=== PATIENT | male | born 1950 | race Caucasian/White ===

== ENCOUNTER 2016-09-09 06:20 | Emergency (ER) | payer MEDICARE ==
[2016-09-09] MEDS ORDERED: RX INFO: IV CONTRAST WAS GIVEN 1 EACH MISC MISCELLANE PRN (07:46)
[2016-09-09] MEDS ORDERED: SODIUM CHLORIDE 0.9% 1,000 ML IV STA ×3 (07:46→10:16)
[2016-09-09] MEDS ORDERED: MORPHINE SULFATE 4 MG/ML SYRINGE IV STA (07:46)
--- NOTE | 2016-09-09 07:58 | ED ---
General Adult HPI - General Chief complaint: Abdominal Pain Stated complaint: Male Time Seen by Provider: 09/09/16 07:19 Source: patient, RN notes reviewed, old records reviewed Mode of arrival: wheelchair Limitations: no limitations - History of Present Illness Initial comments: This is a 66 male to the ED co abdominal pain, anterior and right groin pain, patient has difficulty with urination and bowel movements at this time, no surgiccal or prostate history, history of normal colonoscopy -: days(s) (2) Location: abdomen, pelvis Radiation: flank (l) Severity scale (1-10): 6 Quality: aching, sharp Consistency: constant Improves with: none Worsens with: eating Associated Symptoms: loss of appetite, nausea/vomiting Treatments Prior to Arrival: none - Related Data Home Medications Medication Instructions Recorded Confirmed Aspirin 325 mg PO DAILY 03/09/14 09/09/16 Fenofibrate 160 mg PO HS 03/09/14 09/09/16 Nadolol [Corgard] 20 mg PO BID 03/09/14 09/09/16 Nitroglycerin Sl Tabs [Nitrostat] 0.4 mg SUBLINGUAL Q5M PRN 03/09/14 09/09/16 Omeprazole [PriLOSEC] 20 mg PO HS 03/09/14 09/09/16 Zolpidem [Ambien] 5 mg PO HS PRN 12/10/14 09/09/16 amLODIPine [Norvasc] 2.5 mg PO DAILY 12/10/14 09/09/16 Atorvastatin [Lipitor] 80 mg PO HS 05/08/15 09/09/16 Fluticasone/Salmeterol [Advair 1 puff INHALATION RT-BID 05/08/15 09/09/16 250-50 Diskus] Pramipexole Di-HCl [Mirapex] 1 mg PO HS 05/08/15 09/09/16 Furosemide [Lasix] 40 mg PO DAILY@1830 09/09/16 09/09/16 Furosemide [Lasix] 80 mg PO QAM 09/09/16 09/09/16 Ipratropium-Albuterol Nebulize 3 ml INHALATION RT-QID 09/09/16 09/09/16 [Duoneb 0.5 mg-3 mg/3 ml Soln] methylPREDNISolone [Medrol] 4 mg PO DAILY 09/09/16 09/09/16 Allergies Allergy/AdvReac Type Severity Reaction Status Date / Time prednisone AdvReac "MADE ME Verified 09/09/16 07:48 VERY ANGRY" Review of Systems ROS Statement: Those systems with pertinent positive or pertinent negative responses have been documented in the HPI. ROS Other: All systems not noted in ROS Statement are negative. Past Medical History Past Medical History: Coronary Artery Disease (CAD), COPD, GERD/Reflux, Hyperlipidemia, Hypertension, Osteoarthritis (OA) Additional Past Medical History / Comment(s): STATES WAS TOLD FROM MRI SMALL VESSEL DX. History of Any Multi-Drug Resistant Organisms: None Reported Past Surgical History: Back Surgery, Heart Catheterization With Stent, Joint Replacement, Orthopedic Surgery Additional Past Surgical History / Comment(s): TOTAL LEFT KNEE, FELIPE KNEE ARTHROSCOPY, rt shoulder replacement, HEART STENT X3, Past Anesthesia/Blood Transfusion Reactions: No Reported Reaction Additional Past Anesthesia/Blood Transfusion Reaction / Comment(s): STATES "HAD A HARD TIME WITH BREATHING POST OP" Date of Last Stent Placement:: 2009 Past Psychological History: No Psychological Hx Reported Smoking Status: Former smoker - Past Family History Father Family Medical History: CVA/TIA, Hyperlipidemia, Hypertension Mother Family Medical History: Hypertension General Exam Limitations: no limitations General appearance: alert, in no apparent distress Head exam: Present: atraumatic, normocephalic, normal inspection Eye exam: Present: normal appearance, PERRL, EOMI. Absent: scleral icterus, conjunctival injection, periorbital swelling ENT exam: Present: normal exam, mucous membranes moist Neck exam: Present: normal inspection. Absent: tenderness, meningismus, lymphadenopathy Respiratory exam: Present: normal lung sounds bilaterally. Absent: respiratory distress, wheezes, rales, rhonchi, stridor Cardiovascular Exam: Present: regular rate, normal rhythm, normal heart sounds. Absent: systolic murmur, diastolic murmur, rubs, gallop, clicks GI/Abdominal exam: Present: soft, distended, tenderness, normal bowel sounds. Absent: guarding, rebound, rigid Extremities exam: Present: normal inspection, full ROM, normal capillary refill. Absent: tenderness, pedal edema, joint swelling, calf tenderness Back exam: Present: normal inspection Neurological exam: Present: alert, oriented X3, CN II-XII intact Psychiatric exam: Present: normal affect, normal mood Skin exam: Present: warm, dry, intact, normal color. Absent: rash Course Vital Signs 09/09/16 09/09/16 06:24 09:32 Temperature 97.0 F L 97.7 F Pulse Rate 55 L 63 Respiratory 20 20 Rate Blood Pressure 123/61 123/65 O2 Sat by Pulse 93 L 94 L Oximetry Medical Decision Making - Medical Decision Making 66 LDR for evaluation of bowel pain, severe urinary retention, likely prostate issues, patient doesn't for placed with good urinary output. Patient will be given a bowel regimen to help with constipation secondary to urinary retention and patient can be discharged home - Lab Data Result diagrams: 09/09/16 08:05 09/09/16 08:05 Lab Results 09/09/16 09/09/16 09/09/16 Range/Units 08:05 08:05 08:05 WBC 12.9 H (3.8-10.6) k/uL RBC 4.32 (4.30-5.90) m/uL Hgb 13.7 (13.0-17.5) gm/dL Hct 41.9 (39.0-53.0) % MCV 97.0 (80.0-100.0) fL MCH 31.8 (25.0-35.0) pg MCHC 32.7 (31.0-37.0) g/dL RDW 13.5 (11.5-15.5) % Plt Count 213 (150-450) k/uL Neutrophils % 77 % Lymphocytes % 15 % Monocytes % 5 % Eosinophils % 1 % Basophils % 0 % Neutrophils # 10.0 H (1.3-7.7) k/uL Lymphocytes # 1.9 (1.0-4.8) k/uL Monocytes # 0.7 (0-1.0) k/uL Eosinophils # 0.1 (0-0.7) k/uL Basophils # 0.0 (0-0.2) k/uL Sodium 135 L (137-145) mmol/L Potassium 4.0 (3.5-5.1) mmol/L Chloride 94 L (98-107) mmol/L Carbon Dioxide 31 H (22-30) mmol/L Anion Gap 10 mmol/L BUN 32 H (9-20) mg/dL Creatinine 0.94 (0.66-1.25) mg/dL Est GFR (MDRD) Af Amer >60 (>60 ml/min/1.73 sqM) Est GFR (MDRD) Non-Af >60 (>60 ml/min/1.73 sqM) Glucose 173 H (74-99) mg/dL Calcium 9.0 (8.4-10.2) mg/dL Total Bilirubin 1.0 (0.2-1.3) mg/dL AST 34 (17-59) U/L ALT 46 (21-72) U/L Alkaline Phosphatase 76 (38-126) U/L Total Creatine Kinase 109 (55-170) U/L CK-MB (CK-2) 2.0 (0.0-2.4) ng/mL CK-MB (CK-2) Rel Index 1.8 Troponin I <0.012 (0.000-0.034) ng/mL Total Protein 6.6 (6.3-8.2) g/dL Albumin 3.8 (3.5-5.0) g/dL Amylase 44 (30-110) U/L Lipase 132 (23-300) U/L Urine Color Urine Appearance (Clear) Urine pH (5.0-8.0) Ur Specific [place] (1.001-1.035) Urine Protein (Negative) Urine Glucose (UA) (Negative) Urine Ketones (Negative) Urine Blood (Negative) Urine Nitrite (Negative) Urine Bilirubin (Negative) Urine Urobilinogen (<2.0) mg/dL Ur Leukocyte Esterase (Negative) 09/09/16 Range/Units 08:20 WBC (3.8-10.6) k/uL RBC (4.30-5.90) m/uL Hgb (13.0-17.5) gm/dL Hct (39.0-53.0) % MCV (80.0-100.0) fL MCH (25.0-35.0) pg MCHC (31.0-37.0) g/dL RDW (11.5-15.5) % Plt Count (150-450) k/uL Neutrophils % % Lymphocytes % % Monocytes % % Eosinophils % % Basophils % % Neutrophils # (1.3-7.7) k/uL Lymphocytes # (1.0-4.8) k/uL Monocytes # (0-1.0) k/uL Eosinophils # (0-0.7) k/uL Basophils # (0-0.2) k/uL Sodium (137-145) mmol/L Potassium (3.5-5.1) mmol/L Chloride (98-107) mmol/L Carbon Dioxide (22-30) mmol/L Anion Gap mmol/L BUN (9-20) mg/dL Creatinine (0.66-1.25) mg/dL Est GFR (MDRD) Af Amer (>60 ml/min/1.73 sqM) Est GFR (MDRD) Non-Af (>60 ml/min/1.73 sqM) Glucose (74-99) mg/dL Calcium (8.4-10.2) mg/dL Total Bilirubin (0.2-1.3) mg/dL AST (17-59) U/L ALT (21-72) U/L Alkaline Phosphatase (38-126) U/L Total Creatine Kinase (55-170) U/L CK-MB (CK-2) (0.0-2.4) ng/mL CK-MB (CK-2) Rel Index Troponin I (0.000-0.034) ng/mL Total Protein (6.3-8.2) g/dL Albumin (3.5-5.0) g/dL Amylase (30-110) U/L Lipase (23-300) U/L Urine Color Light Yellow Urine Appearance Clear (Clear) Urine pH 7.0 (5.0-8.0) Ur Specific [place] 1.008 (1.001-1.035) Urine Protein Negative (Negative) Urine Glucose (UA) Negative (Negative) Urine Ketones Negative (Negative) Urine Blood Negative (Negative) Urine Nitrite Negative (Negative) Urine Bilirubin Negative (Negative) Urine Urobilinogen <2.0 (<2.0) mg/dL Ur Leukocyte Esterase Negative (Negative) - Radiology Data Radiology results: report reviewed (CT pelvis is significant for significantly distended bladder and constipation due to bladder intrusion), image reviewed Disposition Clinical Impression: Abdominal pain, Urinary retention, Constipation Disposition: HOME SELF-CARE Condition: Good Instructions: Urinary Retention in Men (ED) Referrals: Rk Keene III, MD [Primary Care Provider] - 1-2 days
[2016-09-09 08:22] LABS: Basophils % (A) 0 %; CH 32.9; Eosinophils # (A) 0.1 k/uL (0-0.7); Eosinophils % (A) 1 %; HCT 41.9 % (39.0-53.0); HDW 2.48; HGB 13.7 gm/dL (13.0-17.5); Luc # (Auto) 0.17; Luc % (Auto) 1; Lymphocytes # (A) 1.9 k/uL (1.0-4.8); Lymphocytes % (A) 15 %; MCH 31.8 pg (25.0-35.0); MCHC 32.7 g/dL (31.0-37.0); Mean Platelet Volume 9.6; Monocytes # (A) 0.7 k/uL (0-1.0); Monocytes % (A) 5 %; Neutrophils % (A) 77 %; RBC 4.32 m/uL (4.30-5.90); RDW 13.5 % (11.5-15.5); WBC 12.9 k/uL (3.8-10.6); WBC (Perox) 12.78
[2016-09-09 08:31] LABS: Appearance,Urine Clear (Clear); Bilirubin,Urine Negative (Negative); Glucose,Urine (UA) Negative (Negative); Ketones,Urine Negative (Negative); Leukocyte Esterase,Urine Negative (Negative); Nitrite,Urine Negative (Negative); Protein,Urine Negative (Negative); Specific Gravity,Urine 1.008 (1.001-1.035); UA Billing (MACRO vs. MICRO) CHEM; Urobilinogen,Urine <2.0 mg/dL (<2.0)
[2016-09-09 08:39] LABS: ALT 46 U/L (21-72); AST 34 U/L (17-59); Alkaline Phosphatase 76 U/L (38-126); Amylase 44 U/L (30-110); Anion Gap 10 mmol/L; Blood Urea Nitrogen 32 mg/dL (9-20); Carbon Dioxide 31 mmol/L (22-30); Chloride 94 mmol/L (98-107); Glucose 173 mg/dL (74-99); Non-African American GFR(MDRD) >60 (>60 ml/min/1.73 sqM); Sodium 135 mmol/L (137-145); Total Protein 6.6 g/dL (6.3-8.2)
[2016-09-09 08:44] LABS: Creatine Kinase 109 U/L (55-170)
[2016-09-09 08:57] LABS: Troponin I <0.012 ng/mL (0.000-0.034)
--- NOTE | 2016-09-09 09:39 | CT ---
EXAMINATION TYPE: CT abdomen pelvis w con DATE OF EXAM: 09/09/2016 COMPARISON: NONE HISTORY: Dysuria, constipation, pain CT DLP: 3125.1 mGycm Automated exposure control for dose reduction was used. CONTRAST: CT scan of the abdomen pelvis is performed with IV Contrast, patient injected with 100 mL of Omnipaqu e 300. FINDINGS- LUNG BASES-subsegmental linear changes involving the lung bases most typical of atelectasis. LIVER/GB-reduced attenuation of the liver compatible with fatty infiltration. No gallstones. PANCREAS- No gross abnormality is seen. SPLEEN- No gross abnormality is seen. ADRENALS- No gross abnormality is seen. KIDNEYS/BLADDER- no hydronephrosis nephrolithiasis or renal mass. Bladder is distended. BOWEL-extensive retained fecal debris throughout the colon correlate for constipation. Diverticulosis with no CT evidence of diverticulitis. Appendix normal. LYMPH NODES- No greater than 1cm abdominal or pelvic lymph nodes areappreciated. OSSEOUS STRUCTURES-degenerative changes spine with multilevel vacuum disc seen. OTHER- fat-containing periumbilical hernia. IMPRESSION- 1. Extensive retained fecal debris throughout the colon correlate for constipation. 2. Bladder is distended correlate clinically.
[2016-09-09] MEDS ORDERED: SENNOSIDES-DOCUSATE SODIUM 1 EACH TAB PO STA (10:15)
[2016-09-09] MEDS ORDERED: GLYCERIN ADULT SUPPOSITORY 1 EACH RECTAL STA (10:15)
[2016-09-09] MEDS ORDERED: MAGNESIUM CITRATE 296 ML BOTTLE PO ONE (10:15)
[2016-09-09 11:17] VITALS: BP 109/60; PULSE 62; RESP 16; TEMP 97
[2016-09-10 21:58] LABS: Hemoglobin A1C 9.7 % (4.2-6.1)
== END 2016-09-09 11:49 | disposition home or self-care (01) ==
LOC: EC 06:20
DX: K59.00 Constipation, unspecified (principal); R33.9 Retention of urine, unspecified; N32.89 Other specified disorders of bladder; R11.2 Nausea with vomiting, unspecified; R63.0 Anorexia; R10.2 Pelvic and perineal pain; E78.5 Hyperlipidemia, unspecified; I10 Essential (primary) hypertension; I25.10 Atherosclerotic heart disease of native coronary artery without angina pectoris; K21.9 Gastro-esophageal reflux disease without esophagitis; J44.9 Chronic obstructive pulmonary disease, unspecified; M19.90 Unspecified osteoarthritis, unspecified site; Z87.891 Personal history of nicotine dependence; Z79.82 Long term (current) use of aspirin; Z79.51 Long term (current) use of inhaled steroids; Z79.52 Long term (current) use of systemic steroids; Z79.899 Other long term (current) drug therapy; Z88.8 Allergy status to other drugs, medicaments and biological substances
CPT/HCPCS: 36415; 80053; 82150; 83036; 82550; 82553; 83690; 84484; 85025; 81003; 87086; 74177; 99285; 96374; 96361 ×3; J2270; Q9967

== ENCOUNTER → 2016-09-18 | Outpatient (CLI) | payer MEDICARE ==
[2016-09-18 10:14] LABS: CH 32.2; CHCM 33.5; HCT 45.6 % (39.0-53.0); HGB 14.8 gm/dL (13.0-17.5); MCH 31.4 pg (25.0-35.0); MCHC 32.5 g/dL (31.0-37.0); MCV 96.6 fL (80.0-100.0); Mean Platelet Volume 9.5; RBC 4.72 m/uL (4.30-5.90); RDW 13.2 % (11.5-15.5); WBC 11.9 k/uL (3.8-10.6)
[2016-09-18 10:26] LABS: Anion Gap 14 mmol/L; Blood Urea Nitrogen 38 mg/dL (9-20); Calcium 9.4 mg/dL (8.4-10.2); Carbon Dioxide 29 mmol/L (22-30); Chloride 96 mmol/L (98-107); Glucose 198 mg/dL (74-99); Non-African American GFR(MDRD) >60 (>60 ml/min/1.73 sqM); Potassium 4.1 mmol/L (3.5-5.1); Sodium 139 mmol/L (137-145)
== END | disposition home or self-care (01) ==
LOC: LABWHC1 09:43
PROVIDERS: ATTEND Internal Medicine Interventional Cardiology
DX: N18.9 Chronic kidney disease, unspecified (principal)
CPT/HCPCS: 36415; 80048; 85027

== ENCOUNTER 2016-09-22 14:02 | Inpatient (IN) | payer MEDICARE ==
--- NOTE | 2016-09-22 14:13 | ED ---
General Adult HPI - General Stated complaint: heart palpitations Time Seen by Provider: 09/22/16 14:02 Source: RN notes reviewed - History of Present Illness Initial comments: This is a 66-year-old male with a past medical history significant for coronary artery stenting hypertension high cholesterol. Patient also has COPD. Patient comes in today complaining of not feeling well over the last 3 days. Patient states occasionally gets palpitations. Patient states she also occasionally short of breath. Patient states he usually wakes up in the middle the night feels like he can't catch his breath but shortly thereafter he is able to breathe fine. Patient states his biggest problem is just extremely weak and feels like he has no inpatient. Patient denies any cough patient denies any recent fever chills. Patient denies abdominal pain patient denies nausea vomiting diarrhea. Patient denies lightheadedness dizziness or near syncopal episode. Patient's friend came with him and stated that she thought his heart rate was in the 30s and that was her reason for bringing him in. - Related Data Home Medications Medication Instructions Recorded Confirmed Aspirin 325 mg PO DAILY 03/09/14 09/22/16 Fenofibrate 160 mg PO HS 03/09/14 09/22/16 Nadolol [Corgard] 20 mg PO BID 03/09/14 09/22/16 Nitroglycerin Sl Tabs [Nitrostat] 0.4 mg SUBLINGUAL Q5M PRN 03/09/14 09/22/16 Omeprazole [PriLOSEC] 20 mg PO HS 03/09/14 09/22/16 Zolpidem [Ambien] 5 mg PO HS PRN 12/10/14 09/22/16 amLODIPine [Norvasc] 2.5 mg PO DAILY 12/10/14 09/22/16 Atorvastatin [Lipitor] 80 mg PO DAILY 05/08/15 09/22/16 Fluticasone/Salmeterol [Advair 1 puff INHALATION RT-BID 05/08/15 09/22/16 250-50 Diskus] Pramipexole Di-HCl [Mirapex] 1 mg PO HS 05/08/15 09/22/16 Ipratropium-Albuterol Nebulize 3 ml INHALATION RT-QID 09/09/16 09/22/16 [Duoneb 0.5 mg-3 mg/3 ml Soln] methylPREDNISolone [Medrol] 4 mg PO DAILY 09/09/16 09/22/16 Furosemide [Lasix] 80 mg PO BID 09/22/16 09/22/16 Methocarbamol [Robaxin] 750 mg PO Q8H PRN 09/22/16 09/22/16 Metolazone [Zaroxolyn] 5 mg PO HS 09/22/16 09/22/16 Polyethylene Glycol 3350 [Miralax] 17 gm PO DAILY PRN 09/22/16 09/22/16 Allergies Allergy/AdvReac Type Severity Reaction Status Date / Time prednisone AdvReac "MADE ME Verified 09/22/16 14:43 VERY ANGRY" Review of Systems ROS Statement: Those systems with pertinent positive or pertinent negative responses have been documented in the HPI. ROS Other: All systems not noted in ROS Statement are negative. Past Medical History Past Medical History: Coronary Artery Disease (CAD), COPD, GERD/Reflux, Hyperlipidemia, Hypertension, Osteoarthritis (OA) Additional Past Medical History / Comment(s): STATES WAS TOLD FROM MRI SMALL VESSEL DX. History of Any Multi-Drug Resistant Organisms: None Reported Past Surgical History: Back Surgery, Heart Catheterization With Stent, Joint Replacement, Orthopedic Surgery Additional Past Surgical History / Comment(s): TOTAL LEFT KNEE, FELIPE KNEE ARTHROSCOPY, rt shoulder replacement, HEART STENT X3, Past Anesthesia/Blood Transfusion Reactions: No Reported Reaction Additional Past Anesthesia/Blood Transfusion Reaction / Comment(s): STATES "HAD A HARD TIME WITH BREATHING POST OP" Date of Last Stent Placement:: 2009 Past Psychological History: No Psychological Hx Reported Smoking Status: Former smoker - Past Family History Father Family Medical History: CVA/TIA, Hyperlipidemia, Hypertension Mother Family Medical History: Hypertension General Exam - General Exam Comments Initial Comments: GENERAL: Patient is well-developed and well-nourished. Patient is nontoxic and well- hydrated and is in mild distress. ENT: Neck is soft and supple. No significant lymphadenopathy is noted. Oropharynx is clear. Moist mucous membranes. Neck has full range of motion without eliciting any pain. EYES: The sclera were anicteric and conjunctiva were pink and moist. Extraocular movements were intact and pupils were equal round and reactive to light. Eyelids were unremarkable. PULMONARY: Unlabored respirations. Good breath sounds bilaterally. No audible rales rhonchi or wheezing was noted. CARDIOVASCULAR: There is a regular rate and rhythm without any murmurs gallops or rubs. ABDOMEN: Soft and nontender with normal bowel sounds. No palpable organomegaly was noted. There is no palpable pulsatile mass. SKIN: Skin is clear with no lesions or rashes and otherwise unremarkable. NEUROLOGIC: Patient is alert and oriented x3. Cranial nerves II through XII are grossly intact. Motor and sensory are also intact. Normal speech, volume and content. Symmetrical smile. MUSCULOSKELETAL: Normal extremities with adequate strength and full range of motion. 1+ edema bilaterally LYMPHATICS: No significant lymphadenopathy is noted PSYCHIATRIC: Normal psychiatric evaluation. Normal interpersonal interactions appears functionally intact in deals appropriately with others. No signs of depression. No signs of anxiety. Course Vital Signs 09/22/16 09/22/16 09/22/16 14:13 14:15 15:20 Temperature 97.4 F L Pulse Rate 61 60 Pulse Rate [ 60 Right Radial] Respiratory 18 18 Rate Blood Pressure 155/77 155/77 O2 Sat by Pulse 93 L 96 Oximetry Medical Decision Making - Medical Decision Making EKG shows normal sinus rhythm at 61 bpm [place] interval is 140 QRS is 114 QT interval 470 QTC is 89 year patient's EKG shows no ST segment elevation or depression Chest x-ray showed no acute abnormality. Patient potassium 2.5. I given 10 of KCl IV and 40 Of Queenie Dur by mouth. I spoke with Dr. Huertas he agreed to admit the patient admitted the patient I wrote admitting orders - Lab Data Result diagrams: 09/22/16 14:18 09/22/16 14:18 Lab Results 09/22/16 09/22/16 09/22/16 Range/Units 14:18 14:18 14:18 WBC 11.9 H (3.8-10.6) k/uL RBC 4.81 (4.30-5.90) m/uL Hgb 15.4 (13.0-17.5) gm/dL Hct 43.9 (39.0-53.0) % MCV 91.3 D (80.0-100.0) fL MCH 32.0 (25.0-35.0) pg MCHC 35.0 (31.0-37.0) g/dL RDW 13.2 (11.5-15.5) % Plt Count 209 (150-450) k/uL Neutrophils % 70 % Lymphocytes % 21 % Monocytes % 6 % Eosinophils % 1 % Basophils % 1 % Neutrophils # 8.3 H (1.3-7.7) k/uL Lymphocytes # 2.6 (1.0-4.8) k/uL Monocytes # 0.7 (0-1.0) k/uL Eosinophils # 0.1 (0-0.7) k/uL Basophils # 0.1 (0-0.2) k/uL PT (9.0-12.0) sec INR (<1.1) APTT (22.0-30.0) sec Sodium 130 L (137-145) mmol/L Potassium 2.5 L* (3.5-5.1) mmol/L Chloride 80 L* (98-107) mmol/L Carbon Dioxide 35 H (22-30) mmol/L Anion Gap 15 mmol/L BUN 81 H* (9-20) mg/dL Creatinine 1.34 H (0.66-1.25) mg/dL Est GFR (MDRD) Af Amer >60 (>60 ml/min/1.73 sqM) Est GFR (MDRD) Non-Af 53 (>60 ml/min/1.73 sqM) Glucose 340 H (74-99) mg/dL Calcium 9.5 (8.4-10.2) mg/dL Total Bilirubin 1.0 (0.2-1.3) mg/dL AST 32 (17-59) U/L ALT 50 (21-72) U/L Alkaline Phosphatase 70 (38-126) U/L Total Creatine Kinase 58 (55-170) U/L CK-MB (CK-2) 1.0 (0.0-2.4) ng/mL CK-MB (CK-2) Rel Index 1.7 Troponin I <0.012 (0.000-0.034) ng/mL NT-Pro-B Natriuret Pep pg/mL Total Protein 7.2 (6.3-8.2) g/dL Albumin 4.2 (3.5-5.0) g/dL 09/22/16 09/22/16 Range/Units 14:18 14:18 WBC (3.8-10.6) k/uL RBC (4.30-5.90) m/uL Hgb (13.0-17.5) gm/dL Hct (39.0-53.0) % MCV (80.0-100.0) fL MCH (25.0-35.0) pg MCHC (31.0-37.0) g/dL RDW (11.5-15.5) % Plt Count (150-450) k/uL Neutrophils % % Lymphocytes % % Monocytes % % Eosinophils % % Basophils % % Neutrophils # (1.3-7.7) k/uL Lymphocytes # (1.0-4.8) k/uL Monocytes # (0-1.0) k/uL Eosinophils # (0-0.7) k/uL Basophils # (0-0.2) k/uL PT 10.6 (9.0-12.0) sec INR 1.0 (<1.1) APTT 19.3 L (22.0-30.0) sec Sodium (137-145) mmol/L Potassium (3.5-5.1) mmol/L Chloride (98-107) mmol/L Carbon Dioxide (22-30) mmol/L Anion Gap mmol/L BUN (9-20) mg/dL Creatinine (0.66-1.25) mg/dL Est GFR (MDRD) Af Amer (>60 ml/min/1.73 sqM) Est GFR (MDRD) Non-Af (>60 ml/min/1.73 sqM) Glucose (74-99) mg/dL Calcium (8.4-10.2) mg/dL Total Bilirubin (0.2-1.3) mg/dL AST (17-59) U/L ALT (21-72) U/L Alkaline Phosphatase (38-126) U/L Total Creatine Kinase (55-170) U/L CK-MB (CK-2) (0.0-2.4) ng/mL CK-MB (CK-2) Rel Index Troponin I (0.000-0.034) ng/mL NT-Pro-B Natriuret Pep 310 pg/mL Total Protein (6.3-8.2) g/dL Albumin (3.5-5.0) g/dL Disposition Clinical Impression: Palpitations, Hypokalemia, Weakness Disposition: ADMITTED IP TO THIS HOSP Referrals: Rk Keene III, MD [Primary Care Provider] - 1-2 days Time of Disposition: 15:33
[2016-09-22 14:37] LABS: Basophils # (A) 0.1 k/uL (0-0.2); Basophils % (A) 1 %; CH 32.8; CHCM 36.1; Eosinophils # (A) 0.1 k/uL (0-0.7); Eosinophils % (A) 1 %; HCT 43.9 % (39.0-53.0); HDW 2.62; HGB 15.4 gm/dL (13.0-17.5); Luc # (Auto) 0.16; Luc % (Auto) 1; Lymphocytes # (A) 2.6 k/uL (1.0-4.8); Lymphocytes % (A) 21 %; Mean Platelet Volume 10.5; Monocytes # (A) 0.7 k/uL (0-1.0); Monocytes % (A) 6 %; Neutrophils # (A) 8.3 k/uL (1.3-7.7); Neutrophils % (A) 70 %; RBC 4.81 m/uL (4.30-5.90); RDW 13.2 % (11.5-15.5); WBC 11.9 k/uL (3.8-10.6); WBC (Perox) 11.46
[2016-09-22 14:43] LABS: MCV 91.3 fL (80.0-100.0)
[2016-09-22 14:48] LABS: ALT 50 U/L (21-72); AST 32 U/L (17-59); Alkaline Phosphatase 70 U/L (38-126); Anion Gap 15 mmol/L; Calcium 9.5 mg/dL (8.4-10.2); Carbon Dioxide 35 mmol/L (22-30); Glucose 340 mg/dL (74-99); Non-African American GFR(MDRD) 53 (>60 ml/min/1.73 sqM); Prothrombin Time 10.6 sec (9.0-12.0); Sodium 130 mmol/L (137-145); Total Protein 7.2 g/dL (6.3-8.2)
[2016-09-22 14:52] LABS: Potassium 2.5 mmol/L (3.5-5.1)
[2016-09-22 14:53] LABS: Blood Urea Nitrogen 81 mg/dL (9-20); Chloride 80 mmol/L (98-107)
[2016-09-22] MEDS ORDERED: POTASSIUM CHLORIDE ER 20 MEQ TAB.ER PO STA (14:55)
[2016-09-22 14:57] LABS: Creatine Kinase 58 U/L (55-170)
--- NOTE | 2016-09-22 14:59 | XR ---
EXAMINATION TYPE: XR chest 2V DATE OF EXAM: 09/22/2016 COMPARISON: 01/26/2016 HISTORY: Shortness of breath TECHNIQUE: Frontal and lateral views of the chest are obtained. FINDINGS: Scattered senescent parenchymal changes noted. Hyperinflation compatible with COPD. No evidence for infiltrate. Linear atelectasis identified in the lateral projection in the region of the lingula or right middle lobe. Heart size is stable. Mediastinal structures are stable and grossly unremarkable. No evidence for hilar prominence. Degenerative changes dorsal spine. IMPRESSION: 1. No evidence for acute pulmonary disease.
[2016-09-22 15:03] LABS: Partial Thromboplastin Time 19.3 sec (22.0-30.0)
[2016-09-22] MEDS ORDERED: POTASSIUM CHLORIDE 10 MEQ in WATER FOR INJECTION 1 100ML.BAG IVPB STA (15:06)
[2016-09-22] MEDS ORDERED: POTASSIUM CHLORIDE 10 MEQ, LIDOCAINE 2% INJ 10 MG in SODIUM CHLORIDE 0.9% 100 ML IVPB STA (15:08)
[2016-09-22 15:10] LABS: Troponin I <0.012 ng/mL (0.000-0.034)
[2016-09-22 17:00] LABS: Glucose,Whole Blood 227 mg/dL (75-99)
[2016-09-22] MEDS ORDERED: NITROGLYCERIN SL TABS 0.4 MG TAB SUBLINGUAL PRN (17:42)
[2016-09-22] MEDS ORDERED: ZOLPIDEM 5 MG TAB PO PRN (17:42)
[2016-09-22] MEDS ORDERED: METHOCARBAMOL 750 MG TAB PO PRN (17:42)
[2016-09-22] MEDS ORDERED: IPRATROPIUM-ALBUTEROL 3 ML NEB INHALATION PRN (17:49)
[2016-09-22] MEDS ORDERED: Magnesium Replacement Protocol 1 EACH MISC MISCELLANE PRN (17:51)
[2016-09-22] MEDS ORDERED: Potassium Replacement Protocol 1 EACH MISC MISCELLANE PRN ×2 (17:51→20:08)
[2016-09-22] MEDS: SYMBICORT 80-4.5 MCG INHALER INHALATION SCH (19:31)
[2016-09-22] MEDS: IPRATROPIUM-ALBUTEROL 3 ML NEB INHALATION SCH (19:31)
[2016-09-22 19:43] LABS: Magnesium 1.9 mg/dL (1.6-2.3)
[2016-09-22 19:52] LABS: Potassium 2.7 mmol/L (3.5-5.1)
[2016-09-22] MEDS ORDERED: POTASSIUM CHLORIDE 10 MEQ in WATER FOR INJECTION 1 100ML.BAG IVPB SCH (20:30)
[2016-09-22 20:38] LABS: Hemoglobin A1C 9.9 % (4.2-6.1)
[2016-09-22] MEDS: INSULIN LISPRO (humaLOG) 300 UNIT/3 ML VIAL SQ SCH (20:52)
[2016-09-22] MEDS: NADOLOL 20 MG TAB PO SCH (20:53)
[2016-09-22] MEDS: PANTOPRAZOLE 40 MG TABLET PO SCH (20:53)
[2016-09-22] MEDS: PRAMIPEXOLE 1 MG TAB PO SCH (20:53)
[2016-09-22] MEDS: FENOFIBRATE 160 MG TAB PO SCH (20:53)
[2016-09-22 21:01] LABS: Glucose,Whole Blood 304 mg/dL (75-99)
[2016-09-22] MEDS: POTASSIUM CHLORIDE 10 MEQ, LIDOCAINE 2% INJ 10 MG in SODIUM CHLORIDE 0.9% 100 ML IV SCH ×3 (21:27→23:28)
[2016-09-23 01:06] LABS: Glucose,Whole Blood 275 mg/dL (75-99)
[2016-09-23] MEDS ORDERED: POTASSIUM CHLORIDE ER 20 MEQ TAB.ER PO STA (01:51)
[2016-09-23] MEDS: POTASSIUM CHLORIDE 20 MEQ, LIDOCAINE 2% INJ 20 MG in SODIUM CHLORIDE 0.9% 100 ML IVPB SCH ×2 (02:30→04:06)
[2016-09-23 03:49] LABS: Appearance,Urine Clear (Clear); Bilirubin,Urine Negative (Negative); Glucose,Urine (UA) Negative (Negative); Ketones,Urine Negative (Negative); Leukocyte Esterase,Urine Negative (Negative); Nitrite,Urine Negative (Negative); PH, Urine 6.5 (5.0-8.0); Protein,Urine Negative (Negative); Specific Gravity,Urine 1.009 (1.001-1.035); UA Billing (MACRO vs. MICRO) CHEM; Urobilinogen,Urine <2.0 mg/dL (<2.0)
[2016-09-23] MEDS ORDERED: Potassium Replacement Protocol 1 EACH MISC MISCELLANE PRN (04:00)
[2016-09-23] MEDS: POTASSIUM CHLORIDE ER 20 MEQ TAB.ER PO SCH ×8 (04:06→12:32)
[2016-09-23 05:56] LABS: Glucose,Whole Blood 192 mg/dL (75-99)
[2016-09-23 06:19] LABS: Anion Gap 11 mmol/L; Blood Urea Nitrogen 71 mg/dL (9-20); Calcium 9.4 mg/dL (8.4-10.2); Carbon Dioxide 37 mmol/L (22-30); Chloride 86 mmol/L (98-107); Glucose 194 mg/dL (74-99); Magnesium 2.1 mg/dL (1.6-2.3); Non-African American GFR(MDRD) >60 (>60 ml/min/1.73 sqM); Sodium 134 mmol/L (137-145)
[2016-09-23 06:28] LABS: Basophils # (A) 0.1 k/uL (0-0.2); Basophils % (A) 1 %; CH 32.1; CHCM 34.9; Eosinophils # (A) 0.2 k/uL (0-0.7); Eosinophils % (A) 1 %; HDW 2.63; HGB 14.5 gm/dL (13.0-17.5); Large Platelets Flag Slight; Luc # (Auto) 0.25; Luc % (Auto) 3; Lymphocytes # (A) 2.5 k/uL (1.0-4.8); Lymphocytes % (A) 25 %; MCH 32.6 pg (25.0-35.0); MCHC 35.3 g/dL (31.0-37.0); MCV 92.3 fL (80.0-100.0); Mean Platelet Volume 10.1; Monocytes # (A) 0.6 k/uL (0-1.0); Monocytes % (A) 6 %; Neutrophils # (A) 6.5 k/uL (1.3-7.7); Neutrophils % (A) 65 %; RBC 4.44 m/uL (4.30-5.90); RDW 12.7 % (11.5-15.5); WBC 10.1 k/uL (3.8-10.6); WBC (Perox) 10.74
[2016-09-23 06:53] LABS: Potassium 2.9 mmol/L (3.5-5.1)
[2016-09-23] MEDS: INSULIN LISPRO (humaLOG) 300 UNIT/3 ML VIAL SQ SCH ×4 (07:07→21:06)
[2016-09-23] MEDS: NADOLOL 20 MG TAB PO SCH ×2 (08:02→21:06)
[2016-09-23] MEDS: amLODIPine 2.5 MG TAB PO SCH (08:02)
[2016-09-23] MEDS: ASPIRIN 325 MG TAB PO SCH (08:02)
[2016-09-23] MEDS: ATORVASTATIN 80 MG TAB PO SCH (08:03)
[2016-09-23] MEDS: IPRATROPIUM-ALBUTEROL 3 ML NEB INHALATION SCH ×4 (08:04→20:19)
[2016-09-23] MEDS: SYMBICORT 80-4.5 MCG INHALER INHALATION SCH ×2 (08:04→20:19)
[2016-09-23 10:36] VITALS: BMI 36.1
[2016-09-23 11:53] LABS: Glucose,Whole Blood 229 mg/dL (75-99)
[2016-09-23] MEDS ORDERED: POTASSIUM CHLORIDE ER 20 MEQ TAB.ER PO ONE (13:00)
[2016-09-23] MEDS ORDERED: traMADol 50 MG TAB PO PRN (13:14)
[2016-09-23] MEDS ORDERED: traMADol 50 MG TAB PO SCH (16:00)
[2016-09-23 17:02] LABS: Glucose,Whole Blood 174 mg/dL (75-99)
[2016-09-23 20:31] LABS: Glucose,Whole Blood 253 mg/dL (75-99)
[2016-09-23] MEDS: FENOFIBRATE 160 MG TAB PO SCH (21:06)
[2016-09-23] MEDS: PANTOPRAZOLE 40 MG TABLET PO SCH (21:06)
[2016-09-23] MEDS: PRAMIPEXOLE 1 MG TAB PO SCH (21:06)
[2016-09-24 06:16] LABS: Glucose,Whole Blood 239 mg/dL (75-99)
[2016-09-24] MEDS: INSULIN LISPRO (humaLOG) 300 UNIT/3 ML VIAL SQ SCH ×4 (06:38→21:11)
[2016-09-24] MEDS: ASPIRIN 325 MG TAB PO SCH (08:09)
[2016-09-24] MEDS: NADOLOL 20 MG TAB PO SCH ×2 (08:09→21:10)
[2016-09-24] MEDS: ATORVASTATIN 80 MG TAB PO SCH (08:09)
[2016-09-24] MEDS: amLODIPine 2.5 MG TAB PO SCH (08:09)
[2016-09-24] MEDS: SYMBICORT 80-4.5 MCG INHALER INHALATION SCH ×2 (08:21→19:46)
[2016-09-24] MEDS: IPRATROPIUM-ALBUTEROL 3 ML NEB INHALATION SCH ×4 (08:21→19:46)
[2016-09-24 10:37] LABS: ALT 69 U/L (21-72); AST 39 U/L (17-59); Alkaline Phosphatase 59 U/L (38-126); Anion Gap 11 mmol/L; Blood Urea Nitrogen 44 mg/dL (9-20); Calcium 9.5 mg/dL (8.4-10.2); Carbon Dioxide 32 mmol/L (22-30); Chloride 92 mmol/L (98-107); Glucose 276 mg/dL (74-99); Magnesium 1.8 mg/dL (1.6-2.3); Non-African American GFR(MDRD) >60 (>60 ml/min/1.73 sqM); Potassium 3.1 mmol/L (3.5-5.1); Sodium 135 mmol/L (137-145); Total Bilirubin 0.9 mg/dL (0.2-1.3); Total Protein 6.5 g/dL (6.3-8.2)
[2016-09-24 11:56] LABS: Glucose,Whole Blood 346 mg/dL (75-99)
[2016-09-24] MEDS: POTASSIUM CHLORIDE ER 20 MEQ TAB.ER PO SCH ×2 (12:00→13:05)
[2016-09-24] MEDS ORDERED: INSULIN GLARGINE 100 UNIT/ML 10 ML VIAL SQ ONE (12:09)
[2016-09-24] MEDS: FUROSEMIDE 40 MG TAB PO SCH (16:29)
[2016-09-24 16:47] LABS: Glucose,Whole Blood 268 mg/dL (75-99)
[2016-09-24] MEDS ORDERED: POTASSIUM CHLORIDE ER 20 MEQ TAB.ER PO SCH (19:00)
[2016-09-24] MEDS ORDERED: INSULIN GLARGINE 100 UNIT/ML 10 ML VIAL SQ SCH (21:00)
[2016-09-24 21:07] LABS: Glucose,Whole Blood 232 mg/dL (75-99)
[2016-09-24] MEDS: PRAMIPEXOLE 1 MG TAB PO SCH (21:10)
[2016-09-24] MEDS: PANTOPRAZOLE 40 MG TABLET PO SCH (21:10)
[2016-09-24] MEDS: FENOFIBRATE 160 MG TAB PO SCH (21:10)
[2016-09-25] MEDS: POTASSIUM CHLORIDE ER 20 MEQ TAB.ER PO SCH ×4 (01:22→09:58)
[2016-09-25 04:25] VITALS: TEMP 97.1
[2016-09-25 05:50] LABS: Glucose,Whole Blood 139 mg/dL (75-99)
[2016-09-25 06:45] LABS: Glucose,Whole Blood 138 mg/dL (75-99)
[2016-09-25] MEDS: INSULIN LISPRO (humaLOG) 300 UNIT/3 ML VIAL SQ SCH ×3 (07:05→17:15)
[2016-09-25 07:57] LABS: CH 32.2; CHCM 35.3; HCT 43.2 % (39.0-53.0); HDW 2.69; HGB 15.3 gm/dL (13.0-17.5); Large Platelets Flag Slight; MCH 32.5 pg (25.0-35.0); MCHC 35.5 g/dL (31.0-37.0); MCV 91.8 fL (80.0-100.0); RBC 4.71 m/uL (4.30-5.90); RDW 13.2 % (11.5-15.5); WBC 10.6 k/uL (3.8-10.6)
[2016-09-25 08:03] LABS: ALT 54 U/L (21-72); AST 42 U/L (17-59); Alkaline Phosphatase 61 U/L (38-126); Anion Gap 11 mmol/L; Blood Urea Nitrogen 38 mg/dL (9-20); Calcium 9.3 mg/dL (8.4-10.2); Carbon Dioxide 31 mmol/L (22-30); Chloride 95 mmol/L (98-107); Glucose 164 mg/dL (74-99); Magnesium 1.6 mg/dL (1.6-2.3); Non-African American GFR(MDRD) >60 (>60 ml/min/1.73 sqM); Potassium 3.3 mmol/L (3.5-5.1); Sodium 137 mmol/L (137-145); Total Bilirubin 0.8 mg/dL (0.2-1.3); Total Protein 7.1 g/dL (6.3-8.2)
[2016-09-25] MEDS: IPRATROPIUM-ALBUTEROL 3 ML NEB INHALATION SCH ×3 (08:05→15:34)
[2016-09-25] MEDS: SYMBICORT 80-4.5 MCG INHALER INHALATION SCH (08:05)
[2016-09-25] MEDS: ASPIRIN 325 MG TAB PO SCH (08:43)
[2016-09-25] MEDS: NADOLOL 20 MG TAB PO SCH (08:43)
[2016-09-25] MEDS: amLODIPine 2.5 MG TAB PO SCH (08:43)
[2016-09-25] MEDS: ATORVASTATIN 80 MG TAB PO SCH (08:43)
[2016-09-25] MEDS: FUROSEMIDE 40 MG TAB PO SCH ×2 (08:43→15:37)
[2016-09-25] MEDS: MAGNESIUM SULFATE-D5W PMX 1 GM in DEXTROSE/WATER 1 100ML.BAG IVPB SCH ×2 (08:44→09:58)
[2016-09-25 12:09] LABS: Glucose,Whole Blood 215 mg/dL (75-99)
[2016-09-25] MEDS ORDERED: POTASSIUM CHLORIDE ER 20 MEQ TAB.ER PO SCH (13:00)
[2016-09-25 15:39] VITALS: BP 128/68; RESP 16
[2016-09-25 16:18] VITALS: PULSE 80
[2016-09-25 16:58] LABS: Glucose,Whole Blood 237 mg/dL (75-99)
--- NOTE | 2016-09-25 22:14 | DS ---
FINAL DIAGNOSES: 1. Severe hypokalemia with electrolyte imbalance and weakness. 2. Palpitations, improved. 3. Hypokalemia. 4. Diabetes mellitus, type 2, new onset, uncontrolled. 5. History of coronary artery disease. 6. History of congestive heart failure with chronic diastolic dysfunction, possibly. 7. History of chronic obstructive pulmonary disease. 8. History of gastroesophageal reflux disease. 9. Hypertension, essential. 10. Hyperlipidemia. 11. History of degenerative joint disease. 12. Multiple complex medical issues. DISCHARGE DISPOSITION: The patient will be discharged in stable condition with guarded prognosis. Total time taken 35 minutes. HISTORY OF PRESENT ILLNESS: This 66-year-old gentleman with a past medical history of multiple medical problems, being followed by Dr. Keene in the outpatient setting, presented with severe hypokalemia. Potassium was supplemented; 2.9 improved to 3.3 and 3.6. The patient also had uncontrolled blood sugars. Hemoglobin A1c was 9.9. At this time, Lantus insulin was recommended with monitoring of blood sugar levels closely in the outpatient setting. On exam, vitals are stable. CARDIOVASCULAR: S1, S2 muffled. RESPIRATORY: Breath sounds diminished at the bases. No rhonchi. No crackles. ABDOMEN: Soft. NERVOUS SYSTEM: No focal deficit. DISCHARGE ADVICE AND MEDICATIONS: 1. Diet is consistent-carb. 2. Activity limited until followup. 3. Diabetic education is being arranged. 4. Accu-Cheks before meals and at bedtime; results to Dr. Keene. 5. Norvasc 2.5 mg daily. 6. Aspirin 325 mg daily. 7. Lipitor 80 mg daily. 8. Fenofibrate 160 mg at bedtime. 9. Advair 1 puff b.i.d. 10. Lasix 40 mg p.o. b.i.d. Please note changed dose. 11. Lantus 30 units subcutaneously at bedtime; hold if Accu-Chek less than 120. 12. Albuterol Atrovent updrafts q.i.d. and p.r.n. 13. Robaxin 750 mg p.o. q.8 p.r.n. 14. Medrol 4 mg p.o. daily. 15. Zaroxolyn 5 mg p.o. at bedtime. 16. Corgard 20 mg p.o. b.i.d. 17. Nitrostat 0.4 sublingually p.r.n. 18. Prilosec 20 mg p.o. at bedtime. 19. Miralax 17 grams daily. 20. K-Dur 40 mEq p.o. b.i.d. Adjust the dosage in the outpatient setting. 21. Mirapex 1 mg p.o. at bedtime. 22. Ambien 5 mg p.o. at bedtime p.r.n. Once again, the patient will be discharged in stable condition with guarded prognosis. MTDD
== END 2016-09-25 18:47 | disposition home or self-care (01) | DRG 641 ==
LOC: EC 14:02 → 6SEL 15:43 → OBSVTOIN 15:43 → INTOOBSV 15:43 → 6SEL 09-25 04:21
PROVIDERS: ADMIT Hospitalist; ATTEND Hospitalist
DX: E87.6 Hypokalemia (principal); I50.32 Chronic diastolic (congestive) heart failure; J44.9 Chronic obstructive pulmonary disease, unspecified; I11.0 Hypertensive heart disease with heart failure; E11.65 Type 2 diabetes mellitus with hyperglycemia; K21.9 Gastro-esophageal reflux disease without esophagitis; E78.5 Hyperlipidemia, unspecified; R53.1 Weakness; R00.2 Palpitations; M19.90 Unspecified osteoarthritis, unspecified site; E78.00 Pure hypercholesterolemia, unspecified; I25.10 Atherosclerotic heart disease of native coronary artery without angina pectoris; Z87.891 Personal history of nicotine dependence; Z82.49 Family history of ischemic heart disease and other diseases of the circulatory system; Z96.611 Presence of right artificial shoulder joint; Z95.5 Presence of coronary angioplasty implant and graft; Z79.899 Other long term (current) drug therapy; Z79.82 Long term (current) use of aspirin; Z79.51 Long term (current) use of inhaled steroids; Z88.8 Allergy status to other drugs, medicaments and biological substances; Z86.69 Personal history of other diseases of the nervous system and sense organs; Z82.3 Family history of stroke; Z96.652 Presence of left artificial knee joint; Z71.3 Dietary counseling and surveillance; Z79.52 Long term (current) use of systemic steroids
CPT/HCPCS: 36415; 71020; 80048; 80053; 81003; 82550; 82553; 83036; 83735; 83880; 84132; 84484; 85025; 85027; 85610; 85730; 93005; 94640; 94760; 96365; 99285

== ENCOUNTER 2016-10-09 14:07 | Emergency (ER) | payer MEDICARE ==
--- NOTE | 2016-10-09 14:22 | ED ---
General Adult HPI - General Chief complaint: Weakness Stated complaint: Weakness Time Seen by Provider: 10/09/16 14:21 Source: patient, RN notes reviewed, old records reviewed Mode of arrival: ambulatory Limitations: no limitations - History of Present Illness Initial comments: This is a 66-year-old male the ER for evaluation of severe weakness, fatigue, not feeling well. Going on 2 days of not feeling well. Patient has significant heart history. States he has currently significant weight loss about 20 pounds, taking diuretics. She denies chest pain denies shortness of breath no fevers. Patient states he was losing weight appropriate feeling better but the last 2 days and getting worse - Related Data Home Medications Medication Instructions Recorded Confirmed Aspirin 325 mg PO DAILY 03/09/14 10/09/16 Fenofibrate 160 mg PO HS 03/09/14 10/09/16 Nadolol [Corgard] 20 mg PO BID 03/09/14 10/09/16 Nitroglycerin Sl Tabs [Nitrostat] 0.4 mg SUBLINGUAL Q5M PRN 03/09/14 10/09/16 Omeprazole [PriLOSEC] 20 mg PO HS 03/09/14 10/09/16 Zolpidem [Ambien] 5 mg PO HS PRN 12/10/14 10/09/16 Atorvastatin [Lipitor] 80 mg PO DAILY 05/08/15 10/09/16 Fluticasone/Salmeterol [Advair 1 puff INHALATION RT-BID 05/08/15 10/09/16 250-50 Diskus] Pramipexole Di-HCl [Mirapex] 1 mg PO HS 05/08/15 10/09/16 Ipratropium-Albuterol Nebulize 3 ml INHALATION RT-QID 09/09/16 10/09/16 [Duoneb 0.5 mg-3 mg/3 ml Soln] methylPREDNISolone [Medrol] 4 mg PO DAILY 09/09/16 10/09/16 Methocarbamol [Robaxin] 750 mg PO Q8H PRN 09/22/16 10/09/16 Metolazone [Zaroxolyn] 5 mg PO HS 09/22/16 10/09/16 Polyethylene Glycol 3350 [Miralax] 17 gm PO DAILY PRN 09/22/16 10/09/16 Furosemide [Lasix] 80 mg PO BID@0900,1600 10/09/16 10/09/16 Glimepiride [Amaryl] 2 mg PO AC-BRKFST 10/09/16 10/09/16 Tamsulosin HCl [Flomax] 0.4 mg PO DAILY 10/09/16 10/09/16 Previous Rx's Medication Instructions Recorded Insulin Glargine [Lantus] 30 unit SQ HS #1 vial 09/25/16 Potassium Chloride ER [K-Dur 20] 40 meq PO BID #60 tab 09/25/16 Allergies Allergy/AdvReac Type Severity Reaction Status Date / Time prednisone AdvReac "MADE ME Verified 10/09/16 14:42 VERY ANGRY" Review of Systems ROS Statement: Those systems with pertinent positive or pertinent negative responses have been documented in the HPI. ROS Other: All systems not noted in ROS Statement are negative. Past Medical History Past Medical History: Coronary Artery Disease (CAD), Chest Pain / Angina, Heart Failure, COPD, GERD/Reflux, Hyperlipidemia, Hypertension, Osteoarthritis (OA), Prostate Disorder Additional Past Medical History / Comment(s): MINI STROKES - MRI DONE AT [facility] SHOWS SMALL VESSEL DX. SLEEP APNEA- OCTOBER 07 APPOINTMENT FOR OVERNIGHT SLEEP STUDY History of Any Multi-Drug Resistant Organisms: None Reported Past Surgical History: Back Surgery, Heart Catheterization With Stent, Joint Replacement, Orthopedic Surgery Additional Past Surgical History / Comment(s): TOTAL LEFT KNEE, FELIPE KNEE ARTHROSCOPY, rt shoulder replacement, HEART STENT X3, Past Anesthesia/Blood Transfusion Reactions: No Reported Reaction Additional Past Anesthesia/Blood Transfusion Reaction / Comment(s): STATES "HAD A HARD TIME WITH BREATHING POST OP" Date of Last Stent Placement:: 2009 Past Psychological History: No Psychological Hx Reported Smoking Status: Former smoker - Past Family History Father Family Medical History: CVA/TIA, Hyperlipidemia, Hypertension Mother Family Medical History: Hypertension General Exam Limitations: no limitations Course Vital Signs 10/09/16 10/09/16 10/09/16 14:13 14:30 15:00 Temperature 97.1 F L Pulse Rate 69 65 64 Respiratory 16 20 20 Rate Blood Pressure 114/59 108/60 110/58 O2 Sat by Pulse 93 L 93 L 96 Oximetry 10/09/16 15:25 Temperature Pulse Rate 60 Respiratory 18 Rate Blood Pressure 103/56 O2 Sat by Pulse 94 L Oximetry EKG Findings - EKG Comments: EKG Findings:: EKG shows sinus rhythm rate of 67, LA 132, QRS 114, QTC 581 Medical Decision Making - Medical Decision Making This is a 66 mL the ER for evaluation of weakness, patient is dispensing overdiuresis of Lasix, low potassium. Patient had potassium replacement here in emergency room, put on supplementation and follow up with Dr. Harrison cardiology in his office tomorrow - Lab Data Result diagrams: 10/09/16 14:35 10/09/16 14:35 Lab Results 10/09/16 10/09/16 10/09/16 Range/Units 14:35 14:35 14:35 WBC 11.3 H (3.8-10.6) k/uL RBC 4.66 (4.30-5.90) m/uL Hgb 15.1 (13.0-17.5) gm/dL Hct 41.7 (39.0-53.0) % MCV 89.4 (80.0-100.0) fL MCH 32.3 (25.0-35.0) pg MCHC 36.1 (31.0-37.0) g/dL RDW 13.0 (11.5-15.5) % Plt Count 220 (150-450) k/uL Neutrophils % 69 % Lymphocytes % 22 % Monocytes % 5 % Eosinophils % 1 % Basophils % 1 % Neutrophils # 7.8 H (1.3-7.7) k/uL Lymphocytes # 2.5 (1.0-4.8) k/uL Monocytes # 0.6 (0-1.0) k/uL Eosinophils # 0.1 (0-0.7) k/uL Basophils # 0.1 (0-0.2) k/uL PT 11.0 (9.0-12.0) sec INR 1.1 (<1.2) APTT 19.3 L (22.0-30.0) sec Sodium 135 L (137-145) mmol/L Potassium 2.5 L* (3.5-5.1) mmol/L Chloride 88 L (98-107) mmol/L Carbon Dioxide 32 H (22-30) mmol/L Anion Gap 15 mmol/L BUN 91 H* (9-20) mg/dL Creatinine 1.93 H (0.66-1.25) mg/dL Est GFR (MDRD) Af Amer 42 (>60 ml/min/1.73 sqM) Est GFR (MDRD) Non-Af 35 (>60 ml/min/1.73 sqM) Glucose 203 H (74-99) mg/dL Calcium 9.4 (8.4-10.2) mg/dL Phosphorus 3.7 (2.5-4.5) mg/dL Magnesium 1.7 (1.6-2.3) mg/dL Total Bilirubin 0.5 (0.2-1.3) mg/dL AST 48 (17-59) U/L ALT 62 (21-72) U/L Alkaline Phosphatase 73 (38-126) U/L Total Protein 7.0 (6.3-8.2) g/dL Albumin 4.3 (3.5-5.0) g/dL - Radiology Data Radiology results: report reviewed (Chest x-ray is negative for acute disease), image reviewed Disposition Clinical Impression: Hypokalemia, Weakness Disposition: HOME SELF-CARE Condition: Good Instructions: Hypokalemia (ED) Referrals: Rk Keene III, MD [Primary Care Provider] - 1-2 days
[2016-10-09 14:55] LABS: Basophils # (A) 0.1 k/uL (0-0.2); Basophils % (A) 1 %; Eosinophils # (A) 0.1 k/uL (0-0.7); Eosinophils % (A) 1 %; HCT 41.7 % (39.0-53.0); HDW 2.94; HGB 15.1 gm/dL (13.0-17.5); Luc # (Auto) 0.19; Luc % (Auto) 2; Lymphocytes # (A) 2.5 k/uL (1.0-4.8); Lymphocytes % (A) 22 %; MCH 32.3 pg (25.0-35.0); MCHC 36.1 g/dL (31.0-37.0); MCV 89.4 fL (80.0-100.0); Mean Platelet Volume 9.9; Monocytes # (A) 0.6 k/uL (0-1.0); Monocytes % (A) 5 %; Neutrophils # (A) 7.8 k/uL (1.3-7.7); Neutrophils % (A) 69 %; RBC 4.66 m/uL (4.30-5.90); WBC 11.3 k/uL (3.8-10.6); WBC (Perox) 11.11
[2016-10-09 15:05] LABS: INR 1.1 (<1.2)
[2016-10-09 15:07] LABS: Calcium 9.4 mg/dL (8.4-10.2); Magnesium 1.7 mg/dL (1.6-2.3); Phosphorous 3.7 mg/dL (2.5-4.5); Total Bilirubin 0.5 mg/dL (0.2-1.3)
--- NOTE | 2016-10-09 15:11 | XR ---
EXAMINATION TYPE: XR chest 2V DATE OF EXAM: 10/09/2016 COMPARISON: Chest x-ray September 22, 2016. HISTORY: Weakness. TECHNIQUE: Frontal and lateral views of the chest are obtained. FINDINGS: There is chronic parenchymal change with left basilar scarring. There is no new focal air space opacity, pleural effusion, or pneumothorax seen. The cardiac silhouette size remains within no rmal limits with atherosclerotic thoracic aorta. Right paratracheal fullness is stable from 2015 pre sumed benign. The osseous structures are demineralized. Metallic hardware right shoulder surgery is p artially imaged. IMPRESSION: Chronic changes without acute pulmonary process. No significant change from most recent chest x-ray.
[2016-10-09 15:14] LABS: Potassium 2.5 mmol/L (3.5-5.1)
[2016-10-09] MEDS ORDERED: SODIUM CHLORIDE 0.9% 1,000 ML IV STA (15:17)
[2016-10-09] MEDS ORDERED: POTASSIUM BICARB-CITRIC ACID 25 MEQ TABLET.EFF PO STA (15:17)
[2016-10-09] MEDS ORDERED: SODIUM CHLORIDE 0.9% 500 ML IV STA (15:17)
[2016-10-09 15:21] LABS: Partial Thromboplastin Time 19.3 sec (22.0-30.0)
[2016-10-09 15:23] LABS: Creatine Kinase MB 1.4 ng/mL (0.0-2.4); Troponin I 0.013 ng/mL (0.000-0.034)
[2016-10-09] MEDS ORDERED: NITROGLYCERIN SL TABS 0.4 MG TAB SUBLINGUAL PRN (15:25)
[2016-10-09] MEDS ORDERED: POTASSIUM CHLORIDE ER 20 MEQ TAB.ER PO STA (15:30)
[2016-10-09] MEDS ORDERED: SODIUM CHLORIDE 0.9% 1,000 ML IV SCH (15:30)
[2016-10-09] MEDS ORDERED: POTASSIUM CHLORIDE 20 MEQ, LIDOCAINE 2% INJ 20 MG in SODIUM CHLORIDE 0.9% 100 ML IVPB SCH (16:00)
[2016-10-09 17:56] VITALS: BP 108/60; PULSE 55; RESP 19; TEMP 97.2
[2016-10-10] MEDS ORDERED: ENOXAPARIN 40 MG/0.4 ML SYRINGE SQ SCH (09:00)
[2016-10-10] MEDS ORDERED: ASPIRIN 325 MG TAB PO SCH (09:00)
== END 2016-10-09 17:56 | disposition home or self-care (01) ==
LOC: EC 14:07
DX: E87.6 Hypokalemia (principal); R53.1 Weakness; K21.9 Gastro-esophageal reflux disease without esophagitis; E78.5 Hyperlipidemia, unspecified; M19.90 Unspecified osteoarthritis, unspecified site; I11.0 Hypertensive heart disease with heart failure; I50.9 Heart failure, unspecified; I25.10 Atherosclerotic heart disease of native coronary artery without angina pectoris; Z86.73 Personal history of transient ischemic attack (TIA), and cerebral infarction without residual deficits; Z87.891 Personal history of nicotine dependence; Z79.52 Long term (current) use of systemic steroids; Z79.82 Long term (current) use of aspirin; Z79.84 Long term (current) use of oral hypoglycemic drugs; Z79.899 Other long term (current) drug therapy; Z88.6 Allergy status to analgesic agent
CPT/HCPCS: 99285; 96365; 96366; 96361 ×2; 36415; 93005; 83880; 80053; 82550; 82553; 83735; 84100; 84484; 85025; 85610; 85730; 71020; J2001; J3480

== ENCOUNTER → 2016-10-21 | Outpatient (CLI) | payer MEDICARE | END | disposition home or self-care (01) | LOC: LABWHC1 07:10 | PROVIDERS: ATTEND Internal Medicine Interventional Cardiology | DX: Z53.9 Procedure and treatment not carried out, unspecified reason (principal) ==

== ENCOUNTER → 2016-11-27 | Outpatient (CLI) | payer MEDICARE ==
[2016-11-27 09:57] LABS: Anion Gap 12 mmol/L; Blood Urea Nitrogen 28 mg/dL (9-20); Calcium 9.1 mg/dL (8.4-10.2); Carbon Dioxide 28 mmol/L (22-30); Chloride 103 mmol/L (98-107); Glucose 66 mg/dL (74-99); Non-African American GFR(MDRD) >60 (>60 ml/min/1.73 sqM); Potassium 4.2 mmol/L (3.5-5.1); Sodium 143 mmol/L (137-145)
[2016-11-27 10:25] LABS: CH 30.7; CHCM 32.1; HCT 43.5 % (39.0-53.0); HDW 2.56; HGB 14.2 gm/dL (13.0-17.5); MCH 31.4 pg (25.0-35.0); MCHC 32.6 g/dL (31.0-37.0); Mean Platelet Volume 9.8; RBC 4.52 m/uL (4.30-5.90); RDW 13.4 % (11.5-15.5); WBC 12.7 k/uL (3.8-10.6)
[2016-11-27 10:30] LABS: MCV 96.1 fL (80.0-100.0)
== END | disposition home or self-care (01) ==
LOC: LABWHC1 09:01
PROVIDERS: ATTEND Internal Medicine Interventional Cardiology
DX: N18.9 Chronic kidney disease, unspecified (principal)
CPT/HCPCS: 36415; 80048; 85027

== ENCOUNTER → 2016-12-17 | Outpatient (CLI) | payer MEDICARE ==
--- NOTE | 2016-12-17 17:30 | PN ---
PROGRESS NOTE This 66-year-old male patient was diagnosed having severe CALLI with an AHI of 43, currently on CPAP pressure of 13 cm of water. The patient is coming in for a compliancy check. The patient is doing very well on CPAP machine. He is benefitting from the treatment. He is waking up much more alert and awake during the day and his sleep quality is improved significantly. Currently he is averaging around 5 hours and 9 minutes on his CPAP every night. His CPAP compliancy for more than 4 hours is 93%. His average CPAP use is 5 hours and 9 minutes. His leak factor is 1.9. He is using a Simplus full face mask. His AHI while on treatment is down to 1.4. His Hulbert score is down to 2. He is awake and alert during the day. No hypersomnia or sleepiness. He has not falling asleep while driving at all. BP is 141/78, pulse 66, respirations 18, Hulbert score is down to 2. Temperature 98.1. Weight is 233. GENERAL APPEARANCE: Calm, comfortable. HEENT: Short neck. Crowding of the posterior pharynx. There is no goiter or neck masses. Mallampati class IV. LUNGS: Clear to auscultation. HEART: Sounds are regular. Normal S1, S2. No S3, S4. No murmurs. ABDOMEN: Soft, nontender. No organomegaly. No direct tenderness, no rebound or guarding. EXTREMITIES: No edema. No cyanosis or clubbing. NEUROLOGIC: AOx3 with no focal neurological deficits. SKIN: No rashes, ulcers or wounds. IMPRESSION: 1. Symptomatic severe obstructive sleep apnea with an AHI of 43 currently undergoing successful CPAP therapy at a pressure of 13 cm of water. 2. Obesity. 3. Hypersomnia improved. 4. Hypertension. 5. Hyperlipidemia. PLAN: The patient's treatment is successful. Continue CPAP therapy at the same level of pressure. Keep the patient on Simplus full face mask. Encourage weight loss. Implement good sleep hygiene measures. See me back in a year or 2 in follow up if needed. MMODL / IJN: [id number] /
== END | disposition home or self-care (01) ==
LOC: SLEEP 15:31
PROVIDERS: ATTEND Internal Medicine Critical Care Medicine
DX: G47.33 Obstructive sleep apnea (adult) (pediatric) (principal); E66.9 Obesity, unspecified; I10 Essential (primary) hypertension; E78.5 Hyperlipidemia, unspecified

== ENCOUNTER → 2017-05-15 | Outpatient (CLI) | payer MEDICARE ==
--- NOTE | 2017-05-15 16:24 | US ---
EXAMINATION TYPE: US scrotum with doppler. DATE OF EXAM: 05/15/2017 COMPARISON: NONE CLINICAL HISTORY: 67-year-old male N43.3 Hydrocele unspecified. Left side swelling, tender, no injury TECHNIQUE: Grayscale and color Doppler Duplex imaging performed of the scrotum. Findings: EXAM MEASUREMENTS: TESTICLES: Right Testicle: 3.0 x 3.3 x 2.6 cm Left Testicle: 3.2 x 2.6 x 2.4 cm EPIDIDYMIS HEAD: Right Epididymis: 1.0 x 1.1 x 0.9 cm with a 5 mm epididymal head cyst. There is a pedunculated 5 mm lesion from the epididymal head most likely representing an appendix. Left Epididymis: 0.8 x 1.2 x 0.8 cm with a tiny 2 mm cyst. Similar 6 mm pedunculated lesion likely appendix. Doppler performed to assess for testicular vascularity; good bilateral color flow and waveforms are s een. Satisfactory arterial and venous flow is demonstrated. Presence of hydroceles: Moderate to large bilateral, left greater than right. Internal septations wit h varying thickness are demonstrated within. IMPRESSION: 1. No evidence for testicular torsion. 2. No specific ultrasound findings of epididymoorchitis. 3. However, there are moderate to large hydroceles, left greater than right with internal septations of varying thickness. These complex effusions suggest chronicity and may be either postinfectious or posttraumatic.
== END | disposition home or self-care (01) ==
LOC: RADUSWWP 14:40
PROVIDERS: ATTEND Family Medicine
DX: N43.3 Hydrocele, unspecified (principal); R93.8 Abnormal findings on diagnostic imaging of other specified body structures; Z88.8 Allergy status to other drugs, medicaments and biological substances
CPT/HCPCS: 76870; 93975

== ENCOUNTER 2018-03-12 10:30 | Inpatient (IN) | payer MEDICARE ==
[2018-03-12] MEDS ORDERED: ALBUTEROL NEBULIZED 2.5 MG/3 ML INHALATION STA (10:54)
[2018-03-12] MEDS ORDERED: SODIUM CHLORIDE 0.9% 1,000 ML IV STA (10:54)
[2018-03-12] MEDS ORDERED: IPRATROPIUM 0.5 MG/2.5 ML NEBU INHALATION STA (10:54)
[2018-03-12] MEDS ORDERED: methylPREDNISolone SOD SUCCI 125 MG/2 ML VIAL IV STA (10:54)
--- NOTE | 2018-03-12 10:55 | ED ---
SOB HPI - General Chief Complaint: Shortness of Breath Stated Complaint: respiratory distress, Dr sent Time Seen by Provider: 03/12/18 10:45 Source: patient, RN notes reviewed, old records reviewed Mode of arrival: wheelchair Limitations: no limitations - History of Present Illness Initial Comments: This is a 68-year-old male to the ER for evaluation of severe shortness of breath. Patient was sent in by his strategy specialist for evaluation regarding shortness of breath. states is been going on for 2 days. Fever times one day. Increased cough congestion and continued severe shortness of breath. Patient denies any chest pain currently. MD Complaint: shortness of breath, cough -: days(s) (2) Radiation: other Severity: mild Severity scale (1-10): 3 Quality: other Consistency: constant Improves With: nothing Worsens With: exertion Known History Of: COPD, congestive heart failure Context: recent URI, recent illness Associated Symptoms: fever, cough, sputum production Treatments Prior to Arrival: none - Related Data Home Medications Medication Instructions Recorded Confirmed Nitroglycerin Sl Tabs [Nitrostat] 0.4 mg SUBLINGUAL Q5M PRN 03/09/14 03/12/18 Omeprazole [PriLOSEC] 20 mg PO HS 03/09/14 03/12/18 Atorvastatin [Lipitor] 80 mg PO DAILY 05/08/15 03/12/18 methylPREDNISolone [Medrol] 4 mg PO DAILY 09/09/16 03/12/18 Glimepiride [Amaryl] 2 mg PO AC-BRKFST 10/09/16 03/12/18 Tamsulosin HCl [Flomax] 0.4 mg PO DAILY 10/09/16 03/12/18 Albuterol Nebulized [Ventolin 2.5 mg INHALATION RT-Q6H 03/12/18 03/12/18 Nebulized] Fluticasone/Vilanterol [Breo 1 dose INHALATION RT-DAILY 03/12/18 03/12/18 Ellipta 100-25 Mcg Inhaler] Nadolol [Corgard] 20 mg PO BID 03/12/18 03/12/18 Potassium Chloride ER [K-Dur 20] 80 meq PO BID 03/12/18 03/12/18 Allergies Allergy/AdvReac Type Severity Reaction Status Date / Time prednisone AdvReac "MADE ME Verified 03/12/18 12:04 VERY ANGRY" Review of Systems ROS Statement: Those systems with pertinent positive or pertinent negative responses have been documented in the HPI. ROS Other: All systems not noted in ROS Statement are negative. Past Medical History Past Medical History: Coronary Artery Disease (CAD), Chest Pain / Angina, Heart Failure, COPD, GERD/Reflux, Hyperlipidemia, Hypertension, Osteoarthritis (OA), Prostate Disorder Additional Past Medical History / Comment(s): MINI STROKES - MRI DONE AT [facility] SHOWS SMALL VESSEL DX. SLEEP APNEA- OCTOBER 07 APPOINTMENT FOR OVERNIGHT SLEEP STUDY History of Any Multi-Drug Resistant Organisms: None Reported Past Surgical History: Back Surgery, Heart Catheterization With Stent, Joint Replacement, Orthopedic Surgery Additional Past Surgical History / Comment(s): TOTAL LEFT KNEE, FELIPE KNEE ARTHROSCOPY, rt shoulder replacement, HEART STENT X3, Past Anesthesia/Blood Transfusion Reactions: No Reported Reaction Additional Past Anesthesia/Blood Transfusion Reaction / Comment(s): STATES "HAD A HARD TIME WITH BREATHING POST OP" Date of Last Stent Placement:: 2009 Past Psychological History: No Psychological Hx Reported Smoking Status: Former smoker - Past Family History Father Family Medical History: CVA/TIA, Hyperlipidemia, Hypertension Mother Family Medical History: Hypertension General Exam Limitations: no limitations General appearance: alert, anxious, in distress Head exam: Present: atraumatic, normocephalic, normal inspection Eye exam: Present: normal appearance, PERRL, EOMI. Absent: scleral icterus, conjunctival injection, periorbital swelling ENT exam: Present: normal exam, mucous membranes moist Neck exam: Present: normal inspection. Absent: tenderness, meningismus, lymphadenopathy Respiratory exam: Present: respiratory distress, wheezes, accessory muscle use, decreased breath sounds, prolonged expiratory. Absent: rales, rhonchi, stridor Cardiovascular Exam: Present: regular rate, normal rhythm, normal heart sounds. Absent: systolic murmur, diastolic murmur, rubs, gallop, clicks GI/Abdominal exam: Present: soft, normal bowel sounds. Absent: distended, tenderness, guarding, rebound, rigid Extremities exam: Present: normal inspection, full ROM, normal capillary refill. Absent: tenderness, pedal edema, joint swelling, calf tenderness Back exam: Present: normal inspection Neurological exam: Present: alert, oriented X3, CN II-XII intact Psychiatric exam: Present: normal affect, normal mood Skin exam: Present: warm, dry, intact, normal color. Absent: rash Course Vital Signs 03/12/18 03/12/18 03/12/18 10:35 11:25 11:39 Temperature 98.7 F Pulse Rate 79 78 77 Respiratory 24 Rate Blood Pressure 110/76 O2 Sat by Pulse 98 Oximetry 03/12/18 03/12/18 12:03 12:57 Temperature Pulse Rate 78 74 Respiratory 20 Rate Blood Pressure 99/62 O2 Sat by Pulse 94 L Oximetry - Reevaluation(s) Reevaluation #1: 03/12/18 13:51 Medical records reviewed Reevaluation #2: 03/12/18 13:51 Spoke with patient's strategy specialist prior to transfer over, patient was seen in office today seemed to be hypoxic Reevaluation #3: 03/12/18 13:51 Patient is no improvement after prolonged breathing treatment, will place on BiPAP Medical Decision Making - Medical Decision Making 68 male the ER for evaluation. Patient presents today for evaluation regarding severe shortness of breath, patient has significant pneumonia, fever, will be admitted for COPD exacerbation on BiPAP - Lab Data Result diagrams: 03/12/18 11:20 03/12/18 11:20 Lab Results 03/12/18 03/12/18 03/12/18 Range/Units 11:20 11:20 11:20 WBC 19.7 H (3.8-10.6) k/uL RBC 4.50 (4.30-5.90) m/uL Hgb 14.3 (13.0-17.5) gm/dL Hct 44.3 (39.0-53.0) % MCV 98.5 (80.0-100.0) fL MCH 31.9 (25.0-35.0) pg MCHC 32.3 (31.0-37.0) g/dL RDW 13.8 (11.5-15.5) % Plt Count 134 L (150-450) k/uL Neutrophils % 90 % Lymphocytes % 4 % Monocytes % 4 % Eosinophils % 0 % Basophils % 0 % Neutrophils # 17.8 H (1.3-7.7) k/uL Lymphocytes # 0.8 L (1.0-4.8) k/uL Monocytes # 0.8 (0-1.0) k/uL Eosinophils # 0.1 (0-0.7) k/uL Basophils # 0.1 (0-0.2) k/uL PT (9.0-12.0) sec INR (<1.2) APTT (22.0-30.0) sec Sodium 143 (137-145) mmol/L Potassium 5.5 H (3.5-5.1) mmol/L Chloride 103 (98-107) mmol/L Carbon Dioxide 33 H (22-30) mmol/L Anion Gap 7 mmol/L BUN 26 H (9-20) mg/dL Creatinine 1.00 (0.66-1.25) mg/dL Est GFR (CKD-EPI)AfAm 88 (>60 ml/min/1.73 sqM) Est GFR (CKD-EPI)NonAf 77 (>60 ml/min/1.73 sqM) Glucose 85 (74-99) mg/dL Calcium 8.9 (8.4-10.2) mg/dL Magnesium 1.5 L (1.6-2.3) mg/dL Total Bilirubin 1.1 (0.2-1.3) mg/dL AST 20 (17-59) U/L ALT 34 (21-72) U/L Alkaline Phosphatase 97 (38-126) U/L Total Creatine Kinase 42 L (55-170) U/L CK-MB (CK-2) 0.7 (0.0-2.4) ng/mL CK-MB (CK-2) Rel Index 1.7 Troponin I <0.012 (0.000-0.034) ng/mL Total Protein 6.5 (6.3-8.2) g/dL Albumin 3.7 (3.5-5.0) g/dL 03/12/18 Range/Units 11:20 WBC (3.8-10.6) k/uL RBC (4.30-5.90) m/uL Hgb (13.0-17.5) gm/dL Hct (39.0-53.0) % MCV (80.0-100.0) fL MCH (25.0-35.0) pg MCHC (31.0-37.0) g/dL RDW (11.5-15.5) % Plt Count (150-450) k/uL Neutrophils % % Lymphocytes % % Monocytes % % Eosinophils % % Basophils % % Neutrophils # (1.3-7.7) k/uL Lymphocytes # (1.0-4.8) k/uL Monocytes # (0-1.0) k/uL Eosinophils # (0-0.7) k/uL Basophils # (0-0.2) k/uL PT 10.1 (9.0-12.0) sec INR 0.9 (<1.2) APTT 22.3 (22.0-30.0) sec Sodium (137-145) mmol/L Potassium (3.5-5.1) mmol/L Chloride (98-107) mmol/L Carbon Dioxide (22-30) mmol/L Anion Gap mmol/L BUN (9-20) mg/dL Creatinine (0.66-1.25) mg/dL Est GFR (CKD-EPI)AfAm (>60 ml/min/1.73 sqM) Est GFR (CKD-EPI)NonAf (>60 ml/min/1.73 sqM) Glucose (74-99) mg/dL Calcium (8.4-10.2) mg/dL Magnesium (1.6-2.3) mg/dL Total Bilirubin (0.2-1.3) mg/dL AST (17-59) U/L ALT (21-72) U/L Alkaline Phosphatase (38-126) U/L Total Creatine Kinase (55-170) U/L CK-MB (CK-2) (0.0-2.4) ng/mL CK-MB (CK-2) Rel Index Troponin I (0.000-0.034) ng/mL Total Protein (6.3-8.2) g/dL Albumin (3.5-5.0) g/dL - EKG Data -: EKG Interpreted by Me (EKG shows sinus rhythm rate of 77, SC 1:30, QRS 96, QTc 425) - Radiology Data Radiology results: report reviewed (Chest x-ray is positive for pneumonia), image reviewed Critical Care Time Critical Care Time: Yes Total Critical Care Time: 31 Disposition Clinical Impression: Acute exacerbation of chronic obstructive airways disease, Community acquired pneumonia, Congestive heart failure, Weakness, Acute delirium, Fever Disposition: ADMITTED IP TO THIS HOSP Condition: Fair Is patient prescribed a controlled substance at d/c from ED?: No
[2018-03-12 12:16] LABS: Basophils # (A) 0.1 k/uL (0-0.2); Basophils % (A) 0 %; Eosinophils # (A) 0.1 k/uL (0-0.7); Eosinophils % (A) 0 %; HCT 44.3 % (39.0-53.0); HGB 14.3 gm/dL (13.0-17.5); Lymphocytes # (A) 0.8 k/uL (1.0-4.8); Lymphocytes % (A) 4 %; MCH 31.9 pg (25.0-35.0); MCHC 32.3 g/dL (31.0-37.0); MCV 98.5 fL (80.0-100.0); Mean Platelet Volume 9.7; Monocytes # (A) 0.8 k/uL (0-1.0); Monocytes % (A) 4 %; Neutrophils # (A) 17.8 k/uL (1.3-7.7); Neutrophils % (A) 90 %; Platelet Count 134 k/uL (150-450); RDW 13.8 % (11.5-15.5); WBC 19.7 k/uL (3.8-10.6)
[2018-03-12] MEDS ORDERED: ACETAMINOPHEN IV (For NPO) 1,000 MG in EMPTY BAG 1 BAG IVPB STA (12:19)
[2018-03-12 12:28] LABS: Albumin 3.7 g/dL (3.5-5.0); Calcium 8.9 mg/dL (8.4-10.2); Magnesium 1.5 mg/dL (1.6-2.3); Potassium 5.5 mmol/L (3.5-5.1); Total Bilirubin 1.1 mg/dL (0.2-1.3); Total Protein 6.5 g/dL (6.3-8.2)
[2018-03-12] MEDS ORDERED: IBUPROFEN IV 800 MG in SODIUM CHLORIDE 0.9% 250 ML IV ONE (12:30)
[2018-03-12 12:34] LABS: INR 0.9 (<1.2); Partial Thromboplastin Time 22.3 sec (22.0-30.0); Prothrombin Time 10.1 sec (9.0-12.0)
[2018-03-12 12:37] LABS: Creatine Kinase 42 U/L (55-170)
[2018-03-12 12:50] LABS: Creatine Kinase MB 0.7 ng/mL (0.0-2.4); Troponin I <0.012 ng/mL (0.000-0.034)
[2018-03-12] MEDS ORDERED: IPRATROPIUM-ALBUTEROL 3 ML NEB INHALATION STA (13:29)
[2018-03-12] MEDS ORDERED: LEVOFLOXACIN 750MG-D5W PMX 750 MG in DEXTROSE/WATER 1 150ML.BAG IVPB STA (13:29)
[2018-03-12] MEDS ORDERED: PNEUMONIA PROTOCOL UTILIZED 1 EACH MISC PO PRN (13:29)
[2018-03-12] MEDS ORDERED: PIPERACILLIN-TAZOBACTAM 3.375 GM in SODIUM CHLORIDE 0.9% 100 ML IVPB STA (13:29)
--- NOTE | 2018-03-12 13:42 | XR ---
EXAMINATION TYPE: XR chest 1V portable DATE OF EXAM: 03/12/2018 COMPARISON: Outside chest x-ray from earlier today. Chest x-ray October 09, 2016. HISTORY: Respiratory distress and chest pain. TECHNIQUE: Single AP portable frontal upright view of the chest is obtained. FINDINGS: There is triangular shaped opacity in the left midlung lateral aspect. Right lung show lisandra e patchy basilar atelectasis and/or infiltrate. No mediastinal shift is seen. No large pleural effusi on or pneumothorax is noted. The cardiac silhouette size is enlarged. Surgical change right humerus i s partially imaged. IMPRESSION: Suspect focal acute consolidation or pneumonia lateral left mid lung. Follow-up to kristin العلي is advised.
[2018-03-12] MEDS ORDERED: NITROGLYCERIN SL TABS 0.4 MG TAB SUBLINGUAL PRN (13:59)
[2018-03-12] MEDS: IPRATROPIUM-ALBUTEROL 3 ML NEB INHALATION SCH ×2 (14:12→20:09)
--- NOTE | 2018-03-12 14:47 | P.HPIM ---
History of Present Illness 68-year-old pleasant gentleman with known history of COPD uses 4 L of oxygen at home came in with the complaints of fever chills sepsis along with leukocytosis found to have left middle lobe pneumonia patient denied any cough. Patient's saturations has gone down to 78% today morning, patient was seen in Dr. Chang' s clinic who sent him here. Patient denied any dysuria nausea vomiting. Patient is presently on BiPAP. Not feeling well still hypoxic. Review of Systems REVIEW OF SYSTEMS: CONSTITUTIONAL: As mentioned in HPI. HEENT: No recent visual problems or hearing problems. Denied any sore throat. CARDIOVASCULAR: No chest pain, orthopnea, PND, no palpitations, no syncope. PULMONARY: no hemoptysis. GASTROINTESTINAL: No diarrhea, no nausea, no vomiting, no abdominal pain. NEUROLOGICAL: No headaches, no weakness, no numbness. HEMATOLOGICAL: Denies any bleeding or petechiae. GENITOURINARY: Denies any burning micturition, frequency, or urgency. MUSCULOSKELETAL/RHEUMATOLOGICAL: Denies any joint pain, swelling, or any muscle pain. ENDOCRINE: Denies any polyuria or polydipsia. The rest of the 14-point review of systems is negative. Past Medical History Past Medical History: Coronary Artery Disease (CAD), Chest Pain / Angina, Heart Failure, COPD, GERD/Reflux, Hyperlipidemia, Hypertension, Osteoarthritis (OA), Prostate Disorder Additional Past Medical History / Comment(s): MINI STROKES - MRI DONE AT [place] SHOWS SMALL VESSEL DX. SLEEP APNEA- OCTOBER 07 APPOINTMENT FOR OVERNIGHT SLEEP STUDY History of Any Multi-Drug Resistant Organisms: None Reported Past Surgical History: Back Surgery, Heart Catheterization With Stent, Joint Replacement, Orthopedic Surgery Additional Past Surgical History / Comment(s): TOTAL LEFT KNEE, FELIPE KNEE ARTHROSCOPY, rt shoulder replacement, HEART STENT X3, Past Anesthesia/Blood Transfusion Reactions: No Reported Reaction Additional Past Anesthesia/Blood Transfusion Reaction / Comment(s): STATES "HAD A HARD TIME WITH BREATHING POST OP" Date of Last Stent Placement:: 2009 Past Psychological History: No Psychological Hx Reported Smoking Status: Former smoker - Past Family History Father Family Medical History: CVA/TIA, Hyperlipidemia, Hypertension Mother Family Medical History: Hypertension Medications and Allergies Home Medications Medication Instructions Recorded Confirmed Type Nitroglycerin Sl Tabs [Nitrostat] 0.4 mg SUBLINGUAL Q5M PRN 03/09/14 03/12/18 History Omeprazole [PriLOSEC] 20 mg PO HS 03/09/14 03/12/18 History Atorvastatin [Lipitor] 80 mg PO DAILY 05/08/15 03/12/18 History methylPREDNISolone [Medrol] 4 mg PO DAILY 09/09/16 03/12/18 History Glimepiride [Amaryl] 2 mg PO AC-BRKFST 10/09/16 03/12/18 History Tamsulosin HCl [Flomax] 0.4 mg PO DAILY 10/09/16 03/12/18 History Albuterol Nebulized [Ventolin 2.5 mg INHALATION RT-Q6H 03/12/18 03/12/18 History Nebulized] Fluticasone/Vilanterol [Breo 1 dose INHALATION RT-DAILY 03/12/18 03/12/18 History Ellipta 100-25 Mcg Inhaler] Nadolol [Corgard] 20 mg PO BID 03/12/18 03/12/18 History Potassium Chloride ER [K-Dur 20] 80 meq PO BID 03/12/18 03/12/18 History Allergies Allergy/AdvReac Type Severity Reaction Status Date / Time prednisone AdvReac "MADE ME Verified 03/12/18 12:04 VERY ANGRY" Physical Exam Vitals: Vital Signs Temp Pulse Resp BP Pulse Ox 03/12/18 14:27 70 03/12/18 14:18 68 03/12/18 14:00 71 24 91/53 95 03/12/18 13:30 73 24 102/55 92 L 03/12/18 13:00 75 26 H 99/62 93 L 03/12/18 12:57 74 20 99/62 94 L 03/12/18 12:03 78 03/12/18 11:39 77 03/12/18 11:25 78 03/12/18 10:35 98.7 F 79 24 110/76 98 Intake and Output 03/11/18 03/12/18 03/12/18 22:59 06:59 14:59 Other: Weight 240 kg PHYSICAL EXAMINATION: GENERAL: The patient is alert and oriented x3, she is in significant respiratory distress, is in mild respiratory distress with BiPAP. Obese HEENT: Pupils are round and equally reacting to light. EOMI. No scleral icterus. No conjunctival pallor. Normocephalic, atraumatic. No pharyngeal erythema. No thyromegaly. CARDIOVASCULAR: S1 and S2 present. No murmurs, rubs, or gallops. PULMONARY: Diminished air entry into bilateral lung kimball no wheezing was appreciated. There may be bronchophony and the left posterior upper lung kimball ABDOMEN: Soft, nontender, nondistended, normoactive bowel sounds. No palpable organomegaly. MUSCULOSKELETAL: No joint swelling or deformity. EXTREMITIES: No cyanosis, clubbing, or pedal edema. NEUROLOGICAL: Gross neurological examination did not reveal any focal deficits. SKIN: No rashes. Results CBC & Chem 7: 03/12/18 11:20 03/12/18 11:20 Labs: Abnormal Lab Results - Last 24 Hours (Table) 03/12/18 03/12/18 03/12/18 Range/Units 11:20 11:20 11:20 WBC 19.7 H (3.8-10.6) k/uL Plt Count 134 L (150-450) k/uL Neutrophils # 17.8 H (1.3-7.7) k/uL Lymphocytes # 0.8 L (1.0-4.8) k/uL Potassium 5.5 H (3.5-5.1) mmol/L Carbon Dioxide 33 H (22-30) mmol/L BUN 26 H (9-20) mg/dL Magnesium 1.5 L (1.6-2.3) mg/dL Total Creatine Kinase 42 L (55-170) U/L Assessment and Plan Plan: -Left middle lobe pneumonia: And sepsis secondary to that patient will be started on Rocephin and azithromycin patient last hospitalization is more than any other ago patient most probably has community-acquired pneumonia most probably pneumococcal pneumonia. Pulmonology will be consulted. -Acute chronic hypercapnic respiratory failure secondary to COPD exacerbation along with acute hypoxic respiratory failure secondary to pneumonia: Patient will be started on inhaled treatments along with IV steroids. -Coronary artery disease -Gastroesophageal reflux disease - hyperkalemia secondary to potassium supplementation which will be discontinued repeat electrolytes tomorrow -Hyperlipidemia -Benign prostatic atrophy -Patient will need pharmacologic DVT as well as GI prophylaxis. For rest of his chronic above-mentioned medical problems patient will be resumed on appropriate home medications.
--- NOTE | 2018-03-12 15:53 | P.CNPUL ---
History of Present Illness Consult date: 03/12/18 Requesting physician: Dax Pizarro Reason for consult: dyspnea, cough, chest pain, COPD, hypoxemia, pneumonia, abnormal CXR/CT Chief complaint: Extensive left sided pneumonia, acute on chronic hypoxic respiratory failur History of present illness: This is a 68-year-old white male patient of Dr. Keene, who also sees Dr. Torres in the pulmonary clinic for history of chronic obstructive pulmonary disease, who was sent over to the hospital from the pulmonary clinic has been sick for last to 3 days, with increased cough, shortness of breath, fever, not much in the way of phlegm production, discomfort in the left side of anterior left lower chest at the rib margin. Patient has underlying FEV1 of 1.71 L or 58 % of predicted with FVC of 2.26 L or 56% of predicted. Patient's COPD is advanced, patient is on home oxygen. Other medical history includes type 2 diabetes mellitus, hypercholesterolemia, coronary artery disease with previous stenting, chronic congestive heart failure, hypertension, GERD without esophagitis, obstructive sleep apnea syndrome, obesity, his history of smoking, patient quit smoking 10 years ago. Chest x-ray showed extensive triangular- shaped opacity related to pneumonia involving lateral left mid lung. Patient is afebrile, but sweaty. He was significantly short of breath, tachypneic, he was placed on BiPAP support. Lab work showed WBC of 19.7, hemoglobin of 14.3, sodium is 143, potassium is 5.5, chloride was 103, CO2 is 33, B1 is 26, creatinine is 1.0, troponin was negative 1, teas were unremarkable. Patient was started on empiric antibiotics including Zithromax, and Rocephin. On initial presentation was given a dose of Zosyn and Levaquin. Nebulized bronchodilators were started, IV Solu-Medrol, and patient is seen in the emergency room, stating on the gurney, still on BiPAP support, still tachypneic , and short of breath. Awaiting placement on selective care unit, however considering his extensive pneumonia involving the left lung, patient's placement will be upgraded to intensive care unit. Review of Systems All systems: negative Constitutional: Denies chills, Denies fever Eyes: denies blurred vision, denies pain Ears, nose, mouth and throat: Denies headache, Denies sore throat Cardiovascular: Denies chest pain, Denies shortness of breath Respiratory: Reports congestion, Reports dyspnea, Reports home oxygen, Reports pain on inspiration, Reports respiratory infections, Reports wheezing, Denies cough Gastrointestinal: Denies abdominal pain, Denies diarrhea, Denies nausea, Denies vomiting Musculoskeletal: Denies myalgias Integumentary: Denies pruritus, Denies rash Neurological: Denies numbness, Denies weakness Psychiatric: Denies anxiety, Denies depression Endocrine: Denies fatigue, Denies weight change Past Medical History Past Medical History: Coronary Artery Disease (CAD), Chest Pain / Angina, Heart Failure, COPD, GERD/Reflux, Hyperlipidemia, Hypertension, Osteoarthritis (OA), Prostate Disorder Additional Past Medical History / Comment(s): 03/12/18 pt wants a flu vaccine before discharge if ok with other hx includes: MINI STROKES - MRI DONE AT [place] SHOWS SMALL VESSEL DX, pt stated diet control dm-no meds no bs checks. SLEEP APNEA/cpap, History of Any Multi-Drug Resistant Organisms: None Reported Past Surgical History: Back Surgery, Heart Catheterization With Stent, Joint Replacement, Orthopedic Surgery Additional Past Surgical History / Comment(s): TOTAL LEFT KNEE, FELIPE KNEE ARTHROSCOPY, rt shoulder replacement, HEART STENT X3,lt hand sx Past Anesthesia/Blood Transfusion Reactions: No Reported Reaction Additional Past Anesthesia/Blood Transfusion Reaction / Comment(s): STATES "HAD A HARD TIME WITH BREATHING POST OP" Date of Last Stent Placement:: 2009 Smoking Status: Former smoker - Past Family History Father Family Medical History: CVA/TIA, Hyperlipidemia, Hypertension Mother Family Medical History: Hypertension Medications and Allergies Home Medications Medication Instructions Recorded Confirmed Type Nitroglycerin Sl Tabs [Nitrostat] 0.4 mg SUBLINGUAL Q5M PRN 03/09/14 03/12/18 History Omeprazole [PriLOSEC] 20 mg PO HS 03/09/14 03/12/18 History Atorvastatin [Lipitor] 80 mg PO DAILY 05/08/15 03/12/18 History methylPREDNISolone [Medrol] 4 mg PO DAILY 09/09/16 03/12/18 History Glimepiride [Amaryl] 2 mg PO AC-BRKFST 10/09/16 03/12/18 History Tamsulosin HCl [Flomax] 0.4 mg PO DAILY 10/09/16 03/12/18 History Albuterol Nebulized [Ventolin 2.5 mg INHALATION RT-Q6H 03/12/18 03/12/18 History Nebulized] Fluticasone/Vilanterol [Breo 1 dose INHALATION RT-DAILY 03/12/18 03/12/18 History Ellipta 100-25 Mcg Inhaler] Nadolol [Corgard] 20 mg PO BID 03/12/18 03/12/18 History Potassium Chloride ER [K-Dur 20] 80 meq PO BID 03/12/18 03/12/18 History Allergies Allergy/AdvReac Type Severity Reaction Status Date / Time prednisone AdvReac "MADE ME Verified 03/12/18 12:04 VERY ANGRY" Physical Exam Vitals: Vital Signs Temp Pulse Resp BP Pulse Ox 03/12/18 14:30 68 25 H 94/52 96 03/12/18 14:27 70 03/12/18 14:18 68 03/12/18 14:00 71 24 91/53 95 03/12/18 13:30 73 24 102/55 92 L 03/12/18 13:00 75 26 H 99/62 93 L 03/12/18 12:57 74 20 99/62 94 L 03/12/18 12:03 78 03/12/18 11:39 77 03/12/18 11:25 78 03/12/18 10:35 98.7 F 79 24 110/76 98 Intake and Output 03/12/18 03/12/18 03/12/18 06:59 14:59 22:59 Other: Weight 240 kg GENERAL EXAM: Alert, pleasant, 68-year-old white male, on BiPAP support, tachypneic, dyspneic, sweaty. HEAD: Normocephalic/atraumatic. EYES: Normal reaction of pupils, equal size. Conjunctiva pink, sclera white. NOSE: Clear with pink turbinates. THROAT: No erythema or exudates. NECK: No masses, no JVD, no thyroid enlargement, no adenopathy. CHEST: No chest wall deformity. Symmetrical expansion. LUNGS: Equal air entry with diffuse rhonchi, and wheezes CVS: Regular rate and rhythm, normal S1 and S2, no gallops, no murmurs, no rubs ABDOMEN: Soft, nontender. No hepatosplenomegaly, normal bowel sounds, no guarding or rigidity. EXTREMITIES: No clubbing, no cyanosis, 2+ pulses and upper and lower extremities. 1+ pitting edema MUSCULOSKELETAL: Muscle strength and tone normal. SPINE: No scoliosis or deformity SKIN: No rashes CENTRAL NERVOUS SYSTEM: Alert and oriented -3. No focal deficits, tone is normal in all 4 extremities. PSYCHIATRIC: Alert and oriented -3. Appropriate affect. Intact judgment and insight. Results - Laboratory Findings CBC and BMP: 03/12/18 11:20 03/12/18 11:20 PT/INR, D-dimer PT 10.1 sec (9.0-12.0) 03/12/18 11:20 INR 0.9 (<1.2) 03/12/18 11:20 Abnormal lab findings: Abnormal Labs 03/12/18 03/12/18 03/12/18 11:20 11:20 11:20 WBC 19.7 H Plt Count 134 L Neutrophils # 17.8 H Lymphocytes # 0.8 L Potassium 5.5 H Carbon Dioxide 33 H BUN 26 H Magnesium 1.5 L Total Creatine Kinase 42 L - Diagnostic Findings Chest x-ray: report reviewed, image reviewed Additional studies: EKG reviewed Assessment and Plan Plan: Assessment: #1. Acute on chronic hypoxemic respiratory failure secondary to extensive pneumonia involving lateral left mid lung, community acquired #2. Acute COPD exacerbation secondary to the above #3. Moderately severe COPD with chronic hypoxemic respiratory failure, baseline FEV1 of 58% of predicted, or 1.71 L #4. Coronary artery disease, with previous stenting #5. Type 2 diabetes mellitus #6. Hypertension, hypercholesterolemia #7. GERD #8. Obstructive sleep apnea syndrome #9. Obesity #10. Osteoarthritis #11. Nicotine dependence, currently in remission, patient quit 10 years ago Plan: Continue with Zithromax and Rocephin, collect sputum culture, tinea with nebulized bronchodilators, IV steroids, GI and DVT prophylaxis. Patient's placement will be upgraded to intensive care unit. Continue to closely follow, repeat chest x-ray in the morning. I performed a history & physical examination of the patient and discussed their management with my nurse practitioner, Skylar Mckoy. I reviewed the nurse practitioner's note and agree with the documented findings and plan of care. Lung sounds are positive for diffuse wheezes and rhonchi throughout the lung kimball. The findings and the impression was discussed with the patient. I attest to the documentation by the nurse practitioner. Time with Patient: Greater than 30
[2018-03-12] MEDS: MAGNESIUM SULFATE-D5W PMX 1 GM in DEXTROSE/WATER 1 100ML.BAG IVPB SCH ×2 (16:39→18:43)
[2018-03-12] MEDS: cefTRIAXone 2,000 MG in SODIUM CHLORIDE 0.9% 100 ML IVPB SCH (16:51)
[2018-03-12 17:16] LABS: Glucose,Whole Blood 111 mg/dL (75-99)
[2018-03-12] MEDS ORDERED: ACETAMINOPHEN TAB 325 MG TAB PO PRN (21:30)
[2018-03-12] MEDS: NADOLOL 20 MG TAB PO SCH (21:31)
[2018-03-12] MEDS: PANTOPRAZOLE 40 MG TABLET PO SCH (21:35)
[2018-03-12] MEDS: methylPREDNISolone SOD SUCCI 40 MG/ML 1 ML VIAL IV SCH (21:35)
[2018-03-13] MEDS ORDERED: PIPERACILLIN-TAZOBACTAM 3.375 GM in SODIUM CHLORIDE 0.9% 100 ML IVPB SCH ×2
[2018-03-13 00:21] LABS: Appearance,Urine Cloudy (Clear); Bilirubin,Urine Negative (Negative); Blood,Urine Negative (Negative); Color,Urine Yellow; Glucose,Urine (UA) Negative (Negative); Hyaline Casts,Urine 10 /lpf (0-2); Ketones,Urine Negative (Negative); Leukocyte Esterase,Urine Negative (Negative); Mucus,Urine Occasional /hpf; Nitrite,Urine Negative (Negative); Protein,Urine Trace (Negative); RBC,Urine 2 /hpf (0-5); Specific Gravity,Urine 1.016 (1.001-1.035); Urobilinogen,Urine <2.0 mg/dL (<2.0); WBC,Urine 3 /hpf (0-5)
[2018-03-13 05:10] LABS: HCT 38.8 % (39.0-53.0); HGB 12.1 gm/dL (13.0-17.5); MCH 30.9 pg (25.0-35.0); MCHC 31.3 g/dL (31.0-37.0); MCV 98.8 fL (80.0-100.0); Mean Platelet Volume 9.1; Platelet Count 133 k/uL (150-450); RBC 3.93 m/uL (4.30-5.90); RDW 13.8 % (11.5-15.5); WBC 20.5 k/uL (3.8-10.6)
[2018-03-13 05:19] LABS: Anion Gap 7 mmol/L; Blood Urea Nitrogen 33 mg/dL (9-20); Calcium 8.8 mg/dL (8.4-10.2); Carbon Dioxide 25 mmol/L (22-30); Chloride 106 mmol/L (98-107); Glucose 172 mg/dL (74-99); Magnesium 2.2 mg/dL (1.6-2.3); Phosphorus 3.8 mg/dL (2.5-4.5); Potassium 4.2 mmol/L (3.5-5.1); Sodium 138 mmol/L (137-145)
[2018-03-13] MEDS ORDERED: INSULIN ASPART 100 UNIT/ML 1 ML 10 ML VIAL SQ SCH (05:30)
[2018-03-13 05:36] LABS: Glucose,Whole Blood 153 mg/dL (75-99)
[2018-03-13] MEDS: INSULIN ASPART 100 UNIT/ML 1 ML 10 ML VIAL SQ SCH ×4 (05:44→21:20)
[2018-03-13] MEDS: SYMBICORT 80-4.5 MCG INHALER INHALATION SCH ×2 (07:41→07:45)
[2018-03-13] MEDS: IPRATROPIUM-ALBUTEROL 3 ML NEB INHALATION SCH ×4 (07:41→20:28)
--- NOTE | 2018-03-13 09:24 | XR ---
EXAMINATION TYPE: XR chest 1V DATE OF EXAM: 03/13/2018 COMPARISON: 03/12/2018 HISTORY: Left-sided pneumonia. TECHNIQUE: Single frontal view of the chest is obtained. FINDINGS: There is marked improvement in the previously seen left-sided consolidation although a pat leonard opacity does remain. Minimal atelectasis is seen at the costophrenic angles. Cardiomediastinal si lhouette is stable and within normal limits. No sizable pneumothorax. Right humeral arthroplasty is n oted. IMPRESSION: Marked improvement in the left lung consolidation again suspicious for pneumonia. Follow -up to resolution is recommended. Additionally minimal bibasilar atelectasis is seen.
[2018-03-13] MEDS: cefTRIAXone 2,000 MG in SODIUM CHLORIDE 0.9% 100 ML IVPB SCH (09:26)
[2018-03-13] MEDS: AZITHROMYCIN 500 MG TAB PO SCH (09:26)
[2018-03-13] MEDS: ENOXAPARIN 40 MG/0.4 ML SYRINGE SQ SCH (09:26)
[2018-03-13] MEDS: TAMSULOSIN 0.4 MG CAP.ER.24H PO SCH (09:26)
[2018-03-13] MEDS: ATORVASTATIN 80 MG TAB PO SCH (09:26)
[2018-03-13] MEDS: methylPREDNISolone SOD SUCCI 40 MG/ML 1 ML VIAL IV SCH ×2 (09:26→21:20)
[2018-03-13] MEDS: NADOLOL 20 MG TAB PO SCH ×3 (09:27→22:07)
--- NOTE | 2018-03-13 10:21 | P.PN ---
Subjective Progress Note Date: 03/13/18 Principal diagnosis: Acute on chronic hypoxic rest she failure secondary to extensive pneumonia involving lateral left mid lung, community-acquired, acute COPD exacerbation This is a 68-year-old white male patient of Dr. Keene, who also sees Dr. Torres in the pulmonary clinic for history of chronic obstructive pulmonary disease, who was sent over to the hospital from the pulmonary clinic has been sick for last to 3 days, with increased cough, shortness of breath, fever, not much in the way of phlegm production, discomfort in the left side of anterior left lower chest at the rib margin. Patient has underlying FEV1 of 1.71 L or 58 % of predicted with FVC of 2.26 L or 56% of predicted. Patient's COPD is advanced, patient is on home oxygen. Other medical history includes type 2 diabetes mellitus, hypercholesterolemia, coronary artery disease with previous stenting, chronic congestive heart failure, hypertension, GERD without esophagitis, obstructive sleep apnea syndrome, obesity, his history of smoking, patient quit smoking 10 years ago. Chest x-ray showed extensive triangular- shaped opacity related to pneumonia involving lateral left mid lung. Patient is afebrile, but sweaty. He was significantly short of breath, tachypneic, he was placed on BiPAP support. Lab work showed WBC of 19.7, hemoglobin of 14.3, sodium is 143, potassium is 5.5, chloride was 103, CO2 is 33, B1 is 26, creatinine is 1.0, troponin was negative 1, teas were unremarkable. Patient was started on empiric antibiotics including Zithromax, and Rocephin. On initial presentation was given a dose of Zosyn and Levaquin. Nebulized bronchodilators were started, IV Solu-Medrol, and patient is seen in the emergency room, stating on the gurney, still on BiPAP support, still tachypneic , and short of breath. Awaiting placement on selective care unit, however considering his extensive pneumonia involving the left lung, patient's placement will be upgraded to intensive care unit. On 03/13/2018 patient seen again in follow-up in the intensive care unit, he remains on BiPAP support, with pressures of 12/6, and FiO2 of 45%, breathing easier today, no fever or chills, lung sounds reveal diminished breath sounds with some scattered crackles, no wheezing or rhonchi, 0.9 normal saline at a rate of 100 ML per hour, chest x-ray shows improvement in the appearance of the left lateral mid lung pneumonia. Lab work was reviewed, shows WBC of 20.5, hemoglobin of 12.1, electrolytes were within normal limits, BUN was 33 and creatinine was 0.86. Patient is on combination of Rocephin and Zithromax, And unable to collect a sputum culture. Blood cultures are pending. The patient's improving, we will try him off the BiPAP on nasal cannula. Objective - Vital Signs Vital signs: Vital Signs Temp 97.6 F 03/13/18 08:00 Pulse 64 03/13/18 08:00 Resp 16 03/13/18 08:00 BP 125/59 03/13/18 08:00 Pulse Ox 93 L 03/13/18 08:00 Intake & Output 03/12/18 03/13/18 03/13/18 18:59 06:59 18:59 Intake Total 200 1680 200 Output Total 0 750 Balance 200 930 200 Weight 107.9 kg 111 kg Intake: IV 200 NS 200 Intake, IV Titration 200 1200 Amount Magnesium Sulfate-D5w Pmx 100 1200 1 gm In Dextrose/Water 1 100ml.bag @ 100 mls/hr IVPB Q1H JOSE Rx#: [id number] cefTRIAXone 2,000 mg In 100 Sodium Chloride 0.9% 100 ml @ 200 mls/hr IVPB Q24HR JOSE Rx#:[id number] Oral 480 Output: Urine 0 750 Other: Voiding Method Urinal Urinal # Voids 1 1 - Exam GENERAL EXAM: Alert, pleasant, 68-year-old white male, on BiPAP support, more comfortable today, no sweats, dyspnea is improved, HEAD: Normocephalic/atraumatic. EYES: Normal reaction of pupils, equal size. Conjunctiva pink, sclera white. NOSE: Clear with pink turbinates. THROAT: No erythema or exudates. NECK: No masses, no JVD, no thyroid enlargement, no adenopathy. CHEST: No chest wall deformity. Symmetrical expansion. LUNGS: Equal air entry with diffuse scattered crackles, diminished breath sounds bilaterally CVS: Regular rate and rhythm, normal S1 and S2, no gallops, no murmurs, no rubs ABDOMEN: Soft, nontender. No hepatosplenomegaly, normal bowel sounds, no guarding or rigidity. EXTREMITIES: No clubbing, no cyanosis, 2+ pulses and upper and lower extremities. 1+ pitting edema MUSCULOSKELETAL: Muscle strength and tone normal. SPINE: No scoliosis or deformity SKIN: No rashes CENTRAL NERVOUS SYSTEM: Alert and oriented -3. No focal deficits, tone is normal in all 4 extremities. PSYCHIATRIC: Alert and oriented -3. Appropriate affect. Intact judgment and insight. - Labs CBC & Chem 7: 03/13/18 04:50 03/13/18 04:50 Labs: Abnormal Lab Results - Last 24 Hours (Table) 03/12/18 03/12/18 03/12/18 Range/Units 11:20 11:20 11:20 WBC 19.7 H (3.8-10.6) k/uL RBC (4.30-5.90) m/uL Hgb (13.0-17.5) gm/dL Hct (39.0-53.0) % Plt Count 134 L (150-450) k/uL Neutrophils # 17.8 H (1.3-7.7) k/uL Lymphocytes # 0.8 L (1.0-4.8) k/uL Potassium 5.5 H (3.5-5.1) mmol/L Carbon Dioxide 33 H (22-30) mmol/L BUN 26 H (9-20) mg/dL Glucose (74-99) mg/dL POC Glucose (mg/dL) (75-99) mg/dL Magnesium 1.5 L (1.6-2.3) mg/dL Total Creatine Kinase 42 L (55-170) U/L Urine Protein (Negative) Hyaline Casts (0-2) /lpf Urine Mucus (None) /hpf 03/12/18 03/12/18 03/13/18 Range/Units 17:12 23:50 04:50 WBC 20.5 H (3.8-10.6) k/uL RBC 3.93 L (4.30-5.90) m/uL Hgb 12.1 L (13.0-17.5) gm/dL Hct 38.8 L (39.0-53.0) % Plt Count 133 L (150-450) k/uL Neutrophils # (1.3-7.7) k/uL Lymphocytes # (1.0-4.8) k/uL Potassium (3.5-5.1) mmol/L Carbon Dioxide (22-30) mmol/L BUN (9-20) mg/dL Glucose (74-99) mg/dL POC Glucose (mg/dL) 111 H (75-99) mg/dL Magnesium (1.6-2.3) mg/dL Total Creatine Kinase (55-170) U/L Urine Protein Trace H (Negative) Hyaline Casts 10 H (0-2) /lpf Urine Mucus Occasional H (None) /hpf 03/13/18 03/13/18 Range/Units 04:50 05:34 WBC (3.8-10.6) k/uL RBC (4.30-5.90) m/uL Hgb (13.0-17.5) gm/dL Hct (39.0-53.0) % Plt Count (150-450) k/uL Neutrophils # (1.3-7.7) k/uL Lymphocytes # (1.0-4.8) k/uL Potassium (3.5-5.1) mmol/L Carbon Dioxide (22-30) mmol/L BUN 33 H (9-20) mg/dL Glucose 172 H (74-99) mg/dL POC Glucose (mg/dL) 153 H (75-99) mg/dL Magnesium (1.6-2.3) mg/dL Total Creatine Kinase (55-170) U/L Urine Protein (Negative) Hyaline Casts (0-2) /lpf Urine Mucus (None) /hpf Assessment and Plan Plan: Assessment: #1. Acute on chronic hypoxemic respiratory failure secondary to extensive pneumonia involving lateral left mid lung, community acquired #2. Acute COPD exacerbation secondary to the above #3. Moderately severe COPD with chronic hypoxemic respiratory failure, baseline FEV1 of 58% of predicted, or 1.71 L #4. Coronary artery disease, with previous stenting #5. Type 2 diabetes mellitus #6. Hypertension, hypercholesterolemia #7. GERD #8. Obstructive sleep apnea syndrome #9. Obesity #10. Osteoarthritis #11. Nicotine dependence, currently in remission, patient quit 10 years ago Plan: We'll try patient off the BiPAP support, patient can be put back on an as needed for increased shortness of breath, oxygenation has improved, today's chest x-ray has been reviewed by Dr. Neal, and shows improvement in the appearance of lateral left mid lung pneumonia, afebrile, blood cultures are pending, we were unable to collect a sputum culture yet, continue with the same antibiotic coverage, and nebulized treatments, and IV steroids, we will switch Symbicort to Pulmicort and Perforomist, we will continue to follow. Patient will remain in the ICU today. I performed a history & physical examination of the patient and discussed their management with my nurse practitioner, Skylar Mckoy. I reviewed the nurse practitioner's note and agree with the documented findings and plan of care. Lung sounds are positive for diffuse crackles throughout the lung kimball. The findings and the impression was discussed with the patient. I attest to the documentation by the nurse practitioner. Time with Patient: Greater than 30
[2018-03-13] MEDS: HYDROcodone/APAP 5-325MG 1 EACH TAB PO PRN ×2 (10:58→21:20)
[2018-03-13] MEDS: SODIUM CHLORIDE 0.9% 1,000 ML IV SCH ×2 (11:04→21:22)
--- NOTE | 2018-03-13 11:34 | P.PN ---
Subjective Patient is a 68-year-old gentleman admitted for COPD exacerbation patient uses 4 L of onset at home was on BiPAP presently of BiPAP is on 4 L of oxygen now patient has left middle lobe pneumonia patient is on Rocephin and azithromycin at this time. Doing much better still has some expiratory wheezing continue with the systemic steroids. Constitutional: Denied any fatigue denied any fever. Cardio vascular: denied any chest pain, palpitations Gastrointestinal denied any nausea vomiting Pulmonary: As mentioned in the interval history Neurologic denied any new focal deficits All inpatient medications were reviewed and appropriate changes in these medications as dictated in the interval history and assessment and plan. Objective - Vital Signs Vital signs: Vital Signs Temp 97.6 F 03/13/18 08:00 Pulse 66 03/13/18 10:00 Resp 19 03/13/18 10:00 BP 125/70 03/13/18 10:00 Pulse Ox 94 L 03/13/18 10:00 Intake & Output 03/12/18 03/13/18 03/13/18 18:59 06:59 18:59 Intake Total 200 1680 1000 Output Total 0 750 Balance 435 997 8067 Weight 107.9 kg 111 kg Intake: IV 400 NS 400 Intake, IV Titration 200 1200 100 Amount Magnesium Sulfate-D5w Pmx 100 1200 1 gm In Dextrose/Water 1 100ml.bag @ 100 mls/hr IVPB Q1H [facility] Rx#: [id number] cefTRIAXone 2,000 mg In 100 100 Sodium Chloride 0.9% 100 ml @ 200 mls/hr IVPB Q24HR [facility] Rx#:[id number] Oral 480 500 Output: Urine 0 750 Other: Voiding Method Urinal Urinal # Voids 1 1 - Exam PHYSICAL EXAMINATION: GENERAL: The patient is alert and oriented x3, she is in significant respiratory distress, is in mild respiratory distress with BiPAP. Obese HEENT: Pupils are round and equally reacting to light. EOMI. No scleral icterus. No conjunctival pallor. Normocephalic, atraumatic. No pharyngeal erythema. No thyromegaly. CARDIOVASCULAR: S1 and S2 present. No murmurs, rubs, or gallops. PULMONARY: Diminished air entry into bilateral lung kimball significant expiratory wheezing on exam bilaterally ABDOMEN: Soft, nontender, nondistended, normoactive bowel sounds. No palpable organomegaly. MUSCULOSKELETAL: No joint swelling or deformity. EXTREMITIES: No cyanosis, clubbing, or pedal edema. NEUROLOGICAL: Gross neurological examination did not reveal any focal deficits. SKIN: No rashes. - Labs CBC & Chem 7: 03/13/18 04:50 03/13/18 04:50 Labs: Abnormal Lab Results - Last 24 Hours (Table) 03/12/18 03/12/18 03/12/18 Range/Units 11:20 11:20 11:20 WBC 19.7 H (3.8-10.6) k/uL RBC (4.30-5.90) m/uL Hgb (13.0-17.5) gm/dL Hct (39.0-53.0) % Plt Count 134 L (150-450) k/uL Neutrophils # 17.8 H (1.3-7.7) k/uL Lymphocytes # 0.8 L (1.0-4.8) k/uL Potassium 5.5 H (3.5-5.1) mmol/L Carbon Dioxide 33 H (22-30) mmol/L BUN 26 H (9-20) mg/dL Glucose (74-99) mg/dL POC Glucose (mg/dL) (75-99) mg/dL Magnesium 1.5 L (1.6-2.3) mg/dL Total Creatine Kinase 42 L (55-170) U/L Urine Protein (Negative) Hyaline Casts (0-2) /lpf Urine Mucus (None) /hpf 03/12/18 03/12/18 03/13/18 Range/Units 17:12 23:50 04:50 WBC 20.5 H (3.8-10.6) k/uL RBC 3.93 L (4.30-5.90) m/uL Hgb 12.1 L (13.0-17.5) gm/dL Hct 38.8 L (39.0-53.0) % Plt Count 133 L (150-450) k/uL Neutrophils # (1.3-7.7) k/uL Lymphocytes # (1.0-4.8) k/uL Potassium (3.5-5.1) mmol/L Carbon Dioxide (22-30) mmol/L BUN (9-20) mg/dL Glucose (74-99) mg/dL POC Glucose (mg/dL) 111 H (75-99) mg/dL Magnesium (1.6-2.3) mg/dL Total Creatine Kinase (55-170) U/L Urine Protein Trace H (Negative) Hyaline Casts 10 H (0-2) /lpf Urine Mucus Occasional H (None) /hpf 03/13/18 03/13/18 Range/Units 04:50 05:34 WBC (3.8-10.6) k/uL RBC (4.30-5.90) m/uL Hgb (13.0-17.5) gm/dL Hct (39.0-53.0) % Plt Count (150-450) k/uL Neutrophils # (1.3-7.7) k/uL Lymphocytes # (1.0-4.8) k/uL Potassium (3.5-5.1) mmol/L Carbon Dioxide (22-30) mmol/L BUN 33 H (9-20) mg/dL Glucose 172 H (74-99) mg/dL POC Glucose (mg/dL) 153 H (75-99) mg/dL Magnesium (1.6-2.3) mg/dL Total Creatine Kinase (55-170) U/L Urine Protein (Negative) Hyaline Casts (0-2) /lpf Urine Mucus (None) /hpf Assessment and Plan Plan: -Left middle lobe pneumonia: And sepsis secondary to community-acquired pneumonia is on Rocephin and azithromycin patient last hospitalization is more than any other ago patient most probably has community-acquired pneumonia most probably pneumococcal pneumonia. Pulmonology evaluated the patient -Acute chronic hypercapnic respiratory failure secondary to COPD exacerbation along with acute hypoxic respiratory failure secondary to pneumonia: Patient will be started on inhaled treatments along with IV steroids, significant improvement compared to yesterday and off BiPAP on 4 L of oxygen. -Coronary artery disease -Gastroesophageal reflux disease - hyperkalemia secondary to potassium supplementation resolved now -Hyperlipidemia -Benign prostatic atrophy -Patient will need pharmacologic DVT as well as GI prophylaxis. For rest of his chronic above-mentioned medical problems patient will be resumed on appropriate home medications.
[2018-03-13 11:52] LABS: Glucose,Whole Blood 167 mg/dL (75-99)
[2018-03-13] MEDS ORDERED: LEVOFLOXACIN 750MG-D5W PMX 750 MG in DEXTROSE/WATER 1 150ML.BAG IVPB SCH (14:00)
[2018-03-13 15:19] VITALS: BMI 38.3
[2018-03-13 17:35] LABS: Glucose,Whole Blood 156 mg/dL (75-99)
[2018-03-13] MEDS: FORMOTEROL FUMARATE 20 MCG/2 ML NEBU INHALATION SCH (20:28)
[2018-03-13] MEDS: BUDESONIDE 1 MG/2 ML NEBU INHALATION SCH (20:28)
[2018-03-13 21:13] LABS: Glucose,Whole Blood 147 mg/dL (75-99)
[2018-03-13] MEDS: PANTOPRAZOLE 40 MG TABLET PO SCH (21:22)
[2018-03-14 05:45] LABS: Glucose,Whole Blood 176 mg/dL (75-99)
[2018-03-14] MEDS: INSULIN ASPART 100 UNIT/ML 1 ML 10 ML VIAL SQ SCH ×4 (06:57→21:42)
[2018-03-14] MEDS: IPRATROPIUM-ALBUTEROL 3 ML NEB INHALATION SCH ×4 (07:59→19:58)
[2018-03-14] MEDS: BUDESONIDE 1 MG/2 ML NEBU INHALATION SCH ×2 (07:59→19:58)
[2018-03-14] MEDS: FORMOTEROL FUMARATE 20 MCG/2 ML NEBU INHALATION SCH ×2 (07:59→19:58)
[2018-03-14] MEDS: ENOXAPARIN 40 MG/0.4 ML SYRINGE SQ SCH (08:47)
[2018-03-14] MEDS: ATORVASTATIN 80 MG TAB PO SCH (08:47)
[2018-03-14] MEDS: AZITHROMYCIN 500 MG TAB PO SCH (08:47)
[2018-03-14] MEDS: TAMSULOSIN 0.4 MG CAP.ER.24H PO SCH (08:47)
[2018-03-14] MEDS: NADOLOL 20 MG TAB PO SCH ×2 (08:47→21:42)
[2018-03-14] MEDS: methylPREDNISolone SOD SUCCI 40 MG/ML 1 ML VIAL IV SCH ×2 (08:47→21:43)
[2018-03-14] MEDS: SODIUM CHLORIDE 0.9% 1,000 ML IV SCH (10:29)
--- NOTE | 2018-03-14 10:53 | P.PN ---
Subjective Patient is a 68-year-old gentleman admitted for COPD exacerbation patient uses 4 L of onset at home was on BiPAP presently of BiPAP is on 4 L of oxygen now patient has left middle lobe pneumonia patient is on Rocephin and azithromycin at this time. Doing much better still has some expiratory wheezing continue with the systemic steroids. 03/14/2018 Patient is doing much better is on 4 L of oxygen today still bit short of breath close to his baseline probably can be discharged tomorrow Constitutional: Denied any fatigue denied any fever. Cardio vascular: denied any chest pain, palpitations Gastrointestinal denied any nausea vomiting Pulmonary: As mentioned in the interval history Neurologic denied any new focal deficits All inpatient medications were reviewed and appropriate changes in these medications as dictated in the interval history and assessment and plan. Objective - Vital Signs Vital signs: Vital Signs Temp 97.6 F 03/14/18 08:00 Pulse 67 03/14/18 08:24 Resp 18 03/14/18 08:00 BP 141/51 03/14/18 08:00 Pulse Ox 96 03/14/18 08:00 Intake & Output 03/13/18 03/14/18 03/14/18 18:59 06:59 18:59 Intake Total 2650 1660 Output Total 1350 600 Balance 1300 1060 Weight 111 kg Intake: IV 1200 700 NS 1200 700 Intake, IV Titration 100 Amount cefTRIAXone 2,000 mg In 100 Sodium Chloride 0.9% 100 ml @ 200 mls/hr IVPB Q24HR [facility] Rx#:[id number] Oral 1350 960 Output: Urine 1350 600 Other: Voiding Method Urinal Urinal Urinal # Voids 1 - Exam PHYSICAL EXAMINATION: GENERAL: The patient is alert and oriented x3, not in significant respiratory distress obese HEENT: Pupils are round and equally reacting to light. EOMI. No scleral icterus. No conjunctival pallor. Normocephalic, atraumatic. No pharyngeal erythema. No thyromegaly. CARDIOVASCULAR: S1 and S2 present. No murmurs, rubs, or gallops. PULMONARY: Diminished air entry into bilateral lung kimball mild expiratory wheezing on exam bilaterally ABDOMEN: Soft, nontender, nondistended, normoactive bowel sounds. No palpable organomegaly. MUSCULOSKELETAL: No joint swelling or deformity. EXTREMITIES: No cyanosis, clubbing, or pedal edema. NEUROLOGICAL: Gross neurological examination did not reveal any focal deficits. SKIN: No rashes. - Labs CBC & Chem 7: 03/13/18 04:50 03/13/18 04:50 Labs: Abnormal Lab Results - Last 24 Hours (Table) 03/13/18 03/13/18 03/13/18 Range/Units 11:48 17:10 21:10 POC Glucose (mg/dL) 167 H 156 H 147 H (75-99) mg/dL 03/14/18 Range/Units 05:43 POC Glucose (mg/dL) 176 H (75-99) mg/dL Microbiology - Last 24 Hours (Table) 03/12/18 11:20 Blood Culture - Preliminary Blood No Growth after 24 hours Assessment and Plan Plan: -Left middle lobe pneumonia: And sepsis secondary to community-acquired pneumonia is on Rocephin and azithromycin patient most probably has community- acquired pneumonia most probably pneumococcal pneumonia. Pulmonology evaluated the patient. Patient is doing much better probably can be discharged tomorrow -Acute chronic hypercapnic respiratory failure secondary to COPD exacerbation along with acute hypoxic respiratory failure secondary to pneumonia: Patient can use to given IV steroids and 4 L of oxygen which is his baseline -Coronary artery disease -Gastroesophageal reflux disease - hyperkalemia secondary to potassium supplementation resolved now -Hyperlipidemia -Benign prostatic atrophy -Patient will need pharmacologic DVT as well as GI prophylaxis. For rest of his chronic above-mentioned medical problems patient will be resumed on appropriate home medications.
[2018-03-14] MEDS: cefTRIAXone 2,000 MG in SODIUM CHLORIDE 0.9% 100 ML IVPB SCH (11:18)
[2018-03-14 11:53] LABS: Glucose,Whole Blood 153 mg/dL (75-99)
--- NOTE | 2018-03-14 14:56 | P.PN ---
Subjective Progress Note Date: 03/14/18 Principal diagnosis: Acute on chronic hypoxic respiratory failure secondary to extensive pneumonia involving the left midlung, community-acquired, acute COPD exacerbation. This is a 68-year-old white male patient of Dr. Keene, who also sees Dr. Torres in the pulmonary clinic for history of chronic obstructive pulmonary disease, who was sent over to the hospital from the pulmonary clinic has been sick for last to 3 days, with increased cough, shortness of breath, fever, not much in the way of phlegm production, discomfort in the left side of anterior left lower chest at the rib margin. Patient has underlying FEV1 of 1.71 L or 58 % of predicted with FVC of 2.26 L or 56% of predicted. Patient's COPD is advanced, patient is on home oxygen. Other medical history includes type 2 diabetes mellitus, hypercholesterolemia, coronary artery disease with previous stenting, chronic congestive heart failure, hypertension, GERD without esophagitis, obstructive sleep apnea syndrome, obesity, his history of smoking, patient quit smoking 10 years ago. Chest x-ray showed extensive triangular- shaped opacity related to pneumonia involving lateral left mid lung. Patient is afebrile, but sweaty. He was significantly short of breath, tachypneic, he was placed on BiPAP support. Lab work showed WBC of 19.7, hemoglobin of 14.3, sodium is 143, potassium is 5.5, chloride was 103, CO2 is 33, B1 is 26, creatinine is 1.0, troponin was negative 1, teas were unremarkable. Patient was started on empiric antibiotics including Zithromax, and Rocephin. On initial presentation was given a dose of Zosyn and Levaquin. Nebulized bronchodilators were started, IV Solu-Medrol, and patient is seen in the emergency room, stating on the gurney, still on BiPAP support, still tachypneic , and short of breath. Awaiting placement on selective care unit, however considering his extensive pneumonia involving the left lung, patient's placement will be upgraded to intensive care unit. On 03/13/2018 patient seen again in follow-up in the intensive care unit, he remains on BiPAP support, with pressures of 12/6, and FiO2 of 45%, breathing easier today, no fever or chills, lung sounds reveal diminished breath sounds with some scattered crackles, no wheezing or rhonchi, 0.9 normal saline at a rate of 100 ML per hour, chest x-ray shows improvement in the appearance of the left lateral mid lung pneumonia. Lab work was reviewed, shows WBC of 20.5, hemoglobin of 12.1, electrolytes were within normal limits, BUN was 33 and creatinine was 0.86. Patient is on combination of Rocephin and Zithromax, And unable to collect a sputum culture. Blood cultures are pending. The patient's improving, we will try him off the BiPAP on nasal cannula. The patient is seen today 03/14/2018 in follow-up on the regular medical floor. He is awake and alert in no acute distress. He is sitting up at the bedside. He did utilize BiPAP 02/26 and FiO2 45%. Currently maintaining O2 saturations in the mid 90s on 4 L/m per nasal cannula. He is afebrile. Hemodynamically stable. Blood culture reveals no growth. Objective - Vital Signs Vital signs: Vital Signs Temp 97.6 F 03/14/18 08:00 Pulse 63 03/14/18 11:56 Resp 18 03/14/18 08:00 BP 141/51 03/14/18 08:00 Pulse Ox 96 03/14/18 08:00 Intake & Output 03/13/18 03/14/18 03/14/18 18:59 06:59 18:59 Intake Total 2650 1660 Output Total 1350 600 Balance 1300 1060 Weight 111 kg Intake: IV 1200 700 NS 1200 700 Intake, IV Titration 100 Amount cefTRIAXone 2,000 mg In 100 Sodium Chloride 0.9% 100 ml @ 200 mls/hr IVPB Q24HR [facility] Rx#:[id number] Oral 1350 960 Output: Urine 1350 600 Other: Voiding Method Urinal Urinal Urinal # Voids 1 - Exam GENERAL EXAM: Alert, pleasant, 68-year-old white male, on BiPAP support alternating with 6 L high flow nasal cannula. HEAD: Normocephalic/atraumatic. EYES: Normal reaction of pupils, equal size. Conjunctiva pink, sclera white. NOSE: Clear with pink turbinates. THROAT: No erythema or exudates. NECK: No masses, no JVD, no thyroid enlargement, no adenopathy. CHEST: No chest wall deformity. Symmetrical expansion. LUNGS: Equal air entry with diffuse scattered crackles, diminished breath sounds bilaterally CVS: Regular rate and rhythm, normal S1 and S2, no gallops, no murmurs, no rubs ABDOMEN: Soft, nontender. No hepatosplenomegaly, normal bowel sounds, no guarding or rigidity. EXTREMITIES: No clubbing, no cyanosis, 2+ pulses and upper and lower extremities. 1+ pitting edema MUSCULOSKELETAL: Muscle strength and tone normal. SPINE: No scoliosis or deformity SKIN: No rashes CENTRAL NERVOUS SYSTEM: Alert and oriented -3. No focal deficits, tone is normal in all 4 extremities. PSYCHIATRIC: Alert and oriented -3. Appropriate affect. Intact judgment and insight. - Labs CBC & Chem 7: 03/13/18 04:50 03/13/18 04:50 Labs: Abnormal Lab Results - Last 24 Hours (Table) 03/13/18 03/13/18 03/14/18 Range/Units 17:10 21:10 05:43 POC Glucose (mg/dL) 156 H 147 H 176 H (75-99) mg/dL 03/14/18 Range/Units 11:10 POC Glucose (mg/dL) 153 H (75-99) mg/dL Microbiology - Last 24 Hours (Table) 03/12/18 11:20 Blood Culture - Preliminary Blood No Growth after 24 hours Assessment and Plan Assessment: Assessment: #1. Acute on chronic hypoxemic respiratory failure secondary to extensive pneumonia involving lateral left mid lung, community acquired #2. Acute COPD exacerbation secondary to the above #3. Moderately severe COPD with chronic hypoxemic respiratory failure, baseline FEV1 of 58% of predicted, or 1.71 L #4. Coronary artery disease, with previous stenting #5. Type 2 diabetes mellitus #6. Hypertension, hypercholesterolemia #7. GERD #8. Obstructive sleep apnea syndrome #9. Obesity #10. Osteoarthritis #11. Nicotine dependence, currently in remission, patient quit 10 years ago Plan: The patient was seen and evaluated by Dr. Neal. He is improved today as compared to yesterday. He is intermittently using the BiPAP along with 6 L high flow nasal cannula. We'll continue the current treatment plan. We'll increase his activity as tolerated. We'll continue to follow. I, the cosigning physician, performed a history & physical examination of the patient. Lungs sounds with few scattered rhonchi. Maintaining good O2 saturations in the 90s on 6 L high flow nasal cannula. I discussed the assessment and plan of care with my nurse practitioner, Judi Crawford. I attest to the above note as dictated by her.
[2018-03-14 17:48] LABS: Glucose,Whole Blood 207 mg/dL (75-99)
[2018-03-14 20:33] LABS: Glucose,Whole Blood 299 mg/dL (75-99)
[2018-03-14 21:34] VITALS: RESP 18
[2018-03-14] MEDS: PANTOPRAZOLE 40 MG TABLET PO SCH (21:42)
[2018-03-14] MEDS: HYDROcodone/APAP 5-325MG 1 EACH TAB PO PRN (21:50)
[2018-03-15 05:42] LABS: Glucose,Whole Blood 131 mg/dL (75-99)
[2018-03-15 06:17] LABS: MCH 29.4 pg (25.0-35.0); MCHC 29.9 g/dL (31.0-37.0); MCV 98.5 fL (80.0-100.0); Mean Platelet Volume 9.3; Platelet Count 180 k/uL (150-450); RBC 4.06 m/uL (4.30-5.90); RDW 13.8 % (11.5-15.5); WBC 14.3 k/uL (3.8-10.6)
[2018-03-15 06:26] LABS: Anion Gap 7 mmol/L; Blood Urea Nitrogen 32 mg/dL (9-20); Carbon Dioxide 25 mmol/L (22-30); Chloride 107 mmol/L (98-107); Glucose 137 mg/dL (74-99); Potassium 4.8 mmol/L (3.5-5.1); Sodium 139 mmol/L (137-145)
[2018-03-15] MEDS: SODIUM CHLORIDE 0.9% 1,000 ML IV SCH ×2 (07:03→09:00)
[2018-03-15] MEDS: BUDESONIDE 1 MG/2 ML NEBU INHALATION SCH (07:58)
[2018-03-15] MEDS: IPRATROPIUM-ALBUTEROL 3 ML NEB INHALATION SCH ×3 (07:58→11:47)
[2018-03-15] MEDS: FORMOTEROL FUMARATE 20 MCG/2 ML NEBU INHALATION SCH (07:58)
[2018-03-15] MEDS: NADOLOL 20 MG TAB PO SCH (08:59)
[2018-03-15] MEDS: methylPREDNISolone SOD SUCCI 40 MG/ML 1 ML VIAL IV SCH (08:59)
[2018-03-15] MEDS: ATORVASTATIN 80 MG TAB PO SCH (08:59)
[2018-03-15] MEDS: TAMSULOSIN 0.4 MG CAP.ER.24H PO SCH (08:59)
[2018-03-15] MEDS: ENOXAPARIN 40 MG/0.4 ML SYRINGE SQ SCH (08:59)
[2018-03-15] MEDS: AZITHROMYCIN 500 MG TAB PO SCH (08:59)
[2018-03-15] MEDS: cefTRIAXone 2,000 MG in SODIUM CHLORIDE 0.9% 100 ML IVPB SCH (09:00)
[2018-03-15] MEDS: INSULIN ASPART 100 UNIT/ML 1 ML 10 ML VIAL SQ SCH (09:00)
[2018-03-15] MEDS ORDERED: FUROSEMIDE 10 MG/ML 4 ML VIAL IV STA (11:05)
--- NOTE | 2018-03-15 11:08 | P.PN ---
Subjective Progress Note Date: 03/15/18 Principal diagnosis: Acute on chronic hypoxic rest she failure secondary to extensive pneumonia involving lateral left mid lung, community-acquired, acute COPD exacerbation This is a 68-year-old white male patient of Dr. Keene, who also sees Dr. Torres in the pulmonary clinic for history of chronic obstructive pulmonary disease, who was sent over to the hospital from the pulmonary clinic has been sick for last to 3 days, with increased cough, shortness of breath, fever, not much in the way of phlegm production, discomfort in the left side of anterior left lower chest at the rib margin. Patient has underlying FEV1 of 1.71 L or 58 % of predicted with FVC of 2.26 L or 56% of predicted. Patient's COPD is advanced, patient is on home oxygen. Other medical history includes type 2 diabetes mellitus, hypercholesterolemia, coronary artery disease with previous stenting, chronic congestive heart failure, hypertension, GERD without esophagitis, obstructive sleep apnea syndrome, obesity, his history of smoking, patient quit smoking 10 years ago. Chest x-ray showed extensive triangular- shaped opacity related to pneumonia involving lateral left mid lung. Patient is afebrile, but sweaty. He was significantly short of breath, tachypneic, he was placed on BiPAP support. Lab work showed WBC of 19.7, hemoglobin of 14.3, sodium is 143, potassium is 5.5, chloride was 103, CO2 is 33, B1 is 26, creatinine is 1.0, troponin was negative 1, teas were unremarkable. Patient was started on empiric antibiotics including Zithromax, and Rocephin. On initial presentation was given a dose of Zosyn and Levaquin. Nebulized bronchodilators were started, IV Solu-Medrol, and patient is seen in the emergency room, stating on the gurney, still on BiPAP support, still tachypneic , and short of breath. Awaiting placement on selective care unit, however considering his extensive pneumonia involving the left lung, patient's placement will be upgraded to intensive care unit. On 03/13/2018 patient seen again in follow-up in the intensive care unit, he remains on BiPAP support, with pressures of 12/6, and FiO2 of 45%, breathing easier today, no fever or chills, lung sounds reveal diminished breath sounds with some scattered crackles, no wheezing or rhonchi, 0.9 normal saline at a rate of 100 ML per hour, chest x-ray shows improvement in the appearance of the left lateral mid lung pneumonia. Lab work was reviewed, shows WBC of 20.5, hemoglobin of 12.1, electrolytes were within normal limits, BUN was 33 and creatinine was 0.86. Patient is on combination of Rocephin and Zithromax, And unable to collect a sputum culture. Blood cultures are pending. The patient's improving, we will try him off the BiPAP on nasal cannula. On 03/15/2018 patient seen in follow-up on selective care unit, he is awake and alert, oriented 3, currently on 4 L per nasal cannula with a pulse ox of 96%, this can probably be further wean down, afebrile, hemodynamically stable, lung sounds are diminished, no rhonchi, no wheezes or rales, no new chest x-rays, chest x-ray from 03/13/2018 showed improvement in the appearance of left lateral mid lung pneumonia, today's labs showed WBC of 14.3, hemoglobin of 12.0 , electrolytes and renal profile were unremarkable. Blood cultures showed no growth at the 48 hour julio. Patient is combination of Zithromax and Rocephin, nebulized bronchodilators, clinically he is improving, and use BiPAP support last night, he does have a history of obstructive sleep apnea. Objective - Vital Signs Vital signs: Vital Signs Temp 97.5 F L 03/15/18 04:00 Pulse 76 03/15/18 08:19 Resp 18 03/15/18 04:00 BP 115/58 03/15/18 04:00 Pulse Ox 96 03/15/18 04:00 Intake & Output 03/14/18 03/15/18 03/15/18 18:59 06:59 18:59 Intake Total 240 Output Total 0 0 Balance 240 0 Weight 111 kg Intake: Oral 240 Output: Urine 0 0 Other: Voiding Method Urinal Urinal # Voids 1 1 - Exam GENERAL EXAM: Alert, pleasant, 68-year-old white male, on 4 L per nasal cannula , calm and comfortable, HEAD: Normocephalic/atraumatic. EYES: Normal reaction of pupils, equal size. Conjunctiva pink, sclera white. NOSE: Clear with pink turbinates. THROAT: No erythema or exudates. NECK: No masses, no JVD, no thyroid enlargement, no adenopathy. CHEST: No chest wall deformity. Symmetrical expansion. LUNGS: Equal air entry with diminished breath sounds, with no rhonchi, wheezing or rales CVS: Regular rate and rhythm, normal S1 and S2, no gallops, no murmurs, no rubs ABDOMEN: Soft, nontender. No hepatosplenomegaly, normal bowel sounds, no guarding or rigidity. EXTREMITIES: No clubbing, no cyanosis, 2+ pulses and upper and lower extremities. 1+ pitting edema MUSCULOSKELETAL: Muscle strength and tone normal. SPINE: No scoliosis or deformity SKIN: No rashes CENTRAL NERVOUS SYSTEM: Alert and oriented -3. No focal deficits, tone is normal in all 4 extremities. PSYCHIATRIC: Alert and oriented -3. Appropriate affect. Intact judgment and insight. - Labs CBC & Chem 7: 03/15/18 05:48 03/15/18 05:48 Labs: Abnormal Lab Results - Last 24 Hours (Table) 03/14/18 03/14/18 03/14/18 Range/Units 11:10 16:54 20:31 WBC (3.8-10.6) k/uL RBC (4.30-5.90) m/uL Hgb (13.0-17.5) gm/dL MCHC (31.0-37.0) g/dL BUN (9-20) mg/dL Glucose (74-99) mg/dL POC Glucose (mg/dL) 153 H 207 H 299 H (75-99) mg/dL 03/15/18 03/15/18 03/15/18 Range/Units 05:40 05:48 05:48 WBC 14.3 H (3.8-10.6) k/uL RBC 4.06 L (4.30-5.90) m/uL Hgb 12.0 L (13.0-17.5) gm/dL MCHC 29.9 L (31.0-37.0) g/dL BUN 32 H (9-20) mg/dL Glucose 137 H (74-99) mg/dL POC Glucose (mg/dL) 131 H (75-99) mg/dL Microbiology - Last 24 Hours (Table) 03/12/18 11:20 Blood Culture - Preliminary Blood No Growth after 48 hours Assessment and Plan Plan: Assessment: #1. Acute on chronic hypoxemic respiratory failure secondary to extensive pneumonia involving lateral left mid lung, community acquired #2. Acute COPD exacerbation secondary to the above #3. Moderately severe COPD with chronic hypoxemic respiratory failure, baseline FEV1 of 58% of predicted, or 1.71 L #4. Coronary artery disease, with previous stenting #5. Type 2 diabetes mellitus #6. Hypertension, hypercholesterolemia #7. GERD #8. Obstructive sleep apnea syndrome #9. Obesity #10. Osteoarthritis #11. Nicotine dependence, currently in remission, patient quit 10 years ago Plan: Patient is stable, he continues to improve, afebrile. Continue weaning FiO2, patient only wears oxygen at bedtime only. From pulmonary perspective patient has significantly improved, he can be considered for discharge home today. We' ll switch to IV Solu-Medrol to oral steroids. We'll need follow-up with Dr. Torres in the office next week. I performed a history & physical examination of the patient and discussed their management with my nurse practitioner, Skylar Mckoy. I reviewed the nurse practitioner's note and agree with the documented findings and plan of care. Lung sounds are positive for diminished breath sounds, no rhonchi or rales. The findings and the impression was discussed with the patient. I attest to the documentation by the nurse practitioner. Time with Patient: Less than 30
--- NOTE | 2018-03-15 12:02 | P.DS ---
Providers Date of admission: 03/12/18 13:31 Attending physician: Isabell Huertas Consults: 03/12/18 13:29 Consult Physician Routine Consulting Provider: Rahul Chang Consult Reason/Comments: known Do you want consulting provider notified?: Yes Primary care physician: Rk Mendoza [facility] Course: Patient is a 68-year-old gentleman admitted for COPD exacerbation patient uses 4 L of onset at home was on BiPAP presently of BiPAP is on 4 L of oxygen now patient has left middle lobe pneumonia patient is on Rocephin and azithromycin at this time. Doing much better still has some expiratory wheezing continue with the systemic steroids. 03/14/2018 Patient is doing much better is on 4 L of oxygen today still bit short of breath close to his baseline probably can be discharged tomorrow 03/15/2018 Patient is at his baseline clinically doing well will be discharged today patient will be discharged on 7 days of Ceftin for his left middle lobe pneumonia. Patient will resume his Lasix patient has mild pedal edema will give him a dose of IV Lasix before discharge patient is on high-dose of potassium 80 mg twice a day which will be converted to 20 mg twice a day with repeat basic metabolic profile in 3 days may require more than 20 mg twice a day. And patient came in his potassium was elevated and it was 5.5) 4.8. PHYSICAL EXAMINATION: GENERAL: The patient is alert and oriented x3, not in any acute distress. Well developed, well nourished. HEENT: Pupils are round and equally reacting to light. EOMI. No scleral icterus. No conjunctival pallor. Normocephalic, atraumatic. No pharyngeal erythema. No thyromegaly. CARDIOVASCULAR: S1 and S2 present. No murmurs, rubs, or gallops. PULMONARY: Chest is clear to auscultation, no wheezing or crackles. ABDOMEN: Soft, nontender, nondistended, normoactive bowel sounds. No palpable organomegaly. MUSCULOSKELETAL: No joint swelling or deformity. EXTREMITIES: No cyanosis, clubbing, mild bilateral pedal edema NEUROLOGICAL: Gross neurological examination did not reveal any focal deficits. SKIN: No rashes. Assessment and Plan Plan: -Left middle lobe pneumonia: And sepsis secondary to community-acquired pneumonia she'll be discharged on 7 days of Ceftin as mentioned above -Acute chronic hypercapnic respiratory failure secondary to COPD exacerbation along with acute hypoxic respiratory failure secondary to pneumonia: She and is at his baseline -Coronary artery disease -Gastroesophageal reflux disease - hyperkalemia secondary to potassium supplementation resolved now -Hyperlipidemia -Benign prostatic atrophy Patient Condition at Discharge: Fair Plan - Discharge Summary Discharge Rx Participant: No New Discharge Prescriptions: New Cefuroxime Axetil [Ceftin] 500 mg PO BID #14 tab predniSONE 10 mg PO DAILY #30 tab Continue Omeprazole [PriLOSEC] 20 mg PO HS Nitroglycerin Sl Tabs [Nitrostat] 0.4 mg SUBLINGUAL Q5M PRN PRN Reason: Chest Pain Atorvastatin [Lipitor] 80 mg PO DAILY methylPREDNISolone [Medrol] 4 mg PO DAILY Glimepiride [Amaryl] 2 mg PO AC-BRKFST Tamsulosin HCl [Flomax] 0.4 mg PO DAILY Nadolol [Corgard] 20 mg PO BID Albuterol Nebulized [Ventolin Nebulized] 2.5 mg INHALATION RT-Q6H Fluticasone/Vilanterol [Breo Ellipta 100-25 Mcg Inhaler] 1 dose INHALATION RT -DAILY Changed Potassium Chloride ER [K-Dur 20] 20 meq PO BID #0 Discharge Medication List Nitroglycerin Sl Tabs [Nitrostat] 0.4 mg SUBLINGUAL Q5M PRN 03/09/14 [History] Omeprazole [PriLOSEC] 20 mg PO HS 03/09/14 [History] Atorvastatin [Lipitor] 80 mg PO DAILY 05/08/15 [History] methylPREDNISolone [Medrol] 4 mg PO DAILY 09/09/16 [History] Glimepiride [Amaryl] 2 mg PO AC-BRKFST 10/09/16 [History] Tamsulosin HCl [Flomax] 0.4 mg PO DAILY 10/09/16 [History] Albuterol Nebulized [Ventolin Nebulized] 2.5 mg INHALATION RT-Q6H 03/12/18 [ History] Fluticasone/Vilanterol [Breo Ellipta 100-25 Mcg Inhaler] 1 dose INHALATION RT- DAILY 03/12/18 [History] Nadolol [Corgard] 20 mg PO BID 03/12/18 [History] Cefuroxime Axetil [Ceftin] 500 mg PO BID #14 tab 03/15/18 [Rx] Potassium Chloride ER [K-Dur 20] 20 meq PO BID #0 03/15/18 [Rx] predniSONE 10 mg PO DAILY #30 tab 03/15/18 [Rx] Follow up Appointment(s)/Referral(s): Rk Keene III, MD [Primary Care Provider] - 3 Days Ambulatory/Diagnostic Orders: Basic Metabolic Panel [LAB.AMB] Time Frame: 3 Days, Location: None Selected Discharge Disposition: HOME SELF-CARE
[2018-03-15 12:18] LABS: Glucose,Whole Blood 114 mg/dL (75-99)
[2018-03-15 14:35] VITALS: BP 141/69; PULSE 55; TEMP 97.4
[2018-03-16] MEDS ORDERED: predniSONE 20 MG TAB PO SCH (09:00)
== END 2018-03-15 15:02 | disposition home or self-care (01) | DRG 871 ==
LOC: EC 10:30 → 3SCARD 13:31 → 2SICU 14:55 → 3SCARD 03-14 01:42
PROVIDERS: ADMIT Hospitalist; ATTEND Hospitalist
PROC: 5A09357 Assistance with Respiratory Ventilation, Less than 24 Consecutive Hours, Continuous Positive Airway Pressure (ICD-10-PCS; principal; 2018-03-12)
DX: A40.3 Sepsis due to Streptococcus pneumoniae (principal); J96.22 Acute and chronic respiratory failure with hypercapnia; J96.21 Acute and chronic respiratory failure with hypoxia; J13 Pneumonia due to Streptococcus pneumoniae; J44.1 Chronic obstructive pulmonary disease with (acute) exacerbation; J44.0 Chronic obstructive pulmonary disease with (acute) lower respiratory infection; Z99.81 Dependence on supplemental oxygen; I25.10 Atherosclerotic heart disease of native coronary artery without angina pectoris; K21.9 Gastro-esophageal reflux disease without esophagitis; E11.9 Type 2 diabetes mellitus without complications; E87.5 Hyperkalemia; Z96.652 Presence of left artificial knee joint; Z96.611 Presence of right artificial shoulder joint; M19.90 Unspecified osteoarthritis, unspecified site; G47.33 Obstructive sleep apnea (adult) (pediatric); E78.00 Pure hypercholesterolemia, unspecified; N42.89 Other specified disorders of prostate; I11.0 Hypertensive heart disease with heart failure; I50.9 Heart failure, unspecified; E66.9 Obesity, unspecified; E78.5 Hyperlipidemia, unspecified; F17.201 Nicotine dependence, unspecified, in remission; Z79.52 Long term (current) use of systemic steroids; Z86.73 Personal history of transient ischemic attack (TIA), and cerebral infarction without residual deficits; Z95.5 Presence of coronary angioplasty implant and graft; Z82.49 Family history of ischemic heart disease and other diseases of the circulatory system; Z79.84 Long term (current) use of oral hypoglycemic drugs; Z79.51 Long term (current) use of inhaled steroids; Z79.899 Other long term (current) drug therapy; Z68.38 Body mass index [BMI] 38.0-38.9, adult
CPT/HCPCS: 36415; 71045; 80048; 80053; 81001; 82550; 82553; 83735; 84100; 84484; 85025; 85027; 85610; 85730; 87040; 93005; 94640; 94644; 94660; 94760

== ENCOUNTER 2018-03-24 22:25 | Inpatient (IN) | payer MEDICARE ==
[2018-03-24] MEDS ORDERED: IPRATROPIUM 0.5 MG/2.5 ML NEBU INHALATION STA (22:37)
[2018-03-24] MEDS ORDERED: SODIUM CHLORIDE 0.9% 1,000 ML IV STA ×2 (22:37)
[2018-03-24] MEDS ORDERED: PIPERACILLIN-TAZOBACTAM 3.375 GM in SODIUM CHLORIDE 0.9% 100 ML IVPB STA (22:37)
[2018-03-24] MEDS ORDERED: ALBUTEROL NEBULIZED 2.5 MG/3 ML INHALATION STA (22:37)
[2018-03-24] MEDS ORDERED: LEVOFLOXACIN 750MG-D5W PMX 750 MG in DEXTROSE/WATER 1 150ML.BAG IVPB STA (22:37)
--- NOTE | 2018-03-24 22:38 | ED ---
SOB HPI - General Chief Complaint: Shortness of Breath Stated Complaint: pneumonia Source: patient, RN notes reviewed, old records reviewed Mode of arrival: ambulatory Limitations: no limitations - History of Present Illness Initial Comments: This is a 68-year-old male the ER for evasive severe shortness of breath fevers cough congestion, known recent significant history of similar issues. Denies any significant trauma. Patient does complain of chest pain. Diaphoresis again fevers, recent diagnosis of pneumonia with recent hospital inpatient admission MD Complaint: shortness of breath, cough, chest pain, pain with inspiration -: days(s) Severity: moderate Severity scale (1-10): 5 Quality: aching Consistency: constant Improves With: oxygen, rest, bronchodilators Worsens With: exertion, movement Known History Of: COPD, congestive heart failure Context: recent URI, other (Recent hospitalization) Associated Symptoms: chest pain, pain with inspiration, fever, cough, sputum production, orthopnea, diaphoresis - Related Data Home Medications Medication Instructions Recorded Confirmed Nitroglycerin Sl Tabs [Nitrostat] 0.4 mg SUBLINGUAL Q5M PRN 03/09/14 03/24/18 Omeprazole [PriLOSEC] 20 mg PO HS 03/09/14 03/24/18 Atorvastatin [Lipitor] 80 mg PO DAILY 05/08/15 03/24/18 methylPREDNISolone [Medrol] 4 mg PO DAILY 09/09/16 03/24/18 Glimepiride [Amaryl] 2 mg PO AC-BRKFST 10/09/16 03/24/18 Tamsulosin HCl [Flomax] 0.4 mg PO DAILY 10/09/16 03/24/18 Albuterol Nebulized [Ventolin 2.5 mg INHALATION RT-Q6H 03/12/18 03/24/18 Nebulized] Fluticasone/Vilanterol [Breo 1 puff INHALATION RT-DAILY 03/12/18 03/24/18 Ellipta 100-25 Mcg Inhaler] Nadolol [Corgard] 20 mg PO BID 03/12/18 03/24/18 predniSONE See Taper PO DAILY 03/24/18 03/24/18 Insulin Glargine [Lantus] 30 unit SQ HS 03/25/18 03/25/18 Previous Rx's Medication Instructions Recorded Potassium Chloride ER [K-Dur 20] 20 meq PO BID #0 03/15/18 Allergies Allergy/AdvReac Type Severity Reaction Status Date / Time prednisone AdvReac "MADE ME Verified 03/24/18 23:09 VERY ANGRY" Review of Systems ROS Statement: Those systems with pertinent positive or pertinent negative responses have been documented in the HPI. ROS Other: All systems not noted in ROS Statement are negative. Past Medical History Past Medical History: Coronary Artery Disease (CAD), Chest Pain / Angina, Heart Failure, COPD, GERD/Reflux, Hyperlipidemia, Hypertension, Osteoarthritis (OA), Prostate Disorder Additional Past Medical History / Comment(s): 03/12/18 pt wants a flu vaccine before discharge if ok with dr. jean baptiste hx includes: MINI STROKES - MRI DONE AT [facility] SHOWS SMALL VESSEL DX, pt stated diet control dm-no meds no bs checks. SLEEP APNEA/cpap, History of Any Multi-Drug Resistant Organisms: None Reported Past Surgical History: Back Surgery, Heart Catheterization With Stent, Joint Replacement, Orthopedic Surgery Additional Past Surgical History / Comment(s): TOTAL LEFT KNEE, FELIPE KNEE ARTHROSCOPY, rt shoulder replacement, HEART STENT X3,lt hand sx Past Anesthesia/Blood Transfusion Reactions: No Reported Reaction Additional Past Anesthesia/Blood Transfusion Reaction / Comment(s): STATES "HAD A HARD TIME WITH BREATHING POST OP" Date of Last Stent Placement:: 2009 Past Psychological History: No Psychological Hx Reported Smoking Status: Former smoker Past Alcohol Use History: None Reported Past Drug Use History: None Reported - Past Family History Father Family Medical History: CVA/TIA, Hyperlipidemia, Hypertension Mother Family Medical History: Hypertension General Exam Limitations: no limitations General appearance: alert, anxious, in distress Head exam: Present: atraumatic, normocephalic, normal inspection Eye exam: Present: normal appearance, PERRL, EOMI. Absent: scleral icterus, conjunctival injection, periorbital swelling ENT exam: Present: normal exam, mucous membranes moist Neck exam: Present: normal inspection. Absent: tenderness, meningismus, lymphadenopathy Respiratory exam: Present: respiratory distress, wheezes, accessory muscle use, decreased breath sounds, prolonged expiratory. Absent: rales, rhonchi, stridor Cardiovascular Exam: Present: regular rate, normal rhythm, normal heart sounds. Absent: systolic murmur, diastolic murmur, rubs, gallop, clicks GI/Abdominal exam: Present: soft, normal bowel sounds. Absent: distended, tenderness, guarding, rebound, rigid Extremities exam: Present: normal inspection, full ROM, normal capillary refill. Absent: tenderness, pedal edema, joint swelling, calf tenderness Back exam: Present: normal inspection Neurological exam: Present: alert, oriented X3, CN II-XII intact Psychiatric exam: Present: normal affect, normal mood Skin exam: Present: warm, dry, intact, normal color. Absent: rash Course Vital Signs 03/24/18 03/24/18 03/24/18 22:27 23:07 23:20 Temperature 98.8 F Pulse Rate 82 88 92 Respiratory 24 40 H Rate Blood Pressure 143/77 O2 Sat by Pulse 91 L Oximetry 03/24/18 03/25/18 03/25/18 23:50 00:01 00:15 Temperature Pulse Rate 96 79 96 Respiratory 40 H Rate Blood Pressure 120/63 O2 Sat by Pulse 100 Oximetry 03/25/18 00:30 Temperature 98.4 F Pulse Rate 78 Respiratory 36 H Rate Blood Pressure 127/76 O2 Sat by Pulse 96 Oximetry - Reevaluation(s) Reevaluation #1: Medical record is reviewed with history of multiple similar complaints Patient is improving with breathing treatment and pain control Medical Decision Making - Medical Decision Making 68 male the ER for evaluation severe shortness of breath, patient be admitted with recurrent pneumonia and CHF. Patient placed on breathing treatments, will admit to ER for evasive continue monitoring of cardiopulmonary status - Lab Data Result diagrams: 03/24/18 23:00 03/24/18 23:00 Lab Results 03/24/18 03/24/18 03/24/18 Range/Units 23:00 23:00 23:00 WBC 13.7 H (3.8-10.6) k/uL RBC 4.67 (4.30-5.90) m/uL Hgb 14.6 (13.0-17.5) gm/dL Hct 45.5 (39.0-53.0) % MCV 97.4 (80.0-100.0) fL MCH 31.2 (25.0-35.0) pg MCHC 32.1 (31.0-37.0) g/dL RDW 13.8 (11.5-15.5) % Plt Count 187 (150-450) k/uL Neutrophils % 83 % Lymphocytes % 8 % Monocytes % 6 % Eosinophils % 2 % Basophils % 0 % Neutrophils # 11.4 H (1.3-7.7) k/uL Lymphocytes # 1.1 (1.0-4.8) k/uL Monocytes # 0.8 (0-1.0) k/uL Eosinophils # 0.3 (0-0.7) k/uL Basophils # 0.1 (0-0.2) k/uL PT (9.0-12.0) sec INR (<1.2) APTT (22.0-30.0) sec Sodium 142 (137-145) mmol/L Potassium 4.5 (3.5-5.1) mmol/L Chloride 98 (98-107) mmol/L Carbon Dioxide 37 H (22-30) mmol/L Anion Gap 7 mmol/L BUN 20 (9-20) mg/dL Creatinine 0.77 (0.66-1.25) mg/dL Est GFR (CKD-EPI)AfAm >90 (>60 ml/min/1.73 sqM) Est GFR (CKD-EPI)NonAf >90 (>60 ml/min/1.73 sqM) Glucose 73 L (74-99) mg/dL Calcium 8.9 (8.4-10.2) mg/dL Magnesium 1.7 (1.6-2.3) mg/dL Total Bilirubin 0.4 (0.2-1.3) mg/dL AST 29 (17-59) U/L ALT 54 (21-72) U/L Alkaline Phosphatase 105 (38-126) U/L Total Creatine Kinase 31 L (55-170) U/L CK-MB (CK-2) 0.8 (0.0-2.4) ng/mL CK-MB (CK-2) Rel Index 2.6 Troponin I <0.012 (0.000-0.034) ng/mL NT-Pro-B Natriuret Pep pg/mL Total Protein 6.5 (6.3-8.2) g/dL Albumin 3.8 (3.5-5.0) g/dL 03/24/18 03/24/18 Range/Units 23:00 23:00 WBC (3.8-10.6) k/uL RBC (4.30-5.90) m/uL Hgb (13.0-17.5) gm/dL Hct (39.0-53.0) % MCV (80.0-100.0) fL MCH (25.0-35.0) pg MCHC (31.0-37.0) g/dL RDW (11.5-15.5) % Plt Count (150-450) k/uL Neutrophils % % Lymphocytes % % Monocytes % % Eosinophils % % Basophils % % Neutrophils # (1.3-7.7) k/uL Lymphocytes # (1.0-4.8) k/uL Monocytes # (0-1.0) k/uL Eosinophils # (0-0.7) k/uL Basophils # (0-0.2) k/uL PT 9.5 (9.0-12.0) sec INR 0.9 (<1.2) APTT 19.9 L (22.0-30.0) sec Sodium (137-145) mmol/L Potassium (3.5-5.1) mmol/L Chloride (98-107) mmol/L Carbon Dioxide (22-30) mmol/L Anion Gap mmol/L BUN (9-20) mg/dL Creatinine (0.66-1.25) mg/dL Est GFR (CKD-EPI)AfAm (>60 ml/min/1.73 sqM) Est GFR (CKD-EPI)NonAf (>60 ml/min/1.73 sqM) Glucose (74-99) mg/dL Calcium (8.4-10.2) mg/dL Magnesium (1.6-2.3) mg/dL Total Bilirubin (0.2-1.3) mg/dL AST (17-59) U/L ALT (21-72) U/L Alkaline Phosphatase (38-126) U/L Total Creatine Kinase (55-170) U/L CK-MB (CK-2) (0.0-2.4) ng/mL CK-MB (CK-2) Rel Index Troponin I (0.000-0.034) ng/mL NT-Pro-B Natriuret Pep 101 pg/mL Total Protein (6.3-8.2) g/dL Albumin (3.5-5.0) g/dL - EKG Data -: EKG Interpreted by Me (EKG shows sinus rhythm rate of 79, OH 1:30, QRS 92, QTc 477) - Radiology Data Radiology results: report reviewed (Chest x-rays positive for pneumonia and CHF) , image reviewed Critical Care Time Critical Care Time: Yes Total Critical Care Time: 31 Disposition Clinical Impression: Weakness, Acute exacerbation of chronic obstructive airways disease, Community acquired pneumonia, Failure of outpatient treatment, Congestive heart failure Disposition: ADMITTED IP TO THIS [facility] Condition: Fair Is patient prescribed a controlled substance at d/c from ED?: No
[2018-03-24 23:23] LABS: Basophils # (A) 0.1 k/uL (0-0.2); Basophils % (A) 0 %; Eosinophils # (A) 0.3 k/uL (0-0.7); Eosinophils % (A) 2 %; HCT 45.5 % (39.0-53.0); HGB 14.6 gm/dL (13.0-17.5); Lymphocytes # (A) 1.1 k/uL (1.0-4.8); Lymphocytes % (A) 8 %; MCH 31.2 pg (25.0-35.0); MCHC 32.1 g/dL (31.0-37.0); MCV 97.4 fL (80.0-100.0); Monocytes # (A) 0.8 k/uL (0-1.0); Monocytes % (A) 6 %; Neutrophils # (A) 11.4 k/uL (1.3-7.7); Neutrophils % (A) 83 %; Platelet Count 187 k/uL (150-450); RBC 4.67 m/uL (4.30-5.90); RDW 13.8 % (11.5-15.5); WBC 13.7 k/uL (3.8-10.6)
[2018-03-24 23:30] LABS: ALT 54 U/L (21-72); AST 29 U/L (17-59); Albumin 3.8 g/dL (3.5-5.0); Alkaline Phosphatase 105 U/L (38-126); Anion Gap 7 mmol/L; Blood Urea Nitrogen 20 mg/dL (9-20); Calcium 8.9 mg/dL (8.4-10.2); Carbon Dioxide 37 mmol/L (22-30); Chloride 98 mmol/L (98-107); Glucose 73 mg/dL (74-99); Magnesium 1.7 mg/dL (1.6-2.3); Potassium 4.5 mmol/L (3.5-5.1); Sodium 142 mmol/L (137-145); Total Bilirubin 0.4 mg/dL (0.2-1.3); Total Protein 6.5 g/dL (6.3-8.2)
[2018-03-24 23:39] LABS: INR 0.9 (<1.2); Prothrombin Time 9.5 sec (9.0-12.0)
--- NOTE | 2018-03-24 23:42 | XR ---
EXAMINATION TYPE: XR chest 1V portable DATE OF EXAM: 03/24/2018 COMPARISON: 03/13/2018 HISTORY: Difficulty breathing TECHNIQUE: Single frontal view of the chest is obtained. FINDINGS: Heart is normal. There is a minimal infiltrate at the left lung base. Costophrenic angles are clear. There are chest leads. There is right shoulder prosthesis. There is no heart failure. IMPRESSION: There is minimal infiltrate left lung base. There is overall improved aeration of the le ft lung compared to last exam.
[2018-03-24 23:43] LABS: Creatine Kinase 31 U/L (55-170)
[2018-03-24 23:48] LABS: Partial Thromboplastin Time 19.9 sec (22.0-30.0)
[2018-03-24 23:55] LABS: Creatine Kinase MB 0.8 ng/mL (0.0-2.4); Troponin I <0.012 ng/mL (0.000-0.034)
[2018-03-24] MEDS ORDERED: MORPHINE SULFATE 4 MG/ML SYRINGE IVP STA (23:55)
[2018-03-25] MEDS ORDERED: PNEUMONIA PROTOCOL UTILIZED 1 EACH MISC PO PRN (00:18)
[2018-03-25] MEDS ORDERED: ALBUTEROL NEBULIZED 2.5 MG/3 ML INHALATION STA (00:19)
[2018-03-25] MEDS ORDERED: IPRATROPIUM 0.5 MG/2.5 ML NEBU INHALATION STA (00:20)
[2018-03-25 01:23] VITALS: BMI 37.5
[2018-03-25] MEDS: SODIUM CHLORIDE 0.9% 1,000 ML IV SCH ×2 (01:53→10:28)
[2018-03-25 07:32] LABS: Glucose,Whole Blood 55 mg/dL (75-99)
[2018-03-25 07:50] LABS: Glucose,Whole Blood 63 mg/dL (75-99)
[2018-03-25 08:03] LABS: Glucose,Whole Blood 60 mg/dL (75-99)
[2018-03-25 08:21] LABS: Glucose,Whole Blood 94 mg/dL (75-99)
[2018-03-25] MEDS: ENOXAPARIN 40 MG/0.4 ML SYRINGE SQ SCH (09:30)
[2018-03-25] MEDS: PIPERACILLIN-TAZOBACTAM 3.375 GM in SODIUM CHLORIDE 0.9% 100 ML IVPB SCH ×2 (09:30→17:50)
[2018-03-25] MEDS: IPRATROPIUM-ALBUTEROL 3 ML NEB INHALATION SCH ×4 (09:35→20:26)
[2018-03-25] MEDS: HYDROcodone/APAP 5-325MG 1 EACH TAB PO PRN ×3 (09:36→21:25)
[2018-03-25 11:53] LABS: Glucose,Whole Blood 89 mg/dL (75-99)
[2018-03-25 17:12] LABS: Glucose,Whole Blood 98 mg/dL (75-99)
[2018-03-25] MEDS: INSULIN ASPART 100 UNIT/ML 1 ML 10 ML VIAL SQ SCH ×2 (17:35→21:12)
[2018-03-25] MEDS ORDERED: NITROGLYCERIN SL TABS 0.4 MG TAB SUBLINGUAL PRN (17:43)
[2018-03-25] MEDS ORDERED: ACETAMINOPHEN TAB 500 MG TAB PO PRN (17:46)
[2018-03-25] MEDS ORDERED: ALPRAZolam 0.25 MG TAB PO PRN (17:46)
[2018-03-25] MEDS: methylPREDNISolone SOD SUCCI 125 MG/2 ML VIAL IV SCH (18:24)
[2018-03-25] MEDS: TAMSULOSIN 0.4 MG CAP.ER.24H PO SCH (18:24)
--- NOTE | 2018-03-25 18:54 | HP ---
HISTORY AND PHYSICAL CHIEF COMPLAINTS: Shortness of breath, cough and pneumonia. HISTORY OF PRESENT ILLNESS: This 68-year-old gentleman with a past medical history of multiple medical problems, including CAD, COPD, GERD, hypertension, hyperlipidemia, history of DJD, history of CHF, being followed by Dr. Keene in the outpatient setting, was recently admitted with pneumonia. The patient went home. Subsequently patient was having increasing shortness of breath and cough and sputum. Patient came to [facility] and was found to have left lower lobe pneumonia. The patient was admitted for further evaluation and treatment. There is no history of any fever, rigors or chills. No history of headache, loss of consciousness, seizures. PAST MEDICAL HISTORY: 1. History of CAD. 2. History of chest pain. 3. CHF. 4. COPD. 5. GERD. 6. Hypertension. 7. Hyperlipidemia. 8. History of DJD. 9. History of CAD and stent. HOME MEDICATIONS: 1. Lantus 30 units subcutaneously at bedtime. 2. Prednisone daily. 3. Medrol 4 mg p.o. daily. 4. Flomax 0.4 daily. 5. K-Dur 20 mEq p.o. b.i.d. 6. Prilosec 20 mg at bedtime. 7. Nitrostat 0.4 sublingually p.r.n. 8. Corgard 20 mg p.o. b.i.d. 9. Amaryl 2 mg p.o. with breakfast. 10.Breo Ellipta 1 puff daily. 11.Lipitor 80 mg daily. 12.Ventolin 2.5 q.6. ALLERGIES: PREDNISONE. FAMILY HISTORY: History of CVA, TIA, hypertension, hyperlipidemia in the family. SOCIAL HISTORY: Previous history of smoking. No current smoking or alcohol intake. REVIEW OF SYSTEMS: ENT: No diminished hearing. No diminished vision. CARDIOVASCULAR SYSTEM: As mentioned earlier. RESPIRATORY SYSTEM: As mentioned earlier. GI: No nausea, vomiting. : No dysuria or retention. NERVOUS SYSTEM: No numbness, weakness. ALLERGY/IMMUNOLOGY: No asthma, hayfever. MUSCULOSKELETAL: As mentioned earlier. HEMATOLOGY/ONCOLOGY: No history of anemia. ENDOCRINE: No history of diabetes, hypothyroidism. CONSTITUTIONAL: As mentioned earlier. DERMATOLOGY: Negative. RHEUMATOLOGY: Negative. PSYCHIATRY: As mentioned earlier. PHYSICAL EXAMINATION: Patient alert and oriented x3. Pulse is 81, blood pressure 120/64, respiration 16, temperature 99 degrees, pulse ox 94% on 2 L. HEENT: Conjunctivae normal. NECK: No jugular venous distention. CARDIOVASCULAR SYSTEM: S1, S2 normal. RESPIRATORY SYSTEM: Breath sounds diminished at the bases. A few scattered rhonchi and crackles. ABDOMEN: Soft, obese, non-tender. No mass palpable. LEGS: No edema. No swelling. NERVOUS SYSTEM: Higher functions as mentioned earlier. Moves all 4 limbs. No focal motor or sensory deficit. LYMPHATICS: No lymph node palpable in neck, axillae or groin. SKIN: No ulcer, rash, bleeding. JOINTS: No active deforming arthropathy. LABS: WBC 13.6, hemoglobin 14.6 and INR is 0.9, sodium 142, potassium 4.5, glucose 73, and creatine kinase 31. ASSESSMENT: 1. Acute left lower lobe pneumonia, possibly gram-negative, with failure of outpatient treatment. 2. Chronic obstructive pulmonary disease, acute exacerbation. 3. History of coronary artery disease. 4. History of congestive heart failure. 5. Gastroesophageal reflux disease. 6. Hypertension. 7. Hyperlipidemia. 8. History of degenerative joint disease. 9. History of prostate disorder. 10.History of transient ischemic attacks. 11.History of coronary artery disease, stent. 12.History of back surgery, degenerative joint disease. 13.Remote history of nicotine dependence. RECOMMENDATIONS AND DISCUSSION: In this 68-year-old gentleman who presented with multiple complex medical issues, we will monitor the patient closely, continue the current management, continue with symptomatic treatment. Will initiate broad-spectrum IV antibiotics. Obtain cultures. Pulmonary consultation. Optimize bronchodilator treatment. IV steroids. Monitor blood sugars closely. Resume the home medications. Overall prognosis is extremely guarded because of the multiple complex medical issues. Further recommendations to follow. A copy of this dictation is being forwarded to Dr. Keene, who is the primary physician. See orders for further details. Medication reconciliation has been done. MMODL / IJN: [id number] /
[2018-03-25 20:23] LABS: Glucose,Whole Blood 122 mg/dL (75-99)
[2018-03-25] MEDS: FORMOTEROL FUMARATE 20 MCG/2 ML NEBU INHALATION SCH (20:26)
[2018-03-25] MEDS: BUDESONIDE 1 MG/2 ML NEBU INHALATION SCH (20:26)
[2018-03-25] MEDS ORDERED: NON-FORMULARY DRUG (Omeprazole [Prilosec] 20 MG) PO SCH (21:00)
[2018-03-25] MEDS: NADOLOL 20 MG TAB PO SCH (21:24)
[2018-03-25] MEDS: INSULIN DETEMIR 100 UNIT/ML 10 ML VIAL SQ SCH (21:24)
[2018-03-25] MEDS: POTASSIUM CHLORIDE ER 20 MEQ TAB.ER PO SCH (21:24)
[2018-03-26] MEDS ORDERED: LEVOFLOXACIN 750MG-D5W PMX 750 MG in DEXTROSE/WATER 1 150ML.BAG IVPB SCH (00:19)
[2018-03-26] MEDS: methylPREDNISolone SOD SUCCI 125 MG/2 ML VIAL IV SCH ×4 (00:28→19:41)
[2018-03-26] MEDS: PIPERACILLIN-TAZOBACTAM 3.375 GM in SODIUM CHLORIDE 0.9% 100 ML IVPB SCH ×3 (03:27→18:18)
[2018-03-26 04:17] LABS: Hemoglobin A1C 6.9 % (4.0-6.0)
[2018-03-26] MEDS: HYDROcodone/APAP 5-325MG 1 EACH TAB PO PRN ×3 (05:37→21:48)
[2018-03-26 07:23] LABS: Glucose,Whole Blood 171 mg/dL (75-99)
[2018-03-26] MEDS: TAMSULOSIN 0.4 MG CAP.ER.24H PO SCH (07:34)
[2018-03-26] MEDS: PANTOPRAZOLE 40 MG TABLET PO SCH (07:35)
[2018-03-26] MEDS: POTASSIUM CHLORIDE ER 20 MEQ TAB.ER PO SCH ×2 (07:35→21:43)
[2018-03-26] MEDS: ATORVASTATIN 80 MG TAB PO SCH (07:35)
[2018-03-26] MEDS: GLIMEPIRIDE 2 MG TAB PO SCH (07:35)
[2018-03-26] MEDS: ENOXAPARIN 40 MG/0.4 ML SYRINGE SQ SCH (07:36)
[2018-03-26] MEDS: INSULIN ASPART 100 UNIT/ML 1 ML 10 ML VIAL SQ SCH ×4 (07:36→21:43)
[2018-03-26] MEDS: NADOLOL 20 MG TAB PO SCH ×2 (07:40→21:43)
--- NOTE | 2018-03-26 08:21 | XR ---
EXAMINATION TYPE: XR chest 2V DATE OF EXAM: 03/26/2018 COMPARISON: 03/24/2018 HISTORY: Pneumonia. Shortness of breath. TECHNIQUE: Frontal and lateral views of the chest are obtained. FINDINGS: Linear opacities are seen at the lung bases and within the left midlung biapical lucency s uggests underlying COPD. Cardiomediastinal silhouette is stable and nonenlarged. Right humeral arthro plasty is partially visualized. No pneumothorax or sizable pleural effusion. IMPRESSION: Strand-like opacities at the lung bases and within the left midlung suggest atelectasis. However pneumonia is a less likely consideration in the appropriate clinical setting.
[2018-03-26] MEDS: IPRATROPIUM-ALBUTEROL 3 ML NEB INHALATION SCH ×4 (09:14→20:40)
[2018-03-26] MEDS: FORMOTEROL FUMARATE 20 MCG/2 ML NEBU INHALATION SCH ×2 (09:14→20:40)
[2018-03-26] MEDS: BUDESONIDE 1 MG/2 ML NEBU INHALATION SCH ×2 (09:14→20:40)
[2018-03-26 09:15] LABS: Basophils % (A) 0 %; Eosinophils % (A) 0 %; HCT 43.3 % (39.0-53.0); HGB 13.4 gm/dL (13.0-17.5); Hypochromasia Slight; Lymphocytes # (A) 0.6 k/uL (1.0-4.8); Lymphocytes % (A) 7 %; MCHC 31.1 g/dL (31.0-37.0); MCV 99.9 fL (80.0-100.0); Macrocytosis Slight; Mean Platelet Volume 7.7; Monocytes # (A) 0.2 k/uL (0-1.0); Monocytes % (A) 2 %; Neutrophils # (A) 7.5 k/uL (1.3-7.7); Neutrophils % (A) 88 %; Platelet Count 169 k/uL (150-450); RBC 4.33 m/uL (4.30-5.90); WBC 8.5 k/uL (3.8-10.6)
[2018-03-26 09:42] LABS: Anion Gap 10 mmol/L; Blood Urea Nitrogen 23 mg/dL (9-20); Calcium 8.8 mg/dL (8.4-10.2); Carbon Dioxide 26 mmol/L (22-30); Chloride 102 mmol/L (98-107); Glucose 175 mg/dL (74-99); Potassium 4.4 mmol/L (3.5-5.1); Sodium 138 mmol/L (137-145)
[2018-03-26] MEDS: guaiFENesin 600 MG TABLET.ER PO SCH ×2 (11:15→21:43)
[2018-03-26 11:43] LABS: Glucose,Whole Blood 150 mg/dL (75-99)
--- NOTE | 2018-03-26 12:59 | P.CNPUL ---
History of Present Illness Consult date: 03/26/18 Requesting physician: Isabell Huertas Reason for consult: dyspnea, cough, COPD, hypoxemia Chief complaint: Shortness of breath, cough, hypoxemia History of present illness: This is a 68-year-old white male patient of Dr. Keene, was recently hospitalized for immediate acquired pneumonia involving left mid lung, discharged home on 03/15/2018 after significantly improving clinically and radiographically. Patient presented to the emergency department on 03/24/2017 with complaints of increasing shortness of breath, low-grade fever of 99F, dry cough, abdominal discomfort from increased coughing spells. Patient usually wears oxygen on as-needed basis, but he noted his pulse ox at 86%. Patient is an ex-smoker, does have underlying history of COPD, I'll is with Dr. Torres in the pulmonary clinic. His baseline FEV1 is 1.71 L or 58% of predicted. Other medical history includes type 2 diabetes mellitus, hypercholesterolemia, CAD with previous stenting, chronic congestive heart failure, hypertension, GERD without esophagitis, obstructive sleep apnea syndrome, obesity. Patient quit smoking 10 years ago. Chest x-ray showed minimal infiltrate at the left lung base, this was compared to previous chest x-ray from 03/13/2018, and show significant overall improvement of the left lung. Follow-up chest x-ray on 05/2018 shows strand-like opacities at the lung bases and within the left mid lung suggesting atelectasis. Influenza screen was negative, lab work on admission showed WBC of 13.7, hemoglobin of 14.6, electrolytes were within normal limits, CO2 was elevated at 37, renal profile within normal limits, troponin negative 1, proBNP within normal limits at 101. Patient has been started on empiric antibiotics in the form of Zosyn and Levaquin, IV steroids, nebulized bronchodilators. Review of Systems All systems: negative Constitutional: Denies chills, Denies fever Eyes: denies blurred vision, denies pain Ears, nose, mouth and throat: Denies headache, Denies sore throat Cardiovascular: Denies chest pain, Denies shortness of breath Respiratory: Reports cough, Reports dyspnea, Reports home oxygen, Reports pain, Reports sleep apnea, Reports wheezing Gastrointestinal: Denies abdominal pain, Denies diarrhea, Denies nausea, Denies vomiting Musculoskeletal: Denies myalgias Integumentary: Denies pruritus, Denies rash Neurological: Denies numbness, Denies weakness Psychiatric: Denies anxiety, Denies depression Endocrine: Denies fatigue, Denies weight change Past Medical History Past Medical History: Coronary Artery Disease (CAD), Chest Pain / Angina, Heart Failure, COPD, GERD/Reflux, Hyperlipidemia, Hypertension, Osteoarthritis (OA), Prostate Disorder Additional Past Medical History / Comment(s): 03/12/18 pt wants a flu vaccine before discharge if ok with other hx includes: MINI STROKES - MRI DONE AT [facility] SHOWS SMALL VESSEL DX, pt stated diet control dm-no meds no bs checks. SLEEP APNEA/cpap, History of Any Multi-Drug Resistant Organisms: None Reported Past Surgical History: Back Surgery, Heart Catheterization With Stent, Joint Replacement, Orthopedic Surgery Additional Past Surgical History / Comment(s): TOTAL LEFT KNEE, FELIPE KNEE ARTHROSCOPY, rt shoulder replacement, HEART STENT X3,lt hand sx Past Anesthesia/Blood Transfusion Reactions: No Reported Reaction Additional Past Anesthesia/Blood Transfusion Reaction / Comment(s): STATES "HAD A HARD TIME WITH BREATHING POST OP" Date of Last Stent Placement:: 2009 Past Psychological History: No Psychological Hx Reported Smoking Status: Former smoker Past Alcohol Use History: None Reported Past Drug Use History: None Reported - Past Family History Father Family Medical History: CVA/TIA, Hyperlipidemia, Hypertension Mother Family Medical History: Hypertension Medications and Allergies Home Medications Medication Instructions Recorded Confirmed Type Nitroglycerin Sl Tabs [Nitrostat] 0.4 mg SUBLINGUAL Q5M PRN 03/09/14 03/24/18 History Omeprazole [PriLOSEC] 20 mg PO HS 03/09/14 03/24/18 History Atorvastatin [Lipitor] 80 mg PO DAILY 05/08/15 03/24/18 History methylPREDNISolone [Medrol] 4 mg PO DAILY 09/09/16 03/24/18 History Glimepiride [Amaryl] 2 mg PO AC-BRKFST 10/09/16 03/24/18 History Tamsulosin HCl [Flomax] 0.4 mg PO DAILY 10/09/16 03/24/18 History Albuterol Nebulized [Ventolin 2.5 mg INHALATION RT-Q6H 03/12/18 03/24/18 History Nebulized] Fluticasone/Vilanterol [Breo 1 puff INHALATION RT-DAILY 03/12/18 03/24/18 History Ellipta 100-25 Mcg Inhaler] Nadolol [Corgard] 20 mg PO BID 03/12/18 03/24/18 History Potassium Chloride ER [K-Dur 20] 20 meq PO BID #0 03/15/18 03/24/18 Rx predniSONE See Taper PO DAILY 03/24/18 03/24/18 History Insulin Glargine [Lantus] 30 unit SQ HS 03/25/18 03/25/18 History Allergies Allergy/AdvReac Type Severity Reaction Status Date / Time prednisone AdvReac "MADE ME Verified 03/24/18 23:09 VERY ANGRY" Physical Exam Vitals: Vital Signs Temp Pulse Pulse Resp BP Pulse Ox 03/26/18 12:15 72 03/26/18 12:01 72 03/26/18 09:39 72 03/26/18 09:27 68 03/26/18 09:15 64 03/26/18 07:00 97.5 F L 69 16 120/64 93 L 03/26/18 00:15 97.8 F 76 16 110/67 90 L 03/25/18 20:50 89 18 03/25/18 20:40 88 18 03/25/18 20:26 84 18 03/25/18 20:13 98.9 F 85 16 129/68 92 L 03/25/18 16:48 88 18 03/25/18 16:36 81 18 92 L 03/25/18 14:39 99 F 86 16 110/64 94 L 03/25/18 12:57 98 03/25/18 12:47 98 GENERAL EXAM: Alert, pleasant, 68-year-old white male, comfortable in no apparent distress. HEAD: Normocephalic/atraumatic. EYES: Normal reaction of pupils, equal size. Conjunctiva pink, sclera white. NOSE: Clear with pink turbinates. THROAT: No erythema or exudates. NECK: No masses, no JVD, no thyroid enlargement, no adenopathy. CHEST: No chest wall deformity. Symmetrical expansion. LUNGS: Equal air entry with diffuse wheezes, and rhonchi CVS: Regular rate and rhythm, normal S1 and S2, no gallops, no murmurs, no rubs ABDOMEN: Soft, nontender. No hepatosplenomegaly, normal bowel sounds, no guarding or rigidity. EXTREMITIES: No clubbing, no edema, no cyanosis, 2+ pulses and upper and lower extremities. MUSCULOSKELETAL: Muscle strength and tone normal. SPINE: No scoliosis or deformity SKIN: No rashes CENTRAL NERVOUS SYSTEM: Alert and oriented -3. No focal deficits, tone is normal in all 4 extremities. PSYCHIATRIC: Alert and oriented -3. Appropriate affect. Intact judgment and insight. Results - Laboratory Findings CBC and BMP: 03/26/18 07:56 03/26/18 07:56 PT/INR, D-dimer PT 9.5 sec (9.0-12.0) 03/24/18 23:00 INR 0.9 (<1.2) 03/24/18 23:00 Abnormal lab findings: Abnormal Labs 03/24/18 03/24/18 03/24/18 23:00 23:00 23:00 WBC 13.7 H Neutrophils # 11.4 H Lymphocytes # APTT Carbon Dioxide 37 H BUN Glucose 73 L POC Glucose (mg/dL) Hemoglobin A1c Total Creatine Kinase 31 L 03/24/18 03/24/18 03/25/18 23:00 23:00 07:21 WBC Neutrophils # Lymphocytes # APTT 19.9 L Carbon Dioxide BUN Glucose POC Glucose (mg/dL) 55 L Hemoglobin A1c 6.9 H Total Creatine Kinase 03/25/18 03/25/18 03/25/18 07:38 07:51 20:22 WBC Neutrophils # Lymphocytes # APTT Carbon Dioxide BUN Glucose POC Glucose (mg/dL) 63 L 60 L 122 H Hemoglobin A1c Total Creatine Kinase 03/26/18 03/26/18 03/26/18 07:12 07:56 07:56 WBC Neutrophils # Lymphocytes # 0.6 L APTT Carbon Dioxide BUN 23 H Glucose 175 H POC Glucose (mg/dL) 171 H Hemoglobin A1c Total Creatine Kinase 03/26/18 11:30 WBC Neutrophils # Lymphocytes # APTT Carbon Dioxide BUN Glucose POC Glucose (mg/dL) 150 H Hemoglobin A1c Total Creatine Kinase - Diagnostic Findings Chest x-ray: report reviewed, image reviewed Additional studies: EKG reviewed Assessment and Plan Plan: Assessment: #1. Acute on chronic hypoxemic respiratory failure secondary to acute exacerbation of chronic obstructive pulmonary disease with tracheobronchitis. Chest x-ray shows actually improving minimal left basilar infiltrate versus atelectasis since previous admission in February 2018 #2. Recent hospitalization for community acquired pneumonia involving the extensive portion of the lateral left mid lung #3. Moderately severe COPD with chronic hypoxemic respiratory failure with baseline FEV1 of 1.71 L or 58% of predicted #4. Coronary artery disease with previous stenting #5. 2 diabetes mellitus #6. Hypertension, hypercholesterolemia #7. GERD #8. Obstructive sleep apnea syndrome #9. Obesity #10. Severe arthritis #11. Nicotine dependence, in remission, patient quit 10 years ago Plan: Continue with current antibiotic coverage, collect sputum culture, chest x-rays were reviewed with Dr. Torres, and actually show improving minimal left basilar infiltrate versus atelectasis. Follow-up blood work has been reviewed, on today 's labs there is no leukocytosis, blood culture showed no growth so far, afebrile, influenza screen was negative. We'll continue with IV Solu-Medrol, nebulized bronchodilators. We'll continue to follow I performed a history & physical examination of the patient and discussed their management with my nurse practitioner, Skylar Mckoy. I reviewed the nurse practitioner's note and agree with the documented findings and plan of care. Lung sounds are positive for diffuse wheezes and rhonchi. The findings and the impression was discussed with the patient. I attest to the documentation by the nurse practitioner. Time with Patient: Greater than 30
[2018-03-26 17:34] LABS: Glucose,Whole Blood 290 mg/dL (75-99)
[2018-03-26 19:46] LABS: Appearance,Urine Clear (Clear); Bilirubin,Urine Negative (Negative); Blood,Urine Negative (Negative); Color,Urine Yellow; Glucose,Urine (UA) 3+ (Negative); Ketones,Urine Negative (Negative); Leukocyte Esterase,Urine Negative (Negative); Nitrite,Urine Negative (Negative); Protein,Urine Negative (Negative); Specific Gravity,Urine 1.017 (1.001-1.035); Urobilinogen,Urine <2.0 mg/dL (<2.0)
[2018-03-26 20:56] LABS: Glucose,Whole Blood 231 mg/dL (75-99)
[2018-03-26] MEDS: LEVOFLOXACIN 750 MG TAB PO SCH (21:43)
[2018-03-26] MEDS: INSULIN DETEMIR 100 UNIT/ML 10 ML VIAL SQ SCH (21:43)
--- NOTE | 2018-03-26 23:33 | PN ---
PROGRESS NOTE DATE OF SERVICE: 03/26/2018 This 68-year-old gentleman who was admitted with shortness of breath and cough and pneumonia is being closely monitored at this time. The patient has possible acute left lower lobe pneumonia. Patient has COPD, acute exacerbation, also. The most recent chest x-ray done today, which I reviewed personally, showed increased bronchovascular markings bilaterally. Dr. Chang has also seen the patient. He is being closely monitored at this time. Patient is also on IV antibiotics. Past medical history reviewed. REVIEW OF SYSTEMS: CARDIOVASCULAR SYSTEM: No angina, palpitations. RESPIRATORY SYSTEM: As mentioned earlier. GI: As mentioned earlier. : No dysuria or retention. NERVOUS SYSTEM: No numbness, weakness. CURRENT MEDICATIONS: 1. Tylenol p.r.n. 2. [place] 5 mg. 3. DuoNeb q.i.d. and p.r.n. 4. Xanax 0.25 t.i.d. 5. Lipitor 80 mg. 6. Pulmicort 1 mg b.i.d. 7. Lovenox. 8. Perforomist. 9. Amaryl. 10.Mucinex. 11.NovoLog. 12.Levemir 30 units. 13.Levaquin 750 q.24. 14.Solu-Medrol. 15.Protonix. 16.Zosyn 3.375 IV. 17.Flomax. 18.Restoril. PHYSICAL EXAMINATION: Patient is alert, oriented Pulse is 80, blood pressure 159/76, respirations 16 , temperature 97.5, pulse ox 92% on room air. HEENT: Conjunctivae normal. NECK: No jugular venous distention. CARDIOVASCULAR SYSTEM: S1, S2 muffled. RESPIRATORY SYSTEM: Breath sounds diminished at the bases. A few scattered rhonchi and crackles. ABDOMEN: Soft, non-tender. LEGS: No edema. No swelling. NERVOUS SYSTEM: Higher functions as mentioned earlier. Moves all 4 limbs. LYMPHATICS: No lymph node palpable in neck, axillae or groin. SKIN: No ulcer, rash, bleeding. JOINTS: No active deforming arthropathy. LABS: CBC within normal limits. Glucose 170, 150, 231. UA noted. ASSESSMENT: 1. Acute left lower lobe pneumonia, possibly gram-negative, possibly healthcare- associated, with failure of outpatient treatment. 2. Chronic obstructive pulmonary disease, acute exacerbation. 3. History of coronary artery disease. 4. History of congestive heart failure. 5. Gastroesophageal reflux disease. 6. Hypertension. 7. Hyperlipidemia. 8. History of degenerative joint disease. 9. History of prostate disorder. 10.History of transient ischemic attack. 11.History of coronary artery disease, stent. 12.History of back surgery, degenerative joint disease. 13.Remote history of nicotine dependence. RECOMMENDATIONS AND DISCUSSION: I recommend to continue current medication, continue with the monitoring, symptomatic treatment. Otherwise at this time I would recommend continue with the IV antibiotics, bronchodilators. Closely follow with Dr. Chang. Continue with the broad- spectrum IV antibiotics. Follow the cultures. Prognosis guarded because of the multiple complex medical issues. Further recommendations to follow. MMODL / IJN: [id number] / MTDD
[2018-03-27] MEDS: methylPREDNISolone SOD SUCCI 125 MG/2 ML VIAL IV SCH ×5 (00:49→23:09)
[2018-03-27] MEDS: PIPERACILLIN-TAZOBACTAM 3.375 GM in SODIUM CHLORIDE 0.9% 100 ML IVPB SCH ×3 (03:20→17:52)
[2018-03-27 07:22] LABS: Glucose,Whole Blood 116 mg/dL (75-99)
[2018-03-27 07:35] LABS: Basophils % (A) 0 %; Eosinophils % (A) 0 %; HCT 43.2 % (39.0-53.0); HGB 13.5 gm/dL (13.0-17.5); Lymphocytes # (A) 1.2 k/uL (1.0-4.8); Lymphocytes % (A) 10 %; MCH 30.8 pg (25.0-35.0); MCHC 31.3 g/dL (31.0-37.0); MCV 98.4 fL (80.0-100.0); Mean Platelet Volume 8.4; Monocytes # (A) 0.5 k/uL (0-1.0); Monocytes % (A) 4 %; Neutrophils # (A) 10.8 k/uL (1.3-7.7); Neutrophils % (A) 85 %; Platelet Count 176 k/uL (150-450); RBC 4.39 m/uL (4.30-5.90); RDW 13.8 % (11.5-15.5); WBC 12.8 k/uL (3.8-10.6)
[2018-03-27 07:39] LABS: Anion Gap 8 mmol/L; Blood Urea Nitrogen 24 mg/dL (9-20); Calcium 9.4 mg/dL (8.4-10.2); Carbon Dioxide 30 mmol/L (22-30); Chloride 105 mmol/L (98-107); Glucose 121 mg/dL (74-99); Potassium 4.4 mmol/L (3.5-5.1); Sodium 143 mmol/L (137-145)
[2018-03-27] MEDS: IPRATROPIUM-ALBUTEROL 3 ML NEB INHALATION SCH ×4 (08:08→21:10)
[2018-03-27] MEDS: FORMOTEROL FUMARATE 20 MCG/2 ML NEBU INHALATION SCH ×2 (08:08→21:10)
[2018-03-27] MEDS: BUDESONIDE 1 MG/2 ML NEBU INHALATION SCH ×2 (08:08→21:10)
[2018-03-27] MEDS: INSULIN ASPART 100 UNIT/ML 1 ML 10 ML VIAL SQ SCH ×4 (08:39→23:00)
[2018-03-27] MEDS: ATORVASTATIN 80 MG TAB PO SCH (08:40)
[2018-03-27] MEDS: ENOXAPARIN 40 MG/0.4 ML SYRINGE SQ SCH (08:40)
[2018-03-27] MEDS: GLIMEPIRIDE 2 MG TAB PO SCH (08:41)
[2018-03-27] MEDS: NADOLOL 20 MG TAB PO SCH ×2 (08:41→23:01)
[2018-03-27] MEDS: POTASSIUM CHLORIDE ER 20 MEQ TAB.ER PO SCH ×2 (08:41→23:00)
[2018-03-27] MEDS: PANTOPRAZOLE 40 MG TABLET PO SCH (08:41)
[2018-03-27] MEDS: TAMSULOSIN 0.4 MG CAP.ER.24H PO SCH (08:42)
[2018-03-27] MEDS: guaiFENesin 600 MG TABLET.ER PO SCH ×2 (08:42→23:01)
[2018-03-27 11:54] LABS: Glucose,Whole Blood 139 mg/dL (75-99)
--- NOTE | 2018-03-27 15:47 | P.PN ---
Subjective Progress Note Date: 03/27/18 Principal diagnosis: Acute on chronic hypoxemic restrictive failure secondary to acute exacerbation of chronic obstructive pulmonary disease. This is a 68-year-old white male patient of Dr. Keene, was recently hospitalized for community acquired pneumonia involving left mid lung, discharged home on 03/15/2018 after significantly improving clinically and radiographically. Patient presented to the emergency department on 03/24/2017 with complaints of increasing shortness of breath, low-grade fever of 99F, dry cough, abdominal discomfort from increased coughing spells. Patient usually wears oxygen on as-needed basis, but he noted his pulse ox at 86%. Patient is an ex-smoker, does have underlying history of COPD, I'll is with Dr. Torres in the pulmonary clinic. His baseline FEV1 is 1.71 L or 58% of predicted. Other medical history includes type 2 diabetes mellitus, hypercholesterolemia, CAD with previous stenting, chronic congestive heart failure, hypertension, GERD without esophagitis, obstructive sleep apnea syndrome, obesity. Patient quit smoking 10 years ago. Chest x-ray showed minimal infiltrate at the left lung base, this was compared to previous chest x-ray from 03/13/2018, and show significant overall improvement of the left lung. Follow-up chest x-ray on 05/2018 shows strand-like opacities at the lung bases and within the left mid lung suggesting atelectasis. Influenza screen was negative, lab work on admission showed WBC of 13.7, hemoglobin of 14.6, electrolytes were within normal limits, CO2 was elevated at 37, renal profile within normal limits, troponin negative 1, proBNP within normal limits at 101. Patient has been started on empiric antibiotics in the form of Zosyn and Levaquin, IV steroids, nebulized bronchodilators. Patient seen again today 03/27/2018 in follow-up on the regular medical floor. He is awake and alert in no acute distress. Ambulating within his room. He is breathing a bit easier today as compared to yesterday. Still not quite back to his baseline. Maintaining O2 saturations in the 90s on 3 L/m per nasal cannula. Afebrile. Hemodynamically stable. Blood culture reveals no growth to date. White count 12.8. Hemoglobin 13.5. Creatinine 0.75. Currently on Zosyn and Levaquin. Objective - Vital Signs Vital signs: Vital Signs Temp 97.7 F 03/27/18 14:27 Pulse 69 03/27/18 14:27 Resp 18 03/27/18 14:27 BP 150/76 03/27/18 14:27 Pulse Ox 92 L 03/27/18 14:27 Intake & Output 03/26/18 03/27/18 03/27/18 18:59 06:59 18:59 Intake Total 600 Balance 600 Intake: Intake, IV Titration 600 Amount Levofloxacin 750Mg-D5w 100 Pmx 750 mg In Dextrose/ Water 1 150ml.bag @ 100 mls/hr IVPB Q24H JOSE Rx#: [id number] Piperacillin-Tazobactam 3 100 .375 gm In Sodium Chloride 0.9% 100 ml @ 25 mls/hr IVPB Q8H JOSE Rx#: [id number] Sodium Chloride 0.9% 1, 400 000 ml @ 100 mls/hr IV . Q10H JOSE Rx#:[id number] Other: # Voids 375 - Exam GENERAL EXAM: Alert, pleasant, 68-year-old male, comfortable in no apparent distress. On nasal cannula. HEAD: Normocephalic/atraumatic. EYES: Normal reaction of pupils, equal size. Conjunctiva pink, sclera white. NOSE: Clear with pink turbinates. THROAT: No erythema or exudates. NECK: No masses, no JVD, no thyroid enlargement, no adenopathy. CHEST: No chest wall deformity. Symmetrical expansion. LUNGS: Equal air entry with diffuse wheezes, and rhonchi CVS: Regular rate and rhythm, normal S1 and S2, no gallops, no murmurs, no rubs ABDOMEN: Soft, nontender. No hepatosplenomegaly, normal bowel sounds, no guarding or rigidity. EXTREMITIES: No clubbing, no edema, no cyanosis, 2+ pulses and upper and lower extremities. MUSCULOSKELETAL: Muscle strength and tone normal. SPINE: No scoliosis or deformity SKIN: No rashes CENTRAL NERVOUS SYSTEM: Alert and oriented -3. No focal deficits, tone is normal in all 4 extremities. PSYCHIATRIC: Alert and oriented -3. Appropriate affect. Intact judgment and insight. - Labs CBC & Chem 7: 03/27/18 06:59 03/27/18 06:59 Labs: Abnormal Lab Results - Last 24 Hours (Table) 03/26/18 03/26/18 03/26/18 Range/Units 17:22 19:00 20:45 WBC (3.8-10.6) k/uL Neutrophils # (1.3-7.7) k/uL BUN (9-20) mg/dL Glucose (74-99) mg/dL POC Glucose (mg/dL) 290 H 231 H (75-99) mg/dL Urine Glucose (UA) 3+ H (Negative) 03/27/18 03/27/18 03/27/18 Range/Units 06:59 06:59 07:11 WBC 12.8 H (3.8-10.6) k/uL Neutrophils # 10.8 H (1.3-7.7) k/uL BUN 24 H (9-20) mg/dL Glucose 121 H (74-99) mg/dL POC Glucose (mg/dL) 116 H (75-99) mg/dL Urine Glucose (UA) (Negative) 03/27/18 Range/Units 11:43 WBC (3.8-10.6) k/uL Neutrophils # (1.3-7.7) k/uL BUN (9-20) mg/dL Glucose (74-99) mg/dL POC Glucose (mg/dL) 139 H (75-99) mg/dL Urine Glucose (UA) (Negative) Microbiology - Last 24 Hours (Table) 03/26/18 19:00 Urine Culture - Preliminary Urine,Clean Catch 03/24/18 23:00 Blood Culture - Preliminary Blood No Growth after 48 hours Assessment and Plan Assessment: Assessment: #1. Acute on chronic hypoxemic respiratory failure secondary to acute exacerbation of chronic obstructive pulmonary disease with tracheobronchitis. Chest x-ray shows actually improving minimal left basilar infiltrate versus atelectasis since previous admission in February 2018 #2. Recent hospitalization for community acquired pneumonia involving the extensive portion of the lateral left mid lung #3. Moderately severe COPD with chronic hypoxemic respiratory failure with baseline FEV1 of 1.71 L or 58% of predicted #4. Coronary artery disease with previous stenting #5. 2 diabetes mellitus #6. Hypertension, hypercholesterolemia #7. GERD #8. Obstructive sleep apnea syndrome #9. Obesity #10. Severe arthritis #11. Nicotine dependence, in remission, patient quit 10 years ago Plan: The patient was seen and evaluated by Dr. Chang. He is improved today as compared to yesterday. We'll continue with his current treatment plan. We'll increase his activity as tolerated. We'll continue to follow. I, the cosigning physician, performed a history & physical examination of the patient. Lungs sounds with bilateral end expiratory wheeze, diminished. Maintaining good O2 saturations in the 90s on 3 L/m per nasal cannula. I discussed the assessment and plan of care with my nurse practitioner, Judi Crawford. I attest to the above note as dictated by her.
[2018-03-27] MEDS ORDERED: FUROSEMIDE 40 MG TAB PO STA (16:16)
[2018-03-27 17:13] LABS: Glucose,Whole Blood 123 mg/dL (75-99)
[2018-03-27] MEDS: guaiFENesin-DM 100-10MG/5ML 10 ML CUP PO PRN (17:53)
--- NOTE | 2018-03-27 20:32 | PN ---
PROGRESS NOTE DATE OF SERVICE: 03/27/2018 This 68-year-old gentleman who was admitted with shortness of breath and cough and sputum is closely monitored at this time. The patient also was evaluated by Dr. Chang also. The patient being closely monitored. No chest pain. No palpitations. No fever. The possibility of hospital-acquired pneumonia is EXAM: Alert and oriented x2. Pulse 69, blood pressure 150/76, respiration 18, temperature 97.7, pulse ox 92% on 3 L. HEENT: Conjunctivae normal. NECK: No jugular venous distention. CARDIOVASCULAR: S1, S2. RESPIRATORY: Breath sounds diminished in the bases. A few scattered rhonchi and crackles. ABDOMEN is soft, nontender. CENTRAL NERVOUS SYSTEM: No edema. No swelling. LAB STUDIES: WBC 12.8, hemoglobin 13.9. Accu-Cheks noted. ASSESSMENT: 1. Acute left lower pneumonia possibly gram-negative, possible healthcare associated pneumonia with failure of outpatient treatment. 2. Chronic obstructive pulmonary disease acute exacerbation. 3. History of coronary artery disease. 4. History of congestive heart failure. 5. Gastroesophageal reflux disease. 6. Hypertension. 7. Hyperlipidemia. 8. History of degenerative joint disease. 9. History of prostate disorder. 10.History of transient ischemic attack. 11.History of coronary artery disease stent. 12.History of back surgery, degenerative joint disease. 13.Remote history of nicotine dependence. RECOMMENDATIONS AND DISCUSSION: Continue current medications. Continue with monitoring and symptomatic treatment , management and otherwise we will follow the patient closely. Continue the bronchodilators. Continue the steroids. Continue the empiric antibiotics. Closely follow with Pulmonary. Guarded prognosis. Further recommendations to follow. MMODL / IJN: [id number] / MTDD
[2018-03-27 20:35] LABS: Glucose,Whole Blood 215 mg/dL (75-99)
[2018-03-27] MEDS: INSULIN DETEMIR 100 UNIT/ML 10 ML VIAL SQ SCH (23:00)
[2018-03-27] MEDS: LEVOFLOXACIN 750 MG TAB PO SCH (23:01)
[2018-03-27] MEDS: TEMAZEPAM 15 MG CAP PO PRN (23:15)
[2018-03-28] MEDS: guaiFENesin-DM 100-10MG/5ML 10 ML CUP PO PRN (02:14)
[2018-03-28] MEDS: PIPERACILLIN-TAZOBACTAM 3.375 GM in SODIUM CHLORIDE 0.9% 100 ML IVPB SCH ×3 (02:14→18:00)
[2018-03-28 06:41] LABS: Glucose,Whole Blood 99 mg/dL (75-99)
[2018-03-28] MEDS: INSULIN ASPART 100 UNIT/ML 1 ML 10 ML VIAL SQ SCH ×4 (07:17→21:27)
[2018-03-28] MEDS: methylPREDNISolone SOD SUCCI 125 MG/2 ML VIAL IV SCH ×3 (07:21→17:19)
[2018-03-28] MEDS: FUROSEMIDE 40 MG TAB PO SCH ×2 (07:31→16:33)
[2018-03-28] MEDS: TAMSULOSIN 0.4 MG CAP.ER.24H PO SCH (07:31)
[2018-03-28] MEDS: PANTOPRAZOLE 40 MG TABLET PO SCH (07:31)
[2018-03-28] MEDS: guaiFENesin 600 MG TABLET.ER PO SCH ×2 (07:31→21:29)
[2018-03-28] MEDS: ATORVASTATIN 80 MG TAB PO SCH (07:31)
[2018-03-28] MEDS: ENOXAPARIN 40 MG/0.4 ML SYRINGE SQ SCH (07:32)
[2018-03-28] MEDS: GLIMEPIRIDE 2 MG TAB PO SCH (07:32)
[2018-03-28] MEDS: NADOLOL 20 MG TAB PO SCH ×2 (07:32→22:01)
[2018-03-28] MEDS: POTASSIUM CHLORIDE ER 20 MEQ TAB.ER PO SCH ×2 (07:32→21:29)
[2018-03-28 08:40] LABS: Anion Gap 9 mmol/L; Blood Urea Nitrogen 27 mg/dL (9-20); Calcium 9.3 mg/dL (8.4-10.2); Carbon Dioxide 25 mmol/L (22-30); Chloride 108 mmol/L (98-107); Glucose 85 mg/dL (74-99); Sodium 142 mmol/L (137-145)
[2018-03-28 08:41] LABS: Potassium 4.9 mmol/L (3.5-5.1)
[2018-03-28 08:47] LABS: Basophils # (A) 0.1 k/uL (0-0.2); Basophils % (A) 0 %; Eosinophils # (A) 0.1 k/uL (0-0.7); Eosinophils % (A) 1 %; HCT 43.3 % (39.0-53.0); HGB 13.8 gm/dL (13.0-17.5); Lymphocytes # (A) 1.4 k/uL (1.0-4.8); Lymphocytes % (A) 10 %; MCH 30.8 pg (25.0-35.0); MCHC 31.8 g/dL (31.0-37.0); MCV 96.9 fL (80.0-100.0); Monocytes # (A) 0.6 k/uL (0-1.0); Monocytes % (A) 4 %; Neutrophils # (A) 12.3 k/uL (1.3-7.7); Neutrophils % (A) 83 %; Platelet Count 193 k/uL (150-450); RBC 4.47 m/uL (4.30-5.90); RDW 14.2 % (11.5-15.5); WBC 14.8 k/uL (3.8-10.6)
[2018-03-28] MEDS: IPRATROPIUM-ALBUTEROL 3 ML NEB INHALATION SCH ×4 (09:05→19:52)
[2018-03-28] MEDS: BUDESONIDE 1 MG/2 ML NEBU INHALATION SCH ×2 (09:06→19:53)
[2018-03-28] MEDS: FORMOTEROL FUMARATE 20 MCG/2 ML NEBU INHALATION SCH ×2 (09:06→19:53)
[2018-03-28 11:21] LABS: Glucose,Whole Blood 185 mg/dL (75-99)
--- NOTE | 2018-03-28 13:36 | P.PN ---
Subjective Progress Note Date: 03/28/18 Principal diagnosis: Acute on chronic hypoxemic restrictive failure secondary to acute exacerbation of chronic obstructive pulmonary disease. This is a 68-year-old white male patient of Dr. Keene, was recently hospitalized for community acquired pneumonia involving left mid lung, discharged home on 03/15/2018 after significantly improving clinically and radiographically. Patient presented to the emergency department on 03/24/2017 with complaints of increasing shortness of breath, low-grade fever of 99F, dry cough, abdominal discomfort from increased coughing spells. Patient usually wears oxygen on as-needed basis, but he noted his pulse ox at 86%. Patient is an ex-smoker, does have underlying history of COPD, I'll is with Dr. Torres in the pulmonary clinic. His baseline FEV1 is 1.71 L or 58% of predicted. Other medical history includes type 2 diabetes mellitus, hypercholesterolemia, CAD with previous stenting, chronic congestive heart failure, hypertension, GERD without esophagitis, obstructive sleep apnea syndrome, obesity. Patient quit smoking 10 years ago. Chest x-ray showed minimal infiltrate at the left lung base, this was compared to previous chest x-ray from 03/13/2018, and show significant overall improvement of the left lung. Follow-up chest x-ray on 05/2018 shows strand-like opacities at the lung bases and within the left mid lung suggesting atelectasis. Influenza screen was negative, lab work on admission showed WBC of 13.7, hemoglobin of 14.6, electrolytes were within normal limits, CO2 was elevated at 37, renal profile within normal limits, troponin negative 1, proBNP within normal limits at 101. Patient has been started on empiric antibiotics in the form of Zosyn and Levaquin, IV steroids, nebulized bronchodilators. Patient seen again today 03/27/2018 in follow-up on the regular medical floor. He is awake and alert in no acute distress. Ambulating within his room. He is breathing a bit easier today as compared to yesterday. Still not quite back to his baseline. Maintaining O2 saturations in the 90s on 3 L/m per nasal cannula. Afebrile. Hemodynamically stable. Blood culture reveals no growth to date. White count 12.8. Hemoglobin 13.5. Creatinine 0.75. Currently on Zosyn and Levaquin. The patient is seen today 03/28/2018 in follow-up on the regular medical floor. He is awake and alert in no acute distress. He is nearly back to his baseline. No worsening shortness of breath, cough or congestion. No chills or night sweats. Maintaining O2 saturations in the 90s on room air. He's been afebrile. Hemodynamically stable. A culture reveals no growth. Urine culture reveals no growth. White count 14.8. Hemoglobin 13.8. Creatinine 0.71. Objective - Vital Signs Vital signs: Vital Signs Temp 97.6 F 03/28/18 07:21 Pulse 74 03/28/18 13:25 Resp 18 03/28/18 07:21 BP 153/82 03/28/18 07:21 Pulse Ox 96 03/28/18 07:21 Intake & Output 03/27/18 03/28/18 03/28/18 18:59 06:59 18:59 Intake Total 100 Balance 100 Intake: Intake, IV Titration 100 Amount Piperacillin-Tazobactam 3 100 .375 gm In Sodium Chloride 0.9% 100 ml @ 25 mls/hr IVPB Q8H [facility] Rx#: [id number] Other: # Voids 1 1 - Exam GENERAL EXAM: Alert, pleasant, 68-year-old male, comfortable in no apparent distress. On nasal cannula. HEAD: Normocephalic/atraumatic. EYES: Normal reaction of pupils, equal size. Conjunctiva pink, sclera white. NOSE: Clear with pink turbinates. THROAT: No erythema or exudates. NECK: No masses, no JVD, no thyroid enlargement, no adenopathy. CHEST: No chest wall deformity. Symmetrical expansion. LUNGS: Equal air entry with diffuse wheezes, and rhonchi CVS: Regular rate and rhythm, normal S1 and S2, no gallops, no murmurs, no rubs ABDOMEN: Soft, nontender. No hepatosplenomegaly, normal bowel sounds, no guarding or rigidity. EXTREMITIES: No clubbing, no edema, no cyanosis, 2+ pulses and upper and lower extremities. MUSCULOSKELETAL: Muscle strength and tone normal. SPINE: No scoliosis or deformity SKIN: No rashes CENTRAL NERVOUS SYSTEM: Alert and oriented -3. No focal deficits, tone is normal in all 4 extremities. PSYCHIATRIC: Alert and oriented -3. Appropriate affect. Intact judgment and insight. - Labs CBC & Chem 7: 03/28/18 07:41 03/28/18 07:41 Labs: Abnormal Lab Results - Last 24 Hours (Table) 03/27/18 03/27/18 03/28/18 Range/Units 17:02 20:23 07:41 WBC 14.8 H (3.8-10.6) k/uL Neutrophils # 12.3 H (1.3-7.7) k/uL Chloride (98-107) mmol/L BUN (9-20) mg/dL POC Glucose (mg/dL) 123 H 215 H (75-99) mg/dL 03/28/18 03/28/18 Range/Units 07:41 11:10 WBC (3.8-10.6) k/uL Neutrophils # (1.3-7.7) k/uL Chloride 108 H (98-107) mmol/L BUN 27 H (9-20) mg/dL POC Glucose (mg/dL) 185 H (75-99) mg/dL Microbiology - Last 24 Hours (Table) 03/26/18 19:00 Urine Culture - Final Urine,Clean Catch 03/24/18 23:00 Blood Culture - Preliminary Blood No Growth after 72 hours Assessment and Plan Assessment: Assessment: #1. Acute on chronic hypoxemic respiratory failure secondary to acute exacerbation of chronic obstructive pulmonary disease with tracheobronchitis. Chest x-ray shows actually improving minimal left basilar infiltrate versus atelectasis since previous admission in February 2018 #2. Recent hospitalization for community acquired pneumonia involving the extensive portion of the lateral left mid lung #3. Moderately severe COPD with chronic hypoxemic respiratory failure with baseline FEV1 of 1.71 L or 58% of predicted #4. Coronary artery disease with previous stenting #5. 2 diabetes mellitus #6. Hypertension, hypercholesterolemia #7. GERD #8. Obstructive sleep apnea syndrome #9. Obesity #10. Severe arthritis #11. Nicotine dependence, in remission, patient quit 10 years ago Plan: The patient was seen and evaluated by Dr. Chagn. He is cleared for discharge from the pulmonary standpoint. Complete a course of antibiotics. Complete a prednisone burst and taper. Follow-up in our office in 1 week's time. We'll repeat a chest x-ray then. He is however encouraged to call sooner with any recurrence of symptoms or other questions or concerns. I, the cosigning physician, performed a history & physical examination of the patient. Lungs sounds with bilateral end expiratory wheeze, diminished. Maintaining good O2 saturations in the 90s on room air. I discussed the assessment and plan of care with my nurse practitioner, Judi Crawford. I attest to the above note as dictated by her.
[2018-03-28 17:28] LABS: Glucose,Whole Blood 140 mg/dL (75-99)
[2018-03-28 20:32] LABS: Glucose,Whole Blood 121 mg/dL (75-99)
[2018-03-28] MEDS: INSULIN DETEMIR 100 UNIT/ML 10 ML VIAL SQ SCH (21:29)
[2018-03-28] MEDS ORDERED: FUROSEMIDE 10 MG/ML 4 ML VIAL IV STA (21:46)
[2018-03-28] MEDS: LEVOFLOXACIN 750 MG TAB PO SCH (22:01)
--- NOTE | 2018-03-28 22:42 | XR ---
EXAMINATION TYPE: XR chest 1V portable DATE OF EXAM: 03/28/2018 COMPARISON: 03/24/2018 HISTORY: Difficulty breathing TECHNIQUE: Single frontal view of the chest is obtained. FINDINGS: There is no heart failure nor confluent pneumonic infiltrate. Costophrenic angles are betsy r. There is a right shoulder prosthesis. There are chest leads. IMPRESSION: No active cardiopulmonary disease. There is clearing of the mild infiltrate left lung ba se compared to old exam.
[2018-03-29] MEDS: methylPREDNISolone SOD SUCCI 125 MG/2 ML VIAL IV SCH ×4 (01:57→17:23)
[2018-03-29] MEDS: PIPERACILLIN-TAZOBACTAM 3.375 GM in SODIUM CHLORIDE 0.9% 100 ML IVPB SCH ×3 (01:58→17:23)
[2018-03-29 06:42] LABS: Basophils % (A) 0 %; Eosinophils % (A) 0 %; HCT 42.2 % (39.0-53.0); HGB 12.8 gm/dL (13.0-17.5); Lymphocytes # (A) 1.2 k/uL (1.0-4.8); Lymphocytes % (A) 11 %; MCH 30.7 pg (25.0-35.0); MCHC 30.3 g/dL (31.0-37.0); MCV 101.4 fL (80.0-100.0); Macrocytosis Slight; Mean Platelet Volume 8.4; Monocytes # (A) 0.4 k/uL (0-1.0); Monocytes % (A) 4 %; Neutrophils # (A) 9.7 k/uL (1.3-7.7); Neutrophils % (A) 84 %; Platelet Count 176 k/uL (150-450); RBC 4.16 m/uL (4.30-5.90); RDW 14.1 % (11.5-15.5); WBC 11.6 k/uL (3.8-10.6)
[2018-03-29 06:55] LABS: Anion Gap 7 mmol/L; Blood Urea Nitrogen 29 mg/dL (9-20); Calcium 8.6 mg/dL (8.4-10.2); Carbon Dioxide 30 mmol/L (22-30); Chloride 106 mmol/L (98-107); Glucose 91 mg/dL (74-99); Potassium 3.5 mmol/L (3.5-5.1); Sodium 143 mmol/L (137-145)
[2018-03-29 07:26] LABS: Glucose,Whole Blood 89 mg/dL (75-99)
--- NOTE | 2018-03-29 07:49 | PN ---
PROGRESS NOTE DATE OF SERVICE: 03/28/2018 This 68-year-old gentleman who was admitted with acute left lower pneumonia possibly gram-negative is being closely monitored at this time. The patient also had the failure of outpatient treatment. No chest pain. No palpitations. Dr. Chang is following the patient closely. EXAM: Alert and oriented x3. Pulse 84. Blood pressure 109/52, respiration 20, temperature 98 degrees, pulse ox 97% on 3 L. HEENT: Conjunctivae normal. NECK: No jugular venous distention. CARDIOVASCULAR: S1, S2. RESPIRATORY: Breath sounds diminished in the bases. A few scattered rhonchi. ABDOMEN: Soft, nontender. LEGS: No edema. NERVOUS SYSTEM: No focal deficits. LAB STUDIES: WBC 14.8. Accu-Cheks noted. ASSESSMENT: 1. Acute left lower pneumonia possibly gram-negative, possibly healthcare associated pneumonia with failure of outpatient treatment. 2. Chronic obstructive pulmonary disease acute exacerbation. 3. History of coronary artery disease. 4. History of congestive heart failure. 5. History of gastroesophageal reflux disease. 6. Hypertension. 7. Hyperlipidemia. 8. History of degenerative joint disease. 9. History of prostate disorder. 10.History of transient ischemic attack. 11.History of coronary artery disease, stent. 12.History of back surgery, degenerative disc disease. 13.Remote history of nicotine dependence. RECOMMENDATIONS AND DISCUSSION: I recommend to continue current medical management, continue monitoring and symptomatic treatment. Otherwise at this time I recommend continue the bronchodilators. Continue with antibiotics. Closely follow with Dr. Chang. Guarded prognosis. Further recommendations to follow. MMODL / IJN: [id number] /
[2018-03-29] MEDS: ENOXAPARIN 40 MG/0.4 ML SYRINGE SQ SCH (09:17)
[2018-03-29] MEDS: guaiFENesin 600 MG TABLET.ER PO SCH ×2 (09:17→21:41)
[2018-03-29] MEDS: FUROSEMIDE 40 MG TAB PO SCH (09:17)
[2018-03-29] MEDS: ATORVASTATIN 80 MG TAB PO SCH (09:17)
[2018-03-29] MEDS: POTASSIUM CHLORIDE ER 20 MEQ TAB.ER PO SCH ×2 (09:17→21:41)
[2018-03-29] MEDS: TAMSULOSIN 0.4 MG CAP.ER.24H PO SCH (09:17)
[2018-03-29] MEDS: GLIMEPIRIDE 2 MG TAB PO SCH (09:17)
[2018-03-29] MEDS: PANTOPRAZOLE 40 MG TABLET PO SCH (09:17)
[2018-03-29] MEDS: NADOLOL 20 MG TAB PO SCH ×2 (09:18→23:47)
[2018-03-29] MEDS: INSULIN ASPART 100 UNIT/ML 1 ML 10 ML VIAL SQ SCH ×4 (09:18→21:41)
[2018-03-29] MEDS: IPRATROPIUM-ALBUTEROL 3 ML NEB INHALATION SCH ×4 (09:25→20:54)
[2018-03-29] MEDS: FORMOTEROL FUMARATE 20 MCG/2 ML NEBU INHALATION SCH ×2 (09:25→20:54)
[2018-03-29] MEDS: BUDESONIDE 1 MG/2 ML NEBU INHALATION SCH ×2 (09:25→20:54)
[2018-03-29 11:17] LABS: Glucose,Whole Blood 135 mg/dL (75-99)
[2018-03-29] MEDS ORDERED: FUROSEMIDE 80 MG TAB PO SCH (16:00)
--- NOTE | 2018-03-29 16:18 | P.PN ---
Subjective Progress Note Date: 03/29/18 Principal diagnosis: Acute on chronic hypoxic respiratory failure secondary to acute exacerbation of COPD This is a 68-year-old white male patient of Dr. Keene, was recently hospitalized for community acquired pneumonia involving left mid lung, discharged home on 03/15/2018 after significantly improving clinically and radiographically. Patient presented to the emergency department on 03/24/2017 with complaints of increasing shortness of breath, low-grade fever of 99F, dry cough, abdominal discomfort from increased coughing spells. Patient usually wears oxygen on as-needed basis, but he noted his pulse ox at 86%. Patient is an ex-smoker, does have underlying history of COPD, I'll is with Dr. Torres in the pulmonary clinic. His baseline FEV1 is 1.71 L or 58% of predicted. Other medical history includes type 2 diabetes mellitus, hypercholesterolemia, CAD with previous stenting, chronic congestive heart failure, hypertension, GERD without esophagitis, obstructive sleep apnea syndrome, obesity. Patient quit smoking 10 years ago. Chest x-ray showed minimal infiltrate at the left lung base, this was compared to previous chest x-ray from 03/13/2018, and show significant overall improvement of the left lung. Follow-up chest x-ray on 05/2018 shows strand-like opacities at the lung bases and within the left mid lung suggesting atelectasis. Influenza screen was negative, lab work on admission showed WBC of 13.7, hemoglobin of 14.6, electrolytes were within normal limits, CO2 was elevated at 37, renal profile within normal limits, troponin negative 1, proBNP within normal limits at 101. Patient has been started on empiric antibiotics in the form of Zosyn and Levaquin, IV steroids, nebulized bronchodilators. Patient seen again today 03/27/2018 in follow-up on the regular medical floor. He is awake and alert in no acute distress. Ambulating within his room. He is breathing a bit easier today as compared to yesterday. Still not quite back to his baseline. Maintaining O2 saturations in the 90s on 3 L/m per nasal cannula. Afebrile. Hemodynamically stable. Blood culture reveals no growth to date. White count 12.8. Hemoglobin 13.5. Creatinine 0.75. Currently on Zosyn and Levaquin. The patient is seen today 03/28/2018 in follow-up on the regular medical floor. He is awake and alert in no acute distress. He is nearly back to his baseline. No worsening shortness of breath, cough or congestion. No chills or night sweats. Maintaining O2 saturations in the 90s on room air. He's been afebrile. Hemodynamically stable. A culture reveals no growth. Urine culture reveals no growth. White count 14.8. Hemoglobin 13.8. Creatinine 0.71. Reevaluated today on 03/29/2018, patient continues to cough wheezing continues to have shortness of breath with any activity. No fever no chills no hemoptysis no chest pain. Chest x-ray is reassuring, nonspecific residual findings noted in the left lower lobe, strongly doubt pneumonia. As a matter of fact his chest x-ray has shown a significant improvement compared to the chest x-ray on the last admission were and there was a significant infiltrate involving the left lung. CBC is relatively normal basic metabolic profile is normal renal profile is normal. All his meds were reviewed and discussed with the patient and his . Objective - Vital Signs Vital signs: Vital Signs Temp 97.4 F L 03/29/18 13:01 Pulse 53 L 03/29/18 13:01 Resp 17 03/29/18 09:17 BP 149/79 03/29/18 13:01 Pulse Ox 96 03/29/18 13:01 Intake & Output 03/28/18 03/29/18 03/29/18 18:59 06:59 18:59 Intake Total 100 100 Balance 100 100 Intake: Intake, IV Titration 100 100 Amount Piperacillin-Tazobactam 3 100 100 .375 gm In Sodium Chloride 0.9% 100 ml @ 25 mls/hr IVPB Q8H [facility] Rx#: [id number] Other: # Voids 4 2 - Exam GENERAL EXAM: Alert, pleasant, 68-year-old male, comfortable in no apparent distress. On 2 L nasal cannula. HEAD: Normocephalic/atraumatic. HEENT: PERRLA, EOMI, no icterus, moist mucous membranes, no neck masses, no JVD , no thyromegaly.. CHEST: No chest wall deformity. Symmetrical expansion. LUNGS: Equal air entry diffuse rhonchi and wheezes persist bilaterally. CVS: Regular rate and rhythm, normal S1 and S2, no gallops, no murmurs, no rubs ABDOMEN: Soft, nontender. No hepatosplenomegaly, normal bowel sounds, no guarding or rigidity. EXTREMITIES: No clubbing, no edema, no cyanosis, 2+ pulses and upper and lower extremities. MUSCULOSKELETAL: Muscle strength and tone normal. SPINE: No scoliosis or deformity SKIN: No rashes CENTRAL NERVOUS SYSTEM: Alert and oriented -3. No focal deficits, tone is normal in all 4 extremities. PSYCHIATRIC: Alert and oriented -3. Appropriate affect. Intact judgment and insight. - Labs CBC & Chem 7: 03/29/18 06:19 03/29/18 06:19 Labs: Abnormal Lab Results - Last 24 Hours (Table) 03/28/18 03/28/18 03/29/18 Range/Units 17:16 20:22 06:19 WBC 11.6 H (3.8-10.6) k/uL RBC 4.16 L (4.30-5.90) m/uL Hgb 12.8 L (13.0-17.5) gm/dL MCV 101.4 H (80.0-100.0) fL MCHC 30.3 L (31.0-37.0) g/dL Neutrophils # 9.7 H (1.3-7.7) k/uL BUN (9-20) mg/dL POC Glucose (mg/dL) 140 H 121 H (75-99) mg/dL 03/29/18 03/29/18 Range/Units 06:19 11:06 WBC (3.8-10.6) k/uL RBC (4.30-5.90) m/uL Hgb (13.0-17.5) gm/dL MCV (80.0-100.0) fL MCHC (31.0-37.0) g/dL Neutrophils # (1.3-7.7) k/uL BUN 29 H (9-20) mg/dL POC Glucose (mg/dL) 135 H (75-99) mg/dL Microbiology - Last 24 Hours (Table) 03/24/18 23:00 Blood Culture - Preliminary Blood No Growth after 96 hours Assessment and Plan Assessment: #1. Acute on chronic hypoxemic respiratory failure secondary to acute exacerbation of chronic obstructive pulmonary disease with tracheobronchitis. Chest x-ray shows actually improving minimal left basilar infiltrate versus atelectasis since previous admission in February 2018 #2. Recent hospitalization for community acquired pneumonia involving the extensive portion of the lateral left mid lung #3. Moderately severe COPD with chronic hypoxemic respiratory failure with baseline FEV1 of 1.71 L or 58% of predicted #4. Coronary artery disease with previous stenting #5. 2 diabetes mellitus #6. Hypertension, hypercholesterolemia #7. GERD #8. Obstructive sleep apnea syndrome #9. Obesity #10. Severe arthritis #11. Nicotine dependence, in remission, patient quit 10 years ago Recommendation: Continue present treatment plan including bronchodilators, antibiotics, steroids, oxygen, chest x-ray from yesterday was reviewed, and there are continues to have significant clearing of the left midlung infiltrate. At this point I believe the patient could be considered for discharge planning in the next 24-48 hours. Not quite ready to be discharged home today, on physical examination significant rhonchi and wheezes noted today. Time with Patient: Less than 30
[2018-03-29 17:14] LABS: Glucose,Whole Blood 153 mg/dL (75-99)
[2018-03-29 21:23] LABS: Glucose,Whole Blood 149 mg/dL (75-99)
[2018-03-29] MEDS: INSULIN DETEMIR 100 UNIT/ML 10 ML VIAL SQ SCH (21:41)
[2018-03-29] MEDS: LEVOFLOXACIN 750 MG TAB PO SCH (21:42)
[2018-03-29] MEDS: TEMAZEPAM 15 MG CAP PO PRN (21:54)
--- NOTE | 2018-03-30 00:37 | PN ---
PROGRESS NOTE DATE OF SERVICE: 03/29/2018. HISTORY: This 68-year-old gentleman who was admitted with significant pneumonia and other multiple medical problems is being closely monitored. Dr. Chang is following the patient closely. Patient on bronchodilators and antibiotics. No chest pain. No palpitations. No fever. Patient is feeling slightly better. Chest x-ray also showed some improvement. EXAM: Alert and oriented x3. VITAL SIGNS: Pulse is 70, blood pressure 140/47, respiration 17, temperature 97.2, pulse ox 96% on room air. HEENT: Conjunctivae normal. NECK: Supple. No JVD. CARDIOVASCULAR: S1 and S2 muffled. LUNGS: Breath sounds diminished at the bases. ABDOMEN: Soft, obese, nontender. EXTREMITIES: Legs no edema, no swelling. 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 LABS: WBC 11, hemoglobin 12.8. Accu-Cheks noted. ASSESSMENT: 1. Acute left lower pneumonia possibly gram-negative, possibly healthcare associated pneumonia with failure of outpatient treatment. 2. Chronic obstructive pulmonary disease acute exacerbation. 3. History of coronary artery disease. 4. History of congestive heart failure. 5. Gastroesophageal reflux disease. 6. Hypotension. 7. Hyperlipidemia. 8. History of degenerative joint disease. 9. History of prostate disorder. 10.History of transient ischemic attack. 11.History of coronary artery disease with stent. 12.History of back surgery and degenerative joint disease. 13.Remote history of nicotine dependence. RECOMMENDATIONS: Continue current medication, continue to monitoring and symptomatic treatment. Otherwise at this time I recommend continue with bronchodilators and antibiotics. Continue to monitor closely with Dr. Chang. Guarded prognosis. Further recommendations to follow. MMODL / IJN: [id number] /
[2018-03-30] MEDS: PIPERACILLIN-TAZOBACTAM 3.375 GM in SODIUM CHLORIDE 0.9% 100 ML IVPB SCH ×3 (01:35→18:26)
[2018-03-30] MEDS: methylPREDNISolone SOD SUCCI 125 MG/2 ML VIAL IV SCH ×5 (01:36→23:28)
[2018-03-30 07:17] LABS: Glucose,Whole Blood 98 mg/dL (75-99)
[2018-03-30] MEDS: IPRATROPIUM-ALBUTEROL 3 ML NEB INHALATION SCH ×4 (07:20→20:05)
[2018-03-30] MEDS: BUDESONIDE 1 MG/2 ML NEBU INHALATION SCH ×2 (07:20→20:05)
[2018-03-30] MEDS: FORMOTEROL FUMARATE 20 MCG/2 ML NEBU INHALATION SCH ×2 (07:20→20:05)
[2018-03-30] MEDS: INSULIN ASPART 100 UNIT/ML 1 ML 10 ML VIAL SQ SCH ×4 (08:30→22:28)
[2018-03-30 08:53] LABS: Basophils % (A) 0 %; Eosinophils % (A) 0 %; HCT 45.4 % (39.0-53.0); HGB 13.8 gm/dL (13.0-17.5); Lymphocytes # (A) 0.9 k/uL (1.0-4.8); Lymphocytes % (A) 9 %; MCH 30.2 pg (25.0-35.0); MCHC 30.5 g/dL (31.0-37.0); MCV 99.1 fL (80.0-100.0); Mean Platelet Volume 8.3; Monocytes # (A) 0.4 k/uL (0-1.0); Monocytes % (A) 4 %; Neutrophils # (A) 8.3 k/uL (1.3-7.7); Neutrophils % (A) 85 %; Platelet Count 195 k/uL (150-450); RBC 4.58 m/uL (4.30-5.90); RDW 14.1 % (11.5-15.5); WBC 9.8 k/uL (3.8-10.6)
[2018-03-30 09:06] LABS: Anion Gap 7 mmol/L; Blood Urea Nitrogen 25 mg/dL (9-20); Calcium 8.7 mg/dL (8.4-10.2); Carbon Dioxide 34 mmol/L (22-30); Chloride 105 mmol/L (98-107); Glucose 91 mg/dL (74-99); Potassium 3.8 mmol/L (3.5-5.1); Sodium 146 mmol/L (137-145)
[2018-03-30] MEDS: guaiFENesin 600 MG TABLET.ER PO SCH ×2 (09:09→22:28)
[2018-03-30] MEDS: PANTOPRAZOLE 40 MG TABLET PO SCH (09:09)
[2018-03-30] MEDS: ATORVASTATIN 80 MG TAB PO SCH (09:09)
[2018-03-30] MEDS: TAMSULOSIN 0.4 MG CAP.ER.24H PO SCH (09:10)
[2018-03-30] MEDS: ENOXAPARIN 40 MG/0.4 ML SYRINGE SQ SCH (09:10)
[2018-03-30] MEDS: GLIMEPIRIDE 2 MG TAB PO SCH (09:10)
[2018-03-30] MEDS: NADOLOL 20 MG TAB PO SCH ×2 (09:10→22:27)
[2018-03-30] MEDS: POTASSIUM CHLORIDE ER 20 MEQ TAB.ER PO SCH ×2 (09:11→22:28)
[2018-03-30] MEDS: HYDROcodone/APAP 5-325MG 1 EACH TAB PO PRN ×2 (09:13→18:31)
[2018-03-30] MEDS: FUROSEMIDE 10 MG/ML 10 ML VIAL IV SCH (10:10)
[2018-03-30 11:57] LABS: Glucose,Whole Blood 120 mg/dL (75-99)
--- NOTE | 2018-03-30 13:56 | P.CRDCN ---
History of Present Illness History of present illness: This is a pleasant 68-year-old male past medical history significant for coronary artery disease status post angioplasty of the mid and proximal RCA , hypertension, COPD, chronic hypoxic respiratory failure, hypertension, dyslipidemia, diabetes mellitus, obstructive sleep apnea, former nicotine dependence and obesity. He follows with Dr. Frazier in the office. We have been asked to see him in consultation secondary to symptoms of heart failure. He states for approximately the previous 2 weeks he has felt increasingly short of breath. He presented to the hospital on March 24 with complaints of fever, cough and congestion. He had been recently diagnosed with pneumonia and was on oral antibiotics prior to admission. Initial chest x-ray revealed minimal infiltrate in the left lung base. He has been receiving IV steroids and antibiotics since admission however he has not noticed much improvement in his shortness of breath. He states he has also developed significant edema of his lower extremities. He states he has a level of chronic lower extremity edema but this is double what it usually is. He denies symptoms of chest pain, dizziness or palpitations. Repeat chest x-ray on March 28 reveals clearing of mild infiltrate in the left lung base. EKG reveals sinus mechanism with complete right bundle branch block pattern. There is also nonspecific ST abnormalities noted. Laboratory data reviewed, WBC 9.8, hemoglobin 13.8, platelets 195, sodium 146, potassium 3.8, creatinine 0.76, on admission cardiac enzymes negative 1 and NT proBNP 101. Current cardiac medications include atorvastatin 80 mg daily, nadolol 20 mg twice a day, potassium supplementation. At the last office visit he was also on aspirin 81 mg daily and Lasix 40 mg 2 tablets in the a.m. and one in the p.m. These have not been resumed on admission. Most recent heart cath performed 2015 reveals a patent stent in the RCA, intermediate disease in the circumflex artery and mild disease in the LAD he underwent FFR of the circumflex complex artery at that time and he came to be nonischemic. He underwent stenting of the mid RCA and proximal RCA in 2009. Most recent echocardiogram performed in the office August 2016 reveals preserved left ventricular systolic function with ejection fraction 55-60%, aortic sclerosis and impaired relaxation diastolic dysfunction At the time of my exam: CONSTITUTIONAL: Denies fever. Denies chills. EYES: Denies blurred vision. Denies vision changes. Denies eye pain. EARS, NOSE, MOUTH & THROAT: Denies headache. Denies sore throat. Denies ear pain. CARDIOVASCULAR: Denies chest pain. Complains of shortness of breath. Denies orthopnea. Denies PND. Denies palpitations. RESPIRATORY: Denies cough. GASTROINTESTINAL: Denies abdominal pain. Denies diarrhea. Denies constipation. Denies nausea. Denies vomiting. MUSCULOSKELETAL: Denies myalgias. INTEGUMENTARY: Denies pruitis. Denies rash. NEUROLOGIC: Denies numbness. Denies tingling. Denies weakness. PSYCHIATRIC: Denies anxiety. Denies depression. ENDOCRINE: Denies fatigue. Denies weight change. Denies polydipsia. Denies polyurina. GENITOURINARY: Denies burning, hematuria or urgency with micturation. HEMATOLOGIC: Denies history of anemia. Denies bleeding. Blood pressure 158/78 heart rate 60 afebrile maintaining oxygen saturation on nasal cannula GENERAL: This is a 68-year-old male in no apparent distress at the time of my examination. HEENT: Head is atraumatic, normocephalic. Pupils are equal, round. Sclerae anicteric. Conjunctivae are clear. Mucous membranes of the mouth are moist. Neck is supple. There is no jugular venous distention. No carotid bruit is heard. LUNGS: Coarse rhonchi, expiratory wheezes throughout and bibasilar rales noted. No chest wall tenderness is noted on palpation or with deep breathing. HEART: Regular rate and rhythm without murmurs, rubs or gallops. S1 and S2 heard. ABDOMEN: Soft, nontender. Bowel sounds are heard. No organomegaly noted. EXTREMITIES: Significant 2+ bilateral lower extremity edema and no calf tenderness noted. VASCULAR: Radial and dorsalis pedis pulses palpated, no evidence of clubbing. NEUROLOGIC: Patient is awake, alert and oriented x3. ASSESSMENT Acute on chronic diastolic heart failure Acute on chronic hypoxemic respiratory failure Acute exacerbation of COPD Leukocytosis, resolved Coronary artery disease status post angioplasty Hypertension Dyslipidemia Diabetes mellitus Obesity, BMI 37 Obstructive sleep apnea Former nicotine dependence PLAN Check d-dimer and repeat NTproBNP. Give lasix IV 60 mg BID. Follow electrolytes and kidney function daily. Repeat chest xray in the morning. Document accurate intake and output along with daily weights. We will continue to follow and make recommendations accordingly. Thank you kindly for this consultation. Nurse Practitioner note has been reviewed, I agree with a documented findings and plan of care. Patient was seen and examined. Past Medical History Past Medical History: Coronary Artery Disease (CAD), Chest Pain / Angina, Heart Failure, COPD, GERD/Reflux, Hyperlipidemia, Hypertension, Osteoarthritis (OA), Prostate Disorder Additional Past Medical History / Comment(s): 03/12/18 pt wants a flu vaccine before discharge if ok with drLaurita other hx includes: MINI STROKES - MRI DONE AT [place] SMALL VESSEL DX, pt stated diet control dm-no meds no bs checks. SLEEP APNEA/cpap, History of Any Multi-Drug Resistant Organisms: None Reported Past Surgical History: Back Surgery, Heart Catheterization With Stent, Joint Replacement, Orthopedic Surgery Additional Past Surgical History / Comment(s): TOTAL LEFT KNEE, FELIPE KNEE ARTHROSCOPY, rt shoulder replacement, HEART STENT X3,lt hand sx Past Anesthesia/Blood Transfusion Reactions: No Reported Reaction Additional Past Anesthesia/Blood Transfusion Reaction / Comment(s): STATES "HAD A HARD TIME WITH BREATHING POST OP" Date of Last Stent Placement:: 2009 Smoking Status: Current every day smoker - Past Family History Father Family Medical History: CVA/TIA, Hyperlipidemia, Hypertension Mother Family Medical History: Hypertension Medications and Allergies Home Medications Medication Instructions Recorded Confirmed Type Nitroglycerin Sl Tabs [Nitrostat] 0.4 mg SUBLINGUAL Q5M PRN 03/09/14 03/24/18 History Omeprazole [PriLOSEC] 20 mg PO HS 03/09/14 03/24/18 History Atorvastatin [Lipitor] 80 mg PO DAILY 05/08/15 03/24/18 History methylPREDNISolone [Medrol] 4 mg PO DAILY 09/09/16 03/24/18 History Glimepiride [Amaryl] 2 mg PO AC-BRKFST 10/09/16 03/24/18 History Tamsulosin HCl [Flomax] 0.4 mg PO DAILY 10/09/16 03/24/18 History Albuterol Nebulized [Ventolin 2.5 mg INHALATION RT-Q6H 03/12/18 03/24/18 History Nebulized] Fluticasone/Vilanterol [Breo 1 puff INHALATION RT-DAILY 03/12/18 03/24/18 History Ellipta 100-25 Mcg Inhaler] Nadolol [Corgard] 20 mg PO BID 03/12/18 03/24/18 History Potassium Chloride ER [K-Dur 20] 20 meq PO BID #0 03/15/18 03/24/18 Rx predniSONE See Taper PO DAILY 03/24/18 03/24/18 History Insulin Glargine [Lantus] 30 unit SQ HS 03/25/18 03/25/18 History Allergies Allergy/AdvReac Type Severity Reaction Status Date / Time prednisone AdvReac "MADE ME Verified 03/24/18 23:09 VERY ANGRY" Physical Exam Vitals: Vital Signs Temp Pulse Pulse Resp BP Pulse Ox 03/30/18 09:08 97.5 F L 60 20 158/78 94 L 03/30/18 07:42 80 03/30/18 07:30 78 03/30/18 07:29 78 03/30/18 07:22 74 03/30/18 07:21 97.6 F 51 L 15 159/73 97 03/30/18 00:15 97.4 F L 56 L 16 143/70 03/29/18 23:45 53 L 22 03/29/18 21:26 70 03/29/18 21:13 72 03/29/18 21:12 68 03/29/18 20:55 70 03/29/18 20:00 22 03/29/18 16:59 68 03/29/18 16:46 64 03/29/18 16:00 53 L 17 03/29/18 13:01 97.4 F L 53 L 149/79 96 03/29/18 12:47 80 03/29/18 12:38 76 Results 03/30/18 08:01 03/30/18 08:01 CBC 03/30/18 Range/Units 08:01 WBC 9.8 (3.8-10.6) k/uL RBC 4.58 (4.30-5.90) m/uL Hgb 13.8 (13.0-17.5) gm/dL Hct 45.4 (39.0-53.0) % Plt Count 195 (150-450) k/uL Comprehensive Metabolic Panel 03/30/18 Range/Units 08:01 Sodium 146 H (137-145) mmol/L Potassium 3.8 (3.5-5.1) mmol/L Chloride 105 (98-107) mmol/L Carbon Dioxide 34 H (22-30) mmol/L BUN 25 H (9-20) mg/dL Creatinine 0.76 (0.66-1.25) mg/dL Glucose 91 (74-99) mg/dL Calcium 8.7 (8.4-10.2) mg/dL Current Medications Generic Name Dose Route Start Last Admin Trade Name Freq PRN Reason Stop Dose Admin Acetaminophen 500 mg 03/25/18 17:46 Tylenol Tab PO Q6HR PRN Fever and/ or Pain Hydrocodone Bitart/Acetaminophen 1 each 03/25/18 06:55 03/30/18 09:13 Boling 5-325 PO 1 each Q6HR PRN Administration Pain Albuterol/Ipratropium 3 ml 03/25/18 08:00 03/30/18 07:20 Duoneb 0.5 Mg-3 Mg/3 Ml Soln INHALATION 3 ml RT-QID JOSE Administration Alprazolam 0.25 mg 03/25/18 17:46 Xanax PO TID PRN Anxiety Atorvastatin Calcium 80 mg 03/26/18 09:00 03/30/18 09:09 Lipitor PO 80 mg DAILY JOSE Administration Budesonide 1 mg 03/25/18 20:00 03/30/18 07:20 Pulmicort INHALATION 1 mg RT-BID JOSE Administration Enoxaparin Sodium 40 mg 03/25/18 09:00 03/30/18 09:10 Lovenox SQ 40 mg DAILY JOSE Administration Formoterol Fumarate 20 mcg 03/25/18 20:00 03/30/18 07:20 Perforomist INHALATION 20 mcg RT-BID JOSE Administration Furosemide 60 mg 03/30/18 09:15 03/30/18 10:10 Lasix IV 60 mg DAILY JOSE Administration Glimepiride 2 mg 03/26/18 07:30 03/30/18 09:10 Amaryl PO 2 mg AC-BRKFST JOSE Administration Guaifenesin 1,200 mg 03/26/18 09:00 03/30/18 09:09 Mucinex PO 1,200 mg Q12HR JOSE Administration Guaifenesin/Dextromethorphan 10 ml 03/27/18 16:03 03/28/18 02:14 Robitussin Dm PO 10 ml Q6H PRN Administration Cough Piperacillin Sod/Tazobactam 100 mls @ 25 mls/hr 03/25/18 10:00 03/30/18 09:15 Sod 3.375 gm/ Sodium Chloride IVPB 25 mls/hr Q8H JOSE Administration Insulin Aspart 0 unit 03/25/18 17:30 03/30/18 08:30 Novolog SQ Not Given ACHS [facility] Protocol Insulin Detemir 30 unit 03/25/18 21:00 03/29/18 21:41 Levemir SQ 30 unit HS JOSE Administration Levofloxacin 750 mg 03/26/18 21:00 03/29/18 21:42 Levaquin PO 750 mg Q24H JOSE Administration Methylprednisolone Sodium Succinate 60 mg 03/25/18 18:00 03/30/18 06:23 Solu-Medrol IV 60 mg Q6HR JOSE Administration Miscellaneous Information 1 each 03/25/18 00:18 Pneumonia Protocol Utilized PO ONCE PRN Per Protocol Nadolol 20 mg 03/25/18 21:00 03/30/18 09:10 Corgard PO 20 mg BID JOSE Administration Nitroglycerin 0.4 mg 03/25/18 17:43 Nitrostat SUBLINGUAL Q5M PRN Chest Pain Pantoprazole Sodium 40 mg 03/26/18 07:30 03/30/18 09:09 Protonix PO 40 mg AC-BRKFST JOSE Administration Potassium Chloride 20 meq 03/25/18 21:00 03/30/18 09:11 K-Dur 20 PO 20 meq BID JOSE Administration Tamsulosin HCl 0.4 mg 03/25/18 17:45 03/30/18 09:10 Flomax PO 0.4 mg DAILY JOSE Administration Temazepam 15 mg 03/25/18 17:46 03/29/18 21:54 Restoril PO 15 mg HS PRN Administration Insomnia 03/30/18 08:01 03/30/18 08:01
--- NOTE | 2018-03-30 16:09 | P.PN ---
Subjective Progress Note Date: 03/30/18 Principal diagnosis: Acute on chronic hypoxic respiratory failure secondary to acute exacerbation of COPD This is a 68-year-old white male patient of Dr. Keene, was recently hospitalized for community acquired pneumonia involving left mid lung, discharged home on 03/15/2018 after significantly improving clinically and radiographically. Patient presented to the emergency department on 03/24/2017 with complaints of increasing shortness of breath, low-grade fever of 99F, dry cough, abdominal discomfort from increased coughing spells. Patient usually wears oxygen on as-needed basis, but he noted his pulse ox at 86%. Patient is an ex-smoker, does have underlying history of COPD, I'll is with Dr. Torres in the pulmonary clinic. His baseline FEV1 is 1.71 L or 58% of predicted. Other medical history includes type 2 diabetes mellitus, hypercholesterolemia, CAD with previous stenting, chronic congestive heart failure, hypertension, GERD without esophagitis, obstructive sleep apnea syndrome, obesity. Patient quit smoking 10 years ago. Chest x-ray showed minimal infiltrate at the left lung base, this was compared to previous chest x-ray from 03/13/2018, and show significant overall improvement of the left lung. Follow-up chest x-ray on 05/2018 shows strand-like opacities at the lung bases and within the left mid lung suggesting atelectasis. Influenza screen was negative, lab work on admission showed WBC of 13.7, hemoglobin of 14.6, electrolytes were within normal limits, CO2 was elevated at 37, renal profile within normal limits, troponin negative 1, proBNP within normal limits at 101. Patient has been started on empiric antibiotics in the form of Zosyn and Levaquin, IV steroids, nebulized bronchodilators. Patient seen again today 03/27/2018 in follow-up on the regular medical floor. He is awake and alert in no acute distress. Ambulating within his room. He is breathing a bit easier today as compared to yesterday. Still not quite back to his baseline. Maintaining O2 saturations in the 90s on 3 L/m per nasal cannula. Afebrile. Hemodynamically stable. Blood culture reveals no growth to date. White count 12.8. Hemoglobin 13.5. Creatinine 0.75. Currently on Zosyn and Levaquin. The patient is seen today 03/28/2018 in follow-up on the regular medical floor. He is awake and alert in no acute distress. He is nearly back to his baseline. No worsening shortness of breath, cough or congestion. No chills or night sweats. Maintaining O2 saturations in the 90s on room air. He's been afebrile. Hemodynamically stable. A culture reveals no growth. Urine culture reveals no growth. White count 14.8. Hemoglobin 13.8. Creatinine 0.71. Reevaluated today on 03/29/2018, patient continues to cough wheezing continues to have shortness of breath with any activity. No fever no chills no hemoptysis no chest pain. Chest x-ray is reassuring, nonspecific residual findings noted in the left lower lobe, strongly doubt pneumonia. As a matter of fact his chest x-ray has shown a significant improvement compared to the chest x-ray on the last admission were and there was a significant infiltrate involving the left lung. CBC is relatively normal basic metabolic profile is normal renal profile is normal. All his meds were reviewed and discussed with the patient and his . On 03/30/2018 patient seen in follow-up on medical surgical floor. He sitting up in the chair, no acute distress, currently on 4 L per nasal cannula his pulse ox is 95%, afebrile, hemodynamically stable, he states his breathing is improving. Good air entry bilaterally, a few scattered wheezes, blood and urine culture showed no growth, we were unable to send a sputum culture, no fever or chills, less dyspneic and wheezy on today's exam. No worsening chest congestion, patient is on oral Levaquin. he is receiving IV Lasix Objective - Vital Signs Vital signs: Vital Signs Temp 97.7 F 03/30/18 15:00 Pulse 67 03/30/18 15:00 Resp 15 03/30/18 15:00 BP 145/79 03/30/18 15:00 Pulse Ox 95 03/30/18 15:00 Intake & Output 03/29/18 03/30/18 03/30/18 18:59 06:59 18:59 Intake Total 100 Balance 100 Weight 109.8 kg Intake: Intake, IV Titration 100 Amount Piperacillin-Tazobactam 3 100 .375 gm In Sodium Chloride 0.9% 100 ml @ 25 mls/hr IVPB Q8H [facility] Rx#: [id number] - Exam GENERAL EXAM: Alert, pleasant, 68-year-old male, comfortable in no apparent distress. On 4 L nasal cannula. HEAD: Normocephalic/atraumatic. HEENT: PERRLA, EOMI, no icterus, moist mucous membranes, no neck masses, no JVD , no thyromegaly.. CHEST: No chest wall deformity. Symmetrical expansion. LUNGS: Equal air entry scattered wheezes CVS: Regular rate and rhythm, normal S1 and S2, no gallops, no murmurs, no rubs ABDOMEN: Soft, nontender. No hepatosplenomegaly, normal bowel sounds, no guarding or rigidity. EXTREMITIES: No clubbing, no edema, no cyanosis, 2+ pulses and upper and lower extremities. MUSCULOSKELETAL: Muscle strength and tone normal. SPINE: No scoliosis or deformity SKIN: No rashes CENTRAL NERVOUS SYSTEM: Alert and oriented -3. No focal deficits, tone is normal in all 4 extremities. PSYCHIATRIC: Alert and oriented -3. Appropriate affect. Intact judgment and insight. - Labs CBC & Chem 7: 03/30/18 08:01 03/30/18 08:01 Labs: Abnormal Lab Results - Last 24 Hours (Table) 03/29/18 03/29/18 03/30/18 Range/Units 17:02 21:09 08:01 MCHC 30.5 L (31.0-37.0) g/dL Neutrophils # 8.3 H (1.3-7.7) k/uL Lymphocytes # 0.9 L (1.0-4.8) k/uL Sodium (137-145) mmol/L Carbon Dioxide (22-30) mmol/L BUN (9-20) mg/dL POC Glucose (mg/dL) 153 H 149 H (75-99) mg/dL 03/30/18 03/30/18 Range/Units 08:01 11:45 MCHC (31.0-37.0) g/dL Neutrophils # (1.3-7.7) k/uL Lymphocytes # (1.0-4.8) k/uL Sodium 146 H (137-145) mmol/L Carbon Dioxide 34 H (22-30) mmol/L BUN 25 H (9-20) mg/dL POC Glucose (mg/dL) 120 H (75-99) mg/dL Microbiology - Last 24 Hours (Table) 03/24/18 23:00 Blood Culture - Preliminary Blood No Growth after 120 hours Assessment and Plan Plan: Assessment: #1. Acute on chronic hypoxemic respiratory failure secondary to acute exacerbation of chronic obstructive pulmonary disease with tracheobronchitis. Chest x-ray shows actually improving minimal left basilar infiltrate versus atelectasis since previous admission in February 2018 #2. Recent hospitalization for community acquired pneumonia involving the extensive portion of the lateral left mid lung #3. Moderately severe COPD with chronic hypoxemic respiratory failure with baseline FEV1 of 1.71 L or 58% of predicted #4. Coronary artery disease with previous stenting #5. 2 diabetes mellitus #6. Hypertension, hypercholesterolemia #7. GERD #8. Obstructive sleep apnea syndrome #9. Obesity #10. Severe arthritis #11. Nicotine dependence, in remission, patient quit 10 years ago Plan: Continue the empiric antibiotics, no fever or chills, no worsening dyspnea. Increase activity as tolerated, encourage deep breathing and coughing, continue bronchodilators, steroids, oxygen. Patient was started on IV Lasix, per cardiology. Repeat chest x-ray in the morning, from pulmonary perspective patient could be considered for discharge home in the next 24 hours. Continue to follow. I performed a history & physical examination of the patient and discussed their management with my nurse practitioner, Skylar Mckoy. I reviewed the nurse practitioner's note and agree with the documented findings and plan of care. Lung sounds are positive for scattered wheezes and rhonchi. The findings and the impression was discussed with the patient. I attest to the documentation by the nurse practitioner. Time with Patient: Less than 30
[2018-03-30 17:07] LABS: Glucose,Whole Blood 155 mg/dL (75-99)
[2018-03-30] MEDS ORDERED: FUROSEMIDE 10 MG/ML 10 ML VIAL IVP STA (17:29)
--- NOTE | 2018-03-30 18:55 | PN ---
PROGRESS NOTE DATE OF SERVICE: 03/30/2018 This 68-year-old gentleman who was admitted with acute left lower pneumonia possibly gram-negative is being closely monitored. The patient also had a possible congestive heart failure acute exacerbation also. Multiple consultants are following the patient closely. BNP is 795. EXAM: Alert and oriented x3. Pulse 67. Blood pressure 149/70, respiration 16, temperature 97.2, pulse ox 94% on 4 L. HEENT: Conjunctivae normal. Neck is no jugular venous distention. CARDIOVASCULAR: S1, S2 muffled. Respirations: Breath sounds diminished in the bases. A few scattered rhonchi. Abdomen soft. Nontender. LEGS: No edema. No swelling. NERVOUS SYSTEM: No focal deficits. LABS: WBC 10.2, hemoglobin 13.2, sodium 146. ASSESSMENT: 1. Acute left lower pneumonia possibly gram-negative, possibly healthcare associated pneumonia with failure of outpatient treatment. 2. Chronic obstructive pulmonary disease acute exacerbation. 3. Possible congestive heart failure exacerbation. 4. History of coronary artery disease. 5. History of gastroesophageal reflux disease. 6. Hypertension. 7. Hyperlipidemia. 8. History of degenerative joint disease. 9. History of prostate disease. 10.History of transient ischemic attack. 11.History of coronary artery disease stent. 12.History of back surgery, degenerative joint disease. 13.Remote history of nicotine dependence. RECOMMENDATIONS AND DISCUSSION: Recommend to continue current medications, management and symptomatic treatment. Otherwise, at this time, I recommend continue with diuretics. Continue the current medication, bronchodilators and steroids, which will be tapered. Otherwise, I would also recommend diuretics per recommendation per Cardiology. Continue with antibiotics. Guarded prognosis because of multiple complex medical issues. Further recommendations to follow. MMODL / IJN: [id number] /
[2018-03-30 20:22] LABS: Glucose,Whole Blood 151 mg/dL (75-99)
[2018-03-30] MEDS: LEVOFLOXACIN 750 MG TAB PO SCH (22:27)
[2018-03-30] MEDS: INSULIN DETEMIR 100 UNIT/ML 10 ML VIAL SQ SCH (22:28)
[2018-03-31] MEDS: PIPERACILLIN-TAZOBACTAM 3.375 GM in SODIUM CHLORIDE 0.9% 100 ML IVPB SCH ×2 (01:03→12:16)
--- NOTE | 2018-03-31 07:21 | ECHOF ---
Referral Reason:sob MEASUREMENTS -------- HEIGHT: 170.2 cm WEIGHT: 108.9 kg BP: RVIDd: 2.3 cm (< 3.3) IVSd: 1.3 cm (0.6 - 1.1) LVIDd: 5.1 cm (3.9 - 5.3) LVPWd: 1.7 cm (0.6 - 1.1) IVSs: 1.6 cm LVIDs: 3.5 cm LVPWs: 2.0 cm Ao Diam: 3.1 cm (2.0 - 3.7) AV Cusp: 2.4 cm (1.5 - 2.6) LA Diam: 3.3 cm (2.7 - 3.8) MV E Gab: 1.18 m/s MV DecT: 284 ms MV A Gab: 0.89 m/s MV E/A Ratio: 1.33 AR PHT: 172 ms RAP: 5.00 mmHg RVSP: 9.79 mmHg FINDINGS -------- Sinus rhythm. This was a technically difficult study with suboptimal views. The left ventricular size is normal. There is mild concentric left ventricular hypertrophy. Overa ll left ventricular systolic function is low-normal with, an EF between 50 - 55 %. The right ventricle is normal in size and function. The left atrium is normal in size. The right atrium is normal in size. Lumason used The aortic valve is trileaflet and appears structurally normal. Trace amount of aortic regurgitatio n. There is trace mitral regurgitation. Trace tricuspid regurgitation present. The right ventricular systolic pressure, as measured by Dopp ler, is 9.79mmHg. Pulmonic valve appears structurally normal. The aortic root size is normal. CONCLUSIONS -------- 1. Sinus rhythm. 2. This was a technically difficult study with suboptimal views. 3. The left ventricular size is normal. 4. There is mild concentric left ventricular hypertrophy. 5. Overall left ventricular systolic function is low-normal with, an EF between 50 - 55 %. 6. The right ventricle is normal in size and function. 7. The left atrium is normal in size. 8. The right atrium is normal in size. 9. Lumason used 10. The aortic valve is trileaflet and appears structurally normal. 11. Trace amount of aortic regurgitation. 12. There is trace mitral regurgitation. 13. Trace tricuspid regurgitation present. 14. The right ventricular systolic pressure, as measured by Doppler, is 9.79mmHg. 15. Pulmonic valve appears structurally normal. 16. The aortic root size is normal. AVIONICS TEST TECHNICIAN: Elaine Eaton RDCS
[2018-03-31 07:32] LABS: Glucose,Whole Blood 90 mg/dL (75-99)
[2018-03-31] MEDS: INSULIN ASPART 100 UNIT/ML 1 ML 10 ML VIAL SQ SCH (08:06)
[2018-03-31] MEDS: methylPREDNISolone SOD SUCCI 125 MG/2 ML VIAL IV SCH (08:09)
[2018-03-31] MEDS: NADOLOL 20 MG TAB PO SCH (08:10)
[2018-03-31] MEDS: FUROSEMIDE 10 MG/ML 10 ML VIAL IV SCH (08:10)
[2018-03-31] MEDS: ENOXAPARIN 40 MG/0.4 ML SYRINGE SQ SCH (08:10)
[2018-03-31] MEDS: PANTOPRAZOLE 40 MG TABLET PO SCH (08:11)
[2018-03-31] MEDS: GLIMEPIRIDE 2 MG TAB PO SCH (08:11)
[2018-03-31] MEDS: ATORVASTATIN 80 MG TAB PO SCH (08:11)
[2018-03-31] MEDS: POTASSIUM CHLORIDE ER 20 MEQ TAB.ER PO SCH (08:11)
[2018-03-31] MEDS: guaiFENesin 600 MG TABLET.ER PO SCH (08:11)
[2018-03-31] MEDS: TAMSULOSIN 0.4 MG CAP.ER.24H PO SCH (08:11)
--- NOTE | 2018-03-31 08:53 | US ---
EXAMINATION TYPE: US venous doppler duplex LE BI DATE OF EXAM: 03/31/2018 7:15 AM COMPARISON: US 05/03/2014 CLINICAL HISTORY: 68-year-old male edema BLE . Bilateral leg swelling, CHF SIDE PERFORMED: Bilateral TECHNIQUE: The lower extremity deep venous system is examined utilizing real time linear array sonog althea with graded compression, doppler sonography and color-flow sonography. FINDINGS: VESSELS IMAGED: External Iliac Vein (EIV) Common Femoral Vein Deep Femoral Vein Greater Saphenous Vein * Femoral Vein Popliteal Vein Small Saphenous Vein * Proximal Calf Veins (* superficial vessels) Right Leg: Negative for DVT Left Leg: Negative for DVT IMPRESSION: No evidence for DVT within the bilateral lower extremities imaged from the groin to the upper calves.
[2018-03-31] MEDS ORDERED: FUROSEMIDE 40 MG TAB PO SCH (09:00)
[2018-03-31] MEDS ORDERED: ASPIRIN 81 MG PO SCH (09:00)
[2018-03-31] MEDS: FORMOTEROL FUMARATE 20 MCG/2 ML NEBU INHALATION SCH (09:28)
[2018-03-31] MEDS: BUDESONIDE 1 MG/2 ML NEBU INHALATION SCH (09:28)
[2018-03-31] MEDS: IPRATROPIUM-ALBUTEROL 3 ML NEB INHALATION SCH ×3 (09:28→16:55)
[2018-03-31 09:38] LABS: Albumin 3.5 g/dL (3.5-5.0); Blood Urea Nitrogen 26 mg/dL (9-20); Calcium 8.6 mg/dL (8.4-10.2); Chloride 99 mmol/L (98-107); Glucose 92 mg/dL (74-99); Potassium 3.6 mmol/L (3.5-5.1); Sodium 144 mmol/L (137-145)
[2018-03-31 09:46] LABS: Anion Gap 7 mmol/L
[2018-03-31 10:07] LABS: Carbon Dioxide 38 mmol/L (22-30)
--- NOTE | 2018-03-31 10:22 | XR ---
EXAMINATION TYPE: XR chest 2V DATE OF EXAM: 03/31/2018 COMPARISON: 03/28/2018 HISTORY: 68 year-old male shortness of breath, follow-up TECHNIQUE: PA and lateral views FINDINGS: Heart upper limits of normal in size. Aorta within normal in its. Perihilar densities and interstitia l prominence. No consolidation or pleural effusion. There is some thickening along the major fissure on the lateral view which could be secondary to some fluid or some adjacent atelectasis. Partially vi sualized right shoulder arthroplasty. IMPRESSION: Borderline heart size with increased/new perihilar and interstitial densities. Correlate to exclude m ild CHF. No roberta consolidation or pleural effusion.
[2018-03-31 12:24] LABS: Glucose,Whole Blood 63 mg/dL (75-99)
[2018-03-31 12:38] LABS: Glucose,Whole Blood 78 mg/dL (75-99)
--- NOTE | 2018-03-31 14:49 | P.PN ---
Subjective This is a pleasant 68-year-old male past medical history significant for coronary artery disease status post angioplasty of the mid and proximal RCA , hypertension, COPD, chronic hypoxic respiratory failure, hypertension, dyslipidemia, diabetes mellitus, obstructive sleep apnea, former nicotine dependence and obesity. He follows with Dr. Frazier in the office. Patient is seen walking up and down the hines in mild respiratory distress. He states this to be his baseline and he feels like he is ready to go home. Telemetry tracings indicate he went into an accelerated junction vs idioventricular rhythm this morning around 0900. He denies feeling chest pain, dizziness or palpitations at that time. Currently maintained on nadolol. Laboratory data reviewed, d-dimer negative, sodium 144, potassium 3.6, creatinine 0.89, magnesium 2.1. Blood pressure 145/67 heart rate 61 afebrile maintaining oxygen saturation on nasal cannula. Pulse ox checked after walking was 94% on room air. Repeat chest x- ray this morning reveals increased/new perihilar and interstitial densities. Bilateral lower extremity duplex is negative for DVTs bilaterally. GENERAL: This is a 68-year-old male in no apparent distress at the time of my examination. HEENT: Head is atraumatic, normocephalic. Pupils are equal, round. Sclerae anicteric. Conjunctivae are clear. Mucous membranes of the mouth are moist. Neck is supple. There is no jugular venous distention. No carotid bruit is heard. LUNGS: Coarse rhonchi, expiratory wheezes throughout and bibasilar rales noted. No chest wall tenderness is noted on palpation or with deep breathing. HEART: Regular rate and rhythm without murmurs, rubs or gallops. S1 and S2 heard. EXTREMITIES: Significant 2+ bilateral lower extremity edema and no calf tenderness noted. ASSESSMENT Acute on chronic diastolic heart failure, mild Acute on chronic hypoxemic respiratory failure Acute exacerbation of COPD Leukocytosis, resolved Coronary artery disease status post angioplasty Hypertension Dyslipidemia Diabetes mellitus Obesity, BMI 37 Obstructive sleep apnea Former nicotine dependence PLAN Lasix has been transitioned to oral. Discontinue nadolol and initiate on lopressor 12.5 BID starting on morning. Discharge planning underway per primary service. Nurse Practitioner note has been reviewed, I agree with a documented findings and plan of care. Patient was seen and examined. Objective - Vital Signs Vital signs: Vital Signs Temp 97.6 F 03/31/18 08:05 Pulse 84 03/31/18 13:03 Resp 18 03/31/18 08:05 BP 145/67 03/31/18 08:05 Pulse Ox 96 03/31/18 08:05 Intake & Output 03/30/18 03/31/18 03/31/18 18:59 06:59 18:59 Intake Total 500 296 Balance 500 296 Weight 109.8 kg 107.275 kg Intake: Intake, IV Titration 100 Amount Piperacillin-Tazobactam 3 100 .375 gm In Sodium Chloride 0.9% 100 ml @ 25 mls/hr IVPB Q8H [facility] Rx#: [id number] Oral 400 296 Other: # Voids 4 - Labs CBC & Chem 7: 03/30/18 08:01 03/31/18 08:47 Labs: Abnormal Lab Results - Last 24 Hours (Table) 03/30/18 03/30/18 03/31/18 Range/Units 16:56 20:10 08:47 Carbon Dioxide 38 H (22-30) mmol/L BUN 26 H (9-20) mg/dL POC Glucose (mg/dL) 155 H 151 H (75-99) mg/dL 03/31/18 Range/Units 12:07 Carbon Dioxide (22-30) mmol/L BUN (9-20) mg/dL POC Glucose (mg/dL) 63 L (75-99) mg/dL Microbiology - Last 24 Hours (Table) 03/24/18 23:00 Blood Culture - Final Blood No Growth after 144 hours
--- NOTE | 2018-03-31 16:11 | P.PN ---
Subjective Progress Note Date: 03/31/18 Principal diagnosis: Acute on chronic hypoxic respiratory failure secondary to acute exacerbation of COPD This is a 68-year-old white male patient of Dr. Keene, was recently hospitalized for community acquired pneumonia involving left mid lung, discharged home on 03/15/2018 after significantly improving clinically and radiographically. Patient presented to the emergency department on 03/24/2017 with complaints of increasing shortness of breath, low-grade fever of 99F, dry cough, abdominal discomfort from increased coughing spells. Patient usually wears oxygen on as-needed basis, but he noted his pulse ox at 86%. Patient is an ex-smoker, does have underlying history of COPD, I'll is with Dr. Torres in the pulmonary clinic. His baseline FEV1 is 1.71 L or 58% of predicted. Other medical history includes type 2 diabetes mellitus, hypercholesterolemia, CAD with previous stenting, chronic congestive heart failure, hypertension, GERD without esophagitis, obstructive sleep apnea syndrome, obesity. Patient quit smoking 10 years ago. Chest x-ray showed minimal infiltrate at the left lung base, this was compared to previous chest x-ray from 03/13/2018, and show significant overall improvement of the left lung. Follow-up chest x-ray on 05/2018 shows strand-like opacities at the lung bases and within the left mid lung suggesting atelectasis. Influenza screen was negative, lab work on admission showed WBC of 13.7, hemoglobin of 14.6, electrolytes were within normal limits, CO2 was elevated at 37, renal profile within normal limits, troponin negative 1, proBNP within normal limits at 101. Patient has been started on empiric antibiotics in the form of Zosyn and Levaquin, IV steroids, nebulized bronchodilators. Patient seen again today 03/27/2018 in follow-up on the regular medical floor. He is awake and alert in no acute distress. Ambulating within his room. He is breathing a bit easier today as compared to yesterday. Still not quite back to his baseline. Maintaining O2 saturations in the 90s on 3 L/m per nasal cannula. Afebrile. Hemodynamically stable. Blood culture reveals no growth to date. White count 12.8. Hemoglobin 13.5. Creatinine 0.75. Currently on Zosyn and Levaquin. The patient is seen today 03/28/2018 in follow-up on the regular medical floor. He is awake and alert in no acute distress. He is nearly back to his baseline. No worsening shortness of breath, cough or congestion. No chills or night sweats. Maintaining O2 saturations in the 90s on room air. He's been afebrile. Hemodynamically stable. A culture reveals no growth. Urine culture reveals no growth. White count 14.8. Hemoglobin 13.8. Creatinine 0.71. Reevaluated today on 03/29/2018, patient continues to cough wheezing continues to have shortness of breath with any activity. No fever no chills no hemoptysis no chest pain. Chest x-ray is reassuring, nonspecific residual findings noted in the left lower lobe, strongly doubt pneumonia. As a matter of fact his chest x-ray has shown a significant improvement compared to the chest x-ray on the last admission were and there was a significant infiltrate involving the left lung. CBC is relatively normal basic metabolic profile is normal renal profile is normal. All his meds were reviewed and discussed with the patient and his . On 03/30/2018 patient seen in follow-up on medical surgical floor. He sitting up in the chair, no acute distress, currently on 4 L per nasal cannula his pulse ox is 95%, afebrile, hemodynamically stable, he states his breathing is improving. Good air entry bilaterally, a few scattered wheezes, blood and urine culture showed no growth, we were unable to send a sputum culture, no fever or chills, less dyspneic and wheezy on today's exam. No worsening chest congestion, patient is on oral Levaquin. he is receiving IV Lasix. On 03/31/2018 patient seen in follow-up on medical surgical floor. Patient continues to improve, today's chest x-ray was reviewed with Dr. White, and shows increased perihilar and interstitial densities, patient has been diuresed , DVTs were ruled out via lower leg venous Dopplers done for the reason of bilateral leg swelling. Patient has been diuresing, she is down 2.6 kg in the last 24 hours. Lung sounds reveal minimal wheezing, a few coarse rhonchi. No fever or chills, clinically stable. Urine and blood culture negative Objective - Vital Signs Vital signs: Vital Signs Temp 97.6 F 03/31/18 08:05 Pulse 84 03/31/18 13:03 Resp 18 03/31/18 08:05 BP 145/67 03/31/18 08:05 Pulse Ox 96 03/31/18 08:05 Intake & Output 03/30/18 03/31/18 03/31/18 18:59 06:59 18:59 Intake Total 500 296 Balance 500 296 Weight 109.8 kg 107.275 kg Intake: Intake, IV Titration 100 Amount Piperacillin-Tazobactam 3 100 .375 gm In Sodium Chloride 0.9% 100 ml @ 25 mls/hr IVPB Q8H [facility] Rx#: [id number] Oral 400 296 Other: # Voids 4 - Exam GENERAL EXAM: Alert, pleasant, 68-year-old male, comfortable in no apparent distress. On 4 L nasal cannula. HEAD: Normocephalic/atraumatic. HEENT: PERRLA, EOMI, no icterus, moist mucous membranes, no neck masses, no JVD , no thyromegaly.. CHEST: No chest wall deformity. Symmetrical expansion. LUNGS: Equal air entry scattered wheezes and a few rhonchi CVS: Regular rate and rhythm, normal S1 and S2, no gallops, no murmurs, no rubs ABDOMEN: Soft, nontender. No hepatosplenomegaly, normal bowel sounds, no guarding or rigidity. EXTREMITIES: No clubbing, no edema, no cyanosis, 2+ pulses and upper and lower extremities. MUSCULOSKELETAL: Muscle strength and tone normal. SPINE: No scoliosis or deformity SKIN: No rashes CENTRAL NERVOUS SYSTEM: Alert and oriented -3. No focal deficits, tone is normal in all 4 extremities. PSYCHIATRIC: Alert and oriented -3. Appropriate affect. Intact judgment and insight. - Labs CBC & Chem 7: 03/30/18 08:01 03/31/18 08:47 Labs: Abnormal Lab Results - Last 24 Hours (Table) 03/30/18 03/30/18 03/31/18 Range/Units 16:56 20:10 08:47 Carbon Dioxide 38 H (22-30) mmol/L BUN 26 H (9-20) mg/dL POC Glucose (mg/dL) 155 H 151 H (75-99) mg/dL 03/31/18 Range/Units 12:07 Carbon Dioxide (22-30) mmol/L BUN (9-20) mg/dL POC Glucose (mg/dL) 63 L (75-99) mg/dL Microbiology - Last 24 Hours (Table) 03/24/18 23:00 Blood Culture - Final Blood No Growth after 144 hours Assessment and Plan Plan: Assessment: #1. Acute on chronic hypoxemic respiratory failure secondary to acute exacerbation of chronic obstructive pulmonary disease with tracheobronchitis. Chest x-ray shows actually improving minimal left basilar infiltrate versus atelectasis since previous admission in February 2018 #2. Recent hospitalization for community acquired pneumonia involving the extensive portion of the lateral left mid lung #3. Moderately severe COPD with chronic hypoxemic respiratory failure with baseline FEV1 of 1.71 L or 58% of predicted #4. Coronary artery disease with previous stenting #5. 2 diabetes mellitus #6. Hypertension, hypercholesterolemia #7. GERD #8. Obstructive sleep apnea syndrome #9. Obesity #10. Severe arthritis #11. Nicotine dependence, in remission, patient quit 10 years ago #12. Acute on chronic exacerbation of congestive heart failure, with diastolic dysfunction. Plan: His chest x-ray has been reviewed with Dr. Neal, shows mild CHF, clinically patient is improving, no fever or chills, breathing easier, he is diuresing, he was given additional dose of IV Lasix per cardiology, from pulmonary standpoint he is stable, he can be considered for discharge home once he is cleared by cardiology. I performed a history & physical examination of the patient and discussed their management with my nurse practitioner, Skylar Mckoy. I reviewed the nurse practitioner's note and agree with the documented findings and plan of care. Lung sounds are positive for scattered wheezes and rhonchi. The findings and the impression was discussed with the patient. I attest to the documentation by the nurse practitioner. Time with Patient: Less than 30
--- NOTE | 2018-03-31 16:30 | P.DS ---
Providers Date of admission: 03/25/18 00:20 Expected date of discharge: 03/31/18 Attending physician: Isabell Huertas Consults: 03/25/18 15:21 Consult Physician Routine Consulting Provider: Rahul Chang Consult Reason/Comments: pneumonia Do you want consulting provider notified?: Yes 03/29/18 21:52 Consult Physician Routine Consulting Provider: Bertram Arana Consult Reason/Comments: chf Do you want consulting provider notified?: Yes [facility]: Final Diagnoses: - Acute on chronic hypoxemic respiratory failure secondary to acute exacerbation of chronic obstructive pulmonary disease with acute left lower lobe pneumonia, possibly gram-negative, possibly healthcare associated with failure of outpatient treatment - Moderately severe COPD with chronic hypoxemic respiratory failure -Possible acute CHF exacerbation - Coronary artery disease with previous stenting - diabetes mellitus - Hypertension, - hypercholesterolemia - Nicotine dependence, in remission, patient quit 10 years ago -Runs of V. tach, felt to be idioventricular per cardiology Hospital course: This is a 68-year-old gentleman admitted with acute on chronic hypoxic respiratory failure secondary to acute COPD, acute left lower lobe pneumonia, possible CHF exacerbation also. Evaluated by pulmonary and cardiology. Patient also had a 27 beat nonsustained, asymptomatic run; felt to be idioventricular, heart rate was in the 50s during the occurrence, instead of V. tach as per cardiology. Magnesium within normal limits. Switched from Corgard to Lopresso .Diuresed on IV push Lasix, maintained on nebulized bronchodilators, antibiotics, steroids. Significant clinical improvement. Cleared by all consults for discharge. Patient is being discharged home in a stable condition with guarded prognosis. - Exam GENERAL EXAM: Alert and oriented 3, no acute distress LUNGS: Equal air entry, occasional scattered expiratory wheezes CVS: Regular rate and rhythm, normal S1 and S2, no gallops, no murmurs, no rubs ABDOMEN: Soft, nontender. No hepatosplenomegaly, normal bowel sounds CENTRAL NERVOUS SYSTEM: No focal deficits. The impression and plan of care has been dictated as directed. : I performed a history and examination of this patient, discussed the same with the dictator. I agree with the dictator's note ,documented as a scribe. Any additional findings or plans will be noted. Time taken: 35 minutes Patient Condition at Discharge: Stable Plan - Discharge Summary Discharge Rx Participant: No New Discharge Prescriptions: New Aspirin 81 mg PO DAILY chew Furosemide [Lasix] 40 mg PO DAILY #30 tab Metoprolol Tartrate [Lopressor] 12.5 mg PO BID #60 tab Amoxic-Pot Clav 875-125Mg [Augmentin 875-125] 1 tab PO Q12HR #10 tablet predniSONE 10 mg PO DIRECTED #30 tab Continue Omeprazole [PriLOSEC] 20 mg PO HS Nitroglycerin Sl Tabs [Nitrostat] 0.4 mg SUBLINGUAL Q5M PRN PRN Reason: Chest Pain Atorvastatin [Lipitor] 80 mg PO DAILY Glimepiride [Amaryl] 2 mg PO AC-BRKFST Tamsulosin HCl [Flomax] 0.4 mg PO DAILY Albuterol Nebulized [Ventolin Nebulized] 2.5 mg INHALATION RT-Q6H Fluticasone/Vilanterol [Breo Ellipta 100-25 Mcg Inhaler] 1 puff INHALATION RT -DAILY Potassium Chloride ER [K-Dur 20] 20 meq PO BID #0 Insulin Glargine [Lantus] 30 unit SQ HS Discontinued methylPREDNISolone [Medrol] 4 mg PO DAILY Nadolol [Corgard] 20 mg PO BID predniSONE See Taper PO DAILY Discharge Medication List Nitroglycerin Sl Tabs [Nitrostat] 0.4 mg SUBLINGUAL Q5M PRN 03/09/14 [History] Omeprazole [PriLOSEC] 20 mg PO HS 03/09/14 [History] Atorvastatin [Lipitor] 80 mg PO DAILY 05/08/15 [History] Glimepiride [Amaryl] 2 mg PO AC-BRKFST 10/09/16 [History] Tamsulosin HCl [Flomax] 0.4 mg PO DAILY 10/09/16 [History] Albuterol Nebulized [Ventolin Nebulized] 2.5 mg INHALATION RT-Q6H 03/12/18 [ History] Fluticasone/Vilanterol [Breo Ellipta 100-25 Mcg Inhaler] 1 puff INHALATION RT- DAILY 03/12/18 [History] Potassium Chloride ER [K-Dur 20] 20 meq PO BID #0 03/15/18 [Rx] Insulin Glargine [Lantus] 30 unit SQ HS 03/25/18 [History] Amoxic-Pot Clav 875-125Mg [Augmentin 875-125] 1 tab PO Q12HR #10 tablet [Rx] Aspirin 81 mg PO DAILY chew 03/31/18 [Rx] Furosemide [Lasix] 40 mg PO DAILY #30 tab 03/31/18 [Rx] Metoprolol Tartrate [Lopressor] 12.5 mg PO BID #60 tab 03/31/18 [Rx] predniSONE 10 mg PO DIRECTED #30 tab 03/31/18 [Rx] Follow up Appointment(s)/Referral(s): Rahul Chang MD [STAFF PHYSICIAN] - 04/10/18 10:15 am Gaurang Frazier MD [STAFF PHYSICIAN] - 1 Week (Office will call pt with appt.) Rk Keene III, MD [Primary Care Provider] - 04/03/18 2:30 pm Ambulatory/Diagnostic Orders: Complete Blood Count w/diff [LAB.AMB] Time Frame: 3 Days, Location: None Selected Activity/Diet/Wound Care/Special Instructions: Diet: Consistent carb, cardiac Activity: Limited until follow up
[2018-03-31 16:44] VITALS: BP 129/68; RESP 16; TEMP 97.7
[2018-03-31 17:08] VITALS: PULSE 74
[2018-03-31 17:41] LABS: Glucose,Whole Blood 109 mg/dL (75-99)
[2018-04-01] MEDS ORDERED: PRAMIPEXOLE 0.5 MG TAB PO SCH (21:45)
[2018-04-01] MEDS ORDERED: ACETAMINOPHEN TAB 325 MG TAB PO PRN (21:45)
[2018-04-02] MEDS ORDERED: METOPROLOL TARTRATE 12.5 MG TAB PO SCH (09:00)
== END 2018-03-31 18:34 | disposition home or self-care (01) | DRG 177 ==
LOC: EC 22:25 → 4SSUR 03-25 00:20
PROVIDERS: ADMIT Hospitalist; ATTEND Hospitalist
DX: J15.6 Pneumonia due to other Gram-negative bacteria (principal); J96.21 Acute and chronic respiratory failure with hypoxia; I50.33 Acute on chronic diastolic (congestive) heart failure; I47.2 Ventricular tachycardia; J44.0 Chronic obstructive pulmonary disease with (acute) lower respiratory infection; J44.1 Chronic obstructive pulmonary disease with (acute) exacerbation; Z87.891 Personal history of nicotine dependence; E11.9 Type 2 diabetes mellitus without complications; E66.9 Obesity, unspecified; E78.00 Pure hypercholesterolemia, unspecified; E78.5 Hyperlipidemia, unspecified; G47.33 Obstructive sleep apnea (adult) (pediatric); I11.0 Hypertensive heart disease with heart failure; I25.10 Atherosclerotic heart disease of native coronary artery without angina pectoris; I45.10 Unspecified right bundle-branch block; K21.9 Gastro-esophageal reflux disease without esophagitis; M19.90 Unspecified osteoarthritis, unspecified site; Z68.37 Body mass index [BMI] 37.0-37.9, adult; Z79.4 Long term (current) use of insulin; Z79.52 Long term (current) use of systemic steroids; Z79.82 Long term (current) use of aspirin; Z79.899 Other long term (current) drug therapy; Z82.49 Family history of ischemic heart disease and other diseases of the circulatory system; Z86.73 Personal history of transient ischemic attack (TIA), and cerebral infarction without residual deficits; Z87.01 Personal history of pneumonia (recurrent); Z95.5 Presence of coronary angioplasty implant and graft; Z96.611 Presence of right artificial shoulder joint; Z96.652 Presence of left artificial knee joint; I70.0 Atherosclerosis of aorta
CPT/HCPCS: 36415; 71045; 71046; 80048; 80053; 81003; 82040; 82550; 82553; 83036; 83735; 83880; 84484; 85025; 85379; 85610; 85730; 87040; 87086; 87502; 93005; 93306; 93970; 94640; 94644; 94760

== ENCOUNTER 2018-04-01 12:46 | Observation (INO) | payer MEDICARE ==
[2018-04-01] MEDS ORDERED: FUROSEMIDE 10 MG/ML 4 ML VIAL IV STA (13:18)
--- NOTE | 2018-04-01 13:24 | ED ---
General Adult HPI - General Chief complaint: Shortness of Breath Stated complaint: SLOAN Time Seen by Provider: 04/01/18 12:55 Source: patient, family, RN notes reviewed Mode of arrival: ambulatory Limitations: no limitations - History of Present Illness Initial comments: This is 68-year-old male who presents emergency Department with a past medical history significant for congestive heart failure. Patient was in the hospital for one week and was discharged yesterday for congestive heart. Patient states since he got home he gained 4 pounds 8 having difficult to breathing. Patient states prior to going in the hospital he was on Lasix 120 mg a day 80 the morning and 40 at night and now they have taken him down to only 41 time a day. Patient denies any fever chills. Patient denies any chest pain or palpitations. Patient denies any abdominal pain patient denies nausea vomiting diarrhea. Patient denies any lightheadedness dizziness or near syncopal episode. Patient does state that both of his legs are much more swollen than they were yesterday. - Related Data Home Medications Medication Instructions Recorded Confirmed Nitroglycerin Sl Tabs [Nitrostat] 0.4 mg SUBLINGUAL Q5M PRN 03/09/14 04/01/18 Omeprazole [PriLOSEC] 20 mg PO HS 03/09/14 04/01/18 Atorvastatin [Lipitor] 80 mg PO DAILY 05/08/15 04/01/18 Glimepiride [Amaryl] 2 mg PO AC-BRKFST 10/09/16 04/01/18 Tamsulosin HCl [Flomax] 0.4 mg PO HS 10/09/16 04/01/18 Albuterol Nebulized [Ventolin 2.5 mg INHALATION RT-Q6H 03/12/18 04/01/18 Nebulized] Fluticasone/Vilanterol [Breo 1 puff INHALATION RT-DAILY 03/12/18 04/01/18 Ellipta 100-25 Mcg Inhaler] Insulin Glargine [Lantus] 30 unit SQ HS 03/25/18 04/01/18 Furosemide [Lasix] 80 mg PO DAILY 04/01/18 04/01/18 predniSONE See Taper PO DIRECTED 04/01/18 04/01/18 Previous Rx's Medication Instructions Recorded Potassium Chloride ER [K-Dur 20] 20 meq PO BID #0 03/15/18 Amoxic-Pot Clav 875-125Mg 1 tab PO Q12HR #10 tablet 03/31/18 [Augmentin 875-125] Aspirin 81 mg PO DAILY chew 03/31/18 Metoprolol Tartrate [Lopressor] 12.5 mg PO BID #60 tab 03/31/18 Allergies Allergy/AdvReac Type Severity Reaction Status Date / Time prednisone AdvReac "MADE ME Verified 04/01/18 13:32 VERY ANGRY" Review of Systems ROS Statement: Those systems with pertinent positive or pertinent negative responses have been documented in the HPI. ROS Other: All systems not noted in ROS Statement are negative. Past Medical History Past Medical History: Coronary Artery Disease (CAD), Chest Pain / Angina, Heart Failure, COPD, GERD/Reflux, Hyperlipidemia, Hypertension, Osteoarthritis (OA), Pneumonia, Prostate Disorder Additional Past Medical History / Comment(s): 03/12/18 pt wants a flu vaccine before discharge if ok with other hx includes: MINI STROKES - MRI DONE AT [facility] SMALL VESSEL DX, pt stated diet control dm-no meds no bs checks. SLEEP APNEA/cpap, History of Any Multi-Drug Resistant Organisms: None Reported Past Surgical History: Back Surgery, Heart Catheterization With Stent, Joint Replacement, Orthopedic Surgery Additional Past Surgical History / Comment(s): TOTAL LEFT KNEE, FELIPE KNEE ARTHROSCOPY, rt shoulder replacement, HEART STENT X3,lt hand sx Past Anesthesia/Blood Transfusion Reactions: No Reported Reaction Additional Past Anesthesia/Blood Transfusion Reaction / Comment(s): STATES "HAD A HARD TIME WITH BREATHING POST OP" Date of Last Stent Placement:: 2009 Past Psychological History: No Psychological Hx Reported Smoking Status: Former smoker Past Alcohol Use History: None Reported Past Drug Use History: None Reported - Past Family History Father Family Medical History: CVA/TIA, Hyperlipidemia, Hypertension Mother Family Medical History: Hypertension General Exam - General Exam Comments Initial Comments: GENERAL: Patient is well-developed and well-nourished. Patient is nontoxic and well- hydrated and is in mild distress. ENT: Neck is soft and supple. No significant lymphadenopathy is noted. Oropharynx is clear. Moist mucous membranes. Neck has full range of motion without eliciting any pain. EYES: The sclera were anicteric and conjunctiva were pink and moist. Extraocular movements were intact and pupils were equal round and reactive to light. Eyelids were unremarkable. PULMONARY: Patient has slight crackles bilaterally CARDIOVASCULAR: There is a regular rate and rhythm without any murmurs gallops or rubs. ABDOMEN: Soft and nontender with normal bowel sounds. SKIN: Skin is clear with no lesions or rashes and otherwise unremarkable. NEUROLOGIC: Patient is alert and oriented x3. Cranial nerves II through XII are grossly intact. Motor and sensory are also intact. Normal speech, volume and content. Symmetrical smile. MUSCULOSKELETAL: Normal extremities with adequate strength and full range of motion. Patient is 2+ edema bilaterally LYMPHATICS: No significant lymphadenopathy is noted PSYCHIATRIC: Normal psychiatric evaluation. Limitations: no limitations Course Vital Signs 04/01/18 04/01/18 12:54 13:21 Temperature 98.4 F Pulse Rate 61 53 L Respiratory 18 24 Rate Blood Pressure 144/74 153/82 O2 Sat by Pulse 91 L 94 L Oximetry Medical Decision Making - Medical Decision Making Patient's EKG shows a sinus bradycardia at 44 bpm RI interval is 118 QRS 96 QT interval 460 QTC is 436. Patient's EKG shows no ST segment elevation or depression or T wave abnormalities are noted. Chest x-ray shows no obvious fluid overload. I spoke with Dr. Pizarro and he wanted to admit the patient for 23 observation - Lab Data Result diagrams: 04/01/18 13:35 04/01/18 13:35 Lab Results 04/01/18 04/01/18 04/01/18 Range/Units 13:35 13:35 13:35 WBC 15.7 H (3.8-10.6) k/uL RBC 4.86 (4.30-5.90) m/uL Hgb 15.0 (13.0-17.5) gm/dL Hct 47.2 (39.0-53.0) % MCV 97.2 (80.0-100.0) fL MCH 30.9 (25.0-35.0) pg MCHC 31.8 (31.0-37.0) g/dL RDW 13.8 (11.5-15.5) % Plt Count 189 (150-450) k/uL Neutrophils % 91 % Lymphocytes % 5 % Monocytes % 3 % Eosinophils % 1 % Basophils % 0 % Neutrophils # 14.3 H (1.3-7.7) k/uL Lymphocytes # 0.7 L (1.0-4.8) k/uL Monocytes # 0.5 (0-1.0) k/uL Eosinophils # 0.1 (0-0.7) k/uL Basophils # 0.0 (0-0.2) k/uL PT (9.0-12.0) sec INR (<1.2) APTT (22.0-30.0) sec Sodium 141 (137-145) mmol/L Potassium 3.7 (3.5-5.1) mmol/L Chloride 100 (98-107) mmol/L Carbon Dioxide 36 H (22-30) mmol/L Anion Gap 5 mmol/L BUN 28 H (9-20) mg/dL Creatinine 0.72 (0.66-1.25) mg/dL Est GFR (CKD-EPI)AfAm >90 (>60 ml/min/1.73 sqM) Est GFR (CKD-EPI)NonAf >90 (>60 ml/min/1.73 sqM) Glucose 69 L (74-99) mg/dL Calcium 8.5 (8.4-10.2) mg/dL Total Bilirubin 1.1 (0.2-1.3) mg/dL AST 49 (17-59) U/L ALT 69 (21-72) U/L Alkaline Phosphatase 66 (38-126) U/L Total Creatine Kinase (55-170) U/L CK-MB (CK-2) (0.0-2.4) ng/mL CK-MB (CK-2) Rel Index Troponin I (0.000-0.034) ng/mL NT-Pro-B Natriuret Pep 392 pg/mL Total Protein 6.0 L (6.3-8.2) g/dL Albumin 3.4 L (3.5-5.0) g/dL 04/01/18 04/01/18 Range/Units 13:35 13:35 WBC (3.8-10.6) k/uL RBC (4.30-5.90) m/uL Hgb (13.0-17.5) gm/dL Hct (39.0-53.0) % MCV (80.0-100.0) fL MCH (25.0-35.0) pg MCHC (31.0-37.0) g/dL RDW (11.5-15.5) % Plt Count (150-450) k/uL Neutrophils % % Lymphocytes % % Monocytes % % Eosinophils % % Basophils % % Neutrophils # (1.3-7.7) k/uL Lymphocytes # (1.0-4.8) k/uL Monocytes # (0-1.0) k/uL Eosinophils # (0-0.7) k/uL Basophils # (0-0.2) k/uL PT 10.2 (9.0-12.0) sec INR 0.9 (<1.2) APTT 19.8 L (22.0-30.0) sec Sodium (137-145) mmol/L Potassium (3.5-5.1) mmol/L Chloride (98-107) mmol/L Carbon Dioxide (22-30) mmol/L Anion Gap mmol/L BUN (9-20) mg/dL Creatinine (0.66-1.25) mg/dL Est GFR (CKD-EPI)AfAm (>60 ml/min/1.73 sqM) Est GFR (CKD-EPI)NonAf (>60 ml/min/1.73 sqM) Glucose (74-99) mg/dL Calcium (8.4-10.2) mg/dL Total Bilirubin (0.2-1.3) mg/dL AST (17-59) U/L ALT (21-72) U/L Alkaline Phosphatase (38-126) U/L Total Creatine Kinase 43 L (55-170) U/L CK-MB (CK-2) 0.9 (0.0-2.4) ng/mL CK-MB (CK-2) Rel Index 2.1 Troponin I <0.012 (0.000-0.034) ng/mL NT-Pro-B Natriuret Pep pg/mL Total Protein (6.3-8.2) g/dL Albumin (3.5-5.0) g/dL Disposition Clinical Impression: Acute pulmonary edema Disposition: ADMITTED IP TO THIS HOSP Referrals: Rk Keene III, MD [Primary Care Provider] - 1-2 days Time of Disposition: 16:19
--- NOTE | 2018-04-01 14:06 | XR ---
EXAMINATION TYPE: XR chest 2V DATE OF EXAM: 04/01/2018 COMPARISON: 03/31/2018 HISTORY: Shortness of breath with bilateral lower extremity edema and difficulty breathing TECHNIQUE: Frontal and lateral views of the chest are obtained. FINDINGS: There is no focal air space opacity, pleural effusion, or pneumothorax seen. The cardiac silhouette size is prominent, again upper limits of normal. The osseous structures are intact. Ther e is a right humeral arthroplasty partially visualized. IMPRESSION: No acute cardiopulmonary process. No radiographic sequela of decompensated congestive he art failure
[2018-04-01 14:36] LABS: Basophils % (A) 0 %; Eosinophils # (A) 0.1 k/uL (0-0.7); Eosinophils % (A) 1 %; HCT 47.2 % (39.0-53.0); Lymphocytes # (A) 0.7 k/uL (1.0-4.8); Lymphocytes % (A) 5 %; MCH 30.9 pg (25.0-35.0); MCHC 31.8 g/dL (31.0-37.0); MCV 97.2 fL (80.0-100.0); Mean Platelet Volume 8.2; Monocytes # (A) 0.5 k/uL (0-1.0); Monocytes % (A) 3 %; Neutrophils # (A) 14.3 k/uL (1.3-7.7); Neutrophils % (A) 91 %; Platelet Count 189 k/uL (150-450); RBC 4.86 m/uL (4.30-5.90); RDW 13.8 % (11.5-15.5); WBC 15.7 k/uL (3.8-10.6)
[2018-04-01 14:43] LABS: Creatine Kinase 43 U/L (55-170)
[2018-04-01 14:45] LABS: ALT 69 U/L (21-72); AST 49 U/L (17-59); Albumin 3.4 g/dL (3.5-5.0); Alkaline Phosphatase 66 U/L (38-126); Anion Gap 5 mmol/L; Blood Urea Nitrogen 28 mg/dL (9-20); Calcium 8.5 mg/dL (8.4-10.2); Carbon Dioxide 36 mmol/L (22-30); Chloride 100 mmol/L (98-107); Glucose 69 mg/dL (74-99); Potassium 3.7 mmol/L (3.5-5.1); Sodium 141 mmol/L (137-145); Total Bilirubin 1.1 mg/dL (0.2-1.3)
[2018-04-01 14:48] LABS: INR 0.9 (<1.2); Prothrombin Time 10.2 sec (9.0-12.0)
[2018-04-01 14:56] LABS: Creatine Kinase MB 0.9 ng/mL (0.0-2.4); Troponin I <0.012 ng/mL (0.000-0.034)
[2018-04-01 15:15] LABS: Partial Thromboplastin Time 19.8 sec (22.0-30.0)
[2018-04-01] MEDS ORDERED: NITROGLYCERIN SL TABS 0.4 MG TAB SUBLINGUAL PRN (16:59)
[2018-04-01] MEDS ORDERED: IPRATROPIUM-ALBUTEROL 3 ML NEB INHALATION PRN (17:01)
--- NOTE | 2018-04-01 17:09 | P.HPIM ---
History of Present Illness 68-year-old male was recently discharged from the hospital actually yesterday after he was treated for COPD left lower lobe pneumonia and CHF exacerbation chronic diastolic dysfunction. Patient came back again with the increasing pedal edema weight gain and shadows of breath. Chest x-ray did not show any increased pulmonary edema BNP is only 300. Patient also has bilateral leg swelling which is bit worse compared to yesterday. Patient does not have any significant wheezing does have diffuse crackles on exam. Patient will be resumed on Augmentin I'll obtain ABG and CAT scan of the chest rule out pulmonary embolism as well as to see the status of his pneumonia. Etiology of his shots of breath is not clear at this time patient will be started on Lasix in the IV form will get the opinion of the pulmonology. Patient denied any fever chills nausea vomiting. Review of Systems REVIEW OF SYSTEMS: CONSTITUTIONAL: No fever, no malaise, no fatigue. HEENT: No recent visual problems or hearing problems. Denied any sore throat. CARDIOVASCULAR: No chest pain, orthopnea, PND, no palpitations, no syncope. PULMONARY, no hemoptysis. GASTROINTESTINAL: No diarrhea, no nausea, no vomiting, no abdominal pain. NEUROLOGICAL: No headaches, no weakness, no numbness. HEMATOLOGICAL: Denies any bleeding or petechiae. GENITOURINARY: Denies any burning micturition, frequency, or urgency. MUSCULOSKELETAL/RHEUMATOLOGICAL: Denies any joint pain, swelling, or any muscle pain. ENDOCRINE: Denies any polyuria or polydipsia. The rest of the 14-point review of systems is negative. Past Medical History Past Medical History: Coronary Artery Disease (CAD), Chest Pain / Angina, Heart Failure, COPD, GERD/Reflux, Hyperlipidemia, Hypertension, Osteoarthritis (OA), Pneumonia, Prostate Disorder Additional Past Medical History / Comment(s): 03/12/18 pt wants a flu vaccine before discharge if ok with dr. jean baptiste hx includes: MINI STROKES - MRI DONE AT [facility] SMALL VESSEL DX, pt stated diet control dm-no meds no bs checks. SLEEP APNEA/cpap, History of Any Multi-Drug Resistant Organisms: None Reported Past Surgical History: Back Surgery, Heart Catheterization With Stent, Joint Replacement, Orthopedic Surgery Additional Past Surgical History / Comment(s): TOTAL LEFT KNEE, FELIPE KNEE ARTHROSCOPY, rt shoulder replacement, HEART STENT X3,lt hand sx Past Anesthesia/Blood Transfusion Reactions: No Reported Reaction Additional Past Anesthesia/Blood Transfusion Reaction / Comment(s): STATES "HAD A HARD TIME WITH BREATHING POST OP" Date of Last Stent Placement:: 2009 Past Psychological History: No Psychological Hx Reported Smoking Status: Former smoker Past Alcohol Use History: None Reported Past Drug Use History: None Reported - Past Family History Father Family Medical History: CVA/TIA, Hyperlipidemia, Hypertension Mother Family Medical History: Hypertension Medications and Allergies Home Medications Medication Instructions Recorded Confirmed Type Nitroglycerin Sl Tabs [Nitrostat] 0.4 mg SUBLINGUAL Q5M PRN 03/09/14 04/01/18 History Omeprazole [PriLOSEC] 20 mg PO HS 03/09/14 04/01/18 History Atorvastatin [Lipitor] 80 mg PO DAILY 05/08/15 04/01/18 History Glimepiride [Amaryl] 2 mg PO AC-BRKFST 10/09/16 04/01/18 History Tamsulosin HCl [Flomax] 0.4 mg PO HS 10/09/16 04/01/18 History Albuterol Nebulized [Ventolin 2.5 mg INHALATION RT-Q6H 03/12/18 04/01/18 History Nebulized] Fluticasone/Vilanterol [Breo 1 puff INHALATION RT-DAILY 03/12/18 04/01/18 History Ellipta 100-25 Mcg Inhaler] Potassium Chloride ER [K-Dur 20] 20 meq PO BID #0 03/15/18 04/01/18 Rx Insulin Glargine [Lantus] 30 unit SQ HS 03/25/18 04/01/18 History Amoxic-Pot Clav 875-125Mg 1 tab PO Q12HR #10 tablet 03/31/18 04/01/18 Rx [Augmentin 875-125] Aspirin 81 mg PO DAILY chew 03/31/18 04/01/18 Rx Metoprolol Tartrate [Lopressor] 12.5 mg PO BID #60 tab 03/31/18 04/01/18 Rx Furosemide [Lasix] 80 mg PO DAILY 04/01/18 04/01/18 History predniSONE See Taper PO DIRECTED 04/01/18 04/01/18 History Allergies Allergy/AdvReac Type Severity Reaction Status Date / Time prednisone AdvReac "MADE ME Verified 04/01/18 13:32 VERY ANGRY" Physical Exam Vitals: Vital Signs Temp Pulse Resp BP Pulse Ox 04/01/18 13:21 53 L 24 153/82 94 L 04/01/18 12:54 98.4 F 61 18 144/74 91 L Intake and Output 04/01/18 04/01/18 04/01/18 06:59 14:59 22:59 Other: Weight 108.862 kg PHYSICAL EXAMINATION: GENERAL: The patient is alert and oriented x3, not in any acute distress. morbidly obese HEENT: Pupils are round and equally reacting to light. EOMI. No scleral icterus. No conjunctival pallor. Normocephalic, atraumatic. No pharyngeal erythema. No thyromegaly. CARDIOVASCULAR: S1 and S2 present. No murmurs, rubs, or gallops. PULMONARY: diffuse bilateral crackles on exam. Predominantly in the left middle and lower lobes procedure in wheezing was appreciated ABDOMEN: Soft, nontender, nondistended, normoactive bowel sounds. No palpable organomegaly. MUSCULOSKELETAL: No joint swelling or deformity. EXTREMITIES: No cyanosis, clubbing, or pedal edema. NEUROLOGICAL: Gross neurological examination did not reveal any focal deficits. SKIN: No rashes. Results CBC & Chem 7: 04/01/18 13:35 04/01/18 13:35 Labs: Abnormal Lab Results - Last 24 Hours (Table) 04/01/18 04/01/18 04/01/18 Range/Units 13:35 13:35 13:35 WBC 15.7 H (3.8-10.6) k/uL Neutrophils # 14.3 H (1.3-7.7) k/uL Lymphocytes # 0.7 L (1.0-4.8) k/uL APTT 19.8 L (22.0-30.0) sec Carbon Dioxide 36 H (22-30) mmol/L BUN 28 H (9-20) mg/dL Glucose 69 L (74-99) mg/dL Total Creatine Kinase (55-170) U/L Total Protein 6.0 L (6.3-8.2) g/dL Albumin 3.4 L (3.5-5.0) g/dL 04/01/18 Range/Units 13:35 WBC (3.8-10.6) k/uL Neutrophils # (1.3-7.7) k/uL Lymphocytes # (1.0-4.8) k/uL APTT (22.0-30.0) sec Carbon Dioxide (22-30) mmol/L BUN (9-20) mg/dL Glucose (74-99) mg/dL Total Creatine Kinase 43 L (55-170) U/L Total Protein (6.3-8.2) g/dL Albumin (3.5-5.0) g/dL Assessment and Plan Plan: shortness of breath etiology is not clear at this time: Probably multifactorial is no evidence of exacerbation of CHF had a normal BNP chest x-ray did not show any pulmonary edema patient does not have any elevated JVD. I'll obtain a CAT scan of the chest rule out pulmonary embolism as well as to find out his status regarding his pneumonia which is not evident on x-rays. Will get the opinion of pulmonology patient was started on oral steroids Augmentin, Lasix will be switched to IV. -History of COPD uses 4 L of onset and patient has chronic hypercapnic respiratory failure patient will be resumed on 4 L and will be started on oral steroids I do not have any overt evidence of for COPD exacerbation either at this time. -Recent pneumonia -carotid artery disease with previous stenting -Type 2 diabetes mellitus patient will be resumed on his home regimen titrate the his regimen depending on the blood sugars and requirement of insulin -Hypertension -Hyperlipidemia -Nonsustained VT during his last hospitalization for which no intervention at this time. -Obesity possibly of sleep apnea.
--- NOTE | 2018-04-01 17:56 | CT ---
EXAMINATION TYPE: CT angio chest DATE OF EXAM: 04/01/2018 5:27 PM COMPARISON: None HISTORY: SOB CT DLP: 476.6 mGycm Automated exposure control for dose reduction was used. CONTRAST: CTA scan of the thorax is performed with IV Contrast, patient injected with 100 mL of Isovue 370, pul monary embolism protocol. There are 3-D post processed images.. FINDINGS: There is minimal pulmonary emphysema. The lungs are clear of consolidation. There is small linear den sity at the posterior lung bases consistent with scarring and atelectasis. The heart size is normal. There is no pericardial effusion. I see no evidence of a pulmonary mass. There are no hilar masses. T here is a 1 cm left bronchial lymph node. There is 2 small bronchial lymph nodes on the right side. T here is no mediastinal adenopathy. Thoracic aorta is atheromatous. There is no evidence of aneurysm o r dissection. There is normal contrast opacification of the pulmonary arteries. I see no filling defect. The bony t horax is intact. IMPRESSION: NO EVIDENCE OF PULMONARY EMBOLISM. MILD SCARRING AND SUBSEGMENTAL ATELECTASIS AT THE LUNG BASES.
[2018-04-01] MEDS: IPRATROPIUM-ALBUTEROL 3 ML NEB INHALATION SCH (20:24)
[2018-04-01] MEDS: SYMBICORT 80-4.5 MCG INHALER INHALATION SCH (20:37)
[2018-04-01 20:51] LABS: ABG PH 7.54 (7.35-7.45)
[2018-04-01 20:52] LABS: ABG HCO3 40 mmol/L (21-25); ABG PCO2 48 mmHg (35-45); ABG PO2 96 mmHg (83-108); ABG TCO2 96 mmol/L (19-24)
[2018-04-01 21:14] LABS: Glucose,Whole Blood 190 mg/dL (75-99)
[2018-04-01] MEDS ORDERED: ACETAMINOPHEN TAB 325 MG TAB PO PRN (21:47)
[2018-04-01] MEDS ORDERED: PRAMIPEXOLE 0.5 MG TAB PO SCH (22:00)
[2018-04-01] MEDS: POTASSIUM CHLORIDE ER 20 MEQ TAB.ER PO SCH (22:46)
[2018-04-01] MEDS: METOPROLOL TARTRATE 12.5 MG TAB PO SCH (22:46)
[2018-04-01] MEDS: TAMSULOSIN 0.4 MG CAP.ER.24H PO SCH (22:46)
[2018-04-01] MEDS: PANTOPRAZOLE 40 MG TABLET PO SCH (22:46)
[2018-04-01] MEDS: AMOXIC-POT CLAV 875-125MG 1 EACH TAB PO SCH (22:47)
[2018-04-01] MEDS: FUROSEMIDE 10 MG/ML 4 ML VIAL IV SCH (22:47)
[2018-04-01] MEDS: INSULIN DETEMIR 100 UNIT/ML 10 ML VIAL SQ SCH (22:48)
[2018-04-01] MEDS: MELATONIN 3 MG TABLET PO SCH (22:50)
[2018-04-02 07:28] LABS: Glucose,Whole Blood 48 mg/dL (75-99)
[2018-04-02] MEDS: SYMBICORT 80-4.5 MCG INHALER INHALATION SCH (07:36)
[2018-04-02] MEDS: IPRATROPIUM-ALBUTEROL 3 ML NEB INHALATION SCH ×4 (07:36→20:53)
[2018-04-02 07:40] LABS: Glucose,Whole Blood 61 mg/dL (75-99)
[2018-04-02 07:53] LABS: Glucose,Whole Blood 96 mg/dL (75-99)
[2018-04-02] MEDS: AMOXIC-POT CLAV 875-125MG 1 EACH TAB PO SCH ×2 (07:53→20:01)
[2018-04-02] MEDS: METOPROLOL TARTRATE 12.5 MG TAB PO SCH ×2 (07:53→20:01)
[2018-04-02] MEDS: POTASSIUM CHLORIDE ER 20 MEQ TAB.ER PO SCH ×2 (07:53→20:01)
[2018-04-02] MEDS: ATORVASTATIN 80 MG TAB PO SCH (07:53)
[2018-04-02] MEDS: FUROSEMIDE 10 MG/ML 4 ML VIAL IV SCH ×2 (07:54→20:00)
[2018-04-02] MEDS: ASPIRIN 81 MG PO SCH (07:54)
[2018-04-02] MEDS: GLIMEPIRIDE 2 MG TAB PO SCH (07:59)
[2018-04-02] MEDS ORDERED: predniSONE 20 MG TAB PO SCH (09:00)
[2018-04-02 09:52] LABS: Calcium 8.9 mg/dL (8.4-10.2); Potassium 4.8 mmol/L (3.5-5.1)
[2018-04-02 10:22] VITALS: BMI 37.5
[2018-04-02] MEDS: methylPREDNISolone SOD SUCCI 125 MG/2 ML VIAL IV SCH ×3 (11:20→23:56)
--- NOTE | 2018-04-02 11:22 | CONS ---
CONSULTATION DATE OF SERVICE: 04/02/2018 A 68-year-old male who was just discharged from the hospital. He has been in the hospital now twice in the last 10 days or so. Initially, he came with a significant left-sided pneumonia which resolved very nicely. More recently, he was in with a COPD exacerbation. The patient comes back into the hospital with complaints of increasing shortness of breath. According to his , he could not breathe and he felt like he was drowning. He apparently also complained of gaining some weight. I suspect the patient has a COPD exacerbation with cor pulmonale and right-sided heart failure. I suspect that his problem is lower extremity edema with ascites. I do not think he has got biventricular failure. I do not believe he has left-sided heart failure. The patient is sitting at the bedside. Oxygen in place. He does use oxygen at home at 4 L. The patient has a number of complaints today. No chest pain or chest discomfort. No fever or chills. Not coughing up much in the way of phlegm, although he does have occasional phlegm. He is wheezing quite a bit. No nausea, vomiting or diarrhea. HOME MEDICATIONS: Include sublingual nitroglycerin, Prilosec, Lipitor, Amaryl, Flomax, albuterol updrafts, Brio, insulin, Lasix, and prednisone. He was also discharged on Augmentin the last time and he is on potassium aspirin, and metoprolol. ALLERGIES: Are PREDNISONE, which apparently "make him very angry." PAST MEDICAL HISTORY: Positive for CAD, angina, CHF, COPD, GERD, hyperlipidemia, hypertension, DJD, pneumonia and BPH. He also has a history of sleep apnea syndrome. He apparently does have a CPAP device. SURGICAL HISTORY: Includes back surgery, heart catheterization with stent, joint replacement, heart stent x3, left hand surgery, bilateral knee arthroscopy and some other surgical procedures. SOCIAL HISTORY: Positive for previous heavy tobacco use. Does not smoke currently. No alcohol or illicit drug use. FAMILY HISTORY: Positive for hypertension, hyperlipidemia, and stroke. REVIEW OF SYSTEMS: CONSTITUTIONAL: Shortness of breath. NEUROLOGIC: Negative. HEENT: Negative. CARDIOVASCULAR: Negative. PULMONARY: Shortness of breath, cough, wheezing. GI?: Negative. RHEUMATOLOGIC: Negative. IMMUNOLOGIC: Negative. ENDOCRINOLOGIC: Negative. DERMATOLOGIC: Negative. Current vital signs are reviewed. Temperature 97.6, heart rate 69, respiratory rate 18, blood pressure 143/69, mean 93, 2 L saturation 93%. Appears in no acute distress. HEENT examination is grossly unremarkable. NECK: Supple. Full range of motion. No adenopathy. Cardiovascular examination reveals distant heart sounds. Heart rate in mid 60s. The lung examination reveals diffuse expiratory rhonchi and wheezes. There is a few minimal basilar crackles noted. Breath sounds equal bilaterally but diminished throughout. Abdomen is obese. Bowel sounds are heard. Extremities reveal some mild edema. Skin without rash. Neurologic examination is brief but nonfocal. LABS: Reviewed. His white count is 15.7, hemoglobin 15, hematocrit 47.2, platelet count 189,000. PT, INR normal. PTT is 19.8. Blood gases show post hypercapnic alkalosis. PO2 of 96, pCO2 of 48, pH of 7.54. His bicarb is 40. We figure his baseline PaCO2 is right around 62 mmHg. Sodium 143, potassium 4.8, chloride 97, CO2 of 40, BUN and creatinine were 27 and 1.03, anion gap of 6. The rest of his labs look pretty good. The BNP was only 392. Troponins were negative. Chest x-ray showed nothing acute. CT scan of the chest showed nothing acute. There was no PE. Medications are reviewed and adjusted accordingly. ASSESSMENT: 1. Chronic obstructive pulmonary disease exacerbation complicated by cor pulmonale and right heart failure with secondary pulmonary hypertension and lower extremity edema. 2. Doubt significant left-sided heart failure or biventricular failure. 3. Recent episode of chronic obstructive pulmonary disease exacerbation complicated by left-sided pneumonia, resolved. 4. Morbid obesity with sleep apnea syndrome. 5. Rule out Pickwickian syndrome. 6. Secondary pulmonary hypertension with cor pulmonale. 7. History of coronary artery disease. 8. History of angina. 9. History of congestive heart failure. 10.Gastroesophageal reflux disease. 11.Hyperlipidemia. 12.History of hypertension. 13.Osteoarthritis. 14.Benign prostatic hypertrophy. 15.Transient ischemic attack. PLAN: The patient's medications are adjusted accordingly. We put him on Solu-Medrol, Pulmicort 1 mg, Perforomist 20 mcg, and updrafts. Will continue the oral antibiotic. He should be diuresed. His chest x-ray was normal. The CT angiogram did not show any evidence of fluid overload. His BNP was essentially normal. Additional recommendations and suggestions are forthcoming. Prognosis is guarded. We did order some BiPAP for nighttime use. The settings were 12 and 5 and 40%. MMODL / IJN: [id number] /
[2018-04-02 12:06] LABS: Glucose,Whole Blood 109 mg/dL (75-99)
[2018-04-02 17:08] LABS: Glucose,Whole Blood 208 mg/dL (75-99)
[2018-04-02] MEDS: INSULIN ASPART 100 UNIT/ML 1 ML 10 ML VIAL SQ SCH ×2 (17:38→23:13)
[2018-04-02] MEDS: TAMSULOSIN 0.4 MG CAP.ER.24H PO SCH (20:01)
[2018-04-02] MEDS: MELATONIN 3 MG TABLET PO SCH (20:01)
[2018-04-02] MEDS: PANTOPRAZOLE 40 MG TABLET PO SCH (20:01)
[2018-04-02 20:40] LABS: Glucose,Whole Blood 279 mg/dL (75-99)
[2018-04-02] MEDS: BUDESONIDE 1 MG/2 ML NEBU INHALATION SCH (20:53)
[2018-04-02] MEDS: FORMOTEROL FUMARATE 20 MCG/2 ML NEBU INHALATION SCH (20:53)
[2018-04-02] MEDS: INSULIN DETEMIR 100 UNIT/ML 10 ML VIAL SQ SCH (23:13)
[2018-04-03 01:57] LABS: Glucose,Whole Blood 168 mg/dL (75-99)
[2018-04-03] MEDS: methylPREDNISolone SOD SUCCI 125 MG/2 ML VIAL IV SCH ×2 (05:50→12:14)
[2018-04-03 06:22] LABS: Glucose,Whole Blood 123 mg/dL (75-99)
[2018-04-03 07:26] LABS: Glucose,Whole Blood 125 mg/dL (75-99)
[2018-04-03] MEDS: INSULIN ASPART 100 UNIT/ML 1 ML 10 ML VIAL SQ SCH ×2 (07:28→12:14)
[2018-04-03] MEDS: IPRATROPIUM-ALBUTEROL 3 ML NEB INHALATION SCH ×2 (08:05→11:43)
[2018-04-03] MEDS: FORMOTEROL FUMARATE 20 MCG/2 ML NEBU INHALATION SCH (08:05)
[2018-04-03] MEDS: BUDESONIDE 1 MG/2 ML NEBU INHALATION SCH (08:05)
[2018-04-03] MEDS: ASPIRIN 81 MG PO SCH (08:20)
[2018-04-03] MEDS: ATORVASTATIN 80 MG TAB PO SCH (08:20)
[2018-04-03] MEDS: FUROSEMIDE 10 MG/ML 4 ML VIAL IV SCH (08:20)
[2018-04-03] MEDS: POTASSIUM CHLORIDE ER 20 MEQ TAB.ER PO SCH (08:20)
[2018-04-03] MEDS: AMOXIC-POT CLAV 875-125MG 1 EACH TAB PO SCH (08:21)
[2018-04-03] MEDS: METOPROLOL TARTRATE 12.5 MG TAB PO SCH (08:21)
[2018-04-03] MEDS: GLIMEPIRIDE 2 MG TAB PO SCH (08:22)
[2018-04-03 08:39] LABS: Basophils % (A) 0 %; Eosinophils % (A) 0 %; HCT 45.4 % (39.0-53.0); HGB 14.4 gm/dL (13.0-17.5); Lymphocytes # (A) 0.9 k/uL (1.0-4.8); Lymphocytes % (A) 9 %; MCH 30.7 pg (25.0-35.0); MCHC 31.7 g/dL (31.0-37.0); MCV 96.7 fL (80.0-100.0); Monocytes # (A) 0.2 k/uL (0-1.0); Monocytes % (A) 2 %; Neutrophils # (A) 9.2 k/uL (1.3-7.7); Neutrophils % (A) 88 %; Platelet Count 195 k/uL (150-450); RBC 4.69 m/uL (4.30-5.90); RDW 13.7 % (11.5-15.5); WBC 10.4 k/uL (3.8-10.6)
[2018-04-03 09:21] LABS: Anion Gap 8 mmol/L; Blood Urea Nitrogen 31 mg/dL (9-20); Calcium 9.4 mg/dL (8.4-10.2); Carbon Dioxide 37 mmol/L (22-30); Chloride 95 mmol/L (98-107); Glucose 134 mg/dL (74-99); Potassium 4.6 mmol/L (3.5-5.1); Sodium 140 mmol/L (137-145)
--- NOTE | 2018-04-03 10:41 | P.PN ---
Subjective Progress Note Date: 04/03/18 Principal diagnosis: Chronic obstructive pulmonary disease exacerbation, complicated by cor pulmonale and right heart failure with secondary pulmonary hypertension and lower extremity edema A 68-year-old male patient was admitted to the hospital on 04/01/2018 with complaints of shortness of breath, or extremity edema, and weight gain. Patient was recently hospitalized twice for significant left-sided pneumonia which has resolved on most recent chest x-rays. There has been no fever or chills, occasional cough, with production of small amount of phlegm. On today' s exam patient is improving, less short of breath, did wear the BiPAP last night , patient apparently does have a BiPAP unit at home. Patient has home oxygen, Brio elliptical, and albuterol nebulized treatments. No fever or chills, currently on 4 L per nasal cannula. We treated the patient with Pulmicort and Perforomist, DuoNeb nebulized treatments, IV Solu-Medrol, patient is breathing easier, lung sounds are essentially clear. Patient is stable for discharge home today from pulmonary perspective. Objective - Vital Signs Vital signs: Vital Signs Temp 98.0 F 04/03/18 06:32 Pulse 76 04/03/18 08:29 Resp 16 04/03/18 06:32 BP 126/67 04/03/18 06:32 Pulse Ox 91 L 04/03/18 06:32 Intake & Output 04/02/18 04/03/18 04/03/18 18:59 06:59 18:59 Intake Total 1000 Balance 1000 Weight 108.862 kg 103.5 kg Intake: Oral 1000 Other: # Voids 2 2 # Bowel Movements 0 - Exam GENERAL EXAM: Alert, pleasant, 68-year-old white male on 4 L per nasal cannula , comfortable in no apparent distress. HEAD: Normocephalic/atraumatic. EYES: Normal reaction of pupils, equal size. Conjunctiva pink, sclera white. NOSE: Clear with pink turbinates. THROAT: No erythema or exudates. NECK: No masses, no JVD, no thyroid enlargement, no adenopathy. CHEST: No chest wall deformity. Symmetrical expansion. LUNGS: Equal air entry with clear breath sounds CVS: Regular rate and rhythm, normal S1 and S2, no gallops, no murmurs, no rubs ABDOMEN: Soft, nontender. No hepatosplenomegaly, normal bowel sounds, no guarding or rigidity. EXTREMITIES: No clubbing, no edema, no cyanosis, 2+ pulses and upper and lower extremities. MUSCULOSKELETAL: Muscle strength and tone normal. SPINE: No scoliosis or deformity SKIN: No rashes CENTRAL NERVOUS SYSTEM: Alert and oriented -3. No focal deficits, tone is normal in all 4 extremities. PSYCHIATRIC: Alert and oriented -3. Appropriate affect. Intact judgment and insight. - Labs CBC & Chem 7: 04/03/18 07:58 04/03/18 07:58 Labs: Abnormal Lab Results - Last 24 Hours (Table) 04/02/18 04/02/18 04/02/18 Range/Units 12:04 17:06 20:39 Neutrophils # (1.3-7.7) k/uL Lymphocytes # (1.0-4.8) k/uL Chloride (98-107) mmol/L Carbon Dioxide (22-30) mmol/L BUN (9-20) mg/dL Glucose (74-99) mg/dL POC Glucose (mg/dL) 109 H 208 H 279 H (75-99) mg/dL 04/03/18 04/03/18 04/03/18 Range/Units 01:56 06:20 07:10 Neutrophils # (1.3-7.7) k/uL Lymphocytes # (1.0-4.8) k/uL Chloride (98-107) mmol/L Carbon Dioxide (22-30) mmol/L BUN (9-20) mg/dL Glucose (74-99) mg/dL POC Glucose (mg/dL) 168 H 123 H 125 H (75-99) mg/dL 04/03/18 04/03/18 Range/Units 07:58 07:58 Neutrophils # 9.2 H (1.3-7.7) k/uL Lymphocytes # 0.9 L (1.0-4.8) k/uL Chloride 95 L (98-107) mmol/L Carbon Dioxide 37 H (22-30) mmol/L BUN 31 H (9-20) mg/dL Glucose 134 H (74-99) mg/dL POC Glucose (mg/dL) (75-99) mg/dL Assessment and Plan Plan: Assessment: #1. Acute exacerbation of chronic obstructive pulmonary disease complicated by cor pulmonale and right-sided heart failure with secondary pulmonary hypertension and lower extremity edema #2. Doubt significant left-sided heart failure or biventricular failure #3. Recent episode of chronic obstructive pulmonary disease exacerbation complicated by left-sided pneumonia, resolved #4. Obesity with sleep apnea syndrome #5. Rule out pickwickian syndrome #6. Secondary pulmonary hypertension with cor pulmonale #7. History of coronary artery disease #8. History of angina #9. History of congestive heart failure #10. GERD, hyperlipidemia, hypertension, osteoarthritis, benign prostatic hypertrophy, transient ischemic attack Plan: Patient is stable, breathing easier, lung sounds are essentially clear on today' s exam, and his home oxygen, he has a BiPAP machine at home. Patient can be discharged home from pulmonary perspective, on prednisone taper, and his maintenance Breo-Ellipta and his nebulized treatments. Follow-up with Dr. Chang in the office in one week I performed a history & physical examination of the patient and discussed their management with my nurse practitioner, Skylar Mckoy. I reviewed the nurse practitioner's note and agree with the documented findings and plan of care. Lung sounds are positive for clear breath sounds The findings and the impression was discussed with the patient. I attest to the documentation by the nurse practitioner. Time with Patient: Less than 30
[2018-04-03 11:32] LABS: Glucose,Whole Blood 144 mg/dL (75-99)
[2018-04-03] MEDS ORDERED: FUROSEMIDE 10 MG/ML 4 ML VIAL IV STA (12:30)
[2018-04-03 14:44] VITALS: BP 129/68; PULSE 78; RESP 18; TEMP 97.7
--- NOTE | 2018-04-03 20:10 | P.PN ---
Subjective Progress Note Date: 04/02/18 Progress note being dictated for Dr. Pizarro Interval history:68-year-old male was recently discharged from the hospital actually yesterday after he was treated for COPD left lower lobe pneumonia and CHF exacerbation chronic diastolic dysfunction. Patient came back again with the increasing pedal edema weight gain and shadows of breath. Chest x-ray did not show any increased pulmonary edema BNP is only 300. Patient also has bilateral leg swelling which is bit worse compared to yesterday. Patient does not have any significant wheezing does have diffuse crackles on exam. Patient will be resumed on Augmentin I'll obtain ABG and CAT scan of the chest rule out pulmonary embolism as well as to see the status of his pneumonia. Etiology of his shots of breath is not clear at this time patient will be started on Lasix in the IV form will get the opinion of the pulmonology. Patient denied any fever chills nausea vomiting. 04/02/2018 maintained on nebulized bronchodilators, steroids, antibiotics. Minimal nonproductive cough. Continues to have some wheezing. Denies chest pain, palpitations or increased in shortness of breath. Good diet intake, no nausea vomiting or diarrhea. Afebrile. Contractural alkalosis. CT nonacute, 1 cm left bronchial lymph node, 2 small bronchial lymph nodes on the right side , mild scarring, bibasilar subsegmental atelectasis. Objective - Vital Signs Vital signs: Vital Signs Temp 97.6 F 04/02/18 14:30 Pulse 70 04/02/18 21:19 Resp 18 04/02/18 21:27 BP 153/75 04/02/18 20:18 Pulse Ox 94 L 04/02/18 20:18 Intake & Output 04/02/18 04/02/18 04/03/18 06:59 18:59 06:59 Intake Total 1000 Balance 1000 Weight 108.862 kg Intake: Oral 1000 Other: # Voids 2 2 1 # Bowel Movements 0 0 - Exam GENERAL: The patient is alert and oriented x3, not in any acute distress. HEENT: No JVD. Pupils are round and equally reacting to light. EOMI. No scleral icterus. No conjunctival pallor. Normocephalic, atraumatic. CARDIOVASCULAR: S1 and S2 present. No murmurs, rubs, or gallops. PULMONARY: diffuse bilateral crackles on exam. Diffuse expiratory wheezing. ABDOMEN: Soft, nontender, nondistended, normoactive bowel sounds. No palpable organomegaly. MUSCULOSKELETAL: No joint swelling or deformity. EXTREMITIES: No cyanosis, clubbing. Mild pedal edema. NEUROLOGICAL: Gross neurological examination did not reveal any focal deficits. SKIN: No rashes. - Labs CBC & Chem 7: 04/03/18 07:58 04/03/18 07:58 Labs: Abnormal Lab Results - Last 24 Hours (Table) 04/02/18 04/02/18 04/02/18 Range/Units 07:18 07:34 09:02 Chloride 97 L (98-107) mmol/L Carbon Dioxide 40 H (22-30) mmol/L BUN 27 H (9-20) mg/dL Glucose 120 H (74-99) mg/dL POC Glucose (mg/dL) 48 L 61 L (75-99) mg/dL 04/02/18 04/02/18 04/02/18 Range/Units 12:04 17:06 20:39 Chloride (98-107) mmol/L Carbon Dioxide (22-30) mmol/L BUN (9-20) mg/dL Glucose (74-99) mg/dL POC Glucose (mg/dL) 109 H 208 H 279 H (75-99) mg/dL Assessment and Plan Assessment: shortness of breath etiology unclear, possibly multifactorial - no evidence of exacerbation of CHF;normal BNP, chest x-ray did not show any pulmonary edema, no elevated JVD. -History of COPD with chronic hypercapnic respiratory failure patient, wears 4 L nasal cannula at home. -carotid artery disease with previous stenting -Type 2 diabetes mellitus -Hypertension -Hyperlipidemia -Nonsustained VT during his last hospitalization for which no intervention at this time. -Obesity possibly of sleep apnea. -1 cm left bronchial lymph node, 2 small bronchial lymph nodes on the right side , per CT Plan: Continue on current medication regime ,monitoring and symptomatic treatment. Continue on IV Lasix, antibiotics, nebulized bronchodilators. Increase ambulation as tolerated. Wheezy this afternoon, monitor overnight with discharge planning in progress for tomorrow. The impression and plan of care has been dictated as directed. : I performed a history and examination of this patient, discussed the same with the dictator. I agree with the dictator's note ,documented as a scribe. Any additional findings or plans will be noted.
--- NOTE | 2018-04-03 20:21 | P.DS ---
Providers Date of admission: 04/01/18 16:19 Expected date of discharge: 04/03/18 Attending physician: Dax Pizarro Consults: 04/01/18 16:58 Consult Physician Routine Consulting Provider: Shanna Langford Consult Reason/Comments: sob, etiology unclear Do you want consulting provider notified?: Yes Primary care physician: Rk Mendoza [facility] Hospital Course: Final diagnoses: shortness of breath etiology unclear, possibly multifactorial in a patient with known severe COPD, obesity, possibly cor pulmonale- no evidence of exacerbation of CHF;normal BNP, chest x-ray did not show any pulmonary edema, no elevated JVD. -History of COPD with chronic hypercapnic respiratory failure patient, wears 4 L nasal cannula at home. -carotid artery disease with previous stenting -Type 2 diabetes mellitus -Hypertension -Hyperlipidemia -Nonsustained VT during his last hospitalization for which no intervention at this time. -Obesity possibly of sleep apnea. -1 cm left bronchial lymph node, 2 small bronchial lymph nodes on the right side , per CT Hospital course: This is a 68-year-old male was recently discharged from the hospital actually yesterday after he was treated for COPD left lower lobe pneumonia and CHF exacerbation chronic diastolic dysfunction. Patient came back again with the increasing pedal edema weight gain and shadows of breath. Chest x-ray did not show any increased pulmonary edema BNP is only 300. Patient also has bilateral leg swelling which is bit worse compared to yesterday. Patient does not have any significant wheezing does have diffuse crackles on exam. Patient will be resumed on Augmentin I'll obtain ABG and CAT scan of the chest rule out pulmonary embolism as well as to see the status of his pneumonia. Etiology of his shots of breath is not clear at this time patient will be started on Lasix in the IV form will get the opinion of the pulmonology. Patient denied any fever chills nausea vomiting. 04/02/2018 maintained on nebulized bronchodilators, steroids, antibiotics. Minimal nonproductive cough. Continues to have some wheezing. Denies chest pain, palpitations or increased in shortness of breath. Good diet intake, no nausea vomiting or diarrhea. Afebrile. Contractural alkalosis. CT nonacute, 1 cm left bronchial lymph node, 2 small bronchial lymph nodes on the right side , mild scarring, bibasilar subsegmental atelectasis. 04/03/18 ambulating in hines, tolerated exertion well. We'll BiPAP last night, breathing improved breathing improved, Wheezing has subsided. Cleared by pulmonary for discharge. Patient is being discharged home in a stable condition with guarded prognosis. Exam GENERAL: The patient is alert and oriented x3, not in any acute distress. CARDIOVASCULAR: S1 and S2 present. No murmurs, rubs, or gallops. PULMONARY: Essentially clear, bilateral bases diminished ABDOMEN: Soft, nontender, nondistended, normoactive bowel sounds. No palpable organomegaly. EXTREMITIES: No cyanosis, clubbing. Mild pedal edema. NEUROLOGICAL: Gross neurological examination did not reveal any focal deficits. The impression and plan of care has been dictated as directed. : I performed a history and examination of this patient, discussed the same with the dictator. I agree with the dictator's note ,documented as a scribe. Any additional findings or plans will be noted. Time taken: 35 minutes Patient Condition at Discharge: Stable Plan - Discharge Summary Discharge Rx Participant: No New Discharge Prescriptions: New Furosemide [Lasix] 60 mg PO BID #180 tab Continue Omeprazole [PriLOSEC] 20 mg PO HS Nitroglycerin Sl Tabs [Nitrostat] 0.4 mg SUBLINGUAL Q5M PRN PRN Reason: Chest Pain Atorvastatin [Lipitor] 80 mg PO DAILY Glimepiride [Amaryl] 2 mg PO AC-BRKFST Tamsulosin HCl [Flomax] 0.4 mg PO HS Albuterol Nebulized [Ventolin Nebulized] 2.5 mg INHALATION RT-Q6H Fluticasone/Vilanterol [Breo Ellipta 100-25 Mcg Inhaler] 1 puff INHALATION RT -DAILY Potassium Chloride ER [K-Dur 20] 20 meq PO BID #0 Insulin Glargine [Lantus] 30 unit SQ HS Aspirin 81 mg PO DAILY chew Metoprolol Tartrate [Lopressor] 12.5 mg PO BID #60 tab Amoxic-Pot Clav 875-125Mg [Augmentin 875-125] 1 tab PO Q12HR #10 tablet predniSONE See Taper PO DIRECTED Discharge Medication List Nitroglycerin Sl Tabs [Nitrostat] 0.4 mg SUBLINGUAL Q5M PRN 03/09/14 [History] Omeprazole [PriLOSEC] 20 mg PO HS 03/09/14 [History] Atorvastatin [Lipitor] 80 mg PO DAILY 05/08/15 [History] Glimepiride [Amaryl] 2 mg PO AC-BRKFST 10/09/16 [History] Tamsulosin HCl [Flomax] 0.4 mg PO HS 10/09/16 [History] Albuterol Nebulized [Ventolin Nebulized] 2.5 mg INHALATION RT-Q6H 03/12/18 [ History] Fluticasone/Vilanterol [Breo Ellipta 100-25 Mcg Inhaler] 1 puff INHALATION RT- DAILY 03/12/18 [History] Potassium Chloride ER [K-Dur 20] 20 meq PO BID #0 03/15/18 [Rx] Insulin Glargine [Lantus] 30 unit SQ HS 03/25/18 [History] Amoxic-Pot Clav 875-125Mg [Augmentin 875-125] 1 tab PO Q12HR #10 tablet [Rx] Aspirin 81 mg PO DAILY chew 03/31/18 [Rx] Metoprolol Tartrate [Lopressor] 12.5 mg PO BID #60 tab 03/31/18 [Rx] predniSONE See Taper PO DIRECTED 04/01/18 [History] Furosemide [Lasix] 60 mg PO BID #180 tab 04/02/18 [Rx] Follow up Appointment(s)/Referral(s): Rk Keene III, MD [Primary Care Provider] - 3 Days [facility], [NON-STAFF] - Rahul Chang MD [STAFF PHYSICIAN] - 1 Week Gaurang Frazier MD [STAFF PHYSICIAN] - 1 Week Patient Instructions/Handouts: Heart Failure (DC) Activity/Diet/Wound Care/Special Instructions: Activity as tolerated Resume regular diet Bipap, NC 4l NC O2 Discharge Disposition: HOME WITH HOME HEALTH SERVICES
--- NOTE | 2018-04-07 08:29 | CDI ---
Date: 04/07/18 CDS/Automatic Oven Operator Name: Belen Du Phone: If any questions, call Annie Del Rosario Dormitory Counselor at [phone] Patient Name: Rogers Morley Admit Date: 04/01/18 Discharge Date: 04/03/18 ATTENTION: The [facility] Coding Staff appreciate your assistance in clarifying documentation. Please respond to the clarification below the line at the bottom and electronically sign. The [facility] Coding staff will review the response and follow-up if needed. Please note: Queries are made part of the Legal Health Record. If you have any questions, please contact the Dormitory Counselor. Dear Dr. Pizarro, Please provide clarification as to the primary diagnosis for this patient. Discharge Summary states unknown etiology for shortness of breath. The 04/03/18 progress note states COPD exacerbation complicated by cor pulmonale and right heart failure with secondary pulmonary hypertension and lower extremity edema. Please clarify. In or christine to be compliant with the coding guidelines, we cannot code diagnoses that are uncertain such has possibly, looks like, could be, etc. Thank you for your kind consideration. COPD MTDD
== END 2018-04-03 15:58 | disposition home health service (06) ==
LOC: EC 12:46 → 4MS4W 16:19
PROVIDERS: ADMIT Internal Medicine; ATTEND Internal Medicine
DX: J44.1 Chronic obstructive pulmonary disease with (acute) exacerbation (principal); I27.81 Cor pulmonale (chronic); J96.12 Chronic respiratory failure with hypercapnia; Z99.81 Dependence on supplemental oxygen; I11.0 Hypertensive heart disease with heart failure; I50.810 Right heart failure, unspecified; I27.29 Other secondary pulmonary hypertension; E87.3 Alkalosis; J98.11 Atelectasis; M79.89 Other specified soft tissue disorders; E66.01 Morbid (severe) obesity due to excess calories; R63.5 Abnormal weight gain; Z68.35 Body mass index [BMI] 35.0-35.9, adult; I25.119 Atherosclerotic heart disease of native coronary artery with unspecified angina pectoris; I50.32 Chronic diastolic (congestive) heart failure; Z87.01 Personal history of pneumonia (recurrent); Z86.73 Personal history of transient ischemic attack (TIA), and cerebral infarction without residual deficits; Z82.3 Family history of stroke; G47.30 Sleep apnea, unspecified; Z99.89 Dependence on other enabling machines and devices; Z95.5 Presence of coronary angioplasty implant and graft; E11.9 Type 2 diabetes mellitus without complications; Z79.4 Long term (current) use of insulin; E78.5 Hyperlipidemia, unspecified; K21.9 Gastro-esophageal reflux disease without esophagitis; M19.90 Unspecified osteoarthritis, unspecified site; N40.0 Benign prostatic hyperplasia without lower urinary tract symptoms; Z87.891 Personal history of nicotine dependence; Z79.899 Other long term (current) drug therapy; Z79.2 Long term (current) use of antibiotics; Z79.51 Long term (current) use of inhaled steroids; Z79.82 Long term (current) use of aspirin; Z88.8 Allergy status to other drugs, medicaments and biological substances
CPT/HCPCS: 96374 ×2; 99285 ×2; 96376 ×3; 96375; 36415; 94660; 94640 ×6; 36600; 93005; 97161; 97165; 83880; 80053; 80048 ×2; 82550; 82553; 82805; 84484; 85025 ×2; 85610; 85730; 71046; 71275; G0378 ×3; J1940 ×3; J2930 ×2; J7512; Q9967; 94760

== ENCOUNTER 2019-02-27 16:33 | Emergency (ER) | payer MEDICARE ==
[2019-02-27 16:42] VITALS: BP 153/78; PULSE 88; RESP 18; TEMP 97.9
[2019-02-27] MEDS ORDERED: ceFAZolin 1,000 MG VIAL (IM USE) IM STA (17:48)
[2019-02-27] MEDS ORDERED: LIDOCAINE 1% INJ 10MG/ML (20 ML MDV) SQ STA (17:48)
--- NOTE | 2019-02-27 18:14 | ED ---
General Adult HPI - General Chief complaint: Wound/Laceration Stated complaint: Thumb injury/amputation Time Seen by Provider: 02/27/19 17:38 Source: patient, RN notes reviewed, old records reviewed Mode of arrival: ambulatory Limitations: no limitations - History of Present Illness Initial comments: 69-year-old male patient presents to ED for chief complaint of laceration to his left thumb. Patient reports this was done with a table saw. Denies any other injury. Reports that tetanus is up-to-date. Denies any other complaints. Systemic: Pt denies fatigue, fever/chills, rash. Pt denies weakness, night sweats, weight loss. Neuro: Pt denies headache, visual disturbances, syncope or pre-syncope. HEENT: Pt denies ocular discharge or irritation, otalgia, rhinorrhea, pharyngitis or notable lymphadenopathy. Cardiopulmonary: Pt denies chest pain, SOB, heart palpitations, dyspnea on exertion. Abdominal/GI: Pt denies abdominal pain, n/v/d. : Pt denies dysuria, burning w/ urination, frequency/urgency. Denies new onset urinary or bowel incontinence. MSK: Pt denies myalgia, loss of strength or function in extremities. Neuro: Pt denies new onset weakness, paresthesias. - Related Data Home Medications Medication Instructions Recorded Confirmed Nitroglycerin Sl Tabs [Nitrostat] 0.4 mg SUBLINGUAL Q5M PRN 03/09/14 04/01/18 Omeprazole [PriLOSEC] 20 mg PO HS 03/09/14 04/01/18 Atorvastatin [Lipitor] 80 mg PO DAILY 05/08/15 04/01/18 Glimepiride [Amaryl] 2 mg PO AC-BRKFST 10/09/16 04/01/18 Tamsulosin HCl [Flomax] 0.4 mg PO HS 10/09/16 04/01/18 Albuterol Nebulized [Ventolin 2.5 mg INHALATION RT-Q6H 03/12/18 04/01/18 Nebulized] Fluticasone/Vilanterol [Breo 1 puff INHALATION RT-DAILY 03/12/18 04/01/18 Ellipta 100-25 Mcg Inhaler] Insulin Glargine [Lantus] 30 unit SQ HS 03/25/18 04/01/18 predniSONE See Taper PO DIRECTED 04/01/18 04/01/18 Previous Rx's Medication Instructions Recorded Potassium Chloride ER [K-Dur 20] 20 meq PO BID #0 03/15/18 Amoxic-Pot Clav 875-125Mg 1 tab PO Q12HR #10 tablet 03/31/18 [Augmentin 875-125] Aspirin 81 mg PO DAILY chew 03/31/18 Metoprolol Tartrate [Lopressor] 12.5 mg PO BID #60 tab 03/31/18 Furosemide [Lasix] 60 mg PO BID #180 tab 04/02/18 Cephalexin [Keflex] 500 mg PO Q6HR 10 Days #40 cap 02/27/19 Allergies Allergy/AdvReac Type Severity Reaction Status Date / Time prednisone AdvReac "MADE ME Verified 04/01/18 13:32 VERY ANGRY" Review of Systems ROS Statement: Those systems with pertinent positive or pertinent negative responses have been documented in the HPI. ROS Other: All systems not noted in ROS Statement are negative. Past Medical History Past Medical History: Coronary Artery Disease (CAD), Chest Pain / Angina, Heart Failure, COPD, GERD/Reflux, Hyperlipidemia, Hypertension, Osteoarthritis (OA), Pneumonia, Prostate Disorder Additional Past Medical History / Comment(s): 03/12/18 pt wants a flu vaccine before discharge if ok with other hx includes: MINI STROKES - MRI DONE AT [facility] SHOWS SMALL VESSEL DX, pt stated diet control dm-no meds no bs checks. SLEEP APNEA/cpap, History of Any Multi-Drug Resistant Organisms: None Reported Past Surgical History: Back Surgery, Heart Catheterization With Stent, Joint Replacement, Orthopedic Surgery Additional Past Surgical History / Comment(s): TOTAL LEFT KNEE, FELIPE KNEE ARTHROSCOPY, rt shoulder replacement, HEART STENT X3,lt hand sx Past Anesthesia/Blood Transfusion Reactions: No Reported Reaction Additional Past Anesthesia/Blood Transfusion Reaction / Comment(s): STATES "HAD A HARD TIME WITH BREATHING POST OP" Date of Last Stent Placement:: 2009 Past Psychological History: No Psychological Hx Reported Smoking Status: Former smoker - Past Family History Father Family Medical History: CVA/TIA, Hyperlipidemia, Hypertension Mother Family Medical History: Hypertension General Exam - General Exam Comments Initial Comments: Constitutional: NAD, AOX3, Pt has pleasant affect. HEENT: NC/AT, trachea midline, neck supple, no lymphadenopathy. Posterior pharynx non erythematous, without exudates. External ears appear normal, without discharge. Mucous membranes moist. Eyes PERRLA, EOM intact. There is no scleral icterus. No pallor noted. Cardiopulmonary: RRR, no murmurs, rubs or gallops, no JVD noted. Lungs CTAB in anterior and posterior kimball. No peripheral edema. Abdominal exam: Abdomen soft and non-distended. Abdomen non-tender to palpation in all 4 quadrants. Bowel sounds active in LLQ. No hepatosplenomegaly. No ecchymosis Neuro: CN II-XII grossly intact. No nuchal rigidity. No raccon eyes, no mckinley sign, no hemotympanum. No cervical spinal tenderness. MSK: 4 cm stellate laceration pad of thumb irregular vigorously irrigated with 1 L normal saline. Approximated with 5 sutures. Capillary refill less than 2 seconds. Patient placed in straight finger splint. Full active ROM of digit. Sensation intact. No posterior calf tenderness bilaterally, homans sign negative bilaterally. Posterior tibialis and radial pulse +2 bilaterally. Sensation intact in upper and lower extremities. Full active ROM in upper and lower extremities, 5/5 stregnth. Limitations: no limitations Course Vital Signs 02/27/19 16:39 Temperature 97.9 F Pulse Rate 88 Respiratory 18 Rate Blood Pressure 153/78 O2 Sat by Pulse 95 Oximetry Medical Decision Making - Medical Decision Making 69-year-old male patient presents to ED for chief complaint of laceration to his left thumb. Patient reports this was done with a table saw. Denies any other injury. Reports that tetanus is up-to-date. Denies any other complaints. Patient vital signs stable, afebrile. Physical exam displayed: 4 cm stellate laceration pad of thumb irregular vigorously irrigated with 1 L normal saline. Approximated with 5 sutures. Capillary refill less than 2 seconds. Patient placed in straight finger splint. Full active ROM of digit. Sensation intact. Playful and hand displayed laceration, open fracture. Patient placed in a finger splint. Administered Ancef. Patient tetanus is up-to-date. Wound dressed. She'll be discharged with Keflex and close outpatient follow-up with orthopedic surgeon tomorrow. Return to ER if condition worsens in any way. Case discussed with Dr. Florian. Disposition Clinical Impression: Laceration, Finger fracture Disposition: HOME SELF-CARE Condition: Stable Instructions (If sedation given, give patient instructions): Laceration (ED), Finger Fracture (ED) Additional Instructions: Follow-up for orthopedic consult tomorrow. Continue to wear finger splint. Return to ED if condition worsens in anyway. Take antibiotics as directed. Please return for suture removal: Hand: 7-10 days Face: 5 days Chest/abdomen: 12-14 days Extremities: 7-10 days Scalp: 7 days Eyebrow: 5-7 days Foot/sole: 12-14 days Please monitor for signs and symptoms of infection including: redness, warmth, drainage, discharge. Please return to ED if these signs or symptoms occur, new signs or symptoms develop or if condition worsens in anyway. Prescriptions: Cephalexin [Keflex] 500 mg PO Q6HR 10 Days #40 cap Is patient prescribed a controlled substance at d/c from ED?: No Referrals: Rk Keene III, MD [Primary Care Provider] - 1-2 days Yong Blake DO [Doctor of Osteopathic Medicine] - 1-2 days
--- NOTE | 2019-02-27 18:49 | XR ---
EXAMINATION TYPE: XR hand complete LT DATE OF EXAM: 02/27/2019 CLINICAL HISTORY: Laceration TECHNIQUE: Frontal, lateral and oblique images of the left hand are obtained. COMPARISON: None. FINDINGS/IMPRESSION: Transverse lucency through the first digit distal phalanx compatible with fracture; adjacent soft tis roberth deformity/laceration. The distal phalangeal tuft is from the proximal phalanx by 4 mm. No radiopaque foreign body. 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 Scattered degenerative changes throughout the hand, mild-moderate at the first carpometacarpal joint and distal interphalangeal joints.
[2019-02-27] MEDS ORDERED: CEPHALEXIN 500MG STARTER PACK 4 CAP BTL PO STA (19:40)
[2019-02-27] MEDS ORDERED: ACET/COD 300 MG/30 MG STARTER PACK 6 TAB BTL PO STA (19:40)
== END 2019-02-27 19:52 | disposition home or self-care (01) ==
LOC: EC 16:33
DX: S62.522A Displaced fracture of distal phalanx of left thumb, initial encounter for closed fracture (principal); S61.012A Laceration without foreign body of left thumb without damage to nail, initial encounter; I25.119 Atherosclerotic heart disease of native coronary artery with unspecified angina pectoris; I11.0 Hypertensive heart disease with heart failure; I50.9 Heart failure, unspecified; J44.9 Chronic obstructive pulmonary disease, unspecified; K21.9 Gastro-esophageal reflux disease without esophagitis; E78.5 Hyperlipidemia, unspecified; M19.90 Unspecified osteoarthritis, unspecified site; G47.30 Sleep apnea, unspecified; E11.9 Type 2 diabetes mellitus without complications; Z79.4 Long term (current) use of insulin; Z79.51 Long term (current) use of inhaled steroids; Z79.899 Other long term (current) drug therapy; Z88.8 Allergy status to other drugs, medicaments and biological substances; Z99.89 Dependence on other enabling machines and devices; Z95.5 Presence of coronary angioplasty implant and graft; Z96.652 Presence of left artificial knee joint; Z96.611 Presence of right artificial shoulder joint; Z87.891 Personal history of nicotine dependence; W26.8XXA Contact with other sharp object(s), not elsewhere classified, initial encounter; Y93.89 Activity, other specified
CPT/HCPCS: 73130; 99283; 12002; J0690; J2001; 12001

== ENCOUNTER 2019-05-05 07:46 | Day surgery (SDC) | payer MEDICARE ==
[2019-05-04 08:32] VITALS: BMI 36.0
[~2019-05-05 07:46] MED LIST: LACTATED RINGERS 1,000 ML IV SCH; LIDOCAINE 1% 20 ML VIAL (10MG/ML) FOR IV START INTRADERMA PRN
[2019-05-05 08:05] VITALS: TEMP 97.9
[2019-05-05 08:17] LABS: Glucose,Whole Blood 81 mg/dL (75-99)
[2019-05-05] MEDS ORDERED: PROPOFOL 10 MG/ML 20 ML VIAL IV ONE (08:47)
--- NOTE | 2019-05-05 09:12 | P.PCN ---
Date of Procedure: 05/05/19 Procedure(s) Performed: BRIEF HISTORY: Patient is a 69-year-old pleasant white male scheduled for an elective colonoscopy as a part of evaluation of prior history of colon polyps. Last colonoscopy was 5 years ago. PROCEDURE PERFORMED: Colonoscopy with biopsy and snare polypectomy. PREOPERATIVE DIAGNOSIS: History of colon polyps. IV sedation per Anesthesia. PROCEDURE: After informed consent was obtained, the patient, was brought into the endoscopy unit. IV sedation was administered by Anesthesia under continuous monitoring. Digital rectal examination was normal. Initially the Olympus CF-160 flexible video colonoscope was then inserted in the rectum, gradually advanced into the cecum without any difficulty. Careful examination was performed as the scope was gradually being withdrawn. Ileocecal valve and the appendiceal orifice were visualized and appeared normal. Prep was excellent. Mucosa of the cecum, appeared normal. Ascending colon there was a 2 mm sessile polyp removed by cold biopsy. In the hepatic flexure there were 2 polyps measuring 5 mm removed by snare polypectomy. In the descending colon there was another 5 mm polyp removed by snare polypectomy. ascending colon, transverse colon, descending colon, sigmoid colon, and rectum appeared normal. In the rectum there was a 2 mm polyp that was removed by cold biopsy. Retroflexion was performed in the rectum and no lesions were seen. The patient tolerated the procedure well. IMPRESSION: 2 mm sessile ascending colon polyp status post cold biopsy 5 mm 2 hepatic flexure polyp status post polypectomy 5 mm descending colon polyp status post polypectomy 2 mm rectal polyp status post removal by cold biopsy RECOMMENDATIONS: Findings of this examination were discussed with the patient as well as his family. He was advised to follow with the biopsy result. If the biopsy shows an adenoma he can have a repeat colonoscopy in 3 years.
[2019-05-05 09:21] VITALS: RESP 16
[2019-05-05 09:38] VITALS: BP 130/62; PULSE 61
== END 2019-05-05 09:56 | disposition home or self-care (01) ==
LOC: ORWHC2ENDO 07:46
PROVIDERS: ATTEND Internal Medicine Gastroenterology
DX: Z12.11 Encounter for screening for malignant neoplasm of colon (principal); K63.5 Polyp of colon; K62.1 Rectal polyp; Z86.010 Personal history of colon polyps; E11.9 Type 2 diabetes mellitus without complications; I25.10 Atherosclerotic heart disease of native coronary artery without angina pectoris; I11.0 Hypertensive heart disease with heart failure; I50.9 Heart failure, unspecified; E78.5 Hyperlipidemia, unspecified; J44.9 Chronic obstructive pulmonary disease, unspecified; K21.9 Gastro-esophageal reflux disease without esophagitis; Z88.8 Allergy status to other drugs, medicaments and biological substances; Z79.899 Other long term (current) drug therapy; Z79.4 Long term (current) use of insulin; Z79.82 Long term (current) use of aspirin; Z95.5 Presence of coronary angioplasty implant and graft; Z96.659 Presence of unspecified artificial knee joint; Z96.619 Presence of unspecified artificial shoulder joint
CPT/HCPCS: 88305; 45380; 45385; J2704

== ENCOUNTER 2019-07-05 17:04 | Emergency (ER) | payer MEDICARE ==
[2019-07-05] MEDS ORDERED: ALBUTEROL NEBULIZED 2.5 MG/3 ML INHALATION STA (18:18)
--- NOTE | 2019-07-05 18:18 | ED ---
General Adult HPI - General Chief complaint: Fever Stated complaint: fever, low o2 Time Seen by Provider: 07/05/19 17:35 Source: patient, family, RN notes reviewed, old records reviewed Mode of arrival: ambulatory Limitations: no limitations - History of Present Illness Initial comments: 69-year-old male patient seated in a past history including COPD, coronary artery disease status post 3 stents, congestive heart failure hypertension hyperlipidemia is ED for evaluation. Patient reports that since last Friday he has been experiencing waxing and waning fever, waxing and waning cough, generalized myalgias, mild shortness of breath. Patient has recently been seen by both his molding associate as well as his master baker. Approximately 2 exam patient poorly had a mild CHF exacerbation that has since resolved. Patient was seen by his master baker. The current symptoms and was started on Levaquin. Has been on this for approximately 4 days. Patient states that he is not improving. Denies any focal area of pain. Denies any chest pain. She rep ortedly had a fever of 101F earlier today. This reportedly resolved without any sort of antipyretic. Patient also reports that he monitors his pulse oxygenation home. He states that when he is healthy he is between 94 and 95. He states that at home he has been as low as 87%. Systemic: Pt denies fatigue, fever/chills, rash. Pt denies weakness, night sweats, weight loss. Neuro: Pt denies headache, visual disturbances, syncope or pre-syncope. HEENT: Pt denies ocular discharge or irritation, otalgia, rhinorrhea, pharyngitis or notable lymphadenopathy. Cardiopulmonary: Pt denies chest pain, heart palpitations, dyspnea on exertion. Abdominal/GI: Pt denies abdominal pain, n/v/d. : Pt denies dysuria, burning w/ urination, frequency/urgency. Denies new onset urinary or bowel incontinence. MSK: Pt denies myalgia, loss of strength or function in extremities. Neuro: Pt denies new onset weakness, paresthesias. - Related Data Home Medications Medication Instructions Recorded Confirmed Nitroglycerin Sl Tabs [Nitrostat] 0.4 mg SUBLINGUAL Q5M PRN 03/09/14 05/04/19 Omeprazole [PriLOSEC] 20 mg PO HS 03/09/14 05/04/19 Atorvastatin [Lipitor] 80 mg PO DAILY 05/08/15 05/04/19 Glimepiride [Amaryl] 2 mg PO AC-BRKFST 10/09/16 05/04/19 Tamsulosin HCl [Flomax] 0.4 mg PO HS 10/09/16 05/04/19 Albuterol Nebulized [Ventolin 2.5 mg INHALATION RT-Q6H 03/12/18 05/04/19 Nebulized] Fluticasone/Vilanterol [Breo 1 puff INHALATION RT-DAILY 03/12/18 05/04/19 Ellipta 100-25 Mcg Inhaler] Insulin Glargine [Lantus] 30 unit SQ HS 03/25/18 05/04/19 methylPREDNISolone [Medrol] 4 mg PO DAILY 05/04/19 05/04/19 Previous Rx's Medication Instructions Recorded Potassium Chloride ER [K-Dur 20] 20 meq PO BID #0 03/15/18 Aspirin 81 mg PO DAILY chew 03/31/18 Metoprolol Tartrate [Lopressor] 12.5 mg PO BID #60 tab 03/31/18 Furosemide [Lasix] 60 mg PO BID #180 tab 04/02/18 predniSONE [Deltasone] 20 mg PO BID 3 Days #6 tab 07/05/19 Allergies Allergy/AdvReac Type Severity Reaction Status Date / Time prednisone AdvReac "MADE ME Verified 05/05/19 08:01 VERY ANGRY" Review of Systems ROS Statement: Those systems with pertinent positive or pertinent negative responses have been documented in the HPI. ROS Other: All systems not noted in ROS Statement are negative. Past Medical History Past Medical History: Coronary Artery Disease (CAD), Chest Pain / Angina, Heart Failure, COPD, Dementia, GERD/Reflux, Hyperlipidemia, Hypertension, Osteoarth ritis (OA), Prostate Disorder, Sleep Apnea/CPAP/BIPAP Additional Past Medical History / Comment(s): MINI STROKES - MRI DONE AT [facility] SHOWS SMALL VESSEL DX, SLEEP APNEA/cpap, gout History of Any Multi-Drug Resistant Organisms: None Reported Past Surgical History: Back Surgery, Heart Catheterization With Stent, Joint Replacement, Orthopedic Surgery Additional Past Surgical History / Comment(s): TOTAL LEFT KNEE, FELIPE KNEE ARTHROSCOPY, rt shoulder replacement, HEART STENT X3,lt hand sx, colonoscopy Past Anesthesia/Blood Transfusion Reactions: No Reported Reaction Additional Past Anesthesia/Blood Transfusion Reaction / Comment(s): STATES "HAD A HARD TIME WITH BREATHING POST OP" Date of Last Stent Placement:: 2009 Past Psychological History: No Psychological Hx Reported Smoking Status: Former smoker - Past Family History Father Family Medical History: CVA/TIA, Hyperlipidemia, Hypertension Mother Family Medical History: Hypertension General Exam - General Exam Comments Initial Comments: Constitutional: NAD, AOX3, Pt has pleasant affect. HEENT: NC/AT, trachea midline, neck supple, no lymphadenopathy. Posterior pharynx non erythematous, without exudates. External ears appear normal, without discharge. Mucous membranes moist. Eyes PERRLA, EOM intact. There is no scleral icterus. No pallor noted. Cardiopulmonary: RRR, no murmurs, rubs or gallops, no JVD noted. Lungs CTAB in anterior and posterior kimball. No peripheral edema. Abdominal exam: Abdomen soft and non-distended. Abdomen non-tender to palpation in all 4 quadrants. Bowel sounds active in LLQ. No hepatosplenomegaly. No ecchymosis Neuro: CN II-XII grossly intact. No nuchal rigidity. No raccon eyes, no mckinley sign, no hemotympanum. No cervical spinal tenderness. MSK: No posterior calf tenderness bilaterally, homans sign negative bilaterally. Posterior tibialis and radial pulse +2 bilaterally. Sensation intact in upper and lower extremities. Full active ROM in upper and lower extremities, 5/5 stregnth. Limitations: no limitations Course Vital Signs 07/05/19 07/05/19 07/05/19 17:10 19:16 19:30 Temperature 98.0 F 98.7 F Pulse Rate 93 75 Respiratory 18 18 Rate Blood Pressure 147/71 116/56 O2 Sat by Pulse 92 L 94 L 94 L Oximetry 07/05/19 20:00 Temperature 98.2 F Pulse Rate 75 Respiratory 20 Rate Blood Pressure 117/66 O2 Sat by Pulse 94 L Oximetry Medical Decision Making - Medical Decision Making 69-year-old male patient seated in a past history including COPD, coronary artery disease status post 3 stents, congestive heart failure hypertension hyperlipidemia is ED for evaluation. Patient reports that since last Friday he has been experiencing waxing and waning fever, waxing and waning cough, generalized myalgias, mild shortness of breath. Patient has recently been seen by both his molding associate as well as his master baker. Approximately 2 exam patient poorly had a mild CHF exacerbation that has since resolved. Patient was seen by his master baker. The current symptoms and was started on Levaquin. Has been on this for approximately 4 days. Patient states that he is not improving. Denies any focal area of pain. Denies any chest pain. She reportedly had a fever of 101F earlier today. This reportedly resolved without any sort of antipyretic. Patient also reports that he monitors his pulse oxygenation home. He states that when he is healthy he is between 94 and 95. He states that at home he has been as low as 87%. Patient vital signs are stable, afebrile. Physical exam demonstrates acute pathology. Laboratory investigations obtained, mild leukocytosis of 14.7. Patient is on chronic steroids. CMP revealed mild hypokalemia 2.9. Mild increased BUN/creatinine. Likely prerenal. Lactic acid elevated at 3.3. Troponin is negative. Coronaviirus and influenza negative. Chest x-ray displayed mild increased interstitium to be in the bases of interstitial pneumonitis or bronchitis. EKG is nonischemic displayed prolonged QT. Patient is currently on Levaquin as there is no evidence of any sort of bacterial pneumonia process will be advised to discontinue. Patient was administered a 500 mL bolus in the emergency department. Potassium was supplemented. Patient does take potassium suppleme ntation. Patient encouraged to increase his oral intake of fluids at home. Will be given first treatment of steroids for possible mild COPD exacerbation. We'll close patient follow-up with primary care provider in strict return precautions. Case discussed with Dr. Lipscomb. - Lab Data Result diagrams: 07/05/19 19:07 07/05/19 19:07 Lab Results 07/05/19 07/05/19 07/05/19 Range/Units 19:07 19:07 19:07 WBC 14.7 H (3.8-10.6) k/uL RBC 4.46 (4.30-5.90) m/uL Hgb 13.9 (13.0-17.5) gm/dL Hct 41.3 (39.0-53.0) % MCV 92.7 (80.0-100.0) fL MCH 31.2 (25.0-35.0) pg MCHC 33.7 (31.0-37.0) g/dL RDW 13.4 (11.5-15.5) % Plt Count 182 (150-450) k/uL Neutrophils % 84 % Lymphocytes % 10 % Monocytes % 3 % Eosinophils % 1 % Basophils % 0 % Neutrophils # 12.3 H (1.3-7.7) k/uL Lymphocytes # 1.5 (1.0-4.8) k/uL Monocytes # 0.5 (0-1.0) k/uL Eosinophils # 0.1 (0-0.7) k/uL Basophils # 0.1 (0-0.2) k/uL Sodium 134 L (137-145) mmol/L Potassium 2.9 L (3.5-5.1) mmol/L Chloride 91 L (98-107) mmol/L Carbon Dioxide 33 H (22-30) mmol/L Anion Gap 10 mmol/L BUN 59 H (9-20) mg/dL Creatinine 1.34 H (0.66-1.25) mg/dL Est GFR (CKD-EPI)AfAm 62 (>60 ml/min/1.73 sqM) Est GFR (CKD-EPI)NonAf 54 (>60 ml/min/1.73 sqM) Glucose 174 H (74-99) mg/dL Plasma Lactic Acid Teo (0.7-2.0) mmol/L Calcium 8.8 (8.4-10.2) mg/dL Phosphorus 3.7 (2.5-4.5) mg/dL Magnesium 1.9 (1.6-2.3) mg/dL Total Bilirubin 0.5 (0.2-1.3) mg/dL AST 40 (17-59) U/L ALT 36 (4-49) U/L Alkaline Phosphatase 101 (38-126) U/L Troponin I (0.000-0.034) ng/mL Total Protein 6.4 (6.3-8.2) g/dL Albumin 3.9 (3.5-5.0) g/dL Coronavirus (PCR) Not Detected (Not Detectd) Influenza Type A RNA Not Detected (Not Detectd) Influenza Type B (PCR) Not Detected (Not Detectd) 07/05/19 07/05/19 Range/Units 19:07 19:38 WBC (3.8-10.6) k/uL RBC (4.30-5.90) m/uL Hgb (13.0-17.5) gm/dL Hct (39.0-53.0) % MCV (80.0-100.0) fL MCH (25.0-35.0) pg MCHC (31.0-37.0) g/dL RDW (11.5-15.5) % Plt Count (150-450) k/uL Neutrophils % % Lymphocytes % % Monocytes % % Eosinophils % % Basophils % % Neutrophils # (1.3-7.7) k/uL Lymphocytes # (1.0-4.8) k/uL Monocytes # (0-1.0) k/uL Eosinophils # (0-0.7) k/uL Basophils # (0-0.2) k/uL Sodium (137-145) mmol/L Potassium (3.5-5.1) mmol/L Chloride (98-107) mmol/L Carbon Dioxide (22-30) mmol/L Anion Gap mmol/L BUN (9-20) mg/dL Creatinine (0.66-1.25) mg/dL Est GFR (CKD-EPI)AfAm (>60 ml/min/1.73 sqM) Est GFR (CKD-EPI)NonAf (>60 ml/min/1.73 sqM) Glucose (74-99) mg/dL Plasma Lactic Acid Teo 3.3 H* (0.7-2.0) mmol/L Calcium (8.4-10.2) mg/dL Phosphorus (2.5-4.5) mg/dL Magnesium (1.6-2.3) mg/dL Total Bilirubin (0.2-1.3) mg/dL AST (17-59) U/L ALT (4-49) U/L Alkaline Phosphatase (38-126) U/L Troponin I <0.012 (0.000-0.034) ng/mL Total Protein (6.3-8.2) g/dL Albumin (3.5-5.0) g/dL Coronavirus (PCR) (Not Detectd) Influenza Type A RNA (Not Detectd) Influenza Type B (PCR) (Not Detectd) - EKG Data -: EKG Interpreted by Me (and Dr. Lipscomb ) EKG Comments: Ventricular rate 76, NH interval 140, QRS 104, QT/QTc 434/488. Normal sinus rhythm, nonspecific ST abnormality. Prolonged QT. No concern for acute ischemia. Disposition Clinical Impression: Dehydration, COPD (chronic obstructive pulmonary disease) Disposition: HOME SELF-CARE Condition: Stable Instructions (If sedation given, give patient instructions): Dehydration (ED), COPD (Chronic Obstructive Pulmonary Disease) (ED) Additional Instructions: Discontinue Levaquin. Take steroids as directed for next 3 Days as directed. Recommend taking potassium supplementation everyday for next 4 days. Continue to drink lots of fluids. Follow-up with primary care provider tomorrow. Return to ER if condition worsens in any way. Prescriptions: predniSONE [Deltasone] 20 mg PO BID 3 Days #6 tab Is patient prescribed a controlled substance at d/c from ED?: No Referrals: Rk Keene III, MD [Primary Care Provider] - 1-2 days
--- NOTE | 2019-07-05 18:55 | XR ---
EXAMINATION TYPE: XR chest 1V DATE OF EXAM: 07/05/2019 COMPARISON: 04/01/2018 HISTORY: And shortness of breath TECHNIQUE: Single frontal view of the chest is obtained. FINDINGS: There is no focal air space opacity, pleural effusion, or pneumothorax seen. The cardiac silhouette size is within normal limits. The osseous structures are intact. Interstitium mildly inc reased. Atherosclerotic change aorta. Postsurgical change right shoulder. IMPRESSION: Mild increased interstitium could been the basis of mild interstitial pneumonitis or bro nchitis correlate clinically.
[2019-07-05 19:30] LABS: Basophils # (A) 0.1 k/uL (0-0.2); Basophils % (A) 0 %; Eosinophils # (A) 0.1 k/uL (0-0.7); Eosinophils % (A) 1 %; HCT 41.3 % (39.0-53.0); HGB 13.9 gm/dL (13.0-17.5); Lymphocytes # (A) 1.5 k/uL (1.0-4.8); Lymphocytes % (A) 10 %; MCH 31.2 pg (25.0-35.0); MCHC 33.7 g/dL (31.0-37.0); MCV 92.7 fL (80.0-100.0); Mean Platelet Volume 10.4; Monocytes # (A) 0.5 k/uL (0-1.0); Monocytes % (A) 3 %; Neutrophils # (A) 12.3 k/uL (1.3-7.7); Neutrophils % (A) 84 %; Platelet Count 182 k/uL (150-450); RBC 4.46 m/uL (4.30-5.90); RDW 13.4 % (11.5-15.5); WBC 14.7 k/uL (3.8-10.6)
[2019-07-05 19:42] LABS: Albumin 3.9 g/dL (3.5-5.0); Calcium 8.8 mg/dL (8.4-10.2); Magnesium 1.9 mg/dL (1.6-2.3); Phosphorus 3.7 mg/dL (2.5-4.5); Potassium 2.9 mmol/L (3.5-5.1); Total Bilirubin 0.5 mg/dL (0.2-1.3); Total Protein 6.4 g/dL (6.3-8.2)
[2019-07-05] MEDS ORDERED: SODIUM CHLORIDE 0.9% 500 ML 500 ML IV ONE (19:55)
[2019-07-05] MEDS ORDERED: POTASSIUM CHLORIDE ER 20 MEQ TAB.ER PO STA (19:56)
[2019-07-05 20:29] VITALS: TEMP 98.2
[2019-07-05 21:32] LABS: Appearance,Urine Clear (Clear); Bilirubin,Urine Negative (Negative); Blood,Urine Negative (Negative); Color,Urine Yellow; Glucose,Urine (UA) Negative (Negative); Ketones,Urine Negative (Negative); Leukocyte Esterase,Urine Negative (Negative); Nitrite,Urine Negative (Negative); PH, Urine 5.5 (5.0-8.0); Protein,Urine Negative (Negative); Specific Gravity,Urine 1.014 (1.001-1.035); Urobilinogen,Urine <2.0 mg/dL (<2.0)
[2019-07-05 21:55] VITALS: BP 120/77; PULSE 71; RESP 16
== END 2019-07-05 21:55 | disposition home or self-care (01) ==
LOC: EC 17:04
DX: Z03.818 Encounter for observation for suspected exposure to other biological agents ruled out (principal); J44.9 Chronic obstructive pulmonary disease, unspecified; E86.0 Dehydration; D72.829 Elevated white blood cell count, unspecified; E87.6 Hypokalemia; R79.89 Other specified abnormal findings of blood chemistry; R74.0 Nonspecific elevation of levels of transaminase and lactic acid dehydrogenase [LDH]; I25.10 Atherosclerotic heart disease of native coronary artery without angina pectoris; I11.0 Hypertensive heart disease with heart failure; I50.9 Heart failure, unspecified; K21.9 Gastro-esophageal reflux disease without esophagitis; E78.5 Hyperlipidemia, unspecified; N42.9 Disorder of prostate, unspecified; M19.90 Unspecified osteoarthritis, unspecified site; G47.30 Sleep apnea, unspecified; Z99.89 Dependence on other enabling machines and devices; Z86.73 Personal history of transient ischemic attack (TIA), and cerebral infarction without residual deficits; Z95.5 Presence of coronary angioplasty implant and graft; Z96.652 Presence of left artificial knee joint; Z96.611 Presence of right artificial shoulder joint; Z87.891 Personal history of nicotine dependence; Z79.4 Long term (current) use of insulin; Z79.51 Long term (current) use of inhaled steroids; Z79.52 Long term (current) use of systemic steroids; Z79.899 Other long term (current) drug therapy; Z88.8 Allergy status to other drugs, medicaments and biological substances; Z53.8 Procedure and treatment not carried out for other reasons
CPT/HCPCS: 36415; 71045; 80053; 81003; 83605; 83735; 84100; 84484; 85025; 87502; 87635; 93005; 96360; 99284

== ENCOUNTER 2019-09-02 12:01 | Emergency (ER) | payer MEDICARE ==
[2019-09-02 12:10] VITALS: TEMP 98.1
[2019-09-02] MEDS ORDERED: KETOROLAC 30 MG/ML 1 ML VIAL IM STA (12:52)
--- NOTE | 2019-09-02 13:15 | XR ---
EXAMINATION TYPE: XR chest 2V DATE OF EXAM: 09/02/2019 COMPARISON: 07/05/2019 HISTORY: 69-year-old male left arm pain and shoulder pain TECHNIQUE: PA and lateral views FINDINGS: Heart normal size. Atherosclerotic arch calcifications. Some stable strandy lower lung areas of atele ctasis. Mild biapical pleural parenchymal scarring. No roberta consolidation or pleural effusion. Parti ally visualized right shoulder arthroplasty. IMPRESSION: Bibasilar areas of scarring or atelectasis. No definite acute process. Partially visualized right ba ulder arthroplasty.
--- NOTE | 2019-09-02 13:19 | ED ---
General Adult HPI - General Chief complaint: Extremity Problem,Nontraumatic Stated complaint: lt sided pain Time Seen by Provider: 09/02/19 12:17 Source: patient, RN notes reviewed Mode of arrival: wheelchair Limitations: no limitations - History of Present Illness Initial comments: 69-year-old male to A candidate past medical history presents to the emergency department for a chief complaint of neck and left arm pain. Patient states he has had left-sided neck pain that radiates down his left arm. She states she has a history of neck problems including spondylosis. Patient states turning his neck worsens his pain as well as moving his left arm in a certain way.Patient has no other complaints at this time including shortness of breath, chest pain, abdominal pain, nausea or vomiting, headache, or visual changes. - Related Data Home Medications Medication Instructions Recorded Confirmed Nitroglycerin Sl Tabs [Nitrostat] 0.4 mg SUBLINGUAL Q5M PRN 03/09/14 09/02/19 Omeprazole [PriLOSEC] 20 mg PO HS 03/09/14 09/02/19 Atorvastatin [Lipitor] 80 mg PO DAILY 05/08/15 09/02/19 Tamsulosin HCl [Flomax] 0.4 mg PO HS 10/09/16 09/02/19 Fluticasone/Vilanterol [Breo 1 puff INHALATION RT-DAILY 03/12/18 09/02/19 Ellipta 100-25 Mcg Inhaler] Insulin Glargine [Lantus] 30 unit SQ HS 03/25/18 09/02/19 methylPREDNISolone [Medrol] 4 mg PO DAILY 05/04/19 09/02/19 Aspirin 325 mg PO DAILY 09/02/19 09/02/19 Furosemide [Lasix] 80 mg PO DAILY 09/02/19 09/02/19 Glimepiride [Amaryl] 2 mg PO AC-BRKFST 09/02/19 09/02/19 Ipratropium-Albuterol Nebulize 3 ml INHALATION RT-QID 09/02/19 09/02/19 [Duoneb 0.5 mg-3 mg/3 ml Soln] Meloxicam 15 mg PO DAILY 09/02/19 09/02/19 Metolazone [Zaroxolyn] 2.5 mg PO Q48H 09/02/19 09/02/19 Metoprolol Tartrate 25 mg PO BID 09/02/19 09/02/19 Pramipexole Di-HCl [Mirapex] 1 mg PO DAILY 09/02/19 09/02/19 traMADol HCL 50 mg PO DAILY PRN 09/02/19 09/02/19 Previous Rx's Medication Instructions Recorded Potassium Chloride ER [K-Dur 20] 20 meq PO BID #0 03/15/18 Allergies Allergy/AdvReac Type Severity Reaction Status Date / Time prednisone AdvReac "MADE ME Verified 09/02/19 13:24 VERY ANGRY" Review of Systems ROS Statement: Those systems with pertinent positive or pertinent negative responses have been documented in the HPI. ROS Other: All systems not noted in ROS Statement are negative. Past Medical History Past Medical History: Coronary Artery Disease (CAD), Chest Pain / Angina, Heart Failure, COPD, Dementia, GERD/Reflux, Hyperlipidemia, Hypertension, Osteoarthri tis (OA), Prostate Disorder, Sleep Apnea/CPAP/BIPAP Additional Past Medical History / Comment(s): MINI STROKES - MRI DONE AT [place] SHOWS SMALL VESSEL DX, SLEEP APNEA/cpap, gout History of Any Multi-Drug Resistant Organisms: None Reported Past Surgical History: Back Surgery, Heart Catheterization With Stent, Joint Replacement, Orthopedic Surgery Additional Past Surgical History / Comment(s): TOTAL LEFT KNEE, FELIPE KNEE ARTHROSCOPY, rt shoulder replacement, HEART STENT X3,lt hand sx, colonoscopy Past Anesthesia/Blood Transfusion Reactions: No Reported Reaction Additional Past Anesthesia/Blood Transfusion Reaction / Comment(s): STATES "HAD A HARD TIME WITH BREATHING POST OP" Date of Last Stent Placement:: 2009 Past Psychological History: No Psychological Hx Reported Smoking Status: Former smoker Past Alcohol Use History: Occasional Past Drug Use History: None Reported - Past Family History Father Family Medical History: CVA/TIA, Hyperlipidemia, Hypertension Mother Family Medical History: Hypertension General Exam Limitations: no limitations General appearance: alert, in no apparent distress Head exam: Present: atraumatic, normocephalic, normal inspection Eye exam: Present: normal appearance, PERRL, EOMI. Absent: scleral icterus, conjunctival injection, periorbital swelling ENT exam: Present: normal exam, mucous membranes moist Neck exam: Present: tenderness (Left paraspinal cervical tenderness). Absent: meningismus, full ROM (Patient able to turn head to the right about 30, limited rotation to the left about 10 before patient had significant pain on the left side of the neck. Range of motion of the neck did elicit pain.), lymphadenopathy Respiratory exam: Present: normal lung sounds bilaterally. Absent: respiratory distress, wheezes, rales, rhonchi, stridor Cardiovascular Exam: Present: regular rate, normal rhythm, normal heart sounds. Absent: systolic murmur, diastolic murmur, rubs, gallop, clicks GI/Abdominal exam: Present: soft, normal bowel sounds. Absent: distended, tenderness, guarding, rebound, rigid Extremities exam: Present: normal capillary refill (Capillary refill less than 2 seconds, radial pulse 2+ in the left upper extremity, sensation intact. Strength 5 out of 5. No drift.). Absent: full ROM (Patient has pain with full abduction and full flexion of the left shoulder.), tenderness, pedal edema, joint swelling, calf tenderness Neurological exam: Present: alert Course Vital Signs 09/02/19 09/02/19 09/02/19 12:08 13:11 13:53 Temperature 98.1 F Pulse Rate 83 86 90 Respiratory 24 20 18 Rate Blood Pressure 144/71 130/88 116/66 O2 Sat by Pulse 96 93 L 92 L Oximetry 09/02/19 14:15 Temperature Pulse Rate Respiratory Rate Blood Pressure O2 Sat by Pulse 94 L Oximetry EKG Findings - EKG Comments: EKG Findings:: Normal sinus rhythm, ventricular rate 85, OR interval 136, QTC 485 Medical Decision Making - Medical Decision Making Vitals are stable. Patient is mid to low 90s on room air which she states is normal for him given COPD history. Patient denies any shortness of breath or chest pain. Patient states the pain rates from the left neck down to the left shoulder and down the left arm. Patient states moving worsens his pain such as sitting up, turning his head from [id number], or lifting his arm. Physical exam is documented. Neurovascular is intact. Chest x-ray shows bibasilar areas of scarring or atelectasis with out acute process. Patient was given IM Toradol and exit significant improvement in pain. is at bedside. She states patient could not move his neck earlier today and is now able to move his neck. Patient states he feels much better. Patient has a history of cervical spondylosis. He will follow-up with Dr. Grier. He will return here for any worsening symptoms. Disposition Clinical Impression: Cervical radiculopathy Disposition: HOME SELF-CARE Condition: Good Instructions (If sedation given, give patient instructions): Cervical Radiculopathy (ED) Additional Instructions: Please take Motrin for pain. If pain is severe take Tylenol 3. Do not drive or operate machinery while taking this. Please follow-up with primary care and Dr. Grier. You could inquire about pain management through primary care doctor. Return to the emergency department for any worsening symptoms. Is patient prescribed a controlled substance at d/c from ED?: No Referrals: Rk Keene III, MD [Primary Care Provider] - 1-2 days Shad Grier DO [Doctor of Osteopathic Medicine] - 1-2 days Time of Disposition: 14:03
[2019-09-02 13:54] VITALS: BP 116/66; PULSE 90; RESP 18
[2019-09-02] MEDS ORDERED: ACET/COD 300 MG/30 MG STARTER PACK 6 TAB BTL PO STA (14:10)
== END 2019-09-02 14:16 | disposition home or self-care (01) ==
LOC: EC 12:01
DX: M54.12 Radiculopathy, cervical region (principal); I25.10 Atherosclerotic heart disease of native coronary artery without angina pectoris; I11.0 Hypertensive heart disease with heart failure; I50.9 Heart failure, unspecified; J44.9 Chronic obstructive pulmonary disease, unspecified; K21.9 Gastro-esophageal reflux disease without esophagitis; E78.5 Hyperlipidemia, unspecified; M19.90 Unspecified osteoarthritis, unspecified site; N42.9 Disorder of prostate, unspecified; G47.30 Sleep apnea, unspecified; Z99.89 Dependence on other enabling machines and devices; Z86.73 Personal history of transient ischemic attack (TIA), and cerebral infarction without residual deficits; Z95.5 Presence of coronary angioplasty implant and graft; Z96.611 Presence of right artificial shoulder joint; Z87.891 Personal history of nicotine dependence; Z79.51 Long term (current) use of inhaled steroids; Z79.4 Long term (current) use of insulin; Z79.52 Long term (current) use of systemic steroids; Z79.82 Long term (current) use of aspirin; Z79.1 Long term (current) use of non-steroidal anti-inflammatories (NSAID); Z79.899 Other long term (current) drug therapy; Z88.8 Allergy status to other drugs, medicaments and biological substances
CPT/HCPCS: 93005; 71046; 99284; 96372; J1885

== ENCOUNTER 2019-09-03 03:37 | Inpatient (IN) | payer MEDICARE ==
[2019-09-03] MEDS ORDERED: ORPHENADRINE 30 MG/ML 2 ML VIAL IM STA (04:51)
[2019-09-03] MEDS ORDERED: MORPHINE SULFATE 4 MG/ML SYRINGE IVP STA ×3 (04:51→13:40)
--- NOTE | 2019-09-03 05:19 | ED ---
Extremity Problem HPI - General Chief complaint: Extremity Problem,Nontraumatic Stated complaint: pain all over Time Seen by Provider: 09/03/19 03:57 Source: patient, family Mode of arrival: ambulatory Limitations: no limitations - History of Present Illness Initial comments: Rogers is a 69-year-old male who returns the ER tonight for evaluation of persis tent neck pain radiating down the left arm. Patient has a history of spondylolisthesis, he reports that approximately 3 days ago he developed pain in his neck bradycardia down his left arm he states that he spent 2 days in bed but the pain persisted so he came to the ER yesterday. He did have an x-ray and was given Toradol and reported significant improvement in his discomfort. Pain is worse with any turning the head. Patient ascribes a sharp pain radiating down his left arm. No associated fevers chills, nausea, vomiting, chest pain, palpitations, shortness of breath. No recent illness. No known trauma, no recent heavy lifting. Patient cannot identify any inciting event to this pain. He states he slipped with chronic pain for over 20 years and did have MRI on his neck over 20 years ago which identified some spondylolisthesis however pain is worsened in the past few days. - Related Data Home Medications Medication Instructions Recorded Confirmed Nitroglycerin Sl Tabs [Nitrostat] 0.4 mg SUBLINGUAL Q5M PRN 03/09/14 09/03/19 Omeprazole [PriLOSEC] 20 mg PO HS 03/09/14 09/03/19 Atorvastatin [Lipitor] 80 mg PO DAILY 05/08/15 09/03/19 Tamsulosin HCl [Flomax] 0.4 mg PO HS 10/09/16 09/03/19 Fluticasone/Vilanterol [Breo 1 puff INHALATION RT-DAILY 03/12/18 09/03/19 Ellipta 100-25 Mcg Inhaler] Insulin Glargine [Lantus] 30 unit SQ HS 03/25/18 09/03/19 methylPREDNISolone [Medrol] 4 mg PO DAILY 05/04/19 09/03/19 Aspirin 325 mg PO DAILY 09/02/19 09/03/19 Furosemide [Lasix] 80 mg PO DAILY 09/02/19 09/03/19 Glimepiride [Amaryl] 2 mg PO AC-BRKFST 09/02/19 09/03/19 Ipratropium-Albuterol Nebulize 3 ml INHALATION RT-QID 09/02/19 09/03/19 [Duoneb 0.5 mg-3 mg/3 ml Soln] Meloxicam 15 mg PO DAILY 09/02/19 09/03/19 Metolazone [Zaroxolyn] 2.5 mg PO Q48H 09/02/19 09/03/19 Metoprolol Tartrate 25 mg PO BID 09/02/19 09/03/19 Pramipexole Di-HCl [Mirapex] 1 mg PO DAILY 09/02/19 09/03/19 traMADol HCL 50 mg PO DAILY PRN 09/02/19 09/03/19 Previous Rx's Medication Instructions Recorded Potassium Chloride ER [K-Dur 20] 20 meq PO BID #0 03/15/18 Allergies Allergy/AdvReac Type Severity Reaction Status Date / Time prednisone AdvReac "MADE ME Verified 09/03/19 06:18 VERY ANGRY" Review of Systems ROS Statement: Those systems with pertinent positive or pertinent negative responses have been documented in the HPI. ROS Other: All systems not noted in ROS Statement are negative. Past Medical History Past Medical History: Coronary Artery Disease (CAD), Chest Pain / Angina, Heart Failure, COPD, Dementia, GERD/Reflux, Hyperlipidemia, Hypertension, Osteoarthritis (OA), Prostate Disorder, Sleep Apnea/CPAP/BIPAP Additional Past Medical History / Comment(s): MINI STROKES - MRI DONE AT [facility] SMALL VESSEL DX, SLEEP APNEA/cpap, gout History of Any Multi-Drug Resistant Organisms: None Reported Past Surgical History: Back Surgery, Heart Catheterization With Stent, Joint Replacement, Orthopedic Surgery Additional Past Surgical History / Comment(s): TOTAL LEFT KNEE, FELIPE KNEE ARTHROSCOPY, rt shoulder replacement, HEART STENT X3,lt hand sx, colonoscopy Past Anesthesia/Blood Transfusion Reactions: No Reported Reaction Additional Past Anesthesia/Blood Transfusion Reaction / Comment(s): STATES "HAD A HARD TIME WITH BREATHING POST OP" Date of Last Stent Placement:: 2009 Past Psychological History: No Psychological Hx Reported Smoking Status: Former smoker Past Alcohol Use History: Occasional Past Drug Use History: None Reported - Past Family History Father Family Medical History: CVA/TIA, Hyperlipidemia, Hypertension Mother Family Medical History: Hypertension General Exam - General Exam Comments Initial Comments: Physical Exam GENERAL: Patient is well-developed and well-nourished. Appears uncomfortable but nontoxic HENT: Normocephalic, Atraumatic. EYES: PERRL, EOMI PULMONARY: Unlabored respirations. CARDIOVASCULAR: RRR Warm and well perfused extremities ABDOMEN: Non-distended SKIN: No rashes or bruising : Deferred NEUROLOGIC: Alert and oriented Normal speech Normal gait MUSCULOSKELETAL: Limited range of motion of the left neck secondary to pain able to flex and extend however limited turning No meningeal signs PSYCHIATRIC: No SI/HI Limitations: no limitations Course Vital Signs 09/03/19 09/03/19 09/03/19 03:51 06:13 06:22 Temperature 98.3 F Pulse Rate 101 H 104 H 104 H Respiratory 18 Rate Blood Pressure 120/76 O2 Sat by Pulse 93 L Oximetry Medical Decision Making - Medical Decision Making Patient was seen and evaluated history was obtained from patient, at bedside and review of medical record To be Romina gentleman with no injury seemingly cervical radiculopathy with pain radiating down the left arm Pain is reproducible with certain movements, not relieved with any certain positions exam is no meningeal signs vital signs are stable Given the patient has had x-rays already a computed tomography scan was ordered and resulted with no acute findings no signs of any bony distraction or metastatic disease there is possible chronic discitis Patient was treated with muscle relaxants and morphine he reported his pain decreased only from a 10 to a 70 was still intractable still didn't feel comfortable going home. Decision was made to obtain blood and admit the patient for intractable pain with a consult to Dr. Grier who he has been referred to outpatient. Disposition Clinical Impression: Neck pain, COPD (chronic obstructive pulmonary disease), Obesity Disposition: ADMITTED IP TO THIS HOSP Condition: Stable Is patient prescribed a controlled substance at d/c from ED?: No Referrals: Rk Keene III, MD [Primary Care Provider] - 1-2 days
[2019-09-03] MEDS ORDERED: IPRATROPIUM-ALBUTEROL 3 ML NEB INHALATION STA (05:53)
--- NOTE | 2019-09-03 06:03 | CT ---
EXAMINATION TYPE: CT cervical spine wo con DATE OF EXAM: 09/03/2019 COMPARISON: None HISTORY: intractable pain hx of spondololithesis CT DLP: 551 mGycm Automated exposure control for dose reduction was used. There is some straightening of the cervical spine and slight kyphotic curvature. There is moderately severe narrowing of the C5-6 disc space with spurring and sclerosis. There is slight loss of height a t C5 and C6 vertebral bodies. I see no acute fracture. Facet joints appear intact. The skull base is intact. Temporal bones appear intact. Prevertebral soft tissues are within normal limits. There is le ss severe narrowing at C4-5 and C6-7 disc spaces. There is developmentally adequate spinal canal and no do not suspect significant spinal stenosis. The re is a mild relative spinal stenosis at C5-6. IMPRESSION: Multilevel spondylotic changes with slight kyphotic curvature. There is significant sclerosis at the C5-6 disc could relate to some chronic discitis. No acute fracture seen.
[2019-09-03] MEDS ORDERED: NALOXONE 0.4 MG/ML 1 ML VIAL IV PRN (06:45)
[2019-09-03 07:51] LABS: Basophils # (A) 0.1 k/uL (0-0.2); Basophils % (A) 0 %; Eosinophils # (A) 0.2 k/uL (0-0.7); Eosinophils % (A) 1 %; HCT 41.8 % (39.0-53.0); HGB 13.7 gm/dL (13.0-17.5); Lymphocytes # (A) 1.1 k/uL (1.0-4.8); Lymphocytes % (A) 7 %; MCH 30.8 pg (25.0-35.0); MCHC 32.7 g/dL (31.0-37.0); MCV 94.2 fL (80.0-100.0); Mean Platelet Volume 9.2; Monocytes # (A) 0.7 k/uL (0-1.0); Monocytes % (A) 4 %; Neutrophils # (A) 13.2 k/uL (1.3-7.7); Neutrophils % (A) 85 %; Platelet Count 200 k/uL (150-450); RBC 4.44 m/uL (4.30-5.90); RDW 14.3 % (11.5-15.5); WBC 15.5 k/uL (3.8-10.6)
[2019-09-03 08:28] LABS: Albumin 3.9 g/dL (3.5-5.0); Calcium 8.6 mg/dL (8.4-10.2); Total Bilirubin 1.1 mg/dL (0.2-1.3); Total Protein 6.5 g/dL (6.3-8.2)
[2019-09-03 08:50] LABS: C Reactive Protein 248.3 mg/L (<10.0)
[2019-09-03 09:56] LABS: Erythrocyte Sedimentation Rate 83 mm/hr (0-15)
[2019-09-03] MEDS ORDERED: NITROGLYCERIN SL TABS 0.4 MG TAB SUBLINGUAL PRN (10:29)
[2019-09-03] MEDS ORDERED: POTASSIUM CHLORIDE ER 20 MEQ TAB.ER PO STA (10:30)
[2019-09-03] MEDS ORDERED: DIAZEPAM 2 MG TAB PO STA (10:32)
[2019-09-03] MEDS: IPRATROPIUM-ALBUTEROL 3 ML NEB INHALATION SCH ×3 (11:01→19:58)
[2019-09-03] MEDS: SODIUM CHLORIDE 0.9% 1,000 ML IV SCH (12:01)
[2019-09-03] MEDS: PRAMIPEXOLE 1 MG TAB PO SCH (12:01)
[2019-09-03] MEDS: traMADol 50 MG TAB PO PRN (12:09)
[2019-09-03 12:14] LABS: Glucose,Whole Blood 136 mg/dL (75-99)
[2019-09-03] MEDS: INSULIN ASPART (NovoLOG) 100 UNIT/ML VIAL SQ SCH ×3 (12:19→22:00)
--- NOTE | 2019-09-03 14:57 | MR ---
EXAMINATION TYPE: MR cervical spine wo/w con DATE OF EXAM: 09/03/2019 COMPARISON: 09/03/2019 HISTORY: Intractable neck pain, LUE radiculopathy, prior surgery TECHNIQUE: Multiplanar, multisequence images of the cervical spine were acquired utilizing 10 mL intravenous Jeovany avist gadolinium contrast. Diffusion weighted imaging was performed. Contrast: 10 mL Gadavist FINDINGS: Motion artifact severely limits the exam to the point where is nearly nondiagnostic for assessment of the spinal cord. Motion artifact also limits assessment of the disc spaces C5-C6. Assessment for dis citis or enhancing phlegmon is nondiagnostic. There is a kyphosis of the spine. Marrow signal is hete rogeneous and nonspecific. C2-C3: Degenerative disc disease. Facet arthropathy. No foraminal encroachment. C3-C4: Severe degenerative disc disease with posterior disc protrusion or herniation capped by spur a nd uncovertebral joint hypertrophy. Motion artifact severely limits the exam. Suspect that there is s ignificant canal stenosis with anterior impression upon the spinal cord and bilateral foraminal encro achment. C4-C5: Severe degenerative disc disease with broad-based disc herniation resulting in severe compress ion of the spinal cord. Hypertrophic spurring change of the facets and uncovertebral joints are noted with suspected bilateral foraminal encroachment and severe canal stenosis. C5-C6: Severe degenerative disc disease with broad-based disc osteophyte complex resulting in anterio r compression the spinal cord in significant canal stenosis and bilateral foraminal encroachment. Fac et arthropathy noted. C6-C7: Severe degenerative disc disease with posterior disc osteophyte complex resulting in canal yaya nosis and bilateral foraminal encroachment. There is greater paracentrally to the left. C7-T1: A posterior broad-based disc protrusion with compression of the thecal sac and encroachment up on the anterior margin of the spinal cord. Facet arthropathy and uncovertebral joint hypertrophy susp ected with foraminal encroachment. IMPRESSION: 1. Nearly nondiagnostic assessment due to severe motion artifact. There is multilevel severe degenera tive disc disease with disc herniations and disc osteophyte complex resulting in spinal cord compress ion and severe spinal stenosis and bilateral foraminal encroachment. 2. Due to motion artifact the exam is nondiagnostic in assessment for discitis or osteomyelitis. Perh aps repeat imaging could BE obtained with sedation. Grossly there does not appear to be high signal w ithin the disc space on the T2 image at C5-C6. Post contrast images are nondiagnostic. Findings could be simply discogenic. Correlate with sedimentation rate and repeat imaging as clinically warranted g iven the nondiagnostic assessment.
[2019-09-03 17:23] LABS: Glucose,Whole Blood 117 mg/dL (75-99)
[2019-09-03] MEDS ORDERED: HYDROcodone/APAP 5-325MG 1 EACH TAB PO PRN (19:01)
[2019-09-03 21:50] LABS: Glucose,Whole Blood 155 mg/dL (75-99)
[2019-09-03] MEDS: PANTOPRAZOLE 40 MG TABLET PO SCH (21:55)
[2019-09-03] MEDS: POTASSIUM CHLORIDE ER 20 MEQ TAB.ER PO SCH (21:56)
[2019-09-03] MEDS: METOPROLOL TARTRATE 25 MG TAB PO SCH (21:56)
[2019-09-03] MEDS: SENNOSIDES 8.6 MG TAB PO SCH (21:56)
[2019-09-03] MEDS: TAMSULOSIN 0.4 MG CAP.ER.24H PO SCH (21:56)
[2019-09-03] MEDS: INSULIN DETEMIR (LEVEMIR) 100 UNIT/ML SYR SQ SCH (22:01)
[2019-09-03] MEDS: MORPHINE SULFATE 2 MG/ML SYRINGE IVP PRN (22:02)
[2019-09-03] MEDS: LIDOCAINE 5% PATCH TOPICAL SCH (22:04)
--- NOTE | 2019-09-04 00:22 | P.HPIM ---
History of Present Illness H&P Date: 09/03/19 Chief Complaint: Neck pain Patient is a 69-year-old male with a long history of coronary disease with stent placement, chronic CHF, obstructive sleep apnea on CPAP and oxygen 4 L at night, previous history of smoking, COPD, cervical spondylosis and chronic low back pain, chronic hypoxic respiratory failure and history of multiple TIAs, diabetes type 2 and morbid obesity presents to ER with complaints of neck pain radiating to the left arm and tingling sensation. Patient says that pain is getting worse for the past 3 days. Patient initially developed neck pain radiated down to his left. Patient states that he was in the bed for 2 days but the pain persisted and is made him come to ER. Patient was given muscle relaxants and narcotic pain medications in the ER which seemed to improve his pain. CT cervical spine showed multilevel spondylotic changes with slight kyphotic curvature. There is significant sclerosis MD C5-C6 disc could correlate to some chronic discitis. No acute fracture seen. Laboratory data showed WBC 15.5, hemoglobin 13.7, platelets 200 Neutrophils 13.2 and ESR 83 and C-reactive protein 248 Sodium 133, potassium 3.0, chloride 88, bicarb is 31, BUN 75 and creatinine 2.19 Review of Systems Constitutional: Patient denies any fever or chills . No generalized weakness or weight loss. Abdomen: Patient denied nausea vomiting and diarrhea and abdominal pain. Cardiovascular: Patient denies any chest pain or short of breath no palpitations. Respiratory: patient denied any cough is from production. No shortness of breath Pain over the surgical site. Neurologic: Patient denied any numbness or tingling headache. Musculoskeletal: Patient denies any complaints of joint swelling or deformity. neck pain and tingling in the left arm Skin: Negative Psychiatric: Negative Endocrine: No heat or cold intolerance. No recent weight gain. Genitourinary: No dysuria or hematuria. All other 14 point ROS negative except the above Past Medical History Past Medical History: Coronary Artery Disease (CAD), Chest Pain / Angina, Heart Failure, COPD, GERD/Reflux, Hyperlipidemia, Hypertension, Osteoarthritis (OA), Pneumonia, Prostate Disorder, Respiratory Disorder, Sleep Apnea/CPAP/BIPAP Additional Past Medical History / Comment(s): Spondylolsis, cervical and low back pain, DDD, chronic respiratory failure, CALLI with Cpap/O2 at 4L/NC at HS, nonsustained vtach, TIAs, small vessel disease, IDDM type II, diverticular disease, colon polyps-benign, sinus problems, seasonal allergies History of Any Multi-Drug Resistant Organisms: None Reported Past Surgical History: Back Surgery, Heart Catheterization With Stent, Joint Replacement, Orthopedic Surgery Additional Past Surgical History / Comment(s): Bilateral knee arthroscopies, total L knee arthroplasty, R total shoulder arthroplasty, L hand injury with repair, PCI with 3 stents, colonoscopies/polypectomies, lumbar epidural injections, bilateral cataract removals/lens implants. Past Anesthesia/Blood Transfusion Reactions: No Reported Reaction Additional Past Anesthesia/Blood Transfusion Reaction / Comment(s): STATES "HAD A HARD TIME WITH BREATHING POST OP" Date of Last Stent Placement:: 2009 Smoking Status: Former smoker - Past Family History Father Family Medical History: CVA/TIA, Hyperlipidemia, Hypertension Mother Family Medical History: Hypertension Medications and Allergies Home Medications Medication Instructions Recorded Confirmed Type Nitroglycerin Sl Tabs [Nitrostat] 0.4 mg SUBLINGUAL Q5M PRN 03/09/14 09/03/19 History Omeprazole [PriLOSEC] 20 mg PO HS 03/09/14 09/03/19 History Atorvastatin [Lipitor] 80 mg PO DAILY 05/08/15 09/03/19 History Tamsulosin HCl [Flomax] 0.4 mg PO HS 10/09/16 09/03/19 History Fluticasone/Vilanterol [Breo 1 puff INHALATION RT-DAILY 03/12/18 09/03/19 History Ellipta 100-25 Mcg Inhaler] Potassium Chloride ER [K-Dur 20] 20 meq PO BID #0 03/15/18 09/03/19 Rx Insulin Glargine [Lantus] 30 unit SQ HS 03/25/18 09/03/19 History methylPREDNISolone [Medrol] 4 mg PO DAILY 05/04/19 09/03/19 History Aspirin 325 mg PO DAILY 09/02/19 09/03/19 History Furosemide [Lasix] 80 mg PO DAILY 09/02/19 09/03/19 History Glimepiride [Amaryl] 2 mg PO AC-BRKFST 09/02/19 09/03/19 History Ipratropium-Albuterol Nebulize 3 ml INHALATION RT-QID 09/02/19 09/03/19 History [Duoneb 0.5 mg-3 mg/3 ml Soln] Meloxicam 15 mg PO DAILY 09/02/19 09/03/19 History Metolazone [Zaroxolyn] 2.5 mg PO Q48H 09/02/19 09/03/19 History Metoprolol Tartrate 25 mg PO BID 09/02/19 09/03/19 History Pramipexole Di-HCl [Mirapex] 1 mg PO DAILY 09/02/19 09/03/19 History traMADol HCL 50 mg PO DAILY PRN 09/02/19 09/03/19 History Allergies Allergy/AdvReac Type Severity Reaction Status Date / Time prednisone AdvReac "MADE ME Verified 09/03/19 06:18 VERY ANGRY" Physical Exam Vitals: Vital Signs Temp Pulse Pulse Resp BP BP Pulse Ox 09/03/19 21:18 99 F 109 H 22 133/63 92 L 09/03/19 20:11 98 09/03/19 19:59 96 09/03/19 15:57 95 20 09/03/19 15:16 96 09/03/19 15:07 94 09/03/19 15:00 99.3 F 98 20 121/57 94 L 09/03/19 11:17 93 09/03/19 11:02 92 09/03/19 08:53 99.5 F 91 22 144/64 92 L 09/03/19 08:05 98.2 F 80 16 129/74 92 L 09/03/19 08:00 86 22 09/03/19 07:11 85 18 149/77 96 09/03/19 06:45 92 L 09/03/19 06:22 104 H 09/03/19 06:13 104 H 09/03/19 03:51 98.3 F 101 H 18 120/76 93 L Intake and Output 09/03/19 09/03/19 09/04/19 14:59 22:59 06:59 Intake Total 0 Balance 0 Intake: Oral 0 Other: Voiding Method Toilet Toilet # Voids 2 2 Weight 104.326 kg PHYSICAL EXAMINATION: Patient is lying in the bed comfortably, mild distress with pain, awake alert and oriented.. HEENT: Normocephalic. Neck is supple. Pupils reactive. Nostrils clear. Oral cavity is moist. Ears reveal no drainage. Neck reveals no JVD, carotid bruits, or thyromegaly. CHEST EXAMINATION: Trachea is central. Symmetrical expansion. bibasilar diminished air entry, Lung kimball clear to auscultation and percussion. Bilateral surgical site is bandaged. CARDIAC: Normal S1, S2 with no gallops. No murmurs ABDOMEN: Soft. Bowel sounds normal. No organomegaly. No abdominal bruits. Extremities: trace b/l edema. No clubbing or cyanosis Neurologically awake, alert, oriented x3 with well-coordinated movements. No focal deficits noted Skin: No rash or skin lesions. Psychiatric: Coperative. Nonsuicidal Musculoskeletal: No joint swelling or deformity. Normal range of motion. Results CBC & Chem 7: 09/03/19 07:30 09/03/19 07:30 Labs: Abnormal Lab Results - Last 24 Hours (Table) 09/03/19 09/03/19 09/03/19 Range/Units 07:30 07:30 12:07 WBC 15.5 H (3.8-10.6) k/uL Neutrophils # 13.2 H (1.3-7.7) k/uL ESR 83 H (0-15) mm/hr Sodium 133 L (137-145) mmol/L Potassium 3.0 L (3.5-5.1) mmol/L Chloride 88 L (98-107) mmol/L Carbon Dioxide 31 H (22-30) mmol/L BUN 75 H (9-20) mg/dL Creatinine 2.19 H (0.66-1.25) mg/dL Glucose 138 H (74-99) mg/dL POC Glucose (mg/dL) 136 H (75-99) mg/dL C-Reactive Protein 248.3 H (<10.0) mg/L 09/03/19 09/03/19 Range/Units 17:20 21:39 WBC (3.8-10.6) k/uL Neutrophils # (1.3-7.7) k/uL ESR (0-15) mm/hr Sodium (137-145) mmol/L Potassium (3.5-5.1) mmol/L Chloride (98-107) mmol/L Carbon Dioxide (22-30) mmol/L BUN (9-20) mg/dL Creatinine (0.66-1.25) mg/dL Glucose (74-99) mg/dL POC Glucose (mg/dL) 117 H 155 H (75-99) mg/dL C-Reactive Protein (<10.0) mg/L Thrombosis Risk Factor Assmnt - DVT/VTE Prophylaxis DVT/VTE Prophylaxis: Pharmacologic Prophylaxis ordered - Choose All That Apply Any of the Below Risk Factors Present?: Yes Each Factor Represents 1 point: Abnormal pulmonary function (COPD), Obesity (BMI >25), Serious lung disease incl. pneumonia (< 1month) Other Risk Factors: Yes Each Risk Factor Represents 2 Points: Age 61-74 years Other congenital or acquired thrombophilia - If yes, enter type in comment: No Thrombosis Risk Factor Assessment Total Risk Factor Score: 5 Thrombosis Risk Factor Assessment Level: High Risk Assessment and Plan Assessment: Acute on chronic intractable neck pain with tingling sensation in the left arm. Rule out cervical cord compression. Multilevel spondylitic changes and significant C5-C6 disc sclerosis Chronic discitis Elevated ESR and CRP levels and neutrophilic leukocytosis Hypovolemic hyponatremia Hypokalemia Acute kidney injury likely prerenal. Creatinine 2.19. Baseline 0.7 Chronic CHF with diastolic dysfunction EF 55 to 50% Coronary artery disease with history of stent placement x3 Hypertension Hyperlipidemia Obstructive sleep apnea on CPAP at home and oxygen 4 L via nasal cannula at at bedtime Chronic hypoxic respiratory failure Chronic cervical and low back pain History of multiple TIAs History of non-sustained V. tach. Previous history of smoking morbid Obesity with BMI 36 DVT Prophylaxis. Plan: Patient will be continued on pain management with narcotic IV and Flexeril. Will start on gentle hydration and Lasix and metolazone on hold. Replace potassium. CTA of the cervical spine showed chronic discitis. With leukocytosis, elevated ESR and CRP patient will be started on antibiotics in the form of ceftriaxone and ID service will be consulted. Orthopedics is on board. MRI of the cervical spine was ordered. Follow-up for any spinal cord compression. Follow-up closely and further recommendations based on clinical course. Prognosis is guarded at this time. Time with Patient: Greater than 30
[2019-09-04] MEDS: HYDROcodone/APAP 5-325MG 1 EACH TAB PO PRN ×4 (02:24→17:40)
[2019-09-04] MEDS: SODIUM CHLORIDE 0.9% 1,000 ML IV SCH ×2 (02:41→16:26)
[2019-09-04] MEDS: MORPHINE SULFATE 2 MG/ML SYRINGE IVP PRN ×3 (05:37→22:43)
[2019-09-04 06:29] LABS: Basophils % (A) 0 %; Eosinophils # (A) 0.1 k/uL (0-0.7); Eosinophils % (A) 1 %; HCT 37.7 % (39.0-53.0); HGB 12.8 gm/dL (13.0-17.5); Lymphocytes # (A) 0.9 k/uL (1.0-4.8); Lymphocytes % (A) 6 %; MCHC 33.9 g/dL (31.0-37.0); MCV 94.5 fL (80.0-100.0); Mean Platelet Volume 9.8; Monocytes # (A) 0.7 k/uL (0-1.0); Monocytes % (A) 5 %; Neutrophils # (A) 13.9 k/uL (1.3-7.7); Neutrophils % (A) 88 %; Platelet Count 174 k/uL (150-450); RBC 3.99 m/uL (4.30-5.90); WBC 15.9 k/uL (3.8-10.6)
[2019-09-04 06:50] LABS: Calcium 8.7 mg/dL (8.4-10.2); Potassium 3.1 mmol/L (3.5-5.1)
[2019-09-04 07:18] LABS: Glucose,Whole Blood 92 mg/dL (75-99)
--- NOTE | 2019-09-04 07:49 | P.CNOR ---
History of Present Illness - [facility] Consult date: 09/04/19 Consult reason: neck pain History of present illness: Patient is 69-year-old male who seen and examined at bedside. I saw him yesterday in the emergency room and I saw him again today at bedside here on the floor. The patient is admitted in regards to his neck pain and upper extremity radiculopathy on the left side. He says that he has been having severe pain over the past several days but has been significant for him. He says that he has some chronic pain in his neck and his lower back but over the past 3 days his neck and arm pain have become unbearable for him. He denies any specific trauma or injury. He has difficult time extending his head or lifting his arms. He denies any changes in bowel bladder function. Denies change in his vision or speech. He says his hand still feel strong but he cannot do things with his arm because of the pain. He denies any fevers chills or night sweats. He admits to diabetes. He is not having any new treatment for his neck. Varun was given some pain control and medications and says that he had some short-term relief but still having severe pain this morning. He underwent his MRI yesterday. Review of Systems as per HPI. He denies any changes in bowel bladder function. Denies loss of control of his lower extremities. He says he has chronic foot pain with gout. He also has chronic low back pain for many years. He says his neck and his upper extremity on the left side is his most significant issue at this point. Past Medical History Past Medical History: Coronary Artery Disease (CAD), Chest Pain / Angina, Heart Failure, COPD, GERD/Reflux, Hyperlipidemia, Hypertension, Osteoarthritis (OA), Pneumonia, Prostate Disorder, Respiratory Disorder, Sleep Apnea/CPAP/BIPAP Additional Past Medical History / Comment(s): Spondylolsis, cervical and low b ack pain, DDD, chronic respiratory failure, CALLI with Cpap/O2 at 4L/NC at HS, nonsustained vtach, TIAs, small vessel disease, IDDM type II, diverticular disease, colon polyps-benign, sinus problems, seasonal allergies History of Any Multi-Drug Resistant Organisms: None Reported Past Surgical History: Back Surgery, Heart Catheterization With Stent, Joint Replacement, Orthopedic Surgery Additional Past Surgical History / Comment(s): Bilateral knee arthroscopies, total L knee arthroplasty, R total shoulder arthroplasty, L hand injury with repair, PCI with 3 stents, colonoscopies/polypectomies, lumbar epidural injections, bilateral cataract removals/lens implants. Past Anesthesia/Blood Transfusion Reactions: No Reported Reaction Additional Past Anesthesia/Blood Transfusion Reaction / Comm: STATES "HAD A HARD TIME WITH BREATHING POST OP" Date of Last Stent Placement:: 2009 Smoking Status: Former smoker - Past Family History Father Family Medical History: CVA/TIA, Hyperlipidemia, Hypertension Mother Family Medical History: Hypertension Medications and Allergies Home Medications Medication Instructions Recorded Confirmed Type Nitroglycerin Sl Tabs [Nitrostat] 0.4 mg SUBLINGUAL Q5M PRN 03/09/14 09/03/19 History Omeprazole [PriLOSEC] 20 mg PO HS 03/09/14 09/03/19 History Atorvastatin [Lipitor] 80 mg PO DAILY 05/08/15 09/03/19 History Tamsulosin HCl [Flomax] 0.4 mg PO HS 10/09/16 09/03/19 History Fluticasone/Vilanterol [Breo 1 puff INHALATION RT-DAILY 03/12/18 09/03/19 History Ellipta 100-25 Mcg Inhaler] Potassium Chloride ER [K-Dur 20] 20 meq PO BID #0 03/15/18 09/03/19 Rx Insulin Glargine [Lantus] 30 unit SQ HS 03/25/18 09/03/19 History methylPREDNISolone [Medrol] 4 mg PO DAILY 05/04/19 09/03/19 History Aspirin 325 mg PO DAILY 09/02/19 09/03/19 History Furosemide [Lasix] 80 mg PO DAILY 09/02/19 09/03/19 History Glimepiride [Amaryl] 2 mg PO AC-BRKFST 09/02/19 09/03/19 History Ipratropium-Albuterol Nebulize 3 ml INHALATION RT-QID 09/02/19 09/03/19 History [Duoneb 0.5 mg-3 mg/3 ml Soln] Meloxicam 15 mg PO DAILY 09/02/19 09/03/19 History Metolazone [Zaroxolyn] 2.5 mg PO Q48H 09/02/19 09/03/19 History Metoprolol Tartrate 25 mg PO BID 09/02/19 09/03/19 History Pramipexole Di-HCl [Mirapex] 1 mg PO DAILY 09/02/19 09/03/19 History traMADol HCL 50 mg PO DAILY PRN 09/02/19 09/03/19 History Allergies Allergy/AdvReac Type Severity Reaction Status Date / Time prednisone AdvReac "MADE ME Verified 09/03/19 06:18 VERY ANGRY" Physical Examination Osteopathic Statement: *. No significant issues noted on an osteopathic structural exam other than those noted in the History and Physical/Consult. - C Spine: dermatomal strength & reflexes bilateral Shoulder strength: flexion: 4/5 Wrist strength: flexion: 5/5 (at his neck he holds his head slightly forward he has tenderness with muscular spasm the bilateral paraspinals and the troponins trapezium and rhomboids. He has pain with trying to elevate his bilateral shoulders. His biceps have 5 out of 5 muscle strength as do his triceps. He has 5 out of 5 academic affairs specialist strength bilaterally. He has no clonus. He has negative Sisi's. His lower extremity is has sustained dorsal flexion plantar flexion and EHL. He has pain with increased extension at his cervical spine. He is in obvious discomfort with his neck and his arms. He has well-healed incision in his low back.) Results - Labs Labs: Abnormal Lab Results - Last 24 Hours (Table) 09/03/19 09/03/19 09/03/19 Range/Units 07:30 07:30 12:07 WBC 15.5 H (3.8-10.6) k/uL RBC (4.30-5.90) m/uL Hgb (13.0-17.5) gm/dL Hct (39.0-53.0) % Neutrophils # 13.2 H (1.3-7.7) k/uL Lymphocytes # (1.0-4.8) k/uL ESR 83 H (0-15) mm/hr Sodium 133 L (137-145) mmol/L Potassium 3.0 L (3.5-5.1) mmol/L Chloride 88 L (98-107) mmol/L Carbon Dioxide 31 H (22-30) mmol/L BUN 75 H (9-20) mg/dL Creatinine 2.19 H (0.66-1.25) mg/dL Glucose 138 H (74-99) mg/dL POC Glucose (mg/dL) 136 H (75-99) mg/dL C-Reactive Protein 248.3 H (<10.0) mg/L 09/03/19 09/03/19 09/04/19 Range/Units 17:20 21:39 06:17 WBC 15.9 H (3.8-10.6) k/uL RBC 3.99 L (4.30-5.90) m/uL Hgb 12.8 L (13.0-17.5) gm/dL Hct 37.7 L (39.0-53.0) % Neutrophils # 13.9 H (1.3-7.7) k/uL Lymphocytes # 0.9 L (1.0-4.8) k/uL ESR (0-15) mm/hr Sodium (137-145) mmol/L Potassium (3.5-5.1) mmol/L Chloride (98-107) mmol/L Carbon Dioxide (22-30) mmol/L BUN (9-20) mg/dL Creatinine (0.66-1.25) mg/dL Glucose (74-99) mg/dL POC Glucose (mg/dL) 117 H 155 H (75-99) mg/dL C-Reactive Protein (<10.0) mg/L 09/04/19 Range/Units 06:17 WBC (3.8-10.6) k/uL RBC (4.30-5.90) m/uL Hgb (13.0-17.5) gm/dL Hct (39.0-53.0) % Neutrophils # (1.3-7.7) k/uL Lymphocytes # (1.0-4.8) k/uL ESR (0-15) mm/hr Sodium 132 L (137-145) mmol/L Potassium 3.1 L (3.5-5.1) mmol/L Chloride 91 L (98-107) mmol/L Carbon Dioxide 31 H (22-30) mmol/L BUN 75 H (9-20) mg/dL Creatinine 2.32 H (0.66-1.25) mg/dL Glucose 100 H (74-99) mg/dL POC Glucose (mg/dL) (75-99) mg/dL C-Reactive Protein (<10.0) mg/L H & H 09/03/19 09/04/19 Range/Units 07:30 06:17 Hgb 13.7 12.8 L (13.0-17.5) gm/dL Hct 41.8 37.7 L (39.0-53.0) % Result Diagrams: 09/04/19 06:17 09/04/19 06:17 - Diagnostic results Cervical MRI with contrast: report reviewed, image reviewed (his cervical MRI was performed yesterday. I was able to review the images as well as the report. There is significant motion out of artifact. There is evidence of significant disc degeneration particular at C4 5 C5 6 and C6 7. At C5 6 there is complete disc height loss. There is loss of cervical doses with some cervical kyphosis. There is some central and bilateral foraminal stenosis at C4 5 C5 6 and C6 7 m ost significant at C4 5 6. I do not see any obvious cord signal change. It is somewhat difficult to tell given the quality of the imaging.) Assessment and Plan Assessment: cervical stenosis Upper extremity radiculopathy Degenerative disc disease Disc herniation C4 5 C5 6 C6 7 Severe neck pain Long history of diabetes Chronic low back pain Bilateral gout at his feet Plan: cervical stenosis Upper extremity radiculopathy Degenerative disc disease Disc herniation C4 5 C5 6 C6 7 Severe neck pain Long history of diabetes Chronic low back pain Bilateral gout at his feet the patient is having significant exacerbation of his cervical spine issues with upper extremity radiculopathy and left. He does not have acute neurologic lo sses left upper extremity. There is evidence of significant stenosis C4 5 C5 6 and C6 7. I like to see if he has some relief with medications and IV steroid. I understand that he has significant diabetes and he will need to cover the insulin and glucose appropriately but I think the steroid could help significantly with his symptoms and would like to try the medication If we are able. I would like to have interventional pain management anesthesia department see him for possible epidural steroid injections. We have consult and anesthesia department for further pain control as possible epidural steroids. I think this could help relieve some of his symptoms. The patient is a candidate for surgical intervention for his cervical spine. He has multiple issues but the cervical spine seems to be most presiding issue at this point. I think that he would be a candidate for anterior cervical decompression with discectomy and fusion at C4 5 C5 6 and C6 7 if he is not spine any to conservative care. If he does have some response to conservative management he could be discharged with continued conservative care with close follow-up with our service. I explained this to him. We will continue to follow them closely. Time with Patient: Greater than 30
[2019-09-04] MEDS: IPRATROPIUM-ALBUTEROL 3 ML NEB INHALATION SCH ×4 (07:55→20:51)
[2019-09-04] MEDS: SYMBICORT 80-4.5 MCG INHALER INHALATION SCH ×2 (07:56→20:51)
[2019-09-04] MEDS: POTASSIUM CHLORIDE ER 20 MEQ TAB.ER PO SCH ×6 (08:27→22:45)
[2019-09-04] MEDS: METOPROLOL TARTRATE 25 MG TAB PO SCH ×2 (08:27→21:30)
[2019-09-04] MEDS: SENNOSIDES 8.6 MG TAB PO SCH ×2 (08:27→21:30)
[2019-09-04] MEDS: PRAMIPEXOLE 1 MG TAB PO SCH (08:27)
[2019-09-04] MEDS: ATORVASTATIN 80 MG TAB PO SCH (08:27)
[2019-09-04] MEDS: HEPARIN SODIUM,PORCINE 5,000 UNIT/ML 1 ML VIAL SQ SCH ×3 (08:27→23:52)
[2019-09-04] MEDS: GLIMEPIRIDE 2 MG TAB PO SCH (08:27)
[2019-09-04] MEDS: ASPIRIN 325 MG TAB PO SCH (08:28)
[2019-09-04] MEDS: INSULIN ASPART (NovoLOG) 100 UNIT/ML VIAL SQ SCH ×4 (08:28→21:31)
[2019-09-04] MEDS: methylPREDNISolone SOD SUCCI 125 MG/2 ML VIAL IV SCH ×2 (08:32→21:31)
[2019-09-04] MEDS: LIDOCAINE 5% PATCH TOPICAL SCH (08:33)
[2019-09-04] MEDS ORDERED: Potassium Replacement Protocol 1 EACH MISC MISCELLANE PRN (10:57)
[2019-09-04] MEDS: traMADol 50 MG TAB PO PRN (11:17)
[2019-09-04 12:21] LABS: Glucose,Whole Blood 174 mg/dL (75-99)
--- NOTE | 2019-09-04 12:22 | P.CNPUL ---
History of Present Illness Consult date: 09/04/19 Requesting physician: Jen Collado Reason for consult: dyspnea, COPD Chief complaint: Intractable pain History of present illness: This is a very pleasant 69-year-old gentleman who follows with Dr. Keene is his primary care provider. He has a history of hypertension, hyperlipidemia, GERD, diastolic congestive heart failure, coronary artery disease, degenerative joint disease, obesity, obstructive sleep apnea maintained on CPAP in the outpatient setting. He also has a history of chronic tobacco dependence and chronic obstructive pulmonary disease and follows with Dr. Chang in our office for the same. He does wear his CPAP nightly. He has oxygen at 4 L at night as well. He presented here to the emergency room yesterday for acute on chronic neck pain radiating down to his left arm with significant left shoulder pain. His pain was uncontrolled with his outpatient medication. Computed tomography scan of the cervical spine reveals multilevel spondylotic changes with slight kyphotic curvature. There is significant sclerosis at C5-6 with chronic discitis. No acute fracture. MRI of the neck revealed severe motion artifact and nearly nondiagnostic assessment. There is multilevel severe degenerative disc disease with disc herniations and disc osteophyte complex resulting in spinal cord compression and severe spinal stenosis and bilateral foramen encroachment. Nondiagnostic for discitis or osteomyelitis. Recommended repeating MRI with sedation. He has been seen and evaluated by orthopedics. They're recommending epidural steroid injections per anesthesia. May require surgical intervention. Chest x-ray reveals bibasilar scarring/atelectasis. No acute pulmonary process. He is having complaints of shortness of breath cough and congestion and we are consulted for the same. He is seen in the regular medical floor. Currently sitting up at the bedside. Awake and alert in no acute distress. He is maintaining O2 saturation the mid 90s on 2 L/m per nasal cannula. He's been afebrile. White count 15.9. Hemoglobin 12.8. Sodium 132. Potassium 3.1. Bic arb 31. Creatinine 2.32. He's been initiated on Symbicort, DuoNeb inhalations, IV Solu-Medrol. Lidoderm patch to the lower back. Morphine for pain control. Review of Systems REVIEW OF SYSTEMS: CONSTITUTIONAL: Denies any recent significant weight loss or weight gain. EYES: Denies change in vision. EARS, NOSE, MOUTH, THROAT: Denies headaches, denies sore throat. CARDIOVASCULAR: Denies chest pain, palpitations or syncopal episodes. RESPIRATORY: Positive for shortness of breath, cough, congestion no hemoptysis. GASTROINTESTINAL: Denies change in appetite, denies abdominal pain GENITOURINARY: Denies hematuria, denies infections. MUSKULOSKELETAL: Positive for significant cervical neck pain, low back pain, left shoulder pain INTEGUMENTARY: Denies rash, denies eczema. NEUROLOGICAL: Denies recent memory loss, no recent seizure activity. PSYCHIATRIC: Denies anxiety, denies depression. HEMATOLOGIC/LYMPHATIC: Denies anemia, denies enlarged lymph nodes. Past Medical History Past Medical History: Coronary Artery Disease (CAD), Chest Pain / Angina, Heart Failure, COPD, GERD/Reflux, Hyperlipidemia, Hypertension, Osteoarthritis (OA), Pneumonia, Prostate Disorder, Respiratory Disorder, Sleep Apnea/CPAP/BIPAP Additional Past Medical History / Comment(s): Spondylolsis, cervical and low back pain, DDD, chronic respiratory failure, CALLI with Cpap/O2 at 4L/NC at HS, nonsustained vtach, TIAs, small vessel disease, IDDM type II, diverticular disease, colon polyps-benign, sinus problems, seasonal allergies History of Any Multi-Drug Resistant Organisms: None Reported Past Surgical History: Back Surgery, Heart Catheterization With Stent, Joint Replacement, Orthopedic Surgery Additional Past Surgical History / Comment(s): Bilateral knee arthroscopies, total L knee arthroplasty, R total shoulder arthroplasty, L hand injury with repair, PCI with 3 stents, colonoscopies/polypectomies, lumbar epidural injections, bilateral cataract removals/lens implants. Past Anesthesia/Blood Transfusion Reactions: No Reported Reaction Additional Past Anesthesia/Blood Transfusion Reaction / Comment(s): STATES "HAD A HARD TIME WITH BREATHING POST OP" Date of Last Stent Placement:: 2009 Smoking Status: Former smoker - Past Family History Father Family Medical History: CVA/TIA, Hyperlipidemia, Hypertension Mother Family Medical History: Hypertension Medications and Allergies Home Medications Medication Instructions Recorded Confirmed Type Nitroglycerin Sl Tabs [Nitrostat] 0.4 mg SUBLINGUAL Q5M PRN 03/09/14 09/03/19 History Omeprazole [PriLOSEC] 20 mg PO HS 03/09/14 09/03/19 History Atorvastatin [Lipitor] 80 mg PO DAILY 05/08/15 09/03/19 History Tamsulosin HCl [Flomax] 0.4 mg PO HS 10/09/16 09/03/19 History Fluticasone/Vilanterol [Breo 1 puff INHALATION RT-DAILY 03/12/18 09/03/19 His tory Ellipta 100-25 Mcg Inhaler] Potassium Chloride ER [K-Dur 20] 20 meq PO BID #0 03/15/18 09/03/19 Rx Insulin Glargine [Lantus] 30 unit SQ HS 03/25/18 09/03/19 History methylPREDNISolone [Medrol] 4 mg PO DAILY 05/04/19 09/03/19 History Aspirin 325 mg PO DAILY 09/02/19 09/03/19 History Furosemide [Lasix] 80 mg PO DAILY 09/02/19 09/03/19 History Glimepiride [Amaryl] 2 mg PO AC-BRKFST 09/02/19 09/03/19 History Ipratropium-Albuterol Nebulize 3 ml INHALATION RT-QID 09/02/19 09/03/19 History [Duoneb 0.5 mg-3 mg/3 ml Soln] Meloxicam 15 mg PO DAILY 09/02/19 09/03/19 History Metolazone [Zaroxolyn] 2.5 mg PO Q48H 09/02/19 09/03/19 History Metoprolol Tartrate 25 mg PO BID 09/02/19 09/03/19 History Pramipexole Di-HCl [Mirapex] 1 mg PO DAILY 09/02/19 09/03/19 History traMADol HCL 50 mg PO DAILY PRN 09/02/19 09/03/19 History Allergies Allergy/AdvReac Type Severity Reaction Status Date / Time prednisone AdvReac "MADE ME Verified 09/03/19 06:18 VERY ANGRY" Physical Exam Vitals: Vital Signs Temp Pulse Pulse Resp BP Pulse Ox 09/04/19 11:41 92 09/04/19 11:31 92 09/04/19 08:08 95 09/04/19 07:56 94 94 L 09/04/19 05:16 98.9 F 83 20 155/65 94 L 09/03/19 21:18 99 F 109 H 22 133/63 92 L 09/03/19 20:11 98 09/03/19 19:59 96 09/03/19 15:57 95 20 09/03/19 15:16 96 09/03/19 15:07 94 09/03/19 15:00 99.3 F 98 20 121/57 94 L Intake and Output 09/03/19 09/04/19 09/04/19 22:59 06:59 14:59 Other: Voiding Method Toilet Toilet Toilet # Voids 1 1 GENERAL EXAM: Alert, pleasant 69-year-old gentleman, on 2 L nasal cannula comfortable in no apparent distress. HEAD: Normocephalic. EYES: Normal reaction of pupils, equal size. NOSE: Clear with pink turbinates. THROAT: No erythema or exudates. NECK: Significant limited to range of motion CHEST: No chest wall deformity. LUNGS: Equal air entry with bilateral end expiratory wheeze, diminished. CVS: S1 and S2 normal with no audible murmur, regular rhythm. ABDOMEN: No hepatosplenomegaly, normal bowel sounds, no guarding or rigidity. SPINE: Significant discomfort and mild kyphosis SKIN: No rashes CENTRAL NERVOUS SYSTEM: No focal deficits, tone is normal in all 4 extremities. EXTREMITIES: Pain in the left shoulder due to cervical neck pain There is trace peripheral edema. No clubbing, no cyanosis. Peripheral pulses are intact. Results - Laboratory Findings CBC and BMP: 09/04/19 06:17 09/04/19 06:17 Abnormal lab findings: Abnormal Labs 09/03/19 09/03/19 09/03/19 07:30 07:30 12:07 WBC 15.5 H RBC Hgb Hct Neutrophils # 13.2 H Lymphocytes # ESR 83 H Sodium 133 L Potassium 3.0 L Chloride 88 L Carbon Dioxide 31 H BUN 75 H Creatinine 2.19 H Glucose 138 H POC Glucose (mg/dL) 136 H C-Reactive Protein 248.3 H 09/03/19 09/03/19 09/04/19 17:20 21:39 06:17 WBC 15.9 H RBC 3.99 L Hgb 12.8 L Hct 37.7 L Neutrophils # 13.9 H Lymphocytes # 0.9 L ESR Sodium Potassium Chloride Carbon Dioxide BUN Creatinine Glucose POC Glucose (mg/dL) 117 H 155 H C-Reactive Protein 09/04/19 06:17 WBC RBC Hgb Hct Neutrophils # Lymphocytes # ESR Sodium 132 L Potassium 3.1 L Chloride 91 L Carbon Dioxide 31 H BUN 75 H Creatinine 2.32 H Glucose 100 H POC Glucose (mg/dL) C-Reactive Protein - Diagnostic Findings Chest x-ray: image reviewed Assessment and Plan Assessment: 1 Intractable cervical neck pain, lumbar pain secondary to severe stenosis and degenerative disc disease 2 Acute exacerbation of chronic obstructive pulmonary disease 3 Obstructive sleep apnea utilizing CPAP in the outpatient setting 4 Morbid obesity 5 History of chronic tobacco dependence 6 Degenerative disc disease 7 7 Coronary artery disease with previous stent placement 8 Hypertension 9 Hyperlipidemia 10 Degenerative joint disease with previous right shoulder replacement total left knee replacement Plan: The patient was seen and evaluated by Dr. Chang Chest x-ray and labs reviewed Continue Symbicort, bronchodilators, steroids Orthopedic consultation for acute on chronic pain We'll continue to follow and make further recommendations based on his clinical status I, the cosigning physician, performed a history & physical examination of the patient. Lungs sounds bilateral end expiratory wheeze, diminished. Maintaining good O2 saturations in the 90s on 2 L/m per nasa. I discussed the assessment and plan of care with my nurse practitioner, Judi Crawford. I attest to the above consultation as dictated by her. Time with Patient: Greater than 30
--- NOTE | 2019-09-04 13:16 | XR ---
EXAMINATION TYPE: XR chest 2V DATE OF EXAM: 09/04/2019 HISTORY: COPD. REFERENCE: Previous study dated 09/02/2019. FINDINGS: There is a right shoulder arthroplasty in place. The lungs are overinflated. Heart size upper limits of normal. There is atelectatic change present at both lung bases. No definite pleural fluid is seen. IMPRESSION: 1. COPD. 2. BIBASILAR ATELECTASIS.
--- NOTE | 2019-09-04 14:48 | P.NPCON ---
History of Present Illness - Reason for Consult acute renal failure - Chief Complaint Neck pain - History of Present Illness Coming to the hospital with the above complaint. He does have radiation in his both upper extremities. Workup including computed tomography scan showed cer vical stenosis. Nephrology was consulted for acute kidney injury. Baseline creatinine is 0.8-1.3 MG per DL. He takes diuretics at home including Lasix 80 mg daily and metolazone every other day. He also takes meloxicam at home and was given Toradol in the ER. No recent contrast studies. Denies any urinary retention. He does have diastolic dysfunction. His admission creatinine was 2.19 and 2.3 to today. Overnight he was getting IV fluids. No nausea vomiting diarrhea. Review of Systems Constitutional: Reports as per HPI Past Medical History Past Medical History: Coronary Artery Disease (CAD), Chest Pain / Angina, Heart Failure, COPD, GERD/Reflux, Hyperlipidemia, Hypertension, Osteoarthritis (OA), Pneumonia, Prostate Disorder, Respiratory Disorder, Sleep Apnea/CPAP/BIPAP Additional Past Medical History / Comment(s): Spondylolsis, cervical and low back pain, DDD, chronic respiratory failure, CALLI with Cpap/O2 at 4L/NC at HS, nonsustained vtach, TIAs, small vessel disease, IDDM type II, diverticular disease, colon polyps-benign, sinus problems, seasonal allergies History of Any Multi-Drug Resistant Organisms: None Reported Past Surgical History: Back Surgery, Heart Catheterization With Stent, Joint Replacement, Orthopedic Surgery Additional Past Surgical History / Comment(s): Bilateral knee arthroscopies, total L knee arthroplasty, R total shoulder arthroplasty, L hand injury with repair, PCI with 3 stents, colonoscopies/polypectomies, lumbar epidural injections, bilateral cataract removals/lens implants. Past Anesthesia/Blood Transfusion Reactions: No Reported Reaction Additional Past Anesthesia/Blood Transfusion Reaction / Comment(s): STATES "HAD A HARD TIME WITH BREATHING POST OP" Date of Last Stent Placement:: 2009 Smoking Status: Former smoker - Past Family History Father Family Medical History: CVA/TIA, Hyperlipidemia, Hypertension Mother Family Medical History: Hypertension Medications and Allergies Home Medications Medication Instructions Recorded Confirmed Type Nitroglycerin Sl Tabs [Nitrostat] 0.4 mg SUBLINGUAL Q5M PRN 03/09/14 09/03/19 History Omeprazole [PriLOSEC] 20 mg PO HS 03/09/14 09/03/19 History Atorvastatin [Lipitor] 80 mg PO DAILY 05/08/15 09/03/19 History Tamsulosin HCl [Flomax] 0.4 mg PO HS 10/09/16 09/03/19 History Fluticasone/Vilanterol [Breo 1 puff INHALATION RT-DAILY 03/12/18 09/03/19 History Ellipta 100-25 Mcg Inhaler] Potassium Chloride ER [K-Dur 20] 20 meq PO BID #0 03/15/18 09/03/19 Rx Insulin Glargine [Lantus] 30 unit SQ HS 03/25/18 09/03/19 History methylPREDNISolone [Medrol] 4 mg PO DAILY 05/04/19 09/03/19 History Aspirin 325 mg PO DAILY 09/02/19 09/03/19 History Furosemide [Lasix] 80 mg PO DAILY 09/02/19 09/03/19 History Glimepiride [Amaryl] 2 mg PO AC-BRKFST 09/02/19 09/03/19 History Ipratropium-Albuterol Nebulize 3 ml INHALATION RT-QID 09/02/19 09/03/19 History [Duoneb 0.5 mg-3 mg/3 ml Soln] Meloxicam 15 mg PO DAILY 09/02/19 09/03/19 History Metolazone [Zaroxolyn] 2.5 mg PO Q48H 09/02/19 09/03/19 History Metoprolol Tartrate 25 mg PO BID 09/02/19 09/03/19 History Pramipexole Di-HCl [Mirapex] 1 mg PO DAILY 09/02/19 09/03/19 History traMADol HCL 50 mg PO DAILY PRN 09/02/19 09/03/19 History Allergies Allergy/AdvReac Type Severity Reaction Status Date / Time prednisone AdvReac "MADE ME Verified 09/03/19 06:18 VERY ANGRY" Physical Exam Vitals: Vital Signs Temp Pulse Pulse Resp BP Pulse Ox 09/04/19 11:41 92 09/04/19 11:31 92 09/04/19 08:08 95 09/04/19 07:56 94 94 L 09/04/19 05:16 98.9 F 83 20 155/65 94 L 09/03/19 21:18 99 F 109 H 22 133/63 92 L 09/03/19 20:11 98 09/03/19 19:59 96 09/03/19 15:57 95 20 09/03/19 15:16 96 09/03/19 15:07 94 09/03/19 15:00 99.3 F 98 20 121/57 94 L Intake and Output 09/03/19 09/04/19 09/04/19 22:59 06:59 14:59 Other: Voiding Method Toilet Toilet Toilet # Voids 1 1 No acute distress S1-S2 heard Decreased breath sounds Abdomen distended Edema Results - Lab Results Most recent lab results Calcium 8.7 mg/dL (8.4-10.2) 09/04/19 06:17 09/04/19 06:17 09/04/19 06:17 Assessment and Plan Assessment: #1 acute kidney injury suspect cardiorenal with diastolic dysfunction and tubulointerstitial nephritis from NSAID use. #2 diastolic dysfunction #3 volume overload #4 hypokalemia with metabolic alkalosis secondary to diuretics #5 hypertension with chronic kidney disease #6 chronic kidney disease with a baseline creatinine of 0.8-1.3 MG per DL. Plan: #1 stop IV fluids #2 add Lasix 40 mg IV 3 times a day #3 bladder scan to rule out urinary retention. If requiring straight caths more than [address] Finch catheter. #4 check urine analysis and renal ultrasound, urine electrolytes #5 avoid nephrotoxic agents and hypotensive episodes #6 labs in the morning
[2019-09-04] MEDS: FUROSEMIDE 10 MG/ML 4 ML VIAL IV SCH ×2 (16:01→23:52)
[2019-09-04 16:39] LABS: Appearance,Urine Clear (Clear); Bilirubin,Urine Negative (Negative); Blood,Urine Negative (Negative); Color,Urine Yellow; Glucose,Urine (UA) Negative (Negative); Ketones,Urine Negative (Negative); Leukocyte Esterase,Urine Negative (Negative); Nitrite,Urine Negative (Negative); Protein,Urine Trace (Negative); Specific Gravity,Urine 1.014 (1.001-1.035); Urobilinogen,Urine <2.0 mg/dL (<2.0)
[2019-09-04 16:42] LABS: Glucose,Whole Blood 243 mg/dL (75-99)
[2019-09-04 16:53] LABS: Creatinine,Urine Random 168.7 mg/dL
--- NOTE | 2019-09-04 17:56 | US ---
EXAMINATION TYPE: US kidneys/renal and bladder DATE OF EXAM: 09/04/2019 COMPARISON: NONE CLINICAL HISTORY: lennie. EXAM MEASUREMENTS: Right Kidney: 12.7 x 5.8 x 5.3 cm Left Kidney: 12.7 x 6.1 x 5.9 cm Patient of large body habitus with SOB, unable to hold breath, technically difficult study. Right Kidney: No hydronephrosis or masses seen Left Kidney: No hydronephrosis or masses seen Bladder: wnl as seen, not fully distended IMPRESSION: No evidence of renal mass or obstruction. Urinary bladder appears normal.
[2019-09-04 20:09] LABS: Glucose,Whole Blood 350 mg/dL (75-99)
[2019-09-04] MEDS: TAMSULOSIN 0.4 MG CAP.ER.24H PO SCH (21:29)
[2019-09-04] MEDS: PANTOPRAZOLE 40 MG TABLET PO SCH (21:30)
[2019-09-04] MEDS: INSULIN DETEMIR (LEVEMIR) 100 UNIT/ML SYR SQ SCH (21:31)
[2019-09-05] MEDS: HYDROcodone/APAP 5-325MG 1 EACH TAB PO PRN ×4 (02:02→20:19)
[2019-09-05] MEDS: MORPHINE SULFATE 2 MG/ML SYRINGE IVP PRN ×2 (06:28→15:49)
[2019-09-05 07:03] LABS: Calcium 9.1 mg/dL (8.4-10.2); Magnesium 1.9 mg/dL (1.6-2.3); Potassium 3.5 mmol/L (3.5-5.1)
[2019-09-05 07:16] LABS: Glucose,Whole Blood 231 mg/dL (75-99)
[2019-09-05] MEDS: METOPROLOL TARTRATE 25 MG TAB PO SCH ×2 (07:57→20:23)
[2019-09-05] MEDS: ASPIRIN 325 MG TAB PO SCH (07:57)
[2019-09-05] MEDS: POTASSIUM CHLORIDE ER 20 MEQ TAB.ER PO SCH ×6 (07:57→20:23)
[2019-09-05] MEDS: ATORVASTATIN 80 MG TAB PO SCH (07:57)
[2019-09-05] MEDS: SENNOSIDES 8.6 MG TAB PO SCH ×2 (07:57→20:23)
[2019-09-05] MEDS: HEPARIN SODIUM,PORCINE 5,000 UNIT/ML 1 ML VIAL SQ SCH ×2 (07:58→15:48)
[2019-09-05] MEDS: FUROSEMIDE 10 MG/ML 4 ML VIAL IV SCH ×3 (07:58→23:58)
[2019-09-05] MEDS: methylPREDNISolone SOD SUCCI 125 MG/2 ML VIAL IV SCH ×2 (07:58→20:23)
[2019-09-05] MEDS: INSULIN ASPART (NovoLOG) 100 UNIT/ML VIAL SQ SCH ×4 (08:00→20:24)
[2019-09-05] MEDS: GLIMEPIRIDE 2 MG TAB PO SCH (08:01)
[2019-09-05] MEDS: SYMBICORT 80-4.5 MCG INHALER INHALATION SCH ×2 (08:14→20:24)
[2019-09-05] MEDS: IPRATROPIUM-ALBUTEROL 3 ML NEB INHALATION SCH ×4 (08:14→20:24)
[2019-09-05] MEDS: LIDOCAINE 5% PATCH TOPICAL SCH (08:15)
[2019-09-05] MEDS: PRAMIPEXOLE 1 MG TAB PO SCH (10:37)
--- NOTE | 2019-09-05 11:04 | P.CONS ---
History of Present Illness - Reason for Consult Consult date: 09/04/19 ? discitis Requesting physician: Jen Collado - Chief Complaint neck pain worsening x 3 days - History of Present Illness Patient is a 69-year-old male with a past medical his significant for chronic neck and back pain presenting to the ER at [facility] yesterday morning with chief complaints of increasing pain in his neck area that been getting worse for the last 3 days before presentation to the hospital patient denies having any trauma pain has been described to be sharp intensity almost 70 8 out of 10 and some radiation of the pain into the left arm denies weakness to the left arm has been denies having any fever or any chills no chest pain shortness with cough no abdominal pain or any diarrhea with the symptom the patient has been evaluated by the ER physician on arrival to the ER the patient has been afebrile and no fever has been recorded since the patient has been admitted to the hospital patient did have white count of 15.5 with a sed rate of 83 and a CRP of 248 patient did have a creatinine of 2.19 patient did have a cervical spine CT which shows multilevel spondylitic changes with slight kyphotic curvature significant sclerosis and C5-6 disc correlate to rule out chronic discitis patient subsequently did have a cervical spine MRI which was considered to be nondiagnostic because of severe motion artifact however did shows multilevel severe degenerative disc disease with disc herniation and disc osteophyte complex resulting in spinal cord compression and severe spinal stenosis that does not appear to be high signal within the disc space and to 2 images at C5-6 could be more likely discogenic patient has been evaluated by spine surgery and the patient has been started on steroids he was also started on Rocephin with concern for possible chronic discitis infectious disease was consulted for further management of antibiotic therapy Review of Systems Positive point has been mentioned in HPI rest of the systems are negative Past Medical History Past Medical History: Coronary Artery Disease (CAD), Chest Pain / Angina, Heart Failure, COPD, GERD/Reflux, Hyperlipidemia, Hypertension, Osteoarthritis (OA), Pneumonia, Prostate Disorder, Respiratory Disorder, Sleep Apnea/CPAP/BIPAP Additional Past Medical History / Comment(s): Spondylolsis, cervical and low back pain, DDD, chronic respiratory failure, CALLI with Cpap/O2 at 4L/NC at HS, nonsustained vtach, TIAs, small vessel disease, IDDM type II, diverticular disea se, colon polyps-benign, sinus problems, seasonal allergies History of Any Multi-Drug Resistant Organisms: None Reported Past Surgical History: Back Surgery, Heart Catheterization With Stent, Joint Replacement, Orthopedic Surgery Additional Past Surgical History / Comment(s): Bilateral knee arthroscopies, total L knee arthroplasty, R total shoulder arthroplasty, L hand injury with repair, PCI with 3 stents, colonoscopies/polypectomies, lumbar epidural injections, bilateral cataract removals/lens implants. Past Anesthesia/Blood Transfusion Reactions: No Reported Reaction Additional Past Anesthesia/Blood Transfusion Reaction / Comm: STATES "HAD A HARD TIME WITH BREATHING POST OP" Date of Last Stent Placement:: 2009 Smoking Status: Former smoker - Past Family History Father Family Medical History: CVA/TIA, Hyperlipidemia, Hypertension Mother Family Medical History: Hypertension Medications and Allergies Home Medications Medication Instructions Recorded Confirmed Type Nitroglycerin Sl Tabs [Nitrostat] 0.4 mg SUBLINGUAL Q5M PRN 03/09/14 09/03/19 History Omeprazole [PriLOSEC] 20 mg PO HS 03/09/14 09/03/19 History Atorvastatin [Lipitor] 80 mg PO DAILY 05/08/15 09/03/19 History Tamsulosin HCl [Flomax] 0.4 mg PO HS 10/09/16 09/03/19 History Fluticasone/Vilanterol [Breo 1 puff INHALATION RT-DAILY 03/12/18 09/03/19 History Ellipta 100-25 Mcg Inhaler] Potassium Chloride ER [K-Dur 20] 20 meq PO BID #0 03/15/18 09/03/19 Rx Insulin Glargine [Lantus] 30 unit SQ HS 03/25/18 09/03/19 History methylPREDNISolone [Medrol] 4 mg PO DAILY 05/04/19 09/03/19 History Aspirin 325 mg PO DAILY 09/02/19 09/03/19 History Furosemide [Lasix] 80 mg PO DAILY 09/02/19 09/03/19 History Glimepiride [Amaryl] 2 mg PO AC-BRKFST 09/02/19 09/03/19 History Ipratropium-Albuterol Nebulize 3 ml INHALATION RT-QID 09/02/19 09/03/19 History [Duoneb 0.5 mg-3 mg/3 ml Soln] Meloxicam 15 mg PO DAILY 09/02/19 09/03/19 History Metolazone [Zaroxolyn] 2.5 mg PO Q48H 09/02/19 09/03/19 History Metoprolol Tartrate 25 mg PO BID 09/02/19 09/03/19 History Pramipexole Di-HCl [Mirapex] 1 mg PO DAILY 09/02/19 09/03/19 History traMADol HCL 50 mg PO DAILY PRN 09/02/19 09/03/19 History Allergies Allergy/AdvReac Type Severity Reaction Status Date / Time prednisone AdvReac "MADE ME Verified 09/03/19 06:18 VERY ANGRY" Physical Exam Vitals: Vital Signs Temp Pulse Pulse Resp BP Pulse Ox 09/04/19 11:41 92 09/04/19 11:31 92 09/04/19 08:08 95 09/04/19 07:56 94 94 L 09/04/19 05:16 98.9 F 83 20 155/65 94 L 09/03/19 21:18 99 F 109 H 22 133/63 92 L 09/03/19 20:11 98 09/03/19 19:59 96 09/03/19 15:57 95 20 09/03/19 15:16 96 09/03/19 15:07 94 09/03/19 15:00 99.3 F 98 20 121/57 94 L Intake and Output 09/03/19 09/04/19 09/04/19 22:59 06:59 14:59 Other: Voiding Method Toilet Toilet Toilet # Voids 1 1 GENERAL DESCRIPTION: Elderly male up in bed, no distress. No tachypnea or accessory muscle of respiration use. HEENT: Shows Pallor , no scleral icterus. Oral mucous membrane is dry. NECK: Trachea central, no thyromegaly. LUNGS: Unlabored breathing. Decreased breath sound at the base. No wheeze or crackle. HEART: S1, S2, regular rate and rhythm. ABDOMEN: Soft, no tenderness , guarding or rigidity EXTREMITIES: No edema of feet. SKIN: No rash, no masses palpable. SPINE: Cervical spine area currently with no swelling no redness no point tenderness NEUROLOGICAL: The patient is awake, alert, oriented x3, mood and affect normal. Results CBC & Chem 7: 09/04/19 06:17 09/05/19 06:07 Labs: Abnormal Lab Results - Last 24 Hours (Table) 09/03/19 09/03/19 09/04/19 Range/Units 17:20 21:39 06:17 WBC 15.9 H (3.8-10.6) k/uL RBC 3.99 L (4.30-5.90) m/uL Hgb 12.8 L (13.0-17.5) gm/dL Hct 37.7 L (39.0-53.0) % Neutrophils # 13.9 H (1.3-7.7) k/uL Lymphocytes # 0.9 L (1.0-4.8) k/uL Sodium (137-145) mmol/L Potassium (3.5-5.1) mmol/L Chloride (98-107) mmol/L Carbon Dioxide (22-30) mmol/L BUN (9-20) mg/dL Creatinine (0.66-1.25) mg/dL Glucose (74-99) mg/dL POC Glucose (mg/dL) 117 H 155 H (75-99) mg/dL 09/04/19 Range/Units 06:17 WBC (3.8-10.6) k/uL RBC (4.30-5.90) m/uL Hgb (13.0-17.5) gm/dL Hct (39.0-53.0) % Neutrophils # (1.3-7.7) k/uL Lymphocytes # (1.0-4.8) k/uL Sodium 132 L (137-145) mmol/L Potassium 3.1 L (3.5-5.1) mmol/L Chloride 91 L (98-107) mmol/L Carbon Dioxide 31 H (22-30) mmol/L BUN 75 H (9-20) mg/dL Creatinine 2.32 H (0.66-1.25) mg/dL Glucose 100 H (74-99) mg/dL POC Glucose (mg/dL) (75-99) mg/dL Assessment and Plan Assessment: -patient presented to the hospital with worsening pain to the neck area in this patient who did have a history of chronic neck pain, with no history of any trauma patient with no fever no chills no point tenderness to the cervical spine area CT was suspicious for a chronic discitis at C5-6 however the MRI has not been suspicious for discitis though there was motion artifact and the patient clinically not behaving as a discitis, even if it is discitis we need to establish microbiological diagnosis for more effective antibiotic therapy (1) Leukocytosis Current Visit: Yes Status: Acute Code(s): D72.829 - ELEVATED WHITE BLOOD CELL COUNT, UNSPECIFIED SNOMED Code(s): 378788459 (2) Neck pain Current Visit: Yes Status: Acute Code(s): M54.2 - CERVICALGIA SNOMED Code(s): 68352393 Plan: 1-blood cultures x2 stat 2-discontinue Rocephin 3-we will discuss further with the spine surgery need for repeat MRI of the cervical spine versus CT-guided aspirate of this area for cultures 4-keeping the patient off antibiotic as the patient does not look toxic or septic and will increase the yield of any cultures in the next day or 2, plan of care was discussed with the admitting physician We will follow on clinical condition and cultures to further adjust medication if needed Thank you for this consultation we will follow the patient along with you
--- NOTE | 2019-09-05 11:24 | P.PN ---
Subjective Progress Note Date: 09/05/19 Principal diagnosis: Intractable pain This is a very pleasant 69-year-old gentleman who follows with Dr. Keene is his primary care provider. He has a history of hypertension, hyperlipidemia, GERD, diastolic congestive heart failure, coronary artery disease, degenerative joint disease, obesity, obstructive sleep apnea maintained on CPAP in the outpatient setting. He also has a history of chronic tobacco dependence and chronic obstructive pulmonary disease and follows with Dr. Chang in our office for the same. He does wear his CPAP nightly. He has oxygen at 4 L at night as well. He presented here to the emergency room yesterday for acute on chronic neck pain radiating down to his left arm with significant left shoulder pain. His pain was uncontrolled with his outpatient medication. Computed tomography scan of the cervical spine reveals multilevel spondylotic changes with slight kyphotic curvature. There is significant sclerosis at C5-6 with chronic discitis. No acute fracture. MRI of the neck revealed severe motion artifact and nearly nondiagnostic assessment. There is multilevel severe degenerative disc disease with disc herniations and disc osteophyte complex resulting in spinal cord compression and severe spinal stenosis and bilateral foramen encroachment. Nondiagnostic for discitis or osteomyelitis. Recommended repeating MRI with sedation. He has been seen and evaluated by orthopedics. They're recommending epidural steroid injections per anesthesia. May require surgical intervention. Chest x-ray reveals bibasilar scarring/atelectasis. No acute pulmonary process. He is having complaints of shortness of breath cough and congestion and we are consulted for the same. He is seen in the regular medical floor. Currently sitting up at the bedside. Awake and alert in no acute distress. He is maintaining O2 saturation the mid 90s on 2 L/m per nasal cannula. He's been afebrile. White count 15.9. Hemoglobin 12.8. Sodium 132. Potassium 3.1. Bicarb 31. Creatinine 2.32. He's been initiated on Symbicort, DuoNeb inhalations, IV Solu-Medrol. Lidoderm patch to the lower back. Morphine for pain control. The patient is seen today 09/05/2019 in follow-up on the regular medical floor. He is awake and alert in no acute distress. He is doing quite a bit better today compared to yesterday. His pain is better controlled. Currently on morphine, [place], Lidoderm, tramadol. He is breathing a bit easier today as well. He remains on Symbicort, DuoNeb inhalations, IV Solu-Medrol and IV diuretics. He is utilizing his home CPAP. Currently on 2 L nasal cannula maintaining O2 saturations in the 90s. Sodium 132. Potassium 3.5. Bicarb 27. Creatinine 2.37. Ultrasound of the kidneys revealed no evidence of hydronephrosis, no mass, no obstruction. Objective - Vital Signs Vital signs: Vital Signs Temp 97.7 F 09/05/19 05:23 Pulse 95 09/05/19 08:27 Resp 19 09/05/19 05:23 BP 147/79 09/05/19 05:23 Pulse Ox 94 L 09/05/19 08:14 Intake & Output 09/04/19 09/05/19 09/05/19 18:59 06:59 18:59 Intake Total 800 550 Output Total 357 Balance 443 550 Weight 106.8 kg Intake: Oral 800 550 Output: Post Void Residual 357 Other: Voiding Method Toilet Toilet Toilet Urinal Urinal # Voids 2 1 - Exam GENERAL EXAM: Alert, morbidly obese, pleasant 69-year-old gentleman, on 2 L nasal cannula comfortable in no apparent distress. HEAD: Normocephalic. EYES: Normal reaction of pupils, equal size. NOSE: Clear with pink turbinates. THROAT: No erythema or exudates. NECK: Significant limited to range of motion CHEST: No chest wall deformity. LUNGS: Equal air entry with bilateral end expiratory wheeze, diminished. CVS: S1 and S2 normal with no audible murmur, regular rhythm. ABDOMEN: No hepatosplenomegaly, normal bowel sounds, no guarding or rigidity. SPINE: Significant discomfort and mild kyphosis SKIN: No rashes CENTRAL NERVOUS SYSTEM: No focal deficits, tone is normal in all 4 extremities. EXTREMITIES: Pain in the left shoulder due to cervical neck pain There is trace peripheral edema. No clubbing, no cyanosis. Peripheral pulses are intact. - Labs CBC & Chem 7: 09/04/19 06:17 09/05/19 06:07 Labs: Abnormal Lab Results - Last 24 Hours (Table) 09/04/19 09/04/19 09/04/19 Range/Units 12:02 16:20 16:40 Sodium (137-145) mmol/L Chloride (98-107) mmol/L BUN (9-20) mg/dL Creatinine (0.66-1.25) mg/dL Glucose (74-99) mg/dL POC Glucose (mg/dL) 174 H 243 H (75-99) mg/dL Urine Protein Trace H (Negative) 09/04/19 09/05/19 09/05/19 Range/Units 20:05 06:07 07:14 Sodium 132 L (137-145) mmol/L Chloride 92 L (98-107) mmol/L BUN 82 H (9-20) mg/dL Creatinine 2.37 H (0.66-1.25) mg/dL Glucose 223 H (74-99) mg/dL POC Glucose (mg/dL) 350 H 231 H (75-99) mg/dL Urine Protein (Negative) Assessment and Plan Assessment: 1 Intractable cervical neck pain, lumbar pain secondary to severe stenosis and degenerative disc disease 2 Acute exacerbation of chronic obstructive pulmonary disease 3 Obstructive sleep apnea utilizing CPAP in the outpatient setting 4 Morbid obesity 5 History of chronic tobacco dependence 6 Degenerative disc disease 7 Coronary artery disease with previous stent placement 8 Hypertension 9 Hyperlipidemia 10 Degenerative joint disease with previous right shoulder replacement total left knee replacement Plan: The patient was seen and evaluated by Dr. Chang He is improved today compared to yesterday Continue Symbicort, bronchodilators, steroids, diuretics Repeat chest x-ray in a.m. Orthopedic following for acute on chronic pain We'll continue to follow and make further recommendations based on his clinical status I, the cosigning physician, performed a history & physical examination of the patient. Lungs sounds bilateral end expiratory wheeze, diminished. Maintaining good O2 saturations in the 90s on 2 L/m per nasa. I discussed the assessment and plan of care with my nurse practitioner, Judi Crawford. I attest to the above note as dictated by her.
[2019-09-05 11:30] LABS: Glucose,Whole Blood 259 mg/dL (75-99)
--- NOTE | 2019-09-05 14:13 | P.PN ---
Subjective Progress Note Date: 09/05/19 Follow-up for acute kidney injury Objective - Vital Signs Vital signs: Vital Signs Temp 97.8 F 09/05/19 11:30 Pulse 96 09/05/19 11:43 Resp 21 09/05/19 11:30 BP 121/65 09/05/19 11:30 Pulse Ox 93 L 09/05/19 11:30 Intake & Output 09/04/19 09/05/19 09/05/19 18:59 06:59 18:59 Intake Total 800 550 Output Total 357 Balance 443 550 Weight 106.8 kg Intake: Oral 800 550 Output: Post Void Residual 357 Other: Voiding Method Toilet Toilet Toilet Urinal Urinal # Voids 2 1 2 - Exam Lying comfortable in the bed no acute distress. S1-S2 heard Lungs clear Edema - Labs CBC & Chem 7: 09/04/19 06:17 09/05/19 12:39 Labs: Abnormal Lab Results - Last 24 Hours (Table) 09/04/19 09/04/19 09/04/19 Range/Units 16:20 16:40 20:05 Sodium (137-145) mmol/L Potassium (3.5-5.1) mmol/L Chloride (98-107) mmol/L BUN (9-20) mg/dL Creatinine (0.66-1.25) mg/dL Glucose (74-99) mg/dL POC Glucose (mg/dL) 243 H 350 H (75-99) mg/dL Urine Protein Trace H (Negative) 09/05/19 09/05/19 09/05/19 Range/Units 06:07 07:14 11:29 Sodium 132 L (137-145) mmol/L Potassium (3.5-5.1) mmol/L Chloride 92 L (98-107) mmol/L BUN 82 H (9-20) mg/dL Creatinine 2.37 H (0.66-1.25) mg/dL Glucose 223 H (74-99) mg/dL POC Glucose (mg/dL) 231 H 259 H (75-99) mg/dL Urine Protein (Negative) 09/05/19 Range/Units 12:39 Sodium (137-145) mmol/L Potassium 3.3 L (3.5-5.1) mmol/L Chloride (98-107) mmol/L BUN (9-20) mg/dL Creatinine (0.66-1.25) mg/dL Glucose (74-99) mg/dL POC Glucose (mg/dL) (75-99) mg/dL Urine Protein (Negative) Microbiology - Last 24 Hours (Table) 09/04/19 11:39 Blood Culture - Preliminary Blood No Growth after 24 hours 09/04/19 11:49 Blood Culture - Preliminary Blood No Growth after 24 hours Assessment and Plan Assessment: #1 acute kidney injury suspect cardiorenal with diastolic dysfunction and tubulointerstitial nephritis from NSAID use. #2 diastolic dysfunction #3 volume overload #4 hypokalemia with metabolic alkalosis secondary to diuretics #5 hypertension with chronic kidney disease #6 chronic kidney disease with a baseline creatinine of 0.8-1.3 MG per DL. Plan: #1 Continue with Lasix 40 mg IV 3 times a day,[FENa 0.1% and FeUrea of 12% consistent with Prerenal from CRS] #2 no urinary retention on bladder scan. But monitor strict ins and outs. #3 avoid nephrotoxic agents and hypotensive episodes #4 labs in the morning
[2019-09-05 16:38] LABS: Basophils % (A) 0 %; Eosinophils # (A) 0.1 k/uL (0-0.7); Eosinophils % (A) 0 %; HCT 36.8 % (39.0-53.0); HGB 12.1 gm/dL (13.0-17.5); Lymphocytes # (A) 0.6 k/uL (1.0-4.8); Lymphocytes % (A) 3 %; MCH 31.2 pg (25.0-35.0); MCHC 32.9 g/dL (31.0-37.0); Mean Platelet Volume 9.2; Monocytes # (A) 0.7 k/uL (0-1.0); Monocytes % (A) 3 %; Neutrophils # (A) 17.5 k/uL (1.3-7.7); Neutrophils % (A) 92 %; Platelet Count 225 k/uL (150-450); RBC 3.87 m/uL (4.30-5.90); RDW 14.1 % (11.5-15.5)
--- NOTE | 2019-09-05 16:45 | P.PN ---
Subjective Progress Note Date: 09/05/19 Principal diagnosis: Cervical neck pain, DDD, spondylosis, radiculopathy Patient was seen yesterday by Dr. Grier in consultation for neck pain and possible radiculopathy. Pain management consult from anesthesia was requested. They are to see him tomorrow. He states his symptoms are improved today. He has neck pain and left shoulder pain. No symptoms below left shoulder including numbness or tingling. No new complaints. Objective - Vital Signs Vital signs: Vital Signs Temp 97.7 F 09/05/19 05:23 Pulse 95 09/05/19 08:27 Resp 19 09/05/19 05:23 BP 147/79 09/05/19 05:23 Pulse Ox 94 L 09/05/19 08:14 Intake & Output 09/04/19 09/05/19 09/05/19 18:59 06:59 18:59 Intake Total 800 550 Output Total 357 Balance 443 550 Weight 106.8 kg Intake: Oral 800 550 Output: Post Void Residual 357 Other: Voiding Method Toilet Toilet Toilet Urinal Urinal # Voids 2 1 - Exam Reduced ROM of cervical spine limited due to stiffness and discomfort. There is paraspinal spasm. He has pain with active and passive ROM of the left shoulder but otherwise appears to be neurologically intact at C5-T1 bilaterally with m yotomes and dermatomes. There is no hyperreflexia and negative Neal's. 2+ radial pulses present. Negative clonus NVI. - Constitutional General appearance: Present: no acute distress - Labs CBC & Chem 7: 09/05/19 16:21 09/05/19 12:39 Labs: Abnormal Lab Results - Last 24 Hours (Table) 09/04/19 09/04/19 09/04/19 Range/Units 12:02 16:20 16:40 Sodium (137-145) mmol/L Chloride (98-107) mmol/L BUN (9-20) mg/dL Creatinine (0.66-1.25) mg/dL Glucose (74-99) mg/dL POC Glucose (mg/dL) 174 H 243 H (75-99) mg/dL Urine Protein Trace H (Negative) 09/04/19 09/05/19 09/05/19 Range/Units 20:05 06:07 07:14 Sodium 132 L (137-145) mmol/L Chloride 92 L (98-107) mmol/L BUN 82 H (9-20) mg/dL Creatinine 2.37 H (0.66-1.25) mg/dL Glucose 223 H (74-99) mg/dL POC Glucose (mg/dL) 350 H 231 H (75-99) mg/dL Urine Protein (Negative) Assessment and Plan (1) Neck pain Narrative/Plan: He will continue conservative care and await pain management recommendations and results. If not improved he may with Dr. Grier for possible further interventions and recommendations. Current Visit: Yes Status: Acute Priority: Medium Code(s): M54.2 - CERVICALGIA SNOMED Code(s): 78760571 Time with Patient: Less than 30
[2019-09-05 17:15] LABS: Glucose,Whole Blood 286 mg/dL (75-99)
[2019-09-05] MEDS ORDERED: POTASSIUM CHLORIDE ER 20 MEQ TAB.ER PO SCH (18:00)
[2019-09-05 19:54] LABS: Glucose,Whole Blood 290 mg/dL (75-99)
[2019-09-05] MEDS: TAMSULOSIN 0.4 MG CAP.ER.24H PO SCH (20:22)
[2019-09-05] MEDS: PANTOPRAZOLE 40 MG TABLET PO SCH (20:23)
[2019-09-05] MEDS: INSULIN DETEMIR (LEVEMIR) 100 UNIT/ML SYR SQ SCH (20:24)
--- NOTE | 2019-09-06 01:14 | P.PN ---
Subjective Progress Note Date: 09/04/19 Principal diagnosis: Acute on chronic intractable neck pain with tingling sensation in the left arm EMEKA Patient is a 69-year-old male with a long history of coronary disease with stent placement, chronic CHF, obstructive sleep apnea on CPAP and oxygen 4 L at night, previous history of smoking, COPD, cervical spondylosis and chronic low back pain, chronic hypoxic respiratory failure and history of multiple TIAs, diabetes type 2 and morbid obesity presents to ER with complaints of neck pain radiating to the left arm and tingling sensation. Patient says that pain is getting worse for the past 3 days. Patient initially developed neck pain radiated down to his left. Patient states that he was in the bed for 2 days but the pain persisted and is made him come to ER. Patient was given muscle relaxants and narcotic pain medications in the ER which seemed to improve his pain. CT cervical spine showed multilevel spondylotic changes with slight kyphotic curvature. There is significant sclerosis MD C5-C6 disc could correlate to some chronic discitis. No acute fracture seen. Laboratory data showed WBC 15.5, hemoglobin 13.7, platelets 200 Neutrophils 13.2 and ESR 83 and C-reactive protein 248 Sodium 133, potassium 3.0, chloride 88, bicarb is 31, BUN 75 and creatinine 2.19 09/03 Patient is currently sitting on the side of the bed. Neck pain and back pain is improved with medications. Otherwise patient is having worsening shortness of breath. No complaints of chest pain. Does have some increased leg swelling as well. Renal function showed BUN 75 and creatinine level 2.32 Sodium 132, potassium 3.1 and bicarb is 31 WBC is 15.9. Patient had MRI of the cervical spine which showed nearly nondiagnostic assessment due to severe motion artifact. There is multilevel severe degenerative disc disease with disc herniations and disc osteophyte complex re sulting in spinal cord compression and severe spinal stenosis and bilateral foraminal encroachment. Orthopedic surgery is following. Due to worsening renal function nephrology was consulted. Pulmonary is on board. Patient is afebrile. No complaints of nausea vomiting or abdominal pain. Current medications reviewed. Objective - Vital Signs Vital signs: Vital Signs Temp 98.9 F 09/04/19 05:16 Pulse 95 09/04/19 08:08 Resp 20 09/04/19 05:16 BP 155/65 09/04/19 05:16 Pulse Ox 94 L 06/13/20 07:56 Intake & Output 09/03/19 09/04/19 09/04/19 18:59 06:59 18:59 Intake Total 0 Balance 0 Weight 104.326 kg Intake: Oral 0 Other: Voiding Method Toilet Toilet Toilet # Voids 2 1 - Exam PHYSICAL EXAMINATION: Patient is lying in the bed comfortably, mild distress with pain, awake alert and oriented.. HEENT: Normocephalic. Neck is supple. Pupils reactive. Nostrils clear. Oral cavity is moist. Ears reveal no drainage. Neck reveals no JVD, carotid bruits, or thyromegaly. CHEST EXAMINATION: Trachea is central. Symmetrical expansion. bibasilar diminished air entry, Lung kimball clear to auscultation and percussion. Bilateral surgical site is bandaged. CARDIAC: Normal S1, S2 with no gallops. No murmurs ABDOMEN: Soft. Bowel sounds normal. No organomegaly. No abdominal bruits. Extremities: trace b/l edema. No clubbing or cyanosis Neurologically awake, alert, oriented x3 with well-coordinated movements. No focal deficits noted Skin: No rash or skin lesions. Psychiatric: Coperative. Nonsuicidal Musculoskeletal: No joint swelling or deformity. Normal range of motion. - Labs CBC & Chem 7: 09/05/19 16:21 09/05/19 16:21 Labs: Abnormal Lab Results - Last 24 Hours (Table) 09/03/19 09/03/19 09/03/19 Range/Units 12:07 17:20 21:39 WBC (3.8-10.6) k/uL RBC (4.30-5.90) m/uL Hgb (13.0-17.5) gm/dL Hct (39.0-53.0) % Neutrophils # (1.3-7.7) k/uL Lymphocytes # (1.0-4.8) k/uL Sodium (137-145) mmol/L Potassium (3.5-5.1) mmol/L Chloride (98-107) mmol/L Carbon Dioxide (22-30) mmol/L BUN (9-20) mg/dL Creatinine (0.66-1.25) mg/dL Glucose (74-99) mg/dL POC Glucose (mg/dL) 136 H 117 H 155 H (75-99) mg/dL 09/04/19 09/04/19 Range/Units 06:17 06:17 WBC 15.9 H (3.8-10.6) k/uL RBC 3.99 L (4.30-5.90) m/uL Hgb 12.8 L (13.0-17.5) gm/dL Hct 37.7 L (39.0-53.0) % Neutrophils # 13.9 H (1.3-7.7) k/uL Lymphocytes # 0.9 L (1.0-4.8) k/uL Sodium 132 L (137-145) mmol/L Potassium 3.1 L (3.5-5.1) mmol/L Chloride 91 L (98-107) mmol/L Carbon Dioxide 31 H (22-30) mmol/L BUN 75 H (9-20) mg/dL Creatinine 2.32 H (0.66-1.25) mg/dL Glucose 100 H (74-99) mg/dL POC Glucose (mg/dL) (75-99) mg/dL Assessment and Plan Assessment: Acute on chronic intractable neck pain with tingling sensation in the left arm. Ruled out cervical cord compression. Multilevel spondylitic changes and significant C5-C6 disc sclerosis Chronic discitis Elevated ESR and CRP levels and neutrophilic leukocytosis Hypovolemic hyponatremia Hypokalemia Acute kidney injury likely Cardiorenal and volume overload. Creatinine 2.19. Baseline 0.7 Chronic CHF with diastolic dysfunction EF 55 to 50% Coronary artery disease with history of stent placement x3 Hypertension Hyperlipidemia Obstructive sleep apnea on CPAP at home and oxygen 4 L via nasal cannula at at bedtime Chronic hypoxic respiratory failure Chronic cervical and low back pain History of multiple TIAs History of non-sustained V. tach. Previous history of smoking morbid Obesity with BMI 36 DVT Prophylaxis. Plan: Patient will be continued on pain management with narcotic IV and Flexeril. Replace potassium. Was continued on gentle hydration. IV fluids stopped at this time. Patient was started IV Lasix due to cardiorenal. CTA of the cervical spine showed chronic discitis. With leukocytosis, elevated ESR and CRP patient will be started on antibiotics in the form of ceftriaxone and ID service was consulted. Unlikely acute discitis. Dced abx. Orthopedics is on board. MRI of the cervical spine was done. Patient was started IV steroids. Follow-up closely and further recommendations based on clinical course. Prognosis is guarded at this time. Time with Patient: Greater than 30
--- NOTE | 2019-09-06 01:17 | P.PN ---
Subjective Progress Note Date: 09/05/19 Principal diagnosis: Acute on chronic intractable neck pain with tingling sensation in the left arm EMEKA Patient is a 69-year-old male with a long history of coronary disease with stent placement, chronic CHF, obstructive sleep apnea on CPAP and oxygen 4 L at night, previous history of smoking, COPD, cervical spondylosis and chronic low back pain, chronic hypoxic respiratory failure and history of multiple TIAs, diabetes type 2 and morbid obesity presents to ER with complaints of neck pain radiating to the left arm and tingling sensation. Patient says that pain is getting worse for the past 3 days. Patient initially developed neck pain radiated down to his left. Patient states that he was in the bed for 2 days but the pain persisted and is made him come to ER. Patient was given muscle relaxants and narcotic pain medications in the ER which seemed to improve his pain. CT cervical spine showed multilevel spondylotic changes with slight kyphotic curvature. There is significant sclerosis MD C5-C6 disc could correlate to some chronic discitis. No acute fracture seen. Laboratory data showed WBC 15.5, hemoglobin 13.7, platelets 200 Neutrophils 13.2 and ESR 83 and C-reactive protein 248 Sodium 133, potassium 3.0, chloride 88, bicarb is 31, BUN 75 and creatinine 2.19 09/03 Patient is currently sitting on the side of the bed. Neck pain and back pain is improved with medications. Otherwise patient is having worsening shortness of breath. No complaints of chest pain. Does have some increased leg swelling as well. Renal function showed BUN 75 and creatinine level 2.32 Sodium 132, potassium 3.1 and bicarb is 31 WBC is 15.9. Patient had MRI of the cervical spine which showed nearly nondiagnostic assessment due to severe motion artifact. There is multilevel severe degenerative disc disease with disc herniations and disc osteophyte complex re sulting in spinal cord compression and severe spinal stenosis and bilateral foraminal encroachment. Orthopedic surgery is following. Due to worsening renal function nephrology was consulted. Pulmonary is on board. Patient is afebrile. No complaints of nausea vomiting or abdominal pain. 09/05/2019 Patient is currently sitting on the side of the bed. Shortness of breath is improved compared to yesterday. Still having bilateral lower extremity swelling. Continued on IV diuresis. Creatinine level is 2.37 today. Ultrasound of the kidneys showed no evidence of hydronephrosis. No mass or obst ruction. Postvoid residual was ordered. Patient is being continued on IV steroids breathing treatments and oxygen therapy at 2 L currently. Follow-up repeat CBC and BMP tomorrow. Neck pain is controlled with [place] morphine and Lidoderm patch. Patient has been afebrile. Current medications reviewed. Objective - Vital Signs Vital signs: Vital Signs Temp 97.8 F 09/05/19 11:30 Pulse 92 09/05/19 20:30 Resp 21 09/05/19 11:30 BP 121/65 09/05/19 11:30 Pulse Ox 93 L 09/05/19 11:30 Intake & Output 09/05/19 09/05/19 09/06/19 06:59 18:59 06:59 Intake Total 550 Output Total 500 Balance 550 -500 Weight 106.8 kg Intake: Oral 550 Output: Urine 500 Other: Voiding Method Toilet Toilet Urinal # Voids 1 1 - Exam PHYSICAL EXAMINATION: Patient is lying in the bed comfortably, mild distress with pain, awake alert and oriented.. HEENT: Normocephalic. Neck is supple. Pupils reactive. Nostrils clear. Oral cavity is moist. Ears reveal no drainage. Neck reveals no JVD, carotid bruits, or thyromegaly. CHEST EXAMINATION: Trachea is central. Symmetrical expansion. bibasilar diminished air entry, Lung kimball clear to auscultation and percussion. Bilateral surgical site is bandaged. CARDIAC: Normal S1, S2 with no gallops. No murmurs ABDOMEN: Soft. Bowel sounds normal. No organomegaly. No abdominal bruits. Extremities: trace b/l edema. No clubbing or cyanosis Neurologically awake, alert, oriented x3 with well-coordinated movements. No focal deficits noted Skin: No rash or skin lesions. Psychiatric: Coperative. Nonsuicidal Musculoskeletal: No joint swelling or deformity. Normal range of motion. - Labs CBC & Chem 7: 09/05/19 16:21 09/05/19 16:21 Labs: Abnormal Lab Results - Last 24 Hours (Table) 09/05/19 09/05/19 09/05/19 Range/Units 06:07 07:14 11:29 WBC (3.8-10.6) k/uL RBC (4.30-5.90) m/uL Hgb (13.0-17.5) gm/dL Hct (39.0-53.0) % Neutrophils # (1.3-7.7) k/uL Lymphocytes # (1.0-4.8) k/uL Sodium 132 L (137-145) mmol/L Potassium (3.5-5.1) mmol/L Chloride 92 L (98-107) mmol/L BUN 82 H (9-20) mg/dL Creatinine 2.37 H (0.66-1.25) mg/dL Glucose 223 H (74-99) mg/dL POC Glucose (mg/dL) 231 H 259 H (75-99) mg/dL 09/05/19 09/05/19 09/05/19 Range/Units 12:39 16:21 17:14 WBC 19.0 H (3.8-10.6) k/uL RBC 3.87 L (4.30-5.90) m/uL Hgb 12.1 L (13.0-17.5) gm/dL Hct 36.8 L (39.0-53.0) % Neutrophils # 17.5 H (1.3-7.7) k/uL Lymphocytes # 0.6 L (1.0-4.8) k/uL Sodium (137-145) mmol/L Potassium 3.3 L (3.5-5.1) mmol/L Chloride (98-107) mmol/L BUN (9-20) mg/dL Creatinine (0.66-1.25) mg/dL Glucose (74-99) mg/dL POC Glucose (mg/dL) 286 H (75-99) mg/dL 09/05/19 Range/Units 19:52 WBC (3.8-10.6) k/uL RBC (4.30-5.90) m/uL Hgb (13.0-17.5) gm/dL Hct (39.0-53.0) % Neutrophils # (1.3-7.7) k/uL Lymphocytes # (1.0-4.8) k/uL Sodium (137-145) mmol/L Potassium (3.5-5.1) mmol/L Chloride (98-107) mmol/L BUN (9-20) mg/dL Creatinine (0.66-1.25) mg/dL Glucose (74-99) mg/dL POC Glucose (mg/dL) 290 H (75-99) mg/dL Microbiology - Last 24 Hours (Table) 09/04/19 11:39 Blood Culture - Preliminary Blood No Growth after 24 hours 09/04/19 11:49 Blood Culture - Preliminary Blood No Growth after 24 hours Assessment and Plan Assessment: Acute on chronic intractable neck pain with tingling sensation in the left arm. Ruled out cervical cord compression. Multilevel spondylitic changes and significant C5-C6 disc sclerosis Chronic discitis Elevated ESR and CRP levels and neutrophilic leukocytosis Hypovolemic hyponatremia Hypokalemia Acute kidney injury likely Cardiorenal and volume overload. Creatinine 2.19. Baseline 0.7 Chronic CHF with diastolic dysfunction EF 55 to 50% Coronary artery disease with history of stent placement x3 Hypertension Hyperlipidemia Obstructive sleep apnea on CPAP at home and oxygen 4 L via nasal cannula at at bedtime Chronic hypoxic respiratory failure Chronic cervical and low back pain History of multiple TIAs History of non-sustained V. tach. Previous history of smoking morbid Obesity with BMI 36 DVT Prophylaxis. Plan: Patient will be continued on pain management with narcotic IV and Flexeril. Replace potassium. Was continued on gentle hydration. IV fluids stopped at this time. Patient was started IV Lasix due to cardiorenal. CTA of the cervical spine showed chronic discitis. With leukocytosis, elevated ESR and CRP patient will be started on antibiotics in the form of ceftriaxone and ID service was consulted. Unlikely acute discitis. Dced abx. Orthopedics is on board. MRI of the cervical spine was done. Patient was started IV steroids. Follow-up closely and further recommendations based on clinical course. Prognosis is guarded at this time. Time with Patient: Greater than 30
--- NOTE | 2019-09-06 02:24 | PN ---
PROGRESS NOTE DATE OF SERVICE: 09/05/2019 REASON FOR FOLLOWUP: Abnormal CT neck with question of cervical discitis. INTERVAL HISTORY: The patient is currently afebrile. He is still complaining of pain to the neck area with some radiation to the left arm. Denies having any chest pain or shortness of breath or cough. No abdominal pain or diarrhea. PHYSICAL EXAMINATION: Blood pressure 119/61 with a pulse of 92, temperature 97.8. He is 94% on room air. General description is an elderly male up in the chair in no distress. EXAMINATION OF NECK: There is no swelling, no redness, no open wound or any drainage. LUNGS: Unlabored breathing, decreased intensity of breath sounds. No wheeze. HEART: S1, S2. Regular rate and rhythm. ABDOMEN: Soft, no tenderness. LABS: Hemoglobin is 12.1, white count 19,000. Blood culture has been negative. DIAGNOSTIC IMPRESSION AND PLAN: Patient admitted to the hospital with neck pain, examination of with no fever, possible degenerative arthritis. Clinically not behaving as discitis, currently being monitored off antibiotics. Blood cultures have been negative. We will discuss further with Ortho and need for any CT-guided aspirate and continue supportive care. MMODL / IJN: [id number] /
[2019-09-06] MEDS: HYDROcodone/APAP 5-325MG 1 EACH TAB PO PRN ×3 (03:19→19:50)
[2019-09-06 07:11] LABS: Glucose,Whole Blood 225 mg/dL (75-99)
[2019-09-06] MEDS: IPRATROPIUM-ALBUTEROL 3 ML NEB INHALATION SCH ×4 (07:28→19:53)
[2019-09-06] MEDS: SYMBICORT 80-4.5 MCG INHALER INHALATION SCH ×2 (07:28→19:53)
[2019-09-06] MEDS: INSULIN ASPART (NovoLOG) 100 UNIT/ML VIAL SQ SCH ×4 (07:34→21:18)
[2019-09-06] MEDS: GLIMEPIRIDE 2 MG TAB PO SCH (07:34)
[2019-09-06] MEDS: FUROSEMIDE 10 MG/ML 4 ML VIAL IV SCH ×3 (07:35→22:59)
[2019-09-06] MEDS: ATORVASTATIN 80 MG TAB PO SCH (07:36)
[2019-09-06] MEDS: LIDOCAINE 5% PATCH TOPICAL SCH (07:36)
[2019-09-06] MEDS: methylPREDNISolone SOD SUCCI 125 MG/2 ML VIAL IV SCH ×2 (07:37→21:18)
[2019-09-06] MEDS: SENNOSIDES 8.6 MG TAB PO SCH ×2 (07:38→21:20)
[2019-09-06] MEDS: PRAMIPEXOLE 1 MG TAB PO SCH (07:38)
[2019-09-06] MEDS: POTASSIUM CHLORIDE ER 20 MEQ TAB.ER PO SCH ×7 (07:38→22:58)
[2019-09-06] MEDS: METOPROLOL TARTRATE 25 MG TAB PO SCH ×2 (07:42→21:20)
[2019-09-06 07:53] LABS: Basophils % (A) 0 %; Eosinophils % (A) 0 %; HCT 38.6 % (39.0-53.0); HGB 12.4 gm/dL (13.0-17.5); Lymphocytes # (A) 0.6 k/uL (1.0-4.8); Lymphocytes % (A) 4 %; MCH 30.5 pg (25.0-35.0); MCV 95.2 fL (80.0-100.0); Mean Platelet Volume 9.6; Monocytes # (A) 0.6 k/uL (0-1.0); Monocytes % (A) 4 %; Neutrophils # (A) 14.7 k/uL (1.3-7.7); Neutrophils % (A) 91 %; Platelet Count 261 k/uL (150-450); RBC 4.06 m/uL (4.30-5.90); WBC 16.1 k/uL (3.8-10.6)
[2019-09-06 08:05] LABS: Albumin 3.5 g/dL (3.5-5.0); Potassium 3.3 mmol/L (3.5-5.1); Total Bilirubin 0.4 mg/dL (0.2-1.3); Total Protein 6.5 g/dL (6.3-8.2)
[2019-09-06] MEDS: ASPIRIN 325 MG TAB PO SCH (11:09)
[2019-09-06 11:58] LABS: Glucose,Whole Blood 286 mg/dL (75-99)
--- NOTE | 2019-09-06 12:52 | P.PN ---
Progress Note - Text Progress Note Date: 09/06/19 Orthopedic spine: History of present illness: Patient is a very pleasant 69-year-old male who is seen and examined at the bedside for follow-up evaluation regards to his cervical spine. Since being seen and examined yesterday, he has had improvement of his symptoms. His left arm pain and reduced range of motion has improved. He is able to perform better active range of motion of the left shoulder. Consultation has been place with pain management. He is currently waiting for that evaluation today. Patient does state at this time given his congestive heart failure he would like to continue working through conservative treatment before discussing the possibility of surgical intervention. He has continued to work through active range of motion of his cervical spine. He currently denies any upper extremity weakness bilaterally. Patient does have some chronic low back pain and has a lidocaine pain patch in place. Patient also admits to a history of gout at the right great toe 3 times over the past 18 months. He is not currently on any medication for gout. He currently has swelling and pain in his right foot and great toe. Medicine is planning for further consultation in this regard. Medicine is planning to obtain uric acid levels. Patient denies any injuries. He states his symptoms have been previously alleviated with steroid medication. Patient continues to receive methylprednisolone 80 mg IV every 12 hours without difficulty. Patient's other medical diagnoses include history of smoking, COPD, coronary artery disease with stent placement, chronic congestive heart failure, type 2 diabetes, morbid obesity, obstructive sleep apnea on CPAP, and chronic hypoxic respiratory failure with history of multiple TIAs. Patient has had MRI imaging of the cervical spine which is not suspicious for discitis. Physical exam: Patient is awake, alert, and oriented 3 Vital signs stable Good chest excursion with deep inspiration and expiration Examination of the cervical spine reveals skin is intact with no abrasions, lacerations, or bruises; no erythema, purulence or signs of infection Mild pain with palpation over the posterior cervical spine and trapezius bilaterally Adequate range of motion of the cervical spine with adequate flexion, extension, and bilateral rotation [employer] strength, thumb strength, interosseous strength, biceps strength, triceps strength, and shoulder strength positive sustained bilaterally Upper extremity strength 5/5 bilaterally except for some weakness with thumb extension on the right Hoffmans sign negative upper extremity bilaterally No signs or symptoms of DVT; no calf pain Assessment: Left upper extremity radiculopathy Cervicalgia Cervical stenosis at C4-5, C5-6, and C6-7 most significant at C4-5 and C5-6 Cervical degenerative disc disease at C3-4, C4-5, C5-6, and C6-7 with complete disc height loss at C5-6 Chronic low back pain History of smoking COPD Coronary artery disease with stent placement Chronic congestive heart failure Type 2 diabetes Morbid obesity Obstructive sleep apnea on CPAP Chronic hypoxic respiratory failure with history of multiple TIAs History of gout Plan: 1. Patient has been discussed in detail with Dr. Nickolas Grier. Patient has had improvement of his cervical pain and left upper extremity pain and reduced range of motion since yesterday. He continues to receive methylprednisolone 80 mg every 12 hours. Consultation has been placed with pain management. He is hoping to be seen and examined by pain management today. At this time, given the improvement of his symptoms overall and his other significant comorbidities, we will currently plan to continue conservative treatment at this time. Patient like to continue conservative treatment as he is worried about his congestive heart failure. If his symptoms are unable to be controlled conservatively, we did discuss he is a candidate for surgical intervention. He does have significant changes of his cervical spine most significant at C4-5, C5-6, and C6-7. The most likely proposed surgical intervention would be a C4-5, C5-6, and C6-7 anterior cervical decompression and fusion and possibly C3-4. Patient does state today he would like to be discharged home. At this time, patient will be cleared for discharge from an orthopedic spine standpoint. We did discuss we'll plan have him follow-up in the outpatient setting approximately 2-3 weeks for further evaluation. We'll discuss a plan of care proceeding forward at that time the pending on his progress with conservative treatment. 2. Patient will continue be seen in exam by medicine for treatment evaluation regards to his other medical diagnoses 3. Continue pain control medications as described 4. Patient currently waiting for consultation with pain management 5. Consultation is being placed by medicine for further evaluation of gout
--- NOTE | 2019-09-06 14:32 | CDI ---
Documentation Clarification Form Date: 09/06/2019 02:17:45 PM From: Stephanie Young Admit Date: 09/05/2019 02:49:00 PM Patient Name: Rogers Morley Visit Number: [id number] Discharge Date: ATTENTION: The Clinical Documentation Specialists (CDI) and [facility] Coding Staff appreciate your assistance in clarifying documentation. Please respond to the clarification below the line at the bottom and electronically sign. The CDI & [facility] Coding staff will review the response and follow-up if needed. Please note: Queries are made part of the Legal Health Record. If you have any questions, please contact the author of this message via ITS. Dr. Jen Collado Chronic CHF with diastolic dysfunction EF 55-50% Is documented in the H&P 09/02 History/Risk Factors: 69-year-old male presents to the ED with neck pain radiating to the left arm and tingling sensation. Medical history Chronic diastolic heart failure and DM. Clinical Indicators: 09/02 VS/Pulse OX: 120/76 101 98.3 18 93% ra 09/03 Chest X Ray: COPD, Bibasilar Atelectasis 09/03 Nephrology Consult Acute kidney injury suspect cardiorenal with diastolic dysfunction and tubulointerstitial nephritis from NSAID use. Treatment: 09/02 Lopressor 25mg PO BID, 09/03 Lasix 40mg Ivp Q 8Hr, In your professional opinion, can you please clarify the acuity and type of CHF if known? Acute on Chronic Diastolic Heart Failure Chronic Diastolic Heart Failure Unable to Determine Other, please specify (Last Revision: June 2017) Chronic Diastolic Heart Failure MTDD
--- NOTE | 2019-09-06 14:51 | PN ---
PROGRESS NOTE PULMONARY/CRITICAL CARE PROGRESS NOTE: DATE OF SERVICE: 09/06/2019 This is a 69-year-old gentleman who was initially seen for intractable back and neck pain. The patient apparently has severe stenosis as well as degenerative disk disease. In addition, he was having a COPD exacerbation. Currently, from the COPD standpoint, he is doing much better. He has not smoked in 10 years. States his breathing is much improved. He does carry with him a diagnosis of hypertension, hyperlipidemia, CAD with previous stent placement, degenerative disk disease, and morbid obesity. He also suffers from sleep apnea syndrome. Currently, he appears to be relatively stable, his temperature is 97.8, heart rate 88, respiratory rate 20, blood pressure 135/67 with mean of 89. A 2.5 L saturation is 97%. Appears in no acute distress. Sitting up at the bedside. HEENT: Examination is grossly unremarkable. Mucous membranes are moist. Nasal O2 noted. Neck is supple. Full range of motion. No adenopathy. Neck veins are flat. CARDIOVASCULAR: Examination reveals distant heart sounds. S1, S2 normal. Heart rate mid 80s. No distinct murmur. LUNGS: Reveal a few scattered mild rhonchi. All in all, breath sounds are quite good. No wheezes or crackles. ABDOMEN: Obese, bowel sounds are heard. EXTREMITIES" Intact. No edema. SKIN: Without rash. NEUROLOGIC: Examination is nonfocal. LABS: Reviewed. White count 16.1, hemoglobin 12.4, hematocrit 38.6, platelet count 261,000. Sodium 136, potassium 3.3, chloride 96, CO2 25 anion gap is 15. BUN and creatinine were 94 and 2.04. Microbiologic studies are all negative. No recent chest x-ray to report. Medications are reviewed. ASSESSMENT: 1. Intractable neck pain and lumbar pain, secondary to severe stenosis and degenerative disk disease. 2. COPD exacerbation, much improved. 3. Sleep apnea syndrome, using CPAP in the outpatient setting. 4. Morbid obesity. 5. History of chronic tobacco dependence, although the patient quit 10 years ago. 6. Degenerative disk disease. 7. Coronary artery disease with previous stent placement. 8. Hypertension. 9. Hyperlipidemia. 10.Generalized degenerative joint disease. PLAN: The patient is currently doing very well. Will continue to follow. From the COPD standpoint, he could be discharged home. Will wait for the primary to make a decision about that. He should follow up in the office with a injection machine operator that he sees in the office. No additional recommendations are made. MMODL / IJN: [id number] /
[2019-09-06 14:52] VITALS: BMI 36.8
[2019-09-06 17:40] LABS: Glucose,Whole Blood 354 mg/dL (75-99)
--- NOTE | 2019-09-06 18:27 | PN ---
PROGRESS NOTE The patient is seen for followup for acute kidney injury. Renal function is fairly stable. Serum creatinine is down to 2.0 from 2.3 yesterday. Currently patient is maintained on IV Lasix 40 mg q.8 hours. He is voiding on his own. Weight is stable at 106 kg. Patient is complaining of pain in his right big toe. He believes it is from gout. The patient is maintained on Solu Medrol. EXAMINATION: Blood 130/67, heart rate 82 per minute. He is afebrile. Examination of the heart S1, S2. Examination of the lungs, bilateral breath sounds are heard. Abdomen is soft, nontender and obese. Exam of lower extremities shows edema 2+ bilaterally. ELECTRICAL TIMING DEVICE CALIBRATOR exam grossly intact. LABS: Show sodium 136, potassium 3.3, chloride 96, BUN 94, creatinine 2.04, hemoglobin 12.4 g/dL. ASSESSMENT: 1. Acute kidney injury, nonoliguric, currently improving. Etiology mostly cardiorenal versus an element of acute interstitial nephritis. The patient is maintained on steroids and he is being diuresed. Renal function is improving. 2. Diastolic dysfunction. 3. Hypokalemia and metabolic alkalosis secondary to diuresis. 4. Chronic kidney disease, baseline creatinine 0.8-1.3 mg/dL secondary to nephrosclerosis. PLAN: Continue with IV Lasix. Replace potassium. Repeat labs in a.m. Continue to avoid nephrotoxic agents. MMODL / IJN: [id number] /
[2019-09-06 20:46] LABS: Glucose,Whole Blood 439 mg/dL (75-99)
[2019-09-06] MEDS: INSULIN DETEMIR (LEVEMIR) 100 UNIT/ML SYR SQ SCH (21:18)
[2019-09-06] MEDS: TAMSULOSIN 0.4 MG CAP.ER.24H PO SCH (21:20)
[2019-09-06] MEDS: PANTOPRAZOLE 40 MG TABLET PO SCH (21:20)
[2019-09-06 23:15] LABS: Glucose,Whole Blood 366 mg/dL (75-99)
--- NOTE | 2019-09-06 23:40 | P.PN ---
Subjective Progress Note Date: 09/06/19 Principal diagnosis: Acute on chronic intractable neck pain with tingling sensation in the left arm EMEKA Patient is a 69-year-old male with a long history of coronary disease with stent placement, chronic CHF, obstructive sleep apnea on CPAP and oxygen 4 L at night, previous history of smoking, COPD, cervical spondylosis and chronic low back pain, chronic hypoxic respiratory failure and history of multiple TIAs, diabetes type 2 and morbid obesity presents to ER with complaints of neck pain radiating to the left arm and tingling sensation. Patient says that pain is getting worse for the past 3 days. Patient initially developed neck pain radiated down to his left. Patient states that he was in the bed for 2 days but the pain persisted and is made him come to ER. Patient was given muscle relaxants and narcotic pain medications in the ER which seemed to improve his pain. CT cervical spine showed multilevel spondylotic changes with slight kyphotic curvature. There is significant sclerosis MD C5-C6 disc could correlate to some chronic discitis. No acute fracture seen. Laboratory data showed WBC 15.5, hemoglobin 13.7, platelets 200 Neutrophils 13.2 and ESR 83 and C-reactive protein 248 Sodium 133, potassium 3.0, chloride 88, bicarb is 31, BUN 75 and creatinine 2.19 09/03 Patient is currently sitting on the side of the bed. Neck pain and back pain is improved with medications. Otherwise patient is having worsening shortness of breath. No complaints of chest pain. Does have some increased leg swelling as well. Renal function showed BUN 75 and creatinine level 2.32 Sodium 132, potassium 3.1 and bicarb is 31 WBC is 15.9. Patient had MRI of the cervical spine which showed nearly nondiagnostic assessment due to severe motion artifact. There is multilevel severe degenerative disc disease with disc herniations and disc osteophyte complex re sulting in spinal cord compression and severe spinal stenosis and bilateral foraminal encroachment. Orthopedic surgery is following. Due to worsening renal function nephrology was consulted. Pulmonary is on board. Patient is afebrile. No complaints of nausea vomiting or abdominal pain. 09/05/2019 Patient is currently sitting on the side of the bed. Shortness of breath is improved compared to yesterday. Still having bilateral lower extremity swelling. Continued on IV diuresis. Creatinine level is 2.37 today. Ultrasound of the kidneys showed no evidence of hydronephrosis. No mass or obst ruction. Postvoid residual was ordered. Patient is being continued on IV steroids breathing treatments and oxygen therapy at 2 L currently. Follow-up repeat CBC and BMP tomorrow. Neck pain is controlled with [place] morphine and Lidoderm patch. Patient has been afebrile. 09/06/2019 Patient is currently sitting in the bed. Neck pain and arm pain is better. Still having bilateral lower extremity swelling. Continued on IV Lasix 40 mg every 8 hourly. Currently on oxygen via nasal cannula. Renal function with slight improvement to 2.04 Laboratory data showed WBC 16.1, hemoglobin 12.4 Sodium 136, potassium 3.3 and bicarb 96 BUN 94 and creatinine 0.04 blood sugar is elevated Patient complains of right great toe swelling and redness in the surrounding the area. Does have history of gout. Continued on IV steroids. Discussed with orthopedic surgery for possible aspiration. Patient has been afebrile. Blood pressure is controlled. Current medications reviewed. Objective - Vital Signs Vital signs: Vital Signs Temp 97.8 F 09/05/19 19:48 Pulse 92 09/06/19 07:39 Resp 28 H 09/06/19 04:25 BP 135/67 09/06/19 04:25 Pulse Ox 95 09/06/19 04:25 Intake & Output 09/05/19 09/06/19 09/06/19 18:59 06:59 18:59 Intake Total 600 Output Total 523 2375 1550 Balance -523 -5257 -1550 Weight 106.5 kg Intake: Oral 600 Output: Urine 500 2375 1200 Post Void Residual 23 350 Other: Voiding Method Toilet Toilet Toilet # Voids 1 1 1 - Exam PHYSICAL EXAMINATION: Patient is lying in the bed comfortably, mild distress with pain, awake alert and oriented.. HEENT: Normocephalic. Neck is supple. Pupils reactive. Nostrils clear. Oral cavity is moist. Ears reveal no drainage. Neck reveals no JVD, carotid bruits, or thyromegaly. CHEST EXAMINATION: Trachea is central. Symmetrical expansion. bibasilar diminished air entry, Lung kimball clear to auscultation and percussion. Bilateral surgical site is bandaged. CARDIAC: Normal S1, S2 with no gallops. No murmurs ABDOMEN: Soft. Bowel sounds normal. No organomegaly. No abdominal bruits. Extremities: 2+ edema. No clubbing or cyanosis Neurologically awake, alert, oriented x3 with well-coordinated movements. No f ocal deficits noted Skin: No rash or skin lesions. Psychiatric: Coperative. Nonsuicidal Musculoskeletal: Right great toe swelling and redness and warmth. - Labs CBC & Chem 7: 09/06/19 07:02 09/06/19 19:01 Labs: Abnormal Lab Results - Last 24 Hours (Table) 09/05/19 09/05/19 09/05/19 Range/Units 11:29 12:39 16:21 WBC 19.0 H (3.8-10.6) k/uL RBC 3.87 L (4.30-5.90) m/uL Hgb 12.1 L (13.0-17.5) gm/dL Hct 36.8 L (39.0-53.0) % Neutrophils # 17.5 H (1.3-7.7) k/uL Lymphocytes # 0.6 L (1.0-4.8) k/uL Sodium (137-145) mmol/L Potassium 3.3 L (3.5-5.1) mmol/L Chloride (98-107) mmol/L BUN (9-20) mg/dL Creatinine (0.66-1.25) mg/dL Glucose (74-99) mg/dL POC Glucose (mg/dL) 259 H (75-99) mg/dL 09/05/19 09/05/19 09/06/19 Range/Units 17:14 19:52 07:02 WBC 16.1 H (3.8-10.6) k/uL RBC 4.06 L (4.30-5.90) m/uL Hgb 12.4 L (13.0-17.5) gm/dL Hct 38.6 L (39.0-53.0) % Neutrophils # 14.7 H (1.3-7.7) k/uL Lymphocytes # 0.6 L (1.0-4.8) k/uL Sodium (137-145) mmol/L Potassium (3.5-5.1) mmol/L Chloride (98-107) mmol/L BUN (9-20) mg/dL Creatinine (0.66-1.25) mg/dL Glucose (74-99) mg/dL POC Glucose (mg/dL) 286 H 290 H (75-99) mg/dL 09/06/19 09/06/19 Range/Units 07:02 07:09 WBC (3.8-10.6) k/uL RBC (4.30-5.90) m/uL Hgb (13.0-17.5) gm/dL Hct (39.0-53.0) % Neutrophils # (1.3-7.7) k/uL Lymphocytes # (1.0-4.8) k/uL Sodium 136 L (137-145) mmol/L Potassium 3.3 L (3.5-5.1) mmol/L Chloride 96 L (98-107) mmol/L BUN 94 H (9-20) mg/dL Creatinine 2.04 H (0.66-1.25) mg/dL Glucose 213 H (74-99) mg/dL POC Glucose (mg/dL) 225 H (75-99) mg/dL Microbiology - Last 24 Hours (Table) 09/04/19 11:39 Blood Culture - Preliminary Blood No Growth after 24 hours 09/04/19 11:49 Blood Culture - Preliminary Blood No Growth after 24 hours Assessment and Plan Assessment: Acute on chronic intractable neck pain with tingling sensation in the left arm. Ruled out cervical cord compression. Left upper extremity radiculopathy Multilevel spondylitic changes and significant C5-C6 disc sclerosis Chronic discitis Elevated ESR and CRP levels and neutrophilic leukocytosis Hypovolemic hyponatremia Hypokalemia Acute kidney injury likely Cardiorenal and volume overload. Creatinine 2.19 on admission. Baseline 0.7 Right great toe swelling possible acute gouty arthritis Chronic CHF with diastolic dysfunction EF 55 to 50% Coronary artery disease with history of stent placement x3 Hypertension Hyperlipidemia Obstructive sleep apnea on CPAP at home and oxygen 4 L via nasal cannula at at bedtime Chronic hypoxic respiratory failure Chronic cervical and low back pain History of multiple TIAs History of non-sustained V. tach. Previous history of smoking morbid Obesity with BMI 36 DVT Prophylaxis. Plan: Patient will be continued on pain management with narcotic IV and Flexeril. Replace potassium. Was continued on gentle hydration. IV fluids stopped at this time. Patient was started IV Lasix due to cardiorenal. CTA of the cervical spine showed chronic discitis. With leukocytosis, elevated ESR and CRP patient will be started on antibiotics in the form of ceftriaxone and ID service was consulted. Unlikely acute discitis. Dced abx. Orthopedics is on board. MRI of the cervical spine was done. Patient was started IV steroids. Urice acid level elevated. Follow-up closely and further recommendations based on clinical course. Prognosis is guarded at this time. Time with Patient: Greater than 30
--- NOTE | 2019-09-07 00:20 | PN ---
PROGRESS NOTE DATE OF SERVICE: 09/06/2019 REASON FOR FOLLOWUP: Neck pain and question of discitis. INTERVAL HISTORY: The patient is currently afebrile. The patient is breathing comfortably. The patient's neck pain seemed to have slightly improved, however, is complaining of pain to the right foot, especially at the big toe. Denies having any chest pain or cough. No abdominal pain or diarrhea. PHYSICAL EXAMINATION: Blood pressure is 130/64 with a pulse of 79, temperature 97.9. He is 95% on room air. General description is an elderly male up in the chair in no distress. RESPIRATORY SYSTEM: Unlabored breathing, clear to auscultation anteriorly. HEART: S1, S2. Regular rate and rhythm. ABDOMEN: Soft, no tenderness. Right foot is swollen and mostly tender at the first metatarsophalangeal joint. LABS: Hemoglobin is 12.4, white count 16.1, creatinine 2.04. Uric acid 15.9. Patient's MRI and CT was reviewed with radiologist, Dr. Guzman with no evidence of any edema on C5-6 to be suspicious for discitis. DIAGNOSTIC IMPRESSION AND PLAN: 1. Patient admitted to the hospital with neck pain and examination of the left arm with concern for discitis. Clinically not behaving as such. Patient is currently afebrile, has been maintained off antibiotics and culture has been negative. Will recommend no antibiotic at this point. 2. Patient with right foot pain, more likely secondary to gouty arthritis. 3. Leukocytosis, more likely secondary to steroid effect. Will monitor the patient closely off antibiotic therapy. Continue supportive care. MMODL / IJN: [id number] /
[2019-09-07 02:23] LABS: Glucose,Whole Blood 350 mg/dL (75-99)
--- NOTE | 2019-09-07 06:23 | P.PAINCN ---
History of Present Illness - Reason for Consult Consult date: 09/07/19 - History of Present Illness This is 69 years old male, was admitted to [facility] secondary to severe neck pain with radiation to the upper extremity, the pain is constant and intractable, he denies any initiating event no trauma or injury, he denies any change in bowel movement or urination, he denies any fever or night sweats, he reported that he had chronic neck pain issues started more than 20 years ago but it was under control, until a few days ago when the intensity of the pain is exacerbated without any initiating factor, he was not able to use his upper extremities secondary to the intensity of the pain, patient had MRI of the cervical spine done which showed multilevel cervical degenerative disc disease and cervical herniated disc disease and cervical spondylosis, patient was evaluated by orthopedic spine surgeon and recommended cervical epidural steroid injection Past Medical History Past Medical History: Coronary Artery Disease (CAD), Chest Pain / Angina, Heart Failure, COPD, GERD/Reflux, Hyperlipidemia, Hypertension, Osteoarthritis (OA), Pneumonia, Prostate Disorder, Respiratory Disorder, Sleep Apnea/CPAP/BIPAP Additional Past Medical History / Comment(s): Spondylolsis, cervical and low back pain, DDD, chronic respiratory failure, CALLI with Cpap/O2 at 4L/NC at HS, nonsustained vtach, TIAs, small vessel disease, IDDM type II, diverticular disease, colon polyps-benign, sinus problems, seasonal allergies History of Any Multi-Drug Resistant Organisms: None Reported Past Surgical History: Back Surgery, Heart Catheterization With Stent, Joint Replacement, Orthopedic Surgery Additional Past Surgical History / Comment(s): Bilateral knee arthroscopies, total L knee arthroplasty, R total shoulder arthroplasty, L hand injury with repair, PCI with 3 stents, colonoscopies/polypectomies, lumbar epidural injections, bilateral cataract removals/lens implants. Past Anesthesia/Blood Transfusion Reactions: No Reported Reaction Additional Past Anesthesia/Blood Transfusion Reaction / Comm: STATES "HAD A HARD TIME WITH BREATHING POST OP" Date of Last Stent Placement:: 2009 Smoking Status: Former smoker - Past Family History Father Family Medical History: CVA/TIA, Hyperlipidemia, Hypertension Mother Family Medical History: Hypertension Medications and Allergies Home Medications Medication Instructions Recorded Confirmed Type Nitroglycerin Sl Tabs [Nitrostat] 0.4 mg SUBLINGUAL Q5M PRN 03/09/14 09/03/19 History Omeprazole [PriLOSEC] 20 mg PO HS 03/09/14 09/03/19 History Atorvastatin [Lipitor] 80 mg PO DAILY 05/08/15 09/03/19 History Tamsulosin HCl [Flomax] 0.4 mg PO HS 10/09/16 09/03/19 History Fluticasone/Vilanterol [Breo 1 puff INHALATION RT-DAILY 03/12/18 09/03/19 History Ellipta 100-25 Mcg Inhaler] Potassium Chloride ER [K-Dur 20] 20 meq PO BID #0 03/15/18 09/03/19 Rx Insulin Glargine [Lantus] 30 unit SQ HS 03/25/18 09/03/19 History methylPREDNISolone [Medrol] 4 mg PO DAILY 05/04/19 09/03/19 History Aspirin 325 mg PO DAILY 09/02/19 09/03/19 History Furosemide [Lasix] 80 mg PO DAILY 09/02/19 09/03/19 History Glimepiride [Amaryl] 2 mg PO AC-BRKFST 09/02/19 09/03/19 History Ipratropium-Albuterol Nebulize 3 ml INHALATION RT-QID 09/02/19 09/03/19 History [Duoneb 0.5 mg-3 mg/3 ml Soln] Meloxicam 15 mg PO DAILY 09/02/19 09/03/19 History Metolazone [Zaroxolyn] 2.5 mg PO Q48H 09/02/19 09/03/19 History Metoprolol Tartrate 25 mg PO BID 09/02/19 09/03/19 History Pramipexole Di-HCl [Mirapex] 1 mg PO DAILY 09/02/19 09/03/19 History traMADol HCL 50 mg PO DAILY PRN 09/02/19 09/03/19 History Allergies Allergy/AdvReac Type Severity Reaction Status Date / Time prednisone AdvReac "MADE ME Verified 09/03/19 06:18 VERY ANGRY" Physical Exam Vitals: Vital Signs Temp Pulse Pulse Resp BP Pulse Ox 09/06/19 20:02 98 09/06/19 19:56 98 09/06/19 19:38 97.7 F 85 20 138/76 95 09/06/19 17:09 100 09/06/19 16:59 100 09/06/19 13:00 97.9 F 79 18 130/64 95 09/06/19 11:32 92 09/06/19 11:21 96 09/06/19 07:39 92 09/06/19 07:28 88 Intake and Output 09/06/19 09/06/19 09/07/19 14:59 22:59 06:59 Intake Total 540 Output Total 2100 Balance -2100 540 Intake: Oral 540 Output: Urine 1750 Post Void Residual 350 Other: Voiding Method Toilet Toilet Toilet # Voids 1 1 1 Weight 106.5 kg 104.4 kg Physical Examinations : -Constitutiona : Cooperative , not in acute distress . -HEENT : nech : supple , no Lymphadenopathy , normal thyroid size . : eyes : no ptosis , no icterus, no photop hobia . : ENT : normal of hearing , normal oropharynx , no Thrush . - Respiratory : Chest clear to auscultations Bilaterally , no wheezing , no Rhonchi . - Cardiovascula : regular rate and rhythem , S1 , S2 , no S3 , no S4. - Gastrointestina : abdomen soft no tenderness , bowel sounds , no organomegally . - Genitourinary : Defferred . - neurologic : Cranial nerve II to XII intact , no focal neurological deffecit . -psychatric : alert , oriented X 3 , appropriate affect , intact judgment and insight . -Lymphatic : no Lymphadenopathy . - musculoskeltal : Cervical Spine motor stregnth in the deltoid and biceps, normal right side , normal Left side motor stregnth biceps and the wrist extensors normal right side ,normal left side . motor stregnth in the triceps muscle . normal Right side , normal Left side deep tendon reflexes normal at the biceps , normal at Brachioradialis , normal at triceps. cervical facet loading test= Positive Bilaterally Spurling test= positive bilaterally. Neck distraction test= positive bilaterally. Sisi sign= positive bilaterally. Multiple trigger points identified in the cervical paravertebral muscles bilaterally. more prominent on the left side Lumber spine moter stegnth lower extremities ,thigh and legs 5/5 Right side , 5/5 Left side deep tendon reflexes : normal Knee Jerk , normal ankle Jerk Results CBC & Chem 7: 09/06/19 07:02 06/15/20 19:01 Labs: Abnormal Lab Results - Last 24 Hours (Table) 09/06/19 09/06/19 09/06/19 Range/Units 07:02 07:02 07:02 WBC 16.1 H (3.8-10.6) k/uL RBC 4.06 L (4.30-5.90) m/uL Hgb 12.4 L (13.0-17.5) gm/dL Hct 38.6 L (39.0-53.0) % Neutrophils # 14.7 H (1.3-7.7) k/uL Lymphocytes # 0.6 L (1.0-4.8) k/uL Sodium 136 L (137-145) mmol/L Potassium 3.3 L (3.5-5.1) mmol/L Chloride 96 L (98-107) mmol/L BUN 94 H (9-20) mg/dL Creatinine 2.04 H (0.66-1.25) mg/dL Glucose 213 H (74-99) mg/dL POC Glucose (mg/dL) (75-99) mg/dL Uric Acid 15.9 H* (3.5-8.5) mg/dL 09/06/19 09/06/19 09/06/19 Range/Units 07:09 11:43 17:37 WBC (3.8-10.6) k/uL RBC (4.30-5.90) m/uL Hgb (13.0-17.5) gm/dL Hct (39.0-53.0) % Neutrophils # (1.3-7.7) k/uL Lymphocytes # (1.0-4.8) k/uL Sodium (137-145) mmol/L Potassium (3.5-5.1) mmol/L Chloride (98-107) mmol/L BUN (9-20) mg/dL Creatinine (0.66-1.25) mg/dL Glucose (74-99) mg/dL POC Glucose (mg/dL) 225 H 286 H 354 H (75-99) mg/dL Uric Acid (3.5-8.5) mg/dL 09/06/19 09/06/19 09/06/19 Range/Units 19:01 20:41 23:03 WBC (3.8-10.6) k/uL RBC (4.30-5.90) m/uL Hgb (13.0-17.5) gm/dL Hct (39.0-53.0) % Neutrophils # (1.3-7.7) k/uL Lymphocytes # (1.0-4.8) k/uL Sodium (137-145) mmol/L Potassium 3.4 L (3.5-5.1) mmol/L Chloride (98-107) mmol/L BUN (9-20) mg/dL Creatinine (0.66-1.25) mg/dL Glucose (74-99) mg/dL POC Glucose (mg/dL) 439 H 366 H (75-99) mg/dL Uric Acid (3.5-8.5) mg/dL 09/07/19 Range/Units 02:17 WBC (3.8-10.6) k/uL RBC (4.30-5.90) m/uL Hgb (13.0-17.5) gm/dL Hct (39.0-53.0) % Neutrophils # (1.3-7.7) k/uL Lymphocytes # (1.0-4.8) k/uL Sodium (137-145) mmol/L Potassium (3.5-5.1) mmol/L Chloride (98-107) mmol/L BUN (9-20) mg/dL Creatinine (0.66-1.25) mg/dL Glucose (74-99) mg/dL POC Glucose (mg/dL) 350 H (75-99) mg/dL Uric Acid (3.5-8.5) mg/dL Microbiology - Last 24 Hours (Table) 09/04/19 11:39 Blood Culture - Preliminary Blood No Growth after 48 hours 09/04/19 11:49 Blood Culture - Preliminary Blood No Growth after 48 hours Comments: MRI of the cervical spine reviewed and it showed that he had multilevel cervical degenerative disc disease and multilevel cervical spondylosis with cervical facet arthropathy, and there is cervical herniated disc disease Assessment and Plan Plan: Assessment and plan= Cervical radiculopathy. Cervical herniated disc disease. Cervical spondylosis with cervical facet arthropathy Cervical degenerative disc disease. Myofascial pain syndrome and cervical paravertebral muscles Patient will be good candidate to have cervical epidural steroid injections, and trigger point injection in the cervical paravertebral muscles, procedure risk and benefits and alternatives discussed with the patient he agreed with the preceding. Time with Patient: Less than 30 PQRS Measure Charge Sheet PQRS Narrative: Smoking Status Former smoker Do You Want the Pneumonia Vaccine Up to Date Vaccine AT THIS TIME? Blood Pressure [Right Arm] 138/76 Blood Pressure 129/74 Pain Intensity [Posterior Neck 8 ] Pain Intensity 6 Pain Scale Used Numeric (1 - 10) Scale Used Non Verbal Pain Indicator Home Medications: Ambulatory Orders Nitroglycerin Sl Tabs [Nitrostat] 0.4 mg SUBLINGUAL Q5M PRN 03/09/14 Omeprazole [PriLOSEC] 20 mg PO HS 03/09/14 Atorvastatin [Lipitor] 80 mg PO DAILY 05/08/15 Tamsulosin HCl [Flomax] 0.4 mg PO HS 10/09/16 Fluticasone/Vilanterol [Breo Ellipta 100-25 Mcg Inhaler] 1 puff INHALATION RT- DAILY 03/12/18 Potassium Chloride ER [K-Dur 20] 20 meq PO BID #0 03/15/18 Insulin Glargine [Lantus] 30 unit SQ HS 03/25/18 methylPREDNISolone [Medrol] 4 mg PO DAILY 05/04/19 Aspirin 325 mg PO DAILY 09/02/19 Furosemide [Lasix] 80 mg PO DAILY 09/02/19 Glimepiride [Amaryl] 2 mg PO AC-BRKFST 09/02/19 Ipratropium-Albuterol Nebulize [Duoneb 0.5 mg-3 mg/3 ml Soln] 3 ml INHALATION RT-QID 09/02/19 Meloxicam 15 mg PO DAILY 09/02/19 Metolazone [Zaroxolyn] 2.5 mg PO Q48H 09/02/19 Metoprolol Tartrate 25 mg PO BID 09/02/19 Pramipexole Di-HCl [Mirapex] 1 mg PO DAILY 09/02/19 traMADol HCL 50 mg PO DAILY PRN 09/02/19
[2019-09-07 07:06] LABS: Glucose,Whole Blood 257 mg/dL (75-99)
[2019-09-07] MEDS: SYMBICORT 80-4.5 MCG INHALER INHALATION SCH ×2 (07:24→20:18)
[2019-09-07] MEDS: IPRATROPIUM-ALBUTEROL 3 ML NEB INHALATION SCH ×4 (07:24→20:18)
[2019-09-07] MEDS: INSULIN ASPART (NovoLOG) 100 UNIT/ML VIAL SQ SCH ×6 (08:14→21:05)
[2019-09-07] MEDS ORDERED: LACTATED RINGERS 1,000 ML IV ONE (09:03)
[2019-09-07 09:19] LABS: Glucose,Whole Blood 244 mg/dL (75-99)
[2019-09-07] MEDS ORDERED: ROPIVACAINE 5MG/ML 20ML VIAL ONE (09:23)
--- NOTE | 2019-09-07 09:28 | P.PN ---
Progress Note - Text Progress Note Date: 09/07/19 Orthopedic spine: History of present illness: Patient is a very pleasant 69-year-old male who is seen and examined at the bedside for follow-up evaluation regards to his cervical spine. Since being seen and examined yesterday, he continues to state he has had improvement of his symptoms. His left arm pain and reduced range of motion has improved. He is able to perform better active range of motion of the left shoulder. Today he states he does have pain that radiates over the trapezius down the shoulders bilaterally worse on the left than the right. Consultation has been place with pain management. He was seen and examined yesterday by pain management. He is currently planning for an injection this morning with pain management. He is currently waiting for that evaluation today. Patient does state at this time given his congestive heart failure he would like to continue working through conservative treatment before discussing the possibility of surgical intervention. He has continued to work through active range of motion of his cervical spine. He currently denies any upper extremity weakness bilaterally. Patient does have some chronic low back pain and has a lidocaine pain patch in place. Consultation was placed by medicine for orthopedics for further evaluation for gout in the right foot. Patient is seen and evaluated for gout this morning as well. Patient also admits to a history of gout at the right great toe 3 times over the past 18 months. He is not currently on any medication for gout. He currently has swelling and pain in his right foot and great toe. He has pain with palpation of the right great toe. He states previously warm water and Epsom salt soaks help alleviate his gout pain. Steroid medication alleviated his gout pain previously as well. Uric acid levels were obtained by medicine which was critical lab at 15.9. Patient continues to receive methylprednisolone 80 mg IV every 12 hours without difficulty. Patient's other medical diagnoses include history of smoking, COPD, coronary artery disease with stent placement, chronic congestive heart failure, type 2 diabetes, morbid obesity, obstructive sleep apnea on CPAP, and chronic hypoxic respiratory failure with history of multiple TIAs. Patient has had MRI imaging of the cervical spine which is not suspicious for discitis. Physical exam: Patient is awake, alert, and oriented 3 Vital signs stable Good chest excursion with deep inspiration and expiration Examination of the cervical spine reveals skin is intact with no abrasions, lacerations, or bruises; no erythema, purulence or signs of infection Mild pain with palpation over the posterior cervical spine and trapezius bilaterally Adequate range of motion of the cervical spine with adequate flexion, extension, and bilateral rotation Antenna Installer strength, thumb strength, interosseous strength, biceps strength, triceps strength, and shoulder strength positive sustained bilaterally Upper extremity strength 5/5 bilaterally except for some weakness with thumb extension on the right Hoffmans sign negative upper extremity bilaterally No signs or symptoms of DVT; no calf pain Evidence of generalized swelling or the feet bilaterally Evidence of swelling with some mild erythema at the medial right great toe Significant pain with palpation over the medial right great toe Some evidence of fluid collection with palpation over the right medial great toe Assessment: Left upper extremity radiculopathy Cervicalgia Cervical stenosis at C4-5, C5-6, and C6-7 most significant at C4-5 and C5-6 Cervical degenerative disc disease at C3-4, C4-5, C5-6, and C6-7 with complete disc height loss at C5-6 Chronic low back pain History of smoking COPD Coronary artery disease with stent placement Chronic congestive heart failure Type 2 diabetes Morbid obesity Obstructive sleep apnea on CPAP Chronic hypoxic respiratory failure with history of multiple TIAs Acute gouty attack History of gout Plan: 1. In regards to his cervical spine, we'll continue with plan of care as discussed yesterday. Patient has been discussed in detail with Dr. Nickolas Grier. Patient has had improvement of his cervical pain and left upper extremity pain and reduced range of motion since yesterday. He continues to receive methylprednisolone 80 mg every 12 hours. Patient has been seen and examined by pain management is scheduled to undergo an injection at his cervical spine today. At this time, given the improvement of his symptoms overall and his other significant comorbidities, we will currently plan to continue conservative treatment at this time. Patient like to continue conservative treatment as he is worried about his congestive heart failure. If his symptoms are unable to be controlled conservatively, we did discuss he is a candidate for surgical intervention. He does have significant changes of his cervical spine most significant at C4-5, C5-6, and C6-7. The most likely proposed surgical in tervention would be a C4-5, C5-6, and C6-7 anterior cervical decompression and fusion and possibly C3-4. Patient does state today he would like to be discharged home. At this time, patient will be cleared for discharge from an orthopedic spine standpoint. We did discuss we'll plan have him follow-up in the outpatient setting approximately 2-3 weeks for further evaluation. We'll discuss a plan of care proceeding forward at that time the pending on his progress with conservative treatment. 2. Based on the patient's physical examination of his right foot and great toe along with elevated uric acid levels, it does appear the patient currently has an acute gouty attack. He is known to have gout flares and has had 3 episodes of gout over the past 18 months. Previously he states his gout improved with warm water and Epsom salts along with steroid medication. He is currently on methylprednisolone 80 mg every 12 hours. Given the patient's significant medical diagnoses including diabetes mellitus, we are not currently planning for drainage of the right great toe. We would recommend continuing with conservative treatment including steroid medication. Patient could also benefit from medications been prescribed to treat his gout. We would defer this to medicine. We are not currently planning for further treatment at this time in regards to gout in his right great toe. Patient may need a steroid taper at the time of discharge following course of IV steroid medication while inpatient. 3. Patient will continue be seen in exam by medicine for treatment evaluation regards to his other medical diagnoses 4. Continue pain control medications as described 5. Patient currently scheduled to undergo an injection at his cervical spine with pain management this morning
[2019-09-07 09:31] LABS: Potassium 3.6 mmol/L (3.5-5.1)
--- NOTE | 2019-09-07 09:36 | P.PCN ---
Date of Procedure: 09/07/19 Procedure(s) Performed: Preoperative Diagnosis: myofascial pain syndrome of bilateral cervical paraspi nals, rhomboids, trapezius Postoperative diagnosis: Same Anesthesia: Local Surgeon: Marvin Eubanks MD Indications for procedure: This is a patient with myofascial pain and palpable trigger points in above- mentioned muscles. The patient consents for an injection after an explanation of risks including but not limited to bleeding and infection, benefits, and alternatives and the patient has signed a consent form indicating understanding of all of them. Description of procedure: After informed consent was obtained the patient's back was sterilely prepped in the usual fashion with ChloraPrep. 17 trigger points were identified via palpation of the indicated muscles and marked sterilely. Each trigger point was injected with a 25-gauge half inch needle, with 0.5-1 mL of solution consisting of ropivacaine 0.5%. The patient's vital signs were stable afterwards and the procedure was tolerated well. Patient was discharged home with follow-up instructions.
[2019-09-07] MEDS: methylPREDNISolone SOD SUCCI 125 MG/2 ML VIAL IV SCH ×2 (10:04→21:04)
[2019-09-07] MEDS: POTASSIUM CHLORIDE ER 20 MEQ TAB.ER PO SCH ×2 (10:05→21:04)
[2019-09-07] MEDS: ATORVASTATIN 80 MG TAB PO SCH (10:05)
[2019-09-07] MEDS: FUROSEMIDE 10 MG/ML 4 ML VIAL IV SCH ×3 (10:05→23:32)
[2019-09-07] MEDS: LIDOCAINE 5% PATCH TOPICAL SCH (10:05)
[2019-09-07] MEDS: SENNOSIDES 8.6 MG TAB PO SCH ×2 (10:05→21:04)
[2019-09-07] MEDS: METOPROLOL TARTRATE 25 MG TAB PO SCH ×2 (10:05→21:04)
[2019-09-07] MEDS: ASPIRIN 325 MG TAB PO SCH (10:05)
[2019-09-07] MEDS: GLIMEPIRIDE 2 MG TAB PO SCH (10:06)
[2019-09-07] MEDS: PRAMIPEXOLE 1 MG TAB PO SCH (10:06)
[2019-09-07 11:23] LABS: Basophils % (A) 0 %; Eosinophils # (A) 0.1 k/uL (0-0.7); Eosinophils % (A) 1 %; HCT 39.2 % (39.0-53.0); HGB 13.1 gm/dL (13.0-17.5); Lymphocytes # (A) 0.6 k/uL (1.0-4.8); Lymphocytes % (A) 5 %; MCHC 33.3 g/dL (31.0-37.0); MCV 96.2 fL (80.0-100.0); Mean Platelet Volume 9.8; Monocytes # (A) 0.5 k/uL (0-1.0); Monocytes % (A) 4 %; Neutrophils # (A) 10.9 k/uL (1.3-7.7); Neutrophils % (A) 89 %; Platelet Count 257 k/uL (150-450); RBC 4.08 m/uL (4.30-5.90); RDW 14.1 % (11.5-15.5); WBC 12.2 k/uL (3.8-10.6)
[2019-09-07 11:25] LABS: Glucose,Whole Blood 244 mg/dL (75-99)
[2019-09-07 11:25] LABS: Calcium 9.2 mg/dL (8.4-10.2)
--- NOTE | 2019-09-07 12:55 | PN ---
PROGRESS NOTE DATE OF SERVICE: 09/07/2019 A 69-year-old gentleman who was initially seen for intractable back and neck pain. The patient apparently has severe stenosis as well as degenerative disk disease. He was also having a COPD exacerbation, which is currently under good control. The patient will likely go home either later today or more likely tomorrow. The patient did quit smoking 10 years ago. He denies any worsening shortness of breath, chest tightness, cough, wheezing, or phlegm production. He does have a history of underlying hypertension, hyperlipidemia, CAD with previous stent placement, chronic back pain, and morbid obesity. He also suffers from sleep apnea syndrome. Current vital signs are reviewed, temperature 98.1, heart rate 66, respiratory rate 16, blood pressure 137/62, room air saturation 95%. He appears in no acute distress. Certainly no respiratory distress. There is no audible wheezing, use of accessory muscles or conversational dyspnea. HEENT: Examination is grossly unremarkable. No supplemental oxygen noted. NECK: Supple. Full range of motion. No adenopathy. CARDIOVASCULAR: Examination reveals regular rhythm and rate. Heart rate mid 60s. S1, S2 normal. LUNGS: Reveal mostly clear breath sounds. A few scattered rhonchi noted. No wheezes or crackles. Breath sounds are much improved. ABDOMEN: Soft, bowel sounds are heard. EXTREMITIES: Intact. No cyanosis, clubbing, or edema. SKIN: Without rash. NEUROLOGIC: Examination is nonfocal. White count 4.2, hemoglobin 13.1, hematocrit 39.2, platelet count 257,000. Sodium 139, potassium 3.6, chloride 100, CO2 is 26, anion gap is 13. BUN and creatinine were 101 and 1.70. Microbiology is negative. No recent chest x-ray to report. Medications are reviewed. ASSESSMENT: 1. Intractable neck pain and lumbar pain, secondary to severe spinal stenosis and degenerative disc disease. 2. COPD exacerbation, which is now much improved. 3. Sleep apnea syndrome, currently using CPAP in the outpatient setting. 4. Morbid obesity. 5. History of chronic tobacco dependence. 6. Degenerative disc disease. 7. Coronary artery disease with previous stent placement. 8. Hypertension. 9. Hyperlipidemia. 10.Generalized arthritis. PLAN: The patient seems to be doing reasonably well. He may or may not be discharged home tomorrow. The patient will follow up with my partner, Dr. Chang. He does not need any refills on his usual medications. He will see Dr. Torres within the next month or so. Currently, from the pulmonary standpoint, he feels well. Denies any shortness of breath, chest tightness, wheezing, cough or phlegm production. MMODL / IJN: [id number] /
[2019-09-07] MEDS ORDERED: POTASSIUM CHLORIDE ER 20 MEQ TAB.ER PO SCH (13:00)
[2019-09-07] MEDS: HYDROcodone/APAP 5-325MG 1 EACH TAB PO PRN ×2 (13:36→21:04)
--- NOTE | 2019-09-07 14:52 | PN ---
PROGRESS NOTE Patient is seen for followup for acute kidney injury. Renal function is stable. Serum creatinine at 1.7, which is down from 2.0 yesterday. Uric acid came back at 15.9 yesterday. Patient is maintained on IV Solu-Medrol. He states that his pain in the right toe is improved. PHYSICAL EXAMINATION: Blood pressure is 137/62, heart rate 69 per minute, he is afebrile. Examination of the heart S1, S2. Examination on the lungs, decreased breath sounds at the bases. Abdomen is soft. Morbidly obese. Examination of the lower extremities shows significant edema bilaterally about 2+. The right foot is wrapped. LABS: Show sodium 139, potassium 3.6, BUN 100, serum creatinine 1.7. ASSESSMENT: 1. Acute kidney injury, currently slightly improved, nonoliguric, mostly cardiorenal versus acute interstitial nephritis. The patient is being diuresed. 2. Volume overload. I have advised him that he should stay probably one more night and he could be discharged tomorrow. 3. Diastolic dysfunction. 4. Hypokalemia metabolic alkalosis secondary to diuresis. 5. CKD with previous creatinine 0.8-1.3 mg/dL secondary to nephrosclerosis. PLAN: Continue with IV Lasix for one more day. We will switch to p.o. Lasix tomorrow and patient could be discharged tomorrow. He will need to follow up as outpatient in about 1-2 weeks' time. The patient will be also started on allopurinol. Ideally, he would benefit from Uloric; however, it is not available currently in the hospital. MMODL / IJN: [id number] /
--- NOTE | 2019-09-07 16:15 | PN ---
PROGRESS NOTE DATE OF SERVICE: 09/07/2019 REASON FOR FOLLOWUP: 1. Abnormal MRI with question of discitis. 2. Leukocytosis. INTERVAL HISTORY: The patient is currently afebrile. The patient is status post right epidural steroid injection and trigger points and patient is doing better as far as neck pain is concerned. Denies having any chest pain or shortness of breath or cough. No abdominal pain or diarrhea. No worsening pain to the right foot. PHYSICAL EXAMINATION: Blood pressure 127/62 with a pulse of 69, temperature 98.1. He is 95% on room air. General description is an elderly male up in the chair in no distress. RESPIRATORY SYSTEM: Unlabored breathing. Clear to auscultation anteriorly. HEART: S1, S2. Regular rate and rhythm. ABDOMEN: Soft. No tenderness. LABS: Hemoglobin 13.1, white count 12.2. Creatinine is 1.70. Blood culture has been negative. DIAGNOSTIC IMPRESSION AND PLAN: 1. Patient with neck pain, more likely secondary to severe osteoarthritis of cervical spine with spinal stenosis. Clinically doubt discitis. Patient with no fever. MRI did not show any swelling or inflammation associated with discitis, and the patient did well off antibiotic therapy. antibiotics. 2. Leukocytosis, possibly reactive; showing a downward trend. 3. Infectious Diseases will sign off. Please call back if any questions about infectious disease care. MMODL / IJN: [id number] /
[2019-09-07] MEDS: traMADol 50 MG TAB PO PRN (17:09)
[2019-09-07 17:10] LABS: Glucose,Whole Blood 456 mg/dL (75-99)
[2019-09-07] MEDS ORDERED: INSULIN ASPART (NovoLOG) 100 UNIT/ML VIAL SQ ONE (17:31)
[2019-09-07 20:49] LABS: Glucose,Whole Blood 385 mg/dL (75-99)
[2019-09-07] MEDS: TAMSULOSIN 0.4 MG CAP.ER.24H PO SCH (21:04)
[2019-09-07] MEDS: INSULIN DETEMIR (LEVEMIR) 100 UNIT/ML SYR SQ SCH (21:04)
[2019-09-07] MEDS: PANTOPRAZOLE 40 MG TABLET PO SCH (21:04)
[2019-09-07 21:58] VITALS: TEMP 97.6
[2019-09-08 06:57] VITALS: BP 136/71; RESP 18
[2019-09-08 07:22] LABS: Basophils % (A) 0 %; Eosinophils % (A) 0 %; HCT 38.9 % (39.0-53.0); HGB 12.5 gm/dL (13.0-17.5); Lymphocytes # (A) 0.8 k/uL (1.0-4.8); Lymphocytes % (A) 6 %; MCH 30.6 pg (25.0-35.0); MCHC 32.1 g/dL (31.0-37.0); MCV 95.5 fL (80.0-100.0); Mean Platelet Volume 9.6; Monocytes # (A) 0.8 k/uL (0-1.0); Monocytes % (A) 6 %; Neutrophils # (A) 11.2 k/uL (1.3-7.7); Neutrophils % (A) 86 %; Platelet Count 248 k/uL (150-450); RBC 4.07 m/uL (4.30-5.90); WBC 13.1 k/uL (3.8-10.6)
[2019-09-08 07:27] LABS: Glucose,Whole Blood 241 mg/dL (75-99)
[2019-09-08] MEDS: IPRATROPIUM-ALBUTEROL 3 ML NEB INHALATION SCH ×2 (07:47→11:54)
[2019-09-08] MEDS: SYMBICORT 80-4.5 MCG INHALER INHALATION SCH (07:47)
[2019-09-08 07:51] LABS: Calcium 8.5 mg/dL (8.4-10.2)
[2019-09-08] MEDS: FUROSEMIDE 10 MG/ML 4 ML VIAL IV SCH (08:42)
[2019-09-08] MEDS: ATORVASTATIN 80 MG TAB PO SCH (08:43)
[2019-09-08] MEDS: GLIMEPIRIDE 2 MG TAB PO SCH (08:43)
[2019-09-08] MEDS: INSULIN ASPART (NovoLOG) 100 UNIT/ML VIAL SQ SCH ×4 (08:43→12:20)
[2019-09-08] MEDS: methylPREDNISolone SOD SUCCI 125 MG/2 ML VIAL IV SCH (08:43)
[2019-09-08] MEDS: ASPIRIN 325 MG TAB PO SCH (08:43)
[2019-09-08] MEDS: METOPROLOL TARTRATE 25 MG TAB PO SCH (08:44)
[2019-09-08] MEDS: POTASSIUM CHLORIDE ER 20 MEQ TAB.ER PO SCH ×3 (08:44→12:20)
[2019-09-08] MEDS: PRAMIPEXOLE 1 MG TAB PO SCH (08:45)
[2019-09-08] MEDS: SENNOSIDES 8.6 MG TAB PO SCH (08:45)
[2019-09-08] MEDS ORDERED: ALLOPURINOL 100 MG TAB PO SCH (09:00)
[2019-09-08] MEDS: LIDOCAINE 5% PATCH TOPICAL SCH (11:20)
[2019-09-08 11:56] LABS: Glucose,Whole Blood 343 mg/dL (75-99)
[2019-09-08 12:08] VITALS: PULSE 67
--- NOTE | 2019-09-08 14:20 | PN ---
PROGRESS NOTE Patient is seen for followup for acute kidney injury. Renal function has improved. Serum creatinine 1.67 down from 2.3 at peak. Patient is comfortable. He denies any significant complaints. PHYSICAL EXAMINATION: Today blood pressure was 136/71, heart rate 66 per minute, he is afebrile. Examination of the heart S1, S2. Examination of the lungs decreased breath sounds at bases. Examination of the lower extremities shows edema 1+ bilaterally. JUICE SCALEMAN exam grossly intact. LABS: Show sodium 139, potassium 3.0, chloride 98, CO2 is 26, BUN 93, creatinine 1.67. ASSESSMENT: 1. Acute kidney injury cardiorenal, currently improved. 2. Volume overload, improved. Patient is maintained on IV Lasix. He will be switched over to p.o. Lasix upon discharge. We could use Demadex as patient was on 80 mg p.o. b.i.d. If his volume status worsens as outpatient, small dose of Zaroxolyn can be added as well. 3. Hyperuricemia and gout, started on allopurinol, maintained on steroids during hospitalization. 4. CKD with previous creatinine around 1.3 mg/dL secondary to nephrosclerosis. 5. Diastolic dysfunction. PLAN: Switch to Demadex 20 mg b.i.d. and repeat labs as outpatient. Monitor volume status as outpatient. We will see him back for followup in about one week's time. MMODL / IJN: [id number] /
[2019-09-08] MEDS ORDERED: TORSEMIDE 20 MG TAB PO SCH (21:00)
--- NOTE | 2019-09-09 09:42 | CDI ---
Documentation Clarification Form Date: 09/09/19 From: Sharon Elkins Phone: If you have a question about this query, please contact Annie Del Rosario, Ventilation Worker at [phone] between 8am and 5pm. Admit Date: 09/05/19 Discharge Date: 09/08/19 Patient Name: MARIA DE JESUS MORFIN Visit Number: [id number] ATTENTION: The Clinical Documentation Specialists (CDI) and [facility] Coding Staff appreciate your assistance in clarifying documentation. Please respond to the clarification below the line at the bottom and electronically sign. The CDI & [facility] Coding staff will review the response and follow-up if needed. Please note: Queries are made part of the Legal Health Record. If you have any questions, please contact the author of this message via ITS. Dear Dr. Ruth De Los Santos, CKD is documented in Nephrology consult, PNs 09/04, 09/05 09/06 & 09/07. History/Risk Factors: HTN w CHF & CKD, DM, chronic hypoxic resp failure, EMEKA, COPD in AE, morbid obesity, dementia Patients Historical BUN/CR/GFR: Per Nephrology consult: Chronic kidney disease with a baseline Creatinine of 0.8-1.3 MG per DL. Clinical Indicators: 09/02-09/07 Current GFR: 29, 28, 27, 32, 40, 41 Current BUN: 75, 75, 82, 94, 100, 93 Current Cr: 2.19, 2.32, 2.37, 2.04, 1.70, 1.67 Treatment: IV Lasix 40 mg IB 3 times a day, bladder scan, check urine analysis and renal US, urine electrolytes, avoid nephrotixic agents and hypotensive episodes In order to capture the severity of condition, please clarify the stage of the CKD, if known: CKD Stage 1 (GFR > 90) CKD Stage 2 (GFR 60-89) CKD Stage 3 (GFR 30-59) CKD Stage 4 (GFR 15-29) CKD Stage 5 (GFR <15) ESRD Other, please specify _stage 3 Unable to determine MTDD
== END 2019-09-08 14:30 | disposition home or self-care (01) | DRG 683 ==
LOC: EC 03:37 → 5NMEDONC 06:46 → OBSVTOIN 09-05 14:49
PROVIDERS: ADMIT Hospitalist; ATTEND Hospitalist
PROC: 5A09457 Assistance with Respiratory Ventilation, 24-96 Consecutive Hours, Continuous Positive Airway Pressure (ICD-10-PCS; principal; 2019-09-05)
DX: N17.9 Acute kidney failure, unspecified (principal); J96.11 Chronic respiratory failure with hypoxia; E87.3 Alkalosis; I13.0 Hypertensive heart and chronic kidney disease with heart failure and stage 1 through stage 4 chronic kidney disease, or unspecified chronic kidney disease; J44.1 Chronic obstructive pulmonary disease with (acute) exacerbation; E87.1 Hypo-osmolality and hyponatremia; I50.32 Chronic diastolic (congestive) heart failure; J98.11 Atelectasis; E11.22 Type 2 diabetes mellitus with diabetic chronic kidney disease; E11.51 Type 2 diabetes mellitus with diabetic peripheral angiopathy without gangrene; F03.90 Unspecified dementia, unspecified severity, without behavioral disturbance, psychotic disturbance, mood disturbance, and anxiety; Z99.81 Dependence on supplemental oxygen; E66.01 Morbid (severe) obesity due to excess calories; Z79.4 Long term (current) use of insulin; N18.3 Chronic kidney disease, stage 3 (moderate); Z11.59 Encounter for screening for other viral diseases; M50.121 Cervical disc disorder at C4-C5 level with radiculopathy; M48.02 Spinal stenosis, cervical region; M47.22 Other spondylosis with radiculopathy, cervical region; E86.1 Hypovolemia; E87.6 Hypokalemia; M25.78 Osteophyte, vertebrae; G89.29 Other chronic pain; M54.5 Low back pain; E78.5 Hyperlipidemia, unspecified; G47.33 Obstructive sleep apnea (adult) (pediatric); I25.10 Atherosclerotic heart disease of native coronary artery without angina pectoris; K21.9 Gastro-esophageal reflux disease without esophagitis; K57.90 Diverticulosis of intestine, part unspecified, without perforation or abscess without bleeding; D72.829 Elevated white blood cell count, unspecified; T39.395A Adverse effect of other nonsteroidal anti-inflammatory drugs [NSAID], initial encounter; T50.2X5A Adverse effect of carbonic-anhydrase inhibitors, benzothiadiazides and other diuretics, initial encounter; T38.0X5A Adverse effect of glucocorticoids and synthetic analogues, initial encounter; M79.18 Myalgia, other site; M13.0 Polyarthritis, unspecified; M79.674 Pain in right toe(s); M79.671 Pain in right foot; N42.9 Disorder of prostate, unspecified; M10.9 Gout, unspecified; Z68.36 Body mass index [BMI] 36.0-36.9, adult; Z53.09 Procedure and treatment not carried out because of other contraindication; Z79.82 Long term (current) use of aspirin; Z79.1 Long term (current) use of non-steroidal anti-inflammatories (NSAID); Z79.52 Long term (current) use of systemic steroids; Z79.899 Other long term (current) drug therapy; Z95.5 Presence of coronary angioplasty implant and graft; Z96.611 Presence of right artificial shoulder joint; Z96.652 Presence of left artificial knee joint; Z87.891 Personal history of nicotine dependence; Z86.010 Personal history of colon polyps; Z98.890 Other specified postprocedural states; Z98.42 Cataract extraction status, left eye; Z98.41 Cataract extraction status, right eye; Z96.1 Presence of intraocular lens; Z86.73 Personal history of transient ischemic attack (TIA), and cerebral infarction without residual deficits; Z87.01 Personal history of pneumonia (recurrent); Z71.3 Dietary counseling and surveillance; Z88.8 Allergy status to other drugs, medicaments and biological substances; Z91.048 Other nonmedicinal substance allergy status; Z82.49 Family history of ischemic heart disease and other diseases of the circulatory system; Z83.49 Family history of other endocrine, nutritional and metabolic diseases; Z82.3 Family history of stroke
CPT/HCPCS: 20553; 71046; 72125; 72156; 76770; 80048; 80053; 81003; 82570; 83735; 84132; 84300; 84540; 84550; 85025; 85652; 86140; 87040; 94640; 94760; 96372; 96374; 96376; 99285

== ENCOUNTER 2019-09-20 22:52 | Inpatient (IN) | payer MEDICARE ==
--- NOTE | 2019-09-21 00:11 | ED ---
Fever HPI - General Chief Complaint: Fever Stated Complaint: Pain in neck/back/legs,Fever Time Seen by Provider: 09/20/19 23:27 Source: patient, family Mode of arrival: wheelchair Limitations: no limitations - Related Data Home Medications Medication Instructions Recorded Confirmed Nitroglycerin Sl Tabs [Nitrostat] 0.4 mg SUBLINGUAL Q5M PRN 03/09/14 09/03/19 Omeprazole [PriLOSEC] 20 mg PO HS 03/09/14 09/03/19 Atorvastatin [Lipitor] 80 mg PO DAILY 05/08/15 09/03/19 Tamsulosin HCl [Flomax] 0.4 mg PO HS 10/09/16 09/03/19 Fluticasone/Vilanterol [Breo 1 puff INHALATION RT-DAILY 03/12/18 09/03/19 Ellipta 100-25 Mcg Inhaler] Insulin Glargine [Lantus] 30 unit SQ HS 03/25/18 09/03/19 Aspirin 325 mg PO DAILY 09/02/19 09/03/19 Glimepiride [Amaryl] 2 mg PO AC-BRKFST 09/02/19 09/03/19 Ipratropium-Albuterol Nebulize 3 ml INHALATION RT-QID 09/02/19 09/03/19 [Duoneb 0.5 mg-3 mg/3 ml Soln] Metoprolol Tartrate 25 mg PO BID 09/02/19 09/03/19 Pramipexole Di-HCl [Mirapex] 1 mg PO DAILY 09/02/19 09/03/19 traMADol HCL 50 mg PO DAILY PRN 09/02/19 09/03/19 Previous Rx's Medication Instructions Recorded Potassium Chloride ER [K-Dur 20] 20 meq PO BID #0 03/15/18 Allopurinol [Zyloprim] 200 mg PO DAILY #30 tab 09/08/19 Furosemide [Lasix] 80 mg PO BID #60 tab 09/08/19 HYDROcodone/APAP 5-325MG [Lamar 1 each PO Q6HR PRN #12 tab 09/08/19 5-325] INSULIN ASPART (NovoLOG) [NovoLOG 10 unit SQ AC-TID #1 vial 09/08/19 (formulary)] Lidocaine 5% Patch [Lidoderm 5% 1 patch TOPICAL DAILY #7 patch 09/08/19 Patch] predniSONE See Taper PO DIRECTED #30 tab 09/08/19 Allergies Allergy/AdvReac Type Severity Reaction Status Date / Time prednisone AdvReac "MADE ME Verified 09/20/19 23:24 VERY ANGRY" Review of Systems ROS Statement: Those systems with pertinent positive or pertinent negative responses have been documented in the HPI. ROS Other: All systems not noted in ROS Statement are negative. Past Medical History Past Medical History: Coronary Artery Disease (CAD), Chest Pain / Angina, Heart Failure, COPD, GERD/Reflux, Hyperlipidemia, Hypertension, Osteoarthritis (OA), Pneumonia, Prostate Disorder, Respiratory Disorder, Sleep Apnea/CPAP/BIPAP Additional Past Medical History / Comment(s): Spondylolsis, cervical and low back pain, DDD, chronic respiratory failure, CALLI with Cpap/O2 at 4L/NC at HS, nonsustained vtach, TIAs, small vessel disease, IDDM type II, diverticular disease, colon polyps-benign, sinus problems, seasonal allergies History of Any Multi-Drug Resistant Organisms: None Reported Past Surgical History: Back Surgery, Heart Catheterization With Stent, Joint Replacement, Orthopedic Surgery Additional Past Surgical History / Comment(s): Bilateral knee arthroscopies, total L knee arthroplasty, R total shoulder arthroplasty, L hand injury with repair, PCI with 3 stents, colonoscopies/polypectomies, lumbar epidural injections, bilateral cataract removals/lens implants. Past Anesthesia/Blood Transfusion Reactions: No Reported Reaction Additional Past Anesthesia/Blood Transfusion Reaction / Comment(s): STATES "HAD A HARD TIME WITH BREATHING POST OP" Date of Last Stent Placement:: 2009 Past Psychological History: No Psychological Hx Reported Smoking Status: Former smoker - Past Family History Father Family Medical History: CVA/TIA, Hyperlipidemia, Hypertension Mother Family Medical History: Hypertension General Exam Limitations: no limitations Course Vital Signs 09/20/19 09/21/19 09/21/19 23:19 01:22 01:30 Temperature 99.2 F Pulse Rate 93 Respiratory 20 Rate Blood Pressure 133/72 132/68 132/68 O2 Sat by Pulse 95 95 Oximetry 09/21/19 09/21/19 02:00 02:30 Temperature Pulse Rate Respiratory Rate Blood Pressure 119/59 O2 Sat by Pulse 93 L 95 Oximetry Medical Decision Making - Lab Data Result diagrams: 09/21/19 00:53 09/21/19 00:53 Lab Results 09/21/19 09/21/19 09/21/19 Range/Units 00:53 00:53 00:53 WBC 15.0 H (3.8-10.6) k/uL RBC 4.23 L (4.30-5.90) m/uL Hgb 13.0 (13.0-17.5) gm/dL Hct 40.0 (39.0-53.0) % MCV 94.4 (80.0-100.0) fL MCH 30.7 (25.0-35.0) pg MCHC 32.5 (31.0-37.0) g/dL RDW 14.4 (11.5-15.5) % Plt Count 216 (150-450) k/uL Neutrophils % 83 % Lymphocytes % 9 % Monocytes % 6 % Eosinophils % 1 % Basophils % 0 % Neutrophils # 12.4 H (1.3-7.7) k/uL Lymphocytes # 1.3 (1.0-4.8) k/uL Monocytes # 0.9 (0-1.0) k/uL Eosinophils # 0.2 (0-0.7) k/uL Basophils # 0.1 (0-0.2) k/uL PT 9.8 (9.0-12.0) sec INR 0.9 (<1.2) APTT 19.6 L (22.0-30.0) sec D-Dimer 3.89 H (<0.60) mg/L FEU Sodium 136 L (137-145) mmol/L Potassium 3.0 L (3.5-5.1) mmol/L Chloride 98 (98-107) mmol/L Carbon Dioxide 27 (22-30) mmol/L Anion Gap 11 mmol/L BUN 24 H (9-20) mg/dL Creatinine 0.85 (0.66-1.25) mg/dL Est GFR (CKD-EPI)AfAm >90 (>60 ml/min/1.73 sqM) Est GFR (CKD-EPI)NonAf 88 (>60 ml/min/1.73 sqM) Glucose 77 (74-99) mg/dL Plasma Lactic Acid Teo (0.7-2.0) mmol/L Calcium 8.7 (8.4-10.2) mg/dL Magnesium 1.2 L (1.6-2.3) mg/dL Total Bilirubin 0.8 (0.2-1.3) mg/dL AST 30 (17-59) U/L ALT 34 (4-49) U/L Alkaline Phosphatase 123 (38-126) U/L Lactate Dehydrogenase 694 H (313-618) U/L C-Reactive Protein 182.5 H (<10.0) mg/L Total Protein 6.2 L (6.3-8.2) g/dL Albumin 3.5 (3.5-5.0) g/dL 09/21/19 Range/Units 01:21 WBC (3.8-10.6) k/uL RBC (4.30-5.90) m/uL Hgb (13.0-17.5) gm/dL Hct (39.0-53.0) % MCV (80.0-100.0) fL MCH (25.0-35.0) pg MCHC (31.0-37.0) g/dL RDW (11.5-15.5) % Plt Count (150-450) k/uL Neutrophils % % Lymphocytes % % Monocytes % % Eosinophils % % Basophils % % Neutrophils # (1.3-7.7) k/uL Lymphocytes # (1.0-4.8) k/uL Monocytes # (0-1.0) k/uL Eosinophils # (0-0.7) k/uL Basophils # (0-0.2) k/uL PT (9.0-12.0) sec INR (<1.2) APTT (22.0-30.0) sec D-Dimer (<0.60) mg/L FEU Sodium (137-145) mmol/L Potassium (3.5-5.1) mmol/L Chloride (98-107) mmol/L Carbon Dioxide (22-30) mmol/L Anion Gap mmol/L BUN (9-20) mg/dL Creatinine (0.66-1.25) mg/dL Est GFR (CKD-EPI)AfAm (>60 ml/min/1.73 sqM) Est GFR (CKD-EPI)NonAf (>60 ml/min/1.73 sqM) Glucose (74-99) mg/dL Plasma Lactic Acid Teo 1.4 (0.7-2.0) mmol/L Calcium (8.4-10.2) mg/dL Magnesium (1.6-2.3) mg/dL Total Bilirubin (0.2-1.3) mg/dL AST (17-59) U/L ALT (4-49) U/L Alkaline Phosphatase (38-126) U/L Lactate Dehydrogenase (313-618) U/L C-Reactive Protein (<10.0) mg/L Total Protein (6.3-8.2) g/dL Albumin (3.5-5.0) g/dL - EKG Data -: EKG Interpreted by Me (EKG shows sinus rhythm of 87, [place] 142 QRS 110 QTc 471) Disposition Clinical Impression: Fever, Weakness, COPD (chronic obstructive pulmonary disease), Generalized pain, Hypokalemia, Viral infection Disposition: ADMITTED IP TO THIS HOSP Condition: Fair Is patient prescribed a controlled substance at d/c from ED?: No Referrals: Rk Keene III, MD [Primary Care Provider] - 1-2 days
[2019-09-21] MEDS ORDERED: HYDROmorphone 1 MG/ML 1 ML SYRINGE IVP STA (01:07)
[2019-09-21] MEDS ORDERED: ACETAMINOPHEN TAB 500 MG TAB PO STA (01:07)
--- NOTE | 2019-09-21 01:09 | XR ---
EXAMINATION TYPE: XR chest 1V portable DATE OF EXAM: 09/21/2019 COMPARISON: 09/04/2019 HISTORY: COPD Short of breath TECHNIQUE: Single view FINDINGS: There is no heart failure nor confluent pneumonic infiltrate. There is some linear density at the judy g bases. Heart size is normal. Bony thorax is intact. IMPRESSION: Minimal scarring and subsegmental atelectasis at the lung bases not significantly differe nt than old exam. Normal heart.
[2019-09-21 01:15] LABS: Basophils # (A) 0.1 k/uL (0-0.2); Basophils % (A) 0 %; Eosinophils # (A) 0.2 k/uL (0-0.7); Eosinophils % (A) 1 %; Lymphocytes # (A) 1.3 k/uL (1.0-4.8); Lymphocytes % (A) 9 %; MCH 30.7 pg (25.0-35.0); MCHC 32.5 g/dL (31.0-37.0); MCV 94.4 fL (80.0-100.0); Mean Platelet Volume 9.1; Monocytes # (A) 0.9 k/uL (0-1.0); Monocytes % (A) 6 %; Neutrophils # (A) 12.4 k/uL (1.3-7.7); Neutrophils % (A) 83 %; Platelet Count 216 k/uL (150-450); RBC 4.23 m/uL (4.30-5.90); RDW 14.4 % (11.5-15.5)
[2019-09-21 01:26] LABS: ALT 34 U/L (4-49); AST 30 U/L (17-59); African American GFR (CKD) >90 (>60 ml/min/1.73 sqM); Albumin 3.5 g/dL (3.5-5.0); Alkaline Phosphatase 123 U/L (38-126); Anion Gap 11 mmol/L; Blood Urea Nitrogen 24 mg/dL (9-20); Calcium 8.7 mg/dL (8.4-10.2); Carbon Dioxide 27 mmol/L (22-30); Chloride 98 mmol/L (98-107); Glucose 77 mg/dL (74-99); LDH 694 U/L (313-618); Magnesium 1.2 mg/dL (1.6-2.3); Non-African American GFR(CKD) 88 (>60 ml/min/1.73 sqM); Sodium 136 mmol/L (137-145); Total Bilirubin 0.8 mg/dL (0.2-1.3); Total Protein 6.2 g/dL (6.3-8.2)
[2019-09-21 01:34] LABS: INR 0.9 (<1.2); Prothrombin Time 9.8 sec (9.0-12.0)
[2019-09-21 01:44] LABS: C Reactive Protein 182.5 mg/L (<10.0)
[2019-09-21 01:54] LABS: D-Dimer 3.89 mg/L FEU (<0.60); Partial Thromboplastin Time 19.6 sec (22.0-30.0)
[2019-09-21] MEDS ORDERED: MAGNESIUM OXIDE 400 MG TAB PO STA (01:56)
[2019-09-21] MEDS ORDERED: FUROSEMIDE 10 MG/ML 4 ML VIAL IV STA ×2 (01:56→10:31)
[2019-09-21] MEDS ORDERED: POTASSIUM BICARBONATE/CIT AC 20 MEQ TABLET.EFF PO ONE (01:57)
[2019-09-21] MEDS: MAGNESIUM SULFATE-D5W PMX 1 GM in DEXTROSE/WATER 1 100ML.BAG IVPB SCH ×2 (02:44→04:05)
--- NOTE | 2019-09-21 03:11 | CT ---
EXAMINATION TYPE: CT angio chest DATE OF EXAM: 09/21/2019 COMPARISON: 04/01/2018 HISTORY: Chest pain CT DLP: 689 mGycm Automated exposure control for dose reduction was used. CONTRAST: Performed with IV Contrast, patient injected with 80 mL of Isovue 370. Multiple axial sections were obtained from the thoracic inlet to the diaphragm with IV contrast and 3 -D post processed images. FINDINGS: There is patchy interstitial infiltrates and atelectasis in both lungs. There is no suspicious pulmon donnell mass. There is no pleural effusion. Heart appears normal. There is no pericardial effusion. There are no hilar masses. There is no mediastinal adenopathy. Thoracic aorta is intact. There is no aneurysm or dissection. There is normal contrast opacification of the pulmonary arteries. There are no filling defects. Thoracic spine is intact. Bony thorax is intact. IMPRESSION: No evidence of pulmonary embolism. Patchy bilateral pulmonary interstitial infiltrates and atelectasis are increased compared to old exa m.
[2019-09-21] MEDS ORDERED: IPRATROPIUM-ALBUTEROL 3 ML NEB INHALATION STA (03:35)
[2019-09-21] MEDS ORDERED: IPRATROPIUM-ALBUTEROL 3 ML NEB INHALATION PRN (03:35)
[2019-09-21] MEDS: HYDROmorphone 1 MG/ML 1 ML SYRINGE IVP PRN ×3 (05:40→18:13)
--- NOTE | 2019-09-21 08:17 | US ---
EXAMINATION TYPE: US venous doppler duplex LE DATE OF EXAM: 09/21/2019 7:57 AM COMPARISON: NONE CLINICAL HISTORY: pain. pain and edema bilateral legs SIDE PERFORMED: bilateral TECHNIQUE: The lower extremity deep venous system is examined utilizing real time linear array sonog althea with graded compression, doppler sonography and color-flow sonography. VESSELS IMAGED: External Iliac Vein (EIV) Common Femoral Vein Deep Femoral Vein Greater Saphenous Vein * Femoral Vein Popliteal Vein Small Saphenous Vein * Proximal Calf Veins (* superficial vessels) Right Leg: No evidence of DVT Left Leg: no evidence of DVT IMPRESSION: No evidence for DVT at this time.
[2019-09-21] MEDS: methylPREDNISolone SOD SUCCI 40 MG/ML 1 ML VIAL IV SCH ×2 (11:26→18:07)
[2019-09-21 11:50] LABS: Ferritin 243.9 ng/mL (22.0-322.0)
[2019-09-21] MEDS ORDERED: traMADol 50 MG TAB PO PRN (12:33)
[2019-09-21] MEDS ORDERED: NITROGLYCERIN SL TABS 0.4 MG TAB SUBLINGUAL PRN (12:33)
--- NOTE | 2019-09-21 12:49 | P.CNPUL ---
History of Present Illness Consult date: 09/21/19 Requesting physician: Jyaden Florian Reason for consult: other Chief complaint: Neck pain, back pain, weakness History of present illness: 69-year-old patient who sees Dr. Torres in the outpatient pulmonary clinic for history of advanced COPD on home oxygen, previous episodes of pneumonia, coronary artery disease with previous stenting, type 2 diabetes mellitus, CHF with diastolic dysfunction, hypertension and hypercholesterolemia, obstructive sleep apnea syndrome on CPAP, obesity, osteoarthritis, former smoker, degenerative joint disease who was recently in the hospital for intractable cervical neck pain, lumbar pain secondary to severe stenosis and degenerative disc disease and acute exacerbation of COPD. Patient was supposed to have a cervical epidural steroid injection, however in view of his significant steroid- induced hyperglycemia the procedure was postponed until his blood sugars were under better control. he was treated and discharged home on 09/08/2019. On 09/21/2019 patient presents to the emergency department for evaluation of pain in his neck, back, legs, weakness. The ER documentation also mentions fever, patient did not mention fever to us. He denies any pulmonary complaints, no worsening shortness of breath, he normally wears 4 L of oxygen at home, he uses his CPAP nightly. He denies any coughing, or phlegm production, he is been complaint is weakness and pain in his neck back and legs. His vitals were 99.2F orally on presentation, pulse ox was 95% on room air, blood pressures 133/72, respiratory rate is 20, normal sinus rhythm on the monitor, EKG showed normal sinus ECG. Chest x-ray showed minimal scarring and subsegmental atelectasis at the lung bases. Labs showed a white blood cell count of 15.0, hemoglobin is 13, d-dimer was 3.89, sodium was 136, potassium is 3.0, chloride is 98, CO2 is 27, B1 is 24, creatinine 0.85, plasma lactic acid was within normal limits at 1.4, LFTs were within normal limits, LDH was 694, CRP was 182.5 , pro calcitonin was 0.29. CTA chest showed no evidence of pulmonary embolism, and showed patchy bilateral pulmonary interstitial infiltrates and atelectasis. COVID 19 testing has been collected and sent, pending at this time. Patient has 2+ lower extremity edema, he was given a dose of IV Lasix in the emergency department. He is resting on the gurney, mostly complaining of neck and back pain. Review of Systems All systems: negative Constitutional: Reports weakness, Denies chills, Denies fever Eyes: denies blurred vision, denies pain Ears, nose, mouth and throat: Denies headache, Denies sore throat Cardiovascular: Denies chest pain, Denies shortness of breath Respiratory: Denies cough Gastrointestinal: Denies abdominal pain, Denies diarrhea, Denies nausea, Denies vomiting Musculoskeletal: Reports limitation of motion, Reports low back pain, Denies myalgias Integumentary: Denies pruritus, Denies rash Neurological: Denies numbness, Denies weakness Psychiatric: Denies anxiety, Denies depression Endocrine: Denies fatigue, Denies weight change Past Medical History Past Medical History: Coronary Artery Disease (CAD), Chest Pain / Angina, Heart Failure, COPD, GERD/Reflux, Hyperlipidemia, Hypertension, Osteoarthritis (OA), Pneumonia, Prostate Disorder, Respiratory Disorder, Sleep Apnea/CPAP/BIPAP Additional Past Medical History / Comment(s): Spondylolsis, cervical and low back pain, DDD, chronic respiratory failure, CALLI with Cpap/O2 at 4L/NC at HS, nonsustained vtach, TIAs, small vessel disease, IDDM type II, diverticular disease, colon polyps-benign, sinus problems, seasonal allergies History of Any Multi-Drug Resistant Organisms: None Reported Past Surgical History: Back Surgery, Heart Catheterization With Stent, Joint Replacement, Orthopedic Surgery Additional Past Surgical History / Comment(s): Bilateral knee arthroscopies, total L knee arthroplasty, R total shoulder arthroplasty, L hand injury with repair, PCI with 3 stents, colonoscopies/polypectomies, lumbar epidural injections, bilateral cataract removals/lens implants. Past Anesthesia/Blood Transfusion Reactions: No Reported Reaction Additional Past Anesthesia/Blood Transfusion Reaction / Comment(s): STATES "HAD A HARD TIME WITH BREATHING POST OP" Date of Last Stent Placement:: 2009 Past Psychological History: No Psychological Hx Reported Smoking Status: Former smoker - Past Family History Father Family Medical History: CVA/TIA, Hyperlipidemia, Hypertension Mother Family Medical History: Hypertension Medications and Allergies Home Medications Medication Instructions Recorded Confirmed Type Nitroglycerin Sl Tabs [Nitrostat] 0.4 mg SUBLINGUAL Q5M PRN 03/09/09/21/19 History Omeprazole [PriLOSEC] 20 mg PO HS 12/17/14 06/30/20 History Atorvastatin [Lipitor] 80 mg PO DAILY 05/08/15 09/21/19 History Tamsulosin HCl [Flomax] 0.4 mg PO HS 10/09/16 09/21/19 History Fluticasone/Vilanterol [Breo 1 puff INHALATION RT-DAILY 03/12/18 09/21/19 History Ellipta 100-25 Mcg Inhaler] Potassium Chloride ER [K-Dur 20] 20 meq PO BID #0 03/15/18 09/21/19 Rx Insulin Glargine [Lantus] 30 unit SQ HS 03/25/18 09/21/19 History Aspirin 325 mg PO DAILY 09/02/19 09/21/19 History Glimepiride [Amaryl] 2 mg PO AC-BRKFST 09/02/19 09/21/19 History Ipratropium-Albuterol Nebulize 3 ml INHALATION RT-QID 09/02/19 09/21/19 History [Duoneb 0.5 mg-3 mg/3 ml Soln] Metoprolol Tartrate 25 mg PO BID 09/02/19 09/21/19 History Pramipexole Di-HCl [Mirapex] 1 mg PO DAILY 09/02/19 09/21/19 History traMADol HCL 50 mg PO DAILY PRN 09/02/19 09/21/19 History Allopurinol [Zyloprim] 200 mg PO DAILY #30 tab 09/08/19 09/21/19 Rx Furosemide [Lasix] 80 mg PO BID #60 tab 09/08/19 09/21/19 Rx HYDROcodone/APAP 5-325MG [[place] 1 each PO Q6HR PRN #12 tab 09/08/19 09/21/19 Rx 5-325] INSULIN ASPART (NovoLOG) [NovoLOG 10 unit SQ AC-TID #1 vial 09/08/19 09/21/19 Rx (formulary)] Lidocaine 5% Patch [Lidoderm 5% 1 patch TOPICAL DAILY #7 patch 09/08/19 09/21/19 Rx Patch] Allergies Allergy/AdvReac Type Severity Reaction Status Date / Time prednisone AdvReac "MADE ME Verified 09/21/19 08:24 VERY ANGRY" Physical Exam Vitals: Vital Signs Temp Pulse Resp BP Pulse Ox 09/21/19 11:20 141/73 09/21/19 10:30 96 18 142/70 98 09/21/19 10:29 98.6 F 09/21/19 08:36 92 09/21/19 08:24 90 09/21/19 05:19 98 09/21/19 05:09 94 09/21/19 02:30 95 09/21/19 02:00 119/59 93 L 09/21/19 01:30 132/68 95 09/21/19 01:22 132/68 09/20/19 23:19 99.2 F 93 20 133/72 95 Intake and Output 09/20/19 09/21/19 09/21/19 22:59 06:59 14:59 Other: Weight 104.326 kg GENERAL EXAM: Alert, 69-year-old white male, resting on the gurney in the emergency department on room air, with a pulse ox of 95%, comfortable in no apparent distress. Patient has significant amount of pain in his back with turning HEAD: Normocephalic/atraumatic. EYES: Normal reaction of pupils, equal size. Conjunctiva pink, sclera white. NOSE: Clear with pink turbinates. THROAT: No erythema or exudates. NECK: No masses, no JVD, no thyroid enlargement, no adenopathy. CHEST: No chest wall deformity. Symmetrical expansion. LUNGS: Equal air entry with no crackles, wheeze, rhonchi or dullness. CVS: Regular rate and rhythm, normal S1 and S2, no gallops, no murmurs, no rubs ABDOMEN: Soft, nontender. No hepatosplenomegaly, normal bowel sounds, no guarding or rigidity. EXTREMITIES: No clubbing, 2+ lower extremity edema, no cyanosis, 2+ pulses and upper and lower extremities. MUSCULOSKELETAL: Muscle strength and tone normal. SPINE: No scoliosis or deformity SKIN: No rashes CENTRAL NERVOUS SYSTEM: Alert and oriented -3. No focal deficits, tone is normal in all 4 extremities. PSYCHIATRIC: Alert and oriented -3. Appropriate affect. Intact judgment and insight. Results - Laboratory Findings CBC and BMP: 09/21/19 00:53 09/21/19 00:53 PT/INR, D-dimer PT 9.8 sec (9.0-12.0) 09/21/19 00:53 INR 0.9 (<1.2) 09/21/19 00:53 D-Dimer 3.89 mg/L FEU (<0.60) H 09/21/19 00:53 Abnormal lab findings: Abnormal Labs 09/21/19 09/21/19 09/21/19 00:53 00:53 00:53 WBC 15.0 H RBC 4.23 L Neutrophils # 12.4 H APTT 19.6 L D-Dimer 3.89 H Sodium 136 L Potassium 3.0 L BUN 24 H Magnesium 1.2 L Lactate Dehydrogenase 694 H C-Reactive Protein 182.5 H Total Protein 6.2 L Procalcitonin 09/21/19 00:53 WBC RBC Neutrophils # APTT D-Dimer Sodium Potassium BUN Magnesium Lactate Dehydrogenase C-Reactive Protein Total Protein Procalcitonin 0.29 H - Diagnostic Findings Chest x-ray: report reviewed, image reviewed CT scan - chest: report reviewed, image reviewed Assessment and Plan Plan: Assessment: #1. Neck, and back pain, likely related to known history of severe stenosis and degenerative disc disease #2. Weakness and reported fever, COVID 19 testing is in progress, chest x-ray showed minimal scarring and subsegmental atelectasis at the lung bases, CTA chest showed patchy bilateral pulmonary interstitial infiltrates and atelectasis. However patient denies any respiratory symptoms #3. Recent hospitalization for acute COPD exacerbation and intractable neck and back pain #4. History of advanced COPD on home oxygen, baseline FEV1 is 1.71 L or 58% of predicted consistent with stage III COPD with chronic hypoxemic respiratory failure #5. Elevated d-dimer, CTA chest negative for any evidence of pulmonary emb olism, lower extremity Dopplers were negative for DVT #6. Elevated pro-calcitonin rule out infectious process #7. Lower extremity edema #8. Coronary artery disease with previous stenting #9. Diabetes mellitus type 2 #10. Hypertension #11. Hypercholesterolemia #12. GERD/reflux #13. Obstructive sleep apnea on CPAP, compliant #14. Osteoarthritis #15. 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 We'll give the patient additional dose of IV Lasix, and his best restarted on his home dose Lasix 80 mg twice daily, we'll send her proBNP level. Infectious disease consultation was requested, we'll send a UA, we'll continue to follow I performed a history & physical examination of the patient and discussed their management with my nurse practitioner, Skylar Mckoy. I reviewed the nurse practitioner's note and agree with the documented findings and plan of care. Lung sounds are positive for diminished breath sounds. The findings and the impression was discussed with the patient. I attest to the documentation by the nurse practitioner. Yuli Alexis statement Time with Patient: Greater than 30
[2019-09-21] MEDS: LEVOFLOXACIN 500 MG TAB PO SCH (14:00)
[2019-09-21] MEDS ORDERED: Potassium Replacement Protocol 1 EACH MISC MISCELLANE PRN (15:17)
--- NOTE | 2019-09-21 15:24 | P.HPIM ---
History of Present Illness 69-year-old male was seen in [facility] for generalized body aches, with the multiple joint pains. Patient does have history of chronic back pain. Patient was recently discharged from hospital. Patient is supposed to receive epidural steroid injection in the cervical area for degenerative disc disease. Patient is comparing of generalized weakness. Patient had low-grade fever here as per the ER documentation. Patient had a fever although patient denied any such symptoms and patient has temperatures 99.2 here . Patient chest x-ray did not show any pneumonic process patient does have leukocytosis, patient does have elevated lactic LDH normal proBNP elevated C-reactive protein along with some lymphopenia because of which there is concern for covid because of which patient is being admitted and patient was started on. Patient has normal ejection fraction the past Sulfa diastolic Systolic dysfunction the past although patient is on Lasix at home. Patient was evaluated by pulmonology and patient was started on levofloxacin systemic steroids at this time. CT angios the chest did not show any pulmonary embolism although this showed some patchy bilateral interstitial infiltrates and elevated lactic acidosis. Patient has bilateral lower extremity edema which is chronic does have moderate pulmonary hypertension. Review of Systems REVIEW OF SYSTEMS: CONSTITUTIONAL: As mentioned in HPI HEENT: No recent visual problems or hearing problems. Denied any sore throat. CARDIOVASCULAR: No chest pain, orthopnea, PND, no palpitations, no syncope. PULMONARY: No shortness of breath, no cough, no hemoptysis. GASTROINTESTINAL: No diarrhea, no nausea, no vomiting, no abdominal pain. NEUROLOGICAL: No headaches, no weakness, no numbness. HEMATOLOGICAL: Denies any bleeding or petechiae. GENITOURINARY: Denies any burning micturition, frequency, or urgency. MUSCULOSKELETAL/RHEUMATOLOGICAL: Denies any joint pain, swelling, or any muscle pain. ENDOCRINE: Denies any polyuria or polydipsia. The rest of the 14-point review of systems is negative. Past Medical History Past Medical History: Coronary Artery Disease (CAD), Chest Pain / Angina, Heart Failure, COPD, GERD/Reflux, Hyperlipidemia, Hypertension, Osteoarthritis (OA), Pneumonia, Prostate Disorder, Respiratory Disorder, Sleep Apnea/CPAP/BIPAP Additional Past Medical History / Comment(s): Spondylolsis, cervical and low back pain, DDD, chronic respiratory failure, CALLI with Cpap/O2 at 4L/NC at HS, nonsustained vtach, TIAs, small vessel disease, IDDM type II, diverticular disease, colon polyps-benign, sinus problems, seasonal allergies History of Any Multi-Drug Resistant Organisms: None Reported Past Surgical History: Back Surgery, Heart Catheterization With Stent, Joint Replacement, Orthopedic Surgery Additional Past Surgical History / Comment(s): Bilateral knee arthroscopies, total L knee arthroplasty, R total shoulder arthroplasty, L hand injury with repair, PCI with 3 stents, colonoscopies/polypectomies, lumbar epidural injections, bilateral cataract removals/lens implants. Past Anesthesia/Blood Transfusion Reactions: No Reported Reaction Additional Past Anesthesia/Blood Transfusion Reaction / Comment(s): STATES "HAD A HARD TIME WITH BREATHING POST OP" Date of Last Stent Placement:: 2009 Past Psychological History: No Psychological Hx Reported Smoking Status: Former smoker - Past Family History Father Family Medical History: CVA/TIA, Hyperlipidemia, Hypertension Mother Family Medical History: Hypertension Medications and Allergies Home Medications Medication Instructions Recorded Confirmed Type Nitroglycerin Sl Tabs [Nitrostat] 0.4 mg SUBLINGUAL Q5M PRN 03/09/14 09/21/19 History Omeprazole [PriLOSEC] 20 mg PO HS 03/09/14 09/21/19 History Atorvastatin [Lipitor] 80 mg PO DAILY 05/08/15 09/21/19 History Tamsulosin HCl [Flomax] 0.4 mg PO HS 10/09/16 09/21/19 History Fluticasone/Vilanterol [Breo 1 puff INHALATION RT-DAILY 03/12/18 09/21/19 History Ellipta 100-25 Mcg Inhaler] Potassium Chloride ER [K-Dur 20] 20 meq PO BID #0 03/15/18 09/21/19 Rx Insulin Glargine [Lantus] 30 unit SQ HS 03/25/18 09/21/19 History Aspirin 325 mg PO DAILY 09/02/19 09/21/19 History Glimepiride [Amaryl] 2 mg PO AC-BRKFST 09/02/19 09/21/19 History Ipratropium-Albuterol Nebulize 3 ml INHALATION RT-QID 09/02/19 09/21/19 History [Duoneb 0.5 mg-3 mg/3 ml Soln] Metoprolol Tartrate 25 mg PO BID 09/02/19 09/21/19 History Pramipexole Di-HCl [Mirapex] 1 mg PO DAILY 09/02/19 09/21/19 History traMADol HCL 50 mg PO DAILY PRN 09/02/19 09/21/19 History Allopurinol [Zyloprim] 200 mg PO DAILY #30 tab 09/08/19 09/21/19 Rx Furosemide [Lasix] 80 mg PO BID #60 tab 09/08/19 09/21/19 Rx HYDROcodone/APAP 5-325MG [[place] 1 each PO Q6HR PRN #12 tab 09/08/19 09/21/19 Rx 5-325] INSULIN ASPART (NovoLOG) [NovoLOG 10 unit SQ AC-TID #1 vial 09/08/19 09/21/19 Rx (formulary)] Lidocaine 5% Patch [Lidoderm 5% 1 patch TOPICAL DAILY #7 patch 09/08/19 09/21/19 Rx Patch] Allergies Allergy/AdvReac Type Severity Reaction Status Date / Time prednisone AdvReac "MADE ME Verified 09/21/19 08:24 VERY ANGRY" Physical Exam Vitals: Vital Signs Temp Pulse Resp BP Pulse Ox 09/21/19 11:20 141/73 09/21/19 10:30 96 18 142/70 98 09/21/19 10:29 98.6 F 09/21/19 08:36 92 09/21/19 08:24 90 09/21/19 05:19 98 09/21/19 05:09 94 09/21/19 02:30 95 09/21/19 02:00 119/59 93 L 09/21/19 01:30 132/68 95 09/21/19 01:22 132/68 09/20/19 23:19 99.2 F 93 20 133/72 95 Intake and Output 09/21/19 09/21/19 09/21/19 06:59 14:59 22:59 Other: Weight 104.326 kg PHYSICAL EXAMINATION: GENERAL: The patient is alert and oriented x3, not in any acute distress. Obese, does appear to be fatigued HEENT: Pupils are round and equally reacting to light. EOMI. No scleral icterus. No conjunctival pallor. Normocephalic, atraumatic. No pharyngeal erythema. No thyromegaly. CARDIOVASCULAR: S1 and S2 present. No murmurs, rubs, or gallops. PULMONARY: Chest is clear to auscultation, no wheezing or crackles. ABDOMEN: Soft, nontender, nondistended, normoactive bowel sounds. No palpable organomegaly. MUSCULOSKELETAL: No joint swelling or deformity. EXTREMITIES: No cyanosis, clubbing, or pedal edema. NEUROLOGICAL: Gross neurological examination did not reveal any focal deficits. SKIN: No rashes. Results CBC & Chem 7: 09/21/19 00:53 09/21/19 00:53 Labs: Abnormal Lab Results - Last 24 Hours (Table) 09/21/19 09/21/19 09/21/19 Range/Units 00:53 00:53 00:53 WBC 15.0 H (3.8-10.6) k/uL RBC 4.23 L (4.30-5.90) m/uL Neutrophils # 12.4 H (1.3-7.7) k/uL APTT 19.6 L (22.0-30.0) sec D-Dimer 3.89 H (<0.60) mg/L FEU Sodium 136 L (137-145) mmol/L Potassium 3.0 L (3.5-5.1) mmol/L BUN 24 H (9-20) mg/dL Magnesium 1.2 L (1.6-2.3) mg/dL Lactate Dehydrogenase 694 H (313-618) U/L C-Reactive Protein 182.5 H (<10.0) mg/L Total Protein 6.2 L (6.3-8.2) g/dL Procalcitonin (0.02-0.09) ng/mL 09/21/19 Range/Units 00:53 WBC (3.8-10.6) k/uL RBC (4.30-5.90) m/uL Neutrophils # (1.3-7.7) k/uL APTT (22.0-30.0) sec D-Dimer (<0.60) mg/L FEU Sodium (137-145) mmol/L Potassium (3.5-5.1) mmol/L BUN (9-20) mg/dL Magnesium (1.6-2.3) mg/dL Lactate Dehydrogenase (313-618) U/L C-Reactive Protein (<10.0) mg/L Total Protein (6.3-8.2) g/dL Procalcitonin 0.29 H (0.02-0.09) ng/mL Assessment and Plan Plan: Having generalized body aches, with elevated ESR and diffuse interstitial infiltrates.: Etiology is not clear but covid 19, atypical pneumonia and or other viral illnesses cannot be ruled out continue with levofloxacin systemic steroids. -COPD without any acute exacerbation -Chronic neck and back pain. Patient can use to have intractable symptoms of these until imaging again patient has chronic back pain without any red flag signs. -Chronic hypercapnic and hypoxic respiratory failure secondary to COPD and patient is presently on 4 L, patient uses 4 L of oxygen at home -Coronary artery disease with previous stents -Bilateral lower extremity edema: Venous insufficiency without any evidence of skull heart failure or heart failure exacerbation -Type 2 diabetes mellitus patient blood sugars are expected to be uncontrolled patient will be started on sliding scale for systemic steroids -hypertension -Benign prostatic hypertrophy Hypercholesterolemia -Gastroesophageal reflux disease -Obstructive sleep apnea on CPAP machine -History of nicotine dependence with the smoking -DVT and GI prophylaxis
[2019-09-21] MEDS ORDERED: MAGNESIUM SULFATE-D5W PMX 1 GM in DEXTROSE/WATER 1 100ML.BAG IVPB ONE (15:27)
[2019-09-21] MEDS ORDERED: MAGNESIUM SULFATE-D5W PMX 1 GM in DEXTROSE/WATER 1 100ML.BAG IVPB SCH (15:30)
[2019-09-21] MEDS: HYDROcodone/APAP 5-325MG 1 EACH TAB PO PRN ×2 (15:33→21:46)
[2019-09-21] MEDS ORDERED: INSULIN ASPART (NovoLOG) 100 UNIT/ML VIAL SQ SCH (17:30)
[2019-09-21 17:51] LABS: Glucose,Whole Blood 344 mg/dL (75-99)
[2019-09-21] MEDS: FUROSEMIDE 80 MG TAB PO SCH (18:07)
[2019-09-21] MEDS: INSULIN ASPART (NovoLOG) 100 UNIT/ML VIAL SQ SCH ×3 (18:07→21:30)
[2019-09-21] MEDS: POTASSIUM CHLORIDE ER 20 MEQ TAB.ER PO SCH ×3 (19:01→21:47)
[2019-09-21 20:46] LABS: Glucose,Whole Blood 312 mg/dL (75-99)
[2019-09-21] MEDS ORDERED: INSULIN DETEMIR (LEVEMIR) 100 UNIT/ML SYR SQ SCH (21:00)
[2019-09-21] MEDS ORDERED: TAMSULOSIN 0.4 MG CAP.ER.24H PO SCH (21:00)
[2019-09-21] MEDS ORDERED: PANTOPRAZOLE 40 MG TABLET PO SCH (21:00)
[2019-09-21] MEDS: FAMOTIDINE 20 MG TAB PO SCH (21:29)
[2019-09-21] MEDS: METOPROLOL TARTRATE 25 MG TAB PO SCH (21:29)
[2019-09-22] MEDS: methylPREDNISolone SOD SUCCI 40 MG/ML 1 ML VIAL IV SCH ×2 (00:24→07:58)
[2019-09-22] MEDS: HYDROmorphone 1 MG/ML 1 ML SYRINGE IVP PRN ×2 (00:28→07:52)
[2019-09-22 00:59] LABS: Appearance,Urine Clear (Clear); Bilirubin,Urine Negative (Negative); Blood,Urine Negative (Negative); Color,Urine Yellow; Glucose,Urine (UA) 2+ (Negative); Ketones,Urine Negative (Negative); Leukocyte Esterase,Urine Negative (Negative); Nitrite,Urine Negative (Negative); Protein,Urine Negative (Negative); Specific Gravity,Urine 1.011 (1.001-1.035); Urobilinogen,Urine <2.0 mg/dL (<2.0)
[2019-09-22 02:41] LABS: Glucose,Whole Blood 231 mg/dL (75-99)
[2019-09-22] MEDS: HYDROcodone/APAP 5-325MG 1 EACH TAB PO PRN (06:30)
[2019-09-22 06:50] LABS: Glucose,Whole Blood 221 mg/dL (75-99)
[2019-09-22] MEDS ORDERED: GLIMEPIRIDE 2 MG TAB PO SCH (07:30)
[2019-09-22] MEDS: METOPROLOL TARTRATE 25 MG TAB PO SCH (07:50)
[2019-09-22] MEDS: FAMOTIDINE 20 MG TAB PO SCH (07:50)
[2019-09-22] MEDS: INSULIN ASPART (NovoLOG) 100 UNIT/ML VIAL SQ SCH ×4 (07:51→12:12)
[2019-09-22] MEDS: POTASSIUM CHLORIDE ER 20 MEQ TAB.ER PO SCH (07:51)
[2019-09-22] MEDS: FUROSEMIDE 80 MG TAB PO SCH (07:59)
[2019-09-22] MEDS ORDERED: SYMBICORT 80-4.5 MCG INHALER INHALATION SCH (08:00)
[2019-09-22 08:04] LABS: HCT 40.2 % (39.0-53.0); HGB 12.8 gm/dL (13.0-17.5); MCH 30.5 pg (25.0-35.0); MCHC 31.9 g/dL (31.0-37.0); MCV 95.7 fL (80.0-100.0); Mean Platelet Volume 8.9; Platelet Count 238 k/uL (150-450); RDW 14.3 % (11.5-15.5); WBC 19.8 k/uL (3.8-10.6)
[2019-09-22 08:15] LABS: African American GFR (CKD) >90 (>60 ml/min/1.73 sqM); Anion Gap 9 mmol/L; Blood Urea Nitrogen 28 mg/dL (9-20); Carbon Dioxide 28 mmol/L (22-30); Chloride 99 mmol/L (98-107); Glucose 201 mg/dL (74-99); Non-African American GFR(CKD) 89 (>60 ml/min/1.73 sqM); Potassium 4.1 mmol/L (3.5-5.1); Sodium 136 mmol/L (137-145)
[2019-09-22] MEDS ORDERED: ENOXAPARIN 40 MG/0.4 ML SYRINGE SQ SCH (09:00)
[2019-09-22] MEDS ORDERED: PRAMIPEXOLE 1 MG TAB PO SCH (09:00)
[2019-09-22] MEDS ORDERED: LIDOCAINE 5% PATCH TOPICAL SCH (09:00)
[2019-09-22] MEDS ORDERED: ALLOPURINOL 100 MG TAB PO SCH (09:00)
[2019-09-22] MEDS ORDERED: ASPIRIN 325 MG TAB PO SCH (09:00)
[2019-09-22] MEDS ORDERED: ATORVASTATIN 80 MG TAB PO SCH (09:00)
[2019-09-22 10:08] VITALS: BP 144/74; PULSE 78; RESP 18; TEMP 97.6
[2019-09-22 11:27] LABS: Glucose,Whole Blood 306 mg/dL (75-99)
[2019-09-22] MEDS: LEVOFLOXACIN 500 MG TAB PO SCH (12:10)
--- NOTE | 2019-09-22 12:17 | P.PN ---
Subjective Progress Note Date: 09/22/19 69-year-old patient who sees Dr. Torres in the outpatient pulmonary clinic for history of advanced COPD on home oxygen, previous episodes of pneumonia, coronary artery disease with previous stenting, type 2 diabetes mellitus, CHF with diastolic dysfunction, hypertension and hypercholesterolemia, obstructive sleep apnea syndrome on CPAP, obesity, osteoarthritis, former smoker, degenerative joint disease who was recently in the hospital for intractable cervical neck pain, lumbar pain secondary to severe stenosis and degenerative disc disease and acute exacerbation of COPD. Patient was supposed to have a cervical epidural steroid injection, however in view of his significant steroid- induced hyperglycemia the procedure was postponed until his blood sugars were under better control. he was treated and discharged home on 09/08/2019. On 09/21/2019 patient presents to the emergency department for evaluation of pain in his neck, back, legs, weakness. The ER documentation also mentions fever, patient did not mention fever to us. He denies any pulmonary complaints, no worsening shortness of breath, he normally wears 4 L of oxygen at home, he uses his CPAP nightly. He denies any coughing, or phlegm production, he is been complaint is weakness and pain in his neck back and legs. His vitals were 99.2F orally on presentation, pulse ox was 95% on room air, blood pressures 133/72, respiratory rate is 20, normal sinus rhythm on the monitor, EKG showed normal sinus ECG. Chest x-ray showed minimal scarring and subsegmental atelectasis at the lung bases. Labs showed a white blood cell count of 15.0, hemoglobin is 13, d-dimer was 3.89, sodium was 136, potassium is 3.0, chloride is 98, CO2 is 27, B1 is 24, creatinine 0.85, plasma lactic acid was within normal limits at 1.4, LFTs were within normal limits, LDH was 694, CRP was 182.5, pro calcitonin was 0.29. CTA chest showed no evidence of pulmonary embolism, and showed patchy bilateral pulmonary interstitial infiltrates and atelectasis. COVID 19 testing has been collected and sent, pending at this time. Patient has 2+ lower extremity edema, he was given a dose of IV Lasix in the emergency department. He is resting on the gurney, mostly complaining of neck and back pain. The patient is seen today 09/22/2019 in follow-up on the regular medical floor. He is sitting up in chair at the bedside. Awake and alert in no acute distress. Maintaining O2 saturations in the 90s on room air. No worsening shortness of breath, cough or congestion. His neck and back pain is better controlled. White count 19.8. Hemoglobin 12.8. Sodium 136. Potassium 4.1. Creatinine 0.83. Covid 19 testing negative. Objective - Vital Signs Vital signs: Vital Signs Temp 97.6 F 09/22/19 07:00 Pulse 78 09/22/19 07:00 Resp 18 09/22/19 07:00 BP 144/74 09/22/19 07:00 Pulse Ox 95 09/22/19 07:00 Intake & Output 09/21/19 09/22/19 09/22/19 18:59 06:59 18:59 Intake Total 200 Output Total 800 Balance -600 Weight 104.326 kg Intake: Oral 200 Output: Urine 800 Other: Voiding Method Toilet # Voids 1 - Exam GENERAL EXAM: Alert, pleasant 69-year-old male patient, on room air, with a pulse ox of 95%, comfortable in no apparent distress. HEAD: Normocephalic/atraumatic. EYES: Normal reaction of pupils, equal size. Conjunctiva pink, sclera white. NOSE: Clear with pink turbinates. THROAT: No erythema or exudates. NECK: No masses, no JVD, no thyroid enlargement, no adenopathy. CHEST: No chest wall deformity. Symmetrical expansion. LUNGS: Equal air entry with faint end expiratory wheeze, diminished. CVS: Regular rate and rhythm, normal S1 and S2, no gallops, no murmurs, no rubs ABDOMEN: Soft, nontender. No hepatosplenomegaly, normal bowel sounds, no gu arding or rigidity. EXTREMITIES: No clubbing, 2+ lower extremity edema, no cyanosis, 2+ pulses and u pper and lower extremities. MUSCULOSKELETAL: Muscle strength and tone normal. SPINE: No scoliosis or deformity SKIN: No rashes CENTRAL NERVOUS SYSTEM: No focal deficits, tone is normal in all 4 extremities. PSYCHIATRIC: Alert and oriented -3. Appropriate affect. Intact judgment and insight. - Labs CBC & Chem 7: 09/22/19 07:29 09/22/19 07:29 Labs: Abnormal Lab Results - Last 24 Hours (Table) 09/21/19 09/21/1909/21/20 Range/Units 17:49 20:43 00:30 WBC (3.8-10.6) k/uL RBC (4.30-5.90) m/uL Hgb (13.0-17.5) gm/dL Sodium (137-145) mmol/L BUN (9-20) mg/dL Glucose (74-99) mg/dL POC Glucose (mg/dL) 344 H 312 H (75-99) mg/dL Urine Glucose (UA) 2+ H (Negative) 09/22/19 09/22/19 09/22/19 Range/Units 02:40 06:47 07:29 WBC 19.8 H (3.8-10.6) k/uL RBC 4.20 L (4.30-5.90) m/uL Hgb 12.8 L (13.0-17.5) gm/dL Sodium (137-145) mmol/L BUN (9-20) mg/dL Glucose (74-99) mg/dL POC Glucose (mg/dL) 231 H 221 H (75-99) mg/dL Urine Glucose (UA) (Negative) 09/22/19 09/22/19 Range/Units 07:29 11:24 WBC (3.8-10.6) k/uL RBC (4.30-5.90) m/uL Hgb (13.0-17.5) gm/dL Sodium 136 L (137-145) mmol/L BUN 28 H (9-20) mg/dL Glucose 201 H (74-99) mg/dL POC Glucose (mg/dL) 306 H (75-99) mg/dL Urine Glucose (UA) (Negative) Microbiology - Last 24 Hours (Table) 09/21/19 00:53 Blood Culture - Preliminary Blood No Growth after 24 hours Assessment and Plan Assessment: #1. Neck, and back pain, likely related to known history of severe stenosis and degenerative disc disease #2. Weakness and reported fever, COVID 19 testing negative, chest x-ray showed minimal scarring and subsegmental atelectasis at the lung bases, CTA chest showed patchy bilateral pulmonary interstitial infiltrates and atelectasis. However patient denies any respiratory symptoms #3. Recent hospitalization for acute COPD exacerbation and intractable neck and back pain #4. History of advanced COPD on home oxygen, baseline FEV1 is 1.71 L or 58% of predicted consistent with stage III COPD with chronic hypoxemic respiratory failure #5. Elevated d-dimer, CTA chest negative for any evidence of pulmonary embolism, lower extremity Dopplers were negative for DVT #6. Elevated pro-calcitonin rule out infectious process #7. Lower extremity edema #8. Coronary artery disease with previous stenting #9. Diabetes mellitus type 2 #10. Hypertension #11. Hypercholesterolemia #12. GERD/reflux #13. Obstructive sleep apnea on CPAP, compliant #14. Osteoarthritis #15. 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 Chang He is stable from the pulmonary standpoint Complete a prednisone taper Follow-up in our office as scheduled I, the cosigning physician, performed a history & physical examination of the patient. Lungs sounds with faint end expiratory wheeze, diminished. Maintaining good O2 saturations in the 90s on room air. I discussed the assessment and plan of care with my nurse practitioner, Judi Crawford. I attest to the above note as dictated by her.
--- NOTE | 2019-09-22 12:37 | P.CONS ---
History of Present Illness - Reason for Consult Consult date: 09/21/19 fever Requesting physician: Dax Pizarro - Chief Complaint weakness and neck pain x days - History of Present Illness Patient is a 69-year-old male with a past medical history significant for COPD on home O2 also with history of cervical and lumbar spine stenosis in this patient who was recently admitted to this facility with significant pain to the neck and lower back area the patient did have a epidural injection to the cervical spine with some resolution of his pain patient is now presented back to the ER early this morning for symptoms of generalized weakness and is complaining of neck and lower back pain that the pain is been getting worse over the last week or so he denies any history of any trauma describing the pain to be more of a dull aching almost 70 8 out of 10 and radiation patient denies any high-grade fever or URI symptoms denies having any chest pain minimal shortness of breath no minimal cough but no sputum production no nausea no vomiting no abdominal pain or any diarrhea ER report mention fever however the highest temperature he has in the hospital is 99.2 patient did have white count of 15,000 patient did have a chest x-ray we did shows minimal scarring and atelectasis at the lung base not significant different from the old exam patient also have a CT angiogram that has been read no evidence of PE mild patchy bilateral interstitial weighted atelectasis increase compared to old exam patient was noticed to have elevated LDH CRP with concern for possible COVID-19 nasopharyngeal swab has been sent infectious disease was consulted for presumed fever and to rule out covid19 infection. Review of Systems Positive point has been mentioned HPI rest of systems negative Past Medical History Past Medical History: Coronary Artery Disease (CAD), Chest Pain / Angina, Heart Failure, COPD, GERD/Reflux, Hyperlipidemia, Hypertension, Osteoarthritis (OA), Pneumonia, Prostate Disorder, Renal Disease, Respiratory Disorder, Sleep Apnea/CPAP/BIPAP Additional Past Medical History / Comment(s): Pt recently admitted to [facility] on 09/05/19 with intractable neck and lumbar pain/severe spinal stenosis/DDD/exacerbation COPD. Other hx: Spondylolsis, cervical and low back pain, DDD, gout, chronic respiratory failure, CALLI with Cpap/O2 at 4L/NC at HS, nonsustained vtach, TIAs, small vessel disease, IDDM type II, diverticular disease, colon polyps-benign, sinus problems, seasonal allergies History of Any Multi-Drug Resistant Organisms: None Reported Past Surgical History: Back Surgery, Heart Catheterization With Stent, Joint Replacement, Orthopedic Surgery Additional Past Surgical History / Comment(s): Bilateral knee arthroscopies, total L knee arthroplasty, R total shoulder arthroplasty, L hand injury with repair, PCI with 3 stents, colonoscopies/polypectomies, lumbar epidural injections, bilateral cataract removals/lens implants. Past Anesthesia/Blood Transfusion Reactions: No Reported Reaction Additional Past Anesthesia/Blood Transfusion Reaction / Comm: STATES "HAD A HARD TIME WITH BREATHING POST OP" Date of Last Stent Placement:: 2009 Smoking Status: Former smoker - Past Family History Father Family Medical History: CVA/TIA, Hyperlipidemia, Hypertension Mother Family Medical History: Hypertension Medications and Allergies Home Medications Medication Instructions Recorded Confirmed Type Nitroglycerin Sl Tabs [Nitrostat] 0.4 mg SUBLINGUAL Q5M PRN 03/09/14 09/21/19 History Omeprazole [PriLOSEC] 20 mg PO HS 03/09/14 09/21/19 History Atorvastatin [Lipitor] 80 mg PO DAILY 05/08/15 09/21/19 History Tamsulosin HCl [Flomax] 0.4 mg PO HS 10/09/16 09/21/19 History Fluticasone/Vilanterol [Breo 1 puff INHALATION RT-DAILY 03/12/18 09/21/19 History Ellipta 100-25 Mcg Inhaler] Potassium Chloride ER [K-Dur 20] 20 meq PO BID #0 03/15/18 09/21/19 Rx Insulin Glargine [Lantus] 30 unit SQ HS 03/25/18 09/21/19 History Aspirin 325 mg PO DAILY 09/02/19 09/21/19 History Glimepiride [Amaryl] 2 mg PO AC-BRKFST 09/02/19 09/21/19 History Ipratropium-Albuterol Nebulize 3 ml INHALATION RT-QID 09/02/19 09/21/19 History [Duoneb 0.5 mg-3 mg/3 ml Soln] Metoprolol Tartrate 25 mg PO BID 09/02/19 09/21/19 History Pramipexole Di-HCl [Mirapex] 1 mg PO DAILY 09/02/19 09/21/19 History traMADol HCL 50 mg PO DAILY PRN 09/02/19 09/21/19 History Allopurinol [Zyloprim] 200 mg PO DAILY #30 tab 09/08/19 09/21/19 Rx Furosemide [Lasix] 80 mg PO BID #60 tab 09/08/19 09/21/19 Rx HYDROcodone/APAP 5-325MG [[place] 1 each PO Q6HR PRN #12 tab 09/08/19 09/21/19 Rx 5-325] INSULIN ASPART (NovoLOG) [NovoLOG 10 unit SQ AC-TID #1 vial 09/08/19 09/21/19 Rx (formulary)] Lidocaine 5% Patch [Lidoderm 5% 1 patch TOPICAL DAILY #7 patch 09/08/19 09/21/19 Rx Patch] Levofloxacin [Levaquin] 500 mg PO Q24H 5 Days #5 tab 09/22/19 Rx predniSONE 10 mg PO DIRECTED #52 tab 09/22/19 Rx Allergies Allergy/AdvReac Type Severity Reaction Status Date / Time prednisone AdvReac "MADE ME Verified 09/21/19 08:24 VERY ANGRY" Physical Exam Vitals: Vital Signs Temp Pulse Pulse Resp BP BP Pulse Ox 09/21/19 20:30 98.0 F 94 16 160/82 95 09/21/19 16:00 98.3 F 09/21/19 11:20 141/73 09/21/19 10:30 96 18 142/70 98 09/21/19 10:29 98.6 F 09/21/19 08:36 92 09/21/19 08:24 90 09/21/19 05:19 98 09/21/19 05:09 94 09/21/19 02:30 95 09/21/19 02:00 119/59 93 L 09/21/19 01:30 132/68 95 09/21/19 01:22 132/68 Intake and Output 09/21/19 09/21/19 09/22/19 14:59 22:59 06:59 Intake Total 200 Balance 200 Intake: Oral 200 Other: # Voids 1 Weight 104.326 kg GENERAL DESCRIPTION: Elderly male up in the chair, no distress. No tachypnea or accessory muscle of respiration use. HEENT: Shows Pallor , no scleral icterus. Oral mucous membrane is dry. No pharyngeal erythema or thrush NECK: Trachea central, no thyromegaly. LUNGS: Unlabored breathing. Decreased intensity of breath sounds. No wheeze or crackle. HEART: S1, S2, regular rate and rhythm. No loud murmur ABDOMEN: Soft, no tenderness , guarding or rigidity, no organomegaly EXTREMITIES: No edema of feet. SKIN: No rash, no masses palpable. NEUROLOGICAL: The patient is awake, alert, oriented x3, mood and affect normal Results CBC & Chem 7: 09/22/19 07:29 09/22/19 07:29 Labs: Abnormal Lab Results - Last 24 Hours (Table) 09/21/19 09/21/19 09/21/19 Range/Units 00:53 00:53 00:53 WBC 15.0 H (3.8-10.6) k/uL RBC 4.23 L (4.30-5.90) m/uL Neutrophils # 12.4 H (1.3-7.7) k/uL APTT 19.6 L (22.0-30.0) sec D-Dimer 3.89 H (<0.60) mg/L FEU Sodium 136 L (137-145) mmol/L Potassium 3.0 L (3.5-5.1) mmol/L BUN 24 H (9-20) mg/dL POC Glucose (mg/dL) (75-99) mg/dL Magnesium 1.2 L (1.6-2.3) mg/dL Lactate Dehydrogenase 694 H (313-618) U/L C-Reactive Protein 182.5 H (<10.0) mg/L Total Protein 6.2 L (6.3-8.2) g/dL Procalcitonin (0.02-0.09) ng/mL 09/21/19 09/21/19 09/21/19 Range/Units 00:53 17:49 20:43 WBC (3.8-10.6) k/uL RBC (4.30-5.90) m/uL Neutrophils # (1.3-7.7) k/uL APTT (22.0-30.0) sec D-Dimer (<0.60) mg/L FEU Sodium (137-145) mmol/L Potassium (3.5-5.1) mmol/L BUN (9-20) mg/dL POC Glucose (mg/dL) 344 H 312 H (75-99) mg/dL Magnesium (1.6-2.3) mg/dL Lactate Dehydrogenase (313-618) U/L C-Reactive Protein (<10.0) mg/L Total Protein (6.3-8.2) g/dL Procalcitonin 0.29 H (0.02-0.09) ng/mL Assessment and Plan Assessment: patient presented to hospital with generalized weakness in this patient who did have a leukocytosis and elevated CRP and symptom has been mostly neck and lower back pain, there is question of possible cervical spine discitis on previous admission however there is no significant inflammation around the cervical spine on the MRI and his cultures were negative, clinically this admission doubt acute coronary infection as no fever and the patient having respiratory symptoms however may need further work-up to make sure no evidence of any infection of the spine area (1) Leukocytosis Current Visit: Yes Status: Acute Code(s): D72.829 - ELEVATED WHITE BLOOD CELL COUNT, UNSPECIFIED SNOMED Code(s): 495652815 Plan: 1-we will check a procalcitonin level 2-await the blood culture to finalize and covid19 is to be completed 3-if persistent symptoms and persistent elevated inflammatory markers may benefit from repeat MRI of the cervical spine We will follow on clinical condition and cultures to further adjust medication if needed Thank you for this consultation will follow this patient along with you Time with Patient: Greater than 30
--- NOTE | 2019-09-22 15:37 | P.DS ---
Providers Date of admission: 09/21/19 03:35 Expected date of discharge: 09/22/19 Attending physician: Isabell Huertas Consults: 09/21/19 03:35 Consult Physician Routine Consulting Provider: Haritha Yap Consult Reason/Comments: fever Do you want consulting provider notified?: Yes 09/21/19 06:30 Consult Physician Routine Consulting Provider: Shanna Langford Consult Reason/Comments: roCOVID Do you want consulting provider notified?: Yes Primary care physician: Rk Keene [facility] Course: Final diagnosis -generalized body aches, with elevated ESR and diffuse interstitial infiltrates. -Covid 19 ruled out, testing was negative -COPD without any acute exacerbation -Chronic neck and back pain -Chronic hypercapnic and hypoxic respiratory failure secondary to COPD -Coronary artery disease with previous stents -Bilateral lower extremity edema: Venous insufficiency without any evidence of heart failure or heart failure exacerbation -Type 2 diabetes mellitus -hypertension -Benign prostatic hypertrophy -Hypercholesterolemia -Gastroesophageal reflux disease -Obstructive sleep apnea on CPAP machine -History of nicotine dependence -DVT and GI prophylaxis Discharge disposition Patient is being discharged in a stable condition with guarded prognosis to home. Patient will follow-up with Dr. Keene upon discharge. Patient also instructed to follow-up with pain management and pulmonary in the outpatient setting upon discharge. Patient will continue with a short course of oral antibiotics in the form of Levaquin 500 mg daily for the next 5days. Patient will also continue on a prednisone taper. Total time taken is 35 minutes. History of present illness This is an 69-year-old male who was recently admitted with generalized body aches with multiple joint pains and was being closely monitored. Patient does have a history of chronic back pain and is scheduled to undergo an epidural steroid injection in the outpatient setting. Patient was also having some weakness and low-grade fever in the ER. Patient had mild leukocytosis as well. Patient was tested for Covid 19 and was negative. Patient was not exhibiting any signs of shortness of breath, difficulty breathing, or COPD exacerbation. Pulmonary was following. Patient was initiated on IV steroids and will continue on a prednisone taper in the outpatient setting. Patient was also receiving L evaquin and will continue for an additional 5 days to complete the course. Adjustments have been made to insulins and discussed in length with the patient about elevated blood sugars with steroid use and to keep a diary for primary care follow-up. Patient verbalized understanding. Patient states he feels much better today and would like to go home. Currently no reports of chest pain, shortness of breath, or palpitations. Patient is afebrile. No reports of nausea or vomiting and patient is tolerating diet. Guarded prognosis. On exam vital signs are stable. Temp is 97.6F, pulse is 78, respirations are 18, blood pressure is 144/74, oxygen saturation is 95% on room air. Cardio S1, S2 are muffled. Respiratory shows diminished breath sounds at the bases with no wheezing or rhonchi noted. Abdomen is soft and nontender. Nervous system shows no focal deficits. Please refer to medication reconciliation sheet for a list of medications. Patient Condition at Discharge: Fair Plan - Discharge Summary Discharge Rx Participant: No New Discharge Prescriptions: New Levofloxacin [Levaquin] 500 mg PO Q24H 5 Days #5 tab predniSONE 10 mg PO DIRECTED #52 tab Continue Omeprazole [PriLOSEC] 20 mg PO HS Nitroglycerin Sl Tabs [Nitrostat] 0.4 mg SUBLINGUAL Q5M PRN PRN Reason: Chest Pain Atorvastatin [Lipitor] 80 mg PO DAILY Tamsulosin HCl [Flomax] 0.4 mg PO HS Fluticasone/Vilanterol [Breo Ellipta 100-25 Mcg Inhaler] 1 puff INHALATION RT-DAILY Potassium Chloride ER [K-Dur 20] 20 meq PO BID #0 Pramipexole Di-HCl [Mirapex] 1 mg PO DAILY Aspirin 325 mg PO DAILY Metoprolol Tartrate 25 mg PO BID Glimepiride [Amaryl] 2 mg PO AC-BRKFST Ipratropium-Albuterol Nebulize [Duoneb 0.5 mg-3 mg/3 ml Soln] 3 ml INHALATION RT-QID traMADol HCL 50 mg PO DAILY PRN PRN Reason: Pain Allopurinol [Zyloprim] 200 mg PO DAILY #30 tab Lidocaine 5% Patch [Lidoderm 5% Patch] 1 patch TOPICAL DAILY #7 patch HYDROcodone/APAP 5-325MG [[place] 5-325] 1 each PO Q6HR PRN #12 tab PRN Reason: Pain Furosemide [Lasix] 80 mg PO BID #60 tab Changed Insulin Glargine [Lantus] 50 unit SQ HS #0 INSULIN ASPART (NovoLOG) [NovoLOG (formulary)] 15 unit SQ AC-TID #1 vial Discharge Medication List Nitroglycerin Sl Tabs [Nitrostat] 0.4 mg SUBLINGUAL Q5M PRN 03/09/14 [History] Omeprazole [PriLOSEC] 20 mg PO HS 03/09/14 [History] Atorvastatin [Lipitor] 80 mg PO DAILY 05/08/15 [History] Tamsulosin HCl [Flomax] 0.4 mg PO HS 10/09/16 [History] Fluticasone/Vilanterol [Breo Ellipta 100-25 Mcg Inhaler] 1 puff INHALATION RT- DAILY 03/12/18 [History] Potassium Chloride ER [K-Dur 20] 20 meq PO BID #0 03/15/18 [Rx] Aspirin 325 mg PO DAILY 09/02/19 [History] Glimepiride [Amaryl] 2 mg PO AC-BRKFST 09/02/19 [History] Ipratropium-Albuterol Nebulize [Duoneb 0.5 mg-3 mg/3 ml Soln] 3 ml INHALATION RT-QID 09/02/19 [History] Metoprolol Tartrate 25 mg PO BID 09/02/19 [History] Pramipexole Di-HCl [Mirapex] 1 mg PO DAILY 09/02/19 [History] traMADol HCL 50 mg PO DAILY PRN 09/02/19 [History] Allopurinol [Zyloprim] 200 mg PO DAILY #30 tab 09/08/19 [Rx] Furosemide [Lasix] 80 mg PO BID #60 tab 09/08/19 [Rx] HYDROcodone/APAP 5-325MG [[place] 5-325] 1 each PO Q6HR PRN #12 tab 09/08/19 [Rx] Lidocaine 5% Patch [Lidoderm 5% Patch] 1 patch TOPICAL DAILY #7 patch 09/08/19 [Rx] INSULIN ASPART (NovoLOG) [NovoLOG (formulary)] 15 unit SQ AC-TID #1 vial 09/22/19 [Rx] Insulin Glargine [Lantus] 50 unit SQ HS #0 09/22/19 [Rx] Levofloxacin [Levaquin] 500 mg PO Q24H 5 Days #5 tab 09/22/19 [Rx] predniSONE 10 mg PO DIRECTED #52 tab 09/22/19 [Rx] Follow up Appointment(s)/Referral(s): Rahul Chang MD [STAFF PHYSICIAN] - 10/18/19 1:00 pm Shad Grier DO [Family Provider] - 09/28/19 2:00 pm (back pain) Rk Keene III, MD [Primary Care Provider] - 09/28/19 4:30 pm Patient Instructions/Handouts: Hypokalemia (DC), COPD (Chronic Obstructive Pulmonary Disease) (DC), Weakness (DC), Pneumonia (DC), Chronic Lung Disease and Infection Prevention (DC) Activity/Diet/Wound Care/Special Instructions: Activity Limited until follow-up Continue with prednisone taper continue monitoring blood sugars with meals and at bed and keep a diary for primary care follow up blood sugars will be elevated while taking steroids Continue current diet Follow-up with primary care provider upon discharge Follow-up with pain management in the outpatient setting Follow-up with pulmonary in the outpatient setting Continue antibiotics for 5 days until finished Discharge Disposition: HOME SELF-CARE
[2019-09-22 17:14] LABS: Hemoglobin A1C 7.8 % (4.0-6.0)
== END 2019-09-22 13:09 | disposition home or self-care (01) | DRG 948 ==
LOC: EC 22:52 → 4SSUR 09-21 03:35
PROVIDERS: ADMIT Hospitalist; ATTEND Hospitalist
DX: R52 Pain, unspecified (principal); I50.32 Chronic diastolic (congestive) heart failure; J96.11 Chronic respiratory failure with hypoxia; J96.12 Chronic respiratory failure with hypercapnia; I25.10 Atherosclerotic heart disease of native coronary artery without angina pectoris; K21.9 Gastro-esophageal reflux disease without esophagitis; E78.5 Hyperlipidemia, unspecified; G47.33 Obstructive sleep apnea (adult) (pediatric); G89.29 Other chronic pain; I27.20 Pulmonary hypertension, unspecified; M54.5 Low back pain; I11.0 Hypertensive heart disease with heart failure; Z20.828 Contact with and (suspected) exposure to other viral communicable diseases; M19.90 Unspecified osteoarthritis, unspecified site; N40.0 Benign prostatic hyperplasia without lower urinary tract symptoms; Z96.611 Presence of right artificial shoulder joint; Z96.1 Presence of intraocular lens; E87.6 Hypokalemia; I87.2 Venous insufficiency (chronic) (peripheral); E78.00 Pure hypercholesterolemia, unspecified; E11.51 Type 2 diabetes mellitus with diabetic peripheral angiopathy without gangrene; J44.9 Chronic obstructive pulmonary disease, unspecified; E11.65 Type 2 diabetes mellitus with hyperglycemia; M50.30 Other cervical disc degeneration, unspecified cervical region; Z96.652 Presence of left artificial knee joint; Z79.82 Long term (current) use of aspirin; Z79.4 Long term (current) use of insulin; Z79.899 Other long term (current) drug therapy; Z88.8 Allergy status to other drugs, medicaments and biological substances; Z86.73 Personal history of transient ischemic attack (TIA), and cerebral infarction without residual deficits; Z99.81 Dependence on supplemental oxygen; Z98.42 Cataract extraction status, left eye; Z98.41 Cataract extraction status, right eye; Z95.5 Presence of coronary angioplasty implant and graft; Z98.890 Other specified postprocedural states; Z87.01 Personal history of pneumonia (recurrent); Z86.010 Personal history of colon polyps; Z82.49 Family history of ischemic heart disease and other diseases of the circulatory system; Z82.3 Family history of stroke; Z87.891 Personal history of nicotine dependence
CPT/HCPCS: 36415; 71045; 71275; 80048; 80053; 81003; 82728; 83036; 83605; 83615; 83735; 83880; 84145; 85025; 85027; 85379; 85610; 85730; 86140; 87040; 93005; 93970; 94640; 96365; 96366; 96374; 96375; 96376; 99285

== ENCOUNTER 2019-11-01 10:08 | Emergency (ER) | payer MEDICARE ==
[2019-11-01 10:20] VITALS: BP 118/56; PULSE 96; RESP 18; TEMP 98.7
[2019-11-01] MEDS ORDERED: HYDROmorphone 0.5 MG/0.5 ML SYRINGE IVP STA ×2 (11:24→14:04)
[2019-11-01 11:34] LABS: Anisocytosis Slight; Basophils # (A) 0.2 k/uL (0-0.2); Basophils % (A) 2 %; Eosinophils # (A) 0.3 k/uL (0-0.7); Eosinophils % (A) 3 %; HCT 32.4 % (39.0-53.0); HGB 10.3 gm/dL (13.0-17.5); Hypochromasia Slight; Lymphocytes # (A) 1.8 k/uL (1.0-4.8); Lymphocytes % (A) 16 %; MCH 30.2 pg (25.0-35.0); MCHC 31.7 g/dL (31.0-37.0); MCV 95.4 fL (80.0-100.0); Monocytes # (A) 0.6 k/uL (0-1.0); Monocytes % (A) 5 %; Neutrophils # (A) 8.6 k/uL (1.3-7.7); Neutrophils % (A) 74 %; Platelet Count 296 k/uL (150-450); WBC 11.6 k/uL (3.8-10.6)
--- NOTE | 2019-11-01 11:38 | ED ---
Extremity Problem HPI - General Source: patient Mode of arrival: wheelchair Limitations: physical limitation <Johanny Soto - Last Filed: 11/01/19 12:50> <Jocelin Lipscomb - Last Filed: 11/04/19 02:20> - General Chief complaint: Extremity Problem,Nontraumatic Stated complaint: poss blood clot Time Seen by Provider: 11/01/19 10:21 - History of Present Illness Initial comments: 69-year-old male presenting today for chief complaint of right arm pain patient states he woke up this morning with significant arm pain and there is some swelling. Patient states he was recently discharged from [facility] where he is admitted for a cellulitis/sepsis and had multiple PICC lines, one of the PICC lines had developed a clot and constant in the upper extremity DVT in the right arm. Patient denies PE. Denies chest pain or SOB. Patient denies arm redness or fevers, he states that the mid arm hurts up into the shoulder and side of the right neck. Patient denies nausea, vomiting. Denies chest pressure, headaches, dizziness, abdominal pain. Denies numbness, or weakness of the UE. Patient states when pain intensified over the morning he decided to come to the ER. Upon arrival patient appears nontoxic in no acute distress. (Johanny Soto) - Related Data Home Medications Medication Instructions Recorded Confirmed Nitroglycerin Sl Tabs [Nitrostat] 0.4 mg SUBLINGUAL Q5M PRN 03/09/14 11/03/19 Omeprazole [PriLOSEC] 20 mg PO HS 03/09/14 11/03/19 Atorvastatin [Lipitor] 80 mg PO DAILY 05/08/15 11/03/19 Tamsulosin HCl [Flomax] 0.4 mg PO HS 10/09/16 11/03/19 Fluticasone/Vilanterol [Breo 1 puff INHALATION RT-DAILY 03/12/18 11/03/19 Ellipta 100-25 Mcg Inhaler] Aspirin 325 mg PO DAILY 09/02/19 11/03/19 Glimepiride [Amaryl] 2 mg PO AC-BRKFST 09/02/19 11/03/19 Ipratropium-Albuterol Nebulize 3 ml INHALATION RT-QID PRN 09/02/19 11/03/19 [Duoneb 0.5 mg-3 mg/3 ml Soln] Metoprolol Tartrate 25 mg PO BID 09/02/19 11/03/19 Pramipexole Di-HCl [Mirapex] 1 mg PO DAILY 09/02/19 11/03/19 Apixaban [Eliquis] 5 mg PO BID 11/01/19 11/03/19 Furosemide [Lasix] 20 mg PO BID 11/01/19 11/03/19 Ketoconazole [Ketoconazole 2% 1 applic TOPICAL Q72H 11/01/19 11/03/19 Shampoo] Linezolid 600 mg PO Q12H 11/01/19 11/03/19 oxyCODONE-APAP 7.5-325MG [Percocet 1 tab PO QID PRN 11/01/19 11/03/19 7.5-325 mg] Previous Rx's Medication Instructions Recorded Potassium Chloride ER [K-Dur 20] 20 meq PO BID #0 03/15/18 INSULIN ASPART (NovoLOG) [NovoLOG 15 unit SQ AC-TID #1 vial 09/22/19 (formulary)] Insulin Glargine [Lantus] 50 unit SQ HS #0 09/22/19 Allergies Allergy/AdvReac Type Severity Reaction Status Date / Time prednisone AdvReac Extreme Verified 11/03/19 07:54 aggression with high doses Review of Systems ROS Other: All systems not noted in ROS Statement are negative. <Johanny Soto - Last Filed: 11/01/19 12:50> ROS Other: All systems not noted in ROS Statement are negative. <Jocelin Lipscomb - Last Filed: 11/04/19 02:20> ROS Statement: Those systems with pertinent positive or pertinent negative responses have been documented in the HPI. Past Medical History Past Medical History: Coronary Artery Disease (CAD), Chest Pain / Angina, Heart Failure, COPD, GERD/Reflux, Hyperlipidemia, Hypertension, Osteoarthritis (OA), Pneumonia, Prostate Disorder, Respiratory Disorder, Sleep Apnea/CPAP/BIPAP Additional Past Medical History / Comment(s): Spondylolsis, cervical and low back pain, DDD, chronic respiratory failure, CALLI with Cpap/O2 at 4L/NC at HS, nonsustained vtach, TIAs, small vessel disease, IDDM type II, diverticular disease, colon polyps-benign, sinus problems, seasonal allergies, sepsis History of Any Multi-Drug Resistant Organisms: None Reported Past Surgical History: Back Surgery, Heart Catheterization With Stent, Joint Replacement, Orthopedic Surgery Additional Past Surgical History / Comment(s): Bilateral knee arthroscopies, total L knee arthroplasty, R total shoulder arthroplasty, L hand injury with repair, PCI with 3 stents, colonoscopies/polypectomies, lumbar epidural injections, bilateral cataract removals/lens implants. Past Anesthesia/Blood Transfusion Reactions: No Reported Reaction Additional Past Anesthesia/Blood Transfusion Reaction / Comment(s): STATES "HAD A HARD TIME WITH BREATHING POST OP" Date of Last Stent Placement:: 2009 Past Psychological History: No Psychological Hx Reported Smoking Status: Never smoker Past Alcohol Use History: None Reported Past Drug Use History: None Reported - Past Family History Father Family Medical History: CVA/TIA, Hyperlipidemia, Hypertension Mother Family Medical History: Hypertension <Johanny Soto - Last Filed: 11/01/19 12:50> General Exam Limitations: physical limitation <Johanny Soto - Last Filed: 11/01/19 12:50> Course Vital Signs 11/01/19 10:17 Temperature 98.7 F Pulse Rate 96 Respiratory 18 Rate Blood Pressure 118/56 O2 Sat by Pulse 93 L Oximetry Medical Decision Making - Lab Data Result diagrams: 11/01/19 11:24 11/01/19 11:24 <Johanny Soto - Last Filed: 11/01/19 12:50> - Lab Data Result diagrams: 11/01/19 11:24 11/01/19 11:24 <Jocelin Lipscomb - Last Filed: 11/04/19 02:20> - Medical Decision Making I discussed the case with Dr. Blue in regards to acute clot in the patients arm while the patient has been on Eliquis. Dr. Blue had no further recommendations in regard to anticoagulation. Recommends patient stay on his current dose of Eliquis. Patient has appointment to follow up with hematology. Patient has been re-evaluated and is pain free. Patient will be discharged home at this time. Patient asked to return to the ED for any new or worsening symptoms (Jocelin Lipscomb) - Lab Data Lab Results 08/10/20 08/10/20 08/10/20 Range/Units 11:24 11:24 11:24 WBC 11.6 H (3.8-10.6) k/uL RBC 3.40 L (4.30-5.90) m/uL Hgb 10.3 L (13.0-17.5) gm/dL Hct 32.4 L (39.0-53.0) % MCV 95.4 (80.0-100.0) fL MCH 30.2 (25.0-35.0) pg MCHC 31.7 (31.0-37.0) g/dL RDW 16.0 H (11.5-15.5) % Plt Count 296 (150-450) k/uL Neutrophils % 74 % Lymphocytes % 16 % Monocytes % 5 % Eosinophils % 3 % Basophils % 2 % Neutrophils # 8.6 H (1.3-7.7) k/uL Lymphocytes # 1.8 (1.0-4.8) k/uL Monocytes # 0.6 (0-1.0) k/uL Eosinophils # 0.3 (0-0.7) k/uL Basophils # 0.2 (0-0.2) k/uL Hypochromasia Slight Anisocytosis Slight Sodium 137 (137-145) mmol/L Potassium 5.4 H (3.5-5.1) mmol/L Chloride 102 (98-107) mmol/L Carbon Dioxide 26 (22-30) mmol/L Anion Gap 9 mmol/L BUN 14 (9-20) mg/dL Creatinine 1.04 (0.66-1.25) mg/dL Est GFR (CKD-EPI)AfAm 84 (>60 ml/min/1.73 sqM) Est GFR (CKD-EPI)NonAf 73 (>60 ml/min/1.73 sqM) Glucose 63 L (74-99) mg/dL Calcium 8.9 (8.4-10.2) mg/dL Total Bilirubin 0.7 (0.2-1.3) mg/dL AST 36 (17-59) U/L ALT 16 (4-49) U/L Alkaline Phosphatase 90 (38-126) U/L Troponin I <0.012 (0.000-0.034) ng/mL Total Protein 6.4 (6.3-8.2) g/dL Albumin 3.5 (3.5-5.0) g/dL Disposition <Johanny Soto Bogdan - Last Filed: 11/01/19 12:50> Is patient prescribed a controlled substance at d/c from ED?: No Time of Disposition: 14:33 <Jocelin Lipscomb Lise - Last Filed: 11/04/19 02:20> Clinical Impression: Deep vein thrombosis (DVT) of upper extremity Disposition: HOME SELF-CARE Condition: Stable Instructions (If sedation given, give patient instructions): Deep Vein Thrombosis (ED) Additional Instructions: Please take your Eliquis as directed. Follow-up with Dr. Moreira in regards to your anticoagulation. Return to the emergency room for any new or worsening symptoms Referrals: Rk Keene III, MD [Primary Care Provider] - 1-2 days Seth Moreira MD [STAFF PHYSICIAN] - 1-2 days
[2019-11-01 11:43] LABS: Albumin 3.5 g/dL (3.5-5.0); Calcium 8.9 mg/dL (8.4-10.2); Total Bilirubin 0.7 mg/dL (0.2-1.3); Total Protein 6.4 g/dL (6.3-8.2)
[2019-11-01 11:47] LABS: Potassium 5.4 mmol/L (3.5-5.1)
--- NOTE | 2019-11-01 11:55 | US ---
EXAMINATION TYPE: US venous doppler duplex UE RT DATE OF EXAM: 11/01/2019 COMPARISON: NONE CLINICAL HISTORY: arm pain previous DVT. Recent right arm blood clot seen at [facility], pat ient on blood thinners SIDE PERFORMED: Right Right Arm: Appears negative for DVT, positive for SVT in basilic vein IMPRESSION: 1. No diagnostic evidence of DVT. 2. There is a positive exam for superficial venous thrombosis within the basilic vein.
--- NOTE | 2019-11-01 12:39 | CT ---
EXAMINATION TYPE: CT angio chest DATE OF EXAM: 11/01/2019 12:07 PM COMPARISON: CTA chest 08/25/2019 HISTORY: Chest pain, recent UE DVT CT DLP: 684.3 mGycm Automated exposure control for dose reduction was used. CONTRAST: CTA scan of the thorax is performed with IV Contrast, patient injected with 80 mL of Isovue 370, pulm onary embolism protocol. MIP images are created and reviewed. FINDINGS: LUNGS: The lungs are grossly clear, there is no concerning parenchymal mass or nodule identified. Le ft apical pleural thickening. Mild bibasilar atelectasis. There is no pleural effusion or pneumothor ax seen. The tracheobronchial tree is patent. MEDIASTINUM: There is satisfactory enhancement of the pulmonary artery and its branches, there is no CT evidence for pulmonary embolism. No thoracic aortic aneurysm. There are no greater than 1 cm hilar or mediastinal lymph nodes. Calcified coronary artery disease. Heart size normal. No pericardial ef fusion is seen. OTHER: No adrenal nodule. IMPRESSION: NO EVIDENCE OF PULMONARY EMBOLUS.
== END 2019-11-01 15:00 | disposition home or self-care (01) ==
LOC: EC 10:08
DX: I82.621 Acute embolism and thrombosis of deep veins of right upper extremity (principal); I11.0 Hypertensive heart disease with heart failure; I50.9 Heart failure, unspecified; E11.9 Type 2 diabetes mellitus without complications; I25.110 Atherosclerotic heart disease of native coronary artery with unstable angina pectoris; K21.9 Gastro-esophageal reflux disease without esophagitis; E78.5 Hyperlipidemia, unspecified; G47.33 Obstructive sleep apnea (adult) (pediatric); M19.90 Unspecified osteoarthritis, unspecified site; J44.9 Chronic obstructive pulmonary disease, unspecified; J18.9 Pneumonia, unspecified organism; J96.10 Chronic respiratory failure, unspecified whether with hypoxia or hypercapnia; N42.9 Disorder of prostate, unspecified; M54.5 Low back pain; M54.2 Cervicalgia; Z79.01 Long term (current) use of anticoagulants; Z79.51 Long term (current) use of inhaled steroids; Z79.82 Long term (current) use of aspirin; Z79.84 Long term (current) use of oral hypoglycemic drugs; Z79.899 Other long term (current) drug therapy; Z79.891 Long term (current) use of opiate analgesic; Z88.8 Allergy status to other drugs, medicaments and biological substances; Z86.73 Personal history of transient ischemic attack (TIA), and cerebral infarction without residual deficits; Z96.652 Presence of left artificial knee joint; Z99.89 Dependence on other enabling machines and devices; Z95.5 Presence of coronary angioplasty implant and graft; Z96.611 Presence of right artificial shoulder joint
CPT/HCPCS: 36415; 93005; 80053; 84484; 85025; 93971; 71275; 99284; 96374; 96376; J1170; Q9967

== ENCOUNTER 2019-11-03 04:03 | Inpatient (IN) | payer MEDICARE ==
[2019-11-03] MEDS ORDERED: HYDROmorphone 0.5 MG/0.5 ML SYRINGE IVP STA (04:52)
[2019-11-03 05:24] LABS: Basophils # (A) 0.1 k/uL (0-0.2); Basophils % (A) 1 %; Eosinophils # (A) 0.6 k/uL (0-0.7); Eosinophils % (A) 7 %; HCT 29.6 % (39.0-53.0); HGB 9.6 gm/dL (13.0-17.5); Lymphocytes # (A) 1.2 k/uL (1.0-4.8); Lymphocytes % (A) 12 %; MCH 30.4 pg (25.0-35.0); MCHC 32.3 g/dL (31.0-37.0); MCV 94.3 fL (80.0-100.0); Mean Platelet Volume 8.7; Monocytes # (A) 0.4 k/uL (0-1.0); Monocytes % (A) 4 %; Neutrophils # (A) 7.3 k/uL (1.3-7.7); Neutrophils % (A) 75 %; Platelet Count 249 k/uL (150-450); RBC 3.14 m/uL (4.30-5.90); RDW 15.7 % (11.5-15.5); WBC 9.8 k/uL (3.8-10.6)
[2019-11-03 05:43] LABS: Albumin 3.3 g/dL (3.5-5.0); Calcium 8.9 mg/dL (8.4-10.2); Potassium 4.9 mmol/L (3.5-5.1); Total Bilirubin 0.8 mg/dL (0.2-1.3); Total Protein 6.2 g/dL (6.3-8.2)
[2019-11-03 06:00] LABS: C Reactive Protein 198.6 mg/L (<10.0)
--- NOTE | 2019-11-03 06:07 | CT ---
EXAMINATION TYPE: CT chest angio for PE DATE OF EXAM: 11/03/2019 COMPARISON: 11/01/2019 HISTORY: SOB CT DLP: 573.5 mGycm Automated exposure control for dose reduction was used. CONTRAST: Performed with IV Contrast, patient injected with 80 mL of Isovue 370. There are 3-D post processed i mages. There is mild pleural thickening in the posterior lung kimball. There is no pleural effusion. There is no pneumothorax. There is patchy atelectasis at the lung bases. Heart size is normal. There is no pe ricardial effusion. There is no mediastinal adenopathy. There are no hilar masses. Thoracic aorta is intact. There is no aneurysm or dissection. There is normal contrast opacification of the pulmonary arteries. There are no filling defects. Thoracic spine is intact. There is no compression fracture. Sternum is intact. Thoracic aorta is athe romatous. IMPRESSION: No evidence of pulmonary embolism. There is some patchy atelectasis at the lung bases not significant ly different than recent exam. No suspicious pulmonary mass. Stable mild posterior pleural scarring.
--- NOTE | 2019-11-03 07:09 | ED ---
Neck Injury/Pain HPI <MerariguyChau Katherine - Last Filed: 11/03/19 08:29> - General Mode of arrival: ambulatory Limitations: no limitations - History of Present Illness MD Complaint: neck pain -: days(s) Place: home Radiation: right lateral, right shoulder, right upper extremity Severity: severe Quality: aching Consistency: constant Improves With: none Worsens With: none Associated Symptoms: none <Andi Reagan - Last Filed: 11/04/19 08:08> - General Chief Complaint: Neck Pain/Injury Stated Complaint: neck pain Time Seen by Provider: 11/03/19 04:11 - History of Present Illness Initial Comments: This patient is a 69-year-old man who presents with complaint of pain from the right neck radiating down the shoulder to the right arm. Patient states this is been going on for number of days. He had been admitted to the hospital, it appears for cellulitis, was requiring PICC line antibiotics, and then reportedly developed DVT of the right upper extremity. Patient was subsequently seen here and had CT to rule out pulmonary embolism. Following that he was discharged. Patient does continue to take Eliquis twice per day as directed. The patient states that the pain continues. He also has noted some fullness in the area of the neck and right shoulder. In relation to the cellulitis, patient states that his legs have improved. He reports continuing antibiotics. (Andi Reagan) - Related Data Home Medications Medication Instructions Recorded Confirmed Nitroglycerin Sl Tabs [Nitrostat] 0.4 mg SUBLINGUAL Q5M PRN 03/09/14 11/03/19 Omeprazole [PriLOSEC] 20 mg PO HS 03/09/14 11/03/19 Atorvastatin [Lipitor] 80 mg PO DAILY 05/08/15 11/03/19 Tamsulosin HCl [Flomax] 0.4 mg PO HS 10/09/16 11/03/19 Fluticasone/Vilanterol [Breo 1 puff INHALATION RT-DAILY 03/12/18 11/03/19 Ellipta 100-25 Mcg Inhaler] Aspirin 325 mg PO DAILY 09/02/19 11/03/19 Glimepiride [Amaryl] 2 mg PO AC-BRKFST 09/02/19 11/03/19 Ipratropium-Albuterol Nebulize 3 ml INHALATION RT-QID PRN 09/02/19 11/03/19 [Duoneb 0.5 mg-3 mg/3 ml Soln] Metoprolol Tartrate 25 mg PO BID 09/02/19 11/03/19 Pramipexole Di-HCl [Mirapex] 1 mg PO DAILY 09/02/19 11/03/19 Apixaban [Eliquis] 5 mg PO BID 11/01/19 11/03/19 Furosemide [Lasix] 20 mg PO BID 11/01/19 11/03/19 Ketoconazole [Ketoconazole 2% 1 applic TOPICAL Q72H 11/01/19 11/03/19 Shampoo] Linezolid 600 mg PO Q12H 11/01/19 11/03/19 oxyCODONE-APAP 7.5-325MG [Percocet 1 tab PO QID PRN 11/01/19 11/03/19 7.5-325 mg] Previous Rx's Medication Instructions Recorded Potassium Chloride ER [K-Dur 20] 20 meq PO BID #0 03/15/18 INSULIN ASPART (NovoLOG) [NovoLOG 15 unit SQ AC-TID #1 vial 09/22/19 (formulary)] Insulin Glargine [Lantus] 50 unit SQ HS #0 09/22/19 Allergies Allergy/AdvReac Type Severity Reaction Status Date / Time prednisone AdvReac Extreme Verified 11/03/19 07:54 aggression with high doses Review of Systems ROS Other: All systems not noted in ROS Statement are negative. <Chau Driscoll - Last Filed: 11/03/19 08:29> ROS Other: All systems not noted in ROS Statement are negative. Constitutional: Denies: fever, chills, weakness Respiratory: Denies: cough, dyspnea Cardiovascular: Denies: chest pain, palpitations, orthopnea, edema Gastrointestinal: Denies: abdominal pain, nausea, vomiting, diarrhea Genitourinary: Denies: dysuria Musculoskeletal: Reports: as per HPI, arthralgia. Denies: back pain Skin: Denies: rash Neurological: Denies: headache, weakness, numbness, paresthesias <Andi Reagan - Last Filed: 11/04/19 08:08> ROS Statement: Those systems with pertinent positive or pertinent negative responses have been documented in the HPI. Past Medical History Past Medical History: Coronary Artery Disease (CAD), Chest Pain / Angina, Heart Failure, COPD, GERD/Reflux, Hyperlipidemia, Hypertension, Osteoarthritis (OA), Pneumonia, Prostate Disorder, Respiratory Disorder, Sleep Apnea/CPAP/BIPAP Additional Past Medical History / Comment(s): Spondylolsis, cervical and low back pain, DDD, chronic respiratory failure, CALLI with Cpap/O2 at 4L/NC at HS, nonsustained vtach, TIAs, small vessel disease, IDDM type II, diverticular disease, colon polyps-benign, sinus problems, seasonal allergies, sepsis History of Any Multi-Drug Resistant Organisms: None Reported Past Surgical History: Back Surgery, Heart Catheterization With Stent, Joint Replacement, Orthopedic Surgery Additional Past Surgical History / Comment(s): Bilateral knee arthroscopies, total L knee arthroplasty, R total shoulder arthroplasty, L hand injury with repair, PCI with 3 stents, colonoscopies/polypectomies, lumbar epidural injections, bilateral cataract removals/lens implants. Past Anesthesia/Blood Transfusion Reactions: No Reported Reaction Additional Past Anesthesia/Blood Transfusion Reaction / Comment(s): STATES "HAD A HARD TIME WITH BREATHING POST OP" Date of Last Stent Placement:: 2009 Past Psychological History: No Psychological Hx Reported Smoking Status: Never smoker Past Alcohol Use History: None Reported Past Drug Use History: None Reported - Past Family History Father Family Medical History: CVA/TIA, Hyperlipidemia, Hypertension Mother Family Medical History: Hypertension <Andi Reagan - Last Filed: 11/04/19 08:08> General Exam Limitations: no limitations General appearance: alert, in no apparent distress Head exam: Present: atraumatic, normocephalic Eye exam: Present: normal appearance. Absent: scleral icterus, conjunctival injection Neck exam: Present: normal inspection, full ROM. Absent: tenderness, meningismus Respiratory exam: Present: normal lung sounds bilaterally. Absent: respiratory distress, wheezes, rales, rhonchi, stridor Cardiovascular Exam: Present: regular rate, normal rhythm, normal heart sounds. Absent: systolic murmur, diastolic murmur, rubs, gallop GI/Abdominal exam: Present: soft. Absent: distended, tenderness, guarding, rebound, rigid, mass Extremities exam: Present: normal inspection, normal capillary refill. Absent: pedal edema, calf tenderness Back exam: Present: normal inspection. Absent: paraspinal tenderness, vertebral tenderness Neurological exam: Present: alert. Absent: motor sensory deficit Skin exam: Present: warm, dry, intact, normal color. Absent: rash <Andi Reagan - Last Filed: 11/04/19 08:08> Course Vital Signs 11/03/19 11/03/19 11/03/19 04:07 06:12 10:20 Temperature 98.4 F 98.7 F Pulse Rate 68 104 H 113 H Respiratory 18 20 20 Rate Blood Pressure 152/74 131/70 123/64 O2 Sat by Pulse 100 98 92 L Oximetry 11/03/19 12:17 Temperature 98.4 F Pulse Rate 113 H Respiratory 20 Rate Blood Pressure 120/68 O2 Sat by Pulse 97 Oximetry Medical Decision Making - Lab Data Result diagrams: 11/03/19 04:55 11/03/19 04:55 <Chau Driscoll - Last Filed: 11/03/19 08:29> - Lab Data Result diagrams: 11/04/19 06:47 11/03/19 04:55 <Andi Reagan - Last Filed: 11/04/19 08:08> - Medical Decision Making Patient care was signed out to me by previous shift physician Dr. Reagan. Briefly, patient presents emergency department for right-sided neck and shoulder pain. Patient takes eliquis. He had an elevated d-dimer but CT angios of the chest did not reveal any pulmonary embolism. His labs did not show any leukocytosis. His hemoglobin was 9.6 which is below his baseline. Metabolic panel was unremarkable except for glucose of 61. C-reactive protein of 198.6. More history was obtained from patient and patient's at bedside. As recent as a month or 2 ago patient was admitted to [facility] for cellulitis. He was scheduled to get a midline catheter in his right upper extremity. There was difficulty getting that IV axis so he had an ultrasound. Ultrasound was obtained suggesting that patient had a deep venous thrombosis. Patient does take apixaban. When asked why they came to the emergency department today. He has chronic worsening ability right upper extremity. He does have some left upper extremity was resuscitated to the emergency department. Chart review shows that patient was admitted to the hospital approximately one month ago. He has history of chronic pain and sees multiple pain specialists. He was told that he has degenerative cervical spine. Computed tomography scan shows advanced spondylosis the changes in the mid to lower cervical spine. Patient will be admitted for orthopedic spine consultation. Case was discussed with Tiana, mid-level provider who is willing to accept patients care on behalf of the [facility]. (Chau Driscoll) - Lab Data Lab Results 11/03/19 11/03/19 11/03/19 Range/Units 04:55 04:55 04:55 WBC 9.8 (3.8-10.6) k/uL RBC 3.14 L (4.30-5.90) m/uL Hgb 9.6 L (13.0-17.5) gm/dL Hct 29.6 L (39.0-53.0) % MCV 94.3 (80.0-100.0) fL MCH 30.4 (25.0-35.0) pg MCHC 32.3 (31.0-37.0) g/dL RDW 15.7 H (11.5-15.5) % Plt Count 249 (150-450) k/uL Neutrophils % 75 % Lymphocytes % 12 % Monocytes % 4 % Eosinophils % 7 % Basophils % 1 % Neutrophils # 7.3 (1.3-7.7) k/uL Lymphocytes # 1.2 (1.0-4.8) k/uL Monocytes # 0.4 (0-1.0) k/uL Eosinophils # 0.6 (0-0.7) k/uL Basophils # 0.1 (0-0.2) k/uL D-Dimer 2.33 H (<0.60) mg/L FEU Sodium 135 L (137-145) mmol/L Potassium 4.9 (3.5-5.1) mmol/L Chloride 100 (98-107) mmol/L Carbon Dioxide 29 (22-30) mmol/L Anion Gap 6 mmol/L BUN 15 (9-20) mg/dL Creatinine 1.09 (0.66-1.25) mg/dL Est GFR (CKD-EPI)AfAm 79 (>60 ml/min/1.73 sqM) Est GFR (CKD-EPI)NonAf 68 (>60 ml/min/1.73 sqM) Glucose 61 L (74-99) mg/dL POC Glucose (mg/dL) (75-99) mg/dL POC Glu Coupon Manifest Clerk ID Calcium 8.9 (8.4-10.2) mg/dL Total Bilirubin 0.8 (0.2-1.3) mg/dL AST 28 (17-59) U/L ALT 14 (4-49) U/L Alkaline Phosphatase 96 (38-126) U/L Troponin I (0.000-0.034) ng/mL C-Reactive Protein 198.6 H (<10.0) mg/L Total Protein 6.2 L (6.3-8.2) g/dL Albumin 3.3 L (3.5-5.0) g/dL 11/03/19 11/03/19 11/03/19 Range/Units 04:55 07:23 08:05 WBC (3.8-10.6) k/uL RBC (4.30-5.90) m/uL Hgb (13.0-17.5) gm/dL Hct (39.0-53.0) % MCV (80.0-100.0) fL MCH (25.0-35.0) pg MCHC (31.0-37.0) g/dL RDW (11.5-15.5) % Plt Count (150-450) k/uL Neutrophils % % Lymphocytes % % Monocytes % % Eosinophils % % Basophils % % Neutrophils # (1.3-7.7) k/uL Lymphocytes # (1.0-4.8) k/uL Monocytes # (0-1.0) k/uL Eosinophils # (0-0.7) k/uL Basophils # (0-0.2) k/uL D-Dimer (<0.60) mg/L FEU Sodium (137-145) mmol/L Potassium (3.5-5.1) mmol/L Chloride (98-107) mmol/L Carbon Dioxide (22-30) mmol/L Anion Gap mmol/L BUN (9-20) mg/dL Creatinine (0.66-1.25) mg/dL Est GFR (CKD-EPI)AfAm (>60 ml/min/1.73 sqM) Est GFR (CKD-EPI)NonAf (>60 ml/min/1.73 sqM) Glucose (74-99) mg/dL POC Glucose (mg/dL) 57 L 109 H (75-99) mg/dL POC Glu Coupon Manifest Clerk RUKHSANA Tuttle, II, Reji Tuttle, II, Reji Calcium (8.4-10.2) mg/dL Total Bilirubin (0.2-1.3) mg/dL AST (17-59) U/L ALT (4-49) U/L Alkaline Phosphatase (38-126) U/L Troponin I <0.012 (0.000-0.034) ng/mL C-Reactive Protein (<10.0) mg/L Total Protein (6.3-8.2) g/dL Albumin (3.5-5.0) g/dL Disposition Decision Time: 08:30 <Chau Driscoll - Last Filed: 11/03/19 08:29> <Andi Reagan - Last Filed: 11/04/19 08:08> Clinical Impression: Neck pain Disposition: ADMITTED IP TO THIS HOSP Condition: Fair
[2019-11-03] MEDS ORDERED: DEXTROSE 50% SYRINGE 50 ML IVP STA (07:18)
[2019-11-03 07:25] LABS: Glucose,Whole Blood 57 mg/dL (75-99)
[2019-11-03] MEDS ORDERED: HYDROmorphone 1 MG/ML 1 ML SYRINGE IVP STA (07:25)
[2019-11-03] MEDS ORDERED: ONDANSETRON 4 MG/2 ML VIAL IVP STA (07:46)
[2019-11-03 08:07] LABS: Glucose,Whole Blood 109 mg/dL (75-99)
--- NOTE | 2019-11-03 08:08 | CT ---
EXAMINATION TYPE: CT cervical spine wo con DATE OF EXAM: 11/03/2019 COMPARISON: 09/03/2019 HISTORY: 69-year-old male Neck pain TECHNIQUE: Contiguous axial scanning of the cervical spine without IV contrast. Coronal and sagittal reconstructions performed. CT DLP: 525.1 mGycm Automated exposure control for dose reduction was used. FINDINGS: No craniocervical junction abnormality or predental space widening. Prevertebral soft tissue thickeni ng seems to relate to a retropharyngeal course of the ICAs. Severe dissection plate degenerative change at C4-C6 levels with endplate sclerosis, irregularity, cy stic change, discussed by complex formation. Reversal of the normal cervical lordosis with kyphotic deformity. Hypertrophic facet and uncovertebral joint arthropathy mid to lower cervical spine. Trace grade 1 anterolisthesis C4-C5 is unchanged. Possible mild spinal canal stenosis at C5-C6 with a ssessment limited by CT due to artifact from the patient's shoulders. No acute fractures of the cervical spine. Moderate to severe bilateral neuroforaminal stenoses at C6-C7 and moderate to severe on the right at C7-T1. Moderate on both sides at C3-C4, moderate right and moderate to severe left and C4-C5, and mod erate left greater than right at C5-C6. IMPRESSION: REDEMONSTRATED IS ADVANCED SPONDYLOTIC CHANGES ESPECIALLY IN THE MID TO LOWER CERVICAL SPINE. 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 VARIABLE NEURAL FORAMINAL STENOSES OUTLINED ABOVE. APPARENT THICKENING OF THE PREVERTEBRAL SOFT TISSUES SEEMS TO CORRESPOND TO RETROPHARYNGEAL COURSE OF THE INTERNAL CAROTID ARTERIES RATHER THAN AN EFFUSION OR EDEMA.
[2019-11-03] MEDS ORDERED: NALOXONE 0.4 MG/ML 1 ML VIAL IV PRN (08:27)
[2019-11-03] MEDS: SODIUM CHLORIDE 0.9% 1,000 ML IV SCH (08:35)
[2019-11-03] MEDS: APIXABAN 5 MG TAB PO SCH ×2 (08:58→21:17)
[2019-11-03] MEDS ORDERED: NITROGLYCERIN SL TABS 0.4 MG TAB SUBLINGUAL PRN (10:00)
[2019-11-03] MEDS ORDERED: oxyCODONE-APAP 7.5-325MG 1 EACH TAB PO PRN (10:00)
[2019-11-03] MEDS ORDERED: PRAMIPEXOLE 1 MG TAB PO SCH (10:15)
[2019-11-03] MEDS ORDERED: GLIMEPIRIDE 2 MG TAB PO SCH (10:15)
[2019-11-03] MEDS ORDERED: FUROSEMIDE 20 MG TAB PO SCH (10:15)
[2019-11-03] MEDS: ASPIRIN 325 MG TAB PO SCH (10:30)
[2019-11-03] MEDS: ATORVASTATIN 80 MG TAB PO SCH (10:31)
[2019-11-03] MEDS: LINEZOLID 600 MG TAB PO SCH ×2 (11:26→21:34)
[2019-11-03 13:11] LABS: Glucose,Whole Blood 97 mg/dL (75-99)
[2019-11-03] MEDS: INSULIN ASPART (NovoLOG) 100 UNIT/ML VIAL SQ SCH ×2 (13:25→17:30)
[2019-11-03] MEDS: IPRATROPIUM-ALBUTEROL 3 ML NEB INHALATION PRN ×2 (15:48→19:29)
--- NOTE | 2019-11-03 16:10 | P.PAINCN ---
History of Present Illness - Reason for Consult Consult date: 11/03/19 - History of Present Illness This is 69 years old male with a chronic history of severe neck pain with radiation to the upper extremity, patient had the neck pain since 1994 and he was doing physical therapy and interventional pain management, and he is to follow-up with Dr. Browne [facility], according to the patient he had multiple interventional pain procedure , recently he reported the intensity of THE pain increased over time, and currently the pain is intractable and severe , with radiation to the upper extremity bilaterally that is more prominent on the right side Past Medical History Past Medical History: Coronary Artery Disease (CAD), Chest Pain / Angina, Heart Failure, COPD, GERD/Reflux, Hyperlipidemia, Hypertension, Osteoarthritis (OA), Pneumonia, Prostate Disorder, Renal Disease, Respiratory Disorder, Sleep Apnea/CPAP/BIPAP, Vascular Disorder Additional Past Medical History / Comment(s): Pt recently admitted to [facility] on 09/21/19 wtih generalized body aches, elevated ESR and diffuse interstitial infiltrates, bilateral lower extremity edema/venous insufficiency. Pt states he was more recently hospitalized at [facility] for decreased renal function. Other hx: Spondylolsis, cervical and low back pain, DDD, chronic respiratory failure, CALLI with Cpap/O2 at 4L/NC at , nonsustained vtach, TIAs, small vessel disease, IDDM type II, diverticular disease, colon polyps-benign, sinus problems, seasonal allergies, sepsis History of Any Multi-Drug Resistant Organisms: None Reported Past Surgical History: Back Surgery, Heart Catheterization With Stent, Joint Replacement, Orthopedic Surgery Additional Past Surgical History / Comment(s): Bilateral knee arthroscopies, total L knee arthroplasty, R total shoulder arthroplasty, L hand injury with re pair, PCI with 3 stents, colonoscopies/polypectomies, lumbar epidural injections, bilateral cataract removals/lens implants. Past Anesthesia/Blood Transfusion Reactions: No Reported Reaction Additional Past Anesthesia/Blood Transfusion Reaction / Comm: STATES "HAD A HARD TIME WITH BREATHING POST OP" Date of Last Stent Placement:: 2009 Past Psychological History: No Psychological Hx Reported Additional Psychological History / Comment(s): Pt resides with his spouse. He has a Cpap machine/oxygen, glucose monitor, nebulizer and pulse ox. Pt served in the [employer]. Smoking Status: Former smoker Past Alcohol Use History: None Reported Additional Past Alcohol Use History / Comment(s): QUIT SMOKING IN 2009, STARTED 1962, SMOKED 2 PPD Past Drug Use History: None Reported - Past Family History Father Family Medical History: CVA/TIA, Hyperlipidemia, Hypertension Mother Family Medical History: Hypertension Medications and Allergies Home Medications Medication Instructions Recorded Confirmed Type Nitroglycerin Sl Tabs [Nitrostat] 0.4 mg SUBLINGUAL Q5M PRN 03/09/14 11/03/19 History Omeprazole [PriLOSEC] 20 mg PO HS 03/09/14 11/03/19 History Atorvastatin [Lipitor] 80 mg PO DAILY 05/08/15 11/03/19 History Tamsulosin HCl [Flomax] 0.4 mg PO HS 10/09/16 11/03/19 History Fluticasone/Vilanterol [Breo 1 puff INHALATION RT-DAILY 03/12/18 11/03/19 History Ellipta 100-25 Mcg Inhaler] Potassium Chloride ER [K-Dur 20] 20 meq PO BID #0 03/15/18 11/03/19 Rx Aspirin 325 mg PO DAILY 09/02/19 11/03/19 History Glimepiride [Amaryl] 2 mg PO AC-BRKFST 09/02/19 11/03/19 History Ipratropium-Albuterol Nebulize 3 ml INHALATION RT-QID PRN 09/02/19 11/03/19 History [Duoneb 0.5 mg-3 mg/3 ml Soln] Metoprolol Tartrate 25 mg PO BID 09/02/19 11/03/19 History Pramipexole Di-HCl [Mirapex] 1 mg PO DAILY 09/02/19 11/03/19 History INSULIN ASPART (NovoLOG) [NovoLOG 15 unit SQ AC-TID #1 vial 09/22/19 11/03/19 Rx (formulary)] Insulin Glargine [Lantus] 50 unit SQ HS #0 09/22/19 11/03/19 Rx Apixaban [Eliquis] 5 mg PO BID 11/01/19 11/03/19 History Furosemide [Lasix] 20 mg PO BID 11/01/19 11/03/19 History Ketoconazole [Ketoconazole 2% 1 applic TOPICAL Q72H 11/01/19 11/03/19 History Shampoo] Linezolid 600 mg PO Q12H 11/01/19 11/03/19 History oxyCODONE-APAP 7.5-325MG [Percocet 1 tab PO QID PRN 11/01/19 11/03/19 History 7.5-325 mg] Allergies Allergy/AdvReac Type Severity Reaction Status Date / Time prednisone AdvReac Extreme Verified 11/03/19 07:54 aggression with high doses Physical Exam Vitals: Vital Signs Temp Pulse Pulse Resp BP BP Pulse Ox 11/03/19 15:56 110 H 11/03/19 15:48 110 H 11/03/19 12:38 98.2 F 104 H 16 116/57 97 11/03/19 12:17 98.4 F 113 H 20 120/68 97 11/03/19 10:20 98.7 F 113 H 20 123/64 92 L 11/03/19 06:12 104 H 20 131/70 98 11/03/19 04:07 98.4 F 68 18 152/74 100 Intake and Output 11/03/19 11/03/19 11/03/19 06:59 14:59 22:59 Other: Voiding Method Toilet Weight 104.326 kg 104.326 kg Physical Examinations : -Constitutiona : Cooperative , not in acute distress . -HEENT : nech : supple , no Lymphadenopathy , normal thyroid size . : eyes : no ptosis , no icterus, no photophobia . - neurologic : Cranial nerve II to XII intact , no focal neurological deffecit . -psychatric : alert , oriented X 3 , appropriate affect , intact judgment and insight . -Lymphatic : no Lymphadenopathy . - musculoskeltal : Cervical Spine motor stregnth in the deltoid and biceps, 4/5 right side , 4 Left side motor stregnth biceps and the wrist extensors 4/5 right side ,4/5 left side . motor stregnth in the triceps muscle . 4/5 Right side , 4/5 Left side deep tendon reflexes normal at the biceps , normal at Brachioradialis , normal at triceps. cervical facet loading test= Positive Bilaterally Spurling test= positive bilaterally. Neck distraction test= positive bilaterally. Sisi sign= positive bilaterally. Lumber spine moter stegnth lower extremities ,thigh and legs 4/5 Right side , 4/5 Left side Results CBC & Chem 7: 11/03/19 04:55 11/03/19 04:55 Labs: Abnormal Lab Results - Last 24 Hours (Table) 11/03/19 11/03/19 11/03/19 Range/Units 04:55 04:55 04:55 RBC 3.14 L (4.30-5.90) m/uL Hgb 9.6 L (13.0-17.5) gm/dL Hct 29.6 L (39.0-53.0) % RDW 15.7 H (11.5-15.5) % D-Dimer 2.33 H (<0.60) mg/L FEU Sodium 135 L (137-145) mmol/L Glucose 61 L (74-99) mg/dL POC Glucose (mg/dL) (75-99) mg/dL C-Reactive Protein 198.6 H (<10.0) mg/L Total Protein 6.2 L (6.3-8.2) g/dL Albumin 3.3 L (3.5-5.0) g/dL 11/03/19 11/03/19 Range/Units 07:23 08:05 RBC (4.30-5.90) m/uL Hgb (13.0-17.5) gm/dL Hct (39.0-53.0) % RDW (11.5-15.5) % D-Dimer (<0.60) mg/L FEU Sodium (137-145) mmol/L Glucose (74-99) mg/dL POC Glucose (mg/dL) 57 L 109 H (75-99) mg/dL C-Reactive Protein (<10.0) mg/L Total Protein (6.3-8.2) g/dL Albumin (3.5-5.0) g/dL Comments: Computed tomography scan of the cervical spine= multilevel cervical degenerative disc disease and moderate to severe foraminal stenosis at C6 7 level and severe foraminal stenosis C4 5 and C3 4 Assessment and Plan Plan: Assessment and plan=1 acute on chronic severe neck pain secondary to cervical foraminal stenosis and cervical degenerative disc disease Patient could benefit from cervical epidural steroid injection We have to hold the ELIQUIS for 72 hours , before the procedure, the procedure can be done as an outpatient Patient could benefit from increasing Percocet to 10/325 every 6 hours when necessary Patient could benefit from Neurontin 100 mg 3 times a day Time with Patient: Greater than 30 PQRS Measure Charge Sheet PQRS Narrative: Smoking Status Former smoker Do You Want the Pneumonia Vaccine Up to Date Vaccine AT THIS TIME? Blood Pressure [Left Arm 116/57 Sitting] Blood Pressure 120/68 Pain Intensity [Right Neck] 7 Pain Intensity 0 Pain Scale Used Numeric (1 - 10) Scale Used Numeric (1 - 10) Home Medications: Ambulatory Orders Nitroglycerin Sl Tabs [Nitrostat] 0.4 mg SUBLINGUAL Q5M PRN 03/09/14 Omeprazole [PriLOSEC] 20 mg PO HS 03/09/14 Atorvastatin [Lipitor] 80 mg PO DAILY 05/08/15 Tamsulosin HCl [Flomax] 0.4 mg PO HS 10/09/16 Fluticasone/Vilanterol [Breo Ellipta 100-25 Mcg Inhaler] 1 puff INHALATION RT- DAILY 03/12/18 Potassium Chloride ER [K-Dur 20] 20 meq PO BID #0 03/15/18 Aspirin 325 mg PO DAILY 09/02/19 Glimepiride [Amaryl] 2 mg PO AC-BRKFST 09/02/19 Ipratropium-Albuterol Nebulize [Duoneb 0.5 mg-3 mg/3 ml Soln] 3 ml INHALATION RT-QID PRN 09/02/19 Metoprolol Tartrate 25 mg PO BID 09/02/19 Pramipexole Di-HCl [Mirapex] 1 mg PO DAILY 09/02/19 INSULIN ASPART (NovoLOG) [NovoLOG (formulary)] 15 unit SQ AC-TID #1 vial 09/22/19 Insulin Glargine [Lantus] 50 unit SQ HS #0 09/22/19 Apixaban [Eliquis] 5 mg PO BID 11/01/19 Furosemide [Lasix] 20 mg PO BID 11/01/19 Ketoconazole [Ketoconazole 2% Shampoo] 1 applic TOPICAL Q72H 11/01/19 Linezolid 600 mg PO Q12H 11/01/19 oxyCODONE-APAP 7.5-325MG [Percocet 7.5-325 mg] 1 tab PO QID PRN 11/01/19
[2019-11-03] MEDS: oxyCODONE-APAP 10-325MG 1 EACH TAB PO PRN ×2 (16:15→21:17)
[2019-11-03 16:48] LABS: Glucose,Whole Blood 110 mg/dL (75-99)
--- NOTE | 2019-11-03 17:32 | P.CNOR ---
History of Present Illness - [facility] Consult date: 11/03/19 Requesting physician: Chau Driscoll Consult reason: neck pain History of present illness: Patient is a very pleasant 69-year-old male well known to our service who is seen and examined for further evaluation to his cervical spine. He is known to have have significant degenerative changes at his cervical spine. He is known have chronic low back pain as well. He was recently seen in the outpatient setting for further evaluation. He has consulted with Dr. Browne in pain management and has a scheduled follow-up appointment on 11/09/2019. He is a surgical candidate in regards to his cervical spine if he were to fail all conservative conservative treatment options. Since being seen and examined he has not had any changes or recent accidents regards to his cervical spine. He does continue to have some cervical pain with pain radiating to the left shoulder. More recently he was recently admitted to [facility] after he states he started to feel ill and had difficulty with urination. He was taken there after recommendations by his family. He states he was inpatient at the hospital from 10/16/2019 till 10/23/2019 after he was found to have sepsis. Hiral sparrow had a PICC line placement and had difficulty with his PICC line placement. He took 3 PICC line placements to have adequate placement of a PICC line. Subsequently the last PICC line was discontinued and he was started on oral antibiotic medication. He states due to the PICC line he developed a blood clot in the right shoulder/upper extremity. He began to expand some increased pain and swelling of the right upper extremity. He was placed on Eliquis. He presented to the emergency department yesterday for further evaluation. He had some concern that the blood clot may have moved and to his lungs. He had an elevated d-dimer 2.33. CT imaging was taken which ruled out pulmonary embolism. He continues to have significant difficulty with lower extremity swelling as well. He was on Lasix due to his swelling and since that time has had decreased kidney function. He currently states he is taking in lots of fluids but is not urinating much. He has significant swelling in bilateral lower extremities. He states over the past several days he has felt generally weaker. He has some di fficulty with active range of motion at the deltoids generalized weakness. He states he is been hospitalized 5 times over the past couple months due to his medical diagnoses and feels this has been taxing on him. At this time we did discuss his cervical spine and known changes and long-term plan of care if he were to fail conservative treatment options. We discussed based on his other current medical diagnoses we are not currently planning for surgical intervention in his cervical spine. The patient is family feel this is a good plan of care. Patient is currently waiting for consultation with pain management. Patient is also waiting for consultation with Dr. Yap in infectious disease. Patient has been discussed in detail with Dr. Yap who states he has difficulty obtaining a good history on the patient's treatment at [facility] and he is planning to obtain records for further evaluation. Patient does have a significant past medical history which includes COPD, coron donnell artery disease with stent placement, chronic congestive heart failure, type 2 diabetes, morbid obesity, history of smoking, obstructive sleep apnea on CPAP, chronic hypoxic respiratory failure with history of multiple TIAs, and history of gout.. Past Medical History Past Medical History: Coronary Artery Disease (CAD), Chest Pain / Angina, Heart Failure, COPD, GERD/Reflux, Hyperlipidemia, Hypertension, Osteoarthritis (OA), Pneumonia, Prostate Disorder, Renal Disease, Respiratory Disorder, Sleep Apnea/CPAP/BIPAP, Vascular Disorder Additional Past Medical History / Comment(s): Pt recently admitted to [facility] on 09/21/19 wtih generalized body aches, elevated ESR and diffuse interstitial infiltrates, bilateral lower extremity edema/venous insufficiency. Pt states he was more recently hospitalized at [facility] for decreased renal function. Other hx: Spondylolsis, cervical and low back pain, DDD, chronic respiratory failure, CALLI with Cpap/O2 at 4L/NC at , nonsustained vtach, TIAs, small vessel disease, IDDM type II, diverticular disease, colon polyps-benign, sinus problems, seasonal allergies, sepsis History of Any Multi-Drug Resistant Organisms: None Reported Past Surgical History: Back Surgery, Heart Catheterization With Stent, Joint Replacement, Orthopedic Surgery Additional Past Surgical History / Comment(s): Bilateral knee arthroscopies, total L knee arthroplasty, R total shoulder arthroplasty, L hand injury with repair, PCI with 3 stents, colonoscopies/polypectomies, lumbar epidural injections, bilateral cataract removals/lens implants. Past Anesthesia/Blood Transfusion Reactions: No Reported Reaction Additional Past Anesthesia/Blood Transfusion Reaction / Comm: STATES "HAD A HARD TIME WITH BREATHING POST OP" Date of Last Stent Placement:: 2009 Past Psychological History: No Psychological Hx Reported Additional Psychological History / Comment(s): Pt resides with his spouse. He has a Cpap machine/oxygen, glucose monitor, nebulizer and pulse ox. Pt served in the [employer]. Smoking Status: Former smoker Past Alcohol Use History: None Reported Additional Past Alcohol Use History / Comment(s): QUIT SMOKING IN 2009, STARTED 1962, SMOKED 2 PPD Past Drug Use History: None Reported - Past Family History Father Family Medical History: CVA/TIA, Hyperlipidemia, Hypertension Mother Family Medical History: Hypertension Medications and Allergies Home Medications Medication Instructions Recorded Confirmed Type Nitroglycerin Sl Tabs [Nitrostat] 0.4 mg SUBLINGUAL Q5M PRN 03/09/14 11/03/19 History Omeprazole [PriLOSEC] 20 mg PO HS 03/09/14 11/03/19 History Atorvastatin [Lipitor] 80 mg PO DAILY 05/08/15 11/03/19 History Tamsulosin HCl [Flomax] 0.4 mg PO HS 10/09/16 11/03/19 History Fluticasone/Vilanterol [Breo 1 puff INHALATION RT-DAILY 03/12/18 11/03/19 History Ellipta 100-25 Mcg Inhaler] Potassium Chloride ER [K-Dur 20] 20 meq PO BID #0 03/15/18 11/03/19 Rx Aspirin 325 mg PO DAILY 09/02/19 11/03/19 History Glimepiride [Amaryl] 2 mg PO AC-BRKFST 09/02/19 11/03/19 History Ipratropium-Albuterol Nebulize 3 ml INHALATION RT-QID PRN 09/02/19 11/03/19 History [Duoneb 0.5 mg-3 mg/3 ml Soln] Metoprolol Tartrate 25 mg PO BID 09/02/19 11/03/19 History Pramipexole Di-HCl [Mirapex] 1 mg PO DAILY 09/02/19 11/03/19 History INSULIN ASPART (NovoLOG) [NovoLOG 15 unit SQ AC-TID #1 vial 09/22/19 11/03/19 Rx (formulary)] Insulin Glargine [Lantus] 50 unit SQ HS #0 09/22/19 11/03/19 Rx Apixaban [Eliquis] 5 mg PO BID 11/01/19 11/03/19 History Furosemide [Lasix] 20 mg PO BID 11/01/19 11/03/19 History Ketoconazole [Ketoconazole 2% 1 applic TOPICAL Q72H 11/01/19 11/03/19 History Shampoo] Linezolid 600 mg PO Q12H 11/01/19 11/03/19 History oxyCODONE-APAP 7.5-325MG [Percocet 1 tab PO QID PRN 11/01/19 11/03/19 History 7.5-325 mg] Allergies Allergy/AdvReac Type Severity Reaction Status Date / Time prednisone AdvReac Extreme Verified 11/03/19 07:54 aggression with high doses Physical Examination Physical exam: Patient is awake, alert, and oriented 3 Vital signs stable Good chest excursion with deep inspiration and expiration Examination of the cervical spine reveals skin is intact with no abrasions, lacerations, or bruises; no erythema, purulence or signs of infection Evidence of some swelling over the right side of cervical spine towards the collarbone with no significant bruising, erythema, or obvious signs of infection Mild pain with palpation over the posterior cervical spine and trapezius bilaterally Limited range of motion of the cervical spine with adequate flexion, extension, and bilateral rotation [employer] Analyst strength, thumb strength, interosseous strength, biceps strength, and triceps strength positive sustained bilaterally Difficulty with active range of motion of the deltoids bilaterally. Some weakness with thumb extension bilaterally Evidence of significant swelling with pitting edema of the bilateral lower extremities Results Pertinent studies: CT of the chest taken on 11/03/2019: No evidence of pulmonary embolism; some patchy atelectasis at the lung bases not significantly different and recent exam taken on 11/01/2019; no suspicious pulmonary mass CT of the cervical spine taken on 11/03/2019: Redemonstrated advanced spondylytic changes specifically in the mid to lower cervical spine; C4 5 significant degenerative disc disease and spondylolisthesis with moderate right and moderate to severe left neural foraminal stenosis; C5-6 severe degenerative disc disease, spinal canal stenosis, and moderate left greater than right neuroforaminal stenosis; C6-7 moderate to severe bilateral neural foraminal stenosis and no evidence of fracture the cervical spine; reversal of normal cervical lordosis; facet hypertrophy and uncovertebral joint arthropathy mid to lower cervical spine MRI of the cervical spine with contrast taken on 09/03/2019: Significant motion artifact; C4-5 significant degenerative disc disease with central bilateral neural foraminal stenosis; C5-6 complete disc height loss and central and bilateral neural foraminal stenosis; C6-7 degenerative disc disease and central and bilateral neural foraminal stenosis; loss of cervical lordosis with some cervical kyphosis; no evidence of cord signal change but difficult to visualize given quality of the imaging - Labs Labs: Abnormal Lab Results - Last 24 Hours (Table) 11/03/19 11/03/19 11/03/19 Range/Units 04:55 04:55 04:55 RBC 3.14 L (4.30-5.90) m/uL Hgb 9.6 L (13.0-17.5) gm/dL Hct 29.6 L (39.0-53.0) % RDW 15.7 H (11.5-15.5) % D-Dimer 2.33 H (<0.60) mg/L FEU Sodium 135 L (137-145) mmol/L Glucose 61 L (74-99) mg/dL POC Glucose (mg/dL) (75-99) mg/dL C-Reactive Protein 198.6 H (<10.0) mg/L Total Protein 6.2 L (6.3-8.2) g/dL Albumin 3.3 L (3.5-5.0) g/dL 11/03/19 11/03/19 11/03/19 Range/Units 07:23 08:05 16:43 RBC (4.30-5.90) m/uL Hgb (13.0-17.5) gm/dL Hct (39.0-53.0) % RDW (11.5-15.5) % D-Dimer (<0.60) mg/L FEU Sodium (137-145) mmol/L Glucose (74-99) mg/dL POC Glucose (mg/dL) 57 L 109 H 110 H (75-99) mg/dL C-Reactive Protein (<10.0) mg/L Total Protein (6.3-8.2) g/dL Albumin (3.5-5.0) g/dL H & H 11/03/19 Range/Units 04:55 Hgb 9.6 L (13.0-17.5) gm/dL Hct 29.6 L (39.0-53.0) % Result Diagrams: 11/03/19 04:55 11/03/19 04:55 Assessment and Plan Assessment: Assessment: Left upper extremity radiculopathy Cervicalgia Cervical stenosis at C4-5, C5-6, and C6-7 most significant at C4-5 and C5-6 Cervical degenerative disc disease at C3-4, C4-5, C5-6, and C6-7 with complete disc height loss at C5-6 Chronic low back pain Recent diagnosis of sepsis with failed PICC line placement Recent diagnosis of blood clot to the right shoulder/upper extremity at another facility Elevated d-dimer Elevated CRP Reported decreased urine output and reduced kidney function Currently on oral antibiotics in the outpatient setting Significant bilateral lower extremity swelling and edema History of smoking COPD Coronary artery disease with stent placement Chronic congestive heart failure Type 2 diabetes Morbid obesity Obstructive sleep apnea on CPAP Chronic hypoxic respiratory failure with history of multiple TIAs History of gout (1) Cervical stenosis of spinal canal Current Visit: Yes Status: Acute Code(s): M48.02 - SPINAL STENOSIS, CERVICAL REGION SNOMED Code(s): 54900143 (2) Degenerative disc disease, cervical Current Visit: Yes Status: Acute Code(s): M50.30 - OTHER CERVICAL DISC DEGENERATION, UNSP CERVICAL REGION SNOMED Code(s): 68054343 (3) Chronic low back pain Current Visit: Yes Status: Acute Code(s): M54.5 - LOW BACK PAIN; G89.29 - OTHER CHRONIC PAIN SNOMED Code(s): 352559965 (4) Elevated d-dimer Current Visit: Yes Status: Acute Code(s): R79.89 - OTHER SPECIFIED ABNORMAL FINDINGS OF BLOOD CHEMISTRY SNOMED Code(s): 470451707 (5) Elevated C-reactive protein (CRP) Current Visit: Yes Status: Acute Code(s): R79.82 - ELEVATED C-REACTIVE PROTEIN (CRP) SNOMED Code(s): 956554408037933 (6) Swelling of both lower extremities Current Visit: Yes Status: Acute Code(s): M79.89 - OTHER SPECIFIED SOFT TISSUE DISORDERS SNOMED Code(s): 284784664 (7) Bilateral lower extremity edema Current Visit: Yes Status: Acute Code(s): R60.0 - LOCALIZED EDEMA SNOMED Code(s): 676380610 (8) History of sepsis Current Visit: Yes Status: Acute Code(s): Z86.19 - PERSONAL HISTORY OF OTHER INFECTIOUS AND PARASITIC DISEASES SNOMED Code(s): 666960119554004 (9) History of smoking Current Visit: Yes Status: Acute Code(s): Z87.891 - PERSONAL HISTORY OF NICOTINE DEPENDENCE SNOMED Code(s): 349187192 (10) Coronary artery disease Current Visit: Yes Status: Acute Code(s): I25.10 - ATHSCL HEART DISEASE OF [place] CORONARY ARTERY W/O ANG PCTRS SNOMED Code(s): 43919352 (11) History of coronary artery stent placement Current Visit: Yes Status: Acute Code(s): Z95.5 - PRESENCE OF CORONARY ANGIOPLASTY IMPLANT AND GRAFT SNOMED Code(s): 136903728 (12) Type 2 diabetes mellitus Current Visit: Yes Status: Acute Code(s): E11.9 - TYPE 2 DIABETES MELLITUS WITHOUT COMPLICATIONS SNOMED Code(s): 44388948 (13) Morbid obesity Current Visit: Yes Status: Acute Code(s): E66.01 - MORBID (SEVERE) OBESITY DUE TO EXCESS CALORIES SNOMED Code(s): 251291373 (14) Obstructive sleep apnea Current Visit: Yes Status: Acute Code(s): G47.33 - OBSTRUCTIVE SLEEP APNEA (ADULT) (PEDIATRIC) SNOMED Code(s): 60506502 (15) Chronic respiratory failure with hypoxia Current Visit: Yes Status: Acute Code(s): J96.11 - CHRONIC RESPIRATORY FA ILURE WITH HYPOXIA SNOMED Code(s): 530443750 (16) History of gout Current Visit: Yes Status: Acute Code(s): Z87.39 - PERSONAL HISTORY OF DISEASES OF THE MS SYS AND CONN TISS SNOMED Code(s): 421883640 (17) Neck pain Current Visit: Yes Status: Acute Priority: Medium Code(s): M54.2 - CERVICALGIA SNOMED Code(s): 00223768 (18) COPD (chronic obstructive pulmonary disease) Current Visit: No Status: Acute Code(s): J44.9 - CHRONIC OBSTRUCTIVE PULMONARY DISEASE, UNSPECIFIED SNOMED Code(s): 08395847 (19) Congestive heart failure Current Visit: No Status: Acute Code(s): I50.9 - HEART FAILURE, UNSPECIFIED SNOMED Code(s): 84346881 Plan: Plan: 1. In regards to his cervical spine, we'll continue with plan of care as previously set forth in the outpatient setting. Patient has been discussed in detail with Dr. Nickolas Grier. He will plan to continue following with Dr. Browne in pain management in the outpatient setting for further treatment and evaluation in regards to his cervical spine. If he were to fail conservative treatment options, we did discuss again he is candidate for surgical interven tion. He does have significant changes of his cervical spine most significant at C4-5, C5-6, and C6-7. The most likely proposed surgical intervention would be a C4-5, C5-6, and C6-7 anterior cervical decompression and fusion and possibly C3-4. We also discussed his other current significant medical diagnoses including recent sepsis diagnosis with failed PICC line placement currently being treated with antibiotics. Patient was also recently diagnosed with a blood clot in the right upper extremity/shoulder following one of the PICC line placements. He has been placed on anticoagulation with Eliquis. Laboratory testing today showed evidence of elevated d-dimer and CRP. CT imaging was negative for pulmonary embolism. The patient states he was also on a significant amount of Lasix due to his lower extremity swelling and has such had difficulty with urine output and kidney function. He currently has significant swelling and edema in the bilateral lower extremities. We discussed in detail his significant other medical diagnoses and at this time proceeding forward with surgical intervention in his cervical spine is not recommended. We discussed he should work to further treatment with medicine and infectious disease to further treat his other significant medical diagnoses. Has been seen by infectious disease who stated they are planning to obtain records from [facility] for further information on his previous diagnoses and plan of care. In regards to his cervical spine, we will plan to have the patient follow-up in the outpatient setting in approximately 2-3 months as previously scheduled. We had also plan have him continue following with Dr. Browne in pain management as previously scheduled. Patient feels this is a good plan of care. At this time, patient is clear for discharge from an orthopedic spine standpoint. We will plan have him follow-up in the outpatient setting as previously scheduled. 2. Patient will continue be seen and examined by multiple other medical providers including medicine and infectious disease for his multiple other medical diagnoses Time with Patient: Greater than 30 (Including obtaining history, physical examination, reviewing of imaging, and dictation.)
[2019-11-03] MEDS: PANTOPRAZOLE 40 MG TABLET PO SCH (21:17)
[2019-11-03] MEDS: METOPROLOL TARTRATE 25 MG TAB PO SCH (21:18)
[2019-11-03] MEDS: GABAPENTIN 100 MG CAP PO SCH (21:18)
[2019-11-03] MEDS: TAMSULOSIN 0.4 MG CAP.ER.24H PO SCH (21:18)
[2019-11-03] MEDS: FUROSEMIDE 10 MG/ML 2 ML VIAL IV SCH (21:19)
[2019-11-03] MEDS: POTASSIUM CHLORIDE ER 20 MEQ TAB.ER PO SCH (21:26)
[2019-11-03] MEDS: PRAMIPEXOLE 1 MG TAB PO SCH (21:34)
[2019-11-03 21:39] LABS: Glucose,Whole Blood 130 mg/dL (75-99)
[2019-11-03] MEDS: INSULIN DETEMIR (LEVEMIR) 100 UNIT/ML SYR SQ SCH (21:39)
--- NOTE | 2019-11-03 22:13 | P.CONS ---
History of Present Illness - Reason for Consult Consult date: 11/03/19 Elevated CRP Requesting physician: Chau Driscoll - Chief Complaint Right upper arm and neck pain x few days - History of Present Illness Patient is a 69-year-old patient male with a past medical history significant for chronic neck and back pain secondary to advanced osteoarthritic changes, and this patient was recently have multiple hospital admission because of his neck and back pain and apparently the patient was admitted twice at [facility] with the patient was diagnosed with sepsis however the patient is not able to tell me what the source of the sepsis was, was present at the bedside and she was not sure about the source of sepsis either other type of infection he has apparently he was treated with IV antibiotic through PICC line that got complicated with a right upper extremity DVT subsequently antibiotic has been switched over to oral Zyvox with the patient scheduled to complete as of this 11/05/2019. The patient has not been brought to the hospital with concern for pain to the right upper arm and to the neck patient described the pain to be sharp at times dull aching intensity can be 7-8 out of 10 patient denies having any weakness in the right upper extremity did have some difficulty moving the shoulder, patient denies having any swelling or redness right upper extremity patient denies having any fever or any chills no fever has been recorded since admission to the hospital and the patient did have a normal white count he was noticed to have elevated CRP of 198 that prompted this infectious disease consultation patient has been continued on Zyvox with the patient is scheduled to continue until 11/05/2019, patient did have a CT angiogram of the chest which was negative for PE and did not show any pneumonia, patient also have a CT of the cervical spine which was advanced spondylytic changes was also some soft tissue thickening which was attributed to arteries rather than to the soft tissue swelling Review of Systems Positive point has been mentioned in the HPI rest of the systems are negative Past Medical History Past Medical History: Coronary Artery Disease (CAD), Chest Pain / Angina, Heart Failure, COPD, GERD/Reflux, Hyperlipidemia, Hypertension, Osteoarthritis (OA), Pneumonia, Prostate Disorder, Renal Disease, Respiratory Disorder, Sleep Apnea/CPAP/BIPAP, Vascular Disorder Additional Past Medical History / Comment(s): Pt recently admitted to [facility] on 09/21/19 wtih generalized body aches, elevated ESR and diffuse interstitial infiltrates, bilateral lower extremity edema/venous insufficiency. Pt states he was more recently hospitalized at [facility] for decreased renal function. Other hx: Spondylolsis, cervical and low back pain, DDD, chronic respiratory failure, CALLI with Cpap/O2 at 4L/NC at , nonsustained vtach, TIAs, small vessel disease, IDDM type II, diverticular disease, colon polyps-benign, sinus problems, seasonal allergies, sepsis History of Any Multi-Drug Resistant Organisms: None Reported Past Surgical History: Back Surgery, Heart Catheterization With Stent, Joint Replacement, Orthopedic Surgery Additional Past Surgical History / Comment(s): Bilateral knee arthroscopies, total L knee arthroplasty, R total shoulder arthroplasty, L hand injury with repair, PCI with 3 stents, colonoscopies/polypectomies, lumbar epidural injections, bilateral cataract removals/lens implants. Past Anesthesia/Blood Transfusion Reactions: No Reported Reaction Additional Past Anesthesia/Blood Transfusion Reaction / Comm: STATES "HAD A HARD TIME WITH BREATHING POST OP" Date of Last Stent Placement:: 2009 Past Psychological History: No Psychological Hx Reported Additional Psychological History / Comment(s): Pt resides with his spouse. He has a Cpap machine/oxygen, glucose monitor, nebulizer and pulse ox. Pt served in the [employer]. Smoking Status: Former smoker Past Alcohol Use History: None Reported Additional Past Alcohol Use History / Comment(s): QUIT SMOKING IN 2009, STARTED 1962, SMOKED 2 PPD Past Drug Use History: None Reported - Past Family History Father Family Medical History: CVA/TIA, Hyperlipidemia, Hypertension Mother Family Medical History: Hypertension Medications and Allergies Home Medications Medication Instructions Recorded Confirmed Type Nitroglycerin Sl Tabs [Nitrostat] 0.4 mg SUBLINGUAL Q5M PRN 03/09/14 11/03/19 History Omeprazole [PriLOSEC] 20 mg PO HS 03/09/14 11/03/19 History Atorvastatin [Lipitor] 80 mg PO DAILY 05/08/15 11/03/19 History Tamsulosin HCl [Flomax] 0.4 mg PO HS 10/09/16 11/03/19 History Fluticasone/Vilanterol [Breo 1 puff INHALATION RT-DAILY 03/12/18 11/03/19 History Ellipta 100-25 Mcg Inhaler] Potassium Chloride ER [K-Dur 20] 20 meq PO BID #0 03/15/18 11/03/19 Rx Aspirin 325 mg PO DAILY 09/02/19 11/03/19 History Glimepiride [Amaryl] 2 mg PO AC-BRKFST 09/02/19 11/03/19 History Ipratropium-Albuterol Nebulize 3 ml INHALATION RT-QID PRN 09/02/19 11/03/19 History [Duoneb 0.5 mg-3 mg/3 ml Soln] Metoprolol Tartrate 25 mg PO BID 09/02/19 11/03/19 History Pramipexole Di-HCl [Mirapex] 1 mg PO DAILY 09/02/19 11/03/19 History INSULIN ASPART (NovoLOG) [NovoLOG 15 unit SQ AC-TID #1 vial 09/22/19 11/03/19 Rx (formulary)] Insulin Glargine [Lantus] 50 unit SQ HS #0 09/22/19 11/03/19 Rx Apixaban [Eliquis] 5 mg PO BID 11/01/19 11/03/19 History Furosemide [Lasix] 20 mg PO BID 11/01/19 11/03/19 History Ketoconazole [Ketoconazole 2% 1 applic TOPICAL Q72H 11/01/19 11/03/19 History Shampoo] Linezolid 600 mg PO Q12H 11/01/19 11/03/19 History oxyCODONE-APAP 7.5-325MG [Percocet 1 tab PO QID PRN 11/01/19 11/03/19 History 7.5-325 mg] Allergies Allergy/AdvReac Type Severity Reaction Status Date / Time prednisone AdvReac Extreme Verified 11/03/19 07:54 aggression with high doses Physical Exam Vitals: Vital Signs Temp Pulse Pulse Resp BP BP Pulse Ox 11/03/19 12:38 98.2 F 104 H 16 116/57 97 11/03/19 12:17 98.4 F 113 H 20 120/68 97 11/03/19 10:20 98.7 F 113 H 20 123/64 92 L 11/03/19 06:12 104 H 20 131/70 98 11/03/19 04:07 98.4 F 68 18 152/74 100 Intake and Output 11/02/19 11/03/19 11/03/19 22:59 06:59 14:59 Other: Weight 104.326 kg 104.326 kg GENERAL DESCRIPTION: Elderly male up in bed, no distress. No tachypnea or accessory muscle of respiration use. HEENT: Shows Pallor , no scleral icterus. Oral mucous membrane is dry. No pharyngeal erythema or thrush NECK: Trachea central, no thyromegaly. LUNGS: Unlabored breathing. Decreased breath sound the bases. No wheeze or crackle. HEART: S1, S2, regular rate and rhythm. No loud murmur ABDOMEN: Soft, no tenderness , guarding or rigidity, no organomegaly EXTREMITIES: Diffuse swelling of bilateral lower extremity with 2+ edema feet no redness Right upper extremity currently with no swelling no redness SKIN: No rash, no masses palpable. NEUROLOGICAL: The patient is awake, alert, oriented x3, mood and affect normal. Results CBC & Chem 7: 11/03/19 04:55 11/03/19 04:55 Labs: Abnormal Lab Results - Last 24 Hours (Table) 11/03/19 11/03/19 11/03/19 Range/Units 04:55 04:55 04:55 RBC 3.14 L (4.30-5.90) m/uL Hgb 9.6 L (13.0-17.5) gm/dL Hct 29.6 L (39.0-53.0) % RDW 15.7 H (11.5-15.5) % D-Dimer 2.33 H (<0.60) mg/L FEU Sodium 135 L (137-145) mmol/L Glucose 61 L (74-99) mg/dL POC Glucose (mg/dL) (75-99) mg/dL C-Reactive Protein 198.6 H (<10.0) mg/L Total Protein 6.2 L (6.3-8.2) g/dL Albumin 3.3 L (3.5-5.0) g/dL 11/03/19 11/03/19 Range/Units 07:23 08:05 RBC (4.30-5.90) m/uL Hgb (13.0-17.5) gm/dL Hct (39.0-53.0) % RDW (11.5-15.5) % D-Dimer (<0.60) mg/L FEU Sodium (137-145) mmol/L Glucose (74-99) mg/dL POC Glucose (mg/dL) 57 L 109 H (75-99) mg/dL C-Reactive Protein (<10.0) mg/L Total Protein (6.3-8.2) g/dL Albumin (3.5-5.0) g/dL Assessment and Plan Assessment: 1- patient presented to hospital with neck and right upper arm pain in this patient who did have a advanced spondylitic changes to his cervical spine more likely representing radiating pain to the right arm from entrapment of in this patient who did have elevated CRP however the patient is currently afebrile he did have a normal white count, patient also give a vague history of sepsis for the patient continued to be on oral Zyvox however is not sure about the source of the sepsis or the organism that was being treated for, patient currently do not have any other obvious focus of infection CT angiomas negative for any pneumonia no evidence of any cellulitis abdominal soft mechanical examination if possible source of infection could be the cervical spines with the patient to have the symptoms (1) Elevated C-reactive protein (CRP) Current Visit: Yes Status: Acute Code(s): R79.82 - ELEVATED C-REACTIVE PROTEIN (CRP) SNOMED Code(s): 398203732816227 Plan: 1- we will try to obtain records from [facility] of recent inpatient stay 2-blood cultures will be obtained today as well as tomorrow 3-we will check a sed rate and repeat a CRP tomorrow, may need an MRI of the cervical spine with contrast if the inflammatory markers remains to be elevated or shows further worsening 4-continue with oral Zyvox 600 mg by mouth twice a day for now We will follow on clinical condition and cultures to further adjust medication if needed Thank you for this consultation will follow this patient with you Time with Patient: Greater than 30
--- NOTE | 2019-11-04 01:25 | P.HPIM ---
History of Present Illness H&P Date: 11/03/19 Chief Complaint: Neck Pain Patient is a 69-year-old male with a known history of chronic neck pain, coronary artery disease history of stent placement, chronic CHF with diastolic dysfunction, hypertension, hyperlipidemia, diabetes type 2 insulin-dependent morbid obesity and obstructive sleep apnea who was recently admitted to [facility] with generalized body aches. Patient was also recently discharged from [facility] and was treated for possible sepsis with unknown etiology. Patient was discharged on IV antibiotics and change to oral antibiotics in the form of Zyvox and due to complication of DVT in the left upper extremity. Patient is currently on Eliquis twice daily. Patient was recently discharged from the hospital on 09/22/2019 with a course of antibiotics in the form of Levaquin due to diffuse interstitial infiltrates. Patient presents to ER with complaints of neck pain mainly on the right side radiating down his shoulder and right arm. Patient is unable to move his right completely. Patient also complaining of right arm numbness as well. Denied any complaints of fever or chills. No chest pain or worsening shortness of breath. Patient does have chronic bilateral lower extremity swelling currently on Lasix at home by Mouth. CT angiogram of the chest showed no evidence of pulmonary embolism. There is some patchy atelectasis atelectasis in the lung base not significantly different from present exam. No suspicious pulmonary mass. Stable mild posterior pleural scarring. CT cervical spine showed redemonstrated advanced spondylitic changes especially in the mid to lower cervical spine. Degenerative grade 1 anterolisthesis at C4, C5 and focal kyphotic deformity. Variable neural foraminal stenosis. Apparent thickening of the prevertebral soft tissue seems to correspond to retropharyngeal course of the internal carotid arteries rather than effusion or edema. Laboratory data showed WBC 9.8, hemoglobin 9.6 and platelets 249 D-dimer is 2.33 CT PE negative. Sodium 135, potassium 4.9, chloride 100, BUN 15 and creatinine 1.09 Blood sugar was 61 on admission CRP is 198.6 Albumin 3.3 patient was afebrile on but tachycardic with heart rate around 115 Review of Systems Constitutional: Patient denies any fever or chills . No generalized weakness or weight loss. Abdomen: Patient denied nausea vomiting and diarrhea and abdominal pain. Cardiovascular: Patient denies any chest pain or short of breath no palpitations. Respiratory: patient denied any cough is from production. No shortness of breath Neurologic: Patient denied any numbness or tingling headache. Musculoskeletal: Patient denies any complaints of joint swelling or deformity. Patient complains of neck pain and shoulder pain on the right side and also shooting down pain down the right arm. Skin: Negative Psychiatric: Negative Endocrine: No heat or cold intolerance. No recent weight gain. Genitourinary: No dysuria or hematuria. All other 14 point ROS negative except the above Past Medical History Past Medical History: Coronary Artery Disease (CAD), Chest Pain / Angina, Heart Failure, COPD, GERD/Reflux, Hyperlipidemia, Hypertension, Osteoarthritis (OA), Pneumonia, Prostate Disorder, Renal Disease, Respiratory Disorder, Sleep Apnea/CPAP/BIPAP, Vascular Disorder Additional Past Medical History / Comment(s): Pt recently admitted to [facility] on 09/21/19 wtih generalized body aches, elevated ESR and diffuse interstitial infiltrates, bilateral lower extremity edema/venous insufficiency. Pt states he was more recently hospitalized at [facility] for decreased renal function. Other hx: Spondylolsis, cervical and low back pain, DDD, chronic respiratory failure, CALLI with Cpap/O2 at 4L/NC at , nonsustained vtach, TIAs, small vessel disease, IDDM type II, diverticular disease, colon polyps-benign, sinus problems, seas onal allergies, sepsis History of Any Multi-Drug Resistant Organisms: None Reported Past Surgical History: Back Surgery, Heart Catheterization With Stent, Joint Replacement, Orthopedic Surgery Additional Past Surgical History / Comment(s): Bilateral knee arthroscopies, total L knee arthroplasty, R total shoulder arthroplasty, L hand injury with repair, PCI with 3 stents, colonoscopies/polypectomies, lumbar epidural inject ions, bilateral cataract removals/lens implants. Past Anesthesia/Blood Transfusion Reactions: No Reported Reaction Additional Past Anesthesia/Blood Transfusion Reaction / Comment(s): STATES "HAD A HARD TIME WITH BREATHING POST OP" Date of Last Stent Placement:: 2009 Past Psychological History: No Psychological Hx Reported Additional Psychological History / Comment(s): Pt resides with his spouse. He has a Cpap machine/oxygen, glucose monitor, nebulizer and pulse ox. Pt served in the [employer]. Smoking Status: Former smoker Past Alcohol Use History: None Reported Additional Past Alcohol Use History / Comment(s): QUIT SMOKING IN 2009, STARTED 1962, SMOKED 2 PPD Past Drug Use History: None Reported - Past Family History Father Family Medical History: CVA/TIA, Hyperlipidemia, Hypertension Mother Family Medical History: Hypertension Medications and Allergies Home Medications Medication Instructions Recorded Confirmed Type Nitroglycerin Sl Tabs [Nitrostat] 0.4 mg SUBLINGUAL Q5M PRN 03/09/14 11/03/19 History Omeprazole [PriLOSEC] 20 mg PO HS 03/09/14 11/03/19 History Atorvastatin [Lipitor] 80 mg PO DAILY 05/08/15 11/03/19 History Tamsulosin HCl [Flomax] 0.4 mg PO HS 10/09/16 11/03/19 History Fluticasone/Vilanterol [Breo 1 puff INHALATION RT-DAILY 03/12/18 11/03/19 History Ellipta 100-25 Mcg Inhaler] Potassium Chloride ER [K-Dur 20] 20 meq PO BID #0 03/15/18 11/03/19 Rx Aspirin 325 mg PO DAILY 09/02/19 11/03/19 History Glimepiride [Amaryl] 2 mg PO AC-BRKFST 09/02/19 11/03/19 History Ipratropium-Albuterol Nebulize 3 ml INHALATION RT-QID PRN 09/02/19 11/03/19 History [Duoneb 0.5 mg-3 mg/3 ml Soln] Metoprolol Tartrate 25 mg PO BID 09/02/19 11/03/19 History Pramipexole Di-HCl [Mirapex] 1 mg PO DAILY 09/02/19 11/03/19 History INSULIN ASPART (NovoLOG) [NovoLOG 15 unit SQ AC-TID #1 vial 09/22/19 11/03/19 Rx (formulary)] Insulin Glargine [Lantus] 50 unit SQ HS #0 09/22/19 11/03/19 Rx Apixaban [Eliquis] 5 mg PO BID 11/01/19 11/03/19 History Furosemide [Lasix] 20 mg PO BID 11/01/19 11/03/19 History Ketoconazole [Ketoconazole 2% 1 applic TOPICAL Q72H 11/01/19 11/03/19 History Shampoo] Linezolid 600 mg PO Q12H 11/01/19 11/03/19 History oxyCODONE-APAP 7.5-325MG [Percocet 1 tab PO QID PRN 11/01/19 11/03/19 History 7.5-325 mg] Allergies Allergy/AdvReac Type Severity Reaction Status Date / Time prednisone AdvReac Extreme Verified 11/03/19 07:54 aggression with high doses Physical Exam Vitals: Vital Signs Temp Pulse Resp BP Pulse Ox 11/03/19 10:20 98.7 F 113 H 20 123/64 92 L 11/03/19 06:12 104 H 20 131/70 98 11/03/19 04:07 98.4 F 68 18 152/74 100 Intake and Output 11/02/19 11/03/19 11/03/19 22:59 06:59 14:59 Other: Weight 104.326 kg 104.326 kg PHYSICAL EXAMINATION: Patient is lying in the bed comfortably, He appears to be in distress due to pain., awake alert and oriented.. HEENT: Normocephalic. Neck is supple. Pupils reactive. Nostrils clear. Oral cavity is moist. Ears reveal no drainage. Neck reveals no JVD, carotid bruits, or thyromegaly. CHEST EXAMINATION: Trachea is central. Symmetrical expansion. Bibasilar crackles and no wheezing. Nonlabored breathing.. CARDIAC: Normal S1, S2 with no gallops. No murmurs ABDOMEN: Soft. Bowel sounds normal. No organomegaly. No abdominal bruits. Extremities: Bilateral lower extremity 3+ edema. No clubbing or cyanosis Neurologically awake, alert, oriented x3 with well-coordinated movements. No focal deficits noted Skin: No rash or skin lesions. Psychiatric: Coperative. Nonsuicidal Musculoskeletal: No joint swelling or deformity. Normal range of motion. Results CBC & Chem 7: 11/03/19 04:55 11/03/19 04:55 Labs: Abnormal Lab Results - Last 24 Hours (Table) 11/03/19 11/03/19 11/03/19 Range/Units 04:55 04:55 04:55 RBC 3.14 L (4.30-5.90) m/uL Hgb 9.6 L (13.0-17.5) gm/dL Hct 29.6 L (39.0-53.0) % RDW 15.7 H (11.5-15.5) % D-Dimer 2.33 H (<0.60) mg/L FEU Sodium 135 L (137-145) mmol/L Glucose 61 L (74-99) mg/dL POC Glucose (mg/dL) (75-99) mg/dL C-Reactive Protein 198.6 H (<10.0) mg/L Total Protein 6.2 L (6.3-8.2) g/dL Albumin 3.3 L (3.5-5.0) g/dL 11/03/19 11/03/19 Range/Units 07:23 08:05 RBC (4.30-5.90) m/uL Hgb (13.0-17.5) gm/dL Hct (39.0-53.0) % RDW (11.5-15.5) % D-Dimer (<0.60) mg/L FEU Sodium (137-145) mmol/L Glucose (74-99) mg/dL POC Glucose (mg/dL) 57 L 109 H (75-99) mg/dL C-Reactive Protein (<10.0) mg/L Total Protein (6.3-8.2) g/dL Albumin (3.5-5.0) g/dL Thrombosis Risk Factor Assmnt - DVT/VTE Prophylaxis DVT/VTE Prophylaxis: Pharmacologic Prophylaxis ordered - Choose All That Apply Any of the Below Risk Factors Present?: Yes Each Factor Represents 1 point: Abnormal pulmonary function (COPD), Obesity (BMI >25), Serious lung disease incl. pneumonia (< 1month) Other Risk Factors: Yes Each Risk Factor Represents 2 Points: Age 61-74 years Other congenital or acquired thrombophilia - If yes, enter type in comment: No Thrombosis Risk Factor Assessment Total Risk Factor Score: 5 Thrombosis Risk Factor Assessment Level: High Risk Assessment and Plan Assessment: Right sided neck pain and upper arm pain likely due to advanced spondylitic gigi nges in the lower cervical spine Possible cervical radiculopathy Elevated CRP level without elevated WBC count or fever. Recent antibiotic course for possible sepsis at [facility] exact etiol ogy unknown at this time. Recent upper extremity DVT. Currently on Eliquis Pulmonary interstitial infiltrates unchanged from previous admission in September 2019 Coronary artery disease with history of stent placement History of back surgery Chronic bilateral lower acuity swelling due to venous insufficiency. Chronic CHF with diastolic dysfunction Diabetes type 2 insulin-dependent Obstructive sleep apnea on CPAP at home Morbid obesity with BMI 36.0 Chronic hypoxic respiratory failure secondary to COPD History of TIAs History of nonsustained V. tach Osteoarthritis GERD Hyperlipidemia DVT prophylaxis patient is already on anticoagulation Plan: Patient will be continued on pain management with Percocet 10. Pain management service is following. Orthopedic surgery is on board. Currently being c ontinued on antibiotics in the form of Zyvox as per recent antibiotic course from [facility]. Continue with insulin dosing and titrate as needed. ID and orthopedic surgery is following. Monitor CRP levels. Further recommendations based on the clinical course. Prognosis guarded with multiple medical problems and comorbid conditions. Time with Patient: Greater than 30
[2019-11-04] MEDS: oxyCODONE-APAP 10-325MG 1 EACH TAB PO PRN ×4 (02:17→20:32)
[2019-11-04 07:01] LABS: Glucose,Whole Blood 81 mg/dL (75-99)
[2019-11-04] MEDS: IPRATROPIUM-ALBUTEROL 3 ML NEB INHALATION PRN ×3 (07:27→19:05)
[2019-11-04] MEDS: SYMBICORT 80-4.5 MCG INHALER INHALATION SCH ×2 (07:27→19:05)
[2019-11-04 07:30] LABS: Anisocytosis Slight; Basophils # (A) 0.1 k/uL (0-0.2); Basophils % (A) 1 %; Eosinophils # (A) 0.5 k/uL (0-0.7); Eosinophils % (A) 4 %; HCT 28.1 % (39.0-53.0); HGB 9.2 gm/dL (13.0-17.5); Lymphocytes # (A) 1.3 k/uL (1.0-4.8); Lymphocytes % (A) 12 %; MCH 31.2 pg (25.0-35.0); MCHC 32.7 g/dL (31.0-37.0); MCV 95.2 fL (80.0-100.0); Mean Platelet Volume 8.5; Monocytes # (A) 0.6 k/uL (0-1.0); Monocytes % (A) 5 %; Neutrophils # (A) 8.7 k/uL (1.3-7.7); Neutrophils % (A) 77 %; Platelet Count 214 k/uL (150-450); RBC 2.96 m/uL (4.30-5.90); RDW 16.1 % (11.5-15.5); WBC 11.3 k/uL (3.8-10.6)
[2019-11-04] MEDS: LINEZOLID 600 MG TAB PO SCH ×2 (08:04→20:52)
[2019-11-04] MEDS: INSULIN ASPART (NovoLOG) 100 UNIT/ML VIAL SQ SCH ×3 (08:04→16:06)
[2019-11-04] MEDS: ASPIRIN 325 MG TAB PO SCH (08:05)
[2019-11-04] MEDS: POTASSIUM CHLORIDE ER 20 MEQ TAB.ER PO SCH ×2 (08:05→20:31)
[2019-11-04] MEDS: METOPROLOL TARTRATE 25 MG TAB PO SCH ×2 (08:05→20:31)
[2019-11-04] MEDS: ATORVASTATIN 80 MG TAB PO SCH (08:05)
[2019-11-04] MEDS: APIXABAN 5 MG TAB PO SCH ×2 (08:05→20:31)
[2019-11-04] MEDS: GABAPENTIN 100 MG CAP PO SCH ×3 (08:05→20:31)
[2019-11-04] MEDS: SODIUM CHLORIDE 0.9% 1,000 ML IV SCH (08:06)
[2019-11-04 09:45] LABS: Erythrocyte Sedimentation Rate 124 mm/hr (0-15)
[2019-11-04] MEDS: FUROSEMIDE 10 MG/ML 2 ML VIAL IV SCH ×3 (11:39→20:31)
[2019-11-04 11:52] LABS: Glucose,Whole Blood 75 mg/dL (75-99)
[2019-11-04 16:34] LABS: Glucose,Whole Blood 117 mg/dL (75-99)
[2019-11-04 20:15] LABS: Glucose,Whole Blood 160 mg/dL (75-99)
[2019-11-04] MEDS: TAMSULOSIN 0.4 MG CAP.ER.24H PO SCH (20:31)
[2019-11-04] MEDS: PANTOPRAZOLE 40 MG TABLET PO SCH (20:31)
[2019-11-04] MEDS: INSULIN DETEMIR (LEVEMIR) 100 UNIT/ML SYR SQ SCH (20:41)
[2019-11-04] MEDS: PRAMIPEXOLE 1 MG TAB PO SCH (20:52)
[2019-11-04] MEDS ORDERED: SODIUM CHLORIDE 0.9% 500 ML 500 ML IV ONE (21:57)
[2019-11-04] MEDS ORDERED: VANCOMYCIN IV PER PHARMACY 1 EACH MISC MISCELLANE PRN (21:58)
[2019-11-04] MEDS ORDERED: VANCOMYCIN 1,500 MG in SODIUM CHLORIDE 0.9% 250 ML IVPB SCH (22:15)
[2019-11-04] MEDS ORDERED: VANCOMYCIN 1,750 MG in SODIUM CHLORIDE 0.9% 500 ML 500 ML IVPB SCH (22:15)
--- NOTE | 2019-11-04 23:16 | PN ---
PROGRESS NOTE DATE OF SERVICE: 11/04/2019 REASON FOR FOLLOWUP: Elevated CRP and fever. INTERVAL HISTORY: The patient was afebrile this morning. Subsequently this afternoon and evening, the patient did spike a fever of 100.4 degrees Fahrenheit. The patient had been complaining of pain to the neck and the right upper arm area. No chest pain, shortness of breath or cough. No nausea, no vomiting. No abdominal pain. No diarrhea. PHYSICAL EXAMINATION: Blood pressure 131/60 with a pulse of 130, temperature 100.4. He is 92% on 4 L nasal cannula. General description is an elderly male up in the chair in no distress. RESPIRATORY SYSTEM: Unlabored breathing, decreased breath sounds at the bases. No wheeze. HEART: S1, S2. Regular rate and rhythm. ABDOMEN: Soft, no tenderness. LABS: CRP is up to 267 today. White count is normal. Creatinine 1.09. Blood culture so far pending. Elevated today with information obtained from [facility] unfortunately it did lack the discharge summary or the culture data. DIAGNOSTIC IMPRESSION AND PLAN: Patient with elevated CRP in this patient who did have symptom of neck pain radiating to the arm with concern for possible cervical discitis or osteomyelitis. Blood cultures will be followed. MRI of the cervical spine with and without contrast will be obtained. We will discontinue Zyvox, start the patient on vancomycin pharmacy to dose and try to get the culture data from [facility] again. His questions and concerns were answered and we will his clinical course course closely. MMODL / IJN: [id number] /
--- NOTE | 2019-11-05 00:27 | P.PN ---
Subjective Progress Note Date: 11/04/19 Principal diagnosis: neck pain and Shoulder pain Patient is a 69-year-old male with a known history of chronic neck pain, coronary artery disease history of stent placement, chronic CHF with diastolic dysfunction, hypertension, hyperlipidemia, diabetes type 2 insulin-dependent m orbid obesity and obstructive sleep apnea who was recently admitted to [facility] with generalized body aches. Patient was also recently discharged from [facility] and was treated for possible sepsis with unknown etiology. Patient was discharged on IV antibiotics and change to oral antibiotics in the form of Zyvox and due to complication of DVT in the left upper extremity. Patient is currently on Eliquis twice daily. Patient was recently discharged from the hospital on 09/22/2019 with a course of antibiotics in the form of Levaquin due to diffuse interstitial infiltrates. Patient presents to ER with complaints of neck pain mainly on the right side radiating down his shoulder and right arm. Patient is unable to move his right completely. Patient also complaining of right arm numbness as well. Denied any complaints of fever or chills. No chest pain or worsening shortness of breath. Patient does have chronic bilateral lower extremity swelling currently on Lasix at home by [facility]. CT angiogram of the chest showed no evidence of pulmonary embolism. There is s ome patchy atelectasis atelectasis in the lung base not significantly different from present exam. No suspicious pulmonary mass. Stable mild posterior pleural scarring. CT cervical spine showed redemonstrated advanced spondylitic changes especially in the mid to lower cervical spine. Degenerative grade 1 anterolisthesis at C4, C5 and focal kyphotic deformity. Variable neural foraminal stenosis. Apparent thickening of the prevertebral soft tissue seems to correspond to retropharyngeal course of the internal carotid arteries rather than effusion or edema. Laboratory data showed WBC 9.8, hemoglobin 9.6 and platelets 249 D-dimer is 2.33 CT PE negative. Sodium 135, potassium 4.9, chloride 100, BUN 15 and creatinine 1.09 Blood sugar was 61 on admission CRP is 198.6 Albumin 3.3 patient was afebrile on but tachycardic with heart rate around 115 11/04/2019 Patient is currently sitting in the chair but still complaining of neck pain and is right-hand clenched towards the chest. Patient does not have any fever or chills this morning. No nausea vomiting or abdominal pain. No diarrhea. Patient is refusing IV Lasix saying that he was told that it is not good for his kidneys. Laboratory data showed WBC 11.3, hemoglobin 9.1 platelets 214 CRP level is 267 today. Currently on antibiotics in the form of Zyvox. ID is following. Awaiting records from the [facility]. Objective - Vital Signs Vital signs: Vital Signs Temp 100.9 F H 11/04/19 21:40 Pulse 121 H 11/04/19 21:40 Resp 20 11/04/19 21:40 BP 129/64 11/04/19 21:40 Pulse Ox 92 L 11/04/19 21:40 Intake & Output 11/04/19 11/04/19 11/05/19 06:59 18:59 06:59 Intake Total 720 200 Output Total 600 Balance 120 200 Weight 104.326 kg Intake: Oral 720 Other 200 Output: Urine 600 Other: Voiding Method Toilet Toilet Toilet # Voids 1 - Exam PHYSICAL EXAMINATION: Patient is lying in the bed comfortably, He appears to be in distress due to pain., awake alert and oriented.. HEENT: Normocephalic. Neck is supple. Pupils reactive. Nostrils clear. Oral cavity is moist. Ears reveal no drainage. Neck reveals no JVD, carotid bruits, or thyromegaly. CHEST EXAMINATION: Trachea is central. Symmetrical expansion. Bibasilar crackles and no wheezing. Nonlabored breathing.. CARDIAC: Normal S1, S2 with no gallops. No murmurs ABDOMEN: Soft. Bowel sounds normal. No organomegaly. No abdominal bruits. Extremities: Bilateral lower extremity 3+ edema. No clubbing or cyanosis Neurologically awake, alert, oriented x3 with well-coordinated movements. No focal deficits noted Skin: No rash or skin lesions. Psychiatric: Coperative. Nonsuicidal Musculoskeletal: No joint swelling or deformity. Normal range of motion. - Labs CBC & Chem 7: 11/04/19 06:47 11/03/19 04:55 Labs: Abnormal Lab Results - Last 24 Hours (Table) 11/04/19 11/04/19 11/04/19 Range/Units 06:47 06:47 16:32 WBC 11.3 H (3.8-10.6) k/uL RBC 2.96 L (4.30-5.90) m/uL Hgb 9.2 L (13.0-17.5) gm/dL Hct 28.1 L (39.0-53.0) % RDW 16.1 H (11.5-15.5) % Neutrophils # 8.7 H (1.3-7.7) k/uL ESR 124 H (0-15) mm/hr POC Glucose (mg/dL) 117 H (75-99) mg/dL C-Reactive Protein 267.5 H (<10.0) mg/L 11/04/19 Range/Units 20:14 WBC (3.8-10.6) k/uL RBC (4.30-5.90) m/uL Hgb (13.0-17.5) gm/dL Hct (39.0-53.0) % RDW (11.5-15.5) % Neutrophils # (1.3-7.7) k/uL ESR (0-15) mm/hr POC Glucose (mg/dL) 160 H (75-99) mg/dL C-Reactive Protein (<10.0) mg/L Assessment and Plan Assessment: Right sided neck pain and upper arm pain likely due to advanced spondylitic changes in the lower cervical spine. Possible cervical radiculopathy Elevated CRP level without elevated WBC count or fever. Recent antibiotic course for possible sepsis at [facility] exact etiology unknown at this time. Recent upper extremity DVT. Currently on Eliquis Pulmonary interstitial infiltrates unchanged from previous admission in September 2019 Coronary artery disease with history of stent placement History of back surgery Chronic bilateral lower acuity swelling due to venous insufficiency. Chronic CHF with diastolic dysfunction Diabetes type 2 insulin-dependent Obstructive sleep apnea on CPAP at home Morbid obesity with BMI 36.0 Chronic hypoxic respiratory failure secondary to COPD History of TIAs History of nonsustained V. tach Osteoarthritis GERD Hyperlipidemia DVT prophylaxis patient is already on anticoagulation Plan: Patient will be continued on pain management with Percocet 10. Pain management service is following. Orthopedic surgery is on board. Currently being continued on antibiotics in the form of Zyvox as per recent antibiotic course from [facility]. Continue with insulin dosing and titrate as needed. ID and orthopedic surgery is following. Monitor CRP levels. Further recommendations based on the clinical course. Prognosis guarded with multiple medical problems and comorbid conditions. Time with Patient: Greater than 30
[2019-11-05] MEDS: oxyCODONE-APAP 10-325MG 1 EACH TAB PO PRN ×2 (02:38→07:44)
[2019-11-05 06:49] LABS: Glucose,Whole Blood 80 mg/dL (75-99)
[2019-11-05] MEDS: SYMBICORT 80-4.5 MCG INHALER INHALATION SCH ×2 (07:09→19:51)
[2019-11-05] MEDS: IPRATROPIUM-ALBUTEROL 3 ML NEB INHALATION PRN ×4 (07:09→19:51)
[2019-11-05 07:38] LABS: Albumin 2.7 g/dL (3.5-5.0); Calcium 8.3 mg/dL (8.4-10.2); Potassium 4.9 mmol/L (3.5-5.1); Total Bilirubin 0.8 mg/dL (0.2-1.3); Total Protein 5.4 g/dL (6.3-8.2)
[2019-11-05 07:39] LABS: Basophils # (A) 0.1 k/uL (0-0.2); Basophils % (A) 1 %; Eosinophils # (A) 0.2 k/uL (0-0.7); Eosinophils % (A) 1 %; HCT 24.8 % (39.0-53.0); HGB 8.1 gm/dL (13.0-17.5); Lymphocytes # (A) 1.4 k/uL (1.0-4.8); Lymphocytes % (A) 10 %; MCH 30.6 pg (25.0-35.0); MCHC 32.7 g/dL (31.0-37.0); MCV 93.5 fL (80.0-100.0); Mean Platelet Volume 9.2; Monocytes # (A) 1.2 k/uL (0-1.0); Monocytes % (A) 8 %; Neutrophils # (A) 11.4 k/uL (1.3-7.7); Neutrophils % (A) 79 %; Platelet Count 167 k/uL (150-450); RBC 2.66 m/uL (4.30-5.90); RDW 15.9 % (11.5-15.5); WBC 14.5 k/uL (3.8-10.6)
[2019-11-05] MEDS: METOPROLOL TARTRATE 25 MG TAB PO SCH ×2 (07:44→20:57)
[2019-11-05] MEDS: ATORVASTATIN 80 MG TAB PO SCH (07:44)
[2019-11-05] MEDS: FUROSEMIDE 10 MG/ML 2 ML VIAL IV SCH ×2 (07:45→20:58)
[2019-11-05] MEDS: POTASSIUM CHLORIDE ER 20 MEQ TAB.ER PO SCH ×2 (07:45→20:58)
[2019-11-05] MEDS: GABAPENTIN 100 MG CAP PO SCH ×3 (07:45→21:00)
[2019-11-05] MEDS: ASPIRIN 325 MG TAB PO SCH (07:45)
[2019-11-05] MEDS: APIXABAN 5 MG TAB PO SCH ×2 (07:45→20:58)
[2019-11-05] MEDS: INSULIN ASPART (NovoLOG) 100 UNIT/ML VIAL SQ SCH ×3 (07:46→17:53)
[2019-11-05] MEDS: SODIUM CHLORIDE 0.9% 1,000 ML IV SCH (07:47)
[2019-11-05 07:52] LABS: Glucose,Whole Blood 80 mg/dL (75-99)
[2019-11-05 10:33] LABS: Appearance,Urine Clear (Clear); Bilirubin,Urine Negative (Negative); Blood,Urine Negative (Negative); Color,Urine Yellow; Glucose,Urine (UA) Negative (Negative); Ketones,Urine Negative (Negative); Leukocyte Esterase,Urine Negative (Negative); Nitrite,Urine Negative (Negative); PH, Urine 5.5 (5.0-8.0); Protein,Urine Negative (Negative); Specific Gravity,Urine 1.013 (1.001-1.035); Urobilinogen,Urine <2.0 mg/dL (<2.0)
[2019-11-05 11:45] LABS: Glucose,Whole Blood 64 mg/dL (75-99)
[2019-11-05] MEDS ORDERED: KETOROLAC 15 MG/ML 1 ML VIAL IVP SCH (12:00)
[2019-11-05] MEDS ORDERED: DEXTROSE 50% SYRINGE 50 ML IVP STA (12:34)
[2019-11-05] MEDS: KETOROLAC 15 MG/ML 1 ML VIAL IVP PRN (12:50)
[2019-11-05] MEDS ORDERED: HALOPERIDOL LACTATE 5 MG/ML 1 ML VIAL IM ONE (13:27)
[2019-11-05 13:30] LABS: Glucose,Whole Blood 91 mg/dL (75-99)
[2019-11-05] MEDS ORDERED: ACETAMINOPHEN SUPPOSITORY 650 MG SUPP RECTAL STA (13:39)
[2019-11-05] MEDS: ACETAMINOPHEN TAB 325 MG TAB PO PRN (13:43)
[2019-11-05 14:28] LABS: Basophils # (A) 0.1 k/uL (0-0.2); Basophils % (A) 1 %; Eosinophils # (A) 0.1 k/uL (0-0.7); Eosinophils % (A) 1 %; HCT 24.7 % (39.0-53.0); Lymphocytes # (A) 0.8 k/uL (1.0-4.8); Lymphocytes % (A) 5 %; MCHC 32.4 g/dL (31.0-37.0); MCV 95.6 fL (80.0-100.0); Mean Platelet Volume 8.8; Monocytes # (A) 0.9 k/uL (0-1.0); Monocytes % (A) 6 %; Neutrophils # (A) 12.5 k/uL (1.3-7.7); Neutrophils % (A) 86 %; Platelet Count 156 k/uL (150-450); RBC 2.58 m/uL (4.30-5.90); RDW 15.9 % (11.5-15.5); WBC 14.5 k/uL (3.8-10.6)
[2019-11-05 14:35] LABS: Calcium 8.3 mg/dL (8.4-10.2)
[2019-11-05] MEDS ORDERED: CEFEPIME 2 GM in SODIUM CHLORIDE 0.9% 100 ML IVPB STA (15:38)
[2019-11-05] MEDS ORDERED: HALOPERIDOL LACTATE 5 MG/ML 1 ML VIAL IVP PRN (15:48)
--- NOTE | 2019-11-05 16:12 | MR ---
MRI CERVICAL SPINE: CLINICAL HISTORY: Intractable neck pain. Rule out discitis or abscess. TECHNIQUE: Multiplanar, multisequence imaging of the cervical spine is performed without and with IV contrast, 10 cc of gadolinium was given intravenously. COMPARISON: MRI cervical spine September 03, 2019. CT cervical spine 2 days ago. FINDINGS: Exam noted suboptimal as patient is heavily sedated and is thus unable to hold breath due t o motion. Sagittal images of the cervical spine show the craniocervical junction to remain within nor mal limits. The cervical and upper thoracic spinal cord is normal in caliber and signal. Reversal of normal cervical curvature is redemonstrated centered C5 level. Generalized AP canal diameter narrow ing is again seen. The vertebral body heights remain normal. Persistent [id number] disc space narrowing greatest anterior C4-C5 and C5-C6 levels where there is moderate to advanced anterior spur ring. Heterogeneous Modic type II endplate changes centered C5-C6 level. No suspicious edema or enhan cement in the disc or endplates noted. Axial images are essentially nondiagnostic due to extensive artifact. There is persistent left parace ntral disc protrusion effacing the anterior thecal sac at C7-T1 level IMPRESSION: Suboptimal study. No convincing evidence for focal discitis/osteomyelitis however.
[2019-11-05 16:45] LABS: Glucose,Whole Blood 68 mg/dL (75-99)
--- NOTE | 2019-11-05 16:51 | PN ---
PROGRESS NOTE DATE OF SERVICE: 11/05/2019 REASON FOR FOLLOWUP: Fever and question of cervical diskitis. INTERVAL HISTORY: The patient has been running a low-grade fever of 100.5 this morning with 99.9 this afternoon. The patient has been thrashing around in the bed and unable to provide any history. No vomiting or diarrhea has been reported by the nursing staff. He is scheduled for an MRI of the cervical spine this afternoon. PHYSICAL EXAMINATION: Blood pressure 134/63 with a pulse of 104, temperature 99.9. He is 92% on 4 L nasal cannula. General description is an elderly male, lying in bed in no distress. RESPIRATORY SYSTEM: Unlabored breathing, clear to auscultation anteriorly. HEART: S1, S2. Regular rate and rhythm. ABDOMEN: Soft, no tenderness. Legs did have 2+ swelling but no redness. Right arm did have swelling but no redness. LABS: Hemoglobin 8 with white count of 14.5, BUN of 15, creatinine 1.16. His blood culture has been negative so far. I did review the information being sent from [facility], still no cultures was sent, though documentation was suggestive of possible right upper extremity cellulitis that was treated with vancomycin and cefepime. DIAGNOSTIC IMPRESSION AND PLAN: Patient in the hospital with neck and right upper extremity pain. Did have significant degenerative disease in his spine. CT was not suspicious for any or concern for possible diskitis and MRI has been ordered. Will wait for it to be finalized. Patient currently does not have any other obvious focus of infection. In this patient CT angiogram of the chest was negative for PE and did not show any consolidation. The patient's UA is negative and no evidence of any cellulitis upper or lower extremity and abdomen is soft on clinical examination. This has been explained in detail to the who has been present at the bedside. We will keep the patient on Vancomycin and cefepime. Will wait for the workup to be completed. If the mental status changes persist, recommend obtaining neurology evaluation. MMODL / IJN: [id number] /
[2019-11-05] MEDS: DEXTROSE 5% IN WATER 1,000 ML IV SCH (17:52)
[2019-11-05 18:43] LABS: Glucose,Whole Blood 70 mg/dL (75-99)
[2019-11-05] MEDS: VANCOMYCIN 1,750 MG in SODIUM CHLORIDE 0.9% 500 ML 500 ML IVPB SCH (18:58)
[2019-11-05 19:36] LABS: Glucose,Whole Blood 73 mg/dL (75-99)
[2019-11-05] MEDS: INSULIN DETEMIR (LEVEMIR) 100 UNIT/ML SYR SQ SCH (20:49)
[2019-11-05] MEDS: PANTOPRAZOLE 40 MG TABLET PO SCH (20:58)
[2019-11-05] MEDS: TAMSULOSIN 0.4 MG CAP.ER.24H PO SCH (20:58)
[2019-11-05] MEDS: PRAMIPEXOLE 1 MG TAB PO SCH (22:59)
[2019-11-05] MEDS: CEFEPIME 2 GM in SODIUM CHLORIDE 0.9% 100 ML IVPB SCH (23:00)
[2019-11-06] MEDS: KETOROLAC 15 MG/ML 1 ML VIAL IVP PRN ×3 (04:10→23:23)
[2019-11-06 05:40] LABS: Glucose,Whole Blood 123 mg/dL (75-99)
[2019-11-06 06:23] LABS: Anisocytosis Slight; Basophils # (A) 0.1 k/uL (0-0.2); Basophils % (A) 1 %; Eosinophils # (A) 0.3 k/uL (0-0.7); Eosinophils % (A) 2 %; HCT 23.6 % (39.0-53.0); HGB 7.4 gm/dL (13.0-17.5); Lymphocytes # (A) 1.1 k/uL (1.0-4.8); Lymphocytes % (A) 8 %; MCH 30.1 pg (25.0-35.0); MCHC 31.6 g/dL (31.0-37.0); MCV 95.4 fL (80.0-100.0); Mean Platelet Volume 8.8; Monocytes # (A) 0.8 k/uL (0-1.0); Monocytes % (A) 6 %; Neutrophils # (A) 10.8 k/uL (1.3-7.7); Neutrophils % (A) 81 %; Platelet Count 154 k/uL (150-450); RBC 2.47 m/uL (4.30-5.90); RDW 16.1 % (11.5-15.5); WBC 13.3 k/uL (3.8-10.6)
[2019-11-06 06:31] LABS: Calcium 8.2 mg/dL (8.4-10.2); Potassium 4.2 mmol/L (3.5-5.1)
--- NOTE | 2019-11-06 07:02 | XR ---
EXAMINATION TYPE: XR chest 1V DATE OF EXAM: 11/06/2019 CLINICAL HISTORY: Difficulty breathing and CHF progress study. TECHNIQUE: Single AP portable upright view of the chest is obtained. COMPARISON: Chest x-ray from September 21, 2019. Most recent CT November 01, 2019 FINDINGS: There is chronic emphysematous and parenchymal change bilaterally without suspicious new f ocal airspace opacity, pleural effusion, or pneumothorax seen bilaterally. Cardiac silhouette size is stable and upper limits of normal. Metallic hardware from right shoulder surgery is partially imaged . IMPRESSION: Chronic changes without new suspicious acute pulmonary process.
[2019-11-06 07:05] LABS: C Reactive Protein 428.2 mg/L (<10.0)
[2019-11-06 07:34] LABS: T4, Free (Free Thyroxine) 1.08 ng/dL (0.78-2.19)
[2019-11-06 07:44] LABS: Glucose,Whole Blood 111 mg/dL (75-99)
[2019-11-06] MEDS: SYMBICORT 80-4.5 MCG INHALER INHALATION SCH ×2 (08:16→20:48)
[2019-11-06] MEDS: IPRATROPIUM-ALBUTEROL 3 ML NEB INHALATION PRN ×4 (08:16→20:48)
[2019-11-06] MEDS: INSULIN ASPART (NovoLOG) 100 UNIT/ML VIAL SQ SCH ×3 (08:34→17:56)
[2019-11-06] MEDS: ASPIRIN 325 MG TAB PO SCH (08:38)
[2019-11-06] MEDS: FUROSEMIDE 10 MG/ML 2 ML VIAL IV SCH ×2 (08:39→21:35)
[2019-11-06] MEDS: METOPROLOL TARTRATE 25 MG TAB PO SCH ×2 (08:39→21:35)
[2019-11-06] MEDS: APIXABAN 5 MG TAB PO SCH ×2 (08:39→21:35)
[2019-11-06] MEDS: ATORVASTATIN 80 MG TAB PO SCH (08:39)
[2019-11-06] MEDS: GABAPENTIN 100 MG CAP PO SCH ×3 (08:39→21:35)
[2019-11-06] MEDS: SODIUM CHLORIDE 0.9% 1,000 ML IV SCH (08:39)
[2019-11-06] MEDS: POTASSIUM CHLORIDE ER 20 MEQ TAB.ER PO SCH ×2 (08:39→21:35)
[2019-11-06] MEDS: VANCOMYCIN 1,750 MG in SODIUM CHLORIDE 0.9% 500 ML 500 ML IVPB SCH (10:00)
[2019-11-06 12:29] LABS: Glucose,Whole Blood 149 mg/dL (75-99)
[2019-11-06] MEDS: DEXTROSE 5% IN WATER 1,000 ML IV SCH (13:06)
[2019-11-06] MEDS: CEFEPIME 2 GM in SODIUM CHLORIDE 0.9% 100 ML IVPB SCH ×2 (15:45→22:55)
[2019-11-06 17:22] LABS: Glucose,Whole Blood 200 mg/dL (75-99)
[2019-11-06 20:03] LABS: Glucose,Whole Blood 154 mg/dL (75-99)
[2019-11-06] MEDS: TAMSULOSIN 0.4 MG CAP.ER.24H PO SCH (21:35)
[2019-11-06] MEDS: PANTOPRAZOLE 40 MG TABLET PO SCH (21:35)
[2019-11-06] MEDS: INSULIN DETEMIR (LEVEMIR) 100 UNIT/ML SYR SQ SCH (21:35)
[2019-11-06] MEDS: ACETAMINOPHEN TAB 325 MG TAB PO PRN (21:35)
[2019-11-06] MEDS: PRAMIPEXOLE 1 MG TAB PO SCH (22:55)
--- NOTE | 2019-11-06 23:22 | PN ---
PROGRESS NOTE DATE OF SERVICE: 11/06/2019 REASON FOR FOLLOWUP: Fever. INTERVAL HISTORY: Patient is currently afebrile. The patient has been breathing comfortably. The patient's neck pain has slightly decreased in intensity. Still has some discomfort to the right arm, but no worsening. No chest pain. No cough. No nausea, vomiting. No abdominal pain. No diarrhea. PHYSICAL EXAMINATION: Blood pressure 114/63 with a pulse of 121, temperature 98.6. He is 98% on 4 L nasal cannula. General description is an elderly male lying in bed in no distress. Respiratory system: Unlabored breathing, clear to auscultation anteriorly. Heart S1, S2. Regular rate and rhythm. ABDOMEN: Soft, no tenderness. Extremities: 1+ edema of feet. LABS: Hemoglobin 7.4, white count 13.2, BUN of 17, creatinine 1.10. Blood cultures has been negative. MRI of the cervical spine did not show any evidence of discitis. DIAGNOSTIC IMPRESSION AND PLAN: Patient with fever and leukocytosis, concern for sepsis in this patient with concern for possible cervical spine diskitis in view of severe pain to the neck area. However, MRI was not suggestive of diskitis. He did not have any obvious focus of infection. His blood culture has been negative. Chest x-ray was negative. We will obtain a CT of abdomen and pelvis with oral contrast to make sure no evidence of any abdominal source. For now continue vancomycin, cefepime to which the patient's fever has responded. The patient's was at the bedside. All her questions and concerns were answered. MMODL / IJN: [id number] /
[2019-11-06] MEDS: FAMOTIDINE 20 MG/2 ML VIAL IV SCH (23:23)
[2019-11-06] MEDS: ONDANSETRON 4 MG/2 ML VIAL IVP PRN (23:23)
[2019-11-06] MEDS: DEXTROSE 5%-0.45% NACL 1,000 ML IV SCH (23:23)
[2019-11-07 01:53] LABS: Glucose,Whole Blood 127 mg/dL (75-99)
[2019-11-07] MEDS: VANCOMYCIN 1,750 MG in SODIUM CHLORIDE 0.9% 500 ML 500 ML IVPB SCH ×2 (02:47→17:39)
[2019-11-07] MEDS: oxyCODONE-APAP 10-325MG 1 EACH TAB PO PRN ×3 (03:56→17:39)
[2019-11-07 06:11] LABS: Glucose,Whole Blood 95 mg/dL (75-99)
[2019-11-07 07:00] LABS: African American GFR (CKD) >90 (>60 ml/min/1.73 sqM); Non-African American GFR(CKD) 79 (>60 ml/min/1.73 sqM)
[2019-11-07] MEDS: SYMBICORT 80-4.5 MCG INHALER INHALATION SCH ×2 (07:44→21:15)
[2019-11-07] MEDS: IPRATROPIUM-ALBUTEROL 3 ML NEB INHALATION PRN ×4 (07:44→21:15)
[2019-11-07 07:49] LABS: Glucose,Whole Blood 81 mg/dL (75-99)
[2019-11-07] MEDS: INSULIN ASPART (NovoLOG) 100 UNIT/ML VIAL SQ SCH ×3 (08:07→17:22)
[2019-11-07] MEDS: GABAPENTIN 100 MG CAP PO SCH ×3 (08:15→21:13)
[2019-11-07] MEDS: FUROSEMIDE 10 MG/ML 2 ML VIAL IV SCH ×2 (08:15→21:13)
[2019-11-07] MEDS: IOPAMIDOL CONTRAST (ORAL USE) VIAL PO PRN ×2 (08:15→09:21)
[2019-11-07] MEDS: ASPIRIN 325 MG TAB PO SCH (08:15)
[2019-11-07] MEDS: FAMOTIDINE 20 MG/2 ML VIAL IV SCH ×2 (08:15→21:13)
[2019-11-07] MEDS: METOPROLOL TARTRATE 25 MG TAB PO SCH ×2 (08:15→21:13)
[2019-11-07] MEDS: APIXABAN 5 MG TAB PO SCH ×2 (08:15→21:13)
[2019-11-07] MEDS: POTASSIUM CHLORIDE ER 20 MEQ TAB.ER PO SCH ×2 (08:15→21:13)
[2019-11-07] MEDS: ATORVASTATIN 80 MG TAB PO SCH (08:15)
--- NOTE | 2019-11-07 09:22 | P.PN ---
Progress Note - Text Progress Note Date: 11/07/19 The patient is seen and examined at bedside. He feels that his pain in his neck and arms are improving since being in the hospital. He has had long history of issues with his cervical spine. He is being followed closely with infectious disease. His MRI does not show obvious signs of discitis or infection at his cervical spine. It does show evidence of significant disc degeneration and evidence of stenosis C4 5 C5 6 C6 7. This has been stable for him but can be a significant cause of his pain and upper extremity symptoms. He does not have acute neurologic decline at this point. The patient has multiple medical issues and is continuing his workup in regards to his infectious process. He does have significant changes at his cervical spine with mechanical stenosis that contributes to his pain and upper extremity symptoms. However given his medical condition and his current infectious process he would not be a good candidate for any surgical intervention or even interventional pain management at this point. He is not having acute neurologic decline to necessitate emergent surgical intervention for surgical spine and should continue with conservative treatment for now.
[2019-11-07] MEDS: SODIUM CHLORIDE 0.9% 1,000 ML IV SCH (09:35)
--- NOTE | 2019-11-07 10:17 | CT ---
EXAMINATION TYPE: CT abdomen pelvis wo con DATE OF EXAM: 11/07/2019 COMPARISON: 09/09/2016. Also, CT chest 11/03/2019 HISTORY: 69-year-old male with fever CT DLP: 1120.4 mGycm. Automated exposure control for dose reduction was used. TECHNIQUE: Contiguous axial scanning of the abdomen and pelvis without IV contrast. Coronal and sagit quinn reconstructions performed. FINDINGS: As compared to 11/03/2019, new small pleural effusions. Patchy groundglass in the lower lungs. Heart upper limits of normal in size. Coronary artery calcifications. No pericardial effusion. Contrast column within the visualized lower thoracic esophagus. Noncontrast appearance of the liver shows enlargement of 21.2 cm. Gallbladder, adrenal glands, spleen, and pancreas show no gross abnormality by noncontrast CT. Kidneys show no hydronephrosis perinephric stranding and edema. There is also generalized anasarca ch shanelle. Small fatty umbilical hernia. Moderate atherosclerotic calcifications abdominal aorta and iliac arter ies. No dilated small bowel or free air. Confluent strandy edema along the lower retroperitoneum tracking to the bilateral adnexa and presacra l region. Fluid overload and anasarca may be the etiology. Left-sided clonic diverticulosis, greatest in the mid sigmoid colon. Finch catheter is in place. Circumferential bladder wall thickening. Nondependent air within the lume n of the bladder likely due to instrumentation. No pelvic lymph adenopathy. Bones: Degenerative changes in the hips. Degenerative disc disease L4-L5 and L5-S1 facet arthropathy noted to lower lumbar spine. IMPRESSION: 1. Correlate for fluid overload state given new anasarca change. There are also new small effusions and patchy groundglass in the lower lungs, suggesting pulmonary vascular congestion. 2. Confluent strandy density in the lower retroperitoneum tracking down into the adnexa and presacra l region. The source is unclear. Possibly related to fluid overload state. 3. Alternatively, inflammation may be tracking up from the bladder given circumferential wall thicke derrick. Correlate for possible cystitis. A Finch catheter is in place. 4. Contrast within the visualized lower esophagus suggests either gastroesophageal reflux or esophag eal dysmotility. 5. Mild left-sided colonic diverticulosis without convincing evidence for acute diverticulitis.
--- NOTE | 2019-11-07 12:30 | P.PN ---
Subjective Progress Note Date: 11/05/19 Principal diagnosis: neck pain and Shoulder pain Patient is a 69-year-old male with a known history of chronic neck pain, coronary artery disease history of stent placement, chronic CHF with diastolic dysfunction, hypertension, hyperlipidemia, diabetes type 2 insulin-dependent m orbid obesity and obstructive sleep apnea who was recently admitted to [facility] with generalized body aches. Patient was also recently discharged from [facility] and was treated for possible sepsis with unknown etiology. Patient was discharged on IV antibiotics and change to oral antibiotics in the form of Zyvox and due to complication of DVT in the left upper extremity. Patient is currently on Eliquis twice daily. Patient was recently discharged from the hospital on 09/22/2019 with a course of antibiotics in the form of Levaquin due to diffuse interstitial infiltrates. Patient presents to ER with complaints of neck pain mainly on the right side radiating down his shoulder and right arm. Patient is unable to move his right completely. Patient also complaining of right arm numbness as well. Denied any complaints of fever or chills. No chest pain or worsening shortness of breath. Patient does have chronic bilateral lower extremity swelling currently on Lasix at home by [facility]. CT angiogram of the chest showed no evidence of pulmonary embolism. There is s ome patchy atelectasis atelectasis in the lung base not significantly different from present exam. No suspicious pulmonary mass. Stable mild posterior pleural scarring. CT cervical spine showed redemonstrated advanced spondylitic changes especially in the mid to lower cervical spine. Degenerative grade 1 anterolisthesis at C4, C5 and focal kyphotic deformity. Variable neural foraminal stenosis. Apparent thickening of the prevertebral soft tissue seems to correspond to retropharyngeal course of the internal carotid arteries rather than effusion or edema. Laboratory data showed WBC 9.8, hemoglobin 9.6 and platelets 249 D-dimer is 2.33 CT PE negative. Sodium 135, potassium 4.9, chloride 100, BUN 15 and creatinine 1.09 Blood sugar was 61 on admission CRP is 198.6 Albumin 3.3 patient was afebrile on but tachycardic with heart rate around 115 11/04/2019 Patient is currently sitting in the chair but still complaining of neck pain and is right-hand clenched towards the chest. Patient does not have any fever or chills this morning. No nausea vomiting or abdominal pain. No diarrhea. Patient is refusing IV Lasix saying that he was told that it is not good for his kidneys. Laboratory data showed WBC 11.3, hemoglobin 9.1 platelets 214 CRP level is 267 today. Currently on antibiotics in the form of Zyvox. ID is following. Awaiting records from the [facility]. 11/05/2019 Patient is still complaining of neck pain and pain down to the shoulders bilaterally. Patient was agitated and confused last night. Also developed fever. Zyvox was changed to vancomycin. MRI of the spine was ordered and ID is following. Patient was febrile last night. Follow up on cultures. Otherwise patient is being continued on an management. Neck orthopedic surgery and ID is following. Discussed with his at bedside in detail. Aberrantly patient was treated for possible sepsis secondary to bilateral lower activity cellulitis and was started on antibiotics with PICC line. Patient developed DVT of the right upper extremity and antibiotics were changed to Zyvox. Patient was started on Eliquis for anti-coagulation at [facility]. Next and current medications reviewed. Objective - Vital Signs Vital signs: Vital Signs Temp 100.2 F H 11/05/19 16:00 Pulse 102 H 11/05/19 20:05 Resp 20 11/05/19 16:00 BP 107/56 11/05/19 16:00 Pulse Ox 95 11/05/19 16:00 Intake & Output 11/05/19 11/05/19 11/06/19 06:59 18:59 06:59 Intake Total 200 Output Total 500 300 Balance -300 -300 Intake: Oral 200 Output: Urine 500 300 Other: Voiding Method Toilet Indwelling Catheter # Voids 1 - Exam PHYSICAL EXAMINATION: Patient is lying in the bed comfortably, He appears to be in distress due to pain., awake alert and oriented.. HEENT: Normocephalic. Neck is supple. Pupils reactive. Nostrils clear. Oral cavity is moist. Ears reveal no drainage. Neck reveals no JVD, carotid bruits, or thyromegaly. CHEST EXAMINATION: Trachea is central. Symmetrical expansion. Bibasilar crackles and no wheezing. Nonlabored breathing.. CARDIAC: Normal S1, S2 with no gallops. No murmurs ABDOMEN: Soft. Bowel sounds normal. No organomegaly. No abdominal bruits. Extremities: Bilateral lower extremity 3+ edema. No clubbing or cyanosis Neurologically awake, alert, oriented x3 with well-coordinated movements. No focal deficits noted Skin: No rash or skin lesions. Psychiatric: Coperative. Nonsuicidal Musculoskeletal: No joint swelling or deformity. Normal range of motion. - Labs CBC & Chem 7: 11/06/19 06:03 11/07/19 06:26 Labs: Abnormal Lab Results - Last 24 Hours (Table) 11/05/19 11/05/19 11/05/19 Range/Units 06:56 06:56 11:37 WBC 14.5 H (3.8-10.6) k/uL RBC 2.66 L (4.30-5.90) m/uL Hgb 8.1 L (13.0-17.5) gm/dL Hct 24.8 L (39.0-53.0) % RDW 15.9 H (11.5-15.5) % Neutrophils # 11.4 H (1.3-7.7) k/uL Lymphocytes # (1.0-4.8) k/uL Monocytes # 1.2 H (0-1.0) k/uL Sodium 134 L (137-145) mmol/L Glucose 61 L (74-99) mg/dL POC Glucose (mg/dL) 64 L (75-99) mg/dL Plasma Lactic Acid Teo (0.7-2.0) mmol/L Calcium 8.3 L (8.4-10.2) mg/dL Total Protein 5.4 L (6.3-8.2) g/dL Albumin 2.7 L (3.5-5.0) g/dL 11/05/19 11/05/19 11/05/19 Range/Units 14:05 14:05 14:05 WBC 14.5 H (3.8-10.6) k/uL RBC 2.58 L (4.30-5.90) m/uL Hgb 8.0 L (13.0-17.5) gm/dL Hct 24.7 L (39.0-53.0) % RDW 15.9 H (11.5-15.5) % Neutrophils # 12.5 H (1.3-7.7) k/uL Lymphocytes # 0.8 L (1.0-4.8) k/uL Monocytes # (0-1.0) k/uL Sodium 134 L (137-145) mmol/L Glucose (74-99) mg/dL POC Glucose (mg/dL) (75-99) mg/dL Plasma Lactic Acid Teo 2.7 H* (0.7-2.0) mmol/L Calcium 8.3 L (8.4-10.2) mg/dL Total Protein (6.3-8.2) g/dL Albumin (3.5-5.0) g/dL 11/05/19 11/05/19 11/05/19 Range/Units 16:41 18:41 19:34 WBC (3.8-10.6) k/uL RBC (4.30-5.90) m/uL Hgb (13.0-17.5) gm/dL Hct (39.0-53.0) % RDW (11.5-15.5) % Neutrophils # (1.3-7.7) k/uL Lymphocytes # (1.0-4.8) k/uL Monocytes # (0-1.0) k/uL Sodium (137-145) mmol/L Glucose (74-99) mg/dL POC Glucose (mg/dL) 68 L 70 L 73 L (75-99) mg/dL Plasma Lactic Acid Teo (0.7-2.0) mmol/L Calcium (8.4-10.2) mg/dL Total Protein (6.3-8.2) g/dL Albumin (3.5-5.0) g/dL Microbiology - Last 24 Hours (Table) 11/04/19 06:47 Blood Culture - Preliminary Blood No Growth after 24 hours 11/03/19 22:27 Blood Culture - Preliminary Blood No Growth after 24 hours Assessment and Plan Assessment: Right sided neck pain and upper arm pain likely due to advanced spondylitic changes in the lower cervical spine. Fever, elevated CRP level and possible cervical discitis versus osteomyelitis. MRI of the C spine was ordered. Elevated CRP level without elevated WBC count or fever. Recent antibiotic course for possible sepsis at [facility] exact etiology unknown at this time. Recent upper extremity DVT. Currently on Eliquis Pulmonary interstitial infiltrates unchanged from previous admission in September Coronary artery disease with history of stent placement History of back surgery Chronic bilateral lower acuity swelling due to venous insufficiency. Chronic CHF with diastolic dysfunction Diabetes type 2 insulin-dependent Obstructive sleep apnea on CPAP at home Morbid obesity with BMI 36.0 Chronic hypoxic respiratory failure secondary to COPD History of TIAs History of nonsustained V. tach Osteoarthritis GERD Hyperlipidemia DVT prophylaxis patient is already on anticoagulation Plan: Patient will be continued on vancomycin. Patient will be continued on pain management with Percocet 10. Pain management service is following. Orthopedic surgery is on board. Currently on antibiotics in the form of Zyvox as per recent antibiotic course from [facility]. Continue with insulin dosing and titrate as needed. ID and orthopedic surgery is following. Monitor CRP levels. Further recomm endations based on the clinical course. Prognosis guarded with multiple medical problems and comorbid conditions. Time with Patient: Greater than 30
--- NOTE | 2019-11-07 12:35 | P.PN ---
Subjective Progress Note Date: 11/06/19 Principal diagnosis: neck pain and Shoulder pain Patient is a 69-year-old male with a known history of chronic neck pain, coronary artery disease history of stent placement, chronic CHF with diastolic dysfunction, hypertension, hyperlipidemia, diabetes type 2 insulin-dependent m orbid obesity and obstructive sleep apnea who was recently admitted to [facility] with generalized body aches. Patient was also recently discharged from [facility] and was treated for possible sepsis with unknown etiology. Patient was discharged on IV antibiotics and change to oral antibiotics in the form of Zyvox and due to complication of DVT in the left upper extremity. Patient is currently on Eliquis twice daily. Patient was recently discharged from the hospital on 09/22/2019 with a course of antibiotics in the form of Levaquin due to diffuse interstitial infiltrates. Patient presents to ER with complaints of neck pain mainly on the right side radiating down his shoulder and right arm. Patient is unable to move his right completely. Patient also complaining of right arm numbness as well. Denied any complaints of fever or chills. No chest pain or worsening shortness of breath. Patient does have chronic bilateral lower extremity swelling currently on Lasix at home by [facility]. CT angiogram of the chest showed no evidence of pulmonary embolism. There is s ome patchy atelectasis atelectasis in the lung base not significantly different from present exam. No suspicious pulmonary mass. Stable mild posterior pleural scarring. CT cervical spine showed redemonstrated advanced spondylitic changes especially in the mid to lower cervical spine. Degenerative grade 1 anterolisthesis at C4, C5 and focal kyphotic deformity. Variable neural foraminal stenosis. Apparent thickening of the prevertebral soft tissue seems to correspond to retropharyngeal course of the internal carotid arteries rather than effusion or edema. Laboratory data showed WBC 9.8, hemoglobin 9.6 and platelets 249 D-dimer is 2.[address] CT PE negative. Sodium 135, potassium 4.9, chloride 100, BUN 15 and creatinine 1.09 Blood sugar was 61 on admission CRP is 198.6 Albumin 3.3 patient was afebrile on but tachycardic with heart rate around 115 11/04/2019 Patient is currently sitting in the chair but still complaining of neck pain and is right-hand clenched towards the chest. Patient does not have any fever or chills this morning. No nausea vomiting or abdominal pain. No diarrhea. Patient is refusing IV Lasix saying that he was told that it is not good for his kidneys. Laboratory data showed WBC 11.3, hemoglobin 9.1 platelets 214 CRP level is 267 today. Currently on antibiotics in the form of Zyvox. ID is following. Awaiting records from the [facility]. 11/05/2019 Patient is still complaining of neck pain and pain down to the shoulders bilaterally. Patient was agitated and confused last night. Also developed fever. Zyvox was changed to vancomycin. MRI of the spine was ordered and ID is following. Patient was febrile last night. Follow up on cultures. Otherwise patient is being continued on an management. Neck orthopedic surgery and ID is following. Discussed with his at bedside in detail. Aberrantly patient was treated for possible sepsis secondary to bilateral lower activity cellulitis and was started on antibiotics with PICC line. Patient developed DVT of the right upper extremity and antibiotics were changed to Zyvox. Patient was started on Eliquis for anti-coagulation at [facility]. 11/05/2016 Patient is currently lying in the bed comfortable. Still complaining of neck pain and shoulder pains. Patient has been afebrile now. MRI of the cervical spine showed no evidence of discitis or osteoarthritis. No other evidence of septic foci was noted this time. Patient is currently on vancomycin and was started on cefepime. Follow up on blood cultures. ID is following. CT of abdomen pelvis was ordered. Patient otherwise denied any complaints of chest pain or shortness of breath. No cough or sputum production. Patient did have nausea. No episodes of vomiting. No diarrhea. current medications reviewed. Objective - Vital Signs Vital signs: Vital Signs Temp 98.6 F 11/06/19 17:00 Pulse 110 H 11/06/19 17:00 Resp 18 11/06/19 17:00 BP 114/63 11/06/19 17:00 Pulse Ox 98 11/06/19 17:00 Intake & Output 11/06/19 11/06/19 11/07/19 06:59 18:59 06:59 Intake Total 708 Output Total 625 1050 Balance -744 -342 Weight 107 kg Intake: Oral 708 Output: Urine 625 1050 Other: Voiding Method Indwelling Catheter Indwelling Catheter # Bowel Movements 1 - Exam PHYSICAL EXAMINATION: Patient is lying in the bed comfortably, He appears to be in distress due to pain., awake alert and oriented.. HEENT: Normocephalic. Neck is supple. Pupils reactive. Nostrils clear. Oral cavity is moist. Ears reveal no drainage. Neck reveals no JVD, carotid bruits, or thyromegaly. CHEST EXAMINATION: Trachea is central. Symmetrical expansion. Bibasilar crackles and no wheezing. Nonlabored breathing.. CARDIAC: Normal S1, S2 with no gallops. No murmurs ABDOMEN: Soft. Bowel sounds normal. No organomegaly. No abdominal bruits. Extremities: Bilateral lower extremity 3+ edema. No clubbing or cyanosis Neurologically awake, alert, oriented x3 with well-coordinated movements. No focal deficits noted Skin: No rash or skin lesions. Psychiatric: Coperative. Nonsuicidal Musculoskeletal: No joint swelling or deformity. Normal range of motion. - Labs CBC & Chem 7: 11/06/19 06:03 11/07/19 06:26 Labs: Abnormal Lab Results - Last 24 Hours (Table) 11/06/19 11/06/19 11/06/19 Range/Units 05:38 06:03 06:03 WBC 13.3 H (3.8-10.6) k/uL RBC 2.47 L (4.30-5.90) m/uL Hgb 7.4 L (13.0-17.5) gm/dL Hct 23.6 L (39.0-53.0) % RDW 16.1 H (11.5-15.5) % Neutrophils # 10.8 H (1.3-7.7) k/uL Sodium 132 L (137-145) mmol/L Glucose 100 H (74-99) mg/dL POC Glucose (mg/dL) 123 H (75-99) mg/dL Calcium 8.2 L (8.4-10.2) mg/dL C-Reactive Protein 428.2 H (<10.0) mg/L TSH 5.110 H (0.465-4.680) mIU/L 11/06/19 11/06/19 11/06/19 Range/Units 07:43 12:27 17:20 WBC (3.8-10.6) k/uL RBC (4.30-5.90) m/uL Hgb (13.0-17.5) gm/dL Hct (39.0-53.0) % RDW (11.5-15.5) % Neutrophils # (1.3-7.7) k/uL Sodium (137-145) mmol/L Glucose (74-99) mg/dL POC Glucose (mg/dL) 111 H 149 H 200 H (75-99) mg/dL Calcium (8.4-10.2) mg/dL C-Reactive Protein (<10.0) mg/L TSH (0.465-4.680) mIU/L 11/06/19 Range/Units 20:01 WBC (3.8-10.6) k/uL RBC (4.30-5.90) m/uL Hgb (13.0-17.5) gm/dL Hct (39.0-53.0) % RDW (11.5-15.5) % Neutrophils # (1.3-7.7) k/uL Sodium (137-145) mmol/L Glucose (74-99) mg/dL POC Glucose (mg/dL) 154 H (75-99) mg/dL Calcium (8.4-10.2) mg/dL C-Reactive Protein (<10.0) mg/L TSH (0.465-4.680) mIU/L Microbiology - Last 24 Hours (Table) 11/04/19 06:47 Blood Culture - Preliminary Blood No Growth after 48 hours 11/03/19 22:27 Blood Culture - Preliminary Blood No Growth after 48 hours 11/04/19 22:26 Blood Culture - Preliminary Blood No Growth after 24 hours Assessment and Plan Assessment: Right sided neck pain and upper arm pain likely due to advanced spondylitic changes in the lower cervical spine. Fever, elevated CRP level and possible cervical discitis versus osteomyelitis. MRI of the C spine is negative . Elevated CRP level Recent antibiotic course for possible sepsis at [facility] exact etiology unknown at this time. Recent upper extremity DVT. Currently on Eliquis Pulmonary interstitial infiltrates unchanged from previous admission in September 2019 Coronary artery disease with history of stent placement History of back surgery Chronic bilateral lower acuity swelling due to venous insufficiency. Chronic CHF with diastolic dysfunction Diabetes type 2 insulin-dependent Obstructive sleep apnea on CPAP at home Morbid obesity with BMI 36.0 Chronic hypoxic respiratory failure secondary to COPD History of TIAs History of nonsustained V. tach Osteoarthritis GERD Hyperlipidemia DVT prophylaxis patient is already on anticoagulation Plan: Patient will be continued on vancomycin. Added cefepime. Patient will be continued on pain management with Percocet 10. Pain management service is following. Orthopedic surgery is on board. Currently was on antibiotics in the form of Zyvox as per recent antibiotic course from [facility]. Continue with insulin dosing and titrate as needed. ID and orthopedic surgery is following. Monitor CRP levels. Further recommendations based on the clinical course. Prognosis guarded with multiple medical problems and comorbid conditions. Time with Patient: Greater than 30
[2019-11-07 12:36] LABS: Glucose,Whole Blood 123 mg/dL (75-99)
[2019-11-07] MEDS: CEFEPIME 2 GM in SODIUM CHLORIDE 0.9% 100 ML IVPB SCH ×2 (12:50→23:37)
[2019-11-07] MEDS: ONDANSETRON 4 MG/2 ML VIAL IVP PRN (12:50)
[2019-11-07 13:04] LABS: Basophils # (A) 0.1 k/uL (0-0.2); Basophils % (A) 0 %; Eosinophils # (A) 0.7 k/uL (0-0.7); Eosinophils % (A) 6 %; HCT 23.2 % (39.0-53.0); HGB 7.3 gm/dL (13.0-17.5); Hypochromasia Slight; Lymphocytes # (A) 0.8 k/uL (1.0-4.8); Lymphocytes % (A) 6 %; MCH 30.8 pg (25.0-35.0); MCHC 31.6 g/dL (31.0-37.0); MCV 97.3 fL (80.0-100.0); Mean Platelet Volume 10.2; Monocytes % (A) 7 %; Neutrophils # (A) 10.7 k/uL (1.3-7.7); Neutrophils % (A) 80 %; Platelet Count 143 k/uL (150-450); RBC 2.38 m/uL (4.30-5.90); RDW 15.9 % (11.5-15.5); WBC 13.5 k/uL (3.8-10.6)
[2019-11-07] MEDS: KETOROLAC 15 MG/ML 1 ML VIAL IVP PRN ×2 (14:59→22:31)
[2019-11-07] MEDS ORDERED: VANCOMYCIN TROUGH DUE 1 EACH MISC MISCELLANE ONE (17:00)
[2019-11-07 17:15] LABS: Glucose,Whole Blood 127 mg/dL (75-99)
[2019-11-07] MEDS ORDERED: METOCLOPRAMIDE 5 MG/ML 2 ML VIAL IVP STA (17:45)
[2019-11-07 20:36] LABS: Glucose,Whole Blood 115 mg/dL (75-99)
[2019-11-07] MEDS: INSULIN DETEMIR (LEVEMIR) 100 UNIT/ML SYR SQ SCH (20:41)
[2019-11-07] MEDS: TAMSULOSIN 0.4 MG CAP.ER.24H PO SCH (21:13)
[2019-11-07] MEDS: PANTOPRAZOLE 40 MG TABLET PO SCH (21:13)
[2019-11-07] MEDS: PRAMIPEXOLE 1 MG TAB PO SCH (21:16)
[2019-11-07] MEDS: DEXTROSE 5%-0.45% NACL 1,000 ML IV SCH (21:20)
--- NOTE | 2019-11-07 23:31 | PN ---
PROGRESS NOTE DATE OF SERVICE: 11/07/2019 REASON FOR FOLLOWUP: Fever and a question of retroperitoneal . INTERVAL HISTORY: The patient is currently afebrile, has been breathing comfortably. Denies having any chest pain. No shortness of breath or cough. Has been complaining of nausea and vomiting today. No abdominal pain, no diarrhea. PHYSICAL EXAMINATION: Blood pressure 125/57 with the pulse of 100, temperature 97.8. He is 96% on 4 L nasal cannula. General description is an elderly male lying in bed in no distress. RESPIRATORY SYSTEM: Unlabored breathing, clear to auscultation anteriorly. HEART: S1, S2. Regular rate and rhythm. ABDOMEN: Soft, no tenderness. No guarding or rigidity. LABS: Hemoglobin 7.3, white count of 13.5, creatinine 0.98. The patient did have CT of abdomen and pelvis completed this morning which did show possible fluid overload and strandy density in the lower retroperitoneum tracking down to the adnexa and the presacral region, source is unclear. DIAGNOSTIC IMPRESSION AND PLAN: Patient with a fever with concern for possible retroperitoneal source of this infection. CT will be reviewed with radiologist. The patient's fever responded to cefepime and the vancomycin will be continued. Will repeat the inflammatory markers and sedimentation rate tomorrow. Review the CT with the radiologist tomorrow and monitor. Continue current antibiotics. Family at the bedside. Their questions and concerns were answered in layman's terms. MMODL / IJN: [id number] /
--- NOTE | 2019-11-08 00:02 | P.PN ---
Subjective Progress Note Date: 11/07/19 Principal diagnosis: neck pain and Shoulder pain Patient is a 69-year-old male with a known history of chronic neck pain, coronary artery disease history of stent placement, chronic CHF with diastolic dysfunction, hypertension, hyperlipidemia, diabetes type 2 insulin-dependent m orbid obesity and obstructive sleep apnea who was recently admitted to [facility] with generalized body aches. Patient was also recently discharged from [facility] and was treated for possible sepsis with unknown etiology. Patient was discharged on IV antibiotics and change to oral antibiotics in the form of Zyvox and due to complication of DVT in the left upper extremity. Patient is currently on Eliquis twice daily. Patient was recently discharged from the hospital on 09/22/2019 with a course of antibiotics in the form of Levaquin due to diffuse interstitial infiltrates. Patient presents to ER with complaints of neck pain mainly on the right side radiating down his shoulder and right arm. Patient is unable to move his right completely. Patient also complaining of right arm numbness as well. Denied any complaints of fever or chills. No chest pain or worsening shortness of breath. Patient does have chronic bilateral lower extremity swelling currently on Lasix at home by [place]. CT angiogram of the chest showed no evidence of pulmonary embolism. There is s ome patchy atelectasis atelectasis in the lung base not significantly different from present exam. No suspicious pulmonary mass. Stable mild posterior pleural scarring. CT cervical spine showed redemonstrated advanced spondylitic changes especially in the mid to lower cervical spine. Degenerative grade 1 anterolisthesis at C4, C5 and focal kyphotic deformity. Variable neural foraminal stenosis. Apparent thickening of the prevertebral soft tissue seems to correspond to retropharyngeal course of the internal carotid arteries rather than effusion or edema. Laboratory data showed WBC 9.8, hemoglobin 9.6 and platelets 249 D-dimer is 2.33 CT PE negative. Sodium 135, potassium 4.9, chloride 100, BUN 15 and creatinine 1.09 Blood sugar was 61 on admission CRP is 198.6 Albumin 3.3 patient was afebrile on but tachycardic with heart rate around 115 11/04/2019 Patient is currently sitting in the chair but still complaining of neck pain and is right-hand clenched towards the chest. Patient does not have any fever or chills this morning. No nausea vomiting or abdominal pain. No diarrhea. Patient is refusing IV Lasix saying that he was told that it is not good for his kidneys. Laboratory data showed WBC 11.3, hemoglobin 9.1 platelets 214 CRP level is 267 today. Currently on antibiotics in the form of Zyvox. ID is following. Awaiting records from the [facility]. 11/05/2019 Patient is still complaining of neck pain and pain down to the shoulders bilaterally. Patient was agitated and confused last night. Also developed fever. Zyvox was changed to vancomycin. MRI of the spine was ordered and ID is following. Patient was febrile last night. Follow up on cultures. Otherwise patient is being continued on an management. Neck orthopedic surgery and ID is following. Discussed with his at bedside in detail. Aberrantly patient was treated for possible sepsis secondary to bilateral lower activity cellulitis and was started on antibiotics with PICC line. Patient developed DVT of the right upper extremity and antibiotics were changed to Zyvox. Patient was started on Eliquis for anti-coagulation at [facility]. 11/05/2016 Patient is currently lying in the bed comfortable. Still complaining of neck pain and shoulder pains. Patient has been afebrile now. MRI of the cervical spine showed no evidence of discitis or osteoarthritis. No other evidence of septic foci was noted this time. Patient is currently on vancomycin and was started on cefepime. Follow up on blood cultures. ID is following. CT of abdomen pelvis was ordered. Patient otherwise denied any complaints of chest pain or shortness of breath. No cough or sputum production. Patient did have nausea. No episodes of vomiting. No diarrhea. 11/06/2017 Patient was initially admitted to the hospital with intractable neck pain down to the bilateral shoulders. MRI was done to rule out discitis and osteomyelitis. Negative at this time. Patient was febrile and leukocytosis with WBC count 13.5. CT of the abdomen pelvis was done to to evaluate for possible source of i nfection. ID is following. Patient is currently lying in the bed comfortably. Neck pain is better. Otherwise patient has been having nausea vomiting and abdominal discomfort mainly in the epigastric region. Laboratory data showed WBC 13.5, hemoglobin 7.3 and platelets 143. Discussed with his at bedside in detail. Orthopedic surgery and ID and pain management service is following. Currently maintained on antibiotics in the form of vancomycin and cefepime. current medications reviewed. Objective - Vital Signs Vital signs: Vital Signs Temp 97.8 F 11/07/19 16:00 Pulse 100 11/07/19 16:00 Resp 18 11/07/19 16:00 BP 125/57 11/07/19 16:00 Pulse Ox 96 11/07/19 16:00 Intake & Output 11/06/19 11/07/19 11/07/19 18:59 06:59 18:59 Intake Total 708 Output Total 0222 268 6200 Balance -342 -275 -6996 Weight 106 kg Intake: Oral 708 Output: Urine 5599 569 7957 Other: Voiding Method Indwelling Catheter Indwelling Catheter Indwelling Catheter # Bowel Movements 1 - Exam PHYSICAL EXAMINATION: Patient is lying in the bed comfortably, He appears to be in distress due to pain., awake alert and oriented.. HEENT: Normocephalic. Neck is supple. Pupils reactive. Nostrils clear. Oral cavity is moist. Ears reveal no drainage. Neck reveals no JVD, carotid bruits, or thyromegaly. CHEST EXAMINATION: Trachea is central. Symmetrical expansion. Bibasilar crackles and no wheezing. Nonlabored breathing.. CARDIAC: Normal S1, S2 with no gallops. No murmurs ABDOMEN: Soft. Bowel sounds normal. No organomegaly. No abdominal bruits. Extremities: Bilateral lower extremity 3+ edema. No clubbing or cyanosis Neurologically awake, alert, oriented x3 with well-coordinated movements. No focal deficits noted Skin: No rash or skin lesions. Psychiatric: Coperative. Nonsuicidal Musculoskeletal: No joint swelling or deformity. Normal range of motion. - Labs CBC & Chem 7: 11/07/19 06:26 11/07/19 06:26 Labs: Abnormal Lab Results - Last 24 Hours (Table) 11/06/19 11/06/19 11/07/19 Range/Units 17:20 20:01 01:51 WBC (3.8-10.6) k/uL RBC (4.30-5.90) m/uL Hgb (13.0-17.5) gm/dL Hct (39.0-53.0) % RDW (11.5-15.5) % Plt Count (150-450) k/uL Neutrophils # (1.3-7.7) k/uL Lymphocytes # (1.0-4.8) k/uL POC Glucose (mg/dL) 200 H 154 H 127 H (75-99) mg/dL 11/07/19 11/07/19 Range/Units 06:26 12:35 WBC 13.5 H (3.8-10.6) k/uL RBC 2.38 L (4.30-5.90) m/uL Hgb 7.3 L (13.0-17.5) gm/dL Hct 23.2 L (39.0-53.0) % RDW 15.9 H (11.5-15.5) % Plt Count 143 L (150-450) k/uL Neutrophils # 10.7 H (1.3-7.7) k/uL Lymphocytes # 0.8 L (1.0-4.8) k/uL POC Glucose (mg/dL) 123 H (75-99) mg/dL Microbiology - Last 24 Hours (Table) 11/04/19 06:47 Blood Culture - Preliminary Blood No Growth after 72 hours 11/03/19 22:27 Blood Culture - Preliminary Blood No Growth after 72 hours 11/04/19 22:26 Blood Culture - Preliminary Blood No Growth after 48 hours Assessment and Plan Assessment: Right sided neck pain and upper arm pain likely due to advanced spondylitic changes in the lower cervical spine. improving now. Fever, elevated CRP level and possible cervical discitis versus osteomyelitis. MRI of the C spine is negative . Elevated CRP level Intractable nausea vomiting. Possible gastritis. Improving. Recent antibiotic course for possible sepsis at [facility] Due to bilateral lower extremity cellulitis status post antibiotic course with PICC line complicated by DVT. Currently on Eliquis.. Recent upper extremity DVT. Currently on Eliquis Pulmonary interstitial infiltrates unchanged from previous admission in September 2019 Coronary artery disease with history of stent placement History of back surgery Chronic bilateral lower acuity swelling due to venous insufficiency. Chronic CHF with diastolic dysfunction Diabetes type 2 insulin-dependent Obstructive sleep apnea on CPAP at home Morbid obesity with BMI 36.0 Chronic hypoxic respiratory failure secondary to COPD History of TIAs History of nonsustained V. tach Osteoarthritis GERD Hyperlipidemia DVT prophylaxis patient is already on anticoagulation Plan: Patient will be continued on vancomycin. Added cefepime. Patient will be continued on pain management with Percocet 10. Pain management service is following. Orthopedic surgery is on board. Currently was on antibiotics in the form of Zyvox as per recent antibiotic course from [facility]. Continue with insulin dosing and titrate as needed. ID and orthopedic surgery is following. Monitor CRP levels. Further recommendations based on the clinical course. Prognosis guarded with multiple medical problems and comorbid conditions. Time with Patient: Greater than 30
[2019-11-08 01:57] LABS: Glucose,Whole Blood 135 mg/dL (75-99)
[2019-11-08 06:43] LABS: Basophils # (A) 0.1 k/uL (0-0.2); Basophils % (A) 1 %; Eosinophils # (A) 1.3 k/uL (0-0.7); Eosinophils % (A) 11 %; HCT 24.2 % (39.0-53.0); HGB 7.8 gm/dL (13.0-17.5); Lymphocytes # (A) 0.7 k/uL (1.0-4.8); Lymphocytes % (A) 6 %; MCH 30.7 pg (25.0-35.0); MCHC 32.2 g/dL (31.0-37.0); MCV 95.2 fL (80.0-100.0); Mean Platelet Volume 9.3; Monocytes # (A) 0.9 k/uL (0-1.0); Monocytes % (A) 7 %; Neutrophils # (A) 8.6 k/uL (1.3-7.7); Neutrophils % (A) 74 %; Platelet Count 154 k/uL (150-450); RBC 2.55 m/uL (4.30-5.90); RDW 15.9 % (11.5-15.5); WBC 11.6 k/uL (3.8-10.6)
[2019-11-08 07:00] LABS: Calcium 8.5 mg/dL (8.4-10.2)
[2019-11-08 07:40] LABS: C Reactive Protein 331.9 mg/L (<10.0)
[2019-11-08 07:51] LABS: Glucose,Whole Blood 85 mg/dL (75-99)
[2019-11-08] MEDS: IPRATROPIUM-ALBUTEROL 3 ML NEB INHALATION PRN ×3 (08:12→16:01)
[2019-11-08] MEDS: SYMBICORT 80-4.5 MCG INHALER INHALATION SCH ×2 (08:13→19:46)
[2019-11-08 08:23] LABS: Erythrocyte Sedimentation Rate >140 mm/hr (0-15)
[2019-11-08] MEDS: ASPIRIN 325 MG TAB PO SCH (09:06)
[2019-11-08] MEDS: METOPROLOL TARTRATE 25 MG TAB PO SCH ×2 (09:06→20:00)
[2019-11-08] MEDS: FUROSEMIDE 10 MG/ML 2 ML VIAL IV SCH ×2 (09:06→20:00)
[2019-11-08] MEDS: APIXABAN 5 MG TAB PO SCH ×2 (09:06→20:00)
[2019-11-08] MEDS: GABAPENTIN 100 MG CAP PO SCH ×3 (09:06→20:00)
[2019-11-08] MEDS: ATORVASTATIN 80 MG TAB PO SCH (09:07)
[2019-11-08] MEDS: INSULIN ASPART (NovoLOG) 100 UNIT/ML VIAL SQ SCH ×2 (09:07→17:18)
[2019-11-08] MEDS: FAMOTIDINE 20 MG/2 ML VIAL IV SCH (09:07)
[2019-11-08] MEDS: POTASSIUM CHLORIDE ER 20 MEQ TAB.ER PO SCH ×2 (09:08→20:02)
[2019-11-08] MEDS: oxyCODONE-APAP 10-325MG 1 EACH TAB PO PRN ×2 (09:09→20:00)
[2019-11-08] MEDS ORDERED: VANCOMYCIN 1,500 MG in SODIUM CHLORIDE 0.9% 250 ML IVPB SCH (10:00)
[2019-11-08 11:20] LABS: Glucose,Whole Blood 120 mg/dL (75-99)
[2019-11-08] MEDS: CEFEPIME 2 GM in SODIUM CHLORIDE 0.9% 100 ML IVPB SCH (12:31)
[2019-11-08 12:38] LABS: Glucose,Whole Blood 152 mg/dL (75-99)
--- NOTE | 2019-11-08 14:38 | P.PN ---
Subjective Progress Note Date: 11/08/19 Principal diagnosis: neck pain and Shoulder pain Patient is a 69-year-old male with a known history of chronic neck pain, coronary artery disease history of stent placement, chronic CHF with diastolic dysfunction, hypertension, hyperlipidemia, diabetes type 2 insulin-dependent m orbid obesity and obstructive sleep apnea who was recently admitted to [facility] with generalized body aches. Patient was also recently discharged from [facility] and was treated for possible sepsis with unknown etiology. Patient was discharged on IV antibiotics and change to oral antibiotics in the form of Zyvox and due to complication of DVT in the left upper extremity. Patient is currently on Eliquis twice daily. Patient was recently discharged from the hospital on 09/22/2019 with a course of antibiotics in the form of Levaquin due to diffuse interstitial infiltrates. Patient presents to ER with complaints of neck pain mainly on the right side radiating down his shoulder and right arm. Patient is unable to move his right completely. Patient also complaining of right arm numbness as well. Denied any complaints of fever or chills. No chest pain or worsening shortness of breath. Patient does have chronic bilateral lower extremity swelling currently on Lasix at home by [facility]. CT angiogram of the chest showed no evidence of pulmonary embolism. There is s ome patchy atelectasis atelectasis in the lung base not significantly different from present exam. No suspicious pulmonary mass. Stable mild posterior pleural scarring. CT cervical spine showed redemonstrated advanced spondylitic changes especially in the mid to lower cervical spine. Degenerative grade 1 anterolisthesis at C4, C5 and focal kyphotic deformity. Variable neural foraminal stenosis. Apparent thickening of the prevertebral soft tissue seems to correspond to retropharyngeal course of the internal carotid arteries rather than effusion or edema. Laboratory data showed WBC 9.8, hemoglobin 9.6 and platelets 249 D-dimer [address] PE negative. Sodium 135, potassium 4.9, chloride 100, BUN 15 and creatinine 1.09 Blood sugar was 61 on admission CRP is 198.6 Albumin 3.3 patient was afebrile on but tachycardic with heart rate around 115 11/04/2019 Patient is currently sitting in the chair but still complaining of neck pain and is right-hand clenched towards the chest. Patient does not have any fever or chills this morning. No nausea vomiting or abdominal pain. No diarrhea. Patient is refusing IV Lasix saying that he was told that it is not good for his kidneys. Laboratory data showed WBC 11.3, hemoglobin 9.1 platelets 214 CRP level is 267 today. Currently on antibiotics in the form of Zyvox. ID is following. Awaiting records from the [facility]. 11/05/2019 Patient is still complaining of neck pain and pain down to the shoulders bilaterally. Patient was agitated and confused last night. Also developed fever. Zyvox was changed to vancomycin. MRI of the spine was ordered and ID is following. Patient was febrile last night. Follow up on cultures. Otherwise patient is being continued on an management. Neck orthopedic surgery and ID is following. Discussed with his at bedside in detail. Aberrantly patient was treated for possible sepsis secondary to bilateral lower activity cellulitis and was started on antibiotics with PICC line. Patient developed DVT of the right upper extremity and antibiotics were changed to Zyvox. Patient was started on Eliquis for anti-coagulation at [facility]. 11/05/2016 Patient is currently lying in the bed comfortable. Still complaining of neck pain and shoulder pains. Patient has been afebrile now. MRI of the cervical spine showed no evidence of discitis or osteoarthritis. No other evidence of septic foci was noted this time. Patient is currently on vancomycin and was started on cefepime. Follow up on blood cultures. ID is following. CT of abdomen pelvis was ordered. Patient otherwise denied any complaints of chest pain or shortness of breath. No cough or sputum production. Patient did have nausea. No episodes of vomiting. No diarrhea. 11/06/2017 Patient was initially admitted to the hospital with intractable neck pain down to the bilateral shoulders. MRI was done to rule out discitis and osteomyelitis. Negative at this time. Patient was febrile and leukocytosis with WBC count 13.5. CT of the abdomen pelvis was done to to evaluate for possible source of i nfection. ID is following. Patient is currently lying in the bed comfortably. Neck pain is better. Otherwise patient has been having nausea vomiting and abdominal discomfort mainly in the epigastric region. Laboratory data showed WBC 13.5, hemoglobin 7.3 and platelets 143. Discussed with his at bedside in detail. Orthopedic surgery and ID and pain management service is following. Currently maintained on antibiotics in the form of vancomycin and cefepime. current medications reviewed. 11/08/2019 Patient is seen and evaluated and follow-up currently sitting up in the chair attempting to eat some lunch. Patient continues to have some nausea with vomiting and family is at the bedside. Patient is maintained on IV antibiotics in the form of vancomycin and cefepime and will continue at this time. Infectious disease is following. Orthopedic surgery pain management is following recommending no surgical interventions at this time. Patient underwent CT abdomen showing fluid overload with anasarca with small pleural effusions and patchy groundglass in the lower lungs suggestive of pulmonary vascular congestion, confluent strandy densities in the lower retroperitoneum tracking down into the adnexa and presacral region, inflammation up from the bladder with possible cystitis, contrast noted within the lower esophagus suggesting GERD or esophageal dysmotility, and some mild left-sided colonic diverticulosis without any evidence of acute diverticulitis. Patient is continued on 4 L of oxygen via nasal cannula and denies any current chest pain or shortness of breath. Patient has been afebrile for over 24 hours. White blood count slowly trending down at 11.6. Hemoglobin is 7.8 with no active bleeding noted. Creatinine is 1.00, and CRP slowly trending down at 331.9. Blood sugars on the lower side and will discontinue long-acting and continue with sliding scale and monitor closely. Objective - Vital Signs Vital signs: Vital Signs Temp 99.5 F 11/08/19 04:11 Pulse 90 11/08/19 11:57 Resp 18 11/08/19 04:11 BP 137/62 11/08/19 04:11 Pulse Ox 99 11/08/19 04:11 Intake & Output 11/07/19 11/08/19 11/08/19 18:59 06:59 18:59 Output Total 2800 895 Balance -2800 -895 Weight 103 kg 103 kg Output: Urine 2400 895 Emesis 400 Other: Voiding Method Indwelling Catheter Indwelling Catheter # Bowel Movements 1 - Exam Patient is sitting up in the chair, awake, alert and oriented 3, well- developed, well-nourished, obese. HEENT: Normocephalic. Neck is supple. Pupils reactive. Nostrils clear. Oral cavity is moist. Ears reveal no drainage. Neck reveals no JVD, carotid bruits, or thyromegaly. CHEST EXAMINATION: Trachea is central. Symmetrical expansion. Bibasilar crackles and no wheezing. Nonlabored breathing.. CARDIAC: Normal S1, S2 with no gallops. No murmurs ABDOMEN: Soft. Bowel sounds normal. No organomegaly. No abdominal bruits. Extremities: Bilateral lower extremity 1+ edema. No clubbing or cyanosis, improved Neurologically awake, alert, oriented x3 with well-coordinated movements. No focal deficits noted Skin: No rash or skin lesions. Psychiatric: Cooperative. Non-suicidal Musculoskeletal: No joint swelling or deformity. Normal range of motion. - Labs CBC & Chem 7: 11/08/19 06:18 11/08/19 06:18 Labs: Abnormal Lab Results - Last 24 Hours (Table) 11/07/19 11/07/19 11/07/19 Range/Units 06:26 17:14 20:35 WBC 13.5 H (3.8-10.6) k/uL RBC 2.38 L (4.30-5.90) m/uL Hgb 7.3 L (13.0-17.5) gm/dL Hct 23.2 L (39.0-53.0) % RDW 15.9 H (11.5-15.5) % Plt Count 143 L (150-450) k/uL Neutrophils # 10.7 H (1.3-7.7) k/uL Lymphocytes # 0.8 L (1.0-4.8) k/uL Eosinophils # (0-0.7) k/uL ESR (0-15) mm/hr POC Glucose (mg/dL) 127 H 115 H (75-99) mg/dL C-Reactive Protein (<10.0) mg/L 11/08/19 11/08/19 11/08/19 Range/Units 01:56 06:18 06:18 WBC 11.6 H (3.8-10.6) k/uL RBC 2.55 L (4.30-5.90) m/uL Hgb 7.8 L (13.0-17.5) gm/dL Hct 24.2 L (39.0-53.0) % RDW 15.9 H (11.5-15.5) % Plt Count (150-450) k/uL Neutrophils # 8.6 H (1.3-7.7) k/uL Lymphocytes # 0.7 L (1.0-4.8) k/uL Eosinophils # 1.3 H (0-0.7) k/uL ESR >140 H (0-15) mm/hr POC Glucose (mg/dL) 135 H (75-99) mg/dL C-Reactive Protein 331.9 H (<10.0) mg/L 11/08/19 11/08/19 Range/Units 11:18 12:36 WBC (3.8-10.6) k/uL RBC (4.30-5.90) m/uL Hgb (13.0-17.5) gm/dL Hct (39.0-53.0) % RDW (11.5-15.5) % Plt Count (150-450) k/uL Neutrophils # (1.3-7.7) k/uL Lymphocytes # (1.0-4.8) k/uL Eosinophils # (0-0.7) k/uL ESR (0-15) mm/hr POC Glucose (mg/dL) 120 H 152 H (75-99) mg/dL C-Reactive Protein (<10.0) mg/L Microbiology - Last 24 Hours (Table) 11/04/19 06:47 Blood Culture - Preliminary Blood No Growth after 96 hours 11/03/19 22:27 Blood Culture - Preliminary Blood No Growth after 96 hours 11/04/19 22:26 Blood Culture - Preliminary Blood No Growth after 72 hours Assessment and Plan Assessment: Right sided neck pain and upper arm pain likely due to advanced spondylitic changes in the lower cervical spine. improving now. Fever, elevated CRP level and possible cervical discitis versus osteomyelitis. MRI of the C spine is negative . Elevated CRP level Intractable nausea vomiting. Possible gastritis. Improving. Recent antibiotic course for possible sepsis at [facility] Due to bilateral lower extremity cellulitis status post antibiotic course with PICC line complicated by DVT. Currently on Eliquis.. Recent upper extremity DVT. Currently on Eliquis Pulmonary interstitial infiltrates unchanged from previous admission in September 2019 Coronary artery disease with history of stent placement History of back surgery Chronic bilateral lower acuity swelling due to venous insufficiency. Chronic CHF with diastolic dysfunction Diabetes type 2 insulin-dependent Obstructive sleep apnea on CPAP at home Morbid obesity with BMI 36.0 Chronic hypoxic respiratory failure secondary to COPD History of TIAs History of nonsustained V. tach Osteoarthritis GERD Hyperlipidemia DVT prophylaxis patient is already on anticoagulation Plan: Patient to continue current IV antibiotics in the form of vancomycin and cefepime. Blood sugars running on the lower side and will discontinue long- acting and continue adjusting sliding scale and monitor closely. Encouraged increased activity as tolerated along with increasing oral intake. Pain management following recommending no surgical interventions at this time. Infectious disease also following. CRP trending down and will continue to monitor closely. Due to multiple complex medical issues, prognosis is guarded. Further recommendations to follow. Will repeat a.m. labs.
[2019-11-08 16:59] LABS: Glucose,Whole Blood 194 mg/dL (75-99)
[2019-11-08] MEDS: SODIUM CHLORIDE 0.9% 1,000 ML IV SCH (19:48)
[2019-11-08] MEDS: TAMSULOSIN 0.4 MG CAP.ER.24H PO SCH (20:00)
[2019-11-08] MEDS: PANTOPRAZOLE 40 MG TABLET PO SCH (20:00)
[2019-11-08] MEDS: PRAMIPEXOLE 1 MG TAB PO SCH (20:01)
[2019-11-08 20:20] LABS: Glucose,Whole Blood 168 mg/dL (75-99)
[2019-11-08] MEDS ORDERED: INSULIN DETEMIR (LEVEMIR) 100 UNIT/ML SYR SQ SCH (21:00)
--- NOTE | 2019-11-08 23:29 | PN ---
PROGRESS NOTE DATE OF SERVICE: 11/08/2019 REASON FOR FOLLOWUP: Sepsis, fever, possible cystitis. INTERVAL HISTORY: The patient is currently afebrile, has been breathing comfortably. The patient denies having any chest pain or shortness of breath or cough. No further nausea, vomiting, abdominal pain or diarrhea. PHYSICAL EXAMINATION: Blood pressure 109/55 with the pulse 94, temperature 98. He is 100% on 4 L nasal cannula. General description is an elderly male up in the bed in no distress. RESPIRATORY SYSTEM: Unlabored breathing, decreased breath sounds at the bases. No wheeze. HEART: S1, S2. Regular rate and rhythm. ABDOMEN: Soft, no tenderness. EXTREMITIES: No edema of the feet. LABS: Hemoglobin 7.8, white count 11.6, BUN of 17, creatinine 1.0. Blood culture has been negative. Urine is negative. The patient's abdomen and pelvis CT was reviewed with radiologist. There was some inflammation around the bladder area. However, no evidence of any colitis or discitis of the lumbosacral spine. DIAGNOSTIC IMPRESSION AND PLAN: Patient with sepsis in this patient predominant symptom was neck pain with main concern for possible cervical diskitis that has been ruled out. MRI was negative. The patient did have a CT of abdomen and pelvis with some abnormality around the bladder area. However, the patient's UA was negative and no evidence of any colitis. His white count and fever responded to cefepime, which should continued. We will discontinue the vancomycin and if the patient continues to improve with cefepime hopefully finish therapy with oral antibiotics. Repeat the CBC and CRP tomorrow. His questions and concerns were answered. MMODL / IJN: [id number] /
[2019-11-09] MEDS: INSULIN ASPART (NovoLOG) 100 UNIT/ML VIAL SQ SCH ×5 (00:43→20:30)
[2019-11-09] MEDS: CEFEPIME 2 GM in SODIUM CHLORIDE 0.9% 100 ML IVPB SCH ×3 (01:03→23:23)
[2019-11-09 06:31] LABS: Glucose,Whole Blood 108 mg/dL (75-99)
[2019-11-09 06:42] LABS: African American GFR (CKD) >90 (>60 ml/min/1.73 sqM); Anion Gap 6 mmol/L; Blood Urea Nitrogen 17 mg/dL (9-20); Calcium 8.4 mg/dL (8.4-10.2); Carbon Dioxide 26 mmol/L (22-30); Chloride 105 mmol/L (98-107); Glucose 98 mg/dL (74-99); Non-African American GFR(CKD) 87 (>60 ml/min/1.73 sqM); Sodium 137 mmol/L (137-145)
[2019-11-09 06:45] LABS: Basophils % (A) 0 %; Eosinophils # (A) 1.4 k/uL (0-0.7); Eosinophils % (A) 12 %; HCT 24.3 % (39.0-53.0); HGB 7.5 gm/dL (13.0-17.5); Hypochromasia Slight; Lymphocytes # (A) 1.2 k/uL (1.0-4.8); Lymphocytes % (A) 10 %; MCH 29.6 pg (25.0-35.0); MCHC 30.8 g/dL (31.0-37.0); MCV 95.9 fL (80.0-100.0); Mean Platelet Volume 9.3; Monocytes % (A) 9 %; Neutrophils # (A) 8.2 k/uL (1.3-7.7); Neutrophils % (A) 68 %; Platelet Count 186 k/uL (150-450); RBC 2.53 m/uL (4.30-5.90); RDW 15.9 % (11.5-15.5)
[2019-11-09 07:47] LABS: C Reactive Protein 306.9 mg/L (<10.0)
[2019-11-09] MEDS: FUROSEMIDE 10 MG/ML 2 ML VIAL IV SCH ×2 (08:10→20:36)
[2019-11-09] MEDS: POTASSIUM CHLORIDE ER 20 MEQ TAB.ER PO SCH ×2 (08:10→20:36)
[2019-11-09] MEDS: ASPIRIN 325 MG TAB PO SCH (08:10)
[2019-11-09] MEDS: METOPROLOL TARTRATE 25 MG TAB PO SCH ×2 (08:10→20:36)
[2019-11-09] MEDS: GABAPENTIN 100 MG CAP PO SCH ×3 (08:10→20:36)
[2019-11-09] MEDS: APIXABAN 5 MG TAB PO SCH ×2 (08:10→20:37)
[2019-11-09] MEDS: ATORVASTATIN 80 MG TAB PO SCH (08:10)
[2019-11-09] MEDS: oxyCODONE-APAP 10-325MG 1 EACH TAB PO PRN ×2 (08:12→20:37)
[2019-11-09] MEDS: IPRATROPIUM-ALBUTEROL 3 ML NEB INHALATION PRN ×4 (08:19→19:59)
[2019-11-09] MEDS: SYMBICORT 80-4.5 MCG INHALER INHALATION SCH ×2 (08:19→19:59)
[2019-11-09 12:21] LABS: Glucose,Whole Blood 136 mg/dL (75-99)
[2019-11-09] MEDS: SODIUM CHLORIDE 0.9% 1,000 ML IV SCH (15:50)
[2019-11-09 17:49] LABS: Glucose,Whole Blood 143 mg/dL (75-99)
--- NOTE | 2019-11-09 18:32 | P.PN ---
Subjective Progress Note Date: 11/09/19 Principal diagnosis: neck pain and Shoulder pain Patient is a 69-year-old male with a known history of chronic neck pain, coronary artery disease history of stent placement, chronic CHF with diastolic dysfunction, hypertension, hyperlipidemia, diabetes type 2 insulin-dependent m orbid obesity and obstructive sleep apnea who was recently admitted to [facility] with generalized body aches. Patient was also recently discharged from [facility] and was treated for possible sepsis with unknown etiology. Patient was discharged on IV antibiotics and change to oral antibiotics in the form of Zyvox and due to complication of DVT in the left upper extremity. Patient is currently on Eliquis twice daily. Patient was recently discharged from the hospital on 09/22/2019 with a course of antibiotics in the form of Levaquin due to diffuse interstitial infiltrates. Patient presents to ER with complaints of neck pain mainly on the right side radiating down his shoulder and right arm. Patient is unable to move his right completely. Patient also complaining of right arm numbness as well. Denied any complaints of fever or chills. No chest pain or worsening shortness of breath. Patient does have chronic bilateral lower extremity swelling currently on Lasix at home by [facility]. CT angiogram of the chest showed no evidence of pulmonary embolism. There is s ome patchy atelectasis atelectasis in the lung base not significantly different from present exam. No suspicious pulmonary mass. Stable mild posterior pleural scarring. CT cervical spine showed redemonstrated advanced spondylitic changes especially in the mid to lower cervical spine. Degenerative grade 1 anterolisthesis at C4, C5 and focal kyphotic deformity. Variable neural foraminal stenosis. Apparent thickening of the prevertebral soft tissue seems to correspond to retropharyngeal course of the internal carotid arteries rather than effusion or edema. Laboratory data showed WBC 9.8, hemoglobin 9.6 and platelets 249 D-dim[address] PE negative. Sodium 135, potassium 4.9, chloride 100, BUN 15 and creatinine 1.09 Blood sugar was 61 on admission CRP is 198.6 Albumin 3.3 patient was afebrile on but tachycardic with heart rate around 115 11/04/2019 Patient is currently sitting in the chair but still complaining of neck pain and is right-hand clenched towards the chest. Patient does not have any fever or chills this morning. No nausea vomiting or abdominal pain. No diarrhea. Patient is refusing IV Lasix saying that he was told that it is not good for his kidneys. Laboratory data showed WBC 11.3, hemoglobin 9.1 platelets 214 CRP level is 267 today. Currently on antibiotics in the form of Zyvox. ID is following. Awaiting records from the [facility]. 11/05/2019 Patient is still complaining of neck pain and pain down to the shoulders bilaterally. Patient was agitated and confused last night. Also developed fever. Zyvox was changed to vancomycin. MRI of the spine was ordered and ID is following. Patient was febrile last night. Follow up on cultures. Otherwise patient is being continued on an management. Neck orthopedic surgery and ID is following. Discussed with his at bedside in detail. Aberrantly patient was treated for possible sepsis secondary to bilateral lower activity cellulitis and was started on antibiotics with PICC line. Patient developed DVT of the right upper extremity and antibiotics were changed to Zyvox. Patient was started on Eliquis for anti-coagulation at [facility]. 11/05/2016 Patient is currently lying in the bed comfortable. Still complaining of neck pain and shoulder pains. Patient has been afebrile now. MRI of the cervical spine showed no evidence of discitis or osteoarthritis. No other evidence of septic foci was noted this time. Patient is currently on vancomycin and was started on cefepime. Follow up on blood cultures. ID is following. CT of abdomen pelvis was ordered. Patient otherwise denied any complaints of chest pain or shortness of breath. No cough or sputum production. Patient did have nausea. No episodes of vomiting. No diarrhea. 11/06/2017 Patient was initially admitted to the hospital with intractable neck pain down to the bilateral shoulders. MRI was done to rule out discitis and osteomyelitis. Negative at this time. Patient was febrile and leukocytosis with WBC count 13.5. CT of the abdomen pelvis was done to to evaluate for possible source of i nfection. ID is following. Patient is currently lying in the bed comfortably. Neck pain is better. Otherwise patient has been having nausea vomiting and abdominal discomfort mainly in the epigastric region. Laboratory data showed WBC 13.5, hemoglobin 7.3 and platelets 143. Discussed with his at bedside in detail. Orthopedic surgery and ID and pain management service is following. Currently maintained on antibiotics in the form of vancomycin and cefepime. current medications reviewed. 11/08/2019 Patient is seen and evaluated and follow-up currently sitting up in the chair attempting to eat some lunch. Patient continues to have some nausea with vomiting and family is at the bedside. Patient is maintained on IV antibiotics in the form of vancomycin and cefepime and will continue at this time. Infectious disease is following. Orthopedic surgery pain management is following recommending no surgical interventions at this time. Patient underwent CT abdomen showing fluid overload with anasarca with small pleural effusions and patchy groundglass in the lower lungs suggestive of pulmonary vascular congestion, confluent strandy densities in the lower retroperitoneum tracking down into the adnexa and presacral region, inflammation up from the bladder with possible cystitis, contrast noted within the lower esophagus suggesting GERD or esophageal dysmotility, and some mild left-sided colonic diverticulosis without any evidence of acute diverticulitis. Patient is continued on 4 L of oxygen via nasal cannula and denies any current chest pain or shortness of breath. Patient has been afebrile for over 24 hours. White blood count slowly trending down at 11.6. Hemoglobin is 7.8 with no active bleeding noted. Creatinine is 1.00, and CRP slowly trending down at 331.9. Blood sugars on the lower side and will discontinue long-acting and continue with sliding scale and monitor closely. 11/09/2019 Patient seen in follow up today with no acute overnight issues noted. Patient denies any nausea or vomiting and has tolerated diet. Patient currently remains on IV antibiotics in the form of cefepime and vanco has been discontinued. Patient is afebrile. Patient generalized edema continues to improve. Discussed with the patient about discharge planning needs and although doesn't want to go to rehab is agreeable for continued PT/OT therapy as patient continues to be rosa isela te weak and PT/OT recommending [facility] upon discharge. Social work following and working on accepting facilities along with insurance authorization. Blood sugars being closely monitored. Objective - Vital Signs Vital signs: Vital Signs Temp 98.5 F 11/09/19 04:00 Pulse 96 11/09/19 08:40 Resp 20 11/09/19 04:00 BP 127/66 11/09/19 04:00 Pulse Ox 95 11/09/19 04:00 Intake & Output 11/08/19 11/09/19 11/09/19 18:59 06:59 18:59 Intake Total 125 120 Output Total 900 Balance 125 -900 120 Weight 103 kg 100.9 kg Intake: Oral 125 120 Output: Urine 900 Other: Voiding Method Indwelling Catheter Indwelling Catheter # Bowel Movements 1 1 - Exam Patient is sitting up in the chair, awake, alert and oriented 3, well- developed, well-nourished, obese. HEENT: Normocephalic. Neck is supple. Pupils reactive. Nostrils clear. Oral cavi ty is moist. Ears reveal no drainage. Neck reveals no JVD, carotid bruits, or thyromegaly. CHEST EXAMINATION: Trachea is central. Symmetrical expansion. Bibasilar crackles and no wheezing. Nonlabored breathing.. CARDIAC: Normal S1, S2 with no gallops. No murmurs ABDOMEN: Soft. Bowel sounds normal. No organomegaly. No abdominal bruits. Extremities: Bilateral lower extremity 1+ edema. No clubbing or cyanosis, improved Neurologically awake, alert, oriented x3 with well-coordinated movements. No focal deficits noted Skin: No rash or skin lesions. Psychiatric: Cooperative. Non-suicidal Musculoskeletal: No joint swelling or deformity. Normal range of motion. - Labs CBC & Chem 7: 11/09/19 05:49 11/09/19 05:49 Labs: Abnormal Lab Results - Last 24 Hours (Table) 11/08/19 11/08/19 11/08/19 Range/Units 11:18 12:36 16:58 WBC (3.8-10.6) k/uL RBC (4.30-5.90) m/uL Hgb (13.0-17.5) gm/dL Hct (39.0-53.0) % MCHC (31.0-37.0) g/dL RDW (11.5-15.5) % Neutrophils # (1.3-7.7) k/uL Eosinophils # (0-0.7) k/uL POC Glucose (mg/dL) 120 H 152 H 194 H (75-99) mg/dL C-Reactive Protein (<10.0) mg/L 11/08/19 11/09/19 11/09/19 Range/Units 20:18 05:49 05:49 WBC 12.0 H (3.8-10.6) k/uL RBC 2.53 L (4.30-5.90) m/uL Hgb 7.5 L (13.0-17.5) gm/dL Hct 24.3 L (39.0-53.0) % MCHC 30.8 L (31.0-37.0) g/dL RDW 15.9 H (11.5-15.5) % Neutrophils # 8.2 H (1.3-7.7) k/uL Eosinophils # 1.4 H (0-0.7) k/uL POC Glucose (mg/dL) 168 H (75-99) mg/dL C-Reactive Protein 306.9 H (<10.0) mg/L 11/09/19 Range/Units 06:29 WBC (3.8-10.6) k/uL RBC (4.30-5.90) m/uL Hgb (13.0-17.5) gm/dL Hct (39.0-53.0) % MCHC (31.0-37.0) g/dL RDW (11.5-15.5) % Neutrophils # (1.3-7.7) k/uL Eosinophils # (0-0.7) k/uL POC Glucose (mg/dL) 108 H (75-99) mg/dL C-Reactive Protein (<10.0) mg/L Microbiology - Last 24 Hours (Table) 11/04/19 06:47 Blood Culture - Preliminary Blood No Growth after 120 hours 11/03/19 22:27 Blood Culture - Preliminary Blood No Growth after 120 hours 11/04/19 22:26 Blood Culture - Preliminary Blood No Growth after 96 hours Assessment and Plan Assessment: Right sided neck pain and upper arm pain likely due to advanced spondylitic changes in the lower cervical spine. improving now. Fever, elevated CRP level and possible cervical discitis versus osteomyelitis. MRI of the C spine is negative, improving Elevated CRP level Intractable nausea vomiting. Possible gastritis. Improving. Recent antibiotic course for possible sepsis at [facility] Due to bilateral lower extremity cellulitis status post antibiotic course with PICC line complicated by DVT. Recent upper extremity DVT. Currently on Eliquis Pulmonary interstitial infiltrates unchanged from previous admission in September 2019 Coronary artery disease with history of stent placement History of back surgery Chronic bilateral lower acuity swelling due to venous insufficiency. Chronic CHF with diastolic dysfunction Diabetes type 2 insulin-dependent Obstructive sleep apnea on CPAP at home Morbid obesity with BMI 36.0 Chronic hypoxic respiratory failure secondary to COPD History of TIAs History of nonsustained V. tach Osteoarthritis GERD Hyperlipidemia DVT prophylaxis patient is already on anticoagulation Plan: Patient to continue current IV antibiotics in the form of cefepime. Infectious disease following. Patient will likely transition to oral antibiotics upon discharge. Blood sugars running on the lower side and being monitored closely. Continue with sliding scale. Encouraged increased activity as tolerated along with increasing oral intake. Pain management following recommending no surgical interventions at this time. CRP trending down and will continue to monitor closely. Due to multiple complex medical issues, prognosis is guarded. Further recommendations to follow. Will repeat a.m. labs. Working on possible ECF placement for continued PT/OT therapy.
[2019-11-09 20:21] LABS: Glucose,Whole Blood 133 mg/dL (75-99)
[2019-11-09] MEDS: PANTOPRAZOLE 40 MG TABLET PO SCH (20:36)
[2019-11-09] MEDS: TAMSULOSIN 0.4 MG CAP.ER.24H PO SCH (20:36)
[2019-11-09] MEDS: PRAMIPEXOLE 1 MG TAB PO SCH (23:20)
--- NOTE | 2019-11-10 01:03 | PN ---
PROGRESS NOTE DATE OF SERVICE: 11/09/2019 REASON FOR FOLLOWUP: Fever with a question of cystitis. INTERVAL HISTORY: The patient overall feels better and has improved with no fever has been recorded since the . The patient still complaining of feeling weak and tired. No energy. Denies having any headache. No chest pain or shortness of breath. Occasional cough. No abdominal pain. No further diarrhea. PHYSICAL EXAMINATION: Blood pressure 111/84 with a pulse of 79, temperature 98. He is 96% on 4 L nasal cannula. General description is an elderly male up in the bed in no distress. RESPIRATORY SYSTEM: Unlabored breathing, decreased breath sounds in the bases. No wheeze. HEART: S1, S2. Regular rate and rhythm. ABDOMEN: Soft, no tenderness. LABS: Hemoglobin 7.5, white count 12, BUN of 17, creatinine 0.89. CRP is down to 309. DIAGNOSTIC IMPRESSION AND PLAN: Patient with fever, leukocytosis in this patient who did have extensive workup but no clear focus of infection. CT was suspicious for some inflammation around the bladder but UA is negative. MRI of cervical spine was negative as well. Culture has been negative. We will obtain a WBC scan to further investigate. Continue with cefepime. Repeat CBC tomorrow and monitor clinical course closely. MMODL / IJN: [id number] /
[2019-11-10 06:22] LABS: Glucose,Whole Blood 103 mg/dL (75-99)
[2019-11-10 06:30] LABS: Basophils # (A) 0.1 k/uL (0-0.2); Basophils % (A) 1 %; Eosinophils # (A) 1.5 k/uL (0-0.7); Eosinophils % (A) 11 %; HCT 23.9 % (39.0-53.0); HGB 7.4 gm/dL (13.0-17.5); Hypochromasia Slight; Lymphocytes # (A) 1.3 k/uL (1.0-4.8); Lymphocytes % (A) 10 %; MCHC 31.2 g/dL (31.0-37.0); MCV 96.1 fL (80.0-100.0); Monocytes # (A) 0.9 k/uL (0-1.0); Monocytes % (A) 6 %; Neutrophils # (A) 9.3 k/uL (1.3-7.7); Neutrophils % (A) 70 %; Platelet Count 249 k/uL (150-450); RBC 2.48 m/uL (4.30-5.90); RDW 15.7 % (11.5-15.5); WBC 13.2 k/uL (3.8-10.6)
[2019-11-10 06:42] LABS: African American GFR (CKD) >90 (>60 ml/min/1.73 sqM); Anion Gap 7 mmol/L; Blood Urea Nitrogen 15 mg/dL (9-20); Calcium 8.6 mg/dL (8.4-10.2); Carbon Dioxide 25 mmol/L (22-30); Chloride 105 mmol/L (98-107); Glucose 89 mg/dL (74-99); Non-African American GFR(CKD) >90 (>60 ml/min/1.73 sqM); Potassium 4.1 mmol/L (3.5-5.1); Sodium 137 mmol/L (137-145)
[2019-11-10] MEDS: INSULIN ASPART (NovoLOG) 100 UNIT/ML VIAL SQ SCH ×4 (07:17→21:36)
[2019-11-10] MEDS: ATORVASTATIN 80 MG TAB PO SCH (08:32)
[2019-11-10] MEDS: oxyCODONE-APAP 10-325MG 1 EACH TAB PO PRN ×3 (08:32→20:05)
[2019-11-10] MEDS: POTASSIUM CHLORIDE ER 20 MEQ TAB.ER PO SCH ×2 (08:32→20:05)
[2019-11-10] MEDS: ASPIRIN 325 MG TAB PO SCH (08:33)
[2019-11-10] MEDS: METOPROLOL TARTRATE 25 MG TAB PO SCH ×2 (08:33→20:05)
[2019-11-10] MEDS: FUROSEMIDE 10 MG/ML 2 ML VIAL IV SCH ×2 (08:33→20:04)
[2019-11-10] MEDS: CEFEPIME 2 GM in SODIUM CHLORIDE 0.9% 100 ML IVPB SCH (08:33)
[2019-11-10] MEDS: GABAPENTIN 100 MG CAP PO SCH ×3 (08:33→20:05)
[2019-11-10] MEDS: APIXABAN 5 MG TAB PO SCH ×2 (08:33→20:05)
[2019-11-10] MEDS: SYMBICORT 80-4.5 MCG INHALER INHALATION SCH ×2 (09:23→20:20)
[2019-11-10] MEDS: IPRATROPIUM-ALBUTEROL 3 ML NEB INHALATION PRN (11:22)
[2019-11-10 12:44] LABS: Glucose,Whole Blood 100 mg/dL (75-99)
--- NOTE | 2019-11-10 15:33 | P.PN ---
Subjective Progress Note Date: 11/10/19 Principal diagnosis: neck pain and Shoulder pain Patient is a 69-year-old male with a known history of chronic neck pain, coronary artery disease history of stent placement, chronic CHF with diastolic dysfunction, hypertension, hyperlipidemia, diabetes type 2 insulin-dependent m orbid obesity and obstructive sleep apnea who was recently admitted to [facility] with generalized body aches. Patient was also recently discharged from [facility] and was treated for possible sepsis with unknown etiology. Patient was discharged on IV antibiotics and change to oral antibiotics in the form of Zyvox and due to complication of DVT in the left upper extremity. Patient is currently on Eliquis twice daily. Patient was recently discharged from the hospital on 09/22/2019 with a course of antibiotics in the form of Levaquin due to diffuse interstitial infiltrates. Patient presents to ER with complaints of neck pain mainly on the right side radiating down his shoulder and right arm. Patient is unable to move his right completely. Patient also complaining of right arm numbness as well. Denied any complaints of fever or chills. No chest pain or worsening shortness of breath. Patient does have chronic bilateral lower extremity swelling currently on Lasix at home by [facility]. CT angiogram of the chest showed no evidence of pulmonary embolism. There is s ome patchy atelectasis atelectasis in the lung base not significantly different from present exam. No suspicious pulmonary mass. Stable mild posterior pleural scarring. CT cervical spine showed redemonstrated advanced spondylitic changes especially in the mid to lower cervical spine. Degenerative grade 1 anterolisthesis at C4, C5 and focal kyphotic deformity. Variable neural foraminal stenosis. Apparent thickening of the prevertebral soft tissue seems to correspond to retropharyngeal course of the internal carotid arteries rather than effusion or edema. Laboratory data showed WBC 9.8, hemoglobin 9.6 and platelets 249 D-dim[address] PE negative. Sodium 135, potassium 4.9, chloride 100, BUN 15 and creatinine 1.09 Blood sugar was 61 on admission CRP is 198.6 Albumin 3.3 patient was afebrile on but tachycardic with heart rate around 115 11/04/2019 Patient is currently sitting in the chair but still complaining of neck pain and is right-hand clenched towards the chest. Patient does not have any fever or chills this morning. No nausea vomiting or abdominal pain. No diarrhea. Patient is refusing IV Lasix saying that he was told that it is not good for his kidneys. Laboratory data showed WBC 11.3, hemoglobin 9.1 platelets 214 CRP level is 267 today. Currently on antibiotics in the form of Zyvox. ID is following. Awaiting records from the [facility]. 11/05/2019 Patient is still complaining of neck pain and pain down to the shoulders bilaterally. Patient was agitated and confused last night. Also developed fever. Zyvox was changed to vancomycin. MRI of the spine was ordered and ID is following. Patient was febrile last night. Follow up on cultures. Otherwise patient is being continued on an management. Neck orthopedic surgery and ID is following. Discussed with his at bedside in detail. Aberrantly patient was treated for possible sepsis secondary to bilateral lower activity cellulitis and was started on antibiotics with PICC line. Patient developed DVT of the right upper extremity and antibiotics were changed to Zyvox. Patient was started on Eliquis for anti-coagulation at [facility]. 11/05/2016 Patient is currently lying in the bed comfortable. Still complaining of neck pain and shoulder pains. Patient has been afebrile now. MRI of the cervical spine showed no evidence of discitis or osteoarthritis. No other evidence of septic foci was noted this time. Patient is currently on vancomycin and was started on cefepime. Follow up on blood cultures. ID is following. CT of abdomen pelvis was ordered. Patient otherwise denied any complaints of chest pain or shortness of breath. No cough or sputum production. Patient did have nausea. No episodes of vomiting. No diarrhea. 11/06/2017 Patient was initially admitted to the hospital with intractable neck pain down to the bilateral shoulders. MRI was done to rule out discitis and osteomyelitis. Negative at this time. Patient was febrile and leukocytosis with WBC count 13.5. CT of the abdomen pelvis was done to to evaluate for possible source of i nfection. ID is following. Patient is currently lying in the bed comfortably. Neck pain is better. Otherwise patient has been having nausea vomiting and abdominal discomfort mainly in the epigastric region. Laboratory data showed WBC 13.5, hemoglobin 7.3 and platelets 143. Discussed with his at bedside in detail. Orthopedic surgery and ID and pain management service is following. Currently maintained on antibiotics in the form of vancomycin and cefepime. current medications reviewed. 11/08/2019 Patient is seen and evaluated and follow-up currently sitting up in the chair attempting to eat some lunch. Patient continues to have some nausea with vomiting and family is at the bedside. Patient is maintained on IV antibiotics in the form of vancomycin and cefepime and will continue at this time. Infectious disease is following. Orthopedic surgery pain management is following recommending no surgical interventions at this time. Patient underwent CT abdomen showing fluid overload with anasarca with small pleural effusions and patchy groundglass in the lower lungs suggestive of pulmonary vascular congestion, confluent strandy densities in the lower retroperitoneum tracking down into the adnexa and presacral region, inflammation up from the bladder with possible cystitis, contrast noted within the lower esophagus suggesting GERD or esophageal dysmotility, and some mild left-sided colonic diverticulosis without any evidence of acute diverticulitis. Patient is continued on 4 L of oxygen via nasal cannula and denies any current chest pain or shortness of breath. Patient has been afebrile for over 24 hours. White blood count slowly trending down at 11.6. Hemoglobin is 7.8 with no active bleeding noted. Creatinine is 1.00, and CRP slowly trending down at 331.9. Blood sugars on the lower side and will discontinue long-acting and continue with sliding scale and monitor closely. 11/09/2019 Patient seen in follow up today with no acute overnight issues noted. Patient denies any nausea or vomiting and has tolerated diet. Patient currently remains on IV antibiotics in the form of cefepime and vanco has been discontinued. Patient is afebrile. Patient generalized edema continues to improve. Discussed with the patient about discharge planning needs and although doesn't want to go to rehab is agreeable for continued PT/OT therapy as patient continues to be rosa isela te weak and PT/OT recommending [facility]I upon discharge. Social work following and working on accepting facilities along with insurance authorization. Blood sugars being closely monitored. 11/10/2019 Patient is seen and evaluated in follow-up today and is maintained on IV antibiotics in the form of cefepime. Blood cultures continue to be negative. Patient's white blood count today slightly trending up at 13.2. Patient is scheduled to undergo a WBC scan and awaiting report. No acute overnight events noted. Patient's blood sugars can continue to be well controlled as patient is maintained on sliding scale at this time. Long-acting continues to be on hold. Patient's hemoglobin today is 7.4 with no active bleeding noted. Review of systems: Constitutional: Reports fatigue with no reports of fevers or chills Cardiovascular: No reports of chest pain or palpitations Respiratory: Reports some mild shortness of breath on occasion, no reports of cough GI: No reports of nausea, vomiting, or diarrhea : No reports of dysuria or retention, indwelling Finch catheter noted Neurovascular: Reports weakness, no reports of numbness All medications have been reviewed. Objective - Vital Signs Vital signs: Vital Signs Temp 98 F 11/10/19 00:00 Pulse 91 11/10/19 08:00 Resp 20 11/10/19 08:00 BP 140/70 11/10/19 08:00 Pulse Ox 95 11/10/19 08:00 Intake & Output 11/09/19 11/10/19 11/10/19 18:59 06:59 18:59 Intake Total 480 120 Output Total 1000 775 Balance -520 -775 120 Weight 102.5 kg Intake: Oral 480 120 Output: Urine 1000 775 Other: Voiding Method Indwelling Catheter Indwelling Catheter Indwelling Catheter # Bowel Movements 1 - Exam Patient is sitting up in the chair, lethargic although easily arousable, alert and oriented 3, well-developed, well-nourished, obese. HEENT: Normocephalic. Neck is supple. Pupils reactive. Nostrils clear. Oral cavity is moist. Ears reveal no drainage. Neck reveals no JVD, carotid bruits, or thyromegaly. CHEST EXAMINATION: Trachea is central. Symmetrical expansion. Bibasilar crackles and no wheezing. Nonlabored breathing.. CARDIAC: Normal S1, S2 with no gallops. No murmurs ABDOMEN: Soft. Bowel sounds normal. No organomegaly. No abdominal bruits. Extremities: Bilateral lower extremity 1+ edema. No clubbing or cyanosis, improved Neurologically alert, oriented x3 with well-coordinated movements. No focal deficits noted Skin: No rash or skin lesions. Psychiatric: Cooperative. Non-suicidal Musculoskeletal: No joint swelling or deformity. Normal range of motion. - Labs CBC & Chem 7: 11/10/19 05:46 11/10/19 05:46 Labs: Abnormal Lab Results - Last 24 Hours (Table) 11/09/19 11/09/19 11/09/19 Range/Units 12:03 17:30 20:19 WBC (3.8-10.6) k/uL RBC (4.30-5.90) m/uL Hgb (13.0-17.5) gm/dL Hct (39.0-53.0) % RDW (11.5-15.5) % Neutrophils # (1.3-7.7) k/uL Eosinophils # (0-0.7) k/uL POC Glucose (mg/dL) 136 H 143 H 133 H (75-99) mg/dL 11/10/19 11/10/19 Range/Units 05:46 06:19 WBC 13.2 H (3.8-10.6) k/uL RBC 2.48 L (4.30-5.90) m/uL Hgb 7.4 L (13.0-17.5) gm/dL Hct 23.9 L (39.0-53.0) % RDW 15.7 H (11.5-15.5) % Neutrophils # 9.3 H (1.3-7.7) k/uL Eosinophils # 1.5 H (0-0.7) k/uL POC Glucose (mg/dL) 103 H (75-99) mg/dL Microbiology - Last 24 Hours (Table) 11/04/19 06:47 Blood Culture - Final Blood No Growth after 144 hours 11/03/19 22:27 Blood Culture - Final Blood No Growth after 144 hours 11/04/19 22:26 Blood Culture - Preliminary Blood No Growth after 120 hours Assessment and Plan Assessment: Right sided neck pain and upper arm pain likely due to advanced spondylitic changes in the lower cervical spine. improving now. Fever, elevated CRP level and possible cervical discitis versus osteomyelitis. MRI of the C spine is negative, improving Elevated CRP level Intractable nausea vomiting. Possible gastritis. Improving. Recent antibiotic course for possible sepsis at [facility] Due to bilateral lower extremity cellulitis status post antibiotic course with PICC line complicated by DVT. Recent upper extremity DVT. Currently on Eliquis Pulmonary interstitial infiltrates unchanged from previous admission in September 2019 Coronary artery disease with history of stent placement History of back surgery Chronic bilateral lower acuity swelling due to venous insufficiency. Chronic CHF with diastolic dysfunction Diabetes type 2 insulin-dependent Obstructive sleep apnea on CPAP at home Morbid obesity with BMI 36.0 Chronic hypoxic respiratory failure secondary to COPD History of TIAs History of nonsustained V. tach Osteoarthritis GERD Hyperlipidemia DVT prophylaxis patient is already on anticoagulation Plan: Patient to continue current IV antibiotics in the form of cefepime. Infectious disease following. Patient will likely transition to oral antibiotics upon discharge. Patient underwent a WBC scan today and currently awaiting report. Blood sugars being monitored closely and patient is maintained on sliding scale only. Encouraged increased activity as tolerated along with increasing oral intake. Pain management following recommending no surgical interventions at this time. Due to multiple complex medical issues, prognosis is guarded. Further recommendations to follow. Will repeat a.m. labs. Case management and social work following working on possible ECF placement for continued PT/OT therapy. Awaiting for accepting facility and patient may likely need an authorization through insurance. Possible discharge in 24-48 hours
[2019-11-10] MEDS ORDERED: HYDROmorphone 1 MG/ML 1 ML SYRINGE IVP STA (15:47)
[2019-11-10 17:00] LABS: Glucose,Whole Blood 171 mg/dL (75-99)
--- NOTE | 2019-11-10 17:54 | PN ---
PROGRESS NOTE DATE OF SERVICE: 11/10/2019 REASON FOR FOLLOWUP: Leukocytosis and fever, unknown source. INTERVAL HISTORY: The patient is currently afebrile. The patient has been complaining of hurting all over. The patient denies having any headache. No chest pain, shortness of breath or cough. No nausea or vomiting. No abdominal pain. No diarrhea. Overall swelling to the lower extremities is slightly decreased. He has been complaining of pain to bilateral hand area. PHYSICAL EXAMINATION: Blood pressure 140/70 with a pulse of 91, temperature 98. He is 95% on 4 L nasal cannula. General description is an elderly male up in the bed in no distress. RESPIRATORY SYSTEM: Unlabored breathing with decreased breath sounds at the base. No wheeze. HEART: S1, S2. Regular rate and rhythm. ABDOMEN: Soft. No tenderness. LABS: Hemoglobin 7.4, white count 13.8. BUN of 15, creatinine 0.75. Blood culture has been negative. The WBC scan is currently pending. DIAGNOSTIC IMPRESSION AND PLAN: Patient with fever and leukocytosis in this patient who did have extensive workup and no obvious clinical focus of infection. The patient's fever has resolved. White count is still elevated. So far workup is pointing towards possible cystitis in this patient. Do not have any requiring Finch catheter placement. However, his UA was negative. We will repeat a UA, wait for WBC scan, add oral Flagyl. Repeat CBC and inflammatory markers tomorrow and continue with supportive care. MMODL / IJN: [id number] /
[2019-11-10] MEDS: metroNIDAZOLE 500 MG TAB PO SCH ×2 (19:26→20:05)
[2019-11-10] MEDS: SODIUM CHLORIDE 0.9% 1,000 ML IV SCH (19:27)
[2019-11-10] MEDS: PANTOPRAZOLE 40 MG TABLET PO SCH (20:05)
[2019-11-10] MEDS: TAMSULOSIN 0.4 MG CAP.ER.24H PO SCH (20:05)
[2019-11-10] MEDS: PRAMIPEXOLE 1 MG TAB PO SCH (20:05)
[2019-11-10 20:39] LABS: Glucose,Whole Blood 114 mg/dL (75-99)
[2019-11-11] MEDS: CEFEPIME 2 GM in SODIUM CHLORIDE 0.9% 100 ML IVPB SCH ×2 (00:37→11:35)
[2019-11-11] MEDS: oxyCODONE-APAP 10-325MG 1 EACH TAB PO PRN ×3 (01:53→13:19)
[2019-11-11] MEDS: ASPIRIN 325 MG TAB PO SCH (07:14)
[2019-11-11] MEDS: METOPROLOL TARTRATE 25 MG TAB PO SCH ×2 (07:14→23:04)
[2019-11-11] MEDS: APIXABAN 5 MG TAB PO SCH ×2 (07:14→23:04)
[2019-11-11] MEDS: ATORVASTATIN 80 MG TAB PO SCH (07:14)
[2019-11-11] MEDS: GABAPENTIN 100 MG CAP PO SCH ×3 (07:14→23:04)
[2019-11-11] MEDS: POTASSIUM CHLORIDE ER 20 MEQ TAB.ER PO SCH ×2 (07:15→23:04)
[2019-11-11] MEDS: FUROSEMIDE 10 MG/ML 2 ML VIAL IV SCH ×2 (07:15→23:04)
[2019-11-11] MEDS: metroNIDAZOLE 500 MG TAB PO SCH ×3 (07:15→23:04)
[2019-11-11] MEDS: SODIUM CHLORIDE 0.9% 1,000 ML IV SCH (07:16)
[2019-11-11] MEDS: INSULIN ASPART (NovoLOG) 100 UNIT/ML VIAL SQ SCH ×5 (07:16→22:49)
[2019-11-11 07:38] LABS: Glucose,Whole Blood 108 mg/dL (75-99)
[2019-11-11] MEDS: SYMBICORT 80-4.5 MCG INHALER INHALATION SCH ×2 (08:17→21:17)
[2019-11-11 08:34] LABS: Appearance,Urine Cloudy (Clear); Bacteria,Urine Rare /hpf; Bilirubin,Urine Negative (Negative); Blood,Urine Small (Negative); Color,Urine Yellow; Glucose,Urine (UA) Negative (Negative); Ketones,Urine Negative (Negative); Leukocyte Esterase,Urine Small (Negative); Mucus,Urine Rare /hpf; Nitrite,Urine Negative (Negative); Protein,Urine 1+ (Negative); RBC,Urine 6 /hpf (0-5); Specific Gravity,Urine 1.016 (1.001-1.035); Urobilinogen,Urine <2.0 mg/dL (<2.0); WBC,Urine 5 /hpf (0-5)
[2019-11-11 09:38] LABS: African American GFR (CKD) >90 (>60 ml/min/1.73 sqM); Anion Gap 8 mmol/L; Blood Urea Nitrogen 15 mg/dL (9-20); Calcium 8.9 mg/dL (8.4-10.2); Carbon Dioxide 26 mmol/L (22-30); Chloride 104 mmol/L (98-107); Glucose 141 mg/dL (74-99); Non-African American GFR(CKD) >90 (>60 ml/min/1.73 sqM); Potassium 4.1 mmol/L (3.5-5.1); Sodium 138 mmol/L (137-145)
[2019-11-11 09:47] LABS: Basophils # (A) 0.2 k/uL (0-0.2); Basophils % (A) 1 %; Eosinophils # (A) 1.3 k/uL (0-0.7); Eosinophils % (A) 7 %; HGB 8.2 gm/dL (13.0-17.5); Hypochromasia Slight; Lymphocytes # (A) 1.9 k/uL (1.0-4.8); Lymphocytes % (A) 11 %; MCHC 31.6 g/dL (31.0-37.0); MCV 94.9 fL (80.0-100.0); Mean Platelet Volume 8.7; Monocytes # (A) 1.4 k/uL (0-1.0); Monocytes % (A) 8 %; Neutrophils # (A) 12.1 k/uL (1.3-7.7); Neutrophils % (A) 71 %; Platelet Count 440 k/uL (150-450); RBC 2.73 m/uL (4.30-5.90); WBC 17.1 k/uL (3.8-10.6)
[2019-11-11] MEDS ORDERED: VANCOMYCIN IV PER PHARMACY 1 EACH MISC MISCELLANE PRN (10:53)
[2019-11-11 11:26] LABS: Glucose,Whole Blood 173 mg/dL (75-99)
[2019-11-11] MEDS: IPRATROPIUM-ALBUTEROL 3 ML NEB INHALATION PRN ×2 (11:40→21:17)
[2019-11-11] MEDS: VANCOMYCIN 1,750 MG in SODIUM CHLORIDE 0.9% 500 ML 500 ML IVPB ONE ×3 (12:41→13:17)
[2019-11-11] MEDS ORDERED: HYDROmorphone 1 MG/ML 1 ML SYRINGE IVP STA (15:52)
[2019-11-11 17:20] LABS: Glucose,Whole Blood 109 mg/dL (75-99)
--- NOTE | 2019-11-11 17:35 | PN ---
PROGRESS NOTE DATE OF SERVICE: 11/11/2019 REASON FOR FOLLOWUP: Fever and leukocytosis; unknown source. INTERVAL HISTORY: The patient is currently afebrile. The patient is breathing comfortably. He is still complaining of generalized body aches and pains, mostly in his joints of the wrist and the hands. Currently there is no swelling or redness. The patient denies having any chest pain, shortness of breath or cough. No nausea, no vomiting. No abdominal pain or diarrhea. PHYSICAL EXAMINATION: Blood pressure 144/68 with a pulse of 92, temperature 98. He is 94% on room air. General description is an elderly male up in the chair in no distress. RESPIRATORY SYSTEM: Unlabored breathing. Clear to auscultation anteriorly. HEART: S1, S2. Regular rate and rhythm. ABDOMEN: Soft. No tenderness. EXTREMITIES: 2+ edema of feet. Bilateral wrist areas: currently no significant swelling or redness. LABS: Hemoglobin 8.8, white count 17.1, BUN of 15, creatinine 0.79. DIAGNOSTIC IMPRESSION AND PLAN: Patient with a fever initially which has resolved. However, the patient did have elevated white count. The patient did have extensive workup, including MRI of the cervical spine and CT of abdomen and pelvis that was suspicious for cystitis. However, the patient's UA was negative. We did order a WBC scan, which is still pending. The patient's white count has jumped up to 17. We will add vancomycin to cefepime and Flagyl regimen. However, with extensive workup and still no clear focus for his elevated white count and fever, the patient may benefit from transfer to tertiary care. This was discussed with the nurse practitioner as well as with the admitting physician. MMODL / IJN: [id number] /
[2019-11-11 20:58] LABS: Glucose,Whole Blood 100 mg/dL (75-99)
[2019-11-11] MEDS ORDERED: VANCOMYCIN 1,750 MG in SODIUM CHLORIDE 0.9% 500 ML 500 ML IVPB SCH (21:00)
[2019-11-11] MEDS: PANTOPRAZOLE 40 MG TABLET PO SCH (23:04)
[2019-11-11] MEDS: TAMSULOSIN 0.4 MG CAP.ER.24H PO SCH (23:04)
[2019-11-11] MEDS: PRAMIPEXOLE 1 MG TAB PO SCH (23:06)
--- NOTE | 2019-11-12 00:21 | NM ---
EXAMINATION TYPE: NM WBC whole body DATE OF EXAM: 11/11/2019 COMPARISON: NONE HISTORY: Fever TECHNIQUE: Following administration of 19.8 mCi Tc99m Ceretec. Images obtained 4 hour(s) and 26.5 h our(s) post injection. FINDINGS: There is evidence of an enlarged spleen. Uptake in the liver and spleen is normal. There is increased uptake in the proximal metaphysis of the left humerus. There is decreased activity in both humeral heads. On the right side the patient has a prosthesis. On the left side is not clear if there is a prosthesis. There is some increased uptake along the shaft of the proximal left and right femur. This could relat e to increased hematopoiesis. There appears to be some increased uptake at the lower lateral right lung base above the liver within the right lower lobe. IMPRESSION: Increased uptake proximal left humeral metaphysis. This should be correlated with any history of shou lder surgery. If there is no left shoulder surgery then shoulder x-rays recommended. Mildly increased uptake at the lateral right lung base above the liver could relate to pneumonia and pyogenic infection and repeat chest x-ray is recommended for correlation.
[2019-11-12] MEDS: VANCOMYCIN 1,500 MG in SODIUM CHLORIDE 0.9% 250 ML IVPB SCH ×2 (00:55→11:44)
[2019-11-12] MEDS: CEFEPIME 2 GM in SODIUM CHLORIDE 0.9% 100 ML IVPB SCH ×2 (00:55→11:44)
[2019-11-12] MEDS: oxyCODONE-APAP 10-325MG 1 EACH TAB PO PRN ×4 (01:13→20:57)
[2019-11-12 07:05] LABS: Glucose,Whole Blood 116 mg/dL (75-99)
[2019-11-12] MEDS: INSULIN ASPART (NovoLOG) 100 UNIT/ML VIAL SQ SCH ×4 (07:44→20:50)
[2019-11-12] MEDS: SYMBICORT 80-4.5 MCG INHALER INHALATION SCH ×2 (07:57→19:45)
--- NOTE | 2019-11-12 08:11 | P.PN ---
Subjective Progress Note Date: 11/11/19 Principal diagnosis: neck pain and Shoulder pain Patient is a 69-year-old male with a known history of chronic neck pain, coronary artery disease history of stent placement, chronic CHF with diastolic dysfunction, hypertension, hyperlipidemia, diabetes type 2 insulin-dependent m orbid obesity and obstructive sleep apnea who was recently admitted to [facility] with generalized body aches. Patient was also recently discharged from [facility] and was treated for possible sepsis with unknown etiology. Patient was discharged on IV antibiotics and change to oral antibiotics in the form of Zyvox and due to complication of DVT in the left upper extremity. Patient is currently on Eliquis twice daily. Patient was recently discharged from the hospital on 09/22/2019 with a course of antibiotics in the form of Levaquin due to diffuse interstitial infiltrates. Patient presents to ER with complaints of neck pain mainly on the right side radiating down his shoulder and right arm. Patient is unable to move his right completely. Patient also complaining of right arm numbness as well. Denied any complaints of fever or chills. No chest pain or worsening shortness of breath. Patient does have chronic bilateral lower extremity swelling currently on Lasix at home by [facility]. CT angiogram of the chest showed no evidence of pulmonary embolism. There is s ome patchy atelectasis atelectasis in the lung base not significantly different from present exam. No suspicious pulmonary mass. Stable mild posterior pleural scarring. CT cervical spine showed redemonstrated advanced spondylitic changes especially in the mid to lower cervical spine. Degenerative grade 1 anterolisthesis at C4, C5 and focal kyphotic deformity. Variable neural foraminal stenosis. Apparent thickening of the prevertebral soft tissue seems to correspond to retropharyngeal course of the internal carotid arteries rather than effusion or edema. Laboratory data showed WBC 9.8, hemoglobin 9.6 and platelets 249 D-dim[address] PE negative. Sodium 135, potassium 4.9, chloride 100, BUN 15 and creatinine 1.09 Blood sugar was 61 on admission CRP is 198.6 Albumin 3.3 patient was afebrile on but tachycardic with heart rate around 115 11/04/2019 Patient is currently sitting in the chair but still complaining of neck pain and is right-hand clenched towards the chest. Patient does not have any fever or chills this morning. No nausea vomiting or abdominal pain. No diarrhea. Patient is refusing IV Lasix saying that he was told that it is not good for his kidneys. Laboratory data showed WBC 11.3, hemoglobin 9.1 platelets 214 CRP level is 267 today. Currently on antibiotics in the form of Zyvox. ID is following. Awaiting records from the [facility]. 11/05/2019 Patient is still complaining of neck pain and pain down to the shoulders bilaterally. Patient was agitated and confused last night. Also developed fever. Zyvox was changed to vancomycin. MRI of the spine was ordered and ID is following. Patient was febrile last night. Follow up on cultures. Otherwise patient is being continued on an management. Neck orthopedic surgery and ID is following. Discussed with his at bedside in detail. Aberrantly patient was treated for possible sepsis secondary to bilateral lower activity cellulitis and was started on antibiotics with PICC line. Patient developed DVT of the right upper extremity and antibiotics were changed to Zyvox. Patient was started on Eliquis for anti-coagulation at [facility]. 11/05/2016 Patient is currently lying in the bed comfortable. Still complaining of neck pain and shoulder pains. Patient has been afebrile now. MRI of the cervical spine showed no evidence of discitis or osteoarthritis. No other evidence of septic foci was noted this time. Patient is currently on vancomycin and was started on cefepime. Follow up on blood cultures. ID is following. CT of abdomen pelvis was ordered. Patient otherwise denied any complaints of chest pain or shortness of breath. No cough or sputum production. Patient did have nausea. No episodes of vomiting. No diarrhea. 11/06/2017 Patient was initially admitted to the hospital with intractable neck pain down to the bilateral shoulders. MRI was done to rule out discitis and osteomyelitis. Negative at this time. Patient was febrile and leukocytosis with WBC count 13.5. CT of the abdomen pelvis was done to to evaluate for possible source of i nfection. ID is following. Patient is currently lying in the bed comfortably. Neck pain is better. Otherwise patient has been having nausea vomiting and abdominal discomfort mainly in the epigastric region. Laboratory data showed WBC 13.5, hemoglobin 7.3 and platelets 143. Discussed with his at bedside in detail. Orthopedic surgery and ID and pain management service is following. Currently maintained on antibiotics in the form of vancomycin and cefepime. current medications reviewed. 11/08/2019 Patient is seen and evaluated and follow-up currently sitting up in the chair attempting to eat some lunch. Patient continues to have some nausea with vomiting and family is at the bedside. Patient is maintained on IV antibiotics in the form of vancomycin and cefepime and will continue at this time. Infectious disease is following. Orthopedic surgery pain management is following recommending no surgical interventions at this time. Patient underwent CT abdomen showing fluid overload with anasarca with small pleural effusions and patchy groundglass in the lower lungs suggestive of pulmonary vascular congestion, confluent strandy densities in the lower retroperitoneum tracking down into the adnexa and presacral region, inflammation up from the bladder with possible cystitis, contrast noted within the lower esophagus suggesting GERD or esophageal dysmotility, and some mild left-sided colonic diverticulosis without any evidence of acute diverticulitis. Patient is continued on 4 L of oxygen via nasal cannula and denies any current chest pain or shortness of breath. Patient has been afebrile for over 24 hours. White blood count slowly trending down at 11.6. Hemoglobin is 7.8 with no active bleeding noted. Creatinine is 1.00, and CRP slowly trending down at 331.9. Blood sugars on the lower side and will discontinue long-acting and continue with sliding scale and monitor closely. 11/09/2019 Patient seen in follow up today with no acute overnight issues noted. Patient denies any nausea or vomiting and has tolerated diet. Patient currently remains on IV antibiotics in the form of cefepime and vanco has been discontinued. Patient is afebrile. Patient generalized edema continues to improve. Discussed with the patient about discharge planning needs and although doesn't want to go to rehab is agreeable for continued PT/OT therapy as patient continues to be rosa isela te weak and PT/OT recommending [facility] upon discharge. Social work following and working on accepting facilities along with insurance authorization. Blood sugars being closely monitored. 11/10/2019 Patient is seen and evaluated in follow-up today and is maintained on IV antibiotics in the form of cefepime. Blood cultures continue to be negative. Patient's white blood count today slightly trending up at 13.2. Patient is scheduled to undergo a WBC scan and awaiting report. No acute overnight events noted. Patient's blood sugars can continue to be well controlled as patient is maintained on sliding scale at this time. Long-acting continues to be on hold. Patient's hemoglobin today is 7.4 with no active bleeding noted. Review of systems: Constitutional: Reports fatigue with no reports of fevers or chills Cardiovascular: No reports of chest pain or palpitations Respiratory: Reports some mild shortness of breath on occasion, no reports of cough GI: No reports of nausea, vomiting, or diarrhea : No reports of dysuria or retention, indwelling Finch catheter noted Neurovascular: Reports weakness, no reports of numbness All medications have been reviewed. 11/11/2019 Patient is seen and evaluated and follow-up currently underwent WBC scan and is to complete the scan this evening. Awaiting report. White blood count trending up and is currently 17.1 and was maintained on IV cefepime and vancomycin was added. Infectious disease is following. Patient continues to be weak and le thargic although arousable. At the bedside concerned with his back pain which is chronic in nature. Patient was seen and evaluated by Dr. Grier commending no surgical interventions at this time and to continue with medical management. Patient currently denies any chest pain, shortness of breath, or palpitations. Patient is currently resting comfortably on room air in the chair with bilateral lower extremities elevated. PT/OT following in case management and social work also following unexpected go to [facility] for continued PT/OT therapy for strength and mobility. Will await WBC scan report and continue to monitor closely. Objective - Vital Signs Vital signs: Vital Signs Temp 98.3 F 11/11/19 07:18 Pulse 88 11/11/19 11:53 Resp 16 11/11/19 07:18 BP 128/63 11/11/19 07:18 Pulse Ox 92 L 11/11/19 07:18 Intake & Output 11/10/19 11/11/19 11/11/19 18:59 06:59 18:59 Intake Total 360 520 Output Total 2250 1800 Balance -1890 -1280 Weight 102.5 kg 97 kg Intake: Intake, IV Titration 340 Amount Cefepime 2 gm In Sodium 100 Chloride 0.9% 100 ml @ 25 mls/hr IVPB Q12HR@0000, 1200 JOSE Rx#:[id number] Sodium Chloride 0.9% 1, 240 000 ml @ 20 mls/hr IV . Q24H JOSE Rx#:[id number] Oral 360 180 Output: Urine 2250 1800 Other: Voiding Method Indwelling Catheter Indwelling Catheter Indwelling Catheter # Voids 1 1 - Exam Patient is sitting up in the chair, lethargic although easily arousable, alert and oriented 3, well-developed, well-nourished, obese. HEENT: Normocephalic. Neck is supple. Pupils reactive. Nostrils clear. Oral cavity is moist. Ears reveal no drainage. Neck reveals no JVD, carotid bruits, or thyromegaly. CHEST EXAMINATION: Trachea is central. Symmetrical expansion. Bibasilar crackles and no wheezing. Nonlabored breathing.. CARDIAC: Normal S1, S2 with no gallops. No murmurs ABDOMEN: Soft. Bowel sounds normal. No organomegaly. No abdominal bruits. Extremities: Bilateral lower extremity 1+ edema. No clubbing or cyanosis, improved Neurologically alert, oriented x3 with well-coordinated movements. No focal deficits noted Skin: No rash or skin lesions. Psychiatric: Cooperative. Non-suicidal Musculoskeletal: No joint swelling or deformity. Normal range of motion. - Labs CBC & Chem 7: 11/11/19 09:07 11/11/19 09:07 Labs: Abnormal Lab Results - Last 24 Hours (Table) 11/10/19 11/10/19 11/11/19 Range/Units 16:58 20:37 07:16 WBC (3.8-10.6) k/uL RBC (4.30-5.90) m/uL Hgb (13.0-17.5) gm/dL Hct (39.0-53.0) % RDW (11.5-15.5) % Neutrophils # (1.3-7.7) k/uL Monocytes # (0-1.0) k/uL Eosinophils # (0-0.7) k/uL Glucose (74-99) mg/dL POC Glucose (mg/dL) 171 H 114 H 108 H (75-99) mg/dL Urine Protein (Negative) Urine Blood (Negative) Ur Leukocyte Esterase (Negative) Urine RBC (0-5) /hpf Urine Bacteria (None) /hpf Urine Mucus (None) /hpf 11/11/19 11/11/19 11/11/19 Range/Units 08:10 09:07 09:07 WBC 17.1 H (3.8-10.6) k/uL RBC 2.73 L (4.30-5.90) m/uL Hgb 8.2 L (13.0-17.5) gm/dL Hct 26.0 L (39.0-53.0) % RDW 16.0 H (11.5-15.5) % Neutrophils # 12.1 H (1.3-7.7) k/uL Monocytes # 1.4 H (0-1.0) k/uL Eosinophils # 1.3 H (0-0.7) k/uL Glucose 141 H (74-99) mg/dL POC Glucose (mg/dL) (75-99) mg/dL Urine Protein 1+ H (Negative) Urine Blood Small H (Negative) Ur Leukocyte Esterase Small H (Negative) Urine RBC 6 H (0-5) /hpf Urine Bacteria Rare H (None) /hpf Urine Mucus Rare H (None) /hpf 11/11/19 Range/Units 11:12 WBC (3.8-10.6) k/uL RBC (4.30-5.90) m/uL Hgb (13.0-17.5) gm/dL Hct (39.0-53.0) % RDW (11.5-15.5) % Neutrophils # (1.3-7.7) k/uL Monocytes # (0-1.0) k/uL Eosinophils # (0-0.7) k/uL Glucose (74-99) mg/dL POC Glucose (mg/dL) 173 H (75-99) mg/dL Urine Protein (Negative) Urine Blood (Negative) Ur Leukocyte Esterase (Negative) Urine RBC (0-5) /hpf Urine Bacteria (None) /hpf Urine Mucus (None) /hpf Microbiology - Last 24 Hours (Table) 11/04/19 22:26 Blood Culture - Final Blood No Growth after 144 hours 11/04/19 06:47 Blood Culture - Final Blood No Growth after 144 hours Assessment and Plan Assessment: Right sided neck pain and upper arm pain likely due to advanced spondylitic changes in the lower cervical spine. improving now. Fever, elevated CRP level and possible cervical discitis versus osteomyelitis. MRI of the C spine is negative, improving Elevated CRP level Intractable nausea vomiting. Possible gastritis. Improving. Recent antibiotic course for possible sepsis at [facility] Due to bilateral lower extremity cellulitis status post antibiotic course with PICC line complicated by DVT. Recent upper extremity DVT. Currently on Eliquis Pulmonary interstitial infiltrates unchanged from previous admission in September 2019 Coronary artery disease with history of stent placement History of back surgery Chronic bilateral lower acuity swelling due to venous insufficiency. Chronic CHF with diastolic dysfunction Diabetes type 2 insulin-dependent Obstructive sleep apnea on CPAP at home Morbid obesity with BMI 36.0 Chronic hypoxic respiratory failure secondary to COPD History of TIAs History of nonsustained V. tach Osteoarthritis GERD Hyperlipidemia DVT prophylaxis patient is already on anticoagulation Plan: Patient to continue current IV antibiotics in the form of cefepime and vancomycin was added as patient's WBC count is elevated at 17.1 today. Infectious disease following. Patient to undergo an complete a WBC scan today and currently awaiting report. Blood sugars being monitored closely and patient is maintained on sliding scale only. Encouraged increased activity as tolerated along with increasing oral intake. Pain management following recommending no surgical interventions at this time. Due to multiple complex medical issues, prognosis is guarded. Further recommendations to follow. Will repeat a.m. labs. Case management and social work following working on possible ECF placement for continued PT/OT therapy. Awaiting for accepting facility and patient may likely need an authorization through insurance.
[2019-11-12] MEDS: METOPROLOL TARTRATE 25 MG TAB PO SCH ×2 (08:19→20:50)
[2019-11-12] MEDS: APIXABAN 5 MG TAB PO SCH ×2 (08:19→20:50)
[2019-11-12] MEDS: metroNIDAZOLE 500 MG TAB PO SCH ×3 (08:19→20:50)
[2019-11-12] MEDS: ASPIRIN 325 MG TAB PO SCH (08:19)
[2019-11-12] MEDS: FUROSEMIDE 10 MG/ML 2 ML VIAL IV SCH ×2 (08:19→20:50)
[2019-11-12] MEDS: GABAPENTIN 100 MG CAP PO SCH ×3 (08:19→20:50)
[2019-11-12] MEDS: POTASSIUM CHLORIDE ER 20 MEQ TAB.ER PO SCH ×2 (08:19→20:50)
[2019-11-12] MEDS: ATORVASTATIN 80 MG TAB PO SCH (08:19)
[2019-11-12] MEDS: SODIUM CHLORIDE 0.9% 1,000 ML IV SCH (08:20)
[2019-11-12 09:51] LABS: HCT 25.4 % (39.0-53.0); HGB 8.2 gm/dL (13.0-17.5); MCHC 32.2 g/dL (31.0-37.0); MCV 93.4 fL (80.0-100.0); Mean Platelet Volume 8.2; Platelet Count 498 k/uL (150-450); RBC 2.71 m/uL (4.30-5.90); RDW 15.8 % (11.5-15.5)
[2019-11-12 10:02] LABS: African American GFR (CKD) >90 (>60 ml/min/1.73 sqM); Anion Gap 8 mmol/L; Blood Urea Nitrogen 14 mg/dL (9-20); Calcium 9.1 mg/dL (8.4-10.2); Carbon Dioxide 27 mmol/L (22-30); Chloride 102 mmol/L (98-107); Glucose 128 mg/dL (74-99); Non-African American GFR(CKD) >90 (>60 ml/min/1.73 sqM); Potassium 4.1 mmol/L (3.5-5.1); Sodium 137 mmol/L (137-145)
[2019-11-12 10:36] LABS: C Reactive Protein 230.6 mg/L (<10.0)
[2019-11-12] MEDS ORDERED: HYDROmorphone 1 MG/ML 1 ML SYRINGE IVP STA (11:34)
[2019-11-12 11:45] LABS: Glucose,Whole Blood 164 mg/dL (75-99)
[2019-11-12 12:13] LABS: Eosinophils # (M) 0.98 k/uL (0-0.7); Lymphocytes # (M) 1.12 k/uL (1.0-4.8); Metamyelocytes # (M) 0.14 k/uL (0); Metamyelocytes % 1 %; Monocytes # (M) 1.12 k/uL (0-1.0); Myelocytes # (M) 0.28 k/uL (0); Myelocytes % 2 %; Neutrophils # (M) 10.64 k/uL (1.3-7.7); Neutrophils % (M) 76 %; Nucleated Red Blood Cells 0 /100 WBC (0-0); Total Cells Counted 200
[2019-11-12 12:14] LABS: Large Platelets Present; Poikilocytosis (M) Present; Polychromasia Present
[2019-11-12 12:15] LABS: Mixed Population RBC Present
--- NOTE | 2019-11-12 12:31 | CT ---
EXAMINATION TYPE: CT chest wo con DATE OF EXAM: 11/12/2019 COMPARISON: November 03, 2019 HISTORY: pneumonia CT DLP: 646.[address] of the chest was performed with lung and mediastinal window settings submitted. The la ck of contrast limits evaluation of the vascular, mediastinal and parenchymal structures including th e upper abdomen. LUNGS: Scattered groundglass infiltrates are now identified. Basilar atelectasis or airspace consolid ation with small effusions. Correlate for underlying pneumonia. No pulmonary nodule or mass is detect ed. No CT evidence of interstitial lung disease. MEDIASTINUM/GORDON: Thoracic aorta is of normal caliber with limited evaluation given lack of contrast . The heart is not enlarged. No evidence for mediastinal mass. No lymph nodes greater than 1cm. UPPER ABDOMEN: No significant abnormality is seen. OTHER: No significant other abnormality. IMPRESSION: 1. Scattered groundglass infiltrates are now identified. Basilar atelectasis or airspace consolidati on with small effusions. Correlate for underlying pneumonia.
[2019-11-12] MEDS ORDERED: HYDROmorphone 1 MG/ML 1 ML SYRINGE IVP ONE (13:00)
--- NOTE | 2019-11-12 13:17 | P.CNOR ---
<Elaine Magallanes - Last Filed: 11/12/19 13:10> History of Present Illness - [facility] Consult date: 11/12/19 History of present illness: Patient is a very pleasant 69-year-old male well known to our service who is seen and examined for further evaluation to his cervical spine. He is known to have have significant degenerative changes at his cervical spine. He is known have chronic low back pain as well. He was recently seen in the outpatient setting for further evaluation. He has consulted with Dr. Browne in pain management and has a scheduled follow-up appointment on 11/09/2019. He is a surgical candidate in regards to his cervical spine if he were to fail all cons ervative conservative treatment options. Since being seen and examined he has not had any changes or recent accidents regards to his cervical spine. He does continue to have some cervical pain with pain radiating to the left shoulder. More recently he was recently admitted to [facility] after he states he started to feel ill and had difficulty with urination. He was taken there after recommendations by his family. He states he was inpatient at the hospital from 10/16/2019 till 10/23/2019 after he was found to have sepsis. He had a PICC line placement and had difficulty with his PICC line placement. He took 3 PICC line placements to have adequate placement of a PICC line. Subsequently the last PICC line was discontinued and he was started on oral antibiotic medication. He states due to the PICC line he developed a blood clot in the right shoulder/upper extremity. he recently had MRI workup for possible discitis in the cervical spine. MRI showed degenerative changes but no evidence of infection. He continues to have elevated white count and elevated CRP. A whole-body White blood cellbone scan was ordered which did show increased uptake in the proximal humerus of the left shoulder.we are reconsult us for orthopedic evaluation of the left shoulder. Th e patient states that he does have some shoulder pain but has not noticed problem with motion of the shoulder. He reports no recent trauma or injury to his left shoulder. Past Medical History Past Medical History: Coronary Artery Disease (CAD), Chest Pain / Angina, Heart Failure, COPD, GERD/Reflux, Hyperlipidemia, Hypertension, Osteoarthritis (OA), Pneumonia, Prostate Disorder, Respiratory Disorder, Sleep Apnea/CPAP/BIPAP Additional Past Medical History / Comment(s): Spondylolsis, cervical and low back pain, DDD, chronic respiratory failure, CALLI with Cpap/O2 at 4L/NC at HS, nonsustained vtach, TIAs, small vessel disease, IDDM type II, diverticular disease, colon polyps-benign, sinus problems, seasonal allergies, sepsis History of Any Multi-Drug Resistant Organisms: None Reported Past Surgical History: Back Surgery, Heart Catheterization With Stent, Joint Replacement, Orthopedic Surgery Additional Past Surgical History / Comment(s): Bilateral knee arthroscopies, total L knee arthroplasty, R total shoulder arthroplasty, L hand injury with repair, PCI with 3 stents, colonoscopies/polypectomies, lumbar epidural injections, bilateral cataract removals/lens implants. Past Anesthesia/Blood Transfusion Reactions: No Reported Reaction Additional Past Anesthesia/Blood Transfusion Reaction / Comm: STATES "HAD A HARD TIME WITH BREATHING POST OP" Date of Last Stent Placement:: 2009 Past Psychological History: No Psychological Hx Reported Smoking Status: Never smoker Past Alcohol Use History: None Reported Past Drug Use History: None Reported - Past Family History Father Family Medical History: CVA/TIA, Hyperlipidemia, Hypertension Mother Family Medical History: Hypertension Medications and Allergies Home Medications Medication Instructions Recorded Confirmed Type Nitroglycerin Sl Tabs [Nitrostat] 0.4 mg SUBLINGUAL Q5M PRN 03/09/14 11/03/19 History Omeprazole [PriLOSEC] 20 mg PO HS 03/09/14 11/03/19 History Atorvastatin [Lipitor] 80 mg PO DAILY 05/08/15 11/03/19 History Tamsulosin HCl [Flomax] 0.4 mg PO HS 10/09/16 11/03/19 History Fluticasone/Vilanterol [Breo 1 puff INHALATION RT-DAILY 03/12/18 11/03/19 History Ellipta 100-25 Mcg Inhaler] Potassium Chloride ER [K-Dur 20] 20 meq PO BID #0 03/15/18 11/03/19 Rx Aspirin 325 mg PO DAILY 09/02/19 11/03/19 History Glimepiride [Amaryl] 2 mg PO AC-BRKFST 09/02/19 11/03/19 History Ipratropium-Albuterol Nebulize 3 ml INHALATION RT-QID PRN 09/02/19 11/03/19 History [Duoneb 0.5 mg-3 mg/3 ml Soln] Metoprolol Tartrate 25 mg PO BID 09/02/19 11/03/19 History Pramipexole Di-HCl [Mirapex] 1 mg PO DAILY 09/02/19 11/03/19 History INSULIN ASPART (NovoLOG) [NovoLOG 15 unit SQ AC-TID #1 vial 09/22/19 11/03/19 Rx (formulary)] Insulin Glargine [Lantus] 50 unit SQ HS #0 09/22/19 11/03/19 Rx Apixaban [Eliquis] 5 mg PO BID 11/01/19 11/03/19 History Furosemide [Lasix] 20 mg PO BID 11/01/19 11/03/19 History Ketoconazole [Ketoconazole 2% 1 applic TOPICAL Q72H 11/01/19 11/03/19 History Shampoo] Linezolid 600 mg PO Q12H 11/01/19 11/03/19 History oxyCODONE-APAP 7.5-325MG [Percocet 1 tab PO QID PRN 11/01/19 11/03/19 History 7.5-325 mg] Allergies Allergy/AdvReac Type Severity Reaction Status Date / Time prednisone AdvReac Extreme Verified 11/03/19 07:54 aggression with high doses Physical Examination This is a pleasant 69-year-old male in no acute distress. He is alert and oriented 3. His is present at bedside. Exam of the head neck reveal no obvious deformity. There is minimal pain with the patient about cervical spine and paraspinal musculature. Exam the upper extremities reveal no obvious deformity. There is a small area of ecchymosis about the anterior left shoulder and upper chest. He has full forward flexion and abduction of the left shoulder. He has fairly good external rotation. There is slight limitation in internal rotation but is able to rotate to the sacrum. There is no pain on palpation about the shoulder or proximal humerus. Clavicles nontender to palpation. He has fairly good elbow, wrist and finger motion. Neurovascular status to the upper extremities intact. The remainder of his musculoskeletal exam is unremarkable. Results whole-body WBC bone scan shows increased uptake in the proximal humerus. No uptake to the joint itself. Slight uptake to the AC joint as well. - Labs Labs: Abnormal Lab Results - Last 24 Hours (Table) 0811/11/19 11/12/19 Range/Units 17:12 20:57 06:46 WBC (3.8-10.6) k/uL RBC (4.30-5.90) m/uL Hgb (13.0-17.5) gm/dL Hct (39.0-53.0) % RDW (11.5-15.5) % Plt Count (150-450) k/uL Neutrophils # (Manual) (1.3-7.7) k/uL Monocytes # (Manual) (0-1.0) k/uL Eosinophils # (Manual) (0-0.7) k/uL Metamyelocytes # (Man) (0) k/uL Myelocytes # (Manual) (0) k/uL Glucose (74-99) mg/dL POC Glucose (mg/dL) 109 H 100 H 116 H (75-99) mg/dL C-Reactive Protein (<10.0) mg/L 11/12/19 11/12/19 11/12/19 Range/Units 09:17 09:17 11:24 WBC 14.0 H (3.8-10.6) k/uL RBC 2.71 L (4.30-5.90) m/uL Hgb 8.2 L (13.0-17.5) gm/dL Hct 25.4 L (39.0-53.0) % RDW 15.8 H (11.5-15.5) % Plt Count 498 H (150-450) k/uL Neutrophils # (Manual) 10.64 H (1.3-7.7) k/uL Monocytes # (Manual) 1.12 H (0-1.0) k/uL Eosinophils # (Manual) 0.98 H (0-0.7) k/uL Metamyelocytes # (Man) 0.14 H (0) k/uL Myelocytes # (Manual) 0.28 H (0) k/uL Glucose 128 H (74-99) mg/dL POC Glucose (mg/dL) 164 H (75-99) mg/dL C-Reactive Protein 230.6 H (<10.0) mg/L H & H 11/03/19 11/04/19 11/05/19 Range/Units 04:55 06:47 06:56 Hgb 9.6 L 9.2 L 8.1 L (13.0-17.5) gm/dL Hct 29.6 L 28.1 L 24.8 L (39.0-53.0) % 11/05/19 11/06/19 11/07/19 Range/Units 14:05 06:03 06:26 Hgb 8.0 L 7.4 L 7.3 L (13.0-17.5) gm/dL Hct 24.7 L 23.6 L 23.2 L (39.0-53.0) % 11/08/19 11/09/19 11/10/19 Range/Units 06:18 05:49 05:46 Hgb 7.8 L 7.5 L 7.4 L (13.0-17.5) gm/dL Hct 24.2 L 24.3 L 23.9 L (39.0-53.0) % 11/11/19 11/12/19 Range/Units 09:07 09:17 Hgb 8.2 L 8.2 L (13.0-17.5) gm/dL Hct 26.0 L 25.4 L (39.0-53.0) % Result Diagrams: 11/12/19 09:17 11/12/19 09:17 Assessment and Plan (1) Cervical stenosis of spinal canal Current Visit: Yes Status: Acute Code(s): M48.02 - SPINAL STENOSIS, CERVICAL REGION SNOMED Code(s): 90618175 (2) Elevated C-reactive protein (CRP) Current Visit: Yes Status: Acute Code(s): R79.82 - ELEVATED C-REACTIVE PROTEIN (CRP) SNOMED Code(s): 542543687615875 (3) History of sepsis Current Visit: Yes Status: Acute Code(s): Z86.19 - PERSONAL HISTORY OF OTHER INFECTIOUS AND PARASITIC DISEASES SNOMED Code(s): 311464394338694 (4) Morbid obesity Current Visit: Yes Status: Acute Code(s): E66.01 - MORBID (SEVERE) OBESITY DUE TO EXCESS CALORIES SNOMED Code(s): 235738251 (5) Neck pain Current Visit: Yes Status: Acute Priority: Medium Code(s): M54.2 - CERVICALGIA SNOMED Code(s): 55722881 Plan: The clinical and bone scan findings are discussed with the patient and his . There is low clinical suspicion for a septic arthritis of the left shoulder at this time. He has essentially full range of motion of that shoulder. An MRI is ordered for definitive assessment of the shoulder and proximal humerus. We will await MRI results and make further recommendations as indicated at that time. <Jason Monzon - Last Filed: 11/12/19 20:11> Results - Labs Labs: Abnormal Lab Results - Last 24 Hours (Table) 11/11/19 11/12/19 11/12/19 Range/Units 20:57 06:46 09:17 WBC 14.0 H (3.8-10.6) k/uL RBC 2.71 L (4.30-5.90) m/uL Hgb 8.2 L (13.0-17.5) gm/dL Hct 25.4 L (39.0-53.0) % RDW 15.8 H (11.5-15.5) % Plt Count 498 H (150-450) k/uL Neutrophils # (Manual) 10.64 H (1.3-7.7) k/uL Monocytes # (Manual) 1.12 H (0-1.0) k/uL Eosinophils # (Manual) 0.98 H (0-0.7) k/uL Metamyelocytes # (Man) 0.14 H (0) k/uL Myelocytes # (Manual) 0.28 H (0) k/uL Glucose (74-99) mg/dL POC Glucose (mg/dL) 100 H 116 H (75-99) mg/dL C-Reactive Protein (<10.0) mg/L 11/12/19 11/12/19 11/12/19 Range/Units 09:17 11:24 16:50 WBC (3.8-10.6) k/uL RBC (4.30-5.90) m/uL Hgb (13.0-17.5) gm/dL Hct (39.0-53.0) % RDW (11.5-15.5) % Plt Count (150-450) k/uL Neutrophils # (Manual) (1.3-7.7) k/uL Monocytes # (Manual) (0-1.0) k/uL Eosinophils # (Manual) (0-0.7) k/uL Metamyelocytes # (Man) (0) k/uL Myelocytes # (Manual) (0) k/uL Glucose 128 H (74-99) mg/dL POC Glucose (mg/dL) 164 H 147 H (75-99) mg/dL C-Reactive Protein 230.6 H (<10.0) mg/L H & H 11/03/19 11/04/19 11/05/19 Range/Units 04:55 06:47 06:56 Hgb 9.6 L 9.2 L 8.1 L (13.0-17.5) gm/dL Hct 29.6 L 28.1 L 24.8 L (39.0-53.0) % 11/05/19 11/06/19 11/07/19 Range/Units 14:05 06:03 06:26 Hgb 8.0 L 7.4 L 7.3 L (13.0-17.5) gm/dL Hct 24.7 L 23.6 L 23.2 L (39.0-53.0) % 11/08/19 11/09/19 11/10/19 Range/Units 06:18 05:49 05:46 Hgb 7.8 L 7.5 L 7.4 L (13.0-17.5) gm/dL Hct 24.2 L 24.3 L 23.9 L (39.0-53.0) % 11/11/19 11/12/19 Range/Units 09:07 09:17 Hgb 8.2 L 8.2 L (13.0-17.5) gm/dL Hct 26.0 L 25.4 L (39.0-53.0) % Result Diagrams: 11/12/19 09:17 11/12/19 09:17 Assessment and Plan Plan: The case was discussed with YANY Magallanes; agree with above (amendments/corrections noted below). The patient was subsequently seen and examined by me as well. S: The patient was seen and examined. His is at bedside and provides additional history (he admits that he is a little confused at present). He reports a history of bilateral shoulder pain and previously underwent right total shoulder arthroplasty by Dr. Powers. He was told at that time that both shoulders were bad and would eventually need treatment. For 5-6 years, the shoulder was doing quite well, but it has been gradually worsening. He has been relying on the left shoulder more and they feel that he may have been overusing it. Presently, he states that the pain is not too bad. He reports more pain in his neck and forearm than in his shoulder. O: Full active range of motion in flexion and abduction. No pain or crepitus with active motion/circumduction. No tenderness to palpation. No pain with resisted abduction/elevation but some discomfort with resisted internal rotation. No pain with passive motion. Imaging: Various x-rays and CT studies from the past several days were reviewed. Narrowing & degenerative changes at the glenohumeral joint. No fractures. No effusion. Bone scan shows asymmetric uptake in the left proximal humerus, likely due to the patients contralateral TSA implant). Symmetric uptake at bilateral AC joints. A: Left glenohumeral arthritis History of right total shoulder arthroplasty Cervicalgia and left upper extremity radiculopathy Elevated inflammatory markers/acute phase reactants Multiple medical co-morbidities P: I reviewed the clinical and radiographic findings in detail with the patient has . His physical exam and description of his recent history makes septic arthritis extremely unlikely. The white cell scan findings could also indicate periarticular inflammation from bursitis, overuse or occult trauma. We discussed the relative merits of further investigation with advanced imaging (e.g., an MRI). In this setting, I feel that it would be of very low diagnostic value. The patient and his agree and do not feel it is necessary at the present time and would prefer to hold off. We may consider this in the future if he exhibits more evidence of focal shoulder pathology. Encouraged range of motion & activity as tolerated. We will continue to follow the patient periph erally. Please contact us with any questions or concerns. Thank you for allowing us to participate in the care of this patient. Jason Monzon D.O. [facility]
--- NOTE | 2019-11-12 14:23 | P.PN ---
Subjective Progress Note Date: 11/12/19 Principal diagnosis: neck pain and Shoulder pain Patient is a 69-year-old male with a known history of chronic neck pain, coronary artery disease history of stent placement, chronic CHF with diastolic dysfunction, hypertension, hyperlipidemia, diabetes type 2 insulin-dependent m orbid obesity and obstructive sleep apnea who was recently admitted to [facility] with generalized body aches. Patient was also recently discharged from [facility] and was treated for possible sepsis with unknown etiology. Patient was discharged on IV antibiotics and change to oral antibiotics in the form of Zyvox and due to complication of DVT in the left upper extremity. Patient is currently on Eliquis twice daily. Patient was recently discharged from the hospital on 09/22/2019 with a course of antibiotics in the form of Levaquin due to diffuse interstitial infiltrates. Patient presents to ER with complaints of neck pain mainly on the right side radiating down his shoulder and right arm. Patient is unable to move his right completely. Patient also complaining of right arm numbness as well. Denied any complaints of fever or chills. No chest pain or worsening shortness of breath. Patient does have chronic bilateral lower extremity swelling currently on Lasix at home by [facility]. CT angiogram of the chest showed no evidence of pulmonary embolism. There is s ome patchy atelectasis atelectasis in the lung base not significantly different from present exam. No suspicious pulmonary mass. Stable mild posterior pleural scarring. CT cervical spine showed redemonstrated advanced spondylitic changes especially in the mid to lower cervical spine. Degenerative grade 1 anterolisthesis at C4, C5 and focal kyphotic deformity. Variable neural foraminal stenosis. Apparent thickening of the prevertebral soft tissue seems to correspond to retropharyngeal course of the internal carotid arteries rather than effusion or edema. Laboratory data showed WBC 9.8, hemoglobin 9.6 and platelets 249 D-dimer [address] PE negative. Sodium 135, potassium 4.9, chloride 100, BUN 15 and creatinine 1.09 Blood sugar was 61 on admission CRP is 198.6 Albumin 3.3 patient was afebrile on but tachycardic with heart rate around 115 11/04/2019 Patient is currently sitting in the chair but still complaining of neck pain and is right-hand clenched towards the chest. Patient does not have any fever or chills this morning. No nausea vomiting or abdominal pain. No diarrhea. Patient is refusing IV Lasix saying that he was told that it is not good for his kidneys. Laboratory data showed WBC 11.3, hemoglobin 9.1 platelets 214 CRP level is 267 today. Currently on antibiotics in the form of Zyvox. ID is following. Awaiting records from the [facility]. 11/05/2019 Patient is still complaining of neck pain and pain down to the shoulders bilaterally. Patient was agitated and confused last night. Also developed fever. Zyvox was changed to vancomycin. MRI of the spine was ordered and ID is following. Patient was febrile last night. Follow up on cultures. Otherwise patient is being continued on an management. Neck orthopedic surgery and ID is following. Discussed with his at bedside in detail. Aberrantly patient was treated for possible sepsis secondary to bilateral lower activity cellulitis and was started on antibiotics with PICC line. Patient developed DVT of the right upper extremity and antibiotics were changed to Zyvox. Patient was started on Eliquis for anti-coagulation at [facility]. 11/05/2016 Patient is currently lying in the bed comfortable. Still complaining of neck pain and shoulder pains. Patient has been afebrile now. MRI of the cervical spine showed no evidence of discitis or osteoarthritis. No other evidence of septic foci was noted this time. Patient is currently on vancomycin and was started on cefepime. Follow up on blood cultures. ID is following. CT of abdomen pelvis was ordered. Patient otherwise denied any complaints of chest pain or shortness of breath. No cough or sputum production. Patient did have nausea. No episodes of vomiting. No diarrhea. 11/06/2017 Patient was initially admitted to the hospital with intractable neck pain down to the bilateral shoulders. MRI was done to rule out discitis and osteomyelitis. Negative at this time. Patient was febrile and leukocytosis with WBC count 13.5. CT of the abdomen pelvis was done to to evaluate for possible source of i nfection. ID is following. Patient is currently lying in the bed comfortably. Neck pain is better. Otherwise patient has been having nausea vomiting and abdominal discomfort mainly in the epigastric region. Laboratory data showed WBC 13.5, hemoglobin 7.3 and platelets 143. Discussed with his at bedside in detail. Orthopedic surgery and ID and pain management service is following. Currently maintained on antibiotics in the form of vancomycin and cefepime. current medications reviewed. 11/08/2019 Patient is seen and evaluated and follow-up currently sitting up in the chair attempting to eat some lunch. Patient continues to have some nausea with vomiting and family is at the bedside. Patient is maintained on IV antibiotics in the form of vancomycin and cefepime and will continue at this time. Infectious disease is following. Orthopedic surgery pain management is following recommending no surgical interventions at this time. Patient underwent CT abdomen showing fluid overload with anasarca with small pleural effusions and patchy groundglass in the lower lungs suggestive of pulmonary vascular congestion, confluent strandy densities in the lower retroperitoneum tracking down into the adnexa and presacral region, inflammation up from the bladder with possible cystitis, contrast noted within the lower esophagus suggesting GERD or esophageal dysmotility, and some mild left-sided colonic diverticulosis without any evidence of acute diverticulitis. Patient is continued on 4 L of oxygen via nasal cannula and denies any current chest pain or shortness of breath. Patient has been afebrile for over 24 hours. White blood count slowly trending down at 11.6. Hemoglobin is 7.8 with no active bleeding noted. Creatinine is 1.00, and CRP slowly trending down at 331.9. Blood sugars on the lower side and will discontinue long-acting and continue with sliding scale and monitor closely. 11/09/2019 Patient seen in follow up today with no acute overnight issues noted. Patient denies any nausea or vomiting and has tolerated diet. Patient currently remains on IV antibiotics in the form of cefepime and vanco has been discontinued. Patient is afebrile. Patient generalized edema continues to improve. Discussed with the patient about discharge planning needs and although doesn't want to go to rehab is agreeable for continued PT/OT therapy as patient continues to be rosa isela te weak and PT/OT recommending [facility] upon discharge. Social work following and working on accepting facilities along with insurance authorization. Blood sugars being closely monitored. 11/10/2019 Patient is seen and evaluated in follow-up today and is maintained on IV antibiotics in the form of cefepime. Blood cultures continue to be negative. Patient's white blood count today slightly trending up at 13.2. Patient is scheduled to undergo a WBC scan and awaiting report. No acute overnight events noted. Patient's blood sugars can continue to be well controlled as patient is maintained on sliding scale at this time. Long-acting continues to be on hold. Patient's hemoglobin today is 7.4 with no active bleeding noted. Review of systems: Constitutional: Reports fatigue with no reports of fevers or chills Cardiovascular: No reports of chest pain or palpitations Respiratory: Reports some mild shortness of breath on occasion, no reports of cough GI: No reports of nausea, vomiting, or diarrhea : No reports of dysuria or retention, indwelling Finch catheter noted Neurovascular: Reports weakness, no reports of numbness All medications have been reviewed. 11/11/2019 Patient is seen and evaluated and follow-up currently underwent WBC scan and is to complete the scan this evening. Awaiting report. White blood count trending up and is currently 17.1 and was maintained on IV cefepime and vancomycin was added. Infectious disease is following. Patient continues to be weak and le thargic although arousable. At the bedside concerned with his back pain which is chronic in nature. Patient was seen and evaluated by Dr. Grier commending no surgical interventions at this time and to continue with medical management. Patient currently denies any chest pain, shortness of breath, or palpitations. Patient is currently resting comfortably on room air in the chair with bilateral lower extremities elevated. PT/OT following in case management and social work also following unexpected go to [facility] for continued PT/OT therapy for strength and mobility. Will await WBC scan report and continue to monitor closely. 11/12/2019 Patient is seen and evaluated in follow-up currently underwent WBC scan which shows some increased uptake in the proximal left humeral metaphysis and mildly increased uptake at the lateral right lung base above the liver. Patient underwent a computed tomography scan of the chest showing some scattered groundglass infiltrates with basilar atelectasis or airspace consolidation with small effusions. Patient is maintained on IV antibiotics in the form of cefepime along with vancomycin and Flagyl and will continue at this time. Infectious disease is following. Orthopedics were reconsulted to assess for a possible arthritic shoulder and an MRI of the left shoulder is ordered and currently pending. Family is at the bedside and this was discussed with the in detail. White blood count slightly improved and is 14.0. Sodium is currently 137 with a potassium of 4.1 and creatinine is 0.77. CRP continues to be elevated although is trending down at 230.6. Will repeat a.m. labs and continue to monitor closely. Review of systems; Constitutional: reports fatigue, no reports of fevers, or chills Cardiovascular: No reports of chest pain or palpitations Respiratory: Reports some mild shortness of breath and occasional cough GI: No reports of nausea, vomiting, or diarrhea : No reports of dysuria or retention Neurovascular: reports weakness, no reports of numbness All medications have been reviewed. Objective - Vital Signs Vital signs: Vital Signs Temp 98.8 F 11/12/19 06:44 Pulse 94 11/12/19 06:44 Resp 20 11/12/19 06:44 BP 154/70 11/12/19 06:44 Pulse Ox 92 L 11/12/19 06:44 Intake & Output 11/11/19 11/12/19 11/12/19 18:59 06:59 18:59 Intake Total 480 Output Total 800 1600 Balance -320 -1600 Weight 107 kg 107 kg Intake: Oral 480 Output: Urine 800 1600 Other: Voiding Method Indwelling Catheter Indwelling Catheter Indwelling Catheter - Exam Patient is sitting up in the chair, lethargic although easily arousable, alert and oriented 3, well-developed, well-nourished, obese. HEENT: Normocephalic. Neck is supple. Pupils reactive. Nostrils clear. Oral cavi ty is moist. Ears reveal no drainage. Neck reveals no JVD, carotid bruits, or thyromegaly. CHEST EXAMINATION: Trachea is central. Symmetrical expansion. Bibasilar crackles and no wheezing. Nonlabored breathing.. CARDIAC: Normal S1, S2 with no gallops. No murmurs ABDOMEN: Soft. Bowel sounds normal. No organomegaly. No abdominal bruits. Extremities: Bilateral lower extremity 1+ edema. No clubbing or cyanosis, improved, bilateral shoulder tenderness on palpation and lower back tenderness upon palpation. Neurologically alert, oriented x3 with well-coordinated movements. No focal deficits noted. Diffusely weak. Skin: No rash or skin lesions. Psychiatric: Cooperative. Non-suicidal Musculoskeletal: No joint swelling or deformity. Normal range of motion. - Labs CBC & Chem 7: 11/12/19 09:17 11/12/19 09:17 Labs: Abnormal Lab Results - Last 24 Hours (Table) 11/11/19 11/11/19 11/12/19 Range/Units 17:12 20:57 06:46 WBC (3.8-10.6) k/uL RBC (4.30-5.90) m/uL Hgb (13.0-17.5) gm/dL Hct (39.0-53.0) % RDW (11.5-15.5) % Plt Count (150-450) k/uL Neutrophils # (Manual) (1.3-7.7) k/uL Monocytes # (Manual) (0-1.0) k/uL Eosinophils # (Manual) (0-0.7) k/uL Metamyelocytes # (Man) (0) k/uL Myelocytes # (Manual) (0) k/uL Glucose (74-99) mg/dL POC Glucose (mg/dL) 109 H 100 H 116 H (75-99) mg/dL C-Reactive Protein (<10.0) mg/L 11/12/19 11/12/19 11/12/19 Range/Units 09:17 09:17 11:24 WBC 14.0 H (3.8-10.6) k/uL RBC 2.71 L (4.30-5.90) m/uL Hgb 8.2 L (13.0-17.5) gm/dL Hct 25.4 L (39.0-53.0) % RDW 15.8 H (11.5-15.5) % Plt Count 498 H (150-450) k/uL Neutrophils # (Manual) 10.64 H (1.3-7.7) k/uL Monocytes # (Manual) 1.12 H (0-1.0) k/uL Eosinophils # (Manual) 0.98 H (0-0.7) k/uL Metamyelocytes # (Man) 0.14 H (0) k/uL Myelocytes # (Manual) 0.28 H (0) k/uL Glucose 128 H (74-99) mg/dL POC Glucose (mg/dL) 164 H (75-99) mg/dL C-Reactive Protein 230.6 H (<10.0) mg/L Assessment and Plan Assessment: Right sided neck pain and upper arm pain likely due to advanced spondylitic changes in the lower cervical spine. improving now. Fever, elevated CRP level and possible cervical discitis versus osteomyelitis. MRI of the C spine is negative, improving Elevated CRP level Intractable nausea vomiting. Possible gastritis. Improving. Recent antibiotic course for possible sepsis at [facility] Due to bilateral lower extremity cellulitis status post antibiotic course with PICC line complicated by DVT. Recent upper extremity DVT. Currently on Eliquis Pulmonary interstitial infiltrates unchanged from previous admission in September 2019 Coronary artery disease with history of stent placement History of back surgery Chronic bilateral lower acuity swelling due to venous insufficiency. Chronic CHF with diastolic dysfunction Diabetes type 2 insulin-dependent Obstructive sleep apnea on CPAP at home Morbid obesity with BMI 36.0 Chronic hypoxic respiratory failure secondary to COPD History of TIAs History of nonsustained V. tach Osteoarthritis GERD Hyperlipidemia DVT prophylaxis patient is already on anticoagulation Plan: Patient to continue current IV antibiotics in the form of cefepime, vancomycin, and Flagyl. WBC is 14 today. Infectious disease following. Patient underwent WBC scan as mentioned previously. Orthopedic re-consulted to evaluate left sh oulder for possible septic arthritis as WBC scan showed some uptake in the left humeral shoulder area. MRI was ordered and currently pending. Blood sugars being monitored closely and patient is maintained on sliding scale only. Encouraged increased activity as tolerated along with increasing oral intake. Pain management following recommending no surgical interventions at this time. Due to multiple complex medical issues, prognosis is guarded. Further recommendations to follow. Will repeat a.m. labs. Case management and social work following working on possible ECF placement for continued PT/OT therapy. Plan is for [facility] once patient is stabilized and discharged fo r continued PT/OT therapy for strength and mobility.
[2019-11-12 16:54] LABS: Glucose,Whole Blood 147 mg/dL (75-99)
[2019-11-12 20:37] LABS: Glucose,Whole Blood 182 mg/dL (75-99)
[2019-11-12] MEDS: QUEtiapine 25 MG TAB PO SCH (20:50)
[2019-11-12] MEDS: PANTOPRAZOLE 40 MG TABLET PO SCH (20:50)
[2019-11-12] MEDS: TAMSULOSIN 0.4 MG CAP.ER.24H PO SCH (20:50)
[2019-11-12] MEDS: PRAMIPEXOLE 1 MG TAB PO SCH (20:50)
--- NOTE | 2019-11-12 22:22 | PN ---
PROGRESS NOTE DATE OF SERVICE: 11/12/2019 REASON FOR FOLLOWUP: Fever, leukocytosis and abnormal WBC scan. INTERVAL HISTORY: The patient is seen on rounds this afternoon. The patient has been afebrile. The patient is breathing comfortably. He denies having any chest pain or cough. No nausea, vomiting, abdominal pain or diarrhea. Some pain . PHYSICAL EXAMINATION: Blood pressure 117/68 with a pulse of 88, temperature 98. He is 94% on 2 L nasal cannula. General description is an elderly male up in the chair in no distress. Respiratory system: Unlabored breathing, decreased breath sounds in the base. No wheeze. Heart S1, S2. Regular rate and rhythm. Abdomen soft, no tenderness. LABS: Hemoglobin 8.8, white count 14, with a BUN of 14, creatinine 0.77. CRP is down. Blood culture has been negative. DIAGNOSTIC IMPRESSION AND PLAN: Patient with fever and leukocytosis in this patient with no clear focus WBC scan was done which is the possibility of pneumonia confirmed on the CT. No uptake in the left shoulder. Orthopedics has seen the patient. MRI has been ordered. The patient white count responded to the vancomycin; that will be continued for now. Try to obtain a sputum. at the bedside. All her questions and concerns were answered. MMODL / IJN: [id number] /
[2019-11-13] MEDS: CEFEPIME 2 GM in SODIUM CHLORIDE 0.9% 100 ML IVPB SCH ×2 (00:01→11:59)
[2019-11-13] MEDS: VANCOMYCIN 1,500 MG in SODIUM CHLORIDE 0.9% 250 ML IVPB SCH ×2 (00:01→13:50)
[2019-11-13] MEDS: oxyCODONE-APAP 10-325MG 1 EACH TAB PO PRN ×4 (04:33→21:45)
[2019-11-13 07:17] LABS: Glucose,Whole Blood 114 mg/dL (75-99)
[2019-11-13] MEDS: INSULIN ASPART (NovoLOG) 100 UNIT/ML VIAL SQ SCH ×4 (07:36→20:41)
[2019-11-13 07:56] LABS: African American GFR (CKD) >90 (>60 ml/min/1.73 sqM); Anion Gap 8 mmol/L; Blood Urea Nitrogen 15 mg/dL (9-20); Carbon Dioxide 24 mmol/L (22-30); Chloride 101 mmol/L (98-107); Glucose 102 mg/dL (74-99); Non-African American GFR(CKD) 90 (>60 ml/min/1.73 sqM); Potassium 4.4 mmol/L (3.5-5.1); Sodium 133 mmol/L (137-145)
[2019-11-13 08:08] LABS: C Reactive Protein 220.7 mg/L (<10.0); HCT 25.3 % (39.0-53.0); Hypochromasia Slight; MCH 29.8 pg (25.0-35.0); MCHC 31.4 g/dL (31.0-37.0); MCV 94.8 fL (80.0-100.0); Mean Platelet Volume 8.2; Platelet Count 616 k/uL (150-450); RBC 2.67 m/uL (4.30-5.90); WBC 14.6 k/uL (3.8-10.6)
[2019-11-13] MEDS: SYMBICORT 80-4.5 MCG INHALER INHALATION SCH ×2 (09:05→21:05)
[2019-11-13 09:16] LABS: Band Neutrophils % 2 %; Eosinophils # (M) 1.75 k/uL (0-0.7); Lymphocytes # (M) 1.75 k/uL (1.0-4.8); Metamyelocytes # (M) 0.15 k/uL (0); Metamyelocytes % 1 %; Myelocytes # (M) 0.58 k/uL (0); Myelocytes % 4 %; Neutrophils % (M) 58 %; Nucleated Red Blood Cells 0 /100 WBC (0-0); Total Cells Counted 200
[2019-11-13 09:18] LABS: Anisocytosis (M) Present
[2019-11-13] MEDS: FUROSEMIDE 10 MG/ML 2 ML VIAL IV SCH ×2 (09:47→20:42)
[2019-11-13] MEDS: POTASSIUM CHLORIDE ER 20 MEQ TAB.ER PO SCH ×2 (09:48→20:42)
[2019-11-13] MEDS: ASPIRIN 325 MG TAB PO SCH (09:48)
[2019-11-13] MEDS: METOPROLOL TARTRATE 25 MG TAB PO SCH ×2 (09:48→20:42)
[2019-11-13] MEDS: GABAPENTIN 100 MG CAP PO SCH ×3 (09:48→20:42)
[2019-11-13] MEDS: metroNIDAZOLE 500 MG TAB PO SCH ×3 (09:48→20:42)
[2019-11-13] MEDS: APIXABAN 5 MG TAB PO SCH ×2 (09:48→20:42)
[2019-11-13] MEDS: ATORVASTATIN 80 MG TAB PO SCH (09:49)
--- NOTE | 2019-11-13 10:17 | P.PN ---
Subjective Progress Note Date: 11/13/19 Principal diagnosis: Cervical radiculopathy. Sepsis. Patient is a very pleasant 69-year-old male well known to our service who is seen and examined for further evaluation to his cervical spine. He is known to have have significant degenerative changes at his cervical spine. He is known have chronic low back pain as well. He was recently seen in the outpatient [facility] for further evaluation. He has consulted with Dr. Browne in pain management and has a scheduled follow-up appointment on 11/09/2019. He is a surgical candidate in regards to his cervical spine if he were to fail all conservative conservative treatment options. Since being seen and examined he has not had any changes or recent accidents regards to his cervical spine. He does continue to have some cervical pain with pain radiating to the left shoulder. More recently he was recently admitted to [facility] after he states he started to feel ill and had difficulty with urination. He was taken there after recommendations by his family. He states he was inpatient at the hospital from 10/16/2019 till 10/23/2019 after he was found to have sepsis. He had a PICC line placement and had difficulty with his PICC line placement. He took 3 PICC line placements to have adequate placement of a PICC line. Subsequently the last PICC line was discontinued and he was started on oral antibiotic medication. He states due to the PICC line he developed a blood clot in the right shoulder/upper extremity. he recently had MRI workup for possible discitis in the cervical spine. MRI showed degenerative changes but no evidence of infection. He continues to have elevated white count and elevated CRP. A whole-body White blood cellbone scan was ordered which did show increased uptake in the proximal humerus of the left shoulder.we are reconsult us for orthopedic evaluation of the left shoulder. The patient states that he does have some shoulder pain but has not noticed problem with motion of the shoulder. He reports no recent trauma or injury to his left shoulder. the patient was evaluated yesterday by myself and by Dr. Monzon. He has full range of motion of the shoulder without pain. No redness or swelling to the area. The MRI of the left shoulder was canceled. the patient states that he does not feel well today. He complains of multiple joints aching today.vital signs are stable. He is afebrile. Objective - Vital Signs Vital signs: Vital Signs Temp 97.8 F 11/13/19 07:02 Pulse 88 11/13/19 07:02 Resp 16 11/13/19 07:02 BP 129/67 11/13/19 07:02 Pulse Ox 92 L 11/13/19 07:02 Intake & Output 11/12/19 11/13/19 11/13/19 18:59 06:59 18:59 Output Total 1100 950 Balance -1100 -950 Weight 107 kg 101.4 kg Output: Urine 1100 950 Other: Voiding Method Indwelling Catheter Indwelling Catheter - Exam this is a 69-year-old male in no acute distress. He is alert and oriented at this time. Exam the left shoulder reveals full range of motion without pain or difficulty. There is no erythema and no effusion noted. He has limited motion to his cervical spine secondary to his normal neck pain and stiffness. There is no swelling or erythema noted to the elbows or wrists. He does have a small abrasion about the right wrist. Neurovascular status the upper extremities is intact. - Labs CBC & Chem 7: 11/13/19 06:48 11/13/19 06:48 Labs: Abnormal Lab Results - Last 24 Hours (Table) 11/12/19 11/12/19 11/12/19 Range/Units 09:17 09:17 11:24 WBC (3.8-10.6) k/uL RBC (4.30-5.90) m/uL Hgb (13.0-17.5) gm/dL Hct (39.0-53.0) % RDW (11.5-15.5) % Plt Count (150-450) k/uL Neutrophils # (Manual) 10.64 H (1.3-7.7) k/uL Monocytes # (Manual) 1.12 H (0-1.0) k/uL Eosinophils # (Manual) 0.98 H (0-0.7) k/uL Metamyelocytes # (Man) 0.14 H (0) k/uL Myelocytes # (Manual) 0.28 H (0) k/uL Sodium (137-145) mmol/L Glucose (74-99) mg/dL POC Glucose (mg/dL) 164 H (75-99) mg/dL C-Reactive Protein 230.6 H (<10.0) mg/L 11/12/19 11/12/19 11/13/19 Range/Units 16:50 20:35 06:48 WBC 14.6 H (3.8-10.6) k/uL RBC 2.67 L (4.30-5.90) m/uL Hgb 8.0 L (13.0-17.5) gm/dL Hct 25.3 L (39.0-53.0) % RDW 16.0 H (11.5-15.5) % Plt Count 616 H (150-450) k/uL Neutrophils # (Manual) 8.70 H (1.3-7.7) k/uL Monocytes # (Manual) 1.90 H (0-1.0) k/uL Eosinophils # (Manual) 1.75 H (0-0.7) k/uL Metamyelocytes # (Man) 0.15 H (0) k/uL Myelocytes # (Manual) 0.58 H (0) k/uL Sodium (137-145) mmol/L Glucose (74-99) mg/dL POC Glucose (mg/dL) 147 H 182 H (75-99) mg/dL C-Reactive Protein (<10.0) mg/L 11/13/19 11/13/19 Range/Units 06:48 07:05 WBC (3.8-10.6) k/uL RBC (4.30-5.90) m/uL Hgb (13.0-17.5) gm/dL Hct (39.0-53.0) % RDW (11.5-15.5) % Plt Count (150-450) k/uL Neutrophils # (Manual) (1.3-7.7) k/uL Monocytes # (Manual) (0-1.0) k/uL Eosinophils # (Manual) (0-0.7) k/uL Metamyelocytes # (Man) (0) k/uL Myelocytes # (Manual) (0) k/uL Sodium 133 L (137-145) mmol/L Glucose 102 H (74-99) mg/dL POC Glucose (mg/dL) 114 H (75-99) mg/dL C-Reactive Protein 220.7 H (<10.0) mg/L Assessment and Plan (1) Cervical stenosis of spinal canal Current Visit: Yes Status: Acute Code(s): M48.02 - SPINAL STENOSIS, CERVICAL REGION SNOMED Code(s): 10765346 (2) Elevated C-reactive protein (CRP) Current Visit: Yes Status: Acute Code(s): R79.82 - ELEVATED C-REACTIVE PROTEIN (CRP) SNOMED Code(s): 604003013548644 (3) History of sepsis Current Visit: Yes Status: Acute Code(s): Z86.19 - PERSONAL HISTORY OF OTHER INFECTIOUS AND PARASITIC DISEASES SNOMED Code(s): 208019039022544 (4) Morbid obesity Current Visit: Yes Status: Acute Code(s): E66.01 - MORBID (SEVERE) OBESITY DUE TO EXCESS CALORIES SNOMED Code(s): 353349737 (5) Neck pain Current Visit: Yes Status: Acute Priority: Medium Code(s): M54.2 - CERVICALGIA SNOMED Code(s): 03577715 Plan: The clinical and bone scan findings are discussed with the patient. There is low clinical suspicion for a septic arthritis of the left shoulder at this time. He has essentially full range of motion of that shoulder. we will continue to follow peripherally. No indication for orthopedic intervention at this time.I would suggest an anti-inflammatory if okay with internal medicine.
[2019-11-13 11:25] LABS: Glucose,Whole Blood 157 mg/dL (75-99)
--- NOTE | 2019-11-13 14:42 | P.PN ---
Subjective neck pain and Shoulder pain Patient is a 69-year-old male with a known history of chronic neck pain, coronary artery disease history of stent placement, chronic CHF with diastolic dysfunction, hypertension, hyperlipidemia, diabetes type 2 insulin-dependent morbid obesity and obstructive sleep apnea who was recently admitted to [facility] with generalized body aches. Patient was also recently discharged from [facility] and was treated for possible sepsis with unknown etiology. Patient was discharged on IV antibiotics and change to oral antibiotics in the form of Zyvox and due to complication of DVT in the left upper extremity. Patient is currently on Eliquis twice daily. Patient was recently discharged from the hospital on 09/22/2019 with a course of antibiotics in the form of Levaquin due to diffuse interstitial infiltrates. Patient presents to ER with complaints of neck pain mainly on the right side radiating down his shoulder and right arm. Patient is unable to move his right completely. Patient also complaining of right arm numbness as well. Denied any complaints of fever or chills. No chest pain or worsening shortness of breath. Patient does have chronic bilateral lower extremity swelling curren tly on Lasix at home by [facility]. CT angiogram of the chest showed no evidence of pulmonary embolism. There is some patchy atelectasis atelectasis in the lung base not significantly different from present exam. No suspicious pulmonary mass. Stable mild posterior pleural scarring. CT cervical spine showed redemonstrated advanced spondylitic changes especially in the mid to lower cervical spine. Degenerative grade 1 anterolisthesis at C4, C5 and focal kyphotic deformity. Variable neural foraminal stenosis. Apparent thickening of the prevertebral soft tissue seems to correspond to retropharyn geal course of the internal carotid arteries rather than effusion or edema. Laboratory data showed WBC 9.8, hemoglobin 9.6 and platelets 249 D-dimer is [address] PE negative. Sodium 135, potassium 4.9, chloride 100, BUN 15 and creatinine 1.09 Blood sugar was 61 on admission CRP is 198.6 Albumin 3.3 patient was afebrile on but tachycardic with heart rate around 115 11/04/2019 Patient is currently sitting in the chair but still complaining of neck pain and is right-hand clenched towards the chest. Patient does not have any fever or chills this morning. No nausea vomiting or abdominal pain. No diarrhea. Patient is refusing IV Lasix saying that he was told that it is not good for his kidneys. Laboratory data showed WBC 11.3, hemoglobin 9.1 platelets 214 CRP level is 267 today. Currently on antibiotics in the form of Zyvox. ID is following. Awaiting records from the [facility]. 11/05/2019 Patient is still complaining of neck pain and pain down to the shoulders bilaterally. Patient was agitated and confused last night. Also developed fever. Zyvox was changed to vancomycin. MRI of the spine was ordered and ID is following. Patient was febrile last night. Follow up on cultures. Otherwise patient is being continued on an management. Neck orthopedic surgery and ID is following. Discussed with his at bedside in detail. Aberrantly patient was treated fo r possible sepsis secondary to bilateral lower activity cellulitis and was started on antibiotics with PICC line. Patient developed DVT of the right upper extremity and antibiotics were changed to Zyvox. Patient was started on Eliquis for anti-coagulation at [facility]. 11/05/2016 Patient is currently lying in the bed comfortable. Still complaining of neck pain and shoulder pains. Patient has been afebrile now. MRI of the cervical spine showed no evidence of discitis or osteoarthritis. No other evidence of septic foci was noted this time. Patient is currently on vancomycin and was started on cefepime. Follow up on blood cultures. ID is following. CT of abdomen pelvis was ordered. Patient otherwise denied any complaints of chest pain or shortness of breath. No cough or sputum production. Patient did have nausea. No episodes of vomiting. No diarrhea. 11/06/2017 Patient was initially admitted to the hospital with intractable neck pain down to the bilateral shoulders. MRI was done to rule out discitis and osteomyelitis. Negative at this time. Patient was febrile and leukocytosis with WBC count 13.5. CT of the abdomen pelvis was done to to evaluate for possible source of infection. ID is following. Patient is currently lying in the bed comfortably. Neck pain is better. Otherwise patient has been having nausea vomiting and abdominal discomfort mainly in the epigastric region. Laboratory data showed WBC 13.5, hemoglobin 7.3 and platelets 143. Discussed with his at bedside in detail. Orthopedic surgery and ID and pain management service is following. Currently maintained on antibiotics in the form of vancomycin and cefepime. current medications reviewed. 11/08/2019 Patient is seen and evaluated and follow-up currently sitting up in the chair attempting to eat some lunch. Patient continues to have some nausea with vomiting and family is at the bedside. Patient is maintained on IV antibiotics in the form of vancomycin and cefepime and will continue at this time. Infectious disease is following. Orthopedic surgery pain management is f darbying recommending no surgical interventions at this time. Patient underwent CT abdomen showing fluid overload with anasarca with small pleural effusions and patchy groundglass in the lower lungs suggestive of pulmonary vascular congestion, confluent strandy densities in the lower retroperitoneum tracking down into the adnexa and presacral region, inflammation up from the bladder with possible cystitis, contrast noted within the lower esophagus suggesting GERD or esophageal dysmotility, and some mild left-sided colonic diverticulosis without any evidence of acute diverticulitis. Patient is continued on 4 L of oxygen via nasal cannula and denies any current chest pain or shortness of breath. Patient has been afebrile for over 24 hours. White blood count slowly trending down at 11.6. Hemoglobin is 7.8 with no active bleeding noted. Creatinine is 1.00, and CRP slowly trending down at 331.9. Blood sugars on the lower side and will discontinue long-acting and continue with sliding scale and monitor closely. 11/09/2019 Patient seen in follow up today with no acute overnight issues noted. Patient denies any nausea or vomiting and has tolerated diet. Patient currently remains on IV antibiotics in the form of cefepime and vanco has been discontinued. Patient is afebrile. Patient generalized edema continues to improve. Discussed with the patient about discharge planning needs and although doesn't want to go to rehab is agreeable for continued PT/OT therapy as patient continues to be quite weak and PT/OT recommending [facility] upon discharge. Social work following and working on accepting facilities along with insurance authorization. Blood sugars being closely monitored. 11/10/2019 Patient is seen and evaluated in follow-up today and is maintained on IV antibiotics in the form of cefepime. Blood cultures continue to be negative. Patient's white blood count today slightly trending up at 13.2. Patient is scheduled to undergo a WBC scan and awaiting report. No acute overnight events noted. Patient's blood sugars can continue to be well controlled as patient is maintained on sliding scale at this time. Long-acting continues to be on hold. Patient's hemoglobin today is 7.4 with no active bleeding noted. Review of systems: Constitutional: Reports fatigue with no reports of fevers or chills Cardiovascular: No reports of chest pain or palpitations Respiratory: Reports some mild shortness of breath on occasion, no reports of cough GI: No reports of nausea, vomiting, or diarrhea : No reports of dysuria or retention, indwelling Finch catheter noted Neurovascular: Reports weakness, no reports of numbness All medications have been reviewed. 11/11/2019 Patient is seen and evaluated and follow-up currently underwent WBC scan and is to complete the scan this evening. Awaiting report. White blood count trending up and is currently 17.1 and was maintained on IV cefepime and vancomycin was added. Infectious disease is following. Patient continues to be weak and lethargic although arousable. At the bedside concerned with his back pain which is chronic in nature. Patient was seen and evaluated by Dr. Grier commending no surgical interventions at this time and to continue with medical management. Patient currently denies any chest pain, shortness of breath, or palpitations. Patient is currently resting comfortably on room air in the chair with bilateral lower extremities elevated. PT/OT following in case management and social work also following unexpected go to [facility] for continued PT/OT therapy for strength and mobility. Will await WBC scan report and continue to monitor closely. 11/12/2019 Patient is seen and evaluated in follow-up currently underwent WBC scan which shows some increased uptake in the proximal left humeral metaphysis and mildly increased uptake at the lateral right lung base above the liver. Patient underwent a computed tomography scan of the chest showing some scattered groundglass infiltrates with basilar atelectasis or airspace consolidation with small effusions. Patient is maintained on IV antibiotics in the form of cefepime along with vancomycin and Flagyl and will continue at this time. Infectious disease is following. Orthopedics were reconsulted to assess for a possible arthritic shoulder and an MRI of the left shoulder is ordered and currently pending. Family is at the bedside and this was discussed with the in detail. White blood count slightly improved and is 14.0. Sodium is currently 137 with a potassium of 4.1 and creatinine is 0.77. CRP continues to be elevated although is trending down at 230.6. Will repeat a.m. labs and continue to monitor closely. 11/13/2019 Patient had a CAT scan of the chest which is showing groundglass T's and possibility of pneumonia patient is to be on broad-spectrum antibiotics. Autonomic surgery evaluated the patient and asked for orthopedic surgery the possibility of septic arthritis is low in the shoulder. MRI results are not available yet Review of systems; Constitutional: reports fatigue, no reports of fevers, or chills Cardiovascular: No reports of chest pain or palpitations Respiratory: Reports some mild shortness of breath and occasional cough GI: No reports of nausea, vomiting, or diarrhea : No reports of dysuria or retention Neurovascular: reports weakness, no reports of numbness Objective - Vital Signs Vital signs: Vital Signs Temp 97.8 F 11/13/19 07:02 Pulse 88 11/13/19 12:00 Resp 16 11/13/19 12:00 BP 129/67 11/13/19 07:02 Pulse Ox 92 L 11/13/19 07:02 Intake & Output 11/12/19 11/13/19 11/13/19 18:59 06:59 18:59 Intake Total 580 Output Total 1100 950 500 Balance -1100 -950 80 Weight 107 kg 101.4 kg Intake: Intake, IV Titration 100 Amount Cefepime 2 gm In Sodium 100 Chloride 0.9% 100 ml @ 25 mls/hr IVPB Q12HR@0000, 1200 [facility] Rx#:[id number] Oral 480 Output: Urine 1100 950 500 Other: Voiding Method Indwelling Catheter Indwelling Catheter Indwelling Catheter # Voids 2 - Exam Patient is sitting up in the chair, lethargic although easily arousable, alert and oriented 3, well-developed, well-nourished, obese. HEENT: Normocephalic. Neck is supple. Pupils reactive. Nostrils clear. Oral cavity is moist. Ears reveal no drainage. Neck reveals no JVD, carotid bruits, or thyromegaly. CHEST EXAMINATION: Trachea is central. Symmetrical expansion. Bibasilar crackles and no wheezing. Nonlabored breathing.. CARDIAC: Normal S1, S2 with no gallops. No murmurs ABDOMEN: Soft. Bowel sounds normal. No organomegaly. No abdominal bruits. Extremities: Bilateral lower extremity 1+ edema. No clubbing or cyanosis, improved, bilateral shoulder tenderness on palpation and lower back tenderness upon palpation. Neurologically alert, oriented x3 with well-coordinated movements. No focal deficits noted. Diffusely weak. Skin: No rash or skin lesions. Psychiatric: Cooperative. Non-suicidal Musculoskeletal: No joint swelling or deformity. Normal range of motion. - Labs CBC & Chem 7: 11/13/19 06:48 11/13/19 06:48 Labs: Abnormal Lab Results - Last 24 Hours (Table) 11/12/19 11/12/19 11/13/19 Range/Units 16:50 20:35 06:48 WBC 14.6 H (3.8-10.6) k/uL RBC 2.67 L (4.30-5.90) m/uL Hgb 8.0 L (13.0-17.5) gm/dL Hct 25.3 L (39.0-53.0) % RDW 16.0 H (11.5-15.5) % Plt Count 616 H (150-450) k/uL Neutrophils # (Manual) 8.70 H (1.3-7.7) k/uL Monocytes # (Manual) 1.90 H (0-1.0) k/uL Eosinophils # (Manual) 1.75 H (0-0.7) k/uL Metamyelocytes # (Man) 0.15 H (0) k/uL Myelocytes # (Manual) 0.58 H (0) k/uL Sodium (137-145) mmol/L Glucose (74-99) mg/dL POC Glucose (mg/dL) 147 H 182 H (75-99) mg/dL C-Reactive Protein (<10.0) mg/L Procalcitonin (0.02-0.09) ng/mL 11/13/19 11/13/19 11/13/19 Range/Units 06:48 06:48 07:05 WBC (3.8-10.6) k/uL RBC (4.30-5.90) m/uL Hgb (13.0-17.5) gm/dL Hct (39.0-53.0) % RDW (11.5-15.5) % Plt Count (150-450) k/uL Neutrophils # (Manual) (1.3-7.7) k/uL Monocytes # (Manual) (0-1.0) k/uL Eosinophils # (Manual) (0-0.7) k/uL Metamyelocytes # (Man) (0) k/uL Myelocytes # (Manual) (0) k/uL Sodium 133 L (137-145) mmol/L Glucose 102 H (74-99) mg/dL POC Glucose (mg/dL) 114 H (75-99) mg/dL C-Reactive Protein 220.7 H (<10.0) mg/L Procalcitonin 0.39 H (0.02-0.09) ng/mL 11/13/19 Range/Units 11:17 WBC (3.8-10.6) k/uL RBC (4.30-5.90) m/uL Hgb (13.0-17.5) gm/dL Hct (39.0-53.0) % RDW (11.5-15.5) % Plt Count (150-450) k/uL Neutrophils # (Manual) (1.3-7.7) k/uL Monocytes # (Manual) (0-1.0) k/uL Eosinophils # (Manual) (0-0.7) k/uL Metamyelocytes # (Man) (0) k/uL Myelocytes # (Manual) (0) k/uL Sodium (137-145) mmol/L Glucose (74-99) mg/dL POC Glucose (mg/dL) 157 H (75-99) mg/dL C-Reactive Protein (<10.0) mg/L Procalcitonin (0.02-0.09) ng/mL Assessment and Plan Plan: Right sided neck pain and upper arm pain likely due to advanced spondylitic changes in the lower cervical spine. improving now. Fever, elevated CRP level and possible cervical discitis versus osteomyelitis. MRI of the C spine is negative, improving Elevated CRP level Intractable nausea vomiting. Possible gastritis. Improving. Recent antibiotic course for possible sepsis at [facility] Due to bilateral lower extremity cellulitis status post antibiotic course with PICC line complicated by DVT. Recent upper extremity DVT. Currently on Eliquis Pulmonary interstitial infiltrates unchanged from previous admission in September 2019 Coronary artery disease with history of stent placement History of back surgery Chronic bilateral lower acuity swelling due to venous insufficiency. Chronic CHF with diastolic dysfunction Diabetes type 2 insulin-dependent Obstructive sleep apnea on CPAP at home Morbid obesity with BMI 36.0 Chronic hypoxic respiratory failure secondary to COPD History of TIAs History of nonsustained V. tach Osteoarthritis GERD Hyperlipidemia DVT prophylaxis patient is already on anticoagulation Plan: Patient to continue current IV antibiotics in the form of cefepime, vancomycin, and Flagyl. WBC is 14 today. Infectious disease following. Patient underwent WBC scan as mentioned previously. Orthopedic re-consulted to evaluate left shoulder for possible septic arthritis as WBC scan showed some uptake in the left humeral shoulder area. MRI was ordered and currently pending. Blood sugars being monitored closely and patient is maintained on sliding scale only. Encouraged increased activity as tolerated along with increasing oral intake. Pain management following recommending no surgical interventions at this time. Due to multiple complex medical issues, prognosis is guarded. Further recommendations to follow. Will repeat a.m. labs. Case management and social work following working on possible ECF placement for continued PT/OT therapy. Plan is for [facility] once patient is stabilized and discharged for continued PT/OT therapy for strength and mobility.
[2019-11-13 16:40] LABS: Glucose,Whole Blood 129 mg/dL (75-99)
[2019-11-13] MEDS: SODIUM CHLORIDE 0.9% 1,000 ML IV SCH (17:34)
[2019-11-13 20:38] LABS: Glucose,Whole Blood 118 mg/dL (75-99)
[2019-11-13] MEDS: PANTOPRAZOLE 40 MG TABLET PO SCH (20:42)
[2019-11-13] MEDS: PRAMIPEXOLE 1 MG TAB PO SCH (20:42)
[2019-11-13] MEDS: TAMSULOSIN 0.4 MG CAP.ER.24H PO SCH (20:42)
[2019-11-13] MEDS: QUEtiapine 25 MG TAB PO SCH (20:42)
[2019-11-13] MEDS ORDERED: VANCOMYCIN TROUGH DUE 1 EACH MISC MISCELLANE ONE (23:00)
--- NOTE | 2019-11-13 23:57 | PN ---
PROGRESS NOTE DATE OF SERVICE: 11/13/2019 REASON FOR FOLLOWUP: Fever, possible pneumonia. INTERVAL HISTORY: The patient is currently afebrile. Patient is breathing comfortably. The patient denies having any chest pain or cough. No nausea, no vomiting. No abdominal pain. No diarrhea. PHYSICAL EXAMINATION: Blood pressure 131/68 with a pulse of 112. Temperature of 98.6. He is 92% on 2 L nasal cannula. General description is an elderly male up in the chair in no distress. Respiratory system: Unlabored breathing, decreased breath sounds at the base. No wheeze. Heart S1, S2. Regular rate and rhythm. Abdomen soft, no tenderness. Legs with 1+ edema of feet. LABS: Hemoglobin 8, white count 14.6, BUN 15, creatinine 0.82. CRP is down to 220 from a high of 428. IMPRESSION/PLAN: Patient with a fever and leukocytosis. Did have extensive workup with concern for possible pneumonia or left shoulder septic arthritis. MRI pending. Blood culture negative. Sputum not collected. Continue with vancomycin and cefepime. Try to obtain a sputum. Repeat blood work tomorrow. Continue supportive care. MMODL / IJN: [id number] /
[2019-11-14] MEDS: VANCOMYCIN 1,500 MG in SODIUM CHLORIDE 0.9% 250 ML IVPB SCH ×2 (00:04→15:39)
[2019-11-14] MEDS: CEFEPIME 2 GM in SODIUM CHLORIDE 0.9% 100 ML IVPB SCH ×3 (00:04→23:14)
[2019-11-14] MEDS: oxyCODONE-APAP 10-325MG 1 EACH TAB PO PRN ×4 (05:47→23:17)
[2019-11-14 07:07] LABS: Anisocytosis Slight; HCT 26.6 % (39.0-53.0); HGB 8.3 gm/dL (13.0-17.5); Hypochromasia Slight; MCH 29.2 pg (25.0-35.0); MCHC 31.2 g/dL (31.0-37.0); MCV 93.6 fL (80.0-100.0); Mean Platelet Volume 8.1; Platelet Count 693 k/uL (150-450); RBC 2.84 m/uL (4.30-5.90); RDW 16.2 % (11.5-15.5); WBC 18.6 k/uL (3.8-10.6)
[2019-11-14 07:13] LABS: Glucose,Whole Blood 118 mg/dL (75-99)
[2019-11-14 07:14] LABS: African American GFR (CKD) >90 (>60 ml/min/1.73 sqM); Anion Gap 9 mmol/L; Blood Urea Nitrogen 16 mg/dL (9-20); Calcium 8.8 mg/dL (8.4-10.2); Carbon Dioxide 24 mmol/L (22-30); Chloride 103 mmol/L (98-107); Glucose 110 mg/dL (74-99); Non-African American GFR(CKD) 89 (>60 ml/min/1.73 sqM); Potassium 4.5 mmol/L (3.5-5.1); Sodium 136 mmol/L (137-145)
[2019-11-14] MEDS: INSULIN ASPART (NovoLOG) 100 UNIT/ML VIAL SQ SCH ×4 (07:40→21:01)
[2019-11-14] MEDS: SYMBICORT 80-4.5 MCG INHALER INHALATION SCH ×2 (08:31→19:31)
[2019-11-14] MEDS: FUROSEMIDE 10 MG/ML 2 ML VIAL IV SCH ×2 (08:59→20:19)
[2019-11-14] MEDS: metroNIDAZOLE 500 MG TAB PO SCH (08:59)
[2019-11-14] MEDS: ATORVASTATIN 80 MG TAB PO SCH (08:59)
[2019-11-14] MEDS: ASPIRIN 325 MG TAB PO SCH (08:59)
[2019-11-14] MEDS: GABAPENTIN 100 MG CAP PO SCH ×3 (09:00→20:19)
[2019-11-14] MEDS: POTASSIUM CHLORIDE ER 20 MEQ TAB.ER PO SCH ×2 (09:00→20:19)
[2019-11-14] MEDS: APIXABAN 5 MG TAB PO SCH ×2 (09:00→20:19)
[2019-11-14] MEDS: METOPROLOL TARTRATE 25 MG TAB PO SCH ×2 (09:02→20:19)
[2019-11-14 11:45] LABS: Glucose,Whole Blood 165 mg/dL (75-99)
--- NOTE | 2019-11-14 13:22 | P.PN ---
Subjective neck pain and Shoulder pain Patient is a 69-year-old male with a known history of chronic neck pain, coronary artery disease history of stent placement, chronic CHF with diastolic dysfunction, hypertension, hyperlipidemia, diabetes type 2 insulin-dependent morbid obesity and obstructive sleep apnea who was recently admitted to [facility] with generalized body aches. Patient was also recently discharged from [facility] and was treated for possible sepsis with unknown etiology. Patient was discharged on IV antibiotics and change to oral antibiotics in the form of Zyvox and due to complication of DVT in the left upper extremity. Patient is currently on Eliquis twice daily. Patient was recently discharged from the hospital on 09/22/2019 with a course of antibiotics in the form of Levaquin due to diffuse interstitial infiltrates. Patient presents to ER with complaints of neck pain mainly on the right side radiating down his shoulder and right arm. Patient is unable to move his right completely. Patient also complaining of right arm numbness as well. Denied any complaints of fever or chills. No chest pain or worsening shortness of breath. Patient does have chronic bilateral lower extremity swelling curren tly on Lasix at home by [facility]. CT angiogram of the chest showed no evidence of pulmonary embolism. There is some patchy atelectasis atelectasis in the lung base not significantly different from present exam. No suspicious pulmonary mass. Stable mild posterior pleural scarring. CT cervical spine showed redemonstrated advanced spondylitic changes especially in the mid to lower cervical spine. Degenerative grade 1 anterolisthesis at C4, C5 and focal kyphotic deformity. Variable neural foraminal stenosis. Apparent thickening of the prevertebral soft tissue seems to correspond to retropharyn geal course of the internal carotid arteries rather than effusion or edema. Laboratory data showed WBC 9.8, hemoglobin 9.6 and platelets 249 D-dimer is [address] PE negative. Sodium 135, potassium 4.9, chloride 100, BUN 15 and creatinine 1.09 Blood sugar was 61 on admission CRP is 198.6 Albumin 3.3 patient was afebrile on but tachycardic with heart rate around 115 11/04/2019 Patient is currently sitting in the chair but still complaining of neck pain and is right-hand clenched towards the chest. Patient does not have any fever or chills this morning. No nausea vomiting or abdominal pain. No diarrhea. Patient is refusing IV Lasix saying that he was told that it is not good for his kidneys. Laboratory data showed WBC 11.3, hemoglobin 9.1 platelets 214 CRP level is 267 today. Currently on antibiotics in the form of Zyvox. ID is following. Awaiting records from the [facility]. 11/05/2019 Patient is still complaining of neck pain and pain down to the shoulders bilaterally. Patient was agitated and confused last night. Also developed fever. Zyvox was changed to vancomycin. MRI of the spine was ordered and ID is following. Patient was febrile last night. Follow up on cultures. Otherwise patient is being continued on an management. Neck orthopedic surgery and ID is following. Discussed with his at bedside in detail. Aberrantly patient was treated fo r possible sepsis secondary to bilateral lower activity cellulitis and was started on antibiotics with PICC line. Patient developed DVT of the right upper extremity and antibiotics were changed to Zyvox. Patient was started on Eliquis for anti-coagulation at [facility]. 11/05/2016 Patient is currently lying in the bed comfortable. Still complaining of neck pain and shoulder pains. Patient has been afebrile now. MRI of the cervical spine showed no evidence of discitis or osteoarthritis. No other evidence of septic foci was noted this time. Patient is currently on vancomycin and was started on cefepime. Follow up on blood cultures. ID is following. CT of abdomen pelvis was ordered. Patient otherwise denied any complaints of chest pain or shortness of breath. No cough or sputum production. Patient did have nausea. No episodes of vomiting. No diarrhea. 11/06/2017 Patient was initially admitted to the hospital with intractable neck pain down to the bilateral shoulders. MRI was done to rule out discitis and osteomyelitis. Negative at this time. Patient was febrile and leukocytosis with WBC count 13.5. CT of the abdomen pelvis was done to to evaluate for possible source of infection. ID is following. Patient is currently lying in the bed comfortably. Neck pain is better. Otherwise patient has been having nausea vomiting and abdominal discomfort mainly in the epigastric region. Laboratory data showed WBC 13.5, hemoglobin 7.3 and platelets 143. Discussed with his at bedside in detail. Orthopedic surgery and ID and pain management service is following. Currently maintained on antibiotics in the form of vancomycin and cefepime. current medications reviewed. 11/08/2019 Patient is seen and evaluated and follow-up currently sitting up in the chair attempting to eat some lunch. Patient continues to have some nausea with vomiting and family is at the bedside. Patient is maintained on IV antibiotics in the form of vancomycin and cefepime and will continue at this time. Infectious disease is following. Orthopedic surgery pain management is f darbying recommending no surgical interventions at this time. Patient underwent CT abdomen showing fluid overload with anasarca with small pleural effusions and patchy groundglass in the lower lungs suggestive of pulmonary vascular congestion, confluent strandy densities in the lower retroperitoneum tracking down into the adnexa and presacral region, inflammation up from the bladder with possible cystitis, contrast noted within the lower esophagus suggesting GERD or esophageal dysmotility, and some mild left-sided colonic diverticulosis without any evidence of acute diverticulitis. Patient is continued on 4 L of oxygen via nasal cannula and denies any current chest pain or shortness of breath. Patient has been afebrile for over 24 hours. White blood count slowly trending down at 11.6. Hemoglobin is 7.8 with no active bleeding noted. Creatinine is 1.00, and CRP slowly trending down at 331.9. Blood sugars on the lower side and will discontinue long-acting and continue with sliding scale and monitor closely. 11/09/2019 Patient seen in follow up today with no acute overnight issues noted. Patient denies any nausea or vomiting and has tolerated diet. Patient currently remains on IV antibiotics in the form of cefepime and vanco has been discontinued. Patient is afebrile. Patient generalized edema continues to improve. Discussed with the patient about discharge planning needs and although doesn't want to go to rehab is agreeable for continued PT/OT therapy as patient continues to be quite weak and PT/OT recommending [facility] upon discharge. Social work following and working on accepting facilities along with insurance authorization. Blood sugars being closely monitored. 11/10/2019 Patient is seen and evaluated in follow-up today and is maintained on IV antibiotics in the form of cefepime. Blood cultures continue to be negative. Patient's white blood count today slightly trending up at 13.2. Patient is scheduled to undergo a WBC scan and awaiting report. No acute overnight events noted. Patient's blood sugars can continue to be well controlled as patient is maintained on sliding scale at this time. Long-acting continues to be on hold. Patient's hemoglobin today is 7.4 with no active bleeding noted. 11/11/2019 Patient is seen and evaluated and follow-up currently underwent WBC scan and is to complete the scan this evening. Awaiting report. White blood count trending up and is currently 17.1 and was maintained on IV cefepime and vancomycin was added. Infectious disease is following. Patient continues to be weak and lethargic although arousable. At the bedside concerned with his back pain which is chronic in nature. Patient was seen and evaluated by Dr. Grier commending no surgical interventions at this time and to continue with medical management. Patient currently denies any chest pain, shortness of breath, or palpitations. Patient is currently resting comfortably on room air in the chair with bilateral lower extremities elevated. PT/OT following in case management and social work also following unexpected go to [facility] for continued PT/OT therapy for strength and mobility. Will await WBC scan report and continue to monitor closely. 11/12/2019 Patient is seen and evaluated in follow-up currently underwent WBC scan which shows some increased uptake in the proximal left humeral metaphysis and mildly increased uptake at the lateral right lung base above the liver. Patient underwent a computed tomography scan of the chest showing some scattered groundglass infiltrates with basilar atelectasis or airspace consolidation with small effusions. Patient is maintained on IV antibiotics in the form of cefepime along with vancomycin and Flagyl and will continue at this time. Infectious disease is following. Orthopedics were reconsulted to assess for a possible arthritic shoulder and an MRI of the left shoulder is ordered and c urrently pending. Family is at the bedside and this was discussed with the in detail. White blood count slightly improved and is 14.0. Sodium is currently 137 with a potassium of 4.1 and creatinine is 0.77. CRP continues to be elevated although is trending down at 230.6. Will repeat a.m. labs and continue to monitor closely. 11/13/2019 Patient had a CAT scan of the chest which is showing groundglass T's and possibility of pneumonia patient is to be on broad-spectrum antibiotics. Auto nomic surgery evaluated the patient and asked for orthopedic surgery the possibility of septic arthritis is low in the shoulder. MRI results are not available yet. 11/14/2019 Patient is having confusional episodes occasionally.Asians white blood cell count went up but doesn't have any fever patient is on multiple antibiotics.as there is low suspicion of septic arthritis MRI was discontinued from surgery I ordered autoimmune panels CARSON and SARATH Review of systems; Constitutional: reports fatigue, no reports of fevers, or chills Cardiovascular: No reports of chest pain or palpitations Respiratory: Reports some mild shortness of breath and occasional cough GI: No reports of nausea, vomiting, or diarrhea : No reports of dysuria or retention Neurovascular: reports weakness, no reports of numbness Objective - Vital Signs Vital signs: Vital Signs Temp 98.5 F 11/14/19 06:58 Pulse 89 11/14/19 07:40 Resp 18 11/14/19 07:40 BP 137/68 11/14/19 06:58 Pulse Ox 96 11/14/19 06:58 Intake & Output 11/13/19 11/14/19 11/14/19 18:59 06:59 18:59 Intake Total 580 300 Output Total 500 2500 700 Balance 80 -2200 -700 Intake: Intake, IV Titration 100 Amount Cefepime 2 gm In Sodium 100 Chloride 0.9% 100 ml @ 25 mls/hr IVPB Q12HR@0000, 1200 [facility] Rx#:[id number] Oral 480 300 Output: Urine 500 2500 700 Uretheral (Finch) 1200 Other: Voiding Method Indwelling Catheter Indwelling Catheter Indwelling Catheter # Voids 2 - Exam Patient is sitting up in the chair, lethargic although easily arousable, alert and oriented 3, well-developed, well-nourished, obese. HEENT: Normocephalic. Neck is supple. Pupils reactive. Nostrils clear. Oral cavity is moist. Ears reveal no drainage. Neck reveals no JVD, carotid bruits, or thyromegaly. CHEST EXAMINATION: Trachea is central. Symmetrical expansion. Bibasilar crackles and no wheezing. Nonlabored breathing.. CARDIAC: Normal S1, S2 with no gallops. No murmurs ABDOMEN: Soft. Bowel sounds normal. No organomegaly. No abdominal bruits. Extremities: Bilateral lower extremity 1+ edema. No clubbing or cyanosis, improved, bilateral shoulder tenderness on palpation and lower back tenderness upon palpation. Neurologically alert, oriented x3 with well-coordinated movements. No focal deficits noted. Diffusely weak. Skin: No rash or skin lesions. Psychiatric: Cooperative. Non-suicidal Musculoskeletal: No joint swelling or deformity. Normal range of motion. - Labs CBC & Chem 7: 11/14/19 06:42 11/14/19 06:42 Labs: Abnormal Lab Results - Last 24 Hours (Table) 11/13/19 11/13/19 11/14/19 Range/Units 16:30 20:26 06:42 WBC (3.8-10.6) k/uL RBC (4.30-5.90) m/uL Hgb (13.0-17.5) gm/dL Hct (39.0-53.0) % RDW (11.5-15.5) % Plt Count (150-450) k/uL Sodium 136 L (137-145) mmol/L Glucose 110 H (74-99) mg/dL POC Glucose (mg/dL) 129 H 118 H (75-99) mg/dL 11/14/19 11/14/19 11/14/19 Range/Units 06:42 07:01 11:38 WBC 18.6 H (3.8-10.6) k/uL RBC 2.84 L (4.30-5.90) m/uL Hgb 8.3 L (13.0-17.5) gm/dL Hct 26.6 L (39.0-53.0) % RDW 16.2 H (11.5-15.5) % Plt Count 693 H (150-450) k/uL Sodium (137-145) mmol/L Glucose (74-99) mg/dL POC Glucose (mg/dL) 118 H 165 H (75-99) mg/dL Assessment and Plan Plan: Right sided neck pain and upper arm pain likely due to advanced spondylitic changes in the lower cervical spine. improving now. -Systemic inflammatory response syndrome: Etiology of a weighted white blood cell count is not clear patient is admitted with fever etiology of the fever is not clear either patient is on multiple antibiotics vancomycincefepime and metronidazole. I'm ordering autoimmune panel as mentioned above.patient is also being treated for possible pneumonia although there disease no clear lobar infiltrate on the CAT scan, right shoulder septic arthritis was considered as etiology but orthopedic surgery evaluated the patient doesn't believepatient has septic arthritis Fever, elevated CRP level and possible cervical discitis versus osteomyelitis. MRI of the C spine is negative, improving Elevated CRP level Intractable nausea vomiting. Possible gastritis. Improving. Recent antibiotic course for possible sepsis at [facility] Due to bilateral lower extremity cellulitis status post antibiotic course with PICC line complicated by DVT. Recent upper extremity DVT. Currently on Eliquis Pulmonary interstitial infiltrates unchanged from previous admission in September 2019 Coronary artery disease with history of stent placement History of back surgery Chronic bilateral lower acuity swelling due to venous insufficiency. Chronic CHF with diastolic dysfunction Diabetes type 2 insulin-dependent Obstructive sleep apnea on CPAP at home Morbid obesity with BMI 36.0 Chronic hypoxic respiratory failure secondary to COPD History of TIAs History of nonsustained V. tach Osteoarthritis GERD Hyperlipidemia DVT prophylaxis patient is already on anticoagulation
[2019-11-14 14:31] LABS: Glucose,Whole Blood 174 mg/dL (75-99)
--- NOTE | 2019-11-14 15:28 | XR ---
EXAMINATION TYPE: XR chest 2V DATE OF EXAM: 11/14/2019 COMPARISON: 11/06/2019 HISTORY: Fever TECHNIQUE: FINDINGS: Heart and mediastinum are within normal limits. Lungs are clear of consolidation. There is no heart failure. There is slight coarsening of the interstitial markings. There is right shoulder pr osthesis. IMPRESSION: Slight increased interstitial markings could relate to mild fibrosis. Normal heart. No si gnificant change.
[2019-11-14] MEDS ORDERED: FLUCONAZOLE 100 MG TAB PO ONE (15:30)
[2019-11-14] MEDS ORDERED: SODIUM CHLORIDE 0.9% 500 ML 500 ML IV ONE (16:01)
[2019-11-14 16:45] LABS: Glucose,Whole Blood 138 mg/dL (75-99)
[2019-11-14] MEDS: SODIUM CHLORIDE 0.9% 1,000 ML IV SCH (19:45)
[2019-11-14] MEDS: PANTOPRAZOLE 40 MG TABLET PO SCH (20:19)
[2019-11-14] MEDS: PRAMIPEXOLE 1 MG TAB PO SCH (20:19)
[2019-11-14] MEDS: QUEtiapine 25 MG TAB PO SCH (20:19)
[2019-11-14] MEDS: TAMSULOSIN 0.4 MG CAP.ER.24H PO SCH (20:19)
[2019-11-14 20:57] LABS: Glucose,Whole Blood 159 mg/dL (75-99)
--- NOTE | 2019-11-15 00:46 | PN ---
PROGRESS NOTE DATE OF SERVICE: 11/14/2019 REASON FOR FOLLOWUP: Fever and leukocytosis, pneumonia. INTERVAL HISTORY: The patient is currently afebrile. Patient is breathing comfortably. The patient denies having any chest pain or shortness of breath. Minimal cough. No nausea, no vomiting. No abdominal pain, no diarrhea. PHYSICAL EXAMINATION: Blood pressure 114/57 with a pulse of 134, temperature 99.6. He is 94% on room air. General description is an elderly male up in the bed in no distress. RESPIRATORY SYSTEM: Unlabored breathing, clear to auscultation anteriorly. HEART: S1, S2. Regular rate and rhythm. ABDOMEN: Soft, no tenderness. LABS: White count is up to 18.6 today, hemoglobin is 8.3, BUN of 16, creatinine 0.84. DIAGNOSTIC IMPRESSION AND PLAN: Patient with fever and leukocytosis in this patient who did have extensive workup. Sources is pointing towards possible pneumonia, though he significant respiratory symptoms. The patient is covered with vancomycin and cefepime, still his white count is upward trend with a question of possible oropharyngeal candidiasis. Will give a dose of Diflucan to see response. Repeat CBC and CRP in the morning. wanted the patient to be transferred to [facility] so we discussed further with director case. Continue with supportive care. MMODL / IJN: [id number] /
[2019-11-15 07:12] LABS: Glucose,Whole Blood 156 mg/dL (75-99)
[2019-11-15] MEDS: oxyCODONE-APAP 10-325MG 1 EACH TAB PO PRN ×3 (07:31→17:40)
[2019-11-15] MEDS: GABAPENTIN 100 MG CAP PO SCH ×3 (07:31→21:12)
[2019-11-15] MEDS: ASPIRIN 325 MG TAB PO SCH (07:31)
[2019-11-15] MEDS: FUROSEMIDE 10 MG/ML 2 ML VIAL IV SCH (07:31)
[2019-11-15] MEDS: POTASSIUM CHLORIDE ER 20 MEQ TAB.ER PO SCH ×2 (07:32→21:12)
[2019-11-15] MEDS: ATORVASTATIN 80 MG TAB PO SCH (07:32)
[2019-11-15] MEDS: VANCOMYCIN 1,500 MG in SODIUM CHLORIDE 0.9% 250 ML IVPB SCH ×2 (07:32→23:27)
[2019-11-15] MEDS: METOPROLOL TARTRATE 25 MG TAB PO SCH ×2 (07:32→21:12)
[2019-11-15] MEDS: APIXABAN 5 MG TAB PO SCH ×2 (07:32→21:12)
[2019-11-15] MEDS: INSULIN ASPART (NovoLOG) 100 UNIT/ML VIAL SQ SCH ×4 (07:32→21:12)
[2019-11-15] MEDS: SODIUM CHLORIDE 0.9% 1,000 ML IV SCH ×2 (07:33→11:54)
[2019-11-15 07:51] LABS: Anisocytosis Slight; Basophils # (A) 0.1 k/uL (0-0.2); Basophils % (A) 1 %; Eosinophils # (A) 0.6 k/uL (0-0.7); Eosinophils % (A) 4 %; HCT 25.3 % (39.0-53.0); HGB 7.8 gm/dL (13.0-17.5); Hypochromasia Moderate; Lymphocytes # (A) 1.6 k/uL (1.0-4.8); Lymphocytes % (A) 10 %; MCH 29.1 pg (25.0-35.0); MCHC 30.8 g/dL (31.0-37.0); MCV 94.7 fL (80.0-100.0); Mean Platelet Volume 8.1; Monocytes # (A) 0.9 k/uL (0-1.0); Monocytes % (A) 5 %; Neutrophils # (A) 13.4 k/uL (1.3-7.7); Neutrophils % (A) 80 %; Platelet Count 660 k/uL (150-450); RBC 2.68 m/uL (4.30-5.90); RDW 16.5 % (11.5-15.5); WBC 16.8 k/uL (3.8-10.6)
[2019-11-15 08:00] LABS: African American GFR (CKD) >90 (>60 ml/min/1.73 sqM); Anion Gap 7 mmol/L; Blood Urea Nitrogen 19 mg/dL (9-20); Carbon Dioxide 23 mmol/L (22-30); Chloride 104 mmol/L (98-107); Glucose 148 mg/dL (74-99); Non-African American GFR(CKD) 83 (>60 ml/min/1.73 sqM); Potassium 4.7 mmol/L (3.5-5.1); Sodium 134 mmol/L (137-145)
[2019-11-15 08:44] LABS: C Reactive Protein 259.9 mg/L (<10.0)
[2019-11-15] MEDS: SYMBICORT 80-4.5 MCG INHALER INHALATION SCH ×3 (08:45→20:24)
[2019-11-15 10:23] LABS: Anti-Smith Ab Interp NEGATIVE (NEGATIVE)
[2019-11-15 11:13] LABS: Glucose,Whole Blood 158 mg/dL (75-99)
[2019-11-15] MEDS: CEFEPIME 2 GM in SODIUM CHLORIDE 0.9% 100 ML IVPB SCH ×2 (11:53→23:27)
--- NOTE | 2019-11-15 14:18 | P.PN ---
Subjective 69-year-old male was admitted the with fever and neck pain leukocytosis, patient was extensively evaluated for sepsis source of sepsis is not clear patient was on multiple antibiotics during the course of hospital patient initially was on broad-spectrum cover any gram negatives as well as gram-positive as well as a the gram-positive coverage was discontinued patient is started having worsening leukocytosis because of which patient was restarted back on vancomycin. Patient is presently on vancomycin and cefepime and metronidazole and possibility of addition of antifungal. Patient came in with the back pain and neck pain because of which patient had a cervical spine MRI which did not show any discitis, patient was also evaluated with a computed tomography scan of the abdomen and chest which didn't show any clearcut infectious source. Patient did undergo a tagged white blood cell scan which localized to the lung and right shoulder. Right shoulder has osteoarthritis because of which there is localization of inflammatory cells and also back surgery evaluated the patient and did not believe patient had the ostium myelitis of the joint and the did not require any MRI as per them. Patient CAT scan did not show any any lobar consolidation but did mention as possible atypical pneumonia and groundglass of [id number] patient was pretty much on coverage for atypical pneumonia as well. Covid 19 testing was ordered and results are still pending, although possibility is low for this. I did order SARATH and CARSON panels in any apparent was positive. ID recommended transfer to [facility] did discuss with the hospitalist in was to [place] who did not accept the patient for admission. He recommended outpatient ID consultation from [facility] and Continuation of antibiotics for 10-14 days. Same plan was discussed with the infectious disease doctor here in the and patient probably will be discharged on 10-14 days of broad-spectrum antibiotics along with antifungals to subacute rehabilitation. Patient will be referred to rheumatology clinic has Constitutional: Denied any fatigue denied any fever. Cardio vascular: denied any chest pain, palpitations Gastrointestinal denied any nausea vomiting Pulmonary: Denied any shortness of breath cough Neurologic denied any new focal deficits All inpatient medications were reviewed and appropriate changes in these medications as dictated in the interval history and assessment and plan. Objective - Vital Signs Vital signs: Vital Signs Temp 98.9 F 11/15/19 07:00 Pulse 70 11/15/19 07:00 Resp 19 11/15/19 07:00 BP 121/65 11/15/19 07:00 Pulse Ox 96 11/15/19 07:00 Intake & Output 11/14/19 11/15/19 11/15/19 18:59 06:59 18:59 Intake Total 1000 200 Output Total 1400 2000 800 Balance -400 -1800 -800 Intake: Intake, IV Titration 350 Amount Cefepime 2 gm In Sodium 100 Chloride 0.9% 100 ml @ 25 mls/hr IVPB Q12HR@0000, 1200 [facility] Rx#:[id number] Vancomycin 1,500 mg In 250 Sodium Chloride 0.9% 250 ml @ 125 mls/hr IVPB Q16H [facility] Rx#:[id number] Oral 650 200 Output: Urine 1400 2000 800 Uretheral (Finch) 1000 Other: Voiding Method Indwelling Catheter Indwelling Catheter Indwelling Catheter # Voids 2 - Exam Patient is sitting up in the chair, lethargic although easily arousable, alert and oriented 3, well-developed, well-nourished, obese. HEENT: Normocephalic. Neck is supple. Pupils reactive. Nostrils clear. Oral cavity is moist. Ears reveal no drainage. Neck reveals no JVD, carotid bruits, or thyromegaly. CHEST EXAMINATION: Trachea is central. Symmetrical expansion. Bibasilar crackles and no wheezing. Nonlabored breathing.. CARDIAC: Normal S1, S2 with no gallops. No murmurs ABDOMEN: Soft. Bowel sounds normal. No organomegaly. No abdominal bruits. Extremities: Bilateral lower extremity 1+ edema. No clubbing or cyanosis, improved, bilateral shoulder tenderness on palpation and lower back tenderness upon palpation. Neurologically alert, oriented x3 with well-coordinated movements. No focal deficits noted. Diffusely weak. Skin: No rash or skin lesions. Psychiatric: Cooperative. Non-suicidal Musculoskeletal: No joint swelling or deformity. Normal range of motion. - Labs CBC & Chem 7: 11/15/19 06:43 11/15/19 06:43 Labs: Abnormal Lab Results - Last 24 Hours (Table) 11/14/19 11/14/19 11/14/19 Range/Units 06:42 14:25 16:42 WBC (3.8-10.6) k/uL RBC (4.30-5.90) m/uL Hgb (13.0-17.5) gm/dL Hct (39.0-53.0) % MCHC (31.0-37.0) g/dL RDW (11.5-15.5) % Plt Count (150-450) k/uL Neutrophils # (1.3-7.7) k/uL Sodium (137-145) mmol/L Glucose (74-99) mg/dL POC Glucose (mg/dL) 174 H 138 H (75-99) mg/dL C-Reactive Protein (<10.0) mg/L SARATH Screen POSITIVE H (NEGATIVE) PROJECT COORDINATOR Antibody Interp POSITIVE H (NEGATIVE) 11/14/19 11/15/19 11/15/19 Range/Units 20:52 06:43 06:43 WBC 16.8 H (3.8-10.6) k/uL RBC 2.68 L (4.30-5.90) m/uL Hgb 7.8 L (13.0-17.5) gm/dL Hct 25.3 L (39.0-53.0) % MCHC 30.8 L (31.0-37.0) g/dL RDW 16.5 H (11.5-15.5) % Plt Count 660 H (150-450) k/uL Neutrophils # 13.4 H (1.3-7.7) k/uL Sodium 134 L (137-145) mmol/L Glucose 148 H (74-99) mg/dL POC Glucose (mg/dL) 159 H (75-99) mg/dL C-Reactive Protein 259.9 H (<10.0) mg/L SARATH Screen (NEGATIVE) PROJECT COORDINATOR Antibody Interp (NEGATIVE) 11/15/19 11/15/19 Range/Units 07:11 11:11 WBC (3.8-10.6) k/uL RBC (4.30-5.90) m/uL Hgb (13.0-17.5) gm/dL Hct (39.0-53.0) % MCHC (31.0-37.0) g/dL RDW (11.5-15.5) % Plt Count (150-450) k/uL Neutrophils # (1.3-7.7) k/uL Sodium (137-145) mmol/L Glucose (74-99) mg/dL POC Glucose (mg/dL) 156 H 158 H (75-99) mg/dL C-Reactive Protein (<10.0) mg/L SARATH Screen (NEGATIVE) PROJECT COORDINATOR Antibody Interp (NEGATIVE) Assessment and Plan Plan: Right sided neck pain and upper arm pain likely due to advanced spondylitic changes in the lower cervical spine. -Systemic inflammatory response syndrome or sepsis without any clear source: Etiology is not clear patient is presently on broad-spectrum antibiotics as mentioned above and plan as mentioned above Intractable nausea vomiting. Possible gastritis improved Recent antibiotic course for possible sepsis at [facility] Due to bilateral lower extremity cellulitis status post antibiotic course with PICC line complicated by DVT. Recent upper extremity DVT. Currently on Eliquis Pulmonary interstitial infiltrates unchanged from previous admission in September 2019 Coronary artery disease with history of stent placement History of back surgery Chronic bilateral lower acuity swelling due to venous insufficiency. Chronic CHF with diastolic dysfunction patient is not in heart failure exacerbation patient was hypovolemic and actually receiving IV fluids at this can you IV Lasix yesterday Diabetes type 2 insulin-dependent Obstructive sleep apnea on CPAP at home Morbid obesity with BMI 36.0 Chronic hypoxic respiratory failure secondary to COPD History of TIAs History of nonsustained V. tach Osteoarthritis GERD Hyperlipidemia DVT prophylaxis patient is already on anticoagulation
[2019-11-15 16:28] LABS: Glucose,Whole Blood 174 mg/dL (75-99)
--- NOTE | 2019-11-15 16:36 | PN ---
PROGRESS NOTE DATE OF SERVICE: 11/15/2019. REASON FOR FOLLOWUP: Fever and leukocytosis and question of pneumonia. INTERVAL HISTORY: The patient is currently afebrile. The patient is feeling slightly better, breathing comfortably. Denies having any chest pain. Minimal cough. No nausea, no vomiting. No abdominal pain, no diarrhea. PHYSICAL EXAM: Blood pressure 124/62 with a pulse of 93, temperature 98.9, she is 100% on room air. General description is an elderly male, up in the chair in no distress. RESPIRATORY SYSTEM: Unlabored breathing, clear to auscultation anteriorly. HEART: S1, S2. Regular rate and rhythm. ABDOMEN: Soft, no tenderness. LEGS: No edema of the feet. LABS: Hemoglobin is 7, white count 16.8 with a BUN of 19, creatinine 0.93. CRP is up to 259. DIAGNOSTIC IMPRESSION AND PLAN: Patient with fever and leukocytosis. Did have extensive workup for infectious etiology. However, all the differentials has a possible pneumonia; however, clinically, did not have any symptoms suggestive of pneumonia. The patient's white count has been up and down with all the cultures remains to be negative. The patient did have an elevated and may benefit from rheumatology evaluation. The patient was being transferred to custodial admission; however, they refused and wanted the patient to be discharged home on 2 weeks of IV antibiotic therapy, currently cefepime and Vanco along with Eraxis and outpatient followup with Infectious Disease . Discussed with the admitting physician working on discharge. MMODL / IJN: [id number] /
[2019-11-15 20:45] LABS: Glucose,Whole Blood 133 mg/dL (75-99)
[2019-11-15] MEDS: TAMSULOSIN 0.4 MG CAP.ER.24H PO SCH (21:12)
[2019-11-15] MEDS: PANTOPRAZOLE 40 MG TABLET PO SCH (21:12)
[2019-11-15] MEDS: PRAMIPEXOLE 1 MG TAB PO SCH (21:12)
[2019-11-15] MEDS: QUEtiapine 25 MG TAB PO SCH (21:12)
[2019-11-15] MEDS: KETOROLAC 15 MG/ML 1 ML VIAL IVP PRN (21:12)
[2019-11-15] MEDS ORDERED: ANIDULAFUNGIN 200 MG in SODIUM CHLORIDE 0.9% 200 ML IVPB ONE (23:00)
[2019-11-16] MEDS: KETOROLAC 15 MG/ML 1 ML VIAL IVP PRN ×3 (02:36→18:25)
[2019-11-16] MEDS: oxyCODONE-APAP 10-325MG 1 EACH TAB PO PRN ×3 (02:37→16:41)
[2019-11-16] MEDS: SODIUM CHLORIDE 0.9% 1,000 ML IV SCH ×2 (04:49→08:54)
[2019-11-16] MEDS: SYMBICORT 80-4.5 MCG INHALER INHALATION SCH ×2 (07:22→21:05)
[2019-11-16 07:57] LABS: Glucose,Whole Blood 99 mg/dL (75-99)
[2019-11-16] MEDS: INSULIN ASPART (NovoLOG) 100 UNIT/ML VIAL SQ SCH ×4 (08:19→21:29)
[2019-11-16] MEDS: APIXABAN 5 MG TAB PO SCH ×2 (08:54→21:30)
[2019-11-16] MEDS: POTASSIUM CHLORIDE ER 20 MEQ TAB.ER PO SCH ×2 (08:54→21:29)
[2019-11-16] MEDS: GABAPENTIN 100 MG CAP PO SCH ×3 (08:54→21:30)
[2019-11-16] MEDS: ASPIRIN 325 MG TAB PO SCH (08:54)
[2019-11-16] MEDS: ATORVASTATIN 80 MG TAB PO SCH (08:54)
[2019-11-16] MEDS: METOPROLOL TARTRATE 25 MG TAB PO SCH ×2 (08:54→21:29)
[2019-11-16] MEDS ORDERED: TAMSULOSIN 0.4 MG CAP.ER.24H PO STA (10:51)
[2019-11-16 11:22] LABS: ANA Pattern Speckled; ANA Pattern 2 Nucleolar
[2019-11-16 11:46] LABS: Glucose,Whole Blood 161 mg/dL (75-99)
--- NOTE | 2019-11-16 12:05 | XR ---
EXAMINATION TYPE: XR chest 1V DATE OF EXAM: 11/16/2019 HISTORY: Shortness of breath. COMPARISON: 11/14/2019 TECHNIQUE: Single view of the chest is submitted. FINDINGS: Demonstrated are scattered senescent parenchymal change. There is no evidence for focal infiltrate. The heart is stable. Hilar and mediastinal structures are within normal limits. Degenerative changes are seen of the dorsal spine. IMPRESSION: 1. Chronic changes without evidence for acute pulmonary disease.
[2019-11-16] MEDS: CEFEPIME 2 GM in SODIUM CHLORIDE 0.9% 100 ML IVPB SCH (12:43)
--- NOTE | 2019-11-16 13:01 | P.DS ---
Providers Date of admission: 11/03/19 08:29 Attending physician: Isabell Huertas Consults: 11/03/19 08:18 Consult Physician Routine Consulting Provider: Ryan Malin Consult Reason/Comments: neck pain Do you want consulting provider notified?: Yes Consult Physician Routine Consulting Provider: Shad Grier Consult Reason/Comments: degenerative cervical spine Do you want consulting provider notified?: Yes 11/03/19 08:28 Consult Physician Routine Consulting Provider: Haritha Yap Consult Reason/Comments: elevated CRP Do you want consulting provider notified?: Yes 11/12/19 11:32 Consult Physician Stat Consulting Provider: Yong Blake Consult Reason/Comments: abnormal WBC scan/ possible septic arthititis of right shoulder Do you want consulting provider notified?: Yes Primary care physician: Rk Mendoza [facility] Course: 69-year-old male was admitted the with fever and neck pain leukocytosis, patient was extensively evaluated for sepsis source of sepsis is not clear patient was on multiple antibiotics during the course of hospital patient initially was on broad-spectrum cover any gram negatives as well as gram-positive as well as a the gram-positive coverage was discontinued patient is started having worsening leukocytosis because of which patient was restarted back on vancomycin. Patient is presently on vancomycin and cefepime and metronidazole and possibility of addition of antifungal. Patient came in with the back pain and neck pain because of which patient had a cervical spine MRI which did not show any discitis, patient was also evaluated with a computed tomography scan of the abdomen and chest which didn't show any clearcut infectious source. Patient did undergo a tagged white blood cell scan which localized to the lung and right shoulder. Right shoulder has osteoarthritis because of which there is localization of inflammatory cells and also back surgery evaluated the patient and did not believe patient had the ostium myelitis of the joint and the did not require any MRI as per them. Patient CAT scan did not show any any lobar consolidation but did mention as possible atypical pneumonia and groundglass of [id number] patient was pretty much on coverage for atypical pneumonia as well. Covid 19 testing was ordered and results are still pending, although possibility is low for this. I did order SARATH and CARSON panels in any apparent was positive. ID recommended transfer to [facility] did discuss with the hospitalist in [facility] [place] who did not accept the patient for admission. He recommended outpatient ID consultation from [facility] and Continuation of antibiotics for 10-14 days. Same plan was discussed with the infectious disease doctor here in the and patient probably will be discharged on 10-14 days of broad-spectrum antibiotics along with antifungals to subacute rehabilitation. Patient will be referred to rheumatology clinic. 11/16/2019 Patient is alert oriented 3 mental status is at his baseline. She does have some pedal edema from IV fluids he is receiving which will be discontinued and patient will be resumed on 20 mg of oral Lasix and the at the rehab facility need to be reassessed for necessity of this Lasix. No significant the overnight events. Patient will be started on broad-spectrum antibiotics antibiotic decision as per infectious disease patient will receive a PICC line today after the patient will be discharged to [facility]acute re[facility] Patient is sitting up in the chair, lethargic although easily arousable, alert and oriented 3, well-developed, well-nourished, obese. HEENT: Normocephalic. Neck is supple. Pupils reactive. Nostrils clear. Oral cavity is moist. Ears reveal no drainage. Neck reveals no JVD, carotid bruits, or thyromegaly. CHEST EXAMINATION: Trachea is central. Symmetrical expansion. Bibasilar crackles and no wheezing. Nonlabored breathing.. CARDIAC: Normal S1, S2 with no gallops. No murmurs ABDOMEN: Soft. Bowel sounds normal. No organomegaly. No abdominal bruits. Extremities: Bilateral lower extremity 1+ edema. No clubbing or cyanosis, improved, bilateral shoulder tenderness on palpation and lower back tenderness upon palpation. Neurologically alert, oriented x3 with well-coordinated movements. No focal deficits noted. Diffusely weak. Skin: No rash or skin lesions. Psychiatric: Cooperative. Non-suicidal Musculoskeletal: No joint swelling or deformity. Normal range of motion. Assessment and Plan Plan: Right sided neck pain and upper arm pain likely due to advanced spondylitic changes in the lower cervical spine. -Systemic inflammatory response syndrome or sepsis without any clear source: Etiology is not clear patient is presently on broad-spectrum antibiotics as me ntioned above and plan as mentioned above Intractable nausea vomiting. Possible gastritis improved Recent antibiotic course for possible sepsis at [facility] Due to bilateral lower extremity cellulitis status post antibiotic course with PICC line complicated by DVT. Recent upper extremity DVT. Currently on Eliquis Pulmonary interstitial infiltrates unchanged from previous admission in September 2019 Coronary artery disease with history of stent placement History of back surgery Chronic bilateral lower acuity swelling due to venous insufficiency. Chronic CHF with diastolic dysfunction patient is not in heart failure exacerbation , patient is being resumed on oral Lasix. Chest x-ray did not show any decreased of pulmonary edema pleural effusion any to be reassessed for necessary of this Lasix as an outpatient Diabetes type 2 insulin-dependent Obstructive sleep apnea on CPAP at home Morbid obesity with BMI 36.0 Chronic hypoxic respiratory failure secondary to COPD History of TIAs History of nonsustained V. tach Osteoarthritis GERD Hyperlipidemia DVT prophylaxis patient is already on anticoagulation Patient Condition at Discharge: Fair Plan - Discharge Summary Discharge Rx Participant: No New Discharge Prescriptions: New Gabapentin [Neurontin] 200 mg PO TID #60 cap Acetaminophen Tab [Tylenol] 650 mg PO Q6HR PRN #0 tab PRN Reason: Fever And/ Or Pain Aspirin 81 mg PO DAILY #10 chewable Furosemide [Lasix] 20 mg PO BID #10 tab INSULIN LISPRO (humaLOG) [humaLOG] 1 injection SQ DIRECTED #10 ml Continue Omeprazole [PriLOSEC] 20 mg PO HS Nitroglycerin Sl Tabs [Nitrostat] 0.4 mg SUBLINGUAL Q5M PRN PRN Reason: Chest Pain Atorvastatin [Lipitor] 80 mg PO DAILY Tamsulosin HCl [Flomax] 0.4 mg PO HS Fluticasone/Vilanterol [Breo Ellipta 100-25 Mcg Inhaler] 1 puff INHALATION RT-DAILY Potassium Chloride ER [K-Dur 20] 20 meq PO BID #0 Pramipexole Di-HCl [Mirapex] 1 mg PO DAILY Metoprolol Tartrate 25 mg PO BID Ipratropium-Albuterol Nebulize [Duoneb 0.5 mg-3 mg/3 ml Soln] 3 ml INHALATION RT-QID PRN PRN Reason: Shortness Of Breath Apixaban [Eliquis] 5 mg PO BID Linezolid 600 mg PO Q12H Ketoconazole [Ketoconazole 2% Shampoo] 1 applic TOPICAL Q72H oxyCODONE-APAP 7.5-325MG [Percocet 7.5-325 mg] 1 tab PO QID PRN #30 tab PRN Reason: Pain Discontinued Aspirin 325 mg PO DAILY Glimepiride [Amaryl] 2 mg PO AC-BRKFST Insulin Glargine [Lantus] 50 unit SQ HS #0 INSULIN ASPART (NovoLOG) [NovoLOG (formulary)] 15 unit SQ AC-TID #1 vial Furosemide [Lasix] 20 mg PO BID Discharge Medication List Nitroglycerin Sl Tabs [Nitrostat] 0.4 mg SUBLINGUAL Q5M PRN 03/09/14 [History] Omeprazole [PriLOSEC] 20 mg PO HS 03/09/14 [History] Atorvastatin [Lipitor] 80 mg PO DAILY 05/08/15 [History] Tamsulosin HCl [Flomax] 0.4 mg PO HS 10/09/16 [History] Fluticasone/Vilanterol [Breo Ellipta 100-25 Mcg Inhaler] 1 puff INHALATION RT- DAILY 03/12/18 [History] Potassium Chloride ER [K-Dur 20] 20 meq PO BID #0 03/15/18 [Rx] Ipratropium-Albuterol Nebulize [Duoneb 0.5 mg-3 mg/3 ml Soln] 3 ml INHALATION RT-QID PRN 09/02/19 [History] Metoprolol Tartrate 25 mg PO BID 09/02/19 [History] Pramipexole Di-HCl [Mirapex] 1 mg PO DAILY 09/02/19 [History] Apixaban [Eliquis] 5 mg PO BID 11/01/19 [History] Ketoconazole [Ketoconazole 2% Shampoo] 1 applic TOPICAL Q72H 11/01/19 [History] Linezolid 600 mg PO Q12H 11/01/19 [History] Acetaminophen Tab [Tylenol] 650 mg PO Q6HR PRN #0 tab 11/16/19 [Rx] Aspirin 81 mg PO DAILY #10 chewable 11/16/19 [Rx] Furosemide [Lasix] 20 mg PO BID #10 tab 11/16/19 [Rx] Gabapentin [Neurontin] 200 mg PO TID #60 cap 11/16/19 [Rx] INSULIN LISPRO (humaLOG) [humaLOG] 1 injection SQ DIRECTED #10 ml 11/16/19 [Rx] oxyCODONE-APAP 7.5-325MG [Percocet 7.5-325 mg] 1 tab PO QID PRN #30 tab 11/16/19 [Rx] Follow up Appointment(s)/Referral(s): Kris Peterson MD [STAFF PHYSICIAN] - 1 Week Rk Keene III, MD [Primary Care Provider] - 1-2 days Daryl Smith PAC [PHYSICIAN CLEANING MAID] - 2 Weeks (Patient may follow-up with Daryl Smtih PA-C or Dr. Nickolas Grier at [facility] in 2-3 months as previously scheduled following discharge. ) Melanie Plascencia MD [STAFF PHYSICIAN] - 1 Week Discharge Disposition: TRANSFER TO SNF/ECF
--- NOTE | 2019-11-16 14:07 | PN ---
PROGRESS NOTE DATE OF SERVICE: 11/16/2019 REASON FOR FOLLOWUP: Fever and leukocytosis; unknown source and a question of pneumonia. INTERVAL HISTORY: The patient is currently afebrile. The patient is breathing comfortably. Denies having any chest pain or shortness of breath. Occasional cough. No nausea. No abdominal pain, no diarrhea. PHYSICAL EXAMINATION: Blood pressure 136/65, pulse of 102, temperature 98.2, she is 93% on room air. General description is an elderly male up in the chair in no distress. RESPIRATORY SYSTEM: Unlabored breathing, decreased breath sounds at bases, no wheeze. HEART: S1, S2. Regular rate and rhythm. ABDOMEN: Soft, no tenderness. LABS: Blood culture has been negative. DIAGNOSTIC IMPRESSION AND PLAN: Patient with fever and leukocytosis in this patient with the hospital predominantly with neck and right shoulder, forearm pain. The patient did have the extensive workup including an MRI of the cervical spine, CT of abdomen and pelvis which was suggestive of cystitis, though his UA was negative. There is no destructive changes in his lumbar spine on the CT of abdomen and pelvis image, subsequent did have WBC scan which is possibly the left hip, left shoulder septic arthritis and pneumonia. The patient has been on cefepime and vancomycin with Eraxis yesterday; however, the patient could have waxing and waning white count but his fever has resolved. Family wants the patient to be transferred to [facility] which has been refused and wanted the patient to be treated with IV antibiotic x2 weeks and to follow up with ID physician as outpatient, is currently being arranged by the admitting physician. Continue cefepime 2 g q.12. Vancomycin pharmacy to dose trough around 15 and Eraxis for 2 weeks and close outpatient followup. MMODL / IJN: [id number] /
[2019-11-16 14:38] VITALS: BMI 34.9
[2019-11-16] MEDS ORDERED: VANCOMYCIN TROUGH DUE 1 EACH MISC MISCELLANE ONE (15:00)
[2019-11-16 17:00] LABS: Glucose,Whole Blood 174 mg/dL (75-99)
[2019-11-16] MEDS: VANCOMYCIN 1,500 MG in SODIUM CHLORIDE 0.9% 250 ML IVPB SCH (17:11)
[2019-11-16 20:54] LABS: Glucose,Whole Blood 138 mg/dL (75-99)
[2019-11-16] MEDS ORDERED: ANIDULAFUNGIN 100 MG in SODIUM CHLORIDE 0.9% 100 ML IVPB SCH (21:00)
[2019-11-16] MEDS: PRAMIPEXOLE 1 MG TAB PO SCH (21:29)
[2019-11-16] MEDS: PANTOPRAZOLE 40 MG TABLET PO SCH (21:30)
[2019-11-16] MEDS: QUEtiapine 25 MG TAB PO SCH (21:30)
[2019-11-16] MEDS: TAMSULOSIN 0.4 MG CAP.ER.24H PO SCH (21:30)
[2019-11-17] MEDS ORDERED: VANCOMYCIN 1,500 MG in SODIUM CHLORIDE 0.9% 250 ML IVPB SCH ×2
[2019-11-17] MEDS: CEFEPIME 2 GM in SODIUM CHLORIDE 0.9% 100 ML IVPB SCH ×2 (00:42→12:06)
[2019-11-17 06:46] LABS: Glucose,Whole Blood 99 mg/dL (75-99)
[2019-11-17 08:07] LABS: Basophils % (A) 0 %; Eosinophils # (A) 0.9 k/uL (0-0.7); Eosinophils % (A) 6 %; HCT 25.2 % (39.0-53.0); HGB 7.9 gm/dL (13.0-17.5); Hypochromasia Moderate; Lymphocytes # (A) 1.2 k/uL (1.0-4.8); Lymphocytes % (A) 8 %; MCH 29.3 pg (25.0-35.0); MCHC 31.3 g/dL (31.0-37.0); MCV 93.5 fL (80.0-100.0); Mean Platelet Volume 8.2; Monocytes # (A) 0.6 k/uL (0-1.0); Monocytes % (A) 4 %; Neutrophils # (A) 11.3 k/uL (1.3-7.7); Neutrophils % (A) 80 %; Platelet Count 546 k/uL (150-450); Poikilocytosis Slight
[2019-11-17 08:15] LABS: Calcium 8.7 mg/dL (8.4-10.2); Potassium 5.1 mmol/L (3.5-5.1)
[2019-11-17] MEDS: INSULIN ASPART (NovoLOG) 100 UNIT/ML VIAL SQ SCH ×2 (08:29→12:07)
[2019-11-17] MEDS ORDERED: TAMSULOSIN 0.4 MG CAP.ER.24H PO SCH (08:30)
[2019-11-17] MEDS: METOPROLOL TARTRATE 25 MG TAB PO SCH (08:37)
[2019-11-17] MEDS: APIXABAN 5 MG TAB PO SCH (08:37)
[2019-11-17] MEDS: ATORVASTATIN 80 MG TAB PO SCH (08:37)
[2019-11-17] MEDS: POTASSIUM CHLORIDE ER 20 MEQ TAB.ER PO SCH (08:37)
[2019-11-17] MEDS: ASPIRIN 325 MG TAB PO SCH (08:37)
[2019-11-17] MEDS: GABAPENTIN 100 MG CAP PO SCH (08:38)
[2019-11-17] MEDS: KETOROLAC 15 MG/ML 1 ML VIAL IVP PRN (08:38)
[2019-11-17] MEDS: oxyCODONE-APAP 10-325MG 1 EACH TAB PO PRN ×2 (08:38→14:21)
[2019-11-17] MEDS: SODIUM CHLORIDE 0.9% 1,000 ML IV SCH (08:39)
[2019-11-17] MEDS: SYMBICORT 80-4.5 MCG INHALER INHALATION SCH (08:42)
[2019-11-17 09:27] LABS: C Reactive Protein 167.3 mg/L (<10.0)
--- NOTE | 2019-11-17 09:27 | IR ---
EXAMINATION TYPE: IR cvc insert >=5 years DATE OF EXAM: 11/16/2019 COMPARISON: Chest radiograph 11/16/2019 CLINICAL HISTORY: Infection, need for long-term antibiotics PERSONAL BANKING ADVISOR: Dr. Toña Diaz PROCEDURE: Maximal barrier technique utilized. After informed consent, the skin overlying the left brachial vein was localized with ultrasound and noted to be compressible and patent. An ultrasound image was obta ined and submitted on the patient's chart. Sterile technique utilized with the ultrasound machine. Th e skin overlying was prepped and draped and Lidocaine used for local anesthesia. Access was gained to the vein under ultrasound guidance with a 21 gauge needle and a 0.018 inch wire was advanced. A skin edy was made with a scalpel. Access site was dilated with Peel-Away sheath. [address] tailored to the appropriate length of 43 cm and advanced such that the distal tip is at the cavoa trial junction, at 42 cm depth. Spot image was obtained verifying PICC placement. Catheter was fixed to the skin and a sterile dressing was placed following hemostasis. Catheter was aspirated and flushe d with saline. Patient was discharged from the radiology department in stable condition without immed iate complication. Fluoro time: 0.1 minutes Fluoroscopic images obtained: 59 IMPRESSION: Status post ultrasound-guided and fluoroscopic-guided PICC placement, ready for use.
[2019-11-17 11:53] LABS: Glucose,Whole Blood 146 mg/dL (75-99)
--- NOTE | 2019-11-17 12:30 | P.DS ---
Providers Date of admission: 11/03/19 08:29 Expected date of discharge: 11/17/19 Attending physician: Isabell Huertas Consults: 11/03/19 08:18 Consult Physician Routine Consulting Provider: Ryan Malin Consult Reason/Comments: neck pain Do you want consulting provider notified?: Yes Consult Physician Routine Consulting Provider: Shad Grier Consult Reason/Comments: degenerative cervical spine Do you want consulting provider notified?: Yes 11/03/19 08:28 Consult Physician Routine Consulting Provider: Haritha Yap Consult Reason/Comments: elevated CRP Do you want consulting provider notified?: Yes 11/12/19 11:32 Consult Physician Stat Consulting Provider: Yong Blake Consult Reason/Comments: abnormal WBC scan/ possible septic arthititis of right shoulder Do you want consulting provider notified?: Yes Primary care physician: Rk Mendoza [facility] Course: Final diagnosis 69-year-old male was admitted the with fever and neck pain leukocytosis, patient was extensively evaluated for sepsis source of sepsis is not clear patient was on multiple antibiotics during the course of hospital patient initially was on broad-spectrum cover any gram negatives as well as gram-positive as well as a the gram-positive coverage was discontinued patient is started having worsening leukocytosis because of which patient was restarted back on vancomycin. Patient is presently on vancomycin and cefepime and metronidazole and possibility of addition of antifungal. Patient came in with the back pain and neck pain because of which patient had a cervical spine MRI which did not show any discitis, patient was also evaluated with a computed tomography scan of the abdomen and chest which didn't show any clearcut infectious source. Patient did undergo a tagged white blood cell scan which localized to the lung and right shoulder. Right shoulder has osteoarthritis because of which there is localization of inflammatory cells and also back surgery evaluated the patient and did not believe patient had the ostium myelitis of the joint and the did not require any MRI as per them. Patient CAT scan did not show any any lobar consolidation but did mention as possible atypical pneumonia and groundglass of [id number] patient was pretty much on coverage for atypical pneumonia as well. Covid 19 testing was ordered and results are still pending, although p ossibility is low for this. I did order SARATH and CARSON panels in any apparent was positive. ID recommended transfer to [facility] did discuss with the hospitalist in was to [place] who did not accept the patient for admission. He recommended outpatient ID consultation from [facility] and Continuation of antibiotics for 10-14 days. Same plan was discussed with the infectious dis ease doctor here in the and patient probably will be discharged on 10-14 days of broad-spectrum antibiotics along with antifungals to subacute rehabilitation. Patient will be referred to rheumatology clinic. 11/16/2019 Patient is alert oriented 3 mental status is at his baseline. She does have some pedal edema from IV fluids he is receiving which will be discontinued and patient will be resumed on 20 mg of oral Lasix and the at the rehab facility need to be reassessed for necessity of this Lasix. No significant the overnight events. Patient will be started on broad-spectrum antibiotics antibiotic decision as per infectious disease patient will receive a PICC line today after the patient will be discharged to subacute rehab/longterm 11/17/2019 Patient is seen and evaluated and follow-up currently sitting up in the chair alert and oriented 3 with at the bedside. Patient continues to have some mild lower extremity edema although creatinine is slightly elevating and will discontinue Lasix at this time. Patient to have repeat labs in a few days to monitor kidney functions. Patient is maintained on broad-spectrum antibiotics per infectious disease and will continue in the outpatient setting. Discussed with family at length about discharging the ECF and patient will continue with PT/OT therapy there. Patient instructed to follow-up with primary care provider along with pain management in the outpatient setting. Patient is sitting up in the chair, awake, alert and oriented 3, well- developed, well-nourished, obese. HEENT: Normocephalic. Neck is supple. Pupils reactive. Nostrils clear. Oral cavity is moist. Ears reveal no drainage. Neck reveals no JVD, carotid bruits, or thyromegaly. CHEST EXAMINATION: Trachea is central. Symmetrical expansion. Bibasilar crackles and no wheezing. Nonlabored breathing.. CARDIAC: Normal S1, S2 with no gallops. No murmurs ABDOMEN: Soft. Bowel sounds normal. No organomegaly. No abdominal bruits. Extremities: Bilateral lower extremity 1+ edema. No clubbing or cyanosis, improved, bilateral shoulder tenderness on palpation and lower back tenderness upon palpation. Neurologically alert, oriented x3 with well-coordinated movements. No focal deficits noted. Diffusely weak. Skin: No rash or skin lesions. Psychiatric: Cooperative. Non-suicidal Musculoskeletal: No joint swelling or deformity. Normal range of motion. Assessment and Plan Plan: Right sided neck pain and upper arm pain likely due to advanced spondylitic changes in the lower cervical spine. Systemic inflammatory response syndrome or sepsis without any clear source: Etiology is not clear patient is presently on broad-spectrum antibiotics Covid 19 ruled out, testing was negative Intractable nausea vomiting. Possible gastritis improved Recent antibiotic course for possible sepsis at [facility] Due to bilateral lower extremity cellulitis status post antibiotic course with PICC line complicated by DVT. Recent upper extremity DVT. Currently on Eliquis Pulmonary interstitial infiltrates unchanged from previous admission in September 2019 Coronary artery disease with history of stent placement History of back surgery Chronic bilateral lower acuity swelling due to venous insufficiency. Chronic CHF with diastolic dysfunction patient is not in heart failure exacerbation Diabetes type 2 insulin-dependent Obstructive sleep apnea on CPAP at home Morbid obesity with BMI 36.0 Chronic hypoxic respiratory failure secondary to COPD History of TIAs History of nonsustained V. tach Osteoarthritis GERD Hyperlipidemia DVT prophylaxis patient is already on anticoagulation Patient Condition at Discharge: Fair Plan - Discharge Summary Discharge Rx Participant: No New Discharge Prescriptions: New Gabapentin [Neurontin] 200 mg PO TID #60 cap Acetaminophen Tab [Tylenol] 650 mg PO Q6HR PRN #0 tab PRN Reason: Fever And/ Or Pain Aspirin 81 mg PO DAILY #10 chewable INSULIN LISPRO (humaLOG) [humaLOG] 1 injection SQ DIRECTED #10 ml Cefepime [Maxipime] 2 gm IVPB Q12H #20 bag Non Formulary Drug 1 each PO ONCE 10 Days #10 bag Vancomycin HCl in 5 % Dextrose [Vancomycin 1 Gram/250 ml-D5w] 1.25 gm IV BID #20 plast..bag Lidocaine 5% Patch [Lidoderm 5% Patch] 1 patch TOPICAL DAILY #30 patch polyethylene glycoL 3350 [Miralax] 17 gm PO DAILY PRN #15 packet PRN Reason: Constipation Aspirin 325 mg PO DAILY tab Tamsulosin [Flomax] 0.4 mg PO HS cap.er.24h Tamsulosin [Flomax] 0.4 mg PO PC-BRKFST cap.er.24h haloperidoL [Haldol] 2 mg PO TID PRN tab PRN Reason: Agitation INSULIN ASPART (NovoLOG) [NovoLOG (formulary)] 0 unit SQ ACHS vial oxyCODONE-APAP 10-325MG [Percocet 10-325 mg] 1 each PO Q6H PRN #10 tab PRN Reason: Pain QUEtiapine [SEROquel] 25 mg PO HS tab Continue Omeprazole [PriLOSEC] 20 mg PO HS Nitroglycerin Sl Tabs [Nitrostat] 0.4 mg SUBLINGUAL Q5M PRN PRN Reason: Chest Pain Atorvastatin [Lipitor] 80 mg PO DAILY Fluticasone/Vilanterol [Breo Ellipta 100-25 Mcg Inhaler] 1 puff INHALATION RT-DAILY Potassium Chloride ER [K-Dur 20] 20 meq PO BID #0 Pramipexole Di-HCl [Mirapex] 1 mg PO DAILY Metoprolol Tartrate 25 mg PO BID Ipratropium-Albuterol Nebulize [Duoneb 0.5 mg-3 mg/3 ml Soln] 3 ml INHALATION RT-QID PRN PRN Reason: Shortness Of Breath Apixaban [Eliquis] 5 mg PO BID Ketoconazole [Ketoconazole 2% Shampoo] 1 applic TOPICAL Q72H Discontinued Tamsulosin HCl [Flomax] 0.4 mg PO HS Aspirin 325 mg PO DAILY Glimepiride [Amaryl] 2 mg PO AC-BRKFST Insulin Glargine [Lantus] 50 unit SQ HS #0 INSULIN ASPART (NovoLOG) [NovoLOG (formulary)] 15 unit SQ AC-TID #1 vial Furosemide [Lasix] 20 mg PO BID oxyCODONE-APAP 7.5-325MG [Percocet 7.5-325 mg] 1 tab PO QID PRN PRN Reason: Pain Linezolid 600 mg PO Q12H Discharge Medication List Nitroglycerin Sl Tabs [Nitrostat] 0.4 mg SUBLINGUAL Q5M PRN 03/09/14 [History] Omeprazole [PriLOSEC] 20 mg PO HS 03/09/14 [History] Atorvastatin [Lipitor] 80 mg PO DAILY 05/08/15 [History] Fluticasone/Vilanterol [Breo Ellipta 100-25 Mcg Inhaler] 1 puff INHALATION RT- DAILY 03/12/18 [History] Potassium Chloride ER [K-Dur 20] 20 meq PO BID #0 03/15/18 [Rx] Ipratropium-Albuterol Nebulize [Duoneb 0.5 mg-3 mg/3 ml Soln] 3 ml INHALATION RT-QID PRN 09/02/19 [History] Metoprolol Tartrate 25 mg PO BID 09/02/19 [History] Pramipexole Di-HCl [Mirapex] 1 mg PO DAILY 09/02/19 [History] Apixaban [Eliquis] 5 mg PO BID 11/01/19 [History] Ketoconazole [Ketoconazole 2% Shampoo] 1 applic TOPICAL Q72H 11/01/19 [History] Acetaminophen Tab [Tylenol] 650 mg PO Q6HR PRN #0 tab 11/16/19 [Rx] Aspirin 81 mg PO DAILY #10 chewable 11/16/19 [Rx] Cefepime [Maxipime] 2 gm IVPB Q12H #20 bag 11/16/19 [Rx] Gabapentin [Neurontin] 200 mg PO TID #60 cap 11/16/19 [Rx] INSULIN LISPRO (humaLOG) [humaLOG] 1 injection SQ DIRECTED #10 ml 11/16/19 [Rx] Non Formulary Drug 1 each PO ONCE 10 Days #10 bag 11/16/19 [Rx] Vancomycin HCl in 5 % Dextrose [Vancomycin 1 Gram/250 ml-D5w] 1.25 gm IV BID #20 plast..bag 11/16/19 [Rx] Aspirin 325 mg PO DAILY tab 11/17/19 [Rx] INSULIN ASPART (NovoLOG) [NovoLOG (formulary)] 0 unit SQ ACHS vial 11/17/19 [Rx] Lidocaine 5% Patch [Lidoderm 5% Patch] 1 patch TOPICAL DAILY #30 patch 11/17/19 [Rx] QUEtiapine [SEROquel] 25 mg PO HS tab 11/17/19 [Rx] Tamsulosin [Flomax] 0.4 mg PO HS cap.er.24h 11/17/19 [Rx] Tamsulosin [Flomax] 0.4 mg PO PC-BRKFST cap.er.24h 11/17/19 [Rx] haloperidoL [Haldol] 2 mg PO TID PRN tab 11/17/19 [Rx] oxyCODONE-APAP 10-325MG [Percocet 10-325 mg] 1 each PO Q6H PRN #10 tab 11/17/19 [Rx] polyethylene glycoL 3350 [Miralax] 17 gm PO DAILY PRN #15 packet 11/17/19 [Rx] Follow up Appointment(s)/Referral(s): Kris Peterson MD [STAFF PHYSICIAN] - 1 Week Rk Keene III, MD [Primary Care Provider] - 1-2 days Daryl Smith PAC [PHYSICIAN ASSOCIATE DATA SCIENTIST] - 2 Weeks (Patient may follow-up with Daryl Smith PA-C or Dr. Nickolas Grier at [facility] in 2-3 months as previously scheduled following discharge. ) Melanie Plascencia MD [STAFF PHYSICIAN] - 1 Week Eliceo Rahman MD [STAFF PHYSICIAN] - 3 Days Ambulatory/Diagnostic Orders: Basic Metabolic Panel [LAB.AMB] Location: None Selected C Reactive Protein [LAB.AMB] Location: None Selected Complete Blood Count w/diff [LAB.AMB] Location: None Selected Erythrocyte Sedimentation Rate [LAB.AMB] Location: None Selected Activity/Diet/Wound Care/Special Instructions: Patient is going to [facility] as tolerated Continue with IV antibiotic therapy and antifungal's per infectious disease Continue to monitor blood sugars before meals at bedtime and treat accordingly Repeat labs in 2-3 days Follow-up with primary care provider upon discharge Follow-up with pain management in the outpatient setting Continue with indwelling Finch catheter at this time due to retention and follow-up with urology in the outpatient setting Consult urology outpatient for retention Discharge Disposition: TRANSFER TO SNF/F
[2019-11-17 15:05] VITALS: PULSE 90; RESP 18; TEMP 98.3
[2019-11-17 15:06] VITALS: BP 166/73
--- NOTE | 2019-11-17 15:28 | PN ---
PROGRESS NOTE DATE OF SERVICE: 11/17/2019 REASON FOR FOLLOWUP: Leukocytosis and question of pneumonia. INTERVAL HISTORY: The patient is currently afebrile. He was seen on rounds this morning. The patient is breathing comfortably. Did have very minimal cough, no sputum. No nausea, no vomiting, no abdominal pain. No diarrhea. The patient complaining of generalized body aches and lower back pain. PHYSICAL EXAMINATION: Blood pressure 132/70 with a pulse of 83, temperature 98.3. He is 96% on room air. General description is an elderly male who is in the chair in no distress. HEENT: Examination is slight pallor. No scleral icterus. Oral mucosa membrane is dry. LUNGS: Unlabored breathing, decreased breath sounds in the base, with no wheeze. HEART: S1, S2. Regular rate and rhythm. ABDOMEN: Soft. No tenderness. EXTREMITIES: No edema of the feet. SKIN: Examination no rash or mass palpable. LABS: Hemoglobin 7.8, white count of 14,000 which is less than 2 days ago of 15.8, creatinine is 1.22. CRP is down to 163 considering to highs of 428. Culture remains to be negative. DIAGNOSTIC IMPRESSION AND PLAN: Patient with fever and leukocytosis in this patient did have extensive workup including a MRI of the cervical spine. The patient did have CT of the chest with question of pneumonia. CT abdominal pannus with question of cystitis, though his UA was negative and urine culture has been negative. The patient had thoracic and lumbar spine which did show some degenerative changes but no changes of osteomyelitis. The patient culture has been negative. The patient was supposed to be transferred to [facility] for a second opinion. However, they have refused and they advised patient to be discharged on 2 week course of IV antibiotics and they will see him as an outpatient. I had a detailed discussion with the one more time this morning, the transaction has been more than 25 minutes. There is diffuse regarding bedded nature of his antibiotic as we do not have a definite focus of infection. The patient seemed to have shown clinical improvement and his white count is showing a downward trend and CRP is trending down as well. Those will be monitored closely in outpatient setting. The patient may benefit from Rheumatology evaluation to look for any rheumatalgic etiology for this fever and elevated white count. MMODL / IJN: [id number] /
== END 2019-11-17 15:04 | DRG 551 ==
LOC: EC 04:03 → 1SOBS 08:28 → OBSVTOIN 08:29 → 1SOBS 11:40 → 3SCARD 11-05 10:15 → 4SSUR 11-10 17:06
PROVIDERS: ADMIT Hospitalist; ATTEND Hospitalist
PROC: 02HV33Z Insertion of Infusion Device into Superior Vena Cava, Percutaneous Approach (ICD-10-PCS; principal; 2019-11-17)
DX: M48.02 Spinal stenosis, cervical region (principal); A41.9 Sepsis, unspecified organism; J18.9 Pneumonia, unspecified organism; J96.11 Chronic respiratory failure with hypoxia; J98.11 Atelectasis; I50.32 Chronic diastolic (congestive) heart failure; J44.0 Chronic obstructive pulmonary disease with (acute) lower respiratory infection; M00.9 Pyogenic arthritis, unspecified; Z96.1 Presence of intraocular lens; Z96.611 Presence of right artificial shoulder joint; Z96.652 Presence of left artificial knee joint; I25.10 Atherosclerotic heart disease of native coronary artery without angina pectoris; I11.0 Hypertensive heart disease with heart failure; K21.9 Gastro-esophageal reflux disease without esophagitis; E78.5 Hyperlipidemia, unspecified; Z20.828 Contact with and (suspected) exposure to other viral communicable diseases; G47.33 Obstructive sleep apnea (adult) (pediatric); M19.90 Unspecified osteoarthritis, unspecified site; E66.01 Morbid (severe) obesity due to excess calories; M43.12 Spondylolisthesis, cervical region; R79.82 Elevated C-reactive protein (CRP); I87.2 Venous insufficiency (chronic) (peripheral); R79.89 Other specified abnormal findings of blood chemistry; M10.9 Gout, unspecified; M47.22 Other spondylosis with radiculopathy, cervical region; M50.11 Cervical disc disorder with radiculopathy, high cervical region; Z53.20 Procedure and treatment not carried out because of patient's decision for unspecified reasons; J98.4 Other disorders of lung; E11.51 Type 2 diabetes mellitus with diabetic peripheral angiopathy without gangrene; N30.90 Cystitis, unspecified without hematuria; K29.70 Gastritis, unspecified, without bleeding; Z87.891 Personal history of nicotine dependence; Z68.36 Body mass index [BMI] 36.0-36.9, adult; Z79.82 Long term (current) use of aspirin; Z79.4 Long term (current) use of insulin; Z79.01 Long term (current) use of anticoagulants; Z79.899 Other long term (current) drug therapy; Z88.8 Allergy status to other drugs, medicaments and biological substances; Z86.73 Personal history of transient ischemic attack (TIA), and cerebral infarction without residual deficits; Z87.19 Personal history of other diseases of the digestive system; Z95.5 Presence of coronary angioplasty implant and graft; Z86.718 Personal history of other venous thrombosis and embolism; Z87.01 Personal history of pneumonia (recurrent); Z99.89 Dependence on other enabling machines and devices; Z99.81 Dependence on supplemental oxygen; Z98.41 Cataract extraction status, right eye; Z98.42 Cataract extraction status, left eye; Z98.890 Other specified postprocedural states; Z82.49 Family history of ischemic heart disease and other diseases of the circulatory system; Z83.438 Family history of other disorder of lipoprotein metabolism and other lipidemia; Z86.19 Personal history of other infectious and parasitic diseases; Z82.3 Family history of stroke
CPT/HCPCS: 36415; 36573; 71045; 71046; 71250; 71275; 72125; 72156; 74176; 78306; 80048; 80053; 80202; 81001; 81003; 82565; 83605; 83880; 84145; 84439; 84443; 84484; 85025; 85027; 85379; 85652; 86038; 86039; 86140; 86235; 87040; 93005; 94640; 96374; 96375; 96376; 99285

== ENCOUNTER 2019-11-23 04:14 | Observation (INO) | payer MEDICARE ==
--- NOTE | 2019-11-23 05:31 | XR ---
EXAMINATION TYPE: XR chest 1V portable DATE OF EXAM: 11/23/2019 COMPARISON: 11/16/2019 HISTORY: Fever TECHNIQUE: FINDINGS: There is no heart failure nor confluent pneumonic infiltrate. There is right shoulder prost hesis. There is no sign of pleural effusion. Thoracic aorta is atheromatous. IMPRESSION: No active cardiopulmonary disease. No change.
[2019-11-23] MEDS: SODIUM CHLORIDE 0.9% 1,000 ML IV SCH ×3 (05:52→22:19)
[2019-11-23 06:25] LABS: Anisocytosis Slight; Basophils # (A) 0.1 k/uL (0-0.2); Basophils % (A) 1 %; Eosinophils # (A) 0.5 k/uL (0-0.7); Eosinophils % (A) 5 %; HCT 25.9 % (39.0-53.0); HGB 8.1 gm/dL (13.0-17.5); Hypochromasia Moderate; Lymphocytes # (A) 1.3 k/uL (1.0-4.8); Lymphocytes % (A) 12 %; MCH 29.1 pg (25.0-35.0); MCHC 31.1 g/dL (31.0-37.0); MCV 93.5 fL (80.0-100.0); Mean Platelet Volume 7.8; Monocytes # (A) 0.9 k/uL (0-1.0); Monocytes % (A) 8 %; Neutrophils # (A) 7.7 k/uL (1.3-7.7); Neutrophils % (A) 72 %; Platelet Count 467 k/uL (150-450); RBC 2.77 m/uL (4.30-5.90); RDW 16.3 % (11.5-15.5); WBC 10.8 k/uL (3.8-10.6)
[2019-11-23 06:34] LABS: Albumin 2.7 g/dL (3.5-5.0); Calcium 9.7 mg/dL (8.4-10.2); Potassium 4.8 mmol/L (3.5-5.1); Total Bilirubin 0.6 mg/dL (0.2-1.3); Total Protein 5.6 g/dL (6.3-8.2)
[2019-11-23 06:36] LABS: Appearance,Urine Clear (Clear); Bacteria,Urine Occasional /hpf; Bilirubin,Urine Negative (Negative); Blood,Urine Large (Negative); Color,Urine Yellow; Glucose,Urine (UA) Negative (Negative); Ketones,Urine Negative (Negative); Leukocyte Esterase,Urine Small (Negative); Mucus,Urine Rare /hpf; Nitrite,Urine Negative (Negative); PH, Urine 5.5 (5.0-8.0); Protein,Urine 1+ (Negative); RBC,Urine >182 /hpf (0-5); Specific Gravity,Urine 1.014 (1.001-1.035); Urobilinogen,Urine <2.0 mg/dL (<2.0); WBC,Urine 6 /hpf (0-5)
[2019-11-23 06:37] LABS: INR 1.3 (<1.2); Partial Thromboplastin Time 26.3 sec (22.0-30.0); Prothrombin Time 13.1 sec (9.0-12.0)
[2019-11-23] MEDS ORDERED: NALOXONE 0.4 MG/ML 1 ML VIAL IV PRN (06:47)
--- NOTE | 2019-11-23 06:47 | ED ---
General Adult HPI - General Chief complaint: Altered Mental Status Stated complaint: pickline Time Seen by Provider: 11/23/19 05:05 Source: patient, EMS Mode of arrival: EMS - History of Present Illness Initial comments: Rogers Morley is a 69-year-old gentleman who was recently admitted to the hospital for sepsis of uncertain etiology during the hospitalization the sound that he had likely osteomyelitis and left shoulder, he had a PICC line placed and was discharged to a senior living for continuous IV antibiotics for 14 days. Tonight at the senior living the patient became altered and inadvertently pulled out his PICC line. Staff reported that he had been febrile however he received antipyretics prior to transfer back to the hospital. Upon arrival patient was unaware that he had pulled his PICC line and uncertain why he was sent to the hospital. Denied any acute complaints. - Related Data Home Medications Medication Instructions Recorded Confirmed Nitroglycerin Sl Tabs [Nitrostat] 0.4 mg SUBLINGUAL Q5M PRN 03/09/14 11/03/19 Omeprazole [PriLOSEC] 20 mg PO HS 03/09/14 11/03/19 Atorvastatin [Lipitor] 80 mg PO DAILY 05/08/15 11/03/19 Fluticasone/Vilanterol [Breo 1 puff INHALATION RT-DAILY 03/12/18 11/03/19 Ellipta 100-25 Mcg Inhaler] Ipratropium-Albuterol Nebulize 3 ml INHALATION RT-QID PRN 09/02/19 11/03/19 [Duoneb 0.5 mg-3 mg/3 ml Soln] Metoprolol Tartrate 25 mg PO BID 09/02/19 11/03/19 Pramipexole Di-HCl [Mirapex] 1 mg PO DAILY 09/02/19 11/03/19 Apixaban [Eliquis] 5 mg PO BID 11/01/19 11/03/19 Ketoconazole [Ketoconazole 2% 1 applic TOPICAL Q72H 11/01/19 11/03/19 Shampoo] Previous Rx's Medication Instructions Recorded Potassium Chloride ER [K-Dur 20] 20 meq PO BID #0 03/15/18 Acetaminophen Tab [Tylenol] 650 mg PO Q6HR PRN #0 tab 11/16/19 Aspirin 81 mg PO DAILY #10 chewable 11/16/19 Cefepime [Maxipime] 2 gm IVPB Q12H #20 bag 11/16/19 Gabapentin [Neurontin] 200 mg PO TID #60 cap 11/16/19 INSULIN LISPRO (humaLOG) [humaLOG] 1 injection SQ DIRECTED #10 ml 11/16/19 Non Formulary Drug 1 each PO ONCE 10 Days #10 bag 11/16/19 Vancomycin HCl in 5 % Dextrose 1.25 gm IV BID #20 plast..bag 11/16/19 [Vancomycin 1 Gram/250 ml-D5w] Lidocaine 5% Patch [Lidoderm 5% 1 patch TOPICAL DAILY #30 patch 11/17/19 Patch] QUEtiapine [SEROquel] 25 mg PO HS tab 11/17/19 Tamsulosin [Flomax] 0.4 mg PO HS cap.er.24h 11/17/19 Tamsulosin [Flomax] 0.4 mg PO PC-BRKFST cap.er.24h 11/17/19 oxyCODONE-APAP 10-325MG [Percocet 1 each PO Q6H PRN #10 tab 11/17/19 10-325 mg] polyethylene glycoL 3350 [Miralax] 17 gm PO DAILY PRN #15 packet 11/17/19 Allergies Allergy/AdvReac Type Severity Reaction Status Date / Time prednisone AdvReac Extreme Verified 11/03/19 07:54 aggression with high doses Review of Systems ROS Statement: Those systems with pertinent positive or pertinent negative responses have been documented in the HPI. ROS Other: All systems not noted in ROS Statement are negative. Past Medical History Past Medical History: Coronary Artery Disease (CAD), Chest Pain / Angina, Heart Failure, COPD, GERD/Reflux, Hyperlipidemia, Hypertension, Osteoarthritis (OA), P neumonia, Prostate Disorder, Respiratory Disorder, Sleep Apnea/CPAP/BIPAP Additional Past Medical History / Comment(s): Spondylolsis, cervical and low back pain, DDD, chronic respiratory failure, CALLI with Cpap/O2 at 4L/NC at HS, nonsustained vtach, TIAs, small vessel disease, IDDM type II, diverticular disease, colon polyps-benign, sinus problems, seasonal allergies, sepsis History of Any Multi-Drug Resistant Organisms: None Reported Past Surgical History: Back Surgery, Heart Catheterization With Stent, Joint Replacement, Orthopedic Surgery Additional Past Surgical History / Comment(s): Bilateral knee arthroscopies, total L knee arthroplasty, R total shoulder arthroplasty, L hand injury with repair, PCI with 3 stents, colonoscopies/polypectomies, lumbar epidural injections, bilateral cataract removals/lens implants. Past Anesthesia/Blood Transfusion Reactions: No Reported Reaction Additional Past Anesthesia/Blood Transfusion Reaction / Comment(s): STATES "HAD A HARD TIME WITH BREATHING POST OP" Date of Last Stent Placement:: 2009 Past Psychological History: No Psychological Hx Reported Smoking Status: Former smoker Past Alcohol Use History: None Reported Past Drug Use History: None Reported - Past Family History Father Family Medical History: CVA/TIA, Hyperlipidemia, Hypertension Mother Family Medical History: Hypertension General Exam - General Exam Comments Initial Comments: Physical Exam GENERAL: Chronically ill-appearing HENT: Normocephalic, Atraumatic. EYES: PERRL, EOMI PULMONARY: Unlabored respirations. CARDIOVASCULAR: RRR Warm and well perfused extremities ABDOMEN: Non-distended SKIN: Sacral decubitus ulcer : Deferred NEUROLOGIC: Alert and oriented Normal speech Normal gait MUSCULOSKELETAL: Decreased ROM of left shoulder secondary to pain PSYCHIATRIC: Appears to be hallucinating, yelling out names and inappropriate words Course Vital Signs 11/23/19 04:17 Temperature 98.2 F Pulse Rate 87 Respiratory 19 Rate Blood Pressure 159/71 O2 Sat by Pulse 98 Oximetry EKG Findings - EKG Comments: EKG Findings:: EKG obtained as part of sepsis protocol EKG obtained at 5:43am Rate 83 sinus, ear 134, QRS 90, QTc [address] elevations or depressions no evidence of acute ischemia or infarction, PVC noted. Medical Decision Making - Medical Decision Making Patient was seen and evaluated, history is obtained from review of medical record Patient with osteomyelitis, fever, altered mental status pulled out his PICC line Repeat septic workup was initiated Labs reveal improving leukocytosis, chronic anemia Identified urinary tract infection, culture was obtained patient will be given a dose of Rocephin Patient will be admitted for PICC line placement, continued antibiotics - Lab Data Result diagrams: 11/23/19 06:10 11/23/19 06:10 Lab Results 11/23/19 11/23/19 11/23/19 Range/Units 06:10 06:10 06:10 WBC 10.8 H (3.8-10.6) k/uL RBC 2.77 L (4.30-5.90) m/uL Hgb 8.1 L (13.0-17.5) gm/dL Hct 25.9 L (39.0-53.0) % MCV 93.5 (80.0-100.0) fL MCH 29.1 (25.0-35.0) pg MCHC 31.1 (31.0-37.0) g/dL RDW 16.3 H (11.5-15.5) % Plt Count 467 H (150-450) k/uL Neutrophils % 72 % Lymphocytes % 12 % Monocytes % 8 % Eosinophils % 5 % Basophils % 1 % Neutrophils # 7.7 (1.3-7.7) k/uL Lymphocytes # 1.3 (1.0-4.8) k/uL Monocytes # 0.9 (0-1.0) k/uL Eosinophils # 0.5 (0-0.7) k/uL Basophils # 0.1 (0-0.2) k/uL Hypochromasia Moderate Anisocytosis Slight PT 13.1 H (9.0-12.0) sec INR 1.3 H (<1.2) APTT 26.3 (22.0-30.0) sec Sodium 141 (137-145) mmol/L Potassium 4.8 (3.5-5.1) mmol/L Chloride 110 H (98-107) mmol/L Carbon Dioxide 23 (22-30) mmol/L Anion Gap 8 mmol/L BUN 17 (9-20) mg/dL Creatinine 1.09 (0.66-1.25) mg/dL Est GFR (CKD-EPI)AfAm 79 (>60 ml/min/1.73 sqM) Est GFR (CKD-EPI)NonAf 68 (>60 ml/min/1.73 sqM) Glucose 91 (74-99) mg/dL Plasma Lactic Acid Teo (0.7-2.0) mmol/L Calcium 9.7 (8.4-10.2) mg/dL Total Bilirubin 0.6 (0.2-1.3) mg/dL AST 27 (17-59) U/L ALT 16 (4-49) U/L Alkaline Phosphatase 80 (38-126) U/L Total Protein 5.6 L (6.3-8.2) g/dL Albumin 2.7 L (3.5-5.0) g/dL Urine Color Urine Appearance (Clear) Urine pH (5.0-8.0) Ur Specific [place] (1.001-1.035) Urine Protein (Negative) Urine Glucose (UA) (Negative) Urine Ketones (Negative) Urine Blood (Negative) Urine Nitrite (Negative) Urine Bilirubin (Negative) Urine Urobilinogen (<2.0) mg/dL Ur Leukocyte Esterase (Negative) Urine RBC (0-5) /hpf Urine WBC (0-5) /hpf Urine Bacteria (None) /hpf Urine Mucus (None) /hpf 11/23/19 11/23/19 Range/Units 06:10 06:11 WBC (3.8-10.6) k/uL RBC (4.30-5.90) m/uL Hgb (13.0-17.5) gm/dL Hct (39.0-53.0) % MCV (80.0-100.0) fL MCH (25.0-35.0) pg MCHC (31.0-37.0) g/dL RDW (11.5-15.5) % Plt Count (150-450) k/uL Neutrophils % % Lymphocytes % % Monocytes % % Eosinophils % % Basophils % % Neutrophils # (1.3-7.7) k/uL Lymphocytes # (1.0-4.8) k/uL Monocytes # (0-1.0) k/uL Eosinophils # (0-0.7) k/uL Basophils # (0-0.2) k/uL Hypochromasia Anisocytosis PT (9.0-12.0) sec INR (<1.2) APTT (22.0-30.0) sec Sodium (137-145) mmol/L Potassium (3.5-5.1) mmol/L Chloride (98-107) mmol/L Carbon Dioxide (22-30) mmol/L Anion Gap mmol/L BUN (9-20) mg/dL Creatinine (0.66-1.25) mg/dL Est GFR (CKD-EPI)AfAm (>60 ml/min/1.73 sqM) Est GFR (CKD-EPI)NonAf (>60 ml/min/1.73 sqM) Glucose (74-99) mg/dL Plasma Lactic Acid Teo 0.9 (0.7-2.0) mmol/L Calcium (8.4-10.2) mg/dL Total Bilirubin (0.2-1.3) mg/dL AST (17-59) U/L ALT (4-49) U/L Alkaline Phosphatase (38-126) U/L Total Protein (6.3-8.2) g/dL Albumin (3.5-5.0) g/dL Urine Color Yellow Urine Appearance Clear (Clear) Urine pH 5.5 (5.0-8.0) Ur Specific [place] 1.014 (1.001-1.035) Urine Protein 1+ H (Negative) Urine Glucose (UA) Negative (Negative) Urine Ketones Negative (Negative) Urine Blood Large H (Negative) Urine Nitrite Negative (Negative) Urine Bilirubin Negative (Negative) Urine Urobilinogen <2.0 (<2.0) mg/dL Ur Leukocyte Esterase Small H (Negative) Urine RBC >182 H (0-5) /hpf Urine WBC 6 H (0-5) /hpf Urine Bacteria Occasional H (None) /hpf Urine Mucus Rare H (None) /hpf Disposition Clinical Impression: At risk for readmission to hospital, Osteomyelitis, Urinary tract infection Disposition: ADMITTED IP TO THIS HOSP Condition: Stable Is patient prescribed a controlled substance at d/c from ED?: No Referrals: Rk Keene III, MD [Primary Care Provider] - 1-2 days
[2019-11-23] MEDS ORDERED: cefTRIAXone IN SWFI 1,000 MG/10 ML SYRINGE IVP STA (07:45)
[2019-11-23] MEDS ORDERED: polyethylene glycoL 3350 17 GM POWD.PACK PO PRN (08:11)
[2019-11-23] MEDS ORDERED: IPRATROPIUM-ALBUTEROL 3 ML NEB INHALATION PRN (08:11)
[2019-11-23] MEDS ORDERED: NITROGLYCERIN SL TABS 0.4 MG TAB SUBLINGUAL PRN (08:11)
[2019-11-23] MEDS ORDERED: CEFEPIME 2 GM VIAL IVPB SCH (08:15)
[2019-11-23] MEDS: TAMSULOSIN 0.4 MG CAP.ER.24H PO SCH ×2 (08:41→20:26)
[2019-11-23] MEDS: POTASSIUM CHLORIDE ER 20 MEQ TAB.ER PO SCH ×2 (08:41→20:28)
[2019-11-23] MEDS: oxyCODONE-APAP 7.5-325MG 1 EACH TAB PO PRN ×2 (08:41→20:27)
[2019-11-23] MEDS: ASPIRIN 81 MG PO SCH (08:41)
[2019-11-23] MEDS: APIXABAN 5 MG TAB PO SCH ×2 (08:42→20:27)
[2019-11-23] MEDS ORDERED: CEFEPIME 2 GM in SODIUM CHLORIDE 0.9% 100 ML IVPB SCH (09:00)
[2019-11-23] MEDS: PRAMIPEXOLE 1 MG TAB PO SCH (10:10)
[2019-11-23] MEDS: LIDOCAINE 5% PATCH TOPICAL SCH (10:10)
[2019-11-23 11:13] LABS: Glucose,Whole Blood 95 mg/dL (75-99)
[2019-11-23] MEDS: ACETAMINOPHEN TAB 325 MG TAB PO PRN (12:50)
[2019-11-23] MEDS ORDERED: HYDROmorphone 1 MG/ML 1 ML SYRINGE IVP STA (12:58)
[2019-11-23] MEDS: GABAPENTIN 100 MG CAP PO SCH ×2 (13:09→20:26)
[2019-11-23] MEDS: IPRATROPIUM-ALBUTEROL 3 ML NEB INHALATION SCH ×2 (15:25→20:03)
[2019-11-23] MEDS ORDERED: MEROPENEM 1 GM in SODIUM CHLORIDE 0.9% 100 ML IVPB ONE (16:15)
[2019-11-23 17:23] LABS: Glucose,Whole Blood 110 mg/dL (75-99)
[2019-11-23] MEDS ORDERED: ACETAMINOPHEN IV (For NPO) 1,000 MG in EMPTY BAG 1 BAG IVPB STA (17:52)
[2019-11-23] MEDS: ATORVASTATIN 80 MG TAB PO SCH (20:27)
[2019-11-23] MEDS: QUEtiapine 25 MG TAB PO SCH (20:27)
[2019-11-23] MEDS: PANTOPRAZOLE 40 MG TABLET PO SCH (20:27)
[2019-11-23] MEDS: METOPROLOL TARTRATE 25 MG TAB PO SCH (20:27)
[2019-11-23] MEDS ORDERED: LORazepam 2 MG/ML INJ IV PRN ×2 (21:00)
[2019-11-23 22:08] LABS: Glucose,Whole Blood 119 mg/dL (75-99)
[2019-11-24] MEDS: MEROPENEM 1 GM in SODIUM CHLORIDE 0.9% 100 ML IVPB SCH ×3 (00:17→16:40)
--- NOTE | 2019-11-24 00:19 | P.HPIM ---
History of Present Illness H&P Date: 11/23/19 Chief Complaint: Dislodged PICC line Patient is a 69-year-old male with a known history of chronic neck pain, coronary artery disease history of stent placement, chronic CHF with diastolic dysfunction, hypertension, hyperlipidemia, diabetes type 2 insulin-dependent morbid obesity and obstructive sleep apnea who was recently discharged from [facility] on 11/17/19, was admitted due to severe right-sided neck pain with extensive work-up including MRI and bone scan, CT and CT angiogram. Prior to that patient was discharged from [facility] and was treated for possible sepsis with unknown etiology. Patient was discharged on IV antibiotics and change to oral antibiotics in the form of Zyvox and due to complication of DVT in the left upper extremity. Patient is currently on Eliquis twice daily. Patient was recently discharged from the hospital on 09/22/2019 with a course of antibiotics in the form of Levaquin due to diffuse interstitial infiltrates. Patient was recently admitted to the hospital with severe right-sided neck pain and fever. Patient had extensive work-up for source of sepsis and was on multiple antibiotic course. Patient was discharged to extended care facility with antibiotics in the form of cefepime and metronidazole via PICC line. Patient had extensive work-up including MRI of the cervical spine which did not show any discitis. CT abdomen and chest did not show any clear-cut source of infection. Patient did undergo tagged WBC scan which localized to the lung and right shoulder. Right shoulder has osteoarthritis because of which there is localization of inflammatory cells and also orthopedic surgery evaluated the patient and did not believe the patient had any osteomyelitis of the joint. CT scan did not show any lobar consolidation but did mention possible atypical pneumonia and groundglass opacities. Cover test was negative. Patient had area and CARSON panels were done. ID recommends transfer to [facility] and was recommended to transfer patient to tertiary care facility but was not accepted for transfer. Patient's family does not want him to be transferred to [facility]. Patient currently [facility] to dislodged PICC line. Patient apparently pulled out his PICC line. According to ECF staff patient has been febrile and received Tylenol prior to transfer back to the hospital. Patient had recent immunological work-up showed SARATH positive and [employer] antibody positive. Current laboratory data showed WBC 10.8, hemoglobin 8.1 and platelets 467 INR 1.3 Sodium 141, potassium 4.8 and chloride 110 BUN 17 creatinine 1.09 Albumin 2.7 CRP 211 Urinalysis showed large blood and greater than 182 RBCs and 6 WBCs with 1+ prote in. Patient was febrile with T-max 102.3 Review of Systems Constitutional: Pt. does have fever and chill. . No generalized weakness or weight loss. Abdomen: Patient denied nausea vomiting and diarrhea and abdominal pain. Cardiovascular: Patient denies any chest pain or short of breath no palpitations. Respiratory: patient denied any cough is from production. No shortness of breath Neurologic: Patient denied any numbness or tingling headache. Musculoskeletal: Patient c/o neck pain, back and generalized body pain.. Skin: Negative Complete review of systems could not be obtained from the patient. Past Medical History Past Medical History: Coronary Artery Disease (CAD), Chest Pain / Angina, Heart Failure, COPD, Deep Vein Thrombosis (DVT), GERD/Reflux, Hyperlipidemia, Hypertension, Osteoarthritis (OA), Pneumonia, Prostate Disorder, Respiratory Disorder, Sleep Apnea/CPAP/BIPAP Additional Past Medical History / Comment(s): Pt recently admitted to [facility] on 11/03/19 with fever/cervical and back pain, sepsis unknown source/urinary retention with IDC. Other hx: Spouse states pt has been febrile/neck pain since August 2019 with admits to [facility] and [facility], had picc line at [facility] with DVT R arm/sepsis d/t bilateral lower leg cellulitis, venous insufficiency/lower leg edema, spondylolsis, cervical and low back pain, DDD, chronic respiratory failure, CALLI with Cpap/O2 at 4L/NC at , nonsustained vtach, TIAs, small vessel disease, IDDM type II, BPH, diverticular disease, colon polyps-benign, sinus problems, seasonal allergies History of Any Multi-Drug Resistant Organisms: None Reported Past Surgical History: Back Surgery, Heart Catheterization With Stent, Joint Replacement, Orthopedic Surgery Additional Past Surgical History / Comment(s): Bilateral knee arthroscopies, total L knee arthroplasty, R total shoulder arthroplasty, L hand injury with repair, low back surgery, PCI with 3 stents, colonoscopies/polypectomies, lumbar epidural injections, bilateral cataract removals/lens implants. Past Anesthesia/Blood Transfusion Reactions: No Reported Reaction Additional Past Anesthesia/Blood Transfusion Reaction / Comment(s): STATES "HAD A HARD TIME WITH BREATHING POST OP" Date of Last Stent Placement:: 2009 Smoking Status: Former smoker - Past Family History Father Family Medical History: CVA/TIA, Hyperlipidemia, Hypertension Mother Family Medical History: Hypertension Medications and Allergies Home Medications Medication Instructions Recorded Confirmed Type Nitroglycerin Sl Tabs [Nitrostat] 0.4 mg SUBLINGUAL Q5M PRN 03/09/14 11/23/19 History Atorvastatin [Lipitor] 80 mg PO HS 05/08/15 11/23/19 History Fluticasone/Vilanterol [Breo 1 puff INHALATION RT-DAILY@0800 03/12/18 11/23/19 History Ellipta 100-25 Mcg Inhaler] Potassium Chloride ER [K-Dur 20] 20 meq PO BID #0 03/15/18 11/23/19 Rx Ipratropium-Albuterol Nebulize 3 ml INHALATION RT-QID PRN 09/02/19 11/23/19 History [Duoneb 0.5 mg-3 mg/3 ml Soln] Metoprolol Tartrate 25 mg PO BID@08,199909/02/19 11/23/19 History Pramipexole Di-HCl [Mirapex] 1 mg PO DAILY 09/02/19 11/23/19 History Apixaban [Eliquis] 5 mg PO Q12H 11/01/19 11/23/19 History Ketoconazole [Ketoconazole 2% 1 applic TOPICAL Q72H 11/01/19 11/23/19 History Shampoo] Aspirin 81 mg PO DAILY #10 chewable 11/16/19 11/23/19 Rx Cefepime [Maxipime] 2 gm IVPB Q12H #20 bag 11/16/19 11/23/19 Rx QUEtiapine [SEROquel] 25 mg PO HS tab 11/17/19 11/23/19 Rx polyethylene glycoL 3350 [Miralax] 17 gm PO DAILY PRN #15 packet 11/17/19 11/23/19 Rx Gabapentin [Neurontin] 200 mg PO TID@0500,1300,2100 11/23/19 11/23/19 History INSULIN LISPRO (humaLOG) [humaLOG] See Protocol SQ ACHS 11/23/19 11/23/19 History Lidocaine 5% Patch [Lidoderm 5% 1 patch TRANSDERM BID@0800,199911/23/19 11/23/19 History Patch] Omeprazole 20 mg PO HS 11/23/19 11/23/19 History Tamsulosin [Flomax] 0.4 mg PO BID 11/23/19 11/23/19 History Vancomycin HCl in 5 % Dextrose 1.25 gm IV Q12H 11/23/19 11/23/19 History [Vancomycin 1 Gram/250 ml-D5w] oxyCODONE-APAP 10-325MG [Percocet 1 tab PO Q6H PRN 11/23/19 11/23/19 History 10-325 mg] Allergies Allergy/AdvReac Type Severity Reaction Status Date / Time prednisone AdvReac Extreme Verified 11/23/19 07:46 aggression with high doses Physical Exam Vitals: Vital Signs Temp Pulse Resp BP Pulse Ox 11/23/19 09:00 79 18 120/65 98 11/23/19 08:00 20 98 11/23/19 06:45 98.1 F 83 19 113/59 98 11/23/19 05:45 86 19 123/78 98 11/23/19 04:45 106 H 18 130/77 99 11/23/19 04:17 98.2 F 87 19 159/71 98 Intake and Output 11/22/19 11/23/19 11/23/19 22:59 06:59 14:59 Other: Weight 104.78 kg 104.78 kg PHYSICAL EXAMINATION: Patient is in acute distress, due to pain,awake alert and oriented.. HEENT: Normocephalic. Neck is supple. Pupils reactive. Nostrils clear. Oral cavity is moist. Ears reveal no drainage. Neck reveals no JVD, carotid bruits, or thyromegaly. CHEST EXAMINATION: Trachea is central. Symmetrical expansion. Bilateral minimal wheezing and scattered rhonchi. Lung kimball clear to auscultation and percussion. CARDIAC: Normal S1, S2 with no gallops. No murmurs ABDOMEN: Soft. Bowel sounds normal. No organomegaly. No abdominal bruits. Extremities: reveal no edema. No clubbing or cyanosis Neurologically awake, alert, oriented x2-3 with well-coordinated movements. No focal deficits noted Skin: No rash or skin lesions. Psychiatric: Coperative. couldnot be assesed completely. Musculoskeletal: No joint swelling or deformity. Normal range of motion. Results CBC & Chem 7: 11/23/19 06:10 11/23/19 06:10 Labs: Abnormal Lab Results - Last 24 Hours (Table) 11/23/19 11/23/19 11/23/19 Range/Units 06:10 06:10 06:10 WBC 10.8 H (3.8-10.6) k/uL RBC 2.77 L (4.30-5.90) m/uL Hgb 8.1 L (13.0-17.5) gm/dL Hct 25.9 L (39.0-53.0) % RDW 16.3 H (11.5-15.5) % Plt Count 467 H (150-450) k/uL PT 13.1 H (9.0-12.0) sec INR 1.3 H (<1.2) Chloride 110 H (98-107) mmol/L Total Protein 5.6 L (6.3-8.2) g/dL Albumin 2.7 L (3.5-5.0) g/dL Urine Protein (Negative) Urine Blood (Negative) Ur Leukocyte Esterase (Negative) Urine RBC (0-5) /hpf Urine WBC (0-5) /hpf Urine Bacteria (None) /hpf Urine Mucus (None) /hpf 11/23/19 Range/Units 06:11 WBC (3.8-10.6) k/uL RBC (4.30-5.90) m/uL Hgb (13.0-17.5) gm/dL Hct (39.0-53.0) % RDW (11.5-15.5) % Plt Count (150-450) k/uL PT (9.0-12.0) sec INR (<1.2) Chloride (98-107) mmol/L Total Protein (6.3-8.2) g/dL Albumin (3.5-5.0) g/dL Urine Protein 1+ H (Negative) Urine Blood Large H (Negative) Ur Leukocyte Esterase Small H (Negative) Urine RBC >182 H (0-5) /hpf Urine WBC 6 H (0-5) /hpf Urine Bacteria Occasional H (None) /hpf Urine Mucus Rare H (None) /hpf Thrombosis Risk Factor Assmnt - Choose All That Apply Any of the Below Risk Factors Present?: Yes Each Factor Represents 1 point: Abnormal pulmonary function (COPD), Medical pt on bed rest, Obesity (BMI >25) Other Risk Factors: Yes Each Risk Factor Represents 2 Points: Age 61-74 years, Patient confined to bed Each Risk Factor Represents 3 Points: History of DVT/PE Other congenital or acquired thrombophilia - If yes, enter type in comment: No Thrombosis Risk Factor Assessment Total Risk Factor Score: 10 Thrombosis Risk Factor Assessment Level: High Risk Assessment and Plan Assessment: Fever of Unknown Origin -Systemic inflammatory response syndrome or sepsis without any clear source: Etiology is not clear patient is presently on broad-spectrum antibiotics. Elevated CRP level and SARATH positive Right sided neck pain and upper arm pain likely due to advanced spondylitic changes in the lower cervical spine. Recent MRI of the cervical spine showed no evidence of discitis. Recent antibiotic course for possible sepsis at [facility] Due to taty ateral lower extremity cellulitis status post antibiotic course with PICC line complicated by DVT. Recent upper extremity DVT. Currently on Eliquis Pulmonary interstitial infiltrates unchanged from previous admission in September 2019 Coronary artery disease with history of stent placement History of back surgery Chronic bilateral lower acuity swelling due to venous insufficiency. Chronic CHF with diastolic dysfunction patient is not in heart failure exacerbation , patient is being resumed on oral Lasix. Chest x-ray did not show any decreased of pulmonary edema pleural effusion any to be reassessed for necessary of this Lasix as an outpatient Diabetes type 2 insulin-dependent Obstructive sleep apnea on CPAP at home Morbid obesity with BMI 36.0 Chronic hypoxic respiratory failure secondary to COPD History of TIAs History of nonsustained V. tach Osteoarthritis GERD Hyperlipidemia DVT prophylaxis patient is already on anticoagulation Plan: Patient is currently on gentle IV hydration and pain management. Continue with broad-spectrum antibiotics. Patient was recently treated with cefepime and metronidazole. Serological and autoimmune work-up was ordered. Follow-up blood cultures. Consult ID and rheumatology. Follow-up closely. Prognosis guarded at this time. Discussed with his at bedside in detail. Patient's family does not want him to be transferred to [facility]. Consider transferring to tertiary care facility due to fever of unknown origin. Time with Patient: Greater than 30
[2019-11-24] MEDS: IPRATROPIUM-ALBUTEROL 3 ML NEB INHALATION SCH ×5 (01:35→20:21)
[2019-11-24] MEDS: GABAPENTIN 100 MG CAP PO SCH ×3 (05:49→21:31)
[2019-11-24 07:06] LABS: Glucose,Whole Blood 125 mg/dL (75-99)
[2019-11-24] MEDS: LIDOCAINE 5% PATCH TOPICAL SCH (07:52)
[2019-11-24] MEDS: ASPIRIN 81 MG PO SCH (07:52)
[2019-11-24] MEDS: APIXABAN 5 MG TAB PO SCH ×2 (07:52→21:32)
[2019-11-24] MEDS: METOPROLOL TARTRATE 25 MG TAB PO SCH ×2 (07:52→21:32)
[2019-11-24] MEDS: ACETAMINOPHEN TAB 325 MG TAB PO PRN (07:52)
[2019-11-24] MEDS: PRAMIPEXOLE 1 MG TAB PO SCH (07:52)
[2019-11-24] MEDS: POTASSIUM CHLORIDE ER 20 MEQ TAB.ER PO SCH ×2 (07:52→21:32)
[2019-11-24] MEDS: TAMSULOSIN 0.4 MG CAP.ER.24H PO SCH ×2 (07:52→21:32)
[2019-11-24] MEDS: SYMBICORT 80-4.5 MCG INHALER INHALATION SCH ×2 (08:31→20:21)
[2019-11-24 08:54] LABS: Anisocytosis Slight; Basophils % (A) 0 %; Eosinophils # (A) 1.1 k/uL (0-0.7); Eosinophils % (A) 10 %; HCT 24.5 % (39.0-53.0); HGB 7.4 gm/dL (13.0-17.5); Hypochromasia Marked; Lymphocytes # (A) 0.7 k/uL (1.0-4.8); Lymphocytes % (A) 7 %; MCHC 30.3 g/dL (31.0-37.0); MCV 95.8 fL (80.0-100.0); Monocytes # (A) 0.5 k/uL (0-1.0); Monocytes % (A) 4 %; Neutrophils # (A) 8.4 k/uL (1.3-7.7); Neutrophils % (A) 78 %; Platelet Count 406 k/uL (150-450); RBC 2.56 m/uL (4.30-5.90); RDW 16.1 % (11.5-15.5); WBC 10.9 k/uL (3.8-10.6)
[2019-11-24 09:00] LABS: Calcium 9.1 mg/dL (8.4-10.2); Magnesium 1.4 mg/dL (1.6-2.3); Potassium 4.6 mmol/L (3.5-5.1); Uric Acid 8.7 mg/dL (3.5-8.5)
[2019-11-24] MEDS ORDERED: KETOCONAZOLE 2% SHAMPOO 1 APPLIC/ML TOPICAL SCH (09:00)
--- NOTE | 2019-11-24 10:35 | P.CONS ---
History of Present Illness - Reason for Consult Consult date: 11/23/19 Fever Requesting physician: Jen Collado - Chief Complaint Fever x 1 day - History of Present Illness Patient is a 69-year-old male who recently did have prolonged hospital stay at this facility in this patient who did have extensive work-up for fever and elevated white count including an MRI of the cervical spine as his presenting symptoms were neck and right shoulder pain MRI was negative for discitis, with persistent elevated white count the patient did have further work-up including CT of abdominal pelvis which raises the possibility of cystitis however the patient UA and culture were negative there were no evidence of any suspicious changes in his lumbar spine on those CT of abdominal pelvis patient did have a WBC scan which raises the possibility of left shoulder septic arthritis and possible pneumonia CT did not show significant consolidation sputum culture requested patient verbal report any sputum he was treated with cefepime vancomycin pharmacy to dose l and with elevated white count Eraxis was added, family wanted the patient to be transferred to [facility] we did try to transfer the patient however [facility] refused and advised 2 weeks of IV antibiotic therapy and they said they will arrange for outpatient infectious disease evaluation for this patient during that hospital stay the patient also have elevated SARATH however no radiological work-up or rheumatology consult was done, patient has not been sent back to the ER at [facility] today for evaluation of mental status changes apparently sy mptom started last night with the patient has pulled out his PICC line patient on presentation the hospital has been running a fever of 102.3 F patient was tachycardic however his white count has been 10.8 patient liver exams are normal lactic acid 0.9 urine has been positive with small leukocyte Estrace however only 6 WBC patient received a dose of Rocephin in the ER subsequently has been admitted to hospital infectious disease was consulted with concern for sepsis most information has been obtained from review the chart and talking to nursing staff at the patient himself was not provide any history, and no family member at the bedside Review of Systems Positive points mentioned in history of present illness complete review could not be obtained because of his underlying medical condition Past Medical History Past Medical History: Coronary Artery Disease (CAD), Chest Pain / Angina, Heart Failure, COPD, Deep Vein Thrombosis (DVT), GERD/Reflux, Hyperlipidemia, Hypertension, Osteoarthritis (OA), Pneumonia, Prostate Disorder, Respiratory Disorder, Sleep Apnea/CPAP/BIPAP Additional Past Medical History / Comment(s): Pt recently admitted to [facility] on 11/03/19 with fever/cervical and back pain, sepsis unknown source/urinary retention with IDC. Other hx: Spouse states pt has been febrile/neck pain since August 2019 with admits to [facility] and [facility], had picc line at [facility] with DVT R arm/sepsis d/t bilateral lower leg cellulitis, venous insufficiency/lower leg edema, spondylolsis, cervical and low back pain, DDD, chronic respiratory failure, CALLI with Cpap/O2 at 4L/NC at , nonsustained vtach, TIAs, small vessel disease, IDDM type II, BPH, diverticular disease, colon polyps-benign, sinus pro blems, seasonal allergies History of Any Multi-Drug Resistant Organisms: None Reported Past Surgical History: Back Surgery, Heart Catheterization With Stent, Joint Replacement, Orthopedic Surgery Additional Past Surgical History / Comment(s): Bilateral knee arthroscopies, total L knee arthroplasty, R total shoulder arthroplasty, L hand injury with repair, low back surgery, PCI with 3 stents, colonoscopies/polypectomies, lumbar epidural injections, bilateral cataract removals/lens implants. Past Anesthesia/Blood Transfusion Reactions: No Reported Reaction Additional Past Anesthesia/Blood Transfusion Reaction / Comm: STATES "HAD A HARD TIME WITH BREATHING POST OP" Date of Last Stent Placement:: 2009 Smoking Status: Former smoker - Past Family History Father Family Medical History: CVA/TIA, Hyperlipidemia, Hypertension Mother Family Medical History: Hypertension Medications and Allergies Home Medications Medication Instructions Recorded Confirmed Type Nitroglycerin Sl Tabs [Nitrostat] 0.4 mg SUBLINGUAL Q5M PRN 03/09/14 11/23/19 History Atorvastatin [Lipitor] 80 mg PO HS 05/08/15 11/23/19 History Fluticasone/Vilanterol [Breo 1 puff INHALATION RT-DAILY@0800 03/12/18 11/23/19 History Ellipta 100-25 Mcg Inhaler] Potassium Chloride ER [K-Dur 20] 20 meq PO BID #0 03/15/18 11/23/19 Rx Ipratropium-Albuterol Nebulize 3 ml INHALATION RT-QID PRN 09/02/19 11/23/19 Hi story [Duoneb 0.5 mg-3 mg/3 ml Soln] Metoprolol Tartrate 25 mg PO BID@0800,199909/02/19 11/23/19 History Pramipexole Di-HCl [Mirapex] 1 mg PO DAILY 09/02/19 11/23/19 History Apixaban [Eliquis] 5 mg PO Q12H 11/01/19 11/23/19 History Ketoconazole [Ketoconazole 2% 1 applic TOPICAL Q72H 11/01/19 11/23/19 History Shampoo] Aspirin 81 mg PO DAILY #10 chewable 11/16/19 11/23/19 Rx Cefepime [Maxipime] 2 gm IVPB Q12H #20 bag 11/16/19 11/23/19 Rx QUEtiapine [SEROquel] 25 mg PO HS tab 11/17/19 11/23/19 Rx polyethylene glycoL 3350 [Miralax] 17 gm PO DAILY PRN #15 packet 11/17/19 11/23/19 Rx Gabapentin [Neurontin] 200 mg PO TID@0500,1300,2100 11/23/19 11/23/19 History INSULIN LISPRO (humaLOG) [humaLOG] See Protocol SQ ACHS 11/23/19 11/23/19 History Lidocaine 5% Patch [Lidoderm 5% 1 patch TRANSDERM BID@799,199911/23/19 11/23/19 History Patch] Omeprazole 20 mg PO HS 11/23/19 11/23/19 History Tamsulosin [Flomax] 0.4 mg PO BID 11/23/19 11/23/19 History Vancomycin HCl in 5 % Dextrose 1.25 gm IV Q12H 11/23/19 11/23/19 History [Vancomycin 1 Gram/250 ml-D5w] oxyCODONE-APAP 10-325MG [Percocet 1 tab PO Q6H PRN 11/23/19 11/23/19 History 10-325 mg] Allergies Allergy/AdvReac Type Severity Reaction Status Date / Time prednisone AdvReac Extreme Verified 11/23/19 07:46 aggression with high doses Physical Exam Vitals: Vital Signs Temp Pulse Pulse Resp BP BP Pulse Ox 11/23/19 14:10 102.3 F H 119 H 20 147/67 97 11/23/19 13:28 112 H 11/23/19 13:20 108 H 11/23/19 12:27 102.3 F H 116 H 20 146/101 94 L 11/23/19 09:00 79 18 120/65 98 11/23/19 08:00 20 98 11/23/19 06:45 98.1 F 83 19 113/59 98 11/23/19 05:45 86 19 123/78 98 11/23/19 04:45 106 H 18 130/77 99 11/23/19 04:17 98.2 F 87 19 159/71 98 Intake and Output 11/22/19 11/23/19 11/23/19 22:59 06:59 14:59 Other: Voiding Method Indwelling Catheter Weight 104.78 kg 104.78 kg GENERAL DESCRIPTION: Elderly male lying in bed, no distress. No tachypnea or accessory muscle of respiration use. HEENT: Shows Pallor , no scleral icterus. Oral mucous membrane is dry. No pharyngeal erythema or thrush NECK: Trachea central, no thyromegaly. LUNGS: Unlabored breathing. Decreased breath sound at the base . No wheeze or crackle. HEART: S1, S2, regular rate and rhythm. No loud murmur ABDOMEN: Soft, no tenderness , guarding or rigidity, no organomegaly EXTREMITIES: No edema of feet. SKIN: No rash, no masses palpable. NEUROLOGICAL: The patient is lethargic orientation could not be determined Results CBC & Chem 7: 11/24/19 07:33 11/24/19 07:33 Labs: Abnormal Lab Results - Last 24 Hours (Table) 11/23/19 11/23/19 11/23/19 Range/Units 06:10 06:10 06:10 WBC 10.8 H (3.8-10.6) k/uL RBC 2.77 L (4.30-5.90) m/uL Hgb 8.1 L (13.0-17.5) gm/dL Hct 25.9 L (39.0-53.0) % RDW 16.3 H (11.5-15.5) % Plt Count 467 H (150-450) k/uL PT 13.1 H (9.0-12.0) sec INR 1.3 H (<1.2) Chloride 110 H (98-107) mmol/L Total Protein 5.6 L (6.3-8.2) g/dL Albumin 2.7 L (3.5-5.0) g/dL Urine Protein (Negative) Urine Blood (Negative) Ur Leukocyte Esterase (Negative) Urine RBC (0-5) /hpf Urine WBC (0-5) /hpf Urine Bacteria (None) /hpf Urine Mucus (None) /hpf 11/23/19 Range/Units 06:11 WBC (3.8-10.6) k/uL RBC (4.30-5.90) m/uL Hgb (13.0-17.5) gm/dL Hct (39.0-53.0) % RDW (11.5-15.5) % Plt Count (150-450) k/uL PT (9.0-12.0) sec INR (<1.2) Chloride (98-107) mmol/L Total Protein (6.3-8.2) g/dL Albumin (3.5-5.0) g/dL Urine Protein 1+ H (Negative) Urine Blood Large H (Negative) Ur Leukocyte Esterase Small H (Negative) Urine RBC >182 H (0-5) /hpf Urine WBC 6 H (0-5) /hpf Urine Bacteria Occasional H (None) /hpf Urine Mucus Rare H (None) /hpf Assessment and Plan Assessment: -patient presented hospital with mental status changes patient also have fever,, initial work-up revealed a chest x-ray negative for any acute infiltrate UA is negative as well this patient recently did have extensive work-up at this facility including MRI of the cervical spine CT of the chest abdomen pelvis and a WBC scan with no definite localizing focus of infection patient did have elevated SARATH with a question of possible rheumatological disorder. (1) Fever Current Visit: No Status: Acute Code(s): R50.9 - FEVER, UNSPECIFIED SNOMED Code(s): 464400414 Plan: 1-blood culture has been requested 2-we will empirically cover the patient with meropenem 1 g every 8 along with vancomycin pharmacy to dose, however strongly recommend the patient to be transferred to tertiary care for further work-up the patient also will benefit from rheumatological evaluation this has been discussed in detail with admitting physician. 3-I did order some baseline rheumatological blood work We will follow on clinical condition and cultures to further adjust medication if needed Thank you for this consultation will follow this patient along with you Time with Patient: Greater than 30
[2019-11-24] MEDS: SODIUM CHLORIDE 0.9% 1,000 ML IV SCH (11:12)
[2019-11-24] MEDS: MAGNESIUM SULFATE-D5W PMX 1 GM in DEXTROSE/WATER 1 100ML.BAG IVPB SCH ×2 (11:12→12:51)
[2019-11-24 11:46] LABS: Glucose,Whole Blood 104 mg/dL (75-99)
[2019-11-24 12:23] LABS: APTT 66 Sec(s) (<43); APTT 1:1 Mix 52 Sec(s) (<43); DRVVT 1:1 Mix 79 Sec(s) (<44); DRVVT Confirmation Negative (Negative); Dilute Russell Viper Venom 150 Sec(s) (<44); Hexagonal Phase Neutralization Positive (Negative)
[2019-11-24 13:02] LABS: C-ANCA <1:20 Titer (<1:20)
[2019-11-24] MEDS ORDERED: HALOPERIDOL LACTATE 5 MG/ML 1 ML VIAL IM PRN (13:28)
--- NOTE | 2019-11-24 13:37 | P.CN ---
Psychiatric Consult - . Consult date: 11/24/19 Consult:: 11/24/19 13:29 IDENTIFYING DATA: This patient is a 69-year-old male who presented with altered mental status and a history of fevers of unknown origin. HISTORY OF PRESENT ILLNESS: The patient presented to the hospital yesterday after recently being discharged on 11/17/2019 for sepsis with unknown origin likely osteomyelitis. According to ER report patient was discharged with a PICC line and antibiotics to the senior living however patient became altered and pulled out his PICC line and had a fever. Patient was readmitted for septic workup placed on broad-spectrum antibiotics and also is having an autoimmune workup. Patient's white blood cells were 10.9, ANC was 8.4 creatinine was 1.27 and CRP was elevated. Patient was seen at the bedside and appeared to be speaking to himself while watching television. Patient engaged with creative services writer briefly during conversation and when asked how he was doing he stated "not much". Patient was asked more about his hospital admission and why he believes that he is in the hospital and patient gave an unintelligible answer and demonstrated poor attention span and appeared to be sleeping at times during the interview. Patient followed very minimal commands and appeared to have poor insight and judgment. He did not describe any auditory hallucinations or visual hallucinations. He did not respond when asked about his mood or any anxiety and his sleep. At this time patient denies any suicidal or homical ideations, intent or plan. According to ER report, patient does not smoke cigarettes or use any other drugs. PAST PSYCHIATRIC HISTORY: Patient has no reported psychiatric history. Patient is however on Seroquel 25 mg daily at bedtime and pramipexole 1 mg daily. Patient denies any history of suicide attempts in the past. PAST MEDICAL HISTORY: Coronary artery disease, heart failure, COPD, hyperlipidemia, hypertension, arthritis, obstructive sleep apnea, TIAs, diabetes mellitus. ALLERGIES: as per EMR. CHEMICAL DEPENDENCY HISTORY: as per HPI. FAMILY PSYCHIATRIC/SUBSTANCE USE HISTORY: Unable to answer SOCIAL HISTORY: Unable to answer. MENTAL STATUS EXAM: General Appearance: Patient appears to be stated age is overweight, appears to be lethargic and having respiratory difficulties and sleeping at times during the interview. Patient appears to have fair hygiene and grooming wearing hospital gown with poor eye contact. Behavior: Patient is calmly lying in bed without any agitated behavior. Sleeping at times and poor attention span. Speech: Patient's speech is garbled and unintelligible. Mood/Affect: Patient reports their mood is "fine", affect is congruent Suicidality/Homicidality: Patient denies having any suicidal or homicidal ideation intent or plan. Perceptions: Patient denies any visual hallucinations and denies any auditory hallucinations Though content/process: Illogical, inappropriate and difficult to comprehend. Memory and concentration: AOX1, oriented to his name only. Poor attention span and cannot spell world backwards. Judgment and insight: poor IMPRESSIONS: Delirium, likely etiology toxic metabolic, medications and infection. PLAN: -At this time patient DOES NOT meet criteria for inpatient psychiatric admis marck. -Patient DOES NOT have decision making capacity at this time and is unable to reason through and communicate/appreciate the risks, benefits and alternatives to treatment. -Delirium precautions recommended with patient including - avoiding use of narcotics and MACHINE DESIGN CHECKER sedatives, limit anticholinergic medications when possible, frequent re-orientation, minimize use of restraints, open window shades during the day and close them at night -Would recommend the following medication changes/additions: Discontinued Ativan when necessary as this will further exacerbate patient's delirium. Haldol 3 mg every 6 hours when necessary when necessary for agitation. Can continue with Seroquel 25 mg daily at bedtime for mood stabilization/psychosis/insomnia. -Continue with treatment of patient's underlying medical issues and infection and patient should improve with regards his mental status. -Psychiatry will sign off at this point unless the primary team has further questions, please contact with any questions.
[2019-11-24] MEDS: methylPREDNISolone SOD SUCCI 40 MG/ML 1 ML VIAL IV SCH ×2 (14:16→17:31)
[2019-11-24 14:26] VITALS: BMI 36.1
[2019-11-24 16:46] LABS: Glucose,Whole Blood 116 mg/dL (75-99)
--- NOTE | 2019-11-24 16:56 | PN ---
PROGRESS NOTE DATE OF SERVICE: 11/24/2019 REASON FOR FOLLOWUP: Fever and a question of sepsis. INTERVAL HISTORY: The patient did spike another fever of 100.3 this morning; however, the patient overall fever pattern has improved. The patient remains to be lethargic and did not provide any history. No vomiting or diarrhea has been reported by nursing staff. No change in clinical condition. PHYSICAL EXAMINATION: Blood pressure 120/66, pulse of 83, temperature 98.3, he is 98% on 3 L nasal cannula. General description is an elderly male, lying in bed in no distress. RESPIRATORY SYSTEM: Unlabored breathing, decreased breath sounds at the bases. No wheeze. HEART: S1, S2. Regular rate and rhythm. ABDOMEN: Soft, no tenderness. LABS: Hemoglobin 7.4, white count 10.9, BUN of 22, creatinine is 1.27. Blood culture has been negative. DIAGNOSTIC IMPRESSION AND PLAN: Patient with fever in this patient with the hospital generalized body aches and some mental status changes. This patient did have extensive workup for infectious etiology that was negative with concern for possible neurological disorder. Rheumatology has been consulted. The patient is on empiric meropenem and vancomycin to continue while waiting for the culture to finalize. Will benefit from transfer to tertiary care as previously recommended. Continue supportive care. MMODL / IJN: [id number] /
--- NOTE | 2019-11-24 18:49 | P.CONS ---
History of Present Illness - Reason for Consult Consult date: 11/24/19 POSITIVE SARATH Past Medical History Past Medical History: Coronary Artery Disease (CAD), Chest Pain / Angina, Heart Failure, COPD, Deep Vein Thrombosis (DVT), GERD/Reflux, Hyperlipidemia, Hypertension, Osteoarthritis (OA), Pneumonia, Prostate Disorder, Respiratory Disorder, Sleep Apnea/CPAP/BIPAP Additional Past Medical History / Comment(s): Pt recently admitted to [facility] on 11/03/19 with fever/cervical and back pain, sepsis unknown source/urinary retention with IDC. Other hx: Spouse states pt has been febrile/neck pain since August 2019 with admits to [facility] and [facility], had picc line at [facility] with DVT R arm/sepsis d/t bilateral lower leg cellulitis, venous insufficiency/lower leg edema, spondylolsis, cervical and low back pain, DDD, chronic respiratory failure, CALLI with Cpap/O2 at 4L/NC at , nonsustained vtach, TIAs, small vessel disease, IDDM type II, BPH, diverticular disease, colon polyps-benign, sinus problems, seasonal allergies History of Any Multi-Drug Resistant Organisms: None Reported Past Surgical History: Back Surgery, Heart Catheterization With Stent, Joint Replacement, Orthopedic Surgery Additional Past Surgical History / Comment(s): Bilateral knee arthroscopies, total L knee arthroplasty, R total shoulder arthroplasty, L hand injury with repair, low back surgery, PCI with 3 stents, colonoscopies/polypectomies, lumbar epidural injections, bilateral cataract removals/lens implants. Past Anesthesia/Blood Transfusion Reactions: No Reported Reaction Additional Past Anesthesia/Blood Transfusion Reaction / Comm: STATES "HAD A HARD TIME WITH BREATHING POST OP" Date of Last Stent Placement:: 2009 Smoking Status: Former smoker - Past Family History Father Family Medical History: CVA/TIA, Hyperlipidemia, Hypertension Mother Family Medical History: Hypertension Medications and Allergies Home Medications Medication Instructions Recorded Confirmed Type Nitroglycerin Sl Tabs [Nitrostat] 0.4 mg SUBLINGUAL Q5M PRN 03/09/14 11/23/19 History Atorvastatin [Lipitor] 80 mg PO HS 05/08/15 11/23/19 History Fluticasone/Vilanterol [Breo 1 puff INHALATION RT-DAILY@0800 03/12/18 11/23/19 History Ellipta 100-25 Mcg Inhaler] Potassium Chloride ER [K-Dur 20] 20 meq PO BID #0 03/15/18 11/23/19 Rx Ipratropium-Albuterol Nebulize 3 ml INHALATION RT-QID PRN 09/02/19 11/23/19 History [Duoneb 0.5 mg-3 mg/3 ml Soln] Metoprolol Tartrate 25 mg PO BID@0800,199909/02/19 11/23/19 History Pramipexole Di-HCl [Mirapex] 1 mg PO DAILY 09/02/19 11/23/19 History Apixaban [Eliquis] 5 mg PO Q12H 11/01/19 11/23/19 History Ketoconazole [Ketoconazole 2% 1 applic TOPICAL Q72H 11/01/19 11/23/19 History Shampoo] Aspirin 81 mg PO DAILY #10 chewable 11/16/19 11/23/19 Rx Cefepime [Maxipime] 2 gm IVPB Q12H #20 bag 11/16/19 11/23/19 Rx QUEtiapine [SEROquel] 25 mg PO HS tab 11/17/19 11/23/19 Rx polyethylene glycoL 3350 [Miralax] 17 gm PO DAILY PRN #15 packet 11/17/19 11/23/19 Rx Gabapentin [Neurontin] 200 mg PO TID@0500,1300,2100 11/23/19 11/23/19 History INSULIN LISPRO (humaLOG) [humaLOG] See Protocol SQ ACHS 11/23/19 11/23/19 History Lidocaine 5% Patch [Lidoderm 5% 1 patch TRANSDERM BID@0800,199911/23/19 11/23/19 History Patch] Omeprazole 20 mg PO HS 11/23/19 11/23/19 History Tamsulosin [Flomax] 0.4 mg PO BID 11/23/19 11/23/19 History Vancomycin HCl in 5 % Dextrose 1.25 gm IV Q12H 11/23/19 11/23/19 History [Vancomycin 1 Gram/250 ml-D5w] oxyCODONE-APAP 10-325MG [Percocet 1 tab PO Q6H PRN 11/23/19 11/23/19 History 10-325 mg] Allergies Allergy/AdvReac Type Severity Reaction Status Date / Time prednisone AdvReac Extreme Verified 11/23/19 07:46 aggression with high doses Physical Exam Vitals: Vital Signs Temp Pulse Pulse Resp BP Pulse Ox 11/24/19 14:50 98.3 F 83 18 128/66 98 11/24/19 14:19 99.8 F H 11/24/19 11:40 81 11/24/19 11:28 76 11/24/19 11:15 100.2 F H 11/24/19 10:30 99.9 F H 11/24/19 09:44 100.3 F H 11/24/19 09:39 100.3 F H 11/24/19 07:16 100.2 F H 100 18 113/64 100 11/24/19 04:00 20 11/24/19 02:35 98.3 F 86 104/65 98 11/24/19 00:17 20 11/23/19 19:30 99.8 F H 11/23/19 19:00 20 11/23/19 18:50 100.8 F H 114 H 132/56 97 Intake and Output 11/24/19 11/24/19 11/24/19 06:59 14:59 22:59 Output Total 400 400 Balance -400 -400 Output: Urine 400 400 Other: Voiding Method Indwelling Catheter Indwelling Catheter Indwelling Catheter Weight 104.78 kg Results CBC & Chem 7: 11/24/19 07:33 11/24/19 07:33 Labs: Abnormal Lab Results - Last 24 Hours (Table) 11/23/19 11/23/19 11/23/19 Range/Units 16:39 16:39 22:07 WBC (3.8-10.6) k/uL RBC (4.30-5.90) m/uL Hgb (13.0-17.5) gm/dL Hct (39.0-53.0) % MCHC (31.0-37.0) g/dL RDW (11.5-15.5) % Neutrophils # (1.3-7.7) k/uL Lymphocytes # (1.0-4.8) k/uL Eosinophils # (0-0.7) k/uL Lupus Anticoag aPTT 66 H (<43) Sec(s) Lupus Anticoag PTT Mix 52 H (<43) Sec(s) Dil Aba Viper Venom 150 H (<44) Sec(s) dRVVT 50:50 79 H (<44) Sec(s) Lupus Hexagonal Phase Positive H (Negative) Chloride (98-107) mmol/L BUN (9-20) mg/dL Creatinine (0.66-1.25) mg/dL Glucose (74-99) mg/dL POC Glucose (mg/dL) 119 H (75-99) mg/dL Uric Acid (3.5-8.5) mg/dL Magnesium (1.6-2.3) mg/dL Procalcitonin 1.24 H (0.02-0.09) ng/mL 11/24/19 11/24/19 11/24/19 Range/Units 07:02 07:33 07:33 WBC 10.9 H (3.8-10.6) k/uL RBC 2.56 L (4.30-5.90) m/uL Hgb 7.4 L (13.0-17.5) gm/dL Hct 24.5 L (39.0-53.0) % MCHC 30.3 L (31.0-37.0) g/dL RDW 16.1 H (11.5-15.5) % Neutrophils # 8.4 H (1.3-7.7) k/uL Lymphocytes # 0.7 L (1.0-4.8) k/uL Eosinophils # 1.1 H (0-0.7) k/uL Lupus Anticoag aPTT (<43) Sec(s) Lupus Anticoag PTT Mix (<43) Sec(s) Dil Aba Viper Venom (<44) Sec(s) dRVVT 50:50 (<44) Sec(s) Lupus Hexagonal Phase (Negative) Chloride 112 H (98-107) mmol/L BUN 22 H (9-20) mg/dL Creatinine 1.27 H (0.66-1.25) mg/dL Glucose 119 H (74-99) mg/dL POC Glucose (mg/dL) 125 H (75-99) mg/dL Uric Acid 8.7 H (3.5-8.5) mg/dL Magnesium 1.4 L (1.6-2.3) mg/dL Procalcitonin (0.02-0.09) ng/mL 09/02/20 09/02/20 Range/Units 11:45 16:44 WBC (3.8-10.6) k/uL RBC (4.30-5.90) m/uL Hgb (13.0-17.5) gm/dL Hct (39.0-53.0) % MCHC (31.0-37.0) g/dL RDW (11.5-15.5) % Neutrophils # (1.3-7.7) k/uL Lymphocytes # (1.0-4.8) k/uL Eosinophils # (0-0.7) k/uL Lupus Anticoag aPTT (<43) Sec(s) Lupus Anticoag PTT Mix (<43) Sec(s) Dil Aba Viper Venom (<44) Sec(s) dRVVT 50:50 (<44) Sec(s) Lupus Hexagonal Phase (Negative) Chloride (98-107) mmol/L BUN (9-20) mg/dL Creatinine (0.66-1.25) mg/dL Glucose (74-99) mg/dL POC Glucose (mg/dL) 104 H 116 H (75-99) mg/dL Uric Acid (3.5-8.5) mg/dL Magnesium (1.6-2.3) mg/dL Procalcitonin (0.02-0.09) ng/mL Microbiology - Last 24 Hours (Table) 11/23/19 06:11 Blood Culture - Preliminary Blood No Growth after 24 hours Assessment and Plan Assessment: The patient is a 69-year-old male in as an inpatient in [facility]. The patient is sedated and nonverbal and has a sitter next to him and has been there since early this morning because the patient was trying to pull out his oxygen nasal cannula. I did speak to regarding this patient and reviewed the chart. Rheumatology was consulted because he was found to have a positive SARATH and the patient has had intermittent fevers and no obvious infection has been found. The patient had a recent prolonged hospital stay for workup of fever and elevated white cell count. His initial symptoms apparently were severe right- sided neck and shoulder pain and he did see orthopedic as well and they did not feel that it had anything to do with his fever. He basically is had negative cultures and negative urine analysis and a white cell scan showed increased uptake in the LEFT shoulder and right lung with the patient did not seem to have any pneumonic symptoms at the time. He was discharged on 11/17/19 and was sent to a longterm so that he could get a second opinion at [facility] as an outpatient but sounds like he was unable to stay in the longterm and was found to have another spike in temperature and was sent back to the hospital yesterday. His temperature was 102.3 and he had some mental status changes and was pulling out his PICC line in the longterm. His past medical, surgical, family and social history and medications were reviewed. Past medical history includes coronary artery disease with history of stent placement and chronic CHF with diastolic dysfunction, hypertension, hyperlipidemia, type 2 diabetes, morbid obesity and obstructive sleep apnea. Review orthopedic consult note from 11/12/19 shows that he is known to have significant lesion disease of the cervical spine and has chronic low back pain and has seen Dr. Browne for pain management . He was also seen in [facility] in September and was found to have sepsis and was placed and a PICC line. TheY ordered MRI of the left shoulder to look for septic arthritis Review of system unable to complete as the patient is nonverbal and sedated. On exam the patient is laying in bed with an oxygen nasal cannula, sedated. His hands do seem swollen and the patient did try to pull away his hand probably from pain when I was examining them. No evidence of deformities. Cardiovascular regular rate and rhythm no murmurs and no rubs. I could not examine his lung sounds. I could not complete a musculoskeletal exam. Labs reviewed from august to 11/24/19 shows white cell count of 9, HEMOGLOBIN 7.4, platelets 406, with elevated neutrophils, ESR GREATER THAN 140, INR 1.3, LUPUS ANTICOAGULANT POSITIVE, CMP is normal except for CREATININE OF 1.2, URIC ACID 8.7, magnesium low at 1.4, phosphorus normal, ferritin normal, CPK low, LDH HIGH AT 694, CRP HIGH AT 211, TSH HIGH AT 5.1 with a normal free T4, PRO-CALCITONIN IS HIGH AT 1.24, urinalysis 1+ protein, SARATH +1:160 SPECKLED AND NUCLEOLAR PATTERN, De La Torre negative, MAINTENANCE OPERATOR POSITIVE AT 6.7, COMPLEMENTS NORMAL Infectious disease testing showed negative, coronavirus PCR, urine Legionella antigen negative, influenza A and B negative. Chest x-ray from yesterday was negative Assessment and plan: 1) fever of unknown origin with significantly elevated sedimentation rate and CRP and joint pain and a positive SARATH: His labs showed no evidence of SLE but he does have a positive MAINTENANCE OPERATOR which generally indicates a mixed connective tissue disease and I'm not certain that he has all the features as I was unable to take history to find out if he has Raynauds but generally patients with MCTD did not present with significant systemic symptoms so it is unlikely to cause of the patient's fever and increased inflammatory markers. Rheumatoid arthritis though could present this way and the patient does seem to have some swelling in his hands though it did not seem like synovitis specifically but I would do a rheumatoid factor and CCP to look for RA. Since the patient has been found to have no obvious focus of infection I will give him a trial of soluMedrol. I initially started to write 60 mg IV every 6 but I see in the chart that this an allergy to prednisone and apparently the patient gets aggressive with prednisone, I went ahead and prescribed soluMedrol 40 mg IV every 6 hrs which is lower than what I would've generally prescribed for a patient with active systemic inflammation. I will reevaluate the patient once his labs are back and to see how his done with IV steroids. Dr Yap has ordered ANCA. Please do not hesitate to call me for any further questions at [phone] (1) Positive SARATH (antinuclear antibody) Current Visit: Yes Status: Chronic Priority: Medium Code(s): R76.8 - OTHER SPECIFIED ABNORMAL IMMUNOLOGICAL FINDINGS IN SERUM SNOMED Code(s): 054464786 (2) Fever Current Visit: No Status: Acute Code(s): R50.9 - FEVER, UNSPECIFIED SNOMED Code(s): 078467318 (3) Generalized pain Current Visit: No Status: Acute Code(s): R52 - PAIN, UNSPECIFIED SNOMED Code(s): 71930993
[2019-11-24 19:30] LABS: Cyclic Citrull Pep IgG Unit 0.7 U/mL; Cyclic Citrullinated Pep IgG NEGATIVE (NEGATIVE)
[2019-11-24 20:37] LABS: Glucose,Whole Blood 223 mg/dL (75-99)
[2019-11-24 21:21] LABS: Glucose,Whole Blood 276 mg/dL (75-99)
[2019-11-24] MEDS: QUEtiapine 25 MG TAB PO SCH (21:32)
[2019-11-24] MEDS: PANTOPRAZOLE 40 MG TABLET PO SCH (21:32)
[2019-11-24] MEDS: oxyCODONE-APAP 7.5-325MG 1 EACH TAB PO PRN (21:32)
[2019-11-24] MEDS: ATORVASTATIN 80 MG TAB PO SCH (21:32)
[2019-11-24] MEDS: INSULIN ASPART (NovoLOG) 100 UNIT/ML VIAL SQ SCH (21:33)
[2019-11-25] MEDS: methylPREDNISolone SOD SUCCI 40 MG/ML 1 ML VIAL IV SCH ×5 (00:45→23:50)
[2019-11-25] MEDS: MEROPENEM 1 GM in SODIUM CHLORIDE 0.9% 100 ML IVPB SCH ×4 (00:45→23:50)
[2019-11-25] MEDS: SODIUM CHLORIDE 0.9% 1,000 ML IV SCH ×2 (00:52→12:55)
[2019-11-25] MEDS: GABAPENTIN 100 MG CAP PO SCH ×3 (05:30→20:34)
[2019-11-25 06:52] LABS: Glucose,Whole Blood 197 mg/dL (75-99)
[2019-11-25 07:23] LABS: Anisocytosis Slight; Basophils % (A) 0 %; Eosinophils % (A) 0 %; HCT 24.3 % (39.0-53.0); HGB 7.4 gm/dL (13.0-17.5); Hypochromasia Marked; Lymphocytes # (A) 0.6 k/uL (1.0-4.8); Lymphocytes % (A) 12 %; MCH 28.8 pg (25.0-35.0); MCHC 30.6 g/dL (31.0-37.0); MCV 94.4 fL (80.0-100.0); Mean Platelet Volume 8.2; Monocytes # (A) 0.1 k/uL (0-1.0); Monocytes % (A) 2 %; Neutrophils # (A) 4.6 k/uL (1.3-7.7); Neutrophils % (A) 85 %; Platelet Count 378 k/uL (150-450); RBC 2.58 m/uL (4.30-5.90); WBC 5.4 k/uL (3.8-10.6)
[2019-11-25] MEDS: ASPIRIN 81 MG PO SCH (07:25)
[2019-11-25] MEDS: POTASSIUM CHLORIDE ER 20 MEQ TAB.ER PO SCH ×2 (07:26→20:34)
[2019-11-25] MEDS: INSULIN ASPART (NovoLOG) 100 UNIT/ML VIAL SQ SCH ×4 (07:26→20:35)
[2019-11-25] MEDS: LIDOCAINE 5% PATCH TOPICAL SCH (07:26)
[2019-11-25] MEDS: APIXABAN 5 MG TAB PO SCH ×2 (07:26→20:35)
[2019-11-25] MEDS: METOPROLOL TARTRATE 25 MG TAB PO SCH ×2 (07:26→20:35)
[2019-11-25] MEDS: TAMSULOSIN 0.4 MG CAP.ER.24H PO SCH ×2 (07:26→20:35)
[2019-11-25 07:47] LABS: Calcium 9.5 mg/dL (8.4-10.2)
[2019-11-25] MEDS: SYMBICORT 80-4.5 MCG INHALER INHALATION SCH ×2 (08:51→20:19)
[2019-11-25] MEDS: IPRATROPIUM-ALBUTEROL 3 ML NEB INHALATION SCH ×4 (08:51→20:19)
[2019-11-25] MEDS: PRAMIPEXOLE 1 MG TAB PO SCH (11:11)
[2019-11-25] MEDS: oxyCODONE-APAP 7.5-325MG 1 EACH TAB PO PRN (11:15)
[2019-11-25 11:38] LABS: Glucose,Whole Blood 290 mg/dL (75-99)
[2019-11-25 16:57] LABS: Glucose,Whole Blood 423 mg/dL (75-99)
--- NOTE | 2019-11-25 19:40 | PN ---
PROGRESS NOTE DATE OF SERVICE: 11/25/2019 REASON FOR FOLLOWUP: Fever. INTERVAL HISTORY: The patient is currently afebrile. The patient is more awake and alert and overall was feeling better. The patient denies having headache. No chest pain. No cough. No abdominal pain or diarrhea. PHYSICAL EXAMINATION: Blood pressure 147/77, pulse of 77, temperature 98.3. He is 98% on 3 L nasal cannula. General description is an elderly male up in the chair in no distress. RESPIRATORY SYSTEM: Unlabored breathing. Clear to auscultation anteriorly. HEART: S1, S2. Regular rate and rhythm. ABDOMEN: Soft. No tenderness. LABS: Hemoglobin 7.4, white count 5.4, BUN of 27, creatinine 1.16. Blood culture remains negative. DIAGNOSTIC IMPRESSION AND PLAN: Patient with a fever with concern for possible rheumatological disorder. He has been seen by Rheumatology. Steroid has been added. The patient did have overall resolution of his fever. Culture has been negative and he is feeling better. Will keep the patient on empiric meropenem and vancomycin while waiting for the culture to finalize and monitor his clinical course closely. MMODL / IJN: [id number] /
[2019-11-25 20:16] LABS: Glucose,Whole Blood 395 mg/dL (75-99)
[2019-11-25] MEDS: ATORVASTATIN 80 MG TAB PO SCH (20:35)
[2019-11-25] MEDS: PANTOPRAZOLE 40 MG TABLET PO SCH (20:35)
[2019-11-25] MEDS: QUEtiapine 25 MG TAB PO SCH (20:35)
[2019-11-26 00:08] VITALS: BP 157/73; PULSE 89; RESP 15; TEMP 97.9
[2019-11-26] MEDS: oxyCODONE-APAP 7.5-325MG 1 EACH TAB PO PRN (00:19)
== END 2019-11-26 05:07 | disposition short-term general hospital (02) ==
LOC: EC 04:14 → 4SSUR 06:48 → OBSVTOIN 11-25 10:32 → INTOOBSV 11-25 10:32
PROVIDERS: ADMIT Hospitalist; ATTEND Hospitalist
DX: R50.9 Fever, unspecified (principal); R41.82 Altered mental status, unspecified; E11.69 Type 2 diabetes mellitus with other specified complication; I25.10 Atherosclerotic heart disease of native coronary artery without angina pectoris; I50.32 Chronic diastolic (congestive) heart failure; K21.9 Gastro-esophageal reflux disease without esophagitis; J44.9 Chronic obstructive pulmonary disease, unspecified; E78.5 Hyperlipidemia, unspecified; E66.01 Morbid (severe) obesity due to excess calories; G47.33 Obstructive sleep apnea (adult) (pediatric); Z79.01 Long term (current) use of anticoagulants; Z68.36 Body mass index [BMI] 36.0-36.9, adult; Z79.4 Long term (current) use of insulin; Z79.82 Long term (current) use of aspirin; Z79.899 Other long term (current) drug therapy; Z86.73 Personal history of transient ischemic attack (TIA), and cerebral infarction without residual deficits; Z87.891 Personal history of nicotine dependence; Z88.8 Allergy status to other drugs, medicaments and biological substances; Z95.5 Presence of coronary angioplasty implant and graft; Z96.1 Presence of intraocular lens; Z96.611 Presence of right artificial shoulder joint; Z96.652 Presence of left artificial knee joint; Y71.2 Prosthetic and other implants, materials and accessory cardiovascular devices associated with adverse incidents; E11.51 Type 2 diabetes mellitus with diabetic peripheral angiopathy without gangrene; D68.62 Lupus anticoagulant syndrome; J96.11 Chronic respiratory failure with hypoxia; T82.524A Displacement of infusion catheter, initial encounter
CPT/HCPCS: 96376 ×2; 96366 ×2; 96367 ×2; 96372; 96375 ×2; 96365; 99285; 36415; 94640 ×5; 93005; 97162; 97166; 86255; 86160 ×2; 86162; 80053; 80048 ×2; 83605; 83735; 84550; 85025 ×3; 85610; 85730; 86140; 86431; 85613 ×2; 81001; 87040; 85732; 85598; 86200; 84145; 71045; G0378 ×4; U0003; J2060; J1630; J2920 ×2; J0696; J0692; J2185 ×3; J1170; J3475; J0131

== ENCOUNTER 2019-12-09 16:07 | Inpatient (IN) | payer MEDICARE ==
[2019-12-09] MEDS ORDERED: SODIUM CHLORIDE 0.9% 500 ML 500 ML IV ONE (16:12)
[2019-12-09] MEDS ORDERED: LORazepam 2 MG/ML INJ IV STA ×2 (16:12→18:09)
--- NOTE | 2019-12-09 16:22 | ED ---
General Adult HPI - General Stated complaint: Altered mental status Time Seen by Provider: 12/09/19 16:11 Source: patient, RN notes reviewed, old records reviewed Mode of arrival: ambulatory Limitations: altered mental status - History of Present Illness Initial comments: 69-year-old male who had become acutely agitated just prior to EMS call. He was follow with family. He was not alert, not in his right mind. Patient was given 400 mg of intramuscular ketamine 4 agitated delirium and was transported to the emergency department. There is very little history on this patient available. Apparently there have been a medication change today uncertain what this medication was. Uncertain of the past medical history. - Related Data Home Medications Medication Instructions Recorded Confirmed Nitroglycerin Sl Tabs [Nitrostat] 0.4 mg SUBLINGUAL Q5M PRN 03/09/14 11/23/19 Atorvastatin [Lipitor] 80 mg PO HS 05/08/15 11/23/19 Fluticasone/Vilanterol [Breo 1 puff INHALATION RT-DAILY@0800 03/12/18 11/23/19 Ellipta 100-25 Mcg Inhaler] Ipratropium-Albuterol Nebulize 3 ml INHALATION RT-QID PRN 09/02/19 11/23/19 [Duoneb 0.5 mg-3 mg/3 ml Soln] Metoprolol Tartrate 25 mg PO BID@0800,199909/02/19 11/23/19 Pramipexole Di-HCl [Mirapex] 1 mg PO DAILY 09/02/19 11/23/19 Apixaban [Eliquis] 5 mg PO Q12H 11/01/19 11/23/19 Ketoconazole [Ketoconazole 2% 1 applic TOPICAL Q72H 11/01/19 11/23/19 Shampoo] Gabapentin [Neurontin] 200 mg PO TID@0500,1300,2100 11/23/19 11/23/19 INSULIN LISPRO (humaLOG) [humaLOG] See Protocol SQ ACHS 11/23/19 11/23/19 Lidocaine 5% Patch [Lidoderm 5% 1 patch TRANSDERM BID@0800,199911/23/19 11/23/19 Patch] Omeprazole 20 mg PO HS 11/23/19 11/23/19 Tamsulosin [Flomax] 0.4 mg PO BID 11/23/19 11/23/19 Vancomycin HCl in 5 % Dextrose 1.25 gm IV Q12H 11/23/19 11/23/19 [Vancomycin 1 Gram/250 ml-D5w] oxyCODONE-APAP 10-325MG [Percocet 1 tab PO Q6H PRN 11/23/19 11/23/19 10-325 mg] Previous Rx's Medication Instructions Recorded Potassium Chloride ER [K-Dur 20] 20 meq PO BID #0 03/15/18 Aspirin 81 mg PO DAILY #10 chewable 11/16/19 Cefepime [Maxipime] 2 gm IVPB Q12H #20 bag 11/16/19 QUEtiapine [SEROquel] 25 mg PO HS tab 11/17/19 polyethylene glycoL 3350 [Miralax] 17 gm PO DAILY PRN #15 packet 11/17/19 Allergies Allergy/AdvReac Type Severity Reaction Status Date / Time prednisone AdvReac Extreme Verified 12/09/19 16:30 aggression with high doses Review of Systems ROS Statement: Those systems with pertinent positive or pertinent negative responses have been documented in the HPI. ROS Other: All systems not noted in ROS Statement are negative. Past Medical History Past Medical History: Coronary Artery Disease (CAD), Chest Pain / Angina, Heart Failure, COPD, Deep Vein Thrombosis (DVT), GERD/Reflux, Hyperlipidemia, Hypertension, Osteoarthritis (OA), Pneumonia, Prostate Disorder, Respiratory Disorder, Sleep Apnea/CPAP/BIPAP Additional Past Medical History / Comment(s): Pt recently admitted to [facility] on 11/03/19 with fever/cervical and back pain, sepsis unknown source/urinary retention with IDC. Other hx: Spouse states pt has been febrile/neck pain since August 2019 with admits to [facility] and [facility], had picc line at [facility] with DVT R ar m/sepsis d/t bilateral lower leg cellulitis, venous insufficiency/lower leg edema, spondylolsis, cervical and low back pain, DDD, chronic respiratory failure, CALLI with Cpap/O2 at 4L/NC at , nonsustained vtach, TIAs, small vessel disease, IDDM type II, BPH, diverticular disease, colon polyps-benign, sinus problems, seasonal allergies History of Any Multi-Drug Resistant Organisms: None Reported Past Surgical History: Back Surgery, Heart Catheterization With Stent, Joint Replacement, Orthopedic Surgery Additional Past Surgical History / Comment(s): Bilateral knee arthroscopies, total L knee arthroplasty, R total shoulder arthroplasty, L hand injury with repair, low back surgery, PCI with 3 stents, colonoscopies/polypectomies, lumbar epidural injections, bilateral cataract removals/lens implants. Past Anesthesia/Blood Transfusion Reactions: No Reported Reaction Additional Past Anesthesia/Blood Transfusion Reaction / Comment(s): STATES "HAD A HARD TIME WITH BREATHING POST OP" Date of Last Stent Placement:: 2009 Past Psychological History: No Psychological Hx Reported Smoking Status: Former smoker - Past Family History Father Family Medical History: CVA/TIA, Hyperlipidemia, Hypertension Mother Family Medical History: Hypertension General Exam Limitations: altered mental status General appearance: anxious, in distress Head exam: Present: atraumatic Eye exam: Present: normal appearance, PERRL Neck exam: Present: normal inspection. Absent: tenderness, meningismus Respiratory exam: Present: normal lung sounds bilaterally. Absent: respiratory distress, wheezes Cardiovascular Exam: Present: normal rhythm, tachycardia GI/Abdominal exam: Present: soft. Absent: distended, tenderness, guarding Extremities exam: Present: normal inspection, normal capillary refill Neurological exam: Present: alert, other (Patient moving all extremities symmetrically, he is very rigid with clonus). Absent: oriented X3 (Oriented to name) Psychiatric exam: Present: agitated, anxious Skin exam: Present: warm, dry Course Vital Signs 12/09/19 12/09/19 16:08 16:35 Temperature 99.5 F 98 F Pulse Rate 127 H 123 H Respiratory 20 18 Rate Blood Pressure 145/83 127/69 O2 Sat by Pulse 96 93 L Oximetry EKG Findings - EKG Comments: EKG Findings:: EKG: Sinus tachycardia with PAC, very poor quality EKG, rate of 1:30, MN interval 126, QRS duration 82, QTC [address] segment elevation Medical Decision Making - Medical Decision Making 69-year-old male with worsening agitation and delirium. Patient is unable to contribute to the history, upon arrival to the emergency department the patient's is able to add significantly to history, stating he's been worsening over the past weeks to months. He had a recent admission at [facility] and was diagnosed with mixed connective tissue disease. She states that he was started on steroids, 20 mg of prednisone. He is also having pain throughout his entire body and is on narcotic pain medication. She states that he's had a steady decline over the past several months. CT performed, negative for intracranial hemorrhage or mass effect, chest x-ray negative for focal pneumonia. Patient has a elevated white blood cell count, may be related to steroids. Patient's is adamant that they were told at [facility] he does not have an infection even though there had been suspected infection previously. She states this was completely ruled out at [facility]. Hemoglobin is 9.6 which is improved. - Lab Data Result diagrams: 12/09/19 16:24 12/09/19 16:24 Lab Results 12/09/19 12/09/19 12/09/19 Range/Units 16:24 16:24 16:24 WBC 19.2 H (3.8-10.6) k/uL RBC 3.29 L (4.30-5.90) m/uL Hgb 9.6 L D (13.0-17.5) gm/dL Hct 31.1 L (39.0-53.0) % MCV 94.4 (80.0-100.0) fL MCH 29.1 (25.0-35.0) pg MCHC 30.9 L (31.0-37.0) g/dL RDW 18.0 H (11.5-15.5) % Plt Count 253 (150-450) k/uL Neutrophils % 88 % Lymphocytes % 7 % Monocytes % 4 % Eosinophils % 0 % Basophils % 0 % Neutrophils # 16.9 H (1.3-7.7) k/uL Lymphocytes # 1.2 (1.0-4.8) k/uL Monocytes # 0.8 (0-1.0) k/uL Eosinophils # 0.1 (0-0.7) k/uL Basophils # 0.0 (0-0.2) k/uL Hypochromasia Moderate Anisocytosis Slight PT 10.8 (9.0-12.0) sec INR 1.1 (<1.2) APTT 21.0 L (22.0-30.0) sec Sodium (137-145) mmol/L Potassium (3.5-5.1) mmol/L Chloride (98-107) mmol/L Carbon Dioxide (22-30) mmol/L Anion Gap mmol/L BUN (9-20) mg/dL Creatinine (0.66-1.25) mg/dL Est GFR (CKD-EPI)AfAm (>60 ml/min/1.73 sqM) Est GFR (CKD-EPI)NonAf (>60 ml/min/1.73 sqM) Glucose (74-99) mg/dL Calcium (8.4-10.2) mg/dL Total Bilirubin (0.2-1.3) mg/dL AST (17-59) U/L ALT (4-49) U/L Alkaline Phosphatase (38-126) U/L Creatine Kinase (55-170) U/L Total Protein (6.3-8.2) g/dL Albumin (3.5-5.0) g/dL Urine Color Light Yellow Urine Appearance Clear (Clear) Urine pH 6.5 (5.0-8.0) Ur Specific [place] 1.013 (1.001-1.035) Urine Protein Trace H (Negative) Urine Glucose (UA) Negative (Negative) Urine Ketones Negative (Negative) Urine Blood Negative (Negative) Urine Nitrite Negative (Negative) Urine Bilirubin Negative (Negative) Urine Urobilinogen <2.0 (<2.0) mg/dL Ur Leukocyte Esterase Negative (Negative) Urine Opiates Screen Not Detected (NotDetected) Ur Oxycodone Screen Detected H (NotDetected) Urine Methadone Screen Not Detected (NotDetected) Ur Propoxyphene Screen Not Detected (NotDetected) Ur Barbiturates Screen Not Detected (NotDetected) U Tricyclic Antidepress Not Detected (NotDetected) Ur Phencyclidine Scrn Not Detected (NotDetected) Ur Amphetamines Screen Not Detected (NotDetected) U Methamphetamines Scrn Not Detected (NotDetected) U Benzodiazepines Scrn Not Detected (NotDetected) Urine Cocaine Screen Not Detected (NotDetected) U Marijuana (THC) Screen Not Detected (NotDetected) Serum Alcohol mg/dL 12/09/19 Range/Units 16:24 WBC (3.8-10.6) k/uL RBC (4.30-5.90) m/uL Hgb (13.0-17.5) gm/dL Hct (39.0-53.0) % MCV (80.0-100.0) fL MCH (25.0-35.0) pg MCHC (31.0-37.0) g/dL RDW (11.5-15.5) % Plt Count (150-450) k/uL Neutrophils % % Lymphocytes % % Monocytes % % Eosinophils % % Basophils % % Neutrophils # (1.3-7.7) k/uL Lymphocytes # (1.0-4.8) k/uL Monocytes # (0-1.0) k/uL Eosinophils # (0-0.7) k/uL Basophils # (0-0.2) k/uL Hypochromasia Anisocytosis PT (9.0-12.0) sec INR (<1.2) APTT (22.0-30.0) sec Sodium 141 (137-145) mmol/L Potassium 4.6 (3.5-5.1) mmol/L Chloride 105 (98-107) mmol/L Carbon Dioxide 16 L (22-30) mmol/L Anion Gap 20 mmol/L BUN 33 H (9-20) mg/dL Creatinine 1.13 (0.66-1.25) mg/dL Est GFR (CKD-EPI)AfAm 76 (>60 ml/min/1.73 sqM) Est GFR (CKD-EPI)NonAf 66 (>60 ml/min/1.73 sqM) Glucose 161 H (74-99) mg/dL Calcium 7.4 L (8.4-10.2) mg/dL Total Bilirubin 0.9 (0.2-1.3) mg/dL AST 36 (17-59) U/L ALT 29 (4-49) U/L Alkaline Phosphatase 100 (38-126) U/L Creatine Kinase 106 (55-170) U/L Total Protein 6.6 (6.3-8.2) g/dL Albumin 3.8 (3.5-5.0) g/dL Urine Color Urine Appearance (Clear) Urine pH (5.0-8.0) Ur Specific [place] (1.001-1.035) Urine Protein (Negative) Urine Glucose (UA) (Negative) Urine Ketones (Negative) Urine Blood (Negative) Urine Nitrite (Negative) Urine Bilirubin (Negative) Urine Urobilinogen (<2.0) mg/dL Ur Leukocyte Esterase (Negative) Urine Opiates Screen (NotDetected) Ur Oxycodone Screen (NotDetected) Urine Methadone Screen (NotDetected) Ur Propoxyphene Screen (NotDetected) Ur Barbiturates Screen (NotDetected) U Tricyclic Antidepress (NotDetected) Ur Phencyclidine Scrn (NotDetected) Ur Amphetamines Screen (NotDetected) U Methamphetamines Scrn (NotDetected) U Benzodiazepines Scrn (NotDetected) Urine Cocaine Screen (NotDetected) U Marijuana (THC) Screen (NotDetected) Serum Alcohol <10 mg/dL Disposition Clinical Impression: Mental status change, Generalized pain, Delirium due to general medical condition Disposition: ADMITTED IP TO THIS [facility] Condition: Stable Is patient prescribed a controlled substance at d/c from ED?: No Referrals: Rk Keene III, MD [Primary Care Provider] - 1-2 days Decision to Admit Reason: Admit from EC Decision Date: 12/09/19 Decision Time: 18:27
[2019-12-09 16:40] LABS: Anisocytosis Slight; Basophils % (A) 0 %; Eosinophils # (A) 0.1 k/uL (0-0.7); Eosinophils % (A) 0 %; HCT 31.1 % (39.0-53.0); HGB 9.6 gm/dL (13.0-17.5); Hypochromasia Moderate; Lymphocytes # (A) 1.2 k/uL (1.0-4.8); Lymphocytes % (A) 7 %; MCH 29.1 pg (25.0-35.0); MCHC 30.9 g/dL (31.0-37.0); MCV 94.4 fL (80.0-100.0); Mean Platelet Volume 8.9; Monocytes # (A) 0.8 k/uL (0-1.0); Monocytes % (A) 4 %; Neutrophils # (A) 16.9 k/uL (1.3-7.7); Neutrophils % (A) 88 %; Platelet Count 253 k/uL (150-450); RBC 3.29 m/uL (4.30-5.90); WBC 19.2 k/uL (3.8-10.6)
--- NOTE | 2019-12-09 16:44 | CT ---
EXAMINATION TYPE: CT brain wo con DATE OF EXAM: 12/09/2019 COMPARISON: 12/12/2014 INDICATION: Mental status changes. DLP: 1217.4 mGycm, Automated exposure control for dose reduction was used. CONTRAST: None CT of the brain is performed utilizing 3 mm thick sections through the posterior fossa and 3 mm thick sections through the remaining calvarium. Study is performed within 24 hours of arrival to the hosp ital. No abnormal hyperdensity is present to suggest an acute intracranial hemorrhage. No mass lesion is evident. No acute infarcts are evident. Ventricles and sulci are appropriate for the patient age. Paranasal sinuses and mastoid air cells within the [id number] are clear. IMPRESSIONS: 1. No acute intracranial process.
[2019-12-09 16:47] LABS: AST 36 U/L (17-59); African American GFR (CKD) 76 (>60 ml/min/1.73 sqM); Albumin 3.8 g/dL (3.5-5.0); Alcohol <10 mg/dL; Alkaline Phosphatase 100 U/L (38-126); Anion Gap 20 mmol/L; Blood Urea Nitrogen 33 mg/dL (9-20); Calcium 7.4 mg/dL (8.4-10.2); Carbon Dioxide 16 mmol/L (22-30); Chloride 105 mmol/L (98-107); Creatine Kinase 106 U/L (55-170); Glucose 161 mg/dL (74-99); Non-African American GFR(CKD) 66 (>60 ml/min/1.73 sqM); Potassium 4.6 mmol/L (3.5-5.1); Sodium 141 mmol/L (137-145); Total Bilirubin 0.9 mg/dL (0.2-1.3); Total Protein 6.6 g/dL (6.3-8.2)
[2019-12-09 16:53] LABS: ALT 29 U/L (4-49)
[2019-12-09 16:55] LABS: Appearance,Urine Clear (Clear); Bilirubin,Urine Negative (Negative); Blood,Urine Negative (Negative); Color,Urine Light Yellow; Glucose,Urine (UA) Negative (Negative); Ketones,Urine Negative (Negative); Leukocyte Esterase,Urine Negative (Negative); Nitrite,Urine Negative (Negative); PH, Urine 6.5 (5.0-8.0); Protein,Urine Trace (Negative); Specific Gravity,Urine 1.013 (1.001-1.035); Urobilinogen,Urine <2.0 mg/dL (<2.0)
[2019-12-09 16:56] LABS: INR 1.1 (<1.2); Prothrombin Time 10.8 sec (9.0-12.0)
[2019-12-09 17:00] LABS: Amphetamine Screen,Urine Not Detected (NotDetected); Barbiturate Screen,Urine Not Detected (NotDetected); Benzodiazepines Screen,Urine Not Detected (NotDetected); Cocaine Screen,Urine Not Detected (NotDetected); Methadone Screen, Urine Not Detected (NotDetected); Opiate Screen,Urine Not Detected (NotDetected); Oxycodone Screen, Urine Detected (NotDetected); Phencyclidine Screen,Urine Not Detected (NotDetected); Tricyclic Antidepressant,Urine Not Detected (NotDetected); Urn Cannabinoid Scrn Not Detected (NotDetected)
--- NOTE | 2019-12-09 17:08 | XR ---
EXAMINATION TYPE: XR chest 1V portable DATE OF EXAM: 12/09/2019 COMPARISON: 11/23/2019 HISTORY: Fever TECHNIQUE: 2 views FINDINGS: Heart is normal. Lungs are clear of infiltrate. There is no heart failure. Thoracic aorta i s atheromatous. There is right shoulder prosthesis. IMPRESSION: No active cardiopulmonary disease. Normal heart. No change.
--- NOTE | 2019-12-09 17:42 | XR ---
EXAMINATION TYPE: XR shoulder limited bilateral DATE OF EXAM: 12/09/2019 COMPARISON: NONE HISTORY: Shoulder pain TECHNIQUE: 2 views FINDINGS: A single view of each shoulder was obtained. There is right shoulder prosthesis. Components appear anatomic. A single view of the left shoulder shows no fracture nor dislocation. There are no definite pathologic calcifications at the greater tuberosity. IMPRESSION: No acute abnormality of the left and right shoulder.
[2019-12-09] MEDS ORDERED: NALOXONE 0.4 MG/ML 1 ML VIAL IV PRN (18:12)
[2019-12-09] MEDS ORDERED: ACETAMINOPHEN TAB 325 MG TAB PO PRN (18:12)
[2019-12-09] MEDS: HYDROmorphone 0.5 MG/0.5 ML SYRINGE IVP PRN ×2 (18:21→21:22)
[2019-12-09] MEDS: SODIUM CHLORIDE 0.9% 1,000 ML IV SCH ×2 (18:24→23:31)
[2019-12-09] MEDS: LORazepam 2 MG/ML INJ IV PRN (23:27)
[2019-12-10] MEDS: HYDROmorphone 0.5 MG/0.5 ML SYRINGE IVP PRN ×6 (02:25→16:36)
[2019-12-10] MEDS: LORazepam 2 MG/ML INJ IV PRN (04:50)
[2019-12-10] MEDS: SODIUM CHLORIDE 0.9% 1,000 ML IV SCH ×3 (07:50→21:47)
[2019-12-10] MEDS ORDERED: traMADol 50 MG TAB PO PRN (09:34)
[2019-12-10] MEDS ORDERED: KETOROLAC 15 MG/ML 1 ML VIAL IVP STA (09:37)
[2019-12-10] MEDS ORDERED: NITROGLYCERIN SL TABS 0.4 MG TAB SUBLINGUAL PRN (12:58)
[2019-12-10] MEDS: APIXABAN 5 MG TAB PO SCH ×2 (14:00→22:09)
--- NOTE | 2019-12-10 14:06 | P.HPIM ---
History of Present Illness 69-year-old pleasant male well known to me from from his previous aspiration patient had a prolonged hospitalization for fevers patient will was workup was worked up for sepsis which was negative and subsequently diagnosed with mixed connective tissue disorder in [facility]. Patient at the nursing facility got agitated daily years because of which patient was sent in here patient is comparing of severe pain patient does have chronic back pain issues patient is on multiple medications that can cause delirium and confusion including the oxycodone and baclofen and gabapentin teen. Patient was evaluated by neurology for altered mental status and the patient is being started on Lyrica instead of gabapentin teen patient did receive Dilaudid unfortunately we don't have many choices. It's documented as patient is ALLERGIC to Tylenol but the that doesn't appear to be real ALLERGY and patient appeared to have some side effects from Tylenol. Patient to presently is being started on Tylenol to avoid opiates considering his delirium and agitation episodes. Ativan will be discontinued as well will use Seroquel and Haldol as needed for agitation. And the patient will also be started on Toradol with close monitoring of kidney function. He did have a low-grade fever which is a significant decrease in acuity disorder and there is no evidence of infection at this time. Patient had a CT of the brain which did not show any significant abnormality. Review of Systems Unable to obtain due to his clinical condition Past Medical History Past Medical History: Coronary Artery Disease (CAD), Chest Pain / Angina, Heart Failure, COPD, Deep Vein Thrombosis (DVT), GERD/Reflux, Hyperlipidemia, Hypertension, Osteoarthritis (OA), Pneumonia, Prostate Disorder, Respiratory Disorder, Sleep Apnea/CPAP/BIPAP Additional Past Medical History / Comment(s): Pt recently admitted to [facility] on 11/03/19 with fever/cervical and back pain, sepsis unknown source/urinary retention with IDC. Other hx: Spouse states pt has been febrile/neck pain since August 2019 with admits to [facility] and [facility], had picc line at [facility] with DVT R arm/sepsis d/t bilateral lower leg cellulitis, venous insufficiency/lower leg edema, spondylolsis, cervical and low back pain, DDD, chronic respiratory failure, CALLI with Cpap/O2 at 4L/NC at , nonsustained vtach, TIAs, small vessel disease, IDDM type II, BPH, diverticular disease, colon polyps-benign, sinus problems, seasonal allergies History of Any Multi-Drug Resistant Organisms: None Reported Past Surgical History: Back Surgery, Heart Catheterization With Stent, Joint Replacement, Orthopedic Surgery Additional Past Surgical History / Comment(s): Bilateral knee arthroscopies, total L knee arthroplasty, R total shoulder arthroplasty, L hand injury with repair, low back surgery, PCI with 3 stents, colonoscopies/polypectomies, lumbar epidural injections, bilateral cataract removals/lens implants. Past Anesthesia/Blood Transfusion Reactions: No Reported Reaction Additional Past Anesthesia/Blood Transfusion Reaction / Comment(s): STATES "HAD A HARD TIME WITH BREATHING POST OP" Date of Last Stent Placement:: 2009 Past Psychological History: No Psychological Hx Reported Additional Psychological History / Comment(s): Pt currently at [facility]. He states he in bed or staff gets him up into wheelchair. He has an IDC. Pt served in the [employer]. Smoking Status: Former smoker Past Alcohol Use History: None Reported Additional Past Alcohol Use History / Comment(s): QUIT SMOKING IN 2009, STARTED 1962, SMOKED 2 PPD Past Drug Use History: None Reported - Past Family History Father Family Medical History: CVA/TIA, Hyperlipidemia, Hypertension Mother Family Medical History: Hypertension Medications and Allergies Home Medications Medication Instructions Recorded Confirmed Type Nitroglycerin Sl Tabs [Nitrostat] 0.4 mg SL Q5M PRN 03/09/14 12/09/19 History Atorvastatin [Lipitor] 80 mg PO HS 05/08/15 12/09/19 History Fluticasone/Vilanterol [Breo 1 puff INHALATION RT-HS 03/12/18 12/09/19 History Ellipta 100-25 Mcg Inhaler] Potassium Chloride ER [K-Dur 20] 20 meq PO BID #0 03/15/18 12/09/19 Rx Ipratropium-Albuterol Nebulize 3 ml INHALATION RT-QID PRN 09/02/19 12/09/19 History [Duoneb 0.5 mg-3 mg/3 ml Soln] Metoprolol Tartrate 25 mg PO BID 09/02/19 12/09/19 History Pramipexole Di-HCl [Mirapex] 1 mg PO HS 09/02/19 12/09/19 History Apixaban [Eliquis] 5 mg PO Q12H 11/01/19 12/09/19 History Ketoconazole [Ketoconazole 2% 1 applic TOPICAL Q72H 11/01/19 12/09/19 History Shampoo] QUEtiapine [SEROquel] 25 mg PO HS tab 11/17/19 12/09/19 Rx Omeprazole 20 mg PO AC-BRKFST 11/23/19 12/09/19 History Tamsulosin [Flomax] 0.4 mg PO HS 11/23/19 12/09/19 History Aspirin EC [Ecotrin Low Dose] 81 mg PO DAILY 12/09/19 12/09/19 History Baclofen 10 mg PO Q8H 12/09/19 12/09/19 History Furosemide [Lasix] 20 mg PO BID 12/09/19 12/09/19 History Glimepiride [Amaryl] 2 mg PO AC-BRKFST 12/09/19 12/09/19 History Insulin Glargine,Hum.rec.anlog 50 unit SQ HS 12/09/19 12/09/19 History [Lantus Solostar] Magnesium Oxide [Mag-Ox] 400 mg PO DAILY 12/09/19 12/09/19 History Sennosides/Docusate Sodium [Senna 1 cap PO DAILY 12/09/19 12/09/19 History Plus 8.6-50 mg Softgel] hydrOXYzine HCL [Atarax] 25 mg PO Q6H 12/09/19 12/09/19 History oxyCODONE-APAP 7.5-325MG [Percocet 1 tab PO Q6H PRN 12/09/19 12/09/19 History 7.5-325 mg] predniSONE [Deltasone] 20 mg PO DAILY 12/09/19 12/09/19 History Allergies Allergy/AdvReac Type Severity Reaction Status Date / Time acetaminophen [From Tylenol] AdvReac kidney/liver Verified 12/09/19 19:09 issues prednisone AdvReac Extreme Verified 12/09/19 16:30 aggression with high doses Physical Exam Vitals: Vital Signs Temp Pulse Pulse Pulse Resp BP BP 12/10/19 10:21 118 H 12/10/19 07:44 121 H 12/10/19 07:10 100 F H 122 H 18 143/63 12/10/19 03:02 97.5 F L 84 17 177/81 12/10/19 00:00 18 12/09/19 22:18 98.0 F 77 18 154/91 12/09/19 20:00 18 12/09/19 19:50 98 F 81 18 133/62 12/09/19 19:30 81 18 133/62 12/09/19 19:00 82 17 128/58 12/09/19 18:30 76 17 147/76 12/09/19 18:26 90 18 147/76 12/09/19 18:00 104/56 12/09/19 17:30 121/52 12/09/19 17:00 118/81 12/09/19 16:35 98 F 123 H 18 127/69 12/09/19 16:30 137/69 12/09/19 16:13 12/09/19 16:08 99.5 F 127 H 20 145/83 Pulse Ox 12/10/19 10:21 12/10/19 07:44 12/10/19 07:10 95 12/10/19 03:02 98 12/10/19 00:00 12/09/19 22:18 100 12/09/19 20:00 12/09/19 19:50 97 12/09/19 19:30 97 12/09/19 19:00 99 12/09/19 18:30 98 12/09/19 18:26 93 L 12/09/19 18:00 94 L 12/09/19 17:30 88 L 12/09/19 17:00 93 L 12/09/19 16:35 93 L 12/09/19 16:30 92 L 12/09/19 16:13 96 12/09/19 16:08 96 Intake and Output 12/09/19 12/10/19 12/10/19 22:59 06:59 14:59 Intake Total 260 Output Total 1999 2099 Balance -1999 260 Intake: Intake, IV Titration 260 Amount Sodium Chloride 0.9% 1, 260 000 ml @ 130 mls/hr IV . Q7H42M [facility] Rx#:[id number] Output: Urine 1999 2099 Other: Voiding Method Indwelling Catheter Indwelling Catheter Indwelling Catheter Weight 96.388 kg PHYSICAL EXAMINATION: We did as patient doesn't follow commands and patient is a confused agitated GENERAL: The patient is alert and fused agitated, not in any acute distress. Well developed, well nourished. HEENT: Pupils are round and equally reacting to light. EOMI. No scleral icterus. No conjunctival pallor. Normocephalic, atraumatic. No pharyngeal erythema. No thyromegaly. CARDIOVASCULAR: S1 and S2 present. No murmurs, rubs, or gallops. PULMONARY: Unable to assess ABDOMEN: Soft, nontender, nondistended, normoactive bowel sounds. No palpable organomegaly. MUSCULOSKELETAL: No joint swelling or deformity. EXTREMITIES: No cyanosis, clubbing, or pedal edema. NEUROLOGICAL: Unable to assess confused SKIN: No rashes. Results CBC & Chem 7: 12/09/19 16:24 12/09/19 16:24 Labs: Abnormal Lab Results - Last 24 Hours (Table) 12/09/19 12/09/19 12/09/19 Range/Units 16:24 16:24 16:24 WBC 19.2 H (3.8-10.6) k/uL RBC 3.29 L (4.30-5.90) m/uL Hgb 9.6 L D (13.0-17.5) gm/dL Hct 31.1 L (39.0-53.0) % MCHC 30.9 L (31.0-37.0) g/dL RDW 18.0 H (11.5-15.5) % Neutrophils # 16.9 H (1.3-7.7) k/uL APTT 21.0 L (22.0-30.0) sec Carbon Dioxide (22-30) mmol/L BUN (9-20) mg/dL Glucose (74-99) mg/dL Plasma Lactic Acid Teo (0.7-2.0) mmol/L Calcium (8.4-10.2) mg/dL Urine Protein Trace H (Negative) Ur Oxycodone Screen Detected H (NotDetected) 12/09/19 12/09/19 Range/Units 16:24 17:30 WBC (3.8-10.6) k/uL RBC (4.30-5.90) m/uL Hgb (13.0-17.5) gm/dL Hct (39.0-53.0) % MCHC (31.0-37.0) g/dL RDW (11.5-15.5) % Neutrophils # (1.3-7.7) k/uL APTT (22.0-30.0) sec Carbon Dioxide 16 L (22-30) mmol/L BUN 33 H (9-20) mg/dL Glucose 161 H (74-99) mg/dL Plasma Lactic Acid Teo 9.6 H* (0.7-2.0) mmol/L Calcium 7.4 L (8.4-10.2) mg/dL Urine Protein (Negative) Ur Oxycodone Screen (NotDetected) Assessment and Plan Plan: -Altered mental status secondary to toxic encephalopathy from multiple medications all the narcotic takes including benzodiazepines, opiates and anticollagen medications will be discontinued and the patient will be started on Toradol and Tylenol for pain. Gabapentin is being discontinued and patient is being started on Lyrica. Neurology evaluated the patient -Fever with leukocytosis secondary to excessive acute issue patient was extensively evaluated during his past admissions for these symptoms and no evidence of infection was appreciated. -Chronic back and neck pain -Recent the right upper extremity DVT for which patient is on Eliquis which will be continued Of coronary artery disease -Congestive heart failure chronic diastolic dysfunction presently not in acute exacerbation patient will be closely monitored for heart failure patient is p resently getting IV fluids Type 2 diabetes mellitus insulin-dependent continue with her present regimen -Obstructive sleep apnea next and-obesity -COPD without any acute exacerbation -History of nonsustained VT in the past -Gastroesophageal reflux disease -Hyperlipidemia -Lactic is doses secondary to intravascular depletion for which patient is receiving IV fluids at this time which will be continued Lasix will be held temporarily
[2019-12-10] MEDS: PREGABALIN 75 MG CAP PO SCH ×2 (15:53→22:09)
[2019-12-10] MEDS: ACETAMINOPHEN IV (For NPO) 1,000 MG in EMPTY BAG 1 BAG IVPB PRN (15:54)
--- NOTE | 2019-12-10 17:24 | P.CNNES ---
History of Present Illness Consult date: 12/10/19 Requesting physician: Rickie Nam Reason for Consult: Agitated delirium, altered mental status History of Present Illness: Patient is a 69-year-old male was brought to the hospital by ambulance because of acute agitation. Patient not able to provide any history. I spoke to patient's , who provided most of the history. Patient has history of diabetes for last 3-4 years. Patient has long-standing history of chronic pain involving multiple joints and back, and in the whole body. He was recently diagnosed with MCTD at [facility]. Patient was started on prednisone 20 mg daily, but so far has not helped. Patient has been having delusions, aggression, agitation. When he gets delusional, he gets very mean at home and sometimes gets violent. He started screaming out loudly. The symptoms started in August 2019 and he has been 13 times to different hospitals for same complaints. Patient gets spasms in the low back. He also has bad degenerative disc disease, osteoarthritis. Patient has an appointment with [facility] on 12/23/2019. He is also going to see a fleecer next month for chronic leukocytosis. Patient had undergone CT head showed no acute intracranial process. Chest x-ray showed no acute cardiopulmonary disease. Normal heart. EKG shows sinus tachycardia with premature atrial complexes. X-ray of the shoulders are normal. Patient's WBC 19.2 hemoglobin 9.6 platelets 253. INR 1.1 PTT is 21.0. Electrolytes normal BUN 33 creatinine 1.13. Hepatic panel normal. CPK normal UA negative. Urine drug screen positive for oxycodone. Blood ankle level negative. Patient's last hemoglobin A1c 7.8 on 09/22/2019. TSH 5.11 elevated on 11/06/2019. Free T4 normal. Rheumatoid factor, CCP De La [place]re antibodies negative. SARATH positive with titer is 160 speckled pattern. C and P ANCA negative. RETORT LOAD EXPEDITER positive. 2-D echo from 03/30/2018 showed normal sinus rhythm. Mild concentric LVH. EF is 50-55%. Patient had an MRI of cervical spine with and without IV contrast on 11/05/2019, was negative for any focal discitis/osteomyelitis. Patient had a whole-body nuclear medicine WBC scan which revealed increased uptake proximal left humeral metaphysis. This should be correlated with any history of shoulder surgery. Mildly increased uptake at the lateral right lung base above the liver could related to pneumonia and pyogenic infection and repeat chest x-rays recommended. Patient was seen by psychiatrist on 11/24/2019, and was diagnosed with delirium, likely etiology toxic metabolic, medications and infection. Review of Systems Patient is diffuse pain. ROS unobtainable: due to mental status Past Medical History Past Medical History: Coronary Artery Disease (CAD), Chest Pain / Angina, Heart Failure, COPD, Deep Vein Thrombosis (DVT), GERD/Reflux, Hyperlipidemia, Hyp ertension, Osteoarthritis (OA), Pneumonia, Prostate Disorder, Respiratory Disorder, Sleep Apnea/CPAP/BIPAP Additional Past Medical History / Comment(s): Pt recently admitted to [facility] on 11/03/19 with fever/cervical and back pain, sepsis unknown source/urinary retention with IDC. Other hx: Spouse states pt has been febrile/neck pain since August [address] [facility] and [facility], had picc line at [facility] with DVT R arm/sepsis d/t bilateral lower leg cellulitis, venous insufficiency/lower leg edema, spondylolsis, cervical and low back pain, DDD, chronic respiratory failure, CALLI with Cpap/O2 at 4L/NC at , nonsustained vtach, TIAs, small vessel disease, IDDM type II, BPH, diverticular disease, colon polyps-benign, sinus problems, seasonal allergies History of Any Multi-Drug Resistant Organisms: None Reported Past Surgical History: Back Surgery, Heart Catheterization With Stent, Joint Replacement, Orthopedic Surgery Additional Past Surgical History / Comment(s): Bilateral knee arthroscopies, total L knee arthroplasty, R total shoulder arthroplasty, L hand injury with repair, low back surgery, PCI with 3 stents, colonoscopies/polypectomies, lumbar epidural injections, bilateral cataract removals/lens implants. Past Anesthesia/Blood Transfusion Reactions: No Reported Reaction Additional Past Anesthesia/Blood Transfusion Reaction / Comment(s): STATES "HAD A HARD TIME WITH BREATHING POST OP" Date of Last Stent Placement:: 2009 Past Psychological History: No Psychological Hx Reported Additional Psychological History / Comment(s): Pt currently at [facility]. He states he in bed or staff gets him up into wheelchair. He has an IDC. Pt served in the [employer]. Smoking Status: Former smoker Past Alcohol Use History: None Reported Additional Past Alcohol Use History / Comment(s): QUIT SMOKING IN 2009, STARTED 1962, SMOKED 2 PPD Past Drug Use History: None Reported - Past Family History Father Family Medical History: CVA/TIA, Hyperlipidemia, Hypertension Mother Family Medical History: Hypertension Medications and Allergies Home Medications Medication Instructions Recorded Confirmed Type Nitroglycerin Sl Tabs [Nitrostat] 0.4 mg SL Q5M PRN 03/09/14 12/09/19 History Atorvastatin [Lipitor] 80 mg PO HS 05/08/15 12/09/19 History Fluticasone/Vilanterol [Breo 1 puff INHALATION RT-HS 03/12/18 12/09/19 History Ellipta 100-25 Mcg Inhaler] Potassium Chloride ER [K-Dur 20] 20 meq PO BID #0 03/15/18 12/09/19 Rx Ipratropium-Albuterol Nebulize 3 ml INHALATION RT-QID PRN 09/02/19 12/09/19 History [Duoneb 0.5 mg-3 mg/3 ml Soln] Metoprolol Tartrate 25 mg PO BID 09/02/19 12/09/19 History Pramipexole Di-HCl [Mirapex] 1 mg PO HS 09/02/19 12/09/19 History Apixaban [Eliquis] 5 mg PO Q12H 11/01/19 12/09/19 History Ketoconazole [Ketoconazole 2% 1 applic TOPICAL Q72H 11/01/19 12/09/19 History Shampoo] QUEtiapine [SEROquel] 25 mg PO HS tab 11/17/19 12/09/19 Rx Omeprazole 20 mg PO AC-BRKFST 11/23/19 12/09/19 History Tamsulosin [Flomax] 0.4 mg PO HS 11/23/19 12/09/19 History Aspirin EC [Ecotrin Low Dose] 81 mg PO DAILY 12/09/19 12/09/19 History Baclofen 10 mg PO Q8H 12/09/19 12/09/19 History Furosemide [Lasix] 20 mg PO BID 12/09/19 12/09/19 History Glimepiride [Amaryl] 2 mg PO AC-BRKFST 12/09/19 12/09/19 History Insulin Glargine,Hum.rec.anlog 50 unit SQ HS 12/09/19 12/09/19 History [Lantus Solostar] Magnesium Oxide [Mag-Ox] 400 mg PO DAILY 12/09/19 12/09/19 History Sennosides/Docusate Sodium [Senna 1 cap PO DAILY 12/09/19 12/09/19 History Plus 8.6-50 mg Softgel] hydrOXYzine HCL [Atarax] 25 mg PO Q6H 12/09/19 12/09/19 History oxyCODONE-APAP 7.5-325MG [Percocet 1 tab PO Q6H PRN 12/09/19 12/09/19 History 7.5-325 mg] predniSONE [Deltasone] 20 mg PO DAILY 12/09/19 12/09/19 History Allergies Allergy/AdvReac Type Severity Reaction Status Date / Time acetaminophen [From Tylenol] AdvReac kidney/liver Verified 12/09/19 19:09 issues prednisone AdvReac Extreme Verified 12/09/19 16:30 aggression with high doses Physical Examination - Vital Signs Vital Signs: Vital Signs Temp Pulse Pulse Pulse Resp BP BP 12/10/19 10:21 118 H 12/10/19 07:44 121 H 12/10/19 07:10 100 F H 122 H 18 143/63 12/10/19 03:02 97.5 F L 84 17 177/81 12/10/19 00:00 18 12/09/19 22:18 98.0 F 77 18 154/91 12/09/19 20:00 18 12/09/19 19:50 98 F 81 18 133/62 12/09/19 19:30 81 18 133/62 12/09/19 19:00 82 17 128/58 12/09/19 18:30 76 17 147/76 12/09/19 18:26 90 18 147/76 12/09/19 18:00 104/56 12/09/19 17:30 121/52 12/09/19 17:00 118/81 12/09/19 16:35 98 F 123 H 18 127/69 12/09/19 16:30 137/69 12/09/19 16:13 12/09/19 16:08 99.5 F 127 H 20 145/83 Pulse Ox 12/10/19 10:21 12/10/19 07:44 12/10/19 07:10 95 12/10/19 03:02 98 12/10/19 00:00 12/09/19 22:18 100 12/09/19 20:00 12/09/19 19:50 97 12/09/19 19:30 97 12/09/19 19:00 99 12/09/19 18:30 98 12/09/19 18:26 93 L 12/09/19 18:00 94 L 12/09/19 17:30 88 L 12/09/19 17:00 93 L 12/09/19 16:35 93 L 12/09/19 16:30 92 L 12/09/19 16:13 96 12/09/19 16:08 96 Intake and Output 12/09/19 12/10/19 12/10/19 22:59 06:59 14:59 Intake Total 260 Output Total 1999 2099 Balance -1999 260 Intake: Intake, IV Titration 260 Amount Sodium Chloride 0.9% 1, 260 000 ml @ 130 mls/hr IV . Q7H42M [facility] Rx#:[id number] Output: Urine 1999 2099 Other: Voiding Method Indwelling Catheter Indwelling Catheter Indwelling Catheter Weight 96.388 kg On examination patient is an elderly male, who was sleeping when arr ived to the room. On waking him up, patient started moaning, and then yelling, and severe pain. Patient complaining of back spasms. Language functions are normal. Orientation could not be tested. His pupils are round and reacting. Visual kimball could not be tested. Face is symmetric and tongue protrudes the midline. He has evidence of thrush. Hearing appears slightly decreased. Shoulder shrug cannot be checked. Muscle strength appears normal in arms. I could not check strength in the lower limbs, as he started crying, yelling. Complaining of severe back spasms. Reflexes are diminished and plantars are downgoing. Tone and bulk of muscles appears normal. Cerebellar functions could not be tested gait could not be tested. No obvious bruit S1 and S2 audible. Mild peripheral edema. Abdomen is soft nontender. Chest is clear. Results - Laboratory Findings CBC and BMP: 12/09/19 16:24 12/09/19 16:24 Abnormal Lab Findings: Abnormal Labs 12/09/19 12/09/19 12/09/19 16:24 16:24 16:24 WBC 19.2 H RBC 3.29 L Hgb 9.6 L D Hct 31.1 L MCHC 30.9 L RDW 18.0 H Neutrophils # 16.9 H APTT 21.0 L Carbon Dioxide BUN Glucose Plasma Lactic Acid Teo Calcium Urine Protein Trace H Ur Oxycodone Screen Detected H 12/09/19 12/09/19 16:24 17:30 WBC RBC Hgb Hct MCHC RDW Neutrophils # APTT Carbon Dioxide 16 L BUN 33 H Glucose 161 H Plasma Lactic Acid Teo 9.6 H* Calcium 7.4 L Urine Protein Ur Oxycodone Screen Assessment and Plan Assessment: * Chronic pain syndrome. 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 Possible underlying diabetic neuropathy. * Recurrent back spasms, rule out stiff person syndrome. Patient has history of back surgery in the past * Diabetes, not very well controlled, A1c 7.8. * Osteoarthritis Plan: * For chronic pain, we will start Lyrica 75 mg twice a day. If tolerated, the dose can be increased rapidly to 100 mg 3 times a day, or 150 mg twice a day. * We will check blood tests including B12, folate, B6, FAROOQ antibodies to rule out stiff person syndrome. We will check immune fixation electrophoresis, SPEP to rule out myeloma. Repeat ESR and CRP. Suggest checking blood cultures. * MRI of the lumbar and thoracic spine with and without contrast to rule out discitis, osteomyelitis. * Patient also has possible thrush. Suggest appropriate treatment. Consider decreasing prednisone down to 10 mg daily. * Neurology coverage not available over the weekend. Please perfect serve over the weekend if any questions.
[2019-12-10 19:33] LABS: C Reactive Protein 209.7 mg/L (<10.0)
[2019-12-10] MEDS: SYMBICORT 80-4.5 MCG INHALER INHALATION SCH (20:37)
[2019-12-10] MEDS ORDERED: HYDROmorphone 2 MG TAB PO STA (21:51)
[2019-12-10] MEDS: TAMSULOSIN 0.4 MG CAP.ER.24H PO SCH ×2 (21:58→21:59)
[2019-12-10] MEDS: FAMOTIDINE 20 MG TAB PO SCH (21:59)
[2019-12-10] MEDS: METOPROLOL TARTRATE 25 MG TAB PO SCH (21:59)
[2019-12-10] MEDS: QUEtiapine 25 MG TAB PO PRN (21:59)
[2019-12-10] MEDS: ATORVASTATIN 80 MG TAB PO SCH (21:59)
[2019-12-10] MEDS: PRAMIPEXOLE 1 MG TAB PO SCH (22:09)
[2019-12-10] MEDS: INSULIN DETEMIR (LEVEMIR) 100 UNIT/ML SYR SQ SCH (22:09)
[2019-12-10] MEDS ORDERED: HYDROmorphone 2 MG TAB PO PRN (22:54)
[2019-12-10] MEDS ORDERED: CEPHALEXIN 500 MG CAP PO STA (23:01)
[2019-12-10] MEDS ORDERED: VANCOMYCIN IV PER PHARMACY 1 EACH MISC MISCELLANE PRN (23:17)
[2019-12-11] MEDS: PREGABALIN 75 MG CAP PO SCH ×2 (07:11→21:01)
[2019-12-11] MEDS: GLIMEPIRIDE 2 MG TAB PO SCH (07:12)
[2019-12-11] MEDS: ASPIRIN 81 MG PO SCH (07:12)
[2019-12-11] MEDS: MAGNESIUM OXIDE 400 MG TAB PO SCH (07:12)
[2019-12-11] MEDS: FAMOTIDINE 20 MG TAB PO SCH ×2 (07:12→21:01)
[2019-12-11] MEDS: METOPROLOL TARTRATE 25 MG TAB PO SCH ×3 (07:12→21:13)
[2019-12-11] MEDS: PANTOPRAZOLE 40 MG TABLET PO SCH (07:12)
[2019-12-11] MEDS: APIXABAN 5 MG TAB PO SCH ×2 (07:13→21:02)
[2019-12-11] MEDS: HYDROmorphone 0.5 MG/0.5 ML SYRINGE IVP PRN ×3 (07:55→21:00)
[2019-12-11] MEDS: KETOCONAZOLE 2% SHAMPOO 1 APPLIC/ML TOPICAL SCH (08:27)
[2019-12-11] MEDS: SYMBICORT 80-4.5 MCG INHALER INHALATION SCH ×2 (08:53→20:02)
[2019-12-11] MEDS ORDERED: VANCOMYCIN 1,500 MG in SODIUM CHLORIDE 0.9% 250 ML IVPB ONE (09:00)
[2019-12-11 09:57] LABS: Protein, Total 4.8 g/dL (6.2-8.2)
[2019-12-11] MEDS: SODIUM CHLORIDE 0.9% 1,000 ML IV SCH ×2 (10:38→23:33)
[2019-12-11] MEDS: predniSONE 20 MG TAB PO SCH (10:40)
[2019-12-11] MEDS: BACLOFEN 10 MG TAB PO PRN ×2 (10:40→21:02)
[2019-12-11] MEDS: ACETAMINOPHEN IV (For NPO) 1,000 MG in EMPTY BAG 1 BAG IVPB PRN (10:41)
[2019-12-11] MEDS ORDERED: ACETAMINOPHEN TAB 325 MG TAB PO PRN (13:41)
--- NOTE | 2019-12-11 14:29 | MR ---
EXAMINATION TYPE: MR tspine/lspine wo/w con DATE OF EXAM: 12/11/2019 COMPARISON: MRI lumbar spine April 19, 2009. CT thorax November 12, 2019. HISTORY: Back pain, evaluate for discitis/osteomyelitis. TECHNIQUE: Multiplanar, multisequence imaging of the thoracic and lumbar spine are performed without and with IV contrast. Patient injected with 9.5 cc of gadolinium for the study. FINDINGS: Thoracic spine: Exam noted suboptimal as patient awoke and became combative during postcontrast thora cic spine imaging. Exam could not be completed. Images obtained show significant motion artifact degr adation. Localizer image shows reversal of normal cervical curvature with multilevel spondylolisthesi s centered C5 level effacing anterior thecal sac. Posterior disc herniation C7-T1 level effaces anter ior thecal sac. Spinal cord shows normal caliber and signal as it courses the thoracic spine. Verte bral body heights are satisfactory. Alignment is straightened. Disc space heights fairly well maintai moni. Bone marrow signal intensity preserved. No obvious suspicious enhancement. Small hemangioma at t he anterior T5 level noted sagittal image 11. Small posterior disc herniations mildly effaces the ant erior thecal sac at T7-T8 through the T9-T10 levels on sagittal image 8. Axial images show no additional significant disc herniation or marked neural foraminal narrowing. The re is left basilar dependent atelectasis. IMPRESSION: No obvious suspicious edema or enhancement to suggest discitis/acute osteomyelitis in the thoracic spine. Lumbar spine: FINDINGS: Sagittal images of the lumbar spine show vertebral body heights to remain satisfactory. The re is disc desiccation mid lumbar levels. There is persistent [id number] multilevel disc space narrowing . The conus medullaris remains normal in position and signal ending mid L1 level. Mild to moderate multilevel anterior spurring. There is new increased signal or edema in the L4-L5 and L5-S1 disc spaces. There is Modic type I degenerative change L5-S1 level with diminished T1 and increased T 2 signal. Some heterogeneous endplate enhancement noted. There is additional enhancement in the anter ior and posterior aspect of the L4 disc with more prominent anterior extrusion extending inferiorly n oted. Some posterior epidural enhancement surrounding disc herniation noted. Some mild adjacent osseo us enhancement at this level. Axial images show T12-L1 2 appear within normal limits. Axial images at L1-L2 level show mild/moderate broad disc bulge with right foraminal/lateral disc pro trusion component causing moderate right-sided inferior neural foraminal narrowing. There is effaceme nt of the anterolateral thecal sac. There is mild facet arthropathy bilaterally. Axial images at the L2-L3 level show moderate broad disc bulge with right paracentral disc protrusion component effacing anterior thecal sac and mild facet arthropathy bilaterally. There is dctp-on-iveu rate right anterior inferior neural foraminal narrowing. Axial images at L3-L4 level show mild/moderate broad-based disc bulge effacing anterior thecal sac wi th mild facet arthropathy bilaterally. There is mild to moderate left greater than right bilateral an terior inferior neural foraminal narrowing. Axial images at the L4-L5 level show moderate facet arthropathy bilaterally. There is moderate broad- based disc bulge. There is effacement of the anterior thecal sac. There is severe right and moderate left-sided neural foraminal narrowing. Encroachment right L4 nerve is felt present. Axial images at the L5-S1 level shows moderate facet arthropathy bilaterally. There is central disc p rotrusion mildly effacing right anterolateral thecal sac. There is asymmetric pida-oy-ratioeew right- sided neural foraminal narrowing. Best seen on sagittal T2 fat saturated sequence there is abnormal edema inferiorly near L5 level invo lving posterior soft tissue also seen anteriorly greater in the right aspect. Findings suspicious for acute infectious process. There is fatty linear lesion in the spinal canal incidentally noted. Lipom atous change to the filum terminale. IMPRESSION: Infectious process lower lumbar spine is confirmed with abnormal fluid and enhancement. N o well-formed fluid collection or drainable abscess. Areas of discitis/acute osteomyelitis likely pre sent with the surrounding inflammatory change as detailed above.
--- NOTE | 2019-12-11 15:39 | P.PN ---
Subjective 69-year-old pleasant male well known to me from from his previous aspiration patient had a prolonged hospitalization for fevers patient will was workup was worked up for sepsis which was negative and subsequently diagnosed with mixed connective tissue disorder in [facility]. Patient at the nursing facility got agitated daily years because of which patient was sent in here patient is comparing of severe pain patient does have chronic back pain issues patient is on multiple medications that can cause delirium and confusion including the oxycodone and baclofen and gabapentin teen. Patient was evaluated by neurology for altered mental status and the patient is being started on Lyrica instead of gabapentin teen patient did receive Dilaudid unfortunately we don't have many choices. It's documented as patient is ALLERGIC to Tylenol but the that doesn't appear to be real ALLERGY and patient appeared to have some side effects from Tylenol. Patient to presently is being started on Tylenol to avoid opiates considering his delirium and agitation episodes. Ativan will be discontinued as well will use Seroquel and Haldol as needed for agitation. And the patient will also be started on Toradol with close monitoring of kidney f unction. He did have a low-grade fever which is a significant decrease in acuity disorder and there is no evidence of infection at this time. Patient had a CT of the brain which did not show any significant abnormality. 10/10/2019 Patient still has episodes of agitation. Patient is found to have bacteremia with alpha hemolytic streptococci although source is unknown at this time. Patient is undergoing a repeat MRI of the cervical spine infectious disease evaluated the patient. Review of systems: Unable to obtain due to his clinical condition All inpatient medications were reviewed and appropriate changes in these medications as dictated in the interval history and assessment and plan. Objective - Vital Signs Vital signs: Vital Signs Temp 98.7 F 12/11/19 13:30 Pulse 99 12/11/19 07:00 Resp 18 12/11/19 07:00 BP 125/66 12/11/19 07:00 Pulse Ox 97 12/11/19 07:00 Intake & Output 12/10/19 12/11/19 12/11/19 18:59 06:59 18:59 Intake Total 260 550 Output Total 700 1150 Balance -440 -600 Intake: Intake, IV Titration 260 150 Amount Sodium Chloride 0.9% 1, 260 000 ml @ 130 mls/hr IV . Q7H42M [facility] Rx#:[id number] Sodium Chloride 0.9% 1, 150 000 ml @ 75 mls/hr IV . [id number] [facility] Rx#:[id number] Oral 400 Output: Urine 700 1150 Other: Voiding Method Indwelling Catheter Indwelling Catheter Indwelling Catheter # Voids 2 - Exam patient doesn't follow commands and patient is a confused agitated GENERAL: The patient is alert and fused agitated, not in any acute distress. Well developed, well nourished. HEENT: Pupils are round and equally reacting to light. EOMI. No scleral icterus. No conjunctival pallor. Normocephalic, atraumatic. No pharyngeal erythema. No thyromegaly. CARDIOVASCULAR: S1 and S2 present. No murmurs, rubs, or gallops. PULMONARY: Unable to assess ABDOMEN: Soft, nontender, nondistended, normoactive bowel sounds. No palpable organomegaly. MUSCULOSKELETAL: No joint swelling or deformity. EXTREMITIES: No cyanosis, clubbing, or pedal edema. NEUROLOGICAL: Unable to assess confused SKIN: No rashes. - Labs CBC & Chem 7: 12/09/19 16:24 12/09/19 16:24 Labs: Abnormal Lab Results - Last 24 Hours (Table) 12/10/19 12/10/19 12/11/19 Range/Units 15:27 15:27 06:13 ESR 97 H (0-15) mm/hr C-Reactive Protein 209.7 H (<10.0) mg/L Total Protein (PEP) 4.8 L (6.2-8.2) g/dL Procalcitonin 3.00 H (0.02-0.09) ng/mL Microbiology - Last 24 Hours (Table) 12/09/19 17:38 Blood Culture Gram Stain - Preliminary Blood Blood Culture - Preliminary Alpha Hemolytic Streptococcus 12/09/19 17:38 Blood Culture - Final Blood Assessment and Plan Plan: Severe sepsis secondary to streptococcal bacteremia, patient will continue on ceftezole and will repeat the blood cultures infectious disease evaluate the patient patient is being evaluated again for discitis with an MRI of the cervical spine which was ordered by neurology. -Altered mental status secondary to toxic encephalopathy from multiple medications all the narcotic takes including benzodiazepines, opiates and anticollagen medications will be discontinued and the patient will be started on Toradol and Tylenol for pain. Gabapentin is being discontinued and patient is being started on Lyrica. Sepsis may be contributing to his altered status as well patient appears to have toxic encephalopathy. And a lengthy discussion with the believes makes her connective tissue disorder is contributing to his symptoms although his agitation is probably not related to that. -Fever with leukocytosis secondary to excessive acute issue patient was extensively evaluated during his past admissions for these symptoms and no evidence of infection was appreciated. -Chronic back and neck pain -Recent the right upper extremity DVT for which patient is on Eliquis which will be continued Of coronary artery disease -Congestive heart failure chronic diastolic dysfunction presently not in acute exacerbation patient will be closely monitored for heart failure patient is presently getting IV fluids Type 2 diabetes mellitus insulin-dependent continue with her present regimen -Obstructive sleep apnea next and-obesity -COPD without any acute exacerbation -History of nonsustained VT in the past -Gastroesophageal reflux disease -Hyperlipidemia -Lactic is doses secondary to intravascular depletion for which patient is receiving IV fluids at this time which will be continued Lasix will be held temporarily
[2019-12-11] MEDS: ATORVASTATIN 80 MG TAB PO SCH (21:01)
[2019-12-11] MEDS: TAMSULOSIN 0.4 MG CAP.ER.24H PO SCH (21:01)
[2019-12-11] MEDS: QUEtiapine 25 MG TAB PO PRN (21:02)
[2019-12-11] MEDS: INSULIN DETEMIR (LEVEMIR) 100 UNIT/ML SYR SQ SCH (21:13)
[2019-12-11] MEDS: PRAMIPEXOLE 1 MG TAB PO SCH (21:13)
[2019-12-11 21:14] LABS: Glucose,Whole Blood 33 mg/dL (75-99)
[2019-12-11 21:14] LABS: Glucose,Whole Blood 37 mg/dL (75-99)
[2019-12-11 21:26] LABS: Glucose,Whole Blood 38 mg/dL (75-99)
[2019-12-11 21:43] LABS: Glucose,Whole Blood 49 mg/dL (75-99)
[2019-12-11 22:03] LABS: Glucose,Whole Blood 74 mg/dL (75-99)
[2019-12-11] MEDS: KETOROLAC 15 MG/ML 1 ML VIAL IVP PRN (22:23)
--- NOTE | 2019-12-11 23:09 | P.CONS ---
History of Present Illness - Reason for Consult Consult date: 12/11/19 Bacteremia Requesting physician: Jen Collado - Chief Complaint Mental status changes x few days - History of Present Illness Patient is a 69-year-old male with recent multiple admissions to this facility as well as to [facility] in this patient who usually presents with mental status changes fever and generalized body aches patient did have extensive workup for infectious etiology including MRI of the cervical spine because of his neck pain that was negative for discitis CT of the chest and abdominal pelvis and a WBC scan subsequently has been evaluated by rheumatology patient did have serological workup, and was started on Solu-Medrol the p atient's issues clinical improvement subsequent the patient was transferred to [facility] with the patient was diagnosed with mixed connective tissue disorder, he was started on prednisone 20 mg daily and was advised to follow-up with outpatient setting since the patient has been discharged from [facility] on 11/29/2019 patient seemed to be having a low-grade fever off and on and the patient be complaining of generalized body aches and did have mental status changes especially worse in the evening and at night the patient has been brought in to [facility] ER by EMS on 12/08/2020 evaluation of patient not in his right state of mind and not allowed patient. He was given 4 mg of intramuscular ketamine for agitation and delirium and was transported to the ER, patient currently is afebrile however subsequently yesterday the patient did spike a fever of 102.9F patient did have elevated white count of 19,000, patient did have blood cultures drawn and he was started on cefazolin and subsequently blood cultures came back last evening for which infectious disease was consulted was unable to review his chart from home yesterday. Blood cultures were ordered and antibiotic was adjusted to vancomycin pending evaluation this morning at the time of evaluation this morning patient did spike another fever of 101.3F patient has received Dilaudid and is currently leth argic and unable to afford any history most of the information has been obtained from review the chart and talking to the present at the bedside was requested the patient to be transferred back pain to [facility], workup so far including a CT of the brain that was negative for acute intracranial process, chest x-ray was negative for any acute infiltrate and the patient has been negative patient was evaluated by neurology yesterday and MRI of the spine has been ordered scheduled for this afternoon Review of Systems Positive points has been mentioned in HPI complete review could not be obtained because of his underlying mental status Past Medical History Past Medical History: Coronary Artery Disease (CAD), Chest Pain / Angina, Heart Failure, COPD, Deep Vein Thrombosis (DVT), GERD/Reflux, Hyperlipidemia, Hype rtension, Osteoarthritis (OA), Pneumonia, Prostate Disorder, Respiratory Disorder, Sleep Apnea/CPAP/BIPAP Additional Past Medical History / Comment(s): Pt recently admitted to [facility] on 11/03/19 with fever/cervical and back pain, sepsis unknown source/urinary retention with IDC. Other hx: Spouse states pt has been febrile/neck pain since August 2019 with admits to [facility] and [facility], had picc line at [facility] with DVT R arm/sepsis d/t bilateral lower leg cellulitis, venous insufficiency/lower leg edema, spondylolsis, cervical and low back pain, DDD, chronic respiratory failure, CALLI with Cpap/O2 at 4L/NC at , nonsustained vtach, TIAs, small vessel disease, IDDM type II, BPH, diverticular disease, colon polyps-benign, sinus problems, seasonal allergies History of Any Multi-Drug Resistant Organisms: None Reported Past Surgical History: Back Surgery, Heart Catheterization With Stent, Joint Replacement, Orthopedic Surgery Additional Past Surgical History / Comment(s): Bilateral knee arthroscopies, t otal L knee arthroplasty, R total shoulder arthroplasty, L hand injury with repair, low back surgery, PCI with 3 stents, colonoscopies/polypectomies, lumbar epidural injections, bilateral cataract removals/lens implants. Past Anesthesia/Blood Transfusion Reactions: No Reported Reaction Additional Past Anesthesia/Blood Transfusion Reaction / Comm: STATES "HAD A HARD TIME WITH BREATHING POST OP" Date of Last Stent Placement:: 2009 Past Psychological History: No Psychological Hx Reported Additional Psychological History / Comment(s): Pt currently at [facility]. He states he in bed or staff gets him up into wheelchair. He has an IDC. Pt served in the [employer]. Smoking Status: Former smoker Past Alcohol Use History: None Reported Additional Past Alcohol Use History / Comment(s): QUIT SMOKING IN 2009, STARTED 1962, SMOKED 2 PPD Past Drug Use History: None Reported - Past Family History Father Family Medical History: CVA/TIA, Hyperlipidemia, Hypertension Mother Family Medical History: Hypertension Medications and Allergies Home Medications Medication Instructions Recorded Confirmed Type Nitroglycerin Sl Tabs [Nitrostat] 0.4 mg SL Q5M PRN 03/09/14 12/09/19 History Atorvastatin [Lipitor] 80 mg PO HS 05/08/15 12/09/19 History Fluticasone/Vilanterol [Breo 1 puff INHALATION RT-HS 03/12/18 12/09/19 History Ellipta 100-25 Mcg Inhaler] Potassium Chloride ER [K-Dur 20] 20 meq PO BID #0 03/15/18 12/09/19 Rx Ipratropium-Albuterol Nebulize 3 ml INHALATION RT-QID PRN 09/02/19 12/09/19 History [Duoneb 0.5 mg-3 mg/3 ml Soln] Metoprolol Tartrate 25 mg PO BID 09/02/19 12/09/19 History Pramipexole Di-HCl [Mirapex] 1 mg PO HS 09/02/19 12/09/19 History Apixaban [Eliquis] 5 mg PO Q12H 11/01/19 12/09/19 History Ketoconazole [Ketoconazole 2% 1 applic TOPICAL Q72H 11/01/19 12/09/19 History Shampoo] QUEtiapine [SEROquel] 25 mg PO HS tab 11/17/19 12/09/19 Rx Omeprazole 20 mg PO -BRKFST 11/23/19 12/09/19 History Tamsulosin [Flomax] 0.4 mg PO HS 11/23/19 12/09/19 History Aspirin EC [Ecotrin Low Dose] 81 mg PO DAILY 12/09/19 12/09/19 History Baclofen 10 mg PO Q8H 12/09/19 12/09/19 History Furosemide [Lasix] 20 mg PO BID 12/09/19 12/09/19 History Glimepiride [Amaryl] 2 mg PO -KT 12/09/19 12/09/19 History Insulin Glargine,Hum.rec.anlog 50 unit SQ HS 12/09/19 12/09/19 History [Lantus Solostar] Magnesium Oxide [Mag-Ox] 400 mg PO DAILY 12/09/19 12/09/19 History Sennosides/Docusate Sodium [Senna 1 cap PO DAILY 12/09/19 12/09/19 History Plus 8.6-50 mg Softgel] hydrOXYzine HCL [Atarax] 25 mg PO Q6H 12/09/19 12/09/19 History oxyCODONE-APAP 7.5-325MG [Percocet 1 tab PO Q6H PRN 12/09/19 12/09/19 History 7.5-325 mg] predniSONE [Deltasone] 20 mg PO DAILY 12/09/19 12/09/19 History Allergies Allergy/AdvReac Type Severity Reaction Status Date / Time acetaminophen [From Tylenol] AdvReac kidney/liver Verified 12/09/19 19:09 issues prednisone AdvReac Extreme Verified 12/09/19 16:30 aggression with high doses Physical Exam Vitals: Vital Signs Temp Pulse Pulse Resp BP Pulse Ox 12/11/19 13:30 98.7 F 12/11/19 11:30 101.3 F H 12/11/19 07:00 97.4 F L 99 18 125/66 97 12/11/19 01:25 98.5 F 96 16 114/62 97 12/10/19 23:38 18 12/10/19 19:37 18 12/10/19 16:44 100.1 F H 12/10/19 15:18 100.3 F H Intake and Output 12/11/19 12/11/19 12/11/19 06:59 14:59 22:59 Intake Total 300 Output Total 450 Balance -150 Intake: Oral 300 Output: Urine 450 Other: Voiding Method Indwelling Catheter Indwelling Catheter # Voids 2 GENERAL DESCRIPTION: An elderly male lying in bed, no distress. No tachypnea or accessory muscle of respiration use. HEENT: Shows Pallor , no scleral icterus. Oral mucous membrane is dry. No pharyngeal erythema or thrush NECK: Trachea central, no thyromegaly. LUNGS: Unlabored breathing. Decreased breath sounds at the base. No wheeze or crackle. HEART: S1, S2, regular rate and rhythm. No loud murmur ABDOMEN: Soft, no tenderness , guarding or rigidity, no organomegaly EXTREMITIES: No edema of feet. SKIN: No rash, no masses palpable. NEUROLOGICAL: The patient is sleepy lethargic orientation could not be determined. Results CBC & Chem 7: 12/09/19 16:24 12/09/19 16:24 Labs: Abnormal Lab Results - Last 24 Hours (Table) 12/10/19 12/10/19 12/11/19 Range/Units 15:27 15:27 06:13 ESR 97 H (0-15) mm/hr C-Reactive Protein 209.7 H (<10.0) mg/L Total Protein (PEP) 4.8 L (6.2-8.2) g/dL Procalcitonin 3.00 H (0.02-0.09) ng/mL Microbiology - Last 24 Hours (Table) 12/09/19 17:38 Blood Culture Gram Stain - Preliminary Blood Blood Culture - Preliminary Alpha Hemolytic Streptococcus 12/09/19 17:38 Blood Culture - Final Blood Assessment and Plan Assessment: 1- patient with sepsis in this patient who did have a fever of 102F, tachycardia, elevated white count of 19,000 with evidence of gram-positive bacteremia This patient workup so far including a chest x-ray negative urine is negative patient abdominal soft with clinical examination and no evidence of encephalitis or swelling was noticed with concern for possible discitis or deep infection (1) Gram-positive bacteremia Current Visit: Yes Status: Acute Code(s): R78.81 - BACTEREMIA SNOMED Code(s): 642830802374 (2) Sepsis Current Visit: Yes Status: Acute Code(s): A41.9 - SEPSIS, UNSPECIFIED O RGANISM SNOMED Code(s): 88661855 Plan: 1- blood cultures will be repeated to document clearance of bacteremia 2- discontinue vancomycin 3- start the patient cefazolin 2 g every 8 hours 4- with MRI of the spine The patient family insisted on transfer to [facility], RN to communicate the family wishes to his admitting physician at the bedside other questions concerned were answered in Layman terms We will follow on clinical condition and cultures to further adjust medication if needed Thank you for this consultation will follow this patient with you Time with Patient: Greater than 30
[2019-12-12 07:05] LABS: Glucose,Whole Blood 78 mg/dL (75-99)
[2019-12-12] MEDS: METOPROLOL TARTRATE 25 MG TAB PO SCH ×2 (07:21→20:53)
[2019-12-12] MEDS: predniSONE 20 MG TAB PO SCH (07:21)
[2019-12-12] MEDS: MAGNESIUM OXIDE 400 MG TAB PO SCH (07:21)
[2019-12-12] MEDS: PANTOPRAZOLE 40 MG TABLET PO SCH (07:21)
[2019-12-12] MEDS: GLIMEPIRIDE 2 MG TAB PO SCH (07:21)
[2019-12-12] MEDS: APIXABAN 5 MG TAB PO SCH ×2 (07:22→20:53)
[2019-12-12] MEDS: ASPIRIN 81 MG PO SCH (07:22)
[2019-12-12] MEDS: FAMOTIDINE 20 MG TAB PO SCH ×2 (07:22→20:52)
[2019-12-12] MEDS: PREGABALIN 75 MG CAP PO SCH ×2 (07:22→20:53)
[2019-12-12] MEDS: HYDROmorphone 0.5 MG/0.5 ML SYRINGE IVP PRN ×3 (07:24→20:53)
[2019-12-12] MEDS: SYMBICORT 80-4.5 MCG INHALER INHALATION SCH ×2 (07:47→19:31)
[2019-12-12 11:26] LABS: Glucose,Whole Blood 45 mg/dL (75-99)
[2019-12-12 11:41] LABS: Glucose,Whole Blood 47 mg/dL (75-99)
[2019-12-12] MEDS ORDERED: DEXTROSE 50% SYRINGE 50 ML IVP ONE (11:41)
[2019-12-12] MEDS ORDERED: DEXTROSE 50% SYRINGE 50 ML IVP STA (11:42)
[2019-12-12] MEDS: SODIUM CHLORIDE 0.9% 1,000 ML IV SCH ×2 (11:45→23:15)
[2019-12-12 11:51] LABS: African American GFR (CKD) 65 (>60 ml/min/1.73 sqM); Anion Gap 6 mmol/L; Blood Urea Nitrogen 29 mg/dL (9-20); Calcium 7.4 mg/dL (8.4-10.2); Carbon Dioxide 27 mmol/L (22-30); Chloride 112 mmol/L (98-107); Glucose 52 mg/dL (74-99); Non-African American GFR(CKD) 56 (>60 ml/min/1.73 sqM); Potassium 4.1 mmol/L (3.5-5.1); Sodium 145 mmol/L (137-145)
[2019-12-12 11:54] LABS: Anisocytosis Slight; Basophils % (A) 0 %; Eosinophils % (A) 0 %; Hypochromasia Marked; Lymphocytes # (A) 0.4 k/uL (1.0-4.8); Lymphocytes % (A) 3 %; MCH 29.4 pg (25.0-35.0); MCHC 30.3 g/dL (31.0-37.0); MCV 96.9 fL (80.0-100.0); Macrocytosis Slight; Mean Platelet Volume 9.1; Monocytes # (A) 0.4 k/uL (0-1.0); Monocytes % (A) 3 %; Neutrophils # (A) 12.2 k/uL (1.3-7.7); Neutrophils % (A) 93 %; Platelet Count 169 k/uL (150-450); RBC 2.68 m/uL (4.30-5.90); RDW 17.3 % (11.5-15.5); WBC 13.1 k/uL (3.8-10.6)
[2019-12-12 11:57] LABS: Glucose,Whole Blood 95 mg/dL (75-99)
[2019-12-12 11:57] LABS: HGB 7.9 gm/dL (13.0-17.5)
--- NOTE | 2019-12-12 12:06 | P.PN ---
Subjective 69-year-old pleasant male well known to me from from his previous aspiration patient had a prolonged hospitalization for fevers patient will was workup was worked up for sepsis which was negative and subsequently diagnosed with mixed connective tissue disorder in [facility]. Patient at the nursing facility got agitated daily years because of which patient was sent in here patient is comparing of severe pain patient does have chronic back pain issues patient is on multiple medications that can cause delirium and confusion including the oxycodone and baclofen and gabapentin teen. Patient was evaluated by neurology for altered mental status and the patient is being started on Lyrica instead of gabapentin teen patient did receive Dilaudid unfortunately we don't have many choices. It's documented as patient is ALLERGIC to Tylenol but the that doesn't appear to be real ALLERGY and patient appeared to have some side effects from Tylenol. Patient to presently is being started on Tylenol to avoid opiates considering his delirium and agitation episodes. Ativan will be discontinued as well will use Seroquel and Haldol as needed for agitation. And the patient will also be started on Toradol with close monitoring of kidney f unction. He did have a low-grade fever which is a significant decrease in acuity disorder and there is no evidence of infection at this time. Patient had a CT of the brain which did not show any significant abnormality. 12/11/2019 Patient still has episodes of agitation. Patient is found to have bacteremia with alpha hemolytic streptococci although source is unknown at this time. Patient is undergoing a repeat MRI of the cervical spine infectious disease evaluated the patient. 12/12/2019 patient's overall confusion improved patient did receive Seroquel because of agitation still has agitation but much improved compared to admission. MRI didn't show discitis but these findings were present during his previous hospital physician too and was evaluated byback surgeon at that time. We will discuss with infectious disease regarding this. Review of systems: Unable to obtain due to his clinical condition All inpatient medications were reviewed and appropriate changes in these medicat ions as dictated in the interval history and assessment and plan. Objective - Vital Signs Vital signs: Vital Signs Temp 97.3 F L 12/12/19 07:00 Pulse 94 12/12/19 07:00 Resp 16 12/12/19 07:20 BP 120/70 12/12/19 07:00 Pulse Ox 95 12/12/19 10:32 Intake & Output 12/11/19 12/12/19 12/12/19 18:59 06:59 18:59 Intake Total 540 Output Total 350 1525 Balance 190 -1525 Intake: Oral 540 Output: Urine 350 1525 Other: Voiding Method Indwelling Catheter Indwelling Catheter Indwelling Catheter - Exam patient his is drowsy and sleepy GENERAL: The patient is alert and fused agitated, not in any acute distress. Well developed, well nourished. HEENT: Pupils are round and equally reacting to light. EOMI. No scleral icterus. No conjunctival pallor. Normocephalic, atraumatic. No pharyngeal erythema. No thyromegaly. CARDIOVASCULAR: S1 and S2 present. No murmurs, rubs, or gallops. PULMONARY: Unable to assess ABDOMEN: Soft, nontender, nondistended, normoactive bowel sounds. No palpable organomegaly. MUSCULOSKELETAL: No joint swelling or deformity. EXTREMITIES: No cyanosis, clubbing, or pedal edema. NEUROLOGICAL: Unable to assess patient is drowsy and sleepy SKIN: No rashes. - Labs CBC & Chem 7: 12/12/19 11:03 12/09/19 16:24 Labs: Abnormal Lab Results - Last 24 Hours (Table) 12/11/19 12/11/19 12/11/19 Range/Units 20:45 21:04 21:16 WBC (3.8-10.6) k/uL RBC (4.30-5.90) m/uL Hgb (13.0-17.5) gm/dL Hct (39.0-53.0) % MCHC (31.0-37.0) g/dL RDW (11.5-15.5) % Neutrophils # (1.3-7.7) k/uL Lymphocytes # (1.0-4.8) k/uL POC Glucose (mg/dL) 33 L 37 L 38 L (75-99) mg/dL 12/11/19 12/11/19 12/12/19 Range/Units 21:33 21:59 11:03 WBC 13.1 H (3.8-10.6) k/uL RBC 2.68 L (4.30-5.90) m/uL Hgb 7.9 L D (13.0-17.5) gm/dL Hct 26.0 L (39.0-53.0) % MCHC 30.3 L (31.0-37.0) g/dL RDW 17.3 H (11.5-15.5) % Neutrophils # 12.2 H (1.3-7.7) k/uL Lymphocytes # 0.4 L (1.0-4.8) k/uL POC Glucose (mg/dL) 49 L 74 L (75-99) mg/dL 12/12/19 12/12/19 Range/Units 11:24 11:40 WBC (3.8-10.6) k/uL RBC (4.30-5.90) m/uL Hgb (13.0-17.5) gm/dL Hct (39.0-53.0) % MCHC (31.0-37.0) g/dL RDW (11.5-15.5) % Neutrophils # (1.3-7.7) k/uL Lymphocytes # (1.0-4.8) k/uL POC Glucose (mg/dL) 45 L 47 L (75-99) mg/dL Microbiology - Last 24 Hours (Table) 12/09/19 17:38 Blood Culture Gram Stain - Preliminary Blood Blood Culture - Preliminary Alpha Hemolytic Streptococcus 12/11/19 06:30 Blood Culture - Preliminary Blood No Growth after 24 hours Assessment and Plan Plan: Severe sepsis secondary to streptococcal bacteremia, patient will continue on ceftezole and will repeat the blood cultures infectious disease evaluate the patient patient is being evaluated again for discitis with an MRI of the cervical spine which was ordered by neurology.we'll discuss with infectious disease regarding this. Repeat blood cultures so far negative -Altered mental status secondary to toxic encephalopathy from multiple medications all the narcotic takes including benzodiazepines, opiates and anticollagen medications will be discontinued and the patient will be started on Toradol and Tylenol for pain. Gabapentin is being discontinued and patient is being started on Lyrica. Sepsis may be contributing to his altered status as well patient appears to have toxic encephalopathy. patient's agitation episodes and confusional episodes of better -Fever with leukocytosis secondary to excessive acute issue patient was e xtensively evaluated during his past admissions for these symptoms and no evidence of infection was appreciated. -Chronic back and neck pain -Recent the right upper extremity DVT for which patient is on Eliquis which will be continued Of coronary artery disease -Congestive heart failure chronic diastolic dysfunction presently not in acute exacerbation patient will be closely monitored for heart failure patient is presently getting IV fluids Type 2 diabetes mellitus insulin-dependent continue with her present regimen -Obstructive sleep apnea next and-obesity -COPD without any acute exacerbation -History of nonsustained VT in the past -Gastroesophageal reflux disease -Hyperlipidemia -Lactic is doses secondary to intravascular depletion for which patient is receiving IV fluids at this time which will be continued Lasix will be held temporarily
[2019-12-12] MEDS: KETOROLAC 15 MG/ML 1 ML VIAL IVP PRN (16:27)
[2019-12-12] MEDS: BACLOFEN 10 MG TAB PO PRN (16:27)
--- NOTE | 2019-12-12 16:34 | PN ---
PROGRESS NOTE DATE OF SERVICE: 12/12/2019 REASON FOR FOLLOWUP: Enterococcus bacteremia, possible source is the diskitis, lumbar. INTERVAL HISTORY: The patient is currently afebrile. The patient is more awake and alert. He mentions he is feeling better. Breathing comfortably. Denies having any chest pain, cough. No nausea, vomiting. No abdominal pain or any worsening pain to the low back. No diarrhea. PHYSICAL EXAMINATION: Blood pressure 120/72 with a pulse of 94. Temperature is 97.3. He is 95% on 4 L nasal cannula. General description is an elderly male lying in bed in no distress. Respiratory system: Unlabored breathing, clear to auscultation anteriorly. Heart S1, S2. Regular rate and rhythm. Abdomen soft, no tenderness. LABS: White count down to 13.1, BUN of 29, creatinine 1.28. Blood culture repeat is so far negative. DIAGNOSTIC IMPRESSION AND PLAN: Patient with streptococcus bacteremia with concern for possible diskitis. Blood culture repeat has been negative so far. Patient is covered with cefazolin. Opinion should be obtained from the Spine surgery. Consult has been placed per discussion with the admitting physician and we will monitor clinical course closely. MMODL / IJN: [id number] /
[2019-12-12 16:45] LABS: Glucose,Whole Blood 113 mg/dL (75-99)
--- NOTE | 2019-12-12 18:07 | P.CNOR ---
History of Present Illness - HPI Consult date: 12/12/19 Consult reason: low back pain History of present illness: 69-year-old male with a long history of low back pain as well as neck pain. Presents with continued low back pain and neck pain as well as Sirs and sepsis with confusion. The patient is unable to provide a reliable history, and so most of the history is taken from the who is present with him. She states that he has been dealing with some low back pain for some time now and previously was in the hospital and was consult with Dr. Grier. They were attempting to treat him conservatively due to his symptoms. At the time. He has been doing okay since then. She states however over the past week or so, he has been getting worse. He can still ambulate but he is having a lot of low back pain. He does not have any neck pain currently. She states no fevers at home that she knows of. She states that she just wants his back fixed. The patient is neurovascularly intact with no bowel or bladder incontinence, no perineal numbness. Review of Systems 14 points review of systems completed and as stated in HPI or otherwise negative. Past Medical History Past Medical History: Coronary Artery Disease (CAD), Chest Pain / Angina, Heart Failure, COPD, Deep Vein Thrombosis (DVT), GERD/Reflux, Hyperlipidemia, Hypertension, Osteoarthritis (OA), Pneumonia, Prostate Disorder, Respiratory Disorder, Sleep Apnea/CPAP/BIPAP Additional Past Medical History / Comment(s): Pt recently admitted to [facility] on 11/03/19 with fever/cervical and back pain, sepsis unknown source/urinary retention with IDC. Other hx: Spouse states pt has been febrile/neck pain since August 2019 with admits to [facility] and [facility], had picc line at [facility] with DVT R arm/sepsis d/t bilateral lower leg cellulitis, venous insufficiency/lower leg edema, spondylolsis, cervical and low back pain, DDD, chronic respiratory failure, CALLI with Cpap/O2 at 4L/NC at , nonsustained vtach, TIAs, small vessel disease, IDDM type II, BPH, diverticular disease, colon polyps-benign, sinus problems, seasonal allergies History of Any Multi-Drug Resistant Organisms: None Reported Past Surgical History: Back Surgery, Heart Catheterization With Stent, Joint Replacement, Orthopedic Surgery Additional Past Surgical History / Comment(s): Bilateral knee arthroscopies, total L knee arthroplasty, R total shoulder arthroplasty, L hand injury with repair, low back surgery, PCI with 3 stents, colonoscopies/polypectomies, lumbar epidural injections, bilateral cataract removals/lens implants. Past Anesthesia/Blood Transfusion Reactions: No Reported Reaction Additional Past Anesthesia/Blood Transfusion Reaction / Comm: STATES "HAD A HARD TIME WITH BREATHING POST OP" Date of Last Stent Placement:: 2009 Past Psychological History: No Psychological Hx Reported Additional Psychological History / Comment(s): Pt currently at [facility]. He states he in bed or staff gets him up into wheelchair. He has an IDC. Pt served in the [employer]. Smoking Status: Former smoker Past Alcohol Use History: None Reported Additional Past Alcohol Use History / Comment(s): QUIT SMOKING IN 2009, STARTED 1962, SMOKED 2 PPD Past Drug Use History: None Reported - Past Family History Father Family Medical History: CVA/TIA, Hyperlipidemia, Hypertension Mother Family Medical History: Hypertension Medications and Allergies Home Medications Medication Instructions Recorded Confirmed Type Nitroglycerin Sl Tabs [Nitrostat] 0.4 mg SL Q5M PRN 03/09/14 12/09/19 History Atorvastatin [Lipitor] 80 mg PO HS 05/08/15 12/09/19 History Fluticasone/Vilanterol [Breo 1 puff INHALATION RT-HS 03/12/18 12/09/19 History Ellipta 100-25 Mcg Inhaler] Potassium Chloride ER [K-Dur 20] 20 meq PO BID #0 03/15/18 12/09/19 Rx Ipratropium-Albuterol Nebulize 3 ml INHALATION RT-QID PRN 09/02/19 12/09/19 History [Duoneb 0.5 mg-3 mg/3 ml Soln] Metoprolol Tartrate 25 mg PO BID 09/02/19 12/09/19 History Pramipexole Di-HCl [Mirapex] 1 mg PO HS 09/02/19 12/09/19 History Apixaban [Eliquis] 5 mg PO Q12H 11/01/19 12/09/19 History Ketoconazole [Ketoconazole 2% 1 applic TOPICAL Q72H 11/01/19 12/09/19 History Shampoo] QUEtiapine [SEROquel] 25 mg PO HS tab 11/17/19 12/09/19 Rx Omeprazole 20 mg PO AC-BRKFST 11/23/19 12/09/19 History Tamsulosin [Flomax] 0.4 mg PO HS 11/23/19 12/09/19 History Aspirin EC [Ecotrin Low Dose] 81 mg PO DAILY 12/09/19 12/09/19 History Baclofen 10 mg PO Q8H 12/09/19 12/09/19 History Furosemide [Lasix] 20 mg PO BID 12/09/19 12/09/19 History Glimepiride [Amaryl] 2 mg PO AC-BRKFST 12/09/19 12/09/19 History Insulin Glargine,Hum.rec.anlog 50 unit SQ HS 12/09/19 12/09/19 History [Lantus Solostar] Magnesium Oxide [Mag-Ox] 400 mg PO DAILY 12/09/19 12/09/19 History Sennosides/Docusate Sodium [Senna 1 cap PO DAILY 12/09/19 12/09/19 History Plus 8.6-50 mg Softgel] hydrOXYzine HCL [Atarax] 25 mg PO Q6H 12/09/19 12/09/19 History oxyCODONE-APAP 7.5-325MG [Percocet 1 tab PO Q6H PRN 12/09/19 12/09/19 History 7.5-325 mg] predniSONE [Deltasone] 20 mg PO DAILY 12/09/19 12/09/19 History Allergies Allergy/AdvReac Type Severity Reaction Status Date / Time acetaminophen [From Tylenol] AdvReac kidney/liver Verified 12/09/19 19:09 issues prednisone AdvReac Extreme Verified 12/09/19 16:30 aggression with high doses Physical Examination Osteopathic Statement: *. No significant issues noted on an osteopathic structural exam other than those noted in the History and Physical/Consult. PHYSICAL EXAMINATION: Vitals: See below General: Awake, alert, appropriate for age, in no acute distress. While patient answers questions. He is very confused repeats things constantly and does not exactly know what he is saying. HEENT: No unusual neck masses around region of lateral neck triangle, thyroid, supraclavicular groove. Extremities: Skin warm and dry without no acute lesions, coloration, temperature, skin intact, no tenderness or erythema. Integument: Hairy patches: Absent Dorsal skin dimples: Absent Cafe au lait spots: Absent Surgical incisions: [Non-] Palpation: Please see Pain drawing on Intake sheet for further detail. (Tenderness = T, Nontender = NT, Swelling = S, Ecchymosis = E) Findings on Midline and paraspinal palpation and percussion: Cervical: NT Thoracic: NT Lumbar: Mild tenderness paraspinally Sacral: NT Special findings: [Non-] No pain with range of motion of hips, shoulders VASCULAR STATUS : LEFT RIGHT Wrist Pulses Intact Intact Pedal Pulses (Dors. pedis and post.tibialis) Intact Intact Color Normal Normal Edema Absent Absent NEUROLOGIC EXAMINATION: Mental Status: Awake and alert, fully oriented, with normal attention, concentration and memory, and fluent, appropriate speech. Cranial Nerves: I: Olfactory not tested. II: Visual acuity normal, no visual field deficit noted with confrontation. III,IV: Normal pupillary reflexes & intact extraocular movements without nystagmus. V,: Intact symmetrical facial sensation. VII: Intact symmetrical facial motor movement VIII: Hearing intact. IX,X: swallow, & normal voice. XI: Sternocleidomastoid, trapezius function intact. XII: Tongue midline with normal movements. L'hermitte's Sign: [Negative / absent] Spurling'Sign: [Absent bilaterally] Cubital percussion test: [Absent bilaterally] Kassidy-Tinel sign - Carpal region: [Absent bilaterally] Straight Leg Raising: [Absent bilaterally] Motor Exam (0-5/5, N/T) STRENGTH R L Shoulder Abd (Not part of MOLLY Motor score) [5] [5] Elbow Flexors [5] [5] Elbow Extensor [5] [5] Wrist Dorsiflexors [5] [5] Finger Abductor [5] [5] Community Action Worker [5] [5] Hip Flexor (Not part of MOLLY Motor score) [5] [5] Knee Flexor [5] [5] Knee Extensor [5] [5] Ankle dorsiflexor [5] [5] Ankle plantarflexion [5] [5] Extensor hallucis [5] [5] MOLLY Motor score [50]/50 [50]/50 REFLEXES (0-4/2, NT) R L Upper Extremities [2] [2] Lower Extremities [2] [2] Pathological Reflexes R L Neal's [absent] [absent] Clonus [absent] [absent] Negative Babinski Bilaterally Muscle appearance: Symmetric and normal appearing bulk, contour and tone. Rectal Tone: [] Sensory system (0-4, N/T) Test type RU DAWOOD RL LL Joint-Position [2] [2] [2] [2] Vibration [2] [2] [2] [2] Pain & LT sense [2] [2] [2] [2] Dermatomal Deficit: [] Gait and Functional Evaluation: Ambulatory aids: [Normally ambulates independently, however, states that he has been needing more help with ambulation recently] Romberg's test: Intact bilaterally. Hand and finger dexterity intact bilaterally[]. Disdiadochokinesis examination negative[] bilaterally. Abnormal Lab Results 12/11/19 12/11/19 12/11/19 20:45 21:04 21:16 WBC RBC Hgb Hct MCV MCH MCHC RDW Plt Count Neutrophils % Lymphocytes % Monocytes % Eosinophils % Basophils % Neutrophils # Lymphocytes # Monocytes # Eosinophils # Basophils # Hypochromasia Anisocytosis Macrocytosis Sodium Potassium Chloride Carbon Dioxide Anion Gap BUN Creatinine Est GFR (CKD-EPI)AfAm Est GFR (CKD-EPI)NonAf Glucose POC Glucose (mg/dL) 33 L 37 L 38 L POC Glu Manager Science Rickie Paulino Michael Repinski, Michael Calcium 12/11/19 12/11/19 12/12/19 21:33 21:59 07:00 WBC RBC Hgb Hct MCV MCH MCHC RDW Plt Count Neutrophils % Lymphocytes % Monocytes % Eosinophils % Basophils % Neutrophils # Lymphocytes # Monocytes # Eosinophils # Basophils # Hypochromasia Anisocytosis Macrocytosis Sodium Potassium Chloride Carbon Dioxide Anion Gap BUN Creatinine Est GFR (CKD-EPI)AfAm Est GFR (CKD-EPI)NonAf Glucose POC Glucose (mg/dL) 49 L 74 L 78 POC Glu Manager Science Rickie Paulino Michael Davis, Sharay Calcium 12/12/19 12/12/19 12/12/19 11:03 11:03 11:24 WBC 13.1 H RBC 2.68 L Hgb 7.9 L D Hct 26.0 L MCV 96.9 MCH 29.4 MCHC 30.3 L RDW 17.3 H Plt Count 169 Neutrophils % 93 Lymphocytes % 3 Monocytes % 3 Eosinophils % 0 Basophils % 0 Neutrophils # 12.2 H Lymphocytes # 0.4 L Monocytes # 0.4 Eosinophils # 0.0 Basophils # 0.0 Hypochromasia Marked Anisocytosis Slight Macrocytosis Slight Sodium 145 Potassium 4.1 Chloride 112 H Carbon Dioxide 27 Anion Gap 6 BUN 29 H Creatinine 1.28 H Est GFR (CKD-EPI)AfAm 65 Est GFR (CKD-EPI)NonAf 56 Glucose 52 L POC Glucose (mg/dL) 45 L POC Glu Manager Science ID Tonya Espinoza Calcium 7.4 L 12/12/19 12/12/19 12/12/19 11:40 11:56 16:44 WBC RBC Hgb Hct MCV MCH MCHC RDW Plt Count Neutrophils % Lymphocytes % Monocytes % Eosinophils % Basophils % Neutrophils # Lymphocytes # Monocytes # Eosinophils # Basophils # Hypochromasia Anisocytosis Macrocytosis Sodium Potassium Chloride Carbon Dioxide Anion Gap BUN Creatinine Est GFR (CKD-EPI)AfAm Est GFR (CKD-EPI)NonAf Glucose POC Glucose (mg/dL) 47 L 95 113 H POC Glu Manager Science ID Tonya Espinoza, Tonya Early Calcium Vital Signs - 24 hr 12/11/19 12/12/19 12/12/19 19:32 00:00 03:58 Temperature 98.1 F 98.1 F Pulse Rate [ 85 Left Supine Pulse Oximetery ] Pulse Rate [ Left] Respiratory 17 18 17 Rate Blood Pressure 91/52 102/55 [Right Arm Supine] O2 Sat by Pulse 99 99 Oximetry 12/12/19 12/12/19 12/12/19 07:00 07:20 10:32 Temperature 97.3 F L Pulse Rate [ Left Supine Pulse Oximetery ] Pulse Rate [ 94 Left] Respiratory 16 16 Rate Blood Pressure 120/70 [Right Arm Supine] O2 Sat by Pulse 95 95 Oximetry 12/12/19 15:00 Temperature 98.6 F Pulse Rate [ Left Supine Pulse Oximetery ] Pulse Rate [ 77 Left] Respiratory 18 Rate Blood Pressure 149/79 [Right Arm Supine] O2 Sat by Pulse 98 Oximetry Results IMAGING: I have reviewed the MRI of his thoracic and lumbar spine. Of the visualized cervical spine. There is severe degenerative/possibly infectious changes within the cervical spine, however, this is hard to elucidate. Due to the table. Exam was done. An MRI of the cervical spine is recommended and will be obtained. The MRI of the lumbar spine is reviewed and shows L4 5 and L5-S1, likely discitis, osteomyelitis. There is no epidural abscess that can be seen in this area. There is enhancement. However, within the disc material that is likely secondary to infectious process. There is no extension of this process and any areas. MRI radiological read-Impression: Infectious process, lower lumbar spine is confirmed with abnormal fluid and enhancement. No well-formed, fluid collection or drainable abscess. Area of discitis/acute osteomyelitis likely present with surrounding inflammatory changes as detailed. - Labs Labs: Abnormal Lab Results - Last 24 Hours (Table) 12/11/19 12/11/19 12/11/19 Range/Units 20:45 21:04 21:16 WBC (3.8-10.6) k/uL RBC (4.30-5.90) m/uL Hgb (13.0-17.5) gm/dL Hct (39.0-53.0) % MCHC (31.0-37.0) g/dL RDW (11.5-15.5) % Neutrophils # (1.3-7.7) k/uL Lymphocytes # (1.0-4.8) k/uL Chloride (98-107) mmol/L BUN (9-20) mg/dL Creatinine (0.66-1.25) mg/dL Glucose (74-99) mg/dL POC Glucose (mg/dL) 33 L 37 L 38 L (75-99) mg/dL Calcium (8.4-10.2) mg/dL 12/11/19 12/11/19 12/12/19 Range/Units 21:33 21:59 11:03 WBC 13.1 H (3.8-10.6) k/uL RBC 2.68 L (4.30-5.90) m/uL Hgb 7.9 L D (13.0-17.5) gm/dL Hct 26.0 L (39.0-53.0) % MCHC 30.3 L (31.0-37.0) g/dL RDW 17.3 H (11.5-15.5) % Neutrophils # 12.2 H (1.3-7.7) k/uL Lymphocytes # 0.4 L (1.0-4.8) k/uL Chloride (98-107) mmol/L BUN (9-20) mg/dL Creatinine (0.66-1.25) mg/dL Glucose (74-99) mg/dL POC Glucose (mg/dL) 49 L 74 L (75-99) mg/dL Calcium (8.4-10.2) mg/dL 12/12/19 12/12/19 12/12/19 Range/Units 11:03 11:24 11:40 WBC (3.8-10.6) k/uL RBC (4.30-5.90) m/uL Hgb (13.0-17.5) gm/dL Hct (39.0-53.0) % MCHC (31.0-37.0) g/dL RDW (11.5-15.5) % Neutrophils # (1.3-7.7) k/uL Lymphocytes # (1.0-4.8) k/uL Chloride 112 H (98-107) mmol/L BUN 29 H (9-20) mg/dL Creatinine 1.28 H (0.66-1.25) mg/dL Glucose 52 L (74-99) mg/dL POC Glucose (mg/dL) 45 L 47 L (75-99) mg/dL Calcium 7.4 L (8.4-10.2) mg/dL 12/12/19 Range/Units 16:44 WBC (3.8-10.6) k/uL RBC (4.30-5.90) m/uL Hgb (13.0-17.5) gm/dL Hct (39.0-53.0) % MCHC (31.0-37.0) g/dL RDW (11.5-15.5) % Neutrophils # (1.3-7.7) k/uL Lymphocytes # (1.0-4.8) k/uL Chloride (98-107) mmol/L BUN (9-20) mg/dL Creatinine (0.66-1.25) mg/dL Glucose (74-99) mg/dL POC Glucose (mg/dL) 113 H (75-99) mg/dL Calcium (8.4-10.2) mg/dL Microbiology - Last 24 Hours (Table) 12/09/19 17:38 Blood Culture Gram Stain - Preliminary Blood Blood Culture - Preliminary Alpha Hemolytic Streptococcus 12/11/19 06:30 Blood Culture - Preliminary Blood No Growth after 24 hours H & H 12/09/19 12/12/19 Range/Units 16:24 11:03 Hgb 9.6 L D 7.9 L D (13.0-17.5) gm/dL Hct 31.1 L 26.0 L (39.0-53.0) % Coagulation 12/09/19 Range/Units 16:24 INR 1.1 (<1.2) Result Diagrams: 12/12/19 11:03 12/12/19 11:03 - Diagnostic results Cervical MRI with contrast: pending CT scan - cervical: pending CT Scan - lumbar: pending Assessment and Plan Assessment: 69-year-old male with history of low back pain, connective tissue disorder, Sirs, confusion with possible osteomyelitis discitis of L4 5 and L5-S1, neurovascularly intact. Plan: 1. Obtain MRI of cervical spine with and without contrast 2. Obtain CT of cervical, thoracic and lumbar spine for finer bony detail evaluation 3. Discussed potential options with the . Due to the fact that the patient has seen Dr. Grier in the past. I will talk with Dr. Grier about this case. 4. Obtain sed rate and CRP for trending purposes 5. Medical management and infectious disease management. Recommend IV a ntibiotics 6. Recommend echocardiogram for evaluation for vegetations 7. Will follow-up after test results Time with Patient: Greater than 30
[2019-12-12] MEDS: QUEtiapine 25 MG TAB PO PRN (18:15)
[2019-12-12 20:41] LABS: Glucose,Whole Blood 122 mg/dL (75-99)
[2019-12-12] MEDS: ATORVASTATIN 80 MG TAB PO SCH (20:52)
[2019-12-12] MEDS: PRAMIPEXOLE 1 MG TAB PO SCH (20:53)
[2019-12-12] MEDS: INSULIN DETEMIR (LEVEMIR) 100 UNIT/ML SYR SQ SCH (20:53)
[2019-12-12] MEDS: LORazepam 2 MG/ML INJ IV PRN (23:15)
[2019-12-13] MEDS ORDERED: DEXTROSE 50% SYRINGE 50 ML IVP STA ×2 (04:14→04:40)
[2019-12-13 04:15] LABS: Glucose,Whole Blood 40 mg/dL (75-99)
[2019-12-13 04:28] LABS: Glucose,Whole Blood 72 mg/dL (75-99)
[2019-12-13 04:40] LABS: Anisocytosis Slight; Basophils % (A) 0 %; Eosinophils # (A) 0.2 k/uL (0-0.7); Eosinophils % (A) 2 %; HCT 25.5 % (39.0-53.0); HGB 7.6 gm/dL (13.0-17.5); Hypochromasia Marked; Lymphocytes # (A) 1.2 k/uL (1.0-4.8); Lymphocytes % (A) 14 %; MCH 29.1 pg (25.0-35.0); MCHC 29.9 g/dL (31.0-37.0); MCV 97.3 fL (80.0-100.0); Macrocytosis Slight; Mean Platelet Volume 8.9; Monocytes # (A) 0.4 k/uL (0-1.0); Monocytes % (A) 4 %; Neutrophils % (A) 79 %; Platelet Count 186 k/uL (150-450); RBC 2.62 m/uL (4.30-5.90); RDW 17.4 % (11.5-15.5); WBC 8.9 k/uL (3.8-10.6)
[2019-12-13 04:47] LABS: Glucose,Whole Blood 66 mg/dL (75-99)
[2019-12-13 05:00] LABS: Glucose,Whole Blood 90 mg/dL (75-99)
[2019-12-13 05:14] LABS: Glucose,Whole Blood 96 mg/dL (75-99)
[2019-12-13 05:26] LABS: African American GFR (CKD) 75 (>60 ml/min/1.73 sqM); Anion Gap 6 mmol/L; Blood Urea Nitrogen 28 mg/dL (9-20); Calcium 7.8 mg/dL (8.4-10.2); Carbon Dioxide 25 mmol/L (22-30); Chloride 115 mmol/L (98-107); Non-African American GFR(CKD) 65 (>60 ml/min/1.73 sqM); Potassium 3.6 mmol/L (3.5-5.1); Sodium 146 mmol/L (137-145)
[2019-12-13 05:28] LABS: Glucose 43 mg/dL (74-99)
[2019-12-13 06:02] LABS: Glucose,Whole Blood 85 mg/dL (75-99)
[2019-12-13] MEDS: DEXTROSE 5%-0.9% NACL 1,000 ML IV SCH ×2 (06:14→18:12)
[2019-12-13 06:58] LABS: Glucose,Whole Blood 99 mg/dL (75-99)
[2019-12-13] MEDS: GLIMEPIRIDE 2 MG TAB PO SCH (07:17)
[2019-12-13] MEDS: LORazepam 2 MG/ML INJ IV PRN (07:49)
[2019-12-13] MEDS: SYMBICORT 80-4.5 MCG INHALER INHALATION SCH ×2 (08:42→19:57)
[2019-12-13] MEDS: ASPIRIN 81 MG PO SCH (08:43)
[2019-12-13] MEDS: FAMOTIDINE 20 MG TAB PO SCH (08:43)
--- NOTE | 2019-12-13 08:43 | P.PN ---
Subjective Progress Note Date: 12/13/19 Principal diagnosis: Low back pain Pt s/e this AM. Still slightly confused but can answer questions. not in room yet. He is sitting up and eating breakfast. States some pain in his back but that he can move his legs. Has not been up yet today. Denies new numbness/tingling. Denies bowel or bladder issues. Objective - Vital Signs Vital signs: Vital Signs Temp 98.2 F 12/13/19 07:00 Pulse 78 12/13/19 07:00 Resp 18 12/13/19 07:00 BP 146/69 12/13/19 07:00 Pulse Ox 99 12/13/19 07:00 Intake & Output 12/12/19 12/13/19 12/13/19 18:59 06:59 18:59 Intake Total 480 1430 Output Total 1000 1300 Balance -520 130 Intake: Intake, IV Titration 950 Amount Sodium Chloride 0.9% 1, 900 000 ml @ 75 mls/hr IV . [id number] [facility] Rx#:[id number] ceFAZolin 2 gm In Sodium 50 Chloride 0.9% 50 ml @ 100 mls/hr IVPB Q8HR [facility] Rx# :[id number] Oral 480 480 Output: Urine 1000 1300 Other: Voiding Method Indwelling Catheter - Exam Gen: AOX1-2 baseline, confused, repeats words back but not necessarily to understand VSS 5/5 RUE, LUE, RLE, LLE all major muscle groups. Some weakness in HF b/l but more due to effort. SILT L2-s1 and C5-T1 Some TTP of lumbar spine but able to roll in bed without issues. +distal pulses all palpable MRI c spine as well as CT CTL spine pending. - Constitutional General appearance: Present: cooperative - Respiratory Respiratory: negative: wheezing - Neurologic Neurologic: Present: CNII-XII intact - Musculoskeletal Musculoskeletal: Present: strength equal bilaterally (MRI of C spine pending) - Labs CBC & Chem 7: 12/13/19 04:05 12/13/19 04:05 Labs: Abnormal Lab Results - Last 24 Hours (Table) 12/12/19 12/12/19 12/12/19 Range/Units 11:03 11:03 11:03 WBC 13.1 H (3.8-10.6) k/uL RBC 2.68 L (4.30-5.90) m/uL Hgb 7.9 L D (13.0-17.5) gm/dL Hct 26.0 L (39.0-53.0) % MCHC 30.3 L (31.0-37.0) g/dL RDW 17.3 H (11.5-15.5) % Neutrophils # 12.2 H (1.3-7.7) k/uL Lymphocytes # 0.4 L (1.0-4.8) k/uL ESR 126 H (0-20) mm/Hr Sodium (137-145) mmol/L Chloride 112 H (98-107) mmol/L BUN 29 H (9-20) mg/dL Creatinine 1.28 H (0.66-1.25) mg/dL Glucose 52 L (74-99) mg/dL POC Glucose (mg/dL) (75-99) mg/dL Calcium 7.4 L (8.4-10.2) mg/dL C-Reactive Protein (0.0-0.8) mg/dL 12/12/19 12/12/19 12/12/19 Range/Units 11:03 11:24 11:40 WBC (3.8-10.6) k/uL RBC (4.30-5.90) m/uL Hgb (13.0-17.5) gm/dL Hct (39.0-53.0) % MCHC (31.0-37.0) g/dL RDW (11.5-15.5) % Neutrophils # (1.3-7.7) k/uL Lymphocytes # (1.0-4.8) k/uL ESR (0-20) mm/Hr Sodium (137-145) mmol/L Chloride (98-107) mmol/L BUN (9-20) mg/dL Creatinine (0.66-1.25) mg/dL Glucose (74-99) mg/dL POC Glucose (mg/dL) 45 L 47 L (75-99) mg/dL Calcium (8.4-10.2) mg/dL C-Reactive Protein 39.5 H (0.0-0.8) mg/dL 12/12/19 12/12/19 12/13/19 Range/Units 16:44 20:39 04:05 WBC (3.8-10.6) k/uL RBC 2.62 L (4.30-5.90) m/uL Hgb 7.6 L (13.0-17.5) gm/dL Hct 25.5 L (39.0-53.0) % MCHC 29.9 L (31.0-37.0) g/dL RDW 17.4 H (11.5-15.5) % Neutrophils # (1.3-7.7) k/uL Lymphocytes # (1.0-4.8) k/uL ESR (0-20) mm/Hr Sodium (137-145) mmol/L Chloride (98-107) mmol/L BUN (9-20) mg/dL Creatinine (0.66-1.25) mg/dL Glucose (74-99) mg/dL POC Glucose (mg/dL) 113 H 122 H (75-99) mg/dL Calcium (8.4-10.2) mg/dL C-Reactive Protein (0.0-0.8) mg/dL 12/13/19 12/13/19 12/13/19 Range/Units 04:05 04:13 04:25 WBC (3.8-10.6) k/uL RBC (4.30-5.90) m/uL Hgb (13.0-17.5) gm/dL Hct (39.0-53.0) % MCHC (31.0-37.0) g/dL RDW (11.5-15.5) % Neutrophils # (1.3-7.7) k/uL Lymphocytes # (1.0-4.8) k/uL ESR (0-20) mm/Hr Sodium 146 H (137-145) mmol/L Chloride 115 H (98-107) mmol/L BUN 28 H (9-20) mg/dL Creatinine (0.66-1.25) mg/dL Glucose 43 L* (74-99) mg/dL POC Glucose (mg/dL) 40 L 72 L (75-99) mg/dL Calcium 7.8 L (8.4-10.2) mg/dL C-Reactive Protein (0.0-0.8) mg/dL 12/13/19 Range/Units 04:39 WBC (3.8-10.6) k/uL RBC (4.30-5.90) m/uL Hgb (13.0-17.5) gm/dL Hct (39.0-53.0) % MCHC (31.0-37.0) g/dL RDW (11.5-15.5) % Neutrophils # (1.3-7.7) k/uL Lymphocytes # (1.0-4.8) k/uL ESR (0-20) mm/Hr Sodium (137-145) mmol/L Chloride (98-107) mmol/L BUN (9-20) mg/dL Creatinine (0.66-1.25) mg/dL Glucose (74-99) mg/dL POC Glucose (mg/dL) 66 L (75-99) mg/dL Calcium (8.4-10.2) mg/dL C-Reactive Protein (0.0-0.8) mg/dL Microbiology - Last 24 Hours (Table) 12/11/19 06:30 Blood Culture - Preliminary Blood No Growth after 48 hours 12/09/19 17:38 Blood Culture Gram Stain - Preliminary Blood Blood Culture - Preliminary Alpha Hemolytic Streptococcus Assessment and Plan Assessment: 69 yo male with possible osteo-discitic of L4-S1 and C5-6 vs inflammatory changes due to long standing spondylosis. NO epidural abscess. No compressive lesions. Connective tissue disorder, unknown. Plan: Case was discussed with Dr. Grier who the patient has seen in the past. There is agreement that medical management of his issues at this time would be warranted due to medical commodities and patient status. Would recommend IVABX, LSO brace and PT/OT for medical management at this time. No surgical int ervention planned currently.
[2019-12-13] MEDS: predniSONE 20 MG TAB PO SCH (08:44)
[2019-12-13] MEDS: PREGABALIN 75 MG CAP PO SCH ×2 (08:44→20:39)
[2019-12-13] MEDS: PANTOPRAZOLE 40 MG TABLET PO SCH (08:44)
[2019-12-13] MEDS: APIXABAN 5 MG TAB PO SCH ×2 (08:44→20:39)
[2019-12-13] MEDS: MAGNESIUM OXIDE 400 MG TAB PO SCH (08:44)
[2019-12-13] MEDS: METOPROLOL TARTRATE 25 MG TAB PO SCH (08:44)
--- NOTE | 2019-12-13 10:22 | P.CNOR ---
History of Present Illness - [facility] Consult date: 12/13/19 Requesting physician: Trae Claudio Consult reason: other History of present illness: the patient is seen and examined at bedside. He is a 69-year-old man is well known to our service. We have been counseled him in regards to his back and lower back and past. He been found have evidence of discitis osteomyelitis and has been treated with conservative treatment and medical management. Today at bedside the is not present the patient is quite confused and is not answering questions appropriately. He is talkative and moving in his bed. He does not locate any specific point pain. I discussed the case with the nurse and reviewed the prior dictations and consultations well. Review of Systems unable to obtain any specific reliable information on review of systems as the is not present. But I was able to review the case the prior consultations in regards to the patient's neck pain and low back pain. He apparently had not been having any new neurologic focal changes. He was having some difficulty with his pain in his neck and his lower back at home. Past Medical History Past Medical History: Coronary Artery Disease (CAD), Chest Pain / Angina, Heart Failure, COPD, Deep Vein Thrombosis (DVT), GERD/Reflux, Hyperlipidemia, Hypertension, Osteoarthritis (OA), Pneumonia, Prostate Disorder, Respiratory Disorder, Sleep Apnea/CPAP/BIPAP Additional Past Medical History / Comment(s): Pt recently admitted to [facility] on 11/03/19 with fever/cervical and back pain, sepsis unknown source/urinary retention with IDC. Other hx: Spouse states pt has been febrile/neck pain since August 2019 with admits to [facility] and [facility], had picc line at [facility] with DVT R arm/sepsis d/t bilateral lower leg cellulitis, venous insufficiency/lower leg edema, spondylolsis, cervical and low back pain, DDD, chronic respiratory failure, CALLI with Cpap/O2 at 4L/NC at , nonsustained vtach, TIAs, small vessel disease, IDDM type II, BPH, diverticular disease, colon polyps-benign, sinus problems, seasonal allergies History of Any Multi-Drug Resistant Organisms: None Reported Past Surgical History: Back Surgery, Heart Catheterization With Stent, Joint Replacement, Orthopedic Surgery Additional Past Surgical History / Comment(s): Bilateral knee arthroscopies, total L knee arthroplasty, R total shoulder arthroplasty, L hand injury with repair, low back surgery, PCI with 3 stents, colonoscopies/polypectomies, lumbar epidural injections, bilateral cataract removals/lens implants. Past Anesthesia/Blood Transfusion Reactions: No Reported Reaction Additional Past Anesthesia/Blood Transfusion Reaction / Comm: STATES "HAD A HARD TIME WITH BREATHING POST OP" Date of Last Stent Placement:: 2009 Past Psychological History: No Psychological Hx Reported Additional Psychological History / Comment(s): Pt currently at [facility]. He states he in bed or staff gets him up into wheelchair. He has an IDC. Pt served in the [employer]. Smoking Status: Former smoker Past Alcohol Use History: None Reported Additional Past Alcohol Use History / Comment(s): QUIT SMOKING IN 2009, STARTED 1962, SMOKED 2 PPD Past Drug Use History: None Reported - Past Family History Father Family Medical History: CVA/TIA, Hyperlipidemia, Hypertension Mother Family Medical History: Hypertension Medications and Allergies Home Medications Medication Instructions Recorded Confirmed Type Nitroglycerin Sl Tabs [Nitrostat] 0.4 mg SL Q5M PRN 03/09/14 12/09/19 History Atorvastatin [Lipitor] 80 mg PO HS 05/08/15 12/09/19 History Fluticasone/Vilanterol [Breo 1 puff INHALATION RT-HS 03/12/18 12/09/19 History Ellipta 100-25 Mcg Inhaler] Potassium Chloride ER [K-Dur 20] 20 meq PO BID #0 03/15/18 12/09/19 Rx Ipratropium-Albuterol Nebulize 3 ml INHALATION RT-QID PRN 09/02/19 12/09/19 History [Duoneb 0.5 mg-3 mg/3 ml Soln] Metoprolol Tartrate 25 mg PO BID 09/02/19 12/09/19 History Pramipexole Di-HCl [Mirapex] 1 mg PO HS 09/02/19 12/09/19 History Apixaban [Eliquis] 5 mg PO Q12H 11/01/19 12/09/19 History Ketoconazole [Ketoconazole 2% 1 applic TOPICAL Q72H 11/01/19 12/09/19 History Shampoo] QUEtiapine [SEROquel] 25 mg PO HS tab 11/17/19 12/09/19 Rx Omeprazole 20 mg PO AC-BRKFST 11/23/19 12/09/19 History Tamsulosin [Flomax] 0.4 mg PO HS 11/23/19 12/09/19 History Aspirin EC [Ecotrin Low Dose] 81 mg PO DAILY 12/09/19 12/09/19 History Baclofen 10 mg PO Q8H 12/09/19 12/09/19 History Furosemide [Lasix] 20 mg PO BID 12/09/19 12/09/19 History Glimepiride [Amaryl] 2 mg PO AC-BRKFST 12/09/19 12/09/19 History Insulin Glargine,Hum.rec.anlog 50 unit SQ HS 12/09/19 12/09/19 History [Lantus Solostar] Magnesium Oxide [Mag-Ox] 400 mg PO DAILY 12/09/19 12/09/19 History Sennosides/Docusate Sodium [Senna 1 cap PO DAILY 12/09/19 12/09/19 History Plus 8.6-50 mg Softgel] hydrOXYzine HCL [Atarax] 25 mg PO Q6H 12/09/19 12/09/19 History oxyCODONE-APAP 7.5-325MG [Percocet 1 tab PO Q6H PRN 12/09/19 12/09/19 History 7.5-325 mg] predniSONE [Deltasone] 20 mg PO DAILY 12/09/19 12/09/19 History Allergies Allergy/AdvReac Type Severity Reaction Status Date / Time acetaminophen [From Tylenol] AdvReac kidney/liver Verified 12/09/19 19:09 issues prednisone AdvReac Extreme Verified 12/09/19 16:30 aggression with high doses Physical Examination Osteopathic Statement: *. No significant issues noted on an osteopathic structural exam other than those noted in the History and Physical/Consult. - C Spine: dermatomal strength & reflexes bilateral Shoulder strength: flexion: 5/5 (he is moving and turning his head and neck appropriately without evidence of hesitation. He is moving his arms without specific intense but is moving them well without evidence of pain. He is also able to move his knees and hips and ankles and feet without evidence of hesitation. He is lying in b) Results - Labs Labs: Abnormal Lab Results - Last 24 Hours (Table) 12/12/19 12/12/19 12/12/19 Range/Units 11:03 11:03 11:03 WBC 13.1 H (3.8-10.6) k/uL RBC 2.68 L (4.30-5.90) m/uL Hgb 7.9 L D (13.0-17.5) gm/dL Hct 26.0 L (39.0-53.0) % MCHC 30.3 L (31.0-37.0) g/dL RDW 17.3 H (11.5-15.5) % Neutrophils # 12.2 H (1.3-7.7) k/uL Lymphocytes # 0.4 L (1.0-4.8) k/uL ESR 126 H (0-20) mm/Hr Sodium (137-145) mmol/L Chloride 112 H (98-107) mmol/L BUN 29 H (9-20) mg/dL Creatinine 1.28 H (0.66-1.25) mg/dL Glucose 52 L (74-99) mg/dL POC Glucose (mg/dL) (75-99) mg/dL Calcium 7.4 L (8.4-10.2) mg/dL C-Reactive Protein (0.0-0.8) mg/dL 12/12/19 12/12/19 12/12/19 Range/Units 11:03 11:24 11:40 WBC (3.8-10.6) k/uL RBC (4.30-5.90) m/uL Hgb (13.0-17.5) gm/dL Hct (39.0-53.0) % MCHC (31.0-37.0) g/dL RDW (11.5-15.5) % Neutrophils # (1.3-7.7) k/uL Lymphocytes # (1.0-4.8) k/uL ESR (0-20) mm/Hr Sodium (137-145) mmol/L Chloride (98-107) mmol/L BUN (9-20) mg/dL Creatinine (0.66-1.25) mg/dL Glucose (74-99) mg/dL POC Glucose (mg/dL) 45 L 47 L (75-99) mg/dL Calcium (8.4-10.2) mg/dL C-Reactive Protein 39.5 H (0.0-0.8) mg/dL 12/12/19 12/12/19 12/13/19 Range/Units 16:44 20:39 04:05 WBC (3.8-10.6) k/uL RBC 2.62 L (4.30-5.90) m/uL Hgb 7.6 L (13.0-17.5) gm/dL Hct 25.5 L (39.0-53.0) % MCHC 29.9 L (31.0-37.0) g/dL RDW 17.4 H (11.5-15.5) % Neutrophils # (1.3-7.7) k/uL Lymphocytes # (1.0-4.8) k/uL ESR (0-20) mm/Hr Sodium (137-145) mmol/L Chloride (98-107) mmol/L BUN (9-20) mg/dL Creatinine (0.66-1.25) mg/dL Glucose (74-99) mg/dL POC Glucose (mg/dL) 113 H 122 H (75-99) mg/dL Calcium (8.4-10.2) mg/dL C-Reactive Protein (0.0-0.8) mg/dL 12/13/19 12/13/19 12/13/19 Range/Units 04:05 04:13 04:25 WBC (3.8-10.6) k/uL RBC (4.30-5.90) m/uL Hgb (13.0-17.5) gm/dL Hct (39.0-53.0) % MCHC (31.0-37.0) g/dL RDW (11.5-15.5) % Neutrophils # (1.3-7.7) k/uL Lymphocytes # (1.0-4.8) k/uL ESR (0-20) mm/Hr Sodium 146 H (137-145) mmol/L Chloride 115 H (98-107) mmol/L BUN 28 H (9-20) mg/dL Creatinine (0.66-1.25) mg/dL Glucose 43 L* (74-99) mg/dL POC Glucose (mg/dL) 40 L 72 L (75-99) mg/dL Calcium 7.8 L (8.4-10.2) mg/dL C-Reactive Protein (0.0-0.8) mg/dL 12/13/19 Range/Units 04:39 WBC (3.8-10.6) k/uL RBC (4.30-5.90) m/uL Hgb (13.0-17.5) gm/dL Hct (39.0-53.0) % MCHC (31.0-37.0) g/dL RDW (11.5-15.5) % Neutrophils # (1.3-7.7) k/uL Lymphocytes # (1.0-4.8) k/uL ESR (0-20) mm/Hr Sodium (137-145) mmol/L Chloride (98-107) mmol/L BUN (9-20) mg/dL Creatinine (0.66-1.25) mg/dL Glucose (74-99) mg/dL POC Glucose (mg/dL) 66 L (75-99) mg/dL Calcium (8.4-10.2) mg/dL C-Reactive Protein (0.0-0.8) mg/dL Microbiology - Last 24 Hours (Table) 12/11/19 06:30 Blood Culture - Preliminary Blood No Growth after 48 hours 12/09/19 17:38 Blood Culture Gram Stain - Preliminary Blood Blood Culture - Preliminary Alpha Hemolytic Streptococcus H & H 12/09/19 12/12/19 12/13/19 Range/Units 16:24 11:03 04:05 Hgb 9.6 L D 7.9 L D 7.6 L (13.0-17.5) gm/dL Hct 31.1 L 26.0 L 25.5 L (39.0-53.0) % Coagulation 12/09/19 Range/Units 16:24 INR 1.1 (<1.2) Result Diagrams: 12/13/19 04:05 12/13/19 04:05 - Diagnostic results Cervical MRI with contrast: report reviewed (I was able to review the cervical and lumbar MRIs. There is some change within the disc and the vertebral bodies that may indicate subcuticular chronic infectious process. There is no evidence of specific epidural abscess causing significant stenosis. I do not see any focal fluid collection at th), image reviewed Lumbar MRI with contrast: report reviewed, image reviewed Assessment and Plan Assessment: confusion Likely osteo-and chronic discitis with osteomyelitis without specific epidural abscess at cervical spine and lumbar spine No new focal neurologic deficit in his upper or lower extremities multiple medical comorbidities Plan: confusion Likely osteo-and chronic discitis with osteomyelitis without specific epidural abscess at cervical spine and lumbar spine No new focal neurologic deficit in his upper or lower extremities multiple medical comorbidities is difficult to determine the specific source the patient's issues. He certainly needs further medical management in terms of his confusion. This does not seem stems specifically from a spine issue. There are changes or presenting likely subacute or chronic discitis osteomyelitis at cervical spine and lumbar spine. He does not have specific abscess or fluid collection that I would plan on pursuing surgical intervention at this point. He is not having any focal neurologic deficit as extremities. He has been seen by Dr. Goodman burch as well. I think his recommendations are appropriate and he can continue treatment with him as he chooses. For now they're continue with conservative treatment and medical management with continued IV antibiotics.
[2019-12-13] MEDS: HYDROmorphone 0.5 MG/0.5 ML SYRINGE IVP PRN ×4 (10:34→21:09)
--- NOTE | 2019-12-13 11:23 | CT ---
EXAMINATION TYPE: CT CervThorLumbar spine wo con DATE OF EXAM: 12/13/2019 COMPARISON: MR 12/11/2019 HISTORY: Back pain, infection, epidural abscess CT DLP: 3149.70 mGycm Automated exposure control for dose reduction was used. Automated exposure control for dose reduction . FINDINGS: Lack of intravenous contrast could compromise sensitivity. Low signal focus within the spinal canal extending from the region of the right facet causing some lo greta mass effect on the posterior lateral thecal sac shows intermediate density on CT and may be relat ed to ligamentum flavum. There is no evident significant spinal stenosis. Endplates are regular at L4-5 and L5-S1 similar to that seen on MRI. There is associated loss of disc height. Some posterior extension of endplate disc complex is noted at L4-5, lateral extension of end plate disc complex results in foraminal encroachment at L4-5, L5-S1. There are associated facet arthr opathy changes present. L3-4, L2-3, L1-2 shows posterior extension endplate disc complex causing mild anterior mass effect on the thecal sac. Slight spinal curvature noted in the thoracic lumbar spine. Multilevel thoracic spondylosis is presen t. No evident spinal stenosis within the thoracic spine. There are interstitial changes present within the lungs. Some dependent atelectasis or possibly pleur al thickening is noted. There are extensive coronary artery calcifications present. Cervical spine shows some degenerative disc change. There is reversal the normal cervical lordosis. C 4-5, C5-6, C6-7 and C7-T1 shows loss of disc height, is multilevel foraminal encroachment. Anterolist hesis grade 1 C4-5, retrolisthesis grade 1 C5-6 noted. There is motion on the exam. IMPRESSION: FINDINGS DESCRIBED IN THE LUMBAR SPINE. DEGENERATIVE DISC DISEASE, FACET ARTHROPATHY, MULTILEVEL F ORAMINAL ENCROACHMENT. NONCONTRAST EXAM. Coronary artery disease and additional findings described ab ove, interstitial lung disease.
[2019-12-13 12:59] LABS: Glucose,Whole Blood 46 mg/dL (75-99)
--- NOTE | 2019-12-13 13:02 | MR ---
EXAMINATION TYPE: MR cervical spine wo/w con DATE OF EXAM: 12/13/2019 COMPARISON: 11/05/2019 HISTORY: Infection epidural abscess CONTRAST: Performed utilizing 9.5 mL intravenous Gadavist gadolinium contrast. TECHNIQUE: Multiplanar multiecho imaging on a 3.0 Alix magnet is performed through the cervical spin e. FINDINGS: The craniovertebral junction is normal. Vertebral body alignment has a kyphosis centered a t C5. Mild grade 1 spondylolisthesis of C4 anteriorly on C5 may be present. Anterior vertebral body spurring is noted at C5. C7-T1: Some asymmetric disc bulging into the left paracentral region is present. Cord contact is not identified. No spinal canal stenosis present.. C6-7: Broad-based disc bulge has anterior thecal sac flattening. No AP spinal canal stenosis present. No cord contact evident.. C5-6: Central focal bulge appears to be present at this level with moderate anterior thecal sac compr ession. Cord contact and some cord compression may be present. AP spinal canal stenosis. Present. Sarika ral foramen are patent. There appears to be some artifact in the right paracentral region at C5-6. No suspicious cord compression is identified in the sagittal plane. C4-5: Mild endplate changes at the anterior thecal sac flattening. This comes in close proximation of the spinal cord. No spinal canal stenosis present. Moderate bilateral foraminal stenosis appears to be present. C3-4: No focal disc herniation or significant disc bulge is evident. No spinal canal stenosis present . Mild foraminal narrowing is present greater on the upright. C2-3: No focal disc herniation or significant disc bulge is evident. No spinal canal stenosis or sarika ral foraminal stenosis is present. Suspicious collection with enhancement to confirm epidural abscess is not identified. There is motion artifact present on this examination which causes some limitation. IMPRESSIONS: 1. Suspicious changes to suggest epidural abscess or osteomyelitis are not identified. 2. Cervical kyphosis centered at C5 C6. 3. Minimal grade 1 spondylolisthesis of C4 anteriorly on C5. 4. Central focal disc bulge C5-6 with cord contact and some cord compression. No stenosis. 5. Moderate bilateral foraminal narrowing C4-5 due to uncovertebral joint hypertrophy. 6. C4-5 disc bulging and endplate changes with mild anterior thecal sac flattening in close approxim ation with the cord without deformity or stenosis
[2019-12-13] MEDS ORDERED: QUEtiapine 50 MG TAB PO PRN (13:38)
[2019-12-13 13:40] LABS: Glucose,Whole Blood 63 mg/dL (75-99)
--- NOTE | 2019-12-13 14:22 | P.CN ---
Psychiatric Consult - . Consult date: 12/13/19 Consult:: 12/13/19 14:18 Publications Designer reviewed EMR and notes regarding patient's care as far in the hospital. Psychiatry has been consulted for agitation. Patient is a 69-year-old male with limited medical history however came into the hospital for acute agitation and was given IM ketamine and had apparently questionable medication changes recently. claimed as per ER report that patient had recently been diagnosed at [facility] with mixed connective tissue disorder and started on prednisone. Patient had a negative CT of his head on admission white blood cell count was elevated and UDS was negative. Patient has apparently been having behavioral issues and has been agitated and restless according to nurse taking care of patient. She also claimed that patient recently received allotted and Ativan for sedation prior to his echocardiogram and his imaging studies that were to be done today. Publications Designer spoke with nurse prior to going in to see the patient however patient was completely sedated and undergoing echocardiogram at the bedside. We will return tomorrow for complete evaluation. At this time given history and patient's behavior, it is likely that patient has some form of delirium with agitation. Will start 25 mg Seroquel daily at bedtime scheduled +25 mg twice a day when necessary for agitation. Please avoid/limit benzodiazepines, opiates and other RN TRANSFER sedatives as this can be contributing to patient's delirium and aggression. Attempt to frequently reorient patient and limit the use of restraints if possible. Continue with treatment of underlying medical comorbidities. Please contact psychiatry with any questions.
--- NOTE | 2019-12-13 14:22 | P.PN ---
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 Patient at the nursing facility got agitated daily years because of which patient was sent in here patient is comparing of severe pain patient does have chronic back pain issues patient is on multiple medications that can cause delirium and confusion including the oxycodone and baclofen and gabapentin teen. Patient was evaluated by neurology for altered mental status and the patient is being started on Lyrica instead of gabapentin teen patient did receive Dilaudid unfortunately we don't have many choices. It's documented as patient is ALLERGIC to Tylenol but the that doesn't appear to be real ALLERGY and patient appeared to have some side effects from Tylenol. Patient to presently is being started on Tylenol to avoid opiates considering his delirium and agitation episodes. Ativan will be discontinued as well will use Seroquel and Haldol as needed for agitation. And the patient will also be started on Toradol with close monitoring of kidney f unction. He did have a low-grade fever which is a significant decrease in acuity disorder and there is no evidence of infection at this time. Patient had a CT of the brain which did not show any significant abnormality. 12/11/2019 Patient still has episodes of agitation. Patient is found to have bacteremia with alpha hemolytic streptococci although source is unknown at this time. Patient is undergoing a repeat MRI of the cervical spine infectious disease evaluated the patient. 12/12/2019 patient's overall confusion improved patient did receive Seroquel because of agitation still has agitation but much improved compared to admission. MRI didn't show discitis but these findings were present during his previous hospital physician too and was evaluated byback surgeon at that time. We will discuss with infectious disease regarding this. 12/13 2019 Patient is still having some agitational episodes. Patient is still on baclofen and Dilaudid. Unfortunately I'm unable to take him of these medications. These medications may be Related to his symptoms AND psychiatrically for any further recommendations regarding his psychosis agitation. Spinal surgeon did evaluate the patient, a repeat MRIs and computed tomography scan of the head and neck were obtained but they're not requiring any further intervention except for continuation of antibiotics. Repeat cultures are negative for strep bacteremia Review of systems: Unable to obtain due to his clinical condition All inpatient medications were reviewed and appropriate changes in these medications as dictated in the interval history and assessment and plan. Objective - Vital Signs Vital signs: Vital Signs Temp 98.2 F 12/13/19 07:00 Pulse 78 12/13/19 07:00 Resp 18 12/13/19 07:00 BP 146/69 12/13/19 07:00 Pulse Ox 99 12/13/19 07:00 Intake & Output 12/12/19 12/13/19 12/13/19 18:59 06:59 18:59 Intake Total 480 1430 Output Total 1000 1300 Balance -520 130 Intake: Intake, IV Titration 950 Amount Sodium Chloride 0.9% 1, 900 000 ml @ 75 mls/hr IV . [id number] [facility] Rx#:[id number] ceFAZolin 2 gm In Sodium 50 Chloride 0.9% 50 ml @ 100 mls/hr IVPB Q8HR [facility] Rx# :[id number] Oral 480 480 Output: Urine 1000 1300 Other: Voiding Method Indwelling Catheter Indwelling Catheter - Exam patient his is drowsy and sleepy GENERAL: The patient is alert and fused agitated, not in any acute distress. Wel l developed, well nourished. HEENT: Pupils are round and equally reacting to light. EOMI. No scleral icterus. No conjunctival pallor. Normocephalic, atraumatic. No pharyngeal erythema. No thyromegaly. CARDIOVASCULAR: S1 and S2 present. No murmurs, rubs, or gallops. PULMONARY: Unable to assess ABDOMEN: Soft, nontender, nondistended, normoactive bowel sounds. No palpable organomegaly. MUSCULOSKELETAL: No joint swelling or deformity. EXTREMITIES: No cyanosis, clubbing, or pedal edema. NEUROLOGICAL: Unable to assess patient is drowsy and sleepy SKIN: No rashes. - Labs CBC & Chem 7: 12/13/19 04:05 12/13/19 04:05 Labs: Abnormal Lab Results - Last 24 Hours (Table) 12/12/19 12/12/19 12/12/19 Range/Units 11:03 11:03 16:44 RBC (4.30-5.90) m/uL Hgb (13.0-17.5) gm/dL Hct (39.0-53.0) % MCHC (31.0-37.0) g/dL RDW (11.5-15.5) % ESR 126 H (0-20) mm/Hr Sodium (137-145) mmol/L Chloride (98-107) mmol/L BUN (9-20) mg/dL Glucose (74-99) mg/dL POC Glucose (mg/dL) 113 H (75-99) mg/dL Calcium (8.4-10.2) mg/dL C-Reactive Protein 39.5 H (0.0-0.8) mg/dL 12/12/19 12/13/19 12/13/19 Range/Units 20:39 04:05 04:05 RBC 2.62 L (4.30-5.90) m/uL Hgb 7.6 L (13.0-17.5) gm/dL Hct 25.5 L (39.0-53.0) % MCHC 29.9 L (31.0-37.0) g/dL RDW 17.4 H (11.5-15.5) % ESR (0-20) mm/Hr Sodium 146 H (137-145) mmol/L Chloride 115 H (98-107) mmol/L BUN 28 H (9-20) mg/dL Glucose 43 L* (74-99) mg/dL POC Glucose (mg/dL) 122 H (75-99) mg/dL Calcium 7.8 L (8.4-10.2) mg/dL C-Reactive Protein (0.0-0.8) mg/dL 12/13/19 12/13/19 12/13/19 Range/Units 04:13 04:25 04:39 RBC (4.30-5.90) m/uL Hgb (13.0-17.5) gm/dL Hct (39.0-53.0) % MCHC (31.0-37.0) g/dL RDW (11.5-15.5) % ESR (0-20) mm/Hr Sodium (137-145) mmol/L Chloride (98-107) mmol/L BUN (9-20) mg/dL Glucose (74-99) mg/dL POC Glucose (mg/dL) 40 L 72 L 66 L (75-99) mg/dL Calcium (8.4-10.2) mg/dL C-Reactive Protein (0.0-0.8) mg/dL 12/13/19 12/13/19 Range/Units 12:58 13:28 RBC (4.30-5.90) m/uL Hgb (13.0-17.5) gm/dL Hct (39.0-53.0) % MCHC (31.0-37.0) g/dL RDW (11.5-15.5) % ESR (0-20) mm/Hr Sodium (137-145) mmol/L Chloride (98-107) mmol/L BUN (9-20) mg/dL Glucose (74-99) mg/dL POC Glucose (mg/dL) 46 L 63 L (75-99) mg/dL Calcium (8.4-10.2) mg/dL C-Reactive Protein (0.0-0.8) mg/dL Microbiology - Last 24 Hours (Table) 12/11/19 06:30 Blood Culture - Preliminary Blood No Growth after 48 hours 12/09/19 17:38 Blood Culture Gram Stain - Preliminary Blood Blood Culture - Preliminary Alpha Hemolytic Streptococcus Assessment and Plan Plan: Severe sepsis secondary to streptococcal bacteremia, patient will continue on ceftezolin and repeat the blood cultures I'm negative. H and has discitis with an MRI of the cervical spine which was ordered by neurology.we'll discuss with infectious disease , spinal surgery evaluated the patient for this no further surgical intervention at this time as per the recommendation -Altered mental status secondary to toxic encephalopathy from multiple medications all the narcotic takes including benzodiazepines, opiates and anticholinergic medications will be discontinued and the patient will be started on Toradol and Tylenol for pain. Gabapentin is being discontinued and patient is being started on Lyrica. Sepsis may be contributing to his altered status as well patient appears to have toxic encephalopathy. patient is on Seroquel for agitation but still having agitation episodes. Unfortunately echo still unable to get him off Haldol and Dilaudid. -Fever with leukocytosis secondary to excessive acute issue patient was extensively evaluated during his past admissions for these symptoms and no evidence of infection was appreciated. -Chronic back and neck pain -Recent the right upper extremity DVT for which patient is on Eliquis which will be continued Of coronary artery disease -Congestive heart failure chronic diastolic dysfunction presently not in acute exacerbation patient will be closely monitored for heart failure patient is presently getting IV fluids Type 2 diabetes mellitus insulin-patient is hypoglycemic will discontinue Levemir and glimepiride -Obstructive sleep apnea next and-obesity -COPD without any acute exacerbation -History of nonsustained VT in the past -Gastroesophageal reflux disease -Hyperlipidemia -Lactic is doses secondary to intravascular depletion for which patient is receiving IV fluids at this time which will be continued Lasix will be held temp orarily
[2019-12-13 14:37] LABS: Glucose,Whole Blood 64 mg/dL (75-99)
[2019-12-13 14:56] LABS: Glucose,Whole Blood 68 mg/dL (75-99)
--- NOTE | 2019-12-13 15:10 | P.CRDCN ---
History of Present Illness History of present illness: HISTORY OF PRESENTING ILLNESS This is a pleasant 69-year-old male past medical history significant for coronary artery disease status post PCI of the RCA in 2009, hypertension, COPD, dyslipidemia, obstructive sleep apnea, diabetes mellitus and former nicotine dependence. He follows in the office with Dr. Frazier. We have been asked to see in consultation for ventricular tachycardia. Telemetry tracings indicate a 6 beat run of nonsustained wide-complex monomorphic tachycardia this morning as well as a 91 and a 22 beat run. He is currently being treated for sepsis secondary to Streptococcus Bladen anemia. Infectious disease is following closely. He is seen and examined resting comfortably laying flat sleeping in bed. His is at the bedside. The patient is waking up or communicating with me. The patient is states that he has been extremely confused, agitated and paranoid. She believes he was up most of the night. His respirations are equal and unlabored. He was sleeping throughout these episodes this morning. According to the nurse he was asymptomatic. His way states he has had a very complicated previous few months. He has been in and out of the hospital here as well as [facility] secondary to frequent episodes of sepsis, back pain and altered mental status. He has been recently diagnosed with mixed connective tissue disorder. He also was found to have an upper extremity DVT thought to be secondary to PICC line. He is supposed to have cervical spine surgery however given his recent hospitalizations this has been postponed. He underwent a cardiac catheterization most recently in 2015 at that time the stent to the RCA was patent he had mild disease of the LAD and intermediate disease noted in the circumflex artery. FFR was nonischemic. He had a stress Lexiscan stress test in the office September 2018 was negative for reversibility. Most recent echocardiogram obtained in July 2019 revealed preserved LV systolic function. He is currently maintained on IV antibiotics. There is been some concern in question regarding discitis or epidural abscess. He underwent a cervical spine MRI yesterday revealing suspicious changes to suggest epidural abscess or osteomyelitis are NOT identified. DIAGNOSTICS EKG reveals sinus tachycardia with PVCs. Chest xray negative for any acute cardiopulmonary process. Laboratory reviewed, WBC 8.9 down from 19 on admission, hemoglobin 7.6 down from 9.6 on admission, platelets 186, sodium 146, potassium 3.6, creatinine 1.15, pro-calcitonin 3 and magnesium 1.8. Current cardiac medications include lopressor 25 mg BID, lasix 20 mg BID, atorvastatin 80 mg daily, aspirin 81 mg daily and eliquis 5 BID. REVIEW OF SYSTEMS At the time of my exam: Unable to obtain accurate review of systems secondary to altered mental status PHYSICAL EXAMINATION Blood pressure 146/69 heart rate 78 afebrile and maintaining oxygen saturation on nasal cannula. CONSTITUTIONAL: No apparent distress. HEENT: Head is normocephalic. Pupils are equal, round. Sclerae anicteric. Mucous membranes of the mouth are moist. No JVD. No carotid bruit. CHEST EXAMINATION: Scattered rhonchi. No chest wall tenderness is noted on palpation or with deep breathing. HEART EXAMINATION: Regular rate and rhythm. S1, S2 heard. No murmurs, gallops or rub. ABDOMEN: Soft, nontender. Positive bowel sounds. EXTREMITIES: 2+ peripheral pulses, no lower extremity edema and no calf tenderness. ASSESSMENT Sepsis secondary to Streptococcus bacteremia Altered mental status Nonsustained monomorphic ventricular tachycardia, monomorphic Hypoglycemia Hypertension Diabetes mellitus PLAN Obtain 2D echocardiogram and doppler study to assess cardiac structure and function. Increase lopressor to 50 mg BID. Ongoing medical management. Thank you kindly for this consultation. Nurse Practitioner note has been reviewed, I agree with a documented findings and plan of care. Patient was seen and examined. Past Medical History Past Medical History: Coronary Artery Disease (CAD), Chest Pain / Angina, Heart Failure, COPD, Deep Vein Thrombosis (DVT), GERD/Reflux, Hyperlipidemia, Hypertension, Osteoarthritis (OA), Pneumonia, Prostate Disorder, Respiratory Disorder, Sleep Apnea/CPAP/BIPAP Additional Past Medical History / Comment(s): Pt recently admitted to [facility] on 11/03/19 with fever/cervical and back pain, sepsis unknown source/urinary retenti on with IDC. Other hx: Spouse states pt has been febrile/neck pain since August [address] [facility] and [facility], had picc line at [facility] with DVT R arm/sepsis d/t bilateral lower leg cellulitis, venous insufficiency/lower leg edema, spondylolsis, cervical and low back pain, DDD, chronic respiratory failure, CALLI with Cpap/O2 at 4L/NC at , nonsustained vtach, TIAs, small vessel disease, IDDM type II, BPH, diverticular disease, colon polyps-benign, sinus problems, seasonal allergies History of Any Multi-Drug Resistant Organisms: None Reported Past Surgical History: Back Surgery, Heart Catheterization With Stent, Joint Replacement, Orthopedic Surgery Additional Past Surgical History / Comment(s): Bilateral knee arthroscopies, total L knee arthroplasty, R total shoulder arthroplasty, L hand injury with repair, low back surgery, PCI with 3 stents, colonoscopies/polypectomies, lumbar epidural injections, bilateral cataract removals/lens implants. Past Anesthesia/Blood Transfusion Reactions: No Reported Reaction Additional Past Anesthesia/Blood Transfusion Reaction / Comment(s): STATES "HAD A HARD TIME WITH BREATHING POST OP" Date of Last Stent Placement:: 2009 Past Psychological History: No Psychological Hx Reported Additional Psychological History / Comment(s): Pt currently at [facility]. He states he in bed or staff gets him up into wheelchair. He has an IDC. Pt served in the [employer]. Smoking Status: Former smoker Past Alcohol Use History: None Reported Additional Past Alcohol Use History / Comment(s): QUIT SMOKING IN 2009, STARTED 1962, SMOKED 2 PPD Past Drug Use History: None Reported - Past Family History Father Family Medical History: CVA/TIA, Hyperlipidemia, Hypertension Mother Family Medical History: Hypertension Medications and Allergies Home Medications Medication Instructions Recorded Confirmed Type Nitroglycerin Sl Tabs [Nitrostat] 0.4 mg SL Q5M PRN 03/09/14 12/09/19 History Atorvastatin [Lipitor] 80 mg PO HS 05/08/15 12/09/19 History Fluticasone/Vilanterol [Breo 1 puff INHALATION RT-HS 03/12/18 12/09/19 History Ellipta 100-25 Mcg Inhaler] Potassium Chloride ER [K-Dur 20] 20 meq PO BID #0 03/15/18 12/09/19 Rx Ipratropium-Albuterol Nebulize 3 ml INHALATION RT-QID PRN 09/02/19 12/09/19 History [Duoneb 0.5 mg-3 mg/3 ml Soln] Metoprolol Tartrate 25 mg PO BID 09/02/19 12/09/19 History Pramipexole Di-HCl [Mirapex] 1 mg PO HS 09/02/19 12/09/19 History Apixaban [Eliquis] 5 mg PO Q12H 11/01/19 12/09/19 History Ketoconazole [Ketoconazole 2% 1 applic TOPICAL Q72H 11/01/19 12/09/19 History Shampoo] QUEtiapine [SEROquel] 25 mg PO HS tab 11/17/19 12/09/19 Rx Omeprazole 20 mg PO AC-BRKFST 11/23/19 12/09/19 History Tamsulosin [Flomax] 0.4 mg PO HS 11/23/19 12/09/19 History Aspirin EC [Ecotrin Low Dose] 81 mg PO DAILY 12/09/19 12/09/19 History Baclofen 10 mg PO Q8H 12/09/19 12/09/19 History Furosemide [Lasix] 20 mg PO BID 12/09/19 12/09/19 History Glimepiride [Amaryl] 2 mg PO AC-BRKFST 12/09/19 12/09/19 History Insulin Glargine,Hum.rec.anlog 50 unit SQ HS 12/09/19 12/09/19 History [Lantus Solostar] Magnesium Oxide [Mag-Ox] 400 mg PO DAILY 12/09/19 12/09/19 History Sennosides/Docusate Sodium [Senna 1 cap PO DAILY 12/09/19 12/09/19 History Plus 8.6-50 mg Softgel] hydrOXYzine HCL [Atarax] 25 mg PO Q6H 12/09/19 12/09/19 History oxyCODONE-APAP 7.5-325MG [Percocet 1 tab PO Q6H PRN 12/09/19 12/09/19 History 7.5-325 mg] predniSONE [Deltasone] 20 mg PO DAILY 12/09/19 12/09/19 History Allergies Allergy/AdvReac Type Severity Reaction Status Date / Time acetaminophen [From Tylenol] AdvReac kidney/liver Verified 12/09/19 19:09 issues prednisone AdvReac Extreme Verified 12/09/19 16:30 aggression with high doses Physical Exam Vitals: Vital Signs Temp Pulse Resp BP Pulse Ox 12/13/19 07:00 98.2 F 78 18 146/69 99 12/13/19 04:46 97.5 F L 80 20 143/79 99 12/13/19 03:00 18 12/13/19 02:37 97.9 F 69 20 125/67 100 12/12/19 23:35 18 12/12/19 19:38 98.0 F 117 H 19 132/61 95 12/12/19 18:50 19 12/12/19 15:00 98.6 F 77 18 149/79 98 Intake and Output 12/12/19 12/13/19 12/13/19 22:59 06:59 14:59 Intake Total 1430 Output Total 600 700 Balance -600 730 Intake: Intake, IV Titration 950 Amount Sodium Chloride 0.9% 1, 900 000 ml @ 75 mls/hr IV . [id number] [facility] Rx#:[id number] ceFAZolin 2 gm In Sodium 50 Chloride 0.9% 50 ml @ 100 mls/hr IVPB Q8HR [facility] Rx# :[id number] Oral 480 Output: Urine 600 700 Other: Voiding Method Indwelling Catheter Indwelling Catheter Results 12/13/19 04:05 12/13/19 04:05 CBC 12/13/19 Range/Units 04:05 WBC 8.9 (3.8-10.6) k/uL RBC 2.62 L (4.30-5.90) m/uL Hgb 7.6 L (13.0-17.5) gm/dL Hct 25.5 L (39.0-53.0) % Plt Count 186 (150-450) k/uL Comprehensive Metabolic Panel 12/12/19 12/13/19 Range/Units 11:03 04:05 Sodium 145 146 H (137-145) mmol/L Potassium 4.1 3.6 (3.5-5.1) mmol/L Chloride 112 H 115 H (98-107) mmol/L Carbon Dioxide 27 25 (22-30) mmol/L BUN 29 H 28 H (9-20) mg/dL Creatinine 1.28 H 1.15 (0.66-1.25) mg/dL Glucose 52 L 43 L* (74-99) mg/dL Calcium 7.4 L 7.8 L (8.4-10.2) mg/dL Current Medications Generic Name Dose Route Start Last Admin Trade Name Freq PRN Reason Stop Dose Admin Acetaminophen 650 mg 12/11/19 13:41 Acetaminophen Tab 325 Mg Tab PO Q6HR PRN Fever and/ or mild Pain Albuterol/Ipratropium 3 ml 12/10/19 12:58 Ipratropium-Albuterol 3 Ml Neb INHALATION RT-QID PRN Shortness Of Breath Apixaban 5 mg 12/10/19 13:00 12/13/19 08:44 Apixaban 5 Mg Tab PO 5 mg Q12HR JOSE Administration Aspirin 81 mg 12/11/19 09:00 12/13/19 08:43 Aspirin 81 Mg PO 81 mg DAILY JOSE Administration Atorvastatin Calcium 80 mg 12/10/19 21:00 12/12/19 20:52 Atorvastatin 80 Mg Tab PO 80 mg HS JOSE Administration Baclofen 5 mg 12/10/19 12:58 12/12/19 16:27 Baclofen 10 Mg Tab PO 5 mg BID PRN Administration Spasms Budesonide/Formoterol Fumarate 2 puff 12/10/19 20:00 12/13/19 08:42 Symbicort 80-4.5 Mcg Inhaler INHALATION Not Given RT-BID [facility] Glimepiride 2 mg 12/11/19 07:30 12/13/19 07:17 Glimepiride 2 Mg Tab PO Not Given AC-BRKFST [facility] Hydromorphone HCl 1 mg 12/10/19 09:34 12/13/19 10:34 Hydromorphone 0.5 Mg/0.5 Ml Syringe IVP 1 mg Q3HR PRN Administration Moderate Pain Hydromorphone HCl 4 mg 12/10/19 22:54 12/11/19 04:31 Hydromorphone 2 Mg Tab PO 4 mg Q4HR PRN Administration Moderate to Severe Pain Sodium Chloride 1,000 mls @ 75 mls/hr 12/10/19 09:45 12/12/19 23:15 Saline 0.9% IV Not Given .[id number] [facility] Cefazolin Sodium 2 gm/ Sodium 50 mls @ 100 mls/hr 12/11/19 16:00 12/13/19 09:50 Chloride IVPB 100 mls/hr Q8HR JO[facility] Administration Dextrose/Sodium Chloride 1,000 mls @ 75 mls/hr 12/13/19 06:00 12/13/19 06:14 Dextrose 5%-Ns Iv Soln IV 75 mls/hr .[id number] [facility] Administration Insulin Detemir 50 unit 12/10/19 21:00 12/12/19 20:53 Insulin Detemir (Levemir) 100 Unit/Ml Syr SQ Not Given HS [facility] Ketoconazole 1 applic 12/11/19 09:00 12/11/19 08:27 Ketoconazole 2% Shampoo 1 Applic/Ml TOPICAL Not Given Q72H [facility] Ketorolac Tromethamine 15 mg 12/10/19 13:55 12/12/19 16:27 Ketorolac 15 Mg/Ml 1 Ml Vial IVP 12/15/19 13:56 15 mg Q6HR PRN Administration Pain Magnesium Oxide 400 mg 12/11/19 09:00 12/13/19 08:44 Magnesium Oxide 400 Mg Tab PO 400 mg DAILY JOSE Administration Metoprolol Tartrate 50 mg 12/13/19 21:00 Metoprolol Tartrate 50 Mg Tab PO BID [facility] Naloxone HCl 0.2 mg 12/09/19 18:12 Naloxone 0.4 Mg/Ml 1 Ml Vial IV Q2M PRN Opioid Reversal Nitroglycerin 0.4 mg 12/10/19 12:58 Nitroglycerin Sl Tabs 0.4 Mg Tab SUBLINGUAL Q5M PRN Chest Pain Pantoprazole Sodium 40 mg 12/11/19 07:30 12/13/19 08:44 Pantoprazole 40 Mg Tablet PO 40 mg AC-BRKFST [facility] Administration Pramipexole Dihydrochloride 1 mg 12/10/19 21:00 12/12/19 20:53 Pramipexole 1 Mg Tab PO 1 mg HS JOSE Administration Prednisone 20 mg 12/11/19 09:00 12/13/19 08:44 Prednisone 20 Mg Tab PO 20 mg DAILY JOSE Administration Pregabalin 75 mg 12/10/19 15:10 12/13/19 08:44 Pregabalin 75 Mg Cap PO 75 mg BID JOSE Administration Quetiapine Fumarate 25 mg 12/10/19 12:58 12/12/19 18:15 Quetiapine 25 Mg Tab PO 25 mg HS PRN Administration Agitation Tamsulosin HCl 0.4 mg 12/10/19 21:00 12/11/19 21:01 Tamsulosin 0.4 Mg Cap.Er.24h PO 0.4 mg HS JOSE Administration Intake and Output 12/12/19 12/13/19 12/13/19 22:59 06:59 14:59 Intake Total 1430 Output Total 600 700 Balance -600 730 Intake: Intake, IV Titration 950 Amount Sodium Chloride 0.9% 1, 900 000 ml @ 75 mls/hr IV . [id number] [facility] Rx#:[id number] ceFAZolin 2 gm In Sodium 50 Chloride 0.9% 50 ml @ 100 mls/hr IVPB Q8HR [facility] Rx# :[id number] Oral 480 Output: Urine 600 700 Other: Voiding Method Indwelling Catheter Indwelling Catheter 12/13/19 04:05 12/13/19 04:05
[2019-12-13] MEDS: SODIUM CHLORIDE 0.9% 1,000 ML IV SCH (15:14)
--- NOTE | 2019-12-13 15:28 | P.PN ---
Subjective Progress Note Date: 12/13/19 Patient was seen for a follow-up. Patient appears to be severely encephalopathic, delirious, mumbling, hallucinating. Not able to provide any history. He does admit that the back pain has improved. Patient underwent MRI of the thoracic and lumbar spine with and without contrast on 12/11/2019. MRI of the thoracic spine showed no obvious suspicious edema or enhancement to suggest discitis/acute osteomyelitis in the thoracic spine. MRI of the lumbar spine showed infectious process lower lumbar spinous informed with abnormal fluid and enhancement. No well-formed fluid collection or drainable abscess. Anurag of discitisacute osteomyelitis likely present with the surrounding inflammatory change. Objective - Vital Signs Vital signs: Vital Signs Temp 98.2 F 12/13/19 07:00 Pulse 78 12/13/19 07:00 Resp 18 12/13/19 07:00 BP 146/69 12/13/19 07:00 Pulse Ox 99 12/13/19 07:00 Intake & Output 12/12/19 12/13/19 12/13/19 18:59 06:59 18:59 Intake Total 480 1430 Output Total 1000 1300 Balance -520 130 Intake: Intake, IV Titration 950 Amount Sodium Chloride 0.9% 1, 900 000 ml @ 75 mls/hr IV . [id number] JOSE Rx#:[id number] ceFAZolin 2 gm In Sodium 50 Chloride 0.9% 50 ml @ 100 mls/hr IVPB Q8HR JOSE Rx# :[id number] Oral 480 480 Output: Urine 1000 1300 Other: Voiding Method Indwelling Catheter Indwelling Catheter - Exam As above in detail. Patient not as tender to leg movement as last exam. - Labs CBC & Chem 7: 12/13/19 04:05 12/13/19 04:05 Labs: Abnormal Lab Results - Last 24 Hours (Table) 12/12/19 12/12/19 12/12/19 Range/Units 11:03 11:03 11:03 WBC 13.1 H (3.8-10.6) k/uL RBC 2.68 L (4.30-5.90) m/uL Hgb 7.9 L D (13.0-17.5) gm/dL Hct 26.0 L (39.0-53.0) % MCHC 30.3 L (31.0-37.0) g/dL RDW 17.3 H (11.5-15.5) % Neutrophils # 12.2 H (1.3-7.7) k/uL Lymphocytes # 0.4 L (1.0-4.8) k/uL ESR 126 H (0-20) mm/Hr Sodium (137-145) mmol/L Chloride 112 H (98-107) mmol/L BUN 29 H (9-20) mg/dL Creatinine 1.28 H (0.66-1.25) mg/dL Glucose 52 L (74-99) mg/dL POC Glucose (mg/dL) (75-99) mg/dL Calcium 7.4 L (8.4-10.2) mg/dL C-Reactive Protein (0.0-0.8) mg/dL 12/12/19 12/12/19 12/12/19 Range/Units 11:03 11:24 11:40 WBC (3.8-10.6) k/uL RBC (4.30-5.90) m/uL Hgb (13.0-17.5) gm/dL Hct (39.0-53.0) % MCHC (31.0-37.0) g/dL RDW (11.5-15.5) % Neutrophils # (1.3-7.7) k/uL Lymphocytes # (1.0-4.8) k/uL ESR (0-20) mm/Hr Sodium (137-145) mmol/L Chloride (98-107) mmol/L BUN (9-20) mg/dL Creatinine (0.66-1.25) mg/dL Glucose (74-99) mg/dL POC Glucose (mg/dL) 45 L 47 L (75-99) mg/dL Calcium (8.4-10.2) mg/dL C-Reactive Protein 39.5 H (0.0-0.8) mg/dL 12/12/19 12/12/19 12/13/19 Range/Units 16:44 20:39 04:05 WBC (3.8-10.6) k/uL RBC 2.62 L (4.30-5.90) m/uL Hgb 7.6 L (13.0-17.5) gm/dL Hct 25.5 L (39.0-53.0) % MCHC 29.9 L (31.0-37.0) g/dL RDW 17.4 H (11.5-15.5) % Neutrophils # (1.3-7.7) k/uL Lymphocytes # (1.0-4.8) k/uL ESR (0-20) mm/Hr Sodium (137-145) mmol/L Chloride (98-107) mmol/L BUN (9-20) mg/dL Creatinine (0.66-1.25) mg/dL Glucose (74-99) mg/dL POC Glucose (mg/dL) 113 H 122 H (75-99) mg/dL Calcium (8.4-10.2) mg/dL C-Reactive Protein (0.0-0.8) mg/dL 12/13/19 12/13/19 12/13/19 Range/Units 04:05 04:13 04:25 WBC (3.8-10.6) k/uL RBC (4.30-5.90) m/uL Hgb (13.0-17.5) gm/dL Hct (39.0-53.0) % MCHC (31.0-37.0) g/dL RDW (11.5-15.5) % Neutrophils # (1.3-7.7) k/uL Lymphocytes # (1.0-4.8) k/uL ESR (0-20) mm/Hr Sodium 146 H (137-145) mmol/L Chloride 115 H (98-107) mmol/L BUN 28 H (9-20) mg/dL Creatinine (0.66-1.25) mg/dL Glucose 43 L* (74-99) mg/dL POC Glucose (mg/dL) 40 L 72 L (75-99) mg/dL Calcium 7.8 L (8.4-10.2) mg/dL C-Reactive Protein (0.0-0.8) mg/dL 12/13/19 Range/Units 04:39 WBC (3.8-10.6) k/uL RBC (4.30-5.90) m/uL Hgb (13.0-17.5) gm/dL Hct (39.0-53.0) % MCHC (31.0-37.0) g/dL RDW (11.5-15.5) % Neutrophils # (1.3-7.7) k/uL Lymphocytes # (1.0-4.8) k/uL ESR (0-20) mm/Hr Sodium (137-145) mmol/L Chloride (98-107) mmol/L BUN (9-20) mg/dL Creatinine (0.66-1.25) mg/dL Glucose (74-99) mg/dL POC Glucose (mg/dL) 66 L (75-99) mg/dL Calcium (8.4-10.2) mg/dL C-Reactive Protein (0.0-0.8) mg/dL Microbiology - Last 24 Hours (Table) 12/11/19 06:30 Blood Culture - Preliminary Blood No Growth after 48 hours 12/09/19 17:38 Blood Culture Gram Stain - Preliminary Blood Blood Culture - Preliminary Alpha Hemolytic Streptococcus Assessment and Plan Assessment: * Altered mental status, due to toxic metabolic encephalopathy. Patient appears delirious. * Discitis/osteomyelitis lower lumbar spine. 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 Possible underlying diabetic neuropathy. * Recurrent back spasms, likely due to discitis osteomyelitis, less likely related to stiff person syndrome. Patient has history of back surgery in the past * Diabetes, not very well controlled, A1c 7.8. * Osteoarthritis Plan: * Patient has been diagnosed with possible osteo-and chronic discitis with ost eomyelitis without specific epidural abscess in the lower lumbar spine. Patient being treated conservatively, not a candidate for surgery as per orthopedic spine. Infectious disease also on board. * Patient has severe toxic metabolic encephalopathy. He is delirious. Psychiatry has seen the patient and started him on Seroquel. * Continue Lyrica 75 mg twice a day. If tolerated, the dose can be increased rapidly to 100 mg 3 times a day, or 150 mg twice a day. * Blood test shows B12 638, folate 8.0, B6 and FAROOQ antibodies still pending. Await immune fixation electrophoresis, SPEP to rule out myeloma. Repeat ESR 126 and CRP 39.5. Blood cultures grew gram-positive cocci in chains, alpha hemolytic streptococci. * MRI of the cervical spine showed no epidural abscess in the cervical spine. Cervical kyphosis centered at C5 6. Minimal grade 1 spondylolisthesis of C4 anteriorly on C5. Central focal disc bulge C5 6 with cord contact and some cord compromise. No stenosis. C4 5 disc bulging and endplate changes with mild anterior thecal sac flattening in the close approximation with the cord without deformity or stenosis. * We will follow.
--- NOTE | 2019-12-13 16:13 | PN ---
PROGRESS NOTE DATE OF SERVICE: 12/13/2019 REASON FOR FOLLOWUP: Streptococcal bacteremia and concern for lumbar diskitis. INTERVAL HISTORY: The patient is currently afebrile. The patient is hemodynamically stable. The patient seemed to be sleepy. No vomiting, diarrhea or any other changes has been reported by the nursing staff. PHYSICAL EXAMINATION: Blood pressure 146/69 with a pulse of 78, temperature 98.2, he is 99% on 2 L nasal cannula. General description is an elderly male, lying in bed in no distress. RESPIRATORY SYSTEM: Unlabored breathing, clear to auscultation anteriorly. HEART: S1, S2. Regular rate and rhythm. ABDOMEN: Soft, no tenderness. LABS: No new labs have been obtained today. Followup blood culture has been negative so far. DIAGNOSTIC IMPRESSION AND PLAN: Patient with Staphylococcus bacteremia with evidence that the source likely lumbar discitis. MRI of the cervical spine has been negative for any osteomyelitis or discitis. The patient is covered with cefazolin 2 g q.8 hours to continue. at the bedside. She has multiple questions, those were answered. In the meantime, continue supportive care. MMODL / IJN: [id number] /
[2019-12-13 16:45] LABS: Glucose,Whole Blood 99 mg/dL (75-99)
[2019-12-13 20:17] LABS: Glucose,Whole Blood 78 mg/dL (75-99)
[2019-12-13] MEDS: METOPROLOL TARTRATE 50 MG TAB PO SCH (20:38)
[2019-12-13] MEDS: ATORVASTATIN 80 MG TAB PO SCH (20:39)
[2019-12-13] MEDS: TAMSULOSIN 0.4 MG CAP.ER.24H PO SCH (20:39)
[2019-12-13] MEDS: PRAMIPEXOLE 1 MG TAB PO SCH (20:39)
[2019-12-13] MEDS ORDERED: QUEtiapine 25 MG TAB PO SCH (21:00)
[2019-12-13] MEDS: QUEtiapine 25 MG TAB PO PRN (23:43)
[2019-12-14] MEDS: HALOPERIDOL LACTATE 5 MG/ML 1 ML VIAL IM PRN ×3 (00:26→20:50)
[2019-12-14 02:15] LABS: Glucose,Whole Blood 58 mg/dL (75-99)
[2019-12-14 02:38] LABS: Glucose,Whole Blood 49 mg/dL (75-99)
[2019-12-14 02:38] LABS: Glucose,Whole Blood 55 mg/dL (75-99)
[2019-12-14 02:56] LABS: Glucose,Whole Blood 61 mg/dL (75-99)
[2019-12-14] MEDS: HYDROmorphone 0.5 MG/0.5 ML SYRINGE IVP PRN ×4 (03:38→23:00)
[2019-12-14 04:32] LABS: Glucose,Whole Blood 98 mg/dL (75-99)
[2019-12-14] MEDS: MAGNESIUM OXIDE 400 MG TAB PO SCH (07:08)
[2019-12-14] MEDS: KETOCONAZOLE 2% SHAMPOO 1 APPLIC/ML TOPICAL SCH (07:08)
[2019-12-14] MEDS: predniSONE 20 MG TAB PO SCH (07:08)
[2019-12-14] MEDS: METOPROLOL TARTRATE 50 MG TAB PO SCH ×2 (07:08→20:50)
[2019-12-14] MEDS: PANTOPRAZOLE 40 MG TABLET PO SCH (07:08)
[2019-12-14] MEDS: APIXABAN 5 MG TAB PO SCH ×2 (07:08→20:50)
[2019-12-14] MEDS: ASPIRIN 81 MG PO SCH (07:08)
[2019-12-14] MEDS: PREGABALIN 75 MG CAP PO SCH ×2 (07:08→20:50)
[2019-12-14 07:25] LABS: Glucose,Whole Blood 63 mg/dL (75-99)
[2019-12-14 07:40] LABS: Glucose,Whole Blood 65 mg/dL (75-99)
[2019-12-14 07:56] LABS: Glucose,Whole Blood 73 mg/dL (75-99)
[2019-12-14] MEDS: DEXTROSE 5%-0.9% NACL 1,000 ML IV SCH ×2 (08:23→21:03)
[2019-12-14] MEDS: SYMBICORT 80-4.5 MCG INHALER INHALATION SCH ×2 (09:12→19:27)
--- NOTE | 2019-12-14 09:30 | ECHOF ---
Referral Reason:VT MEASUREMENTS -------- HEIGHT: 182.9 cm WEIGHT: 96.2 kg BP: 146/69 IVSd: 1.3 cm (0.6 - 1.1) LVIDd: 5.5 cm (3.9 - 5.3) LVPWd: 1.3 cm (0.6 - 1.1) EDV(Teich): 150 ml IVSs: 1.6 cm LVIDs: 3.8 cm LVPWs: 1.8 cm %IVS Thck: 25 % ESV(Teich): 62 ml EF(Teich): 59 % %FS: 31 % SV(Teich): 88 ml LA Diam: 3.5 cm (2.7 - 3.8) RVIDd: 3.3 cm (< 3.3) IVC: 23.04 mm Ao Diam: 3.2 cm (2.0 - 3.7) AV Cusp: 2.0 cm (1.5 - 2.6) EPSS: 1.5 cm MV E Gab: 1.13 m/s MV DecT: 214 ms MV Dec [place]: 5.3 m/s MV A Gab: 0.87 m/s MV E/A Ratio: 1.29 MV PHT: 62 ms AV Vmax: 1.44 m/s AV maxP.32 mmHg TR Vmax: 2.99 m/s TR maxP.84 mmHg RAP: 15.00 mmHg RVSP: 50.84 mmHg MV EF SLOPE: 62.98 mm/s (70 - 150) MV EXCURSION: 9.72 mm (> 18.000) FINDINGS -------- Sinus rhythm. This was a technically difficult study with suboptimal views. The left ventricular size is normal. There is mild concentric left ventricular hypertrophy. Overa ll left ventricular systolic function is normal with, an EF between 55 - 60 %. The right ventricle is mildly enlarged. The left atrial size is normal. The right atrium is normal in size. 5.0mg of Lumason was utilized for enhancement of images Interatrial and interventricular septum intact. There is mild aortic valve sclerosis. Mild mitral regurgitation is present. Mild tricuspid regurgitation present. There is moderate pulmonary hypertension. The right ventric ular systolic pressure, as measured by Doppler, is 50.84mmHg. The pulmonic valve was not well visualized. The aortic root size is normal. The inferior vena cava is dilated with no significant inspiratory collapse which is consistent estima michael right atrial pressure of >15 mmHg. CONCLUSIONS -------- 1. The left ventricular size is normal. 2. There is mild concentric left ventricular hypertrophy. 3. Overall left ventricular systolic function is normal with, an EF between 55 - 60 %. 4. The right ventricle is mildly enlarged. 5. 5.0mg of Lumason was utilized for enhancement of images 6. Interatrial and interventricular septum intact. 7. There is mild aortic valve sclerosis. 8. Mild mitral regurgitation is present. 9. Mild tricuspid regurgitation present. 10. There is moderate pulmonary hypertension. 11. The right ventricular systolic pressure, as measured by Doppler, is 50.84mmHg. 12. The inferior vena cava is dilated with no significant inspiratory collapse which is consistent es timated right atrial pressure of >15 mmHg. STRIP DEBURRER: Tsering Johnson RDCS
[2019-12-14 09:32] LABS: Albumin 2.19 g/dL (3.80-4.90); Gamma Globulin 0.53 g/dL (0.70-1.50)
[2019-12-14 11:25] LABS: Glucose,Whole Blood 210 mg/dL (75-99)
[2019-12-14] MEDS: QUEtiapine 25 MG TAB PO PRN (11:49)
[2019-12-14 12:47] LABS: African American GFR (CKD) >90 (>60 ml/min/1.73 sqM); Anion Gap 8 mmol/L; Blood Urea Nitrogen 20 mg/dL (9-20); Calcium 8.4 mg/dL (8.4-10.2); Carbon Dioxide 24 mmol/L (22-30); Chloride 113 mmol/L (98-107); Glucose 236 mg/dL (74-99); Non-African American GFR(CKD) 87 (>60 ml/min/1.73 sqM); Potassium 4.5 mmol/L (3.5-5.1); Sodium 145 mmol/L (137-145)
--- NOTE | 2019-12-14 13:16 | P.PN ---
Subjective 69-year-old pleasant male well known to me from from his previous aspiration patient had a prolonged hospitalization for fevers patient will was workup was worked up for sepsis which was negative and subsequently diagnosed with mixed connective tissue disorder in [facility]. Patient at the nursing facility got agitated daily years because of which patient was sent in here patient is comparing of severe pain patient does have chronic back pain issues patient is on multiple medications that can cause delirium and confusion including the oxycodone and baclofen and gabapentin teen. Patient was evaluated by neurology for altered mental status and the patient is being started on Lyrica instead of gabapentin teen patient did receive Dilaudid unfortunately we don't have many choices. It's documented as patient is ALLERGIC to Tylenol but the that doesn't appear to be real ALLERGY and patient appeared to have some side effects from Tylenol. Patient to presently is being started on Tylenol to avoid opiates considering his delirium and agitation episodes. Ativan will be discontinued as well will use Seroquel and Haldol as needed for agitation. And the patient will also be started on Toradol with close monitoring of kidney f unction. He did have a low-grade fever which is a significant decrease in acuity disorder and there is no evidence of infection at this time. Patient had a CT of the brain which did not show any significant abnormality. 12/11/2019 Patient still has episodes of agitation. Patient is found to have bacteremia with alpha hemolytic streptococci although source is unknown at this time. Patient is undergoing a repeat MRI of the cervical spine infectious disease evaluated the patient. 12/12/2019 patient's overall confusion improved patient did receive Seroquel because of agitation still has agitation but much improved compared to admission. MRI didn't show discitis but these findings were present during his previous hospital physician too and was evaluated byback surgeon at that time. We will discuss with infectious disease regarding this. 12/13 2019 Patient is still having some agitational episodes. Patient is still on baclofen and Dilaudid. Unfortunately I'm unable to take him of these medications. These medications may be Related to his symptoms AND psychiatrically for any further recommendations regarding his psychosis agitation. Spinal surgeon did evaluate the patient, a repeat MRIs and computed tomography scan of the head and neck were obtained but they're not requiring any further intervention except for continuation of antibiotics. Repeat cultures are negative for strep bacteremia 12/14/2019 Patient is still getting confused patient was a valid by psychiatric and patient was started on the Seroquel twice daily as needed along with nighttime scheduled Seroquel unfortunately patient still remains on Dilaudid dose of which I'm cutting down. Continue with Lyrica. Review of systems: Unable to obtain due to his clinical condition All inpatient medications were reviewed and appropriate changes in these medications as dictated in the interval history and assessment and plan. Objective - Vital Signs Vital signs: Vital Signs Temp 97.5 F L 12/14/19 07:00 Pulse 112 H 12/14/19 07:00 Resp 18 12/13/19 07:00 BP 191/88 12/14/19 07:00 Pulse Ox 96 12/14/19 07:00 Intake & Output 12/13/19 12/14/19 12/14/19 18:59 06:59 18:59 Intake Total 500 Output Total 550 1000 Balance -550 -500 Intake: Oral 500 Output: Urine 550 1000 Other: Voiding Method Indwelling Catheter Indwelling Catheter Indwelling Catheter # Voids 0 # Bowel Movements 1 - Exam GENERAL: The patient is alert and confused but confusion appears to be bit better, not in any acute distress. Well developed, well nourished. HEENT: Pupils are round and equally reacting to light. EOMI. No scleral icterus. No conjunctival pallor. Normocephalic, atraumatic. No pharyngeal erythema. No thyromegaly. CARDIOVASCULAR: S1 and S2 present. No murmurs, rubs, or gallops. PULMONARY: Unable to assess ABDOMEN: Soft, nontender, nondistended, normoactive bowel sounds. No palpable organomegaly. MUSCULOSKELETAL: No joint swelling or deformity. EXTREMITIES: No cyanosis, clubbing, or pedal edema. NEUROLOGICAL: Unable to assess patient is drowsy and sleepy SKIN: No rashes. - Labs CBC & Chem 7: 12/13/19 04:05 12/14/19 12:14 Labs: Abnormal Lab Results - Last 24 Hours (Table) 12/11/19 12/13/19 12/13/19 Range/Units 06:13 13:28 14:36 Chloride (98-107) mmol/L Glucose (74-99) mg/dL POC Glucose (mg/dL) 63 L 64 L (75-99) mg/dL Albumin (PEP) 2.19 L (3.80-4.90) g/dL Hcpwa-8-Cuwiuqxaz 0.59 H (0.10-0.40) g/dL Beta Globulins 0.54 L (0.60-1.30) g/dL Gamma Globulins 0.53 L (0.70-1.50) g/dL 12/13/19 12/14/19 12/14/19 Range/Units 14:55 02:13 02:24 Chloride (98-107) mmol/L Glucose (74-99) mg/dL POC Glucose (mg/dL) 68 L 58 L 55 L (75-99) mg/dL Albumin (PEP) (3.80-4.90) g/dL Cuyyo-4-Slsuujuhh (0.10-0.40) g/dL Beta Globulins (0.60-1.30) g/dL Gamma Globulins (0.70-1.50) g/dL 12/14/19 12/14/19 12/14/19 Range/Units 02:26 02:55 07:23 Chloride (98-107) mmol/L Glucose (74-99) mg/dL POC Glucose (mg/dL) 49 L 61 L 63 L (75-99) mg/dL Albumin (PEP) (3.80-4.90) g/dL Fzrnl-3-Ohfrymvna (0.10-0.40) g/dL Beta Globulins (0.60-1.30) g/dL Gamma Globulins (0.70-1.50) g/dL 12/14/19 12/14/19 12/14/19 Range/Units 07:38 07:53 11:23 Chloride (98-107) mmol/L Glucose (74-99) mg/dL POC Glucose (mg/dL) 65 L 73 L 210 H (75-99) mg/dL Albumin (PEP) (3.80-4.90) g/dL Xeatt-6-Nwzstjsyl (0.10-0.40) g/dL Beta Globulins (0.60-1.30) g/dL Gamma Globulins (0.70-1.50) g/dL 12/14/19 Range/Units 12:14 Chloride 113 H (98-107) mmol/L Glucose 236 H (74-99) mg/dL POC Glucose (mg/dL) (75-99) mg/dL Albumin (PEP) (3.80-4.90) g/dL Wpneg-2-Flyfwcsbv (0.10-0.40) g/dL Beta Globulins (0.60-1.30) g/dL Gamma Globulins (0.70-1.50) g/dL Microbiology - Last 24 Hours (Table) 12/11/19 06:30 Blood Culture - Preliminary Blood No Growth after 72 hours Assessment and Plan Plan: Severe sepsis secondary to streptococcal bacteremia, patient will continue on ceftezolin and repeat the blood cultures I'm negative. H and has discitis with an MRI of the cervical spine which was ordered by neurology.we'll discuss with infectious disease , spinal surgery evaluated the patient for this no further surgical intervention at this time as per the recommendation -Altered mental status secondary to toxic encephalopathy from multiple medications all the narcotic takes including benzodiazepines, opiates and anticholinergic medications will be discontinued and the patient will be started on Toradol and Tylenol for pain. Gabapentin is being discontinued and patient is being started on Lyrica. Sepsis may be contributing to his altered status as well patient appears to have toxic encephalopathy. patient is on Seroquel for agitation but still having agitation episodes. -Fever with leukocytosis secondary tobacteremia with streptococci -Chronic back and neck pain -Recent the right upper extremity DVT for which patient is on Eliquis which will be continued Of coronary artery disease -Congestive heart failure chronic diastolic dysfunction presently not in acute exacerbation patient will be closely monitored for heart failure patient is presently getting IV fluids, will order a chest x-ray patient is bit Tachycardic today. Type 2 diabetes mellitus insulin-patient is hypoglycemic will discontinue Levemir and glimepiride -Obstructive sleep apnea next and-obesity -COPD without any acute exacerbation -History of nonsustained VT in the past -Gastroesophageal reflux disease -Hyperlipidemia
[2019-12-14] MEDS ORDERED: OLANZapine 10 MG VIAL IM STA (13:26)
--- NOTE | 2019-12-14 13:39 | P.PN ---
Progress Note - Text Progress Note Date: 12/14/19 IDENTIFYING DATA: This patient is a 69-year-old male currently lives with his and house has no kids. Patient is currently retired. HISTORY OF PRESENT ILLNESS: The patient presented to the hospital with acute agitation and confusional state. Patient was given IM ketamine in the ER prior to be admitted to the hospital. Patient according to ER report has recently been diagnosed with a mixed connective tissue disorder as per patient's and was started on prednisone. Patient had been developing behavioral issues agitation and confusion. Patient was tended to be seen yesterday and started on Seroquel 25 mg twice a day when necessary +25 mg daily at bedtime scheduled do se. According to nursing care patient she states that patient has been taking has been yelling and restless in the bed. Patient also had poor sleep last night according to nurse. Patient was given Haldol IM 2 mg this morning. Patient was seen at the bedside and was a week however. He becomes confused and attempting to get out of the bed repeatedly and was yelling unintelligible things. She was not directable and appeared to have poor attention span and was not able to follow any commands. Patient was attempting to pull out his IV lines. Patient's brother was in the room and was agreeable to speak to conventional mortgage underwriter outside and give further information. He states that patient acute agitation and confusion has been occurring for approximately one week now. He states that patient has usually been calmer and has been in "int[facility] [place]" all of his life and states that he has not had no prior psychiatric history. He claims that one week ago he came to the house and found him on the floor and was restless and confused and brought into the hospital. Brother was able to give further social history. Brother claims that patient quit cigarettes 18 years ago and denies any other drug use. PAST PSYCHIATRIC HISTORY: Brother stated that patient has no prior psychiatric history has never seen a psychiatrist or been on psychiatric medications. Denies any history of suicide attempts in the past. PAST MEDICAL HISTORY: CHF, COPD, coronary artery disease. Recently been diagnosed with mixed connective tissue disorder at [facility] placed on steroids. ALLERGIES: as per EMR. CHEMICAL DEPENDENCY HISTORY: as per HPI. FAMILY PSYCHIATRIC/SUBSTANCE USE HISTORY: denies SOCIAL HISTORY: Patient was born and raised in [place] and grew up in [place]. 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 He states that he lives with his in a house has no kids. He denied his brother having any legal history in the past. MENTAL STATUS EXAM: General Appearance: Patient appears to be agitated, restless and difficult to redirect. Patient appears to be confused and yelling at times. Poor hygiene and grooming. Behavior: Patient is agitated and restless, attempting to get out of bed. Unable to follow any commands. Speech: Patient's speech is loud, yelling and unintelligible. Mood/Affect: Unable to assess Suicidality/Homicidality: Unable to assess Perceptions: Appears to be responding to internal stimuli. Though content/process: Loose associations, yelling, illogical. Memory and concentration: Poor attention span, unable to follow any commands. Unable to participate in exam. Judgment and insight: poor IMPRESSIONS: Delirium, likely etiologies including medical condition (possibly CAROLYN?), medications (steroids and oipiods) PLAN: -At this time patient DOES NOT meet criteria for inpatient psychiatric admission. -Patient DOES NOT have decision making capacity at this time and is unable to reason through and communicate/appreciate the risks, benefits and alternatives to treatment. -Delirium precautions recommended with patient including - avoiding use of narcotics and SENIOR CLINICAL RESEARCH SCIENTIST sedatives, limit anticholinergic medications when possible, frequent re-orientation, minimize use of restraints, open window shades during the day and close them at night -Would recommend the following medication changes/additions: Attempt to cutback opioids as much as possible and possibly have prednisone reevaluated to see if this can be cut down as it could be exacerbated patient's delirium. Ordered Zyprexa IM 2.5 mg now for acute agitation and delirium. Increased Seroquel 25 mg 3 times a day when necessary for agitation/delirium. Increased scheduled Seroquel to 50 mg daily at bedtime +25 mg daily. -Continue 1:1 sitter for safety -Will continue to follow along -Communicated plan to patient's nurse -Please contact with any questions.
[2019-12-14] MEDS ORDERED: QUEtiapine 25 MG TAB PO PRN (13:40)
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
--- NOTE | 2019-12-14 15:55 | PN ---
PROGRESS NOTE DATE OF SERVICE: 12/14/2019 REASON FOR FOLLOWUP: Staphylococcus bacteremia, possible discitis. INTERVAL HISTORY: The patient is currently afebrile. Patient is pleasantly confused. Not agitated and now specifically denies having any chest pain or cough. No nausea, no abdominal pain or diarrhea. PHYSICAL EXAMINATION: Blood pressure 191/88, pulse of 112, temperature is 97.5. He is 96% on 2 L nasal cannula. General description is an elderly male, lying in bed in no distress. RESPIRATORY SYSTEM: Unlabored breathing, clear to auscultation anteriorly. HEART: S1, S2. Regular rate and rhythm. ABDOMEN: Soft, no tenderness. LABS: BUN of 20, creatinine 0.89. Blood culture repeat has been negative so far. DIAGNOSTIC IMPRESSION AND PLAN: Patient with Enterococcus bacteremia with concern for possible lumbar discitis. Followup blood culture negative. Patient on cefazolin 2 g q.8 hours to continue. He will need a PICC line and outpatient therapy. Pain response and continue supportive care. MMODL / IJN: [id number] /
--- NOTE | 2019-12-14 15:58 | XR ---
EXAMINATION TYPE: XR chest 1V DATE OF EXAM: 12/14/2019 COMPARISON: 12/09/2019 INDICATION: Pulmonary edema TECHNIQUE: Single frontal view of the chest is obtained. FINDINGS: The heart size is normal. The pulmonary vasculature is prominent. There is diffuse increased lung markings present diffusely. Correlate for pulmonary edema. IMPRESSION: 1. Diffuse increased lung markings with prominent pulmonary vascular markings. Correlate for mild pul monary edema or volume overload.
[2019-12-14 16:33] LABS: Glucose,Whole Blood 293 mg/dL (75-99)
[2019-12-14] MEDS: IPRATROPIUM-ALBUTEROL 3 ML NEB INHALATION PRN (17:26)
[2019-12-14 20:50] LABS: Glucose,Whole Blood 156 mg/dL (75-99)
[2019-12-14] MEDS: TAMSULOSIN 0.4 MG CAP.ER.24H PO SCH (20:50)
[2019-12-14] MEDS: QUEtiapine 50 MG TAB PO SCH (20:50)
[2019-12-14] MEDS: PRAMIPEXOLE 1 MG TAB PO SCH (20:50)
[2019-12-14] MEDS: ATORVASTATIN 80 MG TAB PO SCH (20:50)
[2019-12-14 23:22] LABS: Glucose,Whole Blood 115 mg/dL (75-99)
[2019-12-15 07:00] LABS: Glucose,Whole Blood 97 mg/dL (75-99)
[2019-12-15] MEDS: SYMBICORT 80-4.5 MCG INHALER INHALATION SCH ×2 (07:07→19:47)
[2019-12-15 07:10] LABS: Glucose,Whole Blood 95 mg/dL (75-99)
[2019-12-15] MEDS: PANTOPRAZOLE 40 MG TABLET PO SCH (07:26)
[2019-12-15] MEDS: HYDROmorphone 0.5 MG/0.5 ML SYRINGE IVP PRN ×2 (08:16→23:08)
[2019-12-15 09:03] LABS: African American GFR (CKD) 104.9 (60.0-200.0); Anion Gap 10.7 mmol/L (4.00-12.00); BUN/Creat Ratio 22.5 Ratio (12.00-20.00); Calcium 8.2 mg/dL (8.7-10.3); Carbon Dioxide 23.3 mmol/L (21.6-31.8); Non-African American GFR(CKD) 90.5 (60.0-200.0); Potassium 3.6 mmol/L (3.5-5.5)
[2019-12-15] MEDS: FUROSEMIDE 10 MG/ML 4 ML VIAL IV SCH (09:52)
[2019-12-15] MEDS: ASPIRIN 81 MG PO SCH (09:53)
[2019-12-15] MEDS: QUEtiapine 25 MG TAB PO SCH (09:53)
[2019-12-15] MEDS: APIXABAN 5 MG TAB PO SCH ×2 (09:53→21:23)
--- NOTE | 2019-12-15 09:53 | P.PN ---
Subjective From records 69-year-old pleasant male well known to me from from his previous aspiration patient had a prolonged hospitalization for fevers patient will was workup was worked up for sepsis which was negative and subsequently diagnosed with mixed co nnective tissue disorder in [facility]. Patient at the nursing facility got agitated daily years because of which patient was sent in here patient is comparing of severe pain patient does have chronic back pain issues patient is on multiple medications that can cause delirium and confusion including the oxycodone and baclofen and gabapentin teen. Patient was evaluated by neurology for altered mental status and the patient is being started on Lyrica instead of gabapentin teen patient did receive Dilaudid unfortunately we don't have many choices. It's documented as patient is ALLERGIC to Tylenol but the that doesn't appear to be real ALLERGY and patient appeared to have some side effects from Tylenol. Patient to presently is being started on Tylenol to avoid opiates considering his delirium and agitation episodes. Ativan will be discontinued as well will use Seroquel and Haldol as needed for agitation. And the patient will also be started on Toradol with close monitoring of kidney function. He did have a low-grade fever which is a significant decrease in acuity disorder and there is no evidence of infection at this time. Patient had a CT of the brain which did not show any significant abnormality. 12/11/2019 Patient still has episodes of agitation. Patient is found to have bacteremia with alpha hemolytic streptococci although source is unknown at this time. Patient is undergoing a repeat MRI of the cervical spine infectious disease evaluated the patient. 12/12/2019 patient's overall confusion improved patient did receive Seroquel because of agitation still has agitation but much improved compared to admission. MRI didn't show discitis but these findings were present during his previous hospital physician too and was evaluated byback surgeon at that time. We will discuss with infectious disease regarding this. 12/13 2019 Patient is still having some agitational episodes. Patient is still on baclofen and Dilaudid. Unfortunately I'm unable to take him of these medications. These medications may be Related to his symptoms AND psychiatrically for any further recommendations regarding his psychosis agitation. Spinal surgeon did evaluate the patient, a repeat MRIs and computed tomography scan of the head and neck were obtained but they're not requiring any further intervention except for continuation of antibiotics. Repeat cultures are negative for strep bacteremia 12/14/2019 Patient is still getting confused patient was a valid by psychiatric and patient was started on the Seroquel twice daily as needed along with nighttime scheduled Seroquel unfortunately patient still remains on Dilaudid dose of which I'm cutting down. Continue with Lyrica. Subjective: This is a first time taking care of the patient 12/15/2019 Patient today he is awake and alert, he knows he isn't maturing hospital he knows the year 2019 and the name of the president Wagner. He wasn't sure why he was in the hospital but he was complaining of from back pain, he couldn't move his feet and toes. No specific numbness. LSO is at bedside. Sitter is at bedside for safety. He is also complaining of from some dyspnea and he remains on D5 normal saline at 75 mL/h. Also he has a Finch catheter was some dark colored urine, as per staff last night he was pulling his Finch catheter. If his urine will not clear up then we'll consult urologist. We will keep monitoring for now since he is more calm. He is saturating 90s on 3 L oxygen. Patient was hypoglycemic however his glucoses better today. He ate 2 bites from his breakfast and he drink fluids. Discuss with staff and bedside nurse Review of systems CONSTITUTIONAL: No fever, no malaise, no fatigue. HEENT: No recent visual problems or hearing problems. Denied any sore throat. CARDIOVASCULAR: No orthopnea, PND, no palpitations, no syncope. PULMONARY: No shortness of breath, no cough, no hemoptysis. GASTROINTESTINAL: No diarrhea, no nausea, no vomiting, no abdominal pain. Normoactive bowel sounds. NEUROLOGICAL: No headaches, no weakness, no numbness. HEMATOLOGICAL: Denies any bleeding or petechiae. GENITOURINARY: Denies any burning micturition, frequency, or urgency. MUSCULOSKELETAL/RHEUMATOLOGICAL: Denies any joint pain, swelling, or any muscle pain. ENDOCRINE: Denies any polyuria or polydipsia. Active Medications Generic Name Dose Route Start Last Admin Trade Name Freq PRN Reason Stop Dose Admin Acetaminophen 650 mg 12/11/19 13:41 Acetaminophen Tab 325 Mg Tab PO Q6HR PRN Fever and/ or mild Pain Albuterol/Ipratropium 3 ml 12/10/19 12:58 12/14/19 17:26 Ipratropium-Albuterol 3 Ml Neb INHALATION 3 ml RT-QID PRN Administration Shortness Of Breath Apixaban 5 mg 12/10/19 13:00 12/14/19 20:50 Apixaban 5 Mg Tab PO 5 mg Q12HR JOSE Administration Aspirin 81 mg 12/11/19 09:00 12/14/19 07:08 Aspirin 81 Mg PO 81 mg DAILY JOSE Administration Atorvastatin Calcium 80 mg 12/10/19 21:00 12/14/19 20:50 Atorvastatin 80 Mg Tab PO 80 mg HS JOSE Administration Budesonide/Formoterol Fumarate 2 puff 12/10/19 20:00 12/15/19 07:07 Symbicort 80-4.5 Mcg Inhaler INHALATION 2 puff RT-BID JOSE Administration Furosemide 40 mg 12/15/19 09:45 Furosemide 10 Mg/Ml 4 Ml Vial IV DAILY JOSE Haloperidol Lactate 2 mg 12/13/19 23:39 12/14/19 20:50 Haloperidol Lactate 5 Mg/Ml 1 Ml Vial IM 2 mg Q6HR PRN Administration Agitation or Acute Psychosis Hydromorphone HCl 0.5 mg 12/14/19 11:43 12/15/19 08:16 Hydromorphone 0.5 Mg/0.5 Ml Syringe IVP 0.5 mg Q4HR PRN Administration Moderate Pain Cefazolin Sodium 2 gm/ Sodium 50 mls @ 100 mls/hr 12/11/19 16:00 12/15/19 07:26 Chloride IVPB 100 mls/hr Q8HR JOSE Administration Ketoconazole 1 applic 12/11/19 09:00 12/14/19 07:08 Ketoconazole 2% Shampoo 1 Applic/Ml TOPICAL 1 applic Q72H JOSE Administration Ketorolac Tromethamine 15 mg 12/10/19 13:55 12/12/19 16:27 Ketorolac 15 Mg/Ml 1 Ml Vial IVP 12/15/19 13:56 15 mg Q6HR PRN Administration Pain Magnesium Oxide 400 mg 12/11/19 09:00 12/14/19 07:08 Magnesium Oxide 400 Mg Tab PO 400 mg DAILY JOSE Administration Metoprolol Tartrate 50 mg 12/13/19 21:00 12/14/19 20:50 Metoprolol Tartrate 50 Mg Tab PO 50 mg BID JOSE Administration Naloxone HCl 0.2 mg 12/09/19 18:12 Naloxone 0.4 Mg/Ml 1 Ml Vial IV Q2M PRN Opioid Reversal Nitroglycerin 0.4 mg 12/10/19 12:58 Nitroglycerin Sl Tabs 0.4 Mg Tab SUBLINGUAL Q5M PRN Chest Pain Pantoprazole Sodium 40 mg 12/11/19 07:30 12/15/19 07:26 Pantoprazole 40 Mg Tablet PO 40 mg [id number]-[id number] JOSE Administration Pramipexole Dihydrochloride 1 mg 12/10/19 21:00 12/14/19 20:50 Pramipexole 1 Mg Tab PO 1 mg HS JOSE Administration Prednisone 20 mg 12/11/19 09:00 12/14/19 07:08 Prednisone 20 Mg Tab PO 20 mg DAILY JOSE Administration Pregabalin 75 mg 12/10/19 15:10 12/14/19 20:50 Pregabalin 75 Mg Cap PO 75 mg BID JOSE Administration Quetiapine Fumarate 50 mg 12/14/19 21:00 12/14/19 20:50 Quetiapine 50 Mg Tab PO 50 mg HS JOSE Administration Quetiapine Fumarate 25 mg 12/15/19 09:00 Quetiapine 25 Mg Tab PO DAILY JOSE Quetiapine Fumarate 25 mg 12/14/19 13:40 Quetiapine 25 Mg Tab PO TID PRN Agitation Tamsulosin HCl 0.4 mg 12/10/19 21:00 12/14/19 20:50 Tamsulosin 0.4 Mg Cap.Er.24h PO 0.4 mg HS JOSE Administration Objective - Vital Signs Vital signs: Vital Signs Temp 98.8 F 12/15/19 07:00 Pulse 84 12/15/19 07:00 Resp 22 12/15/19 07:00 BP 164/84 12/15/19 07:00 Pulse Ox 95 12/15/19 07:07 Intake & Output 12/14/19 12/15/19 12/15/19 18:59 06:59 18:59 Intake Total 360 Output Total 900 1000 Balance -540 -1000 Intake: Oral 360 Output: Urine 900 1000 Other: Voiding Method Indwelling Catheter Indwelling Catheter Indwelling Catheter # Bowel Movements 1 - Exam GENERAL: The patient is alert and oriented x3, not in any acute distress. Obese HEENT: Pupils are round and equally reacting to light. EOMI. No scleral icterus. No conjunctival pallor. Normocephalic, atraumatic. No pharyngeal erythema. No thyromegaly. CARDIOVASCULAR: S1 and S2 present. No murmurs, rubs, or gallops. PULMONARY: Chest is clear to auscultation, no wheezing or crackles. -ABDOMEN: Soft, nontender, nondistended, normoactive bowel sounds. No palpable organomegaly. Finch catheter is in place MUSCULOSKELETAL: No joint swelling or deformity. EXTREMITIES: No cyanosis, clubbing, or pedal edema. NEUROLOGICAL: Gross neurological examination did not reveal any focal deficits. SKIN: No rashes. no petechiae. - Labs CBC & Chem 7: 12/13/19 04:05 12/15/19 05:33 Labs: Abnormal Lab Results - Last 24 Hours (Table) 12/11/19 12/14/19 12/14/19 Range/Units 06:13 11:23 12:14 Sodium (135-145) mmol/L Chloride 113 H (98-107) mmol/L BUN/Creatinine Ratio (12.00-20.00) Ratio Glucose 236 H (74-99) mg/dL POC Glucose (mg/dL) 210 H (75-99) mg/dL Calcium (8.7-10.3) mg/dL Albumin (PEP) 2.19 L (3.80-4.90) g/dL Cmsce-3-Auxzmbinp 0.59 H (0.10-0.40) g/dL Beta Globulins 0.54 L (0.60-1.30) g/dL Gamma Globulins 0.53 L (0.70-1.50) g/dL 12/14/19 12/14/19 12/14/19 Range/Units 16:32 20:29 23:01 Sodium (135-145) mmol/L Chloride (98-107) mmol/L BUN/Creatinine Ratio (12.00-20.00) Ratio Glucose (74-99) mg/dL POC Glucose (mg/dL) 293 H 156 H 115 H (75-99) mg/dL Calcium (8.7-10.3) mg/dL Albumin (PEP) (3.80-4.90) g/dL Fdlys-9-Vuwfwnksq (0.10-0.40) g/dL Beta Globulins (0.60-1.30) g/dL Gamma Globulins (0.70-1.50) g/dL 12/15/19 Range/Units 05:33 Sodium 147 H (135-145) mmol/L Chloride 113 H (98-107) mmol/L BUN/Creatinine Ratio 22.50 H (12.00-20.00) Ratio Glucose (74-99) mg/dL POC Glucose (mg/dL) (75-99) mg/dL Calcium 8.2 L (8.7-10.3) mg/dL Albumin (PEP) (3.80-4.90) g/dL Thbci-7-Cttnnknha (0.10-0.40) g/dL Beta Globulins (0.60-1.30) g/dL Gamma Globulins (0.70-1.50) g/dL Microbiology - Last 24 Hours (Table) 12/11/19 06:30 Blood Culture - Preliminary Blood No Growth after 96 hours Assessment and Plan Assessment: -Severe sepsis secondary to streptococcal bacteremia, patient will continue on ceftezolin and repeat the blood cultures is negative. He has discitis with an MRI of the cervical spine which was ordered by neurology. Follow-up recommendation by infectious disease, orthopedic team/spinal surgery team -Altered mental status secondary to toxic encephalopathy from multiple m edications all the narcotic takes including benzodiazepines, opiates and anticholinergic medications will be discontinued and the patient will be started on Toradol and Tylenol for pain. Gabapentin is being discontinued and patient is being started on Lyrica. Improving -Fever with leukocytosis secondary to bacteremia with streptococci -Chronic back and neck pain -Recent the right upper extremity DVT for which patient is on Eliquis which will be continued Of coronary artery disease -Possible hematuria secondary to trauma. We'll check UA and bladder scan. If no improvement then we'll consider a urological evaluation -Congestive heart failure chronic diastolic dysfunction presently not in acute exacerbation patient will be closely monitored for heart failure patient is presently getting IV fluids, will order a chest x-ray patient is bit Tachycardic today. Type 2 diabetes mellitus insulin-patient is hypoglycemic will discontinue Levemir and glimepiride -Obstructive sleep apnea next and-obesity -COPD without any acute exacerbation -History of nonsustained VT in the past -Gastroesophageal reflux disease -Hyperlipidemia
[2019-12-15] MEDS: METOPROLOL TARTRATE 50 MG TAB PO SCH ×2 (09:54→21:23)
[2019-12-15] MEDS: predniSONE 20 MG TAB PO SCH (09:54)
[2019-12-15] MEDS: PREGABALIN 75 MG CAP PO SCH ×2 (09:54→21:22)
[2019-12-15] MEDS: MAGNESIUM OXIDE 400 MG TAB PO SCH (09:54)
[2019-12-15 11:23] LABS: Glucose,Whole Blood 115 mg/dL (75-99)
[2019-12-15] MEDS: IPRATROPIUM-ALBUTEROL 3 ML NEB INHALATION PRN (12:58)
--- NOTE | 2019-12-15 14:22 | CDI ---
Documentation Clarification Form Date: 12/15/2019 CDS: Génesis Durham, CCS, CCDS Admit Date: 12/09/2019 Patient Name: Rogers Morley Discharge Date: ATTENTION: The Clinical Documentation Specialists (CDI) and [facility] Coding Staff appreciate your assistance in clarifying documentation. Please respond to the clarification below the line at the bottom and electronically sign. The CDI & [facility] Coding staff will review the response and follow-up if needed. Please note: Queries are made part of the Legal Health Record. If you have any questions, please contact the author of this message via ITS. Dear Dr. Mathew Kulkarni. Sheet: Per the 12/08 ED note, the 12/09 History & Physical and subsequent Consult Notes: "Chronic respiratory failure, CALLI with CPAP/O2 at 4L/NC at HS." History/Risk Factors: CAD w/stent, Chronic Diastolic Heart Failure, CALLI on home O2, TIAs, DM II, Former Smoker. Clinical Indicators: Presented to the ED on 12/08 with altered mental status. Recent admission with Sepsis unknown origin and Cervical & Back Pain. Admitted with Toxic Encephalopathy secondary to multiple narcotics. Possible Discitis & Osteomyelitis. Vital signs: T 99.5, P 127^, R 20, BP 145/83, PO 96 RA - 92 RA CXR 12/08: No active cardiopulmonary disease. Normal heart. No change. Treatment: O2 3Lnc, INH Albuterol, INH Symbicort In your professional opinion, can you please clarify the type of Chronic Respiratory Failure: With hypercapnia? With hypoxia? (Last Query Form Revision: November 2018) With hypoxia MTDD
--- NOTE | 2019-12-15 14:24 | P.PN ---
Progress Note - Text Progress Note Date: 12/15/19 Interval History: Patient was seen for psychiatric follow-up today regarding patient confusion and delirium. Patient has been taking Seroquel scheduled and patient's nurse states that patient is doing better today and overall and following more commands and was resting earlier. Patient was seen at the bedside with his one-to-one sitter. Patient appeared to be still confused today however improved from yesterday. He continues to mumble at times and speech was difficult to comprehend however patient was able to follow more commands today. He was able to identify different objects in the room. He asked when he can leave the hospital. Apparently he states that he did not sleep well last night. He was alert and oriented 2 and did not know what today's date was or also why he was in the hospital. Attention span is improving mildly. At this time patient denies any suicidal or homical ideations, intent or plan. Patient denies any auditory, visual hallucinations. Patient denies any side effects from the medications and has been compliant with meds. Mental Status Exam: General Appearance: Patient appears to be lethargic, confused however more directable today. Improving hygiene and grooming. Wearing hospital gown. Behavior: Patient is lethargic however more cooperative. Following more commands today. Speech: Patient's speech is mumbled. Mood/Affect: Patient states his mood is "okay" and affect is constricted. Suicidality/Homicidality: Denies Perceptions: Not responding to internal stimuli today. Denies any auditory or visual hallucinations. Though content/process: [place], poverty of content. More logical today. Memory and concentration: improving attention span, following more commands. Can identify objects in the room. Alert and oriented 2, patient did not know why he was in the hospital and what today's date was. Judgment and insight: poor, improving mildly Impression: Delirium, likely etiologies including medical condition (possibly CAROLYN?), medications (steroids and oipiods) Plan: -At this time patient DOES NOT meet criteria for inpatient psychiatric admission. -Patient DOES NOT have decision making capacity at this time and is unable to reason through and communicate/appreciate the risks, benefits and alternatives to treatment. -Delirium precautions recommended with patient including - avoiding use of narcotics and [employer] sedatives, limit anticholinergic medications when possible, frequent re-orientation, minimize use of restraints, open window shades during the day and close them at night -Would recommend the following medication changes/additions: Continue to cutback opioids as much as possible. Can order Zyprexa IM 2.5 mg prn for acute severe agitation and delirium if needed. Continue with Seroquel 25 mg 3 times a day when necessary for agitation/delirium. Continue with scheduled Seroquel to 50 mg daily at bedtime +25 mg daily. -Continue 1:1 sitter for safety -Will continue to follow along, continue with treatment of underlying medical comorbidities. -Communicated plan to patient's nurse -Please contact with any questions.
--- NOTE | 2019-12-15 15:39 | P.PN ---
Subjective Progress Note Date: 12/15/19 Patient was seen for a follow-up. Patient's was also present and the adjunct nursing faculty. Patient asleep at this time. Per his he is little better, not talking as gibberish. Patient's states that he was fine at home until the evening that he was admitted when he started talking gibberish and paranoid thoughts. He thought everyone was trying to get him. Patient underwent MRI of the thoracic and lumbar spine with and without contrast on 12/11/2019. MRI of the thoracic spine showed no obvious suspicious edema or enhancement to suggest discitis/acute osteomyelitis in the thoracic spine. MRI of the lumbar spine showed infectious process lower lumbar spinous informed with abnormal fluid and enhancement. No well-formed fluid collection or drainable abscess. Areas of discitisacute osteomyelitis likely present with the surrounding inflammatory change. Objective - Vital Signs Vital signs: Vital Signs Temp 99.1 F 12/15/19 14:47 Pulse 102 H 12/15/19 14:47 Resp 22 12/15/19 14:47 BP 146/74 12/15/19 14:47 Pulse Ox 97 12/15/19 14:47 Intake & Output 12/14/19 12/15/19 12/15/19 18:59 06:59 18:59 Intake Total 360 360 Output Total 900 1000 Balance -540 -1000 360 Intake: Oral 360 360 Output: Urine 900 1000 Other: Voiding Method Indwelling Catheter Indwelling Catheter Indwelling Catheter # Voids 3 # Bowel Movements 1 - Exam Patient asleep, did not wake him up. - Labs CBC & Chem 7: 12/13/19 04:05 12/15/19 05:33 Labs: Abnormal Lab Results - Last 24 Hours (Table) 12/14/19 12/14/19 12/14/19 Range/Units 16:32 20:29 23:01 Sodium (135-145) mmol/L Chloride (96-109) mmol/L BUN/Creatinine Ratio (12.00-20.00) Ratio POC Glucose (mg/dL) 293 H 156 H 115 H (75-99) mg/dL Calcium (8.7-10.3) mg/dL 12/15/19 12/15/19 Range/Units 05:33 11:20 Sodium 147 H (135-145) mmol/L Chloride 113 H (96-109) mmol/L BUN/Creatinine Ratio 22.50 H (12.00-20.00) Ratio POC Glucose (mg/dL) 115 H (75-99) mg/dL Calcium 8.2 L (8.7-10.3) mg/dL Microbiology - Last 24 Hours (Table) 12/09/19 17:38 Blood Culture Gram Stain - Final Blood Blood Culture - Final Alpha Hemolytic Streptococcus Diphtheroid species 12/11/19 06:30 Blood Culture - Preliminary Blood No Growth after 96 hours Assessment and Plan Assessment: * Altered mental status, due to toxic metabolic encephalopathy. Patient appears delirious. * Discitis/osteomyelitis lower lumbar spine. 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 Possible underlying diabetic neuropathy. * Recurrent back spasms, likely due to discitis osteomyelitis. Patient has history of back surgery in the past * Diabetes, not very well controlled, A1c 7.8. * Osteoarthritis Plan: * Patient continues to have altered mental status. We will check EEG. * Patient on antibiotics for discitis with osteomyelitis without specific e pidural abscess in the lower lumbar spine. Patient being treated conservatively, not a candidate for surgery as per orthopedic spine. Infectious disease also on board. * Patient has severe toxic metabolic encephalopathy. He is delirious. Psychiatry has seen the patient and optimizing the dose of Seroquel. Check EEG. * Continue Lyrica 75 mg twice a day. Does not appear to be in pain at this loco e. * Blood test shows B12 638, folate 8.0, B6 5, which is very borderline and FAROOQ antibodies came negative. * Serum protein electrophoresis and immune fixation electrophoresis revealed small monoclonal IgG Irving, measuring 0.07 g/dL identified. Consider hematology consultation for possible monoclonal gammopathy, rule out paraproteinemia. Repeat ESR 126 and CRP 39.5. Blood cultures grew gram- positive cocci in chains, alpha hemolytic streptococci. * MRI of the cervical spine showed no epidural abscess in the cervical spine. Cervical kyphosis centered at C5 6. Minimal grade 1 spondylolisthesis of C4 anteriorly on C5. Central focal disc bulge C5 6 with cord contact and some cord compromise. No stenosis. C4 5 disc bulging and endplate changes with mild anterior thecal sac flattening in the close approximation with the cord without deformity or stenosis. * 2-D echo showed normal left-ventricular size, mild concentric LVH. EF is 55- 60%. Interatrial and interventricular septum intact. Mild aortic valve sclerosis. Moderate pulmonary hypertension.
--- NOTE | 2019-12-15 15:43 | PN ---
PROGRESS NOTE DATE OF SERVICE: 12/15/2019 REASON FOR FOLLOWUP: Streptococcus bacteremia and a question of sacral discitis. INTERVAL HISTORY: The patient is currently afebrile. The patient's mentation remains to be a problem. He did have a sitter at the bedside specifically he denies having any headache or any chest pain. No abdominal pain and no diarrhea has been reported. PHYSICAL EXAMINATION: Blood pressure 147/73 with a pulse of 90, temperature 99.6. He is 99% on 3 L nasal cannula. General description is an elderly male lying in bed in no distress. RESPIRATORY SYSTEM: Unlabored breathing with decreased breath sounds at the base. No wheeze. HEART: S1, S2. Regular rate and rhythm. ABDOMEN: Soft. No tenderness. LABS: BUN of 18, creatinine 0.8. Blood culture now showing diphtheroids species as well. Blood culture repeat has been negative. DIAGNOSTIC IMPRESSION AND PLAN: Patient with alpha hemolytic streptococcus bacteremia with concern for possible lumbar spine osteodiscitis. The patient is covered with cefazolin 2 grams q.8 hours; to continue. Finish his course of therapy. Follow-up blood cultures have been negative. Will monitor his clinical course closely. MMODL / IJN: [id number] /
[2019-12-15 16:47] LABS: Glucose,Whole Blood 306 mg/dL (75-99)
[2019-12-15 20:51] LABS: Glucose,Whole Blood 263 mg/dL (75-99)
[2019-12-15] MEDS: TAMSULOSIN 0.4 MG CAP.ER.24H PO SCH (21:23)
[2019-12-15] MEDS: QUEtiapine 50 MG TAB PO SCH (21:23)
[2019-12-15] MEDS: ATORVASTATIN 80 MG TAB PO SCH (21:23)
[2019-12-15] MEDS: PRAMIPEXOLE 1 MG TAB PO SCH (21:23)
[2019-12-15 22:00] LABS: Amorphous Sediment,Urine Rare /hpf; Appearance,Urine Clear (Clear); Bilirubin,Urine Negative (Negative); Blood,Urine Large (Negative); Color,Urine Yellow; Glucose,Urine (UA) Negative (Negative); Hyaline Casts,Urine 1 /lpf (0-2); Ketones,Urine Negative (Negative); Leukocyte Esterase,Urine Large (Negative); Mucus,Urine Rare /hpf; Nitrite,Urine Negative (Negative); PH, Urine 5.5 (5.0-8.0); Protein,Urine 1+ (Negative); RBC,Urine 30 /hpf (0-5); Specific Gravity,Urine 1.017 (1.001-1.035); Squamous Epithelial Cell,Urine <1 /hpf (0-4); Urobilinogen,Urine <2.0 mg/dL (<2.0); WBC,Urine 45 /hpf (0-5)
[2019-12-16 06:40] LABS: Anisocytosis Slight; Basophils % (A) 0 %; Eosinophils # (A) 0.3 k/uL (0-0.7); Eosinophils % (A) 4 %; HCT 24.4 % (39.0-53.0); HGB 7.6 gm/dL (13.0-17.5); Hypochromasia Moderate; Lymphocytes # (A) 1.5 k/uL (1.0-4.8); Lymphocytes % (A) 16 %; MCH 29.1 pg (25.0-35.0); MCHC 31.2 g/dL (31.0-37.0); MCV 93.2 fL (80.0-100.0); Mean Platelet Volume 9.1; Monocytes # (A) 0.4 k/uL (0-1.0); Monocytes % (A) 4 %; Neutrophils # (A) 6.9 k/uL (1.3-7.7); Neutrophils % (A) 75 %; Platelet Count 188 k/uL (150-450); RBC 2.62 m/uL (4.30-5.90); RDW 17.5 % (11.5-15.5); WBC 9.2 k/uL (3.8-10.6)
[2019-12-16 06:54] LABS: Glucose,Whole Blood 96 mg/dL (75-99)
[2019-12-16] MEDS: SYMBICORT 80-4.5 MCG INHALER INHALATION SCH ×2 (07:50→21:19)
[2019-12-16] MEDS: PREGABALIN 75 MG CAP PO SCH ×2 (07:55→20:28)
[2019-12-16] MEDS: ASPIRIN 81 MG PO SCH (07:55)
[2019-12-16] MEDS: APIXABAN 5 MG TAB PO SCH (07:55)
[2019-12-16] MEDS: PANTOPRAZOLE 40 MG TABLET PO SCH (07:55)
[2019-12-16] MEDS: MAGNESIUM OXIDE 400 MG TAB PO SCH (07:56)
[2019-12-16] MEDS: QUEtiapine 25 MG TAB PO SCH (07:56)
[2019-12-16] MEDS: METOPROLOL TARTRATE 50 MG TAB PO SCH ×2 (07:56→20:28)
[2019-12-16] MEDS: predniSONE 20 MG TAB PO SCH (07:56)
[2019-12-16] MEDS: FUROSEMIDE 10 MG/ML 4 ML VIAL IV SCH (07:56)
[2019-12-16 09:22] LABS: African American GFR (CKD) 104.9 (60.0-200.0); Anion Gap 7.7 mmol/L (4.00-12.00); BUN/Creat Ratio 23.75 Ratio (12.00-20.00); Calcium 8.2 mg/dL (8.7-10.3); Carbon Dioxide 28.3 mmol/L (21.6-31.8); Non-African American GFR(CKD) 90.5 (60.0-200.0); Potassium 3.1 mmol/L (3.5-5.5)
[2019-12-16 10:07] LABS: Free Kappa Lt Chain Qnt, Serum 1.65 mg/dL (0.33-1.94); Immunoglobulin A 70.8 mg/dL (60.0-350.0); Immunoglobulin M <16.9 mg/dL (40.0-280.0)
[2019-12-16 10:55] LABS: Reticulocyte % 0.9 % (0.5-2.0)
[2019-12-16 11:22] LABS: Glucose,Whole Blood 179 mg/dL (75-99)
--- NOTE | 2019-12-16 12:27 | P.PN ---
Subjective From records 69-year-old pleasant male well known to me from from his previous aspiration patient had a prolonged hospitalization for fevers patient will was workup was worked up for sepsis which was negative and subsequently diagnosed with mixed co nnective tissue disorder in [facility]. Patient at the nursing facility got agitated daily years because of which patient was sent in here patient is comparing of severe pain patient does have chronic back pain issues patient is on multiple medications that can cause delirium and confusion including the oxycodone and baclofen and gabapentin teen. Patient was evaluated by neurology for altered mental status and the patient is being started on Lyrica instead of gabapentin teen patient did receive Dilaudid unfortunately we don't have many choices. It's documented as patient is ALLERGIC to Tylenol but the that doesn't appear to be real ALLERGY and patient appeared to have some side effects from Tylenol. Patient to presently is being started on Tylenol to avoid opiates considering his delirium and agitation episodes. Ativan will be discontinued as well will use Seroquel and Haldol as needed for agitation. And the patient will also be started on Toradol with close monitoring of kidney function. He did have a low-grade fever which is a significant decrease in acuity disorder and there is no evidence of infection at this time. Patient had a CT of the brain which did not show any significant abnormality. 12/11/2019 Patient still has episodes of agitation. Patient is found to have bacteremia with alpha hemolytic streptococci although source is unknown at this time. Patient is undergoing a repeat MRI of the cervical spine infectious disease evaluated the patient. 12/12/2019 patient's overall confusion improved patient did receive Seroquel because of agitation still has agitation but much improved compared to admission. MRI didn't show discitis but these findings were present during his previous hospital physician too and was evaluated byback surgeon at that time. We will discuss with infectious disease regarding this. 12/13 2019 Patient is still having some agitational episodes. Patient is still on baclofen and Dilaudid. Unfortunately I'm unable to take him of these medications. These medications may be Related to his symptoms AND psychiatrically for any further recommendations regarding his psychosis agitation. Spinal surgeon did evaluate the patient, a repeat MRIs and computed tomography scan of the head and neck were obtained but they're not requiring any further intervention except for continuation of antibiotics. Repeat cultures are negative for strep bacteremia 12/14/2019 Patient is still getting confused patient was a valid by psychiatric and patient was started on the Seroquel twice daily as needed along with nighttime scheduled Seroquel unfortunately patient still remains on Dilaudid dose of which I'm cutting down. Continue with Lyrica. Subjective: This is a first time taking care of the patient 12/15/2019 Patient today he is awake and alert, he knows he isn't maturing hospital he knows the year 2019 and the name of the president Wagner. He wasn't sure why he was in the hospital but he was complaining of from back pain, he couldn't move his feet and toes. No specific numbness. LSO is at bedside. Sitter is at bedside for safety. He is also complaining of from some dyspnea and he remains on D5 normal saline at 75 mL/h. Also he has a Finch catheter was some dark colored urine, as per staff last night he was pulling his Finch catheter. If his urine will not clear up then we'll consult urologist. We will keep monitoring for now since he is more calm. He is saturating 90s on 3 L oxygen. Patient was hypoglycemic however his glucoses better today. He ate 2 bites from his breakfast and he drink fluids. Discuss with staff and bedside nurse 12/16/2019 Patient is awake and alert since yesterday afternoon, his mentation is back to his old self, confirmed with at bedside. His back pain is improving and today it's moderate about 4/10 however it's improved compared to yesterday as per patient. Finch catheter was changed and I discussed with staff he came in with Finch catheter from home, currently no more hematuria Discussed with the staff to obtain LSO brace Discuss plan of care with the patient and at bedside upon her request and all their questions were answered to their satisfaction. Review of systems CONSTITUTIONAL: No fever, no malaise, no fatigue. HEENT: No recent visual problems or hearing problems. Denied any sore throat. CARDIOVASCULAR: No orthopnea, PND, no palpitations, no syncope. PULMONARY: No shortness of breath, no cough, no hemoptysis. GASTROINTESTINAL: No diarrhea, no nausea, no vomiting, no abdominal pain. Normoactive bowel sounds. NEUROLOGICAL: No headaches, no weakness, no numbness. HEMATOLOGICAL: Denies any bleeding or petechiae. GENITOURINARY: Denies any burning micturition, frequency, or urgency. MUSCULOSKELETAL/RHEUMATOLOGICAL: Denies any joint pain, swelling, or any muscle pain. ENDOCRINE: Denies any polyuria or polydipsia. Active Medications Generic Name Dose Route Start Last Admin Trade Name Freq PRN Reason Stop Dose Admin Acetaminophen 650 mg 12/11/19 13:41 Acetaminophen Tab 325 Mg Tab PO Q6HR PRN Fever and/ or mild Pain Albuterol/Ipratropium 3 ml 12/10/19 12:58 12/15/19 12:58 Ipratropium-Albuterol 3 Ml Neb INHALATION 3 ml RT-QID PRN Administration Shortness Of Breath Apixaban 5 mg 12/10/19 13:00 12/16/19 07:55 Apixaban 5 Mg Tab PO 5 mg Q12HR JOSE Administration Aspirin 81 mg 12/11/19 09:00 12/16/19 07:55 Aspirin 81 Mg PO 81 mg DAILY JOSE Administration Atorvastatin Calcium 80 mg 12/10/19 21:00 12/15/19 21:23 Atorvastatin 80 Mg Tab PO 80 mg HS JOSE Administration Budesonide/Formoterol Fumarate 2 puff 12/10/19 20:00 12/16/19 07:50 Symbicort 80-4.5 Mcg Inhaler INHALATION 2 puff RT-BID JOSE Administration Furosemide 40 mg 12/15/19 09:45 12/16/19 07:56 Furosemide 10 Mg/Ml 4 Ml Vial IV 40 mg DAILY JOSE Administration Haloperidol Lactate 2 mg 12/13/19 23:39 12/14/19 20:50 Haloperidol Lactate 5 Mg/Ml 1 Ml Vial IM 2 mg Q6HR PRN Administration Agitation or Acute Psychosis Hydromorphone HCl 0.5 mg 12/14/19 11:43 12/15/19 23:08 Hydromorphone 0.5 Mg/0.5 Ml Syringe IVP 0.5 mg Q4HR PRN Administration Moderate Pain Cefazolin Sodium 2 gm/ Sodium 50 mls @ 100 mls/hr 12/11/19 16:00 12/16/19 07:56 Chloride IVPB 100 mls/hr Q8HR JOSE Administration Ketoconazole 1 applic 12/11/19 09:00 12/14/19 07:08 Ketoconazole 2% Shampoo 1 Applic/Ml TOPICAL 1 applic Q72H JOSE Administration Magnesium Oxide 400 mg 12/11/19 09:00 12/16/19 07:56 Magnesium Oxide 400 Mg Tab PO 400 mg DAILY JOSE Administration Metoprolol Tartrate 50 mg 12/13/19 21:00 12/16/19 07:56 Metoprolol Tartrate 50 Mg Tab PO 50 mg BID JOSE Administration Naloxone HCl 0.2 mg 12/09/19 18:12 Naloxone 0.4 Mg/Ml 1 Ml Vial IV Q2M PRN Opioid Reversal Nitroglycerin 0.4 mg 12/10/19 12:58 Nitroglycerin Sl Tabs 0.4 Mg Tab SUBLINGUAL Q5M PRN Chest Pain Pantoprazole Sodium 40 mg 12/11/19 07:30 12/16/19 07:55 Pantoprazole 40 Mg Tablet PO 40 mg [id number] JOSE Administration Pramipexole Dihydrochloride 1 mg 12/10/19 21:00 12/15/19 21:23 Pramipexole 1 Mg Tab PO 1 mg HS JOSE Administration Pramipexole Dihydrochloride 0.125 mg 12/16/19 16:00 Pramipexole 0.125 Mg Tab PO TID JOSE Prednisone 20 mg 12/11/19 09:00 12/16/19 07:56 Prednisone 20 Mg Tab PO 20 mg DAILY JOSE Administration Pregabalin 75 mg 12/10/19 15:10 12/16/19 07:55 Pregabalin 75 Mg Cap PO 75 mg BID JOSE Administration Quetiapine Fumarate 50 mg 12/14/19 21:00 12/15/19 21:23 Quetiapine 50 Mg Tab PO 50 mg HS JOSE Administration Quetiapine Fumarate 25 mg 12/15/19 09:00 12/16/19 07:56 Quetiapine 25 Mg Tab PO 25 mg DAILY JOSE Administration Quetiapine Fumarate 25 mg 12/14/19 13:40 Quetiapine 25 Mg Tab PO TID PRN Agitation Tamsulosin HCl 0.4 mg 12/10/19 21:00 12/15/19 21:23 Tamsulosin 0.4 Mg Cap.Er.24h PO 0.4 mg HS JOSE Administration Objective - Vital Signs Vital signs: Vital Signs Temp 98.4 F 12/16/19 07:00 Pulse 76 12/16/19 07:00 Resp 20 12/16/19 07:00 BP 142/67 12/16/19 07:00 Pulse Ox 98 12/16/19 07:00 Intake & Output 12/15/19 12/16/19 12/16/19 18:59 06:59 18:59 Intake Total 360 100 Output Total 1800 1600 1500 Balance -1440 -1500 -1500 Intake: Oral 360 100 Output: Urine 0001 [id number] Emesis 900 Other: Voiding Method Indwelling Catheter Indwelling Catheter # Voids 3 # Bowel Movements 1 - Exam GENERAL: The patient is alert and oriented x3, not in any acute distress. Obese HEENT: Pupils are round and equally reacting to light. EOMI. No scleral icterus. No conjunctival pallor. Normocephalic, atraumatic. No pharyngeal erythema. No thyromegaly. CARDIOVASCULAR: S1 and S2 present. No murmurs, rubs, or gallops. PULMONARY: Chest is clear to auscultation, no wheezing or crackles. -ABDOMEN: Soft, nontender, nondistended, normoactive bowel sounds. No palpable organomegaly. Finch catheter is in place MUSCULOSKELETAL: No joint swelling or deformity. EXTREMITIES: No cyanosis, clubbing, or pedal edema. NEUROLOGICAL: Gross neurological examination did not reveal any focal deficits. SKIN: No rashes. no petechiae. - Labs CBC & Chem 7: 12/16/19 06:11 12/16/19 06:11 Labs: Abnormal Lab Results - Last 24 Hours (Table) 12/15/19 12/15/19 12/15/19 Range/Units 16:35 20:49 21:29 RBC (4.30-5.90) m/uL Hgb (13.0-17.5) gm/dL Hct (39.0-53.0) % RDW (11.5-15.5) % Sodium (135-145) mmol/L Potassium (3.5-5.5) mmol/L Chloride (96-109) mmol/L BUN/Creatinine Ratio (12.00-20.00) Ratio POC Glucose (mg/dL) 306 H 263 H (75-99) mg/dL Calcium (8.7-10.3) mg/dL Urine Protein 1+ H (Negative) Urine Blood Large H (Negative) Ur Leukocyte Esterase Large H (Negative) Urine RBC 30 H (0-5) /hpf Urine WBC 45 H (0-5) /hpf Amorphous Sediment Rare H (None) /hpf Urine Mucus Rare H (None) /hpf IgG (700.0-1600.0) mg/dL IgM (40.0-280.0) mg/dL 12/16/19 12/16/19 12/16/19 Range/Units 06:11 06:11 06:11 RBC 2.62 L (4.30-5.90) m/uL Hgb 7.6 L (13.0-17.5) gm/dL Hct 24.4 L (39.0-53.0) % RDW 17.5 H (11.5-15.5) % Sodium 147 H (135-145) mmol/L Potassium 3.1 L (3.5-5.5) mmol/L Chloride 111 H (96-109) mmol/L BUN/Creatinine Ratio 23.75 H (12.00-20.00) Ratio POC Glucose (mg/dL) (75-99) mg/dL Calcium 8.2 L (8.7-10.3) mg/dL Urine Protein (Negative) Urine Blood (Negative) Ur Leukocyte Esterase (Negative) Urine RBC (0-5) /hpf Urine WBC (0-5) /hpf Amorphous Sediment (None) /hpf Urine Mucus (None) /hpf IgG 635.0 L (700.0-1600.0) mg/dL IgM <16.9 L (40.0-280.0) mg/dL 12/16/19 Range/Units 11:21 RBC (4.30-5.90) m/uL Hgb (13.0-17.5) gm/dL Hct (39.0-53.0) % RDW (11.5-15.5) % Sodium (135-145) mmol/L Potassium (3.5-5.5) mmol/L Chloride (96-109) mmol/L BUN/Creatinine Ratio (12.00-20.00) Ratio POC Glucose (mg/dL) 179 H (75-99) mg/dL Calcium (8.7-10.3) mg/dL Urine Protein (Negative) Urine Blood (Negative) Ur Leukocyte Esterase (Negative) Urine RBC (0-5) /hpf Urine WBC (0-5) /hpf Amorphous Sediment (None) /hpf Urine Mucus (None) /hpf IgG (700.0-1600.0) mg/dL IgM (40.0-280.0) mg/dL Microbiology - Last 24 Hours (Table) 12/11/19 06:30 Blood Culture - Preliminary Blood No Growth after 120 hours 12/09/19 17:38 Blood Culture Gram Stain - Final Blood Blood Culture - Final Alpha Hemolytic Streptococcus Diphtheroid species Assessment and Plan Assessment: -Severe sepsis secondary to streptococcal bacteremia, patient will continue on ceftezolin and repeat the blood cultures is negative. He has discitis with an MRI of the cervical spine which was ordered by neurology. Follow-up recommendation by infectious disease, orthopedic team/spinal surgery team -Altered mental status secondary to toxic encephalopathy from multiple medications all the narcotic takes including benzodiazepines, opiates and antic holinergic medications will be discontinued and the patient will be started on Toradol and Tylenol for pain. Gabapentin is being discontinued and patient is being started on Lyrica. Improving -Fever with leukocytosis secondary to bacteremia with streptococci -Chronic back and neck pain -Recent the right upper extremity DVT for which patient is on Eliquis which will be continued Of coronary artery disease -Possible hematuria secondary to trauma. We'll check UA and bladder scan. If no improvement then we'll consider a urological evaluation -Congestive heart failure chronic diastolic dysfunction presently not in acute exacerbation patient will be closely monitored for heart failure patient is presently getting IV fluids, will order a chest x-ray patient is bit Tachycardic today. Type 2 diabetes mellitus insulin-patient is hypoglycemic will discontinue Levemir and glimepiride -Obstructive sleep apnea next and-obesity -COPD without any acute exacerbation -History of nonsustained VT in the past -Gastroesophageal reflux disease -Hyperlipidemia
[2019-12-16 13:19] VITALS: BMI 28.8
--- NOTE | 2019-12-16 13:30 | P.PN ---
Progress Note - Text Progress Note Date: 12/16/19 Interval History: Patient was seen for psychiatric follow-up today regarding patient confusion and delirium. Patient's nurse states that patient is doing much better today and was up and walking around and currently sitting in his chair speaking with his . No overnight complaints from nurse. Patient was seen at the bedside and patient's wanted to speak with service writer outside. Patient's states that she believes patient is doing much better today and has been visiting him frequently checking on his progress. She states that he makes more sense now. She claimed that he was on several different medications which may haven't had interaction with him and he has been getting more and more confused over the past several months before coming into the hospital. Patient was sitting on the chair and was agreeable to speak to service writer. He appeared to be calm and appropriate today and claims that he was feeling scared when he was in the "confused state" and states that he is feeling at his baseline now. He claims that he does not have any depression or anxiety at this time. He states that he slept fairly last night and has been eating and walking today. Patient was asking about possible discharge. Director Process Engineering spoke with patient about his medications and the importance of limiting the FABRICATION MIG WELDER sedatives, anticholinergic medications and narcotics patient verbally understood and agreed. He was alert and oriented 3 today, he knows the current Pres and has a improved attention span. At this time patient denies any suicidal or homical ideations, intent or plan. Patient denies any auditory, visual hallucinations. Patient denies any side effects from the medications and has been compliant with meds. Mental Status Exam: General Appearance: Patient appears to be more awake, more directable today, cooperative. Improving hygiene and grooming. Wearing hospital gown. Behavior: Patient is more awake today, cooperative. Following commands. Speech: Patient's speech is clear today, fluent. Mood/Affect: Patient states his mood is "ok" and affect is constricted. Suicidality/Homicidality: Denies Perceptions: Not responding to internal stimuli today. Denies any auditory or visual hallucinations. Though content/process: [place], poverty of content. More logical, goal nichelle ented. Memory and concentration: Improved attention span, following more commands. Alert and oriented 3, knows who the current president is. Judgment and insight: improved Impression: Delirium, likely etiologies including medical condition (possibly CAROLYN?), medications (steroids and oipiods) Plan: -At this time patient DOES NOT meet criteria for inpatient psychiatric admission. -Delirium precautions recommended with patient including - avoiding use of narcotics and FABRICATION MIG WELDER sedatives, limit anticholinergic medications when possible, frequent re-orientation, minimize use of restraints, open window shades during the day and close them at night -Would recommend the following medication changes/additions: Continue with scheduled Seroquel to 50 mg daily at bedtime +25 mg daily. Spoke with patient and his about the narcotics, FABRICATION MIG WELDER sedatives and steroids that the patient was on which most likely contributed to/exacerbated patient's confusion and cause delirium. Psychoeducation was provided and patient was told to attempt to limit these medications and avoid them in the future if possible. -Psychiatry will sign off at this time. -Communicated plan to patient's nurse -Please contact with any questions.
[2019-12-16] MEDS: HYDROmorphone 0.5 MG/0.5 ML SYRINGE IVP PRN ×2 (14:58→22:25)
--- NOTE | 2019-12-16 15:14 | P.PN ---
Subjective Progress Note Date: 12/16/19 Patient was seen for a follow-up. Patient's was also present. Patient is doing wonderfully better. He is sitting in the recliner. Fully alert and oriented. States the back pain has much improved. He does complain of some blurred vision but no loss of vision. Patient underwent MRI of the thoracic and lumbar spine with and without contrast on 12/11/2019. MRI of the thoracic spine showed no obvious suspicious edema or enhancement to suggest discitis/acute osteomyelitis in the thoracic spine. MRI of the lumbar spine showed infectious process lower lumbar spinous informed with abnormal fluid and enhancement. No well-formed fluid collection or drainable abscess. Areas of discitisacute osteomyelitis likely present with the surrounding inflammatory change. Objective - Vital Signs Vital signs: Vital Signs Temp 98.4 F 12/16/19 07:00 Pulse 76 12/16/19 07:00 Resp 20 12/16/19 07:00 BP 142/67 12/16/19 07:00 Pulse Ox 98 12/16/19 07:00 Intake & Output 12/15/19 12/16/19 12/16/19 18:59 06:59 18:59 Intake Total 360 100 100 Output Total 1800 1600 1500 Balance -1440 -1500 -1400 Weight 96.388 kg Intake: Oral 360 100 100 Output: Urine 7443 [id number] 7635 Emesis 900 Other: Voiding Method Indwelling Catheter Indwelling Catheter # Voids 3 3 # Bowel Movements 1 - Exam Patient is alert and awake fully oriented to time place and person. Knows he is in [facility] in [facility] and that it is November 2019. Knows need of the current president. Speech and leg which function is a normal cranial nerves are normal. Muscle strength is normal in the arms and legs. Hip flexion is 4+ bilaterally. Reflexes symmetric and plantars are downgoing. No ataxia. Patient is less tremulous. Gait deferred. Sensations are equal. Mouth appears clear with no thrush. - Labs CBC & Chem 7: 12/16/19 06:11 12/16/19 06:11 Labs: Abnormal Lab Results - Last 24 Hours (Table) 12/15/19 12/15/19 12/15/19 Range/Units 16:35 20:49 21:29 RBC (4.30-5.90) m/uL Hgb (13.0-17.5) gm/dL Hct (39.0-53.0) % RDW (11.5-15.5) % Sodium (135-145) mmol/L Potassium (3.5-5.5) mmol/L Chloride (96-109) mmol/L BUN/Creatinine Ratio (12.00-20.00) Ratio POC Glucose (mg/dL) 306 H 263 H (75-99) mg/dL Calcium (8.7-10.3) mg/dL Urine Protein 1+ H (Negative) Urine Blood Large H (Negative) Ur Leukocyte Esterase Large H (Negative) Urine RBC 30 H (0-5) /hpf Urine WBC 45 H (0-5) /hpf Amorphous Sediment Rare H (None) /hpf Urine Mucus Rare H (None) /hpf IgG (700.0-1600.0) mg/dL IgM (40.0-280.0) mg/dL 12/16/19 12/16/19 12/16/19 Range/Units 06:11 06:11 06:11 RBC 2.62 L (4.30-5.90) m/uL Hgb 7.6 L (13.0-17.5) gm/dL Hct 24.4 L (39.0-53.0) % RDW 17.5 H (11.5-15.5) % Sodium 147 H (135-145) mmol/L Potassium 3.1 L (3.5-5.5) mmol/L Chloride 111 H (96-109) mmol/L BUN/Creatinine Ratio 23.75 H (12.00-20.00) Ratio POC Glucose (mg/dL) (75-99) mg/dL Calcium 8.2 L (8.7-10.3) mg/dL Urine Protein (Negative) Urine Blood (Negative) Ur Leukocyte Esterase (Negative) Urine RBC (0-5) /hpf Urine WBC (0-5) /hpf Amorphous Sediment (None) /hpf Urine Mucus (None) /hpf IgG 635.0 L (700.0-1600.0) mg/dL IgM <16.9 L (40.0-280.0) mg/dL 12/16/19 Range/Units 11:21 RBC (4.30-5.90) m/uL Hgb (13.0-17.5) gm/dL Hct (39.0-53.0) % RDW (11.5-15.5) % Sodium (135-145) mmol/L Potassium (3.5-5.5) mmol/L Chloride (96-109) mmol/L BUN/Creatinine Ratio (12.00-20.00) Ratio POC Glucose (mg/dL) 179 H (75-99) mg/dL Calcium (8.7-10.3) mg/dL Urine Protein (Negative) Urine Blood (Negative) Ur Leukocyte Esterase (Negative) Urine RBC (0-5) /hpf Urine WBC (0-5) /hpf Amorphous Sediment (None) /hpf Urine Mucus (None) /hpf IgG (700.0-1600.0) mg/dL IgM (40.0-280.0) mg/dL Microbiology - Last 24 Hours (Table) 12/11/19 06:30 Blood Culture - Preliminary Blood No Growth after 120 hours 12/09/19 17:38 Blood Culture Gram Stain - Final Blood Blood Culture - Final Alpha Hemolytic Streptococcus Diphtheroid species Assessment and Plan Assessment: * Altered mental status, due to toxic metabolic encephalopathy. Patient much improved. * Discitis/osteomyelitis lower lumbar spine. 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 Possible underlying diabetic neuropathy. * Recurrent back spasms, likely due to discitis osteomyelitis. Patient has history of back surgery in the past * Diabetes, not very well controlled, A1c 7.8. * Osteoarthritis Plan: * Patient's mentation has remarkably improved. Patient fully alert and awake, normally communicative. Agitation resolved. EEG is normal. No epileptiform activity seen. * Patient on antibiotics for discitis with osteomyelitis without specific epi dural abscess in the lower lumbar spine. Patient being treated conservatively, not a candidate for surgery as per orthopedic spine. Infectious disease also on board. * Continue Lyrica 75 mg twice a day. Does not appear to be in pain at this time. * Blood test shows B12 638, folate 8.0, B6 5, which is very borderline and FAROOQ antibodies came negative. * Serum protein electrophoresis and immune fixation electrophoresis revealed small monoclonal IgG Mcfarlan, measuring 0.07 g/dL identified. Consider hematology consultation for possible monoclonal gammopathy, rule out paraproteinemia. Repeat ESR 126 and CRP 39.5. Blood cultures grew gram- positive cocci in chains, alpha hemolytic streptococci. * MRI of the cervical spine showed no epidural abscess in the cervical spine. Cervical kyphosis centered at C5 6. Minimal grade 1 spondylolisthesis of C4 anteriorly on C5. Central focal disc bulge C5 6 with cord contact and some cord compromise. No stenosis. C4 5 disc bulging and endplate changes with mild anterior thecal sac flattening in the close approximation with the cord without deformity or stenosis. * 2-D echo showed normal left-ventricular size, mild concentric LVH. EF is 55- 60%. Interatrial and interventricular septum intact. Mild aortic valve sclerosis. Moderate pulmonary hypertension.
[2019-12-16] MEDS ORDERED: PRAMIPEXOLE 0.125 MG TAB PO SCH (16:00)
[2019-12-16 16:38] LABS: Glucose,Whole Blood 393 mg/dL (75-99)
--- NOTE | 2019-12-16 17:04 | EEG ---
ELECTROENCEPHALOGRAM REPORT DATE OF SERVICE: 12/16/2019 PREAMBLE: A 69-year-old male with delirium, agitation, altered mental status. This study is performed to rule out any epileptiform activity. EEG FINDINGS: This is a 21 channel routine EEG recording patient was utilizing 10-20 international system with referential and bipolar montages. The background consists of well developed, well regulated, moderate voltage activity in 8-9 hertz alpha. Background is posterior dominant and reactive to eye opening and closing. Photic driving response was not seen. Mild drowsiness was seen with appearance of bilaterally symmetric theta frequency rhythm. Deeper stages of sleep were not seen. No focal or generalized epileptiform activity was seen. EKG channel lead revealed no obvious arrhythmia. IMPRESSION: This is a normal awake and drowsy EEG. No focal, lateralized, or epileptiform activity was seen. MMODL / IJN: [id number] /
--- NOTE | 2019-12-16 17:07 | PN ---
PROGRESS NOTE DATE OF SERVICE: 12/16/2019 REASON FOR FOLLOWUP: L5 Streptococcus bacteremia and a question of lumbar discitis. INTERVAL COURSE: The patient is currently afebrile. The patient is fully awake and alert. He is feeling better. He knows he is in hospital. Denies having any chest pain. No cough. No nausea. No abdominal pain, no diarrhea. Did have some low back pain but no worsening. PHYSICAL EXAMINATION: Blood pressure is 133/66, pulse of 73, temperature 98.2. He is 98% on room air. General description is an elderly male, lying in bed in no distress. RESPIRATORY SYSTEM: Unlabored breathing, clear to auscultation anteriorly. HEART: S1, S2. Regular rate and rhythm. ABDOMEN: Soft, no tenderness. LABS: Hemoglobin 7.8, white count 9.2, BUN of 19, creatinine 0.8. Blood culture repeat has been negative so far. DIAGNOSTIC IMPRESSION AND PLAN: Patient with a final Streptococcus bacteremia in sputum admitted to the hospital with sepsis with concern for the possible lumbar osteo discitis, but no evidence of any abscess or need for surgical intervention at this point review of 2 spine surgeon. The patient is covered with cefazolin to continue outpatient for 6 weeks, weekly monitor CBC, BMP, sedimentation rate. His questions were answered. MMODL / IJN: [id number] /
[2019-12-16 18:06] LABS: % Iron Saturation 7.69 (15.00-50.00)
[2019-12-16] MEDS ORDERED: Potassium Replacement Protocol 1 EACH MISC MISCELLANE PRN (18:29)
[2019-12-16 19:11] LABS: Ferritin 850.3 ng/mL (22.0-322.0)
[2019-12-16] MEDS: POTASSIUM CHLORIDE ER 20 MEQ TAB.ER PO SCH ×2 (20:27→22:25)
[2019-12-16] MEDS: TAMSULOSIN 0.4 MG CAP.ER.24H PO SCH (20:27)
[2019-12-16] MEDS: ATORVASTATIN 80 MG TAB PO SCH (20:27)
[2019-12-16] MEDS: PRAMIPEXOLE 1 MG TAB PO SCH (20:28)
[2019-12-16 20:55] LABS: Glucose,Whole Blood 172 mg/dL (75-99)
[2019-12-16] MEDS ORDERED: QUEtiapine 50 MG TAB PO SCH (21:00)
--- NOTE | 2019-12-16 23:43 | P.CONS ---
History of Present Illness - Reason for Consult Consult date: 12/16/19 Possible MGUS Requesting physician: Mathew E Sheet - Chief Complaint AMS - History of Present Illness Mr. Morley is a very pleasant male we have lilian asked to evaluate as her was found to have IgM [place] monoclonal protein in peripheral blood. Pt has a history of chronic infection, he was admitted with AMS and aggression on12/08, he had T-max 102.8F, he has been seen by ID, Cardiology, Neurology. He was anemic on admit. Pt denied knowing any thing about "low blood", he does not recall ever having a transfusion, he has had decreased appetite, intermittent N ,V, and decreased activity due to increased/easy fatigue for the last 2-3 months. Denies knowledge of fevers, night sweats, sore throat, ear pain, cough, chest pain, abd pain, dysuria, hematuria, swelling in the legs, rashes, or bleeding. Review of Systems 14 point ROS is negative except as stated in HPI Past Medical History Past Medical History: Coronary Artery Disease (CAD), Chest Pain / Angina, Heart Failure, COPD, Deep Vein Thrombosis (DVT), GERD/Reflux, Hyperlipidemia, Hypertension, Osteoarthritis (OA), Pneumonia, Prostate Disorder, Respiratory Disorder, Sleep Apnea/CPAP/BIPAP Additional Past Medical History / Comment(s): Pt recently admitted to [facility] on 11/03/19 with fever/cervical and back pain, sepsis unknown source/urinary retention with IDC. Other hx: Spouse states pt has been febrile/neck pain since August 2019 with admits to [facility] and [facility], had picc line at [facility] with DVT R arm/sepsis d/t bilateral lower leg cellulitis, venous insufficiency/lower leg edema, spondylolsis, cervical and low back pain, DDD, chronic respiratory failure, CALLI with Cpap/O2 at 4L/NC at , nonsustained vtach, TIAs, small vessel disease, IDDM type II, BPH, diverticular disease, colon polyps-benign, sinus problems, seasonal allergies History of Any Multi-Drug Resistant Organisms: None Reported Past Surgical History: Back Surgery, Heart Catheterization With Stent, Joint Replacement, Orthopedic Surgery Additional Past Surgical History / Comment(s): Bilateral knee arthroscopies, total L knee arthroplasty, R total shoulder arthroplasty, L hand injury with repair, low back surgery, PCI with 3 stents, colonoscopies/polypectomies, lumbar epidural injections, bilateral cataract removals/lens implants. Past Anesthesia/Blood Transfusion Reactions: No Reported Reaction Additional Past Anesthesia/Blood Transfusion Reaction / Comm: STATES "HAD A HARD TIME WITH BREATHING POST OP" Date of Last Stent Placement:: 2009 Past Psychological History: No Psychological Hx Reported Additional Psychological History / Comment(s): Pt currently at [facility]. He states he in bed or staff gets him up into wheelchair. He has an IDC. Pt served in the [employer]. Smoking Status: Former smoker Past Alcohol Use History: None Reported Additional Past Alcohol Use History / Comment(s): QUIT SMOKING IN 2009, STARTED 1962, SMOKED 2 PPD Past Drug Use History: None Reported - Past Family History Father Family Medical History: CVA/TIA, Hyperlipidemia, Hypertension Mother Family Medical History: Hypertension Medications and Allergies Home Medications Medication Instructions Recorded Confirmed Type Nitroglycerin Sl Tabs [Nitrostat] 0.4 mg SL Q5M PRN 03/09/14 12/09/19 History Atorvastatin [Lipitor] 80 mg PO HS 05/08/15 12/09/19 History Fluticasone/Vilanterol [Breo 1 puff INHALATION RT-HS 03/12/18 12/09/19 History Ellipta 100-25 Mcg Inhaler] Potassium Chloride ER [K-Dur 20] 20 meq PO BID #0 03/15/18 12/09/19 Rx Ipratropium-Albuterol Nebulize 3 ml INHALATION RT-QID PRN 09/02/19 12/09/19 History [Duoneb 0.5 mg-3 mg/3 ml Soln] Metoprolol Tartrate 25 mg PO BID 09/02/19 12/09/19 History Pramipexole Di-HCl [Mirapex] 1 mg PO HS 09/02/19 12/09/19 History Apixaban [Eliquis] 5 mg PO Q12H 11/01/19 12/09/19 History Ketoconazole [Ketoconazole 2% 1 applic TOPICAL Q72H 11/01/19 12/09/19 History Shampoo] QUEtiapine [SEROquel] 25 mg PO HS tab 11/17/19 12/09/19 Rx Omeprazole 20 mg PO AC-BRKFST 11/23/19 12/09/19 History Tamsulosin [Flomax] 0.4 mg PO HS 11/23/19 12/09/19 History Aspirin EC [Ecotrin Low Dose] 81 mg PO DAILY 12/09/19 12/09/19 History Baclofen 10 mg PO Q8H 12/09/19 12/09/19 History Furosemide [Lasix] 20 mg PO BID 12/09/19 12/09/19 History Glimepiride [Amaryl] 2 mg PO AC-BRKFST 12/09/19 12/09/19 History Insulin Glargine,Hum.rec.anlog 50 unit SQ HS 12/09/19 12/09/19 History [Lantus Solostar] Magnesium Oxide [Mag-Ox] 400 mg PO DAILY 12/09/19 12/09/19 History Sennosides/Docusate Sodium [Senna 1 cap PO DAILY 12/09/19 12/09/19 History Plus 8.6-50 mg Softgel] hydrOXYzine HCL [Atarax] 25 mg PO Q6H 12/09/19 12/09/19 History oxyCODONE-APAP 7.5-325MG [Percocet 1 tab PO Q6H PRN 12/09/19 12/09/19 History 7.5-325 mg] predniSONE [Deltasone] 20 mg PO DAILY 12/09/19 12/09/19 History Allergies Allergy/AdvReac Type Severity Reaction Status Date / Time acetaminophen [From Tylenol] AdvReac kidney/liver Verified 12/09/19 19:09 issues prednisone AdvReac Extreme Verified 12/09/19 16:30 aggression with high doses Physical Exam Vitals: Vital Signs Temp Pulse Pulse Pulse Resp BP BP 12/16/19 07:00 98.4 F 76 20 142/67 12/16/19 01:05 98.9 F 69 22 134/65 12/15/19 20:38 98.4 F 73 20 172/85 12/15/19 19:23 98.4 F 65 22 164/76 12/15/19 14:47 99.1 F 102 H 22 146/74 12/15/19 13:10 80 12/15/19 13:01 90 Pulse Ox 12/16/19 07:00 98 12/16/19 01:05 99 12/15/19 20:38 98 12/15/19 19:23 97 12/15/19 14:47 97 12/15/19 13:10 12/15/19 13:01 Intake and Output 12/15/19 12/16/19 12/16/19 22:59 06:59 14:59 Intake Total 100 Output Total 3200 200 1500 Balance -3100 -200 -1500 Intake: Oral 100 Output: Urine 2300 200 1500 Emesis 900 Other: Voiding Method Indwelling Catheter # Bowel Movements 1 - Constitutional General appearance: cooperative, no acute distress, obese - EENT red mucus membranes and tongue Eyes: anicteric sclerae, EOMI, poor dentition ENT: hearing grossly normal - Neck Neck: no lymphadenopathy - Cardiovascular Heart sounds: normal: S1, S2 Abnormal Heart Sounds: no systolic murmur, no diastolic murmur, no rub, no S3 Gallop, no S4 Gallop, no click, no other leg Peripheral Edema: bilateral: None - Gastrointestinal General gastrointestinal: no absent bowel sounds, no decreased bowel sounds, no distended, no hepatomegaly, no hyperactive bowel sounds, normal bowel sounds, no organomegaly, no rigid, no scaphoid, soft, no splenomegaly, no tenderness, no umbilical hernia, no ventral hernia - Integumentary Integumentary: pale - Neurologic Neurologic: CNII-XII intact - Musculoskeletal Musculoskeletal: generalized weakness - Psychiatric Psychiatric: A&O x's 3, appropriate affect, intact judgment & insight Results CBC & Chem 7: 12/16/19 06:11 12/16/19 06:11 Labs: Abnormal Lab Results - Last 24 Hours (Table) 12/15/19 12/15/19 12/15/19 Range/Units 16:35 20:49 21:29 RBC (4.30-5.90) m/uL Hgb (13.0-17.5) gm/dL Hct (39.0-53.0) % RDW (11.5-15.5) % Sodium (135-145) mmol/L Potassium (3.5-5.5) mmol/L Chloride (96-109) mmol/L BUN/Creatinine Ratio (12.00-20.00) Ratio POC Glucose (mg/dL) 306 H 263 H (75-99) mg/dL Calcium (8.7-10.3) mg/dL Urine Protein 1+ H (Negative) Urine Blood Large H (Negative) Ur Leukocyte Esterase Large H (Negative) Urine RBC 30 H (0-5) /hpf Urine WBC 45 H (0-5) /hpf Amorphous Sediment Rare H (None) /hpf Urine Mucus Rare H (None) /hpf IgG (700.0-1600.0) mg/dL IgM (40.0-280.0) mg/dL 12/16/19 12/16/19 12/16/19 Range/Units 06:11 06:11 06:11 RBC 2.62 L (4.30-5.90) m/uL Hgb 7.6 L (13.0-17.5) gm/dL Hct 24.4 L (39.0-53.0) % RDW 17.5 H (11.5-15.5) % Sodium 147 H (135-145) mmol/L Potassium 3.1 L (3.5-5.5) mmol/L Chloride 111 H (96-109) mmol/L BUN/Creatinine Ratio 23.75 H (12.00-20.00) Ratio POC Glucose (mg/dL) (75-99) mg/dL Calcium 8.2 L (8.7-10.3) mg/dL Urine Protein (Negative) Urine Blood (Negative) Ur Leukocyte Esterase (Negative) Urine RBC (0-5) /hpf Urine WBC (0-5) /hpf Amorphous Sediment (None) /hpf Urine Mucus (None) /hpf IgG 635.0 L (700.0-1600.0) mg/dL IgM <16.9 L (40.0-280.0) mg/dL 12/16/19 Range/Units 11:21 RBC (4.30-5.90) m/uL Hgb (13.0-17.5) gm/dL Hct (39.0-53.0) % RDW (11.5-15.5) % Sodium (135-145) mmol/L Potassium (3.5-5.5) mmol/L Chloride (96-109) mmol/L BUN/Creatinine Ratio (12.00-20.00) Ratio POC Glucose (mg/dL) 179 H (75-99) mg/dL Calcium (8.7-10.3) mg/dL Urine Protein (Negative) Urine Blood (Negative) Ur Leukocyte Esterase (Negative) Urine RBC (0-5) /hpf Urine WBC (0-5) /hpf Amorphous Sediment (None) /hpf Urine Mucus (None) /hpf IgG (700.0-1600.0) mg/dL IgM (40.0-280.0) mg/dL Microbiology - Last 24 Hours (Table) 12/11/19 06:30 Blood Culture - Preliminary Blood No Growth after 120 hours 12/09/19 17:38 Blood Culture Gram Stain - Final Blood Blood Culture - Final Alpha Hemolytic Streptococcus Diphtheroid species Comments: ECHO report reviewed Chest x-ray: report reviewed Assessment and Plan (1) Monoclonal gammopathy Current Visit: Yes Status: Acute Priority: High Code(s): D47.2 - MONOCLONAL GAMMOPATHY SNOMED Code(s): 245125285 (2) Normocytic anemia Current Visit: Yes Status: Acute Priority: High Code(s): D64.9 - ANEMIA, UNSPECIFIED SNOMED Code(s): 198330305 Plan: Anemia is of new onset-first documented in this medical record end of September 2019. A 0.07g/dl IgG kappa monoclonal protein found. Unclear if r/t chronic inflammation and recent infections Mult labs ordered for anemia and monoclonal gammapathy. Have requested 24 hour urine for ligh chains and protein electrophoresis. Transfuse for Hgb<7.
[2019-12-17 07:00] LABS: Anisocytosis Slight; Basophils % (A) 0 %; Eosinophils # (A) 0.5 k/uL (0-0.7); Eosinophils % (A) 6 %; HCT 26.2 % (39.0-53.0); HGB 7.7 gm/dL (13.0-17.5); Hypochromasia Moderate; Lymphocytes # (A) 1.8 k/uL (1.0-4.8); Lymphocytes % (A) 23 %; MCH 27.8 pg (25.0-35.0); MCHC 29.5 g/dL (31.0-37.0); MCV 94.2 fL (80.0-100.0); Mean Platelet Volume 9.4; Monocytes # (A) 0.3 k/uL (0-1.0); Monocytes % (A) 4 %; Neutrophils # (A) 5.2 k/uL (1.3-7.7); Neutrophils % (A) 66 %; Platelet Count 226 k/uL (150-450); RBC 2.78 m/uL (4.30-5.90); RDW 17.7 % (11.5-15.5); WBC 7.8 k/uL (3.8-10.6)
[2019-12-17 07:01] LABS: Glucose,Whole Blood 71 mg/dL (75-99)
[2019-12-17] MEDS: PANTOPRAZOLE 40 MG TABLET PO SCH (07:40)
[2019-12-17] MEDS: FUROSEMIDE 10 MG/ML 4 ML VIAL IV SCH (09:08)
[2019-12-17] MEDS: ASPIRIN 81 MG PO SCH (09:15)
[2019-12-17] MEDS: MAGNESIUM OXIDE 400 MG TAB PO SCH (09:20)
[2019-12-17] MEDS: QUEtiapine 25 MG TAB PO SCH (09:20)
[2019-12-17] MEDS: PREGABALIN 75 MG CAP PO SCH (09:20)
[2019-12-17] MEDS: METOPROLOL TARTRATE 50 MG TAB PO SCH (09:20)
[2019-12-17] MEDS: KETOCONAZOLE 2% SHAMPOO 1 APPLIC/ML TOPICAL SCH (09:21)
[2019-12-17] MEDS: predniSONE 20 MG TAB PO SCH (09:21)
[2019-12-17] MEDS: HYDROmorphone 0.5 MG/0.5 ML SYRINGE IVP PRN ×2 (09:24→12:27)
[2019-12-17 09:29] LABS: Free Kappa Lt Chain Qnt, Urine 4.51 mg/dL (0.140-2.420); Free Lambda Lt Chain Qt, Urine 0.854 mg/dL (0.020-0.670)
[2019-12-17] MEDS ORDERED: LIDOCAINE 1% INJ 10MG/ML (20 ML MDV) ONE (11:16)
[2019-12-17 11:20] LABS: African American GFR (CKD) 104.9 (60.0-200.0); Anion Gap 8.3 mmol/L (4.00-12.00); BUN/Creat Ratio 22.5 Ratio (12.00-20.00); Calcium 8.4 mg/dL (8.7-10.3); Carbon Dioxide 29.7 mmol/L (21.6-31.8); Non-African American GFR(CKD) 90.5 (60.0-200.0); Potassium 3.9 mmol/L (3.5-5.5)
[2019-12-17] MEDS: SYMBICORT 80-4.5 MCG INHALER INHALATION SCH ×2 (11:30→20:05)
[2019-12-17 11:36] LABS: ANA Pattern See Footnote
[2019-12-17] MEDS ORDERED: LIDOCAINE 1% INJ 10MG/ML (20 ML MDV) SQ ONE (11:47)
[2019-12-17 12:17] LABS: Glucose,Whole Blood 109 mg/dL (75-99)
--- NOTE | 2019-12-17 12:42 | IR ---
EXAMINATION TYPE: IR cvc insert >=5 years DATE OF EXAM: 12/17/2019 COMPARISON: NONE CLINICAL HISTORY: Need for long-term antibiotics, infection [employer] ASSEMBLER: Dr. Toña Diaz PROCEDURE: The procedure was discussed with the patient. The risks, complications, benefits, and alternatives we re discussed and any questions were answered. Informed consent was obtained. The patient was placed supine. Maximal barrier technique utilized. After informed consent, the skin o verlying the left basilic vein was localized with ultrasound and noted to be compressible and patent. An ultrasound image was obtained and submitted on the patient's chart. Sterile technique utilized w ith the ultrasound machine. The skin overlying was prepped and draped and Lidocaine used for local an esthesia. Access was gained to the vein under ultrasound guidance with a 21 gauge needle and a 0.018 inch wire was advanced. A skin edy was made with a scalpel. Access site was dilated with Peel-Away s kavitha. 4 FR single lumen catheter tailored to the appropriate length of 47 cm and advanced such that the distal tip is at the cavoatrial junction. Spot image was obtained verifying PICC placement. Julissa ter was fixed to the skin and a sterile dressing was placed following hemostasis. Catheter was aspira michael and flushed with saline. Patient was discharged from the radiology department in stable condition without immediate complication. Fluoro time: 2.0 minutes Fluoroscopic images obtained: 27 IMPRESSION: Status post ultrasound-guided and fluoroscopic-guided PICC placement, ready for use.
--- NOTE | 2019-12-17 14:26 | P.PN ---
Subjective Progress Note Date: 12/17/19 Principal diagnosis: Anemia, Mental Status Changes No acute complaints or events over night Objective - Vital Signs Vital signs: Vital Signs Temp 97.7 F 12/17/19 07:20 Pulse 57 L 12/17/19 01:20 Resp 18 12/17/19 08:00 BP 160/69 12/17/19 07:20 Pulse Ox 98 12/17/19 07:20 Intake & Output 12/16/19 12/17/19 12/17/19 18:59 06:59 18:59 Intake Total 100 Output Total 2199 925 1999 Balance -2099 Weight 96.388 kg Intake: Oral 100 Output: Urine 2199 Other: Voiding Method Indwelling Catheter Indwelling Catheter # Voids 3 - Exam - Constitutional General appearance: cooperative, no acute distress, obese - EENT red mucus membranes and tongue Eyes: anicteric sclerae, EOMI, poor dentition ENT: hearing grossly normal - Neck Neck: no lymphadenopathy - Cardiovascular Heart sounds: normal: S1, S2 Abnormal Heart Sounds: no systolic murmur, no diastolic murmur, no rub, no S3 Gallop, no S4 Gallop, no click, no other leg Peripheral Edema: bilateral: None - Gastrointestinal General gastrointestinal: no absent bowel sounds, no decreased bowel sounds, no distended, no hepatomegaly, no hyperactive bowel sounds, normal bowel sounds, no organomegaly, no rigid, no scaphoid, soft, no splenomegaly, no tenderness, no umbilical hernia, no ventral hernia - Integumentary Integumentary: pale - Neurologic Neurologic: CNII-XII intact - Musculoskeletal Musculoskeletal: generalized weakness - Psychiatric Psychiatric: A&O x's 3, appropriate affect, intact judgment & insight - Labs CBC & Chem 7: 12/17/19 06:44 12/17/19 06:44 Labs: Abnormal Lab Results - Last 24 Hours (Table) 12/14/19 12/14/19 12/14/19 Range/Units 12:14 12:14 12:14 RBC (4.30-5.90) m/uL Hgb (13.0-17.5) gm/dL Hct (39.0-53.0) % MCHC (31.0-37.0) g/dL RDW (11.5-15.5) % Haptoglobin 491.0 H (31.2-198.0) mg/dL Sodium (135-145) mmol/L BUN/Creatinine Ratio (12.00-20.00) Ratio POC Glucose (mg/dL) (75-99) mg/dL Calcium (8.7-10.3) mg/dL Iron 14 L (65-175) ug/dL TIBC 182 L (228-460) ug/dL % Saturation 7.69 L (15.00-50.00) Ferritin 850.3 H (22.0-322.0) ng/mL Lactate Dehydrogenase 384 H (120-246) U/L U Free [place] Ch (0.140-2.420) mg/dL U Free [place] Ch (0.020-0.670) mg/dL SARATH Screen POSITIVE H (NEGATIVE) 12/16/19 12/16/19 12/16/19 Range/Units 13:00 16:36 20:52 RBC (4.30-5.90) m/uL Hgb (13.0-17.5) gm/dL Hct (39.0-53.0) % MCHC (31.0-37.0) g/dL RDW (11.5-15.5) % Haptoglobin (31.2-198.0) mg/dL Sodium (135-145) mmol/L BUN/Creatinine Ratio (12.00-20.00) Ratio POC Glucose (mg/dL) 393 H 172 H (75-99) mg/dL Calcium (8.7-10.3) mg/dL Iron (65-175) ug/dL TIBC (228-460) ug/dL % Saturation (15.00-50.00) Ferritin (22.0-322.0) ng/mL Lactate Dehydrogenase (120-246) U/L U Free [place] Ch 4.510 H (0.140-2.420) mg/dL U Free [place] Ch 0.854 H (0.020-0.670) mg/dL SARATH Screen (NEGATIVE) 12/17/19 12/17/19 12/17/19 Range/Units 06:44 06:44 06:59 RBC 2.78 L (4.30-5.90) m/uL Hgb 7.7 L (13.0-17.5) gm/dL Hct 26.2 L (39.0-53.0) % MCHC 29.5 L (31.0-37.0) g/dL RDW 17.7 H (11.5-15.5) % Haptoglobin (31.2-198.0) mg/dL Sodium 146 H (135-145) mmol/L BUN/Creatinine Ratio 22.50 H (12.00-20.00) Ratio POC Glucose (mg/dL) 71 L (75-99) mg/dL Calcium 8.4 L (8.7-10.3) mg/dL Iron (65-175) ug/dL TIBC (228-460) ug/dL % Saturation (15.00-50.00) Ferritin (22.0-322.0) ng/mL Lactate Dehydrogenase (120-246) U/L U Free [place] Ch (0.140-2.420) mg/dL U Free [place] Ch (0.020-0.670) mg/dL SARATH Screen (NEGATIVE) 12/17/19 Range/Units 12:17 RBC (4.30-5.90) m/uL Hgb (13.0-17.5) gm/dL Hct (39.0-53.0) % MCHC (31.0-37.0) g/dL RDW (11.5-15.5) % Haptoglobin (31.2-198.0) mg/dL Sodium (135-145) mmol/L BUN/Creatinine Ratio (12.00-20.00) Ratio POC Glucose (mg/dL) 109 H (75-99) mg/dL Calcium (8.7-10.3) mg/dL Iron (65-175) ug/dL TIBC (228-460) ug/dL % Saturation (15.00-50.00) Ferritin (22.0-322.0) ng/mL Lactate Dehydrogenase (120-246) U/L U Free [place] Ch (0.140-2.420) mg/dL U Free [place] Ch (0.020-0.670) mg/dL SARATH Screen (NEGATIVE) Microbiology - Last 24 Hours (Table) 12/11/19 06:30 Blood Culture - Final Blood No Growth after 144 hours Assessment and Plan (1) Monoclonal gammopathy Current Visit: Yes Status: Acute Priority: High Code(s): D47.2 - MONOCLONAL GAMMOPATHY SNOMED Code(s): 083367896 (2) Normocytic anemia Current Visit: Yes Status: Acute Priority: High Code(s): D64.9 - ANEMIA, UNSPECIFIED SNOMED Code(s): 988301685 Plan: Assessment and recommendations: MGUS - Monoclonal Gammopathy of Unknown Significance: - Work-up is pending - 24 hour urine for FLC and Protein Electrophoresis Pending Normocytic Anemia: - Autoimmune Panel is Positive - Anemia of Chronic Inflammation likely exacerbated by acute infection PLan: - Recommend follow-up with Dr. An in 2-3 weeks after discharge to allow time for treatment of underlying infection and re-evaluation of anemia and monoclonal gammopathy - Plan to follow-up with Rheumatology as outpatient - 24 hour urine not done prior to discharge a prescription and equipment will be given to patient, discussed with nursing and patient - OK for discharge from oncology standpoint Physician Attest: I have completed the full history and physical and agree with above dictation, dictated as a scribe
[2019-12-17] MEDS ORDERED: HYDROcodone/APAP 5-325MG 1 EACH TAB PO PRN (15:02)
[2019-12-17 15:04] VITALS: BP 140/61; PULSE 61; RESP 20; TEMP 98.2
--- NOTE | 2019-12-17 15:47 | PN ---
PROGRESS NOTE DATE OF SERVICE: 12/17/2019 REASON FOR FOLLOWUP: Alpha hemolytic Streptococcus bacteremia with possible lumbar osteodiscitis. INTERVAL HISTORY: The patient is currently afebrile. The patient is feeling better, breathing comfortably. Denies having any chest pain or shortness of breath or cough. No nausea or vomiting or abdominal pain. Some back pain after he did have the PICC line. PHYSICAL EXAMINATION: Blood pressure 140/61 with a pulse of 61, temperature 98.2. He is 94% on room air. General description is an elderly male up in the chair in no distress. RESPIRATORY SYSTEM: Unlabored breathing. Clear to auscultation anteriorly. HEART: S1, S2. Regular rate and rhythm. ABDOMEN: Soft. No tenderness. LABS: Hemoglobin 7.7, white count 7.8. BUN of 18, creatinine 0.8. Blood culture repeat has been negative. DIAGNOSTIC IMPRESSION AND PLAN: Patient admitted to hospital with sepsis in this patient who did have fever, elevated white count on presentation, did have evidence alpha hemolytic Streptococcus bacteremia. Follow-up blood cultures have been negative with evidence of osteodiscitis of the lumbosacral spine. No surgical intervention per two spine surgeons. The patient seems to have shown clinical response to cefazolin 2 grams q.8 hours, which will be continued for a total of 6 weeks with weekly monitoring of CBC, BMP and sedimentation rate and close outpatient followup. The patient was at the bedside; questions were answered. MMODL / SHAWNN: [id number] /
--- NOTE | 2019-12-17 19:42 | P.PN ---
Subjective Progress Note Date: 12/17/19 Patient was seen for a follow-up. Patient is doing wonderfully better. He is sitting in the recliner. Fully alert and oriented. States the back pain has much improved. Patient states if he is not moving, the pain is 3/10, but if he moves it goes up to 6/10. Remarkably better how it was before arrival. Patient underwent MRI of the thoracic and lumbar spine with and without contrast on 12/11/2019. MRI of the thoracic spine showed no obvious suspicious edema or enhancement to suggest discitis/acute osteomyelitis in the thoracic spine. MRI of the lumbar spine showed infectious process lower lumbar spinous informed with abnormal fluid and enhancement. No well-formed fluid collection or drainable abscess. Areas of discitisacute osteomyelitis likely present with the surrounding inflammatory change. Objective - Vital Signs Vital signs: Vital Signs Temp 98.2 F 12/17/19 15:00 Pulse 61 12/17/19 16:20 Resp 20 12/17/19 16:20 BP 140/61 12/17/19 15:00 Pulse Ox 94 L 12/17/19 15:00 Intake & Output 12/17/19 12/17/19 12/18/19 06:59 18:59 06:59 Output Total 925 2000 Balance -925 -2000 Output: Urine 925 2000 Other: Voiding Method Indwelling Catheter Indwelling Catheter - Exam Patient is alert and awake fully oriented to time place and person. Knows he is in [facility] in [facility] and that it is November 2019. Knows need of the current president. Speech and leg which function is a normal cranial nerves are normal. Muscle strength is normal in the arms and legs. Hip flexion is 4+ bilaterally. Reflexes symmetric and plantars are downgoing. No ataxia. Patient is less tremulous. Gait deferred. Sensations are equal. Mouth appears clear with no thrush. patient has a retained urinary catheter. - Labs CBC & Chem 7: 12/17/19 06:44 12/17/19 06:44 Labs: Abnormal Lab Results - Last 24 Hours (Table) 12/14/19 12/16/19 12/16/19 Range/Units 12:14 06:11 13:00 RBC (4.30-5.90) m/uL Hgb (13.0-17.5) gm/dL Hct (39.0-53.0) % MCHC (31.0-37.0) g/dL RDW (11.5-15.5) % Haptoglobin 491.0 H (31.2-198.0) mg/dL Sodium (135-145) mmol/L BUN/Creatinine Ratio (12.00-20.00) Ratio POC Glucose (mg/dL) (75-99) mg/dL Calcium (8.7-10.3) mg/dL RBC Folate 1,282 H (280 - 791) ng/mL U Free [place] Light Ch 4.510 H (0.140-2.420) mg/dL U Free [place] Ch 0.854 H (0.020-0.670) mg/dL 12/16/19 12/17/19 12/17/19 Range/Units 20:52 06:44 06:44 RBC 2.78 L (4.30-5.90) m/uL Hgb 7.7 L (13.0-17.5) gm/dL Hct 26.2 L (39.0-53.0) % MCHC 29.5 L (31.0-37.0) g/dL RDW 17.7 H (11.5-15.5) % Haptoglobin (31.2-198.0) mg/dL Sodium 146 H (135-145) mmol/L BUN/Creatinine Ratio 22.50 H (12.00-20.00) Ratio POC Glucose (mg/dL) 172 H (75-99) mg/dL Calcium 8.4 L (8.7-10.3) mg/dL RBC Folate (280 - 791) ng/mL U Free [place] Light Ch (0.140-2.420) mg/dL U Free [place]ambda Light Ch (0.020-0.670) mg/dL 12/17/19 12/17/19 Range/Units 06:59 12:17 RBC (4.30-5.90) m/uL Hgb (13.0-17.5) gm/dL Hct (39.0-53.0) % MCHC (31.0-37.0) g/dL RDW (11.5-15.5) % Haptoglobin (31.2-198.0) mg/dL Sodium (135-145) mmol/L BUN/Creatinine Ratio (12.00-20.00) Ratio POC Glucose (mg/dL) 71 L 109 H (75-99) mg/dL Calcium (8.7-10.3) mg/dL RBC Folate (280 - 791) ng/mL U Free [place] Light Ch (0.140-2.420) mg/dL U Free Lambda Light Ch (0.020-0.670) mg/dL Microbiology - Last 24 Hours (Table) 12/11/19 06:30 Blood Culture - Final Blood No Growth after 144 hours Assessment and Plan Assessment: * Altered mental status, due to toxic metabolic encephalopathy. Patient much improved. * Discitis/osteomyelitis lower lumbar spine. 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 Possible underlying diabetic neuropathy. * Recurrent back spasms, likely due to discitis osteomyelitis. Patient has history of back surgery in the past * Diabetes, not very well controlled, A1c 7.8. * Osteoarthritis Plan: * Patient's mentation is back to normal. Patient fully alert and awake, normally communicative. Agitation resolved. EEG is normal. No epileptiform activity seen. * patient's back pain is much better. Patient on antibiotics for discitis with osteomyelitis without specific epidural abscess in the lower lumbar spine. Patient being treated conservatively, not a candidate for surgery as per orthopedic spine. Infectious disease also on board. * Continue Lyrica 75 mg twice a day. Does not appear to be in pain at this time. * Blood test shows B12 638, folate 8.0, B6 5, which is very borderline and FAROOQ antibodies came negative. * Serum protein electrophoresis and immune fixation electrophoresis revealed small monoclonal IgG [place], measuring 0.07 g/dL identified. Consider hematology consultation for possible monoclonal gammopathy, rule out paraproteinemia. Repeat ESR 126 and CRP 39.5. Blood cultures grew gram- positive cocci in chains, alpha hemolytic streptococci. * MRI of the cervical spine showed no epidural abscess in the cervical spine. Cervical kyphosis centered at C5 6. Minimal grade 1 spondylolisthesis of C4 anteriorly on C5. Central focal disc bulge C5 6 with cord contact and some cord compromise. No stenosis. C4 5 disc bulging and endplate changes with mild anterior thecal sac flattening in the close approximation with the cord without deformity or stenosis. * 2-D echo showed normal left-ventricular size, mild concentric LVH. EF is 55- 60%. Interatrial and interventricular septum intact. Mild aortic valve sclerosis. Moderate pulmonary hypertension. * Neurology will sign off.
--- NOTE | 2019-12-17 22:59 | P.DS ---
Providers Date of admission: 12/09/19 18:12 Attending physician: Isabell Huertas Consults: 12/09/19 18:12 Consult Physician Routine Consulting Provider: Arvin King Consult Reason/Comments: Agitated delirium, altered mental status Do you want consulting provider notified?: Yes 12/10/19 17:38 Consult Physician Routine Consulting Provider: Haritha Yap Consult Reason/Comments: positive blood cultures Do you want consulting provider notified?: Yes 12/12/19 13:03 Consult Physician Routine Consulting Provider: Trae Claudio Consult Reason/Comments: lumbar discitis/abscess Do you want consulting provider notified?: Yes 12/13/19 05:48 Consult Physician Urgent Consulting Provider: Maurizio Sandoval Consult Reason/Comments: runs of vtach Do you want consulting provider notified?: Yes, Notify in am 12/13/19 12:49 Consult Physician Routine Consulting Provider: Sai Calix Consult Reason/Comments: agitation Do you want consulting provider notified?: Yes 12/15/19 19:45 Consult Physician Routine Consulting Provider: Spencer An Consult Reason/Comments: Possible monoclonal gammopathy Do you want consulting provider notified?: Yes Primary care physician: Rk Keene Hospital Course: Diagnoses: -Severe sepsis secondary to discitis of the lumbar spine with streptococcal bacteremia. -Combined toxic and Metabolic encephalopathy, improved and patient is back to his basal mental status -Chronic back and neck pain -Recent the right upper extremity DVT . Patient is on Eliquis -Congestive heart failure chronic diastolic dysfunction -Type 2 diabetes mellitus with diabetic neuropathy -Obstructive sleep apnea next and-obesity -COPD without any acute exacerbation -History of nonsustained VT in the past -Gastroesophageal reflux disease -Hyperlipidemia Hospital course: 69-year-old pleasant male with past medical history of mixed connective tissue disorder in [facility]. And other multiple medical problems as below. He is a patient of Dr. Keene. Patient has been having significant back pain. Associated with fever and confusion. Patient found to have acute osteomyelitis and discitis of the lower lumbar spine with positive wound culture for streptococcus. Infectious disease evaluated the patient and start him on cefazolin, orthopedic spine recommended no surgical intervention and tenderness and he recommended TLSO back brace provided for the patient and it was at bed side prior to Discharge. patient showed interval improvement and his confusion significantly improved. Neurologist evaluated the patient and cleared him for discharge with his improvement mostly it was secondary to his genital medical problems and infection. His confusion is better controlled with Seroquel added by psychiatrist. Physical therapist evaluated the patient and recommended subacute rehab however patient declined and preferred to go home with home health care, also refused rehab for the patient Patient is fit for discharge by all consultants including infectious disease, neurologist, orthopedic, psychiatrist and skein winding operator Patient will be discharged on 6 weeks of cefazolin x 6 weeks as per ID team recommendation with weekly labs, PICC line is in place. Also patient will be discharged on Finch catheter and instructed to follow up with his urologist Dr. Neely as an outpatient and he agrees to call and make appointment Problems and management plan were discussed with the patient and he verbalized understanding and acceptance Patient was found stable and can be discharged home however he needs follow-up as an outpatient. Patient was instructed to follow up with PCP within one week and patient agrees with the appointments made for him with GUIDE [facility] Allyson on 12/[address] Harrison on 12/[address] Foreman on 12/30 and infectious disease doctor dylan on 01/10 and states he will follow-up. Patient will make his appointment with urologist Gen: patient is a AAOx3, no distress CVS: S1-S2, RRR, no murmur Lungs: B/L CTA, no wheezing Abdomen: soft, no distention, no tenderness, positive bowel sounds Extremity: no leg edema or induration Time spent more than 35 minutes Patient Condition at Discharge: Stable Plan - Discharge Summary Discharge Rx Participant: No New Discharge Prescriptions: New ceFAZolin [Kefzol] 2 gm IVP Q8HR #126 vial Metoprolol Tartrate [Lopressor] 50 mg PO BID #60 tab Pregabalin [Lyrica] 75 mg PO BID #60 cap QUEtiapine [SEROquel] 25 mg PO BID #60 tab HYDROcodone/APAP 5-325MG [[place] 5-325] 1 each PO Q6HR PRN #12 tab PRN Reason: Pain Continue Nitroglycerin Sl Tabs [Nitrostat] 0.4 mg SL Q5M PRN PRN Reason: Chest Pain Atorvastatin [Lipitor] 80 mg PO HS Fluticasone/Vilanterol [Breo Ellipta 100-25 Mcg Inhaler] 1 puff INHALATION RT-HS Potassium Chloride ER [K-Dur 20] 20 meq PO BID #0 Pramipexole Di-HCl [Mirapex] 1 mg PO HS Ipratropium-Albuterol Nebulize [Duoneb 0.5 mg-3 mg/3 ml Soln] 3 ml INHALATION RT-QID PRN PRN Reason: Shortness Of Breath Apixaban [Eliquis] 5 mg PO Q12H Ketoconazole [Ketoconazole 2% Shampoo] 1 applic TOPICAL Q72H QUEtiapine [SEROquel] 25 mg PO HS tab Omeprazole 20 mg PO AC-BRKFST Tamsulosin [Flomax] 0.4 mg PO HS Sennosides/Docusate Sodium [Senna Plus 8.6-50 mg Softgel] 1 cap PO DAILY predniSONE [Deltasone] 20 mg PO DAILY Magnesium Oxide [Mag-Ox] 400 mg PO DAILY hydrOXYzine HCL [Atarax] 25 mg PO Q6H Aspirin EC [Ecotrin Low Dose] 81 mg PO DAILY oxyCODONE-APAP 7.5-325MG [Percocet 7.5-325 mg] 1 tab PO Q6H PRN PRN Reason: Pain Changed Furosemide [Lasix] 40 mg PO DAILY #0 Discontinued Metoprolol Tartrate 25 mg PO BID Insulin Glargine,Hum.rec.anlog [Lantus Solostar] 50 unit SQ HS Glimepiride [Amaryl] 2 mg PO AC-BRKFST Baclofen 10 mg PO Q8H Discharge Medication List Nitroglycerin Sl Tabs [Nitrostat] 0.4 mg SL Q5M PRN 03/09/14 [History] Atorvastatin [Lipitor] 80 mg PO HS 05/08/15 [History] Fluticasone/Vilanterol [Breo Ellipta 100-25 Mcg Inhaler] 1 puff INHALATION RT-HS 03/12/18 [History] Potassium Chloride ER [K-Dur 20] 20 meq PO BID #0 03/15/18 [Rx] Ipratropium-Albuterol Nebulize [Duoneb 0.5 mg-3 mg/3 ml Soln] 3 ml INHALATION RT-QID PRN 09/02/19 [History] Pramipexole Di-HCl [Mirapex] 1 mg PO HS 09/02/19 [History] Apixaban [Eliquis] 5 mg PO Q12H 11/01/19 [History] Ketoconazole [Ketoconazole 2% Shampoo] 1 applic TOPICAL Q72H 11/01/19 [History] QUEtiapine [SEROquel] 25 mg PO HS tab 11/17/19 [Rx] Omeprazole 20 mg PO AC-BRKFST 11/23/19 [History] Tamsulosin [Flomax] 0.4 mg PO HS 11/23/19 [History] Aspirin EC [Ecotrin Low Dose] 81 mg PO DAILY 12/09/19 [History] Magnesium Oxide [Mag-Ox] 400 mg PO DAILY 12/09/19 [History] Sennosides/Docusate Sodium [Senna Plus 8.6-50 mg Softgel] 1 cap PO DAILY 12/09/19 [History] hydrOXYzine HCL [Atarax] 25 mg PO Q6H 12/09/19 [History] oxyCODONE-APAP 7.5-325MG [Percocet 7.5-325 mg] 1 tab PO Q6H PRN 12/09/19 [History] predniSONE [Deltasone] 20 mg PO DAILY 12/09/19 [History] Furosemide [Lasix] 40 mg PO DAILY #0 12/17/19 [Rx] HYDROcodone/APAP 5-325MG [[place] 5-325] 1 each PO Q6HR PRN #12 tab 12/17/19 [Rx] Metoprolol Tartrate [Lopressor] 50 mg PO BID #60 tab 12/17/19 [Rx] Pregabalin [Lyrica] 75 mg PO BID #60 cap 12/17/19 [Rx] QUEtiapine [SEROquel] 25 mg PO BID #60 tab 12/17/19 [Rx] ceFAZolin [Kefzol] 2 gm IVP Q8HR #126 vial 12/17/19 [Rx] Follow up Appointment(s)/Referral(s): Spencer An MD [STAFF PHYSICIAN] - 01/05/20 8:00 am (cloth cutting inspector for your monoclonal gammopathy This appointment is set in the [facility] Paperwork for this appointment will be sent in the mail) Yary Garcia NPC [REFERRING] - 12/22/19 9:30 am Gaurang Frazier MD [STAFF PHYSICIAN] - 12/27/19 4:30 pm [facility], [NON-STAFF] - Dimitry Bejarano MD [STAFF PHYSICIAN] - 1 Week (urologist ,for your urinary catheter managment ) Trae Claudio DO [Doctor of Osteopathic Medicine] - 12/31/19 9:30 am (Please bring your ID and insurance card(s) Also arrive early to fill out paperwork) Haritha Yap MD [STAFF PHYSICIAN] - 01/11/20 10:00 am (Just a reminder for your first scheduled appointment) Ambulatory/Diagnostic Orders: Basic Metabolic Panel [LAB.AMB] Location: None Selected C Reactive Protein [LAB.AMB] Location: None Selected Complete Blood Count w/diff [LAB.AMB] Location: None Selected Erythrocyte Sedimentation Rate [LAB.AMB] Location: None Selected Patient Instructions/Handouts: 24 Hour Urine Collection (GEN), Muscle Spasm (ED) Activity/Diet/Wound Care/Special Instructions: heart healthy diet activity is limited till you see your doctor Discharge Disposition: HOME WITH HOME HEALTH SERVICES
[2019-12-18 10:30] LABS: Methylmalonic Acid 0.48 umol/L (<0.40)
== END 2019-12-17 20:40 | disposition home health service (06) | DRG 871 ==
LOC: EC 16:07 → 4SSUR 18:12
PROVIDERS: ADMIT Hospitalist; ATTEND Hospitalist
PROC: 02HV33Z Insertion of Infusion Device into Superior Vena Cava, Percutaneous Approach (ICD-10-PCS; principal; 2019-12-17 07:30)
DX: A40.9 Streptococcal sepsis, unspecified (principal); G92 Toxic encephalopathy; M35.1 Other overlap syndromes; I47.2 Ventricular tachycardia; I50.32 Chronic diastolic (congestive) heart failure; M46.27 Osteomyelitis of vertebra, lumbosacral region; J96.11 Chronic respiratory failure with hypoxia; J44.9 Chronic obstructive pulmonary disease, unspecified; I11.0 Hypertensive heart disease with heart failure; E11.51 Type 2 diabetes mellitus with diabetic peripheral angiopathy without gangrene; E11.69 Type 2 diabetes mellitus with other specified complication; E11.40 Type 2 diabetes mellitus with diabetic neuropathy, unspecified; E11.649 Type 2 diabetes mellitus with hypoglycemia without coma; R65.20 Severe sepsis without septic shock; Z79.4 Long term (current) use of insulin; M46.46 Discitis, unspecified, lumbar region; D47.2 Monoclonal gammopathy; T40.605A Adverse effect of unspecified narcotics, initial encounter; I49.3 Ventricular premature depolarization; D64.9 Anemia, unspecified; G89.4 Chronic pain syndrome; T50.905A Adverse effect of unspecified drugs, medicaments and biological substances, initial encounter; R40.2352 Coma scale, best motor response, localizes pain, at arrival to emergency department; R40.2142 Coma scale, eyes open, spontaneous, at arrival to emergency department; R40.2232 Coma scale, best verbal response, inappropriate words, at arrival to emergency department; I49.1 Atrial premature depolarization; I25.10 Atherosclerotic heart disease of native coronary artery without angina pectoris; K57.90 Diverticulosis of intestine, part unspecified, without perforation or abscess without bleeding; G47.33 Obstructive sleep apnea (adult) (pediatric); I87.2 Venous insufficiency (chronic) (peripheral); E78.5 Hyperlipidemia, unspecified; K21.9 Gastro-esophageal reflux disease without esophagitis; N40.0 Benign prostatic hyperplasia without lower urinary tract symptoms; J30.2 Other seasonal allergic rhinitis; M19.90 Unspecified osteoarthritis, unspecified site; E66.9 Obesity, unspecified; M47.9 Spondylosis, unspecified; M50.30 Other cervical disc degeneration, unspecified cervical region; Z99.81 Dependence on supplemental oxygen; Z95.5 Presence of coronary angioplasty implant and graft; Z96.652 Presence of left artificial knee joint; Z96.611 Presence of right artificial shoulder joint; Z98.42 Cataract extraction status, left eye; Z98.41 Cataract extraction status, right eye; Z96.1 Presence of intraocular lens; Z88.6 Allergy status to analgesic agent; Z88.8 Allergy status to other drugs, medicaments and biological substances; Z79.899 Other long term (current) drug therapy; Z79.01 Long term (current) use of anticoagulants; Z79.82 Long term (current) use of aspirin; Z86.718 Personal history of other venous thrombosis and embolism; Z86.19 Personal history of other infectious and parasitic diseases; Z87.19 Personal history of other diseases of the digestive system; Z86.73 Personal history of transient ischemic attack (TIA), and cerebral infarction without residual deficits; Z86.010 Personal history of colon polyps; Z87.891 Personal history of nicotine dependence; Z82.49 Family history of ischemic heart disease and other diseases of the circulatory system; Z82.3 Family history of stroke; Z87.01 Personal history of pneumonia (recurrent); Z98.890 Other specified postprocedural states; Z68.28 Body mass index [BMI] 28.0-28.9, adult
CPT/HCPCS: 36410; 36415; 70450; 71045; 72125; 72128; 72131; 72156; 72157; 72158; 76937; 80048; 80053; 80306; 80320; 81001; 81003; 82550; 82607; 82728; 82746; 82747; 82784; 83010; 83519; 83540; 83550; 83605; 83615; 83735; 83883; 83921; 84145; 84165; 84207; 85025; 85045; 85610; 85652; 85730; 86038; 86039; 86140; 86334; 86335; 86431; 87040; 87077; 87186; 93005; 93306; 94640; 94760; 95816; 96361; 96374; 96375; 96376; 99285

== ENCOUNTER 2020-03-23 11:21 | Inpatient (IN) | payer MEDICARE ==
[2020-03-23] MEDS ORDERED: ACETAMINOPHEN TAB 500 MG TAB PO STA (11:39)
[2020-03-23] MEDS ORDERED: ALBUTEROL HFA INHALER INHALATION STA (11:39)
[2020-03-23] MEDS ORDERED: ONDANSETRON 4 MG/2 ML VIAL IVP STA (11:44)
--- NOTE | 2020-03-23 11:47 | ED ---
General Adult HPI - General Chief complaint: Shortness of Breath Stated complaint: Fever,Vomiting Time Seen by Provider: 03/23/20 11:32 Source: patient, RN notes reviewed, old records reviewed Mode of arrival: ambulatory Limitations: no limitations - History of Present Illness Initial comments: Patient is a pleasant 70-year-old male presenting to the emergency Department with complaints of fever. Onset of symptoms was this morning. Patient does feel short of breath and does have nonproductive cough. Patient also feels nauseated. Patient vomited once. No abdominal pain. No constipation or diarrhea. Patient does have chronic lower back pain for several months and is still on IV antibiotics for this. Chart review reveals history of discitis. - Related Data Home Medications Medication Instructions Recorded Confirmed Nitroglycerin Sl Tabs [Nitrostat] 0.4 mg SL Q5M PRN 03/09/14 12/09/19 Atorvastatin [Lipitor] 80 mg PO HS 05/08/15 12/09/19 Fluticasone/Vilanterol [Breo 1 puff INHALATION RT-HS 03/12/18 12/09/19 Ellipta 100-25 Mcg Inhaler] Ipratropium-Albuterol Nebulize 3 ml INHALATION RT-QID PRN 09/02/19 12/09/19 [Duoneb 0.5 mg-3 mg/3 ml Soln] Pramipexole Di-HCl [Mirapex] 1 mg PO HS 09/02/19 12/09/19 Apixaban [Eliquis] 5 mg PO Q12H 11/01/19 12/09/19 Ketoconazole [Ketoconazole 2% 1 applic TOPICAL Q72H 11/01/19 12/09/19 Shampoo] Omeprazole 20 mg PO AC-BRKFST 11/23/19 12/09/19 Tamsulosin [Flomax] 0.4 mg PO HS 11/23/19 12/09/19 Aspirin EC [Ecotrin Low Dose] 81 mg PO DAILY 12/09/19 12/09/19 Magnesium Oxide [Mag-Ox] 400 mg PO DAILY 12/09/19 12/09/19 Sennosides/Docusate Sodium [Senna 1 cap PO DAILY 12/09/19 12/09/19 Plus 8.6-50 mg Softgel] hydrOXYzine HCL [Atarax] 25 mg PO Q6H 12/09/19 12/09/19 oxyCODONE-APAP 7.5-325MG [Percocet 1 tab PO Q6H PRN 12/09/19 12/09/19 7.5-325 mg] predniSONE [Deltasone] 20 mg PO DAILY 12/09/19 12/09/19 Previous Rx's Medication Instructions Recorded Potassium Chloride ER [K-Dur 20] 20 meq PO BID #0 03/15/18 QUEtiapine [SEROquel] 25 mg PO HS tab 11/17/19 Furosemide [Lasix] 40 mg PO DAILY #0 12/17/19 HYDROcodone/APAP 5-325MG [Rawson 1 each PO Q6HR PRN #12 tab 12/17/19 5-325] Metoprolol Tartrate [Lopressor] 50 mg PO BID #60 tab 12/17/19 Pregabalin [Lyrica] 75 mg PO BID #60 cap 12/17/19 QUEtiapine [SEROquel] 25 mg PO BID #60 tab 12/17/19 ceFAZolin [Kefzol] 2 gm IVP Q8HR #126 vial 12/17/19 Allergies Allergy/AdvReac Type Severity Reaction Status Date / Time acetaminophen [From Tylenol] AdvReac kidney/liver Verified 03/23/20 11:27 issues prednisone AdvReac Extreme Verified 03/23/20 11:27 aggression with high doses Review of Systems ROS Statement: Those systems with pertinent positive or pertinent negative responses have been documented in the HPI. ROS Other: All systems not noted in ROS Statement are negative. Constitutional: Reports: fever, chills Eyes: Denies: eye pain ENT: Denies: ear pain Respiratory: Reports: cough, dyspnea Cardiovascular: Denies: chest pain Endocrine: Reports: fatigue Gastrointestinal: Reports: nausea, vomiting. Denies: abdominal pain Genitourinary: Denies: dysuria Musculoskeletal: Reports: as per HPI Skin: Denies: rash Neurological: Denies: weakness Past Medical History Past Medical History: Coronary Artery Disease (CAD), Chest Pain / Angina, Heart Failure, COPD, Deep Vein Thrombosis (DVT), GERD/Reflux, Hyperlipidemia, Hypertension, Osteoarthritis (OA), Pneumonia, Prostate Disorder, Respiratory Disorder, Sleep Apnea/CPAP/BIPAP Additional Past Medical History / Comment(s): Pt recently admitted to [facility] on 11/03/19 with fever/cervical and back pain, sepsis unknown source/urinary retention with IDC. Other hx: Spouse states pt has been febrile/neck pain since August 2019 with admits to [facility] and [facility], had picc line at [facility] with DVT R arm/sepsis d/t bilateral lower leg cellulitis, venous insufficiency/lower leg edema, spondylolsis, cervical and low back pain, DDD, chronic respiratory failure, CALLI with Cpap/O2 at 4L/NC at , nonsustained vtach, TIAs, small vessel disease, IDDM type II, BPH, diverticular disease, colon polyps-benign, sinus pro blems, seasonal allergies History of Any Multi-Drug Resistant Organisms: None Reported Past Surgical History: Back Surgery, Heart Catheterization With Stent, Joint Replacement, Orthopedic Surgery Additional Past Surgical History / Comment(s): Bilateral knee arthroscopies, total L knee arthroplasty, R total shoulder arthroplasty, L hand injury with repair, low back surgery, PCI with 3 stents, colonoscopies/polypectomies, lumbar epidural injections, bilateral cataract removals/lens implants. Past Anesthesia/Blood Transfusion Reactions: No Reported Reaction Additional Past Anesthesia/Blood Transfusion Reaction / Comment(s): STATES "HAD A HARD TIME WITH BREATHING POST OP" Date of Last Stent Placement:: 2009 Past Psychological History: No Psychological Hx Reported Smoking Status: Former smoker Past Alcohol Use History: None Reported Past Drug Use History: None Reported - Past Family History Father Family Medical History: CVA/TIA, Hyperlipidemia, Hypertension Mother Family Medical History: Hypertension General Exam Limitations: no limitations General appearance: alert, in no apparent distress Eye exam: Present: normal appearance Neck exam: Present: normal inspection Respiratory exam: Present: rhonchi Cardiovascular Exam: Present: regular rate, normal rhythm GI/Abdominal exam: Present: soft. Absent: tenderness Extremities exam: Present: pedal edema (Patient states chronic). Absent: calf tenderness Back exam: Present: tenderness (Lower lumbar which patient states is chronic) Neurological exam: Present: alert Psychiatric exam: Present: normal affect, normal mood Skin exam: Present: normal color. Absent: rash Course Vital Signs 03/23/20 03/23/20 03/23/20 11:27 11:50 12:00 Temperature 102.9 F H Pulse Rate 98 98 93 Respiratory 22 18 18 Rate Blood Pressure 138/61 130/62 O2 Sat by Pulse 90 L 93 L 100 Oximetry 03/23/20 03/23/20 03/23/20 12:15 12:30 13:00 Temperature Pulse Rate 92 93 99 Respiratory 18 18 Rate Blood Pressure 91/63 94/50 O2 Sat by Pulse 97 97 Oximetry 03/23/20 13:13 Temperature 100.5 F H Pulse Rate Respiratory Rate Blood Pressure O2 Sat by Pulse Oximetry - Reevaluation(s) Reevaluation #1: 03/23/20 13:33 There is moderate concern for Hollingsworth virus, PCR will be ordered. There is concern for sepsis diagnosed at 1330. Blood culture and lactic acid and IV antibiotics will be ordered. EKG Findings - EKG Comments: EKG Findings:: Sinus tachycardia 102. OK 132. QRS 98. QT 342. QTC 445. Normal axis. Normal QRS. No acute ST change. Motion artifact is present. Medical Decision Making - Medical Decision Making Patient reevaluated and updated. Case discussed with Dr. Huertas, covering with Dr. Keene, who will admit. He does request consult with Dr. Augustine as well as cefazolin 2 g every 8 hours and Zithromax 500 mg daily. - Lab Data Result diagrams: 03/23/20 11:59 03/23/20 11:59 Lab Results 03/23/20 03/23/20 03/23/20 Range/Units 11:58 11:59 11:59 WBC 10.7 H (3.8-10.6) k/uL RBC 4.04 L (4.30-5.90) m/uL Hgb 11.5 L (13.0-17.5) gm/dL Hct 37.0 L (39.0-53.0) % MCV 91.5 D (80.0-100.0) fL MCH 28.4 (25.0-35.0) pg MCHC 31.0 (31.0-37.0) g/dL RDW 15.6 H (11.5-15.5) % Plt Count 146 L (150-450) k/uL MPV 9.5 Neutrophils % 90 % Lymphocytes % 4 % Monocytes % 4 % Eosinophils % 2 % Basophils % 0 % Neutrophils # 9.6 H (1.3-7.7) k/uL Lymphocytes # 0.4 L (1.0-4.8) k/uL Monocytes # 0.4 (0-1.0) k/uL Eosinophils # 0.2 (0-0.7) k/uL Basophils # 0.0 (0-0.2) k/uL Hypochromasia Slight Sodium 138 (137-145) mmol/L Potassium 4.6 (3.5-5.1) mmol/L Chloride 102 (98-107) mmol/L Carbon Dioxide 30 (22-30) mmol/L Anion Gap 6 mmol/L BUN 43 H (9-20) mg/dL Creatinine 1.12 (0.66-1.25) mg/dL Est GFR (CKD-EPI)AfAm 76 (>60 ml/min/1.73 sqM) Est GFR (CKD-EPI)NonAf 66 (>60 ml/min/1.73 sqM) Glucose 137 H (74-99) mg/dL Plasma Lactic Acid Teo (0.7-2.0) mmol/L Calcium 8.8 (8.4-10.2) mg/dL Magnesium 1.2 L (1.6-2.3) mg/dL Total Bilirubin 0.4 (0.2-1.3) mg/dL AST 68 H (17-59) U/L ALT 13 (4-49) U/L Alkaline Phosphatase 154 H (38-126) U/L Lactate Dehydrogenase 840 H (313-618) U/L C-Reactive Protein 42.4 H (<10.0) mg/L NT-Pro-B Natriuret Pep pg/mL Total Protein 6.4 (6.3-8.2) g/dL Albumin 3.9 (3.5-5.0) g/dL Coronavirus (PCR) Not Detected (Not Detectd) 03/23/20 03/23/20 Range/Units 11:59 11:59 WBC (3.8-10.6) k/uL RBC (4.30-5.90) m/uL Hgb (13.0-17.5) gm/dL Hct (39.0-53.0) % MCV (80.0-100.0) fL MCH (25.0-35.0) pg MCHC (31.0-37.0) g/dL RDW (11.5-15.5) % Plt Count (150-450) k/uL MPV Neutrophils % % Lymphocytes % % Monocytes % % Eosinophils % % Basophils % % Neutrophils # (1.3-7.7) k/uL Lymphocytes # (1.0-4.8) k/uL Monocytes # (0-1.0) k/uL Eosinophils # (0-0.7) k/uL Basophils # (0-0.2) k/uL Hypochromasia Sodium (137-145) mmol/L Potassium (3.5-5.1) mmol/L Chloride (98-107) mmol/L Carbon Dioxide (22-30) mmol/L Anion Gap mmol/L BUN (9-20) mg/dL Creatinine (0.66-1.25) mg/dL Est GFR (CKD-EPI)AfAm (>60 ml/min/1.73 sqM) Est GFR (CKD-EPI)NonAf (>60 ml/min/1.73 sqM) Glucose (74-99) mg/dL Plasma Lactic Acid Teo 3.0 H* (0.7-2.0) mmol/L Calcium (8.4-10.2) mg/dL Magnesium (1.6-2.3) mg/dL Total Bilirubin (0.2-1.3) mg/dL AST (17-59) U/L ALT (4-49) U/L Alkaline Phosphatase (38-126) U/L Lactate Dehydrogenase (313-618) U/L C-Reactive Protein (<10.0) mg/L NT-Pro-B Natriuret Pep 1220 pg/mL Total Protein (6.3-8.2) g/dL Albumin (3.5-5.0) g/dL Coronavirus (PCR) (Not Detectd) - Radiology Data Radiology results: image reviewed (Chest x-ray does show some interstitial infiltrates, more so right lower lobe) Disposition Clinical Impression: Pneumonia, Sepsis Disposition: ADMITTED IP TO THIS HOSP Condition: Serious Is patient prescribed a controlled substance at d/c from ED?: No Referrals: Rk Keene III, MD [Primary Care Provider] - 1-2 days Decision Time: 13:34
[2020-03-23] MEDS ORDERED: ALBUTEROL NEBULIZED 2.5 MG/3 ML INHALATION STA (12:01)
[2020-03-23 12:21] LABS: Basophils % (A) 0 %; Eosinophils # (A) 0.2 k/uL (0-0.7); Eosinophils % (A) 2 %; HGB 11.5 gm/dL (13.0-17.5); Hypochromasia Slight; Lymphocytes # (A) 0.4 k/uL (1.0-4.8); Lymphocytes % (A) 4 %; MCH 28.4 pg (25.0-35.0); Mean Platelet Volume 9.5; Monocytes # (A) 0.4 k/uL (0-1.0); Monocytes % (A) 4 %; Neutrophils # (A) 9.6 k/uL (1.3-7.7); Neutrophils % (A) 90 %; Platelet Count 146 k/uL (150-450); RBC 4.04 m/uL (4.30-5.90); RDW 15.6 % (11.5-15.5); WBC 10.7 k/uL (3.8-10.6)
[2020-03-23 12:22] LABS: MCV 91.5 fL (80.0-100.0)
[2020-03-23 12:28] LABS: Albumin 3.9 g/dL (3.5-5.0); C Reactive Protein 42.4 mg/L (<10.0); Calcium 8.8 mg/dL (8.4-10.2); Magnesium 1.2 mg/dL (1.6-2.3); Potassium 4.6 mmol/L (3.5-5.1); Total Bilirubin 0.4 mg/dL (0.2-1.3); Total Protein 6.4 g/dL (6.3-8.2)
--- NOTE | 2020-03-23 12:51 | XR ---
EXAMINATION TYPE: XR chest 1V portable DATE OF EXAM: 03/23/2020 COMPARISON: 12/14/2019 INDICATION: Suspected Covid TECHNIQUE: Single frontal view of the chest is obtained. FINDINGS: The heart size is normal. The pulmonary vasculature is normal. Mild right lower lobe infiltrate is present. IMPRESSION: 1. Mild right lower lobe infiltrate is nonspecific. Atypical pneumonia and atelectasis could be consi dered.
[2020-03-23] MEDS: MAGNESIUM SULFATE-D5W PMX 1 GM in DEXTROSE/WATER 1 100ML.BAG IVPB SCH ×2 (13:19→14:20)
[2020-03-23 13:27] LABS: INR 1.1 (<1.2); Prothrombin Time 10.8 sec (9.0-12.0)
[2020-03-23] MEDS ORDERED: AZITHROMYCIN 500 MG in SODIUM CHLORIDE 0.9% 250 ML IVPB SCH (13:30)
[2020-03-23] MEDS ORDERED: cefTRIAXone IN SWFI 1,000 MG/10 ML SYRINGE IVP STA (13:32)
[2020-03-23] MEDS ORDERED: PNEUMONIA PROTOCOL UTILIZED 1 EACH MISC PO PRN (13:35)
[2020-03-23] MEDS ORDERED: ALBUTEROL HFA INHALER INHALATION PRN (13:35)
[2020-03-23] MEDS ORDERED: SODIUM CHLORIDE 0.9% 1,000 ML IV SCH (13:45)
[2020-03-23 14:05] LABS: Appearance,Urine Clear (Clear); Bilirubin,Urine Negative (Negative); Blood,Urine Negative (Negative); Color,Urine Yellow; Glucose,Urine (UA) Negative (Negative); Ketones,Urine Negative (Negative); Leukocyte Esterase,Urine Negative (Negative); Nitrite,Urine Negative (Negative); Protein,Urine Negative (Negative); Specific Gravity,Urine 1.011 (1.001-1.035); Urobilinogen,Urine <2.0 mg/dL (<2.0)
[2020-03-23] MEDS: ALBUTEROL HFA INHALER INHALATION SCH ×2 (15:01→21:34)
[2020-03-23] MEDS ORDERED: Potassium Replacement Protocol 1 EACH MISC MISCELLANE PRN (18:15)
[2020-03-23] MEDS ORDERED: Magnesium Replacement Protocol 1 EACH MISC MISCELLANE PRN (18:15)
[2020-03-23] MEDS ORDERED: NITROGLYCERIN SL TABS 0.4 MG TAB SUBLINGUAL PRN (18:15)
[2020-03-23] MEDS ORDERED: IPRATROPIUM-ALBUTEROL 3 ML NEB INHALATION PRN (18:15)
[2020-03-23] MEDS ORDERED: ALPRAZolam 0.25 MG TAB PO PRN (18:19)
[2020-03-23] MEDS: METOPROLOL TARTRATE 50 MG TAB PO SCH ×2 (20:37→23:07)
[2020-03-23] MEDS: PREGABALIN 75 MG CAP PO SCH (20:37)
[2020-03-23] MEDS: APIXABAN 5 MG TAB PO SCH (20:37)
[2020-03-23] MEDS: ATORVASTATIN 80 MG TAB PO SCH (20:37)
[2020-03-23] MEDS: FUROSEMIDE 10 MG/ML 4 ML VIAL IV SCH (20:39)
[2020-03-23] MEDS ORDERED: VANCOMYCIN IV PER PHARMACY 1 EACH MISC MISCELLANE PRN (20:50)
[2020-03-23] MEDS ORDERED: QUEtiapine 25 MG TAB PO SCH (21:00)
[2020-03-23] MEDS ORDERED: CEFEPIME 2 GM in SODIUM CHLORIDE 0.9% 100 ML IVPB ONE (21:00)
[2020-03-23] MEDS: SYMBICORT 80-4.5 MCG INHALER INHALATION SCH (21:36)
[2020-03-23] MEDS: VANCOMYCIN 1,750 MG in SODIUM CHLORIDE 0.9% 500 ML 500 ML IVPB SCH (23:02)
--- NOTE | 2020-03-23 23:02 | CONS ---
CONSULTATION DATE OF SERVICE: 03/23/2020 REASON FOR CONSULTATION: Fever and pneumonia. HISTORY OF PRESENT ILLNESS: The patient is a 70-year-old male, well known to my service. This patient did have a recent hospitalization and was recently diagnosed with lumbar spine diskitis with streptococcus bacteremia. The patient completed a course of antibiotic and showed overall improvement. He was subsequently admitted to hospital with fever, and there was concern for possible mild diskitis, for which the patient was started on IV cefazolin that the patient is currently receiving at home. Patient was overall doing well. However, he apparently started having a fever this morning. The patient was complaining of not feeling well. He did have a cough which was mild in intensity, not bringing up any sputum. Apparently he did have one episode of vomiting but denies any abdominal pain or any diarrhea. Denies having any chest pain or shortness of breath. With these symptoms, the patient was evaluated by the ER physician. On arrival at the ER, the patient did have a fever of 102.9 degrees Fahrenheit. The patient did have mild tachycardia and hypoxemia requiring supplemental oxygen. The patient had a negative UA. His white count was 10.7 with a left shift. Creatinine was 1.12. Lactic acid was elevated. AST was mildly elevated. CRP was elevated. Pro-calcitonin not done. Hollingsworth PCR came back negative. Chest x-ray showed right lower lobe pneumonia. The patient was continued on cefazolin. Zithromax was added. Infectious Disease was consulted for further management of antibiotic therapy. REVIEW OF SYSTEMS: Positive points have been mentioned in the HPI. Rest of the systems are negative. PAST MEDICAL HISTORY: Coronary artery disease, angina, heart failure, COPD, DVT, gastroesophageal reflux disease, hypertension, hyperlipidemia, osteoarthritis, pneumonia, prostate disorder, lumbar diskitis, bacteremia. PAST SURGICAL HISTORY: Back surgery, heart catheterization with stent, bilateral knee replacement, right shoulder surgery. SOCIAL HISTORY: Remote history of smoking. No drinking or drug use. FAMILY HISTORY: Father with history of CVA and TIA. Father with history of hypertension. ALLERGIES: ACETAMINOPHEN AND PREDNISONE. CURRENT MEDICATIONS: Ventolin, DuoNeb, Xanax, Eliquis, aspirin, Lipitor, Symbicort, cefazolin 2 grams q.8. He is on Zithromax, colchicine, Lasix, hydralazine, Lopressor, Flomax. PHYSICAL EXAMINATION: Blood pressure 117/57, pulse of 80, temperature 99.8, T-max 102. He is 98% on 4 L nasal cannula. General description is an elderly male lying in bed in no distress. No tachypnea or accessory muscle of respiration use. HEENT: Examination shows slight pallor. No scleral icterus. Oral mucous membrane is dry. No pharyngeal erythema or thrush. NECK: Trachea is central. No thyromegaly. LUNGS: Unlabored breathing. Decreased breath sounds at the bases. No wheeze or crackle. HEART: S1, S2. Regular rate and rhythm. ABDOMEN: Soft. No tenderness. No guarding or rigidity. EXTREMITIES: No edema of the feet. SKIN EXAMINATION: No rash or mass palpable. Neurologically the patient is awake and alert and oriented x3. Mood and affect normal. LABS: Hemoglobin is 11.5, white count 10.7, BUN of 43, creatinine 1.12. Electrolytes have been normal. ALT and AST mildly elevated as well as LDH and CRP. Chest x-ray right lower lobe pneumonia. DIAGNOSTIC IMPRESSION AND PLAN: 1. Patient admitted to hospital with sepsis in this patient who did have a fever, elevated white count and tachycardia. Source possible right lower lobe pneumonia in this patient who has been in and out of the hospital will need to cover for resistant Gram-positive as well as Gram-negative pathogens. 2. Patient with lumbar diskitis with streptococcal bacteremia, on IV cefazolin. 3. Fever; possible source could be the PICC line infection. PLAN: 1. Blood culture will be obtained from the PICC line peripherally. 2. Obtain sputum for Gram stain and culture. 3. Discontinue cefazolin . 4. Start the patient on cefepime 2 grams q.12 and vancomycin, Pharmacy to dose, while watching his kidney function closely. 5. Will follow his clinical condition and culture to further adjust medication if needed. Thank you for this consultation. Will follow this patient along with you. MMODL / IJN: [id number] / MTDD
[2020-03-23] MEDS: PRAMIPEXOLE 1 MG TAB PO SCH (23:07)
[2020-03-23] MEDS: COLCHICINE 0.6 MG EACH PO SCH (23:10)
[2020-03-23] MEDS: oxyCODONE-APAP 10-325MG 1 EACH TAB PO PRN (23:17)
[2020-03-23] MEDS: hydrALAZINE HCL 50 MG TAB PO SCH (23:17)
[2020-03-23 23:34] LABS: Ferritin 32.7 ng/mL (22.0-322.0)
[2020-03-24] MEDS ORDERED: CEFAZOLIN 2 GM/20 ML IVP SCH
[2020-03-24] MEDS ORDERED: RX INFO: IV CONTRAST WAS GIVEN 1 EACH MISC MISCELLANE PRN (00:29)
--- NOTE | 2020-03-24 01:51 | CT ---
EXAM: CT Angiography Chest With Intravenous Contrast CLINICAL HISTORY: high d-dimer TECHNIQUE: Axial computed tomographic angiography images of the chest with intravenous contrast. CTDI is 28.67 mGy and DLP is 870.1 mGy-cm. This CT exam was performed using one or more of the following dose reduction techniques: automated exposure control, adjustment of the mA and/or kV according to patient size, and/or use of iterative reconstruction technique. MIP reconstructed images were created and reviewed. COMPARISON: Previous CT chest November 12, 2019 FINDINGS: Pulmonary arteries: Unremarkable. No pulmonary embolism. Aorta: Extensive calcification of the thoracic aorta and its major branches, including the coronary arteries. No evidence of aneurysm or dissection. Lungs: Previously seen bilateral patchy areas of infiltration have resolved. There are scattered areas of subsegmental atelectasis bilaterally small peripheral blebs have developed on the posterior aspect of the left upper lobe. No mass. Pleural space: Unremarkable. No significant effusion. No pneumothorax. Heart: See above. Bones/joints: No acute fracture. No dislocation. Soft tissues: Unremarkable. Lymph nodes: Unremarkable. No enlarged lymph nodes. IMPRESSION: No evidence of pulmonary emboli. Scattered bilateral areas of subsegmental atelectasis.
[2020-03-24] MEDS: oxyCODONE-APAP 10-325MG 1 EACH TAB PO PRN (05:14)
[2020-03-24] MEDS: APIXABAN 5 MG TAB PO SCH ×2 (05:15→20:52)
[2020-03-24 07:11] LABS: Basophils % (A) 0 %; Eosinophils # (A) 0.2 k/uL (0-0.7); Eosinophils % (A) 2 %; HCT 31.2 % (39.0-53.0); Hypochromasia Moderate; Lymphocytes # (A) 0.5 k/uL (1.0-4.8); Lymphocytes % (A) 6 %; MCH 29.3 pg (25.0-35.0); MCHC 31.7 g/dL (31.0-37.0); MCV 92.5 fL (80.0-100.0); Mean Platelet Volume 9.9; Monocytes # (A) 0.3 k/uL (0-1.0); Monocytes % (A) 4 %; Neutrophils % (A) 85 %; Platelet Count 130 k/uL (150-450); RBC 3.37 m/uL (4.30-5.90); RDW 15.7 % (11.5-15.5); WBC 7.1 k/uL (3.8-10.6)
[2020-03-24] MEDS: SYMBICORT 80-4.5 MCG INHALER INHALATION SCH ×2 (07:15→20:17)
[2020-03-24] MEDS: ALBUTEROL HFA INHALER INHALATION SCH ×4 (07:15→20:17)
[2020-03-24 07:21] LABS: HGB 9.9 gm/dL (13.0-17.5)
[2020-03-24] MEDS ORDERED: PANTOPRAZOLE 40 MG TABLET PO SCH (07:30)
--- NOTE | 2020-03-24 07:37 | XR ---
EXAMINATION TYPE: XR chest 2V DATE OF EXAM: 03/24/2020 COMPARISON: CTA chest earlier today. Chest x-ray yesterday. HISTORY: Cough and shortness of breath. TECHNIQUE: Frontal and lateral views of the chest are obtained. FINDINGS: Stable left-sided PICC line. There is chronic medical changes without suspicious new focal air space opacity, pleural effusion, or pneumothorax seen. The cardiac silhouette size is enlarged w ith mild central vascular congestion. Surgical change right shoulder level partially imaged. IMPRESSION: Correlate for CHF exacerbation or fluid overload status as there is cardiomegaly with mi ld central vascular congestion noted.
[2020-03-24] MEDS: CEFEPIME 2 GM in SODIUM CHLORIDE 0.9% 100 ML IVPB SCH ×2 (07:55→20:38)
[2020-03-24] MEDS: hydrALAZINE HCL 50 MG TAB PO SCH ×3 (07:55→23:48)
[2020-03-24] MEDS: COLCHICINE 0.6 MG EACH PO SCH ×2 (07:55→20:53)
[2020-03-24] MEDS: PANTOPRAZOLE 40 MG TABLET PO SCH (07:56)
[2020-03-24] MEDS: SPIRONOLACTONE 25 MG TAB PO SCH (07:56)
[2020-03-24] MEDS: FUROSEMIDE 10 MG/ML 4 ML VIAL IV SCH ×2 (07:56→23:48)
[2020-03-24] MEDS: PREGABALIN 75 MG CAP PO SCH (07:56)
[2020-03-24] MEDS: predniSONE 10 MG TAB PO SCH (07:56)
[2020-03-24] MEDS: TAMSULOSIN 0.4 MG CAP.ER.24H PO SCH (07:56)
[2020-03-24] MEDS: MAGNESIUM OXIDE 400 MG TAB PO SCH (07:56)
[2020-03-24] MEDS: METOPROLOL TARTRATE 50 MG TAB PO SCH ×2 (07:56→20:52)
[2020-03-24] MEDS: ASPIRIN 81 MG PO SCH (07:56)
[2020-03-24] MEDS ORDERED: AZITHROMYCIN 500 MG in SODIUM CHLORIDE 0.9% 250 ML IVPB SCH (09:00)
[2020-03-24 09:08] LABS: Glucose,Whole Blood 164 mg/dL (75-99)
[2020-03-24 09:42] LABS: African American GFR (CKD) 53.5 (60.0-200.0); Anion Gap 7.1 mmol/L (4.00-12.00); BUN/Creat Ratio 32.67 Ratio (12.00-20.00); Carbon Dioxide 29.9 mmol/L (21.6-31.8); Magnesium 1.7 mg/dL (1.5-2.4); Non-African American GFR(CKD) 46.2 (60.0-200.0); Potassium 4.7 mmol/L (3.5-5.5)
--- NOTE | 2020-03-24 09:50 | CT ---
EXAMINATION TYPE: CT brain wo con DATE OF EXAM: 03/24/2020 HISTORY: Fall injury with headache CT DLP: 1082.4 mGycm. Automated Exposure Control for Dose Reduction was Utilized. TECHNIQUE: CT scan of the head is performed without contrast. COMPARISON: CT brain December 09, 2019. FINDINGS: There is no acute intracranial hemorrhage or midline shift identified. There is diffuse v entricular and sulcal prominence consistent with diffuse age-related cerebral atrophy. There is low- attenuation in the periventricular white matter consistent with chronic small vessel ischemic change. The globes are intact and the visualized sinuses are clear. IMPRESSION: No acute intracranial hemorrhage or midline shift. There is mild to moderate diffuse ag e-related cerebral atrophy and chronic small vessel ischemic change redemonstrated. No significant c hange from prior.
--- NOTE | 2020-03-24 12:18 | P.CRDCN ---
History of Present Illness Consult date: 03/24/20 Consult reason: shortness of breath History of present illness: The patient is a 70-year-old male with past medical history significant for coronary artery disease status post stenting, hypertension, COPD, dyslipidemia, obstructive sleep apnea, diabetes, and former smoker who follows in the office with Dr. Harrison. We have been consulted for congestive heart failure and shortness of breath. The patient was interviewed and examined lying comfortably in bed. He states he is short of breath with exertion, however feels comfortable lying in bed. No chest pain or chest pressure. No palpitations, dizziness, or lightheadedness. He does have lower extremity swelling, which she states is chronic for him. DIAGNOSTICS: EKG shows sinus tachycardia with a heart rate of 102 Computed tomography scan of the chest shows no evidence of pulmonary emboli. Scattered bilateral areas of subsegmental atelectasis Chest x-ray shows cardiomegaly with mild central vascular congestion Laboratory data shows WBC 7.1, hemoglobin 9.9, platelet 1:30, sodium 140, potassium 4.7, BUN 49, creatinine 1.5, magnesium 1.7 after supplementation, AST 68, ALT 13, ALP 154, CRP 42, BNP 1220 Echocardiogram on 12/13/2019 shows LV function of 55-60% with mild valvular heart disease and moderate pulmonary hypertension with RVSP at 50.8 mmHg Vital signs 03/27/1952, heart rate 94, respiratory rate 16, SpO2 90% on room air. Temperature 97.4F PAST MEDICAL HISTORY: Coronary artery disease, COPD, CHF, DVT, dyslipidemia, hypertension, sleep apnea, NSVT REVIEW OF SYSTEMS: No fever or chills. No cough or expectoration. No diaphoresis. Patient denies headache, dizziness, blurred vision, double vision. Patient denies any stomach discomfort. No nausea, vomiting. No hematochezia. No hematemesis. Denies any black stools or blood in his stools. Denies dysuria or hematuria. No muscle weakness or numbness. PHYSICAL EXAMINATION: This is a 70-year-old beats male in no apparent distress at the time of my examination. HEENT: Head is atraumatic, normocephalic. Pupils are equal, round. Sclerae anicteric. Conjunctivae are clear. Mucous membranes of the mouth are moist. Neck is supple. There is no jugular venous distention. No carotid bruit is heard. CHEST EXAMINATION: Lungs are diminished to auscultation. No chest wall tenderness is noted on palpation or with deep breathing. HEART EXAMINATION: Heart regular rate and rhythm. S1, S2 heard. No murmurs, gallops or rub. ABDOMEN: Soft, nontender. Bowel sounds are heard. No organomegaly noted. EXTREMITIES: +1 peripheral pulses. Moderate lower extremity pitting edema. No calf tenderness noted. NEUROLOGIC EXAMINATION: Patient is awake, alert and oriented x3. FINAL ASSESSMENT AND PLAN: #1 shortness of breath, pneumonia versus congestive heart failure, BNP 1220 #2 septicemia, history of lumbar discitis with streptococcal bacteremia, blood cultures pending via PICC line #3 history of nonsustained monomorphic VT #4 hypertension #5 diabetes #6 history of DVT, on anticoagulation #7 hypomagnesia, initial 1.2 PLAN: Continue current dose of diuretics with close monitoring of electrolytes and supplementation as needed with the patient's past history of NSVT Consider transitioning to oral diuretics tomorrow, as the patient has lost 2.5 kg over the last 24 hours Echocardiogram pending. Patient being assessed for PICC line infection and septicemia; assess for vegetation Further recommendations based upon clinical course The patient has been seen and evaluated. Plan of care has been reviewed and agreed upon by Dr Araiza. 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, DVT R arm/sepsis d/t bilateral lower leg cellulitis, venous insufficiency/lower leg/pedal edema, spondylolsis, cervical and low back pain, DDD, chronic respiratory failure, CALLI with Cpap/O2 at 4L/NC at HS, nonsustained vtach, TIAs, small vessel disease, IDDM type II, neuropathy, BPH, diverticular disease, colon polyps-benign, sinus problems, seasonal allergies History of Any Multi-Drug Resistant Organisms: None Reported Past Surgical History: Back Surgery, Heart Catheterization With Stent, Joint Replacement, Orthopedic Surgery Additional Past Surgical History / Comment(s): Bilateral knee arthroscopies, total L knee arthroplasty, R total shoulder arthroplasty, L hand injury with repair, low back surgery, PCI with 3 stents, colonoscopies/polypectomies, lumbar epidural injections, bilateral cataract removals/lens implants. Past Anesthesia/Blood Transfusion Reactions: No Reported Reaction Additional Past Anesthesia/Blood Transfusion Reaction / Comment(s): STATES "HAD A HARD TIME WITH BREATHING POST OP" Date of Last Stent Placement:: 2009 Smoking Status: Former smoker - Past Family History Father Family Medical History: CVA/TIA, Hyperlipidemia, Hypertension Mother Family Medical History: Hypertension Medications and Allergies Home Medications Medication Instructions Recorded Confirmed Type Nitroglycerin Sl Tabs [Nitrostat] 0.4 mg SL Q5M PRN 03/09/14 03/23/20 History Atorvastatin [Lipitor] 80 mg PO HS 05/08/15 03/23/20 History Fluticasone/Vilanterol [Breo 1 puff INHALATION RT-HS 03/12/18 03/23/20 History Ellipta 100-25 Mcg Inhaler] Ipratropium-Albuterol Nebulize 3 ml INHALATION RT-QID PRN 09/02/19 03/23/20 History [Duoneb 0.5 mg-3 mg/3 ml Soln] Pramipexole Di-HCl [Mirapex] 1 mg PO HS 09/02/19 03/23/20 History Apixaban [Eliquis] 5 mg PO Q12H 11/01/19 03/23/20 History Ketoconazole [Ketoconazole 2% 1 applic TOPICAL Q72H 11/01/19 03/23/20 History Shampoo] QUEtiapine [SEROquel] 25 mg PO HS tab 11/17/19 03/23/20 Rx Omeprazole 20 mg PO AC-BRKFST 11/23/19 03/23/20 History Tamsulosin [Flomax] 0.4 mg PO DAILY 11/23/19 03/23/20 History Aspirin EC [Ecotrin Low Dose] 81 mg PO DAILY 12/09/19 03/23/20 History Furosemide [Lasix] 40 mg PO DAILY #0 12/17/19 03/23/20 Rx Metoprolol Tartrate [Lopressor] 50 mg PO BID #60 tab 12/17/19 03/23/20 Rx Pregabalin [Lyrica] 75 mg PO BID #60 cap 12/17/19 03/23/20 Rx ceFAZolin [Kefzol] 2 gm IVP Q8HR #126 vial 12/17/19 03/23/20 Rx Colchicine 0.6 mg PO BID 03/23/20 03/23/20 History Furosemide [Lasix] 20 mg PO HS 03/23/20 03/23/20 History Magnesium 250 mg PO DAILY 03/23/20 03/23/20 History Spironolactone [Aldactone] 25 mg PO DAILY 03/23/20 03/23/20 History hydrALAZINE HCL 50 mg PO Q8HR 03/23/20 03/23/20 History oxyCODONE-APAP 10-325MG [Percocet 1 tab PO QID PRN 03/23/20 03/23/20 History 10-325 mg] predniSONE 10 mg PO DAILY 03/23/20 03/23/20 History Allergies Allergy/AdvReac Type Severity Reaction Status Date / Time acetaminophen [From Tylenol] AdvReac kidney/liver Verified 03/23/20 14:43 issues prednisone AdvReac Extreme Verified 03/23/20 14:43 aggression with high doses Physical Exam Vitals: Vital Signs Temp Pulse Pulse Resp BP BP Pulse Ox 03/24/20 09:50 97.4 F L 94 16 104/52 90 L 03/24/20 09:41 94 16 104/62 90 L 03/24/20 08:00 94 16 03/24/20 05:20 99.9 F H 91 20 129/65 97 03/24/20 05:19 99.9 F H 91 20 129/65 97 03/24/20 00:54 99.2 F 78 17 119/63 97 03/23/20 21:55 98.8 F 81 18 115/66 99 03/23/20 20:20 98.1 F 03/23/20 18:30 18 03/23/20 16:31 99.8 F H 80 14 117/57 98 03/23/20 15:59 99.1 F 81 16 112/53 98 03/23/20 14:23 99.6 F 88 21 107/62 100 12/31/20 13:13 100.5 F H 12/31/20 13:00 99 18 94/50 97 03/23/20 12:30 93 18 91/63 97 03/23/20 12:15 92 Intake and Output 03/23/20 03/24/20 03/24/20 22:59 06:59 14:59 Other: # Voids 3 Weight 107.501 kg 105 kg Results 03/24/20 06:50 03/24/20 06:50 Cardiac Enzymes 03/23/20 Range/Units 11:59 AST 68 H (17-59) U/L Lactate Dehydrogenase 840 H (313-618) U/L Coagulation 03/23/20 Range/Units 13:00 PT 10.8 (9.0-12.0) sec APTT 22.0 (22.0-30.0) sec CBC 03/23/20 03/24/20 Range/Units 11:59 06:50 WBC 10.7 H 7.1 (3.8-10.6) k/uL RBC 4.04 L 3.37 L (4.30-5.90) m/uL Hgb 11.5 L 9.9 L D (13.0-17.5) gm/dL Hct 37.0 L 31.2 L (39.0-53.0) % Plt Count 146 L 130 L (150-450) k/uL Comprehensive Metabolic Panel 03/23/20 03/24/20 Range/Units 11:59 06:50 Sodium 138 140 (137-145) mmol/L Potassium 4.6 4.7 (3.5-5.1) mmol/L Chloride 102 103 (98-107) mmol/L Carbon Dioxide 30 29.9 (22-30) mmol/L BUN 43 H 49.0 H (9-20) mg/dL Creatinine 1.12 1.5 (0.66-1.25) mg/dL Glucose 137 H 94 (74-99) mg/dL Calcium 8.8 8.0 L (8.4-10.2) mg/dL AST 68 H (17-59) U/L ALT 13 (4-49) U/L Alkaline Phosphatase 154 H (38-126) U/L Total Protein 6.4 (6.3-8.2) g/dL Albumin 3.9 (3.5-5.0) g/dL Current Medications Generic Name Dose Route Start Last Admin Trade Name Freq PRN Reason Stop Dose Admin Albuterol Sulfate 2 puff 03/23/20 13:35 Albuterol Hfa Inhaler INHALATION RT-Q4H PRN Shortness Of Breath Or Wheezing Albuterol Sulfate 2 puff 03/23/20 16:00 03/24/20 11:27 Albuterol Hfa Inhaler INHALATION 2 puff RT-QID JOSE Administration Albuterol/Ipratropium 3 ml 03/23/20 18:15 Ipratropium-Albuterol 3 Ml Neb INHALATION RT-QID PRN Shortness Of Breath Alprazolam 0.25 mg 03/23/20 18:19 Alprazolam 0.25 Mg Tab PO TID PRN Anxiety Apixaban 5 mg 03/23/20 18:15 03/24/20 05:15 Apixaban 5 Mg Tab PO 5 mg Q12H JOSE Administration Aspirin 81 mg 03/24/20 09:00 03/24/20 07:56 Aspirin 81 Mg PO 81 mg DAILY JOSE Administration Atorvastatin Calcium 80 mg 03/23/20 21:00 03/23/20 20:37 Atorvastatin 80 Mg Tab PO 80 mg HS JSOE Administration Budesonide/Formoterol Fumarate 2 puff 03/23/20 20:00 03/24/20 07:15 Symbicort 80-4.5 Mcg Inhaler INHALATION 2 puff RT-BID JOSE Administration Colchicine 0.6 mg 03/23/20 21:00 03/24/20 07:55 Colchicine 0.6 Mg Each PO 0.6 mg BID JOSE Administration Furosemide 40 mg 03/23/20 18:19 03/24/20 07:56 Furosemide 10 Mg/Ml 4 Ml Vial IV 40 mg Q12HR JOSE Administration Hydralazine HCl 50 mg 03/24/20 00:00 03/24/20 07:55 Hydralazine Hcl 50 Mg Tab PO 50 mg Q8HR JOSE Administration Cefepime HCl 2 gm/ Sodium 100 mls @ 25 mls/hr 03/24/20 09:00 03/24/20 07:55 Chloride IVPB 25 mls/hr Q12HR JOSE Administration Vancomycin HCl 1,750 mg/ 500 mls @ 167 mls/hr 03/23/20 21:30 03/23/20 23:02 Sodium Chloride IVPB 167 mls/hr Q16H JOSE Administration Ibuprofen 400 mg 03/24/20 11:47 Ibuprofen 400 Mg Tab PO Q6HR PRN Pain Ketoconazole 1 applic 03/25/20 09:00 Ketoconazole 2% Shampoo 1 Applic/Ml TOPICAL Q72H JOSE Magnesium Oxide 400 mg 03/24/20 09:00 03/24/20 07:56 Magnesium Oxide 400 Mg Tab PO 400 mg DAILY JOSE Administration Metoprolol Tartrate 50 mg 03/23/20 21:00 03/24/20 07:56 Metoprolol Tartrate 50 Mg Tab PO 50 mg BID JOSE Administration Miscellaneous Information 1 each 03/23/20 13:35 Pneumonia Protocol Utilized 1 Each Misc PO ONCE PRN Per Protocol Miscellaneous Information 1 each 03/23/20 18:15 Magnesium Replacement Protocol 1 Each Misc MISCELLANE DAILY PRN Per Protocol Protocol Miscellaneous Information 1 each 03/23/20 18:15 Potassium Replacement Protocol 1 Each Misc MISCELLANE DAILY PRN Per Protocol Protocol Miscellaneous Information 1 each 03/24/20 00:29 Rx Info: Iv Contrast Was Given 1 Each Misc MISCELLANE 03/26/20 00:30 DAILY PRN Per Protocol Nitroglycerin 0.4 mg 03/23/20 18:15 Nitroglycerin Sl Tabs 0.4 Mg Tab SUBLINGUAL Q5M PRN Chest Pain Oxycodone/Acetaminophen 1 each 03/23/20 18:15 03/24/20 05:14 Oxycodone-Apap 10-325mg 1 Each Tab PO 1 each QID PRN Administration Pain Pantoprazole Sodium 40 mg 03/24/20 07:30 03/24/20 07:56 Pantoprazole 40 Mg Tablet PO 40 mg AC-BRKFST JOSE Administration Pramipexole Dihydrochloride 1 mg 03/23/20 21:00 03/23/20 23:07 Pramipexole 1 Mg Tab PO Not Given HS JOSE Prednisone 10 mg 03/24/20 09:00 03/24/20 07:56 Prednisone 10 Mg Tab PO 10 mg DAILY JOSE Administration Pregabalin 75 mg 03/23/20 21:00 03/24/20 07:56 Pregabalin 75 Mg Cap PO 75 mg BID JOSE Administration Quetiapine Fumarate 25 mg 03/23/20 21:00 03/23/20 20:37 Quetiapine 25 Mg Tab PO 25 mg HS JOSE Administration Spironolactone 25 mg 03/24/20 09:00 03/24/20 07:56 Spironolactone 25 Mg Tab PO 25 mg DAILY JOSE Administration Tamsulosin HCl 0.4 mg 03/24/20 09:00 03/24/20 07:56 Tamsulosin 0.4 Mg Cap.Er.24h PO 0.4 mg DAILY JOSE Administration Intake and Output 03/23/20 03/24/20 03/24/20 22:59 06:59 14:59 Other: # Voids 3 Weight 107.501 kg 105 kg 03/24/20 06:50 03/24/20 06:50
--- NOTE | 2020-03-24 12:31 | P.CNPUL ---
History of Present Illness Consult date: 03/24/20 Requesting physician: Isabell Huertas Reason for consult: dyspnea, abnormal CXR/CT Chief complaint: Fever History of present illness: This is a very pleasant 70-year-old gentleman who follows with Dr. Keene is his primary care provider. He has a history of hypertension, hyperlipidemia, GERD, diastolic congestive heart failure, coronary artery disease with previous stent placement, history of right upper extremity DVT, on Eliquis, degenerative joint disease, obesity, obstructive sleep apnea maintained on CPAP in the outpatient setting. He also has a history of chronic tobacco dependence and chronic obstructive pulmonary disease and follows with Dr. Chang in our office for the same. Maintained on DuoNeb inhalations, Breo. On prednisone 10 mg daily. He does wear his CPAP nightly. He has oxygen at 2 L at night as well. He presented to the emergency room yesterday with complaints of fever. Presenting temperature 102.9. He is having some occasional shortness of breath and nonproductive cough. Somewhat nauseated with an episode of emesis times one. No abdominal discomfort. No diarrhea. He does have chronic low back pain including discitis and had been on IV antibiotics for the same. Chest x-ray reveals mild right lower lobe infiltrate which is nonspecific and seen on pre vious x-rays. CT angiogram revealed no evidence of monilia emboli. Scattered bilateral areas of subsegmental atelectasis. The patient is seen today in consultation on the regular medical floor. He apparently took a fall in the bathroom earlier this morning. Computed tomography scan of the brain revealed no acute intracranial hemorrhage or midline shift. He denied any loss of consciousness. He is awake and alert in no acute distress. He is maintaining good O2 saturations in the 90s on room air. He's currently afebrile. White count 7.1. Hemoglobin 9.9. Platelet count 1:30. Glipizide 0.5. D-dimer 1.74. Sodium 140. Potassium 4.7. Creatinine 1.5. ProBNP 1220. Pro-calcitonin 1.55. Hollingsworth virus not detected. He's been initiated on Symbicort, albuterol, prednisone, antibiotics in the form of cefepime, vancomycin. ID is on the case. Review of Systems REVIEW OF SYSTEMS: CONSTITUTIONAL: Positive for fever, weakness. Denies any recent significant we ight loss or weight gain. EYES: Denies change in vision. EARS, NOSE, MOUTH, THROAT: Denies headaches, denies sore throat. CARDIOVASCULAR: Denies chest pain, palpitations or syncopal episodes. RESPIRATORY: Positive for shortness of breath, cough, congestion no hemoptysis. GASTROINTESTINAL: Positive for nausea, vomiting GENITOURINARY: Denies hematuria, denies infections. MUSKULOSKELETAL: Denies pain, denies swelling. INTEGUMENTARY: Denies rash, denies eczema. NEUROLOGICAL: Denies recent memory loss, no recent seizure activity. PSYCHIATRIC: Denies anxiety, denies depression. HEMATOLOGIC/LYMPHATIC: Denies anemia, denies enlarged lymph nodes. 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, DVT R arm/sepsis d/t bilateral lower leg cellulitis, venous insufficiency/lower leg/pedal edema, spondylolsis, cervical and low back pain, DDD, chronic respiratory failure, CALLI with Cpap/O2 at 4L/NC at HS, nonsustained vtach, TIAs, small vessel disease, IDDM type II, neuropathy, BPH, diverticular disease, colon polyps-benign, sinus problems, seasonal allergies History of Any Multi-Drug Resistant Organisms: None Reported Past Surgical History: Back Surgery, Heart Catheterization With Stent, Joint Replacement, Orthopedic Surgery Additional Past Surgical History / Comment(s): Bilateral knee arthroscopies, total L knee arthroplasty, R total shoulder arthroplasty, L hand injury with repair, low back surgery, PCI with 3 stents, colonoscopies/polypectomies, lumbar epidural injections, bilateral cataract removals/lens implants. Past Anesthesia/Blood Transfusion Reactions: No Reported Reaction Additional Past Anesthesia/Blood Transfusion Reaction / Comment(s): STATES "HAD A HARD TIME WITH BREATHING POST OP" Date of Last Stent Placement:: 2009 Smoking Status: Former smoker - Past Family History Father Family Medical History: CVA/TIA, Hyperlipidemia, Hypertension Mother Family Medical History: Hypertension Medications and Allergies Home Medications Medication Instructions Recorded Confirmed Type Nitroglycerin Sl Tabs [Nitrostat] 0.4 mg SL Q5M PRN 03/09/14 03/23/20 History Atorvastatin [Lipitor] 80 mg PO HS 05/08/15 03/23/20 History Fluticasone/Vilanterol [Breo 1 puff INHALATION RT-HS 03/12/18 03/23/20 History Ellipta 100-25 Mcg Inhaler] Ipratropium-Albuterol Nebulize 3 ml INHALATION RT-QID PRN 09/02/19 03/23/20 History [Duoneb 0.5 mg-3 mg/3 ml Soln] Pramipexole Di-HCl [Mirapex] 1 mg PO HS 09/02/19 03/23/20 History Apixaban [Eliquis] 5 mg PO Q12H 11/01/19 03/23/20 History Ketoconazole [Ketoconazole 2% 1 applic TOPICAL Q72H 11/01/19 03/23/20 History Shampoo] QUEtiapine [SEROquel] 25 mg PO HS tab 11/17/19 03/23/20 Rx Omeprazole 20 mg PO AC-BRKFST 11/23/19 03/23/20 History Tamsulosin [Flomax] 0.4 mg PO DAILY 11/23/19 03/23/20 History Aspirin EC [Ecotrin Low Dose] 81 mg PO DAILY 12/09/19 03/23/20 History Furosemide [Lasix] 40 mg PO DAILY #0 12/17/19 03/23/20 Rx Metoprolol Tartrate [Lopressor] 50 mg PO BID #60 tab 12/17/19 03/23/20 Rx Pregabalin [Lyrica] 75 mg PO BID #60 cap 12/17/19 03/23/20 Rx ceFAZolin [Kefzol] 2 gm IVP Q8HR #126 vial 12/17/19 03/23/20 Rx Colchicine 0.6 mg PO BID 03/23/20 03/23/20 History Furosemide [Lasix] 20 mg PO HS 03/23/20 03/23/20 History Magnesium 250 mg PO DAILY 03/23/20 03/23/20 History Spironolactone [Aldactone] 25 mg PO DAILY 03/23/20 03/23/20 History hydrALAZINE HCL 50 mg PO Q8HR 03/23/20 03/23/20 History oxyCODONE-APAP 10-325MG [Percocet 1 tab PO QID PRN 03/23/20 03/23/20 History 10-325 mg] predniSONE 10 mg PO DAILY 03/23/20 03/23/20 History Allergies Allergy/AdvReac Type Severity Reaction Status Date / Time acetaminophen [From Tylenol] AdvReac kidney/liver Verified 03/23/20 14:43 issues prednisone AdvReac Extreme Verified 03/23/20 14:43 aggression with high doses Physical Exam Vitals: Vital Signs Temp Pulse Pulse Resp BP BP Pulse Ox 03/24/20 09:50 97.4 F L 94 16 104/52 90 L 03/24/20 09:41 94 16 104/62 90 L 03/24/20 08:00 94 16 03/24/20 05:20 99.9 F H 91 20 129/65 97 03/24/20 05:19 99.9 F H 91 20 129/65 97 03/24/20 00:54 99.2 F 78 17 119/63 97 03/23/20 21:55 98.8 F 81 18 115/66 99 03/23/20 20:20 98.1 F 03/23/20 18:30 18 03/23/20 16:31 99.8 F H 80 14 117/57 98 03/23/20 15:59 99.1 F 81 16 112/53 98 03/23/20 14:23 99.6 F 88 21 107/62 100 03/23/20 13:13 100.5 F H 03/23/20 13:00 99 18 94/50 97 03/23/20 12:30 93 18 91/63 97 03/23/20 12:15 92 Intake and Output 03/23/20 03/24/20 03/24/20 22:59 06:59 14:59 Other: # Voids 3 Weight 107.501 kg 105 kg GENERAL EXAM: Alert, pleasant 70-year-old gentleman, on room air, comfortable in no apparent distress. HEAD: Normocephalic. EYES: Normal reaction of pupils, equal size. NOSE: Clear with pink turbinates. THROAT: No erythema or exudates. NECK: No masses, no JVD. CHEST: No chest wall deformity. LUNGS: Equal air entry with scattered crackles in the posterior bases. CVS: S1 and S2 normal with no audible murmur, regular rhythm. ABDOMEN: No hepatosplenomegaly, normal bowel sounds, no guarding or rigidity. SPINE: No scoliosis or deformity SKIN: No rashes CENTRAL NERVOUS SYSTEM: No focal deficits, tone is normal in all 4 extremities. EXTREMITIES: There is no peripheral edema. No clubbing, no cyanosis. Peripheral pulses are intact. Results - Laboratory Findings CBC and BMP: 03/24/20 06:50 03/24/20 06:50 PT/INR, D-dimer PT 10.8 sec (9.0-12.0) 03/23/20 13:00 INR 1.1 (<1.2) 03/23/20 13:00 D-Dimer 1.74 mg/L FEU (<0.60) H 03/23/20 13:40 Abnormal lab findings: Abnormal Labs 03/23/20 03/23/20 03/23/20 11:59 11:59 11:59 WBC 10.7 H RBC 4.04 L Hgb 11.5 L Hct 37.0 L RDW 15.6 H Plt Count 146 L Neutrophils # 9.6 H Lymphocytes # 0.4 L D-Dimer BUN 43 H Est GFR (CKD-EPI)AfAm Est GFR (CKD-EPI)NonAf BUN/Creatinine Ratio Glucose 137 H POC Glucose (mg/dL) Plasma Lactic Acid Teo 3.0 H* Calcium Magnesium 1.2 L AST 68 H Alkaline Phosphatase 154 H Lactate Dehydrogenase 840 H C-Reactive Protein 42.4 H Procalcitonin 03/23/20 03/23/20 03/24/20 11:59 13:40 06:50 WBC RBC 3.37 L Hgb 9.9 L D Hct 31.2 L RDW 15.7 H Plt Count 130 L Neutrophils # Lymphocytes # 0.5 L D-Dimer 1.74 H BUN Est GFR (CKD-EPI)AfAm Est GFR (CKD-EPI)NonAf BUN/Creatinine Ratio Glucose POC Glucose (mg/dL) Plasma Lactic Acid Teo Calcium Magnesium AST Alkaline Phosphatase Lactate Dehydrogenase C-Reactive Protein Procalcitonin 1.55 H 03/24/20 03/24/20 06:50 09:04 WBC RBC Hgb Hct RDW Plt Count Neutrophils # Lymphocytes # D-Dimer BUN 49.0 H Est GFR (CKD-EPI)AfAm 53.5 L Est GFR (CKD-EPI)NonAf 46.2 L BUN/Creatinine Ratio 32.67 H Glucose POC Glucose (mg/dL) 164 H Plasma Lactic Acid Teo Calcium 8.0 L Magnesium AST Alkaline Phosphatase Lactate Dehydrogenase C-Reactive Protein Procalcitonin - Diagnostic Findings Chest x-ray: image reviewed CT scan - chest: image reviewed Assessment and Plan Assessment: 1 Febrile illness of unclear etiology. Presenting temperature 102.9. Currently afebrile. Blood cultures revealing no growth to date. Calcitonin 1.55. 2 Spine discitis with Streptococcus bacteremia currently on IV cefazolin in the outpatient setting 3 Chronic changes of the right lower lobe with atelectasis and possible early pneumonia 4 Chronic obstructive pulmonary disease, currently inactive in stable 5 Chronic hypoxemic respiratory failure secondary to above, on home oxygen 6 Obstructive sleep apnea utilizing CPAP in the outpatient setting 7 Morbid obesity 8 Prior history of chronic tobacco dependence 9 Degenerative disc disease 10 Coronary artery disease with previous stent placement 11 History of diastolic congestive heart failure 12 Hypertension 13 Hyperlipidemia Plan: The patient was seen and evaluated by Dr. Neal Chest x-ray, CAT scans and labs reviewed Continue Symbicort, albuterol Antibiotics per ID services Monitor fever pattern We will continue to follow and make further recommendations based on his clinical status I, the cosigning physician, performed a history & physical examination of the patient. Lungs sounds are coarse crackles in the bilateral bases. Maintaining good O2 saturations in the 90s on room air. I discussed the assessment and plan of care with my nurse practitioner, Judi Crawford. I attest to the above infiltration as dictated by her. Time with Patient: Greater than 30
[2020-03-24] MEDS: VANCOMYCIN 1,750 MG in SODIUM CHLORIDE 0.9% 500 ML 500 ML IVPB SCH (13:10)
[2020-03-24 14:56] LABS: Glucose,Whole Blood 188 mg/dL (75-99)
[2020-03-24 16:11] LABS: Glucose,Whole Blood 193 mg/dL (75-99)
[2020-03-24 16:21] LABS: ABG HCO3 29 mmol/L (21-25); ABG Oxygen Saturation 97.5 % (94-97); ABG PCO2 61 mmHg (35-45); ABG PH 7.28 (7.35-7.45); ABG PO2 91 mmHg (83-108); ABG TCO2 31 mmol/L (19-24); Allen Test Performed? Yes
--- NOTE | 2020-03-24 16:39 | XR ---
EXAMINATION TYPE: XR chest 1V portable DATE OF EXAM: 03/24/2020 COMPARISON: 03/24/2020 INDICATION: A team. There is a prior history of pneumonia. TECHNIQUE: Single frontal view of the chest is obtained. FINDINGS: The heart size is mildly prominent. The pulmonary vasculature is normal. Some minimal scattered increasing density may be present. A second PICC line enters with the tip in the superior vena cava region. IMPRESSION: 1. There may be some minimally increasing scattered density present. Finding is nonspecific. CHF amalia ins within the differential. 2. Mild cardiomegaly
--- NOTE | 2020-03-24 17:07 | CT ---
EXAMINATION TYPE: CT brain wo con DATE OF EXAM: 03/24/2020 COMPARISON: Today HISTORY: fall, ams CT DLP: 1121.4 mGycm Automated exposure control for dose reduction was used. Ventricles have normal size. There is no mass effect nor midline shift. There is no sign of intracran ial hemorrhage. There is cerebral atrophy. Calvarium is intact. There is normal aeration of the masto id sinuses. IMPRESSION: Negative CT scan of the brain. No change. Mild atrophy.
--- NOTE | 2020-03-24 17:15 | PN ---
PROGRESS NOTE DATE OF SERVICE: 03/24/2020 REASON FOR FOLLOWUP: 1. Fever, likely pneumonia. 2. Diskitis. INTERVAL HISTORY: The patient is currently afebrile. He did have a low grade fever of 99 this morning. However, overall fever pattern has improved compared to 102.9 on admission. The patient is feeling better though. The patient denies having any chest pain. He did have very minimal cough, but not bringing up any sputum. No chest pain. No abdominal pain. Denies any worsening back pain. PHYSICAL EXAMINATION: Blood pressure 104/52 with a pulse of 94. Temperature 97.4. He is 90% on room air. General description: The patient is an elderly male up in the chair in no distress. Respiratory system: Unlabored breathing, decreased breath sounds in the bases. No wheeze. Heart S1, S2. Regular rate and rhythm. Abdomen soft, no tenderness. LABS: Hemoglobin is 9.8, white count 7.1. BUN of 49, creatinine 1.5. [place] PCR was negative. Blood culture so far negative. DIAGNOSTIC IMPRESSION AND PLAN: 1. Patient admitted to the hospital with fever, shortness of breath and cough, concern possible for pneumonia. The patient is covered on vancomycin and cefepime, will try to obtain a sputum to narrow his antibiotics. 2. Discitis with previous streptococcal bacteremia should be covered with current antibiotics and monitor clinical course closely. MMODL / IJN: [id number] / MTDD
--- NOTE | 2020-03-24 17:42 | PTCA ---
PERCUTANEOUSTRANS CORORONARY ANGIOGRAPHY DATE OF SERVICE: 03/23/2020 CHIEF COMPLAINTS: Shortness of breath and cough and sputum. HISTORY OF PRESENT ILLNESS: This 70-year-old gentleman with a past medical history of multiple medical problems, including CAD, CHF, COPD, DVT, GERD, hypertension, hyperlipidemia, history of DJD, history of sleep apnea, being followed by Dr. Keene in the outpatient setting, was recently admitted with severe sepsis secondary diskitis, and the patient had a PICC line and currently on antibiotics for apparently several months. Currently the patient is on cefazolin 2 grams IV q.8. Patient also had DVT of the right arm. The patient woke up this morning and was complaining of shortness of breath, cough, fever and multiple other medical problems, and the patient came to [facility] and was admitted for evaluation and treatment at this time. The initial COVID test was negative, but the patient had multiple lab abnormalities, including increased WBC, elevated lactic acid suggestive of sepsis, and elevated alkaline phosphatase. A rapid COVID-19 test was negative. A regular PCR test was requested at this time. D- dimer is not available yet. There is no history of headache, loss of consciousness, seizures. No history of any chest pain, palpitation. The previous cultures show alpha hemolytic Streptococcus and in the blood culture which was done on 12/09/2019. The patient has a productive cough also at this time. PAST MEDICAL HISTORY: History of recent diskitis and PICC line antibiotics, history of CAD, history of CHF, COPD, DVT, GERD, hypertension, DJD, sleep apnea. HOME MEDICATIONS: Hydralazine, colchicine, Ecotrin, Lasix, Kefzol, Lopressor, magnesium, Breo Ellipta, Eliquis, Flomax, Lyrica, Seroquel, Nitrostat, ketoconazole, Percocet, Mirapex, omeprazole, DuoNeb, Lipitor, prednisone, Aldactone. ALLERGIES: TYLENOL and PREDNISONE. FAMILY HISTORY: History of CVA and TIA, hypertension, hyperlipidemia. SOCIAL HISTORY: Previous history of smoking. No history of alcohol intake. REVIEW OF SYSTEMS: ENT: No diminished hearing. No diminished vision. CARDIOVASCULAR SYSTEM: As mentioned earlier. RESPIRATORY SYSTEM: As mentioned earlier. GI: No nausea, vomiting. : No dysuria or retention. NERVOUS SYSTEM: No numbness, weakness. ALLERGY/IMMUNOLOGY: No asthma, hayfever. MUSCULOSKELETAL: As mentioned earlier. HEMATOLOGY/ONCOLOGY: No history of anemia. ENDOCRINE: No history of diabetes, hypothyroidism. CONSTITUTIONAL: As mentioned earlier. DERMATOLOGY: Negative. RHEUMATOLOGY: Negative. PSYCHIATRY: As mentioned earlier. PHYSICAL EXAMINATION: Patient alert and oriented x3. Pulse is 80, blood pressure 117/57, respiration 14, temperature 99.8, T-max 100.5, pulse ox 98% on 4 L. HEENT: Conjunctivae normal. NECK: No jugular venous distention. CARDIOVASCULAR SYSTEM: S1, S2 muffled. RESPIRATORY SYSTEM: Breath sounds diminished at the bases. Bilateral scattered rhonchi and crackles. ABDOMEN: Soft, non-tender. No mass palpable. LEGS: No edema. No swelling. NERVOUS SYSTEM: Higher functions as mentioned earlier. Moves all 4 limbs. No focal motor or sensory deficit. LYMPHATICS: No lymph node palpable in neck, axillae or groin. SKIN: No ulcer, rash, bleeding. JOINTS: No active deforming arthropathy. LABS: Labs at this time show WBC 10.7, hemoglobin 11.5, platelets 146 and lactic acid is 3. Alkaline phosphatase 154 and LDH is 814. C-reactive protein is 42.4. ASSESSMENT: 1. Shortness of breath and cough, possibly acute bilateral pneumonia, right more than the left. 2. Rule out congestive heart failure, acute exacerbation. 3. Elevated plasma lactic acid. 4. Hypomagnesemia. 5. Elevated AST. 6. Elevated LDH and CRP. 7. Increased white count. 8. Anemia, normocytic. 9. Thrombocytopenia. 10.History of recent diskitis with alpha hemolytic Streptococcus in the blood culture. 11.On a PICC line with IV antibiotics. 12.History of coronary artery disease. 13.History of congestive heart failure. 14.Chronic obstructive pulmonary disease. 15.History of deep venous thrombosis. 16.Gastroesophageal reflux disease. 17.Hypertension. 18.Hyperlipidemia. 19.History of degenerative joint disease. 20.History of prostate disorder. 21.History of sleep apnea. 22.History of recent sepsis secondary to diskitis. 23.History of urinary retention, on Finch catheter. 24.History of deep venous thrombosis, right arm. 25.History of lower leg cellulitis. 26.History of obstructive sleep apnea. 27.History of nonsustained ventricular tachycardia. 28.History of transient ischemic attacks. 29.History of benign prostatic hypertrophy. 30.History of colonic polyps. 31.Back surgery, degenerative joint disease. 32.History of coronary artery disease, stent. 33.History of nicotine dependence. 34.Obesity with body mass index of 37.1. RECOMMENDATIONS AND DISCUSSION: In this 70-year-old gentleman who presented with multiple complex medical issues, we will monitor the patient closely, continue the current medications, continue symptomatic treatment. Will initiate broad-spectrum antibiotics. Obtain cultures. I would also recommend IV diuretics. A 2D echo with doppler also will be ordered. I would also recommend cultures, COVID-19 regular testing. D-dimer; if the D-dimer is positive, I would recommend CT angio of the chest. Otherwise, I will obtain a CT chest without any contrast. Will also get a pulmonary consultation with Dr. Neal regarding the respiratory difficulties. Prognosis guarded because of multiple complex medical issues. Further recommendations to follow. Cardiology also will be consulted. IV fluids will be stopped. See orders for further details. Medication reconciliation done. Prognosis guarded because of multiple complex medical issues. Old charts were reviewed. A copy of this dictation is being forwarded to Dr. Keene, who is the primary physician. MMODL / IJN: [id number] / MTDD
[2020-03-24 18:06] LABS: ABG Base Excess 2.6 mmol/L; ABG HCO3 29 mmol/L (21-25); ABG Oxygen Saturation 98.5 % (94-97); ABG PCO2 60 mmHg (35-45); ABG PO2 101 mmHg (83-108); ABG TCO2 31 mmol/L (19-24); Allen Test Performed? Yes
--- NOTE | 2020-03-24 18:26 | P.PN ---
Progress Note - Text Progress Note Date: 03/24/20 A- team Indication: Decreased responsiveness Patient seen and examined at bedside. Patient sitting in the chair and is lethargic. Only opens eyes to sternal rub, does not answer questions, and immediately becomes lethargic again. Patient transferred to bed. Vital signs reviewed General: Ill-appearing, moderate distress, obese Derm: warm, dry Head: atraumatic, normocephalic, symmetric Eyes: EOMI, no lid lag, anicteric sclera Mouth: no lip lesion, mucus membranes moist Cardiovascular: S1S2 reg, no murmur, positive posterior tibial pulse bilateral, Lungs: Decreased breath sounds bilateral, no rhonchi, no rales , no accessory muscle use, Abdominal: soft, nontender to palpation, no guarding, no appreciable organomegaly Ext: no gross muscle atrophy, no edema, no contractures Neuro: CN II-XI grossly intact, no focal neuro deficits Psych: Lethargic, opens eyes to light touch, garbled speech, immediately closes eyes and Assessment/Plan: 1. Acute metabolic encephalopathy 2. Acute hypercapnic respiratory failure, chronic hypoxic respiratory failure, obstructive sleep apnea 3. Recent fall this afternoon with negative head CT. Patient on Eliquis. 4. COPD Stat ABG obtained which showed a pH of 7.28, pCO2 61, PaO2 of 91. Respiratory therapy was at bedside and BiPAP was placed. Chest x-ray was repeated which showed increasing scattered densities with possible early congestive heart failure. Stat repeat head CT was obtained which was negative and no change. Transferred to [facility] for further managing and BiPAP therapy. Patient rechecked approximately 45 minutes later and had some increased responsiveness. Repeat ABG ordered for 1800, respiratory notified. Dr. Donis notified by nursing of patient's transfer. Patient is already being evaluated by pulmonary/critical care and is being followed for a febrile illness of unclear etiology with recent spine discitis and Streptococcus bacteremia. Blood cultures have already been obtained. Repeat ABG 7.279, 59.6, 100. Discussed with Dr. Neal. Will adjust BiPAP settings to 14/7 and decrease FiO2 to 21%.. Will have ICU nurse re-eval patient evening. All sedative medications held. A total of 37 minutes of critical care time was spent with this complex patient
--- NOTE | 2020-03-24 19:03 | PN ---
PROGRESS NOTE DATE OF SERVICE: 03/24/2020 This 70-year-old gentleman who was admitted with shortness of breath, with cough or possibly bilateral pneumonia, right more than the left, also had possible CHF also. The patient also had acute hypoxic respiratory failure. Yesterday the patient was significantly short of breath. This morning the patient was slightly better, but subsequently patient became spontaneously unresponsiveness and the patient has been transferred to telemetry. The patient started on broad spectrum IV antibiotics. Please note the patient also had a recent discitis with alpha hemolytic Streptococcus in the blood culture. The patient being closely monitored at this time. A 2D echo with Doppler has been ordered. The cultures are pending at this time, so far negative. Past medical history reviewed. REVIEW OF SYSTEMS: CARDIOVASCULAR SYSTEM: No angina. Respiration as mentioned earlier. GI mentioned earlier. : No dysuria. NERVOUS SYSTEM: As mentioned. CURRENT MEDICATIONS: Reviewed and include: Ventolin, Xanax, Eliquis, aspirin. Lipitor, Symbicort, Colcrys, Lasix, Apresoline, Motrin, p.r.n. medication, replacement protocol. PHYSICAL EXAM: Patient is alert, oriented x2. Otherwise, confused. Pulse 99, blood pressure 106/75, respiration 16, temperature 98.4, pulse ox 98% on room air. 99% on BiPAP. HEENT: Conjunctivae normal. NECK: No JVD. CARDIOVASCULAR: S1, S2 muffled RESPIRATORY SYSTEM: Breath sounds diminished at the bases. A few scattered rhonchi and crackles. ABDOMEN: Soft, nontender. LEGS are no edema. No swelling. NERVOUS SYSTEM: No focal deficits. LAB STUDIES: WBC 7.1, hemoglobin 9.9. ABGs noted. Other labs are noted. ASSESSMENT: 1. Shortness of breath and cough, possible bilateral pneumonia with acute hypoxic hypercarbic respiratory failure, right more than the left. 2. Possible congestive heart failure acute exacerbation, ejection fraction unknown. 3. Elevated BNP. 4. Elevated plasma lactic acid from possible sepsis. 5. Hypomagnesemia. 6. Increased AST. 7. Elevated LDH and CRP. 8. Increased WBC. 9. Anemia, normocytic. 10.Thrombocytopenia. 11.History of recent diskitis with alpha hemolytic Streptococcus in the blood culture. 12.On PICC line in the left arm with IV antibiotics. 13.History of coronary artery disease. 14.History of congestive heart failure, ejection fraction unknown. 15.History of chronic obstructive pulmonary disease. 16.History of deep vein thrombosis. 17.Gastroesophageal reflux disease. 18.Hypertension. 19.Hyperlipidemia. 20.History of degenerative joint disease. 21.History of prostate disorder. 22.History of sleep apnea. 23.History of recent sepsis, secondary discitis. 24.History of urinary retention on Finch catheter. 25.History of deep vein thrombosis, right arm. 26.History of lower leg cellulitis. 27.History of obstructive sleep apnea. 28.History of nonsustained ventricular tachycardia. 29.History of transient ischemic attack. 30.History of benign prostatic hypertrophy. 31.History of colonic polyps. 32.History of back surgery/degenerative joint disease. 33.History of coronary artery disease, stent. 34.History of nicotine dependence. 35.Obesity with body mass index of 37.1. RECOMMENDATIONS AND DISCUSSION: In this 70-year-old gentleman who presented with multiple complex medical issues, at this time, we will monitor the patient closely. The patient most likely has a multifactorial etiology for his extreme illness. At this time, I recommend continue the BiPAP. Closely follow with Dr. Neal. Cardiology has been consulted. The patient has been receiving IV diuretics. I would recommend increase the dose to 40 mg IV q.8. Otherwise repeat chest x-rays in the morning. The Covid 19 has been negative. The patient is started on broad-spectrum IV antibiotics by Dr. Yap Infectious Disease. We will obtain the cultures. Overall prognosis guarded because of multiple complex medical issues. Further recommendations to follow. See orders for details. MMODL / IJN: [id number] /
[2020-03-24 20:24] LABS: Glucose,Whole Blood 152 mg/dL (75-99)
[2020-03-24] MEDS: ATORVASTATIN 80 MG TAB PO SCH (20:52)
[2020-03-24] MEDS: PRAMIPEXOLE 1 MG TAB PO SCH (20:53)
[2020-03-24] MEDS: IBUPROFEN 400 MG TAB PO PRN (23:47)
[2020-03-25] MEDS: VANCOMYCIN 1,750 MG in SODIUM CHLORIDE 0.9% 500 ML 500 ML IVPB SCH ×2 (04:29→22:20)
[2020-03-25 06:19] LABS: Glucose,Whole Blood 116 mg/dL (75-99)
[2020-03-25] MEDS: PANTOPRAZOLE 40 MG TABLET PO SCH (06:31)
[2020-03-25 07:15] LABS: Basophils % (A) 0 %; Eosinophils # (A) 0.2 k/uL (0-0.7); Eosinophils % (A) 3 %; HCT 31.2 % (39.0-53.0); HGB 9.5 gm/dL (13.0-17.5); Hypochromasia Moderate; Lymphocytes # (A) 0.7 k/uL (1.0-4.8); Lymphocytes % (A) 10 %; MCH 28.3 pg (25.0-35.0); MCHC 30.5 g/dL (31.0-37.0); MCV 92.7 fL (80.0-100.0); Mean Platelet Volume 10.9; Monocytes # (A) 0.4 k/uL (0-1.0); Monocytes % (A) 6 %; Neutrophils # (A) 5.5 k/uL (1.3-7.7); Neutrophils % (A) 78 %; Platelet Count 124 k/uL (150-450); RBC 3.37 m/uL (4.30-5.90); RDW 15.8 % (11.5-15.5)
[2020-03-25 07:21] LABS: Calcium 8.1 mg/dL (8.4-10.2); Potassium 4.7 mmol/L (3.5-5.1)
[2020-03-25] MEDS: ALBUTEROL HFA INHALER INHALATION SCH ×2 (07:33→10:53)
[2020-03-25] MEDS: SYMBICORT 80-4.5 MCG INHALER INHALATION SCH (07:33)
[2020-03-25] MEDS: ASPIRIN 81 MG PO SCH (08:50)
[2020-03-25] MEDS: APIXABAN 5 MG TAB PO SCH ×2 (08:50→21:07)
[2020-03-25] MEDS: CEFEPIME 2 GM in SODIUM CHLORIDE 0.9% 100 ML IVPB SCH ×2 (08:50→21:06)
[2020-03-25] MEDS: hydrALAZINE HCL 50 MG TAB PO SCH ×2 (08:50→17:23)
[2020-03-25] MEDS: predniSONE 10 MG TAB PO SCH (08:51)
[2020-03-25] MEDS: METOPROLOL TARTRATE 50 MG TAB PO SCH ×2 (08:51→21:06)
[2020-03-25] MEDS: SPIRONOLACTONE 25 MG TAB PO SCH (08:51)
[2020-03-25] MEDS: MAGNESIUM OXIDE 400 MG TAB PO SCH (08:51)
[2020-03-25] MEDS: TAMSULOSIN 0.4 MG CAP.ER.24H PO SCH (08:51)
[2020-03-25] MEDS: COLCHICINE 0.6 MG EACH PO SCH (08:52)
[2020-03-25] MEDS: FUROSEMIDE 10 MG/ML 4 ML VIAL IV SCH (08:53)
--- NOTE | 2020-03-25 10:26 | P.PN ---
Subjective Progress Note Date: 03/25/20 Principal diagnosis: Increasing shortness of breath This is a pleasant 70-year-old gentleman who is known to our service from before with coronary artery disease and prior revascularization, chronic diastolic congestive heart failure, chronic kidney disease, hypertension, dyslipidemia, and history of DVT who was admitted to the hospital again with increasing shortness of breath with concerning regarding the pneumonia as well as component of heart failure. The patient was seen this morning. March 252020. He stated that she is feeling slightly better in terms of shortness of breath. He denies any symptoms of chest pain or chest discomfort. He continues to be on antibiotic for pneumonia also he is on Lasix IV. When he was examined this morning he does not have JVD. The BNP came in to be 1200 only. I think the whole picture is mostly consistent with a pneumonia than heart failure. He is in process of getting an echocardiogram was Doppler. Currently he is on Lasix at 40 mg IV 3 times a day which we should probably decrease in the next 12-24 hours. We'll continue monitor his kidney function as well as electrolytes. Objective - Vital Signs Vital signs: Vital Signs Temp 98.8 F 03/25/20 04:00 Pulse 68 03/25/20 04:00 Resp 16 03/25/20 04:00 BP 112/44 03/25/20 04:00 Pulse Ox 96 03/25/20 04:00 Intake & Output 03/24/20 03/25/20 03/25/20 18:59 06:59 18:59 Intake Total 475 240 Output Total 720 400 Balance -245 -160 Weight 106.5 kg Intake: Oral 475 240 Output: Urine 720 400 Other: Voiding Method Urinal # Voids 1 1 # Bowel Movements 1 - Constitutional General appearance: Present: no acute distress - Respiratory Respiratory: bilateral: diminished - Cardiovascular Rhythm: regular Heart sounds: normal: S1, S2 - Labs CBC & Chem 7: 03/25/20 06:51 03/25/20 06:51 Labs: Abnormal Lab Results - Last 24 Hours (Table) 03/24/20 03/24/20 03/24/20 Range/Units 14:52 16:08 16:13 RBC (4.30-5.90) m/uL Hgb (13.0-17.5) gm/dL Hct (39.0-53.0) % MCHC (31.0-37.0) g/dL RDW (11.5-15.5) % Plt Count (150-450) k/uL Lymphocytes # (1.0-4.8) k/uL ABG pH 7.28 L (7.35-7.45) ABG pCO2 61 H (35-45) mmHg ABG HCO3 29 H (21-25) mmol/L ABG Total CO2 31 H (19-24) mmol/L ABG O2 Saturation 97.5 H (94-97) % Sodium (137-145) mmol/L BUN (9-20) mg/dL Creatinine (0.66-1.25) mg/dL Glucose (74-99) mg/dL POC Glucose (mg/dL) 188 H 193 H (75-99) mg/dL Calcium (8.4-10.2) mg/dL 03/24/20 03/24/20 03/25/20 Range/Units 18:01 20:22 06:17 RBC (4.30-5.90) m/uL Hgb (13.0-17.5) gm/dL Hct (39.0-53.0) % MCHC (31.0-37.0) g/dL RDW (11.5-15.5) % Plt Count (150-450) k/uL Lymphocytes # (1.0-4.8) k/uL ABG pH 7.30 L (7.35-7.45) ABG pCO2 60 H (35-45) mmHg ABG HCO3 29 H (21-25) mmol/L ABG Total CO2 31 H (19-24) mmol/L ABG O2 Saturation 98.5 H (94-97) % Sodium (137-145) mmol/L BUN (9-20) mg/dL Creatinine (0.66-1.25) mg/dL Glucose (74-99) mg/dL POC Glucose (mg/dL) 152 H 116 H (75-99) mg/dL Calcium (8.4-10.2) mg/dL 03/25/20 03/25/20 Range/Units 06:51 06:51 RBC 3.37 L (4.30-5.90) m/uL Hgb 9.5 L (13.0-17.5) gm/dL Hct 31.2 L (39.0-53.0) % MCHC 30.5 L (31.0-37.0) g/dL RDW 15.8 H (11.5-15.5) % Plt Count 124 L (150-450) k/uL Lymphocytes # 0.7 L (1.0-4.8) k/uL ABG pH (7.35-7.45) ABG pCO2 (35-45) mmHg ABG HCO3 (21-25) mmol/L ABG Total CO2 (19-24) mmol/L ABG O2 Saturation (94-97) % Sodium 136 L (137-145) mmol/L BUN 55 H (9-20) mg/dL Creatinine 1.51 H (0.66-1.25) mg/dL Glucose 112 H (74-99) mg/dL POC Glucose (mg/dL) (75-99) mg/dL Calcium 8.1 L (8.4-10.2) mg/dL Microbiology - Last 24 Hours (Table) 03/23/20 11:59 Blood Culture - Preliminary Blood No Growth after 24 hours 03/23/20 11:59 Blood Culture - Preliminary Blood No Growth after 24 hours Assessment and Plan Assessment: Assessment #1 increasing shortness of breath likely related to pneumonia more than heart failure #2 chronic diastolic congestive heart failure #3 coronary artery disease with prior stenting seems to be stable #4 history of DVT #5 sleep apnea #6 multiple comorbid conditions Plan #1 consider decreasing the dose of Lasix IV in the next 24 hours #2 continue monitor his kidney function as well as electrolytes #3 follow-up on the echocardiogram
[2020-03-25 11:47] LABS: Glucose,Whole Blood 232 mg/dL (75-99)
[2020-03-25] MEDS: IBUPROFEN 400 MG TAB PO PRN (12:03)
[2020-03-25] MEDS: oxyCODONE-APAP 10-325MG 1 EACH TAB PO PRN ×2 (13:44→21:15)
[2020-03-25] MEDS: INSULIN ASPART (NovoLOG) 100 UNIT/ML VIAL SQ SCH ×3 (13:44→21:09)
--- NOTE | 2020-03-25 13:58 | PN ---
PROGRESS NOTE DATE OF SERVICE: March 25, 2020 This is a 70-year-old gentleman who we saw in consultation yesterday. Our impression was that the patient had a febrile illness, of unclear etiology. In addition, he is being treated for a discitis caused by Streptococcus bacteremia, on Ancef in the outpatient setting. In addition, the patient had chronic changes of right lower lobe, with possible early pneumonia, COPD, chronic hypoxemic respiratory failure, sleep apnea syndrome, morbid obesity, chronic tobacco dependence, DJD, CAD, diastolic CHF, hypertension, and hyperlipidemia. The patient apparently had some difficulty last night. He got some sedatives or hypnotics and apparently became very agitated. He was placed on BiPAP. He became more hypercapnic and acidotic. I think part of the problem was he was getting too much oxygen. I asked Dr. Vigil to turn the FiO2 down. Currently, he is awake and alert. He is on a couple L of O2 at the current time. He is not sure exactly what happened to him last night. He does not really have much memory of it. He states that his breathing is pretty much at baseline. PHYSICAL EXAMINATION: VITAL SIGNS: Current vital signs are reviewed. Temperature 98.8, heart rate 68, respiratory rate 16, blood pressure 112/44. Mean 66, room air saturation 96%. GENERAL: Appears in no acute distress. HEENT: Examination is grossly unremarkable. NECK: Supple. Full range of motion. No adenopathy. Neck veins are flat. CARDIOVASCULAR: Examination reveals regular rhythm and rate. Heart sounds are distant. Heart rate 68 beats per minute. S1, S2 normal. LUNGS: A few scattered rhonchi. No wheezes. Breath sounds equal bilaterally. Breath sounds are diminished throughout. ABDOMEN: Obese. Bowel sounds are heard. EXTREMITIES are intact. No significant cyanosis, clubbing, or edema. SKIN: Without rash. NEUROLOGIC: Examination is brief but nonfocal. Today he is awake and alert. He is oriented. LABS: Reviewed. Blood gases from yesterday show a pO2 of 101, pCO2 of 60, and a pH of 7.30. White count 7, hemoglobin 9.5, hematocrit 31.2, platelet count 124,000, sodium 136, potassium 4.7, chloride 102, CO2 29, anion gap is 5. BUN and creatinine were 55 and 1.51. Microbiology is negative. CT scan of the brain done yesterday shows it to be negative. There is evidence of mild atrophy. Chest x-ray done yesterday shows some minimally increasing scattered densities bilaterally. This could relate to underlying heart failure and/or pneumonia. CURRENT MEDICATIONS: Reviewed. The patient is on albuterol updrafts, Eliquis, aspirin, Lipitor, Symbicort, cefepime, colchicine, Lasix, hydralazine, ibuprofen, insulin, DuoNeb, Nizoral shampoo, magnesium oxide, magnesium replacement protocol, metoprolol, sublingual nitroglycerin, oxycodone, Protonix, potassium replacement, Mirapex, prednisone 10 mg a day, Aldactone, Flomax and vancomycin. ASSESSMENT: 1. Acute on chronic hypercapnic respiratory failure, which may relate to chronic obstructive pulmonary disease exacerbation and/or sedatives/hypnotics/narcotics. 2. Febrile illness, of unclear an etiology, currently being evaluated by Infectious Diseases. Chest x-ray might suggest an infiltrate/pneumonia. 3. Spinal diskitis, secondary to Streptococcus bacteremia, currently on IV cefazolin as an outpatient. 4. Chronic changes, right lower lobe, which may relate to atelectasis and/or pneumonia. 5. Chronic obstructive pulmonary disease, possibly a bit more active at this time. 6. Chronic hypoxemic respiratory failure, currently on home O2. 7. Sleep apnea syndrome, currently on CPAP in the outpatient setting. 8. Morbid obesity. 9. Prior history of chronic tobacco dependence. 10.Degenerative disc disease. 11.Coronary artery disease with previous stent placement. 12.History of diastolic congestive heart failure. 13.Hypertension. 14.Hyperlipidemia. PLAN: The patient will have the Symbicort discontinued in favor of Pulmicort and formoterol. I will DC the prednisone and add some Solu-Medrol. As mentioned last night to the primary service, we will aim for saturations between 88% and 92%. No additional recommendations are made. Prognosis is guarded. All sedatives, hypnotics, narcotics, and tranquilizers should be discontinued. MMODL / IJN: [id number] /
[2020-03-25] MEDS: IPRATROPIUM-ALBUTEROL 3 ML NEB INHALATION SCH ×2 (15:05→20:12)
--- NOTE | 2020-03-25 15:43 | PN ---
PROGRESS NOTE DATE OF SERVICE: 03/25/2020 This 70-year-old gentleman, admitted with change in mental status and fever had possible features of pneumonia. Gram-negative pneumonia suspected. Patient was started on antibiotics. The cultures are negative at this time. The patient also had lumbar discitis caused by alpha hemolytic Streptococcus, was on the PICC line and antibiotic previously. Dr. Yap is following the patient closely. Currently patient is confused on and off. The patient also had diastolic dysfunction. Multiple consults are following the patient closely. Creatinine has slightly worsened today, indicating acute renal failure. The patient being closely monitored on telemetry. Past medical history reviewed. REVIEW OF SYSTEMS: Could not be taken. The patient is slightly confused today. CURRENT MEDICATIONS: 1. DuoNeb. 2. Eliquis. 3. Aspirin. 4. Lipitor. 5. Pulmicort. 6. Cefepime. 7. Perforomist. 8. Lasix. 9. Doses reviewed. PHYSICAL EXAM: Patient is alert, oriented x2. Pulse 68, blood pressure 112/44, respirations 16, temperature 98.2, pulse ox 96% on room air. HEENT: Conjunctivae normal. NECK: No JVD. CARDIOVASCULAR: S1, S2 muffled. RESPIRATIONS: Breath sounds diminished in the bases. A few scattered rhonchi and crackles. ABDOMEN: Soft, nontender. No mass palpable. LEGS: No edema. No swelling. NERVOUS SYSTEM: Higher functions as mentioned earlier. Moves all four limbs. No focal motor or sensory deficits. LYMPHATICS: No lymph nodes palpable in neck, axilla and groin. SKIN: No ulcer, rash or bleeding. JOINTS: No active deforming arthropathy. LABS: WBC 7, hemoglobin 9.5. Sodium is 136. ASSESSMENT: 1. Shortness of breath and cough, possible bilateral pneumonia with acute hypoxic hypercarbic respiratory failure, right more than the left. 2. Congestive heart failure acute exacerbation acute on chronic diastolic dysfunction. 3. Acute on chronic renal failure with acute tubular necrosis. 4. Elevated BNP. 5. Elevated plasma lactic acid, possible sepsis present on admission. 6. Hypomagnesemia. 7. Change in mental status acute metabolic encephalopathy multifactorial. 8. Increased AST. 9. Elevated LDH and CRP. 10.Increased WBC. 11.Anemia, normocytic. 12.Thrombocytopenia. 13.History of recent discitis with alpha hemolytic streptococci in blood culture. 14.On PICC line in the left arm with IV antibiotics. 15.History of coronary artery disease. 16.History of congestive heart failure, ejection fraction unknown. 17.Chronic obstructive pulmonary disease. 18.History of deep vein thrombosis. 19.Gastroesophageal reflux disease. 20.Hypertension. 21.Hyperlipidemia. 22.History of degenerative joint disease. 23.History of prostate disorder. 24.History of sleep apnea. 25.History of recent sepsis secondary to discitis. 26.History of urinary retention. Finch catheter. 27.History of deep vein thrombosis, right arm. 28.History of lower leg cellulitis. 29.History of obstructive sleep apnea. 30.History of nonsustained ventricular tachycardia. 31.History of transient ischemic attack. 32.History of benign prostatic hypertrophy. 33.History of colonic polyps. 34.History of back surgery/degenerative joint disease. 35.History of coronary artery disease/stent. 36.History of nicotine dependence. 37.Obesity with body mass index of 37.1. RECOMMENDATIONS AND DISCUSSION: I recommend to continue current medications, symptomatic treatment. Cut down the dose of IV diuretics. Closely follow with Cardiology. Monitor creatinine closely. Otherwise, avoid nephrotoxic medications as well. Reduce the dose of colchicine. Otherwise, prognosis guarded because of multiple complex medical issues. Further recommendations to follow. MMODL / IJN: [id number] /
[2020-03-25] MEDS: KETOCONAZOLE 2% SHAMPOO 1 APPLIC/ML TOPICAL SCH (15:52)
[2020-03-25 16:50] LABS: Glucose,Whole Blood 170 mg/dL (75-99)
[2020-03-25] MEDS: BUDESONIDE 1 MG/2 ML NEBU INHALATION SCH (20:12)
[2020-03-25] MEDS: FORMOTEROL FUMARATE 20 MCG/2 ML NEBU INHALATION SCH (20:12)
[2020-03-25 20:18] LABS: Glucose,Whole Blood 171 mg/dL (75-99)
[2020-03-25] MEDS: PRAMIPEXOLE 1 MG TAB PO SCH (21:06)
[2020-03-25] MEDS: ATORVASTATIN 80 MG TAB PO SCH (21:07)
[2020-03-25] MEDS: INSULIN DETEMIR (LEVEMIR) 100 UNIT/ML SYR SQ SCH (21:07)
--- NOTE | 2020-03-25 23:20 | PN ---
PROGRESS NOTE DATE OF SERVICE: 03/25/2020 REASON FOR FOLLOWUP: Pneumonia and diskitis. INTERVAL HISTORY: Patient is currently afebrile. Had a low grade fever of 99.7 this afternoon. The patient overall is feeling better. Still complaining of some shortness of breath and some chest tightness but minimal cough. No sputum production. No nausea, no vomiting. No abdominal pain or diarrhea. PHYSICAL EXAMINATION: Blood pressure 102/59, pulse of 65, temperature 98, he is 99% on 2 L nasal cannula. General description is a middle-aged male lying in bed in no distress. Respiratory system: Unlabored breathing, decreased breath sounds at the base. No wheeze. Heart S1, S2. Regular rate and rhythm. Abdomen soft, no tenderness. LAB: Hemoglobin 9.5, white count 7.0, BUN of 55, creatinine is 1.51. Blood culture has been negative. DIAGNOSTIC IMPRESSION AND PLAN: Patient admitted to the hospital with fever, concerning for pneumonia. This patient was given treatment for his diskitis . Patient's blood culture has been negative so far. Coronavirus has been negative and white count has normalized. Continue with cefepime and vanco and monitor clinical course closely. MMODL / IJN: [id number] / MTDD
[2020-03-26] MEDS: hydrALAZINE HCL 50 MG TAB PO SCH ×4 (00:16→23:33)
[2020-03-26 05:52] LABS: Glucose,Whole Blood 76 mg/dL (75-99)
[2020-03-26] MEDS: INSULIN ASPART (NovoLOG) 100 UNIT/ML VIAL SQ SCH ×4 (05:52→20:53)
[2020-03-26 06:22] LABS: Basophils % (A) 0 %; Eosinophils # (A) 0.2 k/uL (0-0.7); Eosinophils % (A) 2 %; HCT 34.7 % (39.0-53.0); HGB 10.4 gm/dL (13.0-17.5); Hypochromasia Marked; Lymphocytes # (A) 0.6 k/uL (1.0-4.8); Lymphocytes % (A) 8 %; MCH 27.9 pg (25.0-35.0); MCV 93.2 fL (80.0-100.0); Monocytes # (A) 0.3 k/uL (0-1.0); Monocytes % (A) 5 %; Neutrophils # (A) 6.1 k/uL (1.3-7.7); Neutrophils % (A) 83 %; Platelet Count 135 k/uL (150-450); RBC 3.73 m/uL (4.30-5.90); RDW 15.7 % (11.5-15.5); WBC 7.4 k/uL (3.8-10.6)
[2020-03-26] MEDS: PANTOPRAZOLE 40 MG TABLET PO SCH (06:25)
[2020-03-26 06:30] LABS: Calcium 8.7 mg/dL (8.4-10.2); Potassium 4.1 mmol/L (3.5-5.1)
[2020-03-26] MEDS: oxyCODONE-APAP 10-325MG 1 EACH TAB PO PRN (06:41)
--- NOTE | 2020-03-26 06:59 | XR ---
EXAMINATION TYPE: XR chest 1V portable DATE OF EXAM: 03/26/2020 CLINICAL HISTORY: Difficulty breathing and CHF progress study. TECHNIQUE: Single AP portable upright view of the chest is obtained. COMPARISON: Chest x-ray from 2 days earlier and older studies FINDINGS: Stable left-sided PICC line. There is mild chronic parenchymal changes with patchy left bas ilar opacity. The cardiac silhouette size remains enlarged. Surgical change right shoulder level par tially imaged. IMPRESSION: Cardiomegaly with new patchy left basilar acute infiltrate and/or atelectasis.
[2020-03-26] MEDS ORDERED: VANCOMYCIN IV PER PHARMACY 1 EACH MISC MISCELLANE PRN (07:18)
[2020-03-26 07:39] LABS: Large Platelets Present
[2020-03-26 07:40] LABS: Poikilocytosis (M) Present
[2020-03-26] MEDS: IPRATROPIUM-ALBUTEROL 3 ML NEB INHALATION SCH ×4 (07:52→19:32)
[2020-03-26] MEDS: BUDESONIDE 1 MG/2 ML NEBU INHALATION SCH ×2 (07:52→19:32)
[2020-03-26] MEDS: FORMOTEROL FUMARATE 20 MCG/2 ML NEBU INHALATION SCH ×2 (07:52→19:32)
[2020-03-26 08:09] LABS: Glucose,Whole Blood 86 mg/dL (75-99)
[2020-03-26] MEDS ORDERED: FUROSEMIDE 10 MG/ML 4 ML VIAL IV SCH (09:00)
--- NOTE | 2020-03-26 09:40 | ECHOF ---
Referral Reason:chf MEASUREMENTS -------- HEIGHT: 170.2 cm WEIGHT: 104.3 kg BP: IVSd: 1.1 cm (0.6 - 1.1) LVIDd: 5.3 cm (3.9 - 5.3) LVPWd: 1.5 cm (0.6 - 1.1) IVSs: 1.4 cm LVIDs: 3.6 cm LVPWs: 1.8 cm RVIDd: 4.3 cm (< 3.3) MV E Gab: 0.83 m/s MV DecT: 154 ms MV A Gab: 0.82 m/s MV E/A Ratio: 1.02 RAP: 5.00 mmHg RVSP: 15.50 mmHg FINDINGS -------- Sinus rhythm. This was a techncally difficult study with suboptimal views, , Lumason utilized for enhancement of im ages. Covid positive patient. LV size, wall thickness and systolic function are normal, with an EF greater than 55%. The left can tricular size is normal. The right ventricle is mild to moderately enlarged. The left atrial size is normal. The right atrial size is normal. Lumason used There is mild aortic valve sclerosis. There is no evidence of aortic regurgitation. Mild mitral annular calcification present. Mild mitral regurgitation is present. Mild tricuspid regurgitation present. Right ventricular systolic pressure is normal at < 35 mmHg. The pulmonic valve was not well visualized. There is no pulmonic regurgitation present. The aortic root size is normal. There is no pericardial effusion. 5.0mg OF Lumason UTLIZED: 2 OR MORE WALL SEGMENTS NOT VISUALIZED. CONCLUSIONS -------- 1. This was a techncally difficult study with suboptimal views, , Lumason utilized for enhancement of images. 2. Covid positive patient. 3. LV size, wall thickness and systolic function are normal, with an EF greater than 55%. 4. The left ventricular size is normal. 5. The right ventricle is mild to moderately enlarged. 6. The left atrial size is normal. 7. The right atrial size is normal. 8. Lumason used 9. 5.0mg OF Lumason UTLIZED: 2 OR MORE WALL SEGMENTS NOT VISUALIZED. 10. There is mild aortic valve sclerosis. 11. Mild mitral annular calcification present. 12. Mild mitral regurgitation is present. 13. Mild tricuspid regurgitation present. 14. The pulmonic valve was not well visualized. 15. There is no pulmonic regurgitation present. 16. The aortic root size is normal. 17. There is no pericardial effusion. RELATIONSHIP MGR: Irene Brannon RDCS
[2020-03-26 10:39] LABS: Glucose,Whole Blood 75 mg/dL (75-99)
[2020-03-26] MEDS ORDERED: DEXTROSE 50% SYRINGE 50 ML IVP ONE (10:53)
--- NOTE | 2020-03-26 11:04 | P.PN ---
Subjective Progress Note Date: 03/26/20 Principal diagnosis: Increasing shortness of breath This is a pleasant 70-year-old gentleman who is known to our service from before with coronary artery disease and prior revascularization, chronic diastolic congestive heart failure, chronic kidney disease, hypertension, dyslipidemia, and history of DVT who was admitted to the hospital again with increasing shortness of breath with concerning regarding the pneumonia as well as component of heart failure. The patient was seen this morning 03/26/2020. Unfortunately he is not doing well. He does have change in mental status. Beside that he is in mild respiratory distress. Blood gas is in process to be drawn. Hemodynamically he is stable. The kidney function has been getting worse slightly and because of that point to decrease the dose of Lasix to 20 mg IV daily. Continue monitor the kidney function and electrolytes. The echocardiogram revealed normal left ventricular systolic function with only mild valvular abnormalities. The chest x-ray from today showed new left basilar infiltrates which seems to be acute. Objective - Vital Signs Vital signs: Vital Signs Temp 98.7 F 03/26/20 07:50 Pulse 68 03/26/20 08:14 Resp 20 03/26/20 07:50 BP 116/87 03/26/20 07:50 Pulse Ox 95 03/26/20 07:53 Intake & Output 03/25/20 03/26/20 03/26/20 18:59 06:59 18:59 Intake Total 420 475 240 Output Total 800 Balance -380 475 240 Weight 107 kg Intake: Oral 420 475 240 Output: Urine 800 Other: Voiding Method Urinal Urinal Urinal # Voids 1 1 # Bowel Movements 1 1 - Constitutional General appearance: Present: no acute distress - Respiratory Respiratory: bilateral: wheezing - Cardiovascular Rhythm: regular - Labs CBC & Chem 7: 03/26/20 05:58 03/26/20 05:58 Labs: Abnormal Lab Results - Last 24 Hours (Table) 03/25/20 03/25/20 03/25/20 Range/Units 11:45 16:49 20:16 RBC (4.30-5.90) m/uL Hgb (13.0-17.5) gm/dL Hct (39.0-53.0) % MCHC (31.0-37.0) g/dL RDW (11.5-15.5) % Plt Count (150-450) k/uL Lymphocytes # (1.0-4.8) k/uL Sodium (137-145) mmol/L BUN (9-20) mg/dL Creatinine (0.66-1.25) mg/dL POC Glucose (mg/dL) 232 H 170 H 171 H (75-99) mg/dL 03/26/20 03/26/20 Range/Units 05:58 05:58 RBC 3.73 L (4.30-5.90) m/uL Hgb 10.4 L (13.0-17.5) gm/dL Hct 34.7 L (39.0-53.0) % MCHC 30.0 L (31.0-37.0) g/dL RDW 15.7 H (11.5-15.5) % Plt Count 135 L (150-450) k/uL Lymphocytes # 0.6 L (1.0-4.8) k/uL Sodium 135 L (137-145) mmol/L BUN 60 H (9-20) mg/dL Creatinine 1.73 H (0.66-1.25) mg/dL POC Glucose (mg/dL) (75-99) mg/dL Microbiology - Last 24 Hours (Table) 03/23/20 11:59 Blood Culture - Preliminary Blood No Growth after 48 hours 03/23/20 11:59 Blood Culture - Preliminary Blood No Growth after 48 hours Assessment and Plan Assessment: Assessment #1 increasing shortness of breath likely related to pneumonia more than heart failure #2 chronic diastolic congestive heart failure #3 coronary artery disease with prior stenting seems to be stable #4 history of DVT #5 sleep apnea #6 multiple comorbid conditions Plan #1 decrease the dose of Lasix to 20 mg IV daily #2 continue monitor his kidney function as well as electrolytes #3 follow-up with the patient
[2020-03-26 11:20] LABS: Glucose,Whole Blood 107 mg/dL (75-99)
[2020-03-26 11:23] LABS: ABG Base Excess -0.3 mmol/L; ABG HCO3 25 mmol/L (21-25); ABG Oxygen Saturation 90.2 % (94-97); ABG PCO2 41 mmHg (35-45); ABG PH 7.39 (7.35-7.45); ABG TCO2 26 mmol/L (19-24); Allen Test Performed? Yes
[2020-03-26 11:28] LABS: ABG PO2 57 mmHg (83-108)
[2020-03-26] MEDS ORDERED: ACETAMINOPHEN IV (For NPO) 1,000 MG in EMPTY BAG 1 BAG IVPB ONE (11:34)
[2020-03-26] MEDS ORDERED: HALOPERIDOL LACTATE 5 MG/ML 1 ML VIAL IVP ONE (11:40)
--- NOTE | 2020-03-26 12:52 | P.PN ---
Subjective Progress Note Date: 03/26/20 Principal diagnosis: Febrile illness of unclear etiology This is a very pleasant 70-year-old gentleman who follows with Dr. Keene is his primary care provider. He has a history of hypertension, hyperlipidemia, GERD, diastolic congestive heart failure, coronary artery disease with previous stent placement, history of right upper extremity DVT, on Eliquis, degenerative joint disease, obesity, obstructive sleep apnea maintained on CPAP in the outpatient setting. He also has a history of chronic tobacco dependence and chronic obstructive pulmonary disease and follows with Dr. Chang in our office for the same. Maintained on DuoNeb inhalations, Breo. On prednisone 10 mg daily. He does wear his CPAP nightly. He has oxygen at 2 L at night as well. He presented to the emergency room yesterday with complaints of fever. Presenting temperature 102.9. He is having some occasional shortness of breath and nonproductive cough. Somewhat nauseated with an episode of emesis times one. No abdominal discomfort. No diarrhea. He does have chronic low back pain including discitis and had been on IV antibiotics for the same. Chest x-ray reveals mild right lower lobe infiltrate which is nonspecific and seen on previous x-rays. CT angiogram revealed no evidence of monilia emboli. Scattered bilateral areas of subsegmental atelectasis. The patient is seen today in consultation on the regular medical floor. He apparently took a fall in the bathroom earlier this morning. Computed tomography scan of the brain revealed no acute intracranial hemorrhage or midline shift. He denied any loss of consciousness. He is awake and alert in no acute distress. He is maintai derrick good O2 saturations in the 90s on room air. He's currently afebrile. White count 7.1. Hemoglobin 9.9. Platelet count 1:30. Glipizide 0.5. D-dimer 1.74. Sodium 140. Potassium 4.7. Creatinine 1.5. ProBNP 1220. Pro-calcitonin 1.55. Hollingsworth virus not detected. He's been initiated on Symbicort, albuterol, prednisone, antibiotics in the form of cefepime, vancomycin. ID is on the case. The patient is seen today 03/26/2020 in follow-up on the selective care unit. He is more restless and confused this morning. He had blood glasses done last evening that revealed a pO2 of 101, pCO2 of 60 and a pH is 7.30. That was on 30% FiO2. He was subsequently placed on BiPAP 14/6 and 21% FiO2 and this morning's blood gases revealed a pO2 of 57, pCO2 41, pH 7.39. His FiO2 was increased to 28%. He is tachypneic and tachycardic this morning. Temperature 98.7 axillary. White count 7.4. Hemoglobin 10.4. White count 135. He is on bronchodilators, cefepime. Objective - Vital Signs Vital signs: Vital Signs Temp 98.7 F 03/26/20 11:00 Pulse 124 H 03/26/20 11:55 Resp 40 H 03/26/20 11:55 BP 163/72 03/26/20 11:00 Pulse Ox 90 L 03/26/20 11:00 Intake & Output 03/25/20 03/26/20 03/26/20 18:59 06:59 18:59 Intake Total 420 475 240 Output Total 800 Balance -380 475 240 Weight 107 kg Intake: Oral 420 475 240 Output: Urine 800 Other: Voiding Method Urinal Urinal Urinal # Voids 1 1 # Bowel Movements 1 1 - Exam GENERAL EXAM: Diffuse, restless 70-year-old gentleman, on BiPAP 14/628% FiO2, comfortable in no apparent distress. HEAD: Normocephalic. EYES: Normal reaction of pupils, equal size. NOSE: Clear with pink turbinates. THROAT: No erythema or exudates. NECK: No masses, no JVD. CHEST: No chest wall deformity. LUNGS: Equal air entry with scattered crackles in the posterior bases. CVS: S1 and S2 normal with no audible murmur, regular rhythm. ABDOMEN: No hepatosplenomegaly, normal bowel sounds, no guarding or rigidity. SPINE: No scoliosis or deformity SKIN: No rashes CENTRAL NERVOUS SYSTEM: No focal deficits, tone is normal in all 4 extremities. EXTREMITIES: There is no peripheral edema. No clubbing, no cyanosis. Peripheral pulses are intact. - Labs CBC & Chem 7: 03/26/20 05:58 03/26/20 05:58 Labs: Abnormal Lab Results - Last 24 Hours (Table) 03/25/20 03/25/20 03/26/20 Range/Units 16:49 20:16 05:58 RBC 3.73 L (4.30-5.90) m/uL Hgb 10.4 L (13.0-17.5) gm/dL Hct 34.7 L (39.0-53.0) % MCHC 30.0 L (31.0-37.0) g/dL RDW 15.7 H (11.5-15.5) % Plt Count 135 L (150-450) k/uL Lymphocytes # 0.6 L (1.0-4.8) k/uL ABG pO2 (83-108) mmHg ABG Total CO2 (19-24) mmol/L ABG O2 Saturation (94-97) % Sodium (137-145) mmol/L BUN (9-20) mg/dL Creatinine (0.66-1.25) mg/dL POC Glucose (mg/dL) 170 H 171 H (75-99) mg/dL 03/26/20 03/26/20 03/26/20 Range/Units 05:58 11:13 11:19 RBC (4.30-5.90) m/uL Hgb (13.0-17.5) gm/dL Hct (39.0-53.0) % MCHC (31.0-37.0) g/dL RDW (11.5-15.5) % Plt Count (150-450) k/uL Lymphocytes # (1.0-4.8) k/uL ABG pO2 57 L* (83-108) mmHg ABG Total CO2 26 H (19-24) mmol/L ABG O2 Saturation 90.2 L (94-97) % Sodium 135 L (137-145) mmol/L BUN 60 H (9-20) mg/dL Creatinine 1.73 H (0.66-1.25) mg/dL POC Glucose (mg/dL) 107 H (75-99) mg/dL Microbiology - Last 24 Hours (Table) 03/23/20 11:59 Blood Culture - Preliminary Blood No Growth after 48 hours 03/23/20 11:59 Blood Culture - Preliminary Blood No Growth after 48 hours Assessment and Plan Assessment: 1 Febrile illness of unclear etiology. Presenting temperature 102.9. Currently afebrile. Blood cultures revealing no growth to date. Pro Calcitonin 1.55. Early on cefepime 2 Spine discitis with Streptococcus bacteremia currently on IV cefazolin in the outpatient setting 3 Chronic changes of the right lower lobe with atelectasis and possible early pneumonia. Today's chest x-ray 03/26/2020 reveals a new patchy left basilar infiltrate/atelectasis 4 Chronic obstructive pulmonary disease, currently inactive in stable 5 Chronic hypoxemic respiratory failure secondary to above, on home oxygen 6 Obstructive sleep apnea utilizing CPAP in the outpatient setting 7 Morbid obesity 8 Prior history of chronic tobacco dependence 9 Degenerative disc disease 10 Coronary artery disease with previous stent placement 11 History of diastolic congestive heart failure 12 Hypertension 13 Hyperlipidemia Plan: The patient was seen and evaluated by Dr. Neal Chest x-ray, ABGs and labs reviewed Increased FiO2 to 28%, BiPAP 14/6 Continue Symbicort, albuterol Antibiotics per ID services Change in patient's altered mental status, computed tomography scan of the head pending We will continue to follow and make further recommendations based on his clinical status I, the cosigning physician, performed a history & physical examination of the patient. Lungs sounds are coarse crackles in the bilateral bases. Maintaining good O2 saturations in the 90s on BiPAP 14/6 and 28% FiO2. I discussed the assessment and plan of care with my nurse practitioner, Judi Crawford. I attest to the above note as dictated by her.
[2020-03-26] MEDS ORDERED: VANCOMYCIN TROUGH DUE 1 EACH MISC MISCELLANE ONE (13:00)
--- NOTE | 2020-03-26 13:06 | XR ---
EXAMINATION TYPE: XR chest 1V portable DATE OF EXAM: 03/26/2020 CLINICAL HISTORY: Difficulty breathing and weakness progress study. TECHNIQUE: Single AP portable upright view of the chest is obtained. COMPARISON: Chest x-ray from earlier today and older studies FINDINGS: Stable left-sided PICC line. There is mild chronic parenchymal changes with patchy bibasila r opacities. Mild cardiomegaly redemonstrated. Surgical change right shoulder level partially imaged. IMPRESSION: Mild cardiomegaly with patchy bibasilar acute infiltrate and/or atelectasis.
--- NOTE | 2020-03-26 13:06 | P.EN ---
A- team: Indication: Altered mentation Arrived to the room. Dr. Collado at bedside. Patient had altered mentation and ABG had been obtained 7.//10/15. Joseph Neal had been contacted by nursing and recommended decreasing FiO2. Patient seen and examined at bedside. He is counting and trying to climb out of bed. Does not answer questions. Patient refused to wear Bipap last night. Vital signs reviewed General: non toxic, mild distress, appears at stated age, Obese Derm: warm, dry Cardiovascular: S1S2 tachy, no murmur Lungs: Course bs bilateral bilateral, no rhonchi, no rales , on Bipap Ext: no gross muscle atrophy, no edema, no contractures Neuro: moving all over he bed, grabing at BiPap Psych: + hallucinations Assessment/Plan: 1. Altered mentation - ABG per Pulm recommendations - stop Oxycodone - Recheck Head CT due to recent fall - Limit sedative agents - Haldol X 1 (Tele with [facility] 420. ) - Pyrexia- IV acetominophen X1 Notified: Dr. Collado at bedside, nurse spoke with Dr. Neal over the pone
--- NOTE | 2020-03-26 15:17 | PN ---
PROGRESS NOTE DATE OF SERVICE: 03/26/2020 HISTORY OF PRESENT ILLNESS: This 70-year-old gentleman was admitted with shortness of breath and cough and bilateral pneumonia with acute hypoxic hypercapnic respiratory failure. He is being closely monitored. The patient today has taken a turn for the worse and the patient has more shortness of breath. The patient is started on partial non-rebreather mask. The most recent chest x-ray which was reviewed personally by me showed patchy bibasilar infiltrates. The patient is being closely monitored at this time. The patient is currently on cefepime per Infectious Disease recommendations, and vancomycin. PAST MEDICAL HISTORY: Reviewed. REVIEW OF SYSTEMS: Could not be taken. The patient is confused at this time. CURRENT MEDICATIONS ARE: DuoNeb, Eliquis, aspirin, Lipitor, Pulmicort, cefepime, Perforomist, Lasix, cefazolin. Doses are reviewed. PHYSICAL EXAM: GENERAL: Patient is conscious, confused. VITAL SIGNS: Pulse 133, blood pressure 163/72, respirations 26, temperature 98.7, pulse ox 90% on BiPAP. HEENT: Conjunctivae normal. Oral mucosa moist. NECK: No jugular venous distention. No carotid bruits. No lymph node enlargement. RESPIRATORY: Breath sounds diminished at the bases. Bilateral scattered rhonchi and crackles. HEART: S1 and S2, muffled. ABDOMEN: Soft, obese, no tenderness. EXTREMITIES: No edema, no swelling. NERVOUS: Moves all four limbs. LABS: ABGs noted. WBC 7.2, hemoglobin 10.4. COVID-19 is negative. ASSESSMENT: 1. Shortness of breath and cough for possible bilateral pneumonia with acute hypoxic respiratory failure, right more than the left, hypoxic, hypercarbic. 2. Congestive heart failure acute exacerbation with acute on chronic diastolic dysfunction. 3. Acute on chronic renal failure with acute tubular necrosis. 4. Elevated BNP. 5. Elevated plasma lactic acid with possible sepsis present on admission. 6. Hypomagnesemia. 7. Change in mental status secondary to metabolic encephalopathy multifactorial. 8. Use AST. 9. Elevated LDH and CRP. 10.Increased WBC. 11.Anemia, normocytic. 12.Thrombocytopenia. 13.History of recent diskitis with alpha hemolytic staphylococci in the blood culture. 14.On PICC line in the left arm with IV antibiotics. 15.History of History of coronary artery disease. 16.History of congestive heart failure with ejection fraction unknown. 17.History of chronic obstructive pulmonary disease. 18.History of deep vein thrombosis. 19.Gastroesophageal reflux disease. 20.Hypertension. 21.Hyperlipidemia. 22.History of degenerative joint disease. 23.History of prostate disorder. 24.History of sleep apnea. 25.History of recent sepsis secondary to diskitis. 26.Urinary retention. Finch catheter. 27.History of deep venous thrombosis of the right arm. 28.History of lower leg cellulitis. 29.Obstructive sleep apnea. 30.Nonsustained tachycardia. 31.History of transient ischemic attack. 32.History of benign prostatic hypertrophy. 33.History of colonic polyps. 34.History of back surgery and degenerative joint disease. 35.History of coronary artery disease, stent. 36.History of nicotine dependence. 37.Obesity with body mass index of 37.1. RECOMMENDATION AND DISCUSSION: Recommend to continue current management and continue symptomatic treatment. Continue with antibiotics. Continue to monitor. Continue BiPAP. Closely follow with multiple consultants. Prognosis is extremely guarded because of multiple complex medical issues. CT scan of the brain will be ordered. A 2D echo with Doppler was also done on 03/25/2020, which showed minimal valvular abnormalities. Ejection fraction more than 55%. Prognosis guarded because of multiple complex medical issues. Further recommendations to follow. Ensure oxygenation: COVID-19 has been negative twice, the rapid and the PCR testing. MMODL / IJN: [id number] / MTDD
[2020-03-26] MEDS: CEFEPIME 2 GM in SODIUM CHLORIDE 0.9% 100 ML IVPB SCH ×2 (16:24→20:53)
[2020-03-26] MEDS: APIXABAN 5 MG TAB PO SCH ×2 (16:25→20:53)
[2020-03-26] MEDS: METOPROLOL TARTRATE 50 MG TAB PO SCH ×2 (16:25→20:53)
[2020-03-26] MEDS: MAGNESIUM OXIDE 400 MG TAB PO SCH (16:25)
[2020-03-26] MEDS: COLCHICINE 0.6 MG EACH PO SCH (16:25)
[2020-03-26] MEDS: TAMSULOSIN 0.4 MG CAP.ER.24H PO SCH (16:25)
[2020-03-26] MEDS: ASPIRIN 81 MG PO SCH (16:25)
[2020-03-26] MEDS: IBUPROFEN 400 MG TAB PO PRN ×2 (16:27→21:42)
--- NOTE | 2020-03-26 16:59 | CT ---
EXAMINATION TYPE: CT brain wo con DATE OF EXAM: 03/26/2020 COMPARISON: 03/24/2020 HISTORY: ams CT DLP: 1139.4 mGycm Automated exposure control for dose reduction was used. There is mild cerebral atrophy. There is no mass effect nor midline shift. There is no sign of intrac ranial hemorrhage. Calvarium is intact. Skull base is intact. IMPRESSION: Cerebral atrophy slightly worse in the frontal lobes. No acute intracranial abnormality. No change co mpared to recent exam.
[2020-03-26 17:05] LABS: Glucose,Whole Blood 94 mg/dL (75-99)
[2020-03-26] MEDS: SPIRONOLACTONE 25 MG TAB PO SCH (17:05)
[2020-03-26] MEDS: methylPREDNISolone SOD SUCCI 125 MG/2 ML VIAL IV SCH ×2 (18:45→23:38)
[2020-03-26 20:37] LABS: Glucose,Whole Blood 154 mg/dL (75-99)
[2020-03-26] MEDS: ATORVASTATIN 80 MG TAB PO SCH (20:53)
[2020-03-26] MEDS: QUEtiapine 25 MG TAB PO SCH (20:53)
[2020-03-26] MEDS: INSULIN DETEMIR (LEVEMIR) 100 UNIT/ML SYR SQ SCH (20:54)
[2020-03-26] MEDS: PRAMIPEXOLE 1 MG TAB PO SCH (21:42)
--- NOTE | 2020-03-26 22:29 | PN ---
PROGRESS NOTE DATE OF SERVICE: 03/26/2020 REASON FOR FOLLOWUP: Pneumonia and discitis. INTERVAL HISTORY: The patient is currently afebrile. He still has excessive diarrhea and some tachypnea earlier and has been put on BiPAP subsequently. Currently on nasal cannula oxygen. The patient denies having any chest pain. He did have a minimal cough. No nausea, vomiting, abdominal pain or diarrhea. PHYSICAL EXAMINATION: Blood pressure 127/62 with a pulse of 73, temperature 98.3. He is 97% on 2 L nasal cannula. General description is an elderly male up in the bed in no distress. Respiratory system: Unlabored breathing, decreased intensity of breath sounds. No wheeze. Heart S1, S2. Regular rate and rhythm. Abdomen soft. No tenderness. LABS: Hemoglobin is 10.4, white count 7.4, BUN of 16, creatinine 1.73. Vancomycin trough is slightly on the high side. DIAGNOSTIC IMPRESSION AND PLAN: Patient admitted to the hospital with fever concerning for pneumonia. This patient with discitis and was on outpatient Cefazolin with elevated Vanco trough and culture negative for resistant pathogen. Vancomycin will be discontinued. Covered with cefepime and Levaquin and monitor clinical course closely. MMODL / IJN: [id number] /
[2020-03-27] MEDS: INSULIN ASPART (NovoLOG) 100 UNIT/ML VIAL SQ SCH ×4 (06:22→21:11)
[2020-03-27 06:23] LABS: Glucose,Whole Blood 108 mg/dL (75-99)
[2020-03-27] MEDS: methylPREDNISolone SOD SUCCI 125 MG/2 ML VIAL IV SCH ×3 (06:25→23:33)
[2020-03-27] MEDS: PANTOPRAZOLE 40 MG TABLET PO SCH (06:25)
[2020-03-27] MEDS: BUDESONIDE 1 MG/2 ML NEBU INHALATION SCH ×2 (07:25→20:14)
[2020-03-27] MEDS: IPRATROPIUM-ALBUTEROL 3 ML NEB INHALATION SCH ×4 (07:25→20:14)
[2020-03-27] MEDS: FORMOTEROL FUMARATE 20 MCG/2 ML NEBU INHALATION SCH ×2 (07:25→20:14)
[2020-03-27 08:19] LABS: Calcium 8.6 mg/dL (8.4-10.2); Potassium 5.5 mmol/L (3.5-5.1)
[2020-03-27 08:40] LABS: Basophils % (A) 0 %; Eosinophils % (A) 0 %; HCT 31.8 % (39.0-53.0); HGB 9.9 gm/dL (13.0-17.5); Hypochromasia Moderate; Lymphocytes # (A) 0.5 k/uL (1.0-4.8); Lymphocytes % (A) 11 %; MCH 28.5 pg (25.0-35.0); MCHC 31.1 g/dL (31.0-37.0); MCV 91.7 fL (80.0-100.0); Mean Platelet Volume 11.3; Monocytes # (A) 0.2 k/uL (0-1.0); Monocytes % (A) 4 %; Neutrophils # (A) 3.6 k/uL (1.3-7.7); Neutrophils % (A) 83 %; Platelet Count 154 k/uL (150-450); RBC 3.47 m/uL (4.30-5.90); RDW 15.8 % (11.5-15.5); WBC 4.3 k/uL (3.8-10.6)
[2020-03-27] MEDS ORDERED: FUROSEMIDE 10 MG/ML 2 ML VIAL IV SCH (09:00)
[2020-03-27 09:19] LABS: Vancomycin,Random 18.9 ug/mL
[2020-03-27] MEDS: APIXABAN 5 MG TAB PO SCH ×2 (09:27→21:10)
[2020-03-27] MEDS: MAGNESIUM OXIDE 400 MG TAB PO SCH (09:27)
[2020-03-27] MEDS: COLCHICINE 0.6 MG EACH PO SCH (09:27)
[2020-03-27] MEDS: QUEtiapine 25 MG TAB PO SCH ×2 (09:27→21:10)
[2020-03-27] MEDS: hydrALAZINE HCL 50 MG TAB PO SCH ×3 (09:27→23:32)
[2020-03-27] MEDS: ASPIRIN 81 MG PO SCH (09:27)
[2020-03-27] MEDS: METOPROLOL TARTRATE 50 MG TAB PO SCH ×2 (09:27→21:10)
[2020-03-27] MEDS: TAMSULOSIN 0.4 MG CAP.ER.24H PO SCH (09:28)
[2020-03-27] MEDS: CEFEPIME 2 GM in SODIUM CHLORIDE 0.9% 100 ML IVPB SCH ×2 (09:28→21:08)
[2020-03-27] MEDS ORDERED: ACETAMINOPHEN TAB 325 MG TAB PO PRN ×2 (11:14→11:16)
[2020-03-27 11:45] LABS: Glucose,Whole Blood 341 mg/dL (75-99)
--- NOTE | 2020-03-27 12:03 | P.NPCON ---
History of Present Illness - Reason for Consult acute renal failure - History of Present Illness Reason for consultation: Acute kidney injury History of present illness: Patient is a 70-year-old male seen in renal consultation for acute kidney injury. Patient presented to the hospital on 03/23/2020 with fever. Patient was receiving antibiotics via PICC line for lumbar discitis. Vancomycin level was noted to be elevated at 27 and has not been discontinued. Patient's been receiving Motrin as needed for the fever. Additionally he was also on IV Lasix 40 mg daily and was decreased to 20 mg daily. He was also noted to have urinary retention last night and underwent straight catheterization with 1 L of urine drained. This morning he did void 500 mL of urine in bladder scan revealed a little over 100 mL of urine. She denies chest pain or shortness of breath. No vomiting or diarrhea. He also received IV contrast dye on 03/24/2020 for a CTA which revealed no evidence of PE. Blood pressure stable. Creatinine was 1.12 on admission and is up to 1.9 today. Creatinine as of December 2019 was 0.7-0.8. He does have long-standing history of diabetes mellitus. UA is benign. Vital signs are stable. General: The patient appeared well nourished and normally developed. HEENT: Head exam is unremarkable. Neck is without jugular venous distension. LUNGS: Breath sounds decreased. HEART: Rate and Rhythm are regular. ABDOMEN: Soft, nontender. EXTREMITITES: Trace edema. 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 History of Any Multi-Drug Resistant Organisms: None Reported Past Surgical History: Back Surgery, Heart Catheterization With Stent, Joint Replacement, Orthopedic Surgery Additional Past Surgical History / Comment(s): Bilateral knee arthroscopies, total L knee arthroplasty, R total shoulder arthroplasty, L hand injury with repair, low back surgery, PCI with 3 stents, colonoscopies/polypectomies, lumbar epidural injections, bilateral cataract removals/lens implants. Past Anesthesia/Blood Transfusion Reactions: No Reported Reaction Additional Past Anesthesia/Blood Transfusion Reaction / Comment(s): STATES "HAD A HARD TIME WITH BREATHING POST OP" Date of Last Stent Placement:: 2009 Past Psychological History: No Psychological Hx Reported Additional Psychological History / Comment(s): Pt resides with his spouse. He uses no assistive device. He drives. Pt served in the [employer]. Smoking Status: Former smoker Past Alcohol Use History: None Reported Additional Past Alcohol Use History / Comment(s): QUIT SMOKING IN 2009, STARTED 1962, SMOKED 2 PPD Past Drug Use History: None Reported - Past Family History Father Family Medical History: CVA/TIA, Hyperlipidemia, Hypertension Mother Family Medical History: Hypertension Medications and Allergies Home Medications Medication Instructions Recorded Confirmed Type Nitroglycerin Sl Tabs [Nitrostat] 0.4 mg SL Q5M PRN 03/09/14 03/23/20 History Atorvastatin [Lipitor] 80 mg PO HS 05/08/15 03/23/20 History Fluticasone/Vilanterol [Breo 1 puff INHALATION RT-HS 03/12/18 03/23/20 History Ellipta 100-25 Mcg Inhaler] Ipratropium-Albuterol Nebulize 3 ml INHALATION RT-QID PRN 09/02/19 03/23/20 History [Duoneb 0.5 mg-3 mg/3 ml Soln] Pramipexole Di-HCl [Mirapex] 1 mg PO HS 09/02/19 03/23/20 History Apixaban [Eliquis] 5 mg PO Q12H 11/01/19 03/23/20 History Ketoconazole [Ketoconazole 2% 1 applic TOPICAL Q72H 11/01/19 03/23/20 History Shampoo] QUEtiapine [SEROquel] 25 mg PO HS tab 11/17/19 03/23/20 Rx Omeprazole 20 mg PO AC-BRKFST 11/23/19 03/23/20 History Tamsulosin [Flomax] 0.4 mg PO DAILY 11/23/19 03/23/20 History Aspirin EC [Ecotrin Low Dose] 81 mg PO DAILY 12/09/19 03/23/20 History Furosemide [Lasix] 40 mg PO DAILY #0 12/17/19 03/23/20 Rx Metoprolol Tartrate [Lopressor] 50 mg PO BID #60 tab 12/17/19 03/23/20 Rx Pregabalin [Lyrica] 75 mg PO BID #60 cap 12/17/19 03/23/20 Rx ceFAZolin [Kefzol] 2 gm IVP Q8HR #126 vial 12/17/19 03/23/20 Rx Colchicine 0.6 mg PO BID 03/23/20 03/23/20 History Furosemide [Lasix] 20 mg PO HS 03/23/20 03/23/20 History Magnesium 250 mg PO DAILY 03/23/20 03/23/20 History Spironolactone [Aldactone] 25 mg PO DAILY 03/23/20 03/23/20 History hydrALAZINE HCL 50 mg PO Q8HR 03/23/20 03/23/20 History oxyCODONE-APAP 10-325MG [Percocet 1 tab PO QID PRN 03/23/20 03/23/20 History 10-325 mg] predniSONE 10 mg PO DAILY 03/23/20 03/23/20 History Insulin Glargine [Lantus] 30 unit SQ HS 03/25/20 03/25/20 History Allergies Allergy/AdvReac Type Severity Reaction Status Date / Time acetaminophen [From Tylenol] AdvReac kidney/liver Verified 03/23/20 14:43 issues prednisone AdvReac Extreme Verified 03/23/20 14:43 aggression with high doses Physical Exam Vitals: Vital Signs Temp Pulse Pulse Resp BP Pulse Ox 03/27/20 08:00 97.4 F L 98 18 146/68 96 03/27/20 07:47 78 03/27/20 07:36 78 03/27/20 07:35 78 03/27/20 07:25 78 97 03/27/20 04:30 22 94 L 03/27/20 04:00 97.4 F L 74 30 H 108/73 92 L 03/27/20 02:00 64 18 03/27/20 00:11 88 03/27/20 00:00 18 03/26/20 23:59 97.8 F 64 18 152/65 98 03/26/20 23:56 84 03/26/20 21:00 98.4 F 03/26/20 20:00 97.8 F 81 18 124/61 97 03/26/20 19:54 80 03/26/20 19:47 80 03/26/20 19:46 80 03/26/20 19:34 78 03/26/20 15:55 98.3 F 78 18 127/62 97 03/26/20 12:40 98.7 F 03/26/20 11:55 124 H 40 H Intake and Output 03/26/20 03/27/20 03/27/20 22:59 06:59 14:59 Intake Total 236 150 780 Output Total 300 1000 550 Balance -64 -850 230 Intake: Oral 236 150 780 Output: Urine 300 1000 550 Uretheral (Granados) 1000 Post Void Residual 0 Other: Voiding Method Urinal Urinal Urinal # Voids 0 # Bowel Movements 1 Weight 106 kg Results - Lab Results Most recent lab results ABG pH 7.39 (7.35-7.45) 03/26/20 11:13 ABG pCO2 41 mmHg (35-45) 03/26/20 11:13 ABG pO2 57 mmHg (83-108) L* 03/26/20 11:13 ABG HCO3 25 mmol/L (21-25) 03/26/20 11:13 ABG O2 Saturation 90.2 % (94-97) L 03/26/20 11:13 Calcium 8.6 mg/dL (8.4-10.2) 03/27/20 06:40 Magnesium 1.7 mg/dL (1.5-2.4) 03/24/20 06:50 03/27/20 06:40 03/27/20 06:40 Assessment and Plan Plan: Assessment: 1. Acute kidney injury secondary to ATN secondary to contrast-induced acute kidney injury and further worsened with the use of nonsteroidals and diuretics. Also component of urinary retention. Baseline creatinine near 1 and is up to 1.9 today. UA benign. 2. Urinary retention status post catheterization last night with over 1 L of urine drained. On Flomax. 3. Lumbar discitis maintained on antibiotics. 4. Mild hyperkalemia secondary to acute kidney injury, Motrin and hyperglycemia. 5. Diabetes mellitus. Plan: Monitor bladder scans closely. To insert Granados catheter if over 300 mL of urine present. Stop Motrin. Stop Lasix. Low potassium diet. Repeat potassium level this evening. Tight blood sugar control. Continue to monitor renal function and urine output.
--- NOTE | 2020-03-27 12:47 | P.CNNES ---
History of Present Illness Consult date: 03/27/19 Requesting physician: Isabell Huertas Reason for Consult: episode of unresponsiveness History of Present Illness: This is a 70-year-old gentleman with medical history of hypertension, hyperlipidemia, diastolic congestive heart failure, coronary artery disease status post stenting, right upper tremor DVT on Eliquis, degenerative joint disease, obesity, obstructive sleep apnea on CPAP as well as tobacco dependence that presented to the emergency department on 03/23/2020 with complaints of fever. He also complaining of having occasional shortness of breath and nonproductive cough on presentation per medical records. On presented to the hospital he had a temperature of 102.9. Per the primary recent note he mentions that the patient was admitted for shortness of breath cough and bilateral pneumonia with acute hypoxic hypercapnic respiratory failure at. It seems that the patient the has been more short of breath. Today the patient was wide awake and responsive answering all questions. Per the patient nurse during his hospital stay he was getting the opiates which was stopped. The patient stated he was given a diagnosis of mixed connective tissue disease at [facility] and has not followed up with them. Infection disease is on board and they stated that the patient likely has pneumonia. They also mentioned that the patient the history of discitis and was on all patient on outpatient Cefazolin and vancomycin but the cultures are negative for resistant pathogen. As a result vancomycin the will be dis continued. And the as a result the patient is being covered with cefepime and Levaquin. Workup in the hospital consisted of: As mentioned above the initial temperature was 102.9 Fahrenheit oral, blood pressure 130/61, heart rate of 98, respiratory of 22, pulse ox of 90 L at room air and then the patient was requiring the in the first day 3 L of nasal cannula. Since he's been the hospital the fever has resolved. Patient had a CT of the head 03/24/2020 and it was reported as no acute intracr anial hemorrhage or midline shift. There is mild to moderate diffuse age- related cerebral atrophy and chronic small vessel ischemic changes redemonstrated. No significant change from prior. He seemed to the patient received the 2 CT of the head on the same day and the next reported mentioned that negative CT of the brain that. No change. Mild atrophy. I'll not sure if the repeat CT of the head done twice on the same day was the by mistake. Since the patient continued to have altered mental status and seems worsening the patient had a repeated one on 03/26/2020 and was reported reported as cerebral atrophy slightly worse in the frontal lobes. No acute intracranial abnormality. No change compared to recent exam off 03/24/2020. 2-D echo was reported as left ventricle size, wall thickness and systolic function are normal, ejection fraction greater than 55%. Left atrial size is normal. EKG is reported as sinus otorrhea, ventricle rate of 102, otherwise normal EKG. On initial presentation the patient's blood blood cell was 10.7 and in the repeated to has been normal. Initial glucose as a 137 and at serum. Magnesium is 1.2 on initial presentation. On initial presentation creatinine is 1.12 but the most recent one is 1.73 at. His ABGs looks acidotic with a CO2 of 61 on presentation and bicarbonate 29 CO2 was 31 the latest is that the PaO2 is a 57 and that was on 03/26/2020 Of note the patient was seen by my colleague Dr. King in the hospital on 12/10/2019 for altered mental status, agitation and the delirium. The patient had a routine EEG on 12/16/2019 and was reported as normal. Dr. Israel's last notes in December 17, 2019 and he mentioned that the patient had altered mental status due to toxic metabolic to flip atrophy and his mentation improved. He also stated the patient had this discitis/osteomyelitis lower lumbar spine. And possible mixed connective tissue disorder possible underlying diabetes and neuropathy. As well as recurrent back spasm, likely due to discitis/osteomyelitis. He also mentioned that the serum protein electrophoresis any new difficult fixation which are pheresis revealed small monoclonal IgG, Midrin 0.07. Consider hematology consultation for possible monoclonal gammopathy rule out. 2 anemia. The MRI of the cervical spine showed no epidural abscess. For the details of the workup referred to Dr. King's note. Review of Systems The template review of system the was reviewed and apparent positive and negative as per HPI. Past Medical History Past Medical History: Coronary Artery Disease (CAD), Chest Pain / Angina, Heart Failure, COPD, Deep Vein Thrombosis (DVT), GERD/Reflux, Hyperlipidemia, Hypertension, Osteoarthritis (OA), Pneumonia, Prostate Disorder, Respiratory Disorder, Sleep Apnea/CPAP/BIPAP Additional Past Medical History / Comment(s): 11/2019 severe sepsis secondary to discitis and currently receiving IV antibiotics thru picc line, past urinary retention with granados during sepsis, pt states he has kidney problem and is to follow with special needs librarian, DVT R arm/sepsis d/t bilateral lower leg cellulitis, venous insufficiency/lower leg/pedal edema, spondylolsis, cervical and low back pain, DDD, chronic respiratory failure, CALLI with Cpap/O2 at 4L/NC at HS, nonsustained vtach, TIAs, small vessel disease, IDDM type II, neuropathy, BPH, diverticular disease, colon polyps-benign, sinus problems, seasonal allergies. 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 History of Any Multi-Drug Resistant Organisms: None Reported Past Surgical History: Back Surgery, Heart Catheterization With Stent, Joint Replacement, Orthopedic Surgery Additional Past Surgical History / Comment(s): Bilateral knee arthroscopies, total L knee arthroplasty, R total shoulder arthroplasty, L hand injury with repair, low back surgery, PCI with 3 stents, colonoscopies/polypectomies, lumbar epidural injections, bilateral cataract removals/lens implants. Past Anesthesia/Blood Transfusion Reactions: No Reported Reaction Additional Past Anesthesia/Blood Transfusion Reaction / Comment(s): STATES "HAD A HARD TIME WITH BREATHING POST OP" Date of Last Stent Placement:: 2009 Past Psychological History: No Psychological Hx Reported Additional Psychological History / Comment(s): Pt resides with his spouse. He uses no assistive device. He drives. Pt served in the [employer]. Smoking Status: Former smoker Past Alcohol Use History: None Reported Additional Past Alcohol Use History / Comment(s): QUIT SMOKING IN 2009, STARTED 1962, SMOKED 2 PPD Past Drug Use History: None Reported - Past Family History Father Family Medical History: CVA/TIA, Hyperlipidemia, Hypertension Mother Family Medical History: Hypertension Medications and Allergies Home Medications Medication Instructions Recorded Confirmed Type Nitroglycerin Sl Tabs [Nitrostat] 0.4 mg SL Q5M PRN 03/09/14 03/23/20 History Atorvastatin [Lipitor] 80 mg PO HS 05/08/15 03/23/20 History Fluticasone/Vilanterol [Breo 1 puff INHALATION RT-HS 03/12/18 03/23/20 History Ellipta 100-25 Mcg Inhaler] Ipratropium-Albuterol Nebulize 3 ml INHALATION RT-QID PRN 09/02/19 03/23/20 History [Duoneb 0.5 mg-3 mg/3 ml Soln] Pramipexole Di-HCl [Mirapex] 1 mg PO HS 09/02/19 03/23/20 History Apixaban [Eliquis] 5 mg PO Q12H 11/01/19 03/23/20 History Ketoconazole [Ketoconazole 2% 1 applic TOPICAL Q72H 11/01/19 03/23/20 History Shampoo] QUEtiapine [SEROquel] 25 mg PO HS tab 11/17/19 03/23/20 Rx Omeprazole 20 mg PO AC-BRKFST 11/23/19 03/23/20 History Tamsulosin [Flomax] 0.4 mg PO DAILY 11/23/19 03/23/20 History Aspirin EC [Ecotrin Low Dose] 81 mg PO DAILY 12/09/19 03/23/20 History Furosemide [Lasix] 40 mg PO DAILY #0 12/17/19 03/23/20 Rx Metoprolol Tartrate [Lopressor] 50 mg PO BID #60 tab 12/17/19 03/23/20 Rx Pregabalin [Lyrica] 75 mg PO BID #60 cap 12/17/19 03/23/20 Rx ceFAZolin [Kefzol] 2 gm IVP Q8HR #126 vial 12/17/19 03/23/20 Rx Colchicine 0.6 mg PO BID 03/23/20 03/23/20 History Furosemide [Lasix] 20 mg PO HS 03/23/20 03/23/20 History Magnesium 250 mg PO DAILY 03/23/20 03/23/20 History Spironolactone [Aldactone] 25 mg PO DAILY 03/23/20 03/23/20 History hydrALAZINE HCL 50 mg PO Q8HR 03/23/20 03/23/20 History oxyCODONE-APAP 10-325MG [Percocet 1 tab PO QID PRN 03/23/20 03/23/20 History 10-325 mg] predniSONE 10 mg PO DAILY 03/23/20 03/23/20 History Insulin Glargine [Lantus] 30 unit SQ HS 03/25/20 03/25/20 History Allergies Allergy/AdvReac Type Severity Reaction Status Date / Time acetaminophen [From Tylenol] AdvReac kidney/liver Verified 03/23/20 14:43 issues prednisone AdvReac Extreme Verified 03/23/20 14:43 aggression with high doses Physical Examination - Vital Signs Vital Signs: Vital Signs Temp Pulse Pulse Resp BP Pulse Ox 03/27/20 08:00 97.4 F L 98 18 146/68 96 03/27/20 07:47 78 03/27/20 07:36 78 03/27/20 07:35 78 03/27/20 07:25 78 97 03/27/20 04:30 22 94 L 03/27/20 04:00 97.4 F L 74 30 H 108/73 92 L 03/27/20 02:00 64 18 03/27/20 00:11 88 03/27/20 00:00 18 03/26/20 23:59 97.8 F 64 18 152/65 98 03/26/20 23:56 84 03/26/20 21:00 98.4 F 03/26/20 20:00 97.8 F 81 18 124/61 97 03/26/20 19:54 80 03/26/20 19:47 80 03/26/20 19:46 80 03/26/20 19:34 78 03/26/20 15:55 98.3 F 78 18 127/62 97 03/26/20 12:40 98.7 F 03/26/20 11:55 124 H 40 H 03/26/20 11:44 133 H 35 H 03/26/20 11:00 98.7 F 104 H 26 H 163/72 90 L Intake and Output 03/26/20 03/27/20 03/27/20 22:59 06:59 14:59 Intake Total 236 150 780 Output Total 300 1000 550 Balance -64 -850 230 Intake: Oral 236 150 780 Output: Urine 300 1000 550 Uretheral (Granados) 1000 Post Void Residual 0 Other: Voiding Method Urinal Urinal Urinal # Voids 0 # Bowel Movements 1 Weight 106 kg GENERAL: The patient is lying in bed and is not in acute distress. Patient was sitting at bedside of chair. CHEST: The heart rate is regular rate rhythm. No murmurs to auscultation. LUNG: Clear to auscultation bilaterally no wheezing noted throughout. Not labored breathing. ABDOMEN/GI: Bowel sounds present in all 4 quadrants. No tenderness to palpation throughout. NEUROLOGICAL: Higher mental function: The patient is awake, alert, oriented to self, place and time. Patient is following commands. No aphasia and no neglect. Cranial nerves: The pupils are round, equal and reactive to light and accommodation. Visual kimball are full to confrontation throughout. Extraocular movement is intact no nystagmus is noted. Facial sensation is normal to touch throughout. The facial strength is normal throughout. Hearing is normal bi laterally to hand rub. Tongue is midline and moved [id number] without any difficulty. No dysarthria is noted. Shoulder shrug is normal bilaterally. Motor: Gait is deferred. The strength is 5 over 5 throughout. Normal tone and bulk. Cerebellum: Normal finger to nose bilaterally. Sensation: Sensation is normal to touch throughout. Reflexes (right/left): 2+ throughout. Plantars are downgoing bilaterally. Results - Laboratory Findings CBC and BMP: 03/27/20 06:40 03/27/20 16:46 Abnormal Lab Findings: Abnormal Labs 03/23/20 03/23/20 03/23/20 11:59 11:59 11:59 WBC 10.7 H RBC 4.04 L Hgb 11.5 L Hct 37.0 L MCHC RDW 15.6 H Plt Count 146 L Neutrophils # 9.6 H Lymphocytes # 0.4 L D-Dimer ABG pH ABG pCO2 ABG pO2 ABG HCO3 ABG Total CO2 ABG O2 Saturation Sodium Potassium BUN 43 H Creatinine Est GFR (CKD-EPI)AfAm Est GFR (CKD-EPI)NonAf BUN/Creatinine Ratio Glucose 137 H POC Glucose (mg/dL) Plasma Lactic Acid Teo 3.0 H* Calcium Magnesium 1.2 L AST 68 H Alkaline Phosphatase 154 H Lactate Dehydrogenase 840 H C-Reactive Protein 42.4 H Procalcitonin 03/23/20 03/23/20 03/24/20 11:59 13:40 06:50 WBC RBC 3.37 L Hgb 9.9 L D Hct 31.2 L MCHC RDW 15.7 H Plt Count 130 L Neutrophils # Lymphocytes # 0.5 L D-Dimer 1.74 H ABG pH ABG pCO2 ABG pO2 ABG HCO3 ABG Total CO2 ABG O2 Saturation Sodium Potassium BUN Creatinine Est GFR (CKD-EPI)AfAm Est GFR (CKD-EPI)NonAf BUN/Creatinine Ratio Glucose POC Glucose (mg/dL) Plasma Lactic Acid Teo Calcium Magnesium AST Alkaline Phosphatase Lactate Dehydrogenase C-Reactive Protein Procalcitonin 1.55 H 03/24/20 03/24/20 03/24/20 06:50 09:04 14:52 WBC RBC Hgb Hct MCHC RDW Plt Count Neutrophils # Lymphocytes # D-Dimer ABG pH ABG pCO2 ABG pO2 ABG HCO3 ABG Total CO2 ABG O2 Saturation Sodium Potassium BUN 49.0 H Creatinine Est GFR (CKD-EPI)AfAm 53.5 L Est GFR (CKD-EPI)NonAf 46.2 L BUN/Creatinine Ratio 32.67 H Glucose POC Glucose (mg/dL) 164 H 188 H Plasma Lactic Acid Teo Calcium 8.0 L Magnesium AST Alkaline Phosphatase Lactate Dehydrogenase C-Reactive Protein Procalcitonin 03/24/20 03/24/20 03/24/20 16:08 16:13 18:01 WBC RBC Hgb Hct MCHC RDW Plt Count Neutrophils # Lymphocytes # D-Dimer ABG pH 7.28 L 7.30 L ABG pCO2 61 H 60 H ABG pO2 ABG HCO3 29 H 29 H ABG Total CO2 31 H 31 H ABG O2 Saturation 97.5 H 98.5 H Sodium Potassium BUN Creatinine Est GFR (CKD-EPI)AfAm Est GFR (CKD-EPI)NonAf BUN/Creatinine Ratio Glucose POC Glucose (mg/dL) 193 H Plasma Lactic Acid Teo Calcium Magnesium AST Alkaline Phosphatase Lactate Dehydrogenase C-Reactive Protein Procalcitonin 03/24/20 03/25/20 03/25/20 20:22 06:17 06:51 WBC RBC 3.37 L Hgb 9.5 L Hct 31.2 L MCHC 30.5 L RDW 15.8 H Plt Count 124 L Neutrophils # Lymphocytes # 0.7 L D-Dimer ABG pH ABG pCO2 ABG pO2 ABG HCO3 ABG Total CO2 ABG O2 Saturation Sodium Potassium BUN Creatinine Est GFR (CKD-EPI)AfAm Est GFR (CKD-EPI)NonAf BUN/Creatinine Ratio Glucose POC Glucose (mg/dL) 152 H 116 H Plasma Lactic Acid Teo Calcium Magnesium AST Alkaline Phosphatase Lactate Dehydrogenase C-Reactive Protein Procalcitonin 03/25/20 03/25/20 03/25/20 06:51 11:45 16:49 WBC RBC Hgb Hct MCHC RDW Plt Count Neutrophils # Lymphocytes # D-Dimer ABG pH ABG pCO2 ABG pO2 ABG HCO3 ABG Total CO2 ABG O2 Saturation Sodium 136 L Potassium BUN 55 H Creatinine 1.51 H Est GFR (CKD-EPI)AfAm Est GFR (CKD-EPI)NonAf BUN/Creatinine Ratio Glucose 112 H POC Glucose (mg/dL) 232 H 170 H Plasma Lactic Acid Teo Calcium 8.1 L Magnesium AST Alkaline Phosphatase Lactate Dehydrogenase C-Reactive Protein Procalcitonin 03/25/20 03/26/20 03/26/20 20:16 05:58 05:58 WBC RBC 3.73 L Hgb 10.4 L Hct 34.7 L MCHC 30.0 L RDW 15.7 H Plt Count 135 L Neutrophils # Lymphocytes # 0.6 L D-Dimer ABG pH ABG pCO2 ABG pO2 ABG HCO3 ABG Total CO2 ABG O2 Saturation Sodium 135 L Potassium BUN 60 H Creatinine 1.73 H Est GFR (CKD-EPI)AfAm Est GFR (CKD-EPI)NonAf BUN/Creatinine Ratio Glucose POC Glucose (mg/dL) 171 H Plasma Lactic Acid Teo Calcium Magnesium AST Alkaline Phosphatase Lactate Dehydrogenase C-Reactive Protein Procalcitonin 03/26/20 03/26/20 03/26/20 11:13 11:19 20:36 WBC RBC Hgb Hct MCHC RDW Plt Count Neutrophils # Lymphocytes # D-Dimer ABG pH ABG pCO2 ABG pO2 57 L* ABG HCO3 ABG Total CO2 26 H ABG O2 Saturation 90.2 L Sodium Potassium BUN Creatinine Est GFR (CKD-EPI)AfAm Est GFR (CKD-EPI)NonAf BUN/Creatinine Ratio Glucose POC Glucose (mg/dL) 107 H 154 H Plasma Lactic Acid Teo Calcium Magnesium AST Alkaline Phosphatase Lactate Dehydrogenase C-Reactive Protein Procalcitonin 03/27/20 03/27/20 03/27/20 06:21 06:40 06:40 WBC RBC 3.47 L Hgb 9.9 L Hct 31.8 L MCHC RDW 15.8 H Plt Count Neutrophils # Lymphocytes # 0.5 L D-Dimer ABG pH ABG pCO2 ABG pO2 ABG HCO3 ABG Total CO2 ABG O2 Saturation Sodium 136 L Potassium 5.5 H BUN 68 H Creatinine 1.90 H Est GFR (CKD-EPI)AfAm Est GFR (CKD-EPI)NonAf BUN/Creatinine Ratio Glucose 103 H POC Glucose (mg/dL) 108 H Plasma Lactic Acid Teo Calcium Magnesium AST Alkaline Phosphatase Lactate Dehydrogenase C-Reactive Protein Procalcitonin Assessment and Plan Assessment: Altered mental status likely due to underlying infection (pneumonia per ID) and component of toxic-metabolic encephalopathy (EMEKA) and medication (opiates)---improved 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 Possible underlying diabetic neuropathy. Acute kidney insufficiency Diabetes mellitus COPD History of Chronic hypoxic respiratory failure History of Coronary artery disease status post stent Diastolic congestive heart failure Hypertension Hyperlipidemia Plan: I ordered a routine EEG. I'll allow start the patient on an antiepileptic drug unless there is applicable discharges or seizure seen. Infection disease is on board and they stated that the patient likely has pneumonia. They also mentioned that the patient the history of discitis and was on all patient on outpatient Cefazolin and vancomycin but the cultures are negative for resistant pathogen. As a result vancomycin the will be discontinued. And the as a result the patient is being covered with cefepime and Levaquin. Please avoid opiate/narcotics or any sedative. I spoke with Dr. Yap (I.D.) regarding the lumbar puncture if unknown etiology of fever, but the he doesn't feel it's needed since the patient's mentation is improved and and he denies of any headaches or vomiting. An element agreement the patient's mentation is normal currently. He will order MRI of the lumbar. The patient was notified regarding his mixed connective tissue disease and discitis/osteomyelitis that he needs to follow up at [facility] with tire specialist/neurologist as outpatient within 1-2 weeks. The plan was discussed with the patient in the patient's nurse. Thank you for the consultation. Niraj Neal M.D. Neuro-hospitalist Time with Patient: Greater than 30
--- NOTE | 2020-03-27 14:50 | P.PN ---
Subjective This is a pleasant 70-year-old male past medical history significant for coronary artery disease status post PCI of the RCA in 2009, chronic diastolic heart failure, chronic kidney disease, hypertension, dyslipidemia, COPD, obstructive sleep apnea, former nicotine dependence and DVT maintained on long-term anticoagulation. He follows in the office with Dr. Frazier. He is seen and examined sitting up in bed undergoing a nebulizer updraft treatment. He states he continues to have worsening shortness of breath. He denies chest pain, dizziness or palpitations. Blood pressure 146/68 heart rate 88 afebrile maintaining oxygen saturation on nasal cannula. Laboratory data reviewed, WBC 4.3, hemoglobin 9.9, platelets 154, sodium 136, potassium 5.5, creatinine 1.9. GENERAL: Well-appearing, well-nourished and in no acute distress. NECK: Supple without JVD or thyromegaly. LUNGS: Expiratory wheezes bilaterally, no rhonchi or rales. Respiration equal and unlabored. HEART: Regular rate and rhythm without murmurs, rubs or gallops. S1 and S2 heard. EXTREMITIES: Normal range of motion, no edema. No clubbing or cyanosis. Peripheral pulses intact. ASSESSMENT Pneumonia Acute on chronic diastolic heart failure Acute kidney injury Hypertension Coronary artery disease status post PCI Dyslipidemia COPD DVT maintained on long-term anticoagulation PLAN Diuretics currently on hold secondary to acute kidney injury per nephrology. Follow renal function and electrolytes in the morning. Further recommendations to follow. Nurse Practitioner note has been reviewed, I agree with a documented findings and plan of care. Patient was seen and examined. Objective - Vital Signs Vital signs: Vital Signs Temp 97.4 F L 03/27/20 08:00 Pulse 80 03/27/20 12:23 Resp 18 03/27/20 08:00 BP 146/68 03/27/20 08:00 Pulse Ox 96 03/27/20 08:00 Intake & Output 03/26/20 03/27/20 03/27/20 18:59 06:59 18:59 Intake Total 476 150 780 Output Total 300 1000 550 Balance 176 -850 230 Weight 106 kg Intake: Oral 476 150 780 Output: Urine 300 1000 550 Uretheral (Finch) 1000 Post Void Residual 0 Other: Voiding Method Urinal Urinal Urinal # Voids 0 # Bowel Movements 1 - Labs CBC & Chem 7: 03/27/20 06:40 03/27/20 06:40 Labs: Abnormal Lab Results - Last 24 Hours (Table) 03/26/20 03/27/20 03/27/20 Range/Units 20:36 06:21 06:40 RBC 3.47 L (4.30-5.90) m/uL Hgb 9.9 L (13.0-17.5) gm/dL Hct 31.8 L (39.0-53.0) % RDW 15.8 H (11.5-15.5) % Lymphocytes # 0.5 L (1.0-4.8) k/uL Sodium (137-145) mmol/L Potassium (3.5-5.1) mmol/L BUN (9-20) mg/dL Creatinine (0.66-1.25) mg/dL Glucose (74-99) mg/dL POC Glucose (mg/dL) 154 H 108 H (75-99) mg/dL 03/27/20 03/27/20 Range/Units 06:40 11:43 RBC (4.30-5.90) m/uL Hgb (13.0-17.5) gm/dL Hct (39.0-53.0) % RDW (11.5-15.5) % Lymphocytes # (1.0-4.8) k/uL Sodium 136 L (137-145) mmol/L Potassium 5.5 H (3.5-5.1) mmol/L BUN 68 H (9-20) mg/dL Creatinine 1.90 H (0.66-1.25) mg/dL Glucose 103 H (74-99) mg/dL POC Glucose (mg/dL) 341 H (75-99) mg/dL Microbiology - Last 24 Hours (Table) 03/23/20 11:59 Blood Culture - Preliminary Blood No Growth after 96 hours 03/23/20 11:59 Blood Culture - Preliminary Blood No Growth after 96 hours
--- NOTE | 2020-03-27 15:31 | P.PN ---
Subjective Progress Note Date: 03/27/20 Principal diagnosis: Fever, shortness of breath, back pain This is a very pleasant 70-year-old gentleman who follows with Dr. Keene is his primary care provider. He has a history of hypertension, hyperlipidemia, GERD, diastolic congestive heart failure, coronary artery disease with previous stent placement, history of right upper extremity DVT, on Eliquis, degenerative joint disease, obesity, obstructive sleep apnea maintained on CPAP in the outpatient setting. He also has a history of chronic tobacco dependence and chronic obstructive pulmonary disease and follows with Dr. Chang in our office for the same. Maintained on DuoNeb inhalations, Breo. On prednisone 10 mg daily. He does wear his CPAP nightly. He has oxygen at 2 L at night as well. He presented to the emergency room yesterday with complaints of fever. Presenting temperature 102.9. He is having some occasional shortness of breath and nonproductive cough. Somewhat nauseated with an episode of emesis times one. No abdominal discomfort. No diarrhea. He does have chronic low back pain including discitis and had been on IV antibiotics for the same. Chest x-ray reveals mild right lower lobe infiltrate which is nonspecific and seen on previous x-rays. CT angiogram revealed no evidence of monilia emboli. Scattered bilateral areas of subsegmental atelectasis. The patient is seen today in consultation on the regular medical floor. He apparently took a fall in the bathroom earlier this morning. Computed tomography scan of the brain revealed no acute intracranial hemorrhage or midline shift. He denied any loss of consciousness. He is awake and alert in no acute distress. He is maint aining good O2 saturations in the 90s on room air. He's currently afebrile. White count 7.1. Hemoglobin 9.9. Platelet count 1:30. Glipizide 0.5. D-dimer 1.74. Sodium 140. Potassium 4.7. Creatinine 1.5. ProBNP 1220. Pro-calcitonin 1.55. Hollingsworth virus not detected. He's been initiated on Symbicort, albuterol, prednisone, antibiotics in the form of cefepime, vancomycin. ID is on the case. The patient is seen today 03/26/2020 in follow-up on the selective care unit. He is more restless and confused this morning. He had blood glasses done last evening that revealed a pO2 of 101, pCO2 of 60 and a pH is 7.30. That was on 30% FiO2. He was subsequently placed on BiPAP 14/6 and 21% FiO2 and this morning's blood gases revealed a pO2 of 57, pCO2 41, pH 7.39. His FiO2 was increased to 28%. He is tachypneic and tachycardic this morning. Temperature 98.7 axillary. White count 7.4. Hemoglobin 10.4. White count 135. He is on bronchodilators, cefepime. On 03/27/2020 patient seen in follow-up on selective care unit. He is currently off BiPAP, he is on 3 L of oxygen, his pulse ox is 96%, he seemed to breathing comfortably, he does complain of lower back pain, but seems to be in no acute distress, is afebrile, hemodynamically patient is stable. No altered Mentation. He did wear BiPAP support last night with pressures of 14/60 and FiO2 of 28%. He has a mild lower extremity edema, and some mild crackles at bilateral bases, he is afebrile. 0.9 normal saline infusing at 50 ML per hour. And patient is awake and alert, oriented 3. Renal profile with slightly worsened today, nephrology is following, his sodium level is 136, potassium is 5.5, BUN of 16 and creatinine is 1.9. He tested negative for COVID 19 twice. His urinalysis did not show evidence of infection. His microbiology data was negative. He is currently on cefepime and vancomycin and ID service is following. Objective - Vital Signs Vital signs: Vital Signs Temp 97.4 F L 03/27/20 08:00 Pulse 80 03/27/20 12:23 Resp 18 03/27/20 08:00 BP 146/68 03/27/20 08:00 Pulse Ox 96 03/27/20 08:00 Intake & Output 03/26/20 03/27/20 03/27/20 18:59 06:59 18:59 Intake Total 476 150 900 Output Total 300 1000 550 Balance 176 -850 350 Weight 106 kg Intake: Oral 476 150 900 Output: Urine 300 1000 550 Uretheral (Finch) 1000 Post Void Residual 0 Other: Voiding Method Urinal Urinal Urinal # Voids 0 1 # Bowel Movements 1 - Exam GENERAL EXAM: Alert, very pleasant, 70-year-old white male, on 2 L of oxygen set up in the recliner, awake alert oriented 3 comfortable in no apparent distress. HEAD: Normocephalic/atraumatic. EYES: Normal reaction of pupils, equal size. Conjunctiva pink, sclera white. NOSE: Clear with pink turbinates. THROAT: No erythema or exudates. NECK: No masses, no JVD, no thyroid enlargement, no adenopathy. CHEST: No chest wall deformity. Symmetrical expansion. LUNGS: Equal air entry with no crackles, wheeze, rhonchi or dullness. CVS: Regular rate and rhythm, normal S1 and S2, no gallops, no murmurs, no rubs ABDOMEN: Soft, nontender. No hepatosplenomegaly, normal bowel sounds, no guarding or rigidity. EXTREMITIES: No clubbing, minimal pretibial edema, no cyanosis, 2+ pulses and upper and lower extremities. MUSCULOSKELETAL: Muscle strength and tone normal. SPINE: No scoliosis or deformity SKIN: No rashes CENTRAL NERVOUS SYSTEM: Alert and oriented -3. No focal deficits, tone is normal in all 4 extremities. PSYCHIATRIC: Alert and oriented -3. Appropriate affect. Intact judgment and insight. - Labs CBC & Chem 7: 03/27/20 06:40 03/27/20 06:40 Labs: Abnormal Lab Results - Last 24 Hours (Table) 03/26/20 03/27/20 03/27/20 Range/Units 20:36 06:21 06:40 RBC 3.47 L (4.30-5.90) m/uL Hgb 9.9 L (13.0-17.5) gm/dL Hct 31.8 L (39.0-53.0) % RDW 15.8 H (11.5-15.5) % Lymphocytes # 0.5 L (1.0-4.8) k/uL Sodium (137-145) mmol/L Potassium (3.5-5.1) mmol/L BUN (9-20) mg/dL Creatinine (0.66-1.25) mg/dL Glucose (74-99) mg/dL POC Glucose (mg/dL) 154 H 108 H (75-99) mg/dL 03/27/20 03/27/20 Range/Units 06:40 11:43 RBC (4.30-5.90) m/uL Hgb (13.0-17.5) gm/dL Hct (39.0-53.0) % RDW (11.5-15.5) % Lymphocytes # (1.0-4.8) k/uL Sodium 136 L (137-145) mmol/L Potassium 5.5 H (3.5-5.1) mmol/L BUN 68 H (9-20) mg/dL Creatinine 1.90 H (0.66-1.25) mg/dL Glucose 103 H (74-99) mg/dL POC Glucose (mg/dL) 341 H (75-99) mg/dL Microbiology - Last 24 Hours (Table) 03/23/20 11:59 Blood Culture - Preliminary Blood No Growth after 96 hours 03/23/20 11:59 Blood Culture - Preliminary Blood No Growth after 96 hours Assessment and Plan Plan: Assessment: 1 Febrile illness of unclear etiology. Presenting temperature 102.9. Currently afebrile. Blood cultures revealing no growth to date. Pro Calcitonin 1.55. Early on cefepime. Possibility of pneumonia is not entirely ruled out 2 Spine discitis with Streptococcus bacteremia currently on IV cefazolin in the outpatient setting 3 Chronic changes of the right lower lobe with atelectasis and possible early pneumonia. Today's chest x-ray 03/26/2020 reveals a new patchy left basilar infiltrate/atelectasis 4 Chronic obstructive pulmonary disease, currently inactive in stable 5 Chronic hypoxemic respiratory failure secondary to above, on home oxygen 6 Obstructive sleep apnea utilizing CPAP in the outpatient setting 7 Morbid obesity 8 Prior history of chronic tobacco dependence 9 Degenerative disc disease 10 Coronary artery disease with previous stent placement 11 History of diastolic congestive heart failure 12 Hypertension 13 Hyperlipidemia Plan: Continue antibiotics per ID service recommendations, breathing easier, patient continue using BiPAP support at night and is negative, weaning FiO2, encourage deep breathing and coughing, continue bronchodilators, and steroids. We'll continue to follow I performed a history & physical examination of the patient and discussed their management with my nurse practitioner, Skylar Mckoy. I reviewed the nurse practitioner's note and agree with the documented findings and plan of care. Lung sounds are positive for diminished breath sounds.. The findings and the i mpression was discussed with the patient. I attest to the documentation by the nurse practitioner. Time with Patient: Less than 30
--- NOTE | 2020-03-27 16:55 | PN ---
PROGRESS NOTE DATE OF SERVICE: 03/27/2020 This 70-year-old gentleman, admitted with shortness of breath and cough and pneumonia also had multiple other medical problems including CHF and acute on chronic renal failure also. The patient has elevated BNP. Patient also had possibly MCTD exacerbation also. The patient was started on IV steroids which is improving the mentation and other symptoms significantly. Patient closely monitored at this time. Patient is being previously followed by [facility] also. The patient is on broad-spectrum IV antibiotics, cefepime initiated by Dr. Yap and cultures are negative so far. PAST MEDICAL HISTORY: Reviewed. REVIEW OF SYSTEMS: Could not be taken, the patient is still confused. CURRENT MEDICATIONS: 1. Tylenol. 2. DuoNeb. 3. Eliquis. 4. Aspirin. 5. Lipitor. 6. Pulmicort. 7. Cefepime. 8. Folic acid. 9. Apresoline. 10.NovoLog. 11.Nasarel. 12.Magnesium oxide. 13.Lopressor. PHYSICAL EXAMINATION: Patient is alert, oriented, x2. Pulse is 97, blood pressure 140/68, respiration 18, temperature 97.7, pulse ox 97% on 3 L. HEENT: Conjunctivae normal. Neck: No JVD. CARDIOVASCULAR: S1, S2 muffled. Respirations: Breath sounds diminished in the bases. Bilateral scattered rhonchi and crackles. ABDOMEN: Soft, nontender. LEGS are no edema. NERVOUS SYSTEM: Diffusely weak. LAB: White count 4.3, hemoglobin 9.9, sodium 130, potassium 5.5. ASSESSMENT: 1. Shortness of breath and cough for possible bilateral pneumonia with acute hypoxic respiratory failure, right more than the left with hypoxic hypercarbic respiratory failure. 2. Congestive heart failure acute exacerbation with acute on chronic diastolic dysfunction. 3. 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. 4. Acute on chronic renal failure with acute tubular necrosis. 5. Hyperkalemia secondary to renal failure. 6. Elevated BNP. 7. Elevated plasma lactic acid, possible sepsis present on admission. 8. Change in mental status acute metabolic encephalopathy multifactorial. 9. Hypomagnesemia. 10.Elevated AST. 11.Increased LDH and CRP. 12.Increased WBC. 13.Anemia, normocytic. 14.Thrombocytopenia. 15.History of recent discitis with alpha hemolytic streptococci in the blood culture. 16.On PICC line on the left arm with IV antibiotics. 17.History of coronary artery disease. 18.History of congestive heart failure, ejection fraction unknown. 19.History of chronic obstructive pulmonary disease. 20.History of deep vein thrombosis. 21.Gastroesophageal reflux disease. 22.Hypertension. 23.Hyperlipidemia. 24.History of degenerative joint disease. 25.History of prostate disorder. 26.History of sleep apnea. 27.History of recent sepsis secondary to discitis. 28.Urinary retention on Finch catheter. 29.History of deep vein thrombosis of the right arm. 30.History of lower leg cellulitis. 31.Obstructive sleep apnea. 32.Nonsustained ventricular tachycardia history. 33.History of transient ischemic attack. 34.History of benign prostatic hypertrophy. 35.History of colonic polyps. 36.History of back surgery/degenerative joint disease. 37.History of coronary artery disease/stent. 38.History of nicotine dependence. 39.Obesity with body mass index of 37.1. RECOMMENDATIONS AND DISCUSSION: Recommend to continue current management and symptomatic treatment in this 70-year-old gentleman. I would recommend to continue current medication. I would continue with IV steroids. Continue the rest of medications. Renal function slightly worsening. Otherwise, Kayexalate 15 g today. Closely follow with multiple consultants. I had a detailed discussion with Belinda the patient's over the phone and further recommendations to follow. A copy of this dictation being forwarded to Dr. Keene, who is the primary physician. AKIRA / ROSALIE: [id number] /
[2020-03-27 17:07] LABS: Glucose,Whole Blood 307 mg/dL (75-99)
--- NOTE | 2020-03-27 19:38 | EEG ---
ELECTROENCEPHALOGRAM REPORT DATE OF SERVICE: 03/27/2020. CLINICAL HISTORY: This is a 70-year-old gentleman who has altered mental status and episode of unresponsiveness. This video EEG is obtained to evaluate for seizure and epileptiform activity. RELEVANT MEDICATION: The patient is not on any antiepileptic drugs. EEG TYPE: This is a routine EEG for a suspected Covid 19 patient using ACNS guidelines is performed using the 10/20 electrode placement system. DESCRIPTION: Wakefulness is only obtained. During wakefulness, there is a posterior dominant rhythm of low to moderate voltage, reactive, well modulated, of 6.5-7.5 hertz activity. There is no physiological stage 2 sleep seen. INTERICTAL AND ICTAL: None. ACTIVATION PROCEDURE: Photic stimulation and hyperventilation are not performed. CLINICAL INTERPRETATION: This is an abnormal routine EEG. The background slowing is suggestive of mild to moderate encephalopathy of unspecified etiology. There are no focal slowing, epileptiform discharges or seizure during the study. Clinical correlation is recommended. AKIRA / ROSALIE: [id number] / CLEMENTINE
[2020-03-27 20:03] LABS: Glucose,Whole Blood 258 mg/dL (75-99)
[2020-03-27] MEDS ORDERED: methylPREDNISolone SOD SUCCI 40 MG/ML 1 ML VIAL IV SCH (21:00)
[2020-03-27] MEDS: ATORVASTATIN 80 MG TAB PO SCH (21:10)
[2020-03-27] MEDS: PRAMIPEXOLE 1 MG TAB PO SCH (21:10)
[2020-03-27] MEDS: INSULIN DETEMIR (LEVEMIR) 100 UNIT/ML SYR SQ SCH (21:10)
[2020-03-27] MEDS ORDERED: PRAMIPEXOLE 0.5 MG TAB PO ONE (23:00)
--- NOTE | 2020-03-27 23:41 | PN ---
PROGRESS NOTE DATE OF SERVICE: 03/27/2020 REASON FOR FOLLOWUP: Pneumonia and discitis. INTERVAL HISTORY: The patient is currently afebrile. Patient is breathing more comfortably. Denies having any chest pain or shortness of breath. Minimal cough. No nausea, no vomiting. No abdominal pain. No diarrhea. No worsening pain in the back area. PHYSICAL EXAMINATION: Blood pressure 147/68 with a pulse of 85, temperature 98.2. He is 96% on 3 L nasal cannula. General description is an elderly male up in the chair in no distress. Respiratory system: Unlabored breathing, decreased breath sounds at the bases. No wheeze. HEART: S1, S2. Regular rate and rhythm. ABDOMEN: Soft, no tenderness. LAB: Hemoglobin 11.1, white count 4.3, creatinine was up to 1.90. Culture has been negative so far. DIAGNOSTIC IMPRESSION AND PLAN: Patient admitted to the hospital with fever and mental status changes concerning for possible pneumonia in this patient possibly with history of discitis. Currently covered with cefepime. Culture has been negative so far. Once his kidney function improves or get clearance from Nephrology, will obtain his MRI of the lumbosacral spine for followup to show overall improvement or resolution of his discitis. Continue supportive care. MMODL / IJN: [id number] /
[2020-03-28 05:57] LABS: Glucose,Whole Blood 185 mg/dL (75-99)
[2020-03-28] MEDS: methylPREDNISolone SOD SUCCI 125 MG/2 ML VIAL IV SCH ×4 (06:23→23:29)
[2020-03-28] MEDS: INSULIN ASPART (NovoLOG) 100 UNIT/ML VIAL SQ SCH ×4 (06:23→21:06)
[2020-03-28] MEDS: PANTOPRAZOLE 40 MG TABLET PO SCH (06:23)
[2020-03-28 08:32] LABS: Basophils % (A) 0 %; Eosinophils # (A) 0.1 k/uL (0-0.7); Eosinophils % (A) 1 %; HCT 30.4 % (39.0-53.0); HGB 9.7 gm/dL (13.0-17.5); Hypochromasia Slight; Lymphocytes # (A) 0.5 k/uL (1.0-4.8); Lymphocytes % (A) 5 %; MCHC 32.1 g/dL (31.0-37.0); MCV 90.5 fL (80.0-100.0); Mean Platelet Volume 10.2; Monocytes # (A) 0.3 k/uL (0-1.0); Monocytes % (A) 4 %; Neutrophils # (A) 8.4 k/uL (1.3-7.7); Neutrophils % (A) 90 %; Platelet Count 200 k/uL (150-450); RBC 3.35 m/uL (4.30-5.90); RDW 15.5 % (11.5-15.5); WBC 9.3 k/uL (3.8-10.6)
[2020-03-28] MEDS: BUDESONIDE 1 MG/2 ML NEBU INHALATION SCH ×2 (08:40→19:53)
[2020-03-28] MEDS: FORMOTEROL FUMARATE 20 MCG/2 ML NEBU INHALATION SCH ×2 (08:40→19:53)
[2020-03-28] MEDS: IPRATROPIUM-ALBUTEROL 3 ML NEB INHALATION SCH ×4 (08:40→19:53)
[2020-03-28 08:50] LABS: Magnesium 2.2 mg/dL (1.6-2.3); Potassium 4.1 mmol/L (3.5-5.1)
[2020-03-28] MEDS: ASPIRIN 81 MG PO SCH (09:15)
[2020-03-28] MEDS: APIXABAN 5 MG TAB PO SCH ×2 (09:15→21:05)
[2020-03-28] MEDS: TAMSULOSIN 0.4 MG CAP.ER.24H PO SCH (09:16)
[2020-03-28] MEDS: FOLIC ACID 1 MG TAB PO SCH (09:16)
[2020-03-28] MEDS: METOPROLOL TARTRATE 50 MG TAB PO SCH ×2 (09:16→21:05)
[2020-03-28] MEDS: QUEtiapine 25 MG TAB PO SCH ×2 (09:16→21:06)
[2020-03-28] MEDS: MAGNESIUM OXIDE 400 MG TAB PO SCH (09:16)
[2020-03-28] MEDS: CEFEPIME 2 GM in SODIUM CHLORIDE 0.9% 100 ML IVPB SCH ×2 (09:16→21:06)
[2020-03-28] MEDS: hydrALAZINE HCL 50 MG TAB PO SCH ×3 (09:16→23:29)
[2020-03-28] MEDS: COLCHICINE 0.6 MG EACH PO SCH (09:18)
--- NOTE | 2020-03-28 09:50 | CDI ---
Documentation Clarification Form Date: 03/28/2020 11:22:00 AM From: Génesis Durham CCS, CCDS Admit Date: 03/23/2020 01:35:00 PM Patient Name: Rogers Morley Visit Number: [id number] Discharge Date: ATTENTION: The Clinical Documentation Specialists (CDI) and [facility] Coding Staff appreciate your assistance in clarifying documentation. Please respond to the clarification below the line at the bottom and electronically sign. The CDI & [facility] Coding staff will review the response and follow-up if needed. Please note: Queries are made part of the Legal Health Record. If you have any questions, please contact the author of this message via ITS. Dr. Jon Cota: Chronic kidney disease is documented in the 03/25 & 03/26 Cardiology Progress Notes without further specificity. Nephrology was consulted on 03/27: "Creatinine was 1.12 on admission and is up to 1.9 today. Creatinine as of December 2019 was 0.7-0.8. He does have long-standing history of diabetes mellitus." History/Risk Factors: CAD status post CABG, Chronic Diastolic Heart Failure, CKD nos, Hypertension, Hyperlipidemia, Type DM with Diabetic peripheral angiopathy, CALLI, Chronic pain syndrome, former smoker. Clinical Indicators: Presented to the ED on 03/23 with SOB, fever & vomiting, diagnosed with Sepsis, Pneumonia, COPD exacerbation & Acute on Chronic Exacerbation of Diastolic Heart Failure. Recently admitted for Discitis and discharged home with PICC line on IV antibiotics. 03/23 BUN/Cr: 43^/1.12; 03/24: 49.0^/1.5; 03/25: 55^, 1.51^; 03/26: 60^, 1.73^; 03/27: 68^/1.90^ Current GFR: 03/23: 66; 03/24: 36.2*; 03/25: 46; 03/26: 39; 03/27: 35 Treatment on admission: IV Zofran, INH Ventolin, IV MagSulfate, IV Rocephin, IV fluid 1,000 mls @ 100 mls/hr q10H, IV Cefazolin, po Eliquis, IV Lasix, INH Symbicort, IV Cefepime and IV Vancomycin. In order to capture the severity of condition, please clarify the stage of the CKD, if known: CKD Stage 2 (GFR 60-89) CKD Stage 3a (GFR 45-59) CKD Stage 3b (GFR 30-44) Other, please specify Unable to determine [Template Last reviewed: November 2019] no ckd MTDD
--- NOTE | 2020-03-28 10:38 | P.PN ---
Subjective This is a pleasant 70-year-old male past medical history significant for coronary artery disease status post PCI of the RCA in 2009, chronic diastolic heart failure, chronic kidney disease, hypertension, dyslipidemia, COPD, obstructive sleep apnea, former nicotine dependence and DVT maintained on long-term anticoagulation. He follows in the office with Dr. Frazier. He is seen and examined sitting up in the recliner undergoing a nebulizer treatment. Overall he states his breathing is greatly improved and the previous 24 hours. He denies symptoms of chest pain, dizziness or palpitations. Telemetry tracings reveal persistent sinus mechanism. Blood pressure 139/66 heart rate 84 afebrile maintaining oxygen saturation on nasal cannula. Laboratory data reviewed, WBC 9.3, hemoglobin 9.7, platelets 200, sodium 138, potassium 4.1, creatinine 1.92, magnesium 2.2. GENERAL: Well-appearing, well-nourished and in no acute distress. NECK: Supple without JVD or thyromegaly. LUNGS: Clear to auscultation bilaterally, no wheezes, rhonchi or rales. Respiration equal and unlabored. Diminished bilaterally. HEART: Regular rate and rhythm without murmurs, rubs or gallops. S1 and S2 heard. EXTREMITIES: Normal range of motion, trace bilateral lower extremity edema. No clubbing or cyanosis. Peripheral pulses intact. ASSESSMENT Pneumonia Acute on chronic diastolic heart failure, improved. Acute kidney injury Hypertension Coronary artery disease status post PCI Dyslipidemia COPD DVT maintained on long-term anticoagulation PLAN Diuretics remain on hold secondary to acute kidney injury per nephrology. Follow renal function and electrolytes in the morning. Nurse Practitioner note has been reviewed, I agree with a documented findings and plan of care. Patient was seen and examined. Objective - Vital Signs Vital signs: Vital Signs Temp 97.9 F 03/28/20 04:00 Pulse 84 03/28/20 09:03 Resp 22 03/28/20 04:00 BP 139/66 03/28/20 04:00 Pulse Ox 96 03/28/20 04:00 Intake & Output 03/27/20 03/28/20 03/28/20 18:59 06:59 18:59 Intake Total 900 118 780 Output Total 550 Balance 350 118 780 Weight 106 kg Intake: Oral 900 118 780 Output: Urine 550 Other: Voiding Method Urinal Toilet # Voids 1 1 1 # Bowel Movements 1 1 1 - Labs CBC & Chem 7: 03/28/20 07:34 03/28/20 07:34 Labs: Abnormal Lab Results - Last 24 Hours (Table) 03/27/20 03/27/20 03/27/20 Range/Units 11:43 17:03 20:02 RBC (4.30-5.90) m/uL Hgb (13.0-17.5) gm/dL Hct (39.0-53.0) % Neutrophils # (1.3-7.7) k/uL Lymphocytes # (1.0-4.8) k/uL Carbon Dioxide (22-30) mmol/L BUN (9-20) mg/dL Creatinine (0.66-1.25) mg/dL Glucose (74-99) mg/dL POC Glucose (mg/dL) 341 H 307 H 258 H (75-99) mg/dL 03/28/20 03/28/20 03/28/20 Range/Units 05:55 07:34 07:34 RBC 3.35 L (4.30-5.90) m/uL Hgb 9.7 L (13.0-17.5) gm/dL Hct 30.4 L (39.0-53.0) % Neutrophils # 8.4 H (1.3-7.7) k/uL Lymphocytes # 0.5 L (1.0-4.8) k/uL Carbon Dioxide 20 L (22-30) mmol/L BUN 75 H (9-20) mg/dL Creatinine 1.92 H (0.66-1.25) mg/dL Glucose 147 H (74-99) mg/dL POC Glucose (mg/dL) 185 H (75-99) mg/dL Microbiology - Last 24 Hours (Table) 03/23/20 11:59 Blood Culture - Preliminary Blood No Growth after 96 hours 03/23/20 11:59 Blood Culture - Preliminary Blood No Growth after 96 hours
[2020-03-28] MEDS: KETOCONAZOLE 2% SHAMPOO 1 APPLIC/ML TOPICAL SCH (10:41)
[2020-03-28 11:55] LABS: Glucose,Whole Blood 324 mg/dL (75-99)
[2020-03-28] MEDS: MULTIVITAMINS, THERA 1 EACH TAB PO SCH (12:12)
[2020-03-28] MEDS: THIAMINE 100 MG TAB PO SCH (12:12)
[2020-03-28] MEDS ORDERED: FUROSEMIDE 10 MG/ML 2 ML VIAL IV ONE (13:08)
--- NOTE | 2020-03-28 13:10 | P.PN ---
Subjective Patient is seen in follow-up for acute kidney injury. Renal function is stable. He is maintained on IV fluids. Blood pressure stable. Good urine output. No chest pain or shortness of breath. Oral intake is good. Vital signs are stable. General: The patient appeared well nourished and normally developed. HEENT: Head exam is unremarkable. Neck is without jugular venous distension. LUNGS: Breath sounds decreased. HEART: Rate and Rhythm are regular. ABDOMEN: Soft, nontender. EXTREMITITES: 1+ edema. Objective - Vital Signs Vital signs: Vital Signs Temp 97.4 F L 03/28/20 12:00 Pulse 84 03/28/20 12:00 Resp 16 03/28/20 12:00 BP 159/72 03/28/20 12:00 Pulse Ox 97 03/28/20 12:00 Intake & Output 03/27/20 03/28/20 03/28/20 18:59 06:59 18:59 Intake Total 900 118 780 Output Total 550 Balance 350 118 780 Weight 106 kg Intake: Oral 900 118 780 Output: Urine 550 Other: Voiding Method Urinal Toilet Toilet # Voids 1 1 1 # Bowel Movements 1 1 1 - Labs CBC & Chem 7: 03/28/20 07:34 03/28/20 07:34 Labs: Abnormal Lab Results - Last 24 Hours (Table) 03/27/20 03/27/20 03/28/20 Range/Units 17:03 20:02 05:55 RBC (4.30-5.90) m/uL Hgb (13.0-17.5) gm/dL Hct (39.0-53.0) % Neutrophils # (1.3-7.7) k/uL Lymphocytes # (1.0-4.8) k/uL Carbon Dioxide (22-30) mmol/L BUN (9-20) mg/dL Creatinine (0.66-1.25) mg/dL Glucose (74-99) mg/dL POC Glucose (mg/dL) 307 H 258 H 185 H (75-99) mg/dL 03/28/20 03/28/20 03/28/20 Range/Units 07:34 07:34 11:48 RBC 3.35 L (4.30-5.90) m/uL Hgb 9.7 L (13.0-17.5) gm/dL Hct 30.4 L (39.0-53.0) % Neutrophils # 8.4 H (1.3-7.7) k/uL Lymphocytes # 0.5 L (1.0-4.8) k/uL Carbon Dioxide 20 L (22-30) mmol/L BUN 75 H (9-20) mg/dL Creatinine 1.92 H (0.66-1.25) mg/dL Glucose 147 H (74-99) mg/dL POC Glucose (mg/dL) 324 H (75-99) mg/dL Microbiology - Last 24 Hours (Table) 03/23/20 11:59 Blood Culture - Preliminary Blood No Growth after 96 hours 03/23/20 11:59 Blood Culture - Preliminary Blood No Growth after 96 hours Assessment and Plan Plan: Assessment: 1. Acute kidney injury secondary to ATN secondary to contrast-induced acute kidney injury and further worsened with the use of nonsteroidals and diuretics. Also component of urinary retention. Baseline creatinine near 1 and is stable at 1.92 today. UA benign. 2. Urinary retention status post catheterization this admission. On Flomax. 3. Lumbar discitis maintained on antibiotics. 4. Mild hyperkalemia secondary to acute kidney injury, Motrin and hyperglycemia. Resolved. 5. Diabetes mellitus. 6. Lower extremity edema. 7. Metabolic acidosis secondary to IV fluids. Plan: Monitor bladder scans closely. To insert Finch catheter if over 300 mL of urine present. Hep-Lock IV fluids. Lasix 20 mg IV once now. Continue to monitor renal function and urine output.
--- NOTE | 2020-03-28 14:16 | P.PN ---
Subjective Progress Note Date: 03/28/20 Patient was seen and was sitting on the chair next to his bed and he stated that he's doing well. Upon seeing me was having his lunch. He denies of any numbness, numbness, visual disturbance. He does not have any further episodes of confusion. Objective - Vital Signs Vital signs: Vital Signs Temp 97.4 F L 03/28/20 08:00 Pulse 84 03/28/20 09:03 Resp 18 03/28/20 08:00 BP 151/70 03/28/20 08:00 Pulse Ox 96 03/28/20 08:00 Intake & Output 03/27/20 03/28/20 03/28/20 18:59 06:59 18:59 Intake Total 900 118 780 Output Total 550 Balance 350 118 780 Weight 106 kg Intake: Oral 900 118 780 Output: Urine 550 Other: Voiding Method Urinal Toilet Toilet # Voids 1 1 1 # Bowel Movements 1 1 1 - Exam GENERAL: The patient is lying in bed and is not in acute distress. Patient was sitting at bedside of chair. NEUROLOGICAL: Higher mental function: The patient is awake, alert, oriented to self, place and time. Patient is following commands. No aphasia and no neglect. Cranial nerves: The pupils are round, equal and reactive to light and accommodation. Visual kimball are full to confrontation throughout. Extraocular movement is intact no nystagmus is noted. Facial sensation is normal to touch throughout. The facial strength is normal throughout. Hearing is normal bilaterally to hand rub. Tongue is midline and moved [id number] without any difficulty. No dysarthria is noted. Shoulder shrug is normal bilaterally. Motor: Gait is deferred. The strength is 5 over 5 throughout. Normal tone and bulk. Cerebellum: Normal finger to nose bilaterally. Sensation: Sensation is normal to touch throughout. Reflexes (right/left): 2+ throughout. Plantars are downgoing bilaterally. - Labs CBC & Chem 7: 03/28/20 07:34 03/28/20 07:34 Labs: Abnormal Lab Results - Last 24 Hours (Table) 03/27/20 03/27/20 03/28/20 Range/Units 17:03 20:02 05:55 RBC (4.30-5.90) m/uL Hgb (13.0-17.5) gm/dL Hct (39.0-53.0) % Neutrophils # (1.3-7.7) k/uL Lymphocytes # (1.0-4.8) k/uL Carbon Dioxide (22-30) mmol/L BUN (9-20) mg/dL Creatinine (0.66-1.25) mg/dL Glucose (74-99) mg/dL POC Glucose (mg/dL) 307 H 258 H 185 H (75-99) mg/dL 03/28/20 03/28/20 03/28/20 Range/Units 07:34 07:34 11:48 RBC 3.35 L (4.30-5.90) m/uL Hgb 9.7 L (13.0-17.5) gm/dL Hct 30.4 L (39.0-53.0) % Neutrophils # 8.4 H (1.3-7.7) k/uL Lymphocytes # 0.5 L (1.0-4.8) k/uL Carbon Dioxide 20 L (22-30) mmol/L BUN 75 H (9-20) mg/dL Creatinine 1.92 H (0.66-1.25) mg/dL Glucose 147 H (74-99) mg/dL POC Glucose (mg/dL) 324 H (75-99) mg/dL Microbiology - Last 24 Hours (Table) 03/23/20 11:59 Blood Culture - Preliminary Blood No Growth after 96 hours 03/23/20 11:59 Blood Culture - Preliminary Blood No Growth after 96 hours Assessment and Plan Assessment: Altered mental status likely due to underlying infection (pneumonia per ID) and component of toxic-metabolic encephalopathy (EMEKA) and medication (opiates)---resolved 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 Possible underlying diabetic neuropathy. Acute kidney insufficiency Diabetes mellitus COPD History of Chronic hypoxic respiratory failure History of Coronary artery disease status post stent Diastolic congestive heart failure Hypertension Hyperlipidemia Plan: EEG on 03/27/2020: Abnormal routine EEG. The back was slowing suggestive of mild to moderate encephalopathy of unspecified etiology. There are no focal slowing, perform discharges or seizure on the EEG. As a result all not start the patient on the antiepileptic drugs. Infection disease is on board and they stated that the patient likely has pneu monia. They also mentioned that the patient the history of discitis and was on all patient on outpatient Cefazolin and vancomycin but the cultures are negative for resistant pathogen. As a result vancomycin the will be discontinued. And the as a result the patient is being covered with cefepime and Levaquin. Please avoid opiate/narcotics or any sedative. I spoke with Dr. Yap (I.D.) regarding the lumbar puncture if unknown etiology of fever, but the he doesn't feel it's needed since the patient's mentation is improved and and he denies of any headaches or vomiting. An element agreement the patient's mentation is normal currently. He will order MRI of the lumbar. The patient was notified regarding his mixed connective tissue disease and discitis/osteomyelitis that he needs to follow up at [facility] with project crew worker/neurologist as outpatient within 1-2 weeks. The plan was discussed with the patient and the patient's nurse. Niraj Neal M.D. Neuro-hospitalist Time with Patient: Less than 30
--- NOTE | 2020-03-28 15:11 | P.PN ---
Subjective Progress Note Date: 03/28/20 Principal diagnosis: Fever, shortness of breath, back pain This is a very pleasant 70-year-old gentleman who follows with Dr. Keene is his primary care provider. He has a history of hypertension, hyperlipidemia, GERD, diastolic congestive heart failure, coronary artery disease with previous stent placement, history of right upper extremity DVT, on Eliquis, degenerative joint disease, obesity, obstructive sleep apnea maintained on CPAP in the outpatient setting. He also has a history of chronic tobacco dependence and chronic obstructive pulmonary disease and follows with Dr. Chang in our office for the same. Maintained on DuoNeb inhalations, Breo. On prednisone 10 mg daily. He does wear his CPAP nightly. He has oxygen at 2 L at night as well. He presented to the emergency room yesterday with complaints of fever. Presenting temperature 102.9. He is having some occasional shortness of breath and nonproductive cough. Somewhat nauseated with an episode of emesis times one. No abdominal discomfort. No diarrhea. He does have chronic low back pain including discitis and had been on IV antibiotics for the same. Chest x-ray reveals mild right lower lobe infiltrate which is nonspecific and seen on previous x-rays. CT angiogram revealed no evidence of monilia emboli. Scattered bilateral areas of subsegmental atelectasis. The patient is seen today in consultation on the regular medical floor. He apparently took a fall in the bathroom earlier this morning. Computed tomography scan of the brain revealed no acute intracranial hemorrhage or midline shift. He denied any loss of consciousness. He is awake and alert in no acute distress. He is maint aining good O2 saturations in the 90s on room air. He's currently afebrile. White count 7.1. Hemoglobin 9.9. Platelet count 1:30. Glipizide 0.5. D-dimer 1.74. Sodium 140. Potassium 4.7. Creatinine 1.5. ProBNP 1220. Pro-calcitonin 1.55. Hollingsworth virus not detected. He's been initiated on Symbicort, albuterol, prednisone, antibiotics in the form of cefepime, vancomycin. ID is on the case. The patient is seen today 03/26/2020 in follow-up on the selective care unit. He is more restless and confused this morning. He had blood glasses done last evening that revealed a pO2 of 101, pCO2 of 60 and a pH is 7.30. That was on 30% FiO2. He was subsequently placed on BiPAP 14/6 and 21% FiO2 and this morning's blood gases revealed a pO2 of 57, pCO2 41, pH 7.39. His FiO2 was increased to 28%. He is tachypneic and tachycardic this morning. Temperature 98.7 axillary. White count 7.4. Hemoglobin 10.4. White count 135. He is on bronchodilators, cefepime. On 03/27/2020 patient seen in follow-up on selective care unit. He is currently off BiPAP, he is on 3 L of oxygen, his pulse ox is 96%, he seemed to breathing comfortably, he does complain of lower back pain, but seems to be in no acute distress, is afebrile, hemodynamically patient is stable. No altered Mentation. He did wear BiPAP support last night with pressures of 14/60 and FiO2 of 28%. He has a mild lower extremity edema, and some mild crackles at bilateral bases, he is afebrile. 0.9 normal saline infusing at 50 ML per hour. And patient is awake and alert, oriented 3. Renal profile with slightly worsened today, nephrology is following, his sodium level is 136, potassium is 5.5, BUN of 16 and creatinine is 1.9. He tested negative for COVID 19 twice. His urinalysis did not show evidence of infection. His microbiology data was negative. He is currently on cefepime and vancomycin and ID service is following. On 03/28/2020 patient seen in follow-up on selective care unit, he is sitting up in the recliner, she looks very comfortable, breathing comfortably, he did wear BiPAP support last night, he does have a BiPAP unit at home that he regularly uses, he is currently on room air pulse on room air was 97%, his vital signs have been stable, has had no fever or chills. His labs have been reviewed. White blood cell count is 9.3, hemoglobin is 9.7, sodium is 1:30, potassium is 4.1, chloride is 106, CO2 is 20, BUN is 75, creatinine is 1.9, patient remains on cefepime and vancomycin, he received a dose of IV Lasix per nephrology today, he remains on nebulized bronchodilators, he is on anti-quite elation in the form of Eliquis Objective - Vital Signs Vital signs: Vital Signs Temp 97.4 F L 03/28/20 12:00 Pulse 84 03/28/20 14:00 Resp 16 03/28/20 14:00 BP 159/72 03/28/20 12:00 Pulse Ox 97 03/28/20 12:00 Intake & Output 03/27/20 03/28/20 03/28/20 18:59 06:59 18:59 Intake Total 846 283 7606 Output Total 550 Balance 740 864 4693 Weight 106 kg Intake: Oral 674 457 3026 Output: Urine 550 Other: Voiding Method Urinal Toilet Toilet # Voids 1 1 1 # Bowel Movements 1 1 1 - Exam GENERAL EXAM: Alert, very pleasant, 70-year-old white male, on room air with a pulse ox of 97% awake alert oriented 3 comfortable in no apparent distress. HEAD: Normocephalic/atraumatic. EYES: Normal reaction of pupils, equal size. Conjunctiva pink, sclera white. NOSE: Clear with pink turbinates. THROAT: No erythema or exudates. NECK: No masses, no JVD, no thyroid enlargement, no adenopathy. CHEST: No chest wall deformity. Symmetrical expansion. LUNGS: Equal air entry with no crackles, wheeze, rhonchi or dullness. CVS: Regular rate and rhythm, normal S1 and S2, no gallops, no murmurs, no rubs ABDOMEN: Soft, nontender. No hepatosplenomegaly, normal bowel sounds, no guarding or rigidity. EXTREMITIES: No clubbing, minimal pretibial edema, no cyanosis, 2+ pulses and upper and lower extremities. MUSCULOSKELETAL: Muscle strength and tone normal. SPINE: No scoliosis or deformity SKIN: No rashes CENTRAL NERVOUS SYSTEM: Alert and oriented -3. No focal deficits, tone is normal in all 4 extremities. PSYCHIATRIC: Alert and oriented -3. Appropriate affect. Intact judgment and insight. - Labs CBC & Chem 7: 03/28/20 07:34 03/28/20 07:34 Labs: Abnormal Lab Results - Last 24 Hours (Table) 03/27/20 03/27/20 03/28/20 Range/Units 17:03 20:02 05:55 RBC (4.30-5.90) m/uL Hgb (13.0-17.5) gm/dL Hct (39.0-53.0) % Neutrophils # (1.3-7.7) k/uL Lymphocytes # (1.0-4.8) k/uL Carbon Dioxide (22-30) mmol/L BUN (9-20) mg/dL Creatinine (0.66-1.25) mg/dL Glucose (74-99) mg/dL POC Glucose (mg/dL) 307 H 258 H 185 H (75-99) mg/dL 03/28/20 03/28/20 03/28/20 Range/Units 07:34 07:34 11:48 RBC 3.35 L (4.30-5.90) m/uL Hgb 9.7 L (13.0-17.5) gm/dL Hct 30.4 L (39.0-53.0) % Neutrophils # 8.4 H (1.3-7.7) k/uL Lymphocytes # 0.5 L (1.0-4.8) k/uL Carbon Dioxide 20 L (22-30) mmol/L BUN 75 H (9-20) mg/dL Creatinine 1.92 H (0.66-1.25) mg/dL Glucose 147 H (74-99) mg/dL POC Glucose (mg/dL) 324 H (75-99) mg/dL Microbiology - Last 24 Hours (Table) 03/23/20 11:59 Blood Culture - Preliminary Blood No Growth after 120 hours 03/23/20 11:59 Blood Culture - Preliminary Blood No Growth after 120 hours Assessment and Plan Plan: Assessment: #1. Febrile illness of unclear etiology. Presenting temperature 102.9. Currently afebrile. Blood cultures revealing no growth to date. Pro Calcitonin 1.55. Patient is on cefepime and vancomycin Possibility of pneumonia is not entirely ruled out #2. Spine discitis with Streptococcus bacteremia currently on IV cefazolin in the outpatient setting #3. Chronic changes of the right lower lobe with atelectasis and possible early pneumonia. Today's chest x-ray 03/26/2020 reveals a new patchy left basilar infiltrate/atelectasis #4. Chronic obstructive pulmonary disease, currently inactive in stable #5. Chronic hypoxemic respiratory failure secondary to above, on home oxygen #6. Obstructive sleep apnea utilizing CPAP in the outpatient setting #7. Morbid obesity #8. Prior history of chronic tobacco dependence #9. Degenerative disc disease #10. Coronary artery disease with previous stent placement #11. History of diastolic congestive heart failure #12. Hypertension #13. Hyperlipidemia Plan: Patient is doing well, no acute events overnight, he is currently on room air, no worsening dyspnea, from pulmonary perspective she can be considered for discharge home on antibiotics per ID service recommendations, he has home O2 and BiPAP, he can resume his maintenance inhalers including Breo-Ellipta, he will need outpatient follow-up with Dr. Chang in the office in 7-10 days I performed a history & physical examination of the patient and discussed their management with my nurse practitioner, Skylar Mckoy. I reviewed the nurse practitioner's note and agree with the documented findings and plan of care. Lung sounds are positive for diminished breath sounds.. The findings and the impression was discussed with the patient. I attest to the documentation by the nurse practitioner. Time with Patient: Less than 30
[2020-03-28 17:00] LABS: Glucose,Whole Blood 481 mg/dL (75-99)
[2020-03-28 17:00] LABS: Glucose,Whole Blood 308 mg/dL (75-99)
[2020-03-28 20:12] LABS: Glucose,Whole Blood 261 mg/dL (75-99)
[2020-03-28] MEDS ORDERED: oxyCODONE-APAP 10-325MG 1 EACH TAB PO STA (21:01)
[2020-03-28] MEDS: ATORVASTATIN 80 MG TAB PO SCH (21:05)
[2020-03-28] MEDS: PRAMIPEXOLE 1 MG TAB PO SCH (21:06)
[2020-03-28] MEDS: INSULIN DETEMIR (LEVEMIR) 100 UNIT/ML SYR SQ SCH (21:06)
[2020-03-28] MEDS: MELATONIN 3 MG TABLET PO PRN (21:12)
--- NOTE | 2020-03-28 23:12 | PN ---
PROGRESS NOTE DATE OF SERVICE: 03/28/2020 REASON FOR FOLLOWUP: Pneumonia and discitis. INTERVAL HISTORY: The patient is currently afebrile. The patient is feeling much better. The patient is currently breathing comfortably on room air. Denies having any chest pain or shortness of breath. Minimal cough. No abdominal pain or diarrhea. PHYSICAL EXAMINATION: Blood pressure 147/64 with a pulse of 83, temperature 97.9. He is 97% on room air. General description is an elderly male up in the chair in no distress. Respiratory system: Unlabored breathing, decreased breath sounds at bases. No wheeze. Heart S1, S2. Regular rate and rhythm. Abdomen soft, no tenderness. LAB: Hemoglobin 9.7, white count 9.3. Creatinine is 1.92. Blood culture has been negative. DIAGNOSTIC IMPRESSION AND PLAN: Patient admitted to hospital with fever, concerning for pneumonia in this patient with history of discitis . The patient is currently covered with cefepime, overall improvement. MRI of the lumbosacral spine with contrast for followup. Continue supportive care. MMODL / IJN: [id number] / MTDD
[2020-03-29 06:12] LABS: Glucose,Whole Blood 186 mg/dL (75-99)
[2020-03-29] MEDS: PANTOPRAZOLE 40 MG TABLET PO SCH (06:27)
[2020-03-29] MEDS: INSULIN ASPART (NovoLOG) 100 UNIT/ML VIAL SQ SCH ×4 (06:27→21:36)
[2020-03-29] MEDS: methylPREDNISolone SOD SUCCI 125 MG/2 ML VIAL IV SCH ×4 (06:27→22:52)
[2020-03-29 07:35] LABS: Basophils % (A) 0 %; Eosinophils # (A) 0.1 k/uL (0-0.7); Eosinophils % (A) 1 %; HGB 9.3 gm/dL (13.0-17.5); Hypochromasia Moderate; Lymphocytes # (A) 0.5 k/uL (1.0-4.8); Lymphocytes % (A) 5 %; MCH 27.5 pg (25.0-35.0); MCV 91.4 fL (80.0-100.0); Mean Platelet Volume 10.5; Monocytes # (A) 0.3 k/uL (0-1.0); Monocytes % (A) 3 %; Neutrophils # (A) 8.9 k/uL (1.3-7.7); Neutrophils % (A) 90 %; Platelet Count 223 k/uL (150-450); RBC 3.39 m/uL (4.30-5.90); RDW 15.9 % (11.5-15.5); WBC 9.9 k/uL (3.8-10.6)
[2020-03-29 07:42] LABS: Calcium 8.9 mg/dL (8.4-10.2); Magnesium 2.2 mg/dL (1.6-2.3)
[2020-03-29] MEDS: IPRATROPIUM-ALBUTEROL 3 ML NEB INHALATION SCH ×4 (07:46→21:21)
[2020-03-29] MEDS: BUDESONIDE 1 MG/2 ML NEBU INHALATION SCH ×2 (07:46→21:21)
[2020-03-29] MEDS: FORMOTEROL FUMARATE 20 MCG/2 ML NEBU INHALATION SCH ×2 (07:46→21:21)
--- NOTE | 2020-03-29 08:55 | P.PN ---
Subjective Progress Note Date: 03/28/20 This is a 70-year-old male who was recently admitted with shortness of breath and cough and pneumonia with multiple complex medical issues including congestive heart failure and acute on chronic renal failure and is being closely monitored. Multiple medical consultations following. Patient is maintained on IV steroids and will continue at this time. Physical therapy following and patient was able to work with them today. Patient is maintained on IV antibiotics in the form of cefepime and cultures have remained negative. Infectious disease is following. Case management and social work also following with the possibility of ECF once discharged. No chest pain noted. Patient is afebrile. Will continue to monitor closely. Review of systems: Constitutional: No reports of fatigue, fever, or chills Cardiovascular: No reports of chest pain or palpitations Respiratory: No reports of shortness of breath or cough GI: No reports of nausea, vomiting, or diarrhea : No reports of dysuria or retention Neurovascular: No reports of weakness or numbness All medications have been reviewed Active Medications Acetaminophen (Acetaminophen Tab 325 Mg Tab) 325 mg PO Q4HR PRN PRN Reason: Fever and/ or Pain Albuterol/Ipratropium (Ipratropium-Albuterol 3 Ml Neb) 3 ml INHALATION RT-QID PRN PRN Reason: Shortness Of Breath Last Admin: 03/26/20 23:54 Dose: 3 ml Documented by: Albuterol/Ipratropium (Ipratropium-Albuterol 3 Ml Neb) 3 ml INHALATION RT-QID [facility] Last Admin: 03/29/20 07:46 Dose: 3 ml Documented by: Apixaban (Apixaban 5 Mg Tab) 5 mg PO Q12H [facility] Last Admin: 03/28/20 21:05 Dose: 5 mg Documented by: Aspirin (Aspirin 81 Mg) 81 mg PO DAILY [facility] Last Admin: 03/28/20 09:15 Dose: 81 mg Documented by: Atorvastatin Calcium (Atorvastatin 80 Mg Tab) 80 mg PO HS [facility] Last Admin: 03/28/20 21:05 Dose: 80 mg Documented by: Budesonide (Budesonide 1 Mg/2 Ml Nebu) 1 mg INHALATION RT-BID [facility] Last Admin: 03/29/20 07:46 Dose: 1 mg Documented by: Colchicine (Colchicine 0.6 Mg Each) 0.6 mg PO DAILY [facility] Last Admin: 03/28/20 09:18 Dose: 0.6 mg Documented by: Folic Acid (Folic Acid 1 Mg Tab) 1 mg PO DAILY@1200 [facility] Last Admin: 03/28/20 09:16 Dose: 1 mg Documented by: Formoterol Fumarate (Formoterol Fumarate 20 Mcg/2 Ml Nebu) 20 mcg INHALATION RT-BID [facility] Last Admin: 03/29/20 07:46 Dose: 20 mcg Documented by: Hydralazine HCl (Hydralazine Hcl 50 Mg Tab) 50 mg PO Q8HR [facility] Last Admin: 03/28/20 23:29 Dose: 50 mg Documented by: Cefepime HCl 2 gm/ Sodium (Chloride) 100 mls @ 25 mls/hr IVPB Q12HR [facility] Last Admin: 03/28/20 21:06 Dose: 25 mls/hr Documented by: Insulin Aspart (Insulin Aspart (Novolog) 100 Unit/Ml Vial) 0 unit SQ ACHS [facility]; Protocol Last Admin: 03/29/20 06:27 Dose: 3 unit Documented by: Insulin Detemir (Insulin Detemir (Levemir) 100 Unit/Ml Syr) 30 unit SQ HS [facility] Last Admin: 03/28/20 21:06 Dose: 30 unit Documented by: Ketoconazole (Ketoconazole 2% Shampoo 1 Applic/Ml) 1 applic TOPICAL Q72H [facility] Last Admin: 03/28/20 10:41 Dose: Not Given Documented by: Magnesium Oxide (Magnesium Oxide 400 Mg Tab) 400 mg PO DAILY [facility] Last Admin: 03/28/20 09:16 Dose: 400 mg Documented by: Melatonin (Melatonin 3 Mg Tablet) 3 mg PO DAILY PRN PRN Reason: Insomnia Last Admin: 03/28/20 21:12 Dose: 3 mg Documented by: Methylprednisolone Sodium Succinate (Methylprednisolone Sod Succi 125 Mg/2 Ml Vial) 60 mg IV Q6HR [facility] Last Admin: 03/29/20 06:27 Dose: 60 mg Documented by: Metoprolol Tartrate (Metoprolol Tartrate 50 Mg Tab) 50 mg PO BID [facility] Last Admin: 03/28/20 21:05 Dose: 50 mg Documented by: Miscellaneous Information (Pneumonia Protocol Utilized 1 Each Misc) 1 each PO ONCE PRN PRN Reason: Per Protocol Miscellaneous Information (Magnesium Replacement Protocol 1 Each Misc) 1 each M ISCELLANE DAILY PRN; Protocol PRN Reason: Per Protocol Miscellaneous Information (Potassium Replacement Protocol 1 Each Misc) 1 each MISCELLANE DAILY PRN; Protocol PRN Reason: Per Protocol Multivitamins (Multivitamins, Thera 1 Each Tab) 1 each PO DAILY@1200 [facility] Last Admin: 03/28/20 12:12 Dose: 1 each Documented by: Nitroglycerin (Nitroglycerin Sl Tabs 0.4 Mg Tab) 0.4 mg SUBLINGUAL Q5M PRN PRN Reason: Chest Pain Pantoprazole Sodium (Pantoprazole 40 Mg Tablet) 40 mg PO AC-BRKFST [facility] Last Admin: 03/29/20 06:27 Dose: 40 mg Documented by: Pramipexole Dihydrochloride (Pramipexole 1 Mg Tab) 1 mg PO [facility] Last Admin: 03/28/20 21:06 Dose: 1 mg Documented by: Quetiapine Fumarate (Quetiapine 25 Mg Tab) 25 mg PO BID [facility] Last Admin: 03/28/20 21:06 Dose: 25 mg Documented by: Tamsulosin HCl (Tamsulosin 0.4 Mg Cap.Er.24h) 0.4 mg PO DAILY [facility] Last Admin: 03/28/20 09:16 Dose: 0.4 mg Documented by: Thiamine HCl (Thiamine 100 Mg Tab) 100 mg PO DAILY@1200 [facility] Last Admin: 03/28/20 12:12 Dose: 100 mg Documented by: Objective - Vital Signs Vital signs: Vital Signs Temp 97.9 F 03/29/20 04:00 Pulse 76 03/29/20 08:29 Resp 18 03/29/20 04:00 BP 142/68 03/29/20 04:00 Pulse Ox 96 03/29/20 08:04 Intake & Output 03/28/20 03/29/20 03/29/20 18:59 06:59 18:59 Intake Total 2280 Balance 2280 Weight 106.5 kg Intake: Oral 2280 Other: Voiding Method Toilet Toilet # Voids 3 1 # Bowel Movements 3 1 - Exam Gen: This is a 70-year-old male awake, alert and oriented 2, well-developed, well-nourished, obese. Temp is 97.4F, pulse is 74, respirations are 16, blood pressure is 156/71, oxygen is 97% room air HEENT: Head is atraumatic, normocephalic. Pupils equal, round. Sclerae is anicteric. NECK: Supple. No JVD. No lymphadenopathy. No thyromegaly. LUNGS: Diminished breath sounds bilaterally with a few scattered rhonchi noted. No intercostal retractions. HEART: S1, S2 are muffled ABDOMEN: Soft. Bowel sounds are present. No masses. No tenderness. EXTREMITIES: No pedal edema. No calf tenderness. NEUROLOGICAL: Patient is awake, alert and oriented x2. No focal deficits, diffusely weak - Labs CBC & Chem 7: 03/29/20 07:10 03/29/20 07:10 Labs: Abnormal Lab Results - Last 24 Hours (Table) 03/28/20 03/28/20 03/28/20 Range/Units 07:34 11:48 16:57 RBC (4.30-5.90) m/uL Hgb (13.0-17.5) gm/dL Hct (39.0-53.0) % MCHC (31.0-37.0) g/dL RDW (11.5-15.5) % Neutrophils # (1.3-7.7) k/uL Lymphocytes # (1.0-4.8) k/uL Carbon Dioxide 20 L (22-30) mmol/L BUN 75 H (9-20) mg/dL Creatinine 1.92 H (0.66-1.25) mg/dL Glucose 147 H (74-99) mg/dL POC Glucose (mg/dL) 324 H 481 H (75-99) mg/dL 03/28/20 03/28/20 03/29/20 Range/Units 16:59 20:10 06:09 RBC (4.30-5.90) m/uL Hgb (13.0-17.5) gm/dL Hct (39.0-53.0) % MCHC (31.0-37.0) g/dL RDW (11.5-15.5) % Neutrophils # (1.3-7.7) k/uL Lymphocytes # (1.0-4.8) k/uL Carbon Dioxide (22-30) mmol/L BUN (9-20) mg/dL Creatinine (0.66-1.25) mg/dL Glucose (74-99) mg/dL POC Glucose (mg/dL) 308 H 261 H 186 H (75-99) mg/dL 03/29/20 03/29/20 Range/Units 07:10 07:10 RBC 3.39 L (4.30-5.90) m/uL Hgb 9.3 L (13.0-17.5) gm/dL Hct 31.0 L (39.0-53.0) % MCHC 30.0 L (31.0-37.0) g/dL RDW 15.9 H (11.5-15.5) % Neutrophils # 8.9 H (1.3-7.7) k/uL Lymphocytes # 0.5 L (1.0-4.8) k/uL Carbon Dioxide 20 L (22-30) mmol/L BUN 81 H (9-20) mg/dL Creatinine 1.90 H (0.66-1.25) mg/dL Glucose 168 H (74-99) mg/dL POC Glucose (mg/dL) (75-99) mg/dL Microbiology - Last 24 Hours (Table) 03/23/20 11:59 Blood Culture - Preliminary Blood No Growth after 120 hours 03/23/20 11:59 Blood Culture - Preliminary Blood No Growth after 120 hours Assessment and Plan Assessment: Shortness of breath and cough for possible bilateral pneumonia with acute hypoxic respiratory failure, right more than left with hypoxic hypercarbic respiratory failure Congestive heart failure acute exacerbation with acute on chronic diastolic dysfunction 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 Acute on chronic renal failure with acute tubular necrosis Hyperkalemia secondary to renal failure Elevated BNP Elevated plasma lactic acid, possible sepsis present on admission Change in mental status acute about encephalopathy, multifactorial Hypomagnesemia Elevated AST increased LDH and CRP Increased white blood count anemia, normocytic thrombocytopenia History of recent discitis with alphahemolytic streptococci in the blood culture On PICC line on the left arm with IV antibiotics History of coronary artery disease history of congestive heart failure, ejection fraction unknown History of chronic obstructive pulmonary disease History of deep vein thrombosis Gastroesophageal reflux disease hypertension Hyperlipidemia history of degenerative joint disease history of prostate disorder History of sleep apnea history of recent sepsis secondary to discitis Urinary retention on Finch catheter History of DVT on the right arm History of lower leg cellulitis obstructive sleep apnea Nonsustained ventricular tachycardia history history of transient ischemic attack History of benign prostatic hypertrophy History of colonic polyps History of back surgery/degenerative joint disease history of coronary artery disease/stent history of nicotine dependence Obesity with a body mass index of 37.1 Recommendations and discussion: Recommend continue with current medications, management, and symptomatic treatment. Multiple medical consultations following. Patient is maintained on IV steroids and will continue at this time. PT/OT working with the patient and social work and case management following for the possibility of ECF or home care once discharged. Will repeat labs in monitor closely. Due to multiple complex medical issues prognosis is guarded. Further recommendations to follow.
[2020-03-29] MEDS ORDERED: LORazepam 2 MG/ML INJ IV STA (09:14)
[2020-03-29] MEDS: CEFEPIME 2 GM in SODIUM CHLORIDE 0.9% 100 ML IVPB SCH ×2 (09:15→21:34)
[2020-03-29] MEDS: QUEtiapine 25 MG TAB PO SCH ×2 (09:15→21:36)
[2020-03-29] MEDS: COLCHICINE 0.6 MG EACH PO SCH (09:15)
[2020-03-29] MEDS: METOPROLOL TARTRATE 50 MG TAB PO SCH ×2 (09:15→21:36)
[2020-03-29] MEDS: hydrALAZINE HCL 50 MG TAB PO SCH ×3 (09:15→22:52)
[2020-03-29] MEDS: APIXABAN 5 MG TAB PO SCH ×2 (09:15→21:35)
[2020-03-29] MEDS: TAMSULOSIN 0.4 MG CAP.ER.24H PO SCH (09:15)
[2020-03-29] MEDS: ASPIRIN 81 MG PO SCH (09:15)
[2020-03-29] MEDS: MAGNESIUM OXIDE 400 MG TAB PO SCH (09:15)
--- NOTE | 2020-03-29 11:35 | MR ---
EXAMINATION TYPE: MR lumbar spine wo/w con DATE OF EXAM: 03/29/2020 COMPARISON: None HISTORY: Low back pain, discitis CONTRAST: 10 mL intravenous Gadavist. TECHNIQUE: Multiplanar, multisequence images of the lumbar spine were acquired. FINDINGS: L5-S1: Broad-based central to right paracentral into the right lateral direction disc bulge is presen t. This is displacing the right S1 nerve root. Correlate with the radicular symptoms. AP spinal canal stenosis is not present. There is mild anterior thecal sac compression. Facet hypertrophy is present with ligamentum flavum laxity on the right. There is moderate right foraminal stenosis. Moderate dis c space narrowing is present. No suspicious enhancement of the disc space is evident. L4-L5: There is loss of disc height is level with central focal bulge. Some extension beyond the endp lates of L4-L5 may be present suggesting subligamentous disc herniation. Some right paracentral disc herniation into the foramen may be present. Correlate with right L5 radicular symptoms. No disc enhan cement is evident. Pedicles are congenitally short. Facet hypertrophy is present with some ligamentum flavum laxity. No AP spinal canal stenosis is present. There is severe right and left foraminal sten osis with nerve root impingement. Correlate with bilateral L5 radicular symptoms. L3-L4: Broad-based disc bulge has mild anterior thecal sac compression. Facet hypertrophy with ligame ntum flavum laxity has right posterior lateral thecal sac compression. No spinal canal stenosis is pr esent. Left neural foramen has mild narrowing. L2-L3: Broad-based disc bulge has moderate anterior thecal sac impression. No AP spinal canal stenosi s present. Facet hypertrophy is present with posterior lateral thecal sac contact. Neural foramen are patent. L1-L2: There is loss of disc height to this level. Endplate spurring from L2 is present. No AP spinal canal stenosis is present. Neural foramen are patent. T12-L1: No significant disc bulge or disc herniation. No spinal canal stenosis. No foraminal stenos is. No abnormal enhancement. No disc enhancement is evident. No endplate destruction is identified to sug gest acute discitis. IMPRESSION: 1. No suspicious changes to suggest acute discitis. 2. Degenerative changes and chronic appearing changes including disc bulging facet hypertrophy and di sc herniations discussed above. 3. Broad right paracentral disc herniation at L5-S1 has nerve root impingement of S1 within the gold en. Correlate with right S1 radicular symptoms. 4. Right paracentral and lateral disc herniation L4-5 as well as disc bulging into the foramen. Corre late with right L5 radicular symptoms. Left L5 radicular symptoms may be present as well due to the s evere bilateral foraminal narrowing at the L4-5 level.
[2020-03-29 12:01] LABS: Glucose,Whole Blood 314 mg/dL (75-99)
[2020-03-29] MEDS: FOLIC ACID 1 MG TAB PO SCH (12:25)
[2020-03-29] MEDS: THIAMINE 100 MG TAB PO SCH (12:25)
[2020-03-29] MEDS: MULTIVITAMINS, THERA 1 EACH TAB PO SCH (12:25)
--- NOTE | 2020-03-29 12:48 | P.PN ---
Subjective This is a pleasant 70-year-old male past medical history significant for coronary artery disease status post PCI of the RCA in 2009, chronic diastolic heart failure, chronic kidney disease, hypertension, dyslipidemia, COPD, obstructive sleep apnea, former nicotine dependence and DVT maintained on long-term anticoagulation. He follows in the office with Dr. Frazier. He is seen and examined sitting up in bed in no acute distress. Overall he is feeling better with no worsening shortness of breath. He has no symptoms of chest pain, dizziness or palpitations. Blood pressure 138/76 heart rate 75 afebrile maintaining oxygen saturation on room air. Laboratory data reviewed, WBC 9.9, hemoglobin 9.3, platelets 223, sodium 139, potassium 4.0, creatinine 1.9. He was given one dose of IV Lasix per nephrology. GENERAL: Well-appearing, well-nourished and in no acute distress. NECK: Supple without JVD or thyromegaly. LUNGS: Clear to auscultation bilaterally, no wheezes, rhonchi or rales. Respiration equal and unlabored. Diminished bilaterally. HEART: Regular rate and rhythm without murmurs, rubs or gallops. S1 and S2 heard. EXTREMITIES: Normal range of motion, trace bilateral lower extremity edema. No clubbing or cyanosis. Peripheral pulses intact. ASSESSMENT Pneumonia Acute on chronic diastolic heart failure, improved. Acute kidney injury Hypertension Coronary artery disease status post PCI Dyslipidemia COPD DVT maintained on long-term anticoagulation PLAN Diuretics per nephrology. Ideally would like to resume oral when appropriate. We will follow along as needed, please call with further questions or concerns. Follow up with Dr. Frazier in the office in 2 weeks. Nurse Practitioner note has been reviewed, I agree with a documented findings and plan of care. Patient was seen and examined. Objective - Vital Signs Vital signs: Vital Signs Temp 98.0 F 03/29/20 08:00 Pulse 80 03/29/20 11:39 Resp 18 03/29/20 08:00 BP 138/76 03/29/20 08:00 Pulse Ox 96 03/29/20 08:04 Intake & Output 03/28/20 03/29/20 03/29/20 18:59 06:59 18:59 Intake Total 2280 540 Balance 2280 540 Weight 106.5 kg Intake: Oral 2280 540 Other: Voiding Method Toilet Toilet Toilet # Voids 3 1 # Bowel Movements 3 1 - Labs CBC & Chem 7: 03/29/20 07:10 03/29/20 07:10 Labs: Abnormal Lab Results - Last 24 Hours (Table) 03/28/20 03/28/20 03/28/20 Range/Units 16:57 16:59 20:10 RBC (4.30-5.90) m/uL Hgb (13.0-17.5) gm/dL Hct (39.0-53.0) % MCHC (31.0-37.0) g/dL RDW (11.5-15.5) % Neutrophils # (1.3-7.7) k/uL Lymphocytes # (1.0-4.8) k/uL Carbon Dioxide (22-30) mmol/L BUN (9-20) mg/dL Creatinine (0.66-1.25) mg/dL Glucose (74-99) mg/dL POC Glucose (mg/dL) 481 H 308 H 261 H (75-99) mg/dL 03/29/20 03/29/20 03/29/20 Range/Units 06:09 07:10 07:10 RBC 3.39 L (4.30-5.90) m/uL Hgb 9.3 L (13.0-17.5) gm/dL Hct 31.0 L (39.0-53.0) % MCHC 30.0 L (31.0-37.0) g/dL RDW 15.9 H (11.5-15.5) % Neutrophils # 8.9 H (1.3-7.7) k/uL Lymphocytes # 0.5 L (1.0-4.8) k/uL Carbon Dioxide 20 L (22-30) mmol/L BUN 81 H (9-20) mg/dL Creatinine 1.90 H (0.66-1.25) mg/dL Glucose 168 H (74-99) mg/dL POC Glucose (mg/dL) 186 H (75-99) mg/dL 03/29/20 Range/Units 11:58 RBC (4.30-5.90) m/uL Hgb (13.0-17.5) gm/dL Hct (39.0-53.0) % MCHC (31.0-37.0) g/dL RDW (11.5-15.5) % Neutrophils # (1.3-7.7) k/uL Lymphocytes # (1.0-4.8) k/uL Carbon Dioxide (22-30) mmol/L BUN (9-20) mg/dL Creatinine (0.66-1.25) mg/dL Glucose (74-99) mg/dL POC Glucose (mg/dL) 314 H (75-99) mg/dL Microbiology - Last 24 Hours (Table) 03/23/20 11:59 Blood Culture - Preliminary Blood No Growth after 120 hours 03/23/20 11:59 Blood Culture - Preliminary Blood No Growth after 120 hours
--- NOTE | 2020-03-29 13:24 | P.PN ---
Subjective Patient is seen in follow-up for acute kidney injury. Renal function is stable. Blood pressure stable. Good urine output. No chest pain or shortness of breath. Oral intake is good. Complains of swelling in his lower extremities. Vital signs are stable. General: The patient appeared well nourished and normally developed. HEENT: Head exam is unremarkable. Neck is without jugular venous distension. LUNGS: Breath sounds decreased. HEART: Rate and Rhythm are regular. ABDOMEN: Soft, nontender. EXTREMITITES: 1+ edema. Objective - Vital Signs Vital signs: Vital Signs Temp 97.1 F L 03/29/20 12:00 Pulse 75 03/29/20 12:00 Resp 14 03/29/20 12:00 BP 153/74 03/29/20 12:00 Pulse Ox 97 03/29/20 12:00 Intake & Output 03/28/20 03/29/20 03/29/20 18:59 06:59 18:59 Intake Total 2280 780 Balance 2280 780 Weight 106.5 kg Intake: Oral 2280 780 Other: Voiding Method Toilet Toilet Toilet # Voids 3 1 # Bowel Movements 3 1 - Labs CBC & Chem 7: 03/29/20 07:10 03/29/20 07:10 Labs: Abnormal Lab Results - Last 24 Hours (Table) 03/28/20 03/28/20 03/28/20 Range/Units 16:57 16:59 20:10 RBC (4.30-5.90) m/uL Hgb (13.0-17.5) gm/dL Hct (39.0-53.0) % MCHC (31.0-37.0) g/dL RDW (11.5-15.5) % Neutrophils # (1.3-7.7) k/uL Lymphocytes # (1.0-4.8) k/uL Carbon Dioxide (22-30) mmol/L BUN (9-20) mg/dL Creatinine (0.66-1.25) mg/dL Glucose (74-99) mg/dL POC Glucose (mg/dL) 481 H 308 H 261 H (75-99) mg/dL 03/29/20 03/29/20 03/29/20 Range/Units 06:09 07:10 07:10 RBC 3.39 L (4.30-5.90) m/uL Hgb 9.3 L (13.0-17.5) gm/dL Hct 31.0 L (39.0-53.0) % MCHC 30.0 L (31.0-37.0) g/dL RDW 15.9 H (11.5-15.5) % Neutrophils # 8.9 H (1.3-7.7) k/uL Lymphocytes # 0.5 L (1.0-4.8) k/uL Carbon Dioxide 20 L (22-30) mmol/L BUN 81 H (9-20) mg/dL Creatinine 1.90 H (0.66-1.25) mg/dL Glucose 168 H (74-99) mg/dL POC Glucose (mg/dL) 186 H (75-99) mg/dL 03/29/20 Range/Units 11:58 RBC (4.30-5.90) m/uL Hgb (13.0-17.5) gm/dL Hct (39.0-53.0) % MCHC (31.0-37.0) g/dL RDW (11.5-15.5) % Neutrophils # (1.3-7.7) k/uL Lymphocytes # (1.0-4.8) k/uL Carbon Dioxide (22-30) mmol/L BUN (9-20) mg/dL Creatinine (0.66-1.25) mg/dL Glucose (74-99) mg/dL POC Glucose (mg/dL) 314 H (75-99) mg/dL Microbiology - Last 24 Hours (Table) 03/23/20 11:59 Blood Culture - Preliminary Blood No Growth after 120 hours 03/23/20 11:59 Blood Culture - Preliminary Blood No Growth after 120 hours Assessment and Plan Plan: Assessment: 1. Acute kidney injury secondary to ATN secondary to contrast-induced acute kidney injury and further worsened with the use of nonsteroidals and diuretics. Baseline creatinine near 1 and is stable at 1.92 today. UA benign. 2. Urinary retention status post catheterization this admission. On Flomax. 3. Lumbar discitis maintained on antibiotics. Had MRI this morning which reveals no evidence of discitis. 4. Mild hyperkalemia secondary to acute kidney injury, Motrin and hyperglycemia. Resolved. 5. Diabetes mellitus. 6. Lower extremity edema. 7. Metabolic acidosis secondary to IV fluids and acute kidney injury. 8. Anemia. Rule out iron deficiency. Plan: Monitor bladder scans closely. To insert Finch catheter if over 300 mL of urine present. Add Lasix 20 mg IV twice daily. Continue to monitor renal function and urine output. Repeat electrolytes in the morning.
[2020-03-29 15:07] VITALS: BMI 36.8
[2020-03-29 17:05] LABS: Glucose,Whole Blood 288 mg/dL (75-99)
--- NOTE | 2020-03-29 17:08 | P.PN ---
Subjective Progress Note Date: 03/29/20 The patient was seen at bedside and he stated that he's doing much better today compared to today's initial presentation. He stated that he's been the ambulating on his own without any assistance. He denies of any focal weakness or numbness. Objective - Vital Signs Vital signs: Vital Signs Temp 97.4 F L 03/29/20 16:00 Pulse 80 03/29/20 16:00 Resp 16 03/29/20 16:00 BP 168/88 03/29/20 16:00 Pulse Ox 97 03/29/20 16:00 Intake & Output 03/28/20 03/29/20 03/29/20 18:59 06:59 18:59 Intake Total 2280 1360 Balance 2280 1360 Weight 106.5 kg 106.5 kg Intake: Intake, IV Titration 100 Amount Cefepime 2 gm In Sodium 100 Chloride 0.9% 100 ml @ 25 mls/hr IVPB Q12HR [facility] Rx #:[id number] Oral 2280 1260 Other: Voiding Method Toilet Toilet Toilet # Voids 3 1 # Bowel Movements 3 1 - Exam GENERAL: The patient is lying in bed and is not in acute distress. Patient was sitting at bedside of chair. NEUROLOGICAL: Higher mental function: The patient is awake, alert, oriented to self, place and time. Patient is following commands. No aphasia and no neglect. Cranial nerves: The pupils are round, equal and reactive to light and accommodation. Visual kimball are full to confrontation throughout. Extraocular movement is intact no nystagmus is noted. Facial sensation is normal to touch throughout. The facial strength is normal throughout. Hearing is normal bilaterally to hand rub. Tongue is midline and moved [id number] without any difficulty. No dysarthria is noted. Shoulder shrug is normal bilaterally. Motor: Gait is normal with normal arm swings. The strength is 5 over 5 through out. Normal tone and bulk. Cerebellum: Normal finger to nose bilaterally. Sensation: Sensation is normal to touch throughout. Reflexes (right/left): 2+ throughout. Plantars are downgoing bilaterally. - Labs CBC & Chem 7: 03/29/20 07:10 03/29/20 07:10 Labs: Abnormal Lab Results - Last 24 Hours (Table) 03/28/20 03/29/20 03/29/20 Range/Units 20:10 06:09 07:10 RBC 3.39 L (4.30-5.90) m/uL Hgb 9.3 L (13.0-17.5) gm/dL Hct 31.0 L (39.0-53.0) % MCHC 30.0 L (31.0-37.0) g/dL RDW 15.9 H (11.5-15.5) % Neutrophils # 8.9 H (1.3-7.7) k/uL Lymphocytes # 0.5 L (1.0-4.8) k/uL Carbon Dioxide (22-30) mmol/L BUN (9-20) mg/dL Creatinine (0.66-1.25) mg/dL Glucose (74-99) mg/dL POC Glucose (mg/dL) 261 H 186 H (75-99) mg/dL 03/29/20 03/29/20 03/29/20 Range/Units 07:10 11:58 17:04 RBC (4.30-5.90) m/uL Hgb (13.0-17.5) gm/dL Hct (39.0-53.0) % MCHC (31.0-37.0) g/dL RDW (11.5-15.5) % Neutrophils # (1.3-7.7) k/uL Lymphocytes # (1.0-4.8) k/uL Carbon Dioxide 20 L (22-30) mmol/L BUN 81 H (9-20) mg/dL Creatinine 1.90 H (0.66-1.25) mg/dL Glucose 168 H (74-99) mg/dL POC Glucose (mg/dL) 314 H 288 H (75-99) mg/dL Microbiology - Last 24 Hours (Table) 03/23/20 11:59 Blood Culture - Final Blood No Growth after 144 hours 03/23/20 11:59 Blood Culture - Final Blood No Growth after 144 hours Assessment and Plan Assessment: Altered mental status likely due to underlying infection (pneumonia per ID) and component of toxic-metabolic encephalopathy (EMEKA) and medication (opiates)---resolved 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 Possible underlying diabetic neuropathy. Acute kidney insufficiency Diabetes mellitus COPD History of Chronic hypoxic respiratory failure History of Coronary artery disease status post stent Diastolic congestive heart failure Hypertension Hyperlipidemia Plan: EEG on 03/27/2020: Abnormal routine EEG. The back was slowing suggestive of mild to moderate encephalopathy of unspecified etiology. There are no focal slowing, perform discharges or seizure on the EEG. As a result all not start the patient on the antiepileptic drugs. Infection disease is on board and they stated that the patient likely has pneumonia. They also mentioned that the patient the history of discitis and was on all patient on outpatient Cefazolin and vancomycin but the cultures are negative for resistant pathogen. As a result vancomycin the will be discontinued. And the as a result the patient is being covered with cefepime and Levaquin. Please avoid opiate/narcotics or any sedative. I spoke with Dr. Yap (I.D.) regarding the lumbar puncture if unknown etiology of fever, but the he doesn't feel it's needed since the patient's mentation is improved and and he denies of any headaches or vomiting. An element agreement the patient's mentation is normal currently. MRI of lumbar spine ordered by infection disease is pending. The patient was notified regarding his mixed connective tissue disease and discitis/osteomyelitis that he needs to follow up at [facility] with staffing administrator/neurologist as outpatient within 1-2 weeks. The plan was discussed with the patient and the patient's nurse. Niraj Neal M.D. Neuro-hospitalist Time with Patient: Less than 30
--- NOTE | 2020-03-29 19:09 | P.PN ---
Subjective Progress Note Date: 03/29/20 This is a 70-year-old male who was recently admitted with shortness of breath and cough and pneumonia with multiple complex medical issues including congestive heart failure and acute on chronic renal failure and is being closely monitored. Multiple medical consultations following. Patient is maintained on IV steroids and will continue at this time. Physical therapy following and patient was able to work with them today. Patient is maintained on IV antibiotics in the form of cefepime and cultures have remained negative. Infectious disease is following. Case management and social work also following with the possibility of ECF once discharged. No chest pain noted. Patient is afebrile. Will continue to monitor closely. 03/29/2020 Patient is seen and evaluated in follow-up currently undergoing MRI and report is pending. Patient is maintained on IV steroids and will continue at this loco e. Patient was up with standby assist although continues to be unsteady requiring walker and assistance. Multiple medical consultations following. Patient is also continued on IV antibiotics and infectious disease following closely. Patient had been receiving IV antibiotics outpatient. Patient to may doss with IV lasix as he has continued lower extremity swelling noted on exam. Review of systems: Constitutional: No reports of fatigue, fever, or chills Cardiovascular: No reports of chest pain or palpitations Respiratory: No reports of shortness of breath or cough GI: No reports of nausea, vomiting, or diarrhea : No reports of dysuria or retention Neurovascular: No reports of weakness or numbness All medications have been reviewed Active Medications Acetaminophen (Acetaminophen Tab 325 Mg Tab) 325 mg PO Q4HR PRN PRN Reason: Fever and/ or Pain Albuterol/Ipratropium (Ipratropium-Albuterol 3 Ml Neb) 3 ml INHALATION RT-QID PRN PRN Reason: Shortness Of Breath Last Admin: 03/26/20 23:54 Dose: 3 ml Documented by: Albuterol/Ipratropium (Ipratropium-Albuterol 3 Ml Neb) 3 ml INHALATION RT-QID [facility] Last Admin: 03/29/20 15:26 Dose: 3 ml Documented by: Apixaban (Apixaban 5 Mg Tab) 5 mg PO Q12H [facility] Last Admin: 03/29/20 09:15 Dose: 5 mg Documented by: Aspirin (Aspirin 81 Mg) 81 mg PO DAILY [facility] Last Admin: 03/29/20 09:15 Dose: 81 mg Documented by: Atorvastatin Calcium (Atorvastatin 80 Mg Tab) 80 mg PO [facility] Last Admin: 03/28/20 21:05 Dose: 80 mg Documented by: Budesonide (Budesonide 1 Mg/2 Ml Nebu) 1 mg INHALATION RT-BID [facility] Last Admin: 03/29/20 07:46 Dose: 1 mg Documented by: Colchicine (Colchicine 0.6 Mg Each) 0.6 mg PO DAILY [facility] Last Admin: 03/29/20 09:15 Dose: 0.6 mg Documented by: Folic Acid (Folic Acid 1 Mg Tab) 1 mg PO DAILY@1200 [facility] Last Admin: 03/29/20 12:25 Dose: 1 mg Documented by: Formoterol Fumarate (Formoterol Fumarate 20 Mcg/2 Ml Nebu) 20 mcg INHALATION RT-BID [facility] Last Admin: 03/29/20 07:46 Dose: 20 mcg Documented by: Furosemide (Furosemide 10 Mg/Ml 2 Ml Vial) 20 mg IV Q12HR [facility] Hydralazine HCl (Hydralazine Hcl 50 Mg Tab) 50 mg PO Q8HR [facility] Last Admin: 03/29/20 09:15 Dose: 50 mg Documented by: Cefepime HCl 2 gm/ Sodium (Chloride) 100 mls @ 25 mls/hr IVPB Q12HR [facility] Last Admin: 03/29/20 09:15 Dose: 25 mls/hr Documented by: Insulin Aspart (Insulin Aspart (Novolog) 100 Unit/Ml Vial) 0 unit SQ [facility]; Protocol Last Admin: 03/29/20 12:25 Dose: 8 unit Documented by: Insulin Detemir (Insulin Detemir (Levemir) 100 Unit/Ml Syr) 30 unit SQ [facility] Last Admin: 03/28/20 21:06 Dose: 30 unit Documented by: Ketoconazole (Ketoconazole 2% Shampoo 1 Applic/Ml) 1 applic TOPICAL Q72H [facility] Last Admin: 03/28/20 10:41 Dose: Not Given Documented by: Magnesium Oxide (Magnesium Oxide 400 Mg Tab) 400 mg PO DAILY [facility] Last Admin: 03/29/20 09:15 Dose: 400 mg Documented by: Melatonin (Melatonin 3 Mg Tablet) 3 mg PO DAILY PRN PRN Reason: Insomnia Last Admin: 03/28/20 21:12 Dose: 3 mg Documented by: Methylprednisolone Sodium Succinate (Methylprednisolone Sod Succi 125 Mg/2 Ml Vial) 60 mg IV Q6HR [facility] Last Admin: 03/29/20 12:25 Dose: 60 mg Documented by: Metoprolol Tartrate (Metoprolol Tartrate 50 Mg Tab) 50 mg PO BID [facility] Last Admin: 03/29/20 09:15 Dose: 50 mg Documented by: Miscellaneous Information (Pneumonia Protocol Utilized 1 Each Misc) 1 each PO ONCE PRN PRN Reason: Per Protocol Miscellaneous Information (Magnesium Replacement Protocol 1 Each Misc) 1 each MISCELLANE DAILY PRN; Protocol PRN Reason: Per Protocol Miscellaneous Information (Potassium Replacement Protocol 1 Each Misc) 1 each MISCELLANE DAILY PRN; Protocol PRN Reason: Per Protocol Multivitamins (Multivitamins, Thera 1 Each Tab) 1 each PO DAILY@1200 [facility] Last Admin: 03/29/20 12:25 Dose: 1 each Documented by: Nitroglycerin (Nitroglycerin Sl Tabs 0.4 Mg Tab) 0.4 mg SUBLINGUAL Q5M PRN PRN Reason: Chest Pain Pantoprazole Sodium (Pantoprazole 40 Mg Tablet) 40 mg PO AC[facility] Last Admin: 03/29/20 06:27 Dose: 40 mg Documented by: Pramipexole Dihydrochloride (Pramipexole 1 Mg Tab) 1 mg PO [facility] Last Admin: 03/28/20 21:06 Dose: 1 mg Documented by: Quetiapine Fumarate (Quetiapine 25 Mg Tab) 25 mg PO BID [facility] Last Admin: 03/29/20 09:15 Dose: 25 mg Documented by: Tamsulosin HCl (Tamsulosin 0.4 Mg Cap.Er.24h) 0.4 mg PO DAILY [facility] Last Admin: 03/29/20 09:15 Dose: 0.4 mg Documented by: Thiamine HCl (Thiamine 100 Mg Tab) 100 mg PO DAILY@1200 [facility] Last Admin: 03/29/20 12:25 Dose: 100 mg Documented by: Objective - Vital Signs Vital signs: Vital Signs Temp 98.0 F 03/29/20 08:00 Pulse 80 03/29/20 11:39 Resp 18 03/29/20 08:00 BP 138/76 03/29/20 08:00 Pulse Ox 96 03/29/20 08:04 Intake & Output 03/28/20 03/29/20 03/29/20 18:59 06:59 18:59 Intake Total 2280 540 Balance 2280 540 Weight 106.5 kg Intake: Oral 2280 540 Other: Voiding Method Toilet Toilet Toilet # Voids 3 1 # Bowel Movements 3 1 - Exam Gen: This is a 70-year-old male awake, alert and oriented 2, well-developed, well-nourished, obese. Temp is 98.0F, pulse is 74, respirations are 18, blood pressure is 138/76, oxygen is 96% room air HEENT: Head is atraumatic, normocephalic. Pupils equal, round. Sclerae is anicteric. NECK: Supple. No JVD. No lymphadenopathy. No thyromegaly. LUNGS: Diminished breath sounds bilaterally with a few scattered rhonchi noted. No intercostal retractions. HEART: S1, S2 are muffled ABDOMEN: Soft. Bowel sounds are present. No masses. No tenderness. EXTREMITIES: No pedal edema. No calf tenderness. b/l lower extremity edema noted NEUROLOGICAL: Patient is awake, alert and oriented x2. No focal deficits, diffusely weak - Labs CBC & Chem 7: 03/29/20 07:10 03/29/20 07:10 Labs: Abnormal Lab Results - Last 24 Hours (Table) 03/28/20 03/28/20 03/28/20 Range/Units 11:48 16:57 16:59 RBC (4.30-5.90) m/uL Hgb (13.0-17.5) gm/dL Hct (39.0-53.0) % MCHC (31.0-37.0) g/dL RDW (11.5-15.5) % Neutrophils # (1.3-7.7) k/uL Lymphocytes # (1.0-4.8) k/uL Carbon Dioxide (22-30) mmol/L BUN (9-20) mg/dL Creatinine (0.66-1.25) mg/dL Glucose (74-99) mg/dL POC Glucose (mg/dL) 324 H 481 H 308 H (75-99) mg/dL 03/28/20 03/29/20 03/29/20 Range/Units 20:10 06:09 07:10 RBC 3.39 L (4.30-5.90) m/uL Hgb 9.3 L (13.0-17.5) gm/dL Hct 31.0 L (39.0-53.0) % MCHC 30.0 L (31.0-37.0) g/dL RDW 15.9 H (11.5-15.5) % Neutrophils # 8.9 H (1.3-7.7) k/uL Lymphocytes # 0.5 L (1.0-4.8) k/uL Carbon Dioxide (22-30) mmol/L BUN (9-20) mg/dL Creatinine (0.66-1.25) mg/dL Glucose (74-99) mg/dL POC Glucose (mg/dL) 261 H 186 H (75-99) mg/dL 03/29/20 Range/Units 07:10 RBC (4.30-5.90) m/uL Hgb (13.0-17.5) gm/dL Hct (39.0-53.0) % MCHC (31.0-37.0) g/dL RDW (11.5-15.5) % Neutrophils # (1.3-7.7) k/uL Lymphocytes # (1.0-4.8) k/uL Carbon Dioxide 20 L (22-30) mmol/L BUN 81 H (9-20) mg/dL Creatinine 1.90 H (0.66-1.25) mg/dL Glucose 168 H (74-99) mg/dL POC Glucose (mg/dL) (75-99) mg/dL Microbiology - Last 24 Hours (Table) 03/23/20 11:59 Blood Culture - Preliminary Blood No Growth after 120 hours 03/23/20 11:59 Blood Culture - Preliminary Blood No Growth after 120 hours Assessment and Plan Assessment: Shortness of breath and cough for possible bilateral pneumonia with acute hypoxic respiratory failure, right more than left with hypoxic hypercarbic respiratory failure Congestive heart failure acute exacerbation with acute on chronic diastolic dysfunction 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 Acute on chronic renal failure with acute tubular necrosis Hyperkalemia secondary to renal failure Elevated BNP Elevated plasma lactic acid, possible sepsis present on admission Change in mental status acute about encephalopathy, multifactorial Hypomagnesemia Elevated AST increased LDH and CRP Increased white blood count anemia, normocytic thrombocytopenia History of recent discitis with alphahemolytic streptococci in the blood culture On PICC line on the left arm with IV antibiotics History of coronary artery disease history of congestive heart failure, ejection fraction unknown History of chronic obstructive pulmonary disease History of deep vein thrombosis Gastroesophageal reflux disease hypertension Hyperlipidemia history of degenerative joint disease history of prostate disorder History of sleep apnea history of recent sepsis secondary to discitis Urinary retention on Finch catheter History of DVT on the right arm History of lower leg cellulitis obstructive sleep apnea Nonsustained ventricular tachycardia history history of transient ischemic attack History of benign prostatic hypertrophy History of colonic polyps History of back surgery/degenerative joint disease history of coronary artery disease/stent history of nicotine dependence Obesity with a body mass index of 37.1 Recommendations and discussion: Recommend continue with current medications, management, and symptomatic treatme nt. Multiple medical consultations following. Patient is maintained on IV steroids along with IV antibiotics in the form of Cefepime and will continue at this time. PT/OT working with the patient and social work and case management following for the possibility of ECF or home care once discharged. Will repeat labs in monitor closely. Patient to continue with IV lasix and potentially switch to oral tomorrow. Will repeat labs. MRI showing no evidence of discitis at this time. Due to multiple complex medical issues prognosis is guarded. Further recommendations to follow. Possible discharge in 24-48 hours.
[2020-03-29 20:14] LABS: Glucose,Whole Blood 313 mg/dL (75-99)
[2020-03-29] MEDS: oxyCODONE-APAP 10-325MG 1 EACH TAB PO PRN (21:35)
[2020-03-29] MEDS: ATORVASTATIN 80 MG TAB PO SCH (21:35)
[2020-03-29] MEDS: INSULIN DETEMIR (LEVEMIR) 100 UNIT/ML SYR SQ SCH (21:36)
[2020-03-29] MEDS: FUROSEMIDE 10 MG/ML 2 ML VIAL IV SCH (21:36)
[2020-03-29] MEDS: PRAMIPEXOLE 1 MG TAB PO SCH (21:36)
[2020-03-29] MEDS: MELATONIN 3 MG TABLET PO PRN (22:58)
--- NOTE | 2020-03-29 23:35 | PN ---
PROGRESS NOTE DATE OF SERVICE: 03/29/2020 REASON FOR FOLLOWUP: Pneumonia and discitis. INTERVAL HISTORY: The patient is currently afebrile. The patient is breathing comfortably. The patient denies having any chest pain or shortness of breath. Minimal cough. No nausea, no vomiting, no abdominal pain or diarrhea. PHYSICAL EXAMINATION: Blood pressure is 160/80 with a pulse of 80, temperature 97.4. He is 97% on room air. General description is an elderly male lying in bed in no distress. RESPIRATORY SYSTEM: Unlabored breathing with decreased breath sounds at the base. No wheeze. HEART: S1, S2. Regular rate and rhythm. ABDOMEN: Soft. No tenderness. LABS: Hemoglobin is 9.3, white count 9.9, BUN of 81, creatinine 1.90. Blood culture has been negative. DIAGNOSTIC IMPRESSION AND PLAN: Patient admitted to hospital with fever concerning for pneumonia. This patient was also getting outpatient antibiotics for his lumbar discitis. The patient did have repeat MR lumbar spine, but no evidence of any discitis. The patient's fever responded to cefazolin, which will continue for now while waiting for his condition to stabilize and monitor his clinical course closely. Recheck his inflammatory markers tomorrow. MMODL / IJN: [id number] /
[2020-03-30 06:22] LABS: Glucose,Whole Blood 208 mg/dL (75-99)
[2020-03-30] MEDS: methylPREDNISolone SOD SUCCI 125 MG/2 ML VIAL IV SCH ×4 (06:30→22:54)
[2020-03-30] MEDS: PANTOPRAZOLE 40 MG TABLET PO SCH (06:31)
[2020-03-30] MEDS: INSULIN ASPART (NovoLOG) 100 UNIT/ML VIAL SQ SCH ×4 (06:31→20:44)
[2020-03-30] MEDS: IPRATROPIUM-ALBUTEROL 3 ML NEB INHALATION SCH ×4 (08:51→19:22)
[2020-03-30] MEDS: BUDESONIDE 1 MG/2 ML NEBU INHALATION SCH ×2 (08:51→19:22)
[2020-03-30] MEDS: FORMOTEROL FUMARATE 20 MCG/2 ML NEBU INHALATION SCH ×2 (08:51→19:22)
[2020-03-30 09:29] LABS: C Reactive Protein 54.3 mg/L (<10.0); Calcium 8.7 mg/dL (8.4-10.2)
[2020-03-30 09:30] LABS: Potassium 4.3 mmol/L (3.5-5.1)
[2020-03-30] MEDS: hydrALAZINE HCL 50 MG TAB PO SCH ×3 (09:33→22:54)
[2020-03-30] MEDS: TAMSULOSIN 0.4 MG CAP.ER.24H PO SCH (09:33)
[2020-03-30] MEDS: APIXABAN 5 MG TAB PO SCH ×2 (09:33→20:43)
[2020-03-30] MEDS: ASPIRIN 81 MG PO SCH (09:34)
[2020-03-30] MEDS: FUROSEMIDE 10 MG/ML 2 ML VIAL IV SCH ×2 (09:34→20:44)
[2020-03-30] MEDS: QUEtiapine 25 MG TAB PO SCH ×2 (09:34→20:43)
[2020-03-30] MEDS: COLCHICINE 0.6 MG EACH PO SCH (09:34)
[2020-03-30] MEDS: MAGNESIUM OXIDE 400 MG TAB PO SCH (09:34)
[2020-03-30] MEDS: CEFEPIME 2 GM in SODIUM CHLORIDE 0.9% 100 ML IVPB SCH ×2 (09:36→20:44)
[2020-03-30] MEDS: oxyCODONE-APAP 10-325MG 1 EACH TAB PO PRN ×2 (09:41→20:43)
[2020-03-30] MEDS: METOPROLOL TARTRATE 50 MG TAB PO SCH ×2 (10:42→11:01)
--- NOTE | 2020-03-30 10:59 | P.CNOR ---
History of Present Illness - HPI Consult date: 03/30/20 Consult reason: low back pain History of present illness: Patient is seen and examined at bedside. He is sitting at the bedside and breathing well on room air. He says he is feeling comfortable and has been ambu latory in his room. He has histories of chronic neck and low back pain. He says that the pain has been significant for him. He has had treatment in the past at our office [facility] with Dr. Browne. He has had injections in the past and his lumbar spine and cervical spine. He has been in the hospital over the past few days in regards to his pneumonia and cardiac issues, and possible sepsis. He's been worked up in regards to his sepsis and obtained a new MRI of his lumbar spine to rule out discitis. The MRI does not show any evidence of discitis but does show some significant degenerative changes particularly at L4 5 and L5-S1 with some stenosis. We have seen the patient with past regards to his cervical spine and his lumbar spine however he is not a candidate for surgical intervention given his significant medical issues. Apparently the patient has been making progress here in the hospital and he is hoping to go home today if he is cleared with medicine service. He denies new changes in his upper or lower extremity. He says he has some radicular symptoms at his bilateral upper extremities and his bilateral lower extremity. He denies any new weakness or progressive neurologic change. Denies any changes in bowel bladder function. Review of Systems As stated per HPI. He denies any changes upper and lower extremities. He has chronic neck pain and low back pain. He has a long history of vague radicular symptoms at his upper and lower extremities without a new change. He's been worked up and treated in regards to his breathing status pneumonia and pulmonary edema. He has been making progress with medical management over the past few days here in Hospital Past Medical History Past Medical History: Coronary Artery Disease (CAD), Chest Pain / Angina, Heart Failure, COPD, Deep Vein Thrombosis (DVT), GERD/Reflux, Hyperlipidemia, Hypertension, Osteoarthritis (OA), Pneumonia, Prostate Disorder, Respiratory Disorder, Sleep Apnea/CPAP/BIPAP Additional Past Medical History / Comment(s): 11/2019 severe sepsis secondary to discitis and currently receiving IV antibiotics thru picc line, past urinary retention with granados during sepsis, pt states he has kidney problem and is to follow with cloth opener hand, DVT R arm/sepsis d/t bilateral lower leg cellulitis, venous insufficiency/lower leg/pedal edema, spondylolsis, cervical and low back pain, DDD, chronic respiratory failure, CALLI with Cpap/O2 at 4L/NC at HS, nonsustained vtach, TIAs, small vessel disease, IDDM type II, neuropathy, BPH, diverticular disease, colon polyps-benign, sinus problems, seasonal allergies. 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 History of Any Multi-Drug Resistant Organisms: None Reported Past Surgical History: Back Surgery, Heart Catheterization With Stent, Joint Replacement, Orthopedic Surgery Additional Past Surgical History / Comment(s): Bilateral knee arthroscopies, total L knee arthroplasty, R total shoulder arthroplasty, L hand injury with repair, low back surgery, PCI with 3 stents, colonoscopies/polypectomies, lumbar epidural injections, bilateral cataract removals/lens implants. Past Anesthesia/Blood Transfusion Reactions: No Reported Reaction Additional Past Anesthesia/Blood Transfusion Reaction / Comm: STATES "HAD A HARD TIME WITH BREATHING POST OP" Date of Last Stent Placement:: 2009 Past Psychological History: No Psychological Hx Reported Additional Psychological History / Comment(s): Pt resides with his spouse. He uses no assistive device. He drives. Pt served in the [employer]. Smoking Status: Former smoker Past Alcohol Use History: None Reported Additional Past Alcohol Use History / Comment(s): QUIT SMOKING IN 2009, STARTED 1962, SMOKED 2 PPD Past Drug Use History: None Reported - Past Family History Father Family Medical History: CVA/TIA, Hyperlipidemia, Hypertension Mother Family Medical History: Hypertension Medications and Allergies Home Medications Medication Instructions Recorded Confirmed Type Nitroglycerin Sl Tabs [Nitrostat] 0.4 mg SL Q5M PRN 03/09/14 03/23/20 History Atorvastatin [Lipitor] 80 mg PO HS 05/08/15 03/23/20 History Fluticasone/Vilanterol [Breo 1 puff INHALATION RT-HS 03/12/18 03/23/20 History Ellipta 100-25 Mcg Inhaler] Ipratropium-Albuterol Nebulize 3 ml INHALATION RT-QID PRN 09/02/19 03/23/20 History [Duoneb 0.5 mg-3 mg/3 ml Soln] Pramipexole Di-HCl [Mirapex] 1 mg PO HS 09/02/19 03/23/20 History Apixaban [Eliquis] 5 mg PO Q12H 11/01/19 03/23/20 History Ketoconazole [Ketoconazole 2% 1 applic TOPICAL Q72H 11/01/19 03/23/20 History Shampoo] QUEtiapine [SEROquel] 25 mg PO HS tab 11/17/19 03/23/20 Rx Omeprazole 20 mg PO AC-BRKFST 11/23/19 03/23/20 History Tamsulosin [Flomax] 0.4 mg PO DAILY 11/23/19 03/23/20 History Aspirin EC [Ecotrin Low Dose] 81 mg PO DAILY 12/09/19 03/23/20 History Furosemide [Lasix] 40 mg PO DAILY #0 12/17/19 03/23/20 Rx Metoprolol Tartrate [Lopressor] 50 mg PO BID #60 tab 12/17/19 03/23/20 Rx Pregabalin [Lyrica] 75 mg PO BID #60 cap 12/17/19 03/23/20 Rx ceFAZolin [Kefzol] 2 gm IVP Q8HR #126 vial 12/17/19 03/23/20 Rx Colchicine 0.6 mg PO BID 03/23/20 03/23/20 History Furosemide [Lasix] 20 mg PO HS 03/23/20 03/23/20 History Magnesium 250 mg PO DAILY 03/23/20 03/23/20 History Spironolactone [Aldactone] 25 mg PO DAILY 03/23/20 03/23/20 History hydrALAZINE HCL 50 mg PO Q8HR 03/23/20 03/23/20 History oxyCODONE-APAP 10-325MG [Percocet 1 tab PO QID PRN 03/23/20 03/23/20 History 10-325 mg] predniSONE 10 mg PO DAILY 03/23/20 03/23/20 History Insulin Glargine [Lantus] 30 unit SQ HS 03/25/20 03/25/20 History Allergies Allergy/AdvReac Type Severity Reaction Status Date / Time acetaminophen [From Tylenol] AdvReac kidney/liver Verified 03/23/20 14:43 issues prednisone AdvReac Extreme Verified 03/23/20 14:43 aggression with high doses Physical Examination Osteopathic Statement: *. No significant issues noted on an osteopathic struc tural exam other than those noted in the History and Physical/Consult. - L Spine: dermatomal strength & reflexes bilateral Strength: hip flexion: 5/5 (His lower extremities has good hip flexion the extension dorsal flexion plantarflexion is feet. He has some peripheral edema. There is no clonus there is no hyperreflexia) Strength: knee flexion: 5/5 (His thighs and calves are soft nontender. His upper extremities have full active and passive range of motion. Negative Sisi's no hyperreflexia) Results - Labs Labs: Abnormal Lab Results - Last 24 Hours (Table) 03/29/20 03/29/20 03/29/20 Range/Units 11:58 17:04 20:13 Chloride (98-107) mmol/L Carbon Dioxide (22-30) mmol/L BUN (9-20) mg/dL Creatinine (0.66-1.25) mg/dL Glucose (74-99) mg/dL POC Glucose (mg/dL) 314 H 288 H 313 H (75-99) mg/dL C-Reactive Protein (<10.0) mg/L 03/30/20 03/30/20 Range/Units 06:21 07:52 Chloride 108 H (98-107) mmol/L Carbon Dioxide 18 L (22-30) mmol/L BUN 85 H (9-20) mg/dL Creatinine 1.60 H (0.66-1.25) mg/dL Glucose 184 H (74-99) mg/dL POC Glucose (mg/dL) 208 H (75-99) mg/dL C-Reactive Protein 54.3 H (<10.0) mg/L Microbiology - Last 24 Hours (Table) 03/23/20 11:59 Blood Culture - Final Blood No Growth after 144 hours 03/23/20 11:59 Blood Culture - Final Blood No Growth after 144 hours H & H 03/23/20 03/24/20 03/25/20 Range/Units 11:59 06:50 06:51 Hgb 11.5 L 9.9 L D 9.5 L (13.0-17.5) gm/dL Hct 37.0 L 31.2 L 31.2 L (39.0-53.0) % 03/26/20 03/27/20 03/28/20 Range/Units 05:58 06:40 07:34 Hgb 10.4 L 9.9 L 9.7 L (13.0-17.5) gm/dL Hct 34.7 L 31.8 L 30.4 L (39.0-53.0) % 03/29/20 Range/Units 07:10 Hgb 9.3 L (13.0-17.5) gm/dL Hct 31.0 L (39.0-53.0) % Coagulation 03/23/20 Range/Units 13:00 INR 1.1 (<1.2) Result Diagrams: 03/29/20 07:10 03/30/20 07:52 - Diagnostic results Lumbar MRI with/without contrast: report reviewed, image reviewed (Images of his lumbar spine are reviewed. He has disc degeneration L4 5 and L5-S1 with a subtle listhesis L4 5. There is diffuse disc protrusion with foraminal stenosis L4 5 and L5-S1. There is no evidence of infection or abscess. I do not see any evidence for discitis) Assessment and Plan Assessment: Chronic low back pain and chronic neck pain Degenerative disc disease L4 5 and L5-S1 with foraminal stenosis Recent history of severe sepsis No evidence of infection at the lumbar spine No progressive neurologic change at the upper and lower extremities Multiple cardiac and pulmonary and renal medical issues We are counseled in regards to disc herniation and the patient's low back. He was having MRI in regards to possibility of discitis but there is no evidence of discitis at his lumbar spine. He does have some degenerative changes at his lumbar spine and is known to have significant degenerative changes cervical spine as well. He is not having acute change with these but does have chronic symptoms and pain. We do not have any plans for surgical intervention for him. The patient has multiple medical issues which would preclude him from undergoing any surgical procedure for his cervical or lumbar spine and it would be difficult to predict a favorable outcome if he were to pursue surgical intervention at his spine. I recommend that he continue with conservative treatment. He had been taking regular occasions with pain management and we will give him a new referral to continue with pain management here here at [facility] pain management service for continued evaluation management and pain control. From a spine surgery standpoint I think that we can see him on an as-needed basis. If he were to require surgical intervention given his multiple medical issues, We may consider referral from outside tertiary facility
[2020-03-30 12:22] LABS: Glucose,Whole Blood 206 mg/dL (75-99)
--- NOTE | 2020-03-30 12:29 | P.PN ---
Subjective Patient is seen in follow-up for acute kidney injury. Renal function is improved. Blood pressure stable. Good urine output. No chest pain or shortness of breath. Oral intake is good. Edema improving the diuresis. Vital signs are stable. General: The patient appeared well nourished and normally developed. HEENT: Head exam is unremarkable. Neck is without jugular venous distension. LUNGS: Breath sounds decreased. HEART: Rate and Rhythm are regular. ABDOMEN: Soft, nontender. EXTREMITITES: 1+ edema. Objective - Vital Signs Vital signs: Vital Signs Temp 97.7 F 03/30/20 08:00 Pulse 77 03/30/20 11:52 Resp 20 03/30/20 08:00 BP 165/78 03/30/20 08:00 Pulse Ox 97 03/30/20 08:52 Intake & Output 03/29/20 03/30/20 03/30/20 18:59 06:59 18:59 Intake Total 1360 540 240 Balance 1360 540 240 Weight 106.5 kg 94.5 kg Intake: Intake, IV Titration 100 Amount Cefepime 2 gm In Sodium 100 Chloride 0.9% 100 ml @ 25 mls/hr IVPB Q12HR [facility] Rx #:[id number] Oral 1260 540 240 Other: Voiding Method Toilet Toilet # Voids 2 - Labs CBC & Chem 7: 03/29/20 07:10 03/30/20 07:52 Labs: Abnormal Lab Results - Last 24 Hours (Table) 03/29/20 03/29/20 03/30/20 Range/Units 17:04 20:13 06:21 ESR (0-15) mm/hr Chloride (98-107) mmol/L Carbon Dioxide (22-30) mmol/L BUN (9-20) mg/dL Creatinine (0.66-1.25) mg/dL Glucose (74-99) mg/dL POC Glucose (mg/dL) 288 H 313 H 208 H (75-99) mg/dL C-Reactive Protein (<10.0) mg/L 03/30/20 03/30/20 03/30/20 Range/Units 07:52 07:52 12:20 ESR 82 H (0-15) mm/hr Chloride 108 H (98-107) mmol/L Carbon Dioxide 18 L (22-30) mmol/L BUN 85 H (9-20) mg/dL Creatinine 1.60 H (0.66-1.25) mg/dL Glucose 184 H (74-99) mg/dL POC Glucose (mg/dL) 206 H (75-99) mg/dL C-Reactive Protein 54.3 H (<10.0) mg/L Microbiology - Last 24 Hours (Table) 03/23/20 11:59 Blood Culture - Final Blood No Growth after 144 hours 03/23/20 11:59 Blood Culture - Final Blood No Growth after 144 hours Assessment and Plan Plan: Assessment: 1. Acute kidney injury secondary to ATN secondary to contrast-induced acute kidney injury and further worsened with the use of nonsteroidals and diuretics. Baseline creatinine near 1 and is down to 1.6 today. UA benign. 2. Urinary retention status post catheterization this admission. On Flomax. 3. Lumbar discitis maintained on antibiotics. Had MRI this morning which reveals no evidence of discitis. 4. Mild hyperkalemia secondary to acute kidney injury, Motrin and hyperglycemia. Resolved. 5. Diabetes mellitus. 6. Lower extremity edema. Improving with diuresis. 7. Metabolic acidosis secondary to IV fluids and acute kidney injury. 8. Anemia. Rule out iron deficiency. Plan: Monitor bladder scans closely. To insert Finch catheter if over 300 mL of urine present. Maintain Lasix 20 mg IV twice daily - transition to oral Lasix 20 mg orally 3 times daily upon discharge which was his dose prior to admission. Continue to monitor renal function and urine output. Check iron studies. Add oral bicarb. Patient was advised to monitor his weight closely at home and called gave for the 2-3 pounds or edema worsens. He was also advised to follow a low-salt diet as well as fluid restriction of 40 oz or less per day. Repeat BMP and magnesium level 3-4 days postdischarge. Follow up outpatient in 7-10 days.
[2020-03-30] MEDS: FOLIC ACID 1 MG TAB PO SCH (12:59)
[2020-03-30] MEDS: MULTIVITAMINS, THERA 1 EACH TAB PO SCH (12:59)
[2020-03-30] MEDS: THIAMINE 100 MG TAB PO SCH (12:59)
--- NOTE | 2020-03-30 13:52 | P.PN ---
Subjective Progress Note Date: 03/30/19 The patient was seen at bedside and stated he is doing well. Denies new weakness, numbness or visual disturbance. Patient stated that he does have minimal lower back pain and he said that it's just localized denies any radiation of the to the back. Denies any urinary or bladder incontinence. Denies any numbness or weakness of the lower extremities associate with this. He said that he had this lower back pain for a while. MRI Lumbar spine is reported as no suspicious change to suggest acute discitis. Degenerative changes and chronic appearing changes including disc bulging facet hypertrophy and disc herniation discussed above. Broad right paracentral disc herniation at L5-S1 has nerve root impingement S1 within the foramen. Correlate with right S1 radicular symptoms. Right paracentral and lateral disc herniation L4/5 as well as disc bulging into the foramen. Correlate with the right L5 radicular symptoms. Left L5 radicular symptoms may present as well due to the severe bilateral foraminal narrowing at the L4-L5 level. Objective - Vital Signs Vital signs: Vital Signs Temp 97.7 F 03/30/20 08:00 Pulse 77 03/30/20 11:52 Resp 20 03/30/20 08:00 BP 165/78 03/30/20 08:00 Pulse Ox 97 03/30/20 08:52 Intake & Output 03/29/20 03/30/20 03/30/20 18:59 06:59 18:59 Intake Total 1360 540 240 Balance 1360 540 240 Weight 106.5 kg 94.5 kg Intake: Intake, IV Titration 100 Amount Cefepime 2 gm In Sodium 100 Chloride 0.9% 100 ml @ 25 mls/hr IVPB Q12HR [facility] Rx #:[id number] Oral 1260 540 240 Other: Voiding Method Toilet Toilet # Voids 2 - Exam GENERAL: The patient is lying in bed and is not in acute distress. Patient was sitting at bedside of chair. NEUROLOGICAL: Higher mental function: The patient is awake, alert, oriented to self, place and time. Patient is following commands. No aphasia and no neglect. Cranial nerves: The pupils are round, equal and reactive to light and accommodation. Visual kimball are full to confrontation throughout. Extraocular movement is intact no nystagmus is noted. Facial sensation is normal to touch throughout. The facial strength is normal throughout. Hearing is normal bilaterally to hand rub. Tongue is midline and moved [id number] without any difficulty. No dysarthria is noted. Shoulder shrug is normal bilaterally. Motor: Gait is normal with normal arm swings. The strength is right large toe flexion is 5-/5 otherwise 5 over 5 throughout. Normal tone and bulk. Cerebellum: Normal finger to nose bilaterally. Sensation: Sensation is normal to touch throughout. Reflexes (right/left): 2+ throughout. Plantars are downgoing bilaterally. - Labs CBC & Chem 7: 03/29/20 07:10 03/30/20 07:52 Labs: Abnormal Lab Results - Last 24 Hours (Table) 03/29/20 03/29/20 03/30/20 Range/Units 17:04 20:13 06:21 ESR (0-15) mm/hr Chloride (98-107) mmol/L Carbon Dioxide (22-30) mmol/L BUN (9-20) mg/dL Creatinine (0.66-1.25) mg/dL Glucose (74-99) mg/dL POC Glucose (mg/dL) 288 H 313 H 208 H (75-99) mg/dL C-Reactive Protein (<10.0) mg/L 03/30/20 03/30/20 Range/Units 07:52 07:52 ESR 82 H (0-15) mm/hr Chloride 108 H (98-107) mmol/L Carbon Dioxide 18 L (22-30) mmol/L BUN 85 H (9-20) mg/dL Creatinine 1.60 H (0.66-1.25) mg/dL Glucose 184 H (74-99) mg/dL POC Glucose (mg/dL) (75-99) mg/dL C-Reactive Protein 54.3 H (<10.0) mg/L Microbiology - Last 24 Hours (Table) 03/23/20 11:59 Blood Culture - Final Blood No Growth after 144 hours 03/23/20 11:59 Blood Culture - Final Blood No Growth after 144 hours Assessment and Plan Assessment: Altered mental status likely due to underlying infection (pneumonia per ID) and component of toxic-metabolic encephalopathy (EMEKA) and medication (opiates)---resolved Spine discitis/Osteomyelitis lumbar spine Lumbosacral spondylosis with lumbosacral radiculopathy (on exam seem right S1). 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 Possible underlying diabetic neuropathy. Acute kidney insufficiency Diabetes mellitus COPD History of Chronic hypoxic respiratory failure History of Coronary artery disease status post stent Diastolic congestive heart failure Hypertension Hyperlipidemia Plan: EEG on 03/27/2020: Abnormal routine EEG. The back was slowing suggestive of mild to moderate encephalopathy of unspecified etiology. There are no focal slowing, perform discharges or seizure on the EEG. As a result all not start the patient on the antiepileptic drugs. Infection disease is on board and they stated that the patient likely has pneumonia. They also mentioned that the patient the history of discitis and was on all patient on outpatient Cefazolin and vancomycin but the cultures are negative for resistant pathogen. As a result vancomycin the will be discontinued. And the as a result the patient is being covered with cefepime and Levaquin. Please avoid opiate/narcotics or any sedative. I spoke with Dr. Yap (I.Ashleigh) regarding the lumbar puncture if unknown etiology of fever, but the he doesn't feel it's needed since the patient's mentation is improved and and he denies of any headaches or vomiting. An element agreement the patient's mentation is normal currently. Orthopedic team evaluated him and they stated no surgical intervention is time. I recommended the patient gets the EMG with nerve conduction study of bilateral lower extremity as an outpatient. The patient was notified regarding his mixed connective tissue disease and discitis/osteomyelitis that he needs to follow up at [facility] with hoop punch and coiler operator/neurologist as outpatient within 1-2 weeks. The plan was discussed with the patient and the patient's nurse. There are no further neurological workup. Neurology will sign off. Please reconsult if needed. Niraj Neal M.D. Neuro-hospitalist Time with Patient: Less than 30
--- NOTE | 2020-03-30 15:32 | P.PN ---
Subjective Progress Note Date: 03/30/20 This is a 70-year-old male who was recently admitted with shortness of breath and cough and pneumonia with multiple complex medical issues including congestive heart failure and acute on chronic renal failure and is being closely monitored. Multiple medical consultations following. Patient is maintained on IV steroids and will continue at this time. Physical therapy following and patient was able to work with them today. Patient is maintained on IV antibiotics in the form of cefepime and cultures have remained negative. Infectious disease is following. Case management and social work also following with the possibility of ECF once discharged. No chest pain noted. Patient is afebrile. Will continue to monitor closely. 03/29/2020 Patient is seen and evaluated in follow-up currently undergoing MRI and report is pending. Patient is maintained on IV steroids and will continue at this time . Patient was up with standby assist although continues to be unsteady requiring walker and assistance. Multiple medical consultations following. Patient is also continued on IV antibiotics and infectious disease following closely. Patient had been receiving IV antibiotics outpatient. Patient to co ntinue with IV lasix as he has continued lower extremity swelling noted on exam. 03/30/2020 Patient is seen in follow-up and currently maintained on IV steroids along with IV antibiotics. Multiple medical consultations following. Patient also continues on IV Lasix 20 mg twice daily and will continue. Abdomen is stable at 1.60, potassium is 4.3, sodium is 132. Blood sugars continue to be elevated and being closely monitored. Patient is maintained on sliding scale along with long-acting and will continue. Patient's mentation has improved and states he is feeling better today. Will discuss with infectious disease about continuing IV antibiotic therapy upon discharge or patient will not require further antibiotics. Patient does have a PICC line. Patient is being followed by PT/OT therapy along with case management and social work and patient will likely be going home with home care with his . Review of systems: Constitutional: No reports of fatigue, fever, or chills Cardiovascular: No reports of chest pain or palpitations Respiratory: No reports of shortness of breath or cough GI: No reports of nausea, vomiting, or diarrhea : No reports of dysuria or retention Neurovascular: No reports of weakness or numbness All medications have been reviewed Active Medications Acetaminophen (Acetaminophen Tab 325 Mg Tab) 325 mg PO Q4HR PRN PRN Reason: Fever and/ or Pain Albuterol/Ipratropium (Ipratropium-Albuterol 3 Ml Neb) 3 ml INHALATION RT-QID PRN PRN Reason: Shortness Of Breath Last Admin: 03/26/20 23:54 Dose: 3 ml Documented by: Albuterol/Ipratropium (Ipratropium-Albuterol 3 Ml Neb) 3 ml INHALATION RT-QID [facility] Last Admin: 03/30/20 11:41 Dose: 3 ml Documented by: Apixaban (Apixaban 5 Mg Tab) 5 mg PO Q12H [facility] Last Admin: 03/30/20 09:33 Dose: 5 mg Documented by: Aspirin (Aspirin 81 Mg) 81 mg PO DAILY [facility] Last Admin: 03/30/20 09:34 Dose: 81 mg Documented by: Atorvastatin Calcium (Atorvastatin 80 Mg Tab) 80 mg PO HS [facility] Last Admin: 03/29/20 21:35 Dose: 80 mg Documented by: Budesonide (Budesonide 1 Mg/2 Ml Nebu) 1 mg INHALATION RT-BID [facility] Last Admin: 03/30/20 08:51 Dose: 1 mg Documented by: Colchicine (Colchicine 0.6 Mg Each) 0.6 mg PO DAILY [facility] Last Admin: 03/30/20 09:34 Dose: 0.6 mg Documented by: Folic Acid (Folic Acid 1 Mg Tab) 1 mg PO DAILY@1200 [facility] Last Admin: 03/30/20 12:59 Dose: 1 mg Documented by: Formoterol Fumarate (Formoterol Fumarate 20 Mcg/2 Ml Nebu) 20 mcg INHALATION RT-BID [facility] Last Admin: 03/30/20 08:51 Dose: 20 mcg Documented by: Furosemide (Furosemide 10 Mg/Ml 2 Ml Vial) 20 mg IV Q12HR [facility] Last Admin: 03/30/20 09:34 Dose: 20 mg Documented by: Hydralazine HCl (Hydralazine Hcl 50 Mg Tab) 50 mg PO Q8HR [facility] Last Admin: 03/30/20 09:33 Dose: 50 mg Documented by: Cefepime HCl 2 gm/ Sodium (Chloride) 100 mls @ 25 mls/hr IVPB Q12HR [facility] Last Admin: 03/30/20 09:36 Dose: 25 mls/hr Documented by: Insulin Aspart (Insulin Aspart (Novolog) 100 Unit/Ml Vial) 0 unit SQ ACHS [facility]; Protocol Last Admin: 03/30/20 13:00 Dose: 4 unit Documented by: Insulin Detemir (Insulin Detemir (Levemir) 100 Unit/Ml Syr) 30 unit SQ HS [facility] Last Admin: 03/29/20 21:36 Dose: 30 unit Documented by: Ketoconazole (Ketoconazole 2% Shampoo 1 Applic/Ml) 1 applic TOPICAL Q72H [facility] Last Admin: 03/28/20 10:41 Dose: Not Given Documented by: Magnesium Oxide (Magnesium Oxide 400 Mg Tab) 400 mg PO DAILY [facility] Last Admin: 03/30/20 09:34 Dose: 400 mg Documented by: Melatonin (Melatonin 3 Mg Tablet) 3 mg PO DAILY PRN PRN Reason: Insomnia Last Admin: 03/29/20 22:58 Dose: 3 mg Documented by: Methylprednisolone Sodium Succinate (Methylprednisolone Sod Succi 125 Mg/2 Ml Vial) 60 mg IV Q6HR [facility] Last Admin: 03/30/20 13:00 Dose: 60 mg Documented by: Metoprolol Tartrate (Metoprolol Tartrate 50 Mg Tab) 50 mg PO DAILY [facility] Last Admin: 03/30/20 10:42 Dose: 50 mg Documented by: Metoprolol Tartrate (Metoprolol Tartrate 25 Mg Tab) 25 mg PO [facility] Miscellaneous Information (Pneumonia Protocol Utilized 1 Each Misc) 1 each PO ONCE PRN PRN Reason: Per Protocol Miscellaneous Information (Magnesium Replacement Protocol 1 Each Misc) 1 each MISCELLANE DAILY PRN; Protocol PRN Reason: Per Protocol Miscellaneous Information (Potassium Replacement Protocol 1 Each Misc) 1 each MISCELLANE DAILY PRN; Protocol PRN Reason: Per Protocol Multivitamins (Multivitamins, Thera 1 Each Tab) 1 each PO DAILY@1200 [facility] Last Admin: 03/30/20 12:59 Dose: 1 each Documented by: Nitroglycerin (Nitroglycerin Sl Tabs 0.4 Mg Tab) 0.4 mg SUBLINGUAL Q5M PRN PRN Reason: Chest Pain Oxycodone/Acetaminophen (Oxycodone-Apap 10-325mg 1 Each Tab) 1 each PO Q8H PRN PRN Reason: Pain Last Admin: 03/30/20 09:41 Dose: 1 each Documented by: Pantoprazole Sodium (Pantoprazole 40 Mg Tablet) 40 mg PO AC-BRKFST [facility] Last Admin: 03/30/20 06:31 Dose: 40 mg Documented by: Pramipexole Dihydrochloride (Pramipexole 1 Mg Tab) 1 mg PO HS [facility] Last Admin: 03/29/20 21:36 Dose: 1 mg Documented by: Quetiapine Fumarate (Quetiapine 25 Mg Tab) 25 mg PO BID [facility] Last Admin: 03/30/20 09:34 Dose: 25 mg Documented by: Sodium Bicarbonate (Sodium Bicarbonate Tab 650 Mg Tab) 650 mg PO BID [facility] Tamsulosin HCl (Tamsulosin 0.4 Mg Cap.Er.24h) 0.4 mg PO DAILY [facility] Last Admin: 03/30/20 09:33 Dose: 0.4 mg Documented by: Thiamine HCl (Thiamine 100 Mg Tab) 100 mg PO DAILY@1200 [facility] Last Admin: 03/30/20 12:59 Dose: 100 mg Documented by: Objective - Vital Signs Vital signs: Vital Signs Temp 97.7 F 03/30/20 08:00 Pulse 70 03/30/20 12:00 Resp 18 03/30/20 12:00 BP 159/80 03/30/20 12:00 Pulse Ox 97 03/30/20 12:00 Intake & Output 03/29/20 03/30/20 03/30/20 18:59 06:59 18:59 Intake Total 1360 540 780 Balance 1360 540 780 Weight 106.5 kg 94.5 kg Intake: Intake, IV Titration 100 Amount Cefepime 2 gm In Sodium 100 Chloride 0.9% 100 ml @ 25 mls/hr IVPB Q12HR [facility] Rx #:[id number] Oral 1260 540 780 Other: Voiding Method Toilet Toilet # Voids 2 - Exam Gen: This is a 70-year-old male awake, alert and oriented 2, well-developed, well-nourished, obese. Temp is 97.7F, pulse is 70, respirations are 18, blood pressure is 159/80, oxygen is 97% room air HEENT: Head is atraumatic, normocephalic. Pupils equal, round. Sclerae is anicteric. NECK: Supple. No JVD. No lymphadenopathy. No thyromegaly. LUNGS: Diminished breath sounds bilaterally with a few scattered rhonchi noted. No intercostal retractions. HEART: S1, S2 are muffled ABDOMEN: Soft. Bowel sounds are present. No masses. No tenderness. EXTREMITIES: No pedal edema. No calf tenderness. b/l lower extremity edema noted NEUROLOGICAL: Patient is awake, alert and oriented x2. No focal deficits, diffusely weak - Labs CBC & Chem 7: 03/29/20 07:10 03/30/20 07:52 Labs: Abnormal Lab Results - Last 24 Hours (Table) 03/29/20 03/29/20 03/30/20 Range/Units 17:04 20:13 06:21 ESR (0-15) mm/hr Chloride (98-107) mmol/L Carbon Dioxide (22-30) mmol/L BUN (9-20) mg/dL Creatinine (0.66-1.25) mg/dL Glucose (74-99) mg/dL POC Glucose (mg/dL) 288 H 313 H 208 H (75-99) mg/dL C-Reactive Protein (<10.0) mg/L 03/30/20 03/30/20 03/30/20 Range/Units 07:52 07:52 12:20 ESR 82 H (0-15) mm/hr Chloride 108 H (98-107) mmol/L Carbon Dioxide 18 L (22-30) mmol/L BUN 85 H (9-20) mg/dL Creatinine 1.60 H (0.66-1.25) mg/dL Glucose 184 H (74-99) mg/dL POC Glucose (mg/dL) 206 H (75-99) mg/dL C-Reactive Protein 54.3 H (<10.0) mg/L Microbiology - Last 24 Hours (Table) 03/23/20 11:59 Blood Culture - Final Blood No Growth after 144 hours 03/23/20 11:59 Blood Culture - Final Blood No Growth after 144 hours Assessment and Plan Assessment: Shortness of breath and cough for possible bilateral pneumonia with acute hypoxic respiratory failure, right more than left with hypoxic hypercarbic respiratory failure Congestive heart failure acute exacerbation with acute on chronic diastolic dysfunction 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 Acute on chronic renal failure with acute tubular necrosis Hyperkalemia secondary to renal failure Elevated BNP Elevated plasma lactic acid, possible sepsis present on admission Change in mental status acute about encephalopathy, multifactorial Hypomagnesemia Elevated AST increased LDH and CRP Increased white blood count anemia, normocytic thrombocytopenia History of recent discitis with alphahemolytic streptococci in the blood culture On PICC line on the left arm with IV antibiotics History of coronary artery disease history of congestive heart failure, ejection fraction unknown History of chronic obstructive pulmonary disease History of deep vein thrombosis Gastroesophageal reflux disease hypertension Hyperlipidemia history of degenerative joint disease history of prostate disorder History of sleep apnea history of recent sepsis secondary to discitis Urinary retention on Finch catheter History of DVT on the right arm History of lower leg cellulitis obstructive sleep apnea Nonsustained ventricular tachycardia history history of transient ischemic attack History of benign prostatic hypertrophy History of colonic polyps History of back surgery/degenerative joint disease history of coronary artery disease/stent history of nicotine dependence Obesity with a body mass index of 37.1 Recommendations and discussion: Recommend continue with current medications, management, and symptomatic treatment. Multiple medical consultations following. Patient is maintained on IV steroids along with IV antibiotics in the form of Cefepime and will continue at this time. Will discuss with infectious disease about continuing IV antibiotic therapy in the outpatient setting. Patient does have a PICC line. PT/OT following the patient and social work and case management following for discharge planning needs with home care once discharged. Patient to continue with IV lasix and potentially switch to oral tomorrow. Due to multiple complex medical issues prognosis is guarded. Further recommendations to follow. Po ssible discharge in 24-48 hours.
[2020-03-30 17:08] LABS: Glucose,Whole Blood 265 mg/dL (75-99)
[2020-03-30] MEDS: SODIUM BICARBONATE TAB 650 MG TAB PO SCH ×2 (17:35→22:54)
[2020-03-30 19:39] LABS: Glucose,Whole Blood 278 mg/dL (75-99)
[2020-03-30] MEDS: MELATONIN 3 MG TABLET PO PRN (20:43)
[2020-03-30] MEDS: PRAMIPEXOLE 1 MG TAB PO SCH (20:43)
[2020-03-30] MEDS: ATORVASTATIN 80 MG TAB PO SCH (20:43)
[2020-03-30] MEDS: INSULIN DETEMIR (LEVEMIR) 100 UNIT/ML SYR SQ SCH (20:45)
[2020-03-30] MEDS ORDERED: METOPROLOL TARTRATE 25 MG TAB PO SCH (21:00)
[2020-03-30 21:06] LABS: % Iron Saturation 8.62 (15.00-50.00); Ferritin 808.3 ng/mL (22.0-322.0)
--- NOTE | 2020-03-30 22:47 | PN ---
PROGRESS NOTE DATE OF SERVICE: 03/30/2020 REASON FOR FOLLOWUP: Pneumonia and discitis. INTERVAL HISTORY: The patient is currently afebrile. The patient is breathing comfortably. The patient denies having any chest pain or shortness of breath. Occasional cough. No nausea, vomiting, abdominal pain, no diarrhea. PHYSICAL EXAMINATION: Blood pressure 135/86, pulse of 70, temperature 97.7. He is 96% on room air. General description is an elderly male up in the chair in no distress. Respiratory system: Unlabored breathing, decreased breath sounds at the bases, no wheeze. Heart S1, S2. Regular rate and rhythm. Abdomen soft, no tenderness. LABS: BUN of 85, creatinine 1.62. with CRP 54.3. Blood culture has been negative. MRI of the lumbosacral spine did not show any evidence of discitis. DIAGNOSTIC IMPRESSION AND PLAN: 1. Patient admitted to the hospital with fever. Concern for possible pneumonia. This patient had overall improvement on cefepime to continue another 24 hours to finish his course of therapy. 2. Patient with lumbar diskitis for the patient be continued on cefazolin outpatient setting to finish a 6 week course of therapy and close outpatient followup. MMODL / IJN: [id number] / MTDD
[2020-03-31 05:48] VITALS: RESP 18
[2020-03-31 06:14] LABS: Glucose,Whole Blood 156 mg/dL (75-99)
[2020-03-31] MEDS: PANTOPRAZOLE 40 MG TABLET PO SCH (06:50)
[2020-03-31] MEDS: methylPREDNISolone SOD SUCCI 125 MG/2 ML VIAL IV SCH ×2 (06:50→12:07)
[2020-03-31] MEDS: INSULIN ASPART (NovoLOG) 100 UNIT/ML VIAL SQ SCH ×2 (06:50→12:07)
[2020-03-31 08:15] VITALS: TEMP 97.7
[2020-03-31] MEDS: BUDESONIDE 1 MG/2 ML NEBU INHALATION SCH (08:16)
[2020-03-31] MEDS: METOPROLOL TARTRATE 50 MG TAB PO SCH (08:16)
[2020-03-31] MEDS: FORMOTEROL FUMARATE 20 MCG/2 ML NEBU INHALATION SCH (08:16)
[2020-03-31] MEDS: MAGNESIUM OXIDE 400 MG TAB PO SCH (08:16)
[2020-03-31] MEDS: ASPIRIN 81 MG PO SCH (08:16)
[2020-03-31] MEDS: IPRATROPIUM-ALBUTEROL 3 ML NEB INHALATION SCH ×2 (08:16→11:19)
[2020-03-31] MEDS: APIXABAN 5 MG TAB PO SCH (08:17)
[2020-03-31] MEDS: SODIUM BICARBONATE TAB 650 MG TAB PO SCH (08:17)
[2020-03-31] MEDS: hydrALAZINE HCL 50 MG TAB PO SCH (08:17)
[2020-03-31] MEDS: QUEtiapine 25 MG TAB PO SCH (08:17)
[2020-03-31] MEDS: CEFEPIME 2 GM in SODIUM CHLORIDE 0.9% 100 ML IVPB SCH (08:17)
[2020-03-31] MEDS: TAMSULOSIN 0.4 MG CAP.ER.24H PO SCH (08:17)
[2020-03-31] MEDS: COLCHICINE 0.6 MG EACH PO SCH (08:17)
[2020-03-31] MEDS: FUROSEMIDE 10 MG/ML 2 ML VIAL IV SCH (08:18)
[2020-03-31] MEDS: KETOCONAZOLE 2% SHAMPOO 1 APPLIC/ML TOPICAL SCH (08:30)
[2020-03-31 08:38] LABS: Calcium 9.2 mg/dL (8.4-10.2); Potassium 3.9 mmol/L (3.5-5.1)
[2020-03-31] MEDS: oxyCODONE-APAP 10-325MG 1 EACH TAB PO PRN (09:23)
[2020-03-31] MEDS ORDERED: SODIUM FERRIC GLUCONAT-SUCROSE 125 MG in SODIUM CHLORIDE 0.9% 100 ML IVPB ONE (10:26)
--- NOTE | 2020-03-31 10:26 | P.PN ---
Subjective Patient is seen in follow-up for acute kidney injury. Renal function stable. Blood pressure stable. Good urine output. No chest pain or shortness of breath. Oral intake is good. Edema improving the diuresis. Going home today. Vital signs are stable. General: The patient appeared well nourished and normally developed. HEENT: Head exam is unremarkable. Neck is without jugular venous distension. LUNGS: Breath sounds decreased. HEART: Rate and Rhythm are regular. ABDOMEN: Soft, nontender. EXTREMITITES: 1+ edema. Objective - Vital Signs Vital signs: Vital Signs Temp 97.7 F 03/31/20 08:00 Pulse 76 03/31/20 08:41 Resp 18 03/31/20 08:00 BP 163/73 03/31/20 08:00 Pulse Ox 95 03/31/20 08:00 Intake & Output 03/30/20 03/31/20 03/31/20 18:59 06:59 18:59 Intake Total 1420 100 180 Output Total 1025 1050 900 Balance 395 -950 -720 Weight 107 kg Intake: IV 100 100 Cefepime 2 gm In Sodium 100 100 Chloride 0.9% 100 ml @ 25 mls/hr IVPB Q12HR [facility] Rx #:[id number] Oral 1320 180 Output: Urine 1025 1050 900 Other: Voiding Method Toilet # Voids 3 1 - Labs CBC & Chem 7: 03/29/20 07:10 03/31/20 07:52 Labs: Abnormal Lab Results - Last 24 Hours (Table) 03/30/20 03/30/20 03/30/20 Range/Units 07:52 07:52 12:20 ESR 82 H (0-15) mm/hr BUN (9-20) mg/dL Creatinine (0.66-1.25) mg/dL Glucose (74-99) mg/dL POC Glucose (mg/dL) 206 H (75-99) mg/dL Iron 25 L (65-175) ug/dL % Saturation 8.62 L (15.00-50.00) Ferritin 808.3 H (22.0-322.0) ng/mL 03/30/20 03/30/20 03/31/20 Range/Units 17:06 19:37 06:10 ESR (0-15) mm/hr BUN (9-20) mg/dL Creatinine (0.66-1.25) mg/dL Glucose (74-99) mg/dL POC Glucose (mg/dL) 265 H 278 H 156 H (75-99) mg/dL Iron (65-175) ug/dL % Saturation (15.00-50.00) Ferritin (22.0-322.0) ng/mL 03/31/20 Range/Units 07:52 ESR (0-15) mm/hr BUN 80 H (9-20) mg/dL Creatinine 1.70 H (0.66-1.25) mg/dL Glucose 123 H (74-99) mg/dL POC Glucose (mg/dL) (75-99) mg/dL Iron (65-175) ug/dL % Saturation (15.00-50.00) Ferritin (22.0-322.0) ng/mL Assessment and Plan Plan: Assessment: 1. Acute kidney injury secondary to ATN secondary to contrast-induced acute kidney injury and further worsened with the use of nonsteroidals and diuretics. Baseline creatinine near 1 and is stable at 1.7 today. UA benign. 2. Urinary retention status post catheterization this admission. On Flomax. 3. Lumbar discitis maintained on antibiotics. Had MRI this admission which rev ealed no evidence of discitis. 4. Mild hyperkalemia secondary to acute kidney injury, Motrin and hy perglycemia. Resolved. 5. Diabetes mellitus. 6. Lower extremity edema. Improving with diuresis. 7. Metabolic acidosis secondary to IV fluids and acute kidney injury. Maintained on oral bicarb. Better. 8. Anemia. Iron deficiency present. Plan: Monitor bladder scans closely. To insert Finch catheter if over 300 mL of urine present. Maintain Lasix 20 mg IV twice daily - transition to oral Lasix 20 mg orally 3 times daily upon discharge which was his dose prior to admission. Continue to monitor renal function and urine output. I will give him a dose of IV iron today. Patient was advised to monitor his weight closely at home and call if gains over 2-3 pounds or edema worsens. He was also advised to follow a low-salt diet as well as fluid restriction of 40 oz or less per day. Repeat BMP and magnesium level 3-4 days postdischarge. Follow up outpatient in 7-10 days.
[2020-03-31 11:45] VITALS: BP 173/75; PULSE 75
[2020-03-31 11:49] LABS: Glucose,Whole Blood 169 mg/dL (75-99)
[2020-03-31] MEDS ORDERED: FUROSEMIDE 10 MG/ML 2 ML VIAL IV ONE (12:00)
[2020-03-31] MEDS: THIAMINE 100 MG TAB PO SCH (12:07)
[2020-03-31] MEDS: MULTIVITAMINS, THERA 1 EACH TAB PO SCH (12:07)
[2020-03-31] MEDS: FOLIC ACID 1 MG TAB PO SCH (12:07)
--- NOTE | 2020-03-31 13:40 | P.DS ---
Providers Date of admission: 03/23/20 13:35 Expected date of discharge: 03/31/20 Attending physician: Isabell Huertas Consults: 03/23/20 13:35 Consult Physician Routine Consulting Provider: Haritha Yap Consult Reason/Comments: Sepsis, history of discitis Do you want consulting provider notified?: Yes 03/23/20 18:28 Consult Physician Routine Consulting Provider: Rickie Neal Consult Reason/Comments: pneumonia Do you want consulting provider notified?: Yes 03/23/20 18:29 Consult Physician Routine Consulting Provider: Aidee Zeng Consult Reason/Comments: chf Do you want consulting provider notified?: Yes 03/24/20 18:02 Consult Physician Routine Consulting Provider: Arvin King Consult Reason/Comments: unresponsiveness Do you want consulting provider notified?: Yes 03/27/20 09:35 Consult Physician Routine Consulting Provider: Ruth De Los Santos Consult Reason/Comments: renal failure elevated bun, cre, retention Do you want consulting provider notified?: Yes 03/29/20 17:09 Consult Physician Routine Consulting Provider: Shad Grier Consult Reason/Comments: lumbar disc herniation Do you want consulting provider notified?: Yes Primary care physician: [facility] Course: Final diagnosis Shortness of breath and cough for possible bilateral pneumonia with acute hypoxic respiratory failure, right more than left with hypoxic hypercarbic respiratory failure Congestive heart failure acute exacerbation with acute on chronic diastolic dysfunction 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 Acute on chronic renal failure with acute tubular necrosis Hyperkalemia secondary to renal failure Elevated BNP Elevated plasma lactic acid, possible sepsis present on admission Change in mental status acute about encephalopathy, multifactorial Hypomagnesemia Elevated AST increased LDH and CRP Increased white blood count anemia, normocytic thrombocytopenia History of recent discitis with alphahemolytic streptococci in the blood culture On PICC line on the left arm with IV antibiotics History of coronary artery disease history of congestive heart failure, ejection fraction unknown History of chronic obstructive pulmonary disease History of deep vein thrombosis Gastroesophageal reflux disease hypertension Hyperlipidemia history of degenerative joint disease history of prostate disorder History of sleep apnea history of recent sepsis secondary to discitis Urinary retention on Finch catheter History of DVT on the right arm History of lower leg cellulitis obstructive sleep apnea Nonsustained ventricular tachycardia history history of transient ischemic attack History of benign prostatic hypertrophy History of colonic polyps History of back surgery/degenerative joint disease history of coronary artery disease/stent history of nicotine dependence Obesity with a body mass index of 37.1 Discharge disposition Patient is being discharged in a stable condition with guarded prognosis to home. Patient will follow-up with Dr. Keene in the outpatient setting upon discharge. Patient also instructed to follow-up with multiple medical consultations. Appointments have been scheduled and arranged. Patient will continue with home care in the outpatient setting. Patient is to continue with IV antibiotics per infectious disease recommendations in the form of cefazolin as previously instructed. Patient will continue with along from his own taper as well. Total time taken is greater than 35 minutes. Hospital course This is a 70-year-old male who was recently admitted with shortness of breath with cough and pneumonia along with CHF and acute on chronic renal failure and was being closely monitored. Multiple medical consultations following including infectious disease, nephrology, neurology, pain management, and cardiology. Patient is maintained on IV antibiotics in the form of cefazolin and will continue in the outpatient setting as patient has a PICC line to complete the course. Patient was treated with IV cefepime during hospitalization and has completed this course. Patient was also continued on IV steroids and will continue with the prednisone taper as prescribed. Patient will continue with home care in the outpatient setting and will be following up with Dr. Keene along with multiple medical consultations as discussed and scheduled. Currently no reports of chest pain, shortness of breath, or palpitations. Patient is afebrile. No reports of nausea or vomiting and patient is tolerating diet. Patient will be discharged home today. On exam vital signs are stable. Temp is 97.7F, pulse is 71, respirations are 18, blood pressure is 163/73, oxygen saturation is 95% on room air. Cardio S1, S2 are muffled. Respiratory system shows diminished breath sounds at the bases with no wheezing or rhonchi noted. Abdomen is soft and nontender. Nervous system shows no focal deficits. Please refer to medication reconciliation sheet for a list of medications. Patient Condition at Discharge: Stable Plan - Discharge Summary Discharge Rx Participant: No New Discharge Prescriptions: New Ipratropium-Albuterol Nebulize [Duoneb 0.5 mg-3 mg/3 ml Soln] 3 ml INHALATION RT-QID ml Folic Acid 1 mg PO DAILY@1200 30 Days #30 tab Metoprolol Tartrate [Lopressor] 25 mg PO HS 30 Days #30 tab Metoprolol Tartrate [Lopressor] 50 mg PO DAILY 30 Days #30 tab Melatonin 3 mg PO DAILY PRN tablet PRN Reason: Insomnia Multivitamins, Thera [Multivitamin (formulary)] 1 each PO DAILY@1200 30 Days #30 tab INSULIN ASPART (NovoLOG) [NovoLOG (formulary)] 0 unit SQ ACHS 30 Days #5 vial oxyCODONE-APAP 10-325MG [Percocet 10-325 mg] 1 each PO Q8H PRN #0 tab PRN Reason: Pain predniSONE 10 mg PO DIRECTED #105 tab QUEtiapine [SEROquel] 25 mg PO BID 30 Days #60 tab Acetaminophen Tab [Tylenol] 325 mg PO Q4HR PRN tab PRN Reason: Fever And/ Or Pain Thiamine [Vitamin B-1] 100 mg PO DAILY@1200 30 Days #30 tab Sodium Bicarbonate Tab 650 mg PO BID 30 Days #60 tab ceFAZolin [Kefzol] 2 gm IVP Q8HR 8 Days #1 ml Continue Nitroglycerin Sl Tabs [Nitrostat] 0.4 mg SL Q5M PRN PRN Reason: Chest Pain Atorvastatin [Lipitor] 80 mg PO HS Fluticasone/Vilanterol [Breo Ellipta 100-25 Mcg Inhaler] 1 puff INHALATION RT-HS Pramipexole Di-HCl [Mirapex] 1 mg PO HS Ipratropium-Albuterol Nebulize [Duoneb 0.5 mg-3 mg/3 ml Soln] 3 ml INHALATION RT-QID PRN PRN Reason: Shortness Of Breath Apixaban [Eliquis] 5 mg PO Q12H Ketoconazole [Ketoconazole 2% Shampoo] 1 applic TOPICAL Q72H Omeprazole 20 mg PO AC-BRKFST Tamsulosin [Flomax] 0.4 mg PO DAILY Aspirin EC [Ecotrin Low Dose] 81 mg PO DAILY Colchicine 0.6 mg PO BID hydrALAZINE HCL 50 mg PO Q8HR Magnesium 250 mg PO DAILY Insulin Glargine [Lantus] 30 unit SQ HS Changed Furosemide [Lasix] 20 mg PO TID #0 Discontinued QUEtiapine [SEROquel] 25 mg PO HS tab ceFAZolin [Kefzol] 2 gm IVP Q8HR #126 vial Metoprolol Tartrate [Lopressor] 50 mg PO BID #60 tab Pregabalin [Lyrica] 75 mg PO BID #60 cap Furosemide [Lasix] 40 mg PO DAILY #0 oxyCODONE-APAP 10-325MG [Percocet 10-325 mg] 1 tab PO QID PRN PRN Reason: Pain predniSONE 10 mg PO DAILY Spironolactone [Aldactone] 25 mg PO DAILY Discharge Medication List Nitroglycerin Sl Tabs [Nitrostat] 0.4 mg SL Q5M PRN 03/09/14 [History] Atorvastatin [Lipitor] 80 mg PO HS 05/08/15 [History] Fluticasone/Vilanterol [Breo Ellipta 100-25 Mcg Inhaler] 1 puff INHALATION RT-HS 03/12/18 [History] Ipratropium-Albuterol Nebulize [Duoneb 0.5 mg-3 mg/3 ml Soln] 3 ml INHALATION RT-QID PRN 09/02/19 [History] Pramipexole Di-HCl [Mirapex] 1 mg PO HS 09/02/19 [History] Apixaban [Eliquis] 5 mg PO Q12H 11/01/19 [History] Ketoconazole [Ketoconazole 2% Shampoo] 1 applic TOPICAL Q72H 11/01/19 [History] Omeprazole 20 mg PO AC-BRKFST 11/23/19 [History] Tamsulosin [Flomax] 0.4 mg PO DAILY 11/23/19 [History] Aspirin EC [Ecotrin Low Dose] 81 mg PO DAILY 12/09/19 [History] Colchicine 0.6 mg PO BID 03/23/20 [History] Magnesium 250 mg PO DAILY 03/23/20 [History] hydrALAZINE HCL 50 mg PO Q8HR 03/23/20 [History] Insulin Glargine [Lantus] 30 unit SQ HS 03/25/20 [History] Acetaminophen Tab [Tylenol] 325 mg PO Q4HR PRN tab 03/30/20 [Rx] Folic Acid 1 mg PO DAILY@1200 30 Days #30 tab 03/30/20 [Rx] INSULIN ASPART (NovoLOG) [NovoLOG (formulary)] 0 unit SQ ACHS 30 Days #5 vial 03/30/20 [Rx] Ipratropium-Albuterol Nebulize [Duoneb 0.5 mg-3 mg/3 ml Soln] 3 ml INHALATION RT-QID ml 03/30/20 [Rx] Melatonin 3 mg PO DAILY PRN tablet 03/30/20 [Rx] Metoprolol Tartrate [Lopressor] 25 mg PO HS 30 Days #30 tab 03/30/20 [Rx] Metoprolol Tartrate [Lopressor] 50 mg PO DAILY 30 Days #30 tab 03/30/20 [Rx] Multivitamins, Thera [Multivitamin (formulary)] 1 each PO DAILY@1200 30 Days #30 tab 03/30/20 [Rx] QUEtiapine [SEROquel] 25 mg PO BID 30 Days #60 tab 03/30/20 [Rx] Thiamine [Vitamin B-1] 100 mg PO DAILY@1200 30 Days #30 tab 03/30/20 [Rx] oxyCODONE-APAP 10-325MG [Percocet 10-325 mg] 1 each PO Q8H PRN #0 tab 03/30/20 [Rx] predniSONE 10 mg PO DIRECTED #105 tab 03/30/20 [Rx] Furosemide [Lasix] 20 mg PO TID #0 03/31/20 [Rx] Sodium Bicarbonate Tab 650 mg PO BID 30 Days #60 tab 03/31/20 [Rx] ceFAZolin [Kefzol] 2 gm IVP Q8HR 8 Days #1 ml 03/31/20 [Rx] Follow up Appointment(s)/Referral(s): Rahul Chang MD [STAFF PHYSICIAN] - 05/05/20 2:15 pm (Friday) Spencer An MD [STAFF PHYSICIAN] - 04/18/20 8:30 am (Friday) [facility] [NON-STAFF] - Gaurang Frazier MD [STAFF PHYSICIAN] - 04/25/20 2:30 pm (Friday -previously scheduled appointment) Rk Keene III, MD [Primary Care Provider] - 04/14/20 11:00 am (Friday) Jon Cota DO [STAFF PHYSICIAN] - 04/03/20 10:20 am (Friday -previously scheduled appointment) Haritha Ypa MD [STAFF PHYSICIAN] - 04/04/20 10:00 am (Friday) Activity/Diet/Wound Care/Special Instructions: Activity Limited until follow-up Follow-up with primary care provider upon discharge Follow-up with pain management in the outpatient setting Follow-up with Dr. Chang in the outpatient setting Follow-up with nephrology in 7-10 days Follow-up with infectious disease in the outpatient setting Follow-up with cardiology in the outpatient setting Continue with IV antibiotics as previously scheduled Continue with Lasix 20 mg 3 times daily Continue to monitor daily weights at home and call primary care provider if gains are over 2-3 pounds or edema worsens Continue elevate lower extremities while at rest and use compression hose Repeat labs in 2-3 days Continue with home care Continue renal diet low potassium, low phosphorus, low sodium, low salt diet with fluid restrictions of 40 ounces or less per day Continue to monitor blood sugars before meals at bedtime and keep a diary for primary care follow-up NovoLog sliding scale (continue with before meals and at bedtime) along with long-acting 0-150 equals 0 units 151-200 equals 2 units 201-250 equals 4 units 251-300 equals 6 units 301-350 equals 8 units 351-400 equals 10 units Please notify provider if blood sugar is 400 or above Discharge Disposition: HOME WITH HOME HEALTH SERVICES
--- NOTE | 2020-03-31 17:45 | PN ---
PROGRESS NOTE DATE OF SERVICE: 03/31/2020 REASON FOR FOLLOWUP: Pneumonia and discitis. INTERVAL HISTORY: Patient is currently afebrile. Patient is breathing comfortably. The patient denies having any chest pain. No shortness of breath or cough. No nausea, vomiting, abdominal pain. Overall feeling better. PHYSICAL EXAMINATION: Blood pressure 170/75 with pulse of 75, temperature 99, he is 93% on room air. General description is an elderly male lying in bed in no distress. Respiratory system: Unlabored breathing. Clear to auscultation anteriorly. Heart S1, S2. Regular rate and rhythm. ABDOMEN: Soft, no tenderness. LABS: BUN of 18, creatinine 1.70. DIAGNOSTIC IMPRESSION AND PLAN: Patient admitted to the hospital with fever concerning for pneumonia. The patient antibiotic therapy should be enough. The patient also has history of lumbar spine discitis and clinically responding to cefazolin that will be continued until the 15th to finish his 6 week course of therapy. MRI showed already improvement and close outpatient followup. MMODL / IJN: [id number] / CLEMENTINE
== END 2020-03-31 15:41 | disposition home health service (06) | DRG 871 ==
LOC: EC 11:21 → 4SSUR 13:35 → 3SCARD 03-24 16:57
PROVIDERS: ADMIT Hospitalist; ATTEND Hospitalist
PROC: 5A09557 Assistance with Respiratory Ventilation, Greater than 96 Consecutive Hours, Continuous Positive Airway Pressure (ICD-10-PCS; principal; 2020-03-24)
DX: A40.9 Streptococcal sepsis, unspecified (principal); J96.21 Acute and chronic respiratory failure with hypoxia; I50.33 Acute on chronic diastolic (congestive) heart failure; J15.6 Pneumonia due to other Gram-negative bacteria; J96.22 Acute and chronic respiratory failure with hypercapnia; N17.0 Acute kidney failure with tubular necrosis; G92 Toxic encephalopathy; J44.0 Chronic obstructive pulmonary disease with (acute) lower respiratory infection; J98.11 Atelectasis; I13.0 Hypertensive heart and chronic kidney disease with heart failure and stage 1 through stage 4 chronic kidney disease, or unspecified chronic kidney disease; J96.10 Chronic respiratory failure, unspecified whether with hypoxia or hypercapnia; E87.2 Acidosis; M35.1 Other overlap syndromes; R65.20 Severe sepsis without septic shock; I27.20 Pulmonary hypertension, unspecified; E11.51 Type 2 diabetes mellitus with diabetic peripheral angiopathy without gangrene; E11.22 Type 2 diabetes mellitus with diabetic chronic kidney disease; Z20.822 Contact with and (suspected) exposure to COVID-19; E11.65 Type 2 diabetes mellitus with hyperglycemia; E11.69 Type 2 diabetes mellitus with other specified complication; E11.40 Type 2 diabetes mellitus with diabetic neuropathy, unspecified; D69.6 Thrombocytopenia, unspecified; E66.01 Morbid (severe) obesity due to excess calories; Z79.4 Long term (current) use of insulin; Z20.828 Contact with and (suspected) exposure to other viral communicable diseases; R00.0 Tachycardia, unspecified; E83.42 Hypomagnesemia; R74.02 Elevation of levels of lactic acid dehydrogenase [LDH]; R74.01 Elevation of levels of liver transaminase levels; Z68.37 Body mass index [BMI] 37.0-37.9, adult; W18.30XA Fall on same level, unspecified, initial encounter; Y92.231 Patient bathroom in hospital as the place of occurrence of the external cause; E87.5 Hyperkalemia; R33.9 Retention of urine, unspecified; T50.8X5A Adverse effect of diagnostic agents, initial encounter; T40.605A Adverse effect of unspecified narcotics, initial encounter; G47.33 Obstructive sleep apnea (adult) (pediatric); E78.5 Hyperlipidemia, unspecified; M54.2 Cervicalgia; I25.10 Atherosclerotic heart disease of native coronary artery without angina pectoris; M48.061 Spinal stenosis, lumbar region without neurogenic claudication; M51.26 Other intervertebral disc displacement, lumbar region; G89.29 Other chronic pain; M51.27 Other intervertebral disc displacement, lumbosacral region; D50.9 Iron deficiency anemia, unspecified; N40.0 Benign prostatic hyperplasia without lower urinary tract symptoms; M51.36 Other intervertebral disc degeneration, lumbar region; K21.9 Gastro-esophageal reflux disease without esophagitis; K57.90 Diverticulosis of intestine, part unspecified, without perforation or abscess without bleeding; I87.2 Venous insufficiency (chronic) (peripheral); Z99.81 Dependence on supplemental oxygen; Z96.653 Presence of artificial knee joint, bilateral; Z95.5 Presence of coronary angioplasty implant and graft; Z96.1 Presence of intraocular lens; Z98.42 Cataract extraction status, left eye; Z98.41 Cataract extraction status, right eye; Z96.611 Presence of right artificial shoulder joint; Z96.652 Presence of left artificial knee joint; Z88.6 Allergy status to analgesic agent; Z88.8 Allergy status to other drugs, medicaments and biological substances; Z79.01 Long term (current) use of anticoagulants; Z79.82 Long term (current) use of aspirin; Z79.52 Long term (current) use of systemic steroids; Z79.899 Other long term (current) drug therapy; Z79.891 Long term (current) use of opiate analgesic; Z79.2 Long term (current) use of antibiotics; Z86.718 Personal history of other venous thrombosis and embolism; Z86.73 Personal history of transient ischemic attack (TIA), and cerebral infarction without residual deficits; Z86.010 Personal history of colon polyps; Z87.01 Personal history of pneumonia (recurrent); Z87.19 Personal history of other diseases of the digestive system; Z87.891 Personal history of nicotine dependence; Z82.49 Family history of ischemic heart disease and other diseases of the circulatory system; Z82.3 Family history of stroke; Z98.890 Other specified postprocedural states
CPT/HCPCS: 36415; 36600; 70450; 71045; 71046; 71275; 72158; 80048; 80053; 80202; 81003; 82728; 82805; 83540; 83550; 83605; 83615; 83735; 83880; 84132; 84145; 85025; 85379; 85610; 85652; 85730; 86140; 87040; 87635; 93005; 93306; 94640; 94660; 94760; 95816; 96361; 96365; 96366; 96375; 99285

== ENCOUNTER → 2020-04-19 | Outpatient (CLI) | payer MEDICARE ==
--- NOTE | 2020-04-19 08:49 | P.CONS ---
History of Present Illness - Reason for Consult Consult date: 04/19/20 - Chief Complaint Lower back pain - History of Present Illness This is a 70-year-old gentleman with history of chronic lower back pain and neck pain however he is here today mostly for his lower back pain because his neck pain has improved patient of Dr. Go referred him to our clinic for a cervical epidural steroid injection. The patient will be seen today and we'll focus on his lower back pain only. The patient's pain is constant and increases by daily activities. The pain occasionally wakes him up at night but he denies any weight loss recently or any bowel or bladder dysfunction. The patient takes Percocet for his pain which takes the edge off as the patient states but doesn't help much with this pain. He had seen Dr. Browne who was planning on doing diagnostic lumbar medial branch block before his departure. The patient had what seems to be lumbar laminectomy . The patient takes Eliquis for history of blood clot in his right arm after taking the PICC line out. The patient had to have a PICC line for cellulitis and then he was found to have lumbar discitis for which she had to be on antibiotics through a PICC line for couple of months. He is switched now to oral antibiotics but on his last visit his physician he was told that the infection is cleared and there are no more signs of infection his lumbar disks as per the last MRI he had in the lumbar spine. Past Medical History Past Medical History: Coronary Artery Disease (CAD), Chest Pain / Angina, Heart Failure, COPD, Deep Vein Thrombosis (DVT), GERD/Reflux, Hyperlipidemia, Hypertension, Osteoarthritis (OA), Pneumonia, Prostate Disorder, Renal Disease, Respiratory Disorder, Sleep Apnea/CPAP/BIPAP Additional Past Medical History / Comment(s): Hx severe sepsis secondary to discitis, Hx urinary retention with granados during sepsis, Hx DVT R arm/sepsis d/t cellulitis in legs, venous insufficiency, spouse states severe swelling in legs and feet., spondylolsis, cervical and low back pain, DDD, chronic respiratory failure, CALLI with Cpap/O2 at 4L/NC at HS, Oxygen @ 4L prn during the day., nonsustained vtach, TIAs, small vessel disease, IDDM type II, neuropathy, BPH, diverticular disease, colon polyps, sinus problems, seasonal allergies., Mixed Connective Tissue Disease., spouse states hallucinations & confusion with sepsis and fever., pain in neck, back , shoulders and knees and everywhere., discharged from [facility] 03/31/20- hospitalized for pneumonia,SOB and sepsis. History of Any Multi-Drug Resistant Organisms: None Reported Past Surgical History: Back Surgery, Heart Catheterization With Stent, Joint Replacement, Orthopedic Surgery Additional Past Surgical History / Comment(s): Bilateral knee arthroscopies, total L knee arthroplasty, R total shoulder arthroplasty, L hand injury with repair, low back surgery, PCI with 3 stents, colonoscopies/polypectomies, lumbar epidural injections, bilateral cataract removals/lens implants. Past Anesthesia/Blood Transfusion Reactions: No Reported Reaction Additional Past Anesthesia/Blood Transfusion Reaction / Comm: STATES "HAD A HARD TIME WITH BREATHING POST OP" Date of Last Stent Placement:: 2009 Past Psychological History: No Psychological Hx Reported Additional Psychological History / Comment(s): . Smoking Status: Former smoker Past Alcohol Use History: None Reported Additional Past Alcohol Use History / Comment(s): QUIT SMOKING IN 2009, STARTED 1962, SMOKED 2 PPD Past Drug Use History: Marijuana Additional Drug Use History / Comment(s): spouse states gummies-not sure if currently taking - Past Family History Father Family Medical History: CVA/TIA, Hyperlipidemia, Hypertension Mother Family Medical History: Hypertension Medications and Allergies Home Medications Medication Instructions Recorded Confirmed Type Atorvastatin [Lipitor] 80 mg PO HS 05/08/15 04/14/20 History Fluticasone/Vilanterol [Breo 1 puff INHALATION RT-HS 03/12/18 04/14/20 History Ellipta 100-25 Mcg Inhaler] Pramipexole Di-HCl [Mirapex] 1 mg PO HS 09/02/19 04/14/20 History Apixaban [Eliquis] 5 mg PO Q12H 11/01/19 04/14/20 History Omeprazole 20 mg PO AC-BRKFST 11/23/19 04/14/20 History Tamsulosin [Flomax] 0.4 mg PO DAILY 11/23/19 04/14/20 History Aspirin EC [Ecotrin Low Dose] 81 mg PO DAILY 12/09/19 04/14/20 History Colchicine 0.6 mg PO BID 03/23/20 04/14/20 History Magnesium 250 mg PO DAILY 03/23/20 04/14/20 History hydrALAZINE HCL 50 mg PO Q8HR 03/23/20 04/14/20 History Insulin Glargine [Lantus] 30 unit SQ HS PRN 03/25/20 04/14/20 History Folic Acid 1 mg PO DAILY@1200 30 Days #30 tab 03/30/20 04/14/20 Rx Melatonin 3 mg PO DAILY PRN tablet 03/30/20 04/14/20 Rx Metoprolol Tartrate [Lopressor] 25 mg PO HS 30 Days #30 tab 03/30/20 04/14/20 Rx Metoprolol Tartrate [Lopressor] 50 mg PO DAILY 30 Days #30 tab 03/30/20 04/14/20 Rx Multivitamins, Thera [Multivitamin 1 each PO DAILY@1200 30 Days #30 03/30/20 04/14/20 Rx (formulary)] tab QUEtiapine [SEROquel] 25 mg PO BID 30 Days #60 tab 03/30/20 04/14/20 Rx Thiamine [Vitamin B-1] 100 mg PO DAILY@1200 30 Days #30 03/30/20 04/14/20 Rx tab oxyCODONE-APAP 10-325MG [Percocet 1 each PO Q8H PRN #0 tab 03/30/20 04/14/20 Rx 10-325 mg] predniSONE 10 mg PO DIRECTED #105 tab 03/30/20 04/14/20 Rx Sodium Bicarbonate Tab 650 mg PO BID 30 Days #60 tab 03/31/20 04/14/20 Rx Albuterol Nebulizer 1 dose INHALATION QID 04/14/20 History Furosemide [Lasix] 20 mg PO QID 04/14/20 04/14/20 History Benzonatate [Tessalon Perles] 100 mg PO BID 04/19/20 04/19/20 History Cephalexin [Keflex] 500 mg PO Q8HR 04/19/20 04/19/20 History Folic Acid 1 mg PO DAILY 04/19/20 04/19/20 History Spironolactone 25 mg PO DAILY 04/19/20 04/19/20 History Allergies Allergy/AdvReac Type Severity Reaction Status Date / Time acetaminophen [From Tylenol] AdvReac kidney/liver Verified 04/14/20 09:08 issues Physical Exam - Constitutional General appearance: morbidly obese - EENT Eyes: PERRLA - Neurologic Neuro exam of the lower extremities showed decreased right knee reflex and absent left knee reflex and absent ankle reflexes bilaterally. He has normal muscle strength in the lower extremities bilaterally except for mild weakness for knee flexion bilaterally to 4 out of 5. Facet loading test is positive on the lumbar spine. He has tenderness in the lumbar paravertebral musculature bilaterally more on the right side than the left side. He has normal range of motion of the lumbar spine for flexion but decreased for extension due to increasing pain. Neurologic: CNII-XII intact - Psychiatric Psychiatric: A&O x's 3, appropriate affect, intact judgment & insight Assessment and Plan Plan: This is a 70-year-old gentleman with multiple comorbidities including diabetes, treatment with chronic was 4 clot in the arm, history of connective tissue disease, history of lumbar discitis, cured after a few weeks of IV antibiotics. He also has a history of coronary artery disease with coronary stents placed years ago. Lumbar spondylosis without myelopathy History of lumbar laminectomy Cervical radiculopathy and cervical spondylosis and without myelopathy The patient right now is complaining about his lower back pain and that's why I'm going to schedule him for diagnostic lumbar medial branch block before the bottom 3 levels of his spine from L3 4, L4-L5 to L5-S1 bilaterally. 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 The procedure was completed to the patient and his questions and his 's questions were answered. I thank you for the referral
[2020-04-19 08:56] VITALS: BP 147/77; PULSE 70; RESP 18; TEMP 98.2
== END | disposition home or self-care (01) ==
LOC: PNWHC3 08:07
PROVIDERS: ATTEND Anesthesiology
DX: M47.22 Other spondylosis with radiculopathy, cervical region (principal); M47.816 Spondylosis without myelopathy or radiculopathy, lumbar region; Z87.891 Personal history of nicotine dependence; Z79.891 Long term (current) use of opiate analgesic; Z79.899 Other long term (current) drug therapy; Z79.4 Long term (current) use of insulin; Z79.01 Long term (current) use of anticoagulants; Z79.82 Long term (current) use of aspirin; Z79.52 Long term (current) use of systemic steroids; Z88.6 Allergy status to analgesic agent
CPT/HCPCS: 99211

== ENCOUNTER → 2020-05-11 | Outpatient (CLI) | payer MEDICARE ==
[2020-05-11 16:33] LABS: African American GFR (CKD) 53.5 (60.0-200.0); Albumin 4.5 g/dL (3.80-4.90); Albumin/Globulin Ratio 3.46 (1.60-3.17); BUN/Creat Ratio 37.33 Ratio (12.00-20.00); Calcium 9.4 mg/dL (8.7-10.3); Chol/HDL Ratio 3.93; Globulin 1.3 g/dL (1.6-3.3); Non-African American GFR(CKD) 46.2 (60.0-200.0); Total Bilirubin 0.4 mg/dL (0.2-1.2); Total Protein 5.8 g/dL (6.2-8.2)
[2020-05-11 16:40] LABS: PSA Annual Screen 2.7 ng/mL (0.0-4.0)
[2020-05-11 17:09] LABS: Basophils # (A) 0.05 X 10*3/uL (0.00-0.10); Basophils % (A) 0.3 %; Eosinophils # (A) 0.04 X 10*3/uL (0.04-0.35); Eosinophils % (A) 0.3 %; HCT 35.4 % (39.6-50.0); HGB 10.7 g/dL (13.0-17.0); Lymphocytes # (A) 0.99 X 10*3/uL (0.90-5.00); Lymphocytes % (A) 6.6 %; MCHC 30.2 g/dL (32.0-37.0); MCV 92.7 fL (80.0-97.0); Mean Platelet Volume 12.9 fL (9.5-12.2); Monocytes # (A) 0.43 X 10*3/uL (0.20-1.00); Monocytes % (A) 2.9 %; Neutrophils # (A) 13.02 X 10*3/uL (1.80-7.70); Neutrophils % (A) 87.3 %; Platelet Count 193 X 10*3/uL (140-440); RBC 3.82 X 10*6/uL (4.40-5.60); RDW 17.1 % (11.5-14.5); WBC 14.92 X 10*3/uL (4.50-10.00)
== END | disposition home or self-care (01) ==
LOC: LABWHC1 10:14
PROVIDERS: ATTEND Family Medicine
DX: Z00.01 Encounter for general adult medical examination with abnormal findings (principal); E11.9 Type 2 diabetes mellitus without complications; Z12.5 Encounter for screening for malignant neoplasm of prostate
CPT/HCPCS: 80061; 80053; 85025; 36415; G0103

== ENCOUNTER 2020-06-16 08:51 | Day surgery (SDC) | payer MEDICARE ==
[2020-06-15 08:38] VITALS: BMI 35.2
[~2020-06-16 08:51] MED LIST changes: -LIDOCAINE 1% 20 ML VIAL (10MG/ML) FOR IV START INTRADERMA PRN
[2020-06-16 09:22] LABS: Glucose,Whole Blood 101 mg/dL (75-99)
[2020-06-16 09:24] VITALS: TEMP 97.8
[2020-06-16] MEDS ORDERED: fentaNYL (PF) 50 MCG/ML 2 ML AMP ONE (09:30)
[2020-06-16] MEDS ORDERED: ROPIVACAINE 5MG/ML 20ML VIAL ONE (09:30)
[2020-06-16] MEDS ORDERED: TRIAMCINOLONE ACETONIDE 40 MG/ML 1 ML VIAL ONE (09:30)
[2020-06-16] MEDS ORDERED: MIDAZOLAM 2 MG/2 ML VIAL ONE (09:30)
--- NOTE | 2020-06-16 09:47 | P.PCN ---
Date of Procedure: 06/16/20 Surgeon: Felix Daniel Pathology: none sent Condition: stable Disposition: PACU Description of Procedure: PREOPERATIVE DIAGNOSIS : 1- Lumbar spondylosis with Facet Arthropathy without myelopathy . 2- Lumber degenerative disc disease POSTOPERATIVE DIAGNOSIS: 1- Lumbar spondylosis with Facet Arthropathy without myelopathy . 2- Lumber degenerative disc disease PROCEDURE: Diagnostic bilateral L3 -4 , L4 -5 , and L5-S1 medial branch block under fluoroscopy Physician: Felix Daniel MD ANESTHESIA: Local with 1% lidocaine; IV moderate conscious sedation by the anesthesia department. EBL: Negligible COMPLICATION: None. PROCEDURE INDICATION: Chronic low back pain secondary to Facet arthropathy unresponsive to conservative treatment. PROCEDURE DESCRIPTION: the patient was seen and identified in the preop holding area , risks and benefits and possible complications of the procedure and alternatives were discussed with the patient, and the patient agreed to proceed with the procedure and signed the consent. IV was started and vital signs monitored during the procedure and fluoroscopy was used to maximize the benefit and accuracy of the needle placement, sedation was given to decrease patient anxiety, patient was taken to the procedure room and placed in prone position vital signs monitored. The patient was brought into the procedure room and placed in prone position. Skin was prepped with Chloraprep and draped in a sterile manner. Lidocaine 1% was used to numb the skin up at the target points that were chosen as follows: at the L5-S1 level which corresponds to the dorsal ramus of L5 the target points were at the superior medial aspect of the sacral ala on each side of the spine on the AP view of fluoroscopy, and for theL2, L3 and L4 medial branches the target points were the connection between the transverse process and the superior to go process of L3, L4 and L5 respectively on the oblique views of fluoroscopy. I used 22-gauge 5 inch Quincke spinal needles for this procedure and after contacting bone at the target points mentioned above I injected 1 mL of a mixture of Kenalog 20 mg +5 MLS of Ropivacaine 0.5% PF . Patient tolerated procedure well. At the end of the procedure the needles removed and a bandage applied after the skin was cleaned the cleaning solution. patient was then taken to the recovery room in stable condition and monitored in the recovery room for 20-30 minutes and discharged home in stable condition after discharge criteria met . A copy of the needle placement picture was saved to the C-arm machine.
[2020-06-16] MEDS ORDERED: IV FLUID CONTINUATION 1,000 ML IV ONE (09:51)
[2020-06-16 09:53] VITALS: RESP 16
--- NOTE | 2020-06-16 09:57 | FL ---
EXAMINATION TYPE: FL guided pain mgmt statistic DATE OF EXAM: 06/16/2020 HISTORY: Fluoroscopy time 9 seconds of fluoroscopy provided. IMPRESSION: 1. Fluoroscopy time.
[2020-06-16 10:05] VITALS: BP 111/69; PULSE 64
== END 2020-06-16 10:27 | disposition home or self-care (01) ==
LOC: ORPAIN 08:51
PROVIDERS: ATTEND Anesthesiology
DX: G89.29 Other chronic pain (principal); M47.816 Spondylosis without myelopathy or radiculopathy, lumbar region; M51.36 Other intervertebral disc degeneration, lumbar region; I25.10 Atherosclerotic heart disease of native coronary artery without angina pectoris; I11.0 Hypertensive heart disease with heart failure; I50.9 Heart failure, unspecified; E11.9 Type 2 diabetes mellitus without complications; Z79.01 Long term (current) use of anticoagulants; K08.89 Other specified disorders of teeth and supporting structures; J44.9 Chronic obstructive pulmonary disease, unspecified; G47.33 Obstructive sleep apnea (adult) (pediatric); M10.9 Gout, unspecified; N42.9 Disorder of prostate, unspecified; K21.9 Gastro-esophageal reflux disease without esophagitis; Z95.5 Presence of coronary angioplasty implant and graft; Z88.6 Allergy status to analgesic agent; Z86.718 Personal history of other venous thrombosis and embolism; Z87.891 Personal history of nicotine dependence; Z79.899 Other long term (current) drug therapy; Z79.52 Long term (current) use of systemic steroids; Z79.891 Long term (current) use of opiate analgesic; Z79.4 Long term (current) use of insulin; Z79.51 Long term (current) use of inhaled steroids
CPT/HCPCS: 64493; 64494; 64495; J2250; J3301; J3010; J2795

== ENCOUNTER → 2020-07-03 | Outpatient (CLI) | payer MEDICARE ==
[2020-07-03 11:37] VITALS: BP 142/74; PULSE 80; RESP 16; TEMP 98.2
--- NOTE | 2020-07-03 15:20 | P.PN ---
Subjective Progress Note Date: 07/03/20 This is a follow-up visit for this patient with a history of severe neck pain and low back pain, patient had postlaminectomy pain syndrome and lumbar spondylosis with lumbar facet arthropathy, recently we did diagnostic medial branch block lumbar area patient reported that he had 0 benefit from it, he cont inued to have severe low back pain the pain is constant and increases with any activity the pain interfering with the quality of life patient continue to use pain medication without any significant improvement, he denies any side effect of the medication he denies any excessive drowsiness or sleepiness, and he reported that the intensity of the pain interferes with the quality of life and activity of daily livings, he complained of neck pain and also but most of his pain is in the low back area Objective - Vital Signs Vital signs: Vital Signs Temp 98.2 F 07/03/20 11:34 Pulse 80 07/03/20 11:34 Resp 16 07/03/20 11:34 BP 142/74 07/03/20 11:34 Pulse Ox 94 L 07/03/20 11:34 - Exam Physical Examinations : -Constitutiona : Cooperative , not in acute distress . -HEENT : nech : supple , no Lymphadenopathy , normal thyroid size . : eyes : no ptosis , no icterus, no photophobia . - neurologic : Cranial nerve II to XII intact , no focal neurological deffecit . -psychatric : alert , oriented X 3 , appropriate affect , intact judgment and insight . -Lymphatic : no Lymphadenopathy . - musculoskeltal : Cervical Spine motor stregnth in the deltoid and biceps, normal right side , normal Left side motor stregnth biceps and the wrist extensors normal right side ,normal left side . motor stregnth in the triceps muscle . normal Right side , normal Left side deep tendon reflexes normal at the biceps , normal at Brachioradialis , normal at triceps. cervical facet loading test: Positive Bilaterally Spurling test= positive Right , positive left. Neck distraction test= positive Right , positive left. Sisi sign= positive right, positive left . Lumber spine moter stegnth lower extremities ,thigh and legs 5/5 Right side , 5/5 Left side deep tendon reflexes : normal Knee Jerk , normal ankle Jerk lumber facet Loading Test =positive Right , positive Left Range of motion of the lumbar spine Flexion 30 degrees, extension 10 degrees strait leg raising test = positive at 30 degree Fabere test= positive Right , and positive LT . Sever tenderness over the Sacroiliac joint on the Right , and Left sides Gaenslen test= positive right ,and positive left . Seated flexion test= positive right ,and positive Left . Distraction test= positive bilaterally Sacroiliac compression test= positive bilaterally Assessment and Plan Plan: Assessment and plan=1-postlaminectomy pain syndrome lumbar area. 2-lumbar spondylosis with lumbar facet arthropathy without myelopathy. Patient had no benefit from diagnostic medial branch block lumbar area. Patient could benefit from caudal epidural steroid injection with lysis of epidural adhesions Patient had a history of DVT and is currently on ELEQUIS he had to hold ELEQUIS for 3 days before the procedure And we need to get approval of the cardiology/primary care - PQRS measures = - Patient's medications are documented in the chart. -Tobacco use is negative and counseling.Given. -Patient's has not received pneumococcal vaccine. -Advanced care planning discussed, patient not eligible. -Opiate contract not signed. -Pain positive and follow-up visit/procedure is scheduled. -Patient's blood pressure measured [ 142/74 ] , and documented in the record ,and patient will follow up with the primary care. -Patient's weight was measured and body mass index [ ] above the,normal limits and counseling was done. and patient instructed to follow-up with the primary care physician. -Patient was not identified as an unhealthy alcohol user Time with Patient: Less than 30
== END ==
LOC: PNWHC3 11:19
PROVIDERS: ATTEND Specialist
DX: M96.1 Postlaminectomy syndrome, not elsewhere classified (principal); M47.816 Spondylosis without myelopathy or radiculopathy, lumbar region; Z86.718 Personal history of other venous thrombosis and embolism
CPT/HCPCS: 99211

== ENCOUNTER 2020-08-21 19:43 | Inpatient (IN) | payer MEDICARE ==
[2020-08-21] MEDS ORDERED: SODIUM CHLORIDE 0.9% 1,000 ML IV STA (20:04)
--- NOTE | 2020-08-21 20:08 | ED ---
General Adult HPI - General Chief complaint: Eye Problems Stated complaint: RT eye issues Time Seen by Provider: 08/21/20 19:52 Source: patient, family Mode of arrival: wheelchair Limitations: no limitations - History of Present Illness Initial comments: Dictation was produced using [employer] dictation software. please excuse any grammatical, word or spelling errors. Chief Complaint: 70-year-old male multiple comorbidities presents to the emergency department for right eye vision loss and right lower extremity weakness. History of Present Illness: 70-year-old male he has multiple comorbidities. His: Please include coronary artery disease, heart failure, COPD, DVT. Since yesterday he has been experiencing right eye vision loss and difficulty with weakness to the right lower extremity. States his symptoms began acutely. Patient denies any history of stroke or TIA. Patient reports that in his vision he sees black dots and lack squiggly lines that resemble a spider only in his right kimball. Reports that he has a mild headache with its pain that is typical of his usual headaches. Patient denies this is the worse headache of his life. States that his headache is not thunderclap. The ROS documented in this emergency department record has been reviewed and confirmed by me. Those systems with pertinent positive or negative responses have been documented in the HPI. All other systems are other negative and/or noncontributory. PHYSICAL EXAM: General Impression: Alert and oriented x3, not in acute distress HEENT: Normocephalic atraumatic, extra-ocular movements intact, pupils equal and reactive to light bilaterally, mucous membranes moist. Cardiovascular: Heart regular rate and rhythm Chest: Able to complete full sentences, no retractions, no tachypnea Abdomen: abdomen soft, non-tender, non-distended, no organomegaly Musculoskeletal: Pulses present and equal in all extremities, no peripheral edema Motor: no focal deficits noted Neurological: CN II-XII grossly intact, NIH of 3, for vision changes and drift of the right lower extremity. Skin: Intact with no visualized rashes Psych: Normal affect and mood ED course: 70-year-old male with strokelike symptoms ongoing since yesterday. Patient outside of the alteplase administration window. Vital signs upon arrival are within acceptable limits. EKG interpretation: Ventricular rate 85, normal sinus rhythm, DC interval 140, QRS 102, QTC 476. No DC prolongation, no QTC prolongation, no ST or T-wave changes noted. EKG compared to March 23 2020 showing no changes. Overall, this EKG is unremarkable Computed tomography scan of the brain shows no acute processes. CT angios the head and neck shows 20% stenosis of the proximal right internal carotid and 35% stenosis of the proximal left internal carotid no intracranial significant angiographic abnormality. Laboratory evaluation obtained. CBC, coag panel is unremarkable. Metabolic panel shows elevated renal markers. There is a component of acute kidney injury. Patient given intravenous fluids. Patient reevaluated at bedside at 10:00 PM found to be in stable medical condition. Patient not a candidate for out to place or thrombectomy patient be admitted for neurology consultation, ophthalmology consultation and nephrology consultation. - Related Data Home Medications Medication Instructions Recorded Confirmed Atorvastatin [Lipitor] 80 mg PO HS 05/08/15 08/10/20 Fluticasone/Vilanterol [Breo 1 puff INHALATION RT-HS 03/12/18 08/10/20 Ellipta 100-25 Mcg Inhaler] Pramipexole Di-HCl [Mirapex] 1 mg PO HS 09/02/19 08/10/20 Apixaban [Eliquis] 5 mg PO Q12H 11/01/19 08/10/20 Omeprazole 20 mg PO AC-BRKFST 11/23/19 08/10/20 Tamsulosin [Flomax] 0.4 mg PO DAILY 11/23/19 08/10/20 Aspirin EC [Ecotrin Low Dose] 81 mg PO DAILY 12/09/19 08/10/20 Colchicine 0.6 mg PO BID 03/23/20 08/10/20 Magnesium 250 mg PO DAILY 03/23/20 08/10/20 hydrALAZINE HCL 50 mg PO Q8HR 03/23/20 08/10/20 Insulin Glargine [Lantus] 30 unit SQ HS PRN 03/25/20 08/10/20 Albuterol Nebulizer 1 dose INHALATION QID 04/14/20 08/10/20 Furosemide [Lasix] 40 mg PO BID 04/14/20 08/10/20 Folic Acid 1 mg PO DAILY 04/19/20 08/10/20 Spironolactone 25 mg PO DAILY 04/19/20 08/10/20 Allopurinol [Zyloprim] 100 mg PO DAILY 06/15/20 08/10/20 Isosorbide Mononitrate [Isosorbide 30 mg PO DAILY 06/15/20 08/10/20 Mononitrate ER] Melatonin 3 mg PO DAILY 06/15/20 08/10/20 Nitroglycerin Sl Tabs [Nitrostat] 0.4 mg SUBLINGUAL Q5M PRN 06/15/20 08/10/20 oxyCODONE-APAP 10-325MG [Percocet 1 each PO Q6HR PRN 06/15/20 08/10/20 10-325 mg] predniSONE 50 mg PO DAILY 06/15/20 08/10/20 Previous Rx's Medication Instructions Recorded Metoprolol Tartrate [Lopressor] 25 mg PO HS 30 Days #30 tab 03/30/20 Metoprolol Tartrate [Lopressor] 50 mg PO DAILY 30 Days #30 tab 03/30/20 QUEtiapine [SEROquel] 25 mg PO BID 30 Days #60 tab 03/30/20 Allergies Allergy/AdvReac Type Severity Reaction Status Date / Time acetaminophen [From Tylenol] AdvReac kidney/liver Verified 08/21/20 19:50 issues Review of Systems ROS Statement: Those systems with pertinent positive or pertinent negative responses have been documented in the HPI. ROS Other: All systems not noted in ROS Statement are negative. Past Medical History Past Medical History: Coronary Artery Disease (CAD), Chest Pain / Angina, Heart Failure, COPD, Deep Vein Thrombosis (DVT), GERD/Reflux, Hyperlipidemia, Hypertension, Osteoarthritis (OA), Pneumonia, Prostate Disorder, Renal Disease, Respiratory Disorder, Sleep Apnea/CPAP/BIPAP Additional Past Medical History / Comment(s): Hx severe sepsis secondary to discitis, Hx urinary retention with granados during sepsis, Hx DVT R arm/sepsis d/t cellulitis in legs, venous insufficiency, spouse states severe swelling in legs and feet., spondylolsis, cervical and low back pain, DDD, chronic respiratory failure, CALLI with Cpap/O2 at 4L/NC at HS, Oxygen @ 4L prn during the day., nonsustained vtach, TIAs, small vessel disease, IDDM type II, neuropathy, BPH, diverticular disease, colon polyps, sinus problems, seasonal allergies., Mixed Connective Tissue Disease., spouse states hallucinations & confusion with sepsis and fever., pain in neck, back , shoulders and knees and everywhere., discharged from [facility] 03/31/20- hospitalized for pneumonia,SOB and sepsis, currently taking antibiotic for diarrhea which is getting better History of Any Multi-Drug Resistant Organisms: None Reported Past Surgical History: Back Surgery, Heart Catheterization With Stent, Joint Replacement, Orthopedic Surgery Additional Past Surgical History / Comment(s): Bilateral knee arthroscopies, total L knee arthroplasty, R total shoulder arthroplasty, L hand injury with repair, low back surgery, PCI with 3 stents, colonoscopies/polypectomies, lumbar epidural injections, bilateral cataract removals/lens implants. Past Anesthesia/Blood Transfusion Reactions: No Reported Reaction Additional Past Anesthesia/Blood Transfusion Reaction / Comment(s): STATES "HAD A HARD TIME WITH BREATHING POST OP" Date of Last Stent Placement:: 2009 Past Psychological History: No Psychological Hx Reported Smoking Status: Former smoker Past Alcohol Use History: None Reported Past Drug Use History: Marijuana - Past Family History Father Family Medical History: CVA/TIA, Hyperlipidemia, Hypertension Mother Family Medical History: No Reported History General Exam Limitations: no limitations Course Vital Signs 08/21/20 19:45 Temperature 98 F Pulse Rate 91 Respiratory 18 Rate Blood Pressure 149/84 O2 Sat by Pulse 96 Oximetry Medical Decision Making - Lab Data Result diagrams: 08/21/20 20:09 08/21/20 20:09 Lab Results 08/21/20 08/21/20 08/21/20 Range/Units 20:09 20:09 20:09 WBC 11.9 H (3.8-10.6) k/uL RBC 4.60 (4.30-5.90) m/uL Hgb 12.8 L (13.0-17.5) gm/dL Hct 40.8 (39.0-53.0) % MCV 88.7 (80.0-100.0) fL MCH 27.8 (25.0-35.0) pg MCHC 31.3 (31.0-37.0) g/dL RDW 20.6 H (11.5-15.5) % Plt Count 162 (150-450) k/uL MPV 10.3 Neutrophils % 81 % Lymphocytes % 11 % Monocytes % 5 % Eosinophils % 1 % Basophils % 0 % Neutrophils # 9.7 H (1.3-7.7) k/uL Lymphocytes # 1.3 (1.0-4.8) k/uL Monocytes # 0.7 (0-1.0) k/uL Eosinophils # 0.1 (0-0.7) k/uL Basophils # 0.0 (0-0.2) k/uL Hypochromasia Slight Anisocytosis Moderate PT 9.4 (9.0-12.0) sec INR 0.9 (<1.2) APTT 18.2 L (22.0-30.0) sec Sodium 139 (137-145) mmol/L Potassium 4.3 (3.5-5.1) mmol/L Chloride 105 (98-107) mmol/L Carbon Dioxide 24 (22-30) mmol/L Anion Gap 10 mmol/L BUN 64 H (9-20) mg/dL Creatinine 2.28 H (0.66-1.25) mg/dL Est GFR (CKD-EPI)AfAm 32 (>60 ml/min/1.73 sqM) Est GFR (CKD-EPI)NonAf 28 (>60 ml/min/1.73 sqM) Glucose 128 H (74-99) mg/dL Calcium 9.5 (8.4-10.2) mg/dL Total Bilirubin 0.3 (0.2-1.3) mg/dL AST 105 H (17-59) U/L ALT 143 H (4-49) U/L Alkaline Phosphatase 121 (38-126) U/L Troponin I (0.000-0.034) ng/mL Total Protein 6.7 (6.3-8.2) g/dL Albumin 4.4 (3.5-5.0) g/dL 08/21/20 Range/Units 20:09 WBC (3.8-10.6) k/uL RBC (4.30-5.90) m/uL Hgb (13.0-17.5) gm/dL Hct (39.0-53.0) % MCV (80.0-100.0) fL MCH (25.0-35.0) pg MCHC (31.0-37.0) g/dL RDW (11.5-15.5) % Plt Count (150-450) k/uL MPV Neutrophils % % Lymphocytes % % Monocytes % % Eosinophils % % Basophils % % Neutrophils # (1.3-7.7) k/uL Lymphocytes # (1.0-4.8) k/uL Monocytes # (0-1.0) k/uL Eosinophils # (0-0.7) k/uL Basophils # (0-0.2) k/uL Hypochromasia Anisocytosis PT (9.0-12.0) sec INR (<1.2) APTT (22.0-30.0) sec Sodium (137-145) mmol/L Potassium (3.5-5.1) mmol/L Chloride (98-107) mmol/L Carbon Dioxide (22-30) mmol/L Anion Gap mmol/L BUN (9-20) mg/dL Creatinine (0.66-1.25) mg/dL Est GFR (CKD-EPI)AfAm (>60 ml/min/1.73 sqM) Est GFR (CKD-EPI)NonAf (>60 ml/min/1.73 sqM) Glucose (74-99) mg/dL Calcium (8.4-10.2) mg/dL Total Bilirubin (0.2-1.3) mg/dL AST (17-59) U/L ALT (4-49) U/L Alkaline Phosphatase (38-126) U/L Troponin I <0.012 (0.000-0.034) ng/mL Total Protein (6.3-8.2) g/dL Albumin (3.5-5.0) g/dL Critical Care Time Critical Care Time: Yes Total Critical Care Time: 33 Disposition Clinical Impression: Vision changes Disposition: ADMITTED IP TO THIS [facility] Condition: Fair Referrals: Rk Keene III, MD [Primary Care Provider] - 1-2 days
[2020-08-21 20:36] LABS: Anisocytosis Moderate; Basophils % (A) 0 %; Eosinophils # (A) 0.1 k/uL (0-0.7); Eosinophils % (A) 1 %; HCT 40.8 % (39.0-53.0); HGB 12.8 gm/dL (13.0-17.5); Hypochromasia Slight; Lymphocytes # (A) 1.3 k/uL (1.0-4.8); Lymphocytes % (A) 11 %; MCH 27.8 pg (25.0-35.0); MCHC 31.3 g/dL (31.0-37.0); MCV 88.7 fL (80.0-100.0); Mean Platelet Volume 10.3; Monocytes # (A) 0.7 k/uL (0-1.0); Monocytes % (A) 5 %; Neutrophils # (A) 9.7 k/uL (1.3-7.7); Neutrophils % (A) 81 %; Platelet Count 162 k/uL (150-450); RDW 20.6 % (11.5-15.5); WBC 11.9 k/uL (3.8-10.6)
--- NOTE | 2020-08-21 20:40 | XR ---
EXAMINATION TYPE: XR chest 2V DATE OF EXAM: 08/21/2020 COMPARISON: 05/05/2020 HISTORY: Altered mental status TECHNIQUE: FINDINGS: There is no heart failure nor confluent pneumonic infiltrate. There is some linear density right lung base. There are chest leads. There is right shoulder prosthesis. IMPRESSION: Subsegmental atelectasis or scarring right lung base without change. Normal heart. No hea rt failure.
[2020-08-21 20:43] LABS: INR 0.9 (<1.2); Prothrombin Time 9.4 sec (9.0-12.0)
[2020-08-21 20:54] LABS: Albumin 4.4 g/dL (3.5-5.0); Calcium 9.5 mg/dL (8.4-10.2); Potassium 4.3 mmol/L (3.5-5.1); Total Bilirubin 0.3 mg/dL (0.2-1.3); Total Protein 6.7 g/dL (6.3-8.2)
[2020-08-21 20:56] LABS: Partial Thromboplastin Time 18.2 sec (22.0-30.0)
--- NOTE | 2020-08-21 21:29 | CT ---
EXAMINATION TYPE: CT brain wo con for TPA DATE OF EXAM: 08/21/2020 COMPARISON: 03/26/2020 HISTORY: cva CT DLP: 1153.2 mGycm Automated exposure control for dose reduction was used. There is some cerebral cortical atrophy. There is no mass effect nor midline shift. There is no sign of intracranial hemorrhage. The calvarium is intact. There is no evidence of cerebral edema. IMPRESSION: Cerebral mild atrophy. No acute intracranial abnormality. No change.
--- NOTE | 2020-08-21 21:56 | CT ---
EXAMINATION TYPE: CT angio head neck DATE OF EXAM: 08/21/2020 COMPARISON: None HISTORY: cva CT DLP: 635.7 mGycm Automated exposure control for dose reduction was used. CONTRAST: Performed with IV Contrast, patient injected with 65cc mL of Isovue 370. Images obtained from the thoracic inlet to the vertex of the brain with IV contrast. There are 3-D post processed images. There is normal branching pattern of the great vessels on the aortic arch. There is atheromatous jeff ges in the thoracic aorta. There is arterial flow in both subclavian arteries. There is arterial flow in the common internal and external carotid arteries bilaterally. There is tortuosity of the interna l carotid arteries. There is medial deviation of the internal carotid arteries in front of the cervic al spine. There is some plaque formation and approximate 20% stenosis at the origin right internal ca rotid artery. There is approximate 35 % stenosis at the left carotid artery bifurcation. There is art erial flow in both vertebral arteries. There is no evidence of carotid or vertebral artery aneurysm o r dissection. There is arterial flow in the anterior middle and posterior cerebral arteries. I see no evidence of i ntracranial aneurysm or neovascularity. There is no mass effect. There is normal enhancement of the v enous sinuses. I see no intracranial hemodynamic stenosis. IMPRESSION: Tortuous carotid arteries. There is approximate 20% stenosis proximal right internal carotid artery a nd 35% stenosis proximal left internal carotid artery. No intracranial significant angiographic abnor mality.
[2020-08-21] MEDS ORDERED: ASPIRIN 81 MG PO STA (22:02)
[2020-08-21] MEDS ORDERED: ONDANSETRON 4 MG/2 ML VIAL IVP PRN (22:07)
[2020-08-21] MEDS ORDERED: NALOXONE 0.4 MG/ML 1 ML VIAL IV PRN (22:07)
[2020-08-22] MEDS: SODIUM CHLORIDE 0.9% 1,000 ML IV SCH ×2 (00:38→23:11)
[2020-08-22] MEDS: oxyCODONE-APAP 10-325MG 1 EACH TAB PO PRN ×4 (01:52→18:50)
[2020-08-22] MEDS ORDERED: MELATONIN 3 MG TABLET PO PRN (08:06)
[2020-08-22 08:08] LABS: Glucose,Whole Blood 136 mg/dL (75-99)
[2020-08-22] MEDS ORDERED: FUROSEMIDE 40 MG TAB PO SCH (09:00)
[2020-08-22] MEDS: predniSONE 20 MG TAB PO SCH (09:00)
[2020-08-22] MEDS: ISOSORBIDE MONONITRATE ER 30 MG TAB.ER.24H PO SCH (09:00)
[2020-08-22] MEDS: ASPIRIN 81 MG PO SCH (09:00)
[2020-08-22] MEDS: QUEtiapine 25 MG TAB PO SCH ×2 (09:00→21:31)
[2020-08-22] MEDS: MAGNESIUM OXIDE 400 MG TAB PO SCH (09:01)
[2020-08-22] MEDS: SPIRONOLACTONE 25 MG TAB PO SCH (09:01)
[2020-08-22] MEDS: TAMSULOSIN 0.4 MG CAP.ER.24H PO SCH (09:01)
[2020-08-22] MEDS: CYCLOBENZAPRINE 10 MG TAB PO SCH ×2 (09:01→21:31)
--- NOTE | 2020-08-22 09:53 | P.HPIM ---
History of Present Illness This is a pleasant 70 years old male with past medical history of hypertension, hyperlipidemia, coronary artery disease status post stent, COPD, deep venous thrombosis, currently not on anticoagulation, osteoarthritis, GERD, sleep apnea on CPAP/BiPAP, chronic low back. Chronic hypoxic respiratory failure, nonsustained V. tach, TIA, type 2 diabetes mellitus with neuropathy, benign prostatic hypertrophy, mixed connective tissue disease and he f/u with , he is on prednisone 20 mg daily for this reason. Patient told me he does not use oxygen at home. And also he is noncompliant with his CPAP/BiPAP machine. Also he takes insulin as needed, he says whenever his sugars more than 120 he takes Levemir 30 units at bedtime. His PCP is Dr. Keene. Also he sees Dr. Harrison and Dr. De Los Santos He presents with right eye floaters started last Friday about 3 days ago and gradually was getting worse to the degree he cystlike spiders as he describes. Also like veil. He states that his eye is little blurry but no double vision. Also is complaining of from right leg weakness but no arm weakness He denies headache, no slurred speech. No chest pain or dyspnea. No abdominal pain. No urinary complaints. No fever Vitas looks stable, blood pressure is 160/79 this morning. Labs showing mild leukocytosis of 11.9 K. Patient has history of WBC going up frequently. Also he is on steroids. Hemoglobin is 12.8, rest of CBC and INR are unremarkable. Creatinine is elevated at 2.2, baseline is 1.2-1.5. Patient probably has chronic kidney disease stage III Liver enzymes mildly elevated with AST 105 and ALT 143. Troponin is negative less than 0.012. Cordarone over is not detected. CTA of the head and neck: No significant stenosis. Right ICA is 20% stenosis and left ICA is 35% stenosis CT of the brain: No acute process Chest x-ray: No acute process. EKG showing normal sinus rhythm at [address]-T changes Emergency room patient received aspirin 324 mg and given 1 L of normal slide and continued on 120 mL per hour. Patient was taking Lantus 40 units at bedtime as when necessary Review of Systems CONSTITUTIONAL: No fever, no malaise, no fatigue. HEENT: No recent visual problems or hearing problems. Denied any sore throat. CARDIOVASCULAR: No orthopnea, PND, no palpitations, no syncope. PULMONARY: No shortness of breath, no cough, no hemoptysis. GASTROINTESTINAL: No diarrhea, no nausea, no vomiting, no abdominal pain. Normoactive bowel sounds. NEUROLOGICAL: No headaches, no weakness, no numbness. HEMATOLOGICAL: Denies any bleeding or petechiae. GENITOURINARY: Denies any burning micturition, frequency, or urgency. MUSCULOSKELETAL/RHEUMATOLOGICAL: Denies any joint pain, swelling, or any muscle pain. ENDOCRINE: Denies any polyuria or polydipsia. Past Medical History Past Medical History: Coronary Artery Disease (CAD), Chest Pain / Angina, Heart Failure, COPD, Deep Vein Thrombosis (DVT), GERD/Reflux, Hyperlipidemia, Hypertension, Osteoarthritis (OA), Pneumonia, Prostate Disorder, Renal Disease, Respiratory Disorder, Sleep Apnea/CPAP/BIPAP Additional Past Medical History / Comment(s): Hx severe sepsis secondary to discitis, Hx urinary retention with granados during sepsis, Hx DVT R arm/sepsis d/t cellulitis in legs, venous insufficiency, spouse states severe swelling in legs and feet., spondylolsis, cervical and low back pain, DDD, chronic respiratory failure, CALLI with Cpap/O2 at 4L/NC at HS, Oxygen @ 4L prn during the day., nonsustained vtach, TIAs, small vessel disease, IDDM type II, neuropathy, BPH, diverticular disease, colon polyps, sinus problems, seasonal allergies., Mixed Connective Tissue Disease., spouse states hallucinations & confusion with sepsis and fever., pain in neck, back , shoulders and knees and everywhere., discharged from [facility] 03/31/20- hospitalized for pneumonia,SOB and sepsis, currently taking antibiotic for diarrhea which is getting better History of Any Multi-Drug Resistant Organisms: None Reported Past Surgical History: Back Surgery, Heart Catheterization With Stent, Joint Replacement, Orthopedic Surgery Additional Past Surgical History / Comment(s): Bilateral knee arthroscopies, total L knee arthroplasty, R total shoulder arthroplasty, L hand injury with repair, low back surgery, PCI with 3 stents, colonoscopies/polypectomies, lumbar epidural injections, bilateral cataract removals/lens implants. Past Anesthesia/Blood Transfusion Reactions: No Reported Reaction Additional Past Anesthesia/Blood Transfusion Reaction / Comment(s): STATES "HAD A HARD TIME WITH BREATHING POST OP" Date of Last Stent Placement:: 2009 Past Psychological History: No Psychological Hx Reported Smoking Status: Former smoker Past Alcohol Use History: None Reported Past Drug Use History: Marijuana - Past Family History Father Family Medical History: CVA/TIA, Hyperlipidemia, Hypertension Mother Family Medical History: No Reported History Medications and Allergies Home Medications Medication Instructions Recorded Confirmed Type Atorvastatin [Lipitor] 80 mg PO HS 05/08/15 08/21/20 History Fluticasone/Vilanterol [Breo 1 puff INHALATION RT-HS 03/12/18 08/21/20 History Ellipta 100-25 Mcg Inhaler] Pramipexole Di-HCl [Mirapex] 1 mg PO HS 09/02/19 08/21/20 History Omeprazole 20 mg PO AC-BRKFST 11/23/19 08/21/20 History Tamsulosin [Flomax] 0.4 mg PO DAILY 11/23/19 08/21/20 History Aspirin EC [Ecotrin Low Dose] 81 mg PO DAILY 12/09/19 08/21/20 History Colchicine 0.6 mg PO BID 03/23/20 08/21/20 History Magnesium 250 mg PO DAILY 03/23/20 08/21/20 History hydrALAZINE HCL 50 mg PO Q8HR 03/23/20 08/21/20 History Insulin Glargine [Lantus] 40 unit SQ HS PRN 03/25/20 08/21/20 History Metoprolol Tartrate [Lopressor] 25 mg PO HS 30 Days #30 tab 03/30/20 08/21/20 Rx Metoprolol Tartrate [Lopressor] 50 mg PO DAILY 30 Days #30 tab 03/30/20 08/21/20 Rx QUEtiapine [SEROquel] 25 mg PO BID 30 Days #60 tab 03/30/20 08/21/20 Rx Folic Acid 1 mg PO DAILY 04/19/20 08/21/20 History Spironolactone 25 mg PO DAILY 04/19/20 08/21/20 History Isosorbide Mononitrate [Isosorbide 30 mg PO DAILY 06/15/20 08/21/20 History Mononitrate ER] Melatonin 3 mg PO HS PRN 06/15/20 08/21/20 History Nitroglycerin Sl Tabs [Nitrostat] 0.4 mg SUBLINGUAL Q5M PRN 06/15/20 08/21/20 History oxyCODONE-APAP 10-325MG [Percocet 2 each PO Q4H PRN 06/15/20 08/21/20 History 10-325 mg] Albuterol Nebulized [Ventolin 2.5 mg INHALATION RT-QID PRN 08/21/20 08/21/20 History Nebulized] Cyclobenzaprine HCl 10 mg PO BID 08/21/20 08/21/20 History Ergocalciferol [Vitamin D2 (1250 1,250 mcg PO Q14D 08/21/20 08/21/20 History Mcg = 00652 Iu)] Febuxostat [Uloric] 40 mg PO DAILY 08/21/20 08/21/20 History Furosemide [Lasix] 40 mg PO BID 08/21/20 08/21/20 History Furosemide [Lasix] 40 mg PO DAILY PRN 08/21/20 08/21/20 History Ipratropium-Albuterol Nebulize 3 ml INHALATION RT-QID PRN 08/21/20 08/21/20 History [Duoneb 0.5 mg-3 mg/3 ml Soln] Multivitamins, Thera [Multivitamin 1 tab PO DAILY 08/21/20 08/21/20 History (formulary)] calcitrioL [Rocaltrol] 0.25 mcg PO TU 08/21/20 08/21/20 History predniSONE [Deltasone] 20 mg PO DAILY 08/21/20 08/21/20 History Allergies Allergy/AdvReac Type Severity Reaction Status Date / Time acetaminophen [From Tylenol] AdvReac kidney/liver Verified 08/21/20 22:36 issues Physical Exam Vitals: Vital Signs Temp Pulse Resp BP Pulse Ox 08/22/20 07:37 79 20 164/79 97 08/22/20 05:17 65 18 137/79 97 08/21/20 23:55 98.2 F 67 16 139/78 95 08/21/20 19:45 98 F 91 18 149/84 96 Intake and Output 08/21/20 08/22/20 08/22/20 22:59 06:59 14:59 Other: Weight 102.512 kg -GENERAL: The patient is alert and oriented x3, not in any acute distress. Obese HEENT: Pupils are round and equally reacting to light. EOMI. No scleral icterus. No conjunctival pallor. Normocephalic, atraumatic. No pharyngeal erythema. No thyromegaly. CARDIOVASCULAR: S1 and S2 present. No murmurs, rubs, or gallops. PULMONARY: Chest is clear to auscultation, no wheezing or crackles. ABDOMEN: Soft, nontender, nondistended, normoactive bowel sounds. No palpable organomegaly. MUSCULOSKELETAL: No joint swelling or deformity. -EXTREMITIES: No cyanosis, clubbing,. Bilateral pigtail Brooks 3+ edema -NEUROLOGICAL: Patient reports blurred vision in the right eye. Rest of cranial nerves are grossly intact. Right leg is weak. Rest of 3 extremities show no strength 5/5 with sensation intact SKIN: No rashes. No petechiae Results CBC & Chem 7: 08/21/20 20:09 08/21/20 20:09 Labs: Abnormal Lab Results - Last 24 Hours (Table) 08/21/20 08/21/20 08/21/20 Range/Units 20:09 20:09 20:09 WBC 11.9 H (3.8-10.6) k/uL Hgb 12.8 L (13.0-17.5) gm/dL RDW 20.6 H (11.5-15.5) % Neutrophils # 9.7 H (1.3-7.7) k/uL APTT 18.2 L (22.0-30.0) sec BUN 64 H (9-20) mg/dL Creatinine 2.28 H (0.66-1.25) mg/dL Glucose 128 H (74-99) mg/dL AST 105 H (17-59) U/L ALT 143 H (4-49) U/L Assessment and Plan Assessment: Acute right eye blurred vision with floaters Possible acute stroke with right eye blurred vision and right leg weakness. Bilateral leg swelling Acute on chronic kidney disease Chronic kidney disease, stage III. Noncompliance for example to CPAP machine, dosing with therapy. Diabetes mellitus Hypertension Hyperlipidemia History of coronary artery disease status post stent placement History of the venous thrombosis, currently not on anticoagulation History of GERD Sleep apnea, Noncompliant with CPAP/BiPAP machine History of urinary retention Osteoarthritis with chronic low back pain History of nonsustained V. tach History of TIA Benign prostatic hypertrophy History of mixed connective tissue disease History of osteomyelitis/lumbar spine discitis, finished 6 weeks of therapy Plan: This is a pleasant 70 years old male who presents with strokelike symptoms with right-sided weakness and right blurred vision. Continue with aspirin, neurology team consulted. Patient was on 30 units of Lantus at bedtime, we will continue with insulin sliding scale and we will start on Levemir 20 units react check hemoglobin A1c Consults ophthalmology for his eye problem. Labs and medication were reviewed.. Continue same treatment. Continue with symptomatic treatment. Resume home medication. Monitor lytes and vitals. DVT and GI prophylaxis. Further recommendations depends on the clinical course of the patient DVT prophylaxis: Subcutaneous heparin GI Prophylaxis: Pepcid PT/OT: Pending Prognosis is guarded
[2020-08-22] MEDS: FUROSEMIDE 10 MG/ML 4 ML VIAL IV SCH ×2 (10:28→21:33)
[2020-08-22] MEDS: COLCHICINE 0.6 MG EACH PO SCH ×2 (10:32→21:32)
--- NOTE | 2020-08-22 10:57 | US ---
EXAMINATION TYPE: US venous doppler duplex LE DATE OF EXAM: 08/22/2020 10:29 AM COMPARISON: NONE CLINICAL HISTORY: Rule out DVT. TECHNIQUE: The lower extremity deep venous system is examined utilizing real time linear array sonog althea with graded compression, doppler sonography and color-flow sonography. VESSELS IMAGED: Common Femoral Vein Deep Femoral Vein Greater Saphenous Vein * Femoral Vein Popliteal Vein Small Saphenous Vein * Proximal Calf Veins (* superficial vessels) CHF, swelling, pitting edema, large body habitus. Right Leg: Negative for DVT Left Leg: Negative for DVT IMPRESSION: 1. No evidence of deep venous thrombosis in the bilateral lower extremity veins.
[2020-08-22 11:52] LABS: Calcium 9.1 mg/dL (8.4-10.2); Potassium 4.5 mmol/L (3.5-5.1)
--- NOTE | 2020-08-22 13:42 | CONS ---
CONSULTATION REASON FOR CONSULT: Renal failure. HISTORY OF PRESENT ILLNESS: Patient is a 70-year-old male with history of chronic kidney disease and NKF stage 3B, with previous creatinine about 1.3-1.5 mg/dL. Etiology is nephrosclerosis. The patient was admitted to the hospital with complaints of decreased vision in his right eye. The patient stated that he felt like there was a curtain on his left eye. He denied any headache, nausea, vomiting. He had stated that there may have been some weakness in his right lower extremity. Otherwise, no significant paralysis noted. The patient also has underlying history of mixed connective tissue disease and follows with Dermatology. Serum creatinine this admission 2.28 mg/dL. Previous creatinine as mentioned, 1.5 on 05/19/2020. Patient is not on any REBECCA inhibitors or nonsteroidal anti-inflammatory agents prior to admission. PAST MEDICAL HISTORY: Significant for mixed connective tissue disease, coronary artery disease, COPD, CHF, history of DVT, hypertension, hyperlipidemia, osteoarthritis, obstructive sleep apnea, previous history of sepsis from discitis, history of urine retention. PAST SURGICAL HISTORY: Back surgery, cardiac catheterization, coronary stent placement, bilateral knee arthroscopy, total left knee arthroplasty, right shoulder arthroplasty, colonoscopy, polypectomies, lumbar epidural injection and cataract surgeries. SOCIAL HISTORY: The patient is a former smoker. No history of drug abuse or alcohol abuse. MEDICATIONS: Medications prior to admission included: Lipitor, Flomax, omeprazole, colchicine, aspirin, hydralazine, insulin, metoprolol, folic acid, spironolactone melatonin, Imdur, Nitrostat, [place], Uloric, Lasix, Rocaltrol, . ALLERGIES: INCLUDE ACETAMINOPHEN. PHYSICAL EXAMINATION: Patient is currently comfortable, awake. He is not in any acute distress. Blood pressure 150/83, heart rate 73 per minute. He is afebrile. Examination of the heart S1, S2. Examination of the lungs, bilateral breath sounds are heard. Abdomen is soft, nontender. Examination of lower extremities shows edema 3+ bilaterally. [employer] exam grossly intact. LAB: Show sodium 139, potassium 4.3, BUN 64 serum creatinine 2.28 from 08/21/2020. Hemoglobin 12.8 g/dL. ASSESSMENT: 1. Acute kidney injury, most likely cardiorenal and currently patient is volume overloaded. We will diurese him. Hold off on IV fluids for now. Rule out urine retention. 2. Chronic kidney disease stage IIIA with serum creatinine baseline 1.4-1.5 mg/dL secondary to nephrosclerosis. UA previously has shown no proteinuria. 3. Chronic kidney disease mineral bone disorder. 4. Transient ischemic attack with brain CT negative and angiogram not showing any significant occlusion. 5. Hypertension. 6. History of gout, maintained on Uloric. 7. History of mixed connective tissue disease maintained on prednisone as outpatient. PLAN: Discontinue IV fluids. Maintain IV Lasix for now. Repeat labs in a.m. as well as today. Monitor urine output. Thank you for this consultation. Will continue to follow the patient with you during his hospitalization. MMODL / IJN: [id number] /
[2020-08-22 14:53] LABS: Glucose,Whole Blood 265 mg/dL (75-99)
[2020-08-22] MEDS: hydrALAZINE HCL 50 MG TAB PO SCH (18:51)
[2020-08-22] MEDS: ALBUTEROL NEBULIZED 2.5 MG/3 ML INHALATION PRN (20:45)
[2020-08-22] MEDS ORDERED: INSULIN DETEMIR (LEVEMIR) 100 UNIT/ML SYR SQ SCH ×2 (21:00)
[2020-08-22 21:19] LABS: Glucose,Whole Blood 279 mg/dL (75-99)
[2020-08-22] MEDS: PRAMIPEXOLE 1 MG TAB PO SCH (21:31)
[2020-08-22] MEDS: ATORVASTATIN 80 MG TAB PO SCH (21:31)
[2020-08-22] MEDS ORDERED: CLOPIDOGREL 75 MG TAB PO STA (23:45)
--- NOTE | 2020-08-23 00:12 | P.CNNES ---
History of Present Illness Consult date: 08/22/20 Requesting physician: Chau Driscoll Reason for Consult: Stroke symptoms History of Present Illness: Patient is a 70-year-old male came to the hospital yesterday at 7:43 PM presented to the hospital with progressive right eye vision disturbance/loss. Patient states that on 08/19/2020, 3 days ago he started noticing a small floater in the right eye. It started very little size, then it kept on getting worse. He then noticed spiderlike dark shadow in the visual field of the right eye. Subsequently he started seeing a nathan of black dots interfering the vision of the right eye. He believes the vision is progressively getting worse. He has mild blurring in the left eye, but attributes to having dry eyes. Denies any other focal symptoms. He was feeling slight soreness in the right eye. He complains of slight headache, which she attributes to the problem with the neck, which is not new, has been there for long time. Patient denies having any similar visual symptoms in the past. Vital signs on arrival blood pressure 149/84, pulse rate 91, temperature 98.0. CT head showed cerebral mild atrophy. No acute process. CTA of head and neck showed tortuous carotid arteries. There is approximately 20% stenosis proximal right ICA and 35% stenosis proximal left ICA. No intracranial significant angiographic abnormality. EKG shows normal sinus rhythm. Septal infarct, age undetermined. Venous Doppler showed no evidence of DVT. Chest x-ray showed subsegmental atelectasis or scarring right lung base without change. Normal heart. Blood test shows WBC 11.9 hemoglobin 12.8, platelets 162. PT/PTT normal, Chem-7 within normal electrolytes, BUN 64, creatinine 2.28. AST 105, ALT 143, troponins are negative. Hollingsworth virus PCR negative. Patient's last hemoglobin A1c 7.8 on 09/22/2019. Patient's last ESR was 82 on 03/30/2020, which was related to osteomyelitis. Last CRP 54.3 on 03/30/2020. Patient's B12 was 384 on 12/14/2019, vitamin B6 5, methylmalonic acid was elevated 0.48, folat e was 8.0. Patient has history of diabetes for last 3 years, smoked 2 packs per day for 30 years, quit 11 years ago. He has hypertension. Also has hyperlipidemia. Denies alcohol use. Patient does take aspirin 81 mg every day. Patient's previous MRI of the cervical spine from 12/13/2019 showed suspicious changes to suggest epidural abscess or osteomyelitis are not identified. Cervical kyphosis centered at C5 6. Minimal grade 1 spondylolisthesis of C4 anteriorly on C5. Central focal disc bulge C5 6 with cord contact and some cord compression. Moderate bilateral foraminal narrowing C4 5 due to uncovertebral joint hypertrophy. C4 5 disc bulging and endplate changes with mild anterior thecal sac flattening in close approximation with the cord without deformity or stenosis. Review of Systems As above in detail regarding headache, neck pain, visual disturbance, low back pain, right leg weakness which is chronic. All other review of systems reviewed and noncontributory. Past Medical History Past Medical History: Coronary Artery Disease (CAD), Chest Pain / Angina, Heart Failure, COPD, Deep Vein Thrombosis (DVT), GERD/Reflux, Hyperlipidemia, Hypertension, Osteoarthritis (OA), Pneumonia, Prostate Disorder, Renal Disease, Respiratory Disorder, Sleep Apnea/CPAP/BIPAP Additional Past Medical History / Comment(s): Hx severe sepsis secondary to discitis, Hx urinary retention with granados during sepsis, Hx DVT R arm/sepsis d/t cellulitis in legs, venous insufficiency, spouse states severe swelling in legs and feet., spondylolsis, cervical and low back pain, DDD, chronic respiratory failure, CALLI with Cpap/O2 at 4L/NC at HS, Oxygen @ 4L prn during the day., nonsustained vtach, TIAs, small vessel disease, IDDM type II, neuropathy, BPH, diverticular disease, colon polyps, sinus problems, seasonal allergies., Mixed Connective Tissue Disease., spouse states hallucinations & confusion with sepsis and fever., pain in neck, back , shoulders and knees and everywhere., discharged from [facility] 03/31/20- hospitalized for pneumonia,SOB and sepsis, currently taking antibiotic for diarrhea which is getting better History of Any Multi-Drug Resistant Organisms: None Reported Past Surgical History: Back Surgery, Heart Catheterization With Stent, Joint Replacement, Orthopedic Surgery Additional Past Surgical History / Comment(s): Bilateral knee arthroscopies, total L knee arthroplasty, R total shoulder arthroplasty, L hand injury with repair, low back surgery, PCI with 3 stents, colonoscopies/polypectomies, lumbar epidural injections, bilateral cataract removals/lens implants. Past Anesthesia/Blood Transfusion Reactions: No Reported Reaction Additional Past Anesthesia/Blood Transfusion Reaction / Comment(s): STATES "HAD A HARD TIME WITH BREATHING POST OP" Date of Last Stent Placement:: 2009 Past Psychological History: No Psychological Hx Reported Smoking Status: Former smoker Past Alcohol Use History: None Reported Past Drug Use History: Marijuana - Past Family History Father Family Medical History: CVA/TIA, Hyperlipidemia, Hypertension Mother Family Medical History: No Reported History Medications and Allergies Home Medications Medication Instructions Recorded Confirmed Type Atorvastatin [Lipitor] 80 mg PO HS 05/08/15 08/21/20 History Fluticasone/Vilanterol [Breo 1 puff INHALATION RT-HS 03/12/18 08/21/20 History Ellipta 100-25 Mcg Inhaler] Pramipexole Di-HCl [Mirapex] 1 mg PO HS 09/02/19 08/21/20 History Omeprazole 20 mg PO AC-BRKFST 11/23/19 08/21/20 History Tamsulosin [Flomax] 0.4 mg PO DAILY 11/23/19 08/21/20 History Aspirin EC [Ecotrin Low Dose] 81 mg PO DAILY 12/09/19 08/21/20 History Colchicine 0.6 mg PO BID 03/23/20 08/21/20 History Magnesium 250 mg PO DAILY 03/23/20 08/21/20 History hydrALAZINE HCL 50 mg PO Q8HR 03/23/20 08/21/20 History Insulin Glargine [Lantus] 40 unit SQ HS PRN 03/25/20 08/21/20 History Metoprolol Tartrate [Lopressor] 25 mg PO HS 30 Days #30 tab 03/30/20 08/21/20 Rx Metoprolol Tartrate [Lopressor] 50 mg PO DAILY 30 Days #30 tab 03/30/20 08/21/20 Rx QUEtiapine [SEROquel] 25 mg PO BID 30 Days #60 tab 03/30/20 08/21/20 Rx Folic Acid 1 mg PO DAILY 04/19/20 08/21/20 History Spironolactone 25 mg PO DAILY 04/19/20 08/21/20 History Isosorbide Mononitrate [Isosorbide 30 mg PO DAILY 06/15/20 08/21/20 History Mononitrate ER] Melatonin 3 mg PO HS PRN 06/15/20 08/21/20 History Nitroglycerin Sl Tabs [Nitrostat] 0.4 mg SUBLINGUAL Q5M PRN 06/15/20 08/21/20 History oxyCODONE-APAP 10-325MG [Percocet 2 each PO Q4H PRN 06/15/20 08/21/20 History 10-325 mg] Albuterol Nebulized [Ventolin 2.5 mg INHALATION RT-QID PRN 08/21/20 08/21/20 History Nebulized] Cyclobenzaprine HCl 10 mg PO BID 08/21/20 08/21/20 History Ergocalciferol [Vitamin D2 (1250 1,250 mcg PO Q14D 08/21/20 08/21/20 History Mcg = 01927 Iu)] Febuxostat [Uloric] 40 mg PO DAILY 08/21/20 08/21/20 History Furosemide [Lasix] 40 mg PO BID 08/21/20 08/21/20 History Furosemide [Lasix] 40 mg PO DAILY PRN 08/21/20 08/21/20 History Ipratropium-Albuterol Nebulize 3 ml INHALATION RT-QID PRN 08/21/20 08/21/20 History [Duoneb 0.5 mg-3 mg/3 ml Soln] Multivitamins, Thera [Multivitamin 1 tab PO DAILY 08/21/20 08/21/20 History (formulary)] calcitrioL [Rocaltrol] 0.25 mcg PO TU 08/21/20 08/21/20 History predniSONE [Deltasone] 20 mg PO DAILY 08/21/20 08/21/20 History Allergies Allergy/AdvReac Type Severity Reaction Status Date / Time acetaminophen [From Tylenol] AdvReac kidney/liver Verified 08/21/20 22:36 issues Physical Examination - Vital Signs Vital Signs: Vital Signs Temp Pulse Resp BP Pulse Ox 08/22/20 18:45 98 20 152/84 95 08/22/20 12:58 70 20 145/79 95 08/22/20 11:06 73 18 150/83 94 L 08/22/20 10:44 72 20 150/83 98 08/22/20 07:37 79 20 164/79 97 08/22/20 05:17 65 18 137/79 97 08/21/20 23:55 98.2 F 67 16 139/78 95 Patient is an elderly male, in no acute distress. Patient is alert awake oriented to time place and person. Speech and language functions are normal. Attention, concentration and fund of knowledge is adequate. On cranial examination, pupils are equal, round and minimally reacting to light, visual kimball are full on confrontation involving both eyes, extraocular muscles are intact with no nystagmus. Definitive APD could not be appreciated. Ophthalmoscope examination revealed ?possibility of disc edema on the right side. Face is symmetric, tongue protrudes to the midline. Palatal elevation and sensation normal, hearing and shoulder shrug normal, facial sensation normal. On muscle strength testing, there is no pronator drift and the strength is normal in arms and legs distally and proximally, except right hip flexion which is 4. Deep tendon reflexes are very hypoactive, plantars downgoing. Sensory to touch is equal with no neglect. Cerebellar function showed no ataxia for [id number] testing. No dysdiadochokinesia. Tone and bulk of muscles normal. Gait walks with slight antalgic gait because of back issues. On general examination, there is no carotid bruit or murmur, S1-S2 audible. Abdomen is soft nontender. Chest is clear. No edema. Results - Laboratory Findings CBC and BMP: 08/21/20 20:09 08/22/20 11:21 Abnormal Lab Findings: Abnormal Labs 08/21/20 08/21/20 08/21/20 20:09 20:09 20:09 WBC 11.9 H Hgb 12.8 L RDW 20.6 H Neutrophils # 9.7 H APTT 18.2 L BUN 64 H Creatinine 2.28 H Glucose 128 H POC Glucose (mg/dL) AST 105 H ALT 143 H 08/22/20 08/22/20 08/22/20 08:06 11:21 14:51 WBC Hgb RDW Neutrophils # APTT BUN 66 H Creatinine 1.77 H Glucose 108 H POC Glucose (mg/dL) 136 H 265 H AST ALT Assessment and Plan Assessment: * Acute onset of visual disturbance right eye, rule acute ischemic optic neuropathy, less likely temporal arteritis. * Diabetes * Hypertension * Hyperlipidemia * X tobacco use * Obesity * History of cataract surgery both eyes about a year ago. * History of discitis osteomyelitis Plan: * Patient's visual disturbance/loss is progressing. We tried to contact the church supervisor, if they could see the patient tonight or at least clear for Plavix. As the patient's visual disturbance is progressing, we will empirically give loading dose of Plavix 300 mg 1 dose. Continue aspirin. * Stat ESR, CRP. Patient's last ESR and CRP were both elevated in March 2020, which was related to his osteomyelitis at that time. Now if the ESR is elevated, would not be clear, if related to new issues, or related to previous issues. * Patient has been started on prednisone 20 mg daily, pending ophthalmology consult. * Hemoglobin A1c * CTA of head and neck showed tortuous carotid arteries. There is approximate 20% stenosis proximal right ICA and 35% stenosis proximal left ICA.
[2020-08-23] MEDS: hydrALAZINE HCL 50 MG TAB PO SCH ×4 (00:28→23:01)
[2020-08-23] MEDS: oxyCODONE-APAP 10-325MG 1 EACH TAB PO PRN ×4 (01:07→23:03)
[2020-08-23 04:49] LABS: Anisocytosis Moderate; Basophils % (A) 0 %; Eosinophils # (A) 0.1 k/uL (0-0.7); Eosinophils % (A) 1 %; HCT 38.9 % (39.0-53.0); HGB 12.3 gm/dL (13.0-17.5); Hypochromasia Moderate; Lymphocytes # (A) 1.4 k/uL (1.0-4.8); Lymphocytes % (A) 17 %; MCH 28.5 pg (25.0-35.0); MCHC 31.8 g/dL (31.0-37.0); MCV 89.9 fL (80.0-100.0); Mean Platelet Volume 9.9; Monocytes # (A) 0.6 k/uL (0-1.0); Monocytes % (A) 7 %; Neutrophils # (A) 6.2 k/uL (1.3-7.7); Neutrophils % (A) 74 %; Platelet Count 135 k/uL (150-450); RBC 4.33 m/uL (4.30-5.90); RDW 20.8 % (11.5-15.5); WBC 8.3 k/uL (3.8-10.6)
[2020-08-23 05:06] LABS: Calcium 8.9 mg/dL (8.4-10.2); Potassium 3.9 mmol/L (3.5-5.1)
[2020-08-23] MEDS: ALBUTEROL NEBULIZED 2.5 MG/3 ML INHALATION PRN ×4 (08:13→20:12)
[2020-08-23 08:40] LABS: Glucose,Whole Blood 203 mg/dL (75-99)
[2020-08-23] MEDS: FUROSEMIDE 10 MG/ML 4 ML VIAL IV SCH ×2 (09:42→20:43)
[2020-08-23] MEDS: ASPIRIN 81 MG PO SCH (09:42)
[2020-08-23] MEDS: ISOSORBIDE MONONITRATE ER 30 MG TAB.ER.24H PO SCH (09:42)
[2020-08-23] MEDS: predniSONE 20 MG TAB PO SCH (09:42)
[2020-08-23] MEDS: MAGNESIUM OXIDE 400 MG TAB PO SCH (09:42)
[2020-08-23] MEDS: TAMSULOSIN 0.4 MG CAP.ER.24H PO SCH (09:42)
[2020-08-23] MEDS: INSULIN ASPART (NovoLOG) 100 UNIT/ML VIAL SQ SCH ×3 (09:43→20:43)
[2020-08-23] MEDS: SPIRONOLACTONE 25 MG TAB PO SCH (09:43)
[2020-08-23 10:50] LABS: Folate, Serum 16.1 ng/mL
[2020-08-23] MEDS: QUEtiapine 25 MG TAB PO SCH ×2 (11:13→20:43)
[2020-08-23] MEDS: FOLIC ACID 1 MG TAB PO SCH (11:13)
[2020-08-23] MEDS: CALCIUM CARB-VIT D 500 MG-5 MCG TAB PO SCH ×3 (11:13→17:59)
[2020-08-23] MEDS: CYCLOBENZAPRINE 10 MG TAB PO SCH ×2 (11:13→20:43)
[2020-08-23] MEDS: PYRIDOXINE 50 MG TAB PO SCH (11:57)
[2020-08-23] MEDS: CYANOCOBALAMIN 1,000 MCG/ML 1 ML VIAL IM SCH (11:57)
[2020-08-23] MEDS: COLCHICINE 0.6 MG EACH PO SCH ×2 (11:57→20:44)
[2020-08-23 12:24] LABS: Glucose,Whole Blood 261 mg/dL (75-99)
--- NOTE | 2020-08-23 14:20 | P.PN ---
Subjective This is a pleasant 70 years old male with past medical history of hypertension, hyperlipidemia, coronary artery disease status post stent, COPD, deep venous thrombosis, currently not on anticoagulation, osteoarthritis, GERD, sleep apnea on CPAP/BiPAP, chronic low back. Chronic hypoxic respiratory failure, nonsustained V. tach, TIA, type 2 diabetes mellitus with neuropathy, benign prostatic hypertrophy, mixed connective tissue disease and he f/u with , he is on prednisone 20 mg daily for this reason. Patient told me he does not use oxygen at home. And also he is noncompliant with his CPAP/BiPAP machine. Also he takes insulin as needed, he says whenever his sugars more than 120 he takes Levemir 30 units at bedtime. His PCP is Dr. Keene. Also he sees Dr. Harrison and Dr. De Los Santos He presents with right eye floaters started last Friday about 3 days ago and gradually was getting worse to the degree he cystlike spiders as he describes. Also like veil. He states that his eye is little blurry but no double vision. Also is complaining of from right leg weakness but no arm weakness He denies headache, no slurred speech. No chest pain or dyspnea. No abdominal pain. No urinary complaints. No fever Vitas looks stable, blood pressure is 160/79 this morning. Labs showing mild leukocytosis of 11.9 K. Patient has history of WBC going up frequently. Also he is on steroids. Hemoglobin is 12.8, rest of CBC and INR are unremarkable. Creatinine is elevated at 2.2, baseline is 1.2-1.5. Patient probably has chronic kidney disease stage III Liver enzymes mildly elevated with AST 105 and ALT 143. Troponin is negative less than 0.012. Cordarone over is not detected. CTA of the head and neck: No significant stenosis. Right ICA is 20% stenosis and left ICA is 35% stenosis CT of the brain: No acute process Chest x-ray: No acute process. EKG showing normal sinus rhythm at [address]-T changes Emergency room patient received aspirin 324 mg and given 1 L of normal slide and continued on 120 mL per hour. Patient was taking Lantus 40 units at bedtime as when necessary 08/23/2020 Patient today is found sitting in chair. His right eye blurriness state and is slightly worse. His right leg weakness that looks slightly improved, he is able to extend his right knee which he couldn't yesterday when I saw him however flexion of the right knee is still weak and also patient has low back pain with radiating to the right side. As per patient and at bedside patient supposed to get pain injection by pain in his lower back but this was held pending technical adjuster clearance which Was still pending When he come to the hospital yesterday. Vitals are stable Neurologist evaluated the patient and gave him one loading dose of Plavix. Also start him on vitamin B12, B6 and folate Patient continued on prednisone 20 mg. Left ventricular increased to 25 units at bed time physical therapy still pending Review of Systems CONSTITUTIONAL: No fever, no malaise, no fatigue. HEENT: No recent visual problems or hearing problems. Denied any sore throat. CARDIOVASCULAR: No orthopnea, PND, no palpitations, no syncope. PULMONARY: No shortness of breath, no cough, no hemoptysis. GASTROINTESTINAL: No diarrhea, no nausea, no vomiting, no abdominal pain. Normoactive bowel sounds. NEUROLOGICAL: No headaches, no weakness, no numbness. Active Medications Generic Name Dose Route Start Last Admin Trade Name Freq PRN Reason Stop Dose Admin Albuterol Sulfate 2.5 mg 08/22/20 08:06 08/23/20 11:34 Albuterol Nebulized 2.5 Mg/3 Ml INHALATION 2.5 mg RT-QID PRN Administration Shortness Of Breath Aspirin 81 mg 08/22/20 09:00 08/23/20 09:42 Aspirin 81 Mg PO 81 mg DAILY JOSE Administration Atorvastatin Calcium 80 mg 08/22/20 21:00 08/22/20 21:31 Atorvastatin 80 Mg Tab PO 80 mg HS JOSE Administration Calcitriol 0.25 mcg 08/22/20 09:00 08/22/20 18:40 Calcitriol 0.25 Mcg Cap PO Not Given TU JOSE Calcium Carbonate 1 each 08/23/20 07:30 08/23/20 11:13 Calcium Carb-Vit D 500 Mg-5 Mcg Tab PO 1 each TID-W/MEALS JOSE Administration Colchicine 0.6 mg 08/22/20 09:00 08/23/20 11:57 Colchicine 0.6 Mg Each PO 0.6 mg BID JOSE Administration Cyanocobalamin 1,000 mcg 08/23/20 09:00 08/23/20 11:57 Cyanocobalamin 1,000 Mcg/Ml 1 Ml Vial IM 1,000 mcg DAILY JOSE Administration Cyclobenzaprine HCl 10 mg 08/22/20 09:00 08/23/20 11:13 Cyclobenzaprine 10 Mg Tab PO 10 mg BID JOSE Administration Folic Acid 1 mg 08/23/20 09:00 08/23/20 11:13 Folic Acid 1 Mg Tab PO 1 mg DAILY JOSE Administration Furosemide 40 mg 08/22/20 09:45 08/23/20 09:42 Furosemide 10 Mg/Ml 4 Ml Vial IV 40 mg Q12HR JOSE Administration Hydralazine HCl 50 mg 08/22/20 16:00 08/23/20 09:42 Hydralazine Hcl 50 Mg Tab PO 50 mg Q8HR JOSE Administration Insulin Aspart 0 unit 08/23/20 12:30 08/23/20 13:08 Insulin Aspart (Novolog) 100 Unit/Ml Vial SQ 4 unit ACHS JOSE Administration Protocol Insulin Detemir 20 unit 08/22/20 21:00 08/22/20 21:29 Insulin Detemir (Levemir) 100 Unit/Ml Syr SQ 20 unit HS JOSE Administration Isosorbide Mononitrate 30 mg 08/22/20 09:00 08/23/20 09:42 Isosorbide Mononitrate Er 30 Mg Tab.Er.24h PO 30 mg DAILY JOSE Administration Magnesium Oxide 400 mg 08/22/20 09:00 08/23/20 09:42 Magnesium Oxide 400 Mg Tab PO 400 mg DAILY JOSE Administration Melatonin 3 mg 08/22/20 08:06 Melatonin 3 Mg Tablet PO HS PRN Insomnia Naloxone HCl 0.2 mg 08/21/20 22:07 Naloxone 0.4 Mg/Ml 1 Ml Vial IV Q2M PRN Opioid Reversal Oxycodone/Acetaminophen 1 each 08/22/20 01:46 08/23/20 11:13 Oxycodone-Apap 10-325mg 1 Each Tab PO 1 each Q4H PRN Administration Pain Pramipexole Dihydrochloride 1 mg 08/22/20 21:00 08/22/20 21:31 Pramipexole 1 Mg Tab PO 1 mg HS JOSE Administration Prednisone 20 mg 08/22/20 09:00 08/23/20 09:42 Prednisone 20 Mg Tab PO 20 mg DAILY JOSE Administration Pyridoxine HCl 50 mg 08/23/20 09:00 08/23/20 11:57 Pyridoxine 50 Mg Tab PO 50 mg DAILY JOSE Administration Quetiapine Fumarate 25 mg 08/22/20 09:00 08/23/20 11:13 Quetiapine 25 Mg Tab PO 25 mg BID JOSE Administration Spironolactone 25 mg 08/22/20 09:00 08/23/20 09:43 Spironolactone 25 Mg Tab PO 25 mg DAILY JOSE Administration Tamsulosin HCl 0.4 mg 08/22/20 09:00 08/23/20 09:42 Tamsulosin 0.4 Mg Cap.Er.24h PO 0.4 mg DAILY JOSE Administration Objective - Vital Signs Vital signs: Vital Signs Temp 98.4 F 08/23/20 11:55 Pulse 77 08/23/20 11:55 Resp 16 08/23/20 11:55 BP 150/76 08/23/20 11:55 Pulse Ox 96 08/23/20 11:55 Intake & Output 08/22/20 08/23/20 08/23/20 18:59 06:59 18:59 Weight 102.512 kg - Labs CBC & Chem 7: 08/23/20 03:45 08/23/20 03:45 Labs: Abnormal Lab Results - Last 24 Hours (Table) 08/22/20 08/22/20 08/23/20 Range/Units 14:51 21:17 00:14 Hgb (13.0-17.5) gm/dL Hct (39.0-53.0) % RDW (11.5-15.5) % Plt Count (150-450) k/uL ESR 16 H (0-15) mm/hr BUN (9-20) mg/dL Glucose (74-99) mg/dL POC Glucose (mg/dL) 265 H 279 H (75-99) mg/dL C-Reactive Protein (<1.0) mg/dL 08/23/20 08/23/20 08/23/20 Range/Units 00:14 03:45 03:45 Hgb 12.3 L (13.0-17.5) gm/dL Hct 38.9 L (39.0-53.0) % RDW 20.8 H (11.5-15.5) % Plt Count 135 L (150-450) k/uL ESR (0-15) mm/hr BUN 63 H (9-20) mg/dL Glucose 159 H (74-99) mg/dL POC Glucose (mg/dL) (75-99) mg/dL C-Reactive Protein 1.3 H (<1.0) mg/dL 08/23/20 08/23/20 Range/Units 08:38 12:22 Hgb (13.0-17.5) gm/dL Hct (39.0-53.0) % RDW (11.5-15.5) % Plt Count (150-450) k/uL ESR (0-15) mm/hr BUN (9-20) mg/dL Glucose (74-99) mg/dL POC Glucose (mg/dL) 203 H 261 H (75-99) mg/dL C-Reactive Protein (<1.0) mg/dL Assessment and Plan Assessment: Acute right eye blurred vision with floaters Possible acute stroke with right eye blurred vision and right leg weakness. Bilateral leg swelling Low back pain with sciatic nerve distribution Acute on chronic kidney disease Chronic kidney disease, stage III. Noncompliance for example to CPAP machine, dosing with therapy. Diabetes mellitus Hypertension Hyperlipidemia History of coronary artery disease status post stent placement History of the venous thrombosis, currently not on anticoagulation History of GERD Sleep apnea, Noncompliant with CPAP/BiPAP machine History of urinary retention Osteoarthritis with chronic low back pain History of nonsustained V. tach History of TIA Benign prostatic hypertrophy History of mixed connective tissue disease History of osteomyelitis/lumbar spine discitis, finished 6 weeks of therapy Plan: This is a pleasant 70 years old male who presents with strokelike symptoms with right-sided weakness and right blurred vision. Continue with aspirin, neurology team consulted. Continue with Levemir 25 units react check hemoglobin A1c Consults ophthalmology for his eye problem. Labs and medication were reviewed.. Continue same treatment. Continue with symptomatic treatment. Resume home medication. Monitor lytes and vitals. DVT and GI prophylaxis. Further recommendations depends on the clinical course of the patient DVT prophylaxis: Subcutaneous heparin GI Prophylaxis: Pepcid PT/OT: Pending Prognosis is guarded
[2020-08-23 14:23] VITALS: RESP 18
--- NOTE | 2020-08-23 15:47 | PN ---
PROGRESS NOTE Patient is seen for followup for acute kidney injury on top of chronic kidney disease. He was volume overloaded and currently maintained on IV Lasix. His serum creatinine has improved to 1.2 from 2.28 on initial admission. EXAMINATION: Today the patient is comfortable. Blood pressure is 150/76, heart rate 77 per minute, he is afebrile. Examination of the heart S1, S2. Examination of the lungs, bilateral breath sounds are heard. Abdomen is soft, nontender. Examination of lower extremities shows 2+ edema bilaterally. MANAGER [employer]MENT exam grossly intact. LAB: Show sodium 137, potassium 3.9, chloride 103, BUN 63, creatinine 1.23, hemoglobin of 12.3 g/dL. ASSESSMENT: 1. Acute kidney injury, mostly cardiorenal, currently improved. 2. Volume overload slowly improving, continue current dose of diuretics. 3. Chronic kidney disease stage 3. A previous creatinine about 1.4 mg/dL. Etiology nephrosclerosis. No evidence of proteinuria on previous UA. 4. Chronic kidney disease mineral bone disorder. 5. TIA with current CT of the brain and angiogram negative for any significant occlusion or infarct. 6. History of gout. 7. History of mixed connective tissue disease, being followed by Rheumatology, maintained on prednisone. PLAN: Continue current dose of IV Lasix. Monitor electrolytes. Repeat labs in a.m. MMODL / IJN: [id number] /
[2020-08-23] MEDS ORDERED: TROPICAMIDE 1% OPHTH DROPS 2 ML BTL BOTH EYES STA (16:22)
[2020-08-23 16:24] LABS: Hemoglobin A1C 7.6 % (4.0-6.0)
[2020-08-23 16:41] LABS: Glucose,Whole Blood 228 mg/dL (75-99)
--- NOTE | 2020-08-23 17:27 | P.PN ---
Subjective Progress Note Date: 08/23/20 Patient was seen earlier this morning. Patient states his vision is getting worse. The spider is getting more darker and bigger. He continues to see those million dots like a vail. Objective - Vital Signs Vital signs: Vital Signs Temp 98.6 F 08/23/20 14:22 Pulse 91 08/23/20 15:59 Resp 18 08/23/20 14:22 BP 138/76 08/23/20 14:22 Pulse Ox 96 08/23/20 14:22 Intake & Output 08/22/20 08/23/20 08/23/20 18:59 06:59 18:59 Weight 102.512 kg - Exam Patient's mental status, speech and language functions are normal. Patient continues to have visual disturbance in the right eye. Apparently visual kimball are full on confrontation bilaterally, as well as individual eyes bilaterally. Patient's visual acuity is 20/30 right eye. Still awaiting ophthalmological consultation. Rest of the examination is nonfocal. I again tried to perform funduscopic examination but his pupils are small, very difficult to see the fundus. He probably will need dilated eye examination by wealth management manager. - Labs CBC & Chem 7: 08/23/20 03:45 08/23/20 03:45 Labs: Abnormal Lab Results - Last 24 Hours (Table) 08/22/20 08/23/20 08/23/20 Range/Units 21:17 00:14 00:14 Hgb (13.0-17.5) gm/dL Hct (39.0-53.0) % RDW (11.5-15.5) % Plt Count (150-450) k/uL ESR 16 H (0-15) mm/hr BUN (9-20) mg/dL Glucose (74-99) mg/dL POC Glucose (mg/dL) 279 H (75-99) mg/dL C-Reactive Protein 1.3 H (<1.0) mg/dL 08/23/20 08/23/20 08/23/20 Range/Units 03:45 03:45 08:38 Hgb 12.3 L (13.0-17.5) gm/dL Hct 38.9 L (39.0-53.0) % RDW 20.8 H (11.5-15.5) % Plt Count 135 L (150-450) k/uL ESR (0-15) mm/hr BUN 63 H (9-20) mg/dL Glucose 159 H (74-99) mg/dL POC Glucose (mg/dL) 203 H (75-99) mg/dL C-Reactive Protein (<1.0) mg/dL 08/23/20 Range/Units 12:22 Hgb (13.0-17.5) gm/dL Hct (39.0-53.0) % RDW (11.5-15.5) % Plt Count (150-450) k/uL ESR (0-15) mm/hr BUN (9-20) mg/dL Glucose (74-99) mg/dL POC Glucose (mg/dL) 261 H (75-99) mg/dL C-Reactive Protein (<1.0) mg/dL Assessment and Plan Assessment: * Acute onset of visual disturbance right eye, rule acute ischemic optic neuropathy, less likely temporal arteritis. * Diabetes * Hypertension * Hyperlipidemia * X tobacco use * Obesity * History of cataract surgery both eyes about a year ago. * History of discitis osteomyelitis Plan: * Patient believes his vision from the right eye is getting worse. On my examination it appears somewhat stable. Still awaiting ophthalmology consultation. * ESR 16, CRP 1.3, much better as compared to March 2020. No evidence of temporal arteritis. * Patient has been started on prednisone 20 mg daily, pending ophthalmology consult. * Hemoglobin A1c 7.6 * B12 349, folate 16.1 and TSH 1.50. All normal. * CTA of head and neck showed tortuous carotid arteries. There is approximate 20% stenosis proximal right ICA and 35% stenosis proximal left ICA. * Discussed with the nurse to inform the wealth management manager
[2020-08-23 19:44] LABS: Glucose,Whole Blood 252 mg/dL (75-99)
[2020-08-23] MEDS: ATORVASTATIN 80 MG TAB PO SCH (20:43)
[2020-08-23] MEDS: PRAMIPEXOLE 1 MG TAB PO SCH (20:45)
[2020-08-23] MEDS ORDERED: INSULIN DETEMIR (LEVEMIR) 100 UNIT/ML SYR SQ SCH (21:00)
--- NOTE | 2020-08-23 21:55 | CONS ---
CONSULTATION ADMISSION DATE: 08/21/2020. HISTORY: This is a 70-year-old white male who presented to the hospital on August 21, complaining of new onset floaters and blurred vision in his right eye. The patient believes that the floaters have been present for some time and after speaking with his primary care physician, was told to present to the hospital. Since that time he believes that it is in a "spider like" pattern with more prominence in the temporal aspect of the right eye. He also states seeing several black dots floating around in his vision. The patient states that the vision has improved somewhat since his first onset but he still notices floaters that are in the peripheral vision of his right eye. The left eye did not report any significant symptoms. EXAM: Visual acuity measured 20/50 OD and 20/30 OS. The pupils are equal and reactive to light. There was no afferent defect. Extraocular movements were full in all gaze positions. On penlight exam, the lids were normal. The conjunctivae was quiet. Both corneas were clear. The anterior chambers were quiet. The iris was normal and bilateral posterior chamber intra-ocular lenses were present in both eyes. Dilated fundus exam was performed and a posterior vitreous detachment was noted in the right eye along with accompanying vitreous hemorrhage. Inferiorly, there was some blood layered out in the inferonasal and inferotemporal arcades. A small tear was believed to be present behind some of the retinal blood in the inferotemporal quadrant. Dilated fundus exam of the left eye revealed normal-appearing maculae vessels and discs with no significant pathology. IMPRESSIONS: 1. Vitreous hemorrhage with posterior vitreous detachment in the right eye. This patient has an obvious hemorrhage in his right eye likely brought about from his vitreous separation. This is typically age-related and/or due to diabetes. Treatment involves stabilizing the tear to prevent spread to a full-blown retinal detachment. Laser treatment is usually carried out in the office and upon discharge from the hospital, we would be happy to take care of him in order to stabilize this condition. 2. Bilateral lens implants. These appear to be stable and with a good postoperative appearance. Thank you for this consultation. I will be happy to see him upon discharge. MMODL / IJN: [id number] /
[2020-08-24 06:33] LABS: Glucose,Whole Blood 131 mg/dL (75-99)
[2020-08-24] MEDS: INSULIN ASPART (NovoLOG) 100 UNIT/ML VIAL SQ SCH ×2 (06:43→12:45)
[2020-08-24] MEDS: CALCIUM CARB-VIT D 500 MG-5 MCG TAB PO SCH ×2 (06:50→12:45)
[2020-08-24] MEDS: ALBUTEROL NEBULIZED 2.5 MG/3 ML INHALATION PRN ×2 (08:46→12:48)
[2020-08-24 09:14] VITALS: TEMP 98
[2020-08-24] MEDS: ASPIRIN 81 MG PO SCH (09:15)
[2020-08-24] MEDS: FOLIC ACID 1 MG TAB PO SCH (09:15)
[2020-08-24] MEDS: MAGNESIUM OXIDE 400 MG TAB PO SCH (09:15)
[2020-08-24] MEDS: ISOSORBIDE MONONITRATE ER 30 MG TAB.ER.24H PO SCH (09:15)
[2020-08-24] MEDS: predniSONE 20 MG TAB PO SCH (09:15)
[2020-08-24] MEDS: SPIRONOLACTONE 25 MG TAB PO SCH (09:15)
[2020-08-24] MEDS: CYCLOBENZAPRINE 10 MG TAB PO SCH (09:15)
[2020-08-24] MEDS: hydrALAZINE HCL 50 MG TAB PO SCH (09:15)
[2020-08-24] MEDS: TAMSULOSIN 0.4 MG CAP.ER.24H PO SCH (09:15)
[2020-08-24] MEDS: COLCHICINE 0.6 MG EACH PO SCH (09:16)
[2020-08-24] MEDS: QUEtiapine 25 MG TAB PO SCH (09:16)
[2020-08-24] MEDS: PYRIDOXINE 50 MG TAB PO SCH (09:16)
[2020-08-24] MEDS: oxyCODONE-APAP 10-325MG 1 EACH TAB PO PRN (09:17)
[2020-08-24] MEDS: FUROSEMIDE 10 MG/ML 4 ML VIAL IV SCH (09:17)
[2020-08-24] MEDS: CYANOCOBALAMIN 1,000 MCG/ML 1 ML VIAL IM SCH (09:17)
[2020-08-24 11:49] LABS: Glucose,Whole Blood 174 mg/dL (75-99)
[2020-08-24 13:03] VITALS: BP 128/67; PULSE 90
--- NOTE | 2020-08-24 14:42 | PN ---
PROGRESS NOTE Patient is seen for followup for acute kidney injury on top of chronic kidney disease. Patient has been volume overloaded. He is currently being diuresed and he is tolerating the diuretics fairly well. Serum creatinine is down to 1.2 from yesterday and it was at 2.28 on initial admission. The patient was noted to have vitreous hemorrhage and ophthalmology has been consulted. PHYSICAL EXAMINATION: On examination today, blood pressure 128/67, heart rate 88 per minute. Patient is afebrile. Examination of the heart S1, S2. Examination of the lungs, bilateral breath sounds are heard. Decreased breath sounds at bases. Abdomen is soft, nontender. Examination of lower extremities shows edema 2 to 3+ bilaterally. EMBROIDERY ASSISTANT exam grossly intact. LAB: Show sodium 137, potassium 3.9, chloride 103, BUN 63, serum creatinine 1.23 from 08/23/2020. ASSESSMENT: 1. Acute kidney injury cardiorenal currently improved. 2. Volume overload maintained on Lasix, tolerating well. 3. Vitreous hemorrhage with vitreous detachment in the right eye to follow up with Ophthalmology as outpatient. 4. Chronic kidney disease stage 3. Baseline creatinine around 1.2-1.4 mg/dL secondary to nephrosclerosis. 5. Chronic kidney disease mineral bone disorder. 6. History of gout. 7. History of mixed connective tissue disease being followed by Rheumatology. PLAN: Continue with IV diuretics until discharge. MMODL / IJN: [id number] /
--- NOTE | 2020-08-24 22:46 | P.DS ---
Providers Date of admission: 08/21/20 22:07 Attending physician: Isabell Huertas Consults: 08/21/20 22:02 Consult Physician Routine Consulting Provider: Russ Russ Consult Reason/Comments: vision changes, suspect retinal detachment Do you want consulting provider notified?: Yes Consult Physician Routine Consulting Provider: Arvin King Consult Reason/Comments: stroke symptoms Do you want consulting provider notified?: Yes 08/21/20 22:07 Consult Physician Routine Consulting Provider: Ruth De Los Santos Consult Reason/Comments: lennie Do you want consulting provider notified?: Yes 08/22/20 09:37 Consult Physician Urgent Consulting Provider: Russ Russ Consult Reason/Comments: right eye blurred vission with floaters Do you want consulting provider notified?: Yes Primary care physician: [facility] Course: Diagnoses: Acute right eye blurred vision with floaters, secondary to vitreous hemorrhage and vitreous detachment secondary to age and DM Right leg weakness is secondary to knee osteoarthritis and fluid overload improved with treatment and back to normal. Stroke ruled out by neurologist Bilateral leg swelling Low back pain with sciatic nerve distribution Acute on chronic kidney disease, secondary to cardiorenal syndrome. Improved Chronic kidney disease, stage III. Noncompliance for example to CPAP machine, dosing with therapy. Diabetes mellitus Hypertension Hyperlipidemia History of coronary artery disease status post stent placement History of the venous thrombosis, currently not on anticoagulation History of GERD Sleep apnea, Noncompliant with CPAP/BiPAP machine History of urinary retention Osteoarthritis with chronic low back pain History of nonsustained V. tach History of TIA Benign prostatic hypertrophy History of mixed connective tissue disease History of osteomyelitis/lumbar spine discitis, finished 6 weeks of therapy. Hospital course: This is a pleasant 70 years old male with past medical history of hypertension, hyperlipidemia, coronary artery disease status post stent, COPD, deep venous thrombosis, currently not on anticoagulation, osteoarthritis, GERD, sleep apnea on CPAP/BiPAP, chronic low back. Chronic hypoxic respiratory failure, nonsustained V. tach, TIA, type 2 diabetes mellitus with neuropathy, benign prostatic hypertrophy, mixed connective tissue disease and he f/u with , he is on prednisone 20 mg daily for this reason. Patient told me he does not use oxygen at home. And also he is noncompliant with his CPAP/BiPAP machine. Also he takes insulin as needed, he says whenever his sugars more than 120 he takes Levemir 30 units at bedtime. His PCP is Dr. Keene. Also he sees Dr. Harrison and Dr. De Los Santos He presents with right eye floaters started last Friday about 3 days ago and gradually was getting worse to the degree he cystlike spiders as he describes. Ophthalmology consult was called by the emergency room team. Has been evaluated by an mobile heavy equipment operator and found to have vitreous hemorrhage and recommended outpatient follow-up on treatment with close follow-up. Patient also evaluated by neurologist and associate director of biostatistics and his creatinine improved with IV Lasix and back to normal. Other than that he denies any weakness or numbness in his extremities. This strength in both right and left leg is 5/5 in both extension and flexion 1 examined today. Patient also has been evaluated by neurologist and cleared him for discharge since yesterday. Patient needed urgent follow-up appointment which is made for him with tomorrow 08/25/2020 at 8:45 in the morning . Patient informed with his appointment and he agrees stating he will follow- up. Problems and management plan were discussed with the patient and he verbalized understanding and acceptance Patient was found stable and can be discharged home however he needs follow-up as an outpatient. Patient was instructed to follow up with PCP within one week and patient agrees Physical exam Gen: patient is a AAOx3, no distress. Her blurred right eye CVS: S1-S2, RRR, no murmur Lungs: B/L CTA, no wheezing Abdomen: soft, no distention, no tenderness, positive bowel sounds Extremity: no leg edema or induration Neuro: Cranial nerves are grossly intact. Strength is 5/5 in all 4 extremities in both flexion and extension. Sensation is intact. Time spent more than 35 minutes Patient Condition at Discharge: Fair Plan - Discharge Summary Discharge Rx Participant: No New Discharge Prescriptions: New Pyridoxine [Vitamin B-6] 50 mg PO DAILY #30 tab Calcium Carb-Vit D 500Mg-5Mcg [Oscal 500+D 5 Mcg (200 Iu)] 1 each PO TID- W/MEALS #90 tab Cyanocobalamin [Vitamin B-12] 1,000 mcg PO DAILY #60 tablet Continue Atorvastatin [Lipitor] 80 mg PO HS Fluticasone/Vilanterol [Breo Ellipta 100-25 Mcg Inhaler] 1 puff INHALATION RT-HS Pramipexole Di-HCl [Mirapex] 1 mg PO HS Omeprazole 20 mg PO AC-BRKFST Tamsulosin [Flomax] 0.4 mg PO DAILY Aspirin EC [Ecotrin Low Dose] 81 mg PO DAILY Colchicine 0.6 mg PO BID hydrALAZINE HCL 50 mg PO Q8HR Magnesium 250 mg PO DAILY Metoprolol Tartrate [Lopressor] 25 mg PO HS 30 Days #30 tab Metoprolol Tartrate [Lopressor] 50 mg PO DAILY 30 Days #30 tab QUEtiapine [SEROquel] 25 mg PO BID 30 Days #60 tab Spironolactone 25 mg PO DAILY Folic Acid 1 mg PO DAILY Isosorbide Mononitrate [Isosorbide Mononitrate ER] 30 mg PO DAILY Melatonin 3 mg PO HS PRN PRN Reason: Insomnia Nitroglycerin Sl Tabs [Nitrostat] 0.4 mg SUBLINGUAL Q5M PRN PRN Reason: Chest Pain Furosemide [Lasix] 40 mg PO BID predniSONE [Deltasone] 20 mg PO DAILY oxyCODONE-APAP 10-325MG [Percocet 10-325 mg] 2 each PO Q4H PRN PRN Reason: Pain Albuterol Nebulized [Ventolin Nebulized] 2.5 mg INHALATION RT-QID PRN PRN Reason: Shortness Of Breath calcitrioL [Rocaltrol] 0.25 mcg PO TU Ergocalciferol [Vitamin D2 (1250 Mcg = 47098 Iu)] 1,250 mcg PO Q14D Furosemide [Lasix] 40 mg PO DAILY PRN PRN Reason: Edema Ipratropium-Albuterol Nebulize [Duoneb 0.5 mg-3 mg/3 ml Soln] 3 ml INHALATION RT-QID PRN PRN Reason: Shortness Of Breath Cyclobenzaprine HCl 10 mg PO BID Febuxostat [Uloric] 40 mg PO DAILY Changed Insulin Glargine [Lantus] 30 unit SQ HS #0 Discontinued Multivitamins, Thera [Multivitamin (formulary)] 1 tab PO DAILY Discharge Medication List Atorvastatin [Lipitor] 80 mg PO HS 05/08/15 [History] Fluticasone/Vilanterol [Breo Ellipta 100-25 Mcg Inhaler] 1 puff INHALATION RT-HS 03/12/18 [History] Pramipexole Di-HCl [Mirapex] 1 mg PO HS 09/02/19 [History] Omeprazole 20 mg PO AC-BRKFST 11/23/19 [History] Tamsulosin [Flomax] 0.4 mg PO DAILY 11/23/19 [History] Aspirin EC [Ecotrin Low Dose] 81 mg PO DAILY 12/09/19 [History] Colchicine 0.6 mg PO BID 03/23/20 [History] Magnesium 250 mg PO DAILY 03/23/20 [History] hydrALAZINE HCL 50 mg PO Q8HR 03/23/20 [History] Metoprolol Tartrate [Lopressor] 25 mg PO HS 30 Days #30 tab 03/30/20 [Rx] Metoprolol Tartrate [Lopressor] 50 mg PO DAILY 30 Days #30 tab 03/30/20 [Rx] QUEtiapine [SEROquel] 25 mg PO BID 30 Days #60 tab 03/30/20 [Rx] Folic Acid 1 mg PO DAILY 04/19/20 [History] Spironolactone 25 mg PO DAILY 04/19/20 [History] Isosorbide Mononitrate [Isosorbide Mononitrate ER] 30 mg PO DAILY 06/15/20 [History] Melatonin 3 mg PO HS PRN 06/15/20 [History] Nitroglycerin Sl Tabs [Nitrostat] 0.4 mg SUBLINGUAL Q5M PRN 06/15/20 [History] oxyCODONE-APAP 10-325MG [Percocet 10-325 mg] 2 each PO Q4H PRN 06/15/20 [History] Albuterol Nebulized [Ventolin Nebulized] 2.5 mg INHALATION RT-QID PRN 08/21/20 [History] Cyclobenzaprine HCl 10 mg PO BID 08/21/20 [History] Ergocalciferol [Vitamin D2 (1250 Mcg = 03191 Iu)] 1,250 mcg PO Q14D 08/21/20 [History] Febuxostat [Uloric] 40 mg PO DAILY 08/21/20 [History] Furosemide [Lasix] 40 mg PO BID 08/21/20 [History] Furosemide [Lasix] 40 mg PO DAILY PRN 08/21/20 [History] Ipratropium-Albuterol Nebulize [Duoneb 0.5 mg-3 mg/3 ml Soln] 3 ml INHALATION RT-QID PRN 08/21/20 [History] calcitrioL [Rocaltrol] 0.25 mcg PO TU 08/21/20 [History] predniSONE [Deltasone] 20 mg PO DAILY 08/21/20 [History] Calcium Carb-Vit D 500Mg-5Mcg [Oscal 500+D 5 Mcg (200 Iu)] 1 each PO TID-W/MEALS #90 tab 08/24/20 [Rx] Cyanocobalamin [Vitamin B-12] 1,000 mcg PO DAILY #60 tablet 08/24/20 [Rx] Insulin Glargine [Lantus] 30 unit SQ HS #0 08/24/20 [Rx] Pyridoxine [Vitamin B-6] 50 mg PO DAILY #30 tab 08/24/20 [Rx] Follow up Appointment(s)/Referral(s): Rk Keene III, MD [Primary Care Provider] - 1-2 days Russ Russ MD [STAFF PHYSICIAN] - 08/25/20 8:45 am [facility], [NON-STAFF] - [facility] [NON-STAFF] - Nava Souza MD [Medical Doctor] - 2 Weeks (Neurologist) Ruth De Los Santos MD [STAFF PHYSICIAN] - 10 Days Patient Instructions/Handouts: Visual Floaters (GEN) Activity/Diet/Wound Care/Special Instructions: heart healthy diet, to low carbohydrate 1800 kcal per day Activity is restricted until you see your doctor We recommend that you check your blood glucose 4 times a day, each meal and at bedtime. keep results in log book and bring it to her doctor on your appointment date If your glucose less than 70 or more than 400, then call 911 and come to emergency room Discharge Disposition: HOME SELF-CARE
== END 2020-08-24 15:31 | disposition home or self-care (01) | DRG 125 ==
LOC: EC 19:43 → 3SCARD 22:07
PROVIDERS: ADMIT Hospitalist; ATTEND Hospitalist
DX: E11.39 Type 2 diabetes mellitus with other diabetic ophthalmic complication (principal); J96.11 Chronic respiratory failure with hypoxia; M35.1 Other overlap syndromes; N17.9 Acute kidney failure, unspecified; I13.0 Hypertensive heart and chronic kidney disease with heart failure and stage 1 through stage 4 chronic kidney disease, or unspecified chronic kidney disease; H43.811 Vitreous degeneration, right eye; E11.22 Type 2 diabetes mellitus with diabetic chronic kidney disease; I25.10 Atherosclerotic heart disease of native coronary artery without angina pectoris; H43.11 Vitreous hemorrhage, right eye; J44.9 Chronic obstructive pulmonary disease, unspecified; M17.10 Unilateral primary osteoarthritis, unspecified knee; N18.31 Chronic kidney disease, stage 3a; E78.5 Hyperlipidemia, unspecified; G89.29 Other chronic pain; E11.40 Type 2 diabetes mellitus with diabetic neuropathy, unspecified; N40.1 Benign prostatic hyperplasia with lower urinary tract symptoms; M10.9 Gout, unspecified; R33.8 Other retention of urine; E66.9 Obesity, unspecified; M89.8X9 Other specified disorders of bone, unspecified site; G47.33 Obstructive sleep apnea (adult) (pediatric); K21.9 Gastro-esophageal reflux disease without esophagitis; D72.829 Elevated white blood cell count, unspecified; Z20.822 Contact with and (suspected) exposure to COVID-19; I50.9 Heart failure, unspecified; M47.9 Spondylosis, unspecified; M54.40 Lumbago with sciatica, unspecified side; K57.90 Diverticulosis of intestine, part unspecified, without perforation or abscess without bleeding; Z91.19 Patient's noncompliance with other medical treatment and regimen; Z96.611 Presence of right artificial shoulder joint; Z96.652 Presence of left artificial knee joint; Z82.49 Family history of ischemic heart disease and other diseases of the circulatory system; Z96.1 Presence of intraocular lens; Z95.5 Presence of coronary angioplasty implant and graft; Z86.718 Personal history of other venous thrombosis and embolism; Z79.4 Long term (current) use of insulin; Z86.73 Personal history of transient ischemic attack (TIA), and cerebral infarction without residual deficits; Z79.899 Other long term (current) drug therapy; Z79.01 Long term (current) use of anticoagulants; Z79.52 Long term (current) use of systemic steroids; Z87.01 Personal history of pneumonia (recurrent); Z86.010 Personal history of colon polyps; Z79.82 Long term (current) use of aspirin; Z87.891 Personal history of nicotine dependence; Z68.36 Body mass index [BMI] 36.0-36.9, adult
CPT/HCPCS: 36415; 51798; 70450; 70496; 70498; 71046; 80048; 80053; 82607; 82746; 83036; 84443; 84484; 85025; 85610; 85652; 85730; 86140; 87635; 93005; 93970; 94640; 96360; 96361; 99291

== ENCOUNTER 2020-09-01 10:50 | Inpatient (IN) | payer MEDICARE ==
[2020-09-01] MEDS ORDERED: FUROSEMIDE 10 MG/ML 4 ML VIAL IV STA (11:19)
--- NOTE | 2020-09-01 11:23 | ED ---
General Adult HPI - General Chief complaint: Shortness of Breath Stated complaint: CHF Time Seen by Provider: 09/01/20 11:00 Source: patient, family, RN notes reviewed Mode of arrival: wheelchair Limitations: no limitations - History of Present Illness Initial comments: Patient is a pleasant 70-year-old male presenting to the emergency Department with complaints of edema and dyspnea. Symptoms are somewhat chronic however worse over the past few days. Patient has been gaining weight. He should does have dyspnea and nonproductive cough. Patient has leg and foot edema. Patient is unable to put his shoes on. No chest pain. They did call his shoe associate requesting to increase Lasix however was advised come to the hospital by Dr. Frazier. - Related Data Home Medications Medication Instructions Recorded Confirmed Atorvastatin [Lipitor] 80 mg PO HS 05/08/15 09/01/20 Fluticasone/Vilanterol [Breo 1 puff INHALATION RT-HS 03/12/18 09/01/20 Ellipta 100-25 Mcg Inhaler] Pramipexole Di-HCl [Mirapex] 1 mg PO HS 09/02/19 09/01/20 Omeprazole 20 mg PO AC-BRKFST 11/23/19 09/01/20 Tamsulosin [Flomax] 0.4 mg PO DAILY 11/23/19 09/01/20 Aspirin EC [Ecotrin Low Dose] 81 mg PO DAILY 12/09/19 09/01/20 Colchicine 0.6 mg PO BID 03/23/20 09/01/20 Magnesium 250 mg PO DAILY 03/23/20 09/01/20 hydrALAZINE HCL 50 mg PO Q8HR 03/23/20 09/01/20 Folic Acid 1 mg PO DAILY 04/19/20 09/01/20 Spironolactone 25 mg PO DAILY 04/19/20 09/01/20 Isosorbide Mononitrate [Isosorbide 30 mg PO DAILY 06/15/20 09/01/20 Mononitrate ER] Melatonin 3 mg PO HS PRN 06/15/20 09/01/20 Nitroglycerin Sl Tabs [Nitrostat] 0.4 mg SUBLINGUAL Q5M PRN 06/15/20 09/01/20 oxyCODONE-APAP 10-325MG [Percocet 2 tab PO Q4H PRN 06/15/20 09/01/20 10-325 mg] Albuterol Nebulized [Ventolin 2.5 mg INHALATION RT-QID PRN 08/21/20 09/01/20 Nebulized] Cyclobenzaprine HCl 10 mg PO BID 08/21/20 09/01/20 Ergocalciferol [Vitamin D2 (1250 1,250 mcg PO Q14D 08/21/20 09/01/20 Mcg = 23243 Iu)] Febuxostat [Uloric] 40 mg PO DAILY 08/21/20 09/01/20 Furosemide [Lasix] 40 mg PO BID 08/21/20 09/01/20 Furosemide [Lasix] 40 mg PO DAILY PRN 08/21/20 09/01/20 Ipratropium-Albuterol Nebulize 3 ml INHALATION RT-QID PRN 08/21/20 09/01/20 [Duoneb 0.5 mg-3 mg/3 ml Soln] calcitrioL [Rocaltrol] 0.25 mcg PO TU 08/21/20 09/01/20 predniSONE [Deltasone] 20 mg PO DAILY 08/21/20 09/01/20 Calcium Carb-Vit D 500Mg-5Mcg 1 tab PO TID-W/MEALS 09/01/20 09/01/20 [Oscal 500+D 5 Mcg (200 Iu)] Previous Rx's Medication Instructions Recorded Metoprolol Tartrate [Lopressor] 25 mg PO HS 30 Days #30 tab 03/30/20 Metoprolol Tartrate [Lopressor] 50 mg PO DAILY 30 Days #30 tab 03/30/20 QUEtiapine [SEROquel] 25 mg PO BID 30 Days #60 tab 03/30/20 Cyanocobalamin [Vitamin B-12] 1,000 mcg PO DAILY #60 tablet 08/24/20 Insulin Glargine [Lantus] 30 unit SQ HS #0 08/24/20 Pyridoxine [Vitamin B-6] 50 mg PO DAILY #30 tab 08/24/20 Allergies Allergy/AdvReac Type Severity Reaction Status Date / Time acetaminophen [From Tylenol] AdvReac kidney/liver Verified 09/01/20 11:48 issues Review of Systems ROS Statement: Those systems with pertinent positive or pertinent negative responses have been documented in the HPI. ROS Other: All systems not noted in ROS Statement are negative. Constitutional: Denies: fever Eyes: Denies: eye pain ENT: Denies: ear pain Respiratory: Reports: as per HPI, cough, dyspnea Cardiovascular: Denies: chest pain Endocrine: Reports: fatigue Gastrointestinal: Denies: abdominal pain Genitourinary: Denies: dysuria Musculoskeletal: Denies: back pain Skin: Denies: rash Neurological: Denies: weakness Past Medical History Past Medical History: Coronary Artery Disease (CAD), Chest Pain / Angina, Heart Failure, COPD, CVA/TIA, Deep Vein Thrombosis (DVT), GERD/Reflux, Hyperlipidemia, Hypertension, Osteoarthritis (OA), Pneumonia, Prostate Disorder, Renal Disease, Respiratory Disorder, Sleep Apnea/CPAP/BIPAP Additional Past Medical History / Comment(s): IDDM type II, neuropathy bilateral hands/feet, hx severe sepsis secondary to discitis/osteomylitis, urinary retention with granados during sepsis, Hx DVT R arm/sepsis d/t cellulitis in legs, venous insufficiency, swelling in legs and feet., spondylolsis, cervical, low back and bilateral knee pain, DDD, gout, chronic respiratory failure, CALLI with occasional Cpap/O2 at 4L/NC-pt states he does not tolerate well, Oxygen @ 4L prn during the day if ill, nonsustained vtach, TIAs, small vessel disease, IDDM type II, neuropathy, BPH, diverticular disease, colon polyps, sinus problems, seasonal allergies, Mixed Connective Tissue Disease causes hallucinations/confusion with sepsis/fever. History of Any Multi-Drug Resistant Organisms: None Reported Past Surgical History: Back Surgery, Heart Catheterization With Stent, Joint Replacement, Orthopedic Surgery Additional Past Surgical History / Comment(s): Bilateral knee arthroscopies, total L knee arthroplasty, R total shoulder arthroplasty, L hand injury with repair, low back surgery, PCI with 3 stents, colonoscopies/polypectomies, cervic al/lumbar epidural injections, bilateral cataract removals/lens implants. Past Anesthesia/Blood Transfusion Reactions: No Reported Reaction Additional Past Anesthesia/Blood Transfusion Reaction / Comment(s): STATES "HAD A HARD TIME WITH BREATHING POST OP" Date of Last Stent Placement:: 2009 Past Psychological History: No Psychological Hx Reported Smoking Status: Former smoker - Past Family History Father Family Medical History: CVA/TIA, Hyperlipidemia, Hypertension Additional Family Medical History / Comment(s): Father of a CVA at the age of 55 yrs. Mother Family Medical History: No Reported History Additional Family Medical History / Comment(s): Mother lived to be 93 yrs old. General Exam Limitations: no limitations General appearance: alert, in no apparent distress Head exam: Present: normocephalic Eye exam: Present: normal appearance Neck exam: Present: normal inspection Respiratory exam: Present: rales Cardiovascular Exam: Present: regular rate, normal rhythm GI/Abdominal exam: Present: soft. Absent: tenderness Extremities exam: Present: pedal edema. Absent: calf tenderness Neurological exam: Present: alert Psychiatric exam: Present: normal affect, normal mood Skin exam: Present: normal color Course Vital Signs 09/01/20 10:52 Temperature 97.6 F Pulse Rate 72 Respiratory 20 Rate Blood Pressure 129/60 O2 Sat by Pulse 94 L Oximetry EKG Findings - EKG Comments: EKG Findings:: Sinus rhythm with rate of 68. CT 146. QRS 110. QT 436. QTc 463. Normal axis. Normal QRS. No acute ST change. Medical Decision Making - Medical Decision Making Patient reevaluated. Family updated. Case was discussed in detail with Dr. Collado, covering for Dr. Keene, who will admit. - Lab Data Result diagrams: 09/01/20 11:25 09/01/20 11:25 Lab Results 09/01/20 09/01/20 09/01/20 Range/Units 11:25 11:25 11:25 WBC 14.8 H (3.8-10.6) k/uL RBC 4.33 (4.30-5.90) m/uL Hgb 12.5 L (13.0-17.5) gm/dL Hct 38.7 L (39.0-53.0) % MCV 89.4 (80.0-100.0) fL MCH 28.9 (25.0-35.0) pg MCHC 32.3 (31.0-37.0) g/dL RDW 20.9 H (11.5-15.5) % Plt Count 148 L (150-450) k/uL MPV 10.2 Neutrophils % 91 % Lymphocytes % 5 % Monocytes % 4 % Eosinophils % 1 % Basophils % 0 % Neutrophils # 13.5 H (1.3-7.7) k/uL Lymphocytes # 0.7 L (1.0-4.8) k/uL Monocytes # 0.5 (0-1.0) k/uL Eosinophils # 0.1 (0-0.7) k/uL Basophils # 0.0 (0-0.2) k/uL Hypochromasia Slight Anisocytosis Moderate Sodium 138 (137-145) mmol/L Potassium 4.1 (3.5-5.1) mmol/L Chloride 100 (98-107) mmol/L Carbon Dioxide 28 (22-30) mmol/L Anion Gap 10 mmol/L BUN 66 H (9-20) mg/dL Creatinine 1.49 H (0.66-1.25) mg/dL Est GFR (CKD-EPI)AfAm 54 (>60 ml/min/1.73 sqM) Est GFR (CKD-EPI)NonAf 47 (>60 ml/min/1.73 sqM) Glucose 199 H (74-99) mg/dL Plasma Lactic Acid Teo 1.7 (0.7-2.0) mmol/L Calcium 9.8 (8.4-10.2) mg/dL Total Bilirubin 0.5 (0.2-1.3) mg/dL AST 61 H (17-59) U/L ALT 93 H (4-49) U/L Alkaline Phosphatase 118 (38-126) U/L Troponin I (0.000-0.034) ng/mL NT-Pro-B Natriuret Pep pg/mL Total Protein 6.4 (6.3-8.2) g/dL Albumin 4.1 (3.5-5.0) g/dL 09/01/20 09/01/20 Range/Units 11:25 11:25 WBC (3.8-10.6) k/uL RBC (4.30-5.90) m/uL Hgb (13.0-17.5) gm/dL Hct (39.0-53.0) % MCV (80.0-100.0) fL MCH (25.0-35.0) pg MCHC (31.0-37.0) g/dL RDW (11.5-15.5) % Plt Count (150-450) k/uL MPV Neutrophils % % Lymphocytes % % Monocytes % % Eosinophils % % Basophils % % Neutrophils # (1.3-7.7) k/uL Lymphocytes # (1.0-4.8) k/uL Monocytes # (0-1.0) k/uL Eosinophils # (0-0.7) k/uL Basophils # (0-0.2) k/uL Hypochromasia Anisocytosis Sodium (137-145) mmol/L Potassium (3.5-5.1) mmol/L Chloride (98-107) mmol/L Carbon Dioxide (22-30) mmol/L Anion Gap mmol/L BUN (9-20) mg/dL Creatinine (0.66-1.25) mg/dL Est GFR (CKD-EPI)AfAm (>60 ml/min/1.73 sqM) Est GFR (CKD-EPI)NonAf (>60 ml/min/1.73 sqM) Glucose (74-99) mg/dL Plasma Lactic Acid Teo (0.7-2.0) mmol/L Calcium (8.4-10.2) mg/dL Total Bilirubin (0.2-1.3) mg/dL AST (17-59) U/L ALT (4-49) U/L Alkaline Phosphatase (38-126) U/L Troponin I <0.012 (0.000-0.034) ng/mL NT-Pro-B Natriuret Pep 357 pg/mL Total Protein (6.3-8.2) g/dL Albumin (3.5-5.0) g/dL - Radiology Data Radiology results: image reviewed (Chest x-ray shows borderline heart size with interstitial prominence. Consider CHF.) Disposition Clinical Impression: Congestive heart failure Disposition: ADMITTED IP TO THIS HOSP Is patient prescribed a controlled substance at d/c from ED?: No Referrals: Rk Keene III, MD [Primary Care Provider] - 1-2 days Decision Time: 12:12
[2020-09-01 11:40] LABS: Anisocytosis Moderate; Basophils % (A) 0 %; Eosinophils # (A) 0.1 k/uL (0-0.7); Eosinophils % (A) 1 %; HCT 38.7 % (39.0-53.0); HGB 12.5 gm/dL (13.0-17.5); Hypochromasia Slight; Lymphocytes # (A) 0.7 k/uL (1.0-4.8); Lymphocytes % (A) 5 %; MCH 28.9 pg (25.0-35.0); MCHC 32.3 g/dL (31.0-37.0); MCV 89.4 fL (80.0-100.0); Mean Platelet Volume 10.2; Monocytes # (A) 0.5 k/uL (0-1.0); Monocytes % (A) 4 %; Neutrophils # (A) 13.5 k/uL (1.3-7.7); Neutrophils % (A) 91 %; Platelet Count 148 k/uL (150-450); RBC 4.33 m/uL (4.30-5.90); RDW 20.9 % (11.5-15.5); WBC 14.8 k/uL (3.8-10.6)
[2020-09-01 11:47] LABS: Albumin 4.1 g/dL (3.5-5.0); Calcium 9.8 mg/dL (8.4-10.2); Potassium 4.1 mmol/L (3.5-5.1); Total Bilirubin 0.5 mg/dL (0.2-1.3); Total Protein 6.4 g/dL (6.3-8.2)
--- NOTE | 2020-09-01 12:10 | XR ---
EXAMINATION TYPE: XR chest 2V DATE OF EXAM: 09/01/2020 COMPARISON: 08/21/2020 HISTORY: 70-year-old male difficulty breathing, shortness of breath TECHNIQUE: AP and lateral views FINDINGS: Heart upper limits of normal in size. Diffuse interstitial/vascular prominence. No sizable pleural ef fusion. Some opacity at the right base has a more strandy appearance suggesting atelectasis. Partiall y visualized right shoulder arthroplasty. IMPRESSION: Borderline heart size with interstitial changes. Consider mild CHF with pulmonary vascular congestion versus bronchitis, chronic asthma, or early atypical pneumonia.
[2020-09-01] MEDS ORDERED: ASPIRIN 325 MG TAB PO STA (12:13)
[2020-09-01] MEDS ORDERED: NITROGLYCERIN OINT 1 INCH/GM PACKET TOPICAL SCH (13:00)
[2020-09-01] MEDS ORDERED: NITROGLYCERIN SL TABS 0.4 MG TAB SUBLINGUAL PRN (13:46)
--- NOTE | 2020-09-01 13:53 | P.CRDCN ---
History of Present Illness Consult date: 09/01/20 History of present illness: HISTORY OF PRESENT ILLNESS: This is a 70-year-old male with a past medical history significant for coronary artery disease with previous stent placement, chronic kidney disease, congestive heart failure, hypertension, hyperlipidemia, and diabetes mellitus. Patient follows in the office with Dr. Frazier. We have been asked to see the patient in consultation for congestive heart failure. Patient examined at the bedside. Patient states over the past few days he has become increasingly short of breath. He reports developing a nonproductive cough that has been ongoing for the past 3 days. He also reports increased lower extremity edema. Patient states he has been compliant with his diuretics. He states he has not had any increased salt intake. He reports wearing compression stockings at home and elevating his feet when he is sitting in his chair. He denies chest pain or pressure. Patient states he called the cardiology office this morning and was asking if he could increase his Lasix but was directed to come to the emergency room for further evaluation. EKG reveals sinus mechanism with no signs of acute ischemia Chest xray borderline heart size with interstitial changes. Consider mild CHF with pulmonary vascular congestion versus bronchitis, chronic asthma, or early atypical pneumonia Laboratory data: WBC 14.8. Hemoglobin 12.5. Platelet count 148. Sodium 138. Potassium 4.1. BUN 66. Creatinine 1.49. Lactic acid 1.7. Troponin negative 1. BNP 357. Current home cardiac medications include Aldactone 25 mg daily, metoprolol tartrate 50 mg the morning and 25 mg in the afternoon, hydralazine 50 mg 3 times a day, Imdur 30 mg daily, Lasix 40 mg twice a day, Lipitor 80 mg daily, and aspirin 81 mg daily Most recent echocardiogram obtained in March 2020 revealed ejection fraction greater than 55%, mild mitral regurgitation, mild tricuspid regurgitation Cardiac catheterization history: 2015 revealing patent stents in the proximal and mid RCA. Intermediate disease in the left circumflex. Mild disease in the LAD. FFR of the left circumflex was performed and found to be nonischemic. Patient had a nuclear stress test performed in the office on 05/18/2020 which revealed abnormal myocardial perfusion imaging with evidence of reversible defect of small size and mild intensity involving the apex of the left ventricle. Patient followed up on an outpatient basis with Dr. Harrison patient chose to undergo medical management instead of coronary angiogram. REVIEW OF SYSTEMS: At the time of my exam: CONSTITUTIONAL: Denies fever or chills. HEENT: Denies blurred vision, vision changes, or eye pain. Denies hemoptysis CARDIOVASCULAR: Denies chest pain. Denies orthopnea. Denies PND. Denies palpitations RESPIRATORY: + shortness of breath. + cough GASTROINTESTINAL: Denies abdominal pain. Denies nausea or vomiting. HEMATOLOGIC: Denies bleeding disorders. GENITOURINARY: Denies any blood in urine. SKIN: Denies pruitis. Denies rash. PHYSICAL EXAM: VITAL SIGNS: Reviewed. GENERAL: Well-developed in no acute distress. HEENT: Head is normocephalic. Pupils are equal, round. Sclerae anicteric. Mucous membranes of the mouth are moist. Neck supple. No JVD or thyromegaly LUNGS: Respirations even and unlabored. Lungs with bibasilar rales HEART: Regular rate and rhythm. S1 and S2 heard. ABDOMEN: Soft. Nondistended. Nontender. EXTREMITIES: Normal range of motion. No clubbing or cyanosis. Peripheral pulses intact. 3+ bilateral lower extremity edema NEUROLOGIC: Awake and alert. Oriented x 3. ASSESSMENT: Acute exacerbation of chronic diastolic heart failure, ejection fraction 55%, despite normal BNP, patient clinically volume overloaded Coronary artery disease with previous stenting to proximal and mid RCA Chronic kidney disease Hypertension Hyperlipidemia Diabetes mellitus Obesity: BMI 35.9 Leukocytosis, on daily oral prednisone outpatient PLAN: No need to repeat echo Continue IV lasix Monitor kidney function Daily weights Accurate I&O Decrease aspirin to 81 mg daily. Discontinue nitro paste Further recommendations pending patient's course Nurse practitioner note has been reviewed by physician. Signing provider agrees with the documented findings, assessment, and plan of care. Past Medical History Past Medical History: Coronary Artery Disease (CAD), Chest Pain / Angina, Heart Failure, COPD, CVA/TIA, Deep Vein Thrombosis (DVT), GERD/Reflux, Hyperlipidemia, Hypertension, Osteoarthritis (OA), Pneumonia, Prostate Disorder, Renal Disease, Respiratory Disorder, Sleep Apnea/CPAP/BIPAP Additional Past Medical History / Comment(s): IDDM type II, neuropathy bilateral hands/feet, hx severe sepsis secondary to discitis/osteomylitis, urinary retention with granados during sepsis, Hx DVT R arm/sepsis d/t cellulitis in legs, venous insufficiency, swelling in legs and feet., spondylolsis, cervical, low back and bilateral knee pain, DDD, gout, chronic respiratory failure, CALLI with occasional Cpap/O2 at 4L/NC-pt states he does not tolerate well, Oxygen @ 4L prn during the day if ill, nonsustained vtach, TIAs, small vessel disease, IDDM type II, neuropathy, BPH, diverticular disease, colon polyps, sinus problems, seasonal allergies, Mixed Connective Tissue Disease causes hallucinations/confusion with sepsis/fever. History of Any Multi-Drug Resistant Organisms: None Reported Past Surgical History: Back Surgery, Heart Catheterization With Stent, Joint Replacement, Orthopedic Surgery Additional Past Surgical History / Comment(s): Bilateral knee arthroscopies, total L knee arthroplasty, R total shoulder arthroplasty, L hand injury with repair, low back surgery, PCI with 3 stents, colonoscopies/polypectomies, cervical/lumbar epidural injections, bilateral cataract removals/lens implants. Past Anesthesia/Blood Transfusion Reactions: No Reported Reaction Additional Past Anesthesia/Blood Transfusion Reaction / Comment(s): STATES "HAD A HARD TIME WITH BREATHING POST OP" Date of Last Stent Placement:: 2009 Past Psychological History: No Psychological Hx Reported Smoking Status: Former smoker - Past Family History Father Family Medical History: CVA/TIA, Hyperlipidemia, Hypertension Additional Family Medical History / Comment(s): Father of a CVA at the age of 55 yrs. Mother Family Medical History: No Reported History Additional Family Medical History / Comment(s): Mother lived to be 93 yrs old. Medications and Allergies Home Medications Medication Instructions Recorded Confirmed Type Atorvastatin [Lipitor] 80 mg PO HS 05/08/15 09/01/20 History Fluticasone/Vilanterol [Breo 1 puff INHALATION RT-HS 03/12/18 09/01/20 History Ellipta 100-25 Mcg Inhaler] Pramipexole Di-HCl [Mirapex] 1 mg PO HS 09/02/19 09/01/20 History Omeprazole 20 mg PO AC-BRKFST 11/23/19 09/01/20 History Tamsulosin [Flomax] 0.4 mg PO DAILY 11/23/19 09/01/20 History Aspirin EC [Ecotrin Low Dose] 81 mg PO DAILY 12/09/19 09/01/20 History Colchicine 0.6 mg PO BID 03/23/20 09/01/20 History Magnesium 250 mg PO DAILY 03/23/20 09/01/20 History hydrALAZINE HCL 50 mg PO Q8HR 03/23/20 09/01/20 History Metoprolol Tartrate [Lopressor] 25 mg PO HS 30 Days #30 tab 03/30/20 09/01/20 Rx Metoprolol Tartrate [Lopressor] 50 mg PO DAILY 30 Days #30 tab 03/30/20 09/01/20 Rx QUEtiapine [SEROquel] 25 mg PO BID 30 Days #60 tab 03/30/20 09/01/20 Rx Folic Acid 1 mg PO DAILY 04/19/20 09/01/20 History Spironolactone 25 mg PO DAILY 04/19/20 09/01/20 History Isosorbide Mononitrate [Isosorbide 30 mg PO DAILY 06/15/20 09/01/20 History Mononitrate ER] Melatonin 3 mg PO HS PRN 06/15/20 09/01/20 History Nitroglycerin Sl Tabs [Nitrostat] 0.4 mg SUBLINGUAL Q5M PRN 06/15/20 09/01/20 History oxyCODONE-APAP 10-325MG [Percocet 2 tab PO Q4H PRN 06/15/20 09/01/20 History 10-325 mg] Albuterol Nebulized [Ventolin 2.5 mg INHALATION RT-QID PRN 08/21/20 09/01/20 History Nebulized] Cyclobenzaprine HCl 10 mg PO BID 08/21/20 09/01/20 History Ergocalciferol [Vitamin D2 (1250 1,250 mcg PO Q14D 08/21/20 09/01/20 History Mcg = 75240 Iu)] Febuxostat [Uloric] 40 mg PO DAILY 08/21/20 09/01/20 History Furosemide [Lasix] 40 mg PO BID 08/21/20 09/01/20 History Furosemide [Lasix] 40 mg PO DAILY PRN 08/21/20 09/01/20 History Ipratropium-Albuterol Nebulize 3 ml INHALATION RT-QID PRN 08/21/20 09/01/20 History [Duoneb 0.5 mg-3 mg/3 ml Soln] calcitrioL [Rocaltrol] 0.25 mcg PO TU 08/21/20 09/01/20 History predniSONE [Deltasone] 20 mg PO DAILY 08/21/20 09/01/20 History Cyanocobalamin [Vitamin B-12] 1,000 mcg PO DAILY #60 tablet 08/24/20 09/01/20 Rx Insulin Glargine [Lantus] 30 unit SQ HS #0 08/24/20 09/01/20 Rx Pyridoxine [Vitamin B-6] 50 mg PO DAILY #30 tab 08/24/20 09/01/20 Rx Calcium Carb-Vit D 500Mg-5Mcg 1 tab PO TID-W/MEALS 09/01/20 09/01/20 History [Oscal 500+D 5 Mcg (200 Iu)] Allergies Allergy/AdvReac Type Severity Reaction Status Date / Time acetaminophen [From Tylenol] AdvReac kidney/liver Verified 09/01/20 11:48 issues Physical Exam Vitals: Vital Signs Temp Pulse Resp BP Pulse Ox 09/01/20 10:52 97.6 F 72 20 129/60 94 L Intake and Output 08/31/20 09/01/20 09/01/20 22:59 06:59 14:59 Other: Weight 103.873 kg Results 09/01/20 11:25 09/01/20 11:25 Cardiac Enzymes 09/01/20 09/01/20 Range/Units 11:25 11:25 AST 61 H (17-59) U/L Troponin I <0.012 (0.000-0.034) ng/mL CBC 09/01/20 Range/Units 11:25 WBC 14.8 H (3.8-10.6) k/uL RBC 4.33 (4.30-5.90) m/uL Hgb 12.5 L (13.0-17.5) gm/dL Hct 38.7 L (39.0-53.0) % Plt Count 148 L (150-450) k/uL Comprehensive Metabolic Panel 09/01/20 Range/Units 11:25 Sodium 138 (137-145) mmol/L Potassium 4.1 (3.5-5.1) mmol/L Chloride 100 (98-107) mmol/L Carbon Dioxide 28 (22-30) mmol/L BUN 66 H (9-20) mg/dL Creatinine 1.49 H (0.66-1.25) mg/dL Glucose 199 H (74-99) mg/dL Calcium 9.8 (8.4-10.2) mg/dL AST 61 H (17-59) U/L ALT 93 H (4-49) U/L Alkaline Phosphatase 118 (38-126) U/L Total Protein 6.4 (6.3-8.2) g/dL Albumin 4.1 (3.5-5.0) g/dL Current Medications Generic Name Dose Route Start Last Admin Trade Name Freq PRN Reason Stop Dose Admin Aspirin 325 mg 09/02/20 09:00 Aspirin 325 Mg Tab PO DAILY JOSE Furosemide 40 mg 09/01/20 21:00 Furosemide 10 Mg/Ml 4 Ml Vial IV Q12HR JOSE Nitroglycerin 1 inch 09/01/20 13:00 09/01/20 13:12 Nitroglycerin Oint 1 Inch/Gm Packet TOPICAL 1 inch QID JOSE Administration Sodium Chloride 10 ml 09/01/20 21:00 Sodium Chloride 0.9% Flush 10 Ml Syringe IV BID JOSE Intake and Output 08/31/20 09/01/20 09/01/20 22:59 06:59 14:59 Other: Weight 103.873 kg Patient Weight 09/02/20 06:59 Weight 103.873 kg 09/01/20 11:25 09/01/20 11:25
[2020-09-01] MEDS: hydrALAZINE HCL 50 MG TAB PO SCH (19:28)
[2020-09-01] MEDS ORDERED: MELATONIN 3 MG TABLET PO PRN (20:04)
[2020-09-01] MEDS ORDERED: ALBUTEROL NEBULIZED 2.5 MG/3 ML INHALATION PRN (20:04)
[2020-09-01 20:07] LABS: Glucose,Whole Blood 177 mg/dL (75-99)
--- NOTE | 2020-09-01 20:58 | P.HPIM ---
History of Present Illness H&P Date: 09/01/20 Chief Complaint: SLOAN This is a pleasant 70 years old male with past medical history of hypertension, hyperlipidemia, coronary artery disease status post stent, COPD, deep venous thrombosis, currently not on anticoagulation, osteoarthritis, GERD, sleep apnea on CPAP/BiPAP, chronic low back. Chronic hypoxic respiratory failure, nonsustained V. tach, TIA, type 2 diabetes mellitus with neuropathy, benign prostatic hypertrophy, mixed connective tissue disease and he f/u with , he is on prednisone 20 mg daily for this reason. Patient told me he does not use oxygen at home. And also he is noncompliant with his CPAP/BiPAP machine. Also he takes insulin as needed, he says whenever his sugars more than 120 he takes Levemir 30 units at bedtime. His PCP is Dr. Keene. Also he sees Dr. Harrison and Dr. De Los Santos. Patient presents to the hospital due to complaints of worsening shortness of breath and leg swelling for the past few days. Does have cough without much sputum production. Patient was unable to fit his shoes. No fever no chills. 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 Patient was recently discharged from the hospital on 08/24/2020. He was admitted to the hospital due to right eye floaters and was found to have vitreous hemorrhage, was evaluated by ophthalmology and recommends outpatient follow-up. Patient was also complaining of right leg weakness and pain which was thought to be due to radiculopathy and was discharged home after evaluation by neurology. Chest x-ray showed borderline heart size with interstitial changes. Consider mild CHF with pulmonary vascular congestion versus bronchitis, chronic asthma or early atypical pneumonia. EKG showed normal sinus rhythm. Patient had 2D echocardiogram done on 03/25/2020 showed ejection fraction 55% mild MR and TR. Lab data showed WBC 14.8 hemoglobin 12.5 and platelets 148 BUN 66 and creatinine 1.49 AST 61 ALT 93 and alk phos 118 Troponin x1 - proBNP is 357 Review of Systems Constitutional: Patient denies any fever or chills . No generalized weakness or weight loss. Abdomen: Patient denied nausea vomiting and diarrhea and abdominal pain. Cardiovascular: Patient denies any chest pain.Patient does have shortness of breath. And leg swelling. No palpitations.. Respiratory: patient denied any cough or sputum production. No shortness of breath Neurologic: Patient denied any numbness or tingling headache. Musculoskeletal: Patient denies any complaints of joint swelling or deformity. Skin: Negative Psychiatric: Negative Endocrine: No heat or cold intolerance. No recent weight gain. Genitourinary: No dysuria or hematuria. All other 14 point ROS negative except the above Past Medical History Past Medical History: Coronary Artery Disease (CAD), Chest Pain / Angina, Heart Failure, COPD, CVA/TIA, Deep Vein Thrombosis (DVT), GERD/Reflux, Hyperlipidemia, Hypertension, Osteoarthritis (OA), Pneumonia, Prostate Disorder, Renal Disease, Respiratory Disorder, Sleep Apnea/CPAP/BIPAP Additional Past Medical History / Comment(s): IDDM type II, neuropathy bilateral hands/feet, hx severe sepsis secondary to discitis/osteomylitis, urinary retenti on with granados during sepsis, Hx DVT R arm/sepsis d/t cellulitis in legs, venous insufficiency, swelling in legs and feet., spondylolsis, cervical, low back and bilateral knee pain, DDD, gout, chronic respiratory failure, CALLI with occasional Cpap/O2 at 4L/NC-pt states he does not tolerate well, Oxygen @ 4L prn during the day if ill, nonsustained vtach, TIAs, small vessel disease, IDDM type II, ne uropathy, BPH, diverticular disease, colon polyps, sinus problems, seasonal allergies, Mixed Connective Tissue Disease causes hallucinations/confusion with sepsis/fever. History of Any Multi-Drug Resistant Organisms: None Reported Past Surgical History: Back Surgery, Heart Catheterization With Stent, Joint Replacement, Orthopedic Surgery Additional Past Surgical History / Comment(s): Bilateral knee arthroscopies, total L knee arthroplasty, R total shoulder arthroplasty, L hand injury with repair, low back surgery, PCI with 3 stents, colonoscopies/polypectomies, cervical/lumbar epidural injections, bilateral cataract removals/lens implants. Past Anesthesia/Blood Transfusion Reactions: No Reported Reaction Additional Past Anesthesia/Blood Transfusion Reaction / Comment(s): STATES "HAD A HARD TIME WITH BREATHING POST OP" Date of Last Stent Placement:: 2009 Past Psychological History: No Psychological Hx Reported Smoking Status: Former smoker - Past Family History Father Family Medical History: CVA/TIA, Hyperlipidemia, Hypertension Additional Family Medical History / Comment(s): Father of a CVA at the age of 55 yrs. Mother Family Medical History: No Reported History Additional Family Medical History / Comment(s): Mother lived to be 93 yrs old. Medications and Allergies Home Medications Medication Instructions Recorded Confirmed Type Atorvastatin [Lipitor] 80 mg PO HS 05/08/15 09/01/20 History Fluticasone/Vilanterol [Breo 1 puff INHALATION RT-HS 03/12/18 09/01/20 History Ellipta 100-25 Mcg Inhaler] Pramipexole Di-HCl [Mirapex] 1 mg PO HS 09/02/19 09/01/20 History Omeprazole 20 mg PO AC-BRKFST 11/23/19 09/01/20 History Tamsulosin [Flomax] 0.4 mg PO DAILY 11/23/19 09/01/20 History Aspirin EC [Ecotrin Low Dose] 81 mg PO DAILY 12/09/19 09/01/20 History Colchicine 0.6 mg PO BID 03/23/20 09/01/20 History Magnesium 250 mg PO DAILY 03/23/20 09/01/20 History hydrALAZINE HCL 50 mg PO Q8HR 03/23/20 09/01/20 History Metoprolol Tartrate [Lopressor] 25 mg PO HS 30 Days #30 tab 03/30/20 09/01/20 Rx Metoprolol Tartrate [Lopressor] 50 mg PO DAILY 30 Days #30 tab 03/30/20 09/01/20 Rx QUEtiapine [SEROquel] 25 mg PO BID 30 Days #60 tab 03/30/20 09/01/20 Rx Folic Acid 1 mg PO DAILY 04/19/20 09/01/20 History Spironolactone 25 mg PO DAILY 04/19/20 09/01/20 History Isosorbide Mononitrate [Isosorbide 30 mg PO DAILY 06/15/20 09/01/20 History Mononitrate ER] Melatonin 3 mg PO HS PRN 06/15/20 09/01/20 History Nitroglycerin Sl Tabs [Nitrostat] 0.4 mg SUBLINGUAL Q5M PRN 06/15/20 09/01/20 History oxyCODONE-APAP 10-325MG [Percocet 2 tab PO Q4H PRN 06/15/20 09/01/20 History 10-325 mg] Albuterol Nebulized [Ventolin 2.5 mg INHALATION RT-QID PRN 08/21/20 09/01/20 History Nebulized] Cyclobenzaprine HCl 10 mg PO BID 08/21/20 09/01/20 History Ergocalciferol [Vitamin D2 (1250 1,250 mcg PO Q14D 08/21/20 09/01/20 History Mcg = 51722 Iu)] Febuxostat [Uloric] 40 mg PO DAILY 08/21/20 09/01/20 History Furosemide [Lasix] 40 mg PO BID 08/21/20 09/01/20 History Furosemide [Lasix] 40 mg PO DAILY PRN 08/21/20 09/01/20 History Ipratropium-Albuterol Nebulize 3 ml INHALATION RT-QID PRN 08/21/20 09/01/20 History [Duoneb 0.5 mg-3 mg/3 ml Soln] calcitrioL [Rocaltrol] 0.25 mcg PO TU 08/21/20 09/01/20 History predniSONE [Deltasone] 20 mg PO DAILY 08/21/20 09/01/20 History Cyanocobalamin [Vitamin B-12] 1,000 mcg PO DAILY #60 tablet 08/24/20 09/01/20 Rx Insulin Glargine [Lantus] 30 unit SQ HS #0 08/24/20 09/01/20 Rx Pyridoxine [Vitamin B-6] 50 mg PO DAILY #30 tab 08/24/20 09/01/20 Rx Calcium Carb-Vit D 500Mg-5Mcg 1 tab PO TID-W/MEALS 09/01/20 09/01/20 History [Oscal 500+D 5 Mcg (200 Iu)] Allergies Allergy/AdvReac Type Severity Reaction Status Date / Time acetaminophen [From Tylenol] AdvReac kidney/liver Verified 09/01/20 11:48 issues Physical Exam Vitals: Vital Signs Temp Pulse Resp BP Pulse Ox 09/01/20 10:52 97.6 F 72 20 129/60 94 L Intake and Output 08/31/20 09/01/20 09/01/20 22:59 06:59 14:59 Other: Weight 103.873 kg PHYSICAL EXAMINATION: Patient is lying in the bed comfortably, no acute distress, awake alert and oriented.. HEENT: Normocephalic. Neck is supple. Pupils reactive. Nostrils clear. Oral cavity is moist. Ears reveal no drainage. Neck reveals no JVD, carotid bruits, or thyromegaly. CHEST EXAMINATION: Trachea is central. Symmetrical expansion. Bibasilar diminished sounds no rhonchi or crackles. No wheezing.. CARDIAC: Normal S1, S2 with no gallops. No murmurs ABDOMEN: Soft. Bowel sounds normal. No organomegaly. No abdominal bruits. Extremities: 3+ edema. No clubbing or cyanosis Neurologically awake, alert, oriented x3 with well-coordinated movements. No focal deficits noted Skin: No rash or skin lesions. Psychiatric: Coperative. Nonsuicidal Musculoskeletal: No joint swelling or deformity. Normal range of motion. Results CBC & Chem 7: 09/01/20 11:25 09/01/20 11:25 Labs: Abnormal Lab Results - Last 24 Hours (Table) 09/01/20 09/01/20 Range/Units 11:25 11:25 WBC 14.8 H (3.8-10.6) k/uL Hgb 12.5 L (13.0-17.5) gm/dL Hct 38.7 L (39.0-53.0) % RDW 20.9 H (11.5-15.5) % Plt Count 148 L (150-450) k/uL Neutrophils # 13.5 H (1.3-7.7) k/uL Lymphocytes # 0.7 L (1.0-4.8) k/uL BUN 66 H (9-20) mg/dL Creatinine 1.49 H (0.66-1.25) mg/dL Glucose 199 H (74-99) mg/dL AST 61 H (17-59) U/L ALT 93 H (4-49) U/L Assessment and Plan Assessment: Worsening shortness of breath and leg swelling secondary to CHF with mild exacerbation Acute on chronic CHF with diastolic function ejection fraction 55% Acute and chronic kidney disease stage III. Baseline creatinine 1.2 Mild transaminitis Hypertension Diabetes type 2 insulin-dependent Diabetic peripheral neuropathy Hyperlipidemia Coronary disease history of stent placement COPD not on home oxygen GERD Obstructive sleep apnea not using CPAP at home History of TIA BPH Mixed connective tissue disease on prednisone 20 mg daily. Chronic low back pain History of recent right eye floaters due to vitreous hemorrhage improved now. History of osteomyelitis/lumbar spine discitis, finished 6 weeks of therapy. History of the venous thrombosis, currently not on anticoagulation DVT prophylaxis with heparin subcu Plan: Patient will be continued Lasix 5 mg twice daily. Current with aspirin statins and Imdur and metoprolol. Continue with duo nebs, Breo and oxygen supplementation as needed. Continue pain management with [place] 10 as per home regimen. Follow-up renal function. Patient was started on antibiotics in the form of azithromycin for possible early infiltrate in the chest x-ray and leukocytosis.. Follow-up CBC and BMP tomorrow. Cardiology is on board and further recommendations based on clinical course. Prognosis is guarded at this time. Discussed with his at bedside in detail. Time with Patient: Greater than 30
[2020-09-01] MEDS: METOPROLOL TARTRATE 25 MG TAB PO SCH (21:22)
[2020-09-01] MEDS: INSULIN DETEMIR (LEVEMIR) 100 UNIT/ML SYR SQ SCH (21:23)
[2020-09-01] MEDS: COLCHICINE 0.6 MG EACH PO SCH (21:23)
[2020-09-01] MEDS: FUROSEMIDE 10 MG/ML 4 ML VIAL IV SCH (21:23)
[2020-09-01] MEDS: PRAMIPEXOLE 1 MG TAB PO SCH (21:23)
[2020-09-01] MEDS: ATORVASTATIN 80 MG TAB PO SCH (21:23)
[2020-09-01] MEDS: AZITHROMYCIN 500 MG TAB PO SCH (21:25)
[2020-09-01] MEDS: QUEtiapine 25 MG TAB PO SCH (21:25)
[2020-09-01] MEDS: oxyCODONE-APAP 10-325MG 1 EACH TAB PO PRN (21:29)
[2020-09-02] MEDS: hydrALAZINE HCL 50 MG TAB PO SCH ×4 (00:23→23:41)
[2020-09-02] MEDS: HEPARIN SODIUM,PORCINE/PF 5,000 UNIT/0.5 ML SYRINGE SQ SCH ×4 (00:23→23:41)
[2020-09-02 06:08] LABS: Glucose,Whole Blood 68 mg/dL (75-99)
[2020-09-02 06:21] LABS: Glucose,Whole Blood 61 mg/dL (75-99)
[2020-09-02] MEDS: PANTOPRAZOLE 40 MG TABLET PO SCH (06:25)
[2020-09-02] MEDS: CALCIUM CARB-VIT D 500 MG-5 MCG TAB PO SCH ×3 (06:26→17:38)
[2020-09-02] MEDS: oxyCODONE-APAP 10-325MG 1 EACH TAB PO PRN ×4 (06:27→21:46)
[2020-09-02] MEDS ORDERED: DEXTROSE 50% SYRINGE 50 ML IVP ONE (06:34)
[2020-09-02 06:35] LABS: Glucose,Whole Blood 63 mg/dL (75-99)
[2020-09-02 06:49] LABS: Glucose,Whole Blood 130 mg/dL (75-99)
[2020-09-02] MEDS: IPRATROPIUM-ALBUTEROL 3 ML NEB INHALATION PRN ×4 (07:53→19:49)
[2020-09-02] MEDS: SYMBICORT 80-4.5 MCG INHALER INHALATION SCH ×2 (07:53→19:49)
[2020-09-02 08:01] LABS: Anisocytosis Moderate; Basophils # (A) 0.1 k/uL (0-0.2); Basophils % (A) 1 %; Eosinophils # (A) 0.2 k/uL (0-0.7); Eosinophils % (A) 1 %; HCT 40.3 % (39.0-53.0); HGB 13.1 gm/dL (13.0-17.5); Hypochromasia Slight; Lymphocytes # (A) 2.3 k/uL (1.0-4.8); Lymphocytes % (A) 21 %; MCH 29.5 pg (25.0-35.0); MCHC 32.6 g/dL (31.0-37.0); MCV 90.5 fL (80.0-100.0); Mean Platelet Volume 10.5; Monocytes # (A) 0.7 k/uL (0-1.0); Monocytes % (A) 6 %; Neutrophils # (A) 7.7 k/uL (1.3-7.7); Neutrophils % (A) 70 %; Platelet Count 143 k/uL (150-450); RBC 4.46 m/uL (4.30-5.90)
[2020-09-02 08:02] LABS: Calcium 9.1 mg/dL (8.4-10.2); Potassium 3.8 mmol/L (3.5-5.1)
[2020-09-02] MEDS ORDERED: ASPIRIN 325 MG TAB PO SCH (09:00)
[2020-09-02] MEDS: TAMSULOSIN 0.4 MG CAP.ER.24H PO SCH (09:48)
[2020-09-02] MEDS: QUEtiapine 25 MG TAB PO SCH ×2 (09:48→21:20)
[2020-09-02] MEDS: SPIRONOLACTONE 25 MG TAB PO SCH (09:49)
[2020-09-02] MEDS: ASPIRIN 81 MG PO SCH (09:49)
[2020-09-02] MEDS: ISOSORBIDE MONONITRATE ER 30 MG TAB.ER.24H PO SCH (09:49)
[2020-09-02] MEDS: METOPROLOL TARTRATE 50 MG TAB PO SCH (09:49)
[2020-09-02] MEDS: PYRIDOXINE 50 MG TAB PO SCH (09:49)
[2020-09-02] MEDS: FUROSEMIDE 10 MG/ML 4 ML VIAL IV SCH (09:49)
[2020-09-02] MEDS: FOLIC ACID 1 MG TAB PO SCH (09:49)
[2020-09-02] MEDS: allopurinoL 100 MG TAB PO SCH (09:49)
[2020-09-02] MEDS: COLCHICINE 0.6 MG EACH PO SCH ×2 (09:49→21:21)
[2020-09-02] MEDS: CYANOCOBALAMIN 500 MCG TAB PO SCH (09:50)
[2020-09-02] MEDS: predniSONE 20 MG TAB PO SCH (09:50)
--- NOTE | 2020-09-02 11:41 | P.PN ---
Subjective Progress Note Date: 09/02/20 HISTORY OF PRESENT ILLNESS: This is a 70-year-old male with a past medical history significant for coronary artery disease with previous stent placement, chronic kidney disease, congestive heart failure, hypertension, hyperlipidemia, and diabetes mellitus. Patient follows in the office with Dr. Frazier. We have been asked to see the patient in consultation for congestive heart failure. Patient examined at the bedside. Patient states over the past few days he has become increasingly short of breath. He reports developing a nonproductive cough that has been ongoing for the past 3 days. He also reports increased lower extremity edema. Patient states he has been compliant with his diuretics. He states he has not had any increased salt intake. He reports wearing compression stockings at home and elevating his feet when he is sitting in his chair. He denies chest pain or pressure. Patient states he called the cardiology office this morning and was asking if he could increase his Lasix but was directed to come to the emergency room for further evaluation. EKG reveals sinus mechanism with no signs of acute ischemia Chest xray borderline heart size with interstitial changes. Consider mild CHF with pulmonary vascular congestion versus bronchitis, chronic asthma, or early atypical pneumonia Laboratory data: WBC 14.8. Hemoglobin 12.5. Platelet count 148. Sodium 138. Potassium 4.1. BUN 66. Creatinine 1.49. Lactic acid 1.7. Troponin negative 1. BNP 357. Current home cardiac medications include Aldactone 25 mg daily, metoprolol tartrate 50 mg the morning and 25 mg in the afternoon, hydralazine 50 mg 3 times a day, Imdur 30 mg daily, Lasix 40 mg twice a day, Lipitor 80 mg daily, and aspirin 81 mg daily Most recent echocardiogram obtained in March 2020 revealed ejection fraction greater than 55%, mild mitral regurgitation, mild tricuspid regurgitation Cardiac catheterization history: 2015 revealing patent stents in the proximal and mid RCA. Intermediate disease in the left circumflex. Mild disease in the LAD. FFR of the left circumflex was performed and found to be nonischemic. Patient had a nuclear stress test performed in the office on 05/18/2020 which revealed abnormal myocardial perfusion imaging with evidence of reversible defect of small size and mild intensity involving the apex of the left ventricle. Patient followed up on an outpatient basis with Dr. Harrison patient chose to undergo medical management instead of coronary angiogram. 09/02/2020 Patient examined this morning at the bedside. Patient denies chest pain or pressure. He continues to report mild shortness of breath with a nonproductive cough. He continues to have lower extremity edema. Patient remains on IV Lasix. Creatinine today is 1.55, up from 1.4 yesterday. Fluid balance over the last 24 hours is -1300cc. PHYSICAL EXAM: VITAL SIGNS: Reviewed. GENERAL: Well-developed in no acute distress. HEENT: Head is normocephalic. Pupils are equal, round. Sclerae anicteric. Mucous membranes of the mouth are moist. Neck supple. No JVD or thyromegaly LUNGS: Respirations even and unlabored. Lungs with bibasilar rales HEART: Regular rate and rhythm. S1 and S2 heard. ABDOMEN: Soft. Nondistended. Nontender. EXTREMITIES: Normal range of motion. No clubbing or cyanosis. Peripheral pulses intact. 2+ bilateral lower extremity edema NEUROLOGIC: Awake and alert. Oriented x 3. ASSESSMENT: Acute exacerbation of chronic diastolic heart failure, ejection fraction 55%, despite normal BNP, patient clinically volume overloaded Coronary artery disease with previous stenting to proximal and mid RCA Chronic kidney disease Hypertension Hyperlipidemia Diabetes mellitus Obesity: BMI 35.9 Leukocytosis, on daily oral prednisone outpatient PLAN: Continue IV lasix Monitor kidney function Daily weights Accurate I&O Further recommendations pending patient's course Nurse practitioner note has been reviewed by physician. Signing provider agrees with the documented findings, assessment, and plan of care. Objective - Vital Signs Vital signs: Vital Signs Temp 97.7 F 09/02/20 09:47 Pulse 60 09/02/20 11:19 Resp 17 09/02/20 09:47 BP 139/78 09/02/20 09:47 Pulse Ox 93 L 09/02/20 09:47 Intake & Output 09/01/20 09/02/20 09/02/20 18:59 06:59 18:59 Intake Total 300 450 600 Output Total 800 1250 450 Balance -500 -800 150 Weight 103.873 kg 102.1 kg Intake: Oral 300 450 600 Output: Urine 800 1250 450 Other: Voiding Method Urinal Urinal - Labs CBC & Chem 7: 09/02/20 07:37 09/02/20 07:37 Labs: Abnormal Lab Results - Last 24 Hours (Table) 09/01/20 09/01/20 09/01/20 Range/Units 11:25 11:25 20:01 WBC 14.8 H (3.8-10.6) k/uL Hgb 12.5 L (13.0-17.5) gm/dL Hct 38.7 L (39.0-53.0) % RDW 20.9 H (11.5-15.5) % Plt Count 148 L (150-450) k/uL Neutrophils # 13.5 H (1.3-7.7) k/uL Lymphocytes # 0.7 L (1.0-4.8) k/uL BUN 66 H (9-20) mg/dL Creatinine 1.49 H (0.66-1.25) mg/dL Glucose 199 H (74-99) mg/dL POC Glucose (mg/dL) 177 H (75-99) mg/dL AST 61 H (17-59) U/L ALT 93 H (4-49) U/L 09/02/20 09/02/20 09/02/20 Range/Units 06:06 06:19 06:33 WBC (3.8-10.6) k/uL Hgb (13.0-17.5) gm/dL Hct (39.0-53.0) % RDW (11.5-15.5) % Plt Count (150-450) k/uL Neutrophils # (1.3-7.7) k/uL Lymphocytes # (1.0-4.8) k/uL BUN (9-20) mg/dL Creatinine (0.66-1.25) mg/dL Glucose (74-99) mg/dL POC Glucose (mg/dL) 68 L 61 L 63 L (75-99) mg/dL AST (17-59) U/L ALT (4-49) U/L 09/02/20 09/02/20 09/02/20 Range/Units 06:48 07:37 07:37 WBC 11.0 H (3.8-10.6) k/uL Hgb (13.0-17.5) gm/dL Hct (39.0-53.0) % RDW 21.0 H (11.5-15.5) % Plt Count 143 L (150-450) k/uL Neutrophils # (1.3-7.7) k/uL Lymphocytes # (1.0-4.8) k/uL BUN 67 H (9-20) mg/dL Creatinine 1.55 H (0.66-1.25) mg/dL Glucose 173 H (74-99) mg/dL POC Glucose (mg/dL) 130 H (75-99) mg/dL AST (17-59) U/L ALT (4-49) U/L
[2020-09-02 11:58] LABS: Glucose,Whole Blood 145 mg/dL (75-99)
--- NOTE | 2020-09-02 12:40 | P.PN ---
Subjective Patient is admitted for HEART failure chronic diastolic dysfunction with acute exacerbation. Patient is definitely volume overloaded. Patient has significant edema. Patient doesn't have much of urine output I'll increase the dose of Lasix will also consult nephrology may end up needing IV Lasix drip. Patient says he doesn't have any significant improvement in his respiratory status of volume status. His BNP is only in 300s. Patient's creatinine is around 1.55 history is a slightly worse compared to admission. Patient baseline appears to be around 1.2, chest x-ray all is consistent with CHF. Constitutional: Denied any fatigue denied any fever. Cardio vascular: denied any chest pain, palpitations Gastrointestinal denied any nausea vomiting Pulmonary: As mentioned in HPI Neurologic denied any new focal deficits All inpatient medications were reviewed and appropriate changes in these medications as dictated in the interval history and assessment and plan. Objective - Vital Signs Vital signs: Vital Signs Temp 98.0 F 09/02/20 12:31 Pulse 63 09/02/20 12:31 Resp 18 09/02/20 12:31 BP 130/64 09/02/20 12:31 Pulse Ox 94 L 09/02/20 12:31 Intake & Output 09/01/20 09/02/20 09/02/20 18:59 06:59 18:59 Intake Total 300 450 600 Output Total 800 1250 450 Balance -500 -800 150 Weight 103.873 kg 102.1 kg Intake: Oral 300 450 600 Output: Urine 800 1250 450 Other: Voiding Method Urinal Urinal - Exam PHYSICAL EXAMINATION: GENERAL: The patient is alert and oriented x3, not in any acute distress. Well developed, well nourished. HEENT: Pupils are round and equally reacting to light. EOMI. No scleral icterus. No conjunctival pallor. Normocephalic, atraumatic. No pharyngeal erythema. No thyromegaly. CARDIOVASCULAR: S1 and S2 present. No murmurs, rubs, or gallops. PULMONARY: Chest is clear to auscultation, no wheezing or crackles. ABDOMEN: Soft, nontender, nondistended, normoactive bowel sounds. No palpable organomegaly. MUSCULOSKELETAL: No joint swelling or deformity. EXTREMITIES: No cyanosis, clubbing, patient has 3+ pitting pedal edema NEUROLOGICAL: Gross neurological examination did not reveal any focal deficits. SKIN: No rashes. - Labs CBC & Chem 7: 09/02/20 07:37 09/02/20 07:37 Labs: Abnormal Lab Results - Last 24 Hours (Table) 09/01/20 09/02/20 09/02/20 Range/Units 20:01 06:06 06:19 WBC (3.8-10.6) k/uL RDW (11.5-15.5) % Plt Count (150-450) k/uL BUN (9-20) mg/dL Creatinine (0.66-1.25) mg/dL Glucose (74-99) mg/dL POC Glucose (mg/dL) 177 H 68 L 61 L (75-99) mg/dL 09/02/20 09/02/20 09/02/20 Range/Units 06:33 06:48 07:37 WBC (3.8-10.6) k/uL RDW (11.5-15.5) % Plt Count (150-450) k/uL BUN 67 H (9-20) mg/dL Creatinine 1.55 H (0.66-1.25) mg/dL Glucose 173 H (74-99) mg/dL POC Glucose (mg/dL) 63 L 130 H (75-99) mg/dL 09/02/20 09/02/20 Range/Units 07:37 11:52 WBC 11.0 H (3.8-10.6) k/uL RDW 21.0 H (11.5-15.5) % Plt Count 143 L (150-450) k/uL BUN (9-20) mg/dL Creatinine (0.66-1.25) mg/dL Glucose (74-99) mg/dL POC Glucose (mg/dL) 145 H (75-99) mg/dL Assessment and Plan Plan: Worsening shortness of breath and leg swelling secondary to CHF with mild exacerbation Acute on chronic CHF with diastolic function ejection fraction 55% with probably acute exacerbation patient is definitely one more bloated. Increase the Lasix to 60 mg IV twice a day may need IV Lasix drip, nephrology will be consulted patient doesn't have much of urine output. Acute and chronic kidney disease stage III. Baseline creatinine 1.2 Mild transaminitis Hypertension Diabetes type 2 insulin-dependent, blood sugars are well controlled at this time Diabetic peripheral neuropathy Hyperlipidemia Coronary disease history of stent placement COPD not on home oxygen GERD Obstructive sleep apnea not using CPAP at home History of TIA BPH Mixed connective tissue disease on prednisone 20 mg daily. Chronic low back pain History of recent right eye floaters due to vitreous hemorrhage improved now. History of osteomyelitis/lumbar spine discitis, finished 6 weeks of therapy. History of the venous thrombosis, currently not on anticoagulation DVT prophylaxis with heparin subcu
[2020-09-02 13:23] VITALS: BMI 35.2
[2020-09-02 17:25] LABS: Glucose,Whole Blood 246 mg/dL (75-99)
[2020-09-02 20:27] LABS: Glucose,Whole Blood 328 mg/dL (75-99)
[2020-09-02] MEDS: ATORVASTATIN 80 MG TAB PO SCH (21:20)
[2020-09-02] MEDS: METOPROLOL TARTRATE 25 MG TAB PO SCH (21:20)
[2020-09-02] MEDS: AZITHROMYCIN 500 MG TAB PO SCH (21:20)
[2020-09-02] MEDS: PRAMIPEXOLE 1 MG TAB PO SCH (21:21)
[2020-09-02] MEDS: INSULIN DETEMIR (LEVEMIR) 100 UNIT/ML SYR SQ SCH (21:21)
[2020-09-02] MEDS: FUROSEMIDE 10 MG/ML 10 ML VIAL IV SCH (21:21)
[2020-09-02 22:26] LABS: Glucose,Whole Blood 202 mg/dL (75-99)
[2020-09-03 05:59] LABS: Glucose,Whole Blood 62 mg/dL (75-99)
[2020-09-03 06:15] LABS: Glucose,Whole Blood 57 mg/dL (75-99)
[2020-09-03] MEDS ORDERED: DEXTROSE 50% SYRINGE 50 ML IVP ONE (06:16)
[2020-09-03] MEDS: CALCIUM CARB-VIT D 500 MG-5 MCG TAB PO SCH ×3 (06:18→18:31)
[2020-09-03] MEDS: PANTOPRAZOLE 40 MG TABLET PO SCH (06:18)
[2020-09-03] MEDS: oxyCODONE-APAP 10-325MG 1 EACH TAB PO PRN ×3 (06:25→22:10)
[2020-09-03] MEDS ORDERED: GLUCAGON 1 MG/ML VIAL IM STA (06:27)
[2020-09-03] MEDS ORDERED: GLUCAGON 1 MG/ML VIAL ONE (06:28)
[2020-09-03 06:29] LABS: Glucose,Whole Blood 74 mg/dL (75-99)
--- NOTE | 2020-09-03 08:50 | P.PN ---
Subjective Progress Note Date: 09/03/20 HISTORY OF PRESENT ILLNESS: This is a 70-year-old male with a past medical history significant for coronary artery disease with previous stent placement, chronic kidney disease, congestive heart failure, hypertension, hyperlipidemia, and diabetes mellitus. Patient follows in the office with Dr. Frazier. We have been asked to see the patient in consultation for congestive heart failure. Patient examined at the bedside. Patient states over the past few days he has become increasingly short of breath. He reports developing a nonproductive cough that has been ongoing for the past 3 days. He also reports increased lower extremity edema. Patient states he has been compliant with his diuretics. He states he has not had any increased salt intake. He reports wearing compression stockings at home and elevating his feet when he is sitting in his chair. He denies chest pain or pressure. Patient states he called the cardiology office this morning and was asking if he could increase his Lasix but was directed to come to the emergency room for further evaluation. EKG reveals sinus mechanism with no signs of acute ischemia Chest xray borderline heart size with interstitial changes. Consider mild CHF with pulmonary vascular congestion versus bronchitis, chronic asthma, or early atypical pneumonia Laboratory data: WBC 14.8. Hemoglobin 12.5. Platelet count 148. Sodium 138. Potassium 4.1. BUN 66. Creatinine 1.49. Lactic acid 1.7. Troponin negative 1. BNP 357. Current home cardiac medications include Aldactone 25 mg daily, metoprolol tartrate 50 mg the morning and 25 mg in the afternoon, hydralazine 50 mg 3 times a day, Imdur 30 mg daily, Lasix 40 mg twice a day, Lipitor 80 mg daily, and aspirin 81 mg daily Most recent echocardiogram obtained in March 2020 revealed ejection fraction greater than 55%, mild mitral regurgitation, mild tricuspid regurgitation Cardiac catheterization history: 2015 revealing patent stents in the proximal and mid RCA. Intermediate disease in the left circumflex. Mild disease in the LAD. FFR of the left circumflex was performed and found to be nonischemic. Patient had a nuclear stress test performed in the office on 05/18/2020 which revealed abnormal myocardial perfusion imaging with evidence of reversible defect of small size and mild intensity involving the apex of the left ventricle. Patient followed up on an outpatient basis with Dr. Harrison patient chose to undergo medical management instead of coronary angiogram. 09/02/2020 Patient examined this morning at the bedside. Patient denies chest pain or pressure. He continues to report mild shortness of breath with a nonproductive cough. He continues to have lower extremity edema. Patient remains on IV Lasix. Creatinine today is 1.55, up from 1.4 yesterday. Fluid balance over the last 24 hours is -1300cc. 09/03/2020 Patient examined this morning at the bedside. Patient denies chest pain or pressure. Patient continues to report shortness of breath with exertion and a nonproductive cough. He continues to have lower extremity edema, although slightly improved from yesterday. He remains on IV Lasix. BMP from this morning is pending. Patient lost IV access and nursing has had difficulty placing new IV. Patient to receive midline IV. PHYSICAL EXAM: VITAL SIGNS: Reviewed. GENERAL: Well-developed in no acute distress. HEENT: Head is normocephalic. Pupils are equal, round. Sclerae anicteric. Mucous membranes of the mouth are moist. Neck supple. No JVD or thyromegaly LUNGS: Respirations even and unlabored. Lung sounds diminished with crackles heard at right lung base. HEART: Regular rate and rhythm. S1 and S2 heard. ABDOMEN: Soft. Nondistended. Nontender. EXTREMITIES: Normal range of motion. No clubbing or cyanosis. Peripheral pulses intact. 2+ bilateral lower extremity edema NEUROLOGIC: Awake and alert. Oriented x 3. ASSESSMENT: Acute exacerbation of chronic diastolic heart failure, ejection fraction 55%, despite normal BNP, patient clinically volume overloaded Coronary artery disease with previous stenting to proximal and mid RCA Chronic kidney disease Hypertension Hyperlipidemia Diabetes mellitus Obesity: BMI 35.9 Leukocytosis, on daily oral prednisone outpatient PLAN: Continue IV lasix Monitor kidney function Daily weights Accurate I&O Further recommendations pending patient's course Nurse practitioner note has been reviewed by physician. Signing provider agrees with the documented findings, assessment, and plan of care. Objective - Vital Signs Vital signs: Vital Signs Temp 97.8 F 09/03/20 04:22 Pulse 60 09/03/20 04:22 Resp 16 09/03/20 04:22 BP 130/63 09/03/20 04:22 Pulse Ox 96 09/03/20 04:22 Intake & Output 09/02/20 09/03/20 09/03/20 18:59 06:59 18:59 Intake Total 1560 476 480 Output Total 1275 1000 Balance 285 524 480 Weight 102.1 kg 101.9 kg Intake: Oral 1560 476 480 Output: Urine 1275 1000 Other: Voiding Method Urinal Urinal - Labs CBC & Chem 7: 09/02/20 07:37 09/02/20 07:37 Labs: Abnormal Lab Results - Last 24 Hours (Table) 09/02/20 09/02/20 09/02/20 Range/Units 11:52 17:22 20:26 POC Glucose (mg/dL) 145 H 246 H 328 H (75-99) mg/dL 09/02/20 09/03/20 09/03/20 Range/Units 22:24 05:57 06:14 POC Glucose (mg/dL) 202 H 62 L 57 L (75-99) mg/dL 09/03/20 Range/Units 06:28 POC Glucose (mg/dL) 74 L (75-99) mg/dL
[2020-09-03] MEDS: SYMBICORT 80-4.5 MCG INHALER INHALATION SCH (09:00)
[2020-09-03] MEDS: IPRATROPIUM-ALBUTEROL 3 ML NEB INHALATION PRN (09:00)
[2020-09-03] MEDS: FOLIC ACID 1 MG TAB PO SCH (09:05)
[2020-09-03] MEDS: allopurinoL 100 MG TAB PO SCH (09:05)
[2020-09-03] MEDS ORDERED: IPRATROPIUM-ALBUTEROL 3 ML NEB INHALATION PRN (09:05)
[2020-09-03] MEDS: predniSONE 20 MG TAB PO SCH (09:05)
[2020-09-03] MEDS: CYANOCOBALAMIN 500 MCG TAB PO SCH (09:05)
[2020-09-03] MEDS: ASPIRIN 81 MG PO SCH (09:05)
[2020-09-03] MEDS: HEPARIN SODIUM,PORCINE/PF 5,000 UNIT/0.5 ML SYRINGE SQ SCH ×2 (09:05→18:31)
[2020-09-03] MEDS: COLCHICINE 0.6 MG EACH PO SCH ×2 (09:05→21:49)
[2020-09-03] MEDS: hydrALAZINE HCL 50 MG TAB PO SCH ×2 (09:06→18:30)
[2020-09-03] MEDS: QUEtiapine 25 MG TAB PO SCH ×2 (09:06→21:52)
[2020-09-03] MEDS: ISOSORBIDE MONONITRATE ER 30 MG TAB.ER.24H PO SCH (09:06)
[2020-09-03] MEDS: METOPROLOL TARTRATE 50 MG TAB PO SCH (09:06)
[2020-09-03] MEDS: SPIRONOLACTONE 25 MG TAB PO SCH (09:06)
[2020-09-03] MEDS: FUROSEMIDE 10 MG/ML 10 ML VIAL IV SCH ×2 (09:06→22:34)
[2020-09-03] MEDS: PYRIDOXINE 50 MG TAB PO SCH (09:06)
[2020-09-03] MEDS: TAMSULOSIN 0.4 MG CAP.ER.24H PO SCH (09:06)
[2020-09-03 09:17] LABS: Potassium 3.7 mmol/L (3.5-5.1)
[2020-09-03 09:18] LABS: Calcium 8.7 mg/dL (8.4-10.2)
--- NOTE | 2020-09-03 10:19 | P.NPCON ---
History of Present Illness - Reason for Consult chronic renal failure - History of Present Illness Reason for consultation: Chronic kidney disease History of present illness: Patient is a 70-year-old male seen in renal consultation for chronic kidney disease. Patient has chronic kidney disease stage III with baseline creatinine in the range of 1.2-1.5 secondary to diabetic kidney disease and cardiorenal syndrome. Patient presented to the hospital with worsening edema and shortness of breath. He also had a cough prior to admission. 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 He is currently maintained on IV Lasix. Edema is improving. Good urine output. No hematuria or dysuria. Weight trending down. Denies use of nonsteroidals. Renal function has been stable with creatinine 1.5 today. Blood pressure stable. He does have long- standing history of diabetes mellitus. Blood sugars fairly stable. No fever or chills. No vomiting or diarrhea. Vital signs are stable. General: The patient appeared well nourished and normally developed. HEENT: Head exam is unremarkable. Neck is without jugular venous distension. LUNGS: Breath sounds decreased. HEART: Rate and Rhythm are regular. ABDOMEN: Soft, no distention. EXTREMITITES: 1+ edema. Past Medical History Past Medical History: Coronary Artery Disease (CAD), Chest Pain / Angina, Heart Failure, COPD, CVA/TIA, Deep Vein Thrombosis (DVT), GERD/Reflux, Hyperlipidemia, Hypertension, Osteoarthritis (OA), Pneumonia, Prostate Disorder, Renal Disease, Respiratory Disorder, Sleep Apnea/CPAP/BIPAP Additional Past Medical History / Comment(s): IDDM type II, neuropathy bilateral hands/feet, hx severe sepsis secondary to discitis/osteomylitis, urinary retention with granados during sepsis, Hx DVT R arm/sepsis d/t cellulitis in legs, venous insufficiency, swelling in legs and feet., spondylolsis, cervical, low back and bilateral knee pain, DDD, gout, chronic respiratory failure, CALLI with occasional Cpap/O2 at 4L/NC-pt states he does not tolerate well, Oxygen @ 4L prn during the day if ill, nonsustained vtach, TIAs, small vessel disease, IDDM type II, neuropathy, BPH, diverticular disease, colon polyps, sinus problems, seasonal allergies, Mixed Connective Tissue Disease causes hallucinations/confusion with sepsis/fever. History of Any Multi-Drug Resistant Organisms: None Reported Past Surgical History: Back Surgery, Heart Catheterization With Stent, Joint Replacement, Orthopedic Surgery Additional Past Surgical History / Comment(s): Bilateral knee arthroscopies, total L knee arthroplasty, R total shoulder arthroplasty, L hand injury with repair, low back surgery, PCI with 3 stents, colonoscopies/polypectomies, cervical/lumbar epidural injections, bilateral cataract removals/lens implants. Past Anesthesia/Blood Transfusion Reactions: No Reported Reaction Additional Past Anesthesia/Blood Transfusion Reaction / Comment(s): STATES "HAD A HARD TIME WITH BREATHING POST OP" Date of Last Stent Placement:: 2009 Past Psychological History: No Psychological Hx Reported Smoking Status: Former smoker - Past Family History Father Family Medical History: CVA/TIA, Hyperlipidemia, Hypertension Additional Family Medical History / Comment(s): Father of a CVA at the age of 55 yrs. Mother Family Medical History: No Reported History Additional Family Medical History / Comment(s): Mother lived to be 93 yrs old. Medications and Allergies Home Medications Medication Instructions Recorded Confirmed Type Atorvastatin [Lipitor] 80 mg PO HS 05/08/15 09/01/20 History Fluticasone/Vilanterol [Breo 1 puff INHALATION RT-HS 03/12/18 09/01/20 History Ellipta 100-25 Mcg Inhaler] Pramipexole Di-HCl [Mirapex] 1 mg PO HS 09/02/19 09/01/20 History Omeprazole 20 mg PO AC-BRKFST 11/23/19 09/01/20 History Tamsulosin [Flomax] 0.4 mg PO DAILY 11/23/19 09/01/20 History Aspirin EC [Ecotrin Low Dose] 81 mg PO DAILY 12/09/19 09/01/20 History Colchicine 0.6 mg PO BID 03/23/20 09/01/20 History Magnesium 250 mg PO DAILY 03/23/20 09/01/20 History hydrALAZINE HCL 50 mg PO Q8HR 03/23/20 09/01/20 History Metoprolol Tartrate [Lopressor] 25 mg PO HS 30 Days #30 tab 03/30/20 09/01/20 Rx Metoprolol Tartrate [Lopressor] 50 mg PO DAILY 30 Days #30 tab 03/30/20 09/01/20 Rx QUEtiapine [SEROquel] 25 mg PO BID 30 Days #60 tab 03/30/20 09/01/20 Rx Folic Acid 1 mg PO DAILY 04/19/20 09/01/20 History Spironolactone 25 mg PO DAILY 04/19/20 09/01/20 History Isosorbide Mononitrate [Isosorbide 30 mg PO DAILY 06/15/20 09/01/20 History Mononitrate ER] Melatonin 3 mg PO HS PRN 06/15/20 09/01/20 History Nitroglycerin Sl Tabs [Nitrostat] 0.4 mg SUBLINGUAL Q5M PRN 06/15/20 09/01/20 History oxyCODONE-APAP 10-325MG [Percocet 2 tab PO Q4H PRN 06/15/20 09/01/20 History 10-325 mg] Albuterol Nebulized [Ventolin 2.5 mg INHALATION RT-QID PRN 08/21/20 09/01/20 History Nebulized] Cyclobenzaprine HCl 10 mg PO BID 08/21/20 09/01/20 History Ergocalciferol [Vitamin D2 (1250 1,250 mcg PO Q14D 08/21/20 09/01/20 History Mcg = 41097 Iu)] Febuxostat [Uloric] 40 mg PO DAILY 08/21/20 09/01/20 History Furosemide [Lasix] 40 mg PO BID 08/21/20 09/01/20 History Furosemide [Lasix] 40 mg PO DAILY PRN 08/21/20 09/01/20 History Ipratropium-Albuterol Nebulize 3 ml INHALATION RT-QID PRN 08/21/20 09/01/20 History [Duoneb 0.5 mg-3 mg/3 ml Soln] calcitrioL [Rocaltrol] 0.25 mcg PO TU 08/21/20 09/01/20 History predniSONE [Deltasone] 20 mg PO DAILY 08/21/20 09/01/20 History Cyanocobalamin [Vitamin B-12] 1,000 mcg PO DAILY #60 tablet 08/24/20 09/01/20 Rx Insulin Glargine [Lantus] 30 unit SQ HS #0 08/24/20 09/01/20 Rx Pyridoxine [Vitamin B-6] 50 mg PO DAILY #30 tab 08/24/20 09/01/20 Rx Calcium Carb-Vit D 500Mg-5Mcg 1 tab PO TID-W/MEALS 09/01/20 09/01/20 History [Oscal 500+D 5 Mcg (200 Iu)] Allergies Allergy/AdvReac Type Severity Reaction Status Date / Time acetaminophen [From Tylenol] AdvReac kidney/liver Verified 09/01/20 11:48 issues Physical Exam Vitals: Vital Signs Temp Pulse Pulse Resp BP Pulse Ox 09/03/20 09:17 64 09/03/20 09:02 62 09/03/20 04:22 97.8 F 60 16 130/63 96 09/03/20 02:00 20 09/02/20 23:55 98.0 F 90 20 140/79 97 09/02/20 20:15 97.9 F 87 16 144/77 95 09/02/20 20:02 70 09/02/20 19:49 70 09/02/20 17:37 84 20 131/73 91 L 09/02/20 16:23 68 09/02/20 16:10 68 09/02/20 12:31 98.0 F 63 18 130/64 94 L 09/02/20 11:19 60 09/02/20 11:08 56 L Intake and Output 09/02/20 09/03/20 09/03/20 22:59 06:59 14:59 Intake Total 360 476 480 Output Total 825 1000 Balance -465 -524 480 Intake: Oral 360 476 480 Output: Urine 825 1000 Other: Voiding Method Urinal Urinal Weight 101.9 kg Results - Lab Results Most recent lab results Calcium 8.7 mg/dL (8.4-10.2) 09/03/20 08:09 09/02/20 07:37 09/03/20 08:09 Assessment and Plan Plan: Assessment: 1. Chronic kidney disease stage III a with baseline creatinine in the range of 1.2-1.5 secondary to diabetic kidney disease and cardiorenal syndrome. GFR at baseline. 2. Acute on chronic diastolic CHF. 3. Volume overload. 4. Diabetes mellitus. 5. Chronic kidney disease mineral bone disease maintained on calcitriol. 6. Hypertension with chronic kidney disease. Stable. Plan: Maintain IV Lasix. Low-salt diet and 1500 mL fluid restriction. Avoid nephrotoxins. Continue to monitor renal function and urine output. Thank you for the consultation. I will continue to follow the patient with you during his hospital stay.
--- NOTE | 2020-09-03 11:09 | P.PN ---
Subjective Patient is admitted for HEART failure chronic diastolic dysfunction with acute exacerbation. Patient is definitely volume overloaded. Patient has significant edema. Patient doesn't have much of urine output I'll increase the dose of Lasix will also consult nephrology may end up needing IV Lasix drip. Patient says he doesn't have any significant improvement in his respiratory status of volume status. His BNP is only in 300s. Patient's creatinine is around 1.55 history is a slightly worse compared to admission. Patient baseline appears to be around 1.2, chest x-ray all is consistent with CHF. 09/03/2020 patient's lower extremity edema is bit better and the patient has better urine output. Nephrology will evaluate the patient. Creatinine remained stable. Patient is being maintained on IV Lasix at 60 mg twice a day Constitutional: Denied any fatigue denied any fever. Cardio vascular: denied any chest pain, palpitations Gastrointestinal denied any nausea vomiting Pulmonary: As mentioned in HPI Neurologic denied any new focal deficits All inpatient medications were reviewed and appropriate changes in these medications as dictated in the interval history and assessment and plan. Objective - Vital Signs Vital signs: Vital Signs Temp 97.8 F 09/03/20 04:22 Pulse 64 09/03/20 09:17 Resp 16 09/03/20 04:22 BP 130/63 09/03/20 04:22 Pulse Ox 96 09/03/20 04:22 Intake & Output 09/02/20 09/03/20 09/03/20 18:59 06:59 18:59 Intake Total 1560 476 480 Output Total 1275 1000 Balance 285 -524 480 Weight 102.1 kg 101.9 kg Intake: Oral 1560 476 480 Output: Urine 1275 1000 Other: Voiding Method Urinal Urinal - Exam PHYSICAL EXAMINATION: GENERAL: The patient is alert and oriented x3, not in any acute distress. Well developed, well nourished. HEENT: Pupils are round and equally reacting to light. EOMI. No scleral icterus. No conjunctival pallor. Normocephalic, atraumatic. No pharyngeal erythema. No thyromegaly. CARDIOVASCULAR: S1 and S2 present. No murmurs, rubs, or gallops. PULMONARY: Chest is clear to auscultation, no wheezing or crackles. ABDOMEN: Soft, nontender, nondistended, normoactive bowel sounds. No palpable organomegaly. MUSCULOSKELETAL: No joint swelling or deformity. EXTREMITIES: No cyanosis, clubbing, patient has 3+ pitting pedal edema with some improvement compared to yesterday NEUROLOGICAL: Gross neurological examination did not reveal any focal deficits. SKIN: No rashes. - Labs CBC & Chem 7: 09/02/20 07:37 09/03/20 08:09 Labs: Abnormal Lab Results - Last 24 Hours (Table) 09/02/20 09/02/20 09/02/20 Range/Units 11:52 17:22 20:26 Sodium (137-145) mmol/L Chloride (98-107) mmol/L Carbon Dioxide (22-30) mmol/L BUN (9-20) mg/dL Creatinine (0.66-1.25) mg/dL Glucose (74-99) mg/dL POC Glucose (mg/dL) 145 H 246 H 328 H (75-99) mg/dL 09/02/20 09/03/20 09/03/20 Range/Units 22:24 05:57 06:14 Sodium (137-145) mmol/L Chloride (98-107) mmol/L Carbon Dioxide (22-30) mmol/L BUN (9-20) mg/dL Creatinine (0.66-1.25) mg/dL Glucose (74-99) mg/dL POC Glucose (mg/dL) 202 H 62 L 57 L (75-99) mg/dL 09/03/20 09/03/20 Range/Units 06:28 08:09 Sodium 136 L (137-145) mmol/L Chloride 97 L (98-107) mmol/L Carbon Dioxide 31 H (22-30) mmol/L BUN 58 H (9-20) mg/dL Creatinine 1.50 H (0.66-1.25) mg/dL Glucose 179 H (74-99) mg/dL POC Glucose (mg/dL) 74 L (75-99) mg/dL Assessment and Plan Plan: Worsening shortness of breath and leg swelling secondary to CHF with mild exacerbation Acute on chronic CHF with diastolic function ejection fraction 55% with probably acute exacerbation patient is definitely one more bloated. Patient is on Lasix to 60 mg IV twice a day may need IV Lasix drip, nephrology evaluated urine output is better today. Creatinine remained stable Acute and chronic kidney disease stage III. Baseline creatinine 1.2 Mild transaminitis Hypertension Diabetes type 2 insulin-dependent, blood sugars are well controlled at this time Diabetic peripheral neuropathy Hyperlipidemia Coronary disease history of stent placement COPD not on home oxygen GERD Obstructive sleep apnea not using CPAP at home History of TIA BPH Mixed connective tissue disease on prednisone 20 mg daily. Chronic low back pain History of recent right eye floaters due to vitreous hemorrhage improved now. History of osteomyelitis/lumbar spine discitis, finished 6 weeks of therapy. History of the venous thrombosis, currently not on anticoagulation DVT prophylaxis with heparin subcu
[2020-09-03 11:52] LABS: Glucose,Whole Blood 347 mg/dL (75-99)
[2020-09-03] MEDS: IPRATROPIUM-ALBUTEROL 3 ML NEB INHALATION SCH ×2 (12:18→15:27)
[2020-09-03 16:58] LABS: Glucose,Whole Blood 251 mg/dL (75-99)
[2020-09-03] MEDS ORDERED: INSULIN DETEMIR (LEVEMIR) 100 UNIT/ML SYR SQ SCH (21:00)
[2020-09-03 21:31] LABS: Glucose,Whole Blood 233 mg/dL (75-99)
[2020-09-03] MEDS: METOPROLOL TARTRATE 25 MG TAB PO SCH (21:49)
[2020-09-03] MEDS: AZITHROMYCIN 500 MG TAB PO SCH (21:49)
[2020-09-03] MEDS: PRAMIPEXOLE 1 MG TAB PO SCH (21:50)
[2020-09-03] MEDS: ATORVASTATIN 80 MG TAB PO SCH (21:51)
[2020-09-04] MEDS: HEPARIN SODIUM,PORCINE/PF 5,000 UNIT/0.5 ML SYRINGE SQ SCH ×2 (00:04→08:34)
[2020-09-04] MEDS: hydrALAZINE HCL 50 MG TAB PO SCH ×2 (00:05→08:34)
[2020-09-04] MEDS: SYMBICORT 80-4.5 MCG INHALER INHALATION SCH ×2 (01:19→08:58)
[2020-09-04] MEDS: IPRATROPIUM-ALBUTEROL 3 ML NEB INHALATION SCH ×3 (01:20→12:52)
[2020-09-04 03:16] VITALS: RESP 18
[2020-09-04 07:19] LABS: Glucose,Whole Blood 75 mg/dL (75-99)
[2020-09-04 07:49] VITALS: BP 133/76; PULSE 68; TEMP 97.8
[2020-09-04] MEDS: ISOSORBIDE MONONITRATE ER 30 MG TAB.ER.24H PO SCH (08:34)
[2020-09-04] MEDS: FUROSEMIDE 10 MG/ML 10 ML VIAL IV SCH (08:34)
[2020-09-04] MEDS: SPIRONOLACTONE 25 MG TAB PO SCH (08:34)
[2020-09-04] MEDS: CALCIUM CARB-VIT D 500 MG-5 MCG TAB PO SCH ×2 (08:34→11:48)
[2020-09-04] MEDS: QUEtiapine 25 MG TAB PO SCH (08:35)
[2020-09-04] MEDS: METOPROLOL TARTRATE 50 MG TAB PO SCH (08:35)
[2020-09-04] MEDS: CYANOCOBALAMIN 500 MCG TAB PO SCH (08:35)
[2020-09-04] MEDS: allopurinoL 100 MG TAB PO SCH (08:35)
[2020-09-04] MEDS: ASPIRIN 81 MG PO SCH (08:35)
[2020-09-04] MEDS: FOLIC ACID 1 MG TAB PO SCH (08:35)
[2020-09-04] MEDS: predniSONE 20 MG TAB PO SCH (08:35)
[2020-09-04] MEDS: TAMSULOSIN 0.4 MG CAP.ER.24H PO SCH (08:35)
[2020-09-04] MEDS: PANTOPRAZOLE 40 MG TABLET PO SCH (08:35)
[2020-09-04] MEDS: oxyCODONE-APAP 10-325MG 1 EACH TAB PO PRN (08:41)
--- NOTE | 2020-09-04 11:35 | P.PN ---
Subjective Progress Note Date: 09/04/20 HISTORY OF PRESENT ILLNESS: This is a 70-year-old male with a past medical history significant for coronary artery disease with previous stent placement, chronic kidney disease, congestive heart failure, hypertension, hyperlipidemia, and diabetes mellitus. Patient follows in the office with Dr. Frazier. We have been asked to see the patient in consultation for congestive heart failure. Patient examined at the bedside. Patient states over the past few days he has become increasingly short of breath. He reports developing a nonproductive cough that has been ongoing for the past 3 days. He also reports increased lower extremity edema. Patient states he has been compliant with his diuretics. He states he has not had any increased salt intake. He reports wearing compression stockings at home and elevating his feet when he is sitting in his chair. He denies chest pain or pressure. Patient states he called the cardiology office this morning and was asking if he could increase his Lasix but was directed to come to the emergency room for further evaluation. EKG reveals sinus mechanism with no signs of acute ischemia Chest xray borderline heart size with interstitial changes. Consider mild CHF with pulmonary vascular congestion versus bronchitis, chronic asthma, or early atypical pneumonia Laboratory data: WBC 14.8. Hemoglobin 12.5. Platelet count 148. Sodium 138. Potassium 4.1. BUN 66. Creatinine 1.49. Lactic acid 1.7. Troponin negative 1. BNP 357. Current home cardiac medications include Aldactone 25 mg daily, metoprolol tartrate 50 mg the morning and 25 mg in the afternoon, hydralazine 50 mg 3 times a day, Imdur 30 mg daily, Lasix 40 mg twice a day, Lipitor 80 mg daily, and aspirin 81 mg daily Most recent echocardiogram obtained in March 2020 revealed ejection fraction greater than 55%, mild mitral regurgitation, mild tricuspid regurgitation Cardiac catheterization history: 2015 revealing patent stents in the proximal and mid RCA. Intermediate disease in the left circumflex. Mild disease in the LAD. FFR of the left circumflex was performed and found to be nonischemic. Patient had a nuclear stress test performed in the office on 05/18/2020 which revealed abnormal myocardial perfusion imaging with evidence of reversible defect of small size and mild intensity involving the apex of the left ventricle. Patient followed up on an outpatient basis with Dr. Harrison patient chose to undergo medical management instead of coronary angiogram. 09/02/2020 Patient examined this morning at the bedside. Patient denies chest pain or pressure. He continues to report mild shortness of breath with a nonproductive cough. He continues to have lower extremity edema. Patient remains on IV Lasix. Creatinine today is 1.55, up from 1.4 yesterday. Fluid balance over the last 24 hours is -1300cc. 09/03/2020 Patient examined this morning at the bedside. Patient denies chest pain or pressure. Patient continues to report shortness of breath with exertion and a nonproductive cough. He continues to have lower extremity edema, although slightly improved from yesterday. He remains on IV Lasix. BMP from this morning is pending. Patient lost IV access and nursing has had difficulty placing new IV. Patient to receive midline IV. 09/04/2020 Patient examined this morning. Patient is ambulating in his room. He denies chest pain or pressure. He states his shortness of breath has resolved. He remains on IV lasix. Patient continues to have lower extremity edema, however it is improved since admission. He is requesting to be discharged home today. PHYSICAL EXAM: VITAL SIGNS: Reviewed. GENERAL: Well-developed in no acute distress. HEENT: Head is normocephalic. Pupils are equal, round. Sclerae anicteric. Mucous membranes of the mouth are moist. Neck supple. No JVD or thyromegaly LUNGS: Respirations even and unlabored. Lung sounds diminished with occasional fine crackles, significantly improved since admission HEART: Regular rate and rhythm. S1 and S2 heard. ABDOMEN: Soft. Nondistended. Nontender. EXTREMITIES: Normal range of motion. No clubbing or cyanosis. Peripheral pulses intact. 2+ bilateral lower extremity edema NEUROLOGIC: Awake and alert. Oriented x 3. ASSESSMENT: Acute exacerbation of chronic diastolic heart failure, ejection fraction 55%, d espite normal BNP, patient clinically volume overloaded Coronary artery disease with previous stenting to proximal and mid RCA Chronic kidney disease Hypertension Hyperlipidemia Diabetes mellitus Obesity: BMI 35.9 Leukocytosis, on daily oral prednisone outpatient PLAN: Discontinue IV lasix Begin oral lasix 60mg BID Monitor kidney function Daily weights Accurate I&O Patient requesting to be discharged home today. Agreeable to discharge from a cardiac standpoint. Patient to follow up outpatient with Dr. Frazier Nurse practitioner note has been reviewed by physician. Signing provider agrees with the documented findings, assessment, and plan of care. Objective - Vital Signs Vital signs: Vital Signs Temp 97.8 F 09/04/20 07:48 Pulse 68 09/04/20 08:42 Resp 18 09/04/20 08:42 BP 133/76 09/04/20 07:48 Pulse Ox 97 09/04/20 07:48 Intake & Output 09/03/20 09/04/20 09/04/20 18:59 06:59 18:59 Intake Total 520 1050 Output Total 1500 1850 Balance -980 -800 Weight 101.7 kg Intake: IV 10 Invasive Line 1 10 Oral 510 1050 Output: Urine 1500 1850 Other: Voiding Method Urinal Urinal Urinal # Voids 1 - Labs CBC & Chem 7: 09/02/20 07:37 09/03/20 08:09 Labs: Abnormal Lab Results - Last 24 Hours (Table) 09/03/20 09/03/20 09/03/20 Range/Units 11:49 16:53 21:27 POC Glucose (mg/dL) 347 H 251 H 233 H (75-99) mg/dL
[2020-09-04 11:47] LABS: Glucose,Whole Blood 107 mg/dL (75-99)
[2020-09-04] MEDS: COLCHICINE 0.6 MG EACH PO SCH (11:48)
[2020-09-04] MEDS: PYRIDOXINE 50 MG TAB PO SCH (11:48)
[2020-09-04 11:54] LABS: African American GFR (CKD) 58.2 (60.0-200.0); Anion Gap 11.8 mmol/L (4.00-12.00); BUN/Creat Ratio 33.57 Ratio (12.00-20.00); Calcium 9.4 mg/dL (8.7-10.3); Carbon Dioxide 30.2 mmol/L (21.6-31.8); Non-African American GFR(CKD) 50.2 (60.0-200.0); Potassium 4.3 mmol/L (3.5-5.5)
--- NOTE | 2020-09-04 16:28 | PN ---
PROGRESS NOTE Patient is seen for followup for chronic kidney disease. He was admitted to the hospital with shortness of breath and hypovolemia. He has been diuresed and overall feeling better. Renal function is fairly stable. PHYSICAL EXAMINATION: Today blood pressure was 133/76, heart rate 68 per minute, he is afebrile. Examination of the heart S1, S2. Examination of the lungs, decreased breath sounds at bases. Abdomen is soft, nontender. Examination of lower extremities shows edema 1+ bilaterally. Chronic skin changes noted. [employer] exam grossly intact. LAB: Show sodium 141, potassium 4.3, BUN 47, serum creatinine 1.4 mg/dL. ASSESSMENT: 1. Chronic kidney disease stage 3A, baseline creatinine 1.2-1.5 secondary to diabetic kidney disease and cardiorenal syndrome. 2. Acute on chronic diastolic congestive heart failure. 3. Chronic kidney disease mineral bone disorder, maintained on calcitriol. 4. Hypertension with chronic kidney disease. 5. Volume overload currently improved. PLAN: Continue to diurese the patient. Increase home diuretics at the time of discharge. Followup as outpatient for CKD. MMODL / IJN: [id number] /
--- NOTE | 2020-09-04 17:16 | P.DS ---
Providers Date of admission: 09/01/20 12:14 Attending physician: Jen Collado Consults: 09/01/20 12:13 Consult Physician Routine Consulting Provider: Gaurang Frazier Consult Reason/Comments: dyspnea Do you want consulting provider notified?: Yes 09/02/20 11:43 Consult Physician Routine Consulting Provider: Jon Cota Consult Reason/Comments: CHF and renal failure Do you want consulting provider notified?: Yes 09/04/20 08:32 Consult Physician Routine Consulting Provider: Kasandra Galicia Consult Reason/Comments: left eye vision changes. Do you want consulting provider notified?: Yes [facility]: Patient is admitted for HEART failure chronic diastolic dysfunction with acute exacerbation. Patient is definitely volume overloaded. Patient has significant edema. Patient doesn't have much of urine output I'll increase the dose of Lasix will also consult nephrology may end up needing IV Lasix drip. Patient says he doesn't have any significant improvement in his respiratory status of volume status. His BNP is only in 300s. Patient's creatinine is around 1.55 history is a slightly worse compared to admission. Patient baseline appears to be around 1.2, chest x-ray all is consistent with CHF. 09/03/2020 patient's lower extremity edema is bit better and the patient has better urine output. Nephrology will evaluate the patient. Creatinine remained stable. Patient is being maintained on IV Lasix at 60 mg twice a day 09/04/2020 Patient the bilateral lower extremity edema significantly improved but still has significant edema and this is apparently is his baseline. Patient was cleared by cardiology and nephrology and patient was switched to 60 mg by mouth twice a day of Lasix patient the serum potassium remained stable in spite of being on IV Lasix. PHYSICAL EXAMINATION: GENERAL: The patient is alert and oriented x3, not in any acute distress. Well developed, well nourished. HEENT: Pupils are round and equally reacting to light. EOMI. No scleral icterus. No conjunctival pallor. Normocephalic, atraumatic. No pharyngeal erythema. No thyromegaly. CARDIOVASCULAR: S1 and S2 present. No murmurs, rubs, or gallops. PULMONARY: Chest is clear to auscultation, no wheezing or crackles. ABDOMEN: Soft, nontender, nondistended, normoactive bowel sounds. No palpable organomegaly. MUSCULOSKELETAL: No joint swelling or deformity. EXTREMITIES: No cyanosis, clubbing, patient has 3+ pitting pedal edema with some improvement compared to yesterday NEUROLOGICAL: Gross neurological examination did not reveal any focal deficits. SKIN: No rashes. Assessment and Plan Plan: Worsening shortness of breath and leg swelling secondary to CHF with mild exacerbation Acute on chronic CHF with diastolic function ejection fraction 55% with probably acute exacerbation of volume more [place] secondary to chronic venous insufficiency Acute and chronic kidney disease stage III. Baseline creatinine 1.2. Patient presents serum creatinine is 1.4 which is actually improved after IV Lasix. Mild transaminitis only minimally elevated AST and ALT no further interventions distress at this time Hypertension Diabetes type 2 insulin-dependent, blood sugars are well controlled at this time Diabetic peripheral neuropathy Hyperlipidemia Coronary disease history of stent placement COPD not on home oxygen GERD Obstructive sleep apnea not using CPAP at home History of TIA BPH Mixed connective tissue disease on prednisone 20 mg daily. Chronic low back pain History of recent right eye floaters due to vitreous hemorrhage improved now. History of osteomyelitis/lumbar spine discitis, finished 6 weeks of therapy. History of the venous thrombosis, currently not on anticoagulation Patient Condition at Discharge: Fair Plan - Discharge Summary Discharge Rx Participant: No New Discharge Prescriptions: New Furosemide [Lasix] 60 mg PO BID #180 tab Continue Atorvastatin [Lipitor] 80 mg PO HS Fluticasone/Vilanterol [Breo Ellipta 100-25 Mcg Inhaler] 1 puff INHALATION RT-HS Pramipexole Di-HCl [Mirapex] 1 mg PO HS Omeprazole 20 mg PO AC-BRKFST Tamsulosin [Flomax] 0.4 mg PO DAILY Aspirin EC [Ecotrin Low Dose] 81 mg PO DAILY Colchicine 0.6 mg PO BID hydrALAZINE HCL 50 mg PO Q8HR Magnesium 250 mg PO DAILY Metoprolol Tartrate [Lopressor] 25 mg PO HS 30 Days #30 tab Metoprolol Tartrate [Lopressor] 50 mg PO DAILY 30 Days #30 tab QUEtiapine [SEROquel] 25 mg PO BID 30 Days #60 tab Spironolactone 25 mg PO DAILY Folic Acid 1 mg PO DAILY Isosorbide Mononitrate [Isosorbide Mononitrate ER] 30 mg PO DAILY Melatonin 3 mg PO HS PRN PRN Reason: Insomnia Nitroglycerin Sl Tabs [Nitrostat] 0.4 mg SUBLINGUAL Q5M PRN PRN Reason: Chest Pain predniSONE [Deltasone] 20 mg PO DAILY Pyridoxine [Vitamin B-6] 50 mg PO DAILY #30 tab Calcium Carb-Vit D 500Mg-5Mcg [Oscal 500+D 5 Mcg (200 Iu)] 1 tab PO TID- W/MEALS oxyCODONE-APAP 10-325MG [Percocet 10-325 mg] 2 tab PO Q4H PRN PRN Reason: Pain Albuterol Nebulized [Ventolin Nebulized] 2.5 mg INHALATION RT-QID PRN PRN Reason: Shortness Of Breath calcitrioL [Rocaltrol] 0.25 mcg PO TU Ergocalciferol [Vitamin D2 (1250 Mcg = 69076 Iu)] 1,250 mcg PO Q14D Ipratropium-Albuterol Nebulize [Duoneb 0.5 mg-3 mg/3 ml Soln] 3 ml INHALATION RT-QID PRN PRN Reason: Shortness Of Breath Cyclobenzaprine HCl 10 mg PO BID Febuxostat [Uloric] 40 mg PO DAILY Cyanocobalamin [Vitamin B-12] 1,000 mcg PO DAILY #60 tablet Insulin Glargine [Lantus] 30 unit SQ HS #0 Discontinued Furosemide [Lasix] 40 mg PO BID Furosemide [Lasix] 40 mg PO DAILY PRN PRN Reason: Edema Discharge Medication List Atorvastatin [Lipitor] 80 mg PO HS 05/08/15 [History] Fluticasone/Vilanterol [Breo Ellipta 100-25 Mcg Inhaler] 1 puff INHALATION RT-HS 03/12/18 [History] Pramipexole Di-HCl [Mirapex] 1 mg PO HS 09/02/19 [History] Omeprazole 20 mg PO AC-BRKFST 11/23/19 [History] Tamsulosin [Flomax] 0.4 mg PO DAILY 11/23/19 [History] Aspirin EC [Ecotrin Low Dose] 81 mg PO DAILY 12/09/19 [History] Colchicine 0.6 mg PO BID 03/23/20 [History] Magnesium 250 mg PO DAILY 03/23/20 [History] hydrALAZINE HCL 50 mg PO Q8HR 03/23/20 [History] Metoprolol Tartrate [Lopressor] 25 mg PO HS 30 Days #30 tab 03/30/20 [Rx] Metoprolol Tartrate [Lopressor] 50 mg PO DAILY 30 Days #30 tab 03/30/20 [Rx] QUEtiapine [SEROquel] 25 mg PO BID 30 Days #60 tab 03/30/20 [Rx] Folic Acid 1 mg PO DAILY 04/19/20 [History] Spironolactone 25 mg PO DAILY 04/19/20 [History] Isosorbide Mononitrate [Isosorbide Mononitrate ER] 30 mg PO DAILY 06/15/20 [History] Melatonin 3 mg PO HS PRN 06/15/20 [History] Nitroglycerin Sl Tabs [Nitrostat] 0.4 mg SUBLINGUAL Q5M PRN 06/15/20 [History] oxyCODONE-APAP 10-325MG [Percocet 10-325 mg] 2 tab PO Q4H PRN 06/15/20 [History] Albuterol Nebulized [Ventolin Nebulized] 2.5 mg INHALATION RT-QID PRN 08/21/20 [History] Cyclobenzaprine HCl 10 mg PO BID 08/21/20 [History] Ergocalciferol [Vitamin D2 (1250 Mcg = 14807 Iu)] 1,250 mcg PO Q14D 08/21/20 [History] Febuxostat [Uloric] 40 mg PO DAILY 08/21/20 [History] Ipratropium-Albuterol Nebulize [Duoneb 0.5 mg-3 mg/3 ml Soln] 3 ml INHALATION RT-QID PRN 08/21/20 [History] calcitrioL [Rocaltrol] 0.25 mcg PO TU 08/21/20 [History] predniSONE [Deltasone] 20 mg PO DAILY 08/21/20 [History] Cyanocobalamin [Vitamin B-12] 1,000 mcg PO DAILY #60 tablet 08/24/20 [Rx] Insulin Glargine [Lantus] 30 unit SQ HS #0 08/24/20 [Rx] Pyridoxine [Vitamin B-6] 50 mg PO DAILY #30 tab 08/24/20 [Rx] Calcium Carb-Vit D 500Mg-5Mcg [Oscal 500+D 5 Mcg (200 Iu)] 1 tab PO TID-W/MEALS 09/01/20 [History] Furosemide [Lasix] 60 mg PO BID #180 tab 09/04/20 [Rx] Follow up Appointment(s)/Referral(s): Gaurang Frazier MD [STAFF PHYSICIAN] - 09/15/20 3:45 pm Rk Keene III, MD [Primary Care Provider] - 09/05/20 3:30 pm (Office will call to confirm appointment) [facility], [NON-STAFF] - 1-2 Days Jon Cota DO [STAFF PHYSICIAN] - 09/19/20 11:45 am Patient Instructions/Handouts: Heart Failure (DC) Discharge Disposition: HOME WITH HOME HEALTH SERVICES
== END 2020-09-04 13:43 | disposition home health service (06) | DRG 291 ==
LOC: EC 10:50 → 3SCARD 12:14 → 4SSUR 09-03 20:25
PROVIDERS: ADMIT Internal Medicine; ATTEND Internal Medicine
DX: I13.0 Hypertensive heart and chronic kidney disease with heart failure and stage 1 through stage 4 chronic kidney disease, or unspecified chronic kidney disease (principal); I50.33 Acute on chronic diastolic (congestive) heart failure; J96.11 Chronic respiratory failure with hypoxia; M35.1 Other overlap syndromes; N17.9 Acute kidney failure, unspecified; D72.829 Elevated white blood cell count, unspecified; Z20.822 Contact with and (suspected) exposure to COVID-19; E11.22 Type 2 diabetes mellitus with diabetic chronic kidney disease; E11.42 Type 2 diabetes mellitus with diabetic polyneuropathy; E66.9 Obesity, unspecified; Z68.35 Body mass index [BMI] 35.0-35.9, adult; E78.5 Hyperlipidemia, unspecified; E86.1 Hypovolemia; G47.33 Obstructive sleep apnea (adult) (pediatric); G89.29 Other chronic pain; M54.5 Low back pain; I25.10 Atherosclerotic heart disease of native coronary artery without angina pectoris; Z86.79 Personal history of other diseases of the circulatory system; I87.2 Venous insufficiency (chronic) (peripheral); J44.9 Chronic obstructive pulmonary disease, unspecified; K21.9 Gastro-esophageal reflux disease without esophagitis; E87.70 Fluid overload, unspecified; M89.9 Disorder of bone, unspecified; N18.31 Chronic kidney disease, stage 3a; I08.1 Rheumatic disorders of both mitral and tricuspid valves; J30.2 Other seasonal allergic rhinitis; K57.90 Diverticulosis of intestine, part unspecified, without perforation or abscess without bleeding; M10.9 Gout, unspecified; N40.0 Benign prostatic hyperplasia without lower urinary tract symptoms; Z79.82 Long term (current) use of aspirin; Z79.899 Other long term (current) drug therapy; Z86.718 Personal history of other venous thrombosis and embolism; Z86.73 Personal history of transient ischemic attack (TIA), and cerebral infarction without residual deficits; Z87.891 Personal history of nicotine dependence; Z91.19 Patient's noncompliance with other medical treatment and regimen; Z95.5 Presence of coronary angioplasty implant and graft; Z96.1 Presence of intraocular lens; Z96.611 Presence of right artificial shoulder joint; Z96.652 Presence of left artificial knee joint; Z98.42 Cataract extraction status, left eye; Z98.41 Cataract extraction status, right eye; Z79.4 Long term (current) use of insulin; Z99.81 Dependence on supplemental oxygen; Z88.6 Allergy status to analgesic agent; Z86.010 Personal history of colon polyps; Z87.01 Personal history of pneumonia (recurrent); Z82.49 Family history of ischemic heart disease and other diseases of the circulatory system; Z87.19 Personal history of other diseases of the digestive system
CPT/HCPCS: 36415; 71046; 80048; 80053; 83605; 83735; 83880; 84484; 84550; 85025; 87635; 93005; 94640; 96374; 99285

== ENCOUNTER 2020-12-05 08:00 | Day surgery (SDC) | payer MEDICARE ==
[2020-12-01 11:25] VITALS: BMI 36.1
[2020-12-05 08:27] VITALS: TEMP 97.7
[2020-12-05] MEDS: LACTATED RINGERS 1,000 ML IV SCH ×2 (08:31→08:42)
[2020-12-05 08:32] LABS: Glucose,Whole Blood 106 mg/dL (75-99)
[2020-12-05] MEDS ORDERED: TRIAMCINOLONE ACETONIDE 40 MG/ML 1 ML VIAL ONE (08:43)
[2020-12-05] MEDS ORDERED: fentaNYL (PF) 50 MCG/ML 2 ML AMP ONE (08:43)
[2020-12-05] MEDS ORDERED: ROPIVACAINE 5MG/ML 20ML VIAL ONE (08:43)
[2020-12-05] MEDS ORDERED: IOPAMIDOL M200 10 ML VIAL ONE (08:43)
[2020-12-05] MEDS ORDERED: MIDAZOLAM 2 MG/2 ML VIAL ONE (08:43)
--- NOTE | 2020-12-05 08:56 | P.PCN ---
Date of Procedure: 12/05/20 Surgeon: Felix Daniel Pathology: none sent Condition: stable Disposition: PACU Description of Procedure: PREOPERATIVE DIAGNOSIS: Lumbar post laminectomy syndrome. POSTOPERATIVE DIAGNOSIS: Lumbar post laminectomy syndrome. PROCEDURE: 1. Caudal epidural steroid injection under fluoroscopic guidance. 2. Caudal epidurogram. ANESTHESIA: Local with 1% lidocaine; IV sedation EBL: Negligible PROCEDURE INDICATION: The patient with neuropathic pain radiating distally returns for caudal epidural steroid injection. PROCEDURE DESCRIPTION: The patient was seen and identified in the preoperative area. Risks, benefits, complications, and alternatives were discussed with the patient. The patient agreed to proceed with the procedure and signed the consent. IV was started, and vital signs were stable. Patient was taken to the OR and time out was completed. The patient was placed in the prone position on procedure table and a pillow was placed under the abdomen to reduce lumbar lordosis. The lumbosacral area was prepped and draped in the usual sterile fashion. Critical pause was taken. Vital signs were closely monitored during the procedure. Using lateral fluoroscopy the anterior-posterior plates of the sacrum were identified and the skin and deeper tissues corresponding into sacrococcygeal ligament were anesthetized using approximately 3 mL of 1% lidocaine. Then under fluoroscopy, a 3-1/2-inch 20-gauge Tuohy epidural needle/22-guage 3-1/2 -inch spinal needle was guided through the sacrococcygeal ligament, and into the epidural space. After negative aspiration, a 1 mL of omnipaque-300 contrast dye was injected with excellent epidurogram. Again after negative aspiration for CSF, blood, and with no paresthesias, Kenalog 40mg,2ml of 0.5% preservative free Ropivacaine with 7ml of preservative free normal saline(total of 10ml)solution was injected with washout of epidurogram. Needle was withdrawn intact. Skin was cleansed, and bandage was applied. COMPLICATIONS: None. DISPOSITION / PLANS: The patient was placed in a supine position and transferred to the recovery area in a stable condition for observation and was discharged from the recovery room after meeting discharge criteria. Home discharge instructions given to the patient by the staff. The patient was reexamined prior to discharge. The patient will schedule a follow up in the clinic in 2-4 weeks.
[2020-12-05] MEDS ORDERED: IV FLUID CONTINUATION 700 ML IV ONE (09:00)
[2020-12-05 09:17] VITALS: RESP 16
[2020-12-05 09:17] LABS: Glucose,Whole Blood 125 mg/dL (75-99)
[2020-12-05 09:32] VITALS: BP 115/58; PULSE 68
--- NOTE | 2020-12-05 15:46 | FL ---
EXAMINATION TYPE: FL guided pain mgmt statistic DATE OF EXAM: 12/05/2020 FLUOROSCOPY Fluoroscopy time of 9 seconds was used during coccygeal lysis. 2 Image/s document/s the procedure.
== END 2020-12-05 09:38 | disposition home or self-care (01) ==
LOC: ORPAIN 08:00
PROVIDERS: ATTEND Anesthesiology
DX: M96.1 Postlaminectomy syndrome, not elsewhere classified (principal)
CPT/HCPCS: 62323; J2250; J3301; J3010; Q9966; J2795; C1894; 99152

== ENCOUNTER → 2021-01-08 | Outpatient (CLI) | payer MEDICARE ==
[2021-01-08 11:13] VITALS: BP 167/67; PULSE 70; RESP 18; TEMP 98.4
--- NOTE | 2021-01-08 11:30 | P.PN ---
Subjective Progress Note Date: 01/08/21 This is a follow-up visit for this patient with a history of severe low back pain, he is Diagnosed with post laminectomy pain syndrome ,and lumbar spondylosis with lumbar facet arthropathy, previously we did diagnostic medial branch block lumbar area patient reported that he had 0 benefit from it, and r ecently with a caudal epidural steroid injection patient reported that he had no benefit from it, he continued to have severe low back pain the pain is constant and increases with any activity the pain interfering with the quality of life, patient continue to use pain medication without any significant improvement, he denies any side effect of the medication he denies any excessive drowsiness or s leepiness, and he reported that the intensity of the pain interferes with the quality of life and activity of daily livings, he complained of neck pain and also but most of his pain is in the low back area Physical Examinations : -Constitutiona : Cooperative , not in acute distress . -HEENT : nech : supple , no Lymphadenopathy , normal thyroid size . : eyes : no ptosis , no icterus, no photophobia . - neurologic : Cranial nerve II to XII intact , no focal neurological deffecit . -psychatric : alert , oriented X 3 , appropriate affect , intact judgment and insight . -Lymphatic : no Lymphadenopathy . - musculoskeltal : Lumber spine moter stegnth lower extremities ,thigh and legs 5/5 Right side , 5/5 Left side deep tendon reflexes : normal Knee Jerk , normal ankle Jerk lumber facet Loading Test =positive Right , positive Left Range of motion of the lumbar spine Flexion 30 degrees, extension 10 degrees strait leg raising test = positive at 30 degree Fabere test= positive Right , and positive LT . Sever tenderness over the Sacroiliac joint on the Right , and Left sides Gaenslen test= positive right ,and positive left . Seated flexion test= positive right ,and positive Left . Distraction test= positive bilaterally Sacroiliac compression test= positive bilaterally Assessment and Plan Plan: Assessment and plan=1-postlaminectomy pain syndrome lumbar area. 2-lumbar spondylosis with lumbar facet arthropathy without myelopathy. 3-bilateral sacroiliitis Patient had no benefit from diagnostic medial branch block lumbar area. Patient had no benefit from caudal epidural steroid injection. She could benefit from a Bilateral sacroiliac joint steroid injections under fluoroscopy guidance - PQRS measures = - Patient's medications are documented in the chart. -Tobacco use is negative . -Patient's has not received pneumococcal vaccine. -Advanced care planning discussed, patient not eligible. -Opiate contract not signed. -Pain positive and follow-up visit/procedure is scheduled. -Patient's blood pressure measured [ 167/67 ] , and documented in the record ,and patient will follow up with the primary care. -Patient's weight was measured and body mass index [ ] above the,eugene l limits and counseling was done. and patient instructed to follow-up with the primary care physician. -Patient was not identified as an unhealthy alcohol user Objective - Vital Signs Vital signs: Vital Signs Temp 98.4 F 01/08/21 11:07 Pulse 70 01/08/21 11:07 Resp 18 01/08/21 11:07 BP 167/67 01/08/21 11:07 Pulse Ox 95 01/08/21 11:07 Intake & Output 01/07/21 01/08/21 01/08/21 18:59 06:59 18:59 Weight 122.47 kg
== END ==
LOC: PNWHC3 11:01
PROVIDERS: ATTEND Specialist
DX: M96.1 Postlaminectomy syndrome, not elsewhere classified (principal); M47.816 Spondylosis without myelopathy or radiculopathy, lumbar region; M46.1 Sacroiliitis, not elsewhere classified; Z87.891 Personal history of nicotine dependence; Z88.6 Allergy status to analgesic agent
CPT/HCPCS: 99211

== ENCOUNTER 2021-02-22 15:23 | Inpatient (IN) | payer MEDICARE ==
[2021-02-22] MEDS ORDERED: ALBUTEROL HFA INHALER INHALATION STA (16:26)
--- NOTE | 2021-02-22 16:30 | ED ---
General Adult HPI - General Chief complaint: Upper Respiratory Infection Stated complaint: Cough, palpitations Time Seen by Provider: 02/22/21 15:44 Source: patient, family, RN notes reviewed Mode of arrival: ambulatory Limitations: no limitations - History of Present Illness Initial comments: Patient is a pleasant 71-year-old male presenting to the emergency department with concern for cough, cold symptoms and palpitations. Onset of symptoms was around 1 week ago. Patient does not feel short of breath. Patient does have mild cough with chest congestion. Patient feels chilled and somewhat achy. No loss of taste or smell. No nausea vomiting or diarrhea. No loss of appetite. Patient denies chest pain. Patient does feel like his heart is racing. Patient has some leg swelling however this is chronic and unchanged. - Related Data Home Medications Medication Instructions Recorded Confirmed Omeprazole 20 mg PO DAILY@0700 11/23/19 02/22/21 Tamsulosin [Flomax] 0.4 mg PO DAILY@0700 11/23/19 02/22/21 Aspirin EC [Ecotrin Low Dose] 81 mg PO DAILY@0700 12/09/19 02/22/21 Colchicine 0.6 mg PO DAILY@0700 03/23/20 02/22/21 Magnesium 250 mg PO DAILY@0700 03/23/20 02/22/21 hydrALAZINE HCL 50 mg PO BID@1200,1930 03/23/20 02/22/21 Spironolactone 25 mg PO DAILY@0700 04/19/20 02/22/21 Isosorbide Mononitrate [Isosorbide 30 mg PO DAILY@0700 06/15/20 02/22/21 Mononitrate ER] Nitroglycerin Sl Tabs [Nitrostat] 0.4 mg SUBLINGUAL Q5M PRN 06/15/20 02/22/21 oxyCODONE-APAP 10-325MG [Percocet 1 tab PO Q6HR PRN 06/15/20 02/22/21 10-325 mg] Ergocalciferol [Vitamin D2 (1250 1,250 mcg PO Q14D 08/21/20 02/22/21 Mcg = 21026 Iu)] Ipratropium-Albuterol Nebulize 3 ml INHALATION RT-QID 08/21/20 02/22/21 [Duoneb 0.5 mg-3 mg/3 ml Soln] predniSONE [Deltasone] 20 mg PO DAILY@0700 08/21/20 02/22/21 Insulin Glargine [Lantus Vial] 40 unit SQ HS@1929 PRN 12/01/20 02/22/21 Fluticasone/Vilanterol [Breo 1 puff IN RT-HS@192901/08/21 02/22/21 Ellipta 100-25 Mcg Inhaler] Albuterol Inhaler [Ventolin Hfa 2 puff INHALATION RT-QID PRN 02/22/21 02/22/21 Inhaler] Cyclobenzaprine [Flexeril] 10 mg PO TID@0700,1200,192902/22/21 02/22/21 Febuxostat [Uloric] 40 mg PO DAILY@0700 02/22/21 02/22/21 Furosemide [Lasix] 40 mg PO BID@0700,192902/22/21 02/22/21 Ketorolac 0.5% Ophth Soln [Acular 1 drops LEFT EYE QID 02/22/21 02/22/21 0.5%] Metoprolol Tartrate [Lopressor] 25 mg PO HS@1930 02/22/21 02/22/21 Metoprolol Tartrate [Lopressor] 50 mg PO DAILY@0700 02/22/21 02/22/21 Pramipexole [Mirapex] 1 mg PO HS@1930 02/22/21 02/22/21 QUEtiapine [SEROquel] 25 mg PO BID@0700,192902/22/21 02/22/21 calcitrioL [Rocaltrol] 0.25 mcg PO Q14D 02/22/21 02/22/21 hydrALAZINE HCL [Apresoline] 100 mg PO DAILY@0700 02/22/21 02/22/21 Allergies Allergy/AdvReac Type Severity Reaction Status Date / Time acetaminophen [From Tylenol] AdvReac kidney/liver Verified 02/22/21 17:13 issues Review of Systems ROS Statement: Those systems with pertinent positive or pertinent negative responses have been documented in the HPI. ROS Other: All systems not noted in ROS Statement are negative. Constitutional: Reports: as per HPI. Denies: fever (Temperature at home was 98) Eyes: Denies: eye pain ENT: Denies: ear pain Respiratory: Reports: as per HPI, cough Cardiovascular: Reports: palpitations. Denies: chest pain Endocrine: Denies: fatigue Gastrointestinal: Denies: abdominal pain, nausea, vomiting, diarrhea Genitourinary: Denies: dysuria Musculoskeletal: Denies: back pain Skin: Denies: rash Neurological: Denies: weakness Past Medical History Past Medical History: Coronary Artery Disease (CAD), Chest Pain / Angina, Heart Failure, COPD, CVA/TIA, Diabetes Mellitus, Deep Vein Thrombosis (DVT), GERD/Reflux, Hyperlipidemia, Hypertension, Osteoarthritis (OA), Pneumonia, Prostate Disorder, Renal Disease, Respiratory Disorder, Sleep Apnea/CPAP/BIPAP Additional Past Medical History / Comment(s): IDDM type II, neuropathy hands/fee t, hx severe sepsis secondary to discitis/osteomylitis, urinary retention with granados during sepsis, Hx DVT R arm/sepsis d/t cellulitis in legs, venous insufficiency, swelling in legs and feet., spondylolsis, cervical, low back and bilateral knee pain, DDD, gout, chronic respiratory failure, CALLI (does not use machine)., nonsustained vtach, TIAs, small vessel disease, BPH, diverticular disease, colon polyps, sinus problems, seasonal allergies, Mixed Connective Tissue Disease .,hallucinations/confusion with sepsis/fever., Pt was hospitalized at [facility] in August for dyspnea, chf & renal failure. History of Any Multi-Drug Resistant Organisms: None Reported Past Surgical History: Back Surgery, Heart Catheterization With Stent, Joint Replacement, Orthopedic Surgery Additional Past Surgical History / Comment(s): Bilateral knee arthroscopies, total L knee arthroplasty, R total shoulder arthroplasty, L hand injury with repair, low back surgery, PCI with 3 stents, colonoscopies/polypectomies, cervical/lumbar epidural injections, cataract removals/lens implants. Past Anesthesia/Blood Transfusion Reactions: No Reported Reaction Additional Past Anesthesia/Blood Transfusion Reaction / Comment(s): STATES "HAD A HARD TIME WITH BREATHING POST OP" Date of Last Stent Placement:: 2009 Past Psychological History: No Psychological Hx Reported Smoking Status: Former smoker - Past Family History Father Family Medical History: CVA/TIA, Hyperlipidemia, Hypertension Additional Family Medical History / Comment(s): Father of a CVA at the age of 55 yrs. Mother Family Medical History: No Reported History Additional Family Medical History / Comment(s): Mother lived to be 93 yrs old. General Exam Limitations: no limitations General appearance: alert, in no apparent distress Head exam: Present: normocephalic Eye exam: Present: normal appearance ENT exam: Present: normal oropharynx Neck exam: Present: normal inspection Respiratory exam: Present: other (mild expiratory wheeze) Cardiovascular Exam: Present: tachycardia, normal heart sounds GI/Abdominal exam: Present: soft. Absent: tenderness Extremities exam: Present: pedal edema (Legs are wrapped. Pedal edema present). Absent: calf tenderness Neurological exam: Present: alert Psychiatric exam: Present: normal affect, normal mood Skin exam: Present: normal color Course Vital Signs 02/22/21 02/22/21 15:29 18:01 Temperature 98.3 F Pulse Rate 114 H 94 Respiratory 22 18 Rate Blood Pressure 148/67 117/64 O2 Sat by Pulse 93 L 96 Oximetry - Reevaluation(s) Reevaluation #1: 02/22/21 20:30 Patient does have concern for sepsis criteria diagnosed at 2030. Lactic acid have been ordered. Blood culture and IV antibiotics will be ordered. EKG Findings - EKG Comments: EKG Findings:: Sinus tachycardia rate 1:15. Premature atrial complexes. FL 150. QRS 90. QT 340. QTc 481. Normal axis. Septal Q waves. Nonspecific ST- T. Medical Decision Making - Medical Decision Making Patient reevaluated. Patient and family updated on results and plan. Case was discussed with practitioner Alis, who will admit covered for Dr. Huertas, who ad mits for Dr. Keene. - Lab Data Result diagrams: 02/22/21 16:40 02/22/21 16:40 Lab Results 02/22/21 02/22/21 02/22/21 Range/Units 16:40 16:40 16:40 WBC 12.0 H (3.8-10.6) k/uL RBC 4.24 L (4.30-5.90) m/uL Hgb 13.8 (13.0-17.5) gm/dL Hct 41.5 (39.0-53.0) % MCV 97.9 (80.0-100.0) fL MCH 32.5 (25.0-35.0) pg MCHC 33.2 (31.0-37.0) g/dL RDW 15.8 H (11.5-15.5) % Plt Count 182 (150-450) k/uL MPV 9.2 Neutrophils % 80 % Lymphocytes % 13 % Monocytes % 4 % Eosinophils % 1 % Basophils % 0 % Neutrophils # 9.6 H (1.3-7.7) k/uL Lymphocytes # 1.6 (1.0-4.8) k/uL Monocytes # 0.5 (0-1.0) k/uL Eosinophils # 0.1 (0-0.7) k/uL Basophils # 0.1 (0-0.2) k/uL PT 9.9 (9.0-12.0) sec INR 0.9 (<1.2) APTT 19.4 L (22.0-30.0) sec D-Dimer 0.83 H (<0.60) mg/L FEU Sodium 134 L (137-145) mmol/L Potassium 3.4 L (3.5-5.1) mmol/L Chloride 100 (98-107) mmol/L Carbon Dioxide 27 (22-30) mmol/L Anion Gap 7 mmol/L BUN 55 H (9-20) mg/dL Creatinine 1.46 H (0.66-1.25) mg/dL Est GFR (CKD-EPI)AfAm 55 (>60 ml/min/1.73 sqM) Est GFR (CKD-EPI)NonAf 47 (>60 ml/min/1.73 sqM) Glucose 173 H (74-99) mg/dL Plasma Lactic Acid Teo (0.7-2.0) mmol/L Calcium 8.5 (8.4-10.2) mg/dL Magnesium 1.7 (1.6-2.3) mg/dL Total Bilirubin 0.5 (0.2-1.3) mg/dL AST 89 H (17-59) U/L ALT 126 H (4-49) U/L Alkaline Phosphatase 131 H (38-126) U/L Troponin I (0.000-0.034) ng/mL NT-Pro-B Natriuret Pep pg/mL Total Protein 5.8 L (6.3-8.2) g/dL Albumin 3.3 L (3.5-5.0) g/dL Coronavirus (PCR) (Not Detectd) 02/22/21 02/22/21 02/22/21 Range/Units 16:40 16:40 16:40 WBC (3.8-10.6) k/uL RBC (4.30-5.90) m/uL Hgb (13.0-17.5) gm/dL Hct (39.0-53.0) % MCV (80.0-100.0) fL MCH (25.0-35.0) pg MCHC (31.0-37.0) g/dL RDW (11.5-15.5) % Plt Count (150-450) k/uL MPV Neutrophils % % Lymphocytes % % Monocytes % % Eosinophils % % Basophils % % Neutrophils # (1.3-7.7) k/uL Lymphocytes # (1.0-4.8) k/uL Monocytes # (0-1.0) k/uL Eosinophils # (0-0.7) k/uL Basophils # (0-0.2) k/uL PT (9.0-12.0) sec INR (<1.2) APTT (22.0-30.0) sec D-Dimer (<0.60) mg/L FEU Sodium (137-145) mmol/L Potassium (3.5-5.1) mmol/L Chloride (98-107) mmol/L Carbon Dioxide (22-30) mmol/L Anion Gap mmol/L BUN (9-20) mg/dL Creatinine (0.66-1.25) mg/dL Est GFR (CKD-EPI)AfAm (>60 ml/min/1.73 sqM) Est GFR (CKD-EPI)NonAf (>60 ml/min/1.73 sqM) Glucose (74-99) mg/dL Plasma Lactic Acid Teo 1.3 (0.7-2.0) mmol/L Calcium (8.4-10.2) mg/dL Magnesium (1.6-2.3) mg/dL Total Bilirubin (0.2-1.3) mg/dL AST (17-59) U/L ALT (4-49) U/L Alkaline Phosphatase (38-126) U/L Troponin I <0.012 (0.000-0.034) ng/mL NT-Pro-B Natriuret Pep 413 pg/mL Total Protein (6.3-8.2) g/dL Albumin (3.5-5.0) g/dL Coronavirus (PCR) (Not Detectd) 02/22/21 Range/Units 16:40 WBC (3.8-10.6) k/uL RBC (4.30-5.90) m/uL Hgb (13.0-17.5) gm/dL Hct (39.0-53.0) % MCV (80.0-100.0) fL MCH (25.0-35.0) pg MCHC (31.0-37.0) g/dL RDW (11.5-15.5) % Plt Count (150-450) k/uL MPV Neutrophils % % Lymphocytes % % Monocytes % % Eosinophils % % Basophils % % Neutrophils # (1.3-7.7) k/uL Lymphocytes # (1.0-4.8) k/uL Monocytes # (0-1.0) k/uL Eosinophils # (0-0.7) k/uL Basophils # (0-0.2) k/uL PT (9.0-12.0) sec INR (<1.2) APTT (22.0-30.0) sec D-Dimer (<0.60) mg/L FEU Sodium (137-145) mmol/L Potassium (3.5-5.1) mmol/L Chloride (98-107) mmol/L Carbon Dioxide (22-30) mmol/L Anion Gap mmol/L BUN (9-20) mg/dL Creatinine (0.66-1.25) mg/dL Est GFR (CKD-EPI)AfAm (>60 ml/min/1.73 sqM) Est GFR (CKD-EPI)NonAf (>60 ml/min/1.73 sqM) Glucose (74-99) mg/dL Plasma Lactic Acid Teo (0.7-2.0) mmol/L Calcium (8.4-10.2) mg/dL Magnesium (1.6-2.3) mg/dL Total Bilirubin (0.2-1.3) mg/dL AST (17-59) U/L ALT (4-49) U/L Alkaline Phosphatase (38-126) U/L Troponin I (0.000-0.034) ng/mL NT-Pro-B Natriuret Pep pg/mL Total Protein (6.3-8.2) g/dL Albumin (3.5-5.0) g/dL Coronavirus (PCR) Not Detected (Not Detectd) - Radiology Data Radiology results: report reviewed (CT chest negative for pulmonary embolism), image reviewed (Left mid and lower reticular pattern with increased density. Possible asymmetric pulmonary edema or atypical pneumonia.) Critical Care Time Critical Care Time: Yes Total Critical Care Time: 31 Disposition Clinical Impression: Sepsis, Pneumonia Disposition: ADMITTED IP TO THIS HOSP Is patient prescribed a controlled substance at d/c from ED?: No Referrals: Rk Keene III, MD [Primary Care Provider] - 1-2 days Decision Time: 20:31
[2021-02-22 16:55] LABS: Basophils # (A) 0.1 k/uL (0-0.2); Basophils % (A) 0 %; Eosinophils # (A) 0.1 k/uL (0-0.7); Eosinophils % (A) 1 %; HCT 41.5 % (39.0-53.0); HGB 13.8 gm/dL (13.0-17.5); Lymphocytes # (A) 1.6 k/uL (1.0-4.8); Lymphocytes % (A) 13 %; MCH 32.5 pg (25.0-35.0); MCHC 33.2 g/dL (31.0-37.0); MCV 97.9 fL (80.0-100.0); Mean Platelet Volume 9.2; Monocytes # (A) 0.5 k/uL (0-1.0); Monocytes % (A) 4 %; Neutrophils # (A) 9.6 k/uL (1.3-7.7); Neutrophils % (A) 80 %; Platelet Count 182 k/uL (150-450); RBC 4.24 m/uL (4.30-5.90); RDW 15.8 % (11.5-15.5)
[2021-02-22 17:03] LABS: Albumin 3.3 g/dL (3.5-5.0); Calcium 8.5 mg/dL (8.4-10.2); Magnesium 1.7 mg/dL (1.6-2.3); Potassium 3.4 mmol/L (3.5-5.1); Total Bilirubin 0.5 mg/dL (0.2-1.3); Total Protein 5.8 g/dL (6.3-8.2)
--- NOTE | 2021-02-22 17:10 | XR ---
EXAMINATION: XR chest 2V DATE AND TIME: 02/22/2021 4:49 PM CLINICAL INDICATION: difficulty breathing TECHNIQUE: Frontal and lateral views COMPARISON: 09/01/2020 chest radiographs FINDINGS: The lungs demonstrate mild silhouetting of the pulmonary vasculature bilaterally, greater on the left , by a reticular pattern of increased density but with partial consolidation of the left mid and lowe r lung zone. While the radiographic pattern could conceivably represent findings which could correspo nd with a clinical diagnosis of asymmetric mild pulmonary edema, the radiographic differential diagno sis also includes atypical pneumonia. The pleural spaces are negative. The cardiac silhouette is not enlarged. The remainder of the mediastinal silhouette is unremarkable. The skeletal structures and soft tissues are negative for acute findings. IMPRESSION: ACUTE MILD PULMONARY FINDINGS.
[2021-02-22 17:23] LABS: INR 0.9 (<1.2); Prothrombin Time 9.9 sec (9.0-12.0)
[2021-02-22 17:27] LABS: Partial Thromboplastin Time 19.4 sec (22.0-30.0)
[2021-02-22] MEDS ORDERED: SODIUM CHLORIDE 0.9% 1,000 ML IV STA (17:45)
--- NOTE | 2021-02-22 19:25 | CT ---
EXAMINATION TYPE: CT angio chest with contrast and with 3-D reconstruction renderings DATE OF EXAM: 02/22/2021 6:57 PM COMPARISON: 11/12/2019 HISTORY: chest pain, SOB CT DLP: 720.2 mGycm Automated exposure control for dose reduction was used. CONTRAST: CTA scan of the thorax is performed with IV Contrast, patient injected with 80cc mL of Isov ue 370, pulmonary embolism protocol. . FINDINGS: Limitation: There is at least mild patient motion artifact obscuring CT detail. Airways: Unremarkable Lungs: Unremarkable Pleural spaces: Unremarkable MEDIASTINUM: There is satisfactory enhancement of the pulmonary artery and its branches with no CT ev idence for pulmonary embolism. There are no acute aortic findings. There are prominent left and right coronary calcifications. No cardiomegaly or pericardial effusion. No mediastinal or hilar adenopathy . OTHER: No additional significant abnormality is seen. IMPRESSION: 1. NEGATIVE FOR PULMONARY EMBOLISM. 2. PROMINENT LEFT AND RIGHT CORONARY CALCIFICATIONS.
[2021-02-22] MEDS ORDERED: AZITHROMYCIN 500 MG in SODIUM CHLORIDE 0.9% 250 ML IVPB STA (20:31)
[2021-02-22] MEDS ORDERED: IPRATROPIUM-ALBUTEROL 3 ML NEB INHALATION PRN (20:31)
[2021-02-22] MEDS ORDERED: PNEUMONIA PROTOCOL UTILIZED 1 EACH MISC PO PRN (20:31)
[2021-02-22] MEDS ORDERED: INSULIN DETEMIR (LEVEMIR) 100 UNIT/ML SYR SQ PRN (23:32)
[2021-02-22] MEDS ORDERED: Potassium Replacement Protocol 1 EACH MISC MISCELLANE PRN (23:32)
[2021-02-23] MEDS: POTASSIUM CHLORIDE ER 20 MEQ TAB.ER PO SCH (00:50)
[2021-02-23] MEDS: SODIUM CHLORIDE 0.9% 1,000 ML IV SCH ×2 (00:51→08:00)
--- NOTE | 2021-02-23 06:48 | XR ---
EXAMINATION TYPE: XR chest 2V DATE OF EXAM: 02/23/2021 COMPARISON: Chest x-ray and CTA chest one day earlier. HISTORY: Shortness of breath and pneumonia. TECHNIQUE: Frontal and lateral views of the chest are obtained. FINDINGS: There are chronic parenchymal changes bilaterally without suspicious focal air space opaci ty, pleural effusion, or pneumothorax seen. The cardiac silhouette size is stable and within normal limits. Surgical change right shoulder partially imaged. IMPRESSION: Chronic changes without acute airspace opacity identified. No significant change from on e day earlier.
[2021-02-23 07:04] LABS: Glucose,Whole Blood 74 mg/dL (75-99)
[2021-02-23] MEDS: INSULIN ASPART (NovoLOG) 100 UNIT/ML VIAL SQ SCH ×4 (07:25→22:06)
[2021-02-23] MEDS: KETOROLAC 0.5% OPHTH DROPS 5 ML BTL LEFT EYE SCH ×4 (07:49→22:05)
[2021-02-23] MEDS: ASPIRIN 81 MG PO SCH (07:50)
[2021-02-23] MEDS: COLCHICINE 0.6 MG EACH PO SCH (07:50)
[2021-02-23] MEDS: MAGNESIUM OXIDE 400 MG TAB PO SCH (07:50)
[2021-02-23] MEDS: TAMSULOSIN 0.4 MG CAP.ER.24H PO SCH (07:50)
[2021-02-23] MEDS: QUEtiapine 25 MG TAB PO SCH ×2 (07:51→21:57)
[2021-02-23] MEDS: IPRATROPIUM-ALBUTEROL 3 ML NEB INHALATION SCH ×4 (08:36→20:40)
[2021-02-23] MEDS ORDERED: CYCLOBENZAPRINE 10 MG TAB PO SCH (09:00)
[2021-02-23] MEDS ORDERED: AZITHROMYCIN 500 MG TAB PO SCH (09:00)
[2021-02-23 11:06] LABS: Calcium 8.4 mg/dL (8.4-10.2); Potassium 3.8 mmol/L (3.5-5.1)
[2021-02-23] MEDS ORDERED: methylPREDNISolone SOD SUCCI 40 MG/ML 1 ML VIAL IV STA (11:24)
[2021-02-23] MEDS ORDERED: CYCLOBENZAPRINE 5 MG TAB PO PRN (11:27)
--- NOTE | 2021-02-23 12:17 | P.CNPUL ---
History of Present Illness Consult date: 02/23/21 Requesting physician: Dax Pizarro Reason for consult: dyspnea, COPD Chief complaint: Palpitations, shortness of breath, cough History of present illness: This is a very pleasant 71-year-old gentleman with a known history of diabetes mellitus, hyperlipidemia, hypertension, gastroesophageal reflux disease, elevated liver enzymes due for follow-up ultrasound of the liver in 2 weeks. He also has a history of chronic obstructive pulmonary disease and is oxygen and steroid dependent. He follows with Dr. Chang in our office for the same. FEV1 today 58% of predicted. 1.71 L. He is maintained on Breo, DuoNeb inhalations, albuterol HFA. 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 He also states he's had cold-like symptoms for the past 1 week. Some shortness of breath cough and congestion. Initial chest x- ray revealed some pulmonary vascular congestion. CT and a gram is negative for pulmonary embolism. No significant pulmonary findings. Chest today again reveals chronic changes without acute airspace opacities. White count 12.0. Hemoglobin 13.8. D-dimer 0.83. Sodium 139. Potassium 3.8. Bicarb 32. Creatinine 1.27. Glucose 112. Troponins negative 2. AST 89. ALT 126. Chronic rhinitis by PCR not detected. He's been initiated on DuoNeb inhalations, Pulmicort inhalations, IV Solu-Medrol. He had been given antibiotics in the form of ceftriaxone and azithromycin. Pro-calcitonin level pending. He is seen today in consultation on the observation unit. He is currently sitting up at the bedside. Awake and alert in no acute distress. No worsening shortness of breath, cough or congestion. No fever chills or night sweats. No hemoptysis. No chest pain or palpitations. He is still somewhat bronchospastic and wheezy Review of Systems REVIEW OF SYSTEMS: CONSTITUTIONAL: Denies any recent significant weight loss or weight gain. EYES: Denies change in vision. EARS, NOSE, MOUTH, THROAT: Denies headaches, denies sore throat. CARDIOVASCULAR: Positive for palpitations no syncopal episodes. RESPIRATORY: Positive for shortness of breath, cough, congestion no hemoptysis. GASTROINTESTINAL: Denies change in appetite, denies abdominal pain GENITOURINARY: Denies hematuria, denies infections. MUSKULOSKELETAL: Denies pain, denies swelling. INTEGUMENTARY: Denies rash, denies eczema. NEUROLOGICAL: Denies recent memory loss, no recent seizure activity. PSYCHIATRIC: Denies anxiety, denies depression. HEMATOLOGIC/LYMPHATIC: Denies anemia, denies enlarged lymph nodes. Past Medical History Past Medical History: Coronary Artery Disease (CAD), Chest Pain / Angina, Heart Failure, COPD, CVA/TIA, Diabetes Mellitus, Deep Vein Thrombosis (DVT), GERD/Reflux, Hyperlipidemia, Hypertension, Osteoarthritis (OA), Pneumonia, Prostate Disorder, Renal Disease, Respiratory Disorder, Sleep Apnea/CPAP/BIPAP Additional Past Medical History / Comment(s): IDDM type II, neuropathy hands/feet, hx severe sepsis secondary to discitis/osteomylitis, urinary retention with granados during sepsis, Hx DVT R arm/sepsis d/t cellulitis in legs, venous insufficiency, swelling in legs and feet., spondylolsis, cervical, low back and bilateral knee pain, DDD, gout, chronic respiratory failure, CALLI (does not use machine)., nonsustained vtach, TIAs, small vessel disease, BPH, diverticular disease, colon polyps, sinus problems, seasonal allergies, Mixed Connective Tissue Disease .,hallucinations/confusion with sepsis/fever., Pt was hospitalized at [facility] in August for dyspnea, chf & renal failure. History of Any Multi-Drug Resistant Organisms: None Reported Past Surgical History: Back Surgery, Heart Catheterization With Stent, Joint Replacement, Orthopedic Surgery Additional Past Surgical History / Comment(s): Bilateral knee arthroscopies, total L knee arthroplasty, R total shoulder arthroplasty, L hand injury with repair, low back surgery, PCI with 3 stents, colonoscopies/polypectomies, cervical/lumbar epidural injections, cataract removals/lens implants. Past Anesthesia/Blood Transfusion Reactions: No Reported Reaction Additional Past Anesthesia/Blood Transfusion Reaction / Comment(s): STATES "HAD A HARD TIME WITH BREATHING POST OP" Date of Last Stent Placement:: 2009 Past Psychological History: No Psychological Hx Reported Additional Psychological History / Comment(s): . Smoking Status: Former smoker Past Alcohol Use History: None Reported Additional Past Alcohol Use History / Comment(s): QUIT SMOKING IN 2009, STARTED 1962, SMOKED 2 PPD Past Drug Use History: Marijuana Additional Drug Use History / Comment(s): In the past pt tried marijuana gummies-did not help. - Past Family History Father Family Medical History: CVA/TIA, Hyperlipidemia, Hypertension Additional Family Medical History / Comment(s): Father of a CVA at the age of 55 yrs. Mother Family Medical History: No Reported History Additional Family Medical History / Comment(s): Mother lived to be 93 yrs old. Medications and Allergies Home Medications Medication Instructions Recorded Confirmed Type Omeprazole 20 mg PO DAILY@69911/23/19 02/22/21 History Tamsulosin [Flomax] 0.4 mg PO DAILY@69911/23/19 02/22/21 History Aspirin EC [Ecotrin Low Dose] 81 mg PO DAILY@69912/09/19 02/22/21 History Colchicine 0.6 mg PO DAILY@69903/23/20 02/22/21 History Magnesium 250 mg PO DAILY@0703/23/20 02/22/21 History hydrALAZINE HCL 50 mg PO BID@1200,1930 03/23/20 02/22/21 History Spironolactone 25 mg PO DAILY@69904/19/20 02/22/21 History Isosorbide Mononitrate [Isosorbide 30 mg PO DAILY@69906/15/20 02/22/21 History Mononitrate ER] Nitroglycerin Sl Tabs [Nitrostat] 0.4 mg SUBLINGUAL Q5M PRN 06/15/20 02/22/21 History oxyCODONE-APAP 10-325MG [Percocet 1 tab PO Q6HR PRN 06/15/20 02/22/21 History 10-325 mg] Ergocalciferol [Vitamin D2 (1250 1,250 mcg PO Q14D 08/21/20 02/22/21 History Mcg = 86960 Iu)] Ipratropium-Albuterol Nebulize 3 ml INHALATION RT-QID 08/21/20 02/22/21 History [Duoneb 0.5 mg-3 mg/3 ml Soln] predniSONE [Deltasone] 20 mg PO DAILY@0700 08/21/20 02/22/21 History Insulin Glargine [Lantus Vial] 40 unit SQ HS@1929 PRN 12/01/20 02/22/21 History Fluticasone/Vilanterol [Breo 1 puff IN RT-HS@192901/08/21 02/22/21 History Ellipta 100-25 Mcg Inhaler] Albuterol Inhaler [Ventolin Hfa 2 puff INHALATION RT-QID PRN 02/22/21 02/22/21 History Inhaler] Cyclobenzaprine [Flexeril] 10 mg PO TID@0700,1200,192902/22/21 02/22/21 History Febuxostat [Uloric] 40 mg PO DAILY@0700 02/22/21 02/22/21 History Furosemide [Lasix] 40 mg PO BID@0700,192902/22/21 02/22/21 History Ketorolac 0.5% Ophth Soln [Acular 1 drops LEFT EYE QID 02/22/21 02/22/21 History 0.5%] Metoprolol Tartrate [Lopressor] 25 mg PO HS@19302/22/21 02/22/21 History Metoprolol Tartrate [Lopressor] 50 mg PO DAILY@0700 02/22/21 02/22/21 History Pramipexole [Mirapex] 1 mg PO HS@1930 02/22/21 02/22/21 History QUEtiapine [SEROquel] 25 mg PO BID@07,192902/22/21 02/22/21 History calcitrioL [Rocaltrol] 0.25 mcg PO Q14D 02/22/21 02/22/21 History hydrALAZINE HCL [Apresoline] 100 mg PO DAILY@0700 02/22/21 02/22/21 History Allergies Allergy/AdvReac Type Severity Reaction Status Date / Time acetaminophen [From Tylenol] AdvReac kidney/liver Verified 02/22/21 17:13 issues Physical Exam Vitals: Vital Signs Temp Pulse Pulse Pulse Resp BP BP 02/23/21 11:59 88 18 02/23/21 08:23 97.5 F L 93 20 131/75 02/23/21 03:59 02/23/21 03:56 98 F 79 16 133/72 02/22/21 20:00 92 18 108/68 02/22/21 18:01 94 18 117/64 02/22/21 15:29 98.3 F 114 H 22 148/67 Pulse Ox 02/23/21 11:59 02/23/21 08:23 95 02/23/21 03:59 96 02/23/21 03:56 94 L 02/22/21 20:00 93 L 02/22/21 18:01 96 02/22/21 15:29 93 L Intake and Output 02/22/21 02/23/21 02/23/21 22:59 06:59 14:59 Intake Total 600 Balance 600 Intake: Intake, IV Titration 600 Amount Sodium Chloride 0.9% 1, 600 000 ml @ 75 mls/hr IV . [id number] STA Rx#:[id number] Other: Voiding Method Toilet Weight 104.78 kg GENERAL EXAM: Alert, pleasant 71-year-old gentleman, on 2 L/m per nasal cannula with O2 saturation 95%, comfortable in no apparent distress. HEAD: Normocephalic. EYES: Normal reaction of pupils, equal size. NOSE: Clear with pink turbinates. THROAT: No erythema or exudates. NECK: No masses, no JVD. CHEST: No chest wall deformity. LUNGS: Equal air entry with bilateral end expiratory wheeze, diminished. CVS: S1 and S2 normal with no audible murmur, regular rhythm. ABDOMEN: No hepatosplenomegaly, normal bowel sounds, no guarding or rigidity. SPINE: No scoliosis or deformity SKIN: No rashes CENTRAL NERVOUS SYSTEM: No focal deficits, tone is normal in all 4 extremities. EXTREMITIES: There is no peripheral edema. No clubbing, no cyanosis. Peripheral pulses are intact. Results - Laboratory Findings CBC and BMP: 02/22/21 16:40 02/23/21 09:56 PT/INR, D-dimer PT 9.9 sec (9.0-12.0) 02/22/21 16:40 INR 0.9 (<1.2) 02/22/21 16:40 D-Dimer 0.83 mg/L FEU (<0.60) H 02/22/21 16:40 Abnormal lab findings: Abnormal Labs 02/22/21 02/22/21 02/22/21 16:40 16:40 16:40 WBC 12.0 H RBC 4.24 L RDW 15.8 H Neutrophils # 9.6 H APTT 19.4 L D-Dimer 0.83 H Sodium 134 L Potassium 3.4 L Carbon Dioxide BUN 55 H Creatinine 1.46 H Glucose 173 H POC Glucose (mg/dL) AST 89 H ALT 126 H Alkaline Phosphatase 131 H Total Protein 5.8 L Albumin 3.3 L 02/23/21 02/23/21 07:01 09:56 WBC RBC RDW Neutrophils # APTT D-Dimer Sodium Potassium Carbon Dioxide 32 H BUN 40 H Creatinine 1.27 H Glucose 112 H POC Glucose (mg/dL) 74 L AST ALT Alkaline Phosphatase Total Protein Albumin - Diagnostic Findings Chest x-ray: image reviewed CT scan - chest: image reviewed Assessment and Plan Assessment: 1 Acute exacerbation of chronic obstructive pulmonary disease 2 COPD, oxygen dependent, steroid dependent, FEV1 value of 50% of predicted 3 Former smoker 4 Palpitations EKG reveals sinus rhythm with occasional PVCs 5 Coronary artery disease with previous stent placement 6 Diabetes mellitus, type II 7 Diabetic neuropathy 8 Hyperlipidemia 9 Hypertension 10 History of CVA/TIA 11 Obstructive sleep apnea 12 Osteoarthritis of multiple orthopedic procedures Plan: The patient was seen and evaluated on the observation unit Chest x-rays, CAT scan and labs reviewed Add IV Solu-Medrol, DuoNeb inhalations, Pulmicort and Perforomist inhalations Check a pro-calcitonin Titrate the FiO2 as tolerated The patient does have home oxygen as needed Probable discharge in the a.m. To keep appointment with Dr. Chang on 03/09/2021 We will continue to follow and make further recommendations based on his clinical status Time with Patient: Greater than 30
[2021-02-23 12:19] LABS: HCT 39.8 % (39.0-53.0); HGB 13.2 gm/dL (13.0-17.5); MCH 32.9 pg (25.0-35.0); MCHC 33.1 g/dL (31.0-37.0); MCV 99.3 fL (80.0-100.0); Macrocytosis Slight; Mean Platelet Volume 9.6; Platelet Count 153 k/uL (150-450); RBC 4.01 m/uL (4.30-5.90); RDW 15.8 % (11.5-15.5); WBC 9.8 k/uL (3.8-10.6)
[2021-02-23 12:21] LABS: Glucose,Whole Blood 89 mg/dL (75-99)
--- NOTE | 2021-02-23 13:40 | P.HPIM ---
History of Present Illness 71-year-old the male came in with complaints of palpitations generalized weakness and tiredness patient the has a pretty much of vague symptoms but appears severely fatigued. Patient does have history of COPD oxygen dependent. Patient had FEV1 of 1.71. Patient is comparing of cough and congestion patient was initially thought to have a pneumonia was started on antibiotics although CT did not show any infiltrate consistent with pneumonia although showed some bilateral pleural effusions mild and chronic. Patient does have wheezing on exam patient does have COPD with acute exacerbation patient does have mildly elevated liver enzymes which are chronic actually better than before. Patient was also in acute renal failure with creatinine of 1.46 baseline is around 1.2 patient present creatinine is around 1.27. Pro-calcitonin was ordered. Antibiotics were discontinued. REVIEW OF SYSTEMS: CONSTITUTIONAL: No fever. HEENT: No recent visual problems or hearing problems. Denied any sore throat. CARDIOVASCULAR: No chest pain, orthopnea, PND, no palpitations, no syncope. PULMONARY: no hemoptysis. GASTROINTESTINAL: No diarrhea, no nausea, no vomiting, no abdominal pain. NEUROLOGICAL: No headaches, no weakness, no numbness. HEMATOLOGICAL: Denies any bleeding or petechiae. GENITOURINARY: Denies any burning micturition, frequency, or urgency. MUSCULOSKELETAL/RHEUMATOLOGICAL: Denies any joint pain, swelling, or any muscle pain. ENDOCRINE: Denies any polyuria or polydipsia. The rest of the 14-point review of systems is negative. PHYSICAL EXAMINATION: GENERAL: The patient is alert and oriented x3, not in any acute distress. Well developed, well nourished. HEENT: Pupils are round and equally reacting to light. EOMI. No scleral icterus. No conjunctival pallor. Normocephalic, atraumatic. No pharyngeal erythema. No thyromegaly. CARDIOVASCULAR: S1 and S2 present. No murmurs, rubs, or gallops. PULMONARY: Significant expiratory wheezing on exam ABDOMEN: Soft, nontender, nondistended, normoactive bowel sounds. No palpable organomegaly. MUSCULOSKELETAL: No joint swelling or deformity. EXTREMITIES: No cyanosis, clubbing, or pedal edema. NEUROLOGICAL: Gross neurological examination did not reveal any focal deficits. SKIN: No rashes. Assessment and plan -COPD exacerbation: Patient will be given 1 dose of systems steroids along with the inhaled steroids and inhalational treatments -No clinical evidence of pneumonia and medics were discussed in your -Palpitations EKG showed PVCs without any atrial fibrillation -Coronary artery disease with stents in the past -Type 2 diabetes mellitus -Hyperlipidemia -Diabetic nephropathy -Chronic kidney disease from diabetic nephropathy patient has CKD stage II -Acute renal failure prerenal improved with the IV fluids. -Chronic venous stasis of bilateral lower extremities -Obstructive sleep apnea -Restless leg syndrome for which patient is on Mirapex will be continued -Benign prostatic hypertrophy for which patient is on Flomax DVT prophylaxis: Subcutaneous heparin Past Medical History Past Medical History: Coronary Artery Disease (CAD), Chest Pain / Angina, Heart Failure, COPD, CVA/TIA, Diabetes Mellitus, Deep Vein Thrombosis (DVT), GERD/Reflux, Hyperlipidemia, Hypertension, Osteoarthritis (OA), Pneumonia, Prostate Disorder, Renal Disease, Respiratory Disorder, Sleep Apnea/CPAP/BIPAP Additional Past Medical History / Comment(s): IDDM type II, neuropathy hands/feet, hx severe sepsis secondary to discitis/osteomylitis, urinary retention with granados during sepsis, Hx DVT R arm/sepsis d/t cellulitis in legs, venous insufficiency, swelling in legs and feet., spondylolsis, cervical, low back and bilateral knee pain, DDD, gout, chronic respiratory failure, CALLI (does not use machine)., nonsustained vtach, TIAs, small vessel disease, BPH, diverticular disease, colon polyps, sinus problems, seasonal allergies, Mixed Connective Tissue Disease .,hallucinations/confusion with sepsis/fever., Pt was hospitalized at [facility] in August for dyspnea, chf & renal failure. History of Any Multi-Drug Resistant Organisms: None Reported Past Surgical History: Back Surgery, Heart Catheterization With Stent, Joint Replacement, Orthopedic Surgery Additional Past Surgical History / Comment(s): Bilateral knee arthroscopies, total L knee arthroplasty, R total shoulder arthroplasty, L hand injury with repair, low back surgery, PCI with 3 stents, colonoscopies/polypectomies, cervical/lumbar epidural injections, cataract removals/lens implants. Past Anesthesia/Blood Transfusion Reactions: No Reported Reaction Additional Past Anesthesia/Blood Transfusion Reaction / Comment(s): STATES "HAD A HARD TIME WITH BREATHING POST OP" Date of Last Stent Placement:: 2009 Past Psychological History: No Psychological Hx Reported Additional Psychological History / Comment(s): . Smoking Status: Former smoker Past Alcohol Use History: None Reported Additional Past Alcohol Use History / Comment(s): QUIT SMOKING IN 2009, STARTED 1962, SMOKED 2 PPD Past Drug Use History: Marijuana Additional Drug Use History / Comment(s): In the past pt tried marijuana gummies-did not help. - Past Family History Father Family Medical History: CVA/TIA, Hyperlipidemia, Hypertension Additional Family Medical History / Comment(s): Father of a CVA at the age of 55 yrs. Mother Family Medical History: No Reported History Additional Family Medical History / Comment(s): Mother lived to be 93 yrs old. Medications and Allergies Home Medications Medication Instructions Recorded Confirmed Type Omeprazole 20 mg PO DAILY@69911/23/19 02/22/21 History Tamsulosin [Flomax] 0.4 mg PO DAILY@69911/23/19 02/22/21 History Aspirin EC [Ecotrin Low Dose] 81 mg PO DAILY@69912/09/19 02/22/21 History Colchicine 0.6 mg PO DAILY@0703/23/20 02/22/21 History Magnesium 250 mg PO DAILY@69903/23/20 02/22/21 History hydrALAZINE HCL 50 mg PO BID@1200,1930 03/23/20 02/22/21 History Spironolactone 25 mg PO DAILY@69904/19/20 02/22/21 History Isosorbide Mononitrate [Isosorbide 30 mg PO DAILY@69906/15/20 02/22/21 History Mononitrate ER] Nitroglycerin Sl Tabs [Nitrostat] 0.4 mg SUBLINGUAL Q5M PRN 06/15/20 02/22/21 History oxyCODONE-APAP 10-325MG [Percocet 1 tab PO Q6HR PRN 06/15/20 02/22/21 History 10-325 mg] Ergocalciferol [Vitamin D2 (1250 1,250 mcg PO Q14D 08/21/20 02/22/21 History Mcg = 49630 Iu)] Ipratropium-Albuterol Nebulize 3 ml INHALATION RT-QID 08/21/20 02/22/21 History [Duoneb 0.5 mg-3 mg/3 ml Soln] predniSONE [Deltasone] 20 mg PO DAILY@0708/21/20 02/22/21 History Insulin Glargine [Lantus Vial] 40 unit SQ HS@1929 PRN 12/01/20 02/22/21 History Fluticasone/Vilanterol [Breo 1 puff IN RT-HS@192901/08/21 02/22/21 History Ellipta 100-25 Mcg Inhaler] Albuterol Inhaler [Ventolin Hfa 2 puff INHALATION RT-QID PRN 02/22/21 02/22/21 History Inhaler] Cyclobenzaprine [Flexeril] 10 mg PO TID@0700,1200,192902/22/21 02/22/21 History Febuxostat [Uloric] 40 mg PO DAILY@0700 02/22/21 02/22/21 History Furosemide [Lasix] 40 mg PO BID@07,192902/22/21 02/22/21 History Ketorolac 0.5% Ophth Soln [Acular 1 drops LEFT EYE QID 02/22/21 02/22/21 History 0.5%] Metoprolol Tartrate [Lopressor] 25 mg PO HS@192902/22/21 02/22/21 History Metoprolol Tartrate [Lopressor] 50 mg PO DAILY@0700 02/22/21 02/22/21 History Pramipexole [Mirapex] 1 mg PO HS@192902/22/21 02/22/21 History QUEtiapine [SEROquel] 25 mg PO BID@0700,192902/22/21 02/22/21 History calcitrioL [Rocaltrol] 0.25 mcg PO Q14D 02/22/21 02/22/21 History hydrALAZINE HCL [Apresoline] 100 mg PO DAILY@0700 02/22/21 02/22/21 History Allergies Allergy/AdvReac Type Severity Reaction Status Date / Time acetaminophen [From Tylenol] AdvReac kidney/liver Verified 02/22/21 17:13 issues Physical Exam Vitals: Vital Signs Temp Pulse Pulse Pulse Resp BP BP 02/23/21 12:09 90 18 02/23/21 11:59 88 18 02/23/21 08:23 97.5 F L 93 20 131/75 02/23/21 03:59 02/23/21 03:56 98 F 79 16 133/72 02/22/21 20:00 92 18 108/68 02/22/21 18:01 94 18 117/64 02/22/21 15:29 98.3 F 114 H 22 148/67 Pulse Ox 02/23/21 12:09 02/23/21 11:59 02/23/21 08:23 95 02/23/21 03:59 96 02/23/21 03:56 94 L 02/22/21 20:00 93 L 02/22/21 18:01 96 02/22/21 15:29 93 L Intake and Output 02/22/21 02/23/21 02/23/21 22:59 06:59 14:59 Intake Total 600 120 Balance 600 120 Intake: Intake, IV Titration 600 Amount Sodium Chloride 0.9% 1, 600 000 ml @ 75 mls/hr IV . [id number] STA Rx#:[id number] Oral 120 Other: Voiding Method Toilet Weight 104.78 kg Results CBC & Chem 7: 02/23/21 09:56 02/23/21 09:56 Labs: Abnormal Lab Results - Last 24 Hours (Table) 02/22/21 02/22/21 02/22/21 Range/Units 16:40 16:40 16:40 WBC 12.0 H (3.8-10.6) k/uL RBC 4.24 L (4.30-5.90) m/uL RDW 15.8 H (11.5-15.5) % Neutrophils # 9.6 H (1.3-7.7) k/uL APTT 19.4 L (22.0-30.0) sec D-Dimer 0.83 H (<0.60) mg/L FEU Sodium 134 L (137-145) mmol/L Potassium 3.4 L (3.5-5.1) mmol/L Carbon Dioxide (22-30) mmol/L BUN 55 H (9-20) mg/dL Creatinine 1.46 H (0.66-1.25) mg/dL Glucose 173 H (74-99) mg/dL POC Glucose (mg/dL) (75-99) mg/dL AST 89 H (17-59) U/L ALT 126 H (4-49) U/L Alkaline Phosphatase 131 H (38-126) U/L Total Protein 5.8 L (6.3-8.2) g/dL Albumin 3.3 L (3.5-5.0) g/dL 02/23/21 02/23/21 02/23/21 Range/Units 07:01 09:56 09:56 WBC (3.8-10.6) k/uL RBC 4.01 L (4.30-5.90) m/uL RDW 15.8 H (11.5-15.5) % Neutrophils # (1.3-7.7) k/uL APTT (22.0-30.0) sec D-Dimer (<0.60) mg/L FEU Sodium (137-145) mmol/L Potassium (3.5-5.1) mmol/L Carbon Dioxide 32 H (22-30) mmol/L BUN 40 H (9-20) mg/dL Creatinine 1.27 H (0.66-1.25) mg/dL Glucose 112 H (74-99) mg/dL POC Glucose (mg/dL) 74 L (75-99) mg/dL AST (17-59) U/L ALT (4-49) U/L Alkaline Phosphatase (38-126) U/L Total Protein (6.3-8.2) g/dL Albumin (3.5-5.0) g/dL Thrombosis Risk Factor Assmnt - Choose All That Apply Each Factor Represents 1 point: Abnormal pulmonary function (COPD), Swollen legs (current) Each Risk Factor Represents 2 Points: Age 61-74 years Each Risk Factor Represents 3 Points: History of DVT/PE Thrombosis Risk Factor Assessment Total Risk Factor Score: 7 Thrombosis Risk Factor Assessment Level: High Risk
[2021-02-23 14:14] LABS: Band Neutrophils % 1 %; Lymphocytes # (M) 1.37 k/uL (1.0-4.8); Metamyelocytes # (M) 0.29 k/uL (0); Metamyelocytes % 3 %; Monocytes # (M) 0.39 k/uL (0-1.0); Myelocytes # (M) 0.49 k/uL (0); Myelocytes % 5 %; Neutrophils % (M) 73 %; Nucleated Red Blood Cells 0 /100 WBC (0-0); Polychromasia Present; Total Cells Counted 200
[2021-02-23 17:05] LABS: Glucose,Whole Blood 205 mg/dL (75-99)
[2021-02-23] MEDS: HEPARIN SODIUM,PORCINE/PF 5,000 UNIT/0.5 ML SYRINGE SQ SCH (17:30)
[2021-02-23] MEDS ORDERED: BUDESONIDE 0.5 MG/2 ML NEBU INHALATION SCH (20:00)
[2021-02-23] MEDS: BUDESONIDE 1 MG/2 ML NEBU INHALATION SCH (20:40)
[2021-02-23] MEDS: FORMOTEROL FUMARATE 20 MCG/2 ML NEBU INHALATION SCH (20:40)
[2021-02-23] MEDS ORDERED: PRAMIPEXOLE 1 MG TAB PO SCH (21:00)
[2021-02-23] MEDS: methylPREDNISolone SOD SUCCI 40 MG/ML 1 ML VIAL IV SCH (21:57)
[2021-02-23 22:03] LABS: Glucose,Whole Blood 321 mg/dL (75-99)
[2021-02-24] MEDS: HEPARIN SODIUM,PORCINE/PF 5,000 UNIT/0.5 ML SYRINGE SQ SCH ×2 (00:13→08:40)
[2021-02-24] MEDS: methylPREDNISolone SOD SUCCI 40 MG/ML 1 ML VIAL IV SCH (04:56)
[2021-02-24 07:52] LABS: Glucose,Whole Blood 280 mg/dL (75-99)
[2021-02-24] MEDS: MAGNESIUM OXIDE 400 MG TAB PO SCH (08:40)
[2021-02-24] MEDS: ASPIRIN 81 MG PO SCH (08:40)
[2021-02-24] MEDS: TAMSULOSIN 0.4 MG CAP.ER.24H PO SCH (08:40)
[2021-02-24] MEDS: QUEtiapine 25 MG TAB PO SCH (08:40)
[2021-02-24] MEDS: COLCHICINE 0.6 MG EACH PO SCH (08:40)
[2021-02-24] MEDS: INSULIN ASPART (NovoLOG) 100 UNIT/ML VIAL SQ SCH ×2 (08:40→12:43)
[2021-02-24] MEDS: KETOROLAC 0.5% OPHTH DROPS 5 ML BTL LEFT EYE SCH ×2 (08:41→12:43)
[2021-02-24] MEDS: IPRATROPIUM-ALBUTEROL 3 ML NEB INHALATION SCH ×2 (09:00→13:51)
[2021-02-24 09:46] LABS: HCT 42.6 % (39.0-53.0); HGB 14.1 gm/dL (13.0-17.5); MCH 32.4 pg (25.0-35.0); MCV 98.2 fL (80.0-100.0); Mean Platelet Volume 9.2; Platelet Count 167 k/uL (150-450); RBC 4.34 m/uL (4.30-5.90); WBC 19.8 k/uL (3.8-10.6)
[2021-02-24 10:12] LABS: Albumin 3.4 g/dL (3.5-5.0); Calcium 8.9 mg/dL (8.4-10.2); Total Bilirubin 0.7 mg/dL (0.2-1.3); Total Protein 6.1 g/dL (6.3-8.2)
[2021-02-24 10:18] LABS: Potassium 4.7 mmol/L (3.5-5.1)
--- NOTE | 2021-02-24 11:37 | P.PN ---
Subjective Progress Note Date: 02/24/21 02/24/2021, the patient is recovered from the COPD exacerbation. Feeling much better. He states that his breathing is back to its baseline. He is on IV Solu Medrol presumptive DuoNeb nebulized treatments around the clock. He is taken his COVID 19 vaccination. He has no other complaints otherwise for now. No other complaints otherwise. No chest pain. Altered mentation. Blood work shows stable renal function with a creatinine of 1.1, sodium is at 136, white cell count is at 19.6 and his protest on level is at 0.31. He is currently on no antibiotics. Chest x-ray showed COPD Objective - Vital Signs Vital signs: Vital Signs Temp 98.2 F 02/24/21 08:00 Pulse 88 02/24/21 09:00 Resp 16 02/24/21 08:00 BP 145/76 02/24/21 08:00 Pulse Ox 94 L 02/24/21 08:00 Intake & Output 02/23/21 02/24/21 02/24/21 18:59 06:59 18:59 Intake Total 1320 800 Balance 1320 800 Intake: Intake, IV Titration 1200 0 Amount Sodium Chloride 0.9% 1, 1200 0 000 ml @ 100 mls/hr IV . Q10H [facility] Rx#:[id number] Oral 120 800 Other: Voiding Method Toilet Toilet - Exam GENERAL EXAM: Alert, pleasant 71-year-old gentleman, on 2 L/m per nasal cannula with O2 saturation 95%, comfortable in no apparent distress. HEAD: Normocephalic. EYES: Normal reaction of pupils, equal size. NOSE: Clear with pink turbinates. THROAT: No erythema or exudates. NECK: No masses, no JVD. CHEST: No chest wall deformity. LUNGS: Equal air entry with bilateral end expiratory wheeze, diminished. CVS: S1 and S2 normal with no audible murmur, regular rhythm. ABDOMEN: No hepatosplenomegaly, normal bowel sounds, no guarding or rigidity. SPINE: No scoliosis or deformity SKIN: No rashes CENTRAL NERVOUS SYSTEM: No focal deficits, tone is normal in all 4 extremities. EXTREMITIES: There is no peripheral edema. No clubbing, no cyanosis. Peripheral pulses are intact. - Labs CBC & Chem 7: 02/24/21 09:06 02/24/21 09:06 Labs: Abnormal Lab Results - Last 24 Hours (Table) 02/23/21 02/23/21 02/23/21 Range/Units 09:56 09:56 16:50 WBC (3.8-10.6) k/uL RBC 4.01 L (4.30-5.90) m/uL RDW 15.8 H (11.5-15.5) % Metamyelocytes # (Man) 0.29 H (0) k/uL Myelocytes # (Manual) 0.49 H (0) k/uL Sodium (137-145) mmol/L BUN (9-20) mg/dL Glucose (74-99) mg/dL POC Glucose (mg/dL) 205 H (75-99) mg/dL AST (17-59) U/L ALT (4-49) U/L Total Protein (6.3-8.2) g/dL Albumin (3.5-5.0) g/dL Procalcitonin 0.31 H (0.02-0.09) ng/mL 02/23/21 02/24/21 02/24/21 Range/Units 22:01 07:50 09:06 WBC 19.8 H (3.8-10.6) k/uL RBC (4.30-5.90) m/uL RDW (11.5-15.5) % Metamyelocytes # (Man) (0) k/uL Myelocytes # (Manual) (0) k/uL Sodium (137-145) mmol/L BUN (9-20) mg/dL Glucose (74-99) mg/dL POC Glucose (mg/dL) 321 H 280 H (75-99) mg/dL AST (17-59) U/L ALT (4-49) U/L Total Protein (6.3-8.2) g/dL Albumin (3.5-5.0) g/dL Procalcitonin (0.02-0.09) ng/mL 02/24/21 Range/Units 09:06 WBC (3.8-10.6) k/uL RBC (4.30-5.90) m/uL RDW (11.5-15.5) % Metamyelocytes # (Man) (0) k/uL Myelocytes # (Manual) (0) k/uL Sodium 136 L (137-145) mmol/L BUN 34 H (9-20) mg/dL Glucose 339 H (74-99) mg/dL POC Glucose (mg/dL) (75-99) mg/dL AST 76 H (17-59) U/L ALT 122 H (4-49) U/L Total Protein 6.1 L (6.3-8.2) g/dL Albumin 3.4 L (3.5-5.0) g/dL Procalcitonin (0.02-0.09) ng/mL Microbiology - Last 24 Hours (Table) 02/22/21 19:00 Blood Culture - Preliminary Blood No Growth after 24 hours 02/22/21 19:15 Blood Culture - Preliminary Blood No Growth after 24 hours Assessment and Plan Plan: 1 Acute exacerbation of chronic obstructive pulmonary disease, improved, back to baseline 2 COPD, oxygen dependent, steroid dependent, FEV1 value of 50% of predicted 3 Former smoker 4 Palpitations EKG reveals sinus rhythm with occasional PVCs 5 Coronary artery disease with previous stent placement 6 Diabetes mellitus, type II 7 Diabetic neuropathy 8 Hyperlipidemia 9 Hypertension 10 History of CVA/TIA 11 Obstructive sleep apnea 12 Osteoarthritis of multiple orthopedic procedures Plan: Start the patient on prednisone burst taper and a course of Zithromax to be comp leted on outpatient basis. Continue bronchodilators at home Mild leukocytosis was noted along with a mild elevation of the pro-calcitonin. He'll be given a course of Zithromax to be taken outpatient basis. Patient has home O2 Check a pro-calcitonin, mildly elevated Titrate the FiO2 as tolerated The patient does have home oxygen as needed Clear for discharge from the pulmonary standpoint.
[2021-02-24] MEDS ORDERED: AZITHROMYCIN 500 MG TAB PO SCH (11:45)
[2021-02-24 12:32] LABS: Glucose,Whole Blood 455 mg/dL (75-99)
[2021-02-24] MEDS: FORMOTEROL FUMARATE 20 MCG/2 ML NEBU INHALATION SCH (13:00)
[2021-02-24] MEDS: BUDESONIDE 1 MG/2 ML NEBU INHALATION SCH (13:00)
--- NOTE | 2021-02-24 14:24 | P.DS ---
Providers Date of admission: 02/22/21 20:31 Attending physician: Isabell Huertas Consults: 02/23/21 11:28 Consult Physician Routine Consulting Provider: Shanna Langford Consult Reason/Comments: COPD Do you want consulting provider notified?: Yes Primary care physician: Rk [facility] Course: 71-year-old the male came in with complaints of palpitations generalized weakness and tiredness patient the has a pretty much of vague symptoms but appears severely fatigued. Patient does have history of COPD oxygen dependent. Patient had FEV1 of 1.71. Patient is comparing of cough and congestion patient was initially thought to have a pneumonia was started on antibiotics although CT did not show any infiltrate consistent with pneumonia although showed some bilateral pleural effusions mild and chronic. Patient does have wheezing on exam patient does have COPD with acute exacerbation patient does have mildly elevated liver enzymes which are chronic actually better than before. Patient was also in acute renal failure with creatinine of 1.46 baseline is around 1.2 patient present creatinine is around 1.27. Pro-calcitonin was ordered. Antibiotics were discontinued. PHYSICAL EXAMINATION: GENERAL: The patient is alert and oriented x3, not in any acute distress. Well developed, well nourished. HEENT: Pupils are round and equally reacting to light. EOMI. No scleral icterus. No conjunctival pallor. Normocephalic, atraumatic. No pharyngeal erythema. No thyromegaly. CARDIOVASCULAR: S1 and S2 present. No murmurs, rubs, or gallops. PULMONARY: Significantly improved wheezing on exam ABDOMEN: Soft, nontender, nondistended, normoactive bowel sounds. No palpable organomegaly. MUSCULOSKELETAL: No joint swelling or deformity. EXTREMITIES: No cyanosis, clubbing, or pedal edema. NEUROLOGICAL: Gross neurological examination did not reveal any focal deficits. SKIN: No rashes. Assessment and plan -COPD exacerbation: Improved -No clinical evidence of pneumonia, patient will be discharged on azithromycin for bronchitis. Pro-calcitonin Only 0.31 -Palpitations EKG showed PVCs without any atrial fibrillation -Coronary artery disease with stents in the past -Type 2 diabetes mellitus -Hyperlipidemia -Diabetic nephropathy -Chronic kidney disease from diabetic nephropathy patient has CKD stage II -Acute renal failure prerenal improved with the IV fluids. -Chronic venous stasis of bilateral lower extremities -Obstructive sleep apnea -Restless leg syndrome for which patient is on Mirapex will be continued -Benign prostatic hypertrophy for which patient is on Flomax Plan - Discharge Summary New Discharge Prescriptions: New predniSONE 10 mg PO DAILY #30 tab Azithromycin [Zithromax Tri-Laci (3 tabs)] 500 mg PO DAILY 3 Days #3 tab Continue Omeprazole 20 mg PO DAILY@0700 Tamsulosin [Flomax] 0.4 mg PO DAILY@0700 Aspirin EC [Ecotrin Low Dose] 81 mg PO DAILY@0700 Colchicine 0.6 mg PO DAILY@0700 Magnesium 250 mg PO DAILY@0700 Isosorbide Mononitrate [Isosorbide Mononitrate ER] 30 mg PO DAILY@0700 Nitroglycerin Sl Tabs [Nitrostat] 0.4 mg SUBLINGUAL Q5M PRN PRN Reason: Chest Pain predniSONE [Deltasone] 20 mg PO DAILY@0700 Insulin Glargine [Lantus Vial] 40 unit SQ HS@193 PRN PRN Reason: IF BLOOD SUGAR IS OVER 120 Fluticasone/Vilanterol [Breo Ellipta 100-25 Mcg Inhaler] 1 puff IN RT-HS@193 QUEtiapine [SEROquel] 25 mg PO BID@07,1929 Metoprolol Tartrate [Lopressor] 25 mg PO HS@1929 Ketorolac 0.5% Ophth Soln [Acular 0.5%] 1 drops LEFT EYE QID Cyclobenzaprine [Flexeril] 10 mg PO TID@0700,1200,1929 Febuxostat [Uloric] 40 mg PO DAILY@0700 Ergocalciferol [Vitamin D2 (1250 Mcg = 31391 Iu)] 1,250 mcg PO Q14D Ipratropium-Albuterol Nebulize [Duoneb 0.5 mg-3 mg/3 ml Soln] 3 ml INHALATION RT-QID Pramipexole [Mirapex] 1 mg PO HS@1930 Metoprolol Tartrate [Lopressor] 50 mg PO DAILY@0700 calcitrioL [Rocaltrol] 0.25 mcg PO Q14D Albuterol Inhaler [Ventolin Hfa Inhaler] 2 puff INHALATION RT-QID PRN PRN Reason: Shortness Of Breath Changed hydrALAZINE HCL 50 mg PO TID #0 Furosemide [Lasix] 20 mg PO BID@0700,1929 #0 Discontinued Spironolactone 25 mg PO DAILY@699 hydrALAZINE HCL [Apresoline] 100 mg PO DAILY@699 oxyCODONE-APAP 10-325MG [Percocet 10-325 mg] 1 tab PO Q6HR PRN PRN Reason: Pain Discharge Medication List Omeprazole 20 mg PO DAILY@69911/23/19 [History] Tamsulosin [Flomax] 0.4 mg PO DAILY@69911/23/19 [History] Aspirin EC [Ecotrin Low Dose] 81 mg PO DAILY@69912/09/19 [History] Colchicine 0.6 mg PO DAILY@69903/23/20 [History] Magnesium 250 mg PO DAILY@69903/23/20 [History] Isosorbide Mononitrate [Isosorbide Mononitrate ER] 30 mg PO DAILY@69906/15/20 [History] Nitroglycerin Sl Tabs [Nitrostat] 0.4 mg SUBLINGUAL Q5M PRN 06/15/20 [History] Ergocalciferol [Vitamin D2 (1250 Mcg = 30575 Iu)] 1,250 mcg PO Q14D 08/21/20 [History] Ipratropium-Albuterol Nebulize [Duoneb 0.5 mg-3 mg/3 ml Soln] 3 ml INHALATION RT-QID 08/21/20 [History] predniSONE [Deltasone] 20 mg PO DAILY@69908/21/20 [History] Insulin Glargine [Lantus Vial] 40 unit SQ HS@1929 PRN 12/01/20 [History] Fluticasone/Vilanterol [Breo Ellipta 100-25 Mcg Inhaler] 1 puff IN RT-HS@192901/08/21 [History] Albuterol Inhaler [Ventolin Hfa Inhaler] 2 puff INHALATION RT-QID PRN 02/22/21 [History] Cyclobenzaprine [Flexeril] 10 mg PO TID@07,1200,192902/22/21 [History] Febuxostat [Uloric] 40 mg PO DAILY@0702/22/21 [History] Ketorolac 0.5% Ophth Soln [Acular 0.5%] 1 drops LEFT EYE QID 02/22/21 [History] Metoprolol Tartrate [Lopressor] 25 mg PO HS@192902/22/21 [History] Metoprolol Tartrate [Lopressor] 50 mg PO DAILY@0700 02/22/21 [History] Pramipexole [Mirapex] 1 mg PO HS@192902/22/21 [History] QUEtiapine [SEROquel] 25 mg PO BID@699,192902/22/21 [History] calcitrioL [Rocaltrol] 0.25 mcg PO Q14D 02/22/21 [History] Azithromycin [Zithromax Tri-Laci (3 tabs)] 500 mg PO DAILY 3 Days #3 tab 02/24/21 [Rx] Furosemide [Lasix] 20 mg PO BID@699,1929 #0 02/24/21 [Rx] hydrALAZINE HCL 50 mg PO TID #0 02/24/21 [Rx] predniSONE 10 mg PO DAILY #30 tab 02/24/21 [Rx] Follow up Appointment(s)/Referral(s): Rk Keene III, MD [Primary Care Provider] - 3 Days Shanna Langford MD [STAFF PHYSICIAN] - 1 Week Discharge Disposition: HOME SELF-CARE
[2021-02-24 15:04] VITALS: BP 169/81; PULSE 90; RESP 17; TEMP 97.5
[2021-02-25] MEDS ORDERED: predniSONE 20 MG TAB PO SCH (09:00)
== END 2021-02-24 15:25 | disposition home or self-care (01) | DRG 191 ==
LOC: EC 15:23 → 4SSUR 20:31 → 1SOBS 21:53
PROVIDERS: ADMIT Hospitalist; ATTEND Hospitalist
DX: J44.1 Chronic obstructive pulmonary disease with (acute) exacerbation (principal); I13.0 Hypertensive heart and chronic kidney disease with heart failure and stage 1 through stage 4 chronic kidney disease, or unspecified chronic kidney disease; M35.1 Other overlap syndromes; J96.10 Chronic respiratory failure, unspecified whether with hypoxia or hypercapnia; N17.9 Acute kidney failure, unspecified; J40 Bronchitis, not specified as acute or chronic; E11.22 Type 2 diabetes mellitus with diabetic chronic kidney disease; E11.40 Type 2 diabetes mellitus with diabetic neuropathy, unspecified; E78.5 Hyperlipidemia, unspecified; J44.0 Chronic obstructive pulmonary disease with (acute) lower respiratory infection; G25.81 Restless legs syndrome; G47.33 Obstructive sleep apnea (adult) (pediatric); I95.9 Hypotension, unspecified; I87.8 Other specified disorders of veins; N18.2 Chronic kidney disease, stage 2 (mild); I25.10 Atherosclerotic heart disease of native coronary artery without angina pectoris; I50.9 Heart failure, unspecified; N40.0 Benign prostatic hyperplasia without lower urinary tract symptoms; K57.90 Diverticulosis of intestine, part unspecified, without perforation or abscess without bleeding; M19.90 Unspecified osteoarthritis, unspecified site; K21.9 Gastro-esophageal reflux disease without esophagitis; J30.2 Other seasonal allergic rhinitis; M10.9 Gout, unspecified; Z96.652 Presence of left artificial knee joint; Z96.611 Presence of right artificial shoulder joint; Z96.1 Presence of intraocular lens; Z98.42 Cataract extraction status, left eye; Z98.41 Cataract extraction status, right eye; Z95.5 Presence of coronary angioplasty implant and graft; Z87.891 Personal history of nicotine dependence; Z86.718 Personal history of other venous thrombosis and embolism; Z87.01 Personal history of pneumonia (recurrent); Z86.19 Personal history of other infectious and parasitic diseases; Z99.81 Dependence on supplemental oxygen; Z79.4 Long term (current) use of insulin; Z79.52 Long term (current) use of systemic steroids; Z79.82 Long term (current) use of aspirin; Z79.899 Other long term (current) drug therapy; Z86.73 Personal history of transient ischemic attack (TIA), and cerebral infarction without residual deficits; Z86.010 Personal history of colon polyps; Z82.3 Family history of stroke; Z82.49 Family history of ischemic heart disease and other diseases of the circulatory system
CPT/HCPCS: 36415; 71046; 71275; 80048; 80053; 83605; 83735; 83880; 84145; 84484; 85025; 85027; 85379; 85610; 85730; 87040; 87635; 93005; 94640; 96360; 96361; 99291

== ENCOUNTER 2021-03-02 08:32 | Inpatient (IN) | payer MEDICARE ==
[2021-03-02] MEDS ORDERED: ALBUTEROL HFA INHALER INHALATION STA (08:40)
--- NOTE | 2021-03-02 08:43 | ED ---
General Adult HPI - General Stated complaint: SLOAN Time Seen by Provider: 03/02/21 08:36 Source: patient, EMS, RN notes reviewed Mode of arrival: EMS Limitations: no limitations - History of Present Illness Initial comments: Patient is a pleasant 71-year-old male presenting to the emergency department with difficulty in breathing. Onset of symptoms was today. Patient recently had pneumonia. Patient had temperature of 100.2. Patient was going to have eye surgery done today however they didn't like how he is breathing. Patient did have his right eye dilated. Patient has mild cough. No leg pain. Patient has leg swelling which is chronic and improved from normal for him. Patient does have COPD. - Related Data Home Medications Medication Instructions Recorded Confirmed Omeprazole 20 mg PO DAILY@69911/23/19 03/02/21 Tamsulosin [Flomax] 0.4 mg PO DAILY@69911/23/19 03/02/21 Aspirin EC [Ecotrin Low Dose] 81 mg PO DAILY@69912/09/19 03/02/21 Colchicine 0.6 mg PO DAILY@69903/23/20 03/02/21 Magnesium 250 mg PO DAILY@69903/23/20 03/02/21 Isosorbide Mononitrate [Isosorbide 30 mg PO DAILY@69906/15/20 03/02/21 Mononitrate ER] Nitroglycerin Sl Tabs [Nitrostat] 0.4 mg SL Q5M PRN 06/15/20 03/02/21 Ergocalciferol [Vitamin D2 (1250 1,250 mcg PO Q14D 08/21/20 03/02/21 Mcg = 65625 Iu)] Ipratropium-Albuterol Nebulize 3 ml INHALATION RT-QID 08/21/20 03/02/21 [Duoneb 0.5 mg-3 mg/3 ml Soln] predniSONE [Deltasone] 20 mg PO DAILY@0708/21/20 03/02/21 Fluticasone/Vilanterol [Breo 1 puff INHALATION RT-HS@1930 01/08/21 03/02/21 Ellipta 100-25 Mcg Inhaler] Albuterol Inhaler [Ventolin Hfa 2 puff INHALATION RT-QID PRN 02/22/21 03/02/21 Inhaler] Cyclobenzaprine [Flexeril] 10 mg PO TID@0700,1200,1930 02/22/21 03/02/21 Febuxostat [Uloric] 40 mg PO DAILY@0700 02/22/21 03/02/21 Ketorolac 0.5% Ophth Soln [Acular 1 drop LEFT EYE QID 02/22/21 03/02/21 0.5%] Metoprolol Tartrate [Lopressor] 25 mg PO HS@1930 02/22/21 03/02/21 Metoprolol Tartrate [Lopressor] 50 mg PO DAILY@0700 02/22/21 03/02/21 Pramipexole [Mirapex] 1 mg PO HS@1930 02/22/21 03/02/21 QUEtiapine [SEROquel] 25 mg PO BID@0700,0 02/22/21 03/02/21 calcitrioL [Rocaltrol] 0.5 mcg PO TU 02/22/21 03/02/21 Insulin Glargine,Hum.rec.anlog 40 unit SQ HS@1929 PRN 03/02/21 03/02/21 [Lantus Solostar Pen] predniSONE See Taper PO DAILY 03/02/21 03/02/21 Previous Rx's Medication Instructions Recorded Furosemide [Lasix] 20 mg PO BID@0700,1929 #0 02/24/21 hydrALAZINE HCL 50 mg PO TID #0 02/24/21 Allergies Allergy/AdvReac Type Severity Reaction Status Date / Time acetaminophen [From Tylenol] AdvReac kidney/liver Verified 03/02/21 09:17 issues Review of Systems ROS Statement: Those systems with pertinent positive or pertinent negative responses have been documented in the HPI. ROS Other: All systems not noted in ROS Statement are negative. Constitutional: Reports: as per HPI, fever Eyes: Denies: eye pain ENT: Denies: ear pain Respiratory: Reports: as per HPI, cough Cardiovascular: Denies: chest pain Endocrine: Denies: fatigue Gastrointestinal: Denies: abdominal pain Genitourinary: Denies: dysuria Musculoskeletal: Denies: back pain Skin: Denies: rash Neurological: Denies: weakness Past Medical History Past Medical History: Coronary Artery Disease (CAD), Chest Pain / Angina, Heart Failure, COPD, CVA/TIA, Diabetes Mellitus, Deep Vein Thrombosis (DVT), GERD/Reflux, Hyperlipidemia, Hypertension, Osteoarthritis (OA), Pneumonia, Pros rosas Disorder, Renal Disease, Respiratory Disorder, Sleep Apnea/CPAP/BIPAP Additional Past Medical History / Comment(s): IDDM type II, neuropathy hands/feet, hx severe sepsis secondary to discitis/osteomylitis, urinary retention with granados during sepsis, Hx DVT R arm/sepsis d/t cellulitis in legs, venous insufficiency, swelling in legs and feet., spondylolsis, cervical, low back and bilateral knee pain, DDD, gout, chronic respiratory failure, CALLI (does not use machine)., nonsustained vtach, TIAs, small vessel disease, BPH, diverticular disease, colon polyps, sinus problems, seasonal allergies, Mixed Connective Tissue Disease .,hallucinations/confusion with sepsis/fever., Pt was hospitalized at [facility] in August for dyspnea, chf & renal failure. History of Any Multi-Drug Resistant Organisms: None Reported Past Surgical History: Back Surgery, Heart Catheterization With Stent, Joint Replacement, Orthopedic Surgery Additional Past Surgical History / Comment(s): Bilateral knee arthroscopies, t otal L knee arthroplasty, R total shoulder arthroplasty, L hand injury with repair, low back surgery, PCI with 3 stents, colonoscopies/polypectomies, cervical/lumbar epidural injections, cataract removals/lens implants. Past Anesthesia/Blood Transfusion Reactions: No Reported Reaction Additional Past Anesthesia/Blood Transfusion Reaction / Comment(s): STATES "HAD A HARD TIME WITH BREATHING POST OP" Date of Last Stent Placement:: 2009 Past Psychological History: No Psychological Hx Reported Smoking Status: Former smoker Past Alcohol Use History: None Reported Past Drug Use History: Marijuana - Past Family History Father Family Medical History: CVA/TIA, Hyperlipidemia, Hypertension Additional Family Medical History / Comment(s): Father of a CVA at the age of 55 yrs. Mother Family Medical History: No Reported History Additional Family Medical History / Comment(s): Mother lived to be 93 yrs old. General Exam Limitations: no limitations General appearance: alert, in no apparent distress Head exam: Present: normocephalic Eye exam: Present: other (Right eye dilated) Neck exam: Present: normal inspection Respiratory exam: Present: wheezes, decreased breath sounds Cardiovascular Exam: Present: regular rate, normal rhythm GI/Abdominal exam: Present: soft. Absent: tenderness Extremities exam: Present: normal inspection. Absent: pedal edema, calf tenderness Neurological exam: Present: alert Psychiatric exam: Present: normal affect, normal mood Skin exam: Present: normal color Course Vital Signs 03/02/21 03/02/21 03/02/21 08:38 09:41 10:24 Temperature 100.3 F H Pulse Rate 75 78 84 Respiratory 25 H 27 H Rate Blood Pressure 104/65 104/72 103/71 O2 Sat by Pulse 91 L 96 93 L Oximetry 03/02/21 10:25 Temperature Pulse Rate Respiratory 28 H Rate Blood Pressure O2 Sat by Pulse Oximetry EKG Findings - EKG Comments: EKG Findings:: Normal sinus rhythm with a rate of 76. IN 154. QRS 104. QT 418. QTC 470. Left axis. Septal Q waves. No acute ST change. Medical Decision Making - Medical Decision Making Patient reevaluated. Patient and family updated on results and plan. Case was discussed with Dr. guevara, who will admit covering for Dr. Keene. - Lab Data Result diagrams: 03/02/21 08:59 03/02/21 08:59 Lab Results 03/02/21 03/02/21 03/02/21 Range/Units 08:59 08:59 08:59 WBC 10.0 (3.8-10.6) k/uL RBC 3.95 L (4.30-5.90) m/uL Hgb 13.0 (13.0-17.5) gm/dL Hct 39.8 (39.0-53.0) % MCV 100.9 H (80.0-100.0) fL MCH 33.0 (25.0-35.0) pg MCHC 32.7 (31.0-37.0) g/dL RDW 15.7 H (11.5-15.5) % Plt Count 150 (150-450) k/uL MPV 9.7 Neutrophils % 78 % Lymphocytes % 11 % Monocytes % 7 % Eosinophils % 2 % Basophils % 1 % Neutrophils # 7.8 H (1.3-7.7) k/uL Lymphocytes # 1.1 (1.0-4.8) k/uL Monocytes # 0.7 (0-1.0) k/uL Eosinophils # 0.2 (0-0.7) k/uL Basophils # 0.1 (0-0.2) k/uL Macrocytosis Slight Sodium 134 L (137-145) mmol/L Potassium 4.2 (3.5-5.1) mmol/L Chloride 101 (98-107) mmol/L Carbon Dioxide 27 (22-30) mmol/L Anion Gap 6 mmol/L BUN 24 H (9-20) mg/dL Creatinine 1.12 (0.66-1.25) mg/dL Est GFR (CKD-EPI)AfAm 76 (>60 ml/min/1.73 sqM) Est GFR (CKD-EPI)NonAf 66 (>60 ml/min/1.73 sqM) Glucose 124 H (74-99) mg/dL Plasma Lactic Acid Teo (0.7-2.0) mmol/L Calcium 8.4 (8.4-10.2) mg/dL Total Bilirubin 1.0 (0.2-1.3) mg/dL AST 87 H (17-59) U/L ALT 147 H (4-49) U/L Alkaline Phosphatase 110 (38-126) U/L Troponin I 0.013 (0.000-0.034) ng/mL NT-Pro-B Natriuret Pep pg/mL Total Protein 6.0 L (6.3-8.2) g/dL Albumin 3.2 L (3.5-5.0) g/dL Urine Color Urine Appearance (Clear) Urine pH (5.0-8.0) Ur Specific Griffin (1.001-1.035) Urine Protein (Negative) Urine Glucose (UA) (Negative) Urine Ketones (Negative) Urine Blood (Negative) Urine Nitrite (Negative) Urine Bilirubin (Negative) Urine Urobilinogen (<2.0) mg/dL Ur Leukocyte Esterase (Negative) Urine RBC (0-5) /hpf Urine WBC (0-5) /hpf Ur Squamous Epith Cells (0-4) /hpf Urine Mucus (None) /hpf Coronavirus (PCR) (Not Detectd) 03/02/21 03/02/21 03/02/21 Range/Units 08:59 09:35 09:35 WBC (3.8-10.6) k/uL RBC (4.30-5.90) m/uL Hgb (13.0-17.5) gm/dL Hct (39.0-53.0) % MCV (80.0-100.0) fL MCH (25.0-35.0) pg MCHC (31.0-37.0) g/dL RDW (11.5-15.5) % Plt Count (150-450) k/uL MPV Neutrophils % % Lymphocytes % % Monocytes % % Eosinophils % % Basophils % % Neutrophils # (1.3-7.7) k/uL Lymphocytes # (1.0-4.8) k/uL Monocytes # (0-1.0) k/uL Eosinophils # (0-0.7) k/uL Basophils # (0-0.2) k/uL Macrocytosis Sodium (137-145) mmol/L Potassium (3.5-5.1) mmol/L Chloride (98-107) mmol/L Carbon Dioxide (22-30) mmol/L Anion Gap mmol/L BUN (9-20) mg/dL Creatinine (0.66-1.25) mg/dL Est GFR (CKD-EPI)AfAm (>60 ml/min/1.73 sqM) Est GFR (CKD-EPI)NonAf (>60 ml/min/1.73 sqM) Glucose (74-99) mg/dL Plasma Lactic Acid Teo 1.2 (0.7-2.0) mmol/L Calcium (8.4-10.2) mg/dL Total Bilirubin (0.2-1.3) mg/dL AST (17-59) U/L ALT (4-49) U/L Alkaline Phosphatase (38-126) U/L Troponin I (0.000-0.034) ng/mL NT-Pro-B Natriuret Pep 187 pg/mL Total Protein (6.3-8.2) g/dL Albumin (3.5-5.0) g/dL Urine Color Urine Appearance (Clear) Urine pH (5.0-8.0) Ur Specific Griffin (1.001-1.035) Urine Protein (Negative) Urine Glucose (UA) (Negative) Urine Ketones (Negative) Urine Blood (Negative) Urine Nitrite (Negative) Urine Bilirubin (Negative) Urine Urobilinogen (<2.0) mg/dL Ur Leukocyte Esterase (Negative) Urine RBC (0-5) /hpf Urine WBC (0-5) /hpf Ur Squamous Epith Cells (0-4) /hpf Urine Mucus (None) /hpf Coronavirus (PCR) Not Detected (Not Detectd) 03/02/21 Range/Units 09:58 WBC (3.8-10.6) k/uL RBC (4.30-5.90) m/uL Hgb (13.0-17.5) gm/dL Hct (39.0-53.0) % MCV (80.0-100.0) fL MCH (25.0-35.0) pg MCHC (31.0-37.0) g/dL RDW (11.5-15.5) % Plt Count (150-450) k/uL MPV Neutrophils % % Lymphocytes % % Monocytes % % Eosinophils % % Basophils % % Neutrophils # (1.3-7.7) k/uL Lymphocytes # (1.0-4.8) k/uL Monocytes # (0-1.0) k/uL Eosinophils # (0-0.7) k/uL Basophils # (0-0.2) k/uL Macrocytosis Sodium (137-145) mmol/L Potassium (3.5-5.1) mmol/L Chloride (98-107) mmol/L Carbon Dioxide (22-30) mmol/L Anion Gap mmol/L BUN (9-20) mg/dL Creatinine (0.66-1.25) mg/dL Est GFR (CKD-EPI)AfAm (>60 ml/min/1.73 sqM) Est GFR (CKD-EPI)NonAf (>60 ml/min/1.73 sqM) Glucose (74-99) mg/dL Plasma Lactic Acid Teo (0.7-2.0) mmol/L Calcium (8.4-10.2) mg/dL Total Bilirubin (0.2-1.3) mg/dL AST (17-59) U/L ALT (4-49) U/L Alkaline Phosphatase (38-126) U/L Troponin I (0.000-0.034) ng/mL NT-Pro-B Natriuret Pep pg/mL Total Protein (6.3-8.2) g/dL Albumin (3.5-5.0) g/dL Urine Color Yellow Urine Appearance Clear (Clear) Urine pH 5.5 (5.0-8.0) Ur Specific Griffin 1.018 (1.001-1.035) Urine Protein Trace H (Negative) Urine Glucose (UA) Negative (Negative) Urine Ketones Negative (Negative) Urine Blood Negative (Negative) Urine Nitrite Negative (Negative) Urine Bilirubin Negative (Negative) Urine Urobilinogen <2.0 (<2.0) mg/dL Ur Leukocyte Esterase Trace H (Negative) Urine RBC 1 (0-5) /hpf Urine WBC 1 (0-5) /hpf Ur Squamous Epith Cells 2 (0-4) /hpf Urine Mucus Rare H (None) /hpf Coronavirus (PCR) (Not Detectd) - Radiology Data Radiology results: image reviewed (Chest x-ray shows mild bibasilar infiltrates and left upper lobe infiltrate.) Disposition Clinical Impression: Pneumonia, COPD (chronic obstructive pulmonary disease) Disposition: ADMITTED IP TO THIS HOSP Is patient prescribed a controlled substance at d/c from ED?: No Referrals: Rk Keene III, MD [Primary Care Provider] - 1-2 days Decision Time: 10:38
[2021-03-02 09:20] LABS: Albumin 3.2 g/dL (3.5-5.0); Calcium 8.4 mg/dL (8.4-10.2)
[2021-03-02 09:21] LABS: Basophils # (A) 0.1 k/uL (0-0.2); Basophils % (A) 1 %; Eosinophils # (A) 0.2 k/uL (0-0.7); Eosinophils % (A) 2 %; HCT 39.8 % (39.0-53.0); Lymphocytes # (A) 1.1 k/uL (1.0-4.8); Lymphocytes % (A) 11 %; MCHC 32.7 g/dL (31.0-37.0); MCV 100.9 fL (80.0-100.0); Macrocytosis Slight; Mean Platelet Volume 9.7; Monocytes # (A) 0.7 k/uL (0-1.0); Monocytes % (A) 7 %; Neutrophils # (A) 7.8 k/uL (1.3-7.7); Neutrophils % (A) 78 %; Platelet Count 150 k/uL (150-450); RBC 3.95 m/uL (4.30-5.90); RDW 15.7 % (11.5-15.5)
[2021-03-02 09:35] LABS: Potassium 4.2 mmol/L (3.5-5.1)
--- NOTE | 2021-03-02 09:50 | XR ---
EXAMINATION TYPE: XR chest 2V DATE OF EXAM: 03/02/2021 COMPARISON: 02/23/2021 INDICATION: Difficulty breathing, short of breath TECHNIQUE: Frontal and lateral views of the chest are obtained. FINDINGS: The heart size is normal. The pulmonary vasculature is normal. Some mild infiltrates in the left mid and lower peripheral lung kimball. Some minimal infiltrate at th e right base.. It may be some thickening at the left apex, mild left apical filtrate. IMPRESSION: 1. Mild bibasilar infiltrates and left upper lobe infiltrate. Correlate for atelectasis and pneumonia . Consider atypical pneumonia.
[2021-03-02 10:11] LABS: Appearance,Urine Clear (Clear); Bilirubin,Urine Negative (Negative); Blood,Urine Negative (Negative); Color,Urine Yellow; Glucose,Urine (UA) Negative (Negative); Ketones,Urine Negative (Negative); Leukocyte Esterase,Urine Trace (Negative); Mucus,Urine Rare /hpf; Nitrite,Urine Negative (Negative); PH, Urine 5.5 (5.0-8.0); Protein,Urine Trace (Negative); RBC,Urine 1 /hpf (0-5); Specific Gravity,Urine 1.018 (1.001-1.035); Squamous Epithelial Cell,Urine 2 /hpf (0-4); Urobilinogen,Urine <2.0 mg/dL (<2.0); WBC,Urine 1 /hpf (0-5)
[2021-03-02] MEDS ORDERED: IPRATROPIUM-ALBUTEROL 3 ML NEB INHALATION PRN (10:39)
[2021-03-02] MEDS ORDERED: PIPERACILLIN-TAZOBACTAM 3.375 GM in SODIUM CHLORIDE 0.9% 100 ML IVPB STA (10:39)
[2021-03-02] MEDS ORDERED: PNEUMONIA PROTOCOL UTILIZED 1 EACH MISC PO PRN (10:39)
[2021-03-02] MEDS ORDERED: methylPREDNISolone SOD SUCCI 125 MG/2 ML VIAL IV STA (10:39)
[2021-03-02] MEDS ORDERED: AZITHROMYCIN 500 MG in SODIUM CHLORIDE 0.9% 250 ML IVPB STA (10:39)
[2021-03-02] MEDS: SODIUM CHLORIDE 0.9% 1,000 ML IV SCH ×2 (11:16→23:00)
[2021-03-02 11:25] LABS: INR 0.9 (<1.2); Partial Thromboplastin Time 21.1 sec (22.0-30.0); Prothrombin Time 10.1 sec (9.0-12.0)
[2021-03-02] MEDS: IPRATROPIUM-ALBUTEROL 3 ML NEB INHALATION SCH ×3 (12:06→19:14)
[2021-03-02] MEDS: methylPREDNISolone SOD SUCCI 125 MG/2 ML VIAL IV SCH ×3 (12:08→23:46)
[2021-03-02] MEDS ORDERED: KETOROLAC 15 MG/ML 1 ML VIAL IVP PRN (13:31)
--- NOTE | 2021-03-02 16:55 | P.CNPUL ---
History of Present Illness Consult date: 03/02/21 Requesting physician: Mathew Mustafa Reason for consult: dyspnea Chief complaint: Dyspnea History of present illness: This is 71-year-old white male patient with multiple chronic medical conditions including history of diabetes mellitus type 2, hypertension, hyperlipidemia, COPD on home oxygen since his recent admission, his baseline FEV1 is 58% of predicted or 1.[address] Torres in the pulmonary office, he is maintaining on combination of Breo-Ellipta, DuoNeb, and albuterol HFA. Patient had a recent hospitalization for acute exacerbation of COPD. Patient was discharged home on 02/24/2021 on a prednisone taper, and a Z-Laci. Patient was brought back to the emergency department with the daily history of worsening shortness of breath, and cough on 03/02/2021. Patient tested negative for COVID-19, chest x-ray showed mild bibasilar infiltrates and left upper lobe infiltrate possibly related to atelectasis, possibility of atypical pneumonia is possible but less likely. His blood work showed normal white count of 10.0, hemoglobin of 13, platelet count is 150, sodium is 134, the rest of electrolytes and renal profile were unremarkable BUN is 24 creatinine is 1.12, lactic acid was 1.2, AST was 87, ALT was 147, troponin was negative at 0.013, proBNP was 187, urinalysis showed no evidence of urinary tract infection. Patient was also tested for influenza A and B and was found to be negative. He is currently on 3 L of oxygen and his pulse ox is 96%, patient has been afebrile, he was started on empiric antibiotics in the form of azithromycin and Rocephin, IV steroids with Solu-Medrol 60 mg every 6 hours, and nebulized bronchodilators. He was given IV fluids at a rate of 100 ML per hour. Review of Systems All systems: negative Constitutional: Denies chills, Denies fever Eyes: denies blurred vision, denies pain Ears, nose, mouth and throat: Denies headache, Denies sore throat Cardiovascular: Denies chest pain, Denies shortness of breath Respiratory: Reports dyspnea, Reports home oxygen, Reports respiratory infections, Reports wheezing, Denies cough Gastrointestinal: Denies abdominal pain, Denies diarrhea, Denies nausea, Denies vomiting Musculoskeletal: Denies myalgias Integumentary: Denies pruritus, Denies rash Neurological: Denies numbness, Denies weakness Psychiatric: Denies anxiety, Denies depression Endocrine: Denies fatigue, Denies weight change Past Medical History Past Medical History: Coronary Artery Disease (CAD), Chest Pain / Angina, Heart Failure, COPD, CVA/TIA, Diabetes Mellitus, Deep Vein Thrombosis (DVT), GERD/Reflux, Hyperlipidemia, Hypertension, Osteoarthritis (OA), Pneumonia, Prostate Disorder, Renal Disease, Respiratory Disorder, Rheumatoid Arthritis (RA), Sleep Apnea/CPAP/BIPAP Additional Past Medical History / Comment(s): Pt recently admitted to [facility] on 02/22/21 with exacerbation COPD/bronchitis/hyponatremia/acute renal failure. Other HX: IDDM type II, neuropathy hands/feet, R eye vitreous hemorrhage/detachment, hx severe sepsis secondary to discitis/osteomylitis, urinary retention with granados during sepsis, Hx DVT R arm/sepsis d/t cellulitis in legs, chronic venous stasis/venous insufficiency bilateral legs, swelling in legs and feet., spondylolsis, cervical, low back and bilateral knee pain, DDD, gout, RLS, chronic respiratory failure, home oxygen he states he only uses when ill, CALLI (occasionally wears CPap but does not tolerate it well), nonsustained vtach, TIAs, small vessel disease, BPH, diverticular disease, colon polyps, sinus problems, seasonal allergies, mixed connective tissue disease, hallucinations/confusion with sepsis/fever. History of Any Multi-Drug Resistant Organisms: None Reported Past Surgical History: Back Surgery, Heart Catheterization With Stent, Joint Replacement, Orthopedic Surgery Additional Past Surgical History / Comment(s): Bilateral knee arthroscopies, total L knee arthroplasty, R total shoulder arthroplasty, L hand injury with repair, low back surgery, PCI with 3 stents, colonoscopies/polypectomies, cervical/lumbar epidural injections, cataract removals/lens implants. Past Anesthesia/Blood Transfusion Reactions: No Reported Reaction Additional Past Anesthesia/Blood Transfusion Reaction / Comment(s): STATES "HAD A HARD TIME WITH BREATHING POST OP" Date of Last Stent Placement:: 2009 Smoking Status: Former smoker - Past Family History Father Family Medical History: CVA/TIA, Hyperlipidemia, Hypertension Additional Family Medical History / Comment(s): Father of a CVA at the age of 55 yrs. Mother Family Medical History: No Reported History Additional Family Medical History / Comment(s): Mother lived to be 93 yrs old. Medications and Allergies Home Medications Medication Instructions Recorded Confirmed Type Omeprazole 20 mg PO DAILY@69911/23/19 03/02/21 History Tamsulosin [Flomax] 0.4 mg PO DAILY@69911/23/19 03/02/21 History Aspirin EC [Ecotrin Low Dose] 81 mg PO DAILY@69912/09/19 03/02/21 History Colchicine 0.6 mg PO DAILY@69903/23/20 03/02/21 History Magnesium 250 mg PO DAILY@69903/23/20 03/02/21 History Isosorbide Mononitrate [Isosorbide 30 mg PO DAILY@69906/15/20 03/02/21 History Mononitrate ER] Nitroglycerin Sl Tabs [Nitrostat] 0.4 mg SL Q5M PRN 06/15/20 03/02/21 History Ergocalciferol [Vitamin D2 (1250 1,250 mcg PO Q14D 08/21/20 03/02/21 History Mcg = 46016 Iu)] Ipratropium-Albuterol Nebulize 3 ml INHALATION RT-QID 08/21/20 03/02/21 History [Duoneb 0.5 mg-3 mg/3 ml Soln] predniSONE [Deltasone] 20 mg PO DAILY@69908/21/20 03/02/21 History Fluticasone/Vilanterol [Breo 1 puff INHALATION RT-HS@192901/08/21 03/02/21 History Ellipta 100-25 Mcg Inhaler] Albuterol Inhaler [Ventolin Hfa 2 puff INHALATION RT-QID PRN 02/22/21 03/02/21 History Inhaler] Cyclobenzaprine [Flexeril] 10 mg PO TID@0700,1200,192902/22/21 03/02/21 History Febuxostat [Uloric] 40 mg PO DAILY@0700 02/22/21 03/02/21 History Ketorolac 0.5% Ophth Soln [Acular 1 drop LEFT EYE QID 02/22/21 03/02/21 History 0.5%] Metoprolol Tartrate [Lopressor] 25 mg PO HS@192902/22/21 03/02/21 History Metoprolol Tartrate [Lopressor] 50 mg PO DAILY@0700 02/22/21 03/02/21 History Pramipexole [Mirapex] 1 mg PO HS@1930 02/22/21 03/02/21 History QUEtiapine [SEROquel] 25 mg PO BID@0700,1930 02/22/21 03/02/21 History calcitrioL [Rocaltrol] 0.5 mcg PO TU 02/22/21 03/02/21 History Furosemide [Lasix] 20 mg PO BID@0700,1929 #0 02/24/21 03/02/21 Rx hydrALAZINE HCL 50 mg PO TID #0 02/24/21 03/02/21 Rx Insulin Glargine,Hum.rec.anlog 40 unit SQ HS@193 PRN 03/02/21 03/02/21 History [Lantus Solostar Pen] predniSONE See Taper PO DAILY 03/02/21 03/02/21 History Allergies Allergy/AdvReac Type Severity Reaction Status Date / Time acetaminophen [From Tylenol] AdvReac kidney/liver Verified 03/02/21 09:17 issues Physical Exam Vitals: Vital Signs Temp Pulse Resp BP Pulse Ox 03/02/21 15:16 85 16 03/02/21 15:08 84 16 03/02/21 15:00 78 20 124/61 90 L 03/02/21 14:00 83 22 130/80 96 03/02/21 12:00 79 22 120/75 98 03/02/21 10:25 28 H 03/02/21 10:24 84 27 H 103/71 93 L 03/02/21 09:41 78 104/72 96 03/02/21 08:38 99.0 F 75 25 H 104/65 91 L Intake and Output 03/02/21 03/02/21 03/02/21 06:59 14:59 22:59 Other: Weight 99.79 kg 99.79 kg GENERAL EXAM: Alert, very pleasant, 71-year-old white male, on 2 L of oxygen with a pulse ox of 93-96% comfortable in no apparent distress. HEAD: Normocephalic/atraumatic. EYES: Normal reaction of pupils, equal size. Conjunctiva pink, sclera white. NOSE: Clear with pink turbinates. THROAT: No erythema or exudates. NECK: No masses, no JVD, no thyroid enlargement, no adenopathy. CHEST: No chest wall deformity. Symmetrical expansion. LUNGS: Equal air entry with diffuse rhonchi CVS: Regular rate and rhythm, normal S1 and S2, no gallops, no murmurs, no rubs ABDOMEN: Soft, nontender. No hepatosplenomegaly, normal bowel sounds, no guarding or rigidity. EXTREMITIES: No clubbing, mild 1+ pretibial and pedal edema, no cyanosis, 2+ pulses and upper and lower extremities. MUSCULOSKELETAL: Muscle strength and tone normal. SPINE: No scoliosis or deformity SKIN: No rashes CENTRAL NERVOUS SYSTEM: Alert and oriented -3. No focal deficits, tone is normal in all 4 extremities. PSYCHIATRIC: Alert and oriented -3. Appropriate affect. Intact judgment and insight. Results - Laboratory Findings CBC and BMP: 03/02/21 08:59 03/02/21 08:59 PT/INR, D-dimer PT 10.1 sec (9.0-12.0) 03/02/21 10:31 INR 0.9 (<1.2) 03/02/21 10:31 D-Dimer 1.38 mg/L FEU (<0.60) H 03/02/21 10:31 Abnormal lab findings: Abnormal Labs 03/02/21 03/02/21 03/02/21 08:59 08:59 09:58 RBC 3.95 L MCV 100.9 H RDW 15.7 H Neutrophils # 7.8 H APTT D-Dimer Sodium 134 L BUN 24 H Glucose 124 H AST 87 H ALT 147 H Total Protein 6.0 L Albumin 3.2 L Urine Protein Trace H Ur Leukocyte Esterase Trace H Urine Mucus Rare H 03/02/21 10:31 RBC MCV RDW Neutrophils # APTT 21.1 L D-Dimer 1.38 H Sodium BUN Glucose AST ALT Total Protein Albumin Urine Protein Ur Leukocyte Esterase Urine Mucus - Diagnostic Findings Chest x-ray: report reviewed, image reviewed Assessment and Plan Plan: Assessment: #1. Acute exacerbation of COPD, possibility of atypical pneumonia is less likely but not entirely ruled out, patient is covered with azithromycin and Zosyn. COVID-19 PCR was negative, influenza A and B PCR were negative #2. Recent hospitalization for acute exacerbation of COPD, discharged home on 02/24/2021 #3. History of advanced COPD with FEV1 of 1.71 L, most recently on home oxygen #4. Diabetes mellitus type 2 #5. Hypertension #6. Hyperlipidemia #7. History of coronary artery disease with previous stenting #8. History of CHF, unspecified #9. History of CVA/TIA #10. Osteoarthritis #11. Chronic kidney disease, unspecified #12. Sleep apnea does not wear CPAP #13. Chronic venous insufficiency #14. 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 Marijuana use Plan: Continue current medical treatment Continue antibiotics send the pro-calcitonin level Patient will be treated for acute exacerbation of COPD with tracheobronchitis Possibility of pneumonia is less likely but not entirely ruled out Continue nebulized bronchodilators Continue steroids We'll continue to follow his clinical course I performed a history & physical examination of the patient and discussed their management with my nurse practitioner, Skylar Mckoy. I reviewed the nurse practitioner's note and agree with the documented findings and plan of care. Lung sounds are positive for diffuse wheezes throughout the lung k[place]. The findings and the impression was discussed with the patient. I attest to the documentation by the nurse practitioner. Time with Patient: Greater than 30
[2021-03-02] MEDS: PIPERACILLIN-TAZOBACTAM 3.375 GM in SODIUM CHLORIDE 0.9% 100 ML IVPB SCH ×2 (17:15→23:48)
[2021-03-02] MEDS ORDERED: INSULIN DETEMIR (LEVEMIR) 100 UNIT/ML SYR SQ PRN (18:24)
--- NOTE | 2021-03-02 18:29 | P.HPIM ---
History of Present Illness H&P Date: 03/02/21 Chief Complaint: Difficulty breathing 71-year-old male, history of CAD, CHF, COPD, CVA/TIA, diabetes mellitus, DVT, hypertension, hyperlipidemia, sleep apnea and chronic kidney disease presenting to the emergency department with difficulty in breathing. Onset of symptoms was today. Patient recently had pneumonia. Patient had temperature of 100.2. Patient was going to have eye surgery done today however they didn't like how he is breathing. Patient did have his right eye dilated. Patient has mild cough. No leg pain. Patient has leg swelling which is chronic and improved from normal for him. His blood work showed normal white count of 10.0, hemoglobin of 13, platelet count is 150, sodium is 134, the rest of electrolytes and renal profile were unremarkable BUN is 24 creatinine is 1.12, lactic acid was 1.2, AST was 87, ALT was 147, troponin was negative at 0.013, proBNP was 187, urinalysis showed no evidence of urinary tract infection. Patient was also tested for influenza A and B and was found to be negative. He is currently on 3 L of oxygen and his pu lse ox is 96%, patient has been afebrile, he was started on empiric antibiotics in the form of azithromycin and Rocephin, IV steroids with Solu-Medrol 60 mg every 6 hours, and nebulized bronchodilators. He was given IV fluids at a rate of 100 ML per hour. Review of Systems REVIEW OF SYSTEMS: CONSTITUTIONAL: No fever, no malaise, no fatigue. HEENT: No recent visual problems or hearing problems. Denied any sore throat. CARDIOVASCULAR: No chest pain, orthopnea, PND, no palpitations, no syncope. PULMONARY: shortness of breath, no cough, no hemoptysis. GASTROINTESTINAL: No diarrhea, no nausea, no vomiting, no abdominal pain. NEUROLOGICAL: No headaches, no weakness, no numbness. HEMATOLOGICAL: Denies any bleeding or petechiae. GENITOURINARY: Denies any burning micturition, frequency, or urgency. MUSCULOSKELETAL/RHEUMATOLOGICAL: Denies any joint pain, swelling, or any muscle pain. ENDOCRINE: Denies any polyuria or polydipsia. The rest of the 14-point review of systems is negative. Past Medical History Past Medical History: Coronary Artery Disease (CAD), Chest Pain / Angina, Heart Failure, COPD, CVA/TIA, Diabetes Mellitus, Deep Vein Thrombosis (DVT), GERD/Reflux, Hyperlipidemia, Hypertension, Osteoarthritis (OA), Pneumonia, Prostate Disorder, Renal Disease, Respiratory Disorder, Sleep Apnea/CPAP/BIPAP Additional Past Medical History / Comment(s): IDDM type II, neuropathy hands/feet, hx severe sepsis secondary to discitis/osteomylitis, urinary retention with granados during sepsis, Hx DVT R arm/sepsis d/t cellulitis in legs, venous insufficiency, swelling in legs and feet., spondylolsis, cervical, low back and bilateral knee pain, DDD, gout, chronic respiratory failure, CALLI (does not use machine)., nonsustained vtach, TIAs, small vessel disease, BPH, diverticular disease, colon polyps, sinus problems, seasonal allergies, Mixed Connective Tissue Disease .,hallucinations/confusion with sepsis/fever., Pt was hospitalized at [facility] in August for dyspnea, chf & renal failure. History of Any Multi-Drug Resistant Organisms: None Reported Past Surgical History: Back Surgery, Heart Catheterization With Stent, Joint Replacement, Orthopedic Surgery Additional Past Surgical History / Comment(s): Bilateral knee arthroscopies, total L knee arthroplasty, R total shoulder arthroplasty, L hand injury with repair, low back surgery, PCI with 3 stents, colonoscopies/polypectomies, cervical/lumbar epidural injections, cataract removals/lens implants. Past Anesthesia/Blood Transfusion Reactions: No Reported Reaction Additional Past Anesthesia/Blood Transfusion Reaction / Comment(s): STATES "HAD A HARD TIME WITH BREATHING POST OP" Date of Last Stent Placement:: 2009 Past Psychological History: No Psychological Hx Reported Smoking Status: Former smoker Past Alcohol Use History: None Reported Past Drug Use History: Marijuana - Past Family History Father Family Medical History: CVA/TIA, Hyperlipidemia, Hypertension Additional Family Medical History / Comment(s): Father of a CVA at the age of 55 yrs. Mother Family Medical History: No Reported History Additional Family Medical History / Comment(s): Mother lived to be 93 yrs old. Medications and Allergies Home Medications Medication Instructions Recorded Confirmed Type Omeprazole 20 mg PO DAILY@69911/23/19 03/02/21 History Tamsulosin [Flomax] 0.4 mg PO DAILY@69911/23/19 03/02/21 History Aspirin EC [Ecotrin Low Dose] 81 mg PO DAILY@69912/09/1921 History Colchicine 0.6 mg PO DAILY@0703/23/20 03/02/21 History Magnesium 250 mg PO DAILY@0703/23/20 03/02/21 History Isosorbide Mononitrate [Isosorbide 30 mg PO DAILY@0700 06/15/20 03/02/21 History Mononitrate ER] Nitroglycerin Sl Tabs [Nitrostat] 0.4 mg SL Q5M PRN 06/15/20 03/02/21 History Ergocalciferol [Vitamin D2 (1250 1,250 mcg PO Q14D 08/21/20 03/02/21 History Mcg = 31282 Iu)] Ipratropium-Albuterol Nebulize 3 ml INHALATION RT-QID 08/21/20 03/02/21 History [Duoneb 0.5 mg-3 mg/3 ml Soln] predniSONE [Deltasone] 20 mg PO DAILY@0708/21/20 03/02/21 History Fluticasone/Vilanterol [Breo 1 puff INHALATION RT-HS@192901/08/21 03/02/21 Hist ory Ellipta 100-25 Mcg Inhaler] Albuterol Inhaler [Ventolin Hfa 2 puff INHALATION RT-QID PRN 02/22/21 03/02/21 History Inhaler] Cyclobenzaprine [Flexeril] 10 mg PO TID@0700,1200,192902/22/21 03/02/21 History Febuxostat [Uloric] 40 mg PO DAILY@0702/22/21 03/02/21 History Ketorolac 0.5% Ophth Soln [Acular 1 drop LEFT EYE QID 02/22/21 03/02/21 History 0.5%] Metoprolol Tartrate [Lopressor] 25 mg PO HS@192902/22/21 03/02/21 History Metoprolol Tartrate [Lopressor] 50 mg PO DAILY@0700 02/22/21 03/02/21 History Pramipexole [Mirapex] 1 mg PO HS@192902/22/21 03/02/21 History QUEtiapine [SEROquel] 25 mg PO BID@0700,192902/22/21 03/02/21 History calcitrioL [Rocaltrol] 0.5 mcg PO TU 02/22/21 03/02/21 History Furosemide [Lasix] 20 mg PO BID@0700,1930 #0 02/24/21 03/02/21 Rx hydrALAZINE HCL 50 mg PO TID #0 02/24/21 03/02/21 Rx Insulin Glargine,Hum.rec.anlog 40 unit SQ HS@1930 PRN 03/02/21 03/02/21 History [Lantus Solostar Pen] predniSONE See Taper PO DAILY 03/02/21 03/02/21 History Allergies Allergy/AdvReac Type Severity Reaction Status Date / Time acetaminophen [From Tylenol] AdvReac kidney/liver Verified 03/02/21 09:17 issues Physical Exam Vitals: Vital Signs Temp Pulse Resp BP Pulse Ox 03/02/21 12:00 79 22 120/75 98 03/02/21 10:25 28 H 03/02/21 10:24 84 27 H 103/71 93 L 03/02/21 09:41 78 104/72 96 03/02/21 08:38 99.0 F 75 25 H 104/65 91 L Intake and Output 03/01/21 03/02/21 03/02/21 22:59 06:59 14:59 Other: Weight 99.79 kg HEAD: Normocephalic/atraumatic. EYES: Normal reaction of pupils, equal size. Conjunctiva pink, sclera white. NOSE: Clear with pink turbinates. THROAT: No erythema or exudates. NECK: No masses, no JVD, no thyroid enlargement, no adenopathy. CHEST: No chest wall deformity. Symmetrical expansion. LUNGS: Equal air entry with diffuse rhonchi CVS: Regular rate and rhythm, normal S1 and S2, no gallops, no murmurs, no rubs ABDOMEN: Soft, nontender. No hepatosplenomegaly, normal bowel sounds, no guarding or rigidity. EXTREMITIES: No clubbing, mild 1+ pretibial and pedal edema, no cyanosis, 2+ pulses and upper and lower extremities. MUSCULOSKELETAL: Muscle strength and tone normal. SPINE: No scoliosis or deformity SKIN: No rashes CENTRAL NERVOUS SYSTEM: Alert and oriented -3. No focal deficits, tone is normal in all 4 extremities. PSYCHIATRIC: Alert and oriented -3. Appropriate affect. Intact judgment and insight. Results CBC & Chem 7: 03/02/21 08:59 03/02/21 08:59 Labs: Abnormal Lab Results - Last 24 Hours (Table) 03/02/21 03/02/21 03/02/21 Range/Units 08:59 08:59 09:58 RBC 3.95 L (4.30-5.90) m/uL MCV 100.9 H (80.0-100.0) fL RDW 15.7 H (11.5-15.5) % Neutrophils # 7.8 H (1.3-7.7) k/uL APTT (22.0-30.0) sec D-Dimer (<0.60) mg/L FEU Sodium 134 L (137-145) mmol/L BUN 24 H (9-20) mg/dL Glucose 124 H (74-99) mg/dL AST 87 H (17-59) U/L ALT 147 H (4-49) U/L Total Protein 6.0 L (6.3-8.2) g/dL Albumin 3.2 L (3.5-5.0) g/dL Urine Protein Trace H (Negative) Ur Leukocyte Esterase Trace H (Negative) Urine Mucus Rare H (None) /hpf 03/02/21 Range/Units 10:31 RBC (4.30-5.90) m/uL MCV (80.0-100.0) fL RDW (11.5-15.5) % Neutrophils # (1.3-7.7) k/uL APTT 21.1 L (22.0-30.0) sec D-Dimer 1.38 H (<0.60) mg/L FEU Sodium (137-145) mmol/L BUN (9-20) mg/dL Glucose (74-99) mg/dL AST (17-59) U/L ALT (4-49) U/L Total Protein (6.3-8.2) g/dL Albumin (3.5-5.0) g/dL Urine Protein (Negative) Ur Leukocyte Esterase (Negative) Urine Mucus (None) /hpf Assessment and Plan Assessment: 1. Acute exacerbation COPD - Patient has history of advanced COPD and uses oxygen at home - We will start patient on IV steroids along with bronchodilator nebulizer treatments - O2 per nasal cannula with plans to titrate as able 2. Possible atypical pneumonia; patient has been placed on IV azithromycin and Zosyn - Workup reveals negative influenza A and B, negative: 19 PCR - We will monitor CBC, CRP and pro-calcitonin 3. Diabetes mellitus type 2; monitor Accu-Cheks every before meals and at bedtime with sliding scale; continue with home dose of Lantus 40 units subcu daily at bedtime 4. Hypertension; metoprolol as indicated; hydralazine 50 mg by mouth 3 times a day; Imdur 30 mg daily 5. Hyperlipidemia; currently not on statin therapy 6. CAD with previous stenting/CHF; aspirin 81 mg daily, metoprolol 25 mg at at bedtime and 50 mg every morning, Imdur 30 mg daily 7. CVA/TIA; continue with aspirin; currently not on statin therapy 8. Chronic kidney disease; at baseline; monitor renal function and elect rolytes; Avoid nephrotoxins and hypotension 9. Restless leg syndrome; continue with home dose of Mirapex 10. BPH; Flomax 0.4 milligrams daily DVT prophylaxis; SCDs/subcu heparin CODE STATUS; full code
[2021-03-02 21:30] LABS: Glucose,Whole Blood 405 mg/dL (75-99)
[2021-03-02] MEDS: QUEtiapine 25 MG TAB PO SCH (22:19)
[2021-03-02] MEDS: CYCLOBENZAPRINE 10 MG TAB PO SCH (22:19)
[2021-03-02] MEDS: FUROSEMIDE 20 MG TAB PO SCH (22:19)
[2021-03-02] MEDS: METOPROLOL TARTRATE 25 MG TAB PO SCH (22:19)
[2021-03-02] MEDS: hydrALAZINE HCL 50 MG TAB PO SCH (22:19)
[2021-03-02] MEDS: KETOROLAC 0.5% OPHTH DROPS 5 ML BTL LEFT EYE SCH (23:38)
[2021-03-02] MEDS: PRAMIPEXOLE 1 MG TAB PO SCH (23:46)
[2021-03-03] MEDS: methylPREDNISolone SOD SUCCI 125 MG/2 ML VIAL IV SCH ×3 (06:15→16:08)
[2021-03-03 07:21] LABS: Glucose,Whole Blood 272 mg/dL (75-99)
[2021-03-03] MEDS: IPRATROPIUM-ALBUTEROL 3 ML NEB INHALATION SCH ×4 (07:34→23:31)
--- NOTE | 2021-03-03 07:49 | XR ---
EXAMINATION TYPE: XR chest 2V DATE OF EXAM: 03/03/2021 COMPARISON: Chest x-ray 03/02/2021 HISTORY: Pneumonia TECHNIQUE: Frontal and lateral views of the chest are obtained. FINDINGS: Some patchy airspace disease is present in the left midlung, less conspicuous than on prio r exam. No evident pneumothorax or pleural effusion. Cardiac mediastinal silhouette is stable. Postop change noted to the right shoulder. Aorta is dense. IMPRESSION: Suspect some improvement in aeration.
[2021-03-03] MEDS: INSULIN ASPART (NovoLOG) 100 UNIT/ML VIAL SQ SCH ×4 (08:30→22:24)
[2021-03-03] MEDS: allopurinoL 100 MG TAB PO SCH (10:06)
[2021-03-03] MEDS: ASPIRIN 81 MG PO SCH (10:06)
[2021-03-03] MEDS: CYCLOBENZAPRINE 10 MG TAB PO SCH ×3 (10:07→20:13)
[2021-03-03] MEDS: FUROSEMIDE 20 MG TAB PO SCH ×2 (10:07→20:12)
[2021-03-03] MEDS: COLCHICINE 0.6 MG EACH PO SCH (10:07)
[2021-03-03] MEDS: ISOSORBIDE MONONITRATE ER 30 MG TAB.ER.24H PO SCH (10:08)
[2021-03-03] MEDS: MAGNESIUM OXIDE 400 MG TAB PO SCH (10:16)
[2021-03-03] MEDS: QUEtiapine 25 MG TAB PO SCH ×2 (10:18→20:12)
[2021-03-03] MEDS: METOPROLOL TARTRATE 50 MG TAB PO SCH (10:18)
[2021-03-03] MEDS: PANTOPRAZOLE 40 MG TABLET PO SCH (10:18)
[2021-03-03] MEDS: TAMSULOSIN 0.4 MG CAP.ER.24H PO SCH (10:19)
[2021-03-03] MEDS: PIPERACILLIN-TAZOBACTAM 3.375 GM in SODIUM CHLORIDE 0.9% 100 ML IVPB SCH ×2 (10:20→16:09)
[2021-03-03] MEDS: hydrALAZINE HCL 50 MG TAB PO SCH ×3 (10:20→20:13)
--- NOTE | 2021-03-03 11:29 | P.PN ---
Subjective Progress Note Date: 03/03/21 Principal diagnosis: COPD exacerbation This is 71-year-old white male patient with multiple chronic medical conditions including history of diabetes mellitus type 2, hypertension, hyperlipidemia, COPD on home oxygen since his recent admission, his baseline FEV1 is 58% of predicted or 1.[address] Torres in the pulmonary office, he is maintaining on combination of Breo-Ellipta, DuoNeb, and albuterol HFA. Patient had a recent hospitalization for acute exacerbation of COPD. Patient was discharged home on 02/24/2021 on a prednisone taper, and a Z-Laci. Patient was brought back to the emergency department with the daily history of worsening shortness of breath, and cough on 03/02/2021. Patient tested negative for COVID-19, chest x-ray showed mild bibasilar infiltrates and left upper lobe infiltrate possibly related to atelectasis, possibility of atypical pneumonia is possible but less likely. His blood work showed normal white count of 10.0, hemoglobin of 13, platelet count is 150, sodium is 134, the rest of electrolytes and renal profile were unremarkable BUN is 24 creatinine is 1.12, lactic acid was 1.2, AST was 87, ALT was 147, troponin was negative at 0.013, proBNP was 187, urinalysis showed no evidence of urinary tract infection. Patient was also tested for influenza A and B and was found to be negative. He is currently on 3 L of oxygen and his pulse ox is 96%, patient has been afebrile, he was started on empiric antibiotics in the form of azithromycin and Rocephin, IV steroids with Solu-Medrol 60 mg every 6 hours, and nebulized bronchodilators. He was given IV fluids at a rate of 100 ML per hour. The patient is seen today 03/03/2021 in follow-up on the regular medical floor. He is currently sitting up at the bedside. Awake and alert in no acute distress. Breathing easier today compared to yesterday. Maintaining O2 satura tions in the mid 90s on room air. He's been afebrile. Hemodynamically stable. Blood glucose 272. He is continued on DuoNeb inhalations, IV Solu-Medrol. Antibiotics in the form of Zosyn and azithromycin. Objective - Vital Signs Vital signs: Vital Signs Temp 97.7 F 03/03/21 04:57 Pulse 76 03/03/21 11:23 Resp 18 03/03/21 04:57 BP 139/71 03/03/21 04:57 Pulse Ox 95 03/03/21 04:57 Intake & Output 03/02/21 03/03/21 03/03/21 18:59 06:59 18:59 Intake Total 100 Balance 100 Weight 99.79 kg Intake: Intake, IV Titration 100 Amount Piperacillin-Tazobactam 3 100 .375 gm In Sodium Chloride 0.9% 100 ml @ 25 mls/hr IVPB Q8HR [facility] Rx# :[id number] Other: Voiding Method Toilet # Voids 4 - Exam GENERAL EXAM: Alert, obese 71-year-old gentleman, on room air, comfortable in no apparent distress. HEAD: Normocephalic. EYES: Normal reaction of pupils, equal size. NOSE: Clear with pink turbinates. THROAT: No erythema or exudates. NECK: No masses, no JVD. CHEST: No chest wall deformity. LUNGS: Equal air entry with faint end expiratory wheeze, diminished CVS: S1 and S2 normal with no audible murmur, regular rhythm. ABDOMEN: No hepatosplenomegaly, normal bowel sounds, no guarding or rigidity. SPINE: No scoliosis or deformity SKIN: No rashes CENTRAL NERVOUS SYSTEM: No focal deficits, tone is normal in all 4 extremities. EXTREMITIES: There is no peripheral edema. No clubbing, no cyanosis. Peripheral pulses are intact. - Labs CBC & Chem 7: 03/02/21 08:59 03/02/21 08:59 Labs: Abnormal Lab Results - Last 24 Hours (Table) 03/02/21 03/02/21 03/02/21 Range/Units 08:59 10:31 21:29 APTT 21.1 L (22.0-30.0) sec D-Dimer 1.38 H (<0.60) mg/L FEU POC Glucose (mg/dL) 405 H (75-99) mg/dL Procalcitonin 0.36 H (0.02-0.09) ng/mL 03/03/21 Range/Units 07:20 APTT (22.0-30.0) sec D-Dimer (<0.60) mg/L FEU POC Glucose (mg/dL) 272 H (75-99) mg/dL Procalcitonin (0.02-0.09) ng/mL Assessment and Plan Assessment: 1 Acute exacerbation of COPD, possibility of atypical pneumonia is less likely but not entirely ruled out, patient is covered with azithromycin and Zosyn. COVID-19 PCR was negative, influenza A and B PCR were negative 2 Recent hospitalization for acute exacerbation of COPD, discharged home on 02/24/2021 3 History of advanced COPD with FEV1 of 1.71 L, most recently on home oxygen 4 Diabetes mellitus type 2 5 Hypertension 6 Hyperlipidemia 7 History of coronary artery disease with previous stenting 8 History of CHF, unspecified 9 History of CVA/TIA 10 Osteoarthritis 11 Chronic kidney disease, unspecified 12 Sleep apnea does not wear CPAP 13 Chronic venous insufficiency 14 Chronic back pain 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, currently in remission 16 Marijuana use Plan: The patient was seen and evaluated Stable from the pulmonary standpoint Continue the current treatment plan Probably home in the a.m. I, the cosigning physician, performed a history & physical examination of the patient. Lungs sounds with faint end expiratory wheeze, diminished. Maintaining good O2 saturations in the 90s on room air. I discussed the assessment and plan of care with my nurse practitioner, Judi Crawford. I attest to the above note as dictated by her.
[2021-03-03 11:58] LABS: Glucose,Whole Blood 415 mg/dL (75-99)
[2021-03-03] MEDS: KETOROLAC 0.5% OPHTH DROPS 5 ML BTL LEFT EYE SCH ×4 (13:09→20:13)
[2021-03-03] MEDS: AZITHROMYCIN 500 MG in SODIUM CHLORIDE 0.9% 250 ML IVPB SCH (13:10)
[2021-03-03] MEDS: SODIUM CHLORIDE 0.9% 1,000 ML IV SCH ×2 (16:06→20:14)
[2021-03-03 17:14] LABS: Glucose,Whole Blood 461 mg/dL (75-99)
[2021-03-03] MEDS: METOPROLOL TARTRATE 25 MG TAB PO SCH (20:12)
[2021-03-03] MEDS: PRAMIPEXOLE 1 MG TAB PO SCH (20:13)
[2021-03-03 20:21] LABS: Glucose,Whole Blood 449 mg/dL (75-99)
[2021-03-03] MEDS ORDERED: INSULIN DETEMIR (LEVEMIR) 100 UNIT/ML SYR SQ PRN (21:30)
[2021-03-03] MEDS ORDERED: INSULIN DETEMIR (LEVEMIR) 100 UNIT/ML SYR SQ ONE ×2 (21:30)
[2021-03-03] MEDS: SYMBICORT 160-4.5 MCG INHALER INHALATION SCH (23:31)
[2021-03-04] MEDS: methylPREDNISolone SOD SUCCI 125 MG/2 ML VIAL IV SCH ×5 (00:23→23:42)
[2021-03-04] MEDS: PIPERACILLIN-TAZOBACTAM 3.375 GM in SODIUM CHLORIDE 0.9% 100 ML IVPB SCH ×4 (00:23→23:42)
[2021-03-04] MEDS: SODIUM CHLORIDE 0.9% 1,000 ML IV SCH ×2 (00:28→12:51)
[2021-03-04 01:36] LABS: Glucose,Whole Blood 283 mg/dL (75-99)
[2021-03-04 07:10] LABS: Glucose,Whole Blood 299 mg/dL (75-99)
[2021-03-04] MEDS: SYMBICORT 160-4.5 MCG INHALER INHALATION SCH ×2 (07:20→19:27)
[2021-03-04] MEDS: IPRATROPIUM-ALBUTEROL 3 ML NEB INHALATION SCH ×4 (07:20→19:27)
[2021-03-04] MEDS: allopurinoL 100 MG TAB PO SCH (08:14)
[2021-03-04] MEDS: CYCLOBENZAPRINE 10 MG TAB PO SCH ×3 (08:15→19:40)
[2021-03-04] MEDS: FUROSEMIDE 20 MG TAB PO SCH ×2 (08:15→19:40)
[2021-03-04] MEDS: ASPIRIN 81 MG PO SCH (08:15)
[2021-03-04] MEDS: COLCHICINE 0.6 MG EACH PO SCH (08:15)
[2021-03-04] MEDS: PANTOPRAZOLE 40 MG TABLET PO SCH (08:16)
[2021-03-04] MEDS: QUEtiapine 25 MG TAB PO SCH ×2 (08:16→19:40)
[2021-03-04] MEDS: ISOSORBIDE MONONITRATE ER 30 MG TAB.ER.24H PO SCH (08:16)
[2021-03-04] MEDS: MAGNESIUM OXIDE 400 MG TAB PO SCH (08:16)
[2021-03-04] MEDS: TAMSULOSIN 0.4 MG CAP.ER.24H PO SCH (08:16)
[2021-03-04] MEDS: METOPROLOL TARTRATE 50 MG TAB PO SCH (08:16)
[2021-03-04] MEDS: KETOROLAC 0.5% OPHTH DROPS 5 ML BTL LEFT EYE SCH ×4 (08:17→21:09)
[2021-03-04] MEDS: hydrALAZINE HCL 50 MG TAB PO SCH ×3 (08:18→21:08)
[2021-03-04] MEDS: INSULIN ASPART (NovoLOG) 100 UNIT/ML VIAL SQ SCH ×5 (08:22→21:08)
--- NOTE | 2021-03-04 09:10 | P.PN ---
Subjective Progress Note Date: 03/04/21 Principal diagnosis: Acute exacerbation of COPD This is 71-year-old white male patient with multiple chronic medical conditions including history of diabetes mellitus type 2, hypertension, hyperlipidemia, COPD on home oxygen since his recent admission, his baseline FEV1 is 58% of predicted or 1.[address] Torres in the pulmonary office, he is maintaining on combination of Breo-Ellipta, DuoNeb, and albuterol HFA. Patient had a recent hospitalization for acute exacerbation of COPD. Patient was discharged home on 02/24/2021 on a prednisone taper, and a Z-Laci. Patient was brought back to the emergency department with the daily history of worsening shortness of breath, and cough on 03/02/2021. Patient tested negative for COVID-19, chest x-ray showed mild bibasilar infiltrates and left upper lobe infiltrate possibly related to atelectasis, possibility of atypical pneumonia is possible but less likely. His blood work showed normal white count of 10.0, he moglobin of 13, platelet count is 150, sodium is 134, the rest of electrolytes and renal profile were unremarkable BUN is 24 creatinine is 1.12, lactic acid was 1.2, AST was 87, ALT was 147, troponin was negative at 0.013, proBNP was 187, urinalysis showed no evidence of urinary tract infection. Patient was also tested for influenza A and B and was found to be negative. He is currently on 3 L of oxygen and his pulse ox is 96%, patient has been afebrile, he was started on empiric antibiotics in the form of azithromycin and Rocephin, IV steroids with Solu-Medrol 60 mg every 6 hours, and nebulized bronchodilators. He was given IV fluids at a rate of 100 ML per hour. The patient is seen today 03/03/2021 in follow-up on the regular medical floor. He is currently sitting up at the bedside. Awake and alert in no acute distress. Breathing easier today compared to yesterday. Maintaining O2 saturations in the mid 90s on room air. He's been afebrile. Hemodynamically stable. Blood glucose 272. He is continued on DuoNeb inhalations, IV Solu- Medrol. Antibiotics in the form of Zosyn and azithromycin. Reevaluated today on 03/04/2021, patient is feeling much per her, breathing easier, remains on room air, in no distress. Chest x-ray questioned possible infiltrate in the left lower lobe or left midlung, however according to my finding, it is not quite impressive. Patient remains on antibiotics empirically. Clinically he is feeling much better compared to how he felt on admission Objective - Vital Signs Vital signs: Vital Signs Temp 97.8 F 03/04/21 04:42 Pulse 80 03/04/21 08:55 Resp 18 03/04/21 07:12 BP 131/70 03/04/21 08:55 Pulse Ox 98 03/04/21 04:42 Intake & Output 03/03/21 03/04/21 03/04/21 18:59 06:59 18:59 Intake Total 240 Balance 240 Intake: Oral 240 Other: Voiding Method Toilet Toilet Toilet # Voids 2 # Bowel Movements 1 - Exam Physical Exam: Revealed 71-year-old white male in no distress. HEENT:[Neck is supple.] [No neck masses.] [No thyromegaly.] [No JVD.] Chest: [Diminished breath sounds at the bases no crackles or rhonchi or wheezes. Cardiac Exam: [Normal S1 and S2, no S3 gallop, no murmur.] Abdomen: [Soft, nontender, no megaly, no rebound, no guarding, normal bowel sounds.] Extremities: [No clubbing, no edema, no cyanosis.] Neurological Exam: [No focal neurologic deficit.] Psychiatric normal mood affect and normal mental status examination. Skin: No rashes. - Labs CBC & Chem 7: 03/02/21 08:59 03/02/21 08:59 Labs: Abnormal Lab Results - Last 24 Hours (Table) 03/03/21 03/03/21 03/03/21 Range/Units 11:45 17:12 20:20 POC Glucose (mg/dL) 415 H 461 H 449 H (75-99) mg/dL 03/04/21 03/04/21 Range/Units 01:35 07:09 POC Glucose (mg/dL) 283 H 299 H (75-99) mg/dL Microbiology - Last 24 Hours (Table) 03/02/21 10:39 Blood Culture - Preliminary Blood No Growth after 24 hours 03/02/21 10:35 Blood Culture - Preliminary Blood No Growth after 24 hours Assessment and Plan Assessment: 1 Acute exacerbation of COPD, possibility of atypical pneumonia is less likely but not entirely ruled out, patient is covered with azithromycin and Zosyn. COVID-19 PCR was negative, influenza A and B PCR were negative 2 Recent hospitalization for acute exacerbation of COPD, discharged home on 02/24/2021 3 History of advanced COPD with FEV1 of 1.71 L, most recently on home oxygen 4 Diabetes mellitus type 2 5 Hypertension 6 Hyperlipidemia 7 History of coronary artery disease with previous stenting 8 History of CHF, unspecified 9 History of CVA/TIA 10 Osteoarthritis 11 Chronic kidney disease, unspecified 12 Sleep apnea does not wear CPAP 13 Chronic venous insufficiency 14 Chronic back pain 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, currently in remission 16 Marijuana use Recommendation: Patient is doing well today. Consider discharge planning either today or in a.m. Cleared from pulmonary perspective for discharge home on oral antibiotics, bronchodilators, steroids, and should have outpatient follow. Time with Patient: Less than 30
[2021-03-04] MEDS: AZITHROMYCIN 500 MG in SODIUM CHLORIDE 0.9% 250 ML IVPB SCH (10:14)
[2021-03-04 11:53] LABS: Glucose,Whole Blood 305 mg/dL (75-99)
[2021-03-04 17:12] LABS: Glucose,Whole Blood 349 mg/dL (75-99)
--- NOTE | 2021-03-04 17:17 | P.PN ---
Subjective Progress Note Date: 03/03/21 Principal diagnosis: Acute exacerbation COPD Possible atypical pneumonia 71-year-old male, history of CAD, CHF, COPD, CVA/TIA, diabetes mellitus, DVT, hy pertension, hyperlipidemia, sleep apnea and chronic kidney disease presenting to the emergency department with difficulty in breathing. Onset of symptoms was today. Patient recently had pneumonia. Patient had temperature of 100.2. Patient was going to have eye surgery done today however they didn't like how he is breathing. Patient did have his right eye dilated. Patient has mild cough. No leg pain. Patient has leg swelling which is chronic and improved from normal for him. His blood work showed normal white count of 10.0, hemoglobin of 13, platelet count is 150, sodium is 134, the rest of electrolytes and renal profile were unremarkable BUN is 24 creatinine is 1.12, lactic acid was 1.2, AST was 87, ALT was 147, troponin was negative at 0.013, proBNP was 187, urinalysis showed no e vidence of urinary tract infection. Patient was also tested for influenza A and B and was found to be negative. He is currently on 3 L of oxygen and his pulse ox is 96%, patient has been afebrile, he was started on empiric antibiotics in the form of azithromycin and Rocephin, IV steroids with Solu-Medrol 60 mg every 6 hours, and nebulized bronchodilators. He was given IV fluids at a rate of 100 ML per hour. Objective - Vital Signs Vital signs: Vital Signs Temp 98.3 F 03/03/21 12:28 Pulse 74 03/03/21 16:02 Resp 19 03/03/21 12:28 BP 132/67 03/03/21 16:02 Pulse Ox 93 L 03/03/21 12:28 Intake & Output 03/02/21 03/03/21 03/03/21 18:59 06:59 18:59 Intake Total 100 Balance 100 Weight 99.79 kg Intake: Intake, IV Titration 100 Amount Piperacillin-Tazobactam 3 100 .375 gm In Sodium Chloride 0.9% 100 ml @ 25 mls/hr IVPB Q8HR [facility] Rx# :[id number] Other: Voiding Method Toilet Toilet # Voids 4 - Exam HEAD: Normocephalic/atraumatic. EYES: Normal reaction of pupils, equal size. Conjunctiva pink, sclera white. NOSE: Clear with pink turbinates. THROAT: No erythema or exudates. NECK: No masses, no JVD, no thyroid enlargement, no adenopathy. CHEST: No chest wall deformity. Symmetrical expansion. LUNGS: Equal air entry with diffuse rhonchi CVS: Regular rate and rhythm, normal S1 and S2, no gallops, no murmurs, no rubs ABDOMEN: Soft, nontender. No hepatosplenomegaly, normal bowel sounds, no guarding or rigidity. EXTREMITIES: No clubbing, mild 1+ pretibial and pedal edema, no cyanosis, 2+ pulses and upper and lower extremities. MUSCULOSKELETAL: Muscle strength and tone normal. SPINE: No scoliosis or deformity SKIN: No rashes CENTRAL NERVOUS SYSTEM: Alert and oriented -3. No focal deficits, tone is normal in all 4 extremities. PSYCHIATRIC: Alert and oriented -3. Appropriate affect. Intact judgment and insight. - Labs CBC & Chem 7: 03/02/21 08:59 03/02/21 08:59 Labs: Abnormal Lab Results - Last 24 Hours (Table) 03/02/21 03/02/21 03/03/21 Range/Units 08:59 21:29 07:20 POC Glucose (mg/dL) 405 H 272 H (75-99) mg/dL Procalcitonin 0.36 H (0.02-0.09) ng/mL 03/03/21 Range/Units 11:45 POC Glucose (mg/dL) 415 H (75-99) mg/dL Procalcitonin (0.02-0.09) ng/mL Microbiology - Last 24 Hours (Table) 03/02/21 10:39 Blood Culture - Preliminary Blood No Growth after 24 hours 03/02/21 10:35 Blood Culture - Preliminary Blood No Growth after 24 hours Assessment and Plan Assessment: 1. Acute exacerbation COPD - Patient has history of advanced COPD and uses oxygen at home - We will start patient on IV steroids along with bronchodilator nebulizer treatments - O2 per nasal cannula with plans to titrate as able 2. Possible atypical pneumonia; patient has been placed on IV azithromycin and Zosyn - Workup reveals negative influenza A and B, negative: 19 PCR - We will monitor CBC, CRP and pro-calcitonin 3. Diabetes mellitus type 2; monitor Accu-Cheks every before meals and at bedtime with sliding scale; continue with home dose of Lantus 40 units subcu daily at bedtime 4. Hypertension; metoprolol as indicated; hydralazine 50 mg by mouth 3 times a day; Imdur 30 mg daily 5. Hyperlipidemia; currently not on statin therapy 6. CAD with previous stenting/CHF; aspirin 81 mg daily, metoprolol 25 mg at at bedtime and 50 mg every morning, Imdur 30 mg daily 7. CVA/TIA; continue with aspirin; currently not on statin therapy 8. Chronic kidney disease; at baseline; monitor renal function and electrolytes; Avoid nephrotoxins and hypotension 9. Restless leg syndrome; continue with home dose of Mirapex 10. BPH; Flomax 0.4 milligrams daily DVT prophylaxis; SCDs/subcu heparin CODE STATUS; full code
[2021-03-04] MEDS ORDERED: INSULIN DETEMIR (LEVEMIR) 100 UNIT/ML SYR SQ PRN (19:30)
[2021-03-04] MEDS ORDERED: INSULIN DETEMIR (LEVEMIR) 100 UNIT/ML SYR SQ SCH (19:30)
[2021-03-04] MEDS: PRAMIPEXOLE 1 MG TAB PO SCH (19:40)
[2021-03-04] MEDS: METOPROLOL TARTRATE 25 MG TAB PO SCH (19:40)
--- NOTE | 2021-03-04 19:50 | P.PN ---
Subjective Progress Note Date: 03/04/21 Principal diagnosis: Acute exacerbation COPD Possible atypical pneumonia 71-year-old male, history of CAD, CHF, COPD, CVA/TIA, diabetes mellitus, DVT, hy pertension, hyperlipidemia, sleep apnea and chronic kidney disease presenting to the emergency department with difficulty in breathing. Onset of symptoms was today. Patient recently had pneumonia. Patient had temperature of 100.2. Patient was going to have eye surgery done today however they didn't like how he is breathing. Patient did have his right eye dilated. Patient has mild cough. No leg pain. Patient has leg swelling which is chronic and improved from normal for him. His blood work showed normal white count of 10.0, hemoglobin of 13, platelet count is 150, sodium is 134, the rest of electrolytes and renal profile were unremarkable BUN is 24 creatinine is 1.12, lactic acid was 1.2, AST was 87, ALT was 147, troponin was negative at 0.013, proBNP was 187, urinalysis showed no e vidence of urinary tract infection. Patient was also tested for influenza A and B and was found to be negative. He is currently on 3 L of oxygen and his pulse ox is 96%, patient has been afebrile, he was started on empiric antibiotics in the form of azithromycin and Rocephin, IV steroids with Solu-Medrol 60 mg every 6 hours, and nebulized bronchodilators. He was given IV fluids at a rate of 100 ML per hour. 03/04/2021 Patient is seen and evaluated sitting up in bed; reports some improvement in breathing Vital signs are reviewed temperature 97.8, pulse 80, respiration 18 and blood pressure of 131/70 Blood glucose remains elevated above 300; we will add 5 units of insulin aspart Q before meals; continue with 55 units of Levemir at at bedtime Chest x-ray questioned possible infiltrate in the left lower lobe or left midlung; patient remains on IV antibiotics Patient evaluated by pulmonary service and can be switched to oral antibiotics; patient however reports shortness of breath with ambulation and requesting to be continued on current regimen Possible discharge in next 24 hours if remains stable Objective - Vital Signs Vital signs: Vital Signs Temp 98 F 03/04/21 12:24 Pulse 80 03/04/21 15:38 Resp 17 03/04/21 12:24 BP 141/64 03/04/21 12:24 Pulse Ox 93 L 03/04/21 12:24 Intake & Output 03/03/21 03/04/21 03/04/21 18:59 06:59 18:59 Intake Total 240 Balance 240 Intake: Oral 240 Other: Voiding Method Toilet Toilet Toilet # Voids 2 # Bowel Movements 1 - Exam HEAD: Normocephalic/atraumatic. EYES: Normal reaction of pupils, equal size. Conjunctiva pink, sclera white. NOSE: Clear with pink turbinates. THROAT: No erythema or exudates. NECK: No masses, no JVD, no thyroid enlargement, no adenopathy. CHEST: No chest wall deformity. Symmetrical expansion. LUNGS: Equal air entry with diffuse rhonchi CVS: Regular rate and rhythm, normal S1 and S2, no gallops, no murmurs, no rubs ABDOMEN: Soft, nontender. No hepatosplenomegaly, normal bowel sounds, no guarding or rigidity. EXTREMITIES: No clubbing, mild 1+ pretibial and pedal edema, no cyanosis, 2+ pulses and upper and lower extremities. MUSCULOSKELETAL: Muscle strength and tone normal. SPINE: No scoliosis or deformity SKIN: No rashes CENTRAL NERVOUS SYSTEM: Alert and oriented -3. No focal deficits, tone is normal in all 4 extremities. PSYCHIATRIC: Alert and oriented -3. Appropriate affect. Intact judgment and insight. - Labs CBC & Chem 7: 03/02/21 08:59 03/02/21 08:59 Labs: Abnormal Lab Results - Last 24 Hours (Table) 03/03/21 03/04/21 03/04/21 Range/Units 20:20 01:35 07:09 POC Glucose (mg/dL) 449 H 283 H 299 H (75-99) mg/dL 03/04/21 03/04/21 Range/Units 11:52 17:10 POC Glucose (mg/dL) 305 H 349 H (75-99) mg/dL Microbiology - Last 24 Hours (Table) 03/02/21 10:39 Blood Culture - Preliminary Blood No Growth after 48 hours 03/02/21 10:35 Blood Culture - Preliminary Blood No Growth after 48 hours Assessment and Plan Assessment: 1. Acute exacerbation COPD - Patient has history of advanced COPD and uses oxygen at home - We will start patient on IV steroids along with bronchodilator nebulizer treatments - O2 per nasal cannula with plans to titrate as able 2. Possible atypical pneumonia; patient has been placed on IV azithromycin and Zosyn - Workup reveals negative influenza A and B, negative: 19 PCR - We will monitor CBC, CRP and pro-calcitonin 3. Diabetes mellitus type 2; monitor Accu-Cheks every before meals and at bedtime with sliding scale; continue with home dose of Lantus 40 units subcu daily at bedtime 4. Hypertension; metoprolol as indicated; hydralazine 50 mg by mouth 3 times a day; Imdur 30 mg daily 5. Hyperlipidemia; currently not on statin therapy 6. CAD with previous stenting/CHF; aspirin 81 mg daily, metoprolol 25 mg at at bedtime and 50 mg every morning, Imdur 30 mg daily 7. CVA/TIA; continue with aspirin; currently not on statin therapy 8. Chronic kidney disease; at baseline; monitor renal function and electrolytes; Avoid nephrotoxins and hypotension 9. Restless leg syndrome; continue with home dose of Mirapex 10. BPH; Flomax 0.4 milligrams daily DVT prophylaxis; SCDs/subcu heparin CODE STATUS; full code
[2021-03-04 20:21] LABS: Glucose,Whole Blood 360 mg/dL (75-99)
[2021-03-05] MEDS: SODIUM CHLORIDE 0.9% 1,000 ML IV SCH ×2 (04:04→12:40)
[2021-03-05] MEDS: methylPREDNISolone SOD SUCCI 125 MG/2 ML VIAL IV SCH ×2 (05:41→13:43)
[2021-03-05 06:08] LABS: Basophils % (A) 0 %; Eosinophils % (A) 0 %; HCT 39.6 % (39.0-53.0); HGB 12.7 gm/dL (13.0-17.5); Lymphocytes # (A) 0.5 k/uL (1.0-4.8); Lymphocytes % (A) 3 %; MCH 32.7 pg (25.0-35.0); MCHC 31.9 g/dL (31.0-37.0); MCV 102.4 fL (80.0-100.0); Macrocytosis Slight; Mean Platelet Volume 9.5; Monocytes # (A) 0.4 k/uL (0-1.0); Monocytes % (A) 2 %; Neutrophils # (A) 15.5 k/uL (1.3-7.7); Neutrophils % (A) 94 %; Platelet Count 217 k/uL (150-450); RBC 3.87 m/uL (4.30-5.90); RDW 15.7 % (11.5-15.5); WBC 16.5 k/uL (3.8-10.6)
[2021-03-05] MEDS: PIPERACILLIN-TAZOBACTAM 3.375 GM in SODIUM CHLORIDE 0.9% 100 ML IVPB SCH (07:37)
[2021-03-05] MEDS: ASPIRIN 81 MG PO SCH (07:37)
[2021-03-05] MEDS: allopurinoL 100 MG TAB PO SCH (07:38)
[2021-03-05] MEDS: ISOSORBIDE MONONITRATE ER 30 MG TAB.ER.24H PO SCH (07:38)
[2021-03-05] MEDS: hydrALAZINE HCL 50 MG TAB PO SCH (07:38)
[2021-03-05] MEDS: CYCLOBENZAPRINE 10 MG TAB PO SCH ×2 (07:38→13:37)
[2021-03-05] MEDS: PANTOPRAZOLE 40 MG TABLET PO SCH (07:38)
[2021-03-05] MEDS: TAMSULOSIN 0.4 MG CAP.ER.24H PO SCH (07:38)
[2021-03-05] MEDS: FUROSEMIDE 20 MG TAB PO SCH (07:38)
[2021-03-05] MEDS: QUEtiapine 25 MG TAB PO SCH (07:38)
[2021-03-05] MEDS: COLCHICINE 0.6 MG EACH PO SCH (07:39)
[2021-03-05] MEDS: MAGNESIUM OXIDE 400 MG TAB PO SCH (07:39)
[2021-03-05] MEDS: METOPROLOL TARTRATE 50 MG TAB PO SCH (07:39)
[2021-03-05 07:43] LABS: Glucose,Whole Blood 210 mg/dL (75-99)
[2021-03-05] MEDS: KETOROLAC 0.5% OPHTH DROPS 5 ML BTL LEFT EYE SCH ×2 (08:15→12:41)
[2021-03-05] MEDS: INSULIN ASPART (NovoLOG) 100 UNIT/ML VIAL SQ SCH ×4 (08:15→13:38)
[2021-03-05] MEDS: IPRATROPIUM-ALBUTEROL 3 ML NEB INHALATION SCH ×2 (08:39→11:52)
[2021-03-05] MEDS: SYMBICORT 160-4.5 MCG INHALER INHALATION SCH (08:39)
[2021-03-05] MEDS ORDERED: AZITHROMYCIN 500 MG TAB PO SCH (09:00)
[2021-03-05 09:02] LABS: African American GFR (CKD) 63.2 (60.0-200.0); Anion Gap 13.8 mmol/L (10.00-18.00); BUN/Creat Ratio 26.62 Ratio (12.00-20.00); Blood Urea Nitrogen 34.6 mg/dL (9.0-27.0); Calcium 8.8 mg/dL (8.7-10.3); Carbon Dioxide 24.2 mmol/L (20.0-27.5); Non-African American GFR(CKD) 54.5 (60.0-200.0); Potassium 3.6 mmol/L (3.5-5.5)
[2021-03-05 12:39] LABS: Glucose,Whole Blood 355 mg/dL (75-99)
[2021-03-05 12:52] VITALS: BP 149/74; PULSE 71; RESP 18; TEMP 98
--- NOTE | 2021-03-05 13:28 | P.PN ---
Subjective Progress Note Date: 03/05/21 Principal diagnosis: Shortness of breath, coughing This is 71-year-old white male patient with multiple chronic medical conditions including history of diabetes mellitus type 2, hypertension, hyperlipidemia, COPD on home oxygen since his recent admission, his baseline FEV1 is 58% of predicted or 1.[address] Torres in the pulmonary office, he is maintaining on combination of Breo-Ellipta, DuoNeb, and albuterol HFA. Patient had a recent hospitalization for acute exacerbation of COPD. Patient was discharged home on 02/24/2021 on a prednisone taper, and a Z-Laci. Patient was brought back to the emergency department with the daily history of worsening shortness of breath, and cough on 03/02/2021. Patient tested negative for COVID-19, chest x-ray showed mild bibasilar infiltrates and left upper lobe infiltrate possibly related to atelectasis, possibility of atypical pneumonia is possible but less likely. His blood work showed normal white count of 10.0, hemoglobin of 13, platelet count is 150, sodium is 134, the rest of electrolytes and renal profile were unremarkable BUN is 24 creatinine is 1.12, lactic acid was 1.2, AST was 87, ALT was 147, troponin was negative at 0.013, proBNP was 187, urinalysis showed no evidence of urinary tract infection. Patient was also tested for influenza A and B and was found to be negative. He is currently on 3 L of oxygen and his pulse ox is 96%, patient has been afebrile, he was started on empiric antibiotics in the form of azithromycin and Rocephin, IV steroids with Solu-Medrol 60 mg every 6 hours, and nebulized bronchodilators. He was given IV fluids at a rate of 100 ML per hour. The patient is seen today 03/03/2021 in follow-up on the regular medical floor. He is currently sitting up at the bedside. Awake and alert in no acute distress. Breathing easier today compared to yesterday. Maintaining O2 saturations in the mid 90s on room air. He's been afebrile. Hemodynamically stable. Blood glucose 272. He is continued on DuoNeb inhalations, IV Solu- Medrol. Antibiotics in the form of Zosyn and azithromycin. Reevaluated today on 03/04/2021, patient is feeling much per her, breathing easi er, remains on room air, in no distress. Chest x-ray questioned possible infiltrate in the left lower lobe or left midlung, however according to my finding, it is not quite impressive. Patient remains on antibiotics empirically. Clinically he is feeling much better compared to how he felt on admission On 03/05/2021 patient seen in follow-up on medical surgical floor, he is breathing comfortably, he states he's feeling a lot better, the cough has improved, vital signs have been stable, no fever or chills. From a pulse ox is 94%, no fever or chills, blood pressure is been stable, his been tolerating ambulation in the room, this had no acute events. Blood cultures have shown no growth, his labs have been reviewed showing white blood cell count is 16.5, possibly related to IV steroids, hemoglobin is 12.7, electrolytes were within normal limits, his BUN was 34, creatinine is 1.3. His pro calcitonin level was negative at 0.36, urinalysis was negative, his COVID-19 PCR was negative, in fluenza A and B were negative. Patient is on azithromycin and Zosyn, he is on the nebulized bronchodilators, and Symbicort. Patient is on oral Lasix. His on IV steroids. With significantly improved, he would like to go home today. Objective - Vital Signs Vital signs: Vital Signs Temp 98 F 03/05/21 12:52 Pulse 71 03/05/21 12:52 Resp 18 03/05/21 12:52 BP 149/74 03/05/21 12:52 Pulse Ox 94 L 03/05/21 12:52 Intake & Output 03/04/21 03/05/21 03/05/21 18:59 06:59 18:59 Intake Total 1240 Balance 1240 Intake: Intake, IV Titration 1000 Amount Piperacillin-Tazobactam 3 100 .375 gm In Sodium Chloride 0.9% 100 ml @ 25 mls/hr IVPB Q8HR JOSE Rx# :[id number] Sodium Chloride 0.9% 1, 900 000 ml @ 100 mls/hr IV . Q10H JOSE Rx#:[id number] Oral 240 Other: Voiding Method Toilet Toilet # Voids 4 2 # Bowel Movements 1 - Exam GENERAL EXAM: Alert, very pleasant, 71-year-old white male, on room air, breathing comfortably, with a pulse ox of 94%, comfortable in no apparent distress. HEAD: Normocephalic/atraumatic. EYES: Normal reaction of pupils, equal size. Conjunctiva pink, sclera white. NOSE: Clear with pink turbinates. THROAT: No erythema or exudates. NECK: No masses, no JVD, no thyroid enlargement, no adenopathy. CHEST: No chest wall deformity. Symmetrical expansion. LUNGS: Equal air entry with no crackles, wheeze, rhonchi or dullness. CVS: Regular rate and rhythm, normal S1 and S2, no gallops, no murmurs, no rubs ABDOMEN: Soft, nontender. No hepatosplenomegaly, normal bowel sounds, no guarding or rigidity. EXTREMITIES: No clubbing, no edema, no cyanosis, 2+ pulses and upper and lower extremities. MUSCULOSKELETAL: Muscle strength and tone normal. SPINE: No scoliosis or deformity SKIN: No rashes CENTRAL NERVOUS SYSTEM: Alert and oriented -3. No focal deficits, tone is normal in all 4 extremities. PSYCHIATRIC: Alert and oriented -3. Appropriate affect. Intact judgment and insight. - Labs CBC & Chem 7: 03/05/21 05:23 03/05/21 05:23 Labs: Abnormal Lab Results - Last 24 Hours (Table) 03/04/21 03/04/21 03/05/21 Range/Units 17:10 20:17 05:23 WBC 16.5 H (3.8-10.6) k/uL RBC 3.87 L (4.30-5.90) m/uL Hgb 12.7 L (13.0-17.5) gm/dL MCV 102.4 H (80.0-100.0) fL RDW 15.7 H (11.5-15.5) % Neutrophils # 15.5 H (1.3-7.7) k/uL Lymphocytes # 0.5 L (1.0-4.8) k/uL BUN (9.0-27.0) mg/dL Est GFR (CKD-EPI)NonAf (60.0-200.0) BUN/Creatinine Ratio (12.00-20.00) Ratio Glucose (70-110) mg/dL POC Glucose (mg/dL) 349 H 360 H (75-99) mg/dL 03/05/21 03/05/21 03/05/21 Range/Units 05:23 07:18 11:49 WBC (3.8-10.6) k/uL RBC (4.30-5.90) m/uL Hgb (13.0-17.5) gm/dL MCV (80.0-100.0) fL RDW (11.5-15.5) % Neutrophils # (1.3-7.7) k/uL Lymphocytes # (1.0-4.8) k/uL BUN 34.6 H (9.0-27.0) mg/dL Est GFR (CKD-EPI)NonAf 54.5 L (60.0-200.0) BUN/Creatinine Ratio 26.62 H (12.00-20.00) Ratio Glucose 237 H (70-110) mg/dL POC Glucose (mg/dL) 210 H 355 H (75-99) mg/dL Microbiology - Last 24 Hours (Table) 03/02/21 10:39 Blood Culture - Preliminary Blood No Growth after 72 hours 03/02/21 10:35 Blood Culture - Preliminary Blood No Growth after 72 hours Assessment and Plan Plan: Assessment: #1. Acute exacerbation of COPD, possibility of atypical pneumonia is less likely but not entirely ruled out, patient is covered with azithromycin and Zosyn. COVID-19 PCR was negative, influenza A and B PCR were negative #2. Recent hospitalization for acute exacerbation of COPD, discharged home on 02/24/2021 #3. History of advanced COPD with FEV1 of 1.71 L, most recently on home oxygen #4. Diabetes mellitus type 2 #5. Hypertension #6. Hyperlipidemia #7. History of coronary artery disease with previous stenting #8. History of CHF, unspecified #9. History of CVA/TIA #10. Osteoarthritis #11. Chronic kidney disease, unspecified #12. Sleep apnea does not wear CPAP #13. Chronic venous insufficiency #14. 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 Marijuana use Plan: Patient has significantly improved since admission Vital signs have been stable and he is on room air Consider discharge home on oral course of antibiotics steroid taper, and he can resume his nebulized treatments and Symbicort at home Follow up with Dr. Torres in the office next week I performed a history & physical examination of the patient and discussed their management with my nurse practitioner, Skylar Mckoy. I reviewed the nurse practitioner's note and agree with the documented findings and plan of care. Lung sounds are positive for diffuse wheezes throughout the lung [place]. The findings and the impression was discussed with the patient. I attest to the documentation by the nurse practitioner. Time with Patient: Less than 30
[2021-03-05] MEDS ORDERED: predniSONE 20 MG TAB PO SCH (13:30)
--- NOTE | 2021-03-06 09:14 | P.DS ---
Providers Date of admission: 03/02/21 10:39 Expected date of discharge: 03/05/21 Attending physician: Mathew Mustafa MD Consults: 03/02/21 10:39 Consult Physician Routine Consulting Provider: Rahul Chang Consult Reason/Comments: dyspnea Do you want consulting provider notified?: Yes Primary care physician: Rk Keene [facility] Course: Final diagnosis COPD acute exacerbation Possible atypical pneumonia, present on admission Leukocytosis, possibly reactive Diabetes mellitus type 2, uncontrolled with hyperglycemia Hypertension Hyperlipidemia Coronary artery disease with previous stenting History of CVA/TIA Chronic kidney disease Restless leg syndrome BPH history DVT prophylaxis Full code Discharge disposition Patient is being discharged in a stable condition with guarded prognosis to home. Patient will follow-up with Dr. Keene in the outpatient setting upon discharge. Patient is to follow-up with pulmonary Dr. Chang in the outpatient setting as scheduled. Patient will continue on prednisone taper along with a short course of Zithromax to complete the course. Total time taken is greater than 35 minutes. Hospital course This is an 71-year-old male who was recently admitted with acute exacerbation of COPD with possible atypical pneumonia and being closely monitored. Pulmonary following closely and patient was maintained on breathing inhalational treatments along with IV steroids and started on antibiotics. Patient will continue with oral Zithromax 500 mg daily for the next 2 days complete the course along with a prednisone taper on discharge. Recommend close outpatient follow-up with pulmonary an appointment has been made. Patient will continue with breathing inhalational treatments as well. Patient states he is feeling much better and would like to go home today. Currently no reports of chest pain, worsening shortness of breath, or palpitations. Patient is afebrile. No reports of nausea or vomiting and patient is tolerating diet. Patient will be discharged home today. Guarded prognosis. Physical Exam: GENERAL: The patient is alert and oriented x3, all developed, well-nourished, obese. HEENT: Pupils are round and equally reacting to light. EOMI. No scleral icterus. No conjunctival pallor. Normocephalic, atraumatic. No pharyngeal erythema. No thyromegaly. CARDIOVASCULAR: S1 and S2 muffled PULMONARY: Diminished breath sounds bilaterally with some scattered rhonchi and minimal expiratory wheezing noted ABDOMEN: Soft, obese, nontender, nondistended, normoactive bowel sounds. No palpable organomegaly. MUSCULOSKELETAL: No joint swelling or deformity. EXTREMITIES: No cyanosis, clubbing, or pedal edema. NEUROLOGICAL: Gross neurological examination did not reveal any focal deficits. SKIN: No lesions or rashes noted. Please refer to medication reconciliation sheet for a list of medications. Patient Condition at Discharge: Fair Plan - Discharge Summary Discharge Rx Participant: No New Discharge Prescriptions: New predniSONE 10 mg PO DIRECTED #30 tab Budesonide-Formot 160-4.5 Mcg [Symbicort 160-4.5 Mcg Inhaler] 2 puff INHALATION RT-BID 30 Days #1 gm Ipratropium-Albuterol Nebulize [Duoneb 0.5 mg-3 mg/3 ml Soln] 3 ml INHALATION RT-Q4H PRN ml PRN Reason: shortness of breath INSULIN ASPART (NovoLOG) [NovoLOG (formulary)] 10 unit SQ ACHS 30 Days #5 ml Azithromycin [Zithromax] 500 mg PO DAILY 2 Days #2 tab Continue Omeprazole 20 mg PO DAILY@0700 Tamsulosin [Flomax] 0.4 mg PO DAILY@0700 Aspirin EC [Ecotrin Low Dose] 81 mg PO DAILY@0700 Colchicine 0.6 mg PO DAILY@0700 Magnesium 250 mg PO DAILY@0700 Isosorbide Mononitrate [Isosorbide Mononitrate ER] 30 mg PO DAILY@0700 Nitroglycerin Sl Tabs [Nitrostat] 0.4 mg SL Q5M PRN PRN Reason: Chest Pain QUEtiapine [SEROquel] 25 mg PO BID@0700,1930 Metoprolol Tartrate [Lopressor] 25 mg PO HS@1930 Ketorolac 0.5% Ophth Soln [Acular 0.5%] 1 drop LEFT EYE QID Cyclobenzaprine [Flexeril] 10 mg PO TID@0700,1200,1930 Febuxostat [Uloric] 40 mg PO DAILY@0700 hydrALAZINE HCL 50 mg PO TID #0 Ergocalciferol [Vitamin D2 (1250 Mcg = 64285 Iu)] 1,250 mcg PO Q14D Ipratropium-Albuterol Nebulize [Duoneb 0.5 mg-3 mg/3 ml Soln] 3 ml INHALATION RT-QID Pramipexole [Mirapex] 1 mg PO HS@1930 Metoprolol Tartrate [Lopressor] 50 mg PO DAILY@07 calcitrioL [Rocaltrol] 0.5 mcg PO TU Albuterol Inhaler [Ventolin Hfa Inhaler] 2 puff INHALATION RT-QID PRN PRN Reason: Shortness Of Breath Furosemide [Lasix] 20 mg PO BID@07,1929 #0 predniSONE [Deltasone] 20 mg PO DAILY@0700 #0 Changed Insulin Glargine,Hum.rec.anlog [Lantus Solostar Pen] 55 unit SQ HS@1929 PRN #0 PRN Reason: IF BLOOD SUGAR IS OVER 120 Discontinued Fluticasone/Vilanterol [Breo Ellipta 100-25 Mcg Inhaler] 1 puff INHALATION RT-HS@1929 predniSONE See Taper PO DAILY Discharge Medication List Omeprazole 20 mg PO DAILY@69911/23/19 [History] Tamsulosin [Flomax] 0.4 mg PO DAILY@69911/23/19 [History] Aspirin EC [Ecotrin Low Dose] 81 mg PO DAILY@69912/09/19 [History] Colchicine 0.6 mg PO DAILY@69903/23/20 [History] Magnesium 250 mg PO DAILY@69903/23/20 [History] Isosorbide Mononitrate [Isosorbide Mononitrate ER] 30 mg PO DAILY@69906/15/20 [History] Nitroglycerin Sl Tabs [Nitrostat] 0.4 mg SL Q5M PRN 06/15/20 [History] Ergocalciferol [Vitamin D2 (1250 Mcg = 16653 Iu)] 1,250 mcg PO Q14D 08/21/20 [History] Ipratropium-Albuterol Nebulize [Duoneb 0.5 mg-3 mg/3 ml Soln] 3 ml INHALATION RT-QID 08/21/20 [History] Albuterol Inhaler [Ventolin Hfa Inhaler] 2 puff INHALATION RT-QID PRN 02/22/21 [History] Cyclobenzaprine [Flexeril] 10 mg PO TID@0700,1200,1930 02/22/21 [History] Febuxostat [Uloric] 40 mg PO DAILY@69902/22/21 [History] Ketorolac 0.5% Ophth Soln [Acular 0.5%] 1 drop LEFT EYE QID 02/22/21 [History] Metoprolol Tartrate [Lopressor] 25 mg PO HS@192902/22/21 [History] Metoprolol Tartrate [Lopressor] 50 mg PO DAILY@69902/22/21 [History] Pramipexole [Mirapex] 1 mg PO HS@192902/22/21 [History] QUEtiapine [SEROquel] 25 mg PO BID@699,192902/22/21 [History] calcitrioL [Rocaltrol] 0.5 mcg PO TU 02/22/21 [History] Furosemide [Lasix] 20 mg PO BID@699,1929 #0 02/24/21 [Rx] hydrALAZINE HCL 50 mg PO TID #0 02/24/21 [Rx] Azithromycin [Zithromax] 500 mg PO DAILY 2 Days #2 tab 03/05/21 [Rx] Budesonide-Formot 160-4.5 Mcg [Symbicort 160-4.5 Mcg Inhaler] 2 puff INHALATION RT-BID 30 Days #1 gm 03/05/21 [Rx] INSULIN ASPART (NovoLOG) [NovoLOG (formulary)] 10 unit SQ ACHS 30 Days #5 ml 03/05/21 [Rx] Insulin Glargine,Hum.rec.anlog [Lantus Solostar Pen] 55 unit SQ HS@1929 PRN #0 03/05/21 [Rx] Ipratropium-Albuterol Nebulize [Duoneb 0.5 mg-3 mg/3 ml Soln] 3 ml INHALATION RT-Q4H PRN ml 03/05/21 [Rx] predniSONE 10 mg PO DIRECTED #30 tab 03/05/21 [Rx] predniSONE [Deltasone] 20 mg PO DAILY@00 #0 03/05/21 [Rx] Follow up Appointment(s)/Referral(s): Rahul Chang MD [STAFF PHYSICIAN] - 03/09/21 8:45 am Rk Keene III, MD [Primary Care Provider] - 03/07/21 3:00 pm (This doctors appointment will be a tele-visit. Office will call patient to confirm.) [facility], [NON-STAFF] - 1 Week Patient Instructions/Handouts: Prednisone (By mouth), Azithromycin (By mouth), Insulin Aspart, Recombinant (By injection), Budesonide/Formoterol (By breathing), COPD (Chronic Obstructive Pulmonary Disease) (DC), Basic Carbohydrate Counting (DC), Pneumonia (DC), Type 2 Diabetes Management for Adults (DC) Activity/Diet/Wound Care/Special Instructions: Activity Limited until follow-up Follow-up with primary care provider on discharge Follow-up with pulmonary as outpatient Continue to monitor blood sugars before meals and at bedtime and keep a diary for primary care follow-up Continue long-acting insulin at night Continue sliding scale novolog before meals and at bedtime NovoLog sliding scale as follows: 0-150 equals 0 units 151-200 equals 2 units 201-250 equals 4 units 251-300 equals 6 units 301-350 equals 8 units 351-400 equals 10 units Please notify provider if blood sugar is 400 or above Continue consistent carb heart healthy diet Continue with breathing inhalational treatments Continue antibiotics until finished Continue prednisone taper until finished and follow-up with primary to discuss maintenance steroid dose Discharge Disposition: HOME WITH HOME HEALTH SERVICES
[2021-03-13] MEDS ORDERED: ERGOCALCIFEROL 1,250 MCG (50,000 IU) CAPSULE PO SCH (09:00)
== END 2021-03-05 14:38 | disposition home health service (06) | DRG 190 ==
LOC: EC 08:32 → 5NMEDONC 10:39
PROVIDERS: ADMIT Internal Medicine; ATTEND Internal Medicine
DX: J44.0 Chronic obstructive pulmonary disease with (acute) lower respiratory infection (principal); J18.9 Pneumonia, unspecified organism; I13.0 Hypertensive heart and chronic kidney disease with heart failure and stage 1 through stage 4 chronic kidney disease, or unspecified chronic kidney disease; J96.10 Chronic respiratory failure, unspecified whether with hypoxia or hypercapnia; J44.1 Chronic obstructive pulmonary disease with (acute) exacerbation; Z20.822 Contact with and (suspected) exposure to COVID-19; Z88.6 Allergy status to analgesic agent; E11.22 Type 2 diabetes mellitus with diabetic chronic kidney disease; E11.65 Type 2 diabetes mellitus with hyperglycemia; E78.5 Hyperlipidemia, unspecified; G25.81 Restless legs syndrome; G47.30 Sleep apnea, unspecified; J40 Bronchitis, not specified as acute or chronic; G89.29 Other chronic pain; M54.9 Dorsalgia, unspecified; I25.10 Atherosclerotic heart disease of native coronary artery without angina pectoris; I50.9 Heart failure, unspecified; I87.2 Venous insufficiency (chronic) (peripheral); J30.2 Other seasonal allergic rhinitis; M10.9 Gout, unspecified; I87.8 Other specified disorders of veins; E66.9 Obesity, unspecified; Z68.34 Body mass index [BMI] 34.0-34.9, adult; M06.9 Rheumatoid arthritis, unspecified; M19.90 Unspecified osteoarthritis, unspecified site; N18.9 Chronic kidney disease, unspecified; N40.0 Benign prostatic hyperplasia without lower urinary tract symptoms; Z79.52 Long term (current) use of systemic steroids; Z79.82 Long term (current) use of aspirin; Z79.899 Other long term (current) drug therapy; Z86.718 Personal history of other venous thrombosis and embolism; Z86.73 Personal history of transient ischemic attack (TIA), and cerebral infarction without residual deficits; Z87.01 Personal history of pneumonia (recurrent); Z87.19 Personal history of other diseases of the digestive system; Z87.891 Personal history of nicotine dependence; Z95.5 Presence of coronary angioplasty implant and graft; Z96.1 Presence of intraocular lens; Z96.611 Presence of right artificial shoulder joint; Z96.652 Presence of left artificial knee joint; Z99.81 Dependence on supplemental oxygen
CPT/HCPCS: 36415; 71046; 80048; 80053; 81001; 83605; 83880; 84145; 84484; 85025; 85379; 85610; 85730; 87040; 87502; 87635; 93005; 94640; 96374; 99285

== ENCOUNTER 2021-03-12 14:26 | Inpatient (IN) | payer MEDICARE ==
[2021-03-12] MEDS ORDERED: ALBUTEROL HFA INHALER INHALATION STA (15:31)
--- NOTE | 2021-03-12 15:33 | ED ---
General Adult HPI - General Chief complaint: Shortness of Breath Stated complaint: Difficulty Breathing Time Seen by Provider: 03/12/21 15:05 Source: patient, family, RN notes reviewed Mode of arrival: ambulatory Limitations: no limitations - History of Present Illness Initial comments: Patient is a pleasant 71-year-old male presenting to the emergency department with dyspnea. Patient has had symptoms and certainly over the past several weeks/months. Symptoms worsen this time last few days. Patient has had fever at home up to 101.7. Patient did see his insole and heel stiffener Dr. Chang Friday and antibiotics were changed. Patient does have cough with dyspnea. Patient has leg swelling is chronic and unchanged. Patient has been vaccinated for COVID- 19. Recent negative test. Patient was recently admitted with pneumonia and COPD. - Related Data Home Medications Medication Instructions Recorded Confirmed Omeprazole 20 mg PO DAILY@0700 11/23/19 03/02/21 Tamsulosin [Flomax] 0.4 mg PO DAILY@0700 11/23/19 03/02/21 Aspirin EC [Ecotrin Low Dose] 81 mg PO DAILY@0700 12/09/19 03/02/21 Colchicine 0.6 mg PO DAILY@0700 03/23/20 03/02/21 Magnesium 250 mg PO DAILY@0700 03/23/20 03/02/21 Isosorbide Mononitrate [Isosorbide 30 mg PO DAILY@0700 06/15/20 03/02/21 Mononitrate ER] Nitroglycerin Sl Tabs [Nitrostat] 0.4 mg SL Q5M PRN 06/15/20 03/02/21 Ergocalciferol [Vitamin D2 (1250 1,250 mcg PO Q14D 08/21/20 03/02/21 Mcg = 18955 Iu)] Ipratropium-Albuterol Nebulize 3 ml INHALATION RT-QID 08/21/20 03/02/21 [Duoneb 0.5 mg-3 mg/3 ml Soln] Albuterol Inhaler [Ventolin Hfa 2 puff INHALATION RT-QID PRN 02/22/21 03/02/21 Inhaler] Cyclobenzaprine [Flexeril] 10 mg PO TID@0700,1200,1930 02/22/21 03/02/21 Febuxostat [Uloric] 40 mg PO DAILY@0700 02/22/21 03/02/21 Ketorolac 0.5% Ophth Soln [Acular 1 drop LEFT EYE QID 02/22/21 03/02/21 0.5%] Metoprolol Tartrate [Lopressor] 25 mg PO HS@1930 02/22/21 03/02/21 Metoprolol Tartrate [Lopressor] 50 mg PO DAILY@0700 02/22/21 03/02/21 Pramipexole [Mirapex] 1 mg PO HS@1930 02/22/21 03/02/21 QUEtiapine [SEROquel] 25 mg PO BID@0700,1930 02/22/21 03/02/21 calcitrioL [Rocaltrol] 0.5 mcg PO TU 02/22/21 03/02/21 Previous Rx's Medication Instructions Recorded Furosemide [Lasix] 20 mg PO BID@0700,1930 #0 02/24/21 hydrALAZINE HCL 50 mg PO TID #0 02/24/21 Azithromycin [Zithromax] 500 mg PO DAILY 2 Days #2 tab 03/05/21 Budesonide-Formot 160-4.5 Mcg 2 puff INHALATION RT-BID 30 Days 03/05/21 [Symbicort 160-4.5 Mcg Inhaler] #1 gm INSULIN ASPART (NovoLOG) [NovoLOG 10 unit SQ ACHS 30 Days #5 ml 03/05/21 (formulary)] Insulin Glargine,Hum.rec.anlog 55 unit SQ HS@1930 PRN #0 03/05/21 [Lantus Solostar Pen] Ipratropium-Albuterol Nebulize 3 ml INHALATION RT-Q4H PRN ml 03/05/21 [Duoneb 0.5 mg-3 mg/3 ml Soln] predniSONE 10 mg PO DIRECTED #30 tab 03/05/21 predniSONE [Deltasone] 20 mg PO DAILY@0700 #0 03/05/21 Allergies Allergy/AdvReac Type Severity Reaction Status Date / Time acetaminophen [From Tylenol] AdvReac kidney/liver Verified 03/12/21 14:59 issues Review of Systems ROS Statement: Those systems with pertinent positive or pertinent negative responses have been documented in the HPI. ROS Other: All systems not noted in ROS Statement are negative. Constitutional: Reports: fever, chills Eyes: Denies: eye pain ENT: Denies: ear pain Respiratory: Reports: as per HPI, cough, dyspnea Cardiovascular: Denies: chest pain Endocrine: Reports: fatigue Gastrointestinal: Denies: abdominal pain Genitourinary: Denies: dysuria Musculoskeletal: Denies: back pain Skin: Denies: rash Neurological: Denies: weakness Past Medical History Past Medical History: Coronary Artery Disease (CAD), Chest Pain / Angina, Heart Failure, COPD, CVA/TIA, Diabetes Mellitus, Deep Vein Thrombosis (DVT), GERD/Reflux, Hyperlipidemia, Hypertension, Osteoarthritis (OA), Pneumonia, Prostate Disorder, Renal Disease, Respiratory Disorder, Sleep Apnea/CPAP/BIPAP Additional Past Medical History / Comment(s): IDDM type II, neuropathy hands/feet, hx severe sepsis secondary to discitis/osteomylitis, urinary retention with granados during sepsis, Hx DVT R arm/sepsis d/t cellulitis in legs, venous insufficiency, swelling in legs and feet., spondylolsis, cervical, low back and bilateral knee pain, DDD, gout, chronic respiratory failure, CALLI (does not use machine)., nonsustained vtach, TIAs, small vessel disease, BPH, diverticular disease, colon polyps, sinus problems, seasonal allergies, Mixed Connective Tissue Disease .,hallucinations/confusion with sepsis/fever., Pt was hospitalized at [facility] in August for dyspnea, chf & renal failure. History of Any Multi-Drug Resistant Organisms: None Reported Past Surgical History: Back Surgery, Heart Catheterization With Stent, Joint Replacement, Orthopedic Surgery Additional Past Surgical History / Comment(s): Bilateral knee arthroscopies, total L knee arthroplasty, R total shoulder arthroplasty, L hand injury with repair, low back surgery, PCI with 3 stents, colonoscopies/polypectomies, cervical/lumbar epidural injections, cataract removals/lens implants. Past Anesthesia/Blood Transfusion Reactions: No Reported Reaction Additional Past Anesthesia/Blood Transfusion Reaction / Comment(s): STATES "HAD A HARD TIME WITH BREATHING POST OP" Date of Last Stent Placement:: 2009 Past Psychological History: No Psychological Hx Reported Smoking Status: Former smoker Past Alcohol Use History: None Reported Past Drug Use History: Marijuana - Past Family History Father Family Medical History: CVA/TIA, Hyperlipidemia, Hypertension Additional Family Medical History / Comment(s): Father of a CVA at the age of 55 yrs. Mother Family Medical History: No Reported History Additional Family Medical History / Comment(s): Mother lived to be 93 yrs old. General Exam Limitations: no limitations General appearance: alert, in no apparent distress Head exam: Present: normocephalic Eye exam: Present: normal appearance Neck exam: Present: normal inspection Respiratory exam: Present: wheezes, rales Cardiovascular Exam: Present: regular rate, normal rhythm GI/Abdominal exam: Present: soft. Absent: tenderness Extremities exam: Present: normal inspection. Absent: pedal edema, calf tenderness Neurological exam: Present: alert Psychiatric exam: Present: normal affect, normal mood Skin exam: Present: normal color Course Vital Signs 03/12/21 03/12/21 03/12/21 14:59 15:08 15:16 Temperature 98.1 F Pulse Rate 101 H 98 Respiratory 18 18 24 Rate Blood Pressure 138/66 145/75 O2 Sat by Pulse 80 L 93 L Oximetry Medical Decision Making - Medical Decision Making Patient reevaluated. Patient and family updated. Case discussed with Dr. Pizarro, who will admit covering Dr. Keene. - Lab Data Result diagrams: 03/12/21 15:37 03/12/21 15:37 Lab Results 03/12/21 03/12/21 03/12/21 Range/Units 15:37 15:37 15:37 WBC 12.7 H (3.8-10.6) k/uL RBC 3.72 L (4.30-5.90) m/uL Hgb 12.3 L (13.0-17.5) gm/dL Hct 37.6 L (39.0-53.0) % MCV 101.2 H (80.0-100.0) fL MCH 33.1 (25.0-35.0) pg MCHC 32.7 (31.0-37.0) g/dL RDW 15.1 (11.5-15.5) % Plt Count 151 (150-450) k/uL MPV 9.7 Neutrophils % 92 % Lymphocytes % 4 % Monocytes % 3 % Eosinophils % 1 % Basophils % 0 % Neutrophils # 11.6 H (1.3-7.7) k/uL Lymphocytes # 0.6 L (1.0-4.8) k/uL Monocytes # 0.3 (0-1.0) k/uL Eosinophils # 0.1 (0-0.7) k/uL Basophils # 0.0 (0-0.2) k/uL Macrocytosis Slight PT 10.0 (9.0-12.0) sec INR 0.9 (<1.2) APTT 16.3 L (22.0-30.0) sec Sodium (137-145) mmol/L Potassium (3.5-5.1) mmol/L Chloride (98-107) mmol/L Carbon Dioxide (22-30) mmol/L Anion Gap mmol/L BUN (9-20) mg/dL Creatinine (0.66-1.25) mg/dL Est GFR (CKD-EPI)AfAm (>60 ml/min/1.73 sqM) Est GFR (CKD-EPI)NonAf (>60 ml/min/1.73 sqM) Glucose (74-99) mg/dL Plasma Lactic Acid Teo (0.7-2.0) mmol/L Calcium (8.4-10.2) mg/dL Total Bilirubin (0.2-1.3) mg/dL AST (17-59) U/L ALT (4-49) U/L Alkaline Phosphatase (38-126) U/L Troponin I <0.012 (0.000-0.034) ng/mL NT-Pro-B Natriuret Pep pg/mL Total Protein (6.3-8.2) g/dL Albumin (3.5-5.0) g/dL Coronavirus (PCR) (Not Detectd) 03/12/21 03/12/21 03/12/21 Range/Units 15:37 15:37 16:28 WBC (3.8-10.6) k/uL RBC (4.30-5.90) m/uL Hgb (13.0-17.5) gm/dL Hct (39.0-53.0) % MCV (80.0-100.0) fL MCH (25.0-35.0) pg MCHC (31.0-37.0) g/dL RDW (11.5-15.5) % Plt Count (150-450) k/uL MPV Neutrophils % % Lymphocytes % % Monocytes % % Eosinophils % % Basophils % % Neutrophils # (1.3-7.7) k/uL Lymphocytes # (1.0-4.8) k/uL Monocytes # (0-1.0) k/uL Eosinophils # (0-0.7) k/uL Basophils # (0-0.2) k/uL Macrocytosis PT (9.0-12.0) sec INR (<1.2) APTT (22.0-30.0) sec Sodium 136 L (137-145) mmol/L Potassium 4.2 (3.5-5.1) mmol/L Chloride 97 L (98-107) mmol/L Carbon Dioxide 31 H (22-30) mmol/L Anion Gap 8 mmol/L BUN 55 H (9-20) mg/dL Creatinine 1.28 H (0.66-1.25) mg/dL Est GFR (CKD-EPI)AfAm 64 (>60 ml/min/1.73 sqM) Est GFR (CKD-EPI)NonAf 56 (>60 ml/min/1.73 sqM) Glucose 206 H (74-99) mg/dL Plasma Lactic Acid Teo 1.4 (0.7-2.0) mmol/L Calcium 8.1 L (8.4-10.2) mg/dL Total Bilirubin 0.4 (0.2-1.3) mg/dL AST 71 H (17-59) U/L ALT 101 H (4-49) U/L Alkaline Phosphatase 74 (38-126) U/L Troponin I (0.000-0.034) ng/mL NT-Pro-B Natriuret Pep 206 pg/mL Total Protein 5.5 L (6.3-8.2) g/dL Albumin 3.0 L (3.5-5.0) g/dL Coronavirus (PCR) (Not Detectd) 03/12/21 Range/Units 16:28 WBC (3.8-10.6) k/uL RBC (4.30-5.90) m/uL Hgb (13.0-17.5) gm/dL Hct (39.0-53.0) % MCV (80.0-100.0) fL MCH (25.0-35.0) pg MCHC (31.0-37.0) g/dL RDW (11.5-15.5) % Plt Count (150-450) k/uL MPV Neutrophils % % Lymphocytes % % Monocytes % % Eosinophils % % Basophils % % Neutrophils # (1.3-7.7) k/uL Lymphocytes # (1.0-4.8) k/uL Monocytes # (0-1.0) k/uL Eosinophils # (0-0.7) k/uL Basophils # (0-0.2) k/uL Macrocytosis PT (9.0-12.0) sec INR (<1.2) APTT (22.0-30.0) sec Sodium (137-145) mmol/L Potassium (3.5-5.1) mmol/L Chloride (98-107) mmol/L Carbon Dioxide (22-30) mmol/L Anion Gap mmol/L BUN (9-20) mg/dL Creatinine (0.66-1.25) mg/dL Est GFR (CKD-EPI)AfAm (>60 ml/min/1.73 sqM) Est GFR (CKD-EPI)NonAf (>60 ml/min/1.73 sqM) Glucose (74-99) mg/dL Plasma Lactic Acid Teo (0.7-2.0) mmol/L Calcium (8.4-10.2) mg/dL Total Bilirubin (0.2-1.3) mg/dL AST (17-59) U/L ALT (4-49) U/L Alkaline Phosphatase (38-126) U/L Troponin I (0.000-0.034) ng/mL NT-Pro-B Natriuret Pep pg/mL Total Protein (6.3-8.2) g/dL Albumin (3.5-5.0) g/dL Coronavirus (PCR) Detected A (Not Detectd) - Radiology Data Radiology results: image reviewed (Chest x-ray shows diffuse interstitial infiltrates) Disposition Clinical Impression: COPD (chronic obstructive pulmonary disease), COVID-19 Disposition: ADMITTED IP TO THIS [facility] Condition: Serious Is patient prescribed a controlled substance at d/c from ED?: No Referrals: Rk Keene III, MD [Primary Care Provider] - 1-2 days Decision Time: 17:13
[2021-03-12 15:49] LABS: Basophils % (A) 0 %; Eosinophils # (A) 0.1 k/uL (0-0.7); Eosinophils % (A) 1 %; HCT 37.6 % (39.0-53.0); HGB 12.3 gm/dL (13.0-17.5); Lymphocytes # (A) 0.6 k/uL (1.0-4.8); Lymphocytes % (A) 4 %; MCH 33.1 pg (25.0-35.0); MCHC 32.7 g/dL (31.0-37.0); MCV 101.2 fL (80.0-100.0); Macrocytosis Slight; Mean Platelet Volume 9.7; Monocytes # (A) 0.3 k/uL (0-1.0); Monocytes % (A) 3 %; Neutrophils # (A) 11.6 k/uL (1.3-7.7); Neutrophils % (A) 92 %; Platelet Count 151 k/uL (150-450); RBC 3.72 m/uL (4.30-5.90); RDW 15.1 % (11.5-15.5); WBC 12.7 k/uL (3.8-10.6)
[2021-03-12 16:03] LABS: INR 0.9 (<1.2)
[2021-03-12 16:05] LABS: Partial Thromboplastin Time 16.3 sec (22.0-30.0)
[2021-03-12 16:06] LABS: Calcium 8.1 mg/dL (8.4-10.2); Total Bilirubin 0.4 mg/dL (0.2-1.3); Total Protein 5.5 g/dL (6.3-8.2)
[2021-03-12 16:13] LABS: Potassium 4.2 mmol/L (3.5-5.1)
--- NOTE | 2021-03-12 16:29 | XR ---
EXAMINATION TYPE: XR chest 2V DATE OF EXAM: 03/12/2021 COMPARISON: 03/03/2021 HISTORY: 71-year-old male with fever, increased shortness of breath. TECHNIQUE: AP and lateral views FINDINGS: Heart borderline enlarged. Increasing diffuse interstitial and perihilar opacities. No pleural effusi on. Partially visualized right shoulder arthroplasty. IMPRESSION: 1. Borderline heart size. 2. Increasing diffuse interstitial opacity. Correlate to exclude fluid overload/CHF, interstitial pne umonitis, atypical pneumonias, or COVID pneumonia.
[2021-03-12] MEDS ORDERED: ALBUTEROL HFA INHALER INHALATION PRN (17:15)
--- NOTE | 2021-03-12 17:30 | P.HPIM ---
History of Present Illness Patient is a 71-year-old white male with a chronic medical problems a chronic hypoxic respiratory failure uses about 4 L of oxygen at home came in the with complaints of shortness of breath and cough restarted couple days ago was also having fever restarted couple days ago. Patient is found to have COVID-19 patient has multiple other medical problems chronically and patient does have history of COPD possible chronic diastolic dysfunction patient was on IV Lasix in the past. REVIEW OF SYSTEMS: CONSTITUTIONAL: No fever, no malaise, no fatigue. HEENT: No recent visual problems or hearing problems. Denied any sore throat. CARDIOVASCULAR: No chest pain, orthopnea, PND, no palpitations, no syncope. PULMONARY: No shortness of breath, no cough, no hemoptysis. GASTROINTESTINAL: No diarrhea, no nausea, no vomiting, no abdominal pain. NEUROLOGICAL: No headaches, no weakness, no numbness. HEMATOLOGICAL: Denies any bleeding or petechiae. GENITOURINARY: Denies any burning micturition, frequency, or urgency. MUSCULOSKELETAL/RHEUMATOLOGICAL: Denies any joint pain, swelling, or any muscle pain. ENDOCRINE: Denies any polyuria or polydipsia. The rest of the 14-point review of systems is negative. PHYSICAL EXAMINATION: GENERAL: The patient is alert and oriented x3, not in any acute distress. Obesity HEENT: Pupils are round and equally reacting to light. EOMI. No scleral icterus. No conjunctival pallor. Normocephalic, atraumatic. No pharyngeal erythema. No thyromegaly. CARDIOVASCULAR: S1 and S2 present. No murmurs, rubs, or gallops. PULMONARY: Chest is clear to auscultation, no wheezing or crackles. ABDOMEN: Soft, nontender, nondistended, normoactive bowel sounds. No palpable organomegaly. MUSCULOSKELETAL: No joint swelling or deformity. EXTREMITIES: No cyanosis, clubbing, or lower extremity edema NEUROLOGICAL: Gross neurological examination did not reveal any focal deficits. SKIN: No rashes. Assessment and plan Acute on chronic hypoxic respiratory failure secondary to COVID-19 pneumonia pa tient will be started on Decadron patient was started on Remdesivir Covid vitamins. Pulmonology will be consulted -Congestive heart failure chronic diastolic dysfunction without any acute exacerbation at this time patient the BNP is only 28 -Mild transaminitis which is better at compared to his previous aspirations actually improving -Chronic kidney disease stage III Gases revealed reflux disease -Coronary artery disease -Type 2 diabetes mellitus insulin-dependent -Diabetic peripheral neuropathy -Obstructive sleep apnea -Chronic hypoxic respiratory failure Secondary to COPD and the sleep apnea -Benign prostatic hypertrophy -History of mixed connective tissue disorder for which patient is on prednisone 20 mg daily -Chronic low back pain -History of DVT in the past for which patient is on not on any anti-coagulation presently DVT prophylaxis: Subcutaneous heparin Past Medical History Past Medical History: Coronary Artery Disease (CAD), Chest Pain / Angina, Heart Failure, COPD, CVA/TIA, Diabetes Mellitus, Deep Vein Thrombosis (DVT), GERD/Reflux, Hyperlipidemia, Hypertension, Osteoarthritis (OA), Pneumonia, Prostate Disorder, Renal Disease, Respiratory Disorder, Sleep Apnea/CPAP/BIPAP Additional Past Medical History / Comment(s): IDDM type II, neuropathy hands/feet, hx severe sepsis secondary to discitis/osteomylitis, urinary retention with granados during sepsis, Hx DVT R arm/sepsis d/t cellulitis in legs, venous insufficiency, swelling in legs and feet., spondylolsis, cervical, low back and bilateral knee pain, DDD, gout, chronic respiratory failure, CALLI (does not use machine)., nonsustained vtach, TIAs, small vessel disease, BPH, diverticular disease, colon polyps, sinus problems, seasonal allergies, Mixed Connective Tissue Disease .,hallucinations/confusion with sepsis/fever., Pt was hospitalized at [facility] in August for dyspnea, chf & renal failure. History of Any Multi-Drug Resistant Organisms: None Reported Past Surgical History: Back Surgery, Heart Catheterization With Stent, Joint Replacement, Orthopedic Surgery Additional Past Surgical History / Comment(s): Bilateral knee arthroscopies, total L knee arthroplasty, R total shoulder arthroplasty, L hand injury with repair, low back surgery, PCI with 3 stents, colonoscopies/polypectomies, cervical/lumbar epidural injections, cataract removals/lens implants. Past Anesthesia/Blood Transfusion Reactions: No Reported Reaction Additional Past Anesthesia/Blood Transfusion Reaction / Comment(s): STATES "HAD A HARD TIME WITH BREATHING POST OP" Date of Last Stent Placement:: 2009 Past Psychological History: No Psychological Hx Reported Smoking Status: Former smoker Past Alcohol Use History: None Reported Past Drug Use History: Marijuana - Past Family History Father Family Medical History: CVA/TIA, Hyperlipidemia, Hypertension Additional Family Medical History / Comment(s): Father of a CVA at the age of 55 yrs. Mother Family Medical History: No Reported History Additional Family Medical History / Comment(s): Mother lived to be 93 yrs old. Medications and Allergies Home Medications Medication Instructions Recorded Confirmed Type Omeprazole 20 mg PO DAILY@0700 11/23/19 03/02/21 History Tamsulosin [Flomax] 0.4 mg PO DAILY@69911/23/19 03/02/21 History Aspirin EC [Ecotrin Low Dose] 81 mg PO DAILY@69912/09/19 03/02/21 History Colchicine 0.6 mg PO DAILY@69903/23/20 03/02/21 History Magnesium 250 mg PO DAILY@69903/23/20 03/02/21 History Isosorbide Mononitrate [Isosorbide 30 mg PO DAILY@69906/15/20 03/02/21 History Mononitrate ER] Nitroglycerin Sl Tabs [Nitrostat] 0.4 mg SL Q5M PRN 06/15/20 03/02/21 History Ergocalciferol [Vitamin D2 (1250 1,250 mcg PO Q14D 08/21/20 03/02/21 History Mcg = 71254 Iu)] Ipratropium-Albuterol Nebulize 3 ml INHALATION RT-QID 08/21/20 03/02/21 History [Duoneb 0.5 mg-3 mg/3 ml Soln] Albuterol Inhaler [Ventolin Hfa 2 puff INHALATION RT-QID PRN 02/22/21 03/02/21 History Inhaler] Cyclobenzaprine [Flexeril] 10 mg PO TID@0700,1200,0 02/22/21 03/02/21 History Febuxostat [Uloric] 40 mg PO DAILY@0702/22/21 03/02/21 History Ketorolac 0.5% Ophth Soln [Acular 1 drop LEFT EYE QID 02/22/21 03/02/21 History 0.5%] Metoprolol Tartrate [Lopressor] 25 mg PO HS@0 02/22/21 03/02/21 History Metoprolol Tartrate [Lopressor] 50 mg PO DAILY@0702/22/21 03/02/21 History Pramipexole [Mirapex] 1 mg PO HS@1930 02/22/21 03/02/21 History QUEtiapine [SEROquel] 25 mg PO BID@699,192902/22/21 03/02/21 History calcitrioL [Rocaltrol] 0.5 mcg PO TU 02/22/21 03/02/21 History Furosemide [Lasix] 20 mg PO BID@699,1929 #0 02/24/21 03/02/21 Rx hydrALAZINE HCL 50 mg PO TID #0 02/24/21 03/02/21 Rx Azithromycin [Zithromax] 500 mg PO DAILY 2 Days #2 tab 03/05/21 Rx Budesonide-Formot 160-4.5 Mcg 2 puff INHALATION RT-BID 30 Days 03/05/21 Rx [Symbicort 160-4.5 Mcg Inhaler] #1 gm INSULIN ASPART (NovoLOG) [NovoLOG 10 unit SQ ACHS 30 Days #5 ml 03/05/21 Rx (formulary)] Insulin Glargine,Hum.rec.anlog 55 unit SQ HS@1929 PRN #0 03/05/21 03/02/21 Rx [Lantus Solostar Pen] Ipratropium-Albuterol Nebulize 3 ml INHALATION RT-Q4H PRN ml 03/05/21 Rx [Duoneb 0.5 mg-3 mg/3 ml Soln] predniSONE 10 mg PO DIRECTED #30 tab 03/05/21 Rx predniSONE [Deltasone] 20 mg PO DAILY@0700 #0 03/05/21 03/02/21 Rx Allergies Allergy/AdvReac Type Severity Reaction Status Date / Time acetaminophen [From Tylenol] AdvReac kidney/liver Verified 03/12/21 14:59 issues Physical Exam Vitals: Vital Signs Temp Pulse Resp BP Pulse Ox 03/12/21 15:16 98 24 145/75 93 L 03/12/21 15:08 18 03/12/21 14:59 98.1 F 101 H 18 138/66 80 L Intake and Output 03/12/21 03/12/21 03/12/21 06:59 14:59 22:59 Other: Weight 105.687 kg Results CBC & Chem 7: 03/12/21 15:37 03/12/21 15:37 Labs: Abnormal Lab Results - Last 24 Hours (Table) 03/12/21 03/12/21 03/12/21 Range/Units 15:37 15:37 15:37 WBC 12.7 H (3.8-10.6) k/uL RBC 3.72 L (4.30-5.90) m/uL Hgb 12.3 L (13.0-17.5) gm/dL Hct 37.6 L (39.0-53.0) % MCV 101.2 H (80.0-100.0) fL Neutrophils # 11.6 H (1.3-7.7) k/uL Lymphocytes # 0.6 L (1.0-4.8) k/uL APTT 16.3 L (22.0-30.0) sec Sodium 136 L (137-145) mmol/L Chloride 97 L (98-107) mmol/L Carbon Dioxide 31 H (22-30) mmol/L BUN 55 H (9-20) mg/dL Creatinine 1.28 H (0.66-1.25) mg/dL Glucose 206 H (74-99) mg/dL Calcium 8.1 L (8.4-10.2) mg/dL AST 71 H (17-59) U/L ALT 101 H (4-49) U/L Total Protein 5.5 L (6.3-8.2) g/dL Albumin 3.0 L (3.5-5.0) g/dL Coronavirus (PCR) (Not Detectd) 03/12/21 Range/Units 16:28 WBC (3.8-10.6) k/uL RBC (4.30-5.90) m/uL Hgb (13.0-17.5) gm/dL Hct (39.0-53.0) % MCV (80.0-100.0) fL Neutrophils # (1.3-7.7) k/uL Lymphocytes # (1.0-4.8) k/uL APTT (22.0-30.0) sec Sodium (137-145) mmol/L Chloride (98-107) mmol/L Carbon Dioxide (22-30) mmol/L BUN (9-20) mg/dL Creatinine (0.66-1.25) mg/dL Glucose (74-99) mg/dL Calcium (8.4-10.2) mg/dL AST (17-59) U/L ALT (4-49) U/L Total Protein (6.3-8.2) g/dL Albumin (3.5-5.0) g/dL Coronavirus (PCR) Detected A (Not Detectd)
[2021-03-12] MEDS ORDERED: DEXAMETHASONE SOD PHOSPHATE 10 MG/ML 1 ML VIAL IVP SCH (18:00)
[2021-03-12] MEDS ORDERED: ZINC SULFATE 220 MG CAP PO SCH (18:00)
[2021-03-12] MEDS: dexAMETHasone 2 MG TAB PO SCH (19:21)
[2021-03-12] MEDS: CHOLECALCIFEROL 125 MCG (5000 IU) TABLET PO SCH (19:21)
[2021-03-12] MEDS: ZINC SULFATE 220 MG CAP PO SCH (19:21)
[2021-03-12] MEDS: ALBUTEROL HFA INHALER INHALATION SCH (20:21)
[2021-03-12] MEDS ORDERED: ASCORBIC ACID 500 MG TAB PO SCH (21:00)
[2021-03-12] MEDS ORDERED: INSULIN DETEMIR (LEVEMIR) 100 UNIT/ML SYR SQ PRN (22:00)
[2021-03-12] MEDS: HEPARIN SODIUM,PORCINE/PF 5,000 UNIT/0.5 ML SYRINGE SQ SCH (22:21)
[2021-03-12] MEDS: KETOROLAC 0.5% OPHTH DROPS 5 ML BTL LEFT EYE SCH (22:21)
[2021-03-12] MEDS: FAMOTIDINE 20 MG TAB PO SCH (22:21)
[2021-03-12] MEDS: ASCORBIC ACID 500 MG TAB PO SCH (22:21)
[2021-03-13 07:20] LABS: Glucose,Whole Blood 130 mg/dL (75-99)
[2021-03-13] MEDS: ALBUTEROL HFA INHALER INHALATION SCH ×4 (08:00→20:12)
[2021-03-13] MEDS: SYMBICORT 160-4.5 MCG INHALER INHALATION SCH ×2 (08:01→20:12)
[2021-03-13] MEDS: INSULIN ASPART (NovoLOG) 100 UNIT/ML VIAL SQ SCH ×8 (08:11→21:18)
[2021-03-13] MEDS: HEPARIN SODIUM,PORCINE/PF 5,000 UNIT/0.5 ML SYRINGE SQ SCH (08:19)
[2021-03-13] MEDS: KETOROLAC 0.5% OPHTH DROPS 5 ML BTL LEFT EYE SCH ×4 (08:19→21:17)
[2021-03-13] MEDS: METOPROLOL TARTRATE 50 MG TAB PO SCH (08:20)
[2021-03-13] MEDS: FAMOTIDINE 20 MG TAB PO SCH ×2 (08:20→21:16)
[2021-03-13] MEDS: ASPIRIN 81 MG PO SCH (08:20)
[2021-03-13] MEDS: ASCORBIC ACID 500 MG TAB PO SCH ×2 (08:20→21:16)
[2021-03-13] MEDS: CHOLECALCIFEROL 125 MCG (5000 IU) TABLET PO SCH (08:20)
[2021-03-13] MEDS: ZINC SULFATE 220 MG CAP PO SCH (08:20)
[2021-03-13] MEDS: dexAMETHasone 2 MG TAB PO SCH ×2 (08:20→21:16)
[2021-03-13] MEDS: QUEtiapine 25 MG TAB PO SCH ×2 (08:20→21:16)
[2021-03-13] MEDS: TAMSULOSIN 0.4 MG CAP.ER.24H PO SCH (08:21)
--- NOTE | 2021-03-13 10:56 | CDI ---
Documentation Clarification Form Date: 03/13/2021 10:42:08 AM From: Génesis Durham CCS, CCDS Admit Date: 03/12/2021 05:13:00 PM Patient Name: Rogers Morley Visit Number: [id number] Discharge Date: ATTENTION: The Clinical Documentation Specialists (CDI) and [facility] Coding Staff appreciate your assistance in clarifying documentation. Please respond to the clarification below the line at the bottom and electronically sign. The CDI & [facility] Coding staff will review the response and follow-up if needed. Please note: Queries are made part of the Legal Health Record. If you have any questions, please contact the author of this message via ITS. Dr. Dax Pizarro: The patient presented with the following clinical indicators: SOB, Cough, Fever 101.7 at home. Additional clarification regarding the etiology/cause of the clinical indicators is requested. History/Risk Factors Per the 03/12 History & Physical: CAD w/stent, Hypertension, CKD III, DM II w/Neuropathy, CALLI, Chronic Hypoxic Respiratory Failure, COPD & Sleep Apnea on Home O2 4Lnc, Former smoker, Chronic Diastolic CHF and History of DVT not currently on anticoagulation. Clinical Indicators: Presented to the ED on 03/12 via EMS with the above symptoms. Admitted with COPD & COVID-19 H/P Assessment: Acute on chronic hypoxic respiratory failure secondary to COVID- 19 Pneumonia. Chronic diastolic CHF not in exacerbation. Mild transaminitis. 03/12 VS: T 98.1, P 101, R 18 - 24 (sob, cough, persistent dyspnea, prefers sitting), BP 138/66, PO 80 4Lnc - 6Lnc - 93 6Lnc - 85 6Lnc. BMI: 36.5 03/12 LAB: WBC 12.7, Hgb 12.3, Hct 37.6, Neutrophils 11.6, Lymphocytes 0.6; APTT 16.3, D Dimer 5.97; Na 136, Chloride 97, CO2 31, BUN 55, Cr 1.28, Glucose 206, Calcium 8.1, AST 71, ALT 101, BNP 206, Total protein 5.5, Albumin 3.0. 03/12 COVID Positive 03/12 Influenza Type A/B: Negative 03/12 CXR: Borderline heart size. Increasing diffuse interstitial opacity. Correlate to exclude fluid overload/CHF, interstitial pneumonitis, atypical pneumonias, or COVID pneumonia. 03/12 EKG: R 96 nsr. Treatment 03/12: Glucose Monitoring, Insulin sliding scale, Blood cultures x2, Pulmonary Consult (Pending), O2, INH Ventolin QID/prn, Hexadrol 6 mg daily, Orazinc 220 mg daily, Vit D3 125 mcg daily, Vit C 500 mg BID, Heparin sq q12Hr. Per H/P: IV Remdesivir ordered, not started. In your professional opinion, please clarify if these findings signify one of the following conditions: [ x ] Sepsis POA [ ] Sepsis, Not POA [ ] Severe Sepsis with organ failure [ ] Other, please specify [ ] Unable to determine SIRS Criteria: 2 or more of the following may indicate SIRS -Temperature < 96.8F (36C) or > 101.0F (38.3C) -Heart Rate > 90 bpm -Respiratory Rate > 20 breaths/min or PaCO2 < 32 mmHg -White Blood Cell Count > 12,000 or < 4,000 cells/mm3 or > 10% bands (Template Last Reviewed: April 2020) MTDD
[2021-03-13 11:22] LABS: HCT 41.1 % (39.6-50.0); HGB 12.3 g/dL (13.0-17.0); MCH 31.8 pg (27.0-32.0); MCHC 29.9 g/dL (32.0-37.0); MCV 106.2 fL (80.0-97.0); Mean Platelet Volume 12.3 fL (9.5-12.2); Platelet Count 190 X 10*3/uL (140-440); RBC 3.87 X 10*6/uL (4.40-5.60); RDW 15.9 % (11.5-14.5); WBC 13.08 X 10*3/uL (4.50-10.00)
[2021-03-13 11:30] LABS: African American GFR (CKD) 66.9 (60.0-200.0); Albumin 3.2 g/dL (3.8-4.9); Albumin/Globulin Ratio 1.53 (1.60-3.17); Anion Gap 15.3 mmol/L (10.00-18.00); BUN/Creat Ratio 32.18 Ratio (12.00-20.00); Blood Urea Nitrogen 39.9 mg/dL (9.0-27.0); Calcium 8.5 mg/dL (8.7-10.3); Carbon Dioxide 27.1 mmol/L (20.0-27.5); Globulin 2.1 g/dL (1.6-3.3); Non-African American GFR(CKD) 57.7 (60.0-200.0); Total Bilirubin 0.2 mg/dL (0.30-1.20); Total Protein 5.3 g/dL (6.2-8.2)
[2021-03-13 11:43] LABS: Glucose,Whole Blood 117 mg/dL (75-99)
[2021-03-13] MEDS ORDERED: REMDESIVIR 200 MG in SODIUM CHLORIDE 0.9% 250 ML IVPB ONE (13:00)
--- NOTE | 2021-03-13 14:44 | P.CNPUL ---
History of Present Illness Consult date: 03/13/21 Requesting physician: Isabell Huertas Reason for consult: dyspnea Chief complaint: Dyspnea History of present illness: This 71-year-old white male patient who follows with Dr. Torres in the pulmonary clinic for his history of advanced COPD on home oxygen patient usually wears 4 L on a regular basis, he is prednisone dependent and usually takes 20 mg on a regular basis, coronary artery disease, diabetes mellitus type 2, previous history of CVA, hypertension, hyperlipidemia, previous history of pneumonia, chronic kidney disease unspecified, sleep apnea, BPH, osteoarthritis. Patient presented to the emergency department on 03/12/2021 for evaluation of worsening dyspnea. Patient had a fever at home up to 101.7F. He saw Dr. Torres on Friday03/09/2021 and his antibiotics were changed. Patient was also given a prednisone taper and was placed on Levaquin. Has chronic swelling in his lower extremities which is unchanged. Of note patient was tested for COVID-19 on 03/02/2021 and was found to be negative. During this visit to the ED he tested positive on 03/12/2021. Patient has been vaccinated against COVID-19. His chest x-ray shows increasing diffuse interstitial opacity, with the possibility of fluid overload/CHF, interstitial pneumonitis, atypical pneumonia or chronic pneumonia. His blood work on admission has been reviewed showing white blood cell count of 12.7, hemoglobin of 12.3, his INR 0.9, sodium is 136, potassium is 4.2, chloride is 97, CO2 31, BUN is 55, creatinine is 1.28, troponin is less than 0.012, proBNP is within normal limits at 206. Patient has been started on Decadron 6 blood gram daily which we will increase to twice daily, he was placed on albuterol and Symbicort, he is on subcutaneous heparin 5000 units every 12 hours, and the patient is within the window for Remdesivir which she will be started on today. Review of Systems All systems: negative Constitutional: Denies chills, Denies fever Eyes: denies blurred vision, denies pain Ears, nose, mouth and throat: Denies headache, Denies sore throat Cardiovascular: Denies chest pain, Denies shortness of breath Respiratory: Reports cough, Reports dyspnea Gastrointestinal: Denies abdominal pain, Denies diarrhea, Denies nausea, Denies vomiting Musculoskeletal: Denies myalgias Integumentary: Denies pruritus, Denies rash Neurological: Denies numbness, Denies weakness Psychiatric: Denies anxiety, Denies depression Endocrine: Denies fatigue, Denies weight change Past Medical History Past Medical History: Coronary Artery Disease (CAD), Chest Pain / Angina, Heart Failure, COPD, CVA/TIA, Diabetes Mellitus, Deep Vein Thrombosis (DVT), GERD/R eflux, Hyperlipidemia, Hypertension, Osteoarthritis (OA), Pneumonia, Prostate Disorder, Renal Disease, Respiratory Disorder, Sleep Apnea/CPAP/BIPAP Additional Past Medical History / Comment(s): IDDM type II, neuropathy hands/feet, hx severe sepsis secondary to discitis/osteomylitis, urinary retention with granados during sepsis, Hx DVT R arm/sepsis d/t cellulitis in legs, venous insufficiency, swelling in legs and feet., spondylolsis, cervical, low back and bilateral knee pain, DDD, gout, chronic respiratory failure, CALLI (does not use machine)., nonsustained vtach, TIAs, small vessel disease, BPH, diverticular disease, colon polyps, sinus problems, seasonal allergies, Mixed Connective Tissue Disease .,hallucinations/confusion with sepsis/fever., Pt was hospitalized at [facility] in August for dyspnea, chf & renal failure. History of Any Multi-Drug Resistant Organisms: None Reported Past Surgical History: Back Surgery, Heart Catheterization With Stent, Joint Replacement, Orthopedic Surgery Additional Past Surgical History / Comment(s): Bilateral knee arthroscopies, total L knee arthroplasty, R total shoulder arthroplasty, L hand injury with repair, low back surgery, PCI with 3 stents, colonoscopies/polypectomies, cervical/lumbar epidural injections, cataract removals/lens implants. Past Anesthesia/Blood Transfusion Reactions: No Reported Reaction Additional Past Anesthesia/Blood Transfusion Reaction / Comment(s): STATES "HAD A HARD TIME WITH BREATHING POST OP" Date of Last Stent Placement:: 2009 Past Psychological History: No Psychological Hx Reported Additional Psychological History / Comment(s): Pt resides with his spouse. He states he had [facility] home care, a nurse that came out once a week but thinks they are done now. Pt states he uses no assistive device and normally can drive. He served in the [employer]. He has home oxygen, cpap, and glucometer. Smoking Status: Former smoker Past Alcohol Use History: None Reported Additional Past Alcohol Use History / Comment(s): QUIT SMOKING IN 2009, STARTED 1961, SMOKED 2 PPD Past Drug Use History: Marijuana Additional Drug Use History / Comment(s): In the past pt tried marijuana gummies-did not help. - Past Family History Father Family Medical History: CVA/TIA, Hyperlipidemia, Hypertension Additional Family Medical History / Comment(s): Father of a CVA at the age of 55 yrs. Mother Family Medical History: No Reported History Additional Family Medical History / Comment(s): Mother lived to be 93 yrs old. Medications and Allergies Home Medications Medication Instructions Recorded Confirmed Type Omeprazole 20 mg PO DAILY@0700 11/23/19 03/12/21 History Tamsulosin [Flomax] 0.4 mg PO DAILY@0700 11/23/19 03/12/21 History Aspirin EC [Ecotrin Low Dose] 81 mg PO DAILY@0700 12/09/19 03/12/21 History Colchicine 0.6 mg PO DAILY@0703/23/20 03/12/21 History Magnesium 250 mg PO DAILY@0703/23/20 03/12/21 History Isosorbide Mononitrate [Isosorbide 30 mg PO DAILY@0700 06/15/20 03/12/21 History Mononitrate ER] Nitroglycerin Sl Tabs [Nitrostat] 0.4 mg SL Q5M PRN 06/15/20 03/12/21 History Ergocalciferol [Vitamin D2 (1250 1,250 mcg PO Q14D 08/21/20 03/12/21 History Mcg = 55287 Iu)] Albuterol Inhaler [Ventolin Hfa 2 puff INHALATION RT-QID PRN 02/22/21 03/12/21 History Inhaler] Cyclobenzaprine [Flexeril] 10 mg PO TID@0700,1200,192902/22/21 03/12/21 History Febuxostat [Uloric] 40 mg PO DAILY@0700 02/22/21 03/12/21 History Ketorolac 0.5% Ophth Soln [Acular 1 drop LEFT EYE QID 02/22/21 03/12/21 History 0.5%] Metoprolol Tartrate [Lopressor] 25 mg PO HS@192902/22/21 03/12/21 History Metoprolol Tartrate [Lopressor] 50 mg PO DAILY@0700 02/22/21 03/12/21 History Pramipexole [Mirapex] 1 mg PO HS@1930 02/22/21 03/12/21 History QUEtiapine [SEROquel] 25 mg PO BID@0700,1930 02/22/21 03/12/21 History calcitrioL [Rocaltrol] 0.5 mcg PO TU 02/22/21 03/12/21 History Furosemide [Lasix] 20 mg PO BID@699,1929 #0 02/24/21 03/12/21 Rx hydrALAZINE HCL 50 mg PO TID #0 02/24/21 03/12/21 Rx Budesonide-Formot 160-4.5 Mcg 2 puff INHALATION RT-BID 30 Days 03/05/21 03/12/21 Rx [Symbicort 160-4.5 Mcg Inhaler] #1 gm INSULIN ASPART (NovoLOG) [NovoLOG 10 unit SQ ACHS 30 Days #5 ml 03/05/21 03/12/21 Rx (formulary)] Insulin Glargine,Hum.rec.anlog 55 unit SQ HS@1929 PRN #0 03/05/21 03/12/21 Rx [Lantus Solostar Pen] Ipratropium-Albuterol Nebulize 3 ml INHALATION RT-Q4H PRN ml 03/05/21 03/12/21 Rx [Duoneb 0.5 mg-3 mg/3 ml Soln] predniSONE [Deltasone] 20 mg PO DAILY@0700 #0 03/05/21 03/12/21 Rx Levofloxacin [Levaquin] 500 mg PO DAILY 03/12/21 03/12/21 History predniSONE See Taper PO DAILY 03/12/21 03/12/21 History Allergies Allergy/AdvReac Type Severity Reaction Status Date / Time acetaminophen [From Tylenol] AdvReac kidney/liver Verified 03/12/21 20:16 issues Physical Exam Vitals: Vital Signs Temp Pulse Pulse Resp BP BP Pulse Ox 03/13/21 10:00 97.7 F 77 24 152/88 93 L 03/13/21 08:22 77 24 03/13/21 08:03 88 L 03/13/21 05:09 97.5 F L 82 20 156/85 90 L 03/13/21 01:25 98.0 F 93 20 147/77 92 L 03/12/21 21:01 98.0 F 88 22 134/72 85 L 03/12/21 15:16 98 24 145/75 93 L 03/12/21 15:08 18 03/12/21 14:59 98.1 F 101 H 18 138/66 80 L Intake and Output 03/12/21 03/13/21 03/13/21 22:59 06:59 14:59 Intake Total 200 Balance 200 Intake: Oral 200 Other: # Voids 2 Weight 105.687 kg GENERAL EXAM: Alert, very pleasant, 71-year-old white male, currently on 7 L of oxygen a pulse ox of 93%, comfortable in no apparent distress. HEAD: Normocephalic/atraumatic. EYES: Normal reaction of pupils, equal size. Conjunctiva pink, sclera white. NOSE: Clear with pink turbinates. THROAT: No erythema or exudates. NECK: No masses, no JVD, no thyroid enlargement, no adenopathy. CHEST: No chest wall deformity. Symmetrical expansion. LUNGS: Equal air entry with diffuse crackles, and a few rhonchi CVS: Regular rate and rhythm, normal S1 and S2, no gallops, no murmurs, no rubs ABDOMEN: Soft, nontender. No hepatosplenomegaly, normal bowel sounds, no guarding or rigidity. EXTREMITIES: No clubbing, plus lower extremity edema with chronic venous stasis, no cyanosis, 2+ pulses and upper and lower extremities. MUSCULOSKELETAL: Muscle strength and tone normal. SPINE: No scoliosis or deformity SKIN: No rashes CENTRAL NERVOUS SYSTEM: Alert and oriented -3. No focal deficits, tone is normal in all 4 extremities. PSYCHIATRIC: Alert and oriented -3. Appropriate affect. Intact judgment and insight. Results - Laboratory Findings CBC and BMP: 03/13/21 06:24 03/13/21 06:24 PT/INR, D-dimer PT 10.0 sec (9.0-12.0) 03/12/21 15:37 INR 0.9 (<1.2) 03/12/21 15:37 D-Dimer 5.97 mg/L FEU (<0.60) H 03/12/21 17:41 Abnormal lab findings: Abnormal Labs 03/12/21 03/12/21 03/12/21 15:37 15:37 15:37 WBC 12.7 H RBC 3.72 L Hgb 12.3 L Hct 37.6 L MCV 101.2 H MCHC RDW MPV Neutrophils # 11.6 H Lymphocytes # 0.6 L APTT 16.3 L D-Dimer Sodium 136 L Chloride 97 L Carbon Dioxide 31 H BUN 55 H Creatinine 1.28 H Est GFR (CKD-EPI)NonAf BUN/Creatinine Ratio Glucose 206 H POC Glucose (mg/dL) Calcium 8.1 L Total Bilirubin AST 71 H ALT 101 H Total Protein 5.5 L Albumin 3.0 L Albumin/Globulin Ratio Coronavirus (PCR) 03/12/21 03/12/21 03/13/21 16:28 17:41 06:24 WBC 13.08 H RBC 3.87 L Hgb 12.3 L Hct MCV 106.2 H MCHC 29.9 L RDW 15.9 H MPV 12.3 H Neutrophils # Lymphocytes # APTT D-Dimer 5.97 H Sodium Chloride Carbon Dioxide BUN Creatinine Est GFR (CKD-EPI)NonAf BUN/Creatinine Ratio Glucose POC Glucose (mg/dL) Calcium Total Bilirubin AST ALT Total Protein Albumin Albumin/Globulin Ratio Coronavirus (PCR) Detected A 03/13/21 03/13/21 03/13/21 06:24 07:19 11:41 WBC RBC Hgb Hct MCV MCHC RDW MPV Neutrophils # Lymphocytes # APTT D-Dimer Sodium Chloride Carbon Dioxide BUN 39.9 H Creatinine Est GFR (CKD-EPI)NonAf 57.7 L BUN/Creatinine Ratio 32.18 H Glucose 141 H POC Glucose (mg/dL) 130 H 117 H Calcium 8.5 L Total Bilirubin 0.20 L AST 55 H ALT 94 H Total Protein 5.3 L Albumin 3.2 L Albumin/Globulin Ratio 1.53 L Coronavirus (PCR) - Diagnostic Findings Chest x-ray: report reviewed, image reviewed Assessment and Plan Plan: Assessment: #1. Acute on chronic hypoxic respiratory failure related to acute COVID-19 related pneumonia, patient tested positive on 03/12/2021. Patient is vaccinated against COVID-19. His symptoms have worsened over last week, patient will be started on Remdesivir today on 03/13/2021 #2. Acute exacerbation of COPD #3. Chronic COPD, advanced, with a baseline FEV1 of 1.71 L or FEV1 of 58% usually on home oxygen at 4 L #4. Recent 2 hospitalizations for acute exacerbation of COPD in early February, during which patient tested negative for COVID-19, urinalysis was also negative, influenza A and B were negative #5. Diabetes mellitus type 2 #6. Hypertension, #7. Hyperlipidemia #8. History of coronary artery disease with previous stenting #9. History of CHF, unspecified #10. History of CVA/TIA #11. Osteoarthritis #12. Chronic knee disease, unspecified #13. Chronic venous insufficiency #14. 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 Sleep apnea does not wear CPAP #17. Marijuana use #18. Elevated d-dimer related to acute COVID-19 infection, we'll obtain lower extremity Dopplers and will consider CT angiogram of the chest Plan: We'll start the patient on Remdesivir Increase his Decadron to twice daily Continue COVID-19 vitamins D-dimer is significantly elevated, we will obtain lower extremity Dopplers Was switched to Lovenox for now at 40 mg daily We'll continue to follow his clinical course and make recommendations accordingly I performed a history & physical examination of the patient and discussed their management with my nurse practitioner, Skylar Mckoy. I reviewed the nurse practitioner's note and agree with the documented findings and plan of care. Lung sounds are positive for crackles and rhonchi throughout the lung kimball. The findings and the impression was discussed with the patient. I attest to the documentation by the nurse practitioner. Time with Patient: Greater than 30
--- NOTE | 2021-03-13 15:54 | US ---
EXAMINATION TYPE: US venous doppler duplex LE DATE OF EXAM: 03/13/2021 3:31 PM COMPARISON: NONE CLINICAL HISTORY: elevated d-dimer. Sob, pain SIDE PERFORMED: Bilateral TECHNIQUE: The lower extremity deep venous system is examined utilizing real time linear array sonog althea with graded compression, doppler sonography and color-flow sonography. VESSELS IMAGED: Common Femoral Vein Deep Femoral Vein Greater Saphenous Vein * Femoral Vein Popliteal Vein Small Saphenous Vein * Proximal Calf Veins (* superficial vessels) Duplicated bilateral prox Femoral Veins There is normal flow, compressibility, vascular waveforms. Right Leg: Negative for DVT Left Leg: Negative for DVT IMPRESSION: No evident deep venous thrombosis within the lower extremities from the level of the knee centrally
[2021-03-13 16:40] LABS: Glucose,Whole Blood 288 mg/dL (75-99)
[2021-03-13] MEDS: ENOXAPARIN 40 MG/0.4 ML SYRINGE SQ SCH (16:55)
[2021-03-13 18:50] LABS: C Reactive Protein 13.6 mg/dL (0.00-0.80)
[2021-03-13 20:50] LABS: Glucose,Whole Blood 177 mg/dL (75-99)
[2021-03-13] MEDS ORDERED: FUROSEMIDE 40 MG TAB PO SCH (21:00)
[2021-03-13] MEDS: PRAMIPEXOLE 1 MG TAB PO SCH (21:16)
[2021-03-13] MEDS: METOPROLOL TARTRATE 25 MG TAB PO SCH (21:16)
[2021-03-13] MEDS: FUROSEMIDE 20 MG TAB PO SCH (21:16)
--- NOTE | 2021-03-13 21:46 | P.PN ---
Subjective Progress Note Date: 03/13/21 Patient is a 71-year-old white male with a chronic medical problems a chronic hypoxic respiratory failure uses about 4 L of oxygen at home came in the with complaints of shortness of breath and cough restarted couple days ago was also having fever restarted couple days ago. Patient is found to have COVID-19 patient has multiple other medical problems chronically and patient does have history of COPD possible chronic diastolic dysfunction patient was on IV Lasix in the past. 03/13/2021 Patient evaluated today sitting on the edge of the bed. He is requiring oxygen at 7L HF with a saturation of 91%. Blood pressure 148/76, heart rate 74, temp 98.2. Labs today include WBC of 13.08, hgb 12.3, sodium 143, potassium 4.0, AST 55, ALT 94, LDH 526, CRP 13.60. DD 5.97, doppler negative for bilateral DVT. P ulmonary consultation today who increased decadron to twice a day and started the patient on remdesivir. Patient is also on subcu heparin, zinc, vitamins. ROS Constitutional: Denied any fatigue denied any fever. Cardio vascular: denied any chest pain, palpitations Gastrointestinal denied any nausea vomiting Pulmonary: Reports cough, non productive, reports shortness of breath, more with exertion Neurologic denied any new focal deficits All inpatient medications were reviewed and appropriate changes in these medications as dictated in the interval history and assessment and plan. PHYSICAL EXAMINATION: GENERAL: The patient is alert and oriented x3, not in any acute distress. Obesity HEENT: Pupils are round and equally reacting to light. EOMI. No scleral icterus. No conjunctival pallor. Normocephalic, atraumatic. No pharyngeal erythema. No thyromegaly. CARDIOVASCULAR: S1 and S2 present. No murmurs, rubs, or gallops. PULMONARY: Coarse scattered rhonchi throughout ABDOMEN: Soft, nontender, nondistended, normoactive bowel sounds. No palpable organomegaly. MUSCULOSKELETAL: No joint swelling or deformity. EXTREMITIES: No cyanosis, clubbing, or lower extremity edema NEUROLOGICAL: Gross neurological examination did not reveal any focal deficits. SKIN: No rashes. Assessment and plan -Acute on chronic hypoxic respiratory failure secondary to COVID-19 pneumonia requiring 7L oxygen via HF nasal cannula, patient does wear 4L of oxygen at home. -Congestive heart failure chronic diastolic dysfunction without any acute exacerbation at this time patient the BNP is only 206 -Acute COPD exacerbation -Mild transaminitis which is better at compared to his previous admission -Elevated inflammatory markers of COVID-19 -Elevated DD secondary to COVID-19 infection, doppler negative for bilateral DVT -Chronic kidney disease stage III -Gastroesophageal reflux disease -Coronary artery disease -Type 2 diabetes mellitus insulin-dependent -Diabetic peripheral neuropathy -Obstructive sleep apnea -Chronic hypoxic respiratory failure Secondary to COPD and the sleep apnea -Hypertension -Hyperlipidemia -Benign prostatic hypertrophy -History of mixed connective tissue disorder for which patient is on prednisone 20 mg daily -Chronic low back pain -History of DVT in the past for which patient is on not on any anti-coagulation presently DVT prophylaxis: Lovenox GI Prophylaxis: Plan Continue decadron, zinc, vitamins, remdesivir, lovenox Continue bronchodilators Insulin coverage, will made adjustments as needed for glycemic control Continue all other supportive care Prognosis is guarded for this patient. Objective - Vital Signs Vital signs: Vital Signs Temp 97.5 F L 03/13/21 05:09 Pulse 82 03/13/21 05:09 Resp 20 03/13/21 05:09 BP 156/85 03/13/21 05:09 Pulse Ox 88 L 03/13/21 08:03 Intake & Output 03/12/21 03/13/21 03/13/21 18:59 06:59 18:59 Intake Total 200 Balance 200 Weight 105.687 kg 105.687 kg Intake: Oral 200 Other: # Voids 2 - Labs CBC & Chem 7: 03/13/21 06:24 03/13/21 06:24 Labs: Abnormal Lab Results - Last 24 Hours (Table) 03/12/21 03/12/21 03/12/21 Range/Units 15:37 15:37 15:37 WBC 12.7 H (3.8-10.6) k/uL RBC 3.72 L (4.30-5.90) m/uL Hgb 12.3 L (13.0-17.5) gm/dL Hct 37.6 L (39.0-53.0) % MCV 101.2 H (80.0-100.0) fL Neutrophils # 11.6 H (1.3-7.7) k/uL Lymphocytes # 0.6 L (1.0-4.8) k/uL APTT 16.3 L (22.0-30.0) sec D-Dimer (<0.60) mg/L FEU Sodium 136 L (137-145) mmol/L Chloride 97 L (98-107) mmol/L Carbon Dioxide 31 H (22-30) mmol/L BUN 55 H (9-20) mg/dL Creatinine 1.28 H (0.66-1.25) mg/dL Glucose 206 H (74-99) mg/dL POC Glucose (mg/dL) (75-99) mg/dL Calcium 8.1 L (8.4-10.2) mg/dL AST 71 H (17-59) U/L ALT 101 H (4-49) U/L Total Protein 5.5 L (6.3-8.2) g/dL Albumin 3.0 L (3.5-5.0) g/dL Coronavirus (PCR) (Not Detectd) 03/12/21 03/12/21 03/13/21 Range/Units 16:28 17:41 07:19 WBC (3.8-10.6) k/uL RBC (4.30-5.90) m/uL Hgb (13.0-17.5) gm/dL Hct (39.0-53.0) % MCV (80.0-100.0) fL Neutrophils # (1.3-7.7) k/uL Lymphocytes # (1.0-4.8) k/uL APTT (22.0-30.0) sec D-Dimer 5.97 H (<0.60) mg/L FEU Sodium (137-145) mmol/L Chloride (98-107) mmol/L Carbon Dioxide (22-30) mmol/L BUN (9-20) mg/dL Creatinine (0.66-1.25) mg/dL Glucose (74-99) mg/dL POC Glucose (mg/dL) 130 H (75-99) mg/dL Calcium (8.4-10.2) mg/dL AST (17-59) U/L ALT (4-49) U/L Total Protein (6.3-8.2) g/dL Albumin (3.5-5.0) g/dL Coronavirus (PCR) Detected A (Not Detectd)
[2021-03-14 07:17] LABS: Glucose,Whole Blood 77 mg/dL (75-99)
[2021-03-14] MEDS: ALBUTEROL HFA INHALER INHALATION SCH ×4 (07:18→19:53)
[2021-03-14] MEDS: SYMBICORT 160-4.5 MCG INHALER INHALATION SCH ×2 (07:18→19:53)
[2021-03-14] MEDS: INSULIN ASPART (NovoLOG) 100 UNIT/ML VIAL SQ SCH ×8 (08:10→22:37)
[2021-03-14] MEDS: METOPROLOL TARTRATE 50 MG TAB PO SCH (08:15)
[2021-03-14] MEDS: dexAMETHasone 2 MG TAB PO SCH ×2 (08:15→22:36)
[2021-03-14] MEDS: FAMOTIDINE 20 MG TAB PO SCH ×2 (08:16→22:36)
[2021-03-14] MEDS: ISOSORBIDE MONONITRATE ER 30 MG TAB.ER.24H PO SCH (08:16)
[2021-03-14] MEDS: ASPIRIN 81 MG PO SCH (08:16)
[2021-03-14] MEDS: ZINC SULFATE 220 MG CAP PO SCH (08:16)
[2021-03-14] MEDS: QUEtiapine 25 MG TAB PO SCH ×2 (08:16→22:36)
[2021-03-14] MEDS: ASCORBIC ACID 500 MG TAB PO SCH ×2 (08:16→22:36)
[2021-03-14] MEDS: allopurinoL 100 MG TAB PO SCH (08:16)
[2021-03-14] MEDS: TAMSULOSIN 0.4 MG CAP.ER.24H PO SCH (08:16)
[2021-03-14] MEDS: CHOLECALCIFEROL 125 MCG (5000 IU) TABLET PO SCH (08:17)
[2021-03-14] MEDS: FUROSEMIDE 20 MG TAB PO SCH (08:17)
[2021-03-14] MEDS: MAGNESIUM OXIDE 400 MG TAB PO SCH (08:17)
[2021-03-14] MEDS: ENOXAPARIN 40 MG/0.4 ML SYRINGE SQ SCH (08:18)
[2021-03-14] MEDS: COLCHICINE 0.6 MG EACH PO SCH (08:18)
[2021-03-14] MEDS: KETOROLAC 0.5% OPHTH DROPS 5 ML BTL LEFT EYE SCH ×2 (08:20→12:04)
[2021-03-14 10:53] LABS: Basophils # (A) 0.03 X 10*3/uL (0.00-0.10); Basophils % (A) 0.2 %; Eosinophils # (A) 0 X 10*3/uL (0.04-0.35); Eosinophils % (A) 0 %; HCT 41.9 % (39.6-50.0); HGB 12.8 g/dL (13.0-17.0); Lymphocytes # (A) 0.79 X 10*3/uL (0.90-5.00); Lymphocytes % (A) 4.6 %; MCH 31.8 pg (27.0-32.0); MCHC 30.5 g/dL (32.0-37.0); Monocytes # (A) 0.45 X 10*3/uL (0.20-1.00); Monocytes % (A) 2.6 %; Neutrophils # (A) 15.43 X 10*3/uL (1.80-7.70); Neutrophils % (A) 90.9 %; Platelet Count 173 X 10*3/uL (140-440); RBC 4.03 X 10*6/uL (4.40-5.60); RDW 15.2 % (11.5-14.5); WBC 16.99 X 10*3/uL (4.50-10.00)
[2021-03-14 11:42] LABS: Glucose,Whole Blood 86 mg/dL (75-99)
[2021-03-14 11:52] LABS: African American GFR (CKD) 69.6 (60.0-200.0); Albumin 3.4 g/dL (3.8-4.9); Albumin/Globulin Ratio 1.48 (1.60-3.17); Anion Gap 16.6 mmol/L (10.00-18.00); BUN/Creat Ratio 33.67 Ratio (12.00-20.00); Blood Urea Nitrogen 40.4 mg/dL (9.0-27.0); Carbon Dioxide 26.4 mmol/L (20.0-27.5); Globulin 2.3 g/dL (1.6-3.3); Non-African American GFR(CKD) 60.1 (60.0-200.0); Potassium 4.2 mmol/L (3.5-5.5); Total Bilirubin 0.2 mg/dL (0.30-1.20); Total Protein 5.7 g/dL (6.2-8.2)
[2021-03-14] MEDS: REMDESIVIR 100 MG in SODIUM CHLORIDE 0.9% 250 ML IVPB SCH (12:09)
--- NOTE | 2021-03-14 14:47 | P.PN ---
Subjective Progress Note Date: 03/14/21 Patient is a 71-year-old white male with a chronic medical problems a chronic hypoxic respiratory failure uses about 4 L of oxygen at home came in the with complaints of shortness of breath and cough restarted couple days ago was also having fever restarted couple days ago. Patient is found to have COVID-19 patient has multiple other medical problems chronically and patient does have history of COPD possible chronic diastolic dysfunction patient was on IV Lasix in the past. 03/13/2021 Patient evaluated today sitting on the edge of the bed. He is requiring oxygen at 7L HF with a saturation of 91%. Blood pressure 148/76, heart rate 74, temp 98.2. Labs today include WBC of 13.08, hgb 12.3, sodium 143, potassium 4.0, AST 55, ALT 94, LDH 526, CRP 13.60. DD 5.97, doppler negative for bilateral DVT. P ulmonary consultation today who increased decadron to twice a day and started the patient on remdesivir. Patient is also on subcu heparin, zinc, vitamins. 03/14/2021 Patient has been able to ambulate around his room while on oxygen. Vital signs included temperature of 91, heart rate 66 sinus rhythm, respirations 18, blood pressure 139/65 and he is 90% on 12 L high flow nasal cannula. Oxygen sa turation has been progressively increasing. Labs today show a white count of 16.99, hemoglobin 12.8, sodium 146, glucose in the 70s, AST 68, ALT 96. Will repeat a chest x-ray in the morning as well as repeat labs and inflammatory markers. He continues on Lovenox, zinc, vitamins, he was started on IV remdesivir from pulmonary services today. Procalcitonin pending. Apparently patient has been refusing ketorolac eyedrops as he states that he is done taking outpatient; discontinued the order. ROS Constitutional: Denied any fatigue denied any fever. Cardio vascular: denied any chest pain, palpitations Gastrointestinal denied any nausea vomiting Pulmonary: Reports cough, non productive, reports shortness of breath, more with exertion Neurologic denied any new focal deficits All inpatient medications were reviewed and appropriate changes in these medications as dictated in the interval history and assessment and plan. PHYSICAL EXAMINATION: GENERAL: The patient is alert and oriented x3, mildly distressed when ambulating Obesity HEENT: Pupils are round and equally reacting to light. EOMI. No scleral icterus. No conjunctival pallor. Normocephalic, atraumatic. No pharyngeal erythema. No thyromegaly. CARDIOVASCULAR: S1 and S2 present. No murmurs, rubs, or gallops. PULMONARY: Coarse scattered rhonchi throughout ABDOMEN: Soft, nontender, nondistended, normoactive bowel sounds. No palpable organomegaly. MUSCULOSKELETAL: No joint swelling or deformity. EXTREMITIES: No cyanosis, clubbing, or lower extremity edema NEUROLOGICAL: Gross neurological examination did not reveal any focal deficits. SKIN: No rashes. Assessment and plan -Acute on chronic hypoxic respiratory failure secondary to COVID-19 pneumonia wears 4L of oxygen at home, now requiring 12 L of oxygen via HF cannula -Acute Covid 19 pneumonia -Leukocytosis secondary to above -Congestive heart failure chronic diastolic dysfunction without any acute exacerbation at this time patient the BNP is only 206, most recent echo shows an EF of greater than 55%. -Acute COPD exacerbation -Mild transaminitis which is better at compared to his previous admission -Elevated inflammatory markers of COVID-19 -Elevated DD secondary to COVID-19 infection, doppler negative for bilateral DVT -Chronic kidney disease stage III -Gastroesophageal reflux disease -Coronary artery disease -Type 2 diabetes mellitus insulin-dependent -Diabetic peripheral neuropathy -Obstructive sleep apnea -Chronic hypoxic respiratory failure Secondary to COPD and the sleep apnea -Hypertension -Hyperlipidemia -Benign prostatic hypertrophy -History of mixed connective tissue disorder for which patient is on prednisone 20 mg daily -Chronic low back pain -History of DVT in the past for which patient is on not on any anti-coagulation presently DVT prophylaxis: Lovenox GI Prophylaxis: Protonix Plan Continue decadron, zinc, vitamins, remdesivir, lovenox Continue bronchodilators Insulin coverage, will made adjustments as needed for glycemic control Continue all other supportive care Chest xray f/u in AM Repeat labs/inflammatory markers in AM Prognosis is guarded for this patient. Objective - Vital Signs Vital signs: Vital Signs Temp 97.9 F 03/14/21 06:47 Pulse 70 03/14/21 06:47 Resp 22 03/14/21 06:47 BP 164/81 03/14/21 06:47 Pulse Ox 90 L 03/14/21 06:47 Intake & Output 03/13/21 03/14/21 03/14/21 18:59 06:59 18:59 Intake Total 250 Balance 250 Intake: Intake, IV Titration 250 Amount Remdesivir 200 mg In 250 Sodium Chloride 0.9% 250 ml @ 250 mls/hr IVPB ONCE ONE Rx#:[id number] Other: # Voids 2 - Labs CBC & Chem 7: 03/14/21 06:08 03/14/21 06:08 Labs: Abnormal Lab Results - Last 24 Hours (Table) 03/13/21 03/13/21 03/13/21 Range/Units 06:24 06:24 06:27 WBC 13.08 H (4.50-10.00) X 10*3/uL RBC 3.87 L (4.40-5.60) X 10*6/uL Hgb 12.3 L (13.0-17.0) g/dL MCV 106.2 H (80.0-97.0) fL MCHC 29.9 L (32.0-37.0) g/dL RDW 15.9 H (11.5-14.5) % MPV 12.3 H (9.5-12.2) fL BUN 39.9 H (9.0-27.0) mg/dL Est GFR (CKD-EPI)NonAf 57.7 L (60.0-200.0) BUN/Creatinine Ratio 32.18 H (12.00-20.00) Ratio Glucose 141 H (70-110) mg/dL POC Glucose (mg/dL) (75-99) mg/dL Calcium 8.5 L (8.7-10.3) mg/dL Total Bilirubin 0.20 L (0.30-1.20) mg/dL AST 55 H (14-35) U/L ALT 94 H (10-49) U/L Lactate Dehydrogenase 526 H (120-246) U/L C-Reactive Protein 13.60 H (0.00-0.80) mg/dL Total Protein 5.3 L (6.2-8.2) g/dL Albumin 3.2 L (3.8-4.9) g/dL Albumin/Globulin Ratio 1.53 L (1.60-3.17) g/dL 03/13/21 03/13/21 03/13/21 Range/Units 11:41 16:38 20:48 WBC (4.50-10.00) X 10*3/uL RBC (4.40-5.60) X 10*6/uL Hgb (13.0-17.0) g/dL MCV (80.0-97.0) fL MCHC (32.0-37.0) g/dL RDW (11.5-14.5) % MPV (9.5-12.2) fL BUN (9.0-27.0) mg/dL Est GFR (CKD-EPI)NonAf (60.0-200.0) BUN/Creatinine Ratio (12.00-20.00) Ratio Glucose (70-110) mg/dL POC Glucose (mg/dL) 117 H 288 H 177 H (75-99) mg/dL Calcium (8.7-10.3) mg/dL Total Bilirubin (0.30-1.20) mg/dL AST (14-35) U/L ALT (10-49) U/L Lactate Dehydrogenase (120-246) U/L C-Reactive Protein (0.00-0.80) mg/dL Total Protein (6.2-8.2) g/dL Albumin (3.8-4.9) g/dL Albumin/Globulin Ratio (1.60-3.17) g/dL Microbiology - Last 24 Hours (Table) 03/12/21 16:28 Blood Culture - Preliminary Blood No Growth after 24 hours 03/12/21 16:28 Blood Culture - Preliminary Blood No Growth after 24 hours
--- NOTE | 2021-03-14 14:52 | P.PN ---
Subjective Progress Note Date: 03/14/21 Principal diagnosis: Dyspnea This 71-year-old white male patient who follows with Dr. Torres in the pulmonary clinic for his history of advanced COPD on home oxygen patient usually wears 4 L on a regular basis, he is prednisone dependent and usually takes 20 mg on a regular basis, coronary artery disease, diabetes mellitus type 2, previous history of CVA, hypertension, hyperlipidemia, previous history of pneumonia, chronic kidney disease unspecified, sleep apnea, BPH, osteoarthritis. Patient presented to the emergency department on 03/12/2021 for evaluation of worsening dyspnea. Patient had a fever at home up to 101.7F. He saw Dr. Torres on Friday03/09/2021 and his antibiotics were changed. Patient was also given a prednisone taper and was placed on Levaquin. Has chronic swelling in his lower extremities which is unchanged. Of note patient was tested for COVID-19 on 03/02/2021 and was found to be negative. During this visit to the ED he tested positive on 03/12/2021. Patient has been vaccinated against COVID-19. His chest x-ray shows increasing diffuse interstitial opacity, with the possibility of fluid overload/CHF, interstitial pneumonitis, atypical pneumonia or chronic pneumonia. His blood work on admission has been reviewed showing white blood cell count of 12.7, hemoglobin of 12.3, his INR 0.9, sodium is 136, potassium is 4.2, chloride is 97, CO2 31, BUN is 55, creatinine is 1.28, troponin is less than 0.012, proBNP is within normal limits at 206. Patient has been started on Decadron 6 blood gram daily which we will increase to twice daily, he was placed on albuterol and Symbicort, he is on subcutaneous heparin 5000 units every 12 h ours, and the patient is within the window for Remdesivir which she will be started on today. On 03/14/2021 patient seen in follow-up on medical surgical floor, he is breathing comfortably, she is resting in bed, no worsening dyspnea, he is currently on 12 L of oxygen his pulse ox is 92%, does have mildly congested cough, no chest discomfort, blood pressure is stable, his been afebrile. Lower extremity Dopplers showed no evidence of DVT. Today's labs have been reviewed, his white count is 16.9, hemoglobin is 12.8, sodium is 146, the rest of electrolytes are within normal limits, BUN is 40, creatinine is 1.2. LDH was 526, not significantly elevated, CRP was 13.6, follow-up in addition he remains on prophylactic dose Lovenox, he is on Decadron 6 mg twice daily. Objective - Vital Signs Vital signs: Vital Signs Temp 98.1 F 03/14/21 14:22 Pulse 66 03/14/21 14:22 Resp 18 03/14/21 14:22 BP 139/65 03/14/21 14:22 Pulse Ox 90 L 03/14/21 14:22 Intake & Output 03/13/21 03/14/21 03/14/21 18:59 06:59 18:59 Intake Total 250 Balance 250 Intake: Intake, IV Titration 250 Amount Remdesivir 200 mg In 250 Sodium Chloride 0.9% 250 ml @ 250 mls/hr IVPB ONCE ONE Rx#:[id number] Other: # Voids 2 - Exam GENERAL EXAM: Alert, very pleasant, 71-year-old white male, currently on 12 L of oxygen a pulse ox of 90%, comfortable in no apparent distress. HEAD: Normocephalic/atraumatic. EYES: Normal reaction of pupils, equal size. Conjunctiva pink, sclera white. NOSE: Clear with pink turbinates. THROAT: No erythema or exudates. NECK: No masses, no JVD, no thyroid enlargement, no adenopathy. CHEST: No chest wall deformity. Symmetrical expansion. LUNGS: Equal air entry with diffuse crackles, and a few rhonchi CVS: Regular rate and rhythm, normal S1 and S2, no gallops, no murmurs, no rubs ABDOMEN: Soft, nontender. No hepatosplenomegaly, normal bowel sounds, no guarding or rigidity. EXTREMITIES: No clubbing, plus lower extremity edema with chronic venous stasis, no cyanosis, 2+ pulses and upper and lower extremities. MUSCULOSKELETAL: Muscle strength and tone normal. SPINE: No scoliosis or deformity SKIN: No rashes CENTRAL NERVOUS SYSTEM: Alert and oriented -3. No focal deficits, tone is normal in all 4 extremities. PSYCHIATRIC: Alert and oriented -3. Appropriate affect. Intact judgment and insight. - Labs CBC & Chem 7: 03/14/21 06:08 03/14/21 06:08 Labs: Abnormal Lab Results - Last 24 Hours (Table) 03/13/21 03/13/21 03/13/21 Range/Units 06:27 16:38 20:48 WBC (4.50-10.00) X 10*3/uL RBC (4.40-5.60) X 10*6/uL Hgb (13.0-17.0) g/dL MCV (80.0-97.0) fL MCHC (32.0-37.0) g/dL RDW (11.5-14.5) % Immature Gran # (0.00-0.04) X 10*3/uL Neutrophils # (1.80-7.70) X 10*3/uL Lymphocytes # (0.90-5.00) X 10*3/uL Eosinophils # (0.04-0.35) X 10*3/uL Sodium (135-145) mmol/L BUN (9.0-27.0) mg/dL BUN/Creatinine Ratio (12.00-20.00) Ratio Glucose (70-110) mg/dL POC Glucose (mg/dL) 288 H 177 H (75-99) mg/dL Total Bilirubin (0.30-1.20) mg/dL AST (14-35) U/L ALT (10-49) U/L Lactate Dehydrogenase 526 H (120-246) U/L C-Reactive Protein 13.60 H (0.00-0.80) mg/dL Total Protein (6.2-8.2) g/dL Albumin (3.8-4.9) g/dL Albumin/Globulin Ratio (1.60-3.17) g/dL 03/14/21 03/14/21 Range/Units 06:08 06:08 WBC 16.99 H (4.50-10.00) X 10*3/uL RBC 4.03 L (4.40-5.60) X 10*6/uL Hgb 12.8 L (13.0-17.0) g/dL MCV 104.0 H (80.0-97.0) fL MCHC 30.5 L (32.0-37.0) g/dL RDW 15.2 H (11.5-14.5) % Immature Gran # 0.29 H (0.00-0.04) X 10*3/uL Neutrophils # 15.43 H (1.80-7.70) X 10*3/uL Lymphocytes # 0.79 L (0.90-5.00) X 10*3/uL Eosinophils # 0 L (0.04-0.35) X 10*3/uL Sodium 146 H (135-145) mmol/L BUN 40.4 H (9.0-27.0) mg/dL BUN/Creatinine Ratio 33.67 H (12.00-20.00) Ratio Glucose 62 L (70-110) mg/dL POC Glucose (mg/dL) (75-99) mg/dL Total Bilirubin 0.20 L (0.30-1.20) mg/dL AST 68 H (14-35) U/L ALT 96 H (10-49) U/L Lactate Dehydrogenase (120-246) U/L C-Reactive Protein (0.00-0.80) mg/dL Total Protein 5.7 L (6.2-8.2) g/dL Albumin 3.4 L (3.8-4.9) g/dL Albumin/Globulin Ratio 1.48 L (1.60-3.17) g/dL Microbiology - Last 24 Hours (Table) 03/12/21 16:28 Blood Culture - Preliminary Blood No Growth after 24 hours 03/12/21 16:28 Blood Culture - Preliminary Blood No Growth after 24 hours Assessment and Plan Plan: Assessment: #1. Acute on chronic hypoxic respiratory failure related to acute COVID-19 related pneumonia, patient tested positive on 03/12/2021. Patient is vaccinated against COVID-19. His symptoms have worsened over last week, patient will be started on Remdesivir today on 03/13/2021 #2. Acute exacerbation of COPD #3. Chronic COPD, advanced, with a baseline FEV1 of 1.71 L or FEV1 of 58% usually on home oxygen at 4 L #4. Recent 2 hospitalizations for acute exacerbation of COPD in early February, during which patient tested negative for COVID-19, urinalysis was also negative, influenza A and B were negative #5. Diabetes mellitus type 2 #6. Hypertension, #7. Hyperlipidemia #8. History of coronary artery disease with previous stenting #9. History of CHF, unspecified #10. History of CVA/TIA #11. Osteoarthritis #12. Chronic knee disease, unspecified #13. Chronic venous insufficiency #14. 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 Sleep apnea does not wear CPAP #17. Marijuana use #18. Elevated d-dimer related to acute COVID-19 infection, we'll obtain lower extremity Dopplers and will consider CT angiogram of the chest Plan: Continue Remdesivir, day 2 of treatment Continue with twice daily dosing of Decadron Continue Lovenox Lower extremity Dopplers were negative for DVT We'll continue following patient's clinical course Obtain follow-up inflammatory markers and a d-dimer I performed a history & physical examination of the patient and discussed their management with my nurse practitioner, Skylar Mckoy. I reviewed the nurse practitioner's note and agree with the documented findings and plan of care. Lung sounds are positive for crackles and rhonchi throughout the lung [place]. The findings and the impression was discussed with the patient. I attest to the documentation by the nurse practitioner. Time with Patient: Less than 30
[2021-03-14 16:40] LABS: Glucose,Whole Blood 74 mg/dL (75-99)
[2021-03-14 20:41] LABS: Glucose,Whole Blood 113 mg/dL (75-99)
[2021-03-14] MEDS: FUROSEMIDE 10 MG/ML 4 ML VIAL IV SCH (22:35)
[2021-03-14] MEDS: CYCLOBENZAPRINE 10 MG TAB PO PRN (22:35)
[2021-03-14] MEDS: PRAMIPEXOLE 1 MG TAB PO SCH (22:36)
[2021-03-14] MEDS: METOPROLOL TARTRATE 25 MG TAB PO SCH (22:36)
[2021-03-15 07:33] LABS: Glucose,Whole Blood 83 mg/dL (75-99)
--- NOTE | 2021-03-15 07:35 | XR ---
EXAMINATION TYPE: XR chest 1V portable DATE OF EXAM: 03/15/2021 Comparison: 03/12/2021 Clinical History: 71-year-old male PNA Findings: Right shoulder plasty partially visualized. Heart moderately enlarged. Diffuse interstitial and patch y peripheral opacities remain without significant change. No sizable pleural effusion. Impression: 1. Stable mild cardiomegaly. 2. Stable diffuse interstitial changes and patchy peripheral infiltrates.
[2021-03-15] MEDS: PANTOPRAZOLE 40 MG TABLET PO SCH (08:04)
[2021-03-15] MEDS: QUEtiapine 25 MG TAB PO SCH ×2 (08:04→19:43)
[2021-03-15] MEDS: METOPROLOL TARTRATE 50 MG TAB PO SCH (08:04)
[2021-03-15] MEDS: ASCORBIC ACID 500 MG TAB PO SCH ×2 (08:04→21:51)
[2021-03-15] MEDS: FAMOTIDINE 20 MG TAB PO SCH ×2 (08:04→21:51)
[2021-03-15] MEDS: CHOLECALCIFEROL 125 MCG (5000 IU) TABLET PO SCH (08:05)
[2021-03-15] MEDS: ZINC SULFATE 220 MG CAP PO SCH (08:05)
[2021-03-15] MEDS: ISOSORBIDE MONONITRATE ER 30 MG TAB.ER.24H PO SCH (08:05)
[2021-03-15] MEDS: allopurinoL 100 MG TAB PO SCH (08:05)
[2021-03-15] MEDS: MAGNESIUM OXIDE 400 MG TAB PO SCH (08:05)
[2021-03-15] MEDS: TAMSULOSIN 0.4 MG CAP.ER.24H PO SCH (08:05)
[2021-03-15] MEDS: ASPIRIN 81 MG PO SCH (08:05)
[2021-03-15] MEDS: COLCHICINE 0.6 MG EACH PO SCH (08:06)
[2021-03-15] MEDS: ENOXAPARIN 40 MG/0.4 ML SYRINGE SQ SCH (08:07)
[2021-03-15] MEDS: dexAMETHasone 2 MG TAB PO SCH ×2 (08:07→21:51)
[2021-03-15] MEDS: FUROSEMIDE 10 MG/ML 4 ML VIAL IV SCH ×2 (08:07→21:51)
[2021-03-15] MEDS: INSULIN ASPART (NovoLOG) 100 UNIT/ML VIAL SQ SCH ×8 (08:09→21:52)
[2021-03-15] MEDS: ALBUTEROL HFA INHALER INHALATION SCH ×5 (09:22→20:25)
[2021-03-15] MEDS: SYMBICORT 160-4.5 MCG INHALER INHALATION SCH ×2 (09:22→20:25)
[2021-03-15 10:25] LABS: Basophils # (A) 0.07 X 10*3/uL (0.00-0.10); Basophils % (A) 0.3 %; Eosinophils # (A) 0 X 10*3/uL (0.04-0.35); Eosinophils % (A) 0 %; HCT 41.9 % (39.6-50.0); HGB 13.3 g/dL (13.0-17.0); Lymphocytes % (A) 3.8 %; MCHC 31.7 g/dL (32.0-37.0); Monocytes % (A) 3.3 %; Neutrophils # (A) 19.12 X 10*3/uL (1.80-7.70); Platelet Count 210 X 10*3/uL (140-440); RBC 4.15 X 10*6/uL (4.40-5.60); RDW 15.4 % (11.5-14.5); WBC 21.24 X 10*3/uL (4.50-10.00)
[2021-03-15 11:06] LABS: African American GFR (CKD) 63.2 (60.0-200.0); Albumin 3.6 g/dL (3.8-4.9); Albumin/Globulin Ratio 1.64 (1.60-3.17); Anion Gap 16.1 mmol/L (10.00-18.00); BUN/Creat Ratio 34.15 Ratio (12.00-20.00); Blood Urea Nitrogen 44.4 mg/dL (9.0-27.0); C Reactive Protein 4.7 mg/dL (0.00-0.80); Carbon Dioxide 26.9 mmol/L (20.0-27.5); Globulin 2.2 g/dL (1.6-3.3); Non-African American GFR(CKD) 54.5 (60.0-200.0); Potassium 3.9 mmol/L (3.5-5.5); Total Bilirubin 0.3 mg/dL (0.30-1.20); Total Protein 5.8 g/dL (6.2-8.2)
--- NOTE | 2021-03-15 11:09 | P.PN ---
Subjective Patient is a 71-year-old white male with a chronic medical problems a chronic hypoxic respiratory failure uses about 4 L of oxygen at home came in the with complaints of shortness of breath and cough restarted couple days ago was also having fever restarted couple days ago. Patient is found to have COVID-19 patient has multiple other medical problems chronically and patient does have history of COPD possible chronic diastolic dysfunction patient was on IV Lasix in the past. 03/13/2021 Patient evaluated today sitting on the edge of the bed. He is requiring oxygen at 7L HF with a saturation of 91%. Blood pressure 148/76, heart rate 74, temp 98.2. Labs today include WBC of 13.08, hgb 12.3, sodium 143, potassium 4.0, AST 55, ALT 94, LDH 526, CRP 13.60. DD 5.97, doppler negative for bilateral DVT. Pulmonary consultation today who increased decadron to twice a day and started the patient on remdesivir. Patient is also on subcu heparin, zinc, vitamins. 03/14/2021 Patient has been able to ambulate around his room while on oxygen. Vital signs included temperature of 91, heart rate 66 sinus rhythm, respirations 18, blood pressure 139/65 and he is 90% on 12 L high flow nasal cannula. Oxygen saturation has been progressively increasing. Labs today show a white count of 16.99, hemoglobin 12.8, sodium 146, glucose in the 70s, AST 68, ALT 96. Will repeat a chest x-ray in the morning as well as repeat labs and inflammatory markers. He continues on Lovenox, zinc, vitamins, he was started on IV remdesivir from pulmonary services today. Procalcitonin pending. Apparently patient has been refusing ketorolac eyedrops as he states that he is done taking outpatient; discontinued the order. 03/15/2021 Patient says he is feeling better patient the arms and requirements went up yesterday was on 10 L now came down to 8 L patient overall feels better but as per the nursing staff patient has been occasionally getting confused which is not unexpected for for him as he had owners in the past and patient is also on stress steroids which can do that. Patient was started on IV Lasix because of increased swelling in bilateral lower extremities patient barely takes one 20 mg of by mouth Lasix at home although it was documented as 20 mg. We'll continue with IV Lasix will monitor I's and O's will continue to wean off his oxygen. Constitutional: Denied any fatigue denied any fever. Cardio vascular: denied any chest pain, palpitations Gastrointestinal denied any nausea vomiting Pulmonary: Denied any shortness of breath cough Neurologic denied any new focal deficits All inpatient medications were reviewed and appropriate changes in these medications as dictated in the interval history and assessment and plan. PHYSICAL EXAMINATION: GENERAL: The patient is alert and oriented x3, mildly distressed when ambulating Obesity HEENT: Pupils are round and equally reacting to light. EOMI. No scleral icterus. No conjunctival pallor. Normocephalic, atraumatic. No pharyngeal erythema. No thyromegaly. CARDIOVASCULAR: S1 and S2 present. No murmurs, rubs, or gallops. PULMONARY: Coarse scattered rhonchi throughout ABDOMEN: Soft, nontender, nondistended, normoactive bowel sounds. No palpable organomegaly. MUSCULOSKELETAL: No joint swelling or deformity. EXTREMITIES: No cyanosis, clubbing, or lower extremity edema NEUROLOGICAL: Gross neurological examination did not reveal any focal deficits. SKIN: No rashes. Assessment and plan -Acute on chronic hypoxic respiratory failure secondary to COVID-19 pneumonia wears 4L of oxygen at home, now requiring 8 L of oxygen via HF cannula - Covid 19 pneumonia -Leukocytosis secondary to above -Congestive heart failure chronic diastolic dysfunction without any acute exac erbation at this time patient the BNP is only 206, most recent echo shows an EF of greater than 55%. -Acute COPD exacerbation -Mild transaminitis which is better at compared to his previous admission, chronic no further intervention at this time COVID-19 can cause transaminitis is Possible congestive heart failure chronic diastolic dysfunction with mild acute exacerbation -Elevated inflammatory markers of COVID-19 -Elevated DD secondary to COVID-19 infection, doppler negative for bilateral DVT -Chronic kidney disease stage III -Gastroesophageal reflux disease -Coronary artery disease -Type 2 diabetes mellitus insulin-dependent -Diabetic peripheral neuropathy -Obstructive sleep apnea -Chronic hypoxic respiratory failure Secondary to COPD and the sleep apnea -Hypertension -Hyperlipidemia -Benign prostatic hypertrophy -Chronic low back pain -History of DVT in the past for which patient is on not on any anti-coagulation presently DVT prophylaxis: Lovenox GI Prophylaxis: Protonix Plan Continue decadron, zinc, vitamins, remdesivir, lovenox Continue bronchodilators Insulin coverage, will made adjustments as needed for glycemic control Continue all other supportive care Chest xray f/u in AM Repeat labs/inflammatory markers in AM Prognosis is guarded for this patient. Objective - Vital Signs Vital signs: Vital Signs Temp 98 F 03/15/21 10:00 Pulse 67 03/15/21 10:00 Resp 24 03/15/21 10:00 BP 132/76 03/15/21 10:00 Pulse Ox 93 L 03/15/21 10:00 Intake & Output 03/14/21 03/15/21 03/15/21 18:59 06:59 18:59 Intake Total 680 Balance 680 Intake: Oral 680 Other: # Voids 2 2 - Labs CBC & Chem 7: 03/15/21 06:00 03/15/21 06:00 Labs: Abnormal Lab Results - Last 24 Hours (Table) 03/14/21 03/14/21 03/14/21 Range/Units 06:08 06:08 16:39 WBC (4.50-10.00) X 10*3/uL RBC (4.40-5.60) X 10*6/uL MCV (80.0-97.0) fL MCHC (32.0-37.0) g/dL RDW (11.5-14.5) % Absolute Nucleated RBC (0.00-0.00) X 10*3/uL Immature Gran # (0.00-0.04) X 10*3/uL Neutrophils # (1.80-7.70) X 10*3/uL Lymphocytes # (0.90-5.00) X 10*3/uL Eosinophils # (0.04-0.35) X 10*3/uL NRBC/100 WBC Diff (0.0-0.0) /100 WBCS D-Dimer (<0.60) mg/L FEU Sodium 146 H (135-145) mmol/L BUN 40.4 H (9.0-27.0) mg/dL Est GFR (CKD-EPI)NonAf (60.0-200.0) BUN/Creatinine Ratio 33.67 H (12.00-20.00) Ratio Glucose 62 L (70-110) mg/dL POC Glucose (mg/dL) 74 L (75-99) mg/dL Total Bilirubin 0.20 L (0.30-1.20) mg/dL AST 68 H (14-35) U/L ALT 96 H (10-49) U/L Lactate Dehydrogenase (120-246) U/L C-Reactive Protein (0.00-0.80) mg/dL Total Protein 5.7 L (6.2-8.2) g/dL Albumin 3.4 L (3.8-4.9) g/dL Albumin/Globulin Ratio 1.48 L (1.60-3.17) g/dL Procalcitonin 0.16 H (0.02-0.09) ng/mL 03/14/21 03/15/21 03/15/21 Range/Units 20:40 06:00 06:00 WBC (4.50-10.00) X 10*3/uL RBC (4.40-5.60) X 10*6/uL MCV (80.0-97.0) fL MCHC (32.0-37.0) g/dL RDW (11.5-14.5) % Absolute Nucleated RBC (0.00-0.00) X 10*3/uL Immature Gran # (0.00-0.04) X 10*3/uL Neutrophils # (1.80-7.70) X 10*3/uL Lymphocytes # (0.90-5.00) X 10*3/uL Eosinophils # (0.04-0.35) X 10*3/uL NRBC/100 WBC Diff (0.0-0.0) /100 WBCS D-Dimer 1.23 H (<0.60) mg/L FEU Sodium 146 H (135-145) mmol/L BUN 44.4 H (9.0-27.0) mg/dL Est GFR (CKD-EPI)NonAf 54.5 L (60.0-200.0) BUN/Creatinine Ratio 34.15 H (12.00-20.00) Ratio Glucose (70-110) mg/dL POC Glucose (mg/dL) 113 H (75-99) mg/dL Total Bilirubin (0.30-1.20) mg/dL AST 83 H (14-35) U/L ALT 106 H (10-49) U/L Lactate Dehydrogenase 625 H (120-246) U/L C-Reactive Protein 4.70 H (0.00-0.80) mg/dL Total Protein 5.8 L (6.2-8.2) g/dL Albumin 3.6 L (3.8-4.9) g/dL Albumin/Globulin Ratio (1.60-3.17) g/dL Procalcitonin (0.02-0.09) ng/mL 03/15/21 Range/Units 06:00 WBC 21.24 H (4.50-10.00) X 10*3/uL RBC 4.15 L (4.40-5.60) X 10*6/uL MCV 101.0 H (80.0-97.0) fL MCHC 31.7 L (32.0-37.0) g/dL RDW 15.4 H (11.5-14.5) % Absolute Nucleated RBC 0.02 H (0.00-0.00) X 10*3/uL Immature Gran # 0.55 H (0.00-0.04) X 10*3/uL Neutrophils # 19.12 H (1.80-7.70) X 10*3/uL Lymphocytes # 0.80 L (0.90-5.00) X 10*3/uL Eosinophils # 0 L (0.04-0.35) X 10*3/uL NRBC/100 WBC Diff 0.1 H (0.0-0.0) /100 WBCS D-Dimer (<0.60) mg/L FEU Sodium (135-145) mmol/L BUN (9.0-27.0) mg/dL Est GFR (CKD-EPI)NonAf (60.0-200.0) BUN/Creatinine Ratio (12.00-20.00) Ratio Glucose (70-110) mg/dL POC Glucose (mg/dL) (75-99) mg/dL Total Bilirubin (0.30-1.20) mg/dL AST (14-35) U/L ALT (10-49) U/L Lactate Dehydrogenase (120-246) U/L C-Reactive Protein (0.00-0.80) mg/dL Total Protein (6.2-8.2) g/dL Albumin (3.8-4.9) g/dL Albumin/Globulin Ratio (1.60-3.17) g/dL Procalcitonin (0.02-0.09) ng/mL Microbiology - Last 24 Hours (Table) 03/12/21 16:28 Blood Culture - Preliminary Blood No Growth after 48 hours 03/12/21 16:28 Blood Culture - Preliminary Blood No Growth after 48 hours
[2021-03-15] MEDS ORDERED: INSULIN DETEMIR (LEVEMIR) 100 UNIT/ML SYR SQ PRN (11:10)
[2021-03-15 11:45] LABS: Glucose,Whole Blood 69 mg/dL (75-99)
[2021-03-15] MEDS: REMDESIVIR 100 MG in SODIUM CHLORIDE 0.9% 250 ML IVPB SCH (12:03)
[2021-03-15 12:57] LABS: Glucose,Whole Blood 163 mg/dL (75-99)
--- NOTE | 2021-03-15 14:27 | P.PN ---
Subjective Progress Note Date: 03/15/21 Principal diagnosis: Dyspnea This 71-year-old white male patient who follows with Dr. Torres in the pulmonary clinic for his history of advanced COPD on home oxygen patient usually wears 4 L on a regular basis, he is prednisone dependent and usually takes 20 mg on a regular basis, coronary artery disease, diabetes mellitus type 2, previous history of CVA, hypertension, hyperlipidemia, previous history of pneumonia, chronic kidney disease unspecified, sleep apnea, BPH, osteoarthritis. Patient presented to the emergency department on 03/12/2021 for evaluation of worsening dyspnea. Patient had a fever at home up to 101.7F. He saw Dr. Torres on Friday03/09/2021 and his antibiotics were changed. Patient was also given a prednisone taper and was placed on Levaquin. Has chronic swelling in his lower extremities which is unchanged. Of note patient was tested for COVID-19 on 03/02/2021 and was found to be negative. During this visit to the ED he tested positive on 03/12/2021. Patient has been vaccinated against COVID-19. His chest x-ray shows increasing diffuse interstitial opacity, with the possibility of fluid overload/CHF, interstitial pneumonitis, atypical pneumonia or chronic pneumonia. His blood work on admission has been reviewed showing white blood cell count of 12.7, hemoglobin of 12.3, his INR 0.9, sodium is 136, potassium is 4.2, chloride is 97, CO2 31, BUN is 55, creatinine is 1.28, troponin is less than 0.012, proBNP is within normal limits at 206. Patient has been started on Decadron 6 blood gram daily which we will increase to twice daily, he was placed on albuterol and Symbicort, he is on subcutaneous heparin 5000 units every 12 h ours, and the patient is within the window for Remdesivir which she will be started on today. On 03/14/2021 patient seen in follow-up on medical surgical floor, he is breathing comfortably, she is resting in bed, no worsening dyspnea, he is currently on 12 L of oxygen his pulse ox is 92%, does have mildly congested cough, no chest discomfort, blood pressure is stable, his been afebrile. Lower extremity Dopplers showed no evidence of DVT. Today's labs have been reviewed, his white count is 16.9, hemoglobin is 12.8, sodium is 146, the rest of electrolytes are within normal limits, BUN is 40, creatinine is 1.2. LDH was 526, not significantly elevated, CRP was 13.6, follow-up in addition he remains on prophylactic dose Lovenox, he is on Decadron 6 mg twice daily. On 03/15/2021 patient seen in follow-up on medical surgical floor. He is awake and alert, he is currently on 10 L of oxygen, down from 12 L on yesterday's exam, he states his breathing is improving, his coughing less, his been afebrile, hemodynamically stable, no chest discomfort. His been ambulating about the room, tolerates activity well. Today's chest x-ray showing mild cardiomegaly, and stable diffuse interstitial changes and patchy peripheral infiltrates. Today's labs have been reviewed, his white blood cell count is 21.2, hemoglobin is 13.3, his d-dimer is improved and is down to 1.23, sodium is 146, the rest of the electrolytes are within normal limits, BUN is 44, creatinine is 1.3. His LDH is 625, slightly increased from most previous value of 526, CRP is improved and is down to 4.7 on today's labs, pro-calcitonin level is negative 2 at 0.16, and 0.19. Blood cultures have shown no growth. He cur rently continues on Decadron 6 mg twice daily, he is on Lovenox 40 mg once daily, he is on IV Lasix 40 mg every 12 hours, and we started him on the Remdesivir yesterday and today is day 3 of treatment. Objective - Vital Signs Vital signs: Vital Signs Temp 98 F 03/15/21 10:00 Pulse 67 03/15/21 10:00 Resp 24 03/15/21 10:00 BP 132/76 03/15/21 10:00 Pulse Ox 93 L 03/15/21 10:00 Intake & Output 03/14/21 03/15/21 03/15/21 18:59 06:59 18:59 Intake Total 680 Balance 680 Intake: Oral 680 Other: # Voids 2 2 - Exam GENERAL EXAM: Alert, very pleasant, 71-year-old white male, currently on 10 L of oxygen a pulse ox of 93%, comfortable in no apparent distress. HEAD: Normocephalic/atraumatic. EYES: Normal reaction of pupils, equal size. Conjunctiva pink, sclera white. NOSE: Clear with pink turbinates. THROAT: No erythema or exudates. NECK: No masses, no JVD, no thyroid enlargement, no adenopathy. CHEST: No chest wall deformity. Symmetrical expansion. LUNGS: Equal air entry with diffuse crackles, and a few rhonchi CVS: Regular rate and rhythm, normal S1 and S2, no gallops, no murmurs, no rubs ABDOMEN: Soft, nontender. No hepatosplenomegaly, normal bowel sounds, no guarding or rigidity. EXTREMITIES: No clubbing, plus lower extremity edema with chronic venous stasis, no cyanosis, 2+ pulses and upper and lower extremities. MUSCULOSKELETAL: Muscle strength and tone normal. SPINE: No scoliosis or deformity SKIN: No rashes CENTRAL NERVOUS SYSTEM: Alert and oriented -3. No focal deficits, tone is normal in all 4 extremities. PSYCHIATRIC: Alert and oriented -3. Appropriate affect. Intact judgment and insight. - Labs CBC & Chem 7: 03/15/21 06:00 03/15/21 06:00 Labs: Abnormal Lab Results - Last 24 Hours (Table) 03/14/21 03/14/21 03/14/21 Range/Units 06:08 16:39 20:40 WBC (4.50-10.00) X 10*3/uL RBC (4.40-5.60) X 10*6/uL MCV (80.0-97.0) fL MCHC (32.0-37.0) g/dL RDW (11.5-14.5) % Absolute Nucleated RBC (0.00-0.00) X 10*3/uL Immature Gran # (0.00-0.04) X 10*3/uL Neutrophils # (1.80-7.70) X 10*3/uL Lymphocytes # (0.90-5.00) X 10*3/uL Eosinophils # (0.04-0.35) X 10*3/uL NRBC/100 WBC Diff (0.0-0.0) /100 WBCS D-Dimer (<0.60) mg/L FEU Sodium (135-145) mmol/L BUN (9.0-27.0) mg/dL Est GFR (CKD-EPI)NonAf (60.0-200.0) BUN/Creatinine Ratio (12.00-20.00) Ratio POC Glucose (mg/dL) 74 L 113 H (75-99) mg/dL AST (14-35) U/L ALT (10-49) U/L Lactate Dehydrogenase (120-246) U/L C-Reactive Protein (0.00-0.80) mg/dL Total Protein (6.2-8.2) g/dL Albumin (3.8-4.9) g/dL Procalcitonin 0.16 H (0.02-0.09) ng/mL 03/15/21 03/15/21 03/15/21 Range/Units 06:00 06:00 06:00 WBC (4.50-10.00) X 10*3/uL RBC (4.40-5.60) X 10*6/uL MCV (80.0-97.0) fL MCHC (32.0-37.0) g/dL RDW (11.5-14.5) % Absolute Nucleated RBC (0.00-0.00) X 10*3/uL Immature Gran # (0.00-0.04) X 10*3/uL Neutrophils # (1.80-7.70) X 10*3/uL Lymphocytes # (0.90-5.00) X 10*3/uL Eosinophils # (0.04-0.35) X 10*3/uL NRBC/100 WBC Diff (0.0-0.0) /100 WBCS D-Dimer 1.23 H (<0.60) mg/L FEU Sodium 146 H (135-145) mmol/L BUN 44.4 H (9.0-27.0) mg/dL Est GFR (CKD-EPI)NonAf 54.5 L (60.0-200.0) BUN/Creatinine Ratio 34.15 H (12.00-20.00) Ratio POC Glucose (mg/dL) (75-99) mg/dL AST 83 H (14-35) U/L ALT 106 H (10-49) U/L Lactate Dehydrogenase 625 H (120-246) U/L C-Reactive Protein 4.70 H (0.00-0.80) mg/dL Total Protein 5.8 L (6.2-8.2) g/dL Albumin 3.6 L (3.8-4.9) g/dL Procalcitonin 0.19 H (0.02-0.09) ng/mL 03/15/21 03/15/21 03/15/21 Range/Units 06:00 11:43 12:56 WBC 21.24 H (4.50-10.00) X 10*3/uL RBC 4.15 L (4.40-5.60) X 10*6/uL MCV 101.0 H (80.0-97.0) fL MCHC 31.7 L (32.0-37.0) g/dL RDW 15.4 H (11.5-14.5) % Absolute Nucleated RBC 0.02 H (0.00-0.00) X 10*3/uL Immature Gran # 0.55 H (0.00-0.04) X 10*3/uL Neutrophils # 19.12 H (1.80-7.70) X 10*3/uL Lymphocytes # 0.80 L (0.90-5.00) X 10*3/uL Eosinophils # 0 L (0.04-0.35) X 10*3/uL NRBC/100 WBC Diff 0.1 H (0.0-0.0) /100 WBCS D-Dimer (<0.60) mg/L FEU Sodium (135-145) mmol/L BUN (9.0-27.0) mg/dL Est GFR (CKD-EPI)NonAf (60.0-200.0) BUN/Creatinine Ratio (12.00-20.00) Ratio POC Glucose (mg/dL) 69 L 163 H (75-99) mg/dL AST (14-35) U/L ALT (10-49) U/L Lactate Dehydrogenase (120-246) U/L C-Reactive Protein (0.00-0.80) mg/dL Total Protein (6.2-8.2) g/dL Albumin (3.8-4.9) g/dL Procalcitonin (0.02-0.09) ng/mL Microbiology - Last 24 Hours (Table) 03/12/21 16:28 Blood Culture - Preliminary Blood No Growth after 48 hours 03/12/21 16:28 Blood Culture - Preliminary Blood No Growth after 48 hours Assessment and Plan Plan: Assessment: #1. Acute on chronic hypoxic respiratory failure related to acute COVID-19 related pneumonia, patient tested positive on 03/12/2021. Patient is vaccinated against COVID-19. His symptoms have worsened over last week, patient will be started on Remdesivir today on 03/13/2021 #2. Acute exacerbation of COPD #3. Chronic COPD, advanced, with a baseline FEV1 of 1.71 L or FEV1 of 58% usually on home oxygen at 4 L #4. Recent 2 hospitalizations for acute exacerbation of COPD in early February, during which patient tested negative for COVID-19, urinalysis was also negative, influenza A and B were negative #5. Diabetes mellitus type 2 #6. Hypertension, #7. Hyperlipidemia #8. History of coronary artery disease with previous stenting #9. History of CHF, unspecified #10. History of CVA/TIA #11. Osteoarthritis #12. Chronic knee disease, unspecified #13. Chronic venous insufficiency #14. 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 Sleep apnea does not wear CPAP #17. Marijuana use #18. Elevated d-dimer related to acute COVID-19 infection, we'll obtain lower extremity Dopplers and will consider CT angiogram of the chest Plan: Continue Remdesivir, day 3 of treatment Continue with twice daily dosing of Decadron Continue Lovenox Today's labs have been noted, chest x-ray reviewed Continue IV diuretics Continue inhaled bronchodilators Continue weaning FiO2 to keep O2 sats at 88% and above Clinically patient is improving We'll continue to follow his clinical course make further recommendations I performed a history & physical examination of the patient and discussed their management with my nurse practitioner, Skylar Mckoy. I reviewed the nurse practitioner's note and agree with the documented findings and plan of care. Lung sounds are positive for crackles and rhonchi throughout the lung kimball. The findings and the impression was discussed with the patient. I attest to the documentation by the nurse practitioner. Time with Patient: Less than 30
[2021-03-15 14:33] LABS: Glucose,Whole Blood 170 mg/dL (75-99)
[2021-03-15 16:53] LABS: Glucose,Whole Blood 124 mg/dL (75-99)
[2021-03-15] MEDS: PRAMIPEXOLE 1 MG TAB PO SCH (19:43)
[2021-03-15] MEDS: METOPROLOL TARTRATE 25 MG TAB PO SCH (19:43)
[2021-03-15 19:59] LABS: Glucose,Whole Blood 145 mg/dL (75-99)
[2021-03-16] MEDS: QUEtiapine 25 MG TAB PO PRN (00:35)
[2021-03-16] MEDS ORDERED: QUEtiapine 25 MG TAB PO ONE (01:15)
[2021-03-16] MEDS ORDERED: HALOPERIDOL LACTATE 5 MG/ML 1 ML VIAL IM ONE (01:35)
[2021-03-16] MEDS ORDERED: MORPHINE SULFATE 2 MG/ML SYRINGE IVP ONE ×2 (02:25→03:45)
[2021-03-16 07:01] LABS: Glucose,Whole Blood 168 mg/dL (75-99)
[2021-03-16] MEDS: ALBUTEROL HFA INHALER INHALATION SCH ×4 (08:22→20:46)
[2021-03-16] MEDS: SYMBICORT 160-4.5 MCG INHALER INHALATION SCH ×2 (08:22→20:46)
[2021-03-16] MEDS: INSULIN ASPART (NovoLOG) 100 UNIT/ML VIAL SQ SCH ×8 (09:22→20:53)
[2021-03-16] MEDS: ENOXAPARIN 40 MG/0.4 ML SYRINGE SQ SCH (09:22)
[2021-03-16] MEDS: ASPIRIN 81 MG PO SCH (09:23)
[2021-03-16] MEDS: COLCHICINE 0.6 MG EACH PO SCH (09:23)
[2021-03-16] MEDS: FUROSEMIDE 10 MG/ML 4 ML VIAL IV SCH ×2 (09:23→19:20)
[2021-03-16] MEDS: ASCORBIC ACID 500 MG TAB PO SCH ×2 (09:24→19:20)
[2021-03-16] MEDS: MAGNESIUM OXIDE 400 MG TAB PO SCH (09:24)
[2021-03-16] MEDS: ZINC SULFATE 220 MG CAP PO SCH (09:24)
[2021-03-16] MEDS: PANTOPRAZOLE 40 MG TABLET PO SCH (09:24)
[2021-03-16] MEDS: dexAMETHasone 2 MG TAB PO SCH ×2 (09:24→19:20)
[2021-03-16] MEDS: QUEtiapine 25 MG TAB PO SCH ×2 (09:24→19:19)
[2021-03-16] MEDS: allopurinoL 100 MG TAB PO SCH (09:24)
[2021-03-16] MEDS: CHOLECALCIFEROL 125 MCG (5000 IU) TABLET PO SCH (09:24)
[2021-03-16] MEDS: TAMSULOSIN 0.4 MG CAP.ER.24H PO SCH (09:24)
[2021-03-16] MEDS: METOPROLOL TARTRATE 50 MG TAB PO SCH (09:24)
[2021-03-16] MEDS: ISOSORBIDE MONONITRATE ER 30 MG TAB.ER.24H PO SCH (09:24)
[2021-03-16] MEDS: FAMOTIDINE 20 MG TAB PO SCH ×2 (09:24→19:20)
[2021-03-16] MEDS: PRAMIPEXOLE 1 MG TAB PO SCH (09:25)
[2021-03-16 09:28] LABS: HCT 40.3 % (39.6-50.0); HGB 12.4 g/dL (13.0-17.0); MCH 31.1 pg (27.0-32.0); MCHC 30.8 g/dL (32.0-37.0); Mean Platelet Volume 11.7 fL (9.5-12.2); Platelet Count 180 X 10*3/uL (140-440); RBC 3.99 X 10*6/uL (4.40-5.60); RDW 15.1 % (11.5-14.5); WBC 16.55 X 10*3/uL (4.50-10.00)
[2021-03-16 10:26] LABS: African American GFR (CKD) 63.2 (60.0-200.0); Anion Gap 14.4 mmol/L (10.00-18.00); BUN/Creat Ratio 36.38 Ratio (12.00-20.00); Blood Urea Nitrogen 47.3 mg/dL (9.0-27.0); Calcium 8.4 mg/dL (8.7-10.3); Carbon Dioxide 27.6 mmol/L (20.0-27.5); Non-African American GFR(CKD) 54.5 (60.0-200.0); Potassium 3.8 mmol/L (3.5-5.5)
[2021-03-16 11:19] LABS: Glucose,Whole Blood 162 mg/dL (75-99)
[2021-03-16] MEDS: REMDESIVIR 100 MG in SODIUM CHLORIDE 0.9% 250 ML IVPB SCH (12:10)
--- NOTE | 2021-03-16 12:31 | P.PN ---
Subjective Progress Note Date: 03/16/21 Principal diagnosis: Dyspnea This 71-year-old white male patient who follows with Dr. Torres in the pulmonary clinic for his history of advanced COPD on home oxygen patient usually wears 4 L on a regular basis, he is prednisone dependent and usually takes 20 mg on a regular basis, coronary artery disease, diabetes mellitus type 2, previous history of CVA, hypertension, hyperlipidemia, previous history of pneumonia, chronic kidney disease unspecified, sleep apnea, BPH, osteoarthritis. Patient presented to the emergency department on 03/12/2021 for evaluation of worsening dyspnea. Patient had a fever at home up to 101.7F. He saw Dr. Torres on Friday03/09/2021 and his antibiotics were changed. Patient was also given a prednisone taper and was placed on Levaquin. Has chronic swelling in his lower extremities which is unchanged. Of note patient was tested for COVID-19 on 03/02/2021 and was found to be negative. During this visit to the ED he tested positive on 03/12/2021. Patient has been vaccinated against COVID-19. His chest x-ray shows increasing diffuse interstitial opacity, with the possibility of fluid overload/CHF, interstitial pneumonitis, atypical pneumonia or chronic pneumonia. His blood work on admission has been reviewed showing white blood cell count of 12.7, hemoglobin of 12.3, his INR 0.9, sodium is 136, potassium is 4.2, chloride is 97, CO2 31, BUN is 55, creatinine is 1.28, troponin is less than 0.012, proBNP is within normal limits at 206. Patient has been started on Decadron 6 blood gram daily which we will increase to twice daily, he was placed on albuterol and Symbicort, he is on subcutaneous heparin 5000 units every 12 h ours, and the patient is within the window for Remdesivir which she will be started on today. On 03/14/2021 patient seen in follow-up on medical surgical floor, he is breathing comfortably, she is resting in bed, no worsening dyspnea, he is currently on 12 L of oxygen his pulse ox is 92%, does have mildly congested cough, no chest discomfort, blood pressure is stable, his been afebrile. Lower extremity Dopplers showed no evidence of DVT. Today's labs have been reviewed, his white count is 16.9, hemoglobin is 12.8, sodium is 146, the rest of electrolytes are within normal limits, BUN is 40, creatinine is 1.2. LDH was 526, not significantly elevated, CRP was 13.6, follow-up in addition he remains on prophylactic dose Lovenox, he is on Decadron 6 mg twice daily. On 03/15/2021 patient seen in follow-up on medical surgical floor. He is awake and alert, he is currently on 10 L of oxygen, down from 12 L on yesterday's exam, he states his breathing is improving, his coughing less, his been afebrile, hemodynamically stable, no chest discomfort. His been ambulating about the room, tolerates activity well. Today's chest x-ray showing mild cardiomegaly, and stable diffuse interstitial changes and patchy peripheral infiltrates. Today's labs have been reviewed, his white blood cell count is 21.2, hemoglobin is 13.3, his d-dimer is improved and is down to 1.23, sodium is 146, the rest of the electrolytes are within normal limits, BUN is 44, creatinine is 1.3. His LDH is 625, slightly increased from most previous value of 526, CRP is improved and is down to 4.7 on today's labs, pro-calcitonin level is negative 2 at 0.16, and 0.19. Blood cultures have shown no growth. He cur rently continues on Decadron 6 mg twice daily, he is on Lovenox 40 mg once daily, he is on IV Lasix 40 mg every 12 hours, and we started him on the Remdesivir yesterday and today is day 3 of treatment. On 03/16/2021 patient seen in follow-up on medical surgical floor, he is awake and alert, in no acute distress, he states his breathing is about the same, not any worse, however his oxygen demand has increased to 15 L, his pulse ox is 88- 90%, his been afebrile, blood pressures been stable, denies any chest discomfort, no hemoptysis, lung sounds reveal scattered crackles mostly at bilateral bases, his chest x-ray from yesterday showed mild cardiomegaly, diffuse interstitial changes. Patient has been on IV Lasix 40 mg twice daily unfortunately has not fluid balance is very difficult to estimate, his lower extremity edema appears to be slightly better. He continues on Remdesivir, and today is day 4 of treatment. Today's labs have been reviewed, his white count is improving and is down to 16.5, hemoglobin is 12.4, his d-dimer was improving on yesterday's labs, and was down to 1.23, patient remains on prophylactic dose Lovenox 40 mg daily, BUN is 47, creatinine is 1.3, potassium is 3.8, sodium is 141, pro-calcitonin level was negative 2. Blood cultures were negative 2. Objective - Vital Signs Vital signs: Vital Signs Temp 98 F 03/16/21 09:09 Pulse 70 03/16/21 09:09 Resp 19 03/16/21 09:09 BP 154/85 03/16/21 09:09 Pulse Ox 88 L 03/16/21 09:09 Intake & Output 03/15/21 03/16/21 03/16/21 18:59 06:59 18:59 Intake Total 800 Balance 800 Intake: Oral 800 Other: # Voids 2 2 - Exam GENERAL EXAM: Alert, very pleasant, 71-year-old white male, currently on 15 L of oxygen a pulse ox of 88-93%, comfortable in no apparent distress. HEAD: Normocephalic/atraumatic. EYES: Normal reaction of pupils, equal size. Conjunctiva pink, sclera white. NOSE: Clear with pink turbinates. THROAT: No erythema or exudates. NECK: No masses, no JVD, no thyroid enlargement, no adenopathy. CHEST: No chest wall deformity. Symmetrical expansion. LUNGS: Equal air entry with diffuse crackles, and a few rhonchi CVS: Regular rate and rhythm, normal S1 and S2, no gallops, no murmurs, no rubs ABDOMEN: Soft, nontender. No hepatosplenomegaly, normal bowel sounds, no guarding or rigidity. EXTREMITIES: No clubbing, plus lower extremity edema with chronic venous stasis, no cyanosis, 2+ pulses and upper and lower extremities. MUSCULOSKELETAL: Muscle strength and tone normal. SPINE: No scoliosis or deformity SKIN: No rashes CENTRAL NERVOUS SYSTEM: Alert and oriented -3. No focal deficits, tone is normal in all 4 extremities. PSYCHIATRIC: Alert and oriented -3. Appropriate affect. Intact judgment and insight. - Labs CBC & Chem 7: 03/16/21 06:33 03/16/21 06:33 Labs: Abnormal Lab Results - Last 24 Hours (Table) 03/15/21 03/15/21 03/15/21 Range/Units 12:56 14:31 16:51 WBC (4.50-10.00) X 10*3/uL RBC (4.40-5.60) X 10*6/uL Hgb (13.0-17.0) g/dL MCV (80.0-97.0) fL MCHC (32.0-37.0) g/dL RDW (11.5-14.5) % Carbon Dioxide (20.0-27.5) mmol/L BUN (9.0-27.0) mg/dL Est GFR (CKD-EPI)NonAf (60.0-200.0) BUN/Creatinine Ratio (12.00-20.00) Ratio Glucose (70-110) mg/dL POC Glucose (mg/dL) 163 H 170 H 124 H (75-99) mg/dL Calcium (8.7-10.3) mg/dL 03/15/21 03/16/21 03/16/21 Range/Units 19:58 06:33 06:33 WBC 16.55 H (4.50-10.00) X 10*3/uL RBC 3.99 L (4.40-5.60) X 10*6/uL Hgb 12.4 L (13.0-17.0) g/dL MCV 101.0 H (80.0-97.0) fL MCHC 30.8 L (32.0-37.0) g/dL RDW 15.1 H (11.5-14.5) % Carbon Dioxide 27.6 H (20.0-27.5) mmol/L BUN 47.3 H (9.0-27.0) mg/dL Est GFR (CKD-EPI)NonAf 54.5 L (60.0-200.0) BUN/Creatinine Ratio 36.38 H (12.00-20.00) Ratio Glucose 179 H (70-110) mg/dL POC Glucose (mg/dL) 145 H (75-99) mg/dL Calcium 8.4 L (8.7-10.3) mg/dL 03/16/21 03/16/21 Range/Units 06:59 11:07 WBC (4.50-10.00) X 10*3/uL RBC (4.40-5.60) X 10*6/uL Hgb (13.0-17.0) g/dL MCV (80.0-97.0) fL MCHC (32.0-37.0) g/dL RDW (11.5-14.5) % Carbon Dioxide (20.0-27.5) mmol/L BUN (9.0-27.0) mg/dL Est GFR (CKD-EPI)NonAf (60.0-200.0) BUN/Creatinine Ratio (12.00-20.00) Ratio Glucose (70-110) mg/dL POC Glucose (mg/dL) 168 H 162 H (75-99) mg/dL Calcium (8.7-10.3) mg/dL Microbiology - Last 24 Hours (Table) 03/12/21 16:28 Blood Culture - Preliminary Blood No Growth after 72 hours 03/12/21 16:28 Blood Culture - Preliminary Blood No Growth after 72 hours Assessment and Plan Plan: Assessment: #1. Acute on chronic hypoxic respiratory failure related to acute COVID-19 related pneumonia, patient tested positive on 03/12/2021. Patient is vaccinated against COVID-19. His symptoms have worsened over last week, patient will be started on Remdesivir today on 03/13/2021 #2. Acute exacerbation of COPD #3. Chronic COPD, advanced, with a baseline FEV1 of 1.71 L or FEV1 of 58% usually on home oxygen at 4 L #4. Recent 2 hospitalizations for acute exacerbation of COPD in early February, during which patient tested negative for COVID-19, urinalysis was also negative, influenza A and B were negative #5. Diabetes mellitus type 2 #6. Hypertension, #7. Hyperlipidemia #8. History of coronary artery disease with previous stenting #9. History of CHF, unspecified #10. History of CVA/TIA #11. Osteoarthritis #12. Chronic knee disease, unspecified #13. Chronic venous insufficiency #14. 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 Sleep apnea does not wear CPAP #17. Marijuana use #18. Elevated d-dimer related to acute COVID-19 infection, we'll obtain lower extremity Dopplers and will consider CT angiogram of the chest Plan: FiO2 has increased on today's Continue Remdesivir, day 4 of treatment Continue with twice daily dosing of Decadron Continue Lovenox 40 mg daily Today's labs have been noted, Continue IV diuretics Daily weights, accurate intake and output Continue inhaled bronchodilators Continue weaning FiO2 to keep O2 sats at 88% and above If continues to escalate on his FiO2 requirements will consider Baricitinib I performed a history & physical examination of the patient and discussed their management with my nurse practitioner, Skylar Mckoy. I reviewed the nurse practitioner's note and agree with the documented findings and plan of care. Lung sounds are positive for crackles and rhonchi throughout the lung kim[place]. The findings and the impression was discussed with the patient. I attest to the documentation by the nurse practitioner. Time with Patient: Less than 30
--- NOTE | 2021-03-16 13:01 | P.PN ---
Subjective Patient is a 71-year-old white male with a chronic medical problems a chronic hypoxic respiratory failure uses about 4 L of oxygen at home came in the with complaints of shortness of breath and cough restarted couple days ago was also having fever restarted couple days ago. Patient is found to have COVID-19 patient has multiple other medical problems chronically and patient does have history of COPD possible chronic diastolic dysfunction patient was on IV Lasix in the past. 03/13/2021 Patient evaluated today sitting on the edge of the bed. He is requiring oxygen at 7L HF with a saturation of 91%. Blood pressure 148/76, heart rate 74, temp 98.2. Labs today include WBC of 13.08, hgb 12.3, sodium 143, potassium 4.0, AST 55, ALT 94, LDH 526, CRP 13.60. DD 5.97, doppler negative for bilateral DVT. Pulmonary consultation today who increased decadron to twice a day and started the patient on remdesivir. Patient is also on subcu heparin, zinc, vitamins. 03/14/2021 Patient has been able to ambulate around his room while on oxygen. Vital signs included temperature of 91, heart rate 66 sinus rhythm, respirations 18, blood pressure 139/65 and he is 90% on 12 L high flow nasal cannula. Oxygen saturation has been progressively increasing. Labs today show a white count of 16.99, hemoglobin 12.8, sodium 146, glucose in the 70s, AST 68, ALT 96. Will repeat a chest x-ray in the morning as well as repeat labs and inflammatory markers. He continues on Lovenox, zinc, vitamins, he was started on IV remdesivir from pulmonary services today. Procalcitonin pending. Apparently patient has been refusing ketorolac eyedrops as he states that he is done taking outpatient; discontinued the order. 03/15/2021 Patient says he is feeling better patient the arms and requirements went up yesterday was on 10 L now came down to 8 L patient overall feels better but as per the nursing staff patient has been occasionally getting confused which is not unexpected for for him as he had owners in the past and patient is also on stress steroids which can do that. Patient was started on IV Lasix because of increased swelling in bilateral lower extremities patient barely takes one 20 mg of by mouth Lasix at home although it was documented as 20 mg. We'll continue with IV Lasix will monitor I's and O's will continue to wean off his oxygen. 03/16/2021 Patient feels better but his oxygen requirements remain the same patient remains on IV Lasix creatinine is around 1.3 compared to 1.2 on admission will continue to closely monitor his kidney function and the input and output. Patient remains on IV steroids blood sugars are within normal limits leukocytosis improved a bit. Constitutional: Denied any fatigue denied any fever. Cardio vascular: denied any chest pain, palpitations Gastrointestinal denied any nausea vomiting Pulmonary: as mentioned above Neurologic denied any new focal deficits All inpatient medications were reviewed and appropriate changes in these medications as dictated in the interval history and assessment and plan. PHYSICAL EXAMINATION: GENERAL: The patient is alert and oriented x3, mildly distressed when ambulating Obesity HEENT: Pupils are round and equally reacting to light. EOMI. No scleral icterus. No conjunctival pallor. Normocephalic, atraumatic. No pharyngeal erythema. No thyromegaly. CARDIOVASCULAR: S1 and S2 present. No murmurs, rubs, or gallops. PULMONARY: Coarse scattered rhonchi throughout ABDOMEN: Soft, nontender, nondistended, normoactive bowel sounds. No palpable organomegaly. MUSCULOSKELETAL: No joint swelling or deformity. EXTREMITIES: No cyanosis, clubbing, or lower extremity edema NEUROLOGICAL: Gross neurological examination did not reveal any focal deficits. SKIN: No rashes. Assessment and plan -Acute on chronic hypoxic respiratory failure secondary to COVID-19 pneumonia wears 4L of oxygen at home, now requiring 8 L of oxygen via HF cannula - Covid 19 pneumonia -Leukocytosis secondary to above -Congestive heart failure chronic diastolic dysfunction without any acute exacerbation at this time patient the BNP is only 206, most recent echo shows an EF of greater than 55%. -Acute COPD exacerbation -Mild transaminitis which is better at compared to his previous admission, chronic no further intervention at this time COVID-19 can cause transaminitis is Possible congestive heart failure chronic diastolic dysfunction with mild acute exacerbation -Elevated inflammatory markers of COVID-19 -Elevated DD secondary to COVID-19 infection, doppler negative for bilateral DVT -Chronic kidney disease stage III -Gastroesophageal reflux disease -Coronary artery disease -Type 2 diabetes mellitus insulin-dependent -Diabetic peripheral neuropathy -Obstructive sleep apnea -Chronic hypoxic respiratory failure Secondary to COPD and the sleep apnea -Hypertension -Hyperlipidemia -Benign prostatic hypertrophy -Chronic low back pain -History of DVT in the past for which patient is on not on any anti-coagulation presently DVT prophylaxis: Lovenox GI Prophylaxis: Protonix Plan Continue decadron, zinc, vitamins, remdesivir, lovenox Continue bronchodilators Insulin coverage, will made adjustments as needed for glycemic control Continue all other supportive care Chest xray f/u in AM Repeat labs/inflammatory markers in AM Prognosis is guarded for this patient. Objective - Vital Signs Vital signs: Vital Signs Temp 98 F 03/16/21 09:09 Pulse 70 03/16/21 09:09 Resp 19 03/16/21 09:09 BP 154/85 03/16/21 09:09 Pulse Ox 88 L 03/16/21 09:09 Intake & Output 03/15/21 03/16/21 03/16/21 18:59 06:59 18:59 Intake Total 800 Balance 800 Intake: Oral 800 Other: # Voids 2 2 - Labs CBC & Chem 7: 03/16/21 06:33 03/16/21 06:33 Labs: Abnormal Lab Results - Last 24 Hours (Table) 03/15/21 03/15/21 03/15/21 Range/Units 14:31 16:51 19:58 WBC (4.50-10.00) X 10*3/uL RBC (4.40-5.60) X 10*6/uL Hgb (13.0-17.0) g/dL MCV (80.0-97.0) fL MCHC (32.0-37.0) g/dL RDW (11.5-14.5) % Carbon Dioxide (20.0-27.5) mmol/L BUN (9.0-27.0) mg/dL Est GFR (CKD-EPI)NonAf (60.0-200.0) BUN/Creatinine Ratio (12.00-20.00) Ratio Glucose (70-110) mg/dL POC Glucose (mg/dL) 170 H 124 H 145 H (75-99) mg/dL Calcium (8.7-10.3) mg/dL 03/16/21 03/16/21 03/16/21 Range/Units 06:33 06:33 06:59 WBC 16.55 H (4.50-10.00) X 10*3/uL RBC 3.99 L (4.40-5.60) X 10*6/uL Hgb 12.4 L (13.0-17.0) g/dL MCV 101.0 H (80.0-97.0) fL MCHC 30.8 L (32.0-37.0) g/dL RDW 15.1 H (11.5-14.5) % Carbon Dioxide 27.6 H (20.0-27.5) mmol/L BUN 47.3 H (9.0-27.0) mg/dL Est GFR (CKD-EPI)NonAf 54.5 L (60.0-200.0) BUN/Creatinine Ratio 36.38 H (12.00-20.00) Ratio Glucose 179 H (70-110) mg/dL POC Glucose (mg/dL) 168 H (75-99) mg/dL Calcium 8.4 L (8.7-10.3) mg/dL 03/16/21 Range/Units 11:07 WBC (4.50-10.00) X 10*3/uL RBC (4.40-5.60) X 10*6/uL Hgb (13.0-17.0) g/dL MCV (80.0-97.0) fL MCHC (32.0-37.0) g/dL RDW (11.5-14.5) % Carbon Dioxide (20.0-27.5) mmol/L BUN (9.0-27.0) mg/dL Est GFR (CKD-EPI)NonAf (60.0-200.0) BUN/Creatinine Ratio (12.00-20.00) Ratio Glucose (70-110) mg/dL POC Glucose (mg/dL) 162 H (75-99) mg/dL Calcium (8.7-10.3) mg/dL Microbiology - Last 24 Hours (Table) 03/12/21 16:28 Blood Culture - Preliminary Blood No Growth after 72 hours 03/12/21 16:28 Blood Culture - Preliminary Blood No Growth after 72 hours
[2021-03-16 16:33] LABS: Glucose,Whole Blood 193 mg/dL (75-99)
[2021-03-16] MEDS: METOPROLOL TARTRATE 25 MG TAB PO SCH (19:19)
[2021-03-16 20:36] LABS: Glucose,Whole Blood 198 mg/dL (75-99)
[2021-03-17 07:01] LABS: Glucose,Whole Blood 184 mg/dL (75-99)
[2021-03-17 07:52] LABS: African American GFR (CKD) 70 (>60 ml/min/1.73 sqM); Anion Gap 10 mmol/L; Blood Urea Nitrogen 58 mg/dL (9-20); Calcium 8.7 mg/dL (8.4-10.2); Carbon Dioxide 29 mmol/L (22-30); Chloride 100 mmol/L (98-107); Glucose 200 mg/dL (74-99); Non-African American GFR(CKD) 60 (>60 ml/min/1.73 sqM); Potassium 4.3 mmol/L (3.5-5.1); Sodium 139 mmol/L (137-145)
[2021-03-17] MEDS: PANTOPRAZOLE 40 MG TABLET PO SCH (08:22)
[2021-03-17] MEDS: ASPIRIN 81 MG PO SCH (08:22)
[2021-03-17] MEDS: TAMSULOSIN 0.4 MG CAP.ER.24H PO SCH (08:22)
[2021-03-17] MEDS: ZINC SULFATE 220 MG CAP PO SCH (08:22)
[2021-03-17] MEDS: ASCORBIC ACID 500 MG TAB PO SCH ×2 (08:22→19:48)
[2021-03-17] MEDS: allopurinoL 100 MG TAB PO SCH (08:22)
[2021-03-17] MEDS: MAGNESIUM OXIDE 400 MG TAB PO SCH (08:22)
[2021-03-17] MEDS: METOPROLOL TARTRATE 50 MG TAB PO SCH (08:23)
[2021-03-17] MEDS: dexAMETHasone 2 MG TAB PO SCH ×2 (08:23→19:48)
[2021-03-17] MEDS: FAMOTIDINE 20 MG TAB PO SCH ×2 (08:23→19:48)
[2021-03-17] MEDS: CHOLECALCIFEROL 125 MCG (5000 IU) TABLET PO SCH (08:23)
[2021-03-17] MEDS: ISOSORBIDE MONONITRATE ER 30 MG TAB.ER.24H PO SCH (08:23)
[2021-03-17] MEDS: QUEtiapine 25 MG TAB PO SCH ×2 (08:23→19:48)
[2021-03-17] MEDS: COLCHICINE 0.6 MG EACH PO SCH (08:24)
[2021-03-17] MEDS: INSULIN ASPART (NovoLOG) 100 UNIT/ML VIAL SQ SCH ×8 (08:25→20:30)
[2021-03-17] MEDS: ENOXAPARIN 40 MG/0.4 ML SYRINGE SQ SCH (08:26)
[2021-03-17] MEDS: FUROSEMIDE 10 MG/ML 4 ML VIAL IV SCH ×2 (08:26→19:49)
--- NOTE | 2021-03-17 09:38 | P.PN ---
Subjective Patient is a 71-year-old white male with a chronic medical problems a chronic hypoxic respiratory failure uses about 4 L of oxygen at home came in the with complaints of shortness of breath and cough restarted couple days ago was also having fever restarted couple days ago. Patient is found to have COVID-19 patient has multiple other medical problems chronically and patient does have history of COPD possible chronic diastolic dysfunction patient was on IV Lasix in the past. 03/13/2021 Patient evaluated today sitting on the edge of the bed. He is requiring oxygen at 7L HF with a saturation of 91%. Blood pressure 148/76, heart rate 74, temp 98.2. Labs today include WBC of 13.08, hgb 12.3, sodium 143, potassium 4.0, AST 55, ALT 94, LDH 526, CRP 13.60. DD 5.97, doppler negative for bilateral DVT. Pulmonary consultation today who increased decadron to twice a day and started the patient on remdesivir. Patient is also on subcu heparin, zinc, vitamins. 03/14/2021 Patient has been able to ambulate around his room while on oxygen. Vital signs included temperature of 91, heart rate 66 sinus rhythm, respirations 18, blood pressure 139/65 and he is 90% on 12 L high flow nasal cannula. Oxygen saturation has been progressively increasing. Labs today show a white count of 16.99, hemoglobin 12.8, sodium 146, glucose in the 70s, AST 68, ALT 96. Will repeat a chest x-ray in the morning as well as repeat labs and inflammatory markers. He continues on Lovenox, zinc, vitamins, he was started on IV remdesivir from pulmonary services today. Procalcitonin pending. Apparently patient has been refusing ketorolac eyedrops as he states that he is done taking outpatient; discontinued the order. 03/15/2021 Patient says he is feeling better patient the arms and requirements went up yesterday was on 10 L now came down to 8 L patient overall feels better but as per the nursing staff patient has been occasionally getting confused which is not unexpected for for him as he had owners in the past and patient is also on stress steroids which can do that. Patient was started on IV Lasix because of increased swelling in bilateral lower extremities patient barely takes one 20 mg of by mouth Lasix at home although it was documented as 20 mg. We'll continue with IV Lasix will monitor I's and O's will continue to wean off his oxygen. 03/16/2021 Patient feels better but his oxygen requirements remain the same patient remains on IV Lasix creatinine is around 1.3 compared to 1.2 on admission will continue to closely monitor his kidney function and the input and output. Patient remains on IV steroids blood sugars are within normal limits leukocytosis improved a bit. 03/17/2021 Patient has occasional confusional episodes during nighttime she is being well managed by Seroquel. The patient is presently on 15 L of oxygen patient swelling in bilateral lower x-ray significantly improved still has some swelling continue with IV Lasix creatinine remained stable at 1.2 serum sodium within normal limits. Constitutional: Denied any fatigue denied any fever. Cardio vascular: denied any chest pain, palpitations Gastrointestinal denied any nausea vomiting Pulmonary: as mentioned above Neurologic denied any new focal deficits All inpatient medications were reviewed and appropriate changes in these medications as dictated in the interval history and assessment and plan. PHYSICAL EXAMINATION: GENERAL: The patient is alert and oriented x3, mildly distressed when ambulating Obesity HEENT: Pupils are round and equally reacting to light. EOMI. No scleral icterus. No conjunctival pallor. Normocephalic, atraumatic. No pharyngeal erythema. No thyromegaly. CARDIOVASCULAR: S1 and S2 present. No murmurs, rubs, or gallops. PULMONARY: Coarse scattered rhonchi throughout ABDOMEN: Soft, nontender, nondistended, normoactive bowel sounds. No palpable organomegaly. MUSCULOSKELETAL: No joint swelling or deformity. EXTREMITIES: No cyanosis, clubbing, or lower extremity edema NEUROLOGICAL: Gross neurological examination did not reveal any focal deficits. SKIN: No rashes. Assessment and plan -Acute on chronic hypoxic respiratory failure secondary to COVID-19 pneumonia wears 4L of oxygen at home, now requiring 15 L of oxygen via HF cannula - Covid 19 pneumonia -Leukocytosis secondary to above -Congestive heart failure chronic diastolic dysfunction without any acute exacerbation at this time patient the BNP is only 206, most recent echo shows an EF of greater than 55%. -Acute COPD exacerbation -Mild transaminitis which is better at compared to his previous admission, chronic no further intervention at this time COVID-19 can cause transaminitis is Possible congestive heart failure chronic diastolic dysfunction with mild acute exacerbation -Elevated inflammatory markers of COVID-19 -Elevated DD secondary to COVID-19 infection, doppler negative for bilateral DVT -Chronic kidney disease stage III -Gastroesophageal reflux disease -Coronary artery disease -Type 2 diabetes mellitus insulin-dependent -Diabetic peripheral neuropathy -Obstructive sleep apnea -Chronic hypoxic respiratory failure Secondary to COPD and the sleep apnea -Hypertension -Hyperlipidemia -Benign prostatic hypertrophy -Chronic low back pain -History of DVT in the past for which patient is on not on any anti-coagulation presently DVT prophylaxis: Lovenox GI Prophylaxis: Protonix Plan Continue decadron, zinc, vitamins, lovenox Continue bronchodilators Insulin coverage, will made adjustments as needed for glycemic control Continue all other supportive care Chest xray f/u in AM Repeat labs/inflammatory markers in AM Prognosis is guarded for this patient. Objective - Vital Signs Vital signs: Vital Signs Temp 97.2 F L 03/17/21 05:10 Pulse 63 03/17/21 05:10 Resp 21 03/16/21 21:39 BP 170/78 03/17/21 05:10 Pulse Ox 93 L 03/17/21 05:10 Intake & Output 03/16/21 03/17/21 03/17/21 18:59 06:59 18:59 Output Total 1100 Balance -1100 Weight 105 kg 105.1 kg Output: Urine 1100 Other: Voiding Method Toilet # Voids 3 # Bowel Movements 0 - Labs CBC & Chem 7: 03/16/21 06:33 03/17/21 07:17 Labs: Abnormal Lab Results - Last 24 Hours (Table) 03/16/21 03/16/21 03/16/21 Range/Units 06:33 11:07 16:31 Carbon Dioxide 27.6 H (20.0-27.5) mmol/L BUN 47.3 H (9.0-27.0) mg/dL Est GFR (CKD-EPI)NonAf 54.5 L (60.0-200.0) BUN/Creatinine Ratio 36.38 H (12.00-20.00) Ratio Glucose 179 H (70-110) mg/dL POC Glucose (mg/dL) 162 H 193 H (75-99) mg/dL Calcium 8.4 L (8.7-10.3) mg/dL 03/16/21 03/17/21 03/17/21 Range/Units 20:35 06:59 07:17 Carbon Dioxide (20.0-27.5) mmol/L BUN 58 H (9.0-27.0) mg/dL Est GFR (CKD-EPI)NonAf (60.0-200.0) BUN/Creatinine Ratio (12.00-20.00) Ratio Glucose 200 H (70-110) mg/dL POC Glucose (mg/dL) 198 H 184 H (75-99) mg/dL Calcium (8.7-10.3) mg/dL Microbiology - Last 24 Hours (Table) 03/12/21 16:28 Blood Culture - Preliminary Blood No Growth after 96 hours 03/12/21 16:28 Blood Culture - Preliminary Blood No Growth after 96 hours
[2021-03-17] MEDS: SYMBICORT 160-4.5 MCG INHALER INHALATION SCH ×2 (09:49→20:23)
[2021-03-17] MEDS: ALBUTEROL HFA INHALER INHALATION SCH ×4 (09:49→20:23)
[2021-03-17 12:02] LABS: Glucose,Whole Blood 200 mg/dL (75-99)
[2021-03-17] MEDS: REMDESIVIR 100 MG in SODIUM CHLORIDE 0.9% 250 ML IVPB SCH (12:31)
--- NOTE | 2021-03-17 15:19 | P.PN ---
Subjective Progress Note Date: 03/17/21 Principal diagnosis: CoVID pneumonia This 71-year-old white male patient who follows with Dr. Torres in the pulmonary clinic for his history of advanced COPD on home oxygen patient usually wears 4 L on a regular basis, he is prednisone dependent and usually takes 20 mg on a regular basis, coronary artery disease, diabetes mellitus type 2, previous history of CVA, hypertension, hyperlipidemia, previous history of pneumonia, chronic kidney disease unspecified, sleep apnea, BPH, osteoarthritis. Patient presented to the emergency department on 03/12/2021 for evaluation of worsening dyspnea. Patient had a fever at home up to 101.7F. He saw Dr. Torres on Friday03/09/2021 and his antibiotics were changed. Patient was also given a prednisone taper and was placed on Levaquin. Has chronic swelling in his lower extremities which is unchanged. Of note patient was tested for COVID-19 on 03/02/2021 and was found to be negative. During this visit to the ED he tested positive on 03/12/2021. Patient has been vaccinated against COVID-19. His chest x-ray shows increasing diffuse interstitial opacity, with the possibility of fluid overload/CHF, interstitial pneumonitis, atypical pneumonia or chronic pneumonia. His blood work on admission has been reviewed showing white blood cell count of 12.7, hemoglobin of 12.3, his INR 0.9, sodium is 136, potassium is 4.2, chloride is 97, CO2 31, BUN is 55, creatinine is 1.28, troponin is less than 0.012, proBNP is within normal limits at 206. Patient has been started on Decadron 6 blood gram daily which we will increase to twice daily, he was placed on albuterol and Symbicort, he is on subcutaneous heparin 5000 units every 12 hours, and the patient is within the window for Remdesivir which she will be started on today. On 03/14/2021 patient seen in follow-up on medical surgical floor, he is breathing comfortably, she is resting in bed, no worsening dyspnea, he is currently on 12 L of oxygen his pulse ox is 92%, does have mildly congested cough, no chest discomfort, blood pressure is stable, his been afebrile. Lower extremity Dopplers showed no evidence of DVT. Today's labs have been reviewed, his white count is 16.9, hemoglobin is 12.8, sodium is 146, the rest of electrolytes are within normal limits, BUN is 40, creatinine is 1.2. LDH was 526, not significantly elevated, CRP was 13.6, follow-up in addition he remains on prophylactic dose Lovenox, he is on Decadron 6 mg twice daily. On 03/15/2021 patient seen in follow-up on medical surgical floor. He is awake and alert, he is currently on 10 L of oxygen, down from 12 L on yesterday's exam, he states his breathing is improving, his coughing less, his been afebrile, hemodynamically stable, no chest discomfort. His been ambulating about the room, tolerates activity well. Today's chest x-ray showing mild cardiomegaly, and stable diffuse interstitial changes and patchy peripheral infiltrates. Today's labs have been reviewed, his white blood cell count is 21.2, hemoglobin is 13.3, his d-dimer is improved and is down to 1.23, sodium is 146, the rest of the electrolytes are within normal limits, BUN is 44, creatinine is 1.3. His LDH is 625, slightly increased from most previous value of 526, CRP is improved and is down to 4.7 on today's labs, pro-calcitonin level is negative 2 at 0.16, and 0.19. Blood cultures have shown no growth. He currently continues on Decadron 6 mg twice daily, he is on Lovenox 40 mg once daily, he is on IV Lasix 40 mg every 12 hours, and we started him on the Remdesivir yesterday and today is day 3 of treatment. On 03/16/2021 patient seen in follow-up on medical surgical floor, he is awake and alert, in no acute distress, he states his breathing is about the same, not any worse, however his oxygen demand has increased to 15 L, his pulse ox is 88- 90%, his been afebrile, blood pressures been stable, denies any chest discomfort, no hemoptysis, lung sounds reveal scattered crackles mostly at bilateral bases, his chest x-ray from yesterday showed mild cardiomegaly, diffuse interstitial changes. Patient has been on IV Lasix 40 mg twice daily unfortunately has not fluid balance is very difficult to estimate, his lower extremity edema appears to be slightly better. He continues on Remdesivir, and today is day 4 of treatment. Today's labs have been reviewed, his white count is improving and is down to 16.5, hemoglobin is 12.4, his d-dimer was improving on yesterday's labs, and was down to 1.23, patient remains on prophylactic dose Lovenox 40 mg daily, BUN is 47, creatinine is 1.3, potassium is 3.8, sodium is 141, pro-calcitonin level was negative 2. Blood cultures were negative 2. Patient seen today 03/17/2021 in follow-up on the regular medical floor. He is currently sitting up the bedside. Awake and alert in no acute distress. He denies any worsening shortness of breath, cough or can just in. He is having some confusion at nighttime and pulling at his oxygen. He is currently on 15 L high flow nasal cannula with O2 saturations in the low 90s. Not requiring a nonrebreather mask at this point. Sodium 139. Potassium 4.3. Creatinine 1.20. Glucose 200. He is continued on bronchodilators, Lovenox, Decadron, vitamin supplements. Day #5 of Remdesivir. Objective - Vital Signs Vital signs: Vital Signs Temp 97.9 F 03/17/21 14:00 Pulse 72 03/17/21 14:00 Resp 24 03/17/21 10:00 BP 153/75 03/17/21 14:00 Pulse Ox 91 L 03/17/21 14:00 Intake & Output 03/16/21 03/17/21 03/17/21 18:59 06:59 18:59 Output Total 1100 Balance -1100 Weight 105 kg 105.1 kg Output: Urine 1100 Other: Voiding Method Toilet Toilet # Voids 3 # Bowel Movements 0 - Exam GENERAL EXAM: Alert, pleasant, 71-year-old male patient, on 15 L of oxygen a pulse ox of 91-92%, comfortable in no apparent distress. HEAD: Normocephalic/atraumatic. EYES: Normal reaction of pupils, equal size. Conjunctiva pink, sclera white. NOSE: Clear with pink turbinates. THROAT: No erythema or exudates. NECK: No masses, no JVD, no thyroid enlargement, no adenopathy. CHEST: No chest wall deformity. Symmetrical expansion. LUNGS: Equal air entry with diffuse crackles, and a few rhonchi CVS: Regular rate and rhythm, normal S1 and S2, no gallops, no murmurs, no rubs ABDOMEN: Soft, nontender. No hepatosplenomegaly, normal bowel sounds, no gu arding or rigidity. EXTREMITIES: No clubbing, plus lower extremity edema with chronic venous stasis, no cyanosis, 2+ pulses and upper and lower extremities. MUSCULOSKELETAL: Muscle strength and tone normal. SPINE: No scoliosis or deformity SKIN: No rashes CENTRAL NERVOUS SYSTEM: No focal deficits, tone is normal in all 4 extremities. PSYCHIATRIC: Alert and oriented -3. Appropriate affect. Intact judgment and insight. - Labs CBC & Chem 7: 03/16/21 06:33 03/17/21 07:17 Labs: Abnormal Lab Results - Last 24 Hours (Table) 03/16/21 03/16/21 03/17/21 Range/Units 16:31 20:35 06:59 BUN (9-20) mg/dL Glucose (74-99) mg/dL POC Glucose (mg/dL) 193 H 198 H 184 H (75-99) mg/dL 03/17/21 03/17/21 Range/Units 07:17 12:00 BUN 58 H (9-20) mg/dL Glucose 200 H (74-99) mg/dL POC Glucose (mg/dL) 200 H (75-99) mg/dL Microbiology - Last 24 Hours (Table) 03/12/21 16:28 Blood Culture - Preliminary Blood No Growth after 96 hours 03/12/21 16:28 Blood Culture - Preliminary Blood No Growth after 96 hours Assessment and Plan Assessment: 1 Acute on chronic hypoxic respiratory failure related to acute COVID-19 related pneumonia, patient tested positive on 03/12/2021. Patient is vaccinated against COVID-19. His symptoms have worsened over last week, patient will be started on Remdesivir today on 03/13/2021 2 Acute exacerbation of COPD 3 Chronic COPD, advanced, with a baseline FEV1 of 1.71 L or FEV1 of 58% usually on home oxygen at 4 L 4 Recent 2 hospitalizations for acute exacerbation of COPD in early February, during which patient tested negative for COVID-19, urinalysis was also negative, influenza A and B were negative 5 Diabetes mellitus type 2 6 Hypertension, 7 Hyperlipidemia 8 History of coronary artery disease with previous stenting 9 History of CHF, unspecified 10 History of CVA/TIA 11 Osteoarthritis 12 Chronic knee disease, unspecified 13 Chronic venous insufficiency 14 Chronic back pain 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 Lungs sounds crackles in the bilateral bases. Maintaining O2 saturations in the 90s on 15 L high flow nasal cannula. I discussed the assessment and plan of care with my nurse practitioner, Judi Crawford. I attest to the above note as dictated by her.
[2021-03-17 16:01] LABS: Glucose,Whole Blood 261 mg/dL (75-99)
[2021-03-17 19:48] LABS: Glucose,Whole Blood 329 mg/dL (75-99)
[2021-03-17] MEDS: METOPROLOL TARTRATE 25 MG TAB PO SCH (19:48)
[2021-03-17] MEDS: PRAMIPEXOLE 1 MG TAB PO SCH (20:29)
[2021-03-18 07:07] LABS: Glucose,Whole Blood 170 mg/dL (75-99)
[2021-03-18] MEDS: SYMBICORT 160-4.5 MCG INHALER INHALATION SCH ×2 (07:59→19:31)
[2021-03-18] MEDS: ALBUTEROL HFA INHALER INHALATION SCH ×4 (07:59→19:31)
[2021-03-18] MEDS: CHOLECALCIFEROL 125 MCG (5000 IU) TABLET PO SCH (08:00)
[2021-03-18] MEDS: TAMSULOSIN 0.4 MG CAP.ER.24H PO SCH (08:00)
[2021-03-18] MEDS: ZINC SULFATE 220 MG CAP PO SCH (08:00)
[2021-03-18] MEDS: ASCORBIC ACID 500 MG TAB PO SCH ×2 (08:00→20:25)
[2021-03-18] MEDS: FAMOTIDINE 20 MG TAB PO SCH (08:00)
[2021-03-18] MEDS: QUEtiapine 25 MG TAB PO SCH ×2 (08:01→20:24)
[2021-03-18] MEDS: allopurinoL 100 MG TAB PO SCH (08:01)
[2021-03-18] MEDS: ISOSORBIDE MONONITRATE ER 30 MG TAB.ER.24H PO SCH (08:01)
[2021-03-18] MEDS: MAGNESIUM OXIDE 400 MG TAB PO SCH (08:01)
[2021-03-18] MEDS: METOPROLOL TARTRATE 50 MG TAB PO SCH (08:01)
[2021-03-18] MEDS: PANTOPRAZOLE 40 MG TABLET PO SCH (08:01)
[2021-03-18] MEDS: ASPIRIN 81 MG PO SCH (08:01)
[2021-03-18] MEDS: dexAMETHasone 2 MG TAB PO SCH (08:02)
[2021-03-18] MEDS: ENOXAPARIN 40 MG/0.4 ML SYRINGE SQ SCH (08:02)
[2021-03-18] MEDS: COLCHICINE 0.6 MG EACH PO SCH (08:02)
[2021-03-18] MEDS: INSULIN ASPART (NovoLOG) 100 UNIT/ML VIAL SQ SCH ×8 (08:03→21:01)
[2021-03-18] MEDS: FUROSEMIDE 10 MG/ML 4 ML VIAL IV SCH ×3 (08:03→23:56)
[2021-03-18 09:35] LABS: Basophils # (A) 0.07 X 10*3/uL (0.00-0.10); Basophils % (A) 0.4 %; Eosinophils # (A) 0 X 10*3/uL (0.04-0.35); Eosinophils % (A) 0 %; HCT 42.3 % (39.6-50.0); HGB 13.2 g/dL (13.0-17.0); Lymphocytes # (A) 0.68 X 10*3/uL (0.90-5.00); Lymphocytes % (A) 4.2 %; MCH 31.7 pg (27.0-32.0); MCHC 31.2 g/dL (32.0-37.0); MCV 101.4 fL (80.0-97.0); Mean Platelet Volume 12.1 fL (9.5-12.2); Monocytes # (A) 0.58 X 10*3/uL (0.20-1.00); Monocytes % (A) 3.5 %; Neutrophils # (A) 14.48 X 10*3/uL (1.80-7.70); Neutrophils % (A) 88.7 %; Platelet Count 169 X 10*3/uL (140-440); RBC 4.17 X 10*6/uL (4.40-5.60); WBC 16.34 X 10*3/uL (4.50-10.00)
[2021-03-18 09:42] LABS: African American GFR (CKD) 55.4 (60.0-200.0); Albumin 3.2 g/dL (3.8-4.9); Albumin/Globulin Ratio 1.46 (1.60-3.17); Anion Gap 13.9 mmol/L (10.00-18.00); BUN/Creat Ratio 37.66 Ratio (12.00-20.00); Blood Urea Nitrogen 54.6 mg/dL (9.0-27.0); C Reactive Protein 1.7 mg/dL (0.00-0.80); Calcium 8.6 mg/dL (8.7-10.3); Carbon Dioxide 29.8 mmol/L (20.0-27.5); Globulin 2.2 g/dL (1.6-3.3); Non-African American GFR(CKD) 47.8 (60.0-200.0); Potassium 4.5 mmol/L (3.5-5.5); Total Bilirubin 0.5 mg/dL (0.30-1.20); Total Protein 5.4 g/dL (6.2-8.2)
[2021-03-18] MEDS ORDERED: BARICITINIB 2 MG TABLET PO SCH (10:00)
--- NOTE | 2021-03-18 10:59 | P.PN ---
Subjective Patient is a 71-year-old white male with a chronic medical problems a chronic hypoxic respiratory failure uses about 4 L of oxygen at home came in the with complaints of shortness of breath and cough restarted couple days ago was also having fever restarted couple days ago. Patient is found to have COVID-19 patient has multiple other medical problems chronically and patient does have history of COPD possible chronic diastolic dysfunction patient was on IV Lasix in the past. 03/13/2021 Patient evaluated today sitting on the edge of the bed. He is requiring oxygen at 7L HF with a saturation of 91%. Blood pressure 148/76, heart rate 74, temp 98.2. Labs today include WBC of 13.08, hgb 12.3, sodium 143, potassium 4.0, AST 55, ALT 94, LDH 526, CRP 13.60. DD 5.97, doppler negative for bilateral DVT. Pulmonary consultation today who increased decadron to twice a day and started the patient on remdesivir. Patient is also on subcu heparin, zinc, vitamins. 03/14/2021 Patient has been able to ambulate around his room while on oxygen. Vital signs included temperature of 91, heart rate 66 sinus rhythm, respirations 18, blood pressure 139/65 and he is 90% on 12 L high flow nasal cannula. Oxygen saturation has been progressively increasing. Labs today show a white count of 16.99, hemoglobin 12.8, sodium 146, glucose in the 70s, AST 68, ALT 96. Will repeat a chest x-ray in the morning as well as repeat labs and inflammatory markers. He continues on Lovenox, zinc, vitamins, he was started on IV remdesivir from pulmonary services today. Procalcitonin pending. Apparently patient has been refusing ketorolac eyedrops as he states that he is done taking outpatient; discontinued the order. 03/15/2021 Patient says he is feeling better patient the arms and requirements went up yesterday was on 10 L now came down to 8 L patient overall feels better but as per the nursing staff patient has been occasionally getting confused which is not unexpected for for him as he had owners in the past and patient is also on stress steroids which can do that. Patient was started on IV Lasix because of increased swelling in bilateral lower extremities patient barely takes one 20 mg of by mouth Lasix at home although it was documented as 20 mg. We'll continue with IV Lasix will monitor I's and O's will continue to wean off his oxygen. 03/16/2021 Patient feels better but his oxygen requirements remain the same patient remains on IV Lasix creatinine is around 1.3 compared to 1.2 on admission will continue to closely monitor his kidney function and the input and output. Patient remains on IV steroids blood sugars are within normal limits leukocytosis improved a bit. 03/17/2021 Patient has occasional confusional episodes during nighttime she is being well managed by Seroquel. The patient is presently on 15 L of oxygen patient swelling in bilateral lower x-ray significantly improved still has some swelling continue with IV Lasix creatinine remained stable at 1.2 serum sodium within normal limits. 03/18/2021 Patient was pretty status is worse today and patient is requiring airvo, patient has significant Swelling in bilateral lower extremities which is a worse compared to yesterday patient is on the Lasix every 12 hourly which will be changed to create hourly and we'll also get the opinion of nephrology testing that his creatinine went up to 1.5. Patient looks tired although patient says he is okay. Patient completed Remdesivir and was started on Barcitinib. Constitutional: Denied any fatigue denied any fever. Cardio vascular: denied any chest pain, palpitations Gastrointestinal denied any nausea vomiting Pulmonary: as mentioned above Neurologic denied any new focal deficits All inpatient medications were reviewed and appropriate changes in these medications as dictated in the interval history and assessment and plan. PHYSICAL EXAMINATION: GENERAL: The patient is alert and oriented x3, mildly distressed when ambulating Obesity HEENT: Pupils are round and equally reacting to light. EOMI. No scleral icterus. No conjunctival pallor. Normocephalic, atraumatic. No pharyngeal erythema. No thyromegaly. CARDIOVASCULAR: S1 and S2 present. No murmurs, rubs, or gallops. PULMONARY: Coarse scattered rhonchi throughout ABDOMEN: Soft, nontender, nondistended, normoactive bowel sounds. No palpable organomegaly. MUSCULOSKELETAL: No joint swelling or deformity. EXTREMITIES: No cyanosis, clubbing, or lower extremity edema NEUROLOGICAL: Gross neurological examination did not reveal any focal deficits. SKIN: No rashes. Assessment and plan -Acute on chronic hypoxic respiratory failure secondary to COVID-19 pneumonia wears 4L of oxygen at home, now requiring oxygen via Airvo. - Covid 19 pneumonia. He on steroids and Barcitinib, Remdesivir -Leukocytosis secondary to above -Congestive heart failure chronic diastolic dysfunction without any acute exacerbation at this time patient the BNP is only 206, most recent echo shows an EF of greater than 55%. -acute renal failure: Probably secondary to heart failure, increasing Lasix consulting nephrology. -Acute COPD exacerbation -Mild transaminitis which is better at compared to his previous admission, chronic no further intervention at this time COVID-19 can cause transaminitis is Possible congestive heart failure chronic diastolic dysfunction with mild acute exacerbation -Elevated inflammatory markers of COVID-19 -Elevated DD secondary to COVID-19 infection, doppler negative for bilateral DVT -Chronic kidney disease stage III -Gastroesophageal reflux disease -Coronary artery disease -Type 2 diabetes mellitus insulin-dependent -Diabetic peripheral neuropathy -Obstructive sleep apnea -Chronic hypoxic respiratory failure Secondary to COPD and the sleep apnea -Hypertension -Hyperlipidemia -Benign prostatic hypertrophy -Chronic low back pain -History of DVT in the past for which patient is on not on any anti-coagulation presently DVT prophylaxis: Lovenox GI Prophylaxis: Protonix Plan Continue decadron, zinc, vitamins, lovenox Continue bronchodilators Insulin coverage, will made adjustments as needed for glycemic control Continue all other supportive care Chest xray f/u in AM Repeat labs/inflammatory markers in AM Prognosis is guarded for this patient. Objective - Vital Signs Vital signs: Vital Signs Temp 97.9 F 03/18/21 10:00 Pulse 72 03/18/21 10:00 Resp 22 03/18/21 10:00 BP 131/76 03/18/21 10:00 Pulse Ox 92 L 03/18/21 10:00 Intake & Output 03/17/21 03/18/21 03/18/21 18:59 06:59 18:59 Output Total 600 Balance -600 Weight 95.5 kg Output: Urine 600 Other: Voiding Method Toilet Toilet - Labs CBC & Chem 7: 03/18/21 05:36 03/18/21 05:36 Labs: Abnormal Lab Results - Last 24 Hours (Table) 03/17/21 03/17/21 03/17/21 Range/Units 12:00 15:59 19:46 WBC (4.50-10.00) X 10*3/uL RBC (4.40-5.60) X 10*6/uL MCV (80.0-97.0) fL MCHC (32.0-37.0) g/dL RDW (11.5-14.5) % Absolute Nucleated RBC (0.00-0.00) X 10*3/uL Immature Gran # (0.00-0.04) X 10*3/uL Neutrophils # (1.80-7.70) X 10*3/uL Lymphocytes # (0.90-5.00) X 10*3/uL Eosinophils # (0.04-0.35) X 10*3/uL NRBC/100 WBC Diff (0.0-0.0) /100 WBCS D-Dimer (<0.60) mg/L FEU Carbon Dioxide (20.0-27.5) mmol/L BUN (9.0-27.0) mg/dL Est GFR (CKD-EPI)AfAm (60.0-200.0) Est GFR (CKD-EPI)NonAf (60.0-200.0) BUN/Creatinine Ratio (12.00-20.00) Ratio Glucose (70-110) mg/dL POC Glucose (mg/dL) 200 H 261 H 329 H (75-99) mg/dL Calcium (8.7-10.3) mg/dL AST (14-35) U/L ALT (10-49) U/L Lactate Dehydrogenase (120-246) U/L C-Reactive Protein (0.00-0.80) mg/dL Total Protein (6.2-8.2) g/dL Albumin (3.8-4.9) g/dL Albumin/Globulin Ratio (1.60-3.17) g/dL 03/18/21 03/18/21 03/18/21 Range/Units 05:36 05:36 05:36 WBC 16.34 H (4.50-10.00) X 10*3/uL RBC 4.17 L (4.40-5.60) X 10*6/uL MCV 101.4 H (80.0-97.0) fL MCHC 31.2 L (32.0-37.0) g/dL RDW 15.0 H (11.5-14.5) % Absolute Nucleated RBC 0.03 H (0.00-0.00) X 10*3/uL Immature Gran # 0.53 H (0.00-0.04) X 10*3/uL Neutrophils # 14.48 H (1.80-7.70) X 10*3/uL Lymphocytes # 0.68 L (0.90-5.00) X 10*3/uL Eosinophils # 0 L (0.04-0.35) X 10*3/uL NRBC/100 WBC Diff 0.2 H (0.0-0.0) /100 WBCS D-Dimer 1.01 H (<0.60) mg/L FEU Carbon Dioxide 29.8 H (20.0-27.5) mmol/L BUN 54.6 H (9.0-27.0) mg/dL Est GFR (CKD-EPI)AfAm 55.4 L (60.0-200.0) Est GFR (CKD-EPI)NonAf 47.8 L (60.0-200.0) BUN/Creatinine Ratio 37.66 H (12.00-20.00) Ratio Glucose 155 H (70-110) mg/dL POC Glucose (mg/dL) (75-99) mg/dL Calcium 8.6 L (8.7-10.3) mg/dL AST 47 H (14-35) U/L ALT 73 H (10-49) U/L Lactate Dehydrogenase 643 H (120-246) U/L C-Reactive Protein 1.70 H (0.00-0.80) mg/dL Total Protein 5.4 L (6.2-8.2) g/dL Albumin 3.2 L (3.8-4.9) g/dL Albumin/Globulin Ratio 1.46 L (1.60-3.17) g/dL 03/18/21 Range/Units 07:06 WBC (4.50-10.00) X 10*3/uL RBC (4.40-5.60) X 10*6/uL MCV (80.0-97.0) fL MCHC (32.0-37.0) g/dL RDW (11.5-14.5) % Absolute Nucleated RBC (0.00-0.00) X 10*3/uL Immature Gran # (0.00-0.04) X 10*3/uL Neutrophils # (1.80-7.70) X 10*3/uL Lymphocytes # (0.90-5.00) X 10*3/uL Eosinophils # (0.04-0.35) X 10*3/uL NRBC/100 WBC Diff (0.0-0.0) /100 WBCS D-Dimer (<0.60) mg/L FEU Carbon Dioxide (20.0-27.5) mmol/L BUN (9.0-27.0) mg/dL Est GFR (CKD-EPI)AfAm (60.0-200.0) Est GFR (CKD-EPI)NonAf (60.0-200.0) BUN/Creatinine Ratio (12.00-20.00) Ratio Glucose (70-110) mg/dL POC Glucose (mg/dL) 170 H (75-99) mg/dL Calcium (8.7-10.3) mg/dL AST (14-35) U/L ALT (10-49) U/L Lactate Dehydrogenase (120-246) U/L C-Reactive Protein (0.00-0.80) mg/dL Total Protein (6.2-8.2) g/dL Albumin (3.8-4.9) g/dL Albumin/Globulin Ratio (1.60-3.17) g/dL Microbiology - Last 24 Hours (Table) 03/12/21 16:28 Blood Culture - Preliminary Blood No Growth after 120 hours 03/12/21 16:28 Blood Culture - Preliminary Blood No Growth after 120 hours
[2021-03-18 11:20] LABS: Glucose,Whole Blood 159 mg/dL (75-99)
--- NOTE | 2021-03-18 11:46 | P.PN ---
Subjective Progress Note Date: 03/18/21 Principal diagnosis: Dyspnea This 71-year-old white male patient who follows with Dr. Torres in the pulmonary clinic for his history of advanced COPD on home oxygen patient usually wears 4 L on a regular basis, he is prednisone dependent and usually takes 20 mg on a regular basis, coronary artery disease, diabetes mellitus type 2, previous history of CVA, hypertension, hyperlipidemia, previous history of pneumonia, chronic kidney disease unspecified, sleep apnea, BPH, osteoarthritis. Patient presented to the emergency department on 03/12/2021 for evaluation of worsening dyspnea. Patient had a fever at home up to 101.7F. He saw Dr. Torres on Friday03/09/2021 and his antibiotics were changed. Patient was also given a prednisone taper and was placed on Levaquin. Has chronic swelling in his lower extremities which is unchanged. Of note patient was tested for COVID-19 on 03/02/2021 and was found to be negative. During this visit to the ED he tested positive on 03/12/2021. Patient has been vaccinated against COVID-19. His chest x-ray shows increasing diffuse interstitial opacity, with the possibility of fluid overload/CHF, interstitial pneumonitis, atypical pneumonia or chronic pneumonia. His blood work on admission has been reviewed showing white blood cell count of 12.7, hemoglobin of 12.3, his INR 0.9, sodium is 136, potassium is 4.2, chloride is 97, CO2 31, BUN is 55, creatinine is 1.28, troponin is less than 0.012, proBNP is within normal limits at 206. Patient has been started on Decadron 6 blood gram daily which we will increase to twice daily, he was placed on albuterol and Symbicort, he is on subcutaneous heparin 5000 units every 12 h ours, and the patient is within the window for Remdesivir which she will be started on today. On 03/14/2021 patient seen in follow-up on medical surgical floor, he is breathing comfortably, she is resting in bed, no worsening dyspnea, he is currently on 12 L of oxygen his pulse ox is 92%, does have mildly congested cough, no chest discomfort, blood pressure is stable, his been afebrile. Lower extremity Dopplers showed no evidence of DVT. Today's labs have been reviewed, his white count is 16.9, hemoglobin is 12.8, sodium is 146, the rest of electrolytes are within normal limits, BUN is 40, creatinine is 1.2. LDH was 526, not significantly elevated, CRP was 13.6, follow-up in addition he remains on prophylactic dose Lovenox, he is on Decadron 6 mg twice daily. On 03/15/2021 patient seen in follow-up on medical surgical floor. He is awake and alert, he is currently on 10 L of oxygen, down from 12 L on yesterday's exam, he states his breathing is improving, his coughing less, his been afebrile, hemodynamically stable, no chest discomfort. His been ambulating about the room, tolerates activity well. Today's chest x-ray showing mild cardiomegaly, and stable diffuse interstitial changes and patchy peripheral infiltrates. Today's labs have been reviewed, his white blood cell count is 21.2, hemoglobin is 13.3, his d-dimer is improved and is down to 1.23, sodium is 146, the rest of the electrolytes are within normal limits, BUN is 44, creatinine is 1.3. His LDH is 625, slightly increased from most previous value of 526, CRP is improved and is down to 4.7 on today's labs, pro-calcitonin level is negative 2 at 0.16, and 0.19. Blood cultures have shown no growth. He cur rently continues on Decadron 6 mg twice daily, he is on Lovenox 40 mg once daily, he is on IV Lasix 40 mg every 12 hours, and we started him on the Remdesivir yesterday and today is day 3 of treatment. On 03/16/2021 patient seen in follow-up on medical surgical floor, he is awake and alert, in no acute distress, he states his breathing is about the same, not any worse, however his oxygen demand has increased to 15 L, his pulse ox is 88- 90%, his been afebrile, blood pressures been stable, denies any chest discomfort, no hemoptysis, lung sounds reveal scattered crackles mostly at bilateral bases, his chest x-ray from yesterday showed mild cardiomegaly, diffuse interstitial changes. Patient has been on IV Lasix 40 mg twice daily unfortunately has not fluid balance is very difficult to estimate, his lower extremity edema appears to be slightly better. He continues on Remdesivir, and today is day 4 of treatment. Today's labs have been reviewed, his white count is improving and is down to 16.5, hemoglobin is 12.4, his d-dimer was improving on yesterday's labs, and was down to 1.23, patient remains on prophylactic dose Lovenox 40 mg daily, BUN is 47, creatinine is 1.3, potassium is 3.8, sodium is 141, pro-calcitonin level was negative 2. Blood cultures were negative 2. On 03/18/2021 patient seen in follow-up on medical surgical floor. Patient was noted to be desaturating on high flow nasal cannula and nonrebreather mask due to the low 80s, and he was initially placed on Airvo at 60 L and FiO2 of 90% in addition to a nonrebreather mask and his pulse ox is only 90%. Clinically he states he feels like his breathing is getting better, he looks comfortable, does not appear to be in any acute distress, not using accessory muscles of breathing, he finished his course of Remdesivir, he currently remains on Decadron 6 mg twice daily, Lovenox 20 mg once daily, she denies any chest discomfort, denies any hemoptysis. Today's labs have been reviewed, his white blood cell count is relatively stable at 16.3, hemoglobin is 13.2, his d-dimer is 1.01, sodium is 145, potassium is 4.5, chloride is 101, BUN is 54 creatinine is 1.5., His LDH is stable at 643, and CRP is improved and is down to 1.7, his pro-calcitonin level was negative on 05/16/2020 at 0.19. Blood cultures show no growth. Objective - Vital Signs Vital signs: Vital Signs Temp 97.9 F 03/18/21 10:00 Pulse 72 03/18/21 10:00 Resp 22 03/18/21 10:00 BP 131/76 03/18/21 10:00 Pulse Ox 92 L 03/18/21 10:00 Intake & Output 03/17/21 03/18/21 03/18/21 18:59 06:59 18:59 Output Total 600 Balance -600 Weight 95.5 kg Output: Urine 600 Other: Voiding Method Toilet Toilet - Exam GENERAL EXAM: Alert, very pleasant, 71-year-old white male, currently on 15 L of oxygen a pulse ox of 88-93%, comfortable in no apparent distress. HEAD: Normocephalic/atraumatic. EYES: Normal reaction of pupils, equal size. Conjunctiva pink, sclera white. NOSE: Clear with pink turbinates. THROAT: No erythema or exudates. NECK: No masses, no JVD, no thyroid enlargement, no adenopathy. CHEST: No chest wall deformity. Symmetrical expansion. LUNGS: Equal air entry with diffuse crackles, and a few rhonchi CVS: Regular rate and rhythm, normal S1 and S2, no gallops, no murmurs, no rubs ABDOMEN: Soft, nontender. No hepatosplenomegaly, normal bowel sounds, no guarding or rigidity. EXTREMITIES: No clubbing, plus lower extremity edema with chronic venous stasis, no cyanosis, 2+ pulses and upper and lower extremities. MUSCULOSKELETAL: Muscle strength and tone normal. SPINE: No scoliosis or deformity SKIN: No rashes CENTRAL NERVOUS SYSTEM: Alert and oriented -3. No focal deficits, tone is normal in all 4 extremities. PSYCHIATRIC: Alert and oriented -3. Appropriate affect. Intact judgment and insight. - Labs CBC & Chem 7: 03/18/21 05:36 03/18/21 05:36 Labs: Abnormal Lab Results - Last 24 Hours (Table) 03/17/21 03/17/21 03/17/21 Range/Units 12:00 15:59 19:46 WBC (4.50-10.00) X 10*3/uL RBC (4.40-5.60) X 10*6/uL MCV (80.0-97.0) fL MCHC (32.0-37.0) g/dL RDW (11.5-14.5) % Absolute Nucleated RBC (0.00-0.00) X 10*3/uL Immature Gran # (0.00-0.04) X 10*3/uL Neutrophils # (1.80-7.70) X 10*3/uL Lymphocytes # (0.90-5.00) X 10*3/uL Eosinophils # (0.04-0.35) X 10*3/uL NRBC/100 WBC Diff (0.0-0.0) /100 WBCS D-Dimer (<0.60) mg/L FEU Carbon Dioxide (20.0-27.5) mmol/L BUN (9.0-27.0) mg/dL Est GFR (CKD-EPI)AfAm (60.0-200.0) Est GFR (CKD-EPI)NonAf (60.0-200.0) BUN/Creatinine Ratio (12.00-20.00) Ratio Glucose (70-110) mg/dL POC Glucose (mg/dL) 200 H 261 H 329 H (75-99) mg/dL Calcium (8.7-10.3) mg/dL AST (14-35) U/L ALT (10-49) U/L Lactate Dehydrogenase (120-246) U/L C-Reactive Protein (0.00-0.80) mg/dL Total Protein (6.2-8.2) g/dL Albumin (3.8-4.9) g/dL Albumin/Globulin Ratio (1.60-3.17) g/dL 03/18/21 03/18/21 03/18/21 Range/Units 05:36 05:36 05:36 WBC 16.34 H (4.50-10.00) X 10*3/uL RBC 4.17 L (4.40-5.60) X 10*6/uL MCV 101.4 H (80.0-97.0) fL MCHC 31.2 L (32.0-37.0) g/dL RDW 15.0 H (11.5-14.5) % Absolute Nucleated RBC 0.03 H (0.00-0.00) X 10*3/uL Immature Gran # 0.53 H (0.00-0.04) X 10*3/uL Neutrophils # 14.48 H (1.80-7.70) X 10*3/uL Lymphocytes # 0.68 L (0.90-5.00) X 10*3/uL Eosinophils # 0 L (0.04-0.35) X 10*3/uL NRBC/100 WBC Diff 0.2 H (0.0-0.0) /100 WBCS D-Dimer 1.01 H (<0.60) mg/L FEU Carbon Dioxide 29.8 H (20.0-27.5) mmol/L BUN 54.6 H (9.0-27.0) mg/dL Est GFR (CKD-EPI)AfAm 55.4 L (60.0-200.0) Est GFR (CKD-EPI)NonAf 47.8 L (60.0-200.0) BUN/Creatinine Ratio 37.66 H (12.00-20.00) Ratio Glucose 155 H (70-110) mg/dL POC Glucose (mg/dL) (75-99) mg/dL Calcium 8.6 L (8.7-10.3) mg/dL AST 47 H (14-35) U/L ALT 73 H (10-49) U/L Lactate Dehydrogenase 643 H (120-246) U/L C-Reactive Protein 1.70 H (0.00-0.80) mg/dL Total Protein 5.4 L (6.2-8.2) g/dL Albumin 3.2 L (3.8-4.9) g/dL Albumin/Globulin Ratio 1.46 L (1.60-3.17) g/dL 03/18/21 03/18/21 Range/Units 07:06 11:18 WBC (4.50-10.00) X 10*3/uL RBC (4.40-5.60) X 10*6/uL MCV (80.0-97.0) fL MCHC (32.0-37.0) g/dL RDW (11.5-14.5) % Absolute Nucleated RBC (0.00-0.00) X 10*3/uL Immature Gran # (0.00-0.04) X 10*3/uL Neutrophils # (1.80-7.70) X 10*3/uL Lymphocytes # (0.90-5.00) X 10*3/uL Eosinophils # (0.04-0.35) X 10*3/uL NRBC/100 WBC Diff (0.0-0.0) /100 WBCS D-Dimer (<0.60) mg/L FEU Carbon Dioxide (20.0-27.5) mmol/L BUN (9.0-27.0) mg/dL Est GFR (CKD-EPI)AfAm (60.0-200.0) Est GFR (CKD-EPI)NonAf (60.0-200.0) BUN/Creatinine Ratio (12.00-20.00) Ratio Glucose (70-110) mg/dL POC Glucose (mg/dL) 170 H 159 H (75-99) mg/dL Calcium (8.7-10.3) mg/dL AST (14-35) U/L ALT (10-49) U/L Lactate Dehydrogenase (120-246) U/L C-Reactive Protein (0.00-0.80) mg/dL Total Protein (6.2-8.2) g/dL Albumin (3.8-4.9) g/dL Albumin/Globulin Ratio (1.60-3.17) g/dL Microbiology - Last 24 Hours (Table) 03/12/21 16:28 Blood Culture - Preliminary Blood No Growth after 120 hours 03/12/21 16:28 Blood Culture - Preliminary Blood No Growth after 120 hours Assessment and Plan Plan: Assessment: #1. Acute on chronic hypoxic respiratory failure related to acute COVID-19 related pneumonia, patient tested positive on 03/12/2021. Patient is vaccinated against COVID-19. His symptoms have worsened over last week, patient will be started on Remdesivir today on 03/13/2021, patient completed Remdesivir on 03/17/2021. Today his oxygenation is worse, and patient was placed on Airvo and nonrebreather and will be started on Baricitinib on 03/18/2021 #2. Acute exacerbation of COPD #3. Chronic COPD, advanced, with a baseline FEV1 of 1.71 L or FEV1 of 58% usually on home oxygen at 4 L #4. Recent 2 hospitalizations for acute exacerbation of COPD in early February, during which patient tested negative for COVID-19, urinalysis was also negative, influenza A and B were negative #5. Diabetes mellitus type 2 #6. Hypertension, #7. Hyperlipidemia #8. History of coronary artery disease with previous stenting #9. History of CHF, unspecified #10. History of CVA/TIA #11. Osteoarthritis #12. Chronic knee disease, unspecified #13. Chronic venous insufficiency #14. 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 Sleep apnea does not wear CPAP #17. Marijuana use #18. Elevated d-dimer related to acute COVID-19 infection, we'll obtain lower extremity Dopplers and will consider CT angiogram of the chest Plan: FiO2 has increased to 60 L/m and FiO2 of 90% and nonrebreather mask Patient has completed his Remdesivir We will try to qualify him for Baricitinib We'll continue with twice daily dosing of Decadron Continue chronic dose Lovenox Today's labs have been noted, Continue IV diuretics Daily weights, accurate intake and output Continue inhaled bronchodilators I performed a history & physical examination of the patient and discussed their management with my nurse practitioner, Skylar Mckoy. I reviewed the nurse practitioner's note and agree with the documented findings and plan of care. Lung sounds are positive for crackles and rhonchi throughout the lung [place]. The findings and the impression was discussed with the patient. I attest to the documentation by the nurse practitioner. Time with Patient: Less than 30
--- NOTE | 2021-03-18 12:21 | XR ---
EXAMINATION TYPE: XR chest 1V portable DATE OF EXAM: 03/18/2021 Comparison: 03/15/2021 Clinical History: 71-year-old male covid Findings: Partially visualized right shoulder arthroplasty. Heart remains mildly enlarged. Continued diffuse in terstitial changes and patchy peripheral mid and lower lung opacities. No significant change. Impression: 1. Stable mild cardiomegaly. 2. Stable diffuse interstitial changes and patchy mid and lower lung peripheral infiltrates which may be seen with COVID pneumonia.
[2021-03-18] MEDS: methylPREDNISolone SOD SUCCI 125 MG/2 ML VIAL IV SCH ×2 (14:15→20:25)
[2021-03-18 18:04] LABS: Glucose,Whole Blood 188 mg/dL (75-99)
[2021-03-18] MEDS: METOPROLOL TARTRATE 25 MG TAB PO SCH (20:24)
[2021-03-18] MEDS: PRAMIPEXOLE 1 MG TAB PO SCH (20:27)
[2021-03-18 20:44] LABS: Glucose,Whole Blood 329 mg/dL (75-99)
[2021-03-19] MEDS: methylPREDNISolone SOD SUCCI 125 MG/2 ML VIAL IV SCH ×4 (01:52→20:51)
[2021-03-19 07:28] LABS: Glucose,Whole Blood 190 mg/dL (75-99)
[2021-03-19] MEDS: TAMSULOSIN 0.4 MG CAP.ER.24H PO SCH (08:10)
[2021-03-19] MEDS: allopurinoL 100 MG TAB PO SCH (08:10)
[2021-03-19] MEDS: QUEtiapine 25 MG TAB PO SCH ×2 (08:10→20:50)
[2021-03-19] MEDS: ZINC SULFATE 220 MG CAP PO SCH (08:11)
[2021-03-19] MEDS: ASPIRIN 81 MG PO SCH (08:11)
[2021-03-19] MEDS: METOPROLOL TARTRATE 50 MG TAB PO SCH (08:11)
[2021-03-19] MEDS: FUROSEMIDE 10 MG/ML 4 ML VIAL IV SCH ×2 (08:11→18:29)
[2021-03-19] MEDS: CHOLECALCIFEROL 125 MCG (5000 IU) TABLET PO SCH (08:11)
[2021-03-19] MEDS: ASCORBIC ACID 500 MG TAB PO SCH ×2 (08:11→20:50)
[2021-03-19] MEDS: FAMOTIDINE 20 MG TAB PO SCH (08:12)
[2021-03-19] MEDS: MAGNESIUM OXIDE 400 MG TAB PO SCH (08:12)
[2021-03-19] MEDS: PANTOPRAZOLE 40 MG TABLET PO SCH (08:12)
[2021-03-19] MEDS: ISOSORBIDE MONONITRATE ER 30 MG TAB.ER.24H PO SCH (08:12)
[2021-03-19] MEDS: ENOXAPARIN 40 MG/0.4 ML SYRINGE SQ SCH (08:13)
[2021-03-19] MEDS: BARICITINIB 2 MG TABLET PO SCH (08:13)
[2021-03-19] MEDS: COLCHICINE 0.6 MG EACH PO SCH (08:15)
[2021-03-19] MEDS: INSULIN ASPART (NovoLOG) 100 UNIT/ML VIAL SQ SCH ×8 (08:15→21:50)
[2021-03-19] MEDS: ALBUTEROL HFA INHALER INHALATION SCH ×4 (09:24→21:46)
[2021-03-19] MEDS: SYMBICORT 160-4.5 MCG INHALER INHALATION SCH ×2 (09:25→21:46)
[2021-03-19 10:36] LABS: Basophils # (A) 0.03 X 10*3/uL (0.00-0.10); Basophils % (A) 0.2 %; Eosinophils # (A) 0 X 10*3/uL (0.04-0.35); Eosinophils % (A) 0 %; HCT 42.6 % (39.6-50.0); HGB 13.4 g/dL (13.0-17.0); Lymphocytes % (A) 5.6 %; MCH 31.7 pg (27.0-32.0); MCHC 31.5 g/dL (32.0-37.0); MCV 100.7 fL (80.0-97.0); Mean Platelet Volume 12.4 fL (9.5-12.2); Monocytes # (A) 0.32 X 10*3/uL (0.20-1.00); Monocytes % (A) 2.6 %; Neutrophils # (A) 11.14 X 10*3/uL (1.80-7.70); Platelet Count 156 X 10*3/uL (140-440); RBC 4.23 X 10*6/uL (4.40-5.60); RDW 14.9 % (11.5-14.5); WBC 12.52 X 10*3/uL (4.50-10.00)
[2021-03-19 11:32] LABS: African American GFR (CKD) 57.8 (60.0-200.0); Albumin 3.4 g/dL (3.8-4.9); Albumin/Globulin Ratio 1.62 (1.60-3.17); Blood Urea Nitrogen 58.8 mg/dL (9.0-27.0); C Reactive Protein 1.3 mg/dL (0.00-0.80); Calcium 8.5 mg/dL (8.7-10.3); Globulin 2.1 g/dL (1.6-3.3); Non-African American GFR(CKD) 49.8 (60.0-200.0); Potassium 4.2 mmol/L (3.5-5.5); Total Bilirubin 0.4 mg/dL (0.30-1.20); Total Protein 5.5 g/dL (6.2-8.2)
[2021-03-19 11:52] LABS: Glucose,Whole Blood 287 mg/dL (75-99)
--- NOTE | 2021-03-19 12:07 | P.PN ---
Subjective Progress Note Date: 03/19/21 Patient is a 71-year-old white male with a chronic medical problems a chronic hypoxic respiratory failure uses about 4 L of oxygen at home came in the with complaints of shortness of breath and cough restarted couple days ago was also having fever restarted couple days ago. Patient is found to have COVID-19 patient has multiple other medical problems chronically and patient does have history of COPD possible chronic diastolic dysfunction patient was on IV Lasix in the past. 03/13/2021 Patient evaluated today sitting on the edge of the bed. He is requiring oxygen at 7L HF with a saturation of 91%. Blood pressure 148/76, heart rate 74, temp 98.2. Labs today include WBC of 13.08, hgb 12.3, sodium 143, potassium 4.0, AST 55, ALT 94, LDH 526, CRP 13.60. DD 5.97, doppler negative for bilateral DVT. P ulmonary consultation today who increased decadron to twice a day and started the patient on remdesivir. Patient is also on subcu heparin, zinc, vitamins. 03/14/2021 Patient has been able to ambulate around his room while on oxygen. Vital signs included temperature of 91, heart rate 66 sinus rhythm, respirations 18, blood pressure 139/65 and he is 90% on 12 L high flow nasal cannula. Oxygen sa turation has been progressively increasing. Labs today show a white count of 16.99, hemoglobin 12.8, sodium 146, glucose in the 70s, AST 68, ALT 96. Will repeat a chest x-ray in the morning as well as repeat labs and inflammatory markers. He continues on Lovenox, zinc, vitamins, he was started on IV remdesivir from pulmonary services today. Procalcitonin pending. Apparently patient has been refusing ketorolac eyedrops as he states that he is done taking outpatient; discontinued the order. 03/15/2021 Patient says he is feeling better patient the arms and requirements went up yesterday was on 10 L now came down to 8 L patient overall feels better but as per the nursing staff patient has been occasionally getting confused which is not unexpected for for him as he had sundowners in the past and patient is also on stress steroids which can do that. Patient was started on IV Lasix because of increased swelling in bilateral lower extremities patient barely takes one 20 mg of by mouth Lasix at home although it was documented as 20 mg. We'll continue with IV Lasix will monitor I's and O's will continue to wean off his oxygen. 03/16/2021 Patient feels better but his oxygen requirements remain the same patient remains on IV Lasix creatinine is around 1.3 compared to 1.2 on admission will continue to closely monitor his kidney function and the input and output. Patient remains on IV steroids blood sugars are within normal limits leukocytosis improved a bit. 03/17/2021 Patient has occasional confusional episodes during nighttime she is being well managed by Seroquel. The patient is presently on 15 L of oxygen patient swelling in bilateral lower x-ray significantly improved still has some swelling continue with IV Lasix creatinine remained stable at 1.2 serum sodium within normal limits. 03/18/2021 Patient was pretty status is worse today and patient is requiring airvo, patient has significant Swelling in bilateral lower extremities which is a worse compared to yesterday patient is on the Lasix every 12 hourly which will be changed to create hourly and we'll also get the opinion of nephrology testing that his creatinine went up to 1.5. Patient looks tired although patient says he is okay. Patient completed Remdesivir and was started on Barcitinib. 03/19/2021 Patient evaluated today sitting in the edge of the bed. He maintains on an aerosol as well as a nonrebreather. Patient has bilateral lower extremity edema which is [place] wrapped, edema is still +2 pitting above the wraps, he continues on IV lasix Q8. He appears to be about a -2.5 L fluid balance in the last 24 hours. Vital signs reviewed, he is afebrile, heart rate 72, respirations 28, blood pressure 137/75 and he is 90% on a 55 L Airvo with a 100% nonrebreather mask. Patient was able to carry on full conversation however once he pauses he does become hypoxic, 87-88%, recovers though. Labs reviewed today include a white count 12.52, hemoglobin 13.4, d-dimer 1.03, sodium 143, potassium 4.2, creatinine 1.4, BUN 58.8. Sugars are in the 200s up to as high as 329, AST is 42, ALT 72 today. LDH is 612, CRP 1.30, which is slightly improved from yesterday. Chest x-ray today shows stable myocardial megaly, stable diffuse interstitial changes and patchy mid and lower lung infiltrates as seen with covid Pneumonia. He continues on Lovenox, vitamins, IV solu-medrol, and baricitinib. He is being followed closely by pulmonary services. Pending nephrology consultation. ROS Constitutional: Denied any fatigue denied any fever. Cardio vascular: denied any chest pain, palpitations Gastrointestinal denied any nausea vomiting Pulmonary: Reports shortness of breath with exertion, mild at rest, reports cough Neurologic denied any new focal deficits All inpatient medications were reviewed and appropriate changes in these medications as dictated in the interval history and assessment and plan. PHYSICAL EXAMINATION: GENERAL: The patient is alert and oriented x3, mildly distressed when ambulating Obesity HEENT: Pupils are round and equally reacting to light. EOMI. No scleral icterus. No conjunctival pallor. Normocephalic, atraumatic. No pharyngeal erythema. No thyromegaly. CARDIOVASCULAR: S1 and S2 present. No murmurs, rubs, or gallops. PULMONARY: Coarse scattered rhonchi throughout ABDOMEN: Soft, nontender, nondistended, normoactive bowel sounds. No palpable organomegaly. MUSCULOSKELETAL: No joint swelling or deformity. EXTREMITIES: No cyanosis, clubbing, or lower extremity edema NEUROLOGICAL: Gross neurological examination did not reveal any focal deficits. SKIN: No rashes. Assessment and plan -Acute on chronic hypoxic respiratory failure secondary to COVID-19 pneumonia wears 4L of oxygen at home, now requiring oxygen via Airvo. - Covid 19 pneumonia. He on steroids and Barcitinib, Remdesivir -Leukocytosis secondary to above -Congestive heart failure chronic diastolic dysfunction without any acute exacerbation at this time patient the BNP is only 206, most recent echo shows an EF of greater than 55%. -acute renal failure: Probably secondary to heart failure, on IV lasix -Acute COPD exacerbation -Mild transaminitis which is better at compared to his previous admission, chronic no further intervention at this time COVID-19 can cause transaminitis is Possible congestive heart failure chronic diastolic dysfunction with mild acute exacerbation -Elevated inflammatory markers of COVID-19 -Elevated DD secondary to COVID-19 infection, doppler negative for bilateral DVT -Chronic kidney disease stage III -Gastroesophageal reflux disease -Coronary artery disease -Type 2 diabetes mellitus insulin-dependent, exacerbated by steroids -Diabetic peripheral neuropathy -Obstructive sleep apnea -Chronic hypoxic respiratory failure Secondary to COPD and the sleep apnea -Hypertension -Hyperlipidemia -Benign prostatic hypertrophy -Chronic low back pain -History of DVT in the past for which patient is on not on any anti-coagulation presently DVT prophylaxis: Lovenox GI Prophylaxis: Protonix Plan Continue Solu-medrole, zinc, vitamins, lovenox Continue bronchodilators Adjust insulin Continue all other supportive care Repeat labs tomorrow Prognosis is guarded for this patient. Objective - Vital Signs Vital signs: Vital Signs Temp 98.3 F 03/19/21 08:00 Pulse 72 03/19/21 08:00 Resp 28 H 03/19/21 08:00 BP 137/75 03/19/21 08:00 Pulse Ox 90 L 03/19/21 09:25 Intake & Output 03/18/21 03/19/21 03/19/21 18:59 06:59 18:59 Output Total 1950 Balance -1950 Output: Urine 1950 Other: Voiding Method Toilet Urinal Urinal # Bowel Movements 1 - Labs CBC & Chem 7: 03/19/21 04:54 03/19/21 04:54 Labs: Abnormal Lab Results - Last 24 Hours (Table) 03/18/21 03/18/21 03/19/21 Range/Units 16:22 20:44 04:54 WBC 12.52 H (4.50-10.00) X 10*3/uL RBC 4.23 L (4.40-5.60) X 10*6/uL MCV 100.7 H (80.0-97.0) fL MCHC 31.5 L (32.0-37.0) g/dL RDW 14.9 H (11.5-14.5) % MPV 12.4 H (9.5-12.2) fL Absolute Nucleated RBC 0.02 H (0.00-0.00) X 10*3/uL Immature Gran # 0.33 H (0.00-0.04) X 10*3/uL Neutrophils # 11.14 H (1.80-7.70) X 10*3/uL Lymphocytes # 0.70 L (0.90-5.00) X 10*3/uL Eosinophils # 0 L (0.04-0.35) X 10*3/uL NRBC/100 WBC Diff 0.2 H (0.0-0.0) /100 WBCS D-Dimer (<0.60) mg/L FEU BUN (9.0-27.0) mg/dL Est GFR (CKD-EPI)AfAm (60.0-200.0) Est GFR (CKD-EPI)NonAf (60.0-200.0) BUN/Creatinine Ratio (12.00-20.00) Ratio Glucose (70-110) mg/dL POC Glucose (mg/dL) 188 H 329 H (75-99) mg/dL Calcium (8.7-10.3) mg/dL AST (14-35) U/L ALT (10-49) U/L Lactate Dehydrogenase (120-246) U/L C-Reactive Protein (0.00-0.80) mg/dL Total Protein (6.2-8.2) g/dL Albumin (3.8-4.9) g/dL 03/19/21 03/19/21 03/19/21 Range/Units 04:54 04:54 07:27 WBC (4.50-10.00) X 10*3/uL RBC (4.40-5.60) X 10*6/uL MCV (80.0-97.0) fL MCHC (32.0-37.0) g/dL RDW (11.5-14.5) % MPV (9.5-12.2) fL Absolute Nucleated RBC (0.00-0.00) X 10*3/uL Immature Gran # (0.00-0.04) X 10*3/uL Neutrophils # (1.80-7.70) X 10*3/uL Lymphocytes # (0.90-5.00) X 10*3/uL Eosinophils # (0.04-0.35) X 10*3/uL NRBC/100 WBC Diff (0.0-0.0) /100 WBCS D-Dimer 1.03 H (<0.60) mg/L FEU BUN 58.8 H (9.0-27.0) mg/dL Est GFR (CKD-EPI)AfAm 57.8 L (60.0-200.0) Est GFR (CKD-EPI)NonAf 49.8 L (60.0-200.0) BUN/Creatinine Ratio 42.00 H (12.00-20.00) Ratio Glucose 208 H (70-110) mg/dL POC Glucose (mg/dL) 190 H (75-99) mg/dL Calcium 8.5 L (8.7-10.3) mg/dL AST 42 H (14-35) U/L ALT 72 H (10-49) U/L Lactate Dehydrogenase 612 H (120-246) U/L C-Reactive Protein 1.30 H (0.00-0.80) mg/dL Total Protein 5.5 L (6.2-8.2) g/dL Albumin 3.4 L (3.8-4.9) g/dL 03/19/21 Range/Units 11:51 WBC (4.50-10.00) X 10*3/uL RBC (4.40-5.60) X 10*6/uL MCV (80.0-97.0) fL MCHC (32.0-37.0) g/dL RDW (11.5-14.5) % MPV (9.5-12.2) fL Absolute Nucleated RBC (0.00-0.00) X 10*3/uL Immature Gran # (0.00-0.04) X 10*3/uL Neutrophils # (1.80-7.70) X 10*3/uL Lymphocytes # (0.90-5.00) X 10*3/uL Eosinophils # (0.04-0.35) X 10*3/uL NRBC/100 WBC Diff (0.0-0.0) /100 WBCS D-Dimer (<0.60) mg/L FEU BUN (9.0-27.0) mg/dL Est GFR (CKD-EPI)AfAm (60.0-200.0) Est GFR (CKD-EPI)NonAf (60.0-200.0) BUN/Creatinine Ratio (12.00-20.00) Ratio Glucose (70-110) mg/dL POC Glucose (mg/dL) 287 H (75-99) mg/dL Calcium (8.7-10.3) mg/dL AST (14-35) U/L ALT (10-49) U/L Lactate Dehydrogenase (120-246) U/L C-Reactive Protein (0.00-0.80) mg/dL Total Protein (6.2-8.2) g/dL Albumin (3.8-4.9) g/dL Microbiology - Last 24 Hours (Table) 03/12/21 16:28 Blood Culture - Final Blood No Growth after 144 hours 03/12/21 16:28 Blood Culture - Final Blood No Growth after 144 hours
--- NOTE | 2021-03-19 13:23 | US ---
EXAMINATION TYPE: US kidneys/renal and bladder DATE OF EXAM: 03/19/2021 COMPARISON: US Renal 09/04/2019 CLINICAL HISTORY: RF. EXAM MEASUREMENTS: Right Kidney: 11.0 x 6.1 x 5.0 cm Left Kidney: 10.9 x 6.0 x 5.1 cm Right Kidney: No hydronephrosis or masses seen Left Kidney: No hydronephrosis or masses seen Bladder: wnl Bilateral Jets seen: No There is no evidence for hydronephrosis at this point in time. No nephrolithiasis is seen. No chacha s are identified. The urinary bladder is anechoic. Bilateral ureteral jets are seen. There appears to be perinephric fat stranding bilaterally. IMPRESSION: No distinct abnormality appreciated.
--- NOTE | 2021-03-19 13:38 | CONS ---
CONSULTATION REASON FOR CONSULT: Renal failure. HISTORY OF PRESENT ILLNESS: Patient is a 71-year-old male who was admitted to the hospital initially on 03/12/2021 with complaints of shortness of breath. He has chronic hypoxic respiratory failure and was maintained on home oxygen. Patient tested positive for COVID-19 and is currently being treated for COVID-19 pneumonia. He has also been receiving Lasix for volume overload and component of CHF. Serum creatinine was 1.28 on initial admission. It increased to 1.5 yesterday. Today it is at 1.4. Patient states that he has been voiding fairly well. Blood pressure has been mostly around 130 mmHg systolic. Patient has not received any IV contrast during this hospitalization. Currently Lasix is at 40 mg IV q.8 hours. Oxygen requirements have been stable for a couple of days. Patient is receiving high amount of oxygen, maintained on AIRVO and non-rebreather. PAST MEDICAL HISTORY: Significant for coronary artery disease, CHF, COPD, type 2 diabetes, DVT, gastroesophageal reflux disease, hyperlipidemia, hypertension, neuropathy, obstructive sleep apnea, nonsustained ventricular tachycardia. PAST SURGICAL HISTORY: Cardiac catheterization, coronary stent placement, back surgery, bilateral knee arthroscopies, total left knee arthroplasty, right shoulder arthroplasty, left hand injury with repair, colonoscopies, polypectomies, cataract surgeries. SOCIAL HISTORY: Patient is a former smoker. He does use marijuana. MEDICATIONS: Medications at home prior to admission included omeprazole, Flomax, aspirin, colchicine, magnesium, nitroglycerin, metoprolol, Mirapex, Seroquel, Rocaltrol, Lasix, Zithromax, prednisone, one. ALLERGIES: ALLERGIES include ACETAMINOPHEN. Mostly this is a side effect with kidney and liver issues documented. REVIEW OF SYSTEMS: As per HPI. Other systems negative. PHYSICAL EXAMINATION: Patient is currently awake, comfortable. He is not in any acute distress. Blood pressure 137/75, heart rate 72 per minute. He is afebrile. Examination of lower extremities shows edema 2+ bilaterally. Both legs are wrapped. 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 Abdomen is morbidly obese. Lungs and heart are not examined. LABS: Labs from 03/19 show sodium 143, potassium 4.2, BUN 58.8, creatinine 1.4, hemoglobin 13.4 g/dL. ASSESSMENT: 1. Acute kidney injury, most likely acute tubular necrosis. Blood pressure has not been low. Patient is being diuresed. He does have evidence of volume overload. I will continue with the IV Lasix for now. No nephrotoxic agents on board. Repeat labs in a.m. Rule out urine retention. Check postvoid bladder scan. Check ultrasound of the kidneys. Also check urinalysis. 2. Chronic kidney disease, NKF stage 3. Previous creatinine 1.3 to 1.1 mg/dL secondary to diabetic kidney disease. UA previously showed trace protein, but this was earlier part of February. 3. Diastolic heart failure, acute on top of chronic. 4. Chronic obstructive pulmonary disease with acute exacerbation. 5. History of benign prostatic hypertrophy. PLAN: Check post-void residual. Check ultrasound of the kidneys. Continue with current dose of Lasix. Repeat labs in a.m. Thank you for this consultation. Will continue to follow the patient with you during his hospitalization. MMODL / IJN: [id number] /
--- NOTE | 2021-03-19 14:32 | P.PN ---
Subjective Progress Note Date: 03/19/21 Principal diagnosis: Dyspnea This 71-year-old white male patient who follows with Dr. Torres in the pulmonary clinic for his history of advanced COPD on home oxygen patient usually wears 4 L on a regular basis, he is prednisone dependent and usually takes 20 mg on a regular basis, coronary artery disease, diabetes mellitus type 2, previous history of CVA, hypertension, hyperlipidemia, previous history of pneumonia, chronic kidney disease unspecified, sleep apnea, BPH, osteoarthritis. Patient presented to the emergency department on 03/12/2021 for evaluation of worsening dyspnea. Patient had a fever at home up to 101.7F. He saw Dr. Torres on Friday03/09/2021 and his antibiotics were changed. Patient was also given a prednisone taper and was placed on Levaquin. Has chronic swelling in his lower extremities which is unchanged. Of note patient was tested for COVID-19 on 03/02/2021 and was found to be negative. During this visit to the ED he tested positive on 03/12/2021. Patient has been vaccinated against COVID-19. His chest x-ray shows increasing diffuse interstitial opacity, with the possibility of fluid overload/CHF, interstitial pneumonitis, atypical pneumonia or chronic pneumonia. His blood work on admission has been reviewed showing white blood cell count of 12.7, hemoglobin of 12.3, his INR 0.9, sodium is 136, potassium is 4.2, chloride is 97, CO2 31, BUN is 55, creatinine is 1.28, troponin is less than 0.012, proBNP is within normal limits at 206. Patient has been started on Decadron 6 blood gram daily which we will increase to twice daily, he was placed on albuterol and Symbicort, he is on subcutaneous heparin 5000 units every 12 h ours, and the patient is within the window for Remdesivir which she will be started on today. On 03/14/2021 patient seen in follow-up on medical surgical floor, he is breathing comfortably, she is resting in bed, no worsening dyspnea, he is currently on 12 L of oxygen his pulse ox is 92%, does have mildly congested cough, no chest discomfort, blood pressure is stable, his been afebrile. Lower extremity Dopplers showed no evidence of DVT. Today's labs have been reviewed, his white count is 16.9, hemoglobin is 12.8, sodium is 146, the rest of electrolytes are within normal limits, BUN is 40, creatinine is 1.2. LDH was 526, not significantly elevated, CRP was 13.6, follow-up in addition he remains on prophylactic dose Lovenox, he is on Decadron 6 mg twice daily. On 03/15/2021 patient seen in follow-up on medical surgical floor. He is awake and alert, he is currently on 10 L of oxygen, down from 12 L on yesterday's exam, he states his breathing is improving, his coughing less, his been afebrile, hemodynamically stable, no chest discomfort. His been ambulating about the room, tolerates activity well. Today's chest x-ray showing mild cardiomegaly, and stable diffuse interstitial changes and patchy peripheral infiltrates. Today's labs have been reviewed, his white blood cell count is 21.2, hemoglobin is 13.3, his d-dimer is improved and is down to 1.23, sodium is 146, the rest of the electrolytes are within normal limits, BUN is 44, creatinine is 1.3. His LDH is 625, slightly increased from most previous value of 526, CRP is improved and is down to 4.7 on today's labs, pro-calcitonin level is negative 2 at 0.16, and 0.19. Blood cultures have shown no growth. He cur rently continues on Decadron 6 mg twice daily, he is on Lovenox 40 mg once daily, he is on IV Lasix 40 mg every 12 hours, and we started him on the Remdesivir yesterday and today is day 3 of treatment. On 03/16/2021 patient seen in follow-up on medical surgical floor, he is awake and alert, in no acute distress, he states his breathing is about the same, not any worse, however his oxygen demand has increased to 15 L, his pulse ox is 88- 90%, his been afebrile, blood pressures been stable, denies any chest discomfort, no hemoptysis, lung sounds reveal scattered crackles mostly at bilateral bases, his chest x-ray from yesterday showed mild cardiomegaly, diffuse interstitial changes. Patient has been on IV Lasix 40 mg twice daily unfortunately has not fluid balance is very difficult to estimate, his lower extremity edema appears to be slightly better. He continues on Remdesivir, and today is day 4 of treatment. Today's labs have been reviewed, his white count is improving and is down to 16.5, hemoglobin is 12.4, his d-dimer was improving on yesterday's labs, and was down to 1.23, patient remains on prophylactic dose Lovenox 40 mg daily, BUN is 47, creatinine is 1.3, potassium is 3.8, sodium is 141, pro-calcitonin level was negative 2. Blood cultures were negative 2. On 03/18/2021 patient seen in follow-up on medical surgical floor. Patient was noted to be desaturating on high flow nasal cannula and nonrebreather mask due to the low 80s, and he was initially placed on Airvo at 60 L and FiO2 of 90% in addition to a nonrebreather mask and his pulse ox is only 90%. Clinically he states he feels like his breathing is getting better, he looks comfortable, does not appear to be in any acute distress, not using accessory muscles of breathing, he finished his course of Remdesivir, he currently remains on Decadron 6 mg twice daily, Lovenox 20 mg once daily, she denies any chest discomfort, denies any hemoptysis. Today's labs have been reviewed, his white blood cell count is relatively stable at 16.3, hemoglobin is 13.2, his d-dimer is 1.01, sodium is 145, potassium is 4.5, chloride is 101, BUN is 54 creatinine is 1.5., His LDH is stable at 643, and CRP is improved and is down to 1.7, his pro-calcitonin level was negative on 05/16/2020 at 0.19. Blood cultures show no growth. On 03/19/2021 patient seen in follow-up on medical surgical floor, today he is on Airvo at 55 L and FiO2 of 88% in addition to nonrebreather mask, and his pulse ox is 90-91%, and as such his oxygenation requirement has increased He denies worsening dyspnea, he states he is breathing fairly comfortably, minimal wheezing on today's exam, yesterday we switched his IV steroids to IV Solu- Medrol 60 mg every 6 hours, less wheezing, less coughing, no crackles noted. His last chest x-ray from yesterday on 03/18/2021 showed stable cardio megaly, stable diffuse interstitial changes and patchy mid to lower lung peripheral infiltrates likely related to COVID-19 pneumonia. Currently patient is on Baricitinib, IV Solu-Medrol 60 mg every 6 hours, he is on IV Lasix 40 mg every 8 hours, Lovenox 40 mg once daily, he is on home dose colchicine 0.6 mg daily. Vital signs have been stable, his been afebrile. Mild edema in bilateral lower extremities. Today's labs have been reviewed, white blood cell count is improving and is down to 12.5, hemoglobin is 13.4, his neutrophil count is 11.1, leukocyte count of 0.7, electrolytes are unremarkable, B1 is 58 creatinine is 1.4, renal profile slightly improved from yesterday, nephrology is following, his inflammatory markers slightly improved and LDH is down to 612, and CRP is 1.3. Objective - Vital Signs Vital signs: Vital Signs Temp 98.3 F 03/19/21 08:00 Pulse 72 03/19/21 08:00 Resp 28 H 03/19/21 08:00 BP 137/75 03/19/21 08:00 Pulse Ox 90 L 03/19/21 09:25 Intake & Output 03/18/21 03/19/21 03/19/21 18:59 06:59 18:59 Output Total 1950 Balance -1950 Weight 95.5 kg Output: Urine 1950 Other: Voiding Method Toilet Urinal Urinal # Bowel Movements 1 - Exam GENERAL EXAM: Alert, very pleasant, 71-year-old white male, currently on Airvo at 55 L and FiO2 of 80% and a nonrebreather mask comfortable in no apparent distress. HEAD: Normocephalic/atraumatic. EYES: Normal reaction of pupils, equal size. Conjunctiva pink, sclera white. NOSE: Clear with pink turbinates. THROAT: No erythema or exudates. NECK: No masses, no JVD, no thyroid enlargement, no adenopathy. CHEST: No chest wall deformity. Symmetrical expansion. LUNGS: Equal air entry with diffuse crackles, and a few rhonchi CVS: Regular rate and rhythm, normal S1 and S2, no gallops, no murmurs, no rubs ABDOMEN: Soft, nontender. No hepatosplenomegaly, normal bowel sounds, no guarding or rigidity. EXTREMITIES: No clubbing, plus lower extremity edema with chronic venous stasis, no cyanosis, 2+ pulses and upper and lower extremities. MUSCULOSKELETAL: Muscle strength and tone normal. SPINE: No scoliosis or deformity SKIN: No rashes CENTRAL NERVOUS SYSTEM: Alert and oriented -3. No focal deficits, tone is normal in all 4 extremities. PSYCHIATRIC: Alert and oriented -3. Appropriate affect. Intact judgment and insight. - Labs CBC & Chem 7: 03/19/21 04:54 03/19/21 04:54 Labs: Abnormal Lab Results - Last 24 Hours (Table) 03/18/21 03/18/21 03/19/21 Range/Units 16:22 20:44 04:54 WBC 12.52 H (4.50-10.00) X 10*3/uL RBC 4.23 L (4.40-5.60) X 10*6/uL MCV 100.7 H (80.0-97.0) fL MCHC 31.5 L (32.0-37.0) g/dL RDW 14.9 H (11.5-14.5) % MPV 12.4 H (9.5-12.2) fL Absolute Nucleated RBC 0.02 H (0.00-0.00) X 10*3/uL Immature Gran # 0.33 H (0.00-0.04) X 10*3/uL Neutrophils # 11.14 H (1.80-7.70) X 10*3/uL Lymphocytes # 0.70 L (0.90-5.00) X 10*3/uL Eosinophils # 0 L (0.04-0.35) X 10*3/uL NRBC/100 WBC Diff 0.2 H (0.0-0.0) /100 WBCS D-Dimer (<0.60) mg/L FEU BUN (9.0-27.0) mg/dL Est GFR (CKD-EPI)AfAm (60.0-200.0) Est GFR (CKD-EPI)NonAf (60.0-200.0) BUN/Creatinine Ratio (12.00-20.00) Ratio Glucose (70-110) mg/dL POC Glucose (mg/dL) 188 H 329 H (75-99) mg/dL Calcium (8.7-10.3) mg/dL AST (14-35) U/L ALT (10-49) U/L Lactate Dehydrogenase (120-246) U/L C-Reactive Protein (0.00-0.80) mg/dL Total Protein (6.2-8.2) g/dL Albumin (3.8-4.9) g/dL 03/19/21 03/19/21 03/19/21 Range/Units 04:54 04:54 07:27 WBC (4.50-10.00) X 10*3/uL RBC (4.40-5.60) X 10*6/uL MCV (80.0-97.0) fL MCHC (32.0-37.0) g/dL RDW (11.5-14.5) % MPV (9.5-12.2) fL Absolute Nucleated RBC (0.00-0.00) X 10*3/uL Immature Gran # (0.00-0.04) X 10*3/uL Neutrophils # (1.80-7.70) X 10*3/uL Lymphocytes # (0.90-5.00) X 10*3/uL Eosinophils # (0.04-0.35) X 10*3/uL NRBC/100 WBC Diff (0.0-0.0) /100 WBCS D-Dimer 1.03 H (<0.60) mg/L FEU BUN 58.8 H (9.0-27.0) mg/dL Est GFR (CKD-EPI)AfAm 57.8 L (60.0-200.0) Est GFR (CKD-EPI)NonAf 49.8 L (60.0-200.0) BUN/Creatinine Ratio 42.00 H (12.00-20.00) Ratio Glucose 208 H (70-110) mg/dL POC Glucose (mg/dL) 190 H (75-99) mg/dL Calcium 8.5 L (8.7-10.3) mg/dL AST 42 H (14-35) U/L ALT 72 H (10-49) U/L Lactate Dehydrogenase 612 H (120-246) U/L C-Reactive Protein 1.30 H (0.00-0.80) mg/dL Total Protein 5.5 L (6.2-8.2) g/dL Albumin 3.4 L (3.8-4.9) g/dL 03/19/21 Range/Units 11:51 WBC (4.50-10.00) X 10*3/uL RBC (4.40-5.60) X 10*6/uL MCV (80.0-97.0) fL MCHC (32.0-37.0) g/dL RDW (11.5-14.5) % MPV (9.5-12.2) fL Absolute Nucleated RBC (0.00-0.00) X 10*3/uL Immature Gran # (0.00-0.04) X 10*3/uL Neutrophils # (1.80-7.70) X 10*3/uL Lymphocytes # (0.90-5.00) X 10*3/uL Eosinophils # (0.04-0.35) X 10*3/uL NRBC/100 WBC Diff (0.0-0.0) /100 WBCS D-Dimer (<0.60) mg/L FEU BUN (9.0-27.0) mg/dL Est GFR (CKD-EPI)AfAm (60.0-200.0) Est GFR (CKD-EPI)NonAf (60.0-200.0) BUN/Creatinine Ratio (12.00-20.00) Ratio Glucose (70-110) mg/dL POC Glucose (mg/dL) 287 H (75-99) mg/dL Calcium (8.7-10.3) mg/dL AST (14-35) U/L ALT (10-49) U/L Lactate Dehydrogenase (120-246) U/L C-Reactive Protein (0.00-0.80) mg/dL Total Protein (6.2-8.2) g/dL Albumin (3.8-4.9) g/dL Microbiology - Last 24 Hours (Table) 03/12/21 16:28 Blood Culture - Final Blood No Growth after 144 hours 03/12/21 16:28 Blood Culture - Final Blood No Growth after 144 hours Assessment and Plan Plan: Assessment: #1. Acute on chronic hypoxic respiratory failure related to acute COVID-19 related pneumonia, patient tested positive on 03/12/2021. Patient is vaccinated against COVID-19. His symptoms have worsened over last week, patient will be started on Remdesivir today on 03/13/2021, patient completed Remdesivir on 03/17/2021. Today his oxygenation is worse, and patient was placed on Airvo and nonrebreather and will be started on Baricitinib on 03/18/2021 #2. Acute exacerbation of COPD #3. Chronic COPD, advanced, with a baseline FEV1 of 1.71 L or FEV1 of 58% usually on home oxygen at 4 L #4. Recent 2 hospitalizations for acute exacerbation of COPD in early February, during which patient tested negative for COVID-19, urinalysis was also negative, influenza A and B were negative #5. Diabetes mellitus type 2 #6. Hypertension, #7. Hyperlipidemia #8. History of coronary artery disease with previous stenting #9. History of CHF, unspecified #10. History of CVA/TIA #11. Osteoarthritis #12. Chronic knee disease, unspecified #13. Chronic venous insufficiency #14. 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 Sleep apnea does not wear CPAP #17. Marijuana use #18. Elevated d-dimer related to acute COVID-19 infection, we'll obtain lower extremity Dopplers and will consider CT angiogram of the chest Plan: Oxygenation remains fairly the same, the patient requires the same amount of oxygen FiO2 has increased to 60 L/m and FiO2 of 90% and nonrebreather mask Denies dyspnea, appears to be breathing comfortably Patient has completed his Remdesivir Continues on Baricitinib, today is day 2 of treatment We'll continue with twice daily dosing of Decadron Continue current dose Lovenox Inflammatory markers slightly improved Leukocytosis is improved Pro calcitonin level is negative No fever or chills Continue IV diuretics Nephrology Dayday Continue inhaled bronchodilators Clinically sounds better today, less bronchospastic we'll continue with IV Solu- Medrol for another 24 hours I performed a history & physical examination of the patient and discussed their management with my nurse practitioner, Skylar Mckoy. I reviewed the nurse practitioner's note and agree with the documented findings and plan of care. Lung sounds are positive for crackles and rhonchi throughout the lung [place]. The findings and the impression was discussed with the patient. I attest to the documentation by the nurse practitioner. Time with Patient: Less than 30
[2021-03-19 15:56] LABS: Appearance,Urine Clear (Clear); Bilirubin,Urine Negative (Negative); Blood,Urine Negative (Negative); Color,Urine Light Yellow; Glucose,Urine (UA) Negative (Negative); Ketones,Urine Negative (Negative); Leukocyte Esterase,Urine Negative (Negative); Nitrite,Urine Negative (Negative); Protein,Urine Negative (Negative); Specific Gravity,Urine 1.013 (1.001-1.035); Urobilinogen,Urine <2.0 mg/dL (<2.0)
[2021-03-19 17:00] LABS: Glucose,Whole Blood 257 mg/dL (75-99)
[2021-03-19 20:35] LABS: Glucose,Whole Blood 321 mg/dL (75-99)
[2021-03-19] MEDS: METOPROLOL TARTRATE 25 MG TAB PO SCH (20:50)
[2021-03-19] MEDS: INSULIN DETEMIR (LEVEMIR) 100 UNIT/ML SYR SQ PRN (20:51)
[2021-03-19] MEDS: PRAMIPEXOLE 1 MG TAB PO SCH (21:52)
[2021-03-20] MEDS: QUEtiapine 25 MG TAB PO PRN (00:08)
[2021-03-20] MEDS: FUROSEMIDE 10 MG/ML 4 ML VIAL IV SCH ×3 (00:08→21:35)
[2021-03-20] MEDS: methylPREDNISolone SOD SUCCI 125 MG/2 ML VIAL IV SCH ×4 (03:45→21:35)
[2021-03-20 07:10] LABS: Glucose,Whole Blood 120 mg/dL (75-99)
[2021-03-20] MEDS: ISOSORBIDE MONONITRATE ER 30 MG TAB.ER.24H PO SCH (07:15)
[2021-03-20] MEDS: METOPROLOL TARTRATE 50 MG TAB PO SCH (07:17)
[2021-03-20] MEDS: INSULIN ASPART (NovoLOG) 100 UNIT/ML VIAL SQ SCH ×8 (07:20→21:35)
[2021-03-20] MEDS: allopurinoL 100 MG TAB PO SCH (09:45)
[2021-03-20] MEDS: PANTOPRAZOLE 40 MG TABLET PO SCH (09:45)
[2021-03-20] MEDS: COLCHICINE 0.6 MG EACH PO SCH (09:45)
[2021-03-20] MEDS: QUEtiapine 25 MG TAB PO SCH ×2 (09:45→21:36)
[2021-03-20] MEDS: FAMOTIDINE 20 MG TAB PO SCH (09:45)
[2021-03-20] MEDS: MAGNESIUM OXIDE 400 MG TAB PO SCH (09:45)
[2021-03-20] MEDS: TAMSULOSIN 0.4 MG CAP.ER.24H PO SCH (09:45)
[2021-03-20] MEDS: ASPIRIN 81 MG PO SCH (09:46)
[2021-03-20] MEDS: ZINC SULFATE 220 MG CAP PO SCH (09:46)
[2021-03-20] MEDS: ASCORBIC ACID 500 MG TAB PO SCH ×2 (09:46→21:36)
[2021-03-20] MEDS: BARICITINIB 2 MG TABLET PO SCH (09:46)
[2021-03-20] MEDS: CHOLECALCIFEROL 125 MCG (5000 IU) TABLET PO SCH (09:46)
[2021-03-20] MEDS: ENOXAPARIN 40 MG/0.4 ML SYRINGE SQ SCH (09:47)
[2021-03-20] MEDS: ALBUTEROL HFA INHALER INHALATION SCH ×4 (09:52→20:51)
[2021-03-20] MEDS: SYMBICORT 160-4.5 MCG INHALER INHALATION SCH ×2 (09:52→20:51)
[2021-03-20 11:40] LABS: African American GFR (CKD) 63 (>60 ml/min/1.73 sqM); Anion Gap 7 mmol/L; Blood Urea Nitrogen 66 mg/dL (9-20); Calcium 8.6 mg/dL (8.4-10.2); Carbon Dioxide 34 mmol/L (22-30); Chloride 97 mmol/L (98-107); Glucose 183 mg/dL (74-99); Non-African American GFR(CKD) 55 (>60 ml/min/1.73 sqM); Potassium 3.8 mmol/L (3.5-5.1); Sodium 138 mmol/L (137-145)
[2021-03-20 12:02] LABS: Glucose,Whole Blood 154 mg/dL (75-99)
--- NOTE | 2021-03-20 15:13 | P.PN ---
Subjective Progress Note Date: 03/20/21 Principal diagnosis: Dyspnea This 71-year-old white male patient who follows with Dr. Torres in the pulmonary clinic for his history of advanced COPD on home oxygen patient usually wears 4 L on a regular basis, he is prednisone dependent and usually takes 20 mg on a regular basis, coronary artery disease, diabetes mellitus type 2, previous history of CVA, hypertension, hyperlipidemia, previous history of pneumonia, chronic kidney disease unspecified, sleep apnea, BPH, osteoarthritis. Patient presented to the emergency department on 03/12/2021 for evaluation of worsening dyspnea. Patient had a fever at home up to 101.7F. He saw Dr. Torres on Friday03/09/2021 and his antibiotics were changed. Patient was also given a prednisone taper and was placed on Levaquin. Has chronic swelling in his lower extremities which is unchanged. Of note patient was tested for COVID-19 on 03/02/2021 and was found to be negative. During this visit to the ED he tested positive on 03/12/2021. Patient has been vaccinated against COVID-19. His chest x-ray shows increasing diffuse interstitial opacity, with the possibility of fluid overload/CHF, interstitial pneumonitis, atypical pneumonia or chronic pneumonia. His blood work on admission has been reviewed showing white blood cell count of 12.7, hemoglobin of 12.3, his INR 0.9, sodium is 136, potassium is 4.2, chloride is 97, CO2 31, BUN is 55, creatinine is 1.28, troponin is less than 0.012, proBNP is within normal limits at 206. Patient has been started on Decadron 6 blood gram daily which we will increase to twice daily, he was placed on albuterol and Symbicort, he is on subcutaneous heparin 5000 units every 12 h ours, and the patient is within the window for Remdesivir which she will be started on today. On 03/14/2021 patient seen in follow-up on medical surgical floor, he is breathing comfortably, she is resting in bed, no worsening dyspnea, he is currently on 12 L of oxygen his pulse ox is 92%, does have mildly congested cough, no chest discomfort, blood pressure is stable, his been afebrile. Lower extremity Dopplers showed no evidence of DVT. Today's labs have been reviewed, his white count is 16.9, hemoglobin is 12.8, sodium is 146, the rest of electrolytes are within normal limits, BUN is 40, creatinine is 1.2. LDH was 526, not significantly elevated, CRP was 13.6, follow-up in addition he remains on prophylactic dose Lovenox, he is on Decadron 6 mg twice daily. On 03/15/2021 patient seen in follow-up on medical surgical floor. He is awake and alert, he is currently on 10 L of oxygen, down from 12 L on yesterday's exam, he states his breathing is improving, his coughing less, his been afebrile, hemodynamically stable, no chest discomfort. His been ambulating about the room, tolerates activity well. Today's chest x-ray showing mild cardiomegaly, and stable diffuse interstitial changes and patchy peripheral infiltrates. Today's labs have been reviewed, his white blood cell count is 21.2, hemoglobin is 13.3, his d-dimer is improved and is down to 1.23, sodium is 146, the rest of the electrolytes are within normal limits, BUN is 44, creatinine is 1.3. His LDH is 625, slightly increased from most previous value of 526, CRP is improved and is down to 4.7 on today's labs, pro-calcitonin level is negative 2 at 0.16, and 0.19. Blood cultures have shown no growth. He cur rently continues on Decadron 6 mg twice daily, he is on Lovenox 40 mg once daily, he is on IV Lasix 40 mg every 12 hours, and we started him on the Remdesivir yesterday and today is day 3 of treatment. On 03/16/2021 patient seen in follow-up on medical surgical floor, he is awake and alert, in no acute distress, he states his breathing is about the same, not any worse, however his oxygen demand has increased to 15 L, his pulse ox is 88- 90%, his been afebrile, blood pressures been stable, denies any chest discomfort, no hemoptysis, lung sounds reveal scattered crackles mostly at bilateral bases, his chest x-ray from yesterday showed mild cardiomegaly, diffuse interstitial changes. Patient has been on IV Lasix 40 mg twice daily unfortunately has not fluid balance is very difficult to estimate, his lower extremity edema appears to be slightly better. He continues on Remdesivir, and today is day 4 of treatment. Today's labs have been reviewed, his white count is improving and is down to 16.5, hemoglobin is 12.4, his d-dimer was improving on yesterday's labs, and was down to 1.23, patient remains on prophylactic dose Lovenox 40 mg daily, BUN is 47, creatinine is 1.3, potassium is 3.8, sodium is 141, pro-calcitonin level was negative 2. Blood cultures were negative 2. On 03/18/2021 patient seen in follow-up on medical surgical floor. Patient was noted to be desaturating on high flow nasal cannula and nonrebreather mask due to the low 80s, and he was initially placed on Airvo at 60 L and FiO2 of 90% in addition to a nonrebreather mask and his pulse ox is only 90%. Clinically he states he feels like his breathing is getting better, he looks comfortable, does not appear to be in any acute distress, not using accessory muscles of breathing, he finished his course of Remdesivir, he currently remains on Decadron 6 mg twice daily, Lovenox 20 mg once daily, she denies any chest discomfort, denies any hemoptysis. Today's labs have been reviewed, his white blood cell count is relatively stable at 16.3, hemoglobin is 13.2, his d-dimer is 1.01, sodium is 145, potassium is 4.5, chloride is 101, BUN is 54 creatinine is 1.5., His LDH is stable at 643, and CRP is improved and is down to 1.7, his pro-calcitonin level was negative on 05/16/2020 at 0.19. Blood cultures show no growth. On 03/19/2021 patient seen in follow-up on medical surgical floor, today he is on Airvo at 55 L and FiO2 of 88% in addition to nonrebreather mask, and his pulse ox is 90-91%, and as such his oxygenation requirement has increased He denies worsening dyspnea, he states he is breathing fairly comfortably, minimal wheezing on today's exam, yesterday we switched his IV steroids to IV Solu- Medrol 60 mg every 6 hours, less wheezing, less coughing, no crackles noted. His last chest x-ray from yesterday on 03/18/2021 showed stable cardio megaly, stable diffuse interstitial changes and patchy mid to lower lung peripheral infiltrates likely related to COVID-19 pneumonia. Currently patient is on Baricitinib, IV Solu-Medrol 60 mg every 6 hours, he is on IV Lasix 40 mg every 8 hours, Lovenox 40 mg once daily, he is on home dose colchicine 0.6 mg daily. Vital signs have been stable, his been afebrile. Mild edema in bilateral lower extremities. Today's labs have been reviewed, white blood cell count is improving and is down to 12.5, hemoglobin is 13.4, his neutrophil count is 11.1, leukocyte count of 0.7, electrolytes are unremarkable, B1 is 58 creatinine is 1.4, renal profile slightly improved from yesterday, nephrology is following, his inflammatory markers slightly improved and LDH is down to 612, and CRP is 1.3. On 03/20/2021 patient seen in follow-up on medical surgical floor. He is awake and alert, in no acute distress although still requiring high flow oxygen. He is sitting up in the recliner, currently on Airvo at 55 L and FiO2 of 88% in addition to 100% nonrebreather mask. His lung sounds are improved, he is less wheezy, no rhonchi, less congested, and he feels like his breathing is improving. Occasional cough, no significant phlegm production. Patient's nonrebreather mask was removed, and patient is maintaining O2 saturations at 95% on just Airvo at 55 L and FiO2 of 85%. Afebrile. Currently patient is on Baricitinib, IV Solu-Medrol 60 mg every 6 hours, he is on IV Lasix 40 mg every 12 hours, Lovenox 40 mg once daily, he is on home dose colchicine 0.6 mg daily. Vital signs have been stable, his been afebrile. Mild edema in bilateral lower extremities. No new chest x-ray today. Patient continues to diurese, he is in -880 mL net fluid balance over the last 24 hours, lower extremity edema is improving, breathing is improving. Today's labs have been reviewed, sodium is 138, potassium is 3.8, chloride is 97, CO2 is 34, B1 is 66 creatinine 1.3. Objective - Vital Signs Vital signs: Vital Signs Temp 97.8 F 03/20/21 08:00 Pulse 61 03/20/21 08:00 Resp 20 03/20/21 10:44 BP 130/74 03/20/21 08:00 Pulse Ox 95 03/20/21 13:27 Intake & Output 03/19/21 03/20/21 03/20/21 18:59 06:59 18:59 Output Total 880 Balance -880 Weight 95.5 kg 95.7 kg 97.5 kg Output: Urine 880 Other: Voiding Method Urinal Urinal Urinal # Voids 4 # Bowel Movements 0 - Exam GENERAL EXAM: Alert, very pleasant, 71-year-old white male, currently on Airvo at 55 L and FiO2 of 85% and a nonrebreather mask comfortable in no apparent distress. HEAD: Normocephalic/atraumatic. EYES: Normal reaction of pupils, equal size. Conjunctiva pink, sclera white. NOSE: Clear with pink turbinates. THROAT: No erythema or exudates. NECK: No masses, no JVD, no thyroid enlargement, no adenopathy. CHEST: No chest wall deformity. Symmetrical expansion. LUNGS: Equal air entry with diffuse crackles, and a few rhonchi CVS: Regular rate and rhythm, normal S1 and S2, no gallops, no murmurs, no rubs ABDOMEN: Soft, nontender. No hepatosplenomegaly, normal bowel sounds, no guarding or rigidity. EXTREMITIES: No clubbing, plus lower extremity edema with chronic venous stasis, no cyanosis, 2+ pulses and upper and lower extremities. MUSCULOSKELETAL: Muscle strength and tone normal. SPINE: No scoliosis or deformity SKIN: No rashes CENTRAL NERVOUS SYSTEM: Alert and oriented -3. No focal deficits, tone is normal in all 4 extremities. PSYCHIATRIC: Alert and oriented -3. Appropriate affect. Intact judgment and insight. - Labs CBC & Chem 7: 03/19/21 04:54 03/20/21 10:46 Labs: Abnormal Lab Results - Last 24 Hours (Table) 03/19/21 03/19/21 03/20/21 Range/Units 16:58 20:31 07:09 Chloride (98-107) mmol/L Carbon Dioxide (22-30) mmol/L BUN (9-20) mg/dL Creatinine (0.66-1.25) mg/dL Glucose (74-99) mg/dL POC Glucose (mg/dL) 257 H 321 H 120 H (75-99) mg/dL 03/20/21 03/20/21 Range/Units 10:46 11:59 Chloride 97 L (98-107) mmol/L Carbon Dioxide 34 H (22-30) mmol/L BUN 66 H (9-20) mg/dL Creatinine 1.30 H (0.66-1.25) mg/dL Glucose 183 H (74-99) mg/dL POC Glucose (mg/dL) 154 H (75-99) mg/dL Assessment and Plan Plan: Assessment: #1. Acute on chronic hypoxic respiratory failure related to acute COVID-19 related pneumonia, patient tested positive on 03/12/2021. Patient is vaccinated against COVID-19. His symptoms have worsened over last week, patient will be started on Remdesivir today on 03/13/2021, patient completed Remdesivir on 03/17/2021. Today his oxygenation is worse, and patient was placed on Airvo and nonrebreather and will be started on Baricitinib on 03/18/2021 #2. Acute exacerbation of COPD #3. Chronic COPD, advanced, with a baseline FEV1 of 1.71 L or FEV1 of 58% usually on home oxygen at 4 L #4. Recent 2 hospitalizations for acute exacerbation of COPD in early February, during which patient tested negative for COVID-19, urinalysis was also negative, influenza A and B were negative #5. Diabetes mellitus type 2 #6. Hypertension, #7. Hyperlipidemia #8. History of coronary artery disease with previous stenting #9. History of CHF, unspecified #10. History of CVA/TIA #11. Osteoarthritis #12. Chronic knee disease, unspecified #13. Chronic venous insufficiency #14. 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 Sleep apnea does not wear CPAP #17. Marijuana use #18. Elevated d-dimer related to acute COVID-19 infection, we'll obtain lower extremity Dopplers and will consider CT angiogram of the chest Plan: Oxygenation slightly improved, nonrebreather mask was removed, and patient is maintaining stable O2 saturations on Airvo alone He feels that his breathing is improving, Breathing comfortably He has completed his course of Remdesivir Continues on Baricitinib, today is day 3 of treatment We'll continue with twice daily dosing of Decadron Continue current dose Lovenox Pro calcitonin level is negative No fever or chills Continue IV diuretics Nephrology Dayday Continue inhaled bronchodilators Clinically sounds better today, less bronchospastic we'll continue with IV Solu- Medrol I performed a history & physical examination of the patient and discussed their management with my nurse practitioner, Skylar Mckoy. I reviewed the nurse practitioner's note and agree with the documented findings and plan of care. Lung sounds are positive for crackles and rhonchi throughout the lung [place]. The findings and the impression was discussed with the patient. I attest to the documentation by the nurse practitioner. Time with Patient: Less than 30
[2021-03-20 17:07] LABS: Glucose,Whole Blood 318 mg/dL (75-99)
--- NOTE | 2021-03-20 17:33 | PN ---
PROGRESS NOTE Patient is seen for followup for acute kidney injury. The patient's renal function has improved. Serum creatinine continues to decrease down to 1.3 from 1.5 at peak. The patient has underlying COVID pneumonia. He is maintained on Lasix 40 mg q.12 hours, seems to be tolerating it fairly well. The patient has had good output. A 24 hour output documented at about 1.9 L. PHYSICAL EXAMINATION: On examination today, blood pressure 135/62, heart rate 63 per minute. He is he is afebrile. Examination of lower extremities shows significant edema bilaterally. Both legs are wrapped. ARBITRATOR exam grossly intact. Lungs and heart are not examined. LAB: Show sodium 138, potassium 3.8, chloride 97, CO2 is 34, BUN 66 serum creatinine 1.3, calcium 8.6 g/dL. Ultrasound of the kidneys done yesterday shows right kidney 11 cm, left kidney 10.9 cm. No hydronephrosis is noted. ASSESSMENT: 1. Acute kidney injury, most likely acute tubular necrosis versus cardiorenal. Continue with the IV Lasix for now. A postvoid bladder scan was ordered. I am not sure if it was done. I will check again with nursing staff. Ultrasound of the kidneys does not reveal any evidence of hydronephrosis. 2. Chronic kidney disease stage 3, previous creatinine 1.3-1.1 secondary to diabetic kidney disease. Previous UA showed evidence of trace protein in the earlier part of February. 3. Congestive heart failure, diastolic, acute on top of chronic. 4. Chronic obstructive pulmonary disease exacerbation. 5. History of BPH. 6. COVID pneumonia, currently maintained on Airvo with O2 sats 91%. PLAN: Follow up on the postvoid scan. Continue with current dose of IV Lasix. Repeat labs in a.m. No evidence of hypotension. Continue with the Flomax. MMODL / IJN: [id number] /
--- NOTE | 2021-03-20 20:30 | P.PN ---
Subjective Progress Note Date: 03/20/21 Patient is a 71-year-old white male with a chronic medical problems a chronic hypoxic respiratory failure uses about 4 L of oxygen at home came in the with complaints of shortness of breath and cough restarted couple days ago was also having fever restarted couple days ago. Patient is found to have COVID-19 patient has multiple other medical problems chronically and patient does have history of COPD possible chronic diastolic dysfunction patient was on IV Lasix in the past. 03/13/2021 Patient evaluated today sitting on the edge of the bed. He is requiring oxygen at 7L HF with a saturation of 91%. Blood pressure 148/76, heart rate 74, temp 98.2. Labs today include WBC of 13.08, hgb 12.3, sodium 143, potassium 4.0, AST 55, ALT 94, LDH 526, CRP 13.60. DD 5.97, doppler negative for bilateral DVT. P ulmonary consultation today who increased decadron to twice a day and started the patient on remdesivir. Patient is also on subcu heparin, zinc, vitamins. 03/14/2021 Patient has been able to ambulate around his room while on oxygen. Vital signs included temperature of 91, heart rate 66 sinus rhythm, respirations 18, blood pressure 139/65 and he is 90% on 12 L high flow nasal cannula. Oxygen sa turation has been progressively increasing. Labs today show a white count of 16.99, hemoglobin 12.8, sodium 146, glucose in the 70s, AST 68, ALT 96. Will repeat a chest x-ray in the morning as well as repeat labs and inflammatory markers. He continues on Lovenox, zinc, vitamins, he was started on IV remdesivir from pulmonary services today. Procalcitonin pending. Apparently patient has been refusing ketorolac eyedrops as he states that he is done taking outpatient; discontinued the order. 03/15/2021 Patient says he is feeling better patient the arms and requirements went up yesterday was on 10 L now came down to 8 L patient overall feels better but as per the nursing staff patient has been occasionally getting confused which is not unexpected for for him as he had sundowners in the past and patient is also on stress steroids which can do that. Patient was started on IV Lasix because of increased swelling in bilateral lower extremities patient barely takes one 20 mg of by mouth Lasix at home although it was documented as 20 mg. We'll continue with IV Lasix will monitor I's and O's will continue to wean off his oxygen. 03/16/2021 Patient feels better but his oxygen requirements remain the same patient remains on IV Lasix creatinine is around 1.3 compared to 1.2 on admission will continue to closely monitor his kidney function and the input and output. Patient remains on IV steroids blood sugars are within normal limits leukocytosis improved a bit. 03/17/2021 Patient has occasional confusional episodes during nighttime she is being well managed by Seroquel. The patient is presently on 15 L of oxygen patient swelling in bilateral lower x-ray significantly improved still has some swelling continue with IV Lasix creatinine remained stable at 1.2 serum sodium within normal limits. 03/18/2021 Patient was pretty status is worse today and patient is requiring airvo, patient has significant Swelling in bilateral lower extremities which is a worse compared to yesterday patient is on the Lasix every 12 hourly which will be changed to create hourly and we'll also get the opinion of nephrology testing that his creatinine went up to 1.5. Patient looks tired although patient says he is okay. Patient completed Remdesivir and was started on Barcitinib. 03/19/2021 Patient evaluated today sitting in the edge of the bed. He maintains on an aerosol as well as a nonrebreather. Patient has bilateral lower extremity edema which is [place] wrapped, edema is still +2 pitting above the wraps, he continues on IV lasix Q8. He appears to be about a -2.5 L fluid balance in the last 24 hours. Vital signs reviewed, he is afebrile, heart rate 72, respirations 28, blood pressure 137/75 and he is 90% on a 55 L Airvo with a 100% nonrebreather mask. Patient was able to carry on full conversation however once he pauses he does become hypoxic, 87-88%, recovers though. Labs reviewed today include a white count 12.52, hemoglobin 13.4, d-dimer 1.03, sodium 143, potassium 4.2, creatinine 1.4, BUN 58.8. Sugars are in the 200s up to as high as 329, AST is 42, ALT 72 today. LDH is 612, CRP 1.30, which is slightly improved from yesterday. Chest x-ray today shows stable myocardial megaly, stable diffuse interstitial changes and patchy mid and lower lung infiltrates as seen with covid Pneumonia. He continues on Lovenox, vitamins, IV solu-medrol, and baricitinib. He is being followed closely by pulmonary services. Pending nephrology consultation. 03/20/2021 Patient evaluated today sitting up in chair he is on airvo 55L and NRB with an oxygen saturation of 95%, blood pressure 130/74, afebrile, heart rate 89. Labs today sodium 138, potassium 3.8, chloride 97, CO2 34, BUN 66, creatinine 1.30, blood glucose in the 150's today. He states that he feels slightly better than yesterday, although he is requiring alot of oxygen support. He has not had a bowel movement in a few days, he is urinating without difficulty. Has a productive cough. Nephrology has ordered post void residuals. He is also being followed closely by pumonary. Continues on baricitinib, lovenox, zinc, vitamins, solumedrol, bronchodilators. ROS Constitutional: Denied any fatigue denied any fever. Cardio vascular: denied any chest pain, palpitations Gastrointestinal denied any nausea vomiting Pulmonary: Reports shortness of breath with exertion, mild at rest, reports cough Neurologic denied any new focal deficits All inpatient medications were reviewed and appropriate changes in these medications as dictated in the interval history and assessment and plan. PHYSICAL EXAMINATION: GENERAL: The patient is alert and oriented x3, fatigues easy with activity even when talking HEENT: Pupils are round and equally reacting to light. EOMI. No scleral icterus. No conjunctival pallor. Normocephalic, atraumatic. No pharyngeal erythema. No thyromegaly. CARDIOVASCULAR: S1 and S2 present. No murmurs, rubs, or gallops. PULMONARY: Coarse scattered rhonchi throughout ABDOMEN: Soft, nontender, nondistended, normoactive bowel sounds. No palpable organomegaly. MUSCULOSKELETAL: No joint swelling or deformity. EXTREMITIES: No cyanosis, clubbing, +2 peripheral edema legs [place] wrapped. NEUROLOGICAL: Gross neurological examination did not reveal any focal deficits. SKIN: No rashes. Assessment and plan -Acute on chronic hypoxic respiratory failure secondary to COVID-19 pneumonia wears 4L of oxygen at home, on 10L HF cannula - Covid 19 pneumonia. He on steroids and Barcitinib, Remdesivir -Leukocytosis secondary to above -Congestive heart failure chronic diastolic dysfunction with acute exacerbation at this time patient the BNP is only 206, most recent echo shows an EF of great er than 55%. on IV lasix -acute renal failure: Probably secondary to heart failure, on IV lasix -Acute COPD exacerbation -Mild transaminitis which is better at compared to his previous admission, chr onic no further intervention at this time COVID-19 can cause transaminitis is Possible congestive heart failure chronic diastolic dysfunction with mild acute exacerbation -Elevated inflammatory markers of COVID-19 -Elevated DD secondary to COVID-19 infection, doppler negative for bilateral DVT -Chronic kidney disease stage III -Gastroesophageal reflux disease -Coronary artery disease -Type 2 diabetes mellitus insulin-dependent, exacerbated by steroids -Diabetic peripheral neuropathy -Obstructive sleep apnea -Chronic hypoxic respiratory failure Secondary to COPD and the sleep apnea -Hypertension -Hyperlipidemia -Benign prostatic hypertrophy -Chronic low back pain -History of DVT in the past for which patient is on not on any anti-coagulation presently DVT prophylaxis: Lovenox GI Prophylaxis: Protonix Plan Continue Solu-medrole, zinc, vitamins, lovenox Continue bronchodilators Adjust insulin Continue all other supportive care Repeat labs tomorrow Prognosis is guarded for this patient. Objective - Vital Signs Vital signs: Vital Signs Temp 97.8 F 03/20/21 08:00 Pulse 61 03/20/21 08:00 Resp 20 03/20/21 10:44 BP 130/74 03/20/21 08:00 Pulse Ox 93 L 03/20/21 09:50 Intake & Output 03/19/21 03/20/21 03/20/21 18:59 06:59 18:59 Output Total 880 Balance -880 Weight 95.5 kg 95.7 kg 97.5 kg Output: Urine 880 Other: Voiding Method Urinal Urinal Urinal # Voids 4 # Bowel Movements 0 - Labs CBC & Chem 7: 03/19/21 04:54 03/20/21 10:46 Labs: Abnormal Lab Results - Last 24 Hours (Table) 03/19/21 03/19/21 03/19/21 Range/Units 11:51 16:58 20:31 Chloride (98-107) mmol/L Carbon Dioxide (22-30) mmol/L BUN (9-20) mg/dL Creatinine (0.66-1.25) mg/dL Glucose (74-99) mg/dL POC Glucose (mg/dL) 287 H 257 H 321 H (75-99) mg/dL 03/20/21 03/20/21 Range/Units 07:09 10:46 Chloride 97 L (98-107) mmol/L Carbon Dioxide 34 H (22-30) mmol/L BUN 66 H (9-20) mg/dL Creatinine 1.30 H (0.66-1.25) mg/dL Glucose 183 H (74-99) mg/dL POC Glucose (mg/dL) 120 H (75-99) mg/dL
[2021-03-20 20:55] LABS: Glucose,Whole Blood 310 mg/dL (75-99)
[2021-03-20] MEDS: INSULIN DETEMIR (LEVEMIR) 100 UNIT/ML SYR SQ PRN (21:36)
[2021-03-20] MEDS: PRAMIPEXOLE 1 MG TAB PO SCH (21:36)
[2021-03-20] MEDS: METOPROLOL TARTRATE 25 MG TAB PO SCH (21:36)
[2021-03-21] MEDS: methylPREDNISolone SOD SUCCI 125 MG/2 ML VIAL IV SCH ×4 (02:10→20:54)
[2021-03-21 07:01] LABS: Glucose,Whole Blood 192 mg/dL (75-99)
[2021-03-21] MEDS: PANTOPRAZOLE 40 MG TABLET PO SCH (09:03)
[2021-03-21] MEDS: FAMOTIDINE 20 MG TAB PO SCH (09:03)
[2021-03-21] MEDS: ZINC SULFATE 220 MG CAP PO SCH (09:03)
[2021-03-21] MEDS: ENOXAPARIN 40 MG/0.4 ML SYRINGE SQ SCH (09:03)
[2021-03-21] MEDS: FUROSEMIDE 10 MG/ML 4 ML VIAL IV SCH ×2 (09:03→20:53)
[2021-03-21] MEDS: METOPROLOL TARTRATE 50 MG TAB PO SCH (09:04)
[2021-03-21] MEDS: INSULIN ASPART (NovoLOG) 100 UNIT/ML VIAL SQ SCH ×8 (09:04→20:54)
[2021-03-21] MEDS: allopurinoL 100 MG TAB PO SCH (09:04)
[2021-03-21] MEDS: ISOSORBIDE MONONITRATE ER 30 MG TAB.ER.24H PO SCH (09:04)
[2021-03-21] MEDS: MAGNESIUM OXIDE 400 MG TAB PO SCH (09:04)
[2021-03-21] MEDS: CHOLECALCIFEROL 125 MCG (5000 IU) TABLET PO SCH (09:04)
[2021-03-21] MEDS: TAMSULOSIN 0.4 MG CAP.ER.24H PO SCH (09:04)
[2021-03-21] MEDS: ASCORBIC ACID 500 MG TAB PO SCH ×2 (09:04→20:53)
[2021-03-21] MEDS: ASPIRIN 81 MG PO SCH (09:04)
[2021-03-21] MEDS: QUEtiapine 25 MG TAB PO SCH ×2 (09:04→20:53)
[2021-03-21] MEDS: BARICITINIB 2 MG TABLET PO SCH (09:05)
[2021-03-21] MEDS: COLCHICINE 0.6 MG EACH PO SCH (09:06)
[2021-03-21] MEDS: ALBUTEROL HFA INHALER INHALATION SCH ×4 (10:05→21:22)
[2021-03-21] MEDS: SYMBICORT 160-4.5 MCG INHALER INHALATION SCH ×2 (10:05→21:22)
[2021-03-21 10:07] LABS: African American GFR (CKD) 57.8 (60.0-200.0); Albumin 3.4 g/dL (3.8-4.9); Albumin/Globulin Ratio 1.62 (1.60-3.17); BUN/Creat Ratio 40.07 Ratio (12.00-20.00); Blood Urea Nitrogen 56.1 mg/dL (9.0-27.0); Calcium 8.6 mg/dL (8.7-10.3); Globulin 2.1 g/dL (1.6-3.3); Non-African American GFR(CKD) 49.8 (60.0-200.0); Potassium 3.4 mmol/L (3.5-5.5); Total Bilirubin 0.4 mg/dL (0.30-1.20); Total Protein 5.5 g/dL (6.2-8.2)
[2021-03-21] MEDS ORDERED: POTASSIUM CHLORIDE ER 20 MEQ TAB.ER PO STA (11:05)
[2021-03-21 11:30] LABS: Basophils # (A) 0.03 X 10*3/uL (0.00-0.10); Basophils % (A) 0.2 %; Eosinophils # (A) 0 X 10*3/uL (0.04-0.35); Eosinophils % (A) 0 %; HCT 43.7 % (39.6-50.0); HGB 13.9 g/dL (13.0-17.0); Lymphocytes # (A) 0.29 X 10*3/uL (0.90-5.00); Lymphocytes % (A) 1.8 %; MCH 31.6 pg (27.0-32.0); MCHC 31.8 g/dL (32.0-37.0); MCV 99.3 fL (80.0-97.0); Mean Platelet Volume 13.1 fL (9.5-12.2); Monocytes # (A) 0.41 X 10*3/uL (0.20-1.00); Monocytes % (A) 2.5 %; Neutrophils # (A) 15.53 X 10*3/uL (1.80-7.70); Neutrophils % (A) 94.2 %; Platelet Count 145 X 10*3/uL (140-440); RDW 14.4 % (11.5-14.5); WBC 16.47 X 10*3/uL (4.50-10.00)
[2021-03-21 11:43] LABS: Glucose,Whole Blood 266 mg/dL (75-99)
--- NOTE | 2021-03-21 13:31 | P.PN ---
Subjective Progress Note Date: 03/21/21 Principal diagnosis: CoVID pneumonia This 71-year-old white male patient who follows with Dr. Torres in the pulmonary clinic for his history of advanced COPD on home oxygen patient usually wears 4 L on a regular basis, he is prednisone dependent and usually takes 20 mg on a regular basis, coronary artery disease, diabetes mellitus type 2, previous history of CVA, hypertension, hyperlipidemia, previous history of pneumonia, chronic kidney disease unspecified, sleep apnea, BPH, osteoarthritis. Patient presented to the emergency department on 03/12/2021 for evaluation of worsening dyspnea. Patient had a fever at home up to 101.7F. He saw Dr. Torres on Friday03/09/2021 and his antibiotics were changed. Patient was also given a prednisone taper and was placed on Levaquin. Has chronic swelling in his lower extremities which is unchanged. Of note patient was tested for COVID-19 on 03/02/2021 and was found to be negative. During this visit to the ED he tested positive on 03/12/2021. Patient has been vaccinated against COVID-19. His chest x-ray shows increasing diffuse interstitial opacity, with the possibility of fluid overload/CHF, interstitial pneumonitis, atypical pneumonia or chronic pneumonia. His blood work on admission has been reviewed showing white blood cell count of 12.7, hemoglobin of 12.3, his INR 0.9, sodium is 136, potassium is 4.2, chloride is 97, CO2 31, BUN is 55, creatinine is 1.28, troponin is less than 0.012, proBNP is within normal limits at 206. Patient has been started on Decadron 6 blood gram daily which we will increase to twice daily, he was placed on albuterol and Symbicort, he is on subcutaneous heparin 5000 units every 12 hours, and the patient is within the window for Remdesivir which she will be started on today. On 03/14/2021 patient seen in follow-up on medical surgical floor, he is breathing comfortably, she is resting in bed, no worsening dyspnea, he is currently on 12 L of oxygen his pulse ox is 92%, does have mildly congested cough, no chest discomfort, blood pressure is stable, his been afebrile. Lower extremity Dopplers showed no evidence of DVT. Today's labs have been reviewed, his white count is 16.9, hemoglobin is 12.8, sodium is 146, the rest of electrolytes are within normal limits, BUN is 40, creatinine is 1.2. LDH was 526, not significantly elevated, CRP was 13.6, follow-up in addition he remains on prophylactic dose Lovenox, he is on Decadron 6 mg twice daily. On 03/15/2021 patient seen in follow-up on medical surgical floor. He is awake and alert, he is currently on 10 L of oxygen, down from 12 L on yesterday's exam, he states his breathing is improving, his coughing less, his been afebrile, hemodynamically stable, no chest discomfort. His been ambulating about the room, tolerates activity well. Today's chest x-ray showing mild cardiomegaly, and stable diffuse interstitial changes and patchy peripheral infiltrates. Today's labs have been reviewed, his white blood cell count is 21.2, hemoglobin is 13.3, his d-dimer is improved and is down to 1.23, sodium is 146, the rest of the electrolytes are within normal limits, BUN is 44, creatinine is 1.3. His LDH is 625, slightly increased from most previous value of 526, CRP is improved and is down to 4.7 on today's labs, pro-calcitonin level is negative 2 at 0.16, and 0.19. Blood cultures have shown no growth. He currently continues on Decadron 6 mg twice daily, he is on Lovenox 40 mg once daily, he is on IV Lasix 40 mg every 12 hours, and we started him on the Remdesivir yesterday and today is day 3 of treatment. On 03/16/2021 patient seen in follow-up on medical surgical floor, he is awake and alert, in no acute distress, he states his breathing is about the same, not any worse, however his oxygen demand has increased to 15 L, his pulse ox is 88- 90%, his been afebrile, blood pressures been stable, denies any chest discomfort, no hemoptysis, lung sounds reveal scattered crackles mostly at bilateral bases, his chest x-ray from yesterday showed mild cardiomegaly, diffuse interstitial changes. Patient has been on IV Lasix 40 mg twice daily unfortunately has not fluid balance is very difficult to estimate, his lower extremity edema appears to be slightly better. He continues on Remdesivir, and today is day 4 of treatment. Today's labs have been reviewed, his white count is improving and is down to 16.5, hemoglobin is 12.4, his d-dimer was improving on yesterday's labs, and was down to 1.23, patient remains on prophylactic dose Lovenox 40 mg daily, BUN is 47, creatinine is 1.3, potassium is 3.8, sodium is 141, pro-calcitonin level was negative 2. Blood cultures were negative 2. Patient seen today 03/17/2021 in follow-up on the regular medical floor. He is currently sitting up the bedside. Awake and alert in no acute distress. He denies any worsening shortness of breath, cough or can just in. He is having some confusion at nighttime and pulling at his oxygen. He is currently on 15 L high flow nasal cannula with O2 saturations in the low 90s. Not requiring a nonrebreather mask at this point. Sodium 139. Potassium 4.3. Creatinine 1.20. Glucose 200. He is continued on bronchodilators, Lovenox, Decadron, vitamin supplements. Day #5 of Remdesivir. The patient is seen today 03/21/2021 in follow-up on the regular medical floor. He sitting up in a chair at the bedside. Awake and alert in no acute distress. Breathing a bit easier today. States no worse. He is still on AirVo at 55 L and 85% FiO2 with O2 saturations 87-92%. He is continued on Baricitinib, bronchodilators, Lovenox, IV Solu-Medrol and vitamin supplement. White count 16.4. Hemoglobin 13.9. Platelet count 145,000. Sodium 141 potassium 3.4. Creatinine 1.4. Blood glucose 201. AST 35. ALT 68. Objective - Vital Signs Vital signs: Vital Signs Temp 98.1 F 03/21/21 10:00 Pulse 74 03/21/21 10:00 Resp 17 03/21/21 10:00 BP 136/78 03/21/21 10:00 Pulse Ox 92 L 03/21/21 10:05 Intake & Output 03/20/21 03/21/21 03/21/21 18:59 06:59 18:59 Intake Total 472 Output Total 375 500 400 Balance -375 -500 72 Weight 97.5 kg 99 kg Intake: Oral 472 Output: Urine 500 400 Post Void Residual 375 Other: Voiding Method Urinal Urinal # Bowel Movements 1 - Exam GENERAL EXAM: Alert, pleasant, 71-year-old male patient, up in a chair at the bedside on careful high flow oxygen at 55 L and 85% FiO2 with O2 saturation 87 and 92% comfortable in no apparent distress. HEAD: Normocephalic/atraumatic. EYES: Normal reaction of pupils, equal size. Conjunctiva pink, sclera white. NOSE: Clear with pink turbinates. THROAT: No erythema or exudates. NECK: No masses, no JVD, no thyroid enlargement, no adenopathy. CHEST: No chest wall deformity. Symmetrical expansion. LUNGS: Equal air entry with diffuse crackles, and a few rhonchi CVS: Regular rate and rhythm, normal S1 and S2, no gallops, no murmurs, no rubs ABDOMEN: Soft, nontender. No hepatosplenomegaly, normal bowel sounds, no guarding or rigidity. EXTREMITIES: No clubbing, plus lower extremity edema with chronic venous stasis, no cyanosis, 2+ pulses and upper and lower extremities. MUSCULOSKELETAL: Muscle strength and tone normal. SPINE: No scoliosis or deformity SKIN: No rashes CENTRAL NERVOUS SYSTEM: No focal deficits, tone is normal in all 4 extremities. PSYCHIATRIC: Alert and oriented -3. Appropriate affect. Intact judgment and insight. - Labs CBC & Chem 7: 03/21/21 06:32 03/21/21 06:32 Labs: Abnormal Lab Results - Last 24 Hours (Table) 03/20/21 03/20/21 03/21/21 Range/Units 17:06 20:53 06:32 WBC 16.47 H (4.50-10.00) X 10*3/uL MCV 99.3 H (80.0-97.0) fL MCHC 31.8 L (32.0-37.0) g/dL MPV 13.1 H (9.5-12.2) fL Immature Gran # 0.21 H (0.00-0.04) X 10*3/uL Neutrophils # 15.53 H (1.80-7.70) X 10*3/uL Lymphocytes # 0.29 L (0.90-5.00) X 10*3/uL Eosinophils # 0 L (0.04-0.35) X 10*3/uL Potassium (3.5-5.5) mmol/L Carbon Dioxide (20.0-27.5) mmol/L BUN (9.0-27.0) mg/dL Est GFR (CKD-EPI)AfAm (60.0-200.0) Est GFR (CKD-EPI)NonAf (60.0-200.0) BUN/Creatinine Ratio (12.00-20.00) Ratio Glucose (70-110) mg/dL POC Glucose (mg/dL) 318 H 310 H (75-99) mg/dL Calcium (8.7-10.3) mg/dL ALT (10-49) U/L Total Protein (6.2-8.2) g/dL Albumin (3.8-4.9) g/dL 03/21/21 03/21/21 03/21/21 Range/Units 06:32 07:00 11:42 WBC (4.50-10.00) X 10*3/uL MCV (80.0-97.0) fL MCHC (32.0-37.0) g/dL MPV (9.5-12.2) fL Immature Gran # (0.00-0.04) X 10*3/uL Neutrophils # (1.80-7.70) X 10*3/uL Lymphocytes # (0.90-5.00) X 10*3/uL Eosinophils # (0.04-0.35) X 10*3/uL Potassium 3.4 L (3.5-5.5) mmol/L Carbon Dioxide 29.0 H (20.0-27.5) mmol/L BUN 56.1 H (9.0-27.0) mg/dL Est GFR (CKD-EPI)AfAm 57.8 L (60.0-200.0) Est GFR (CKD-EPI)NonAf 49.8 L (60.0-200.0) BUN/Creatinine Ratio 40.07 H (12.00-20.00) Ratio Glucose 201 H (70-110) mg/dL POC Glucose (mg/dL) 192 H 266 H (75-99) mg/dL Calcium 8.6 L (8.7-10.3) mg/dL ALT 68 H (10-49) U/L Total Protein 5.5 L (6.2-8.2) g/dL Albumin 3.4 L (3.8-4.9) g/dL Assessment and Plan Assessment: 1 Acute on chronic hypoxic respiratory failure related to acute COVID-19 related pneumonia, patient tested positive on 03/12/2021. Patient is vaccinated against COVID-19. His symptoms have worsened over last week, patient completed Remdesivir. On 03/18/2021 the patient's oxygenation worsened and he was placed on AirVo high flow oxygen and initiated on Baricitinib. 2 Acute exacerbation of COPD 3 Chronic COPD, advanced, with a baseline FEV1 of 1.71 L or FEV1 of 58% usually on home oxygen at 4 L 4 Recent 2 hospitalizations for acute exacerbation of COPD in early February, during which patient tested negative for COVID-19, urinalysis was also negative, influenza A and B were negative 5 Diabetes mellitus type 2 6 Hypertension, 7 Hyperlipidemia 8 History of coronary artery disease with previous stenting 9 History of CHF, unspecified 10 History of CVA/TIA 11 Osteoarthritis 12 Chronic knee disease, unspecified 13 Chronic venous insufficiency 14 Chronic back pain 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, currently in remission 16 Sleep apnea does not wear CPAP 17 Marijuana use 18 Elevated d-dimer related to acute COVID-19 infection, we'll obtain lower extremity Dopplers and will consider CT angiogram of the chest Plan: The patient was seen and evaluated Currently on AirVo high flow oxygen at 55 L and 85% FiO2 Continue Baricitinib, Lovenox, IV Solu-Medrol, vitamin supplements Completed Remdesivir Titrate the FiO2 as tolerated Add incentive spirometer and encourage cough and deep breathing exercises Increase his activity as tolerated We'll continue to follow I, the cosigning physician, performed a history & physical examination of the patient. Lungs sounds crackles in the bilateral bases. Maintaining O2 saturations in the 90s on AirVo high flow oxygen at 55 L and 85% FiO2. I dis cussed the assessment and plan of care with my nurse practitioner, Judi Crawford. I attest to the above note as dictated by her.
[2021-03-21 17:11] LABS: Glucose,Whole Blood 176 mg/dL (75-99)
--- NOTE | 2021-03-21 17:40 | PN ---
PROGRESS NOTE Patient is seen for followup for acute kidney injury. He is currently being treated for COVID pneumonia. Renal function has been improving, creatinine now staying at about 1.3-1.4 mg/dL. The patient is currently being diuresed. He is maintained on IV Lasix at 40 mg q.12 hours. Oxygen requirements in regards to COVID have been stable. The patient remains on an Airvo. PHYSICAL EXAMINATION: On examination today, blood pressure was 136/78, heart rate 74 per minute. He is afebrile. Examination of lower extremities shows bilateral extremities currently wrapped. The patient has about 2+ edema. 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 LAB: Show hemoglobin 13.9 today. Sodium 141, potassium 3.4, BUN 56, creatinine 1.4. Potassium was 3.4. ASSESSMENT: 1. Acute kidney injury, ATN, with volume overload, maintained on IV Lasix. Will continue to diurese patient for now. 2. Hypokalemia associated with diuresis status post replacement. 3. Acute hypoxic respiratory failure, multifactorial, including COVID pneumonia. 4. Congestive heart failure, acute on top of chronic, mostly diastolic. 5. Chronic obstructive pulmonary disease with exacerbation. PLAN: Continue with IV Lasix. repeat labs in a.m. Monitor electrolytes. MMODL / IJN: [id number] /
[2021-03-21 19:55] LABS: Glucose,Whole Blood 281 mg/dL (75-99)
[2021-03-21] MEDS: METOPROLOL TARTRATE 25 MG TAB PO SCH (20:53)
[2021-03-21] MEDS: PRAMIPEXOLE 1 MG TAB PO SCH (20:53)
[2021-03-21] MEDS: INSULIN DETEMIR (LEVEMIR) 100 UNIT/ML SYR SQ SCH (20:54)
[2021-03-22] MEDS: methylPREDNISolone SOD SUCCI 125 MG/2 ML VIAL IV SCH ×4 (03:35→20:32)
[2021-03-22 07:06] LABS: Glucose,Whole Blood 134 mg/dL (75-99)
[2021-03-22] MEDS: ALBUTEROL HFA INHALER INHALATION SCH ×4 (08:07→20:04)
[2021-03-22] MEDS: SYMBICORT 160-4.5 MCG INHALER INHALATION SCH ×2 (08:07→20:04)
--- NOTE | 2021-03-22 08:54 | P.PN ---
Subjective Progress Note Date: 03/22/21 Principal diagnosis: This is a 71-year-old male with acute kidney injury, chronic kidney disease, COVID pneumonia and congestive heart failure. He is on Lasix. Subjectively he feels well is currently on oxygen via nasal cannula. Good appetite no nausea vomiting. No fever chills. Vital signs are stable urine output is documented at 500 mL. He does use oxygen at home, He is also known with coronary artery disease, type 2 diabetes, BPH, history of DVT, sleep apnea. Objective - Vital Signs Vital signs: Vital Signs Temp 97.7 F 03/22/21 06:00 Pulse 68 03/22/21 06:00 Resp 17 03/22/21 06:00 BP 139/69 03/22/21 06:00 Pulse Ox 91 L 03/22/21 06:00 Intake & Output 03/21/21 03/22/21 03/22/21 18:59 06:59 18:59 Intake Total 472 Output Total 400 Balance 72 Weight 97.2 kg Intake: Oral 472 Output: Urine 400 Other: # Bowel Movements 1 On exam currently awake alert oriented A chin exam no JVP neck is supple no facial asymmetry Lungs are clear to auscultation, fair air entry bilaterally occasional coarse crackle at bases Heart sounds are unremarkable for any murmur rub gallop Abdomen soft somewhat obese nontender Extremity exam was moderate edema Neurologically awake alert oriented - Labs CBC & Chem 7: 03/21/21 06:32 03/21/21 06:32 Labs: Abnormal Lab Results - Last 24 Hours (Table) 03/21/21 03/21/21 03/21/21 Range/Units 06:32 06:32 11:42 WBC 16.47 H (4.50-10.00) X 10*3/uL MCV 99.3 H (80.0-97.0) fL MCHC 31.8 L (32.0-37.0) g/dL MPV 13.1 H (9.5-12.2) fL Immature Gran # 0.21 H (0.00-0.04) X 10*3/uL Neutrophils # 15.53 H (1.80-7.70) X 10*3/uL Lymphocytes # 0.29 L (0.90-5.00) X 10*3/uL Eosinophils # 0 L (0.04-0.35) X 10*3/uL Potassium 3.4 L (3.5-5.5) mmol/L Carbon Dioxide 29.0 H (20.0-27.5) mmol/L BUN 56.1 H (9.0-27.0) mg/dL Est GFR (CKD-EPI)AfAm 57.8 L (60.0-200.0) Est GFR (CKD-EPI)NonAf 49.8 L (60.0-200.0) BUN/Creatinine Ratio 40.07 H (12.00-20.00) Ratio Glucose 201 H (70-110) mg/dL POC Glucose (mg/dL) 266 H (75-99) mg/dL Calcium 8.6 L (8.7-10.3) mg/dL ALT 68 H (10-49) U/L Total Protein 5.5 L (6.2-8.2) g/dL Albumin 3.4 L (3.8-4.9) g/dL 03/21/21 03/21/21 03/22/21 Range/Units 16:42 19:54 07:04 WBC (4.50-10.00) X 10*3/uL MCV (80.0-97.0) fL MCHC (32.0-37.0) g/dL MPV (9.5-12.2) fL Immature Gran # (0.00-0.04) X 10*3/uL Neutrophils # (1.80-7.70) X 10*3/uL Lymphocytes # (0.90-5.00) X 10*3/uL Eosinophils # (0.04-0.35) X 10*3/uL Potassium (3.5-5.5) mmol/L Carbon Dioxide (20.0-27.5) mmol/L BUN (9.0-27.0) mg/dL Est GFR (CKD-EPI)AfAm (60.0-200.0) Est GFR (CKD-EPI)NonAf (60.0-200.0) BUN/Creatinine Ratio (12.00-20.00) Ratio Glucose (70-110) mg/dL POC Glucose (mg/dL) 176 H 281 H 134 H (75-99) mg/dL Calcium (8.7-10.3) mg/dL ALT (10-49) U/L Total Protein (6.2-8.2) g/dL Albumin (3.8-4.9) g/dL Assessment and Plan Assessment: Impression 1. Acute kidney injury from: With pneumonia and congestive heart failure 2. Chronic kidney disease, stage III, previous creatinine 1.3 mg to 1.1 mg with nephrosclerosis and possibly diabetic nephropathy trace proteinuria 3. COPD sleep apnea congestive heart failure 4. History of BPH 5. Hypokalemia scan to diuretics, potassium today is 3.4. Recommendation 1. Continue Lasix 40 every 12 IV 2. Replace potassium with a total of 60 mEq by mouth 3. Monitor labs intake and output and blood pressure
[2021-03-22] MEDS: ENOXAPARIN 40 MG/0.4 ML SYRINGE SQ SCH (08:56)
[2021-03-22] MEDS: INSULIN ASPART (NovoLOG) 100 UNIT/ML VIAL SQ SCH ×8 (08:56→21:20)
[2021-03-22] MEDS: FUROSEMIDE 10 MG/ML 4 ML VIAL IV SCH ×2 (08:56→20:32)
[2021-03-22] MEDS: ASCORBIC ACID 500 MG TAB PO SCH ×2 (08:57→20:30)
[2021-03-22] MEDS: ASPIRIN 81 MG PO SCH (08:57)
[2021-03-22] MEDS: QUEtiapine 25 MG TAB PO SCH ×2 (08:57→20:32)
[2021-03-22] MEDS: MAGNESIUM OXIDE 400 MG TAB PO SCH (08:57)
[2021-03-22] MEDS: PANTOPRAZOLE 40 MG TABLET PO SCH (08:57)
[2021-03-22] MEDS: allopurinoL 100 MG TAB PO SCH (08:57)
[2021-03-22] MEDS: METOPROLOL TARTRATE 50 MG TAB PO SCH (08:57)
[2021-03-22] MEDS: ISOSORBIDE MONONITRATE ER 30 MG TAB.ER.24H PO SCH (08:57)
[2021-03-22] MEDS: BARICITINIB 2 MG TABLET PO SCH (08:58)
[2021-03-22] MEDS: FAMOTIDINE 20 MG TAB PO SCH (08:58)
[2021-03-22] MEDS: CHOLECALCIFEROL 125 MCG (5000 IU) TABLET PO SCH (08:58)
[2021-03-22] MEDS: ZINC SULFATE 220 MG CAP PO SCH (08:58)
[2021-03-22] MEDS: TAMSULOSIN 0.4 MG CAP.ER.24H PO SCH (08:58)
[2021-03-22] MEDS: COLCHICINE 0.6 MG EACH PO SCH (08:59)
[2021-03-22] MEDS: POTASSIUM CHLORIDE ER 20 MEQ TAB.ER PO SCH ×3 (09:08→12:56)
[2021-03-22 11:03] LABS: ALT 74 U/L (10-49); AST 42 U/L (14-35); African American GFR (CKD) 58.3 (60.0-200.0); Albumin 3.4 g/dL (3.8-4.9); Alkaline Phosphatase 96 U/L (41-126); BUN/Creat Ratio 38.78 Ratio (12.00-20.00); Blood Urea Nitrogen 53.9 mg/dL (9.0-27.0); C Reactive Protein <0.30 mg/dL (0.00-0.80); Calcium 8.7 mg/dL (8.7-10.3); Carbon Dioxide 30.5 mmol/L (20.0-27.5); Chloride 97 mmol/L (96-109); Globulin 2.1 g/dL (1.6-3.3); Glucose 120 mg/dL (70-110); LDH 597 U/L (120-246); Non-African American GFR(CKD) 50.3 (60.0-200.0); Potassium 3.6 mmol/L (3.5-5.5); Sodium 143 mmol/L (135-145); Total Protein 5.5 g/dL (6.2-8.2)
[2021-03-22 11:43] LABS: Glucose,Whole Blood 182 mg/dL (75-99)
[2021-03-22 12:14] LABS: Basophils # (A) 0.03 X 10*3/uL (0.00-0.10); Basophils % (A) 0.2 %; Eosinophils # (A) 0 X 10*3/uL (0.04-0.35); Eosinophils % (A) 0 %; HCT 42.8 % (39.6-50.0); HGB 13.7 g/dL (13.0-17.0); Lymphocytes # (A) 0.26 X 10*3/uL (0.90-5.00); Lymphocytes % (A) 1.4 %; MCH 32.1 pg (27.0-32.0); MCV 100.2 fL (80.0-97.0); Mean Platelet Volume 13.8 fL (9.5-12.2); Monocytes # (A) 0.42 X 10*3/uL (0.20-1.00); Monocytes % (A) 2.3 %; Neutrophils # (A) 17.73 X 10*3/uL (1.80-7.70); Neutrophils % (A) 95.1 %; Platelet Count 133 X 10*3/uL (140-440); RBC 4.27 X 10*6/uL (4.40-5.60); RDW 14.8 % (11.5-14.5); WBC 18.62 X 10*3/uL (4.50-10.00)
[2021-03-22 16:35] LABS: Glucose,Whole Blood 140 mg/dL (75-99)
--- NOTE | 2021-03-22 17:31 | P.PN ---
Subjective Progress Note Date: 03/22/21 Principal diagnosis: CoVID pneumonia This 71-year-old white male patient who follows with Dr. Torres in the pulmonary clinic for his history of advanced COPD on home oxygen patient usually wears 4 L on a regular basis, he is prednisone dependent and usually takes 20 mg on a regular basis, coronary artery disease, diabetes mellitus type 2, previous history of CVA, hypertension, hyperlipidemia, previous history of pneumonia, chronic kidney disease unspecified, sleep apnea, BPH, osteoarthritis. Patient presented to the emergency department on 03/12/2021 for evaluation of worsening dyspnea. Patient had a fever at home up to 101.7F. He saw Dr. Torres on Friday03/09/2021 and his antibiotics were changed. Patient was also given a prednisone taper and was placed on Levaquin. Has chronic swelling in his lower extremities which is unchanged. Of note patient was tested for COVID-19 on 03/02/2021 and was found to be negative. During this visit to the ED he tested positive on 03/12/2021. Patient has been vaccinated against COVID-19. His chest x-ray shows increasing diffuse interstitial opacity, with the possibility of fluid overload/CHF, interstitial pneumonitis, atypical pneumonia or chronic pneumonia. His blood work on admission has been reviewed showing white blood cell count of 12.7, hemoglobin of 12.3, his INR 0.9, sodium is 136, potassium is 4.2, chloride is 97, CO2 31, BUN is 55, creatinine is 1.28, troponin is less than 0.012, proBNP is within normal limits at 206. Patient has been started on Decadron 6 blood gram daily which we will increase to twice daily, he was placed on albuterol and Symbicort, he is on subcutaneous heparin 5000 units every 12 hours, and the patient is within the window for Remdesivir which she will be started on today. On 03/14/2021 patient seen in follow-up on medical surgical floor, he is breathing comfortably, she is resting in bed, no worsening dyspnea, he is currently on 12 L of oxygen his pulse ox is 92%, does have mildly congested cough, no chest discomfort, blood pressure is stable, his been afebrile. Lower extremity Dopplers showed no evidence of DVT. Today's labs have been reviewed, his white count is 16.9, hemoglobin is 12.8, sodium is 146, the rest of electrolytes are within normal limits, BUN is 40, creatinine is 1.2. LDH was 526, not significantly elevated, CRP was 13.6, follow-up in addition he remains on prophylactic dose Lovenox, he is on Decadron 6 mg twice daily. On 03/15/2021 patient seen in follow-up on medical surgical floor. He is awake and alert, he is currently on 10 L of oxygen, down from 12 L on yesterday's exam, he states his breathing is improving, his coughing less, his been afebrile, hemodynamically stable, no chest discomfort. His been ambulating about the room, tolerates activity well. Today's chest x-ray showing mild cardiomegaly, and stable diffuse interstitial changes and patchy peripheral infiltrates. Today's labs have been reviewed, his white blood cell count is 21.2, hemoglobin is 13.3, his d-dimer is improved and is down to 1.23, sodium is 146, the rest of the electrolytes are within normal limits, BUN is 44, creatinine is 1.3. His LDH is 625, slightly increased from most previous value of 526, CRP is improved and is down to 4.7 on today's labs, pro-calcitonin level is negative 2 at 0.16, and 0.19. Blood cultures have shown no growth. He currently continues on Decadron 6 mg twice daily, he is on Lovenox 40 mg once daily, he is on IV Lasix 40 mg every 12 hours, and we started him on the Remdesivir yesterday and today is day 3 of treatment. On 03/16/2021 patient seen in follow-up on medical surgical floor, he is awake and alert, in no acute distress, he states his breathing is about the same, not any worse, however his oxygen demand has increased to 15 L, his pulse ox is 88- 90%, his been afebrile, blood pressures been stable, denies any chest discomfort, no hemoptysis, lung sounds reveal scattered crackles mostly at bilateral bases, his chest x-ray from yesterday showed mild cardiomegaly, diffuse interstitial changes. Patient has been on IV Lasix 40 mg twice daily unfortunately has not fluid balance is very difficult to estimate, his lower extremity edema appears to be slightly better. He continues on Remdesivir, and today is day 4 of treatment. Today's labs have been reviewed, his white count is improving and is down to 16.5, hemoglobin is 12.4, his d-dimer was improving on yesterday's labs, and was down to 1.23, patient remains on prophylactic dose Lovenox 40 mg daily, BUN is 47, creatinine is 1.3, potassium is 3.8, sodium is 141, pro-calcitonin level was negative 2. Blood cultures were negative 2. Patient seen today 03/17/2021 in follow-up on the regular medical floor. He is currently sitting up the bedside. Awake and alert in no acute distress. He denies any worsening shortness of breath, cough or can just in. He is having some confusion at nighttime and pulling at his oxygen. He is currently on 15 L high flow nasal cannula with O2 saturations in the low 90s. Not requiring a nonrebreather mask at this point. Sodium 139. Potassium 4.3. Creatinine 1.20. Glucose 200. He is continued on bronchodilators, Lovenox, Decadron, vitamin supplements. Day #5 of Remdesivir. The patient is seen today 03/21/2021 in follow-up on the regular medical floor. He sitting up in a chair at the bedside. Awake and alert in no acute distress. Breathing a bit easier today. States no worse. He is still on AirVo at 55 L and 85% FiO2 with O2 saturations 87-92%. He is continued on Baricitinib, bronchodilators, Lovenox, IV Solu-Medrol and vitamin supplement. White count 16.4. Hemoglobin 13.9. Platelet count 145,000. Sodium 141 potassium 3.4. Creatinine 1.4. Blood glucose 201. AST 35. ALT 68. The patient seen today 03/22/2021 in follow-up on the regular medical floor. He is currently sitting up in a chair at the bedside. Awake and alert in mild respiratory distress. He is currently on AirVo high flow oxygen at 60 L and 85% FiO2 and occasionally 100% nonrebreather mask. He is continued on Baricitinib, Lovenox, IV Solu-Medrol, vitamin supplements. Remains on Symbicort, albuterol. Remains on IV diuretics. White count 18.6. Hemoglobin 13.7. Platelets 133. Sodium 143. Potassium 3.6. Creatinine 1.4. Glucose 120. AST 42. ALT 74. LDH 597. C-reactive protein less than 0.3. Objective - Vital Signs Vital signs: Vital Signs Temp 98.2 F 03/22/21 14:00 Pulse 85 03/22/21 14:00 Resp 16 03/22/21 14:00 BP 133/73 03/22/21 14:00 Pulse Ox 98 03/22/21 14:00 Intake & Output 03/21/21 03/22/21 03/22/21 18:59 06:59 18:59 Intake Total 472 472 Output Total 400 Balance 72 472 Weight 97.2 kg Intake: Oral 472 472 Output: Urine 400 Other: Voiding Method Urinal Urinal # Bowel Movements 1 - Exam GENERAL EXAM: Alert, pleasant, 71-year-old male patient, up in a chair at the bedside on AirVo high flow oxygen at 60 L and 85% FiO2, fairly comfortable in no apparent distress. HEAD: Normocephalic/atraumatic. EYES: Normal reaction of pupils, equal size. Conjunctiva pink, sclera white. NOSE: Clear with pink turbinates. THROAT: No erythema or exudates. NECK: No masses, no JVD, no thyroid enlargement, no adenopathy. CHEST: No chest wall deformity. Symmetrical expansion. LUNGS: Equal air entry with diffuse crackles, and a few rhonchi CVS: Regular rate and rhythm, normal S1 and S2, no gallops, no murmurs, no rubs ABDOMEN: Soft, nontender. No hepatosplenomegaly, normal bowel sounds, no guarding or rigidity. EXTREMITIES: No clubbing, plus lower extremity edema with chronic venous stasis, no cyanosis, 2+ pulses and upper and lower extremities. MUSCULOSKELETAL: Muscle strength and tone normal. SPINE: No scoliosis or deformity SKIN: No rashes CENTRAL NERVOUS SYSTEM: No focal deficits, tone is normal in all 4 extremities. PSYCHIATRIC: Alert and oriented -3. Appropriate affect. Intact judgment and insight. - Labs CBC & Chem 7: 03/22/21 06:45 03/22/21 06:45 Labs: Abnormal Lab Results - Last 24 Hours (Table) 03/21/21 03/22/21 03/22/21 Range/Units 19:54 06:45 06:45 WBC 18.62 H (4.50-10.00) X 10*3/uL RBC 4.27 L (4.40-5.60) X 10*6/uL MCV 100.2 H (80.0-97.0) fL MCH 32.1 H (27.0-32.0) pg RDW 14.8 H (11.5-14.5) % Plt Count 133 L (140-440) X 10*3/uL MPV 13.8 H (9.5-12.2) fL Immature Gran # 0.18 H (0.00-0.04) X 10*3/uL Neutrophils # 17.73 H (1.80-7.70) X 10*3/uL Lymphocytes # 0.26 L (0.90-5.00) X 10*3/uL Eosinophils # 0 L (0.04-0.35) X 10*3/uL Carbon Dioxide 30.5 H (20.0-27.5) mmol/L BUN 53.9 H (9.0-27.0) mg/dL Est GFR (CKD-EPI)AfAm 58.3 L (60.0-200.0) Est GFR (CKD-EPI)NonAf 50.3 L (60.0-200.0) BUN/Creatinine Ratio 38.78 H (12.00-20.00) Ratio Glucose 120 H (70-110) mg/dL POC Glucose (mg/dL) 281 H (75-99) mg/dL AST 42 H (14-35) U/L ALT 74 H (10-49) U/L Lactate Dehydrogenase 597 H (120-246) U/L Total Protein 5.5 L (6.2-8.2) g/dL Albumin 3.4 L (3.8-4.9) g/dL 03/22/21 03/22/21 03/22/21 Range/Units 07:04 11:41 16:33 WBC (4.50-10.00) X 10*3/uL RBC (4.40-5.60) X 10*6/uL MCV (80.0-97.0) fL MCH (27.0-32.0) pg RDW (11.5-14.5) % Plt Count (140-440) X 10*3/uL MPV (9.5-12.2) fL Immature Gran # (0.00-0.04) X 10*3/uL Neutrophils # (1.80-7.70) X 10*3/uL Lymphocytes # (0.90-5.00) X 10*3/uL Eosinophils # (0.04-0.35) X 10*3/uL Carbon Dioxide (20.0-27.5) mmol/L BUN (9.0-27.0) mg/dL Est GFR (CKD-EPI)AfAm (60.0-200.0) Est GFR (CKD-EPI)NonAf (60.0-200.0) BUN/Creatinine Ratio (12.00-20.00) Ratio Glucose (70-110) mg/dL POC Glucose (mg/dL) 134 H 182 H 140 H (75-99) mg/dL AST (14-35) U/L ALT (10-49) U/L Lactate Dehydrogenase (120-246) U/L Total Protein (6.2-8.2) g/dL Albumin (3.8-4.9) g/dL Assessment and Plan Assessment: 1 Acute on chronic hypoxic respiratory failure related to acute COVID-19 related pneumonia, patient tested positive on 03/12/2021. Patient is vaccinated against COVID-19. His symptoms have worsened over last week, patient completed Remdesivir. On 03/18/2021 the patient's oxygenation worsened and he was placed on AirVo high flow oxygen and initiated on Baricitinib. 2 Acute exacerbation of COPD 3 Chronic COPD, advanced, with a baseline FEV1 of 1.71 L or FEV1 of 58% usually on home oxygen at 4 L 4 Recent 2 hospitalizations for acute exacerbation of COPD in early February, during which patient tested negative for COVID-19, urinalysis was also negative, influenza A and B were negative 5 Diabetes mellitus type 2 6 Hypertension, 7 Hyperlipidemia 8 History of coronary artery disease with previous stenting 9 History of CHF, unspecified 10 History of CVA/TIA 11 Osteoarthritis 12 Chronic knee disease, unspecified 13 Chronic venous insufficiency 14 Chronic back pain 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 We'll continue to follow I, the cosigning physician, performed a history & physical examination of the patient. Lungs sounds crackles in the bilateral bases. Maintaining O2 saturations in the 90s on AirVo high flow oxygen at 60 L and 85% FiO2. I discussed the assessment and plan of care with my nurse practitioner, Judi Crawford. I attest to the above note as dictated by her.
[2021-03-22] MEDS: PRAMIPEXOLE 1 MG TAB PO SCH (20:30)
[2021-03-22] MEDS: METOPROLOL TARTRATE 25 MG TAB PO SCH (20:30)
[2021-03-22 20:52] LABS: Glucose,Whole Blood 122 mg/dL (75-99)
[2021-03-22] MEDS: INSULIN DETEMIR (LEVEMIR) 100 UNIT/ML SYR SQ SCH (21:19)
[2021-03-23] MEDS: methylPREDNISolone SOD SUCCI 125 MG/2 ML VIAL IV SCH ×4 (01:50→22:38)
[2021-03-23 07:24] LABS: Glucose,Whole Blood 93 mg/dL (75-99)
[2021-03-23 08:18] LABS: ALT 73 U/L (4-49); AST 52 U/L (17-59); African American GFR (CKD) 68 (>60 ml/min/1.73 sqM); Albumin 3.2 g/dL (3.5-5.0); Albumin/Globulin Ratio 1.1; Alkaline Phosphatase 101 U/L (38-126); Anion Gap 8 mmol/L; Blood Urea Nitrogen 65 mg/dL (9-20); Calcium 8.7 mg/dL (8.4-10.2); Carbon Dioxide 33 mmol/L (22-30); Chloride 98 mmol/L (98-107); Globulin 2.8 g/dL; Glucose 88 mg/dL (74-99); Non-African American GFR(CKD) 59 (>60 ml/min/1.73 sqM); Potassium 3.2 mmol/L (3.5-5.1); Sodium 139 mmol/L (137-145); Total Bilirubin 0.7 mg/dL (0.2-1.3)
[2021-03-23 08:34] LABS: Basophils # (A) 0.1 k/uL (0-0.2); Basophils % (A) 0 %; Eosinophils % (A) 0 %; HCT 44.1 % (39.0-53.0); HGB 14.4 gm/dL (13.0-17.5); Hypochromasia Slight; Lymphocytes # (A) 0.1 k/uL (1.0-4.8); Lymphocytes % (A) 0 %; MCH 33.2 pg (25.0-35.0); MCHC 32.6 g/dL (31.0-37.0); MCV 101.8 fL (80.0-100.0); Macrocytosis Slight; Mean Platelet Volume 10.8; Monocytes # (A) 0.9 k/uL (0-1.0); Monocytes % (A) 3 %; Neutrophils # (A) 24.8 k/uL (1.3-7.7); Neutrophils % (A) 96 %; Platelet Count 154 k/uL (150-450); RBC 4.33 m/uL (4.30-5.90); RDW 15.2 % (11.5-15.5)
[2021-03-23] MEDS: INSULIN ASPART (NovoLOG) 100 UNIT/ML VIAL SQ SCH ×8 (08:57→22:37)
[2021-03-23] MEDS: FUROSEMIDE 10 MG/ML 4 ML VIAL IV SCH ×2 (09:05→22:39)
[2021-03-23] MEDS: ENOXAPARIN 40 MG/0.4 ML SYRINGE SQ SCH (09:05)
[2021-03-23] MEDS: FAMOTIDINE 20 MG TAB PO SCH (09:06)
[2021-03-23] MEDS: ASPIRIN 81 MG PO SCH (09:06)
[2021-03-23] MEDS: TAMSULOSIN 0.4 MG CAP.ER.24H PO SCH (09:06)
[2021-03-23] MEDS: allopurinoL 100 MG TAB PO SCH (09:06)
[2021-03-23] MEDS: MAGNESIUM OXIDE 400 MG TAB PO SCH (09:06)
[2021-03-23] MEDS: ASCORBIC ACID 500 MG TAB PO SCH ×2 (09:06→22:39)
[2021-03-23] MEDS: ZINC SULFATE 220 MG CAP PO SCH (09:06)
[2021-03-23] MEDS: METOPROLOL TARTRATE 50 MG TAB PO SCH (09:06)
[2021-03-23] MEDS: QUEtiapine 25 MG TAB PO SCH ×2 (09:07→22:39)
[2021-03-23] MEDS: CHOLECALCIFEROL 125 MCG (5000 IU) TABLET PO SCH (09:07)
[2021-03-23] MEDS: ISOSORBIDE MONONITRATE ER 30 MG TAB.ER.24H PO SCH (09:07)
[2021-03-23] MEDS: COLCHICINE 0.6 MG EACH PO SCH (09:08)
[2021-03-23] MEDS: BARICITINIB 2 MG TABLET PO SCH (09:08)
[2021-03-23] MEDS: SYMBICORT 160-4.5 MCG INHALER INHALATION SCH ×2 (09:36→21:28)
[2021-03-23] MEDS: ALBUTEROL HFA INHALER INHALATION SCH ×4 (09:36→21:28)
--- NOTE | 2021-03-23 11:15 | P.PN ---
Subjective Progress Note Date: 03/23/21 Principal diagnosis: This is a 71-year-old male with acute kidney injury, chronic kidney disease, COVID pneumonia and congestive heart failure. He is on Lasix. Subjectively he feels well is currently on oxygen via nasal cannula. Good appetite no nausea vomiting. No fever chills. Vital signs are stable urine output is documented at 15 50 mL creatinine down to 1.2 from 1.4 yesterday He does use oxygen at home, He is also known with coronary artery disease, type 2 diabetes, BPH, history of DVT, sleep apnea. Objective - Vital Signs Vital signs: Vital Signs Temp 98.0 F 03/23/21 10:06 Pulse 78 03/23/21 10:30 Resp 19 03/23/21 10:30 BP 138/65 03/23/21 10:06 Pulse Ox 95 03/23/21 10:06 Intake & Output 03/22/21 03/23/21 03/23/21 18:59 06:59 18:59 Intake Total 708 300 Output Total 600 950 Balance 108 -650 Weight 97.9 kg Intake: Oral 708 300 Output: Urine 600 950 Other: Voiding Method Urinal Urinal Urinal # Bowel Movements 1 On exam currently awake alert oriented Patient was not examined but was this seen from the door occurred the hand awake. He says he does have edema his breathing is better he is currently on o xygen via an nonrebreather - Labs CBC & Chem 7: 03/23/21 07:32 03/23/21 07:32 Labs: Abnormal Lab Results - Last 24 Hours (Table) 03/22/21 03/22/21 03/22/21 Range/Units 06:45 11:41 16:33 WBC 18.62 H (4.50-10.00) X 10*3/uL RBC 4.27 L (4.40-5.60) X 10*6/uL MCV 100.2 H (80.0-97.0) fL MCH 32.1 H (27.0-32.0) pg RDW 14.8 H (11.5-14.5) % Plt Count 133 L (140-440) X 10*3/uL MPV 13.8 H (9.5-12.2) fL Immature Gran # 0.18 H (0.00-0.04) X 10*3/uL Neutrophils # 17.73 H (1.80-7.70) X 10*3/uL Lymphocytes # 0.26 L (0.90-5.00) X 10*3/uL Eosinophils # 0 L (0.04-0.35) X 10*3/uL Potassium (3.5-5.1) mmol/L Carbon Dioxide (22-30) mmol/L BUN (9-20) mg/dL POC Glucose (mg/dL) 182 H 140 H (75-99) mg/dL ALT (4-49) U/L Total Protein (6.3-8.2) g/dL Albumin (3.5-5.0) g/dL 03/22/21 03/23/21 03/23/21 Range/Units 20:44 07:32 07:32 WBC 26.0 H (4.50-10.00) X 10*3/uL RBC (4.40-5.60) X 10*6/uL MCV 101.8 H (80.0-97.0) fL MCH (27.0-32.0) pg RDW (11.5-14.5) % Plt Count (140-440) X 10*3/uL MPV (9.5-12.2) fL Immature Gran # (0.00-0.04) X 10*3/uL Neutrophils # 24.8 H (1.80-7.70) X 10*3/uL Lymphocytes # 0.1 L (0.90-5.00) X 10*3/uL Eosinophils # (0.04-0.35) X 10*3/uL Potassium 3.2 L (3.5-5.1) mmol/L Carbon Dioxide 33 H (22-30) mmol/L BUN 65 H (9-20) mg/dL POC Glucose (mg/dL) 122 H (75-99) mg/dL ALT 73 H (4-49) U/L Total Protein 6.0 L (6.3-8.2) g/dL Albumin 3.2 L (3.5-5.0) g/dL Assessment and Plan Assessment: Impression 1. Acute kidney injury from: With pneumonia and congestive heart failure, creatinine improved to 1.2 with good urine output on Lasix 40 twice a day 2. Chronic kidney disease, stage III, previous creatinine 1.3 mg to 1.1 mg with nephrosclerosis and possibly diabetic nephropathy trace proteinuria 3. COPD sleep apnea congestive heart failure 4. History of BPH 5. Hypokalemia scan to diuretics, potassium today is 3.2. Recommendation 1. Continue Lasix 40 every 12 IV 2. Replace potassium with a total of 80 mEq by mouth 3. Monitor labs intake and output and blood pressure 4. Check serum magnesium
[2021-03-23 11:22] LABS: Glucose,Whole Blood 209 mg/dL (75-99)
[2021-03-23] MEDS: POTASSIUM CHLORIDE ER 20 MEQ TAB.ER PO SCH ×2 (12:45→14:30)
[2021-03-23] MEDS: PANTOPRAZOLE 40 MG TABLET PO SCH (14:41)
--- NOTE | 2021-03-23 15:22 | P.PN ---
Subjective Progress Note Date: 03/23/21 Principal diagnosis: CoVID pneumonia This 71-year-old white male patient who follows with Dr. Torres in the pulmonary clinic for his history of advanced COPD on home oxygen patient usually wears 4 L on a regular basis, he is prednisone dependent and usually takes 20 mg on a regular basis, coronary artery disease, diabetes mellitus type 2, previous history of CVA, hypertension, hyperlipidemia, previous history of pneumonia, chronic kidney disease unspecified, sleep apnea, BPH, osteoarthritis. Patient presented to the emergency department on 03/12/2021 for evaluation of worsening dyspnea. Patient had a fever at home up to 101.7F. He saw Dr. Torres on Friday03/09/2021 and his antibiotics were changed. Patient was also given a prednisone taper and was placed on Levaquin. Has chronic swelling in his lower extremities which is unchanged. Of note patient was tested for COVID-19 on 03/02/2021 and was found to be negative. During this visit to the ED he tested positive on 03/12/2021. Patient has been vaccinated against COVID-19. His chest x-ray shows increasing diffuse interstitial opacity, with the possibility of fluid overload/CHF, interstitial pneumonitis, atypical pneumonia or chronic pneumonia. His blood work on admission has been reviewed showing white blood cell count of 12.7, hemoglobin of 12.3, his INR 0.9, sodium is 136, potassium is 4.2, chloride is 97, CO2 31, BUN is 55, creatinine is 1.28, troponin is less than 0.012, proBNP is within normal limits at 206. Patient has been started on Decadron 6 blood gram daily which we will increase to twice daily, he was placed on albuterol and Symbicort, he is on subcutaneous heparin 5000 units every 12 hours, and the patient is within the window for Remdesivir which she will be started on today. On 03/14/2021 patient seen in follow-up on medical surgical floor, he is breathing comfortably, she is resting in bed, no worsening dyspnea, he is currently on 12 L of oxygen his pulse ox is 92%, does have mildly congested cough, no chest discomfort, blood pressure is stable, his been afebrile. Lower extremity Dopplers showed no evidence of DVT. Today's labs have been reviewed, his white count is 16.9, hemoglobin is 12.8, sodium is 146, the rest of electrolytes are within normal limits, BUN is 40, creatinine is 1.2. LDH was 526, not significantly elevated, CRP was 13.6, follow-up in addition he remains on prophylactic dose Lovenox, he is on Decadron 6 mg twice daily. On 03/15/2021 patient seen in follow-up on medical surgical floor. He is awake and alert, he is currently on 10 L of oxygen, down from 12 L on yesterday's exam, he states his breathing is improving, his coughing less, his been afebrile, hemodynamically stable, no chest discomfort. His been ambulating about the room, tolerates activity well. Today's chest x-ray showing mild cardiomegaly, and stable diffuse interstitial changes and patchy peripheral infiltrates. Today's labs have been reviewed, his white blood cell count is 21.2, hemoglobin is 13.3, his d-dimer is improved and is down to 1.23, sodium is 146, the rest of the electrolytes are within normal limits, BUN is 44, creatinine is 1.3. His LDH is 625, slightly increased from most previous value of 526, CRP is improved and is down to 4.7 on today's labs, pro-calcitonin level is negative 2 at 0.16, and 0.19. Blood cultures have shown no growth. He currently continues on Decadron 6 mg twice daily, he is on Lovenox 40 mg once daily, he is on IV Lasix 40 mg every 12 hours, and we started him on the Remdesivir yesterday and today is day 3 of treatment. On 03/16/2021 patient seen in follow-up on medical surgical floor, he is awake and alert, in no acute distress, he states his breathing is about the same, not any worse, however his oxygen demand has increased to 15 L, his pulse ox is 88- 90%, his been afebrile, blood pressures been stable, denies any chest discomfort, no hemoptysis, lung sounds reveal scattered crackles mostly at bilateral bases, his chest x-ray from yesterday showed mild cardiomegaly, diffuse interstitial changes. Patient has been on IV Lasix 40 mg twice daily unfortunately has not fluid balance is very difficult to estimate, his lower extremity edema appears to be slightly better. He continues on Remdesivir, and today is day 4 of treatment. Today's labs have been reviewed, his white count is improving and is down to 16.5, hemoglobin is 12.4, his d-dimer was improving on yesterday's labs, and was down to 1.23, patient remains on prophylactic dose Lovenox 40 mg daily, BUN is 47, creatinine is 1.3, potassium is 3.8, sodium is 141, pro-calcitonin level was negative 2. Blood cultures were negative 2. Patient seen today 03/17/2021 in follow-up on the regular medical floor. He is currently sitting up the bedside. Awake and alert in no acute distress. He denies any worsening shortness of breath, cough or can just in. He is having some confusion at nighttime and pulling at his oxygen. He is currently on 15 L high flow nasal cannula with O2 saturations in the low 90s. Not requiring a nonrebreather mask at this point. Sodium 139. Potassium 4.3. Creatinine 1.20. Glucose 200. He is continued on bronchodilators, Lovenox, Decadron, vitamin supplements. Day #5 of Remdesivir. The patient is seen today 03/21/2021 in follow-up on the regular medical floor. He sitting up in a chair at the bedside. Awake and alert in no acute distress. Breathing a bit easier today. States no worse. He is still on AirVo at 55 L and 85% FiO2 with O2 saturations 87-92%. He is continued on Baricitinib, bronchodilators, Lovenox, IV Solu-Medrol and vitamin supplement. White count 16.4. Hemoglobin 13.9. Platelet count 145,000. Sodium 141 potassium 3.4. Creatinine 1.4. Blood glucose 201. AST 35. ALT 68. The patient seen today 03/22/2021 in follow-up on the regular medical floor. He is currently sitting up in a chair at the bedside. Awake and alert in mild respiratory distress. He is currently on AirVo high flow oxygen at 60 L and 85% FiO2 and occasionally 100% nonrebreather mask. He is continued on Baricitinib, Lovenox, IV Solu-Medrol, vitamin supplements. Remains on Symbicort, albuterol. Remains on IV diuretics. White count 18.6. Hemoglobin 13.7. Platelets 133. Sodium 143. Potassium 3.6. Creatinine 1.4. Glucose 120. AST 42. ALT 74. LDH 597. C-reactive protein less than 0.3. The patient is seen today 03/23/2021 in follow-up on the regular medical floor. He is awake and alert in no acute distress. Sitting up in a chair at the bedside. Feeling a bit better today compared to yesterday. Still with a loose nonproductive cough. No fever or chills. He is still requiring AirVo high flow oxygen at 55 L and 85% FiO2. White count 26.0. Hemoglobin 14.4. Lymphocytes 0. Absolute lymphocytes are 0.1. Sodium 139. Potassium 3.2. Creatinine 1.22. Glucose 209. AST 52. ALT 73. He is continued on Lovenox, IV Solu-Medrol, vitamin supplements. Remains on Symbicort, albuterol. Remains on IV diuretics. The Baricitinib will be placed on hold for now due to the low ALC. Objective - Vital Signs Vital signs: Vital Signs Temp 97.9 F 03/23/21 14:50 Pulse 81 03/23/21 14:50 Resp 18 03/23/21 14:50 BP 135/69 03/23/21 14:50 Pulse Ox 91 L 03/23/21 14:50 Intake & Output 03/22/21 03/23/21 03/23/21 18:59 06:59 18:59 Intake Total 708 300 Output Total 610 761 0523 Balance 108 -650 -1275 Weight 97.9 kg Intake: Oral 708 300 Output: Urine 850 942 7142 Other: Voiding Method Urinal Urinal Urinal # Bowel Movements 1 - Exam GENERAL EXAM: Alert, pleasant, 71-year-old male patient, up in a chair at the bedside on AirVo high flow oxygen at 55 L and 85% FiO2, fairly comfortable in no apparent distress. HEAD: Normocephalic/atraumatic. EYES: Normal reaction of pupils, equal size. Conjunctiva pink, sclera white. NOSE: Clear with pink turbinates. THROAT: No erythema or exudates. NECK: No masses, no JVD, no thyroid enlargement, no adenopathy. CHEST: No chest wall deformity. Symmetrical expansion. LUNGS: Equal air entry with diffuse crackles, and a few rhonchi CVS: Regular rate and rhythm, normal S1 and S2, no gallops, no murmurs, no rubs ABDOMEN: Soft, nontender. No hepatosplenomegaly, normal bowel sounds, no guarding or rigidity. EXTREMITIES: No clubbing, plus lower extremity edema with chronic venous stasis, no cyanosis, 2+ pulses and upper and lower extremities. MUSCULOSKELETAL: Muscle strength and tone normal. SPINE: No scoliosis or deformity SKIN: No rashes CENTRAL NERVOUS SYSTEM: No focal deficits, tone is normal in all 4 extremities. PSYCHIATRIC: Alert and oriented -3. Appropriate affect. Intact judgment and insight. - Labs CBC & Chem 7: 03/23/21 07:32 03/23/21 07:32 Labs: Abnormal Lab Results - Last 24 Hours (Table) 03/22/21 03/22/21 03/23/21 Range/Units 16:33 20:44 07:32 WBC 26.0 H (3.8-10.6) k/uL MCV 101.8 H (80.0-100.0) fL Neutrophils # 24.8 H (1.3-7.7) k/uL Lymphocytes # 0.1 L (1.0-4.8) k/uL Potassium (3.5-5.1) mmol/L Carbon Dioxide (22-30) mmol/L BUN (9-20) mg/dL POC Glucose (mg/dL) 140 H 122 H (75-99) mg/dL Magnesium (1.6-2.3) mg/dL ALT (4-49) U/L Total Protein (6.3-8.2) g/dL Albumin (3.5-5.0) g/dL 03/23/21 03/23/21 03/23/21 Range/Units 07:32 07:39 11:21 WBC (3.8-10.6) k/uL MCV (80.0-100.0) fL Neutrophils # (1.3-7.7) k/uL Lymphocytes # (1.0-4.8) k/uL Potassium 3.2 L (3.5-5.1) mmol/L Carbon Dioxide 33 H (22-30) mmol/L BUN 65 H (9-20) mg/dL POC Glucose (mg/dL) 209 H (75-99) mg/dL Magnesium 2.4 H (1.6-2.3) mg/dL ALT 73 H (4-49) U/L Total Protein 6.0 L (6.3-8.2) g/dL Albumin 3.2 L (3.5-5.0) g/dL Assessment and Plan Assessment: 1 Acute on chronic hypoxic respiratory failure related to acute COVID-19 related pneumonia, patient tested positive on 03/12/2021. Patient is vaccinated against COVID-19. His symptoms have worsened over last week, patient completed Remdesivir. On 03/18/2021 the patient's oxygenation worsened and he was placed on AirVo high flow oxygen and initiated on Baricitinib. On 03/23/2021 the patient's ALC was 0.1 and the Baricitinib is placed on hold for now. 2 Acute exacerbation of COPD 3 Chronic COPD, advanced, with a baseline FEV1 of 1.71 L or FEV1 of 58% usually on home oxygen at 4 L 4 Recent 2 hospitalizations for acute exacerbation of COPD in early February, during which patient tested negative for COVID-19, urinalysis was also negative, influenza A and B were negative 5 Diabetes mellitus type 2 6 Hypertension, 7 Hyperlipidemia 8 History of coronary artery disease with previous stenting 9 History of CHF, unspecified 10 History of CVA/TIA 11 Osteoarthritis 12 Chronic knee disease, unspecified 13 Chronic venous insufficiency 14 Chronic back pain 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 Lungs sounds crackles in the bilateral bases. Maintaining O2 saturations in the 90s on AirVo high flow oxygen at 60 L and 85% FiO2. I d iscussed the assessment and plan of care with my nurse practitioner, Judi Carwford. I attest to the above note as dictated by her.
[2021-03-23 16:51] LABS: Glucose,Whole Blood 223 mg/dL (75-99)
[2021-03-23 21:00] LABS: Glucose,Whole Blood 173 mg/dL (75-99)
[2021-03-23] MEDS: METOPROLOL TARTRATE 25 MG TAB PO SCH (22:39)
[2021-03-23] MEDS: INSULIN DETEMIR (LEVEMIR) 100 UNIT/ML SYR SQ SCH (22:39)
[2021-03-23] MEDS: PRAMIPEXOLE 1 MG TAB PO SCH (22:40)
[2021-03-24] MEDS: methylPREDNISolone SOD SUCCI 125 MG/2 ML VIAL IV SCH ×4 (05:37→21:17)
[2021-03-24 06:54] LABS: Glucose,Whole Blood 94 mg/dL (75-99)
--- NOTE | 2021-03-24 07:10 | XR ---
EXAMINATION TYPE: XR chest 1V portable DATE OF EXAM: 03/24/2021 6:51 AM COMPARISON:Chest radiograph from 03/18/2021 CLINICAL INDICATION:Male, 71 years old with history of COVID-19 pneumonia; TECHNIQUE: Frontal view of the chest. FINDINGS: Lungs/Pleura: Multifocal airspace opacities. No evidence of pneumothorax small left pleural effusion. Pulmonary vascularity: Unremarkable. Heart/mediastinum: Cardiomediastinal silhouette is enlarged and stable. Musculoskeletal: No acute osseous pathology. Right shoulder arthroplasty changes. IMPRESSION: Similar multifocal airspace opacities. Small left pleural effusion.
[2021-03-24 07:19] LABS: Basophils % (A) 0 %; Eosinophils % (A) 0 %; HCT 42.9 % (39.0-53.0); Lymphocytes # (A) 0.1 k/uL (1.0-4.8); Lymphocytes % (A) 1 %; MCH 33.1 pg (25.0-35.0); MCHC 32.6 g/dL (31.0-37.0); MCV 101.3 fL (80.0-100.0); Macrocytosis Slight; Mean Platelet Volume 10.6; Monocytes # (A) 0.8 k/uL (0-1.0); Monocytes % (A) 4 %; Neutrophils # (A) 21.1 k/uL (1.3-7.7); Neutrophils % (A) 95 %; Platelet Count 152 k/uL (150-450); RBC 4.23 m/uL (4.30-5.90); RDW 15.3 % (11.5-15.5); WBC 22.1 k/uL (3.8-10.6)
[2021-03-24 07:27] LABS: Potassium 3.3 mmol/L (3.5-5.1)
[2021-03-24 07:28] LABS: ALT 73 U/L (4-49); AST 49 U/L (17-59); African American GFR (CKD) 68 (>60 ml/min/1.73 sqM); Albumin 3.1 g/dL (3.5-5.0); Albumin/Globulin Ratio 1.1; Alkaline Phosphatase 96 U/L (38-126); Anion Gap 7 mmol/L; Blood Urea Nitrogen 65 mg/dL (9-20); Calcium 8.5 mg/dL (8.4-10.2); Carbon Dioxide 34 mmol/L (22-30); Chloride 97 mmol/L (98-107); Globulin 2.7 g/dL; Glucose 87 mg/dL (74-99); Non-African American GFR(CKD) 59 (>60 ml/min/1.73 sqM); Sodium 138 mmol/L (137-145); Total Bilirubin 0.8 mg/dL (0.2-1.3); Total Protein 5.8 g/dL (6.3-8.2)
[2021-03-24] MEDS: INSULIN ASPART (NovoLOG) 100 UNIT/ML VIAL SQ SCH ×8 (07:33→21:16)
[2021-03-24] MEDS: FUROSEMIDE 10 MG/ML 4 ML VIAL IV SCH ×2 (07:44→21:17)
[2021-03-24] MEDS: ENOXAPARIN 40 MG/0.4 ML SYRINGE SQ SCH (07:44)
[2021-03-24] MEDS: TAMSULOSIN 0.4 MG CAP.ER.24H PO SCH (07:45)
[2021-03-24] MEDS: MAGNESIUM OXIDE 400 MG TAB PO SCH (07:45)
[2021-03-24] MEDS: FAMOTIDINE 20 MG TAB PO SCH (07:45)
[2021-03-24] MEDS: METOPROLOL TARTRATE 50 MG TAB PO SCH (07:45)
[2021-03-24] MEDS: ASCORBIC ACID 500 MG TAB PO SCH ×2 (07:45→21:17)
[2021-03-24] MEDS: PANTOPRAZOLE 40 MG TABLET PO SCH (07:45)
[2021-03-24] MEDS: ASPIRIN 81 MG PO SCH (07:45)
[2021-03-24] MEDS: ISOSORBIDE MONONITRATE ER 30 MG TAB.ER.24H PO SCH (07:45)
[2021-03-24] MEDS: QUEtiapine 25 MG TAB PO SCH ×2 (07:45→21:18)
[2021-03-24] MEDS: allopurinoL 100 MG TAB PO SCH (07:45)
[2021-03-24] MEDS: ZINC SULFATE 220 MG CAP PO SCH (07:45)
[2021-03-24] MEDS: CHOLECALCIFEROL 125 MCG (5000 IU) TABLET PO SCH (07:45)
[2021-03-24] MEDS: COLCHICINE 0.6 MG EACH PO SCH (07:45)
[2021-03-24] MEDS: SYMBICORT 160-4.5 MCG INHALER INHALATION SCH ×2 (08:39→20:11)
[2021-03-24] MEDS: ALBUTEROL HFA INHALER INHALATION SCH ×4 (08:39→20:13)
[2021-03-24] MEDS ORDERED: POTASSIUM CHLORIDE ER 20 MEQ TAB.ER PO STA (11:01)
--- NOTE | 2021-03-24 11:36 | P.PN ---
Subjective Patient is seen in follow-up for chronic kidney disease. Renal function stable. On IV Lasix. Edema improving. Currently on airvo. Denies chest pain or shortness of breath. Vital signs are stable. General: The patient appeared well nourished and normally developed. HEENT: Head exam is unremarkable. LUNGS: Breath sounds decreased. HEART: Rate and Rhythm are regular. ABDOMEN: Soft, obese. EXTREMITITES: Lower except is wrapped. 1+ edema. Objective - Vital Signs Vital signs: Vital Signs Temp 98.9 F 03/24/21 09:16 Pulse 70 03/24/21 09:16 Resp 44 H 03/24/21 09:16 BP 130/70 03/24/21 09:16 Pulse Ox 91 L 03/24/21 09:16 Intake & Output 03/23/21 03/24/21 03/24/21 18:59 06:59 18:59 Output Total 1275 Balance -1275 Output: Urine 1275 Other: Voiding Method Urinal Urinal Urinal - Labs CBC & Chem 7: 03/24/21 06:50 03/24/21 06:50 Labs: Abnormal Lab Results - Last 24 Hours (Table) 03/23/21 03/23/21 03/23/21 Range/Units 07:39 16:50 20:59 WBC (3.8-10.6) k/uL RBC (4.30-5.90) m/uL MCV (80.0-100.0) fL Neutrophils # (1.3-7.7) k/uL Lymphocytes # (1.0-4.8) k/uL Potassium (3.5-5.1) mmol/L Chloride (98-107) mmol/L Carbon Dioxide (22-30) mmol/L BUN (9-20) mg/dL POC Glucose (mg/dL) 223 H 173 H (75-99) mg/dL Magnesium 2.4 H (1.6-2.3) mg/dL ALT (4-49) U/L Total Protein (6.3-8.2) g/dL Albumin (3.5-5.0) g/dL 03/24/21 03/24/21 Range/Units 06:50 06:50 WBC 22.1 H (3.8-10.6) k/uL RBC 4.23 L (4.30-5.90) m/uL MCV 101.3 H (80.0-100.0) fL Neutrophils # 21.1 H (1.3-7.7) k/uL Lymphocytes # 0.1 L (1.0-4.8) k/uL Potassium 3.3 L (3.5-5.1) mmol/L Chloride 97 L (98-107) mmol/L Carbon Dioxide 34 H (22-30) mmol/L BUN 65 H (9-20) mg/dL POC Glucose (mg/dL) (75-99) mg/dL Magnesium (1.6-2.3) mg/dL ALT 73 H (4-49) U/L Total Protein 5.8 L (6.3-8.2) g/dL Albumin 3.1 L (3.5-5.0) g/dL Assessment and Plan Plan: Assessment: 1. Chronic kidney disease stage III with baseline creatinine 1.2-1.3 secondary to diabetic kidney disease and cardiorenal syndrome. Creatinine stable at 1.23 today. UA benign. 2. Acute on chronic diastolic CHF. 3. Volume overload. 4. Hypocalcemia from diuresis. 5. COVID-19 pneumonia. Plan: Maintain IV Lasix. Replace potassium. Avoid nephrotoxins. Continue to monitor renal function and urine output.
[2021-03-24 11:50] LABS: Glucose,Whole Blood 308 mg/dL (75-99)
--- NOTE | 2021-03-24 12:40 | P.PN ---
Subjective Progress Note Date: 03/24/21 Principal diagnosis: CoVID pneumonia This 71-year-old white male patient who follows with Dr. Torres in the pulmonary clinic for his history of advanced COPD on home oxygen patient usually wears 4 L on a regular basis, he is prednisone dependent and usually takes 20 mg on a regular basis, coronary artery disease, diabetes mellitus type 2, previous history of CVA, hypertension, hyperlipidemia, previous history of pneumonia, chronic kidney disease unspecified, sleep apnea, BPH, osteoarthritis. Patient presented to the emergency department on 03/12/2021 for evaluation of worsening dyspnea. Patient had a fever at home up to 101.7F. He saw Dr. Torres on Friday03/09/2021 and his antibiotics were changed. Patient was also given a prednisone taper and was placed on Levaquin. Has chronic swelling in his lower extremities which is unchanged. Of note patient was tested for COVID-19 on 03/02/2021 and was found to be negative. During this visit to the ED he tested positive on 03/12/2021. Patient has been vaccinated against COVID-19. His chest x-ray shows increasing diffuse interstitial opacity, with the possibility of fluid overload/CHF, interstitial pneumonitis, atypical pneumonia or chronic pneumonia. His blood work on admission has been reviewed showing white blood cell count of 12.7, hemoglobin of 12.3, his INR 0.9, sodium is 136, potassium is 4.2, chloride is 97, CO2 31, BUN is 55, creatinine is 1.28, troponin is less than 0.012, proBNP is within normal limits at 206. Patient has been started on Decadron 6 blood gram daily which we will increase to twice daily, he was placed on albuterol and Symbicort, he is on subcutaneous heparin 5000 units every 12 hours, and the patient is within the window for Remdesivir which she will be started on today. On 03/14/2021 patient seen in follow-up on medical surgical floor, he is breathing comfortably, she is resting in bed, no worsening dyspnea, he is currently on 12 L of oxygen his pulse ox is 92%, does have mildly congested cough, no chest discomfort, blood pressure is stable, his been afebrile. Lower extremity Dopplers showed no evidence of DVT. Today's labs have been reviewed, his white count is 16.9, hemoglobin is 12.8, sodium is 146, the rest of electrolytes are within normal limits, BUN is 40, creatinine is 1.2. LDH was 526, not significantly elevated, CRP was 13.6, follow-up in addition he remains on prophylactic dose Lovenox, he is on Decadron 6 mg twice daily. On 03/15/2021 patient seen in follow-up on medical surgical floor. He is awake and alert, he is currently on 10 L of oxygen, down from 12 L on yesterday's exam, he states his breathing is improving, his coughing less, his been afebrile, hemodynamically stable, no chest discomfort. His been ambulating about the room, tolerates activity well. Today's chest x-ray showing mild cardiomegaly, and stable diffuse interstitial changes and patchy peripheral infiltrates. Today's labs have been reviewed, his white blood cell count is 21.2, hemoglobin is 13.3, his d-dimer is improved and is down to 1.23, sodium is 146, the rest of the electrolytes are within normal limits, BUN is 44, creatinine is 1.3. His LDH is 625, slightly increased from most previous value of 526, CRP is improved and is down to 4.7 on today's labs, pro-calcitonin level is negative 2 at 0.16, and 0.19. Blood cultures have shown no growth. He currently continues on Decadron 6 mg twice daily, he is on Lovenox 40 mg once daily, he is on IV Lasix 40 mg every 12 hours, and we started him on the Remdesivir yesterday and today is day 3 of treatment. On 03/16/2021 patient seen in follow-up on medical surgical floor, he is awake and alert, in no acute distress, he states his breathing is about the same, not any worse, however his oxygen demand has increased to 15 L, his pulse ox is 88- 90%, his been afebrile, blood pressures been stable, denies any chest discomfort, no hemoptysis, lung sounds reveal scattered crackles mostly at bilateral bases, his chest x-ray from yesterday showed mild cardiomegaly, diffuse interstitial changes. Patient has been on IV Lasix 40 mg twice daily unfortunately has not fluid balance is very difficult to estimate, his lower extremity edema appears to be slightly better. He continues on Remdesivir, and today is day 4 of treatment. Today's labs have been reviewed, his white count is improving and is down to 16.5, hemoglobin is 12.4, his d-dimer was improving on yesterday's labs, and was down to 1.23, patient remains on prophylactic dose Lovenox 40 mg daily, BUN is 47, creatinine is 1.3, potassium is 3.8, sodium is 141, pro-calcitonin level was negative 2. Blood cultures were negative 2. Patient seen today 03/17/2021 in follow-up on the regular medical floor. He is currently sitting up the bedside. Awake and alert in no acute distress. He denies any worsening shortness of breath, cough or can just in. He is having some confusion at nighttime and pulling at his oxygen. He is currently on 15 L high flow nasal cannula with O2 saturations in the low 90s. Not requiring a nonrebreather mask at this point. Sodium 139. Potassium 4.3. Creatinine 1.20. Glucose 200. He is continued on bronchodilators, Lovenox, Decadron, vitamin supplements. Day #5 of Remdesivir. The patient is seen today 03/21/2021 in follow-up on the regular medical floor. He sitting up in a chair at the bedside. Awake and alert in no acute distress. Breathing a bit easier today. States no worse. He is still on AirVo at 55 L and 85% FiO2 with O2 saturations 87-92%. He is continued on Baricitinib, bronchodilators, Lovenox, IV Solu-Medrol and vitamin supplement. White count 16.4. Hemoglobin 13.9. Platelet count 145,000. Sodium 141 potassium 3.4. Creatinine 1.4. Blood glucose 201. AST 35. ALT 68. The patient seen today 03/22/2021 in follow-up on the regular medical floor. He is currently sitting up in a chair at the bedside. Awake and alert in mild respiratory distress. He is currently on AirVo high flow oxygen at 60 L and 85% FiO2 and occasionally 100% nonrebreather mask. He is continued on Baricitinib, Lovenox, IV Solu-Medrol, vitamin supplements. Remains on Symbicort, albuterol. Remains on IV diuretics. White count 18.6. Hemoglobin 13.7. Platelets 133. Sodium 143. Potassium 3.6. Creatinine 1.4. Glucose 120. AST 42. ALT 74. LDH 597. C-reactive protein less than 0.3. The patient is seen today 03/23/2021 in follow-up on the regular medical floor. He is awake and alert in no acute distress. Sitting up in a chair at the bedside. Feeling a bit better today compared to yesterday. Still with a loose nonproductive cough. No fever or chills. He is still requiring AirVo high flow oxygen at 55 L and 85% FiO2. White count 26.0. Hemoglobin 14.4. Lymphocytes 0. Absolute lymphocytes are 0.1. Sodium 139. Potassium 3.2. Creatinine 1.22. Glucose 209. AST 52. ALT 73. He is continued on Lovenox, IV Solu-Medrol, vitamin supplements. Remains on Symbicort, albuterol. Remains on IV diuretics. The Baricitinib will be placed on hold for now due to the low ALC. The patient is seen today on 03/24/2021 in follow-up on the regular medical floor. Currently sitting up in a chair at the bedside. Awake and alert in no acute distress. He's been slow to progress. He is feeling a bit stronger today. Less short of breath. He is still requiring AirVo high flow oxygen at 55 L and 80% FiO2. He has not been requiring the nonrebreather mask in the past 24 hours. His appetite is good. He is continued on IV Solu-Medrol, Lovenox, vitamin supplements. Continued on Symbicort and albuterol. Baricitinib on hold due to low ALC. White count 22.1. Hemoglobin 14.0. Lymphocytes 0.1. Sodium 138. Potassium 3.3. Creatinine 1.23. AST 49. ALT 73. Glucose 94. Objective - Vital Signs Vital signs: Vital Signs Temp 98.9 F 03/24/21 09:16 Pulse 70 03/24/21 09:16 Resp 44 H 03/24/21 09:16 BP 130/70 03/24/21 09:16 Pulse Ox 91 L 03/24/21 09:16 Intake & Output 03/23/21 03/24/21 03/24/21 18:59 06:59 18:59 Output Total 1275 Balance -1275 Output: Urine 1275 Other: Voiding Method Urinal Urinal Urinal - Exam GENERAL EXAM: Alert, pleasant, 71-year-old male patient, up in a chair at the bedside on AirVo high flow oxygen at 55 L and 80% FiO2, fairly comfortable in no apparent distress. HEAD: Normocephalic/atraumatic. EYES: Normal reaction of pupils, equal size. Conjunctiva pink, sclera white. NOSE: Clear with pink turbinates. THROAT: No erythema or exudates. NECK: No masses, no JVD, no thyroid enlargement, no adenopathy. CHEST: No chest wall deformity. Symmetrical expansion. LUNGS: Equal air entry with diffuse crackles, and a few rhonchi CVS: Regular rate and rhythm, normal S1 and S2, no gallops, no murmurs, no rubs ABDOMEN: Soft, nontender. No hepatosplenomegaly, normal bowel sounds, no guarding or rigidity. EXTREMITIES: No clubbing, plus lower extremity edema with chronic venous stasis, no cyanosis, 2+ pulses and upper and lower extremities. MUSCULOSKELETAL: Muscle strength and tone normal. SPINE: No scoliosis or deformity SKIN: No rashes CENTRAL NERVOUS SYSTEM: No focal deficits, tone is normal in all 4 extremities. PSYCHIATRIC: Alert and oriented -3. Appropriate affect. Intact judgment and insight. - Labs CBC & Chem 7: 03/24/21 06:50 03/24/21 06:50 Labs: Abnormal Lab Results - Last 24 Hours (Table) 03/23/21 03/23/21 03/24/21 Range/Units 16:50 20:59 06:50 WBC 22.1 H (3.8-10.6) k/uL RBC 4.23 L (4.30-5.90) m/uL MCV 101.3 H (80.0-100.0) fL Neutrophils # 21.1 H (1.3-7.7) k/uL Lymphocytes # 0.1 L (1.0-4.8) k/uL Potassium (3.5-5.1) mmol/L Chloride (98-107) mmol/L Carbon Dioxide (22-30) mmol/L BUN (9-20) mg/dL POC Glucose (mg/dL) 223 H 173 H (75-99) mg/dL ALT (4-49) U/L Total Protein (6.3-8.2) g/dL Albumin (3.5-5.0) g/dL 03/24/21 03/24/21 Range/Units 06:50 11:36 WBC (3.8-10.6) k/uL RBC (4.30-5.90) m/uL MCV (80.0-100.0) fL Neutrophils # (1.3-7.7) k/uL Lymphocytes # (1.0-4.8) k/uL Potassium 3.3 L (3.5-5.1) mmol/L Chloride 97 L (98-107) mmol/L Carbon Dioxide 34 H (22-30) mmol/L BUN 65 H (9-20) mg/dL POC Glucose (mg/dL) 308 H (75-99) mg/dL ALT 73 H (4-49) U/L Total Protein 5.8 L (6.3-8.2) g/dL Albumin 3.1 L (3.5-5.0) g/dL Assessment and Plan Assessment: 1 Acute on chronic hypoxic respiratory failure related to acute COVID-19 related pneumonia, patient tested positive on 03/12/2021. Patient is vaccinated against COVID-19. His symptoms have worsened over last week, patient completed Remdesivir. On 03/18/2021 the patient's oxygenation worsened and he was placed on AirVo high flow oxygen and initiated on Baricitinib. On 03/23/2021 the patient's ALC was 0.1 and the Baricitinib is placed on hold for now. 2 Acute exacerbation of COPD 3 Chronic COPD, advanced, with a baseline FEV1 of 1.71 L or FEV1 of 58% usually on home oxygen at 4 L 4 Recent 2 hospitalizations for acute exacerbation of COPD in early February, during which patient tested negative for COVID-19, urinalysis was also negative, influenza A and B were negative 5 Diabetes mellitus type 2 6 Hypertension, 7 Hyperlipidemia 8 History of coronary artery disease with previous stenting 9 History of CHF, unspecified 10 History of CVA/TIA 11 Osteoarthritis 12 Chronic knee disease, unspecified 13 Chronic venous insufficiency 14 Chronic back pain 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 Lungs sounds crackles in the bilateral bases. Maintaining O2 saturations in the 90s on AirVo high flow oxygen at 60 L and 80% FiO2. I discussed the assessment and plan of care with my nurse practitioner, Judi Crawford. I attest to the above note as dictated by her.
[2021-03-24] MEDS: NYSTATIN 100,000 UNIT/ML SUSP 500,000 UNIT/5 ML CUP PO SCH ×3 (15:29→21:18)
[2021-03-24 16:21] LABS: Glucose,Whole Blood 274 mg/dL (75-99)
[2021-03-24 20:49] LABS: Glucose,Whole Blood 237 mg/dL (75-99)
[2021-03-24] MEDS: METOPROLOL TARTRATE 25 MG TAB PO SCH (21:18)
[2021-03-24] MEDS: PRAMIPEXOLE 1 MG TAB PO SCH (22:44)
[2021-03-24] MEDS: INSULIN DETEMIR (LEVEMIR) 100 UNIT/ML SYR SQ SCH (22:44)
--- NOTE | 2021-03-25 01:25 | P.PN ---
Subjective Progress Note Date: 03/21/21 Principal diagnosis: Acute on chronic hypoxic respiratory failure secondary to COVID-19 pneumonia Patient is a 71-year-old white male with a chronic medical problems a chronic hypoxic respiratory failure uses about 4 L of oxygen at home came in the with complaints of shortness of breath and cough restarted couple days ago was also having fever restarted couple days ago. Patient is found to have COVID-19 patient has multiple other medical problems chronically and patient does have history of COPD possible chronic diastolic dysfunction patient was on IV Lasix in the past. 03/13/2021 Patient evaluated today sitting on the edge of the bed. He is requiring oxygen at 7L HF with a saturation of 91%. Blood pressure 148/76, heart rate 74, temp 98.2. Labs today include WBC of 13.08, hgb 12.3, sodium 143, potassium 4.0, AST 55, ALT 94, LDH 526, CRP 13.60. DD 5.97, doppler negative for bilateral DVT. Pulmonary consultation today who increased decadron to twice a day and started the patient on remdesivir. Patient is also on subcu heparin, zinc, vitamins. 03/14/2021 Patient has been able to ambulate around his room while on oxygen. Vital signs included temperature of 91, heart rate 66 sinus rhythm, respirations 18, blood pressure 139/65 and he is 90% on 12 L high flow nasal cannula. Oxygen saturation has been progressively increasing. Labs today show a white count of 16.99, hemoglobin 12.8, sodium 146, glucose in the 70s, AST 68, ALT 96. Will repeat a chest x-ray in the morning as well as repeat labs and inflammatory markers. He continues on Lovenox, zinc, vitamins, he was started on IV remdesivir from pulmonary services today. Procalcitonin pending. Apparently patient has been refusing ketorolac eyedrops as he states that he is done taking outpatient; discontinued the order. 03/15/2021 Patient says he is feeling better patient the arms and requirements went up yesterday was on 10 L now came down to 8 L patient overall feels better but as per the nursing staff patient has been occasionally getting confused which is not unexpected for for him as he had sundowners in the past and patient is also on stress steroids which can do that. Patient was started on IV Lasix because of increased swelling in bilateral lower extremities patient barely takes one 20 mg of by mouth Lasix at home although it was documented as 20 mg. We'll continue with IV Lasix will monitor I's and O's will continue to wean off his oxygen. 03/16/2021 Patient feels better but his oxygen requirements remain the same patient remains on IV Lasix creatinine is around 1.3 compared to 1.2 on admission will continue to closely monitor his kidney function and the input and output. Patient remains on IV steroids blood sugars are within normal limits leukocytosis improved a bit. 03/17/2021 Patient has occasional confusional episodes during nighttime she is being well managed by Seroquel. The patient is presently on 15 L of oxygen patient swelling in bilateral lower x-ray significantly improved still has some swelling continue with IV Lasix creatinine remained stable at 1.2 serum sodium within normal limits. 03/18/2021 Patient was pretty status is worse today and patient is requiring airvo, patient has significant Swelling in bilateral lower extremities which is a worse compared to yesterday patient is on the Lasix every 12 hourly which will be changed to create hourly and we'll also get the opinion of nephrology testing that his creatinine went up to 1.5. Patient looks tired although patient says he is okay. Patient completed Remdesivir and was started on Barcitinib. 03/19/2021 Patient evaluated today sitting in the edge of the bed. He maintains on an aerosol as well as a nonrebreather. Patient has bilateral lower extremity edema which is [place] wrapped, edema is still +2 pitting above the wraps, he continues on IV lasix Q8. He appears to be about a -2.5 L fluid balance in the last 24 hours. Vital signs reviewed, he is afebrile, heart rate 72, respirations 28, blood pressure 137/75 and he is 90% on a 55 L Airvo with a 100% nonrebreather ma sk. Patient was able to carry on full conversation however once he pauses he does become hypoxic, 87-88%, recovers though. Labs reviewed today include a white count 12.52, hemoglobin 13.4, d-dimer 1.03, sodium 143, potassium 4.2, creatinine 1.4, BUN 58.8. Sugars are in the 200s up to as high as 329, AST is 42, ALT 72 today. LDH is 612, CRP 1.30, which is slightly improved from yesterday. Chest x-ray today shows stable myocardial megaly, stable diffuse interstitial changes and patchy mid and lower lung infiltrates as seen with covid Pneumonia. He continues on Lovenox, vitamins, IV solu-medrol, and baricitinib. He is being followed closely by pulmonary services. Pending nephrology consultation. 03/20/2021 Patient evaluated today sitting up in chair he is on airvo 55L and NRB with an oxygen saturation of 95%, blood pressure 130/74, afebrile, heart rate 89. Labs today sodium 138, potassium 3.8, chloride 97, CO2 34, BUN 66, creatinine 1.30, blood glucose in the 150's today. He states that he feels slightly better than yesterday, although he is requiring alot of oxygen support. He has not had a bowel movement in a few days, he is urinating without difficulty. Has a productive cough. Nephrology has ordered post void residuals. He is also being followed closely by [email or web address]. Continues on baricitinib, lovenox, zinc, vitamins, solumedrol, bronchodilators. 03/21/2021 patient is currently sitting in the chair. Awake alert and appears to be in no distress. Still requiring Airvo high flow oxygen at 55 L and 85% FiO2 and saturating at 87 to 92%. Patient is being pending IV Solu-Medrol, valacyclovir and Lovenox subcu and multivitamin supplementation. Laboratory data showed WBC 3.4 hemoglobin 13.9 and platelets 145 sodium 141 potassium 3.4 creatinine 1.4 AST 35 and ALT 68. Pulmonary is on board. ROS Constitutional: Denied any fatigue denied any fever. Cardio vascular: denied any chest pain, palpitations Gastrointestinal denied any nausea vomiting Pulmonary: Reports shortness of breath with exertion, mild at rest, reports cough Neurologic denied any new focal deficits All inpatient medications were reviewed and appropriate changes in these medications as dictated in the interval history and assessment and plan. Objective - Vital Signs Vital signs: Vital Signs Temp 97.6 F 03/21/21 14:00 Pulse 61 03/21/21 14:00 Resp 16 03/21/21 14:00 BP 118/65 03/21/21 14:00 Pulse Ox 95 03/21/21 14:00 Intake & Output 03/20/21 03/21/21 03/21/21 18:59 06:59 18:59 Intake Total 472 Output Total 375 500 400 Balance -375 -500 72 Weight 97.5 kg 99 kg Intake: Oral 472 Output: Urine 500 400 Post Void Residual 375 Other: Voiding Method Urinal Urinal # Bowel Movements 1 - Exam PHYSICAL EXAMINATION: GENERAL: The patient is alert and oriented x3, fatigues easy with activity even when talking HEENT: Pupils are round and equally reacting to light. EOMI. No scleral icterus. No conjunctival pallor. Normocephalic, atraumatic. No pharyngeal erythema. No thyromegaly. CARDIOVASCULAR: S1 and S2 present. No murmurs, rubs, or gallops. PULMONARY: Coarse scattered rhonchi throughout ABDOMEN: Soft, nontender, nondistended, normoactive bowel sounds. No palpable organomegaly. MUSCULOSKELETAL: No joint swelling or deformity. EXTREMITIES: No cyanosis, clubbing, +2 peripheral edema legs [place] wrapped. NEUROLOGICAL: Gross neurological examination did not reveal any focal deficits. SKIN: No rashes. - Labs CBC & Chem 7: 03/24/21 06:50 03/24/21 06:50 Labs: Abnormal Lab Results - Last 24 Hours (Table) 03/20/21 03/21/21 03/21/21 Range/Units 20:53 06:32 06:32 WBC 16.47 H (4.50-10.00) X 10*3/uL MCV 99.3 H (80.0-97.0) fL MCHC 31.8 L (32.0-37.0) g/dL MPV 13.1 H (9.5-12.2) fL Immature Gran # 0.21 H (0.00-0.04) X 10*3/uL Neutrophils # 15.53 H (1.80-7.70) X 10*3/uL Lymphocytes # 0.29 L (0.90-5.00) X 10*3/uL Eosinophils # 0 L (0.04-0.35) X 10*3/uL Potassium 3.4 L (3.5-5.5) mmol/L Carbon Dioxide 29.0 H (20.0-27.5) mmol/L BUN 56.1 H (9.0-27.0) mg/dL Est GFR (CKD-EPI)AfAm 57.8 L (60.0-200.0) Est GFR (CKD-EPI)NonAf 49.8 L (60.0-200.0) BUN/Creatinine Ratio 40.07 H (12.00-20.00) Ratio Glucose 201 H (70-110) mg/dL POC Glucose (mg/dL) 310 H (75-99) mg/dL Calcium 8.6 L (8.7-10.3) mg/dL ALT 68 H (10-49) U/L Total Protein 5.5 L (6.2-8.2) g/dL Albumin 3.4 L (3.8-4.9) g/dL 03/21/21 03/21/21 03/21/21 Range/Units 07:00 11:42 16:42 WBC (4.50-10.00) X 10*3/uL MCV (80.0-97.0) fL MCHC (32.0-37.0) g/dL MPV (9.5-12.2) fL Immature Gran # (0.00-0.04) X 10*3/uL Neutrophils # (1.80-7.70) X 10*3/uL Lymphocytes # (0.90-5.00) X 10*3/uL Eosinophils # (0.04-0.35) X 10*3/uL Potassium (3.5-5.5) mmol/L Carbon Dioxide (20.0-27.5) mmol/L BUN (9.0-27.0) mg/dL Est GFR (CKD-EPI)AfAm (60.0-200.0) Est GFR (CKD-EPI)NonAf (60.0-200.0) BUN/Creatinine Ratio (12.00-20.00) Ratio Glucose (70-110) mg/dL POC Glucose (mg/dL) 192 H 266 H 176 H (75-99) mg/dL Calcium (8.7-10.3) mg/dL ALT (10-49) U/L Total Protein (6.2-8.2) g/dL Albumin (3.8-4.9) g/dL Assessment and Plan Assessment: Assessment and plan -Acute on chronic hypoxic respiratory failure secondary to COVID-19 pneumonia wears 4L of oxygen at home, on 10L HF cannula - Covid 19 pneumonia. He on steroids and Barcitinib, Remdesivir -Leukocytosis secondary to above -Congestive heart failure chronic diastolic dysfunction with acute exacerbation at this time patient the BNP is only 206, most recent echo shows an EF of greater than 55%. on IV lasix -acute renal failure: Probably secondary to heart failure, on IV lasix -Acute COPD exacerbation -Mild transaminitis which is better at compared to his previous admission, chronic no further intervention at this time COVID-19 can cause transaminitis is Possible congestive heart failure chronic diastolic dysfunction with mild acute exacerbation -Elevated inflammatory markers of COVID-19 -Elevated DD secondary to COVID-19 infection, doppler negative for bilateral DVT -Chronic kidney disease stage III -Gastroesophageal reflux disease -Coronary artery disease -Type 2 diabetes mellitus insulin-dependent, exacerbated by steroids -Diabetic peripheral neuropathy -Obstructive sleep apnea -Chronic hypoxic respiratory failure Secondary to COPD and the sleep apnea -Hypertension -Hyperlipidemia -Benign prostatic hypertrophy -Chronic low back pain -History of DVT in the past for which patient is on not on any anti-coagulation presently DVT prophylaxis: Lovenox GI Prophylaxis: Protonix Plan Continue Solu-medrole, zinc, vitamins, lovenox, baricitanib Continue bronchodilators Adjust insulin Continue all other supportive care Repeat labs tomorrow Prognosis is guarded for this patient. Time with Patient: Greater than 30
--- NOTE | 2021-03-25 01:27 | P.PN ---
Subjective Progress Note Date: 03/22/21 Principal diagnosis: Acute on chronic hypoxic respiratory failure secondary to COVID-19 pneumonia Patient is a 71-year-old white male with a chronic medical problems a chronic hypoxic respiratory failure uses about 4 L of oxygen at home came in the with complaints of shortness of breath and cough restarted couple days ago was also having fever restarted couple days ago. Patient is found to have COVID-19 patient has multiple other medical problems chronically and patient does have history of COPD possible chronic diastolic dysfunction patient was on IV Lasix in the past. 03/13/2021 Patient evaluated today sitting on the edge of the bed. He is requiring oxygen at 7L HF with a saturation of 91%. Blood pressure 148/76, heart rate 74, temp 98.2. Labs today include WBC of 13.08, hgb 12.3, sodium 143, potassium 4.0, AST 55, ALT 94, LDH 526, CRP 13.60. DD 5.97, doppler negative for bilateral DVT. Pulmonary consultation today who increased decadron to twice a day and started the patient on remdesivir. Patient is also on subcu heparin, zinc, vitamins. 03/14/2021 Patient has been able to ambulate around his room while on oxygen. Vital signs included temperature of 91, heart rate 66 sinus rhythm, respirations 18, blood pressure 139/65 and he is 90% on 12 L high flow nasal cannula. Oxygen saturation has been progressively increasing. Labs today show a white count of 16.99, hemoglobin 12.8, sodium 146, glucose in the 70s, AST 68, ALT 96. Will repeat a chest x-ray in the morning as well as repeat labs and inflammatory markers. He continues on Lovenox, zinc, vitamins, he was started on IV remdesivir from pulmonary services today. Procalcitonin pending. Apparently patient has been refusing ketorolac eyedrops as he states that he is done taking outpatient; discontinued the order. 03/15/2021 Patient says he is feeling better patient the arms and requirements went up yesterday was on 10 L now came down to 8 L patient overall feels better but as per the nursing staff patient has been occasionally getting confused which is not unexpected for for him as he had sundowners in the past and patient is also on stress steroids which can do that. Patient was started on IV Lasix because of increased swelling in bilateral lower extremities patient barely takes one 20 mg of by mouth Lasix at home although it was documented as 20 mg. We'll continue with IV Lasix will monitor I's and O's will continue to wean off his oxygen. 03/16/2021 Patient feels better but his oxygen requirements remain the same patient remains on IV Lasix creatinine is around 1.3 compared to 1.2 on admission will continue to closely monitor his kidney function and the input and output. Patient remains on IV steroids blood sugars are within normal limits leukocytosis improved a bit. 03/17/2021 Patient has occasional confusional episodes during nighttime she is being well managed by Seroquel. The patient is presently on 15 L of oxygen patient swelling in bilateral lower x-ray significantly improved still has some swelling continue with IV Lasix creatinine remained stable at 1.2 serum sodium within normal limits. 03/18/2021 Patient was pretty status is worse today and patient is requiring airvo, patient has significant Swelling in bilateral lower extremities which is a worse compared to yesterday patient is on the Lasix every 12 hourly which will be changed to create hourly and we'll also get the opinion of nephrology testing that his creatinine went up to 1.5. Patient looks tired although patient says he is okay. Patient completed Remdesivir and was started on Barcitinib. 03/19/2021 Patient evaluated today sitting in the edge of the bed. He maintains on an aerosol as well as a nonrebreather. Patient has bilateral lower extremity edema which is [place] wrapped, edema is still +2 pitting above the wraps, he continues on IV lasix Q8. He appears to be about a -2.5 L fluid balance in the last 24 hours. Vital signs reviewed, he is afebrile, heart rate 72, respirations 28, blood pressure 137/75 and he is 90% on a 55 L Airvo with a 100% nonrebreather ma sk. Patient was able to carry on full conversation however once he pauses he does become hypoxic, 87-88%, recovers though. Labs reviewed today include a white count 12.52, hemoglobin 13.4, d-dimer 1.03, sodium 143, potassium 4.2, creatinine 1.4, BUN 58.8. Sugars are in the 200s up to as high as 329, AST is 42, ALT 72 today. LDH is 612, CRP 1.30, which is slightly improved from yesterday. Chest x-ray today shows stable myocardial megaly, stable diffuse interstitial changes and patchy mid and lower lung infiltrates as seen with covid Pneumonia. He continues on Lovenox, vitamins, IV solu-medrol, and baricitinib. He is being followed closely by pulmonary services. Pending nephrology consultation. 03/20/2021 Patient evaluated today sitting up in chair he is on airvo 55L and NRB with an oxygen saturation of 95%, blood pressure 130/74, afebrile, heart rate 89. Labs today sodium 138, potassium 3.8, chloride 97, CO2 34, BUN 66, creatinine 1.30, blood glucose in the 150's today. He states that he feels slightly better than yesterday, although he is requiring alot of oxygen support. He has not had a bowel movement in a few days, he is urinating without difficulty. Has a productive cough. Nephrology has ordered post void residuals. He is also being followed closely by panda. Continues on baricitinib, lovenox, zinc, vitamins, solumedrol, bronchodilators. 03/21/2021 patient is currently sitting in the chair. Awake alert and appears to be in no distress. Still requiring Airvo high flow oxygen at 55 L and 85% FiO2 and saturating at 87 to 92%. Patient is being pending IV Solu-Medrol, valacyclovir and Lovenox subcu and multivitamin supplementation. Laboratory data showed WBC 3.4 hemoglobin 13.9 and platelets 145 sodium 141 potassium 3.4 creatinine 1.4 AST 35 and ALT 68. Pulmonary is on board. 03/22/2021 patient is currently sitting wheelchair. Awake alert and oriented. Appears to be mild distress. Requiring high flow oxygen at 60 L and FiO2 85%. Otherwise patient is being current on IV Solu-Medrol and valacyclovir and Lovenox subcu. Laboratory data showed WBC 18.6 hemoglobin 13.7 and platelets 133 sodium 143 potassium 3.6 creatinine 1.4 LDH 597 and CRP less than 0.3. Patient is able to tolerate oral diet. No nausea vomiting abdominal pain or diarrhea. Denies any dysuria or hematuria. ROS Constitutional: Denied any fatigue denied any fever. Cardio vascular: denied any chest pain, palpitations Gastrointestinal denied any nausea vomiting Pulmonary: Reports shortness of breath with exertion, mild at rest, reports cough Neurologic denied any new focal deficits All inpatient medications were reviewed and appropriate changes in these medications as dictated in the interval history and assessment and plan. Objective - Vital Signs Vital signs: Vital Signs Temp 98.1 F 03/22/21 18:00 Pulse 80 03/22/21 18:00 Resp 16 03/22/21 18:00 BP 119/67 03/22/21 18:00 Pulse Ox 92 L 03/22/21 20:05 Intake & Output 03/22/21 03/22/21 03/23/21 06:59 18:59 06:59 Intake Total 708 Output Total 600 Balance 108 Weight 97.2 kg Intake: Oral 708 Output: Urine 600 Other: Voiding Method Urinal Urinal # Bowel Movements 1 - Exam PHYSICAL EXAMINATION: GENERAL: The patient is alert and oriented x3, fatigues easy with activity even when talking HEENT: Pupils are round and equally reacting to light. EOMI. No scleral icterus. No conjunctival pallor. Normocephalic, atraumatic. No pharyngeal erythema. No thyromegaly. CARDIOVASCULAR: S1 and S2 present. No murmurs, rubs, or gallops. PULMONARY: Coarse scattered rhonchi throughout ABDOMEN: Soft, nontender, nondistended, normoactive bowel sounds. No palpable organomegaly. MUSCULOSKELETAL: No joint swelling or deformity. EXTREMITIES: No cyanosis, clubbing, +2 peripheral edema legs [place] wrapped. NEUROLOGICAL: Gross neurological examination did not reveal any focal deficits. SKIN: No rashes. - Labs CBC & Chem 7: 03/24/21 06:50 03/24/21 06:50 Labs: Abnormal Lab Results - Last 24 Hours (Table) 03/22/21 03/22/21 03/22/21 Range/Units 06:45 06:45 07:04 WBC 18.62 H (4.50-10.00) X 10*3/uL RBC 4.27 L (4.40-5.60) X 10*6/uL MCV 100.2 H (80.0-97.0) fL MCH 32.1 H (27.0-32.0) pg RDW 14.8 H (11.5-14.5) % Plt Count 133 L (140-440) X 10*3/uL MPV 13.8 H (9.5-12.2) fL Immature Gran # 0.18 H (0.00-0.04) X 10*3/uL Neutrophils # 17.73 H (1.80-7.70) X 10*3/uL Lymphocytes # 0.26 L (0.90-5.00) X 10*3/uL Eosinophils # 0 L (0.04-0.35) X 10*3/uL Carbon Dioxide 30.5 H (20.0-27.5) mmol/L BUN 53.9 H (9.0-27.0) mg/dL Est GFR (CKD-EPI)AfAm 58.3 L (60.0-200.0) Est GFR (CKD-EPI)NonAf 50.3 L (60.0-200.0) BUN/Creatinine Ratio 38.78 H (12.00-20.00) Ratio Glucose 120 H (70-110) mg/dL POC Glucose (mg/dL) 134 H (75-99) mg/dL AST 42 H (14-35) U/L ALT 74 H (10-49) U/L Lactate Dehydrogenase 597 H (120-246) U/L Total Protein 5.5 L (6.2-8.2) g/dL Albumin 3.4 L (3.8-4.9) g/dL 03/22/21 03/22/21 03/22/21 Range/Units 11:41 16:33 20:44 WBC (4.50-10.00) X 10*3/uL RBC (4.40-5.60) X 10*6/uL MCV (80.0-97.0) fL MCH (27.0-32.0) pg RDW (11.5-14.5) % Plt Count (140-440) X 10*3/uL MPV (9.5-12.2) fL Immature Gran # (0.00-0.04) X 10*3/uL Neutrophils # (1.80-7.70) X 10*3/uL Lymphocytes # (0.90-5.00) X 10*3/uL Eosinophils # (0.04-0.35) X 10*3/uL Carbon Dioxide (20.0-27.5) mmol/L BUN (9.0-27.0) mg/dL Est GFR (CKD-EPI)AfAm (60.0-200.0) Est GFR (CKD-EPI)NonAf (60.0-200.0) BUN/Creatinine Ratio (12.00-20.00) Ratio Glucose (70-110) mg/dL POC Glucose (mg/dL) 182 H 140 H 122 H (75-99) mg/dL AST (14-35) U/L ALT (10-49) U/L Lactate Dehydrogenase (120-246) U/L Total Protein (6.2-8.2) g/dL Albumin (3.8-4.9) g/dL Assessment and Plan Assessment: Assessment and plan -Acute on chronic hypoxic respiratory failure secondary to COVID-19 pneumonia wears 4L of oxygen at home, on Airvo now - Covid 19 pneumonia. He on steroids and Barcitinib, Remdesivir -Leukocytosis secondary to above -Congestive heart failure chronic diastolic dysfunction with acute exacerbation at this time patient the BNP is only 206, most recent echo shows an EF of greater than 55%. on IV lasix -acute renal failure: Probably secondary to heart failure, on IV lasix -Acute COPD exacerbation -Mild transaminitis which is better at compared to his previous admission, chronic no further intervention at this time COVID-19 can cause transaminitis is Possible congestive heart failure chronic diastolic dysfunction with mild acute exacerbation -Elevated inflammatory markers of COVID-19 -Elevated DD secondary to COVID-19 infection, doppler negative for bilateral DVT -Chronic kidney disease stage III -Gastroesophageal reflux disease -Coronary artery disease -Type 2 diabetes mellitus insulin-dependent, exacerbated by steroids -Diabetic peripheral neuropathy -Obstructive sleep apnea -Chronic hypoxic respiratory failure Secondary to COPD and the sleep apnea -Hypertension -Hyperlipidemia -Benign prostatic hypertrophy -Chronic low back pain -History of DVT in the past for which patient is on not on any anti-coagulation presently DVT prophylaxis: Lovenox GI Prophylaxis: Protonix Plan Continue Solu-medrole, zinc, vitamins, lovenox, baricitanib Continue bronchodilators Adjust insulin Continue all other supportive care Repeat labs tomorrow Prognosis is guarded for this patient. Time with Patient: Greater than 30
--- NOTE | 2021-03-25 01:30 | P.PN ---
Subjective Progress Note Date: 03/23/21 Principal diagnosis: Acute on chronic hypoxic respiratory failure secondary to COVID-19 pneumonia Patient is a 71-year-old white male with a chronic medical problems a chronic hypoxic respiratory failure uses about 4 L of oxygen at home came in the with complaints of shortness of breath and cough restarted couple days ago was also having fever restarted couple days ago. Patient is found to have COVID-19 patient has multiple other medical problems chronically and patient does have history of COPD possible chronic diastolic dysfunction patient was on IV Lasix in the past. 03/13/2021 Patient evaluated today sitting on the edge of the bed. He is requiring oxygen at 7L HF with a saturation of 91%. Blood pressure 148/76, heart rate 74, temp 98.2. Labs today include WBC of 13.08, hgb 12.3, sodium 143, potassium 4.0, AST 55, ALT 94, LDH 526, CRP 13.60. DD 5.97, doppler negative for bilateral DVT. Pulmonary consultation today who increased decadron to twice a day and started the patient on remdesivir. Patient is also on subcu heparin, zinc, vitamins. 03/14/2021 Patient has been able to ambulate around his room while on oxygen. Vital signs included temperature of 91, heart rate 66 sinus rhythm, respirations 18, blood pressure 139/65 and he is 90% on 12 L high flow nasal cannula. Oxygen saturation has been progressively increasing. Labs today show a white count of 16.99, hemoglobin 12.8, sodium 146, glucose in the 70s, AST 68, ALT 96. Will repeat a chest x-ray in the morning as well as repeat labs and inflammatory markers. He continues on Lovenox, zinc, vitamins, he was started on IV remdesivir from pulmonary services today. Procalcitonin pending. Apparently patient has been refusing ketorolac eyedrops as he states that he is done taking outpatient; discontinued the order. 03/15/2021 Patient says he is feeling better patient the arms and requirements went up yesterday was on 10 L now came down to 8 L patient overall feels better but as per the nursing staff patient has been occasionally getting confused which is not unexpected for for him as he had sundowners in the past and patient is also on stress steroids which can do that. Patient was started on IV Lasix because of increased swelling in bilateral lower extremities patient barely takes one 20 mg of by mouth Lasix at home although it was documented as 20 mg. We'll continue with IV Lasix will monitor I's and O's will continue to wean off his oxygen. 03/16/2021 Patient feels better but his oxygen requirements remain the same patient remains on IV Lasix creatinine is around 1.3 compared to 1.2 on admission will continue to closely monitor his kidney function and the input and output. Patient remains on IV steroids blood sugars are within normal limits leukocytosis improved a bit. 03/17/2021 Patient has occasional confusional episodes during nighttime she is being well managed by Seroquel. The patient is presently on 15 L of oxygen patient swelling in bilateral lower x-ray significantly improved still has some swelling continue with IV Lasix creatinine remained stable at 1.2 serum sodium within normal limits. 03/18/2021 Patient was pretty status is worse today and patient is requiring airvo, patient has significant Swelling in bilateral lower extremities which is a worse compared to yesterday patient is on the Lasix every 12 hourly which will be changed to create hourly and we'll also get the opinion of nephrology testing that his creatinine went up to 1.5. Patient looks tired although patient says he is okay. Patient completed Remdesivir and was started on Barcitinib. 03/19/2021 Patient evaluated today sitting in the edge of the bed. He maintains on an aerosol as well as a nonrebreather. Patient has bilateral lower extremity edema which is [place] wrapped, edema is still +2 pitting above the wraps, he continues on IV lasix Q8. He appears to be about a -2.5 L fluid balance in the last 24 hours. Vital signs reviewed, he is afebrile, heart rate 72, respirations 28, blood pressure 137/75 and he is 90% on a 55 L Airvo with a 100% nonrebreather ma sk. Patient was able to carry on full conversation however once he pauses he does become hypoxic, 87-88%, recovers though. Labs reviewed today include a white count 12.52, hemoglobin 13.4, d-dimer 1.03, sodium 143, potassium 4.2, creatinine 1.4, BUN 58.8. Sugars are in the 200s up to as high as 329, AST is 42, ALT 72 today. LDH is 612, CRP 1.30, which is slightly improved from yesterday. Chest x-ray today shows stable myocardial megaly, stable diffuse interstitial changes and patchy mid and lower lung infiltrates as seen with covid Pneumonia. He continues on Lovenox, vitamins, IV solu-medrol, and baricitinib. He is being followed closely by pulmonary services. Pending nephrology consultation. 03/20/2021 Patient evaluated today sitting up in chair he is on airvo 55L and NRB with an oxygen saturation of 95%, blood pressure 130/74, afebrile, heart rate 89. Labs today sodium 138, potassium 3.8, chloride 97, CO2 34, BUN 66, creatinine 1.30, blood glucose in the 150's today. He states that he feels slightly better than yesterday, although he is requiring alot of oxygen support. He has not had a bowel movement in a few days, he is urinating without difficulty. Has a productive cough. Nephrology has ordered post void residuals. He is also being followed closely by panda. Continues on baricitinib, lovenox, zinc, vitamins, solumedrol, bronchodilators. 03/21/2021 patient is currently sitting in the chair. Awake alert and appears to be in no distress. Still requiring Airvo high flow oxygen at 55 L and 85% FiO2 and saturating at 87 to 92%. Patient is being pending IV Solu-Medrol, valacyclovir and Lovenox subcu and multivitamin supplementation. Laboratory data showed WBC 3.4 hemoglobin 13.9 and platelets 145 sodium 141 potassium 3.4 creatinine 1.4 AST 35 and ALT 68. Pulmonary is on board. 03/22/2021 patient is currently sitting wheelchair. Awake alert and oriented. Appears to be mild distress. Requiring high flow oxygen at 60 L and FiO2 85%. Otherwise patient is being current on IV Solu-Medrol and valacyclovir and Lovenox subcu. Laboratory data showed WBC 18.6 hemoglobin 13.7 and platelets 133 sodium 143 potassium 3.6 creatinine 1.4 LDH 597 and CRP less than 0.3. Patient is able to tolerate oral diet. No nausea vomiting abdominal pain or diarrhea. Denies any dysuria or hematuria. 03/23/2021 patient is currently sitting in the chair comfortably. Awake alert and oriented x3. Denies any complaints of chest pain or worsening shortness breath. Requ iring high flow oxygen at 55 L and FiO2 85%. Patient is being current on IV Solu-Medrol baricitinib is on hold due to low absolute lymphocyte count. Lymphocytes 0.1 Laboratory data showed WBC 26.0 hemoglobin 14.4 and platelets 154 sodium 139 potassium 3.2 chloride 98 BUN 65 and creatinine 1.22 patient is also Lovenox subcu and multivitamin supplementation ROS Constitutional: Denied any fatigue denied any fever. Cardio vascular: denied any chest pain, palpitations Gastrointestinal denied any nausea vomiting Pulmonary: Reports shortness of breath with exertion, mild at rest, reports cough Neurologic denied any new focal deficits All inpatient medications were reviewed and appropriate changes in these medications as dictated in the interval history and assessment and plan. Objective - Vital Signs Vital signs: Vital Signs Temp 98.2 F 03/23/21 22:00 Pulse 69 03/23/21 22:00 Resp 17 03/23/21 22:00 BP 119/64 03/23/21 22:00 Pulse Ox 90 L 03/23/21 22:00 Intake & Output 03/23/21 03/23/21 03/24/21 06:59 18:59 06:59 Intake Total 300 Output Total 950 1275 Balance -650 -1275 Weight 97.9 kg Intake: Oral 300 Output: Urine 950 1275 Other: Voiding Method Urinal Urinal - Exam PHYSICAL EXAMINATION: GENERAL: The patient is alert and oriented x3, fatigues easy with activity even when talking HEENT: Pupils are round and equally reacting to light. EOMI. No scleral icterus. No conjunctival pallor. Normocephalic, atraumatic. No pharyngeal erythema. No thyromegaly. CARDIOVASCULAR: S1 and S2 present. No murmurs, rubs, or gallops. PULMONARY: Coarse scattered rhonchi throughout ABDOMEN: Soft, nontender, nondistended, normoactive bowel sounds. No palpable organomegaly. MUSCULOSKELETAL: No joint swelling or deformity. EXTREMITIES: No cyanosis, clubbing, +2 peripheral edema legs [place] wrapped. NEUROLOGICAL: Gross neurological examination did not reveal any focal deficits. SKIN: No rashes. - Labs CBC & Chem 7: 03/24/21 06:50 03/24/21 06:50 Labs: Abnormal Lab Results - Last 24 Hours (Table) 1203/23/21 03/23/21 Range/Units 07:32 07:32 07:39 WBC 26.0 H (3.8-10.6) k/uL MCV 101.8 H (80.0-100.0) fL Neutrophils # 24.8 H (1.3-7.7) k/uL Lymphocytes # 0.1 L (1.0-4.8) k/uL Potassium 3.2 L (3.5-5.1) mmol/L Carbon Dioxide 33 H (22-30) mmol/L BUN 65 H (9-20) mg/dL POC Glucose (mg/dL) (75-99) mg/dL Magnesium 2.4 H (1.6-2.3) mg/dL ALT 73 H (4-49) U/L Total Protein 6.0 L (6.3-8.2) g/dL Albumin 3.2 L (3.5-5.0) g/dL 03/23/21 03/23/21 03/23/21 Range/Units 11:21 16:50 20:59 WBC (3.8-10.6) k/uL MCV (80.0-100.0) fL Neutrophils # (1.3-7.7) k/uL Lymphocytes # (1.0-4.8) k/uL Potassium (3.5-5.1) mmol/L Carbon Dioxide (22-30) mmol/L BUN (9-20) mg/dL POC Glucose (mg/dL) 209 H 223 H 173 H (75-99) mg/dL Magnesium (1.6-2.3) mg/dL ALT (4-49) U/L Total Protein (6.3-8.2) g/dL Albumin (3.5-5.0) g/dL Assessment and Plan Assessment: Assessment and plan -Acute on chronic hypoxic respiratory failure secondary to COVID-19 pneumonia wears 4L of oxygen at home, on Airvo now - Covid 19 pneumonia. He on steroids and Barcitinib, Remdesivir -Leukocytosis secondary to above -Congestive heart failure chronic diastolic dysfunction with acute exacerbation at this time patient the BNP is only 206, most recent echo shows an EF of greater than 55%. on IV lasix -acute renal failure: Probably secondary to heart failure, on IV lasix -Acute COPD exacerbation -Mild transaminitis which is better at compared to his previous admission, chronic no further intervention at this time COVID-19 can cause transaminitis is Possible congestive heart failure chronic diastolic dysfunction with mild acute exacerbation -Elevated inflammatory markers of COVID-19 -Elevated DD secondary to COVID-19 infection, doppler negative for bilateral DVT -Chronic kidney disease stage III -Gastroesophageal reflux disease -Coronary artery disease -Type 2 diabetes mellitus insulin-dependent, exacerbated by steroids -Diabetic peripheral neuropathy -Obstructive sleep apnea -Chronic hypoxic respiratory failure Secondary to COPD and the sleep apnea -Hypertension -Hyperlipidemia -Benign prostatic hypertrophy -Chronic low back pain -History of DVT in the past for which patient is on not on any anti-coagulation presently DVT prophylaxis: Lovenox GI Prophylaxis: Protonix Plan Continue Solu-medrol, zinc, vitamins, lovenox, Continue bronchodilators Adjust insulin Continue all other supportive care Repeat labs tomorrow Prognosis is guarded for this patient. Time with Patient: Greater than 30
--- NOTE | 2021-03-25 01:31 | P.PN ---
Subjective Progress Note Date: 03/24/21 Principal diagnosis: Acute on chronic hypoxic respiratory failure secondary to COVID-19 pneumonia Patient is a 71-year-old white male with a chronic medical problems a chronic hypoxic respiratory failure uses about 4 L of oxygen at home came in the with complaints of shortness of breath and cough restarted couple days ago was also having fever restarted couple days ago. Patient is found to have COVID-19 patient has multiple other medical problems chronically and patient does have history of COPD possible chronic diastolic dysfunction patient was on IV Lasix in the past. 03/13/2021 Patient evaluated today sitting on the edge of the bed. He is requiring oxygen at 7L HF with a saturation of 91%. Blood pressure 148/76, heart rate 74, temp 98.2. Labs today include WBC of 13.08, hgb 12.3, sodium 143, potassium 4.0, AST 55, ALT 94, LDH 526, CRP 13.60. DD 5.97, doppler negative for bilateral DVT. Pulmonary consultation today who increased decadron to twice a day and started the patient on remdesivir. Patient is also on subcu heparin, zinc, vitamins. 03/14/2021 Patient has been able to ambulate around his room while on oxygen. Vital signs included temperature of 91, heart rate 66 sinus rhythm, respirations 18, blood pressure 139/65 and he is 90% on 12 L high flow nasal cannula. Oxygen saturation has been progressively increasing. Labs today show a white count of 16.99, hemoglobin 12.8, sodium 146, glucose in the 70s, AST 68, ALT 96. Will repeat a chest x-ray in the morning as well as repeat labs and inflammatory markers. He continues on Lovenox, zinc, vitamins, he was started on IV remdesivir from pulmonary services today. Procalcitonin pending. Apparently patient has been refusing ketorolac eyedrops as he states that he is done taking outpatient; discontinued the order. 03/15/2021 Patient says he is feeling better patient the arms and requirements went up yesterday was on 10 L now came down to 8 L patient overall feels better but as per the nursing staff patient has been occasionally getting confused which is not unexpected for for him as he had sundowners in the past and patient is also on stress steroids which can do that. Patient was started on IV Lasix because of increased swelling in bilateral lower extremities patient barely takes one 20 mg of by mouth Lasix at home although it was documented as 20 mg. We'll continue with IV Lasix will monitor I's and O's will continue to wean off his oxygen. 03/16/2021 Patient feels better but his oxygen requirements remain the same patient remains on IV Lasix creatinine is around 1.3 compared to 1.2 on admission will continue to closely monitor his kidney function and the input and output. Patient remains on IV steroids blood sugars are within normal limits leukocytosis improved a bit. 03/17/2021 Patient has occasional confusional episodes during nighttime she is being well managed by Seroquel. The patient is presently on 15 L of oxygen patient swelling in bilateral lower x-ray significantly improved still has some swelling continue with IV Lasix creatinine remained stable at 1.2 serum sodium within normal limits. 03/18/2021 Patient was pretty status is worse today and patient is requiring airvo, patient has significant Swelling in bilateral lower extremities which is a worse compared to yesterday patient is on the Lasix every 12 hourly which will be changed to create hourly and we'll also get the opinion of nephrology testing that his creatinine went up to 1.5. Patient looks tired although patient says he is okay. Patient completed Remdesivir and was started on Barcitinib. 03/19/2021 Patient evaluated today sitting in the edge of the bed. He maintains on an aerosol as well as a nonrebreather. Patient has bilateral lower extremity edema which is [place] wrapped, edema is still +2 pitting above the wraps, he continues on IV lasix Q8. He appears to be about a -2.5 L fluid balance in the last 24 hours. Vital signs reviewed, he is afebrile, heart rate 72, respirations 28, blood pressure 137/75 and he is 90% on a 55 L Airvo with a 100% nonrebreather ma sk. Patient was able to carry on full conversation however once he pauses he does become hypoxic, 87-88%, recovers though. Labs reviewed today include a white count 12.52, hemoglobin 13.4, d-dimer 1.03, sodium 143, potassium 4.2, creatinine 1.4, BUN 58.8. Sugars are in the 200s up to as high as 329, AST is 42, ALT 72 today. LDH is 612, CRP 1.30, which is slightly improved from yesterday. Chest x-ray today shows stable myocardial megaly, stable diffuse interstitial changes and patchy mid and lower lung infiltrates as seen with covid Pneumonia. He continues on Lovenox, vitamins, IV solu-medrol, and baricitinib. He is being followed closely by pulmonary services. Pending nephrology consultation. 03/20/2021 Patient evaluated today sitting up in chair he is on airvo 55L and NRB with an oxygen saturation of 95%, blood pressure 130/74, afebrile, heart rate 89. Labs today sodium 138, potassium 3.8, chloride 97, CO2 34, BUN 66, creatinine 1.30, blood glucose in the 150's today. He states that he feels slightly better than yesterday, although he is requiring alot of oxygen support. He has not had a bowel movement in a few days, he is urinating without difficulty. Has a productive cough. Nephrology has ordered post void residuals. He is also being followed closely by panda. Continues on baricitinib, lovenox, zinc, vitamins, solumedrol, bronchodilators. 03/21/2021 patient is currently sitting in the chair. Awake alert and appears to be in no distress. Still requiring Airvo high flow oxygen at 55 L and 85% FiO2 and saturating at 87 to 92%. Patient is being pending IV Solu-Medrol, valacyclovir and Lovenox subcu and multivitamin supplementation. Laboratory data showed WBC 3.4 hemoglobin 13.9 and platelets 145 sodium 141 potassium 3.4 creatinine 1.4 AST 35 and ALT 68. Pulmonary is on board. 03/22/2021 patient is currently sitting wheelchair. Awake alert and oriented. Appears to be mild distress. Requiring high flow oxygen at 60 L and FiO2 85%. Otherwise patient is being current on IV Solu-Medrol and valacyclovir and Lovenox subcu. Laboratory data showed WBC 18.6 hemoglobin 13.7 and platelets 133 sodium 143 potassium 3.6 creatinine 1.4 LDH 597 and CRP less than 0.3. Patient is able to tolerate oral diet. No nausea vomiting abdominal pain or diarrhea. Denies any dysuria or hematuria. 03/23/2021 patient is currently sitting in the chair comfortably. Awake alert and oriented x3. Denies any complaints of chest pain or worsening shortness breath. Requ iring high flow oxygen at 55 L and FiO2 85%. Patient is being current on IV Solu-Medrol baricitinib is on hold due to low absolute lymphocyte count. Lymphocytes 0.1 Laboratory data showed WBC 26.0 hemoglobin 14.4 and platelets 154 sodium 139 potassium 3.2 chloride 98 BUN 65 and creatinine 1.22 patient is also Lovenox subcu and multivitamin supplementation 03/24/2021 patient is currently in the medical floor. Sitting in the chair comfortably. Mild cough. Otherwise overall clinically improving. Still requiring high flow oxygen 55 L at 80% FiO2. Able to tolerate oral diet. Patient is being continued on IV Solu-Medrol, Lovenox and multivitamin supplementation. Laboratory data showed WBC 22.1 hemoglobin 14.0 and platelets 152 sodium 138 potassium 3.3 chloride 97 bicarb is 34 BUN 65 and creatinine 1.23 ROS Constitutional: Denied any fatigue denied any fever. Cardio vascular: denied any chest pain, palpitations Gastrointestinal denied any nausea vomiting Pulmonary: Reports shortness of breath with exertion, mild at rest, reports cough Neurologic denied any new focal deficits All inpatient medications were reviewed and appropriate changes in these medications as dictated in the interval history and assessment and plan. Objective - Vital Signs Vital signs: Vital Signs Temp 98.1 F 03/24/21 18:09 Pulse 77 03/24/21 18:09 Resp 39 H 03/24/21 18:09 BP 149/75 03/24/21 18:09 Pulse Ox 92 L 03/24/21 18:09 Intake & Output 03/24/21 03/24/21 03/25/21 06:59 18:59 06:59 Output Total 350 Balance -350 Output: Urine 350 Other: Voiding Method Urinal Urinal # Voids 4 - Exam PHYSICAL EXAMINATION: GENERAL: The patient is alert and oriented x3, fatigues easy with activity even when talking HEENT: Pupils are round and equally reacting to light. EOMI. No scleral icterus. No conjunctival pallor. Normocephalic, atraumatic. No pharyngeal erythema. No thyromegaly. CARDIOVASCULAR: S1 and S2 present. No murmurs, rubs, or gallops. PULMONARY: Coarse scattered rhonchi throughout ABDOMEN: Soft, nontender, nondistended, normoactive bowel sounds. No palpable organomegaly. MUSCULOSKELETAL: No joint swelling or deformity. EXTREMITIES: No cyanosis, clubbing, +2 peripheral edema legs [place] wrapped. NEUROLOGICAL: Gross neurological examination did not reveal any focal deficits. SKIN: No rashes. - Labs CBC & Chem 7: 03/24/21 06:50 03/24/21 06:50 Labs: Abnormal Lab Results - Last 24 Hours (Table) 03/24/21 03/24/21 03/24/21 Range/Units 06:50 06:50 11:36 WBC 22.1 H (3.8-10.6) k/uL RBC 4.23 L (4.30-5.90) m/uL MCV 101.3 H (80.0-100.0) fL Neutrophils # 21.1 H (1.3-7.7) k/uL Lymphocytes # 0.1 L (1.0-4.8) k/uL Potassium 3.3 L (3.5-5.1) mmol/L Chloride 97 L (98-107) mmol/L Carbon Dioxide 34 H (22-30) mmol/L BUN 65 H (9-20) mg/dL POC Glucose (mg/dL) 308 H (75-99) mg/dL ALT 73 H (4-49) U/L Total Protein 5.8 L (6.3-8.2) g/dL Albumin 3.1 L (3.5-5.0) g/dL 03/24/21 03/24/21 Range/Units 16:18 20:44 WBC (3.8-10.6) k/uL RBC (4.30-5.90) m/uL MCV (80.0-100.0) fL Neutrophils # (1.3-7.7) k/uL Lymphocytes # (1.0-4.8) k/uL Potassium (3.5-5.1) mmol/L Chloride (98-107) mmol/L Carbon Dioxide (22-30) mmol/L BUN (9-20) mg/dL POC Glucose (mg/dL) 274 H 237 H (75-99) mg/dL ALT (4-49) U/L Total Protein (6.3-8.2) g/dL Albumin (3.5-5.0) g/dL Assessment and Plan Assessment: Assessment and plan -Acute on chronic hypoxic respiratory failure secondary to COVID-19 pneumonia wears 4L of oxygen at home, on Airvo now - Covid 19 pneumonia. He on steroids and Barcitinib, Remdesivir -Leukocytosis secondary to above -Congestive heart failure chronic diastolic dysfunction with acute exacerbation at this time patient the BNP is only 206, most recent echo shows an EF of greater than 55%. on IV lasix -acute renal failure: Probably secondary to heart failure, on IV lasix -Acute COPD exacerbation -Mild transaminitis which is better at compared to his previous admission, chronic no further intervention at this time COVID-19 can cause transaminitis is Possible congestive heart failure chronic diastolic dysfunction with mild acute exacerbation -Elevated inflammatory markers of COVID-19 -Elevated DD secondary to COVID-19 infection, doppler negative for bilateral DVT -Chronic kidney disease stage III -Gastroesophageal reflux disease -Coronary artery disease -Type 2 diabetes mellitus insulin-dependent, exacerbated by steroids -Diabetic peripheral neuropathy -Obstructive sleep apnea -Chronic hypoxic respiratory failure Secondary to COPD and the sleep apnea -Hypertension -Hyperlipidemia -Benign prostatic hypertrophy -Chronic low back pain -History of DVT in the past for which patient is on not on any anti-coagulation presently DVT prophylaxis: Lovenox GI Prophylaxis: Protonix Plan Continue Solu-medrol, zinc, vitamins, lovenox,Baricitinib on hold due to low ALC Continue bronchodilators Adjust insulin Continue all other supportive care Repeat labs tomorrow Prognosis is guarded for this patient. Time with Patient: Greater than 30
[2021-03-25] MEDS: methylPREDNISolone SOD SUCCI 125 MG/2 ML VIAL IV SCH ×4 (02:42→21:47)
[2021-03-25 07:25] LABS: Glucose,Whole Blood 181 mg/dL (75-99)
[2021-03-25 07:42] LABS: Basophils % (A) 0 %; Eosinophils % (A) 0 %; HCT 44.4 % (39.0-53.0); HGB 14.2 gm/dL (13.0-17.5); Lymphocytes # (A) 0.2 k/uL (1.0-4.8); Lymphocytes % (A) 1 %; MCH 32.2 pg (25.0-35.0); MCHC 32.1 g/dL (31.0-37.0); MCV 100.3 fL (80.0-100.0); Macrocytosis Slight; Mean Platelet Volume 10.7; Monocytes # (A) 0.8 k/uL (0-1.0); Monocytes % (A) 4 %; Neutrophils # (A) 18.7 k/uL (1.3-7.7); Neutrophils % (A) 95 %; Platelet Count 164 k/uL (150-450); RBC 4.42 m/uL (4.30-5.90); RDW 14.5 % (11.5-15.5); WBC 19.8 k/uL (3.8-10.6)
[2021-03-25 07:50] LABS: ALT 84 U/L (4-49); AST 56 U/L (17-59); African American GFR (CKD) 75 (>60 ml/min/1.73 sqM); Albumin/Globulin Ratio 1.1; Alkaline Phosphatase 95 U/L (38-126); Anion Gap 6 mmol/L; Blood Urea Nitrogen 60 mg/dL (9-20); Calcium 8.4 mg/dL (8.4-10.2); Carbon Dioxide 34 mmol/L (22-30); Chloride 98 mmol/L (98-107); Globulin 2.7 g/dL; Magnesium 2.4 mg/dL (1.6-2.3); Non-African American GFR(CKD) 65 (>60 ml/min/1.73 sqM); Potassium 3.6 mmol/L (3.5-5.1); Sodium 138 mmol/L (137-145); Total Bilirubin 0.9 mg/dL (0.2-1.3); Total Protein 5.7 g/dL (6.3-8.2)
[2021-03-25 07:54] LABS: Glucose 48 mg/dL (74-99)
[2021-03-25 08:11] LABS: Glucose,Whole Blood 56 mg/dL (75-99)
[2021-03-25 08:25] LABS: Glucose,Whole Blood 117 mg/dL (75-99)
[2021-03-25] MEDS: ALBUTEROL HFA INHALER INHALATION SCH ×4 (08:48→22:06)
[2021-03-25] MEDS: SYMBICORT 160-4.5 MCG INHALER INHALATION SCH ×2 (08:48→22:06)
[2021-03-25] MEDS: INSULIN ASPART (NovoLOG) 100 UNIT/ML VIAL SQ SCH ×8 (09:46→21:50)
[2021-03-25] MEDS: FUROSEMIDE 10 MG/ML 4 ML VIAL IV SCH ×2 (09:47→21:47)
[2021-03-25] MEDS: METOPROLOL TARTRATE 50 MG TAB PO SCH (09:47)
[2021-03-25] MEDS: ISOSORBIDE MONONITRATE ER 30 MG TAB.ER.24H PO SCH (09:47)
[2021-03-25] MEDS: FAMOTIDINE 20 MG TAB PO SCH (09:48)
[2021-03-25] MEDS: MAGNESIUM OXIDE 400 MG TAB PO SCH (09:48)
[2021-03-25] MEDS: CHOLECALCIFEROL 125 MCG (5000 IU) TABLET PO SCH (09:48)
[2021-03-25] MEDS: PANTOPRAZOLE 40 MG TABLET PO SCH (09:48)
[2021-03-25] MEDS: ASPIRIN 81 MG PO SCH (09:48)
[2021-03-25] MEDS: allopurinoL 100 MG TAB PO SCH (09:48)
[2021-03-25] MEDS: TAMSULOSIN 0.4 MG CAP.ER.24H PO SCH (09:48)
[2021-03-25] MEDS: ZINC SULFATE 220 MG CAP PO SCH (09:48)
[2021-03-25] MEDS: ASCORBIC ACID 500 MG TAB PO SCH ×2 (09:48→21:48)
[2021-03-25] MEDS: ENOXAPARIN 40 MG/0.4 ML SYRINGE SQ SCH (09:49)
[2021-03-25] MEDS: COLCHICINE 0.6 MG EACH PO SCH (09:49)
[2021-03-25] MEDS: NYSTATIN 100,000 UNIT/ML SUSP 500,000 UNIT/5 ML CUP PO SCH ×4 (09:49→21:48)
[2021-03-25] MEDS: QUEtiapine 25 MG TAB PO SCH ×2 (09:50→21:48)
[2021-03-25 11:06] LABS: Glucose,Whole Blood 234 mg/dL (75-99)
[2021-03-25] MEDS ORDERED: POTASSIUM CHLORIDE ER 20 MEQ TAB.ER PO STA (11:48)
--- NOTE | 2021-03-25 11:48 | P.PN ---
Subjective Patient is seen in follow-up for chronic kidney disease. Renal function stable. On IV Lasix. Edema improving. Currently on airvo. Denies chest pain or shortness of breath. No active complaints. Hemodynamically stable. Vital signs are stable. General: The patient appeared well nourished and normally developed. HEENT: Head exam is unremarkable. LUNGS: Breath sounds decreased. HEART: Rate and Rhythm are regular. ABDOMEN: Soft, obese. EXTREMITITES: Lower except is wrapped. 1+ edema. Objective - Vital Signs Vital signs: Vital Signs Temp 98.1 F 03/25/21 09:52 Pulse 89 03/25/21 09:52 Resp 39 H 03/25/21 09:52 BP 148/65 03/25/21 09:52 Pulse Ox 93 L 03/25/21 09:52 Intake & Output 03/24/21 03/25/21 03/25/21 18:59 06:59 18:59 Output Total 350 Balance -350 Weight 97.4 kg Output: Urine 350 Other: Voiding Method Urinal Urinal # Voids 4 - Labs CBC & Chem 7: 03/25/21 07:07 03/25/21 07:07 Labs: Abnormal Lab Results - Last 24 Hours (Table) 03/24/21 03/24/21 03/24/21 Range/Units 11:36 16:18 20:44 WBC (3.8-10.6) k/uL MCV (80.0-100.0) fL Neutrophils # (1.3-7.7) k/uL Lymphocytes # (1.0-4.8) k/uL Carbon Dioxide (22-30) mmol/L BUN (9-20) mg/dL Glucose (74-99) mg/dL POC Glucose (mg/dL) 308 H 274 H 237 H (75-99) mg/dL Magnesium (1.6-2.3) mg/dL ALT (4-49) U/L Total Protein (6.3-8.2) g/dL Albumin (3.5-5.0) g/dL 03/25/21 03/25/21 03/25/21 Range/Units 07:07 07:07 07:23 WBC 19.8 H (3.8-10.6) k/uL MCV 100.3 H (80.0-100.0) fL Neutrophils # 18.7 H (1.3-7.7) k/uL Lymphocytes # 0.2 L (1.0-4.8) k/uL Carbon Dioxide 34 H (22-30) mmol/L BUN 60 H (9-20) mg/dL Glucose 48 L* (74-99) mg/dL POC Glucose (mg/dL) 181 H (75-99) mg/dL Magnesium 2.4 H (1.6-2.3) mg/dL ALT 84 H (4-49) U/L Total Protein 5.7 L (6.3-8.2) g/dL Albumin 3.0 L (3.5-5.0) g/dL 03/25/21 03/25/21 03/25/21 Range/Units 08:10 08:24 11:04 WBC (3.8-10.6) k/uL MCV (80.0-100.0) fL Neutrophils # (1.3-7.7) k/uL Lymphocytes # (1.0-4.8) k/uL Carbon Dioxide (22-30) mmol/L BUN (9-20) mg/dL Glucose (74-99) mg/dL POC Glucose (mg/dL) 56 L 117 H 234 H (75-99) mg/dL Magnesium (1.6-2.3) mg/dL ALT (4-49) U/L Total Protein (6.3-8.2) g/dL Albumin (3.5-5.0) g/dL Assessment and Plan Plan: Assessment: 1. Chronic kidney disease stage III with baseline creatinine 1.2-1.3 secondary to diabetic kidney disease and cardiorenal syndrome. Creatinine stable at 1.13 today. UA benign. 2. Acute on chronic diastolic CHF. 3. Volume overload. 4. Hypokalemia from diuresis. Replaced. Better. 5. COVID-19 pneumonia. Plan: Maintain IV Lasix. Replace potassium. Avoid nephrotoxins. Continue to monitor renal function and urine output.
[2021-03-25] MEDS: FLUCONAZOLE IN NACL,ISO-OSM 100 MG in SALINE 1 50ML.BAG IVPB SCH (12:46)
[2021-03-25] MEDS: CYCLOBENZAPRINE 10 MG TAB PO PRN (12:56)
--- NOTE | 2021-03-25 14:13 | P.PN ---
Subjective Progress Note Date: 03/25/21 Principal diagnosis: CoVID pneumonia This 71-year-old white male patient who follows with Dr. Torres in the pulmonary clinic for his history of advanced COPD on home oxygen patient usually wears 4 L on a regular basis, he is prednisone dependent and usually takes 20 mg on a regular basis, coronary artery disease, diabetes mellitus type 2, previous history of CVA, hypertension, hyperlipidemia, previous history of pneumonia, chronic kidney disease unspecified, sleep apnea, BPH, osteoarthritis. Patient presented to the emergency department on 03/12/2021 for evaluation of worsening dyspnea. Patient had a fever at home up to 101.7F. He saw Dr. Torres on Friday03/09/2021 and his antibiotics were changed. Patient was also given a prednisone taper and was placed on Levaquin. Has chronic swelling in his lower extremities which is unchanged. Of note patient was tested for COVID-19 on 03/02/2021 and was found to be negative. During this visit to the ED he tested positive on 03/12/2021. Patient has been vaccinated against COVID-19. His chest x-ray shows increasing diffuse interstitial opacity, with the possibility of fluid overload/CHF, interstitial pneumonitis, atypical pneumonia or chronic pneumonia. His blood work on admission has been reviewed showing white blood cell count of 12.7, hemoglobin of 12.3, his INR 0.9, sodium is 136, potassium is 4.2, chloride is 97, CO2 31, BUN is 55, creatinine is 1.28, troponin is less than 0.012, proBNP is within normal limits at 206. Patient has been started on Decadron 6 blood gram daily which we will increase to twice daily, he was placed on albuterol and Symbicort, he is on subcutaneous heparin 5000 units every 12 hours, and the patient is within the window for Remdesivir which she will be started on today. On 03/14/2021 patient seen in follow-up on medical surgical floor, he is breathing comfortably, she is resting in bed, no worsening dyspnea, he is currently on 12 L of oxygen his pulse ox is 92%, does have mildly congested cough, no chest discomfort, blood pressure is stable, his been afebrile. Lower extremity Dopplers showed no evidence of DVT. Today's labs have been reviewed, his white count is 16.9, hemoglobin is 12.8, sodium is 146, the rest of electrolytes are within normal limits, BUN is 40, creatinine is 1.2. LDH was 526, not significantly elevated, CRP was 13.6, follow-up in addition he remains on prophylactic dose Lovenox, he is on Decadron 6 mg twice daily. On 03/15/2021 patient seen in follow-up on medical surgical floor. He is awake and alert, he is currently on 10 L of oxygen, down from 12 L on yesterday's exam, he states his breathing is improving, his coughing less, his been afebrile, hemodynamically stable, no chest discomfort. His been ambulating about the room, tolerates activity well. Today's chest x-ray showing mild cardiomegaly, and stable diffuse interstitial changes and patchy peripheral infiltrates. Today's labs have been reviewed, his white blood cell count is 21.2, hemoglobin is 13.3, his d-dimer is improved and is down to 1.23, sodium is 146, the rest of the electrolytes are within normal limits, BUN is 44, creatinine is 1.3. His LDH is 625, slightly increased from most previous value of 526, CRP is improved and is down to 4.7 on today's labs, pro-calcitonin level is negative 2 at 0.16, and 0.19. Blood cultures have shown no growth. He currently continues on Decadron 6 mg twice daily, he is on Lovenox 40 mg once daily, he is on IV Lasix 40 mg every 12 hours, and we started him on the Remdesivir yesterday and today is day 3 of treatment. On 03/16/2021 patient seen in follow-up on medical surgical floor, he is awake and alert, in no acute distress, he states his breathing is about the same, not any worse, however his oxygen demand has increased to 15 L, his pulse ox is 88- 90%, his been afebrile, blood pressures been stable, denies any chest discomfort, no hemoptysis, lung sounds reveal scattered crackles mostly at bilateral bases, his chest x-ray from yesterday showed mild cardiomegaly, diffuse interstitial changes. Patient has been on IV Lasix 40 mg twice daily unfortunately has not fluid balance is very difficult to estimate, his lower extremity edema appears to be slightly better. He continues on Remdesivir, and today is day 4 of treatment. Today's labs have been reviewed, his white count is improving and is down to 16.5, hemoglobin is 12.4, his d-dimer was improving on yesterday's labs, and was down to 1.23, patient remains on prophylactic dose Lovenox 40 mg daily, BUN is 47, creatinine is 1.3, potassium is 3.8, sodium is 141, pro-calcitonin level was negative 2. Blood cultures were negative 2. Patient seen today 03/17/2021 in follow-up on the regular medical floor. He is currently sitting up the bedside. Awake and alert in no acute distress. He denies any worsening shortness of breath, cough or can just in. He is having some confusion at nighttime and pulling at his oxygen. He is currently on 15 L high flow nasal cannula with O2 saturations in the low 90s. Not requiring a nonrebreather mask at this point. Sodium 139. Potassium 4.3. Creatinine 1.20. Glucose 200. He is continued on bronchodilators, Lovenox, Decadron, vitamin supplements. Day #5 of Remdesivir. The patient is seen today 03/21/2021 in follow-up on the regular medical floor. He sitting up in a chair at the bedside. Awake and alert in no acute distress. Breathing a bit easier today. States no worse. He is still on AirVo at 55 L and 85% FiO2 with O2 saturations 87-92%. He is continued on Baricitinib, bronchodilators, Lovenox, IV Solu-Medrol and vitamin supplement. White count 16.4. Hemoglobin 13.9. Platelet count 145,000. Sodium 141 potassium 3.4. Creatinine 1.4. Blood glucose 201. AST 35. ALT 68. The patient seen today 03/22/2021 in follow-up on the regular medical floor. He is currently sitting up in a chair at the bedside. Awake and alert in mild respiratory distress. He is currently on AirVo high flow oxygen at 60 L and 85% FiO2 and occasionally 100% nonrebreather mask. He is continued on Baricitinib, Lovenox, IV Solu-Medrol, vitamin supplements. Remains on Symbicort, albuterol. Remains on IV diuretics. White count 18.6. Hemoglobin 13.7. Platelets 133. Sodium 143. Potassium 3.6. Creatinine 1.4. Glucose 120. AST 42. ALT 74. LDH 597. C-reactive protein less than 0.3. The patient is seen today 03/23/2021 in follow-up on the regular medical floor. He is awake and alert in no acute distress. Sitting up in a chair at the bedside. Feeling a bit better today compared to yesterday. Still with a loose nonproductive cough. No fever or chills. He is still requiring AirVo high flow oxygen at 55 L and 85% FiO2. White count 26.0. Hemoglobin 14.4. Lymphocytes 0. Absolute lymphocytes are 0.1. Sodium 139. Potassium 3.2. Creatinine 1.22. Glucose 209. AST 52. ALT 73. He is continued on Lovenox, IV Solu-Medrol, vitamin supplements. Remains on Symbicort, albuterol. Remains on IV diuretics. The Baricitinib will be placed on hold for now due to the low ALC. The patient is seen today on 03/24/2021 in follow-up on the regular medical floor. Currently sitting up in a chair at the bedside. Awake and alert in no acute distress. He's been slow to progress. He is feeling a bit stronger today. Less short of breath. He is still requiring AirVo high flow oxygen at 55 L and 80% FiO2. He has not been requiring the nonrebreather mask in the past 24 hours. His appetite is good. He is continued on IV Solu-Medrol, Lovenox, vitamin supplements. Continued on Symbicort and albuterol. Baricitinib on hold due to low ALC. White count 22.1. Hemoglobin 14.0. Lymphocytes 0.1. Sodium 138. Potassium 3.3. Creatinine 1.23. AST 49. ALT 73. Glucose 94. The patient is seen today 03/25/2021 in follow-up on the regular medical floor. He is awake and alert in no acute distress. Sitting up in a chair at the bedside. He has been slow to progress. He is still on AirVo high flow oxygen and 50 L and 80% FiO2. He has developed thrush in his mouth. Diflucan will be added. His Baricitinib remains on hold due to low lymphocyte count. He remains on Lovenox, IV Solu-Medrol, vitamin supplements. He is continued on IV diuretics. Continue bronchodilators. White count 19.8. Hemoglobin 14.2. Lymphocytes 0.2. Sodium 138. Potassium 3.6. Creatinine 1.13. Glucose 181. AST 56. ALT 84. Objective - Vital Signs Vital signs: Vital Signs Temp 98.1 F 03/25/21 09:52 Pulse 89 03/25/21 09:52 Resp 39 H 03/25/21 09:52 BP 148/65 03/25/21 09:52 Pulse Ox 93 L 03/25/21 09:52 Intake & Output 03/24/21 03/25/21 03/25/21 18:59 06:59 18:59 Output Total 350 Balance -350 Weight 97.4 kg Output: Urine 350 Other: Voiding Method Urinal Urinal Urinal # Voids 4 - Exam GENERAL EXAM: Alert, pleasant, 71-year-old male patient, up in a chair at the bedside on AirVo high flow oxygen at 55 L and 80% FiO2, fairly comfortable in no apparent distress. HEAD: Normocephalic/atraumatic. EYES: Normal reaction of pupils, equal size. Conjunctiva pink, sclera white. NOSE: Clear with pink turbinates. THROAT: No erythema or exudates. NECK: No masses, no JVD, no thyroid enlargement, no adenopathy. CHEST: No chest wall deformity. Symmetrical expansion. LUNGS: Equal air entry with diffuse crackles, and a few rhonchi CVS: Regular rate and rhythm, normal S1 and S2, no gallops, no murmurs, no rubs ABDOMEN: Soft, nontender. No hepatosplenomegaly, normal bowel sounds, no guarding or rigidity. EXTREMITIES: No clubbing, plus lower extremity edema with chronic venous stasis, no cyanosis, 2+ pulses and upper and lower extremities. MUSCULOSKELETAL: Muscle strength and tone normal. SPINE: No scoliosis or deformity SKIN: No rashes CENTRAL NERVOUS SYSTEM: No focal deficits, tone is normal in all 4 extremities. PSYCHIATRIC: Alert and oriented -3. Appropriate affect. Intact judgment and i nsight. - Labs CBC & Chem 7: 03/25/21 07:07 03/25/21 07:07 Labs: Abnormal Lab Results - Last 24 Hours (Table) 03/24/21 03/24/21 03/25/21 Range/Units 16:18 20:44 07:07 WBC 19.8 H (3.8-10.6) k/uL MCV 100.3 H (80.0-100.0) fL Neutrophils # 18.7 H (1.3-7.7) k/uL Lymphocytes # 0.2 L (1.0-4.8) k/uL Carbon Dioxide (22-30) mmol/L BUN (9-20) mg/dL Glucose (74-99) mg/dL POC Glucose (mg/dL) 274 H 237 H (75-99) mg/dL Magnesium (1.6-2.3) mg/dL ALT (4-49) U/L Total Protein (6.3-8.2) g/dL Albumin (3.5-5.0) g/dL 03/25/21 03/25/21 03/25/21 Range/Units 07:07 07:23 08:10 WBC (3.8-10.6) k/uL MCV (80.0-100.0) fL Neutrophils # (1.3-7.7) k/uL Lymphocytes # (1.0-4.8) k/uL Carbon Dioxide 34 H (22-30) mmol/L BUN 60 H (9-20) mg/dL Glucose 48 L* (74-99) mg/dL POC Glucose (mg/dL) 181 H 56 L (75-99) mg/dL Magnesium 2.4 H (1.6-2.3) mg/dL ALT 84 H (4-49) U/L Total Protein 5.7 L (6.3-8.2) g/dL Albumin 3.0 L (3.5-5.0) g/dL 03/25/21 03/25/21 Range/Units 08:24 11:04 WBC (3.8-10.6) k/uL MCV (80.0-100.0) fL Neutrophils # (1.3-7.7) k/uL Lymphocytes # (1.0-4.8) k/uL Carbon Dioxide (22-30) mmol/L BUN (9-20) mg/dL Glucose (74-99) mg/dL POC Glucose (mg/dL) 117 H 234 H (75-99) mg/dL Magnesium (1.6-2.3) mg/dL ALT (4-49) U/L Total Protein (6.3-8.2) g/dL Albumin (3.5-5.0) g/dL Assessment and Plan Assessment: 1 Acute on chronic hypoxic respiratory failure related to acute COVID-19 related pneumonia, patient tested positive on 03/12/2021. Patient is vaccinated against COVID-19. Completed Remdesivir. On 03/18/2021 the patient's oxygenati on worsened and he was placed on AirVo high flow oxygen and initiated on Baricitinib. On 03/23/2021 the patient's ALC was 0.1 and the Baricitinib is placed on hold for now. 2 Acute exacerbation of COPD 3 Chronic COPD, advanced, with a baseline FEV1 of 1.71 L or FEV1 of 58% usually on home oxygen at 4 L 4 Recent 2 hospitalizations for acute exacerbation of COPD in early February, during which patient tested negative for COVID-19, urinalysis was also negative, influenza A and B were negative 5 Diabetes mellitus type 2 6 Hypertension, 7 Hyperlipidemia 8 History of coronary artery disease with previous stenting 9 History of CHF, unspecified 10 History of CVA/TIA 11 Osteoarthritis 12 Chronic knee disease, unspecified 13 Chronic venous insufficiency 14 Chronic back pain 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 Lungs sounds crackles in the bilateral bases. Maintaining O2 saturations in the 90s on AirVo high flow oxygen at 60 L and 80% FiO2. I discussed the assessment and plan of care with my nurse practitioner, Judi Crawford. I attest to the above note as dictated by her.
[2021-03-25 16:22] LABS: Glucose,Whole Blood 364 mg/dL (75-99)
[2021-03-25 20:41] LABS: Glucose,Whole Blood 188 mg/dL (75-99)
[2021-03-25] MEDS: INSULIN DETEMIR (LEVEMIR) 100 UNIT/ML SYR SQ SCH (21:46)
[2021-03-25] MEDS: METOPROLOL TARTRATE 25 MG TAB PO SCH (21:48)
[2021-03-25] MEDS: PRAMIPEXOLE 1 MG TAB PO SCH (21:55)
--- NOTE | 2021-03-26 02:01 | P.PN ---
Subjective Progress Note Date: 03/25/21 Principal diagnosis: Acute on chronic hypoxic respiratory failure secondary to COVID-19 pneumonia Patient is a 71-year-old white male with a chronic medical problems a chronic hypoxic respiratory failure uses about 4 L of oxygen at home came in the with complaints of shortness of breath and cough restarted couple days ago was also having fever restarted couple days ago. Patient is found to have COVID-19 patient has multiple other medical problems chronically and patient does have history of COPD possible chronic diastolic dysfunction patient was on IV Lasix in the past. 03/13/2021 Patient evaluated today sitting on the edge of the bed. He is requiring oxygen at 7L HF with a saturation of 91%. Blood pressure 148/76, heart rate 74, temp 98.2. Labs today include WBC of 13.08, hgb 12.3, sodium 143, potassium 4.0, AST 55, ALT 94, LDH 526, CRP 13.60. DD 5.97, doppler negative for bilateral DVT. Pulmonary consultation today who increased decadron to twice a day and started the patient on remdesivir. Patient is also on subcu heparin, zinc, vitamins. 03/14/2021 Patient has been able to ambulate around his room while on oxygen. Vital signs included temperature of 91, heart rate 66 sinus rhythm, respirations 18, blood pressure 139/65 and he is 90% on 12 L high flow nasal cannula. Oxygen saturation has been progressively increasing. Labs today show a white count of 16.99, hemoglobin 12.8, sodium 146, glucose in the 70s, AST 68, ALT 96. Will repeat a chest x-ray in the morning as well as repeat labs and inflammatory markers. He continues on Lovenox, zinc, vitamins, he was started on IV remdesivir from pulmonary services today. Procalcitonin pending. Apparently patient has been refusing ketorolac eyedrops as he states that he is done taking outpatient; discontinued the order. 03/15/2021 Patient says he is feeling better patient the arms and requirements went up yesterday was on 10 L now came down to 8 L patient overall feels better but as per the nursing staff patient has been occasionally getting confused which is not unexpected for for him as he had sundowners in the past and patient is also on stress steroids which can do that. Patient was started on IV Lasix because of increased swelling in bilateral lower extremities patient barely takes one 20 mg of by mouth Lasix at home although it was documented as 20 mg. We'll continue with IV Lasix will monitor I's and O's will continue to wean off his oxygen. 03/16/2021 Patient feels better but his oxygen requirements remain the same patient remains on IV Lasix creatinine is around 1.3 compared to 1.2 on admission will continue to closely monitor his kidney function and the input and output. Patient remains on IV steroids blood sugars are within normal limits leukocytosis improved a bit. 03/17/2021 Patient has occasional confusional episodes during nighttime she is being well managed by Seroquel. The patient is presently on 15 L of oxygen patient swelling in bilateral lower x-ray significantly improved still has some swelling continue with IV Lasix creatinine remained stable at 1.2 serum sodium within normal limits. 03/18/2021 Patient was pretty status is worse today and patient is requiring airvo, patient has significant Swelling in bilateral lower extremities which is a worse compared to yesterday patient is on the Lasix every 12 hourly which will be changed to create hourly and we'll also get the opinion of nephrology testing that his creatinine went up to 1.5. Patient looks tired although patient says he is okay. Patient completed Remdesivir and was started on Barcitinib. 03/19/2021 Patient evaluated today sitting in the edge of the bed. He maintains on an aerosol as well as a nonrebreather. Patient has bilateral lower extremity edema which is [place] wrapped, edema is still +2 pitting above the wraps, he continues on IV lasix Q8. He appears to be about a -2.5 L fluid balance in the last 24 hours. Vital signs reviewed, he is afebrile, heart rate 72, respirations 28, blood pressure 137/75 and he is 90% on a 55 L Airvo with a 100% nonrebreather ma sk. Patient was able to carry on full conversation however once he pauses he does become hypoxic, 87-88%, recovers though. Labs reviewed today include a white count 12.52, hemoglobin 13.4, d-dimer 1.03, sodium 143, potassium 4.2, creatinine 1.4, BUN 58.8. Sugars are in the 200s up to as high as 329, AST is 42, ALT 72 today. LDH is 612, CRP 1.30, which is slightly improved from yesterday. Chest x-ray today shows stable myocardial megaly, stable diffuse interstitial changes and patchy mid and lower lung infiltrates as seen with covid Pneumonia. He continues on Lovenox, vitamins, IV solu-medrol, and baricitinib. He is being followed closely by pulmonary services. Pending nephrology consultation. 03/20/2021 Patient evaluated today sitting up in chair he is on airvo 55L and NRB with an oxygen saturation of 95%, blood pressure 130/74, afebrile, heart rate 89. Labs today sodium 138, potassium 3.8, chloride 97, CO2 34, BUN 66, creatinine 1.30, blood glucose in the 150's today. He states that he feels slightly better than yesterday, although he is requiring alot of oxygen support. He has not had a bowel movement in a few days, he is urinating without difficulty. Has a productive cough. Nephrology has ordered post void residuals. He is also being followed closely by panda. Continues on baricitinib, lovenox, zinc, vitamins, solumedrol, bronchodilators. 03/21/2021 patient is currently sitting in the chair. Awake alert and appears to be in no distress. Still requiring Airvo high flow oxygen at 55 L and 85% FiO2 and saturating at 87 to 92%. Patient is being pending IV Solu-Medrol, valacyclovir and Lovenox subcu and multivitamin supplementation. Laboratory data showed WBC 3.4 hemoglobin 13.9 and platelets 145 sodium 141 potassium 3.4 creatinine 1.4 AST 35 and ALT 68. Pulmonary is on board. 03/22/2021 patient is currently sitting wheelchair. Awake alert and oriented. Appears to be mild distress. Requiring high flow oxygen at 60 L and FiO2 85%. Otherwise patient is being current on IV Solu-Medrol and valacyclovir and Lovenox subcu. Laboratory data showed WBC 18.6 hemoglobin 13.7 and platelets 133 sodium 143 potassium 3.6 creatinine 1.4 LDH 597 and CRP less than 0.3. Patient is able to tolerate oral diet. No nausea vomiting abdominal pain or diarrhea. Denies any dysuria or hematuria. 03/23/2021 patient is currently sitting in the chair comfortably. Awake alert and oriented x3. Denies any complaints of chest pain or worsening shortness breath. Requ iring high flow oxygen at 55 L and FiO2 85%. Patient is being current on IV Solu-Medrol baricitinib is on hold due to low absolute lymphocyte count. Lymphocytes 0.1 Laboratory data showed WBC 26.0 hemoglobin 14.4 and platelets 154 sodium 139 potassium 3.2 chloride 98 BUN 65 and creatinine 1.22 patient is also Lovenox subcu and multivitamin supplementation 03/24/2021 patient is currently in the medical floor. Sitting in the chair comfortably. Mild cough. Otherwise overall clinically improving. Still requiring high flow oxygen 55 L at 80% FiO2. Able to tolerate oral diet. Patient is being continued on IV Solu-Medrol, Lovenox and multivitamin supplementation. Laboratory data showed WBC 22.1 hemoglobin 14.0 and platelets 152 sodium 138 potassium 3.3 chloride 97 bicarb is 34 BUN 65 and creatinine 1.23 03/25/2021 Patient is currently sitting in the chair comfortably. Awake alert and orie nted. No complaints of chest pain or worsening shortness breath. Still requiring high flow oxygen at 50 L 80% FiO2. Patient is being current IV Solu-Medrol and Lovenox subcu. Baricitinib is on hold due to low absolute lymphocyte l count. Patient is also on Lasix 40 mg every 12. Laboratory data showed WBC 19.8 hemoglobin 14.1 platelets 164 BUN 16 creatinine 1.13 and blood sugar was 48 this morning. ROS Constitutional: Denied any fatigue denied any fever. Cardio vascular: denied any chest pain, palpitations Gastrointestinal denied any nausea vomiting Pulmonary: Reports shortness of breath with exertion, mild at rest, reports cough Neurologic denied any new focal deficits All inpatient medications were reviewed and appropriate changes in these medications as dictated in the interval history and assessment and plan. Objective - Vital Signs Vital signs: Vital Signs Temp 98.2 F 03/25/21 14:00 Pulse 70 03/25/21 14:00 Resp 35 H 03/25/21 14:00 BP 116/63 03/25/21 14:00 Pulse Ox 97 03/25/21 14:00 Intake & Output 03/24/21 03/25/21 03/25/21 18:59 06:59 18:59 Output Total 350 Balance -350 Weight 97.4 kg Output: Urine 350 Other: Voiding Method Urinal Urinal Urinal # Voids 4 - Exam PHYSICAL EXAMINATION: GENERAL: The patient is alert and oriented x3, fatigues easy with activity even when talking HEENT: Pupils are round and equally reacting to light. EOMI. No scleral icterus. No conjunctival pallor. Normocephalic, atraumatic. No pharyngeal erythema. No thyromegaly. CARDIOVASCULAR: S1 and S2 present. No murmurs, rubs, or gallops. PULMONARY: Coarse scattered rhonchi throughout ABDOMEN: Soft, nontender, nondistended, normoactive bowel sounds. No palpable organomegaly. MUSCULOSKELETAL: No joint swelling or deformity. EXTREMITIES: No cyanosis, clubbing, +2 peripheral edema legs [place] wrapped. NEUROLOGICAL: Gross neurological examination did not reveal any focal deficits. SKIN: No rashes. - Labs CBC & Chem 7: 03/25/21 07:07 03/25/21 07:07 Labs: Abnormal Lab Results - Last 24 Hours (Table) 03/24/21 03/25/21 03/25/21 Range/Units 20:44 07:07 07:07 WBC 19.8 H (3.8-10.6) k/uL MCV 100.3 H (80.0-100.0) fL Neutrophils # 18.7 H (1.3-7.7) k/uL Lymphocytes # 0.2 L (1.0-4.8) k/uL Carbon Dioxide 34 H (22-30) mmol/L BUN 60 H (9-20) mg/dL Glucose 48 L* (74-99) mg/dL POC Glucose (mg/dL) 237 H (75-99) mg/dL Magnesium 2.4 H (1.6-2.3) mg/dL ALT 84 H (4-49) U/L Total Protein 5.7 L (6.3-8.2) g/dL Albumin 3.0 L (3.5-5.0) g/dL 03/25/21 03/25/21 03/25/21 Range/Units 07:23 08:10 08:24 WBC (3.8-10.6) k/uL MCV (80.0-100.0) fL Neutrophils # (1.3-7.7) k/uL Lymphocytes # (1.0-4.8) k/uL Carbon Dioxide (22-30) mmol/L BUN (9-20) mg/dL Glucose (74-99) mg/dL POC Glucose (mg/dL) 181 H 56 L 117 H (75-99) mg/dL Magnesium (1.6-2.3) mg/dL ALT (4-49) U/L Total Protein (6.3-8.2) g/dL Albumin (3.5-5.0) g/dL 03/25/21 03/25/21 Range/Units 11:04 16:21 WBC (3.8-10.6) k/uL MCV (80.0-100.0) fL Neutrophils # (1.3-7.7) k/uL Lymphocytes # (1.0-4.8) k/uL Carbon Dioxide (22-30) mmol/L BUN (9-20) mg/dL Glucose (74-99) mg/dL POC Glucose (mg/dL) 234 H 364 H (75-99) mg/dL Magnesium (1.6-2.3) mg/dL ALT (4-49) U/L Total Protein (6.3-8.2) g/dL Albumin (3.5-5.0) g/dL Assessment and Plan Assessment: Assessment and plan -Acute on chronic hypoxic respiratory failure secondary to COVID-19 pneumonia wears 4L of oxygen at home, on Airvo now - Covid 19 pneumonia. He on steroids and Barcitinib, Remdesivir -Leukocytosis secondary to above -Congestive heart failure chronic diastolic dysfunction with acute exacerbation at this time patient the BNP is only 206, most recent echo shows an EF of greater than 55%. on IV lasix -acute renal failure: Probably secondary to heart failure, on IV lasix -Acute COPD exacerbation -Mild transaminitis which is better at compared to his previous admission, chronic no further intervention at this time COVID-19 can cause transaminitis is Possible congestive heart failure chronic diastolic dysfunction with mild acute exacerbation -Elevated inflammatory markers of COVID-19 -Elevated DD secondary to COVID-19 infection, doppler negative for bilateral DVT -Chronic kidney disease stage III -Gastroesophageal reflux disease -Coronary artery disease -Type 2 diabetes mellitus insulin-dependent, exacerbated by steroids -Diabetic peripheral neuropathy -Obstructive sleep apnea -Chronic hypoxic respiratory failure Secondary to COPD and the sleep apnea -Hypertension -Hyperlipidemia -Benign prostatic hypertrophy -Chronic low back pain -History of DVT in the past for which patient is on not on any anti-coagulation presently DVT prophylaxis: Lovenox GI Prophylaxis: Protonix Plan Continue Solu-medrol, zinc, vitamins, lovenox,Baricitinib on hold due to low ALC Continue bronchodilators Adjust insulin Continue all other supportive care Repeat labs tomorrow Prognosis is guarded for this patient. Time with Patient: Greater than 30
[2021-03-26] MEDS: methylPREDNISolone SOD SUCCI 125 MG/2 ML VIAL IV SCH ×4 (02:27→20:43)
[2021-03-26 04:47] LABS: Glucose,Whole Blood 222 mg/dL (75-99)
[2021-03-26 07:11] LABS: Glucose,Whole Blood 207 mg/dL (75-99)
[2021-03-26 08:04] LABS: Basophils % (A) 0 %; Eosinophils # (A) 0.1 k/uL (0-0.7); Eosinophils % (A) 0 %; HCT 44.3 % (39.0-53.0); HGB 14.3 gm/dL (13.0-17.5); Lymphocytes # (A) 0.2 k/uL (1.0-4.8); Lymphocytes % (A) 1 %; MCH 32.7 pg (25.0-35.0); MCHC 32.4 g/dL (31.0-37.0); MCV 101.2 fL (80.0-100.0); Macrocytosis Slight; Monocytes # (A) 0.6 k/uL (0-1.0); Monocytes % (A) 4 %; Neutrophils # (A) 14.2 k/uL (1.3-7.7); Neutrophils % (A) 95 %; Platelet Count 163 k/uL (150-450); RBC 4.38 m/uL (4.30-5.90); RDW 14.6 % (11.5-15.5)
[2021-03-26 08:46] LABS: ALT 101 U/L (4-49); AST 54 U/L (17-59); African American GFR (CKD) 74 (>60 ml/min/1.73 sqM); Albumin 3.1 g/dL (3.5-5.0); Albumin/Globulin Ratio 1.1; Alkaline Phosphatase 114 U/L (38-126); Anion Gap 4 mmol/L; Blood Urea Nitrogen 56 mg/dL (9-20); Calcium 8.5 mg/dL (8.4-10.2); Carbon Dioxide 40 mmol/L (22-30); Chloride 96 mmol/L (98-107); Globulin 2.8 g/dL; Glucose 92 mg/dL (74-99); Non-African American GFR(CKD) 64 (>60 ml/min/1.73 sqM); Potassium 3.7 mmol/L (3.5-5.1); Sodium 140 mmol/L (137-145); Total Bilirubin 0.7 mg/dL (0.2-1.3); Total Protein 5.9 g/dL (6.3-8.2)
[2021-03-26] MEDS: FUROSEMIDE 10 MG/ML 4 ML VIAL IV SCH ×2 (08:53→20:42)
[2021-03-26] MEDS: NYSTATIN 100,000 UNIT/ML SUSP 500,000 UNIT/5 ML CUP PO SCH ×4 (08:53→20:48)
[2021-03-26] MEDS: ENOXAPARIN 40 MG/0.4 ML SYRINGE SQ SCH (08:53)
[2021-03-26] MEDS: QUEtiapine 25 MG TAB PO SCH ×2 (08:54→20:44)
[2021-03-26] MEDS: ASCORBIC ACID 500 MG TAB PO SCH ×2 (08:54→20:43)
[2021-03-26] MEDS: CHOLECALCIFEROL 125 MCG (5000 IU) TABLET PO SCH (08:54)
[2021-03-26] MEDS: TAMSULOSIN 0.4 MG CAP.ER.24H PO SCH (08:54)
[2021-03-26] MEDS: ISOSORBIDE MONONITRATE ER 30 MG TAB.ER.24H PO SCH (08:54)
[2021-03-26] MEDS: ZINC SULFATE 220 MG CAP PO SCH (08:54)
[2021-03-26] MEDS: ASPIRIN 81 MG PO SCH (08:55)
[2021-03-26] MEDS: METOPROLOL TARTRATE 50 MG TAB PO SCH (08:55)
[2021-03-26] MEDS: FAMOTIDINE 20 MG TAB PO SCH (08:55)
[2021-03-26] MEDS: allopurinoL 100 MG TAB PO SCH (08:55)
[2021-03-26] MEDS: COLCHICINE 0.6 MG EACH PO SCH (08:55)
[2021-03-26] MEDS: SYMBICORT 160-4.5 MCG INHALER INHALATION SCH ×2 (09:00→19:05)
[2021-03-26] MEDS: ALBUTEROL HFA INHALER INHALATION SCH ×4 (09:00→19:05)
[2021-03-26] MEDS: INSULIN ASPART (NovoLOG) 100 UNIT/ML VIAL SQ SCH ×8 (09:06→20:47)
[2021-03-26] MEDS: PANTOPRAZOLE 40 MG TABLET PO SCH (09:06)
[2021-03-26] MEDS ORDERED: POTASSIUM CHLORIDE ER 20 MEQ TAB.ER PO STA (10:27)
--- NOTE | 2021-03-26 10:28 | P.PN ---
Subjective Patient is seen in follow-up for chronic kidney disease. Renal function stable. On IV Lasix. Edema improving. Currently on airvo. Denies chest pain or shortness of breath. No active complaints. Hemodynamically stable. No changes overnight. Vital signs are stable. General: The patient appeared well nourished and normally developed. HEENT: Head exam is unremarkable. LUNGS: Breath sounds decreased. HEART: Rate and Rhythm are regular. ABDOMEN: Soft, obese. EXTREMITITES: Lower except is wrapped. 1+ edema. Objective - Vital Signs Vital signs: Vital Signs Temp 97.7 F 03/26/21 05:22 Pulse 72 03/26/21 07:35 Resp 20 03/26/21 07:35 BP 152/74 03/26/21 05:22 Pulse Ox 93 L 03/26/21 09:01 Intake & Output 03/25/21 03/26/21 03/26/21 18:59 06:59 18:59 Weight 95.5 kg Other: Voiding Method Urinal Urinal Urinal # Voids 3 - Labs CBC & Chem 7: 03/26/21 07:51 03/26/21 07:51 Labs: Abnormal Lab Results - Last 24 Hours (Table) 03/25/21 03/25/21 03/25/21 Range/Units 11:04 16:21 20:38 WBC (3.8-10.6) k/uL MCV (80.0-100.0) fL Neutrophils # (1.3-7.7) k/uL Lymphocytes # (1.0-4.8) k/uL Chloride (98-107) mmol/L Carbon Dioxide (22-30) mmol/L BUN (9-20) mg/dL POC Glucose (mg/dL) 234 H 364 H 188 H (75-99) mg/dL ALT (4-49) U/L Total Protein (6.3-8.2) g/dL Albumin (3.5-5.0) g/dL 03/26/21 03/26/21 03/26/21 Range/Units 04:46 07:10 07:51 WBC 15.0 H (3.8-10.6) k/uL MCV 101.2 H (80.0-100.0) fL Neutrophils # 14.2 H (1.3-7.7) k/uL Lymphocytes # 0.2 L (1.0-4.8) k/uL Chloride (98-107) mmol/L Carbon Dioxide (22-30) mmol/L BUN (9-20) mg/dL POC Glucose (mg/dL) 222 H 207 H (75-99) mg/dL ALT (4-49) U/L Total Protein (6.3-8.2) g/dL Albumin (3.5-5.0) g/dL 03/26/21 Range/Units 07:51 WBC (3.8-10.6) k/uL MCV (80.0-100.0) fL Neutrophils # (1.3-7.7) k/uL Lymphocytes # (1.0-4.8) k/uL Chloride 96 L (98-107) mmol/L Carbon Dioxide 40 H (22-30) mmol/L BUN 56 H (9-20) mg/dL POC Glucose (mg/dL) (75-99) mg/dL ALT 101 H (4-49) U/L Total Protein 5.9 L (6.3-8.2) g/dL Albumin 3.1 L (3.5-5.0) g/dL Assessment and Plan Plan: Assessment: 1. Chronic kidney disease stage III with baseline creatinine 1.2-1.3 secondary to diabetic kidney disease and cardiorenal syndrome. Creatinine stable at 1.14 today. UA benign. 2. Acute on chronic diastolic CHF. 3. Volume overload. Improving with diuresis. 4. Hypokalemia from diuresis. Replaced. Better. 5. COVID-19 pneumonia. Plan: Maintain IV Lasix - plan to transition to oral diuretics tomorrow. Replace potassium - 20 mEq today. Avoid nephrotoxins. Continue to monitor renal function and urine output.
[2021-03-26 11:49] LABS: Glucose,Whole Blood 287 mg/dL (75-99)
[2021-03-26] MEDS ORDERED: BARICITINIB 2 MG TABLET PO SCH (12:00)
[2021-03-26] MEDS: FLUCONAZOLE IN NACL,ISO-OSM 100 MG in SALINE 1 50ML.BAG IVPB SCH (13:24)
[2021-03-26 16:16] LABS: Glucose,Whole Blood 333 mg/dL (75-99)
--- NOTE | 2021-03-26 17:55 | P.PN ---
Subjective Progress Note Date: 03/26/21 Principal diagnosis: Dyspnea This 71-year-old white male patient who follows with Dr. Torres in the pulmonary clinic for his history of advanced COPD on home oxygen patient usually wears 4 L on a regular basis, he is prednisone dependent and usually takes 20 mg on a regular basis, coronary artery disease, diabetes mellitus type 2, previous history of CVA, hypertension, hyperlipidemia, previous history of pneumonia, chronic kidney disease unspecified, sleep apnea, BPH, osteoarthritis. Patient presented to the emergency department on 03/12/2021 for evaluation of worsening dyspnea. Patient had a fever at home up to 101.7F. He saw Dr. Torres on Friday03/09/2021 and his antibiotics were changed. Patient was also given a prednisone taper and was placed on Levaquin. Has chronic swelling in his lower extremities which is unchanged. Of note patient was tested for COVID-19 on 03/02/2021 and was found to be negative. During this visit to the ED he tested positive on 03/12/2021. Patient has been vaccinated against COVID-19. His chest x-ray shows increasing diffuse interstitial opacity, with the possibility of fluid overload/CHF, interstitial pneumonitis, atypical pneumonia or chronic pneumonia. His blood work on admission has been reviewed showing white blood cell count of 12.7, hemoglobin of 12.3, his INR 0.9, sodium is 136, potassium is 4.2, chloride is 97, CO2 31, BUN is 55, creatinine is 1.28, troponin is less than 0.012, proBNP is within normal limits at 206. Patient has been started on Decadron 6 blood gram daily which we will increase to twice daily, he was placed on albuterol and Symbicort, he is on subcutaneous heparin 5000 units every 12 h ours, and the patient is within the window for Remdesivir which she will be started on today. On 03/14/2021 patient seen in follow-up on medical surgical floor, he is breathing comfortably, she is resting in bed, no worsening dyspnea, he is currently on 12 L of oxygen his pulse ox is 92%, does have mildly congested cough, no chest discomfort, blood pressure is stable, his been afebrile. Lower extremity Dopplers showed no evidence of DVT. Today's labs have been reviewed, his white count is 16.9, hemoglobin is 12.8, sodium is 146, the rest of electrolytes are within normal limits, BUN is 40, creatinine is 1.2. LDH was 526, not significantly elevated, CRP was 13.6, follow-up in addition he remains on prophylactic dose Lovenox, he is on Decadron 6 mg twice daily. On 03/15/2021 patient seen in follow-up on medical surgical floor. He is awake and alert, he is currently on 10 L of oxygen, down from 12 L on yesterday's exam, he states his breathing is improving, his coughing less, his been afebrile, hemodynamically stable, no chest discomfort. His been ambulating about the room, tolerates activity well. Today's chest x-ray showing mild cardiomegaly, and stable diffuse interstitial changes and patchy peripheral infiltrates. Today's labs have been reviewed, his white blood cell count is 21.2, hemoglobin is 13.3, his d-dimer is improved and is down to 1.23, sodium is 146, the rest of the electrolytes are within normal limits, BUN is 44, creatinine is 1.3. His LDH is 625, slightly increased from most previous value of 526, CRP is improved and is down to 4.7 on today's labs, pro-calcitonin level is negative 2 at 0.16, and 0.19. Blood cultures have shown no growth. He cur rently continues on Decadron 6 mg twice daily, he is on Lovenox 40 mg once daily, he is on IV Lasix 40 mg every 12 hours, and we started him on the Remdesivir yesterday and today is day 3 of treatment. On 03/16/2021 patient seen in follow-up on medical surgical floor, he is awake and alert, in no acute distress, he states his breathing is about the same, not any worse, however his oxygen demand has increased to 15 L, his pulse ox is 88- 90%, his been afebrile, blood pressures been stable, denies any chest discomfort, no hemoptysis, lung sounds reveal scattered crackles mostly at bilateral bases, his chest x-ray from yesterday showed mild cardiomegaly, diffuse interstitial changes. Patient has been on IV Lasix 40 mg twice daily unfortunately has not fluid balance is very difficult to estimate, his lower extremity edema appears to be slightly better. He continues on Remdesivir, and today is day 4 of treatment. Today's labs have been reviewed, his white count is improving and is down to 16.5, hemoglobin is 12.4, his d-dimer was improving on yesterday's labs, and was down to 1.23, patient remains on prophylactic dose Lovenox 40 mg daily, BUN is 47, creatinine is 1.3, potassium is 3.8, sodium is 141, pro-calcitonin level was negative 2. Blood cultures were negative 2. On 03/18/2021 patient seen in follow-up on medical surgical floor. Patient was noted to be desaturating on high flow nasal cannula and nonrebreather mask due to the low 80s, and he was initially placed on Airvo at 60 L and FiO2 of 90% in addition to a nonrebreather mask and his pulse ox is only 90%. Clinically he states he feels like his breathing is getting better, he looks comfortable, does not appear to be in any acute distress, not using accessory muscles of breathing, he finished his course of Remdesivir, he currently remains on Decadron 6 mg twice daily, Lovenox 20 mg once daily, she denies any chest discomfort, denies any hemoptysis. Today's labs have been reviewed, his white blood cell count is relatively stable at 16.3, hemoglobin is 13.2, his d-dimer is 1.01, sodium is 145, potassium is 4.5, chloride is 101, BUN is 54 creatinine is 1.5., His LDH is stable at 643, and CRP is improved and is down to 1.7, his pro-calcitonin level was negative on 05/16/2020 at 0.19. Blood cultures show no growth. On 03/19/2021 patient seen in follow-up on medical surgical floor, today he is on Airvo at 55 L and FiO2 of 88% in addition to nonrebreather mask, and his pulse ox is 90-91%, and as such his oxygenation requirement has increased He denies worsening dyspnea, he states he is breathing fairly comfortably, minimal wheezing on today's exam, yesterday we switched his IV steroids to IV Solu- Medrol 60 mg every 6 hours, less wheezing, less coughing, no crackles noted. His last chest x-ray from yesterday on 03/18/2021 showed stable cardio megaly, stable diffuse interstitial changes and patchy mid to lower lung peripheral infiltrates likely related to COVID-19 pneumonia. Currently patient is on Baricitinib, IV Solu-Medrol 60 mg every 6 hours, he is on IV Lasix 40 mg every 8 hours, Lovenox 40 mg once daily, he is on home dose colchicine 0.6 mg daily. Vital signs have been stable, his been afebrile. Mild edema in bilateral lower extremities. Today's labs have been reviewed, white blood cell count is improving and is down to 12.5, hemoglobin is 13.4, his neutrophil count is 11.1, leukocyte count of 0.7, electrolytes are unremarkable, B1 is 58 creatinine is 1.4, renal profile slightly improved from yesterday, nephrology is following, his inflammatory markers slightly improved and LDH is down to 612, and CRP is 1.3. On 03/20/2021 patient seen in follow-up on medical surgical floor. He is awake and alert, in no acute distress although still requiring high flow oxygen. He is sitting up in the recliner, currently on Airvo at 55 L and FiO2 of 88% in addition to 100% nonrebreather mask. His lung sounds are improved, he is less wheezy, no rhonchi, less congested, and he feels like his breathing is improving. Occasional cough, no significant phlegm production. Patient's nonrebreather mask was removed, and patient is maintaining O2 saturations at 95% on just Airvo at 55 L and FiO2 of 85%. Afebrile. Currently patient is on Baricitinib, IV Solu-Medrol 60 mg every 6 hours, he is on IV Lasix 40 mg every 12 hours, Lovenox 40 mg once daily, he is on home dose colchicine 0.6 mg daily. Vital signs have been stable, his been afebrile. Mild edema in bilateral lower extremities. No new chest x-ray today. Patient continues to diurese, he is in -880 mL net fluid balance over the last 24 hours, lower extremity edema is improving, breathing is improving. Today's labs have been reviewed, sodium is 138, potassium is 3.8, chloride is 97, CO2 is 34, B1 is 66 creatinine 1.3. On 03/26/2021 patient seen in follow-up on medical surgical floor. He is resting comfortably in the recliner, he remains on Airvo by 1574%, he is not requiring nonrebreather mask, breathing comfortably, he responds appropriately, does not appear to be in any acute distress, no complaint of chest pain, lung sounds are positive for diffuse rhonchi, still has mild chest congestion. Currently remains on Symbicort, Ventolin, he is on IV steroids 60 mg every 6 hours of Solu-Medrol, Baricitinib remains on hold related to low ALC which is at 0.2. Today's labs have been reviewed, his white blood cell count is improving and is down to 15, hemoglobin is 14.3, sodium is 140, potassium 3.7, chloride is 96, CO2 is 40, B1 is 56 creatinine is 1.14. His Lovenox is a 40 mg daily, she remains on IV diuretics with Lasix 40 mg every 12 hours. No worsening swelling in bilateral lower extremities, overall lower extremity edema has significantly improved, no net fluid balance is available for this shift. Overall his weight is down by 1.9 kg over last 24-48 hours. Objective - Vital Signs Vital signs: Vital Signs Temp 97.6 F 03/26/21 14:00 Pulse 68 03/26/21 14:00 Resp 28 H 03/26/21 14:00 BP 113/55 03/26/21 14:00 Pulse Ox 95 03/26/21 15:02 Intake & Output 03/25/21 03/26/21 03/26/21 18:59 06:59 18:59 Weight 95.5 kg Other: Voiding Method Urinal Urinal Urinal # Voids 3 - Exam GENERAL EXAM: Alert, very pleasant, 71-year-old white male, currently on Airvo at 50 L and FiO2 of 72% and a nonrebreather mask comfortable in no apparent distress. HEAD: Normocephalic/atraumatic. EYES: Normal reaction of pupils, equal size. Conjunctiva pink, sclera white. NOSE: Clear with pink turbinates. THROAT: No erythema or exudates. NECK: No masses, no JVD, no thyroid enlargement, no adenopathy. CHEST: No chest wall deformity. Symmetrical expansion. LUNGS: Equal air entry with diffuse crackles, and a few rhonchi CVS: Regular rate and rhythm, normal S1 and S2, no gallops, no murmurs, no rubs ABDOMEN: Soft, nontender. No hepatosplenomegaly, normal bowel sounds, no guarding or rigidity. EXTREMITIES: No clubbing, plus lower extremity edema with chronic venous stasis, no cyanosis, 2+ pulses and upper and lower extremities. MUSCULOSKELETAL: Muscle strength and tone normal. SPINE: No scoliosis or deformity SKIN: No rashes CENTRAL NERVOUS SYSTEM: Alert and oriented -3. No focal deficits, tone is normal in all 4 extremities. PSYCHIATRIC: Alert and oriented -3. Appropriate affect. Intact judgment and insight. - Labs CBC & Chem 7: 03/26/21 07:51 03/26/21 07:51 Labs: Abnormal Lab Results - Last 24 Hours (Table) 03/25/21 03/26/21 03/26/21 Range/Units 20:38 04:46 07:10 WBC (3.8-10.6) k/uL MCV (80.0-100.0) fL Neutrophils # (1.3-7.7) k/uL Lymphocytes # (1.0-4.8) k/uL Chloride (98-107) mmol/L Carbon Dioxide (22-30) mmol/L BUN (9-20) mg/dL POC Glucose (mg/dL) 188 H 222 H 207 H (75-99) mg/dL ALT (4-49) U/L Total Protein (6.3-8.2) g/dL Albumin (3.5-5.0) g/dL 03/26/21 03/26/21 03/26/21 Range/Units 07:51 07:51 11:47 WBC 15.0 H (3.8-10.6) k/uL MCV 101.2 H (80.0-100.0) fL Neutrophils # 14.2 H (1.3-7.7) k/uL Lymphocytes # 0.2 L (1.0-4.8) k/uL Chloride 96 L (98-107) mmol/L Carbon Dioxide 40 H (22-30) mmol/L BUN 56 H (9-20) mg/dL POC Glucose (mg/dL) 287 H (75-99) mg/dL ALT 101 H (4-49) U/L Total Protein 5.9 L (6.3-8.2) g/dL Albumin 3.1 L (3.5-5.0) g/dL 03/26/21 Range/Units 16:15 WBC (3.8-10.6) k/uL MCV (80.0-100.0) fL Neutrophils # (1.3-7.7) k/uL Lymphocytes # (1.0-4.8) k/uL Chloride (98-107) mmol/L Carbon Dioxide (22-30) mmol/L BUN (9-20) mg/dL POC Glucose (mg/dL) 333 H (75-99) mg/dL ALT (4-49) U/L Total Protein (6.3-8.2) g/dL Albumin (3.5-5.0) g/dL Assessment and Plan Plan: Assessment: #1. Acute on chronic hypoxic respiratory failure related to acute COVID-19 related pneumonia, patient tested positive on 03/12/2021. Patient is vaccinated against COVID-19. His symptoms have worsened over last week, patient will be started on Remdesivir today on 03/13/2021, patient completed Remdesivir on 03/17/2021. Today his oxygenation is worse, and patient was placed on Airvo and nonrebreather and on Baricitinib since 03/18/2021, which was placed on hold on 03/25/2021 related to low ALC level #2. Acute exacerbation of COPD #3. Chronic COPD, advanced, with a baseline FEV1 of 1.71 L or FEV1 of 58% usually on home oxygen at 4 L #4. Recent 2 hospitalizations for acute exacerbation of COPD in early February, during which patient tested negative for COVID-19, urinalysis was also negative, influenza A and B were negative #5. Diabetes mellitus type 2 #6. Hypertension, #7. Hyperlipidemia #8. History of coronary artery disease with previous stenting #9. History of CHF, unspecified #10. History of CVA/TIA #11. Osteoarthritis #12. Chronic knee disease, unspecified #13. Chronic venous insufficiency #14. 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 Sleep apnea does not wear CPAP #17. Marijuana use #18. Elevated d-dimer related to acute COVID-19 infection, we'll obtain lower extremity Dopplers and will consider CT angiogram of the chest Plan: Overall oxygenation has been improving gradually, patient still requiring Airvo but the flow and FiO2 are being weaned down and are currently at 50 L and FiO2 of 72% Continue with IV Solu-Medrol Continue IV diuretics Accurate intake and output Electrolytes and renal profile tomorrow Continue Lovenox Follow-up d-dimer inflammatory markers Baricitinib remains on hold, ALC level remains low Will continue to follow his clinical course I performed a history & physical examination of the patient and discussed their management with my nurse practitioner, Skylar Mckoy. I reviewed the nurse practitioner's note and agree with the documented findings and plan of care. Lung sounds are positive for crackles and rhonchi throughout the lung [place]. The findings and the impression was discussed with the patient. I attest to the documentation by the nurse practitioner. Time with Patient: Less than 30
[2021-03-26 19:58] LABS: Glucose,Whole Blood 340 mg/dL (75-99)
[2021-03-26] MEDS: METOPROLOL TARTRATE 25 MG TAB PO SCH (20:43)
[2021-03-26] MEDS: PRAMIPEXOLE 1 MG TAB PO SCH (20:44)
[2021-03-26] MEDS: INSULIN DETEMIR (LEVEMIR) 100 UNIT/ML SYR SQ SCH (20:44)
[2021-03-27] MEDS: methylPREDNISolone SOD SUCCI 125 MG/2 ML VIAL IV SCH ×4 (01:25→20:51)
[2021-03-27] MEDS: ISOSORBIDE MONONITRATE ER 30 MG TAB.ER.24H PO SCH (06:02)
[2021-03-27] MEDS: QUEtiapine 25 MG TAB PO SCH ×2 (06:02→20:30)
[2021-03-27] MEDS: TAMSULOSIN 0.4 MG CAP.ER.24H PO SCH (06:02)
[2021-03-27] MEDS: COLCHICINE 0.6 MG EACH PO SCH (06:02)
[2021-03-27] MEDS: METOPROLOL TARTRATE 50 MG TAB PO SCH (06:02)
[2021-03-27] MEDS: ASPIRIN 81 MG PO SCH (06:02)
[2021-03-27] MEDS: allopurinoL 100 MG TAB PO SCH (06:02)
[2021-03-27 06:58] LABS: Basophils % (A) 0 %; Eosinophils % (A) 0 %; HCT 43.7 % (39.0-53.0); Lymphocytes # (A) 0.2 k/uL (1.0-4.8); Lymphocytes % (A) 1 %; MCH 32.2 pg (25.0-35.0); MCV 100.7 fL (80.0-100.0); Macrocytosis Slight; Mean Platelet Volume 10.5; Monocytes # (A) 0.5 k/uL (0-1.0); Monocytes % (A) 4 %; Neutrophils # (A) 13.3 k/uL (1.3-7.7); Neutrophils % (A) 95 %; Platelet Count 188 k/uL (150-450); RBC 4.34 m/uL (4.30-5.90); RDW 14.4 % (11.5-15.5)
[2021-03-27 07:15] LABS: Glucose,Whole Blood 80 mg/dL (75-99)
[2021-03-27 07:15] LABS: ALT 119 U/L (4-49); AST 54 U/L (17-59); African American GFR (CKD) 82 (>60 ml/min/1.73 sqM); Albumin/Globulin Ratio 1.1; Alkaline Phosphatase 123 U/L (38-126); Anion Gap 4 mmol/L; Blood Urea Nitrogen 53 mg/dL (9-20); Calcium 8.5 mg/dL (8.4-10.2); Carbon Dioxide 39 mmol/L (22-30); Chloride 96 mmol/L (98-107); Globulin 2.8 g/dL; Glucose 86 mg/dL (74-99); LDH 1376 U/L (313-618); Magnesium 2.3 mg/dL (1.6-2.3); Non-African American GFR(CKD) 71 (>60 ml/min/1.73 sqM); Potassium 3.4 mmol/L (3.5-5.1); Sodium 139 mmol/L (137-145); Total Bilirubin 0.8 mg/dL (0.2-1.3); Total Protein 5.8 g/dL (6.3-8.2)
[2021-03-27] MEDS: INSULIN ASPART (NovoLOG) 100 UNIT/ML VIAL SQ SCH ×8 (07:33→21:50)
[2021-03-27] MEDS: FUROSEMIDE 10 MG/ML 4 ML VIAL IV SCH (08:18)
[2021-03-27] MEDS: ASCORBIC ACID 500 MG TAB PO SCH ×2 (08:18→20:51)
[2021-03-27] MEDS: NYSTATIN 100,000 UNIT/ML SUSP 500,000 UNIT/5 ML CUP PO SCH ×4 (08:18→20:51)
[2021-03-27] MEDS: FAMOTIDINE 20 MG TAB PO SCH (08:18)
[2021-03-27] MEDS: ZINC SULFATE 220 MG CAP PO SCH (08:18)
[2021-03-27] MEDS: PANTOPRAZOLE 40 MG TABLET PO SCH (08:18)
[2021-03-27] MEDS: CHOLECALCIFEROL 125 MCG (5000 IU) TABLET PO SCH (08:18)
[2021-03-27] MEDS: ENOXAPARIN 40 MG/0.4 ML SYRINGE SQ SCH (08:19)
[2021-03-27] MEDS: ALBUTEROL HFA INHALER INHALATION SCH ×4 (08:30→20:44)
[2021-03-27] MEDS: SYMBICORT 160-4.5 MCG INHALER INHALATION SCH ×2 (08:30→20:44)
[2021-03-27] MEDS ORDERED: POTASSIUM CHLORIDE ER 20 MEQ TAB.ER PO STA (10:23)
--- NOTE | 2021-03-27 10:24 | P.PN ---
Subjective Patient is seen in follow-up for chronic kidney disease. Renal function stable. On IV Lasix. Edema improving. Currently on airvo. Denies chest pain or shortness of breath. No active complaints. Hemodynamically stable. No changes overnight. Vital signs are stable. General: The patient appeared well nourished and normally developed. HEENT: Head exam is unremarkable. LUNGS: Breath sounds decreased. HEART: Rate and Rhythm are regular. ABDOMEN: Soft, obese. EXTREMITITES: Lower except is wrapped. 1+ edema. Objective - Vital Signs Vital signs: Vital Signs Temp 97.6 F 03/27/21 05:26 Pulse 64 03/27/21 05:26 Resp 21 03/27/21 05:26 BP 152/80 03/27/21 05:26 Pulse Ox 97 03/27/21 08:31 Intake & Output 03/26/21 03/27/21 03/27/21 18:59 06:59 18:59 Output Total 1050 Balance -1050 Weight 95.2 kg Output: Urine 1050 Other: Voiding Method Urinal - Labs CBC & Chem 7: 03/27/21 06:27 03/27/21 06:27 Labs: Abnormal Lab Results - Last 24 Hours (Table) 03/26/21 03/26/21 03/26/21 Range/Units 11:47 16:15 19:56 WBC (3.8-10.6) k/uL MCV (80.0-100.0) fL Neutrophils # (1.3-7.7) k/uL Lymphocytes # (1.0-4.8) k/uL D-Dimer (<0.60) mg/L FEU Potassium (3.5-5.1) mmol/L Chloride (98-107) mmol/L Carbon Dioxide (22-30) mmol/L BUN (9-20) mg/dL POC Glucose (mg/dL) 287 H 333 H 340 H (75-99) mg/dL ALT (4-49) U/L Lactate Dehydrogenase (313-618) U/L C-Reactive Protein (<1.0) mg/dL Total Protein (6.3-8.2) g/dL Albumin (3.5-5.0) g/dL 03/27/21 03/27/21 03/27/21 Range/Units 06:27 06:27 06:27 WBC 14.0 H (3.8-10.6) k/uL MCV 100.7 H (80.0-100.0) fL Neutrophils # 13.3 H (1.3-7.7) k/uL Lymphocytes # 0.2 L (1.0-4.8) k/uL D-Dimer 1.10 H (<0.60) mg/L FEU Potassium 3.4 L (3.5-5.1) mmol/L Chloride 96 L (98-107) mmol/L Carbon Dioxide 39 H (22-30) mmol/L BUN 53 H (9-20) mg/dL POC Glucose (mg/dL) (75-99) mg/dL ALT 119 H (4-49) U/L Lactate Dehydrogenase 1376 H (313-618) U/L C-Reactive Protein 2.0 H (<1.0) mg/dL Total Protein 5.8 L (6.3-8.2) g/dL Albumin 3.0 L (3.5-5.0) g/dL Assessment and Plan Plan: Assessment: 1. Chronic kidney disease stage III with baseline creatinine 1.2-1.3 secondary to diabetic kidney disease and cardiorenal syndrome. Creatinine stable at 1.05 today. UA benign. 2. Acute on chronic diastolic CHF. 3. Volume overload. Improving with diuresis. 4. Hypokalemia from diuresis. 5. COVID-19 pneumonia. Plan: Stop IV Lasix. Start torsemide 20 mg once daily. Replace potassium - 40 mEq today. Avoid nephrotoxins. Continue to monitor renal function and urine output.
--- NOTE | 2021-03-27 11:14 | P.PN ---
Subjective Progress Note Date: 03/26/21 Principal diagnosis: Acute on chronic hypoxic respiratory failure secondary to COVID-19 pneumonia Patient is a 71-year-old white male with a chronic medical problems a chronic hypoxic respiratory failure uses about 4 L of oxygen at home came in the with complaints of shortness of breath and cough restarted couple days ago was also having fever restarted couple days ago. Patient is found to have COVID-19 patient has multiple other medical problems chronically and patient does have history of COPD possible chronic diastolic dysfunction patient was on IV Lasix in the past. 03/13/2021 Patient evaluated today sitting on the edge of the bed. He is requiring oxygen at 7L HF with a saturation of 91%. Blood pressure 148/76, heart rate 74, temp 98.2. Labs today include WBC of 13.08, hgb 12.3, sodium 143, potassium 4.0, AST 55, ALT 94, LDH 526, CRP 13.60. DD 5.97, doppler negative for bilateral DVT. Pulmonary consultation today who increased decadron to twice a day and started the patient on remdesivir. Patient is also on subcu heparin, zinc, vitamins. 03/14/2021 Patient has been able to ambulate around his room while on oxygen. Vital signs included temperature of 91, heart rate 66 sinus rhythm, respirations 18, blood pressure 139/65 and he is 90% on 12 L high flow nasal cannula. Oxygen saturation has been progressively increasing. Labs today show a white count of 16.99, hemoglobin 12.8, sodium 146, glucose in the 70s, AST 68, ALT 96. Will repeat a chest x-ray in the morning as well as repeat labs and inflammatory markers. He continues on Lovenox, zinc, vitamins, he was started on IV remdesivir from pulmonary services today. Procalcitonin pending. Apparently patient has been refusing ketorolac eyedrops as he states that he is done taking outpatient; discontinued the order. 03/15/2021 Patient says he is feeling better patient the arms and requirements went up yesterday was on 10 L now came down to 8 L patient overall feels better but as per the nursing staff patient has been occasionally getting confused which is not unexpected for for him as he had sundowners in the past and patient is also on stress steroids which can do that. Patient was started on IV Lasix because of increased swelling in bilateral lower extremities patient barely takes one 20 mg of by mouth Lasix at home although it was documented as 20 mg. We'll continue with IV Lasix will monitor I's and O's will continue to wean off his oxygen. 03/16/2021 Patient feels better but his oxygen requirements remain the same patient remains on IV Lasix creatinine is around 1.3 compared to 1.2 on admission will continue to closely monitor his kidney function and the input and output. Patient remains on IV steroids blood sugars are within normal limits leukocytosis improved a bit. 03/17/2021 Patient has occasional confusional episodes during nighttime she is being well managed by Seroquel. The patient is presently on 15 L of oxygen patient swelling in bilateral lower x-ray significantly improved still has some swelling continue with IV Lasix creatinine remained stable at 1.2 serum sodium within normal limits. 03/18/2021 Patient was pretty status is worse today and patient is requiring airvo, patient has significant Swelling in bilateral lower extremities which is a worse compared to yesterday patient is on the Lasix every 12 hourly which will be changed to create hourly and we'll also get the opinion of nephrology testing that his creatinine went up to 1.5. Patient looks tired although patient says he is okay. Patient completed Remdesivir and was started on Barcitinib. 03/19/2021 Patient evaluated today sitting in the edge of the bed. He maintains on an aerosol as well as a nonrebreather. Patient has bilateral lower extremity edema which is [place] wrapped, edema is still +2 pitting above the wraps, he continues on IV lasix Q8. He appears to be about a -2.5 L fluid balance in the last 24 hours. Vital signs reviewed, he is afebrile, heart rate 72, respirations 28, blood pressure 137/75 and he is 90% on a 55 L Airvo with a 100% nonrebreather ma sk. Patient was able to carry on full conversation however once he pauses he does become hypoxic, 87-88%, recovers though. Labs reviewed today include a white count 12.52, hemoglobin 13.4, d-dimer 1.03, sodium 143, potassium 4.2, creatinine 1.4, BUN 58.8. Sugars are in the 200s up to as high as 329, AST is 42, ALT 72 today. LDH is 612, CRP 1.30, which is slightly improved from yesterday. Chest x-ray today shows stable myocardial megaly, stable diffuse interstitial changes and patchy mid and lower lung infiltrates as seen with covid Pneumonia. He continues on Lovenox, vitamins, IV solu-medrol, and baricitinib. He is being followed closely by pulmonary services. Pending nephrology consultation. 03/20/2021 Patient evaluated today sitting up in chair he is on airvo 55L and NRB with an oxygen saturation of 95%, blood pressure 130/74, afebrile, heart rate 89. Labs today sodium 138, potassium 3.8, chloride 97, CO2 34, BUN 66, creatinine 1.30, blood glucose in the 150's today. He states that he feels slightly better than yesterday, although he is requiring alot of oxygen support. He has not had a bowel movement in a few days, he is urinating without difficulty. Has a productive cough. Nephrology has ordered post void residuals. He is also being followed closely by [facility]. Continues on baricitinib, lovenox, zinc, vitamins, solumedrol, bronchodilators. 03/21/2021 patient is currently sitting in the chair. Awake alert and appears to be in no distress. Still requiring Airvo high flow oxygen at 55 L and 85% FiO2 and saturating at 87 to 92%. Patient is being pending IV Solu-Medrol, valacyclovir and Lovenox subcu and multivitamin supplementation. Laboratory data showed WBC 3.4 hemoglobin 13.9 and platelets 145 sodium 141 potassium 3.4 creatinine 1.4 AST 35 and ALT 68. Pulmonary is on board. 03/22/2021 patient is currently sitting wheelchair. Awake alert and oriented. Appears to be mild distress. Requiring high flow oxygen at 60 L and FiO2 85%. Otherwise patient is being current on IV Solu-Medrol and valacyclovir and Lovenox subcu. Laboratory data showed WBC 18.6 hemoglobin 13.7 and platelets 133 sodium 143 potassium 3.6 creatinine 1.4 LDH 597 and CRP less than 0.3. Patient is able to tolerate oral diet. No nausea vomiting abdominal pain or diarrhea. Denies any dysuria or hematuria. 03/23/2021 patient is currently sitting in the chair comfortably. Awake alert and oriented x3. Denies any complaints of chest pain or worsening shortness breath. Requ iring high flow oxygen at 55 L and FiO2 85%. Patient is being current on IV Solu-Medrol baricitinib is on hold due to low absolute lymphocyte count. Lymphocytes 0.1 Laboratory data showed WBC 26.0 hemoglobin 14.4 and platelets 154 sodium 139 potassium 3.2 chloride 98 BUN 65 and creatinine 1.22 patient is also Lovenox subcu and multivitamin supplementation 03/24/2021 patient is currently in the medical floor. Sitting in the chair comfortably. Mild cough. Otherwise overall clinically improving. Still requiring high flow oxygen 55 L at 80% FiO2. Able to tolerate oral diet. Patient is being continued on IV Solu-Medrol, Lovenox and multivitamin supplementation. Laboratory data showed WBC 22.1 hemoglobin 14.0 and platelets 152 sodium 138 potassium 3.3 chloride 97 bicarb is 34 BUN 65 and creatinine 1.23 03/25/2021 Patient is currently sitting in the chair comfortably. Awake alert and orie nted. No complaints of chest pain or worsening shortness breath. Still requiring high flow oxygen at 50 L 80% FiO2. Patient is being current IV Solu-Medrol and Lovenox subcu. Baricitinib is on hold due to low absolute lymphocyte l count. Patient is also on Lasix 40 mg every 12. Laboratory data showed WBC 19.8 hemoglobin 14.1 platelets 164 BUN 16 creatinine 1.13 and blood sugar was 48 this morning. 03/26/2021 Patient is currently sitting in the chair. Maintained on Airvo high flow oxygen with FiO2 77% and 50 L. Saturating at 91%. Currently being continued on IV Solu-Medrol and baricitinib remains on hold due to low absolute lymphocyte count. Patient is also being current on IV Lasix 40 mg every 12. Laboratory data showed WBC 15.0 hemoglobin 14.3 and platelets 163 BUN 56 and creatinine 1.14. Bilateral scattered coarse sounds are still present.shortness of breath with exertion. Patient has been afebrile. ROS Constitutional: Denied any fatigue denied any fever. Cardio vascular: denied any chest pain, palpitations Gastrointestinal denied any nausea vomiting Pulmonary: Reports shortness of breath with exertion, mild at rest, reports cough Neurologic denied any new focal deficits All inpatient medications were reviewed and appropriate changes in these medications as dictated in the interval history and assessment and plan. Objective - Vital Signs Vital signs: Vital Signs Temp 97.6 F 03/26/21 22:06 Pulse 75 03/26/21 22:06 Resp 22 03/26/21 22:06 BP 148/63 03/26/21 22:06 Pulse Ox 95 03/26/21 22:06 Intake & Output 03/26/21 03/26/21 03/27/21 06:59 18:59 06:59 Output Total 500 Balance -500 Weight 95.5 kg Output: Urine 500 Other: Voiding Method Urinal Urinal # Voids 3 - Exam PHYSICAL EXAMINATION: GENERAL: The patient is alert and oriented x3, fatigues easy with activity even when talking HEENT: Pupils are round and equally reacting to light. EOMI. No scleral icterus. No conjunctival pallor. Normocephalic, atraumatic. No pharyngeal erythema. No thyromegaly. CARDIOVASCULAR: S1 and S2 present. No murmurs, rubs, or gallops. PULMONARY: Coarse scattered rhonchi throughout ABDOMEN: Soft, nontender, nondistended, normoactive bowel sounds. No palpable organomegaly. MUSCULOSKELETAL: No joint swelling or deformity. EXTREMITIES: No cyanosis, clubbing, +2 peripheral edema legs [place] wrapped. NEUROLOGICAL: Gross neurological examination did not reveal any focal deficits. SKIN: No rashes. - Labs CBC & Chem 7: 03/27/21 06:27 03/27/21 06:27 Labs: Abnormal Lab Results - Last 24 Hours (Table) 03/26/21 03/26/21 03/26/21 Range/Units 04:46 07:10 07:51 WBC 15.0 H (3.8-10.6) k/uL MCV 101.2 H (80.0-100.0) fL Neutrophils # 14.2 H (1.3-7.7) k/uL Lymphocytes # 0.2 L (1.0-4.8) k/uL Chloride (98-107) mmol/L Carbon Dioxide (22-30) mmol/L BUN (9-20) mg/dL POC Glucose (mg/dL) 222 H 207 H (75-99) mg/dL ALT (4-49) U/L Total Protein (6.3-8.2) g/dL Albumin (3.5-5.0) g/dL 0103/26/21 03/26/21 Range/Units 07:51 11:47 16:15 WBC (3.8-10.6) k/uL MCV (80.0-100.0) fL Neutrophils # (1.3-7.7) k/uL Lymphocytes # (1.0-4.8) k/uL Chloride 96 L (98-107) mmol/L Carbon Dioxide 40 H (22-30) mmol/L BUN 56 H (9-20) mg/dL POC Glucose (mg/dL) 287 H 333 H (75-99) mg/dL ALT 101 H (4-49) U/L Total Protein 5.9 L (6.3-8.2) g/dL Albumin 3.1 L (3.5-5.0) g/dL 03/26/21 Range/Units 19:56 WBC (3.8-10.6) k/uL MCV (80.0-100.0) fL Neutrophils # (1.3-7.7) k/uL Lymphocytes # (1.0-4.8) k/uL Chloride (98-107) mmol/L Carbon Dioxide (22-30) mmol/L BUN (9-20) mg/dL POC Glucose (mg/dL) 340 H (75-99) mg/dL ALT (4-49) U/L Total Protein (6.3-8.2) g/dL Albumin (3.5-5.0) g/dL Assessment and Plan Assessment: Assessment and plan -Acute on chronic hypoxic respiratory failure secondary to COVID-19 pneumonia wears 4L of oxygen at home, on Airvo now - Covid 19 pneumonia. He on steroids and Barcitinib, Remdesivir -Leukocytosis secondary to above -Congestive heart failure chronic diastolic dysfunction with acute exacerbation at this time patient the BNP is only 206, most recent echo shows an EF of greater than 55%. on IV lasix -acute renal failure: Probably secondary to heart failure, on IV lasix -Acute COPD exacerbation -Mild transaminitis which is better at compared to his previous admission, chronic no further intervention at this time COVID-19 can cause transaminitis is Possible congestive heart failure chronic diastolic dysfunction with mild acute exacerbation -Elevated inflammatory markers of COVID-19 -Elevated DD secondary to COVID-19 infection, doppler negative for bilateral DVT -Chronic kidney disease stage III -Gastroesophageal reflux disease -Coronary artery disease -Type 2 diabetes mellitus insulin-dependent, exacerbated by steroids -Diabetic peripheral neuropathy -Obstructive sleep apnea -Chronic hypoxic respiratory failure Secondary to COPD and the sleep apnea -Hypertension -Hyperlipidemia -Benign prostatic hypertrophy -Chronic low back pain -History of DVT in the past for which patient is on not on any anti-coagulation presently DVT prophylaxis: Lovenox GI Prophylaxis: Protonix Plan Continue Solu-medrol, zinc, vitamins, lovenox,Baricitinib on hold due to low ALC Continue bronchodilators Adjust insulin Continue all other supportive care Repeat labs tomorrow Prognosis is guarded for this patient. Time with Patient: Greater than 30
[2021-03-27 11:52] LABS: Glucose,Whole Blood 300 mg/dL (75-99)
[2021-03-27] MEDS: FLUCONAZOLE IN NACL,ISO-OSM 100 MG in SALINE 1 50ML.BAG IVPB SCH (12:53)
[2021-03-27] MEDS: TORSEMIDE 20 MG TAB PO SCH (12:53)
[2021-03-27 17:05] LABS: Glucose,Whole Blood 209 mg/dL (75-99)
--- NOTE | 2021-03-27 17:19 | P.PN ---
Subjective Progress Note Date: 03/27/21 Principal diagnosis: Dyspnea This 71-year-old white male patient who follows with Dr. Torres in the pulmonary clinic for his history of advanced COPD on home oxygen patient usually wears 4 L on a regular basis, he is prednisone dependent and usually takes 20 mg on a regular basis, coronary artery disease, diabetes mellitus type 2, previous history of CVA, hypertension, hyperlipidemia, previous history of pneumonia, chronic kidney disease unspecified, sleep apnea, BPH, osteoarthritis. Patient presented to the emergency department on 03/12/2021 for evaluation of worsening dyspnea. Patient had a fever at home up to 101.7F. He saw Dr. Torres on Friday03/09/2021 and his antibiotics were changed. Patient was also given a prednisone taper and was placed on Levaquin. Has chronic swelling in his lower extremities which is unchanged. Of note patient was tested for COVID-19 on 03/02/2021 and was found to be negative. During this visit to the ED he tested positive on 03/12/2021. Patient has been vaccinated against COVID-19. His chest x-ray shows increasing diffuse interstitial opacity, with the possibility of fluid overload/CHF, interstitial pneumonitis, atypical pneumonia or chronic pneumonia. His blood work on admission has been reviewed showing white blood cell count of 12.7, hemoglobin of 12.3, his INR 0.9, sodium is 136, potassium is 4.2, chloride is 97, CO2 31, BUN is 55, creatinine is 1.28, troponin is less than 0.012, proBNP is within normal limits at 206. Patient has been started on Decadron 6 blood gram daily which we will increase to twice daily, he was placed on albuterol and Symbicort, he is on subcutaneous heparin 5000 units every 12 h ours, and the patient is within the window for Remdesivir which she will be started on today. On 03/14/2021 patient seen in follow-up on medical surgical floor, he is breathing comfortably, she is resting in bed, no worsening dyspnea, he is currently on 12 L of oxygen his pulse ox is 92%, does have mildly congested cough, no chest discomfort, blood pressure is stable, his been afebrile. Lower extremity Dopplers showed no evidence of DVT. Today's labs have been reviewed, his white count is 16.9, hemoglobin is 12.8, sodium is 146, the rest of electrolytes are within normal limits, BUN is 40, creatinine is 1.2. LDH was 526, not significantly elevated, CRP was 13.6, follow-up in addition he remains on prophylactic dose Lovenox, he is on Decadron 6 mg twice daily. On 03/15/2021 patient seen in follow-up on medical surgical floor. He is awake and alert, he is currently on 10 L of oxygen, down from 12 L on yesterday's exam, he states his breathing is improving, his coughing less, his been afebrile, hemodynamically stable, no chest discomfort. His been ambulating about the room, tolerates activity well. Today's chest x-ray showing mild cardiomegaly, and stable diffuse interstitial changes and patchy peripheral infiltrates. Today's labs have been reviewed, his white blood cell count is 21.2, hemoglobin is 13.3, his d-dimer is improved and is down to 1.23, sodium is 146, the rest of the electrolytes are within normal limits, BUN is 44, creatinine is 1.3. His LDH is 625, slightly increased from most previous value of 526, CRP is improved and is down to 4.7 on today's labs, pro-calcitonin level is negative 2 at 0.16, and 0.19. Blood cultures have shown no growth. He cur rently continues on Decadron 6 mg twice daily, he is on Lovenox 40 mg once daily, he is on IV Lasix 40 mg every 12 hours, and we started him on the Remdesivir yesterday and today is day 3 of treatment. On 03/16/2021 patient seen in follow-up on medical surgical floor, he is awake and alert, in no acute distress, he states his breathing is about the same, not any worse, however his oxygen demand has increased to 15 L, his pulse ox is 88- 90%, his been afebrile, blood pressures been stable, denies any chest discomfort, no hemoptysis, lung sounds reveal scattered crackles mostly at bilateral bases, his chest x-ray from yesterday showed mild cardiomegaly, diffuse interstitial changes. Patient has been on IV Lasix 40 mg twice daily unfortunately has not fluid balance is very difficult to estimate, his lower extremity edema appears to be slightly better. He continues on Remdesivir, and today is day 4 of treatment. Today's labs have been reviewed, his white count is improving and is down to 16.5, hemoglobin is 12.4, his d-dimer was improving on yesterday's labs, and was down to 1.23, patient remains on prophylactic dose Lovenox 40 mg daily, BUN is 47, creatinine is 1.3, potassium is 3.8, sodium is 141, pro-calcitonin level was negative 2. Blood cultures were negative 2. On 03/18/2021 patient seen in follow-up on medical surgical floor. Patient was noted to be desaturating on high flow nasal cannula and nonrebreather mask due to the low 80s, and he was initially placed on Airvo at 60 L and FiO2 of 90% in addition to a nonrebreather mask and his pulse ox is only 90%. Clinically he states he feels like his breathing is getting better, he looks comfortable, does not appear to be in any acute distress, not using accessory muscles of breathing, he finished his course of Remdesivir, he currently remains on Decadron 6 mg twice daily, Lovenox 20 mg once daily, she denies any chest discomfort, denies any hemoptysis. Today's labs have been reviewed, his white blood cell count is relatively stable at 16.3, hemoglobin is 13.2, his d-dimer is 1.01, sodium is 145, potassium is 4.5, chloride is 101, BUN is 54 creatinine is 1.5., His LDH is stable at 643, and CRP is improved and is down to 1.7, his pro-calcitonin level was negative on 05/16/2020 at 0.19. Blood cultures show no growth. On 03/19/2021 patient seen in follow-up on medical surgical floor, today he is on Airvo at 55 L and FiO2 of 88% in addition to nonrebreather mask, and his pulse ox is 90-91%, and as such his oxygenation requirement has increased He denies worsening dyspnea, he states he is breathing fairly comfortably, minimal wheezing on today's exam, yesterday we switched his IV steroids to IV Solu- Medrol 60 mg every 6 hours, less wheezing, less coughing, no crackles noted. His last chest x-ray from yesterday on 03/18/2021 showed stable cardio megaly, stable diffuse interstitial changes and patchy mid to lower lung peripheral infiltrates likely related to COVID-19 pneumonia. Currently patient is on Baricitinib, IV Solu-Medrol 60 mg every 6 hours, he is on IV Lasix 40 mg every 8 hours, Lovenox 40 mg once daily, he is on home dose colchicine 0.6 mg daily. Vital signs have been stable, his been afebrile. Mild edema in bilateral lower extremities. Today's labs have been reviewed, white blood cell count is improving and is down to 12.5, hemoglobin is 13.4, his neutrophil count is 11.1, leukocyte count of 0.7, electrolytes are unremarkable, B1 is 58 creatinine is 1.4, renal profile slightly improved from yesterday, nephrology is following, his inflammatory markers slightly improved and LDH is down to 612, and CRP is 1.3. On 03/20/2021 patient seen in follow-up on medical surgical floor. He is awake and alert, in no acute distress although still requiring high flow oxygen. He is sitting up in the recliner, currently on Airvo at 55 L and FiO2 of 88% in addition to 100% nonrebreather mask. His lung sounds are improved, he is less wheezy, no rhonchi, less congested, and he feels like his breathing is improving. Occasional cough, no significant phlegm production. Patient's nonrebreather mask was removed, and patient is maintaining O2 saturations at 95% on just Airvo at 55 L and FiO2 of 85%. Afebrile. Currently patient is on Baricitinib, IV Solu-Medrol 60 mg every 6 hours, he is on IV Lasix 40 mg every 12 hours, Lovenox 40 mg once daily, he is on home dose colchicine 0.6 mg daily. Vital signs have been stable, his been afebrile. Mild edema in bilateral lower extremities. No new chest x-ray today. Patient continues to diurese, he is in -880 mL net fluid balance over the last 24 hours, lower extremity edema is improving, breathing is improving. Today's labs have been reviewed, sodium is 138, potassium is 3.8, chloride is 97, CO2 is 34, B1 is 66 creatinine 1.3. On 03/26/2021 patient seen in follow-up on medical surgical floor. He is resting comfortably in the recliner, he remains on Airvo by 1574%, he is not requiring nonrebreather mask, breathing comfortably, he responds appropriately, does not appear to be in any acute distress, no complaint of chest pain, lung sounds are positive for diffuse rhonchi, still has mild chest congestion. Currently remains on Symbicort, Ventolin, he is on IV steroids 60 mg every 6 hours of Solu-Medrol, Baricitinib remains on hold related to low ALC which is at 0.2. Today's labs have been reviewed, his white blood cell count is improving and is down to 15, hemoglobin is 14.3, sodium is 140, potassium 3.7, chloride is 96, CO2 is 40, B1 is 56 creatinine is 1.14. His Lovenox is a 40 mg daily, she remains on IV diuretics with Lasix 40 mg every 12 hours. No worsening swelling in bilateral lower extremities, overall lower extremity edema has significantly improved, no net fluid balance is available for this shift. Overall his weight is down by 1.9 kg over last 24-48 hours. on 03/27/2021 patient seen in follow-up on medical surgical floor. Remains on Airvo down to 45 L and FiO2 of 73%, his pulse ox is 92-93%, he does desaturate and has exertional dyspnea. Afebrile. no complaints of chest discomfort, overall seems to be improving. today's labs have been reviewed. White count is improved and is down to 14, hemoglobin is 14, d-dimer is 1.1, sodium is 139, potassium 3.4, BUN is 53, and creatinine is 1.05. Baricitinib remains on hold, and absolute lymphocyte count remains low at 0.2. Continues on Lovenox 40 mg daily, continues on multivitamins and IV steroids at 60 mg every 6 hours.nephrology is following and his IV Lasix has been replaced with torsemide.he is in -1050 ML note fluid balance over the last 24 hours Objective - Vital Signs Vital signs: Vital Signs Temp 98.2 F 03/27/21 14:00 Pulse 74 03/27/21 14:00 Resp 20 03/27/21 14:00 BP 145/75 03/27/21 14:00 Pulse Ox 93 L 03/27/21 14:00 Intake & Output 03/26/21 03/27/21 03/27/21 18:59 06:59 18:59 Output Total 1050 Balance -1050 Weight 95.2 kg Output: Urine 1050 Other: Voiding Method Urinal Urinal - Exam GENERAL EXAM: Alert, very pleasant, 71-year-old white male, currently on Airvo at 45 L and FiO2 of 72% comfortable in no apparent distress. HEAD: Normocephalic/atraumatic. EYES: Normal reaction of pupils, equal size. Conjunctiva pink, sclera white. NOSE: Clear with pink turbinates. THROAT: No erythema or exudates. NECK: No masses, no JVD, no thyroid enlargement, no adenopathy. CHEST: No chest wall deformity. Symmetrical expansion. LUNGS: Equal air entry with diffuse crackles, and a few rhonchi CVS: Regular rate and rhythm, normal S1 and S2, no gallops, no murmurs, no rubs ABDOMEN: Soft, nontender. No hepatosplenomegaly, normal bowel sounds, no guarding or rigidity. EXTREMITIES: No clubbing, plus lower extremity edema with chronic venous stasis, no cyanosis, 2+ pulses and upper and lower extremities. MUSCULOSKELETAL: Muscle strength and tone normal. SPINE: No scoliosis or deformity SKIN: No rashes CENTRAL NERVOUS SYSTEM: Alert and oriented -3. No focal deficits, tone is normal in all 4 extremities. PSYCHIATRIC: Alert and oriented -3. Appropriate affect. Intact judgment and insight. - Labs CBC & Chem 7: 03/27/21 06:27 03/27/21 06:27 Labs: Abnormal Lab Results - Last 24 Hours (Table) 03/26/21 03/27/21 03/27/21 Range/Units 19:56 06:27 06:27 WBC 14.0 H (3.8-10.6) k/uL MCV 100.7 H (80.0-100.0) fL Neutrophils # 13.3 H (1.3-7.7) k/uL Lymphocytes # 0.2 L (1.0-4.8) k/uL D-Dimer (<0.60) mg/L FEU Potassium 3.4 L (3.5-5.1) mmol/L Chloride 96 L (98-107) mmol/L Carbon Dioxide 39 H (22-30) mmol/L BUN 53 H (9-20) mg/dL POC Glucose (mg/dL) 340 H (75-99) mg/dL ALT 119 H (4-49) U/L Lactate Dehydrogenase 1376 H (313-618) U/L C-Reactive Protein 2.0 H (<1.0) mg/dL Total Protein 5.8 L (6.3-8.2) g/dL Albumin 3.0 L (3.5-5.0) g/dL 03/27/21 03/27/21 03/27/21 Range/Units 06:27 11:50 17:02 WBC (3.8-10.6) k/uL MCV (80.0-100.0) fL Neutrophils # (1.3-7.7) k/uL Lymphocytes # (1.0-4.8) k/uL D-Dimer 1.10 H (<0.60) mg/L FEU Potassium (3.5-5.1) mmol/L Chloride (98-107) mmol/L Carbon Dioxide (22-30) mmol/L BUN (9-20) mg/dL POC Glucose (mg/dL) 300 H 209 H (75-99) mg/dL ALT (4-49) U/L Lactate Dehydrogenase (313-618) U/L C-Reactive Protein (<1.0) mg/dL Total Protein (6.3-8.2) g/dL Albumin (3.5-5.0) g/dL Assessment and Plan Plan: Assessment: #1. Acute on chronic hypoxic respiratory failure related to acute COVID-19 related pneumonia, patient tested positive on 03/12/2021. Patient is vaccinated against COVID-19. His symptoms have worsened over last week, patient will be started on Remdesivir today on 03/13/2021, patient completed Remdesivir on 03/17/2021. Today his oxygenation is worse, and patient was placed on Airvo and nonrebreather and on Baricitinib since 03/18/2021, which was placed on hold on 03/25/2021 related to low ALC level #2. Acute exacerbation of COPD #3. Chronic COPD, advanced, with a baseline FEV1 of 1.71 L or FEV1 of 58% usually on home oxygen at 4 L #4. Recent 2 hospitalizations for acute exacerbation of COPD in early February, during which patient tested negative for COVID-19, urinalysis was also negative, influenza A and B were negative #5. Diabetes mellitus type 2 #6. Hypertension, #7. Hyperlipidemia #8. History of coronary artery disease with previous stenting #9. History of CHF, unspecified #10. History of CVA/TIA #11. Osteoarthritis #12. Chronic knee disease, unspecified #13. Chronic venous insufficiency #14. 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 Sleep apnea does not wear CPAP #17. Marijuana use #18. Elevated d-dimer related to acute COVID-19 infection, we'll obtain lower extremity Dopplers and will consider CT angiogram of the chest Plan: Overall oxygenation has been improving gradually, patient still requiring Airvo but the flow and FiO2 are being weaned down and are currently at 45 L and FiO2 of 72% Continue with IV Solu-Medrol Continue IV diuretics per nephrology recommendations, and patient has been placed on torsemide instead of IV Lasix Baricitinib remains on hold, ALC count remains low Clinically seems to be improving Accurate intake and output Electrolytes and renal profile tomorrow Continue Lovenox Will continue to follow his clinical course I performed a history & physical examination of the patient and discussed their management with my nurse practitioner, Skylar Mckoy. I reviewed the nurse practitioner's note and agree with the documented findings and plan of care. Lung sounds are positive for crackles and rhonchi throughout the lung [place]. The findings and the impression was discussed with the patient. I attest to the documentation by the nurse practitioner. Time with Patient: Less than 30
[2021-03-27 20:07] LABS: Glucose,Whole Blood 155 mg/dL (75-99)
[2021-03-27] MEDS: METOPROLOL TARTRATE 25 MG TAB PO SCH (20:30)
[2021-03-27] MEDS: PRAMIPEXOLE 1 MG TAB PO SCH (20:30)
[2021-03-27] MEDS: INSULIN DETEMIR (LEVEMIR) 100 UNIT/ML SYR SQ SCH (20:51)
[2021-03-28] MEDS: methylPREDNISolone SOD SUCCI 125 MG/2 ML VIAL IV SCH ×4 (01:22→19:38)
[2021-03-28 06:04] LABS: Basophils % (A) 0 %; Eosinophils % (A) 0 %; HGB 14.5 gm/dL (13.0-17.5); Lymphocytes # (A) 0.2 k/uL (1.0-4.8); Lymphocytes % (A) 1 %; MCH 32.5 pg (25.0-35.0); MCHC 32.2 g/dL (31.0-37.0); Macrocytosis Slight; Mean Platelet Volume 10.1; Monocytes # (A) 0.6 k/uL (0-1.0); Monocytes % (A) 4 %; Neutrophils # (A) 14.7 k/uL (1.3-7.7); Neutrophils % (A) 95 %; Platelet Count 177 k/uL (150-450); RBC 4.46 m/uL (4.30-5.90); RDW 14.4 % (11.5-15.5); WBC 15.6 k/uL (3.8-10.6)
--- NOTE | 2021-03-28 06:56 | XR ---
EXAMINATION TYPE: XR chest 1V portable DATE OF EXAM: 03/28/2021 CLINICAL HISTORY: Hypoxia and covid progress study. TECHNIQUE: Single AP portable upright view of the chest is obtained. COMPARISON: Chest x-ray from 4 days earlier FINDINGS: Metallic hardware from right shoulder surgery is partially imaged. Persistent bilateral in creased multifocal opacities on background chronic parenchymal changes. Stable cardiomegaly with athe rosclerotic aorta. IMPRESSION: Cardiomegaly and chronic changes with bilateral multifocal opacities redemonstrated consi stent with covid-19 infection, no significant change from most recent x-ray.
[2021-03-28 07:09] LABS: Glucose,Whole Blood 86 mg/dL (75-99)
[2021-03-28] MEDS: INSULIN ASPART (NovoLOG) 100 UNIT/ML VIAL SQ SCH ×8 (08:16→21:30)
[2021-03-28] MEDS: QUEtiapine 25 MG TAB PO SCH ×2 (08:36→19:38)
[2021-03-28] MEDS: ENOXAPARIN 40 MG/0.4 ML SYRINGE SQ SCH (08:36)
[2021-03-28] MEDS: ASCORBIC ACID 500 MG TAB PO SCH ×2 (08:36→19:38)
[2021-03-28] MEDS: TAMSULOSIN 0.4 MG CAP.ER.24H PO SCH (08:37)
[2021-03-28] MEDS: ISOSORBIDE MONONITRATE ER 30 MG TAB.ER.24H PO SCH (08:37)
[2021-03-28] MEDS: FAMOTIDINE 20 MG TAB PO SCH (08:37)
[2021-03-28] MEDS: ZINC SULFATE 220 MG CAP PO SCH (08:37)
[2021-03-28] MEDS: ASPIRIN 81 MG PO SCH (08:37)
[2021-03-28] MEDS: allopurinoL 100 MG TAB PO SCH (08:37)
[2021-03-28] MEDS: CHOLECALCIFEROL 125 MCG (5000 IU) TABLET PO SCH (08:37)
[2021-03-28] MEDS: METOPROLOL TARTRATE 50 MG TAB PO SCH (08:37)
[2021-03-28] MEDS: PANTOPRAZOLE 40 MG TABLET PO SCH (08:37)
[2021-03-28] MEDS: COLCHICINE 0.6 MG EACH PO SCH (08:38)
[2021-03-28] MEDS: NYSTATIN 100,000 UNIT/ML SUSP 500,000 UNIT/5 ML CUP PO SCH ×4 (08:38→19:37)
[2021-03-28] MEDS: TORSEMIDE 20 MG TAB PO SCH (08:38)
[2021-03-28] MEDS: ALBUTEROL HFA INHALER INHALATION SCH ×4 (08:59→21:35)
[2021-03-28] MEDS: SYMBICORT 160-4.5 MCG INHALER INHALATION SCH ×2 (08:59→21:35)
[2021-03-28 09:31] LABS: African American GFR (CKD) 69.6 (60.0-200.0); Anion Gap 16.2 mmol/L (10.00-18.00); BUN/Creat Ratio 42.58 Ratio (12.00-20.00); Blood Urea Nitrogen 51.1 mg/dL (9.0-27.0); Calcium 8.6 mg/dL (8.7-10.3); Carbon Dioxide 29.8 mmol/L (20.0-27.5); Magnesium 2.1 mg/dL (1.5-2.4); Non-African American GFR(CKD) 60.1 (60.0-200.0); Potassium 3.7 mmol/L (3.5-5.5)
[2021-03-28] MEDS ORDERED: POTASSIUM CHLORIDE ER 20 MEQ TAB.ER PO STA (10:01)
--- NOTE | 2021-03-28 10:02 | P.PN ---
Subjective Patient is seen in follow-up for chronic kidney disease. Renal function stable. On oral diuretics. Edema improving. Currently on airvo. Denies chest pain or shortness of breath. Admits to good urine output. No active complaints. Hemodynamically stable. Vital signs are stable. General: The patient appeared well nourished and normally developed. HEENT: Head exam is unremarkable. LUNGS: Breath sounds decreased. HEART: Rate and Rhythm are regular. ABDOMEN: Soft, obese. EXTREMITITES: Lower except is wrapped. 1+ edema. Objective - Vital Signs Vital signs: Vital Signs Temp 98.0 F 03/28/21 06:00 Pulse 73 03/28/21 06:00 Resp 20 03/28/21 06:00 BP 136/79 03/28/21 06:00 Pulse Ox 96 03/28/21 06:00 Intake & Output 03/27/21 03/28/21 03/28/21 18:59 06:59 18:59 Other: Voiding Method Urinal Urinal - Labs CBC & Chem 7: 03/28/21 05:41 03/28/21 05:41 Labs: Abnormal Lab Results - Last 24 Hours (Table) 03/27/21 03/27/21 03/27/21 Range/Units 11:50 17:02 20:05 WBC (3.8-10.6) k/uL MCV (80.0-100.0) fL Neutrophils # (1.3-7.7) k/uL Lymphocytes # (1.0-4.8) k/uL Carbon Dioxide (20.0-27.5) mmol/L BUN (9.0-27.0) mg/dL BUN/Creatinine Ratio (12.00-20.00) Ratio POC Glucose (mg/dL) 300 H 209 H 155 H (75-99) mg/dL Calcium (8.7-10.3) mg/dL 03/28/21 03/28/21 Range/Units 05:41 05:41 WBC 15.6 H (3.8-10.6) k/uL MCV 101.0 H (80.0-100.0) fL Neutrophils # 14.7 H (1.3-7.7) k/uL Lymphocytes # 0.2 L (1.0-4.8) k/uL Carbon Dioxide 29.8 H (20.0-27.5) mmol/L BUN 51.1 H (9.0-27.0) mg/dL BUN/Creatinine Ratio 42.58 H (12.00-20.00) Ratio POC Glucose (mg/dL) (75-99) mg/dL Calcium 8.6 L (8.7-10.3) mg/dL Assessment and Plan Plan: Assessment: 1. Chronic kidney disease stage III with baseline creatinine 1.2-1.3 secondary to diabetic kidney disease and cardiorenal syndrome. Creatinine stable at 1.2 today. UA benign. 2. Acute on chronic diastolic CHF. 3. Volume overload. Improving with diuresis. 4. Hypokalemia from diuresis. Replace. Better. 5. COVID-19 pneumonia. Plan: Maintain torsemide 20 mg once daily. Replace potassium -20 mEq today. Avoid nephrotoxins. Continue to monitor renal function and urine output.
[2021-03-28 11:28] LABS: Glucose,Whole Blood 151 mg/dL (75-99)
[2021-03-28] MEDS: FLUCONAZOLE IN NACL,ISO-OSM 100 MG in SALINE 1 50ML.BAG IVPB SCH (12:47)
--- NOTE | 2021-03-28 14:59 | P.PN ---
Subjective Progress Note Date: 03/28/21 Principal diagnosis: Dyspnea This 71-year-old white male patient who follows with Dr. Torres in the pulmonary clinic for his history of advanced COPD on home oxygen patient usually wears 4 L on a regular basis, he is prednisone dependent and usually takes 20 mg on a regular basis, coronary artery disease, diabetes mellitus type 2, previous history of CVA, hypertension, hyperlipidemia, previous history of pneumonia, chronic kidney disease unspecified, sleep apnea, BPH, osteoarthritis. Patient presented to the emergency department on 03/12/2021 for evaluation of worsening dyspnea. Patient had a fever at home up to 101.7F. He saw Dr. Torres on Friday03/09/2021 and his antibiotics were changed. Patient was also given a prednisone taper and was placed on Levaquin. Has chronic swelling in his lower extremities which is unchanged. Of note patient was tested for COVID-19 on 03/02/2021 and was found to be negative. During this visit to the ED he tested positive on 03/12/2021. Patient has been vaccinated against COVID-19. His chest x-ray shows increasing diffuse interstitial opacity, with the possibility of fluid overload/CHF, interstitial pneumonitis, atypical pneumonia or chronic pneumonia. His blood work on admission has been reviewed showing white blood cell count of 12.7, hemoglobin of 12.3, his INR 0.9, sodium is 136, potassium is 4.2, chloride is 97, CO2 31, BUN is 55, creatinine is 1.28, troponin is less than 0.012, proBNP is within normal limits at 206. Patient has been started on Decadron 6 blood gram daily which we will increase to twice daily, he was placed on albuterol and Symbicort, he is on subcutaneous heparin 5000 units every 12 h ours, and the patient is within the window for Remdesivir which she will be started on today. On 03/14/2021 patient seen in follow-up on medical surgical floor, he is breathing comfortably, she is resting in bed, no worsening dyspnea, he is currently on 12 L of oxygen his pulse ox is 92%, does have mildly congested cough, no chest discomfort, blood pressure is stable, his been afebrile. Lower extremity Dopplers showed no evidence of DVT. Today's labs have been reviewed, his white count is 16.9, hemoglobin is 12.8, sodium is 146, the rest of electrolytes are within normal limits, BUN is 40, creatinine is 1.2. LDH was 526, not significantly elevated, CRP was 13.6, follow-up in addition he remains on prophylactic dose Lovenox, he is on Decadron 6 mg twice daily. On 03/15/2021 patient seen in follow-up on medical surgical floor. He is awake and alert, he is currently on 10 L of oxygen, down from 12 L on yesterday's exam, he states his breathing is improving, his coughing less, his been afebrile, hemodynamically stable, no chest discomfort. His been ambulating about the room, tolerates activity well. Today's chest x-ray showing mild cardiomegaly, and stable diffuse interstitial changes and patchy peripheral infiltrates. Today's labs have been reviewed, his white blood cell count is 21.2, hemoglobin is 13.3, his d-dimer is improved and is down to 1.23, sodium is 146, the rest of the electrolytes are within normal limits, BUN is 44, creatinine is 1.3. His LDH is 625, slightly increased from most previous value of 526, CRP is improved and is down to 4.7 on today's labs, pro-calcitonin level is negative 2 at 0.16, and 0.19. Blood cultures have shown no growth. He cur rently continues on Decadron 6 mg twice daily, he is on Lovenox 40 mg once daily, he is on IV Lasix 40 mg every 12 hours, and we started him on the Remdesivir yesterday and today is day 3 of treatment. On 03/16/2021 patient seen in follow-up on medical surgical floor, he is awake and alert, in no acute distress, he states his breathing is about the same, not any worse, however his oxygen demand has increased to 15 L, his pulse ox is 88- 90%, his been afebrile, blood pressures been stable, denies any chest discomfort, no hemoptysis, lung sounds reveal scattered crackles mostly at bilateral bases, his chest x-ray from yesterday showed mild cardiomegaly, diffuse interstitial changes. Patient has been on IV Lasix 40 mg twice daily unfortunately has not fluid balance is very difficult to estimate, his lower extremity edema appears to be slightly better. He continues on Remdesivir, and today is day 4 of treatment. Today's labs have been reviewed, his white count is improving and is down to 16.5, hemoglobin is 12.4, his d-dimer was improving on yesterday's labs, and was down to 1.23, patient remains on prophylactic dose Lovenox 40 mg daily, BUN is 47, creatinine is 1.3, potassium is 3.8, sodium is 141, pro-calcitonin level was negative 2. Blood cultures were negative 2. On 03/18/2021 patient seen in follow-up on medical surgical floor. Patient was noted to be desaturating on high flow nasal cannula and nonrebreather mask due to the low 80s, and he was initially placed on Airvo at 60 L and FiO2 of 90% in addition to a nonrebreather mask and his pulse ox is only 90%. Clinically he states he feels like his breathing is getting better, he looks comfortable, does not appear to be in any acute distress, not using accessory muscles of breathing, he finished his course of Remdesivir, he currently remains on Decadron 6 mg twice daily, Lovenox 20 mg once daily, she denies any chest discomfort, denies any hemoptysis. Today's labs have been reviewed, his white blood cell count is relatively stable at 16.3, hemoglobin is 13.2, his d-dimer is 1.01, sodium is 145, potassium is 4.5, chloride is 101, BUN is 54 creatinine is 1.5., His LDH is stable at 643, and CRP is improved and is down to 1.7, his pro-calcitonin level was negative on 05/16/2020 at 0.19. Blood cultures show no growth. On 03/19/2021 patient seen in follow-up on medical surgical floor, today he is on Airvo at 55 L and FiO2 of 88% in addition to nonrebreather mask, and his pulse ox is 90-91%, and as such his oxygenation requirement has increased He denies worsening dyspnea, he states he is breathing fairly comfortably, minimal wheezing on today's exam, yesterday we switched his IV steroids to IV Solu- Medrol 60 mg every 6 hours, less wheezing, less coughing, no crackles noted. His last chest x-ray from yesterday on 03/18/2021 showed stable cardio megaly, stable diffuse interstitial changes and patchy mid to lower lung peripheral infiltrates likely related to COVID-19 pneumonia. Currently patient is on Baricitinib, IV Solu-Medrol 60 mg every 6 hours, he is on IV Lasix 40 mg every 8 hours, Lovenox 40 mg once daily, he is on home dose colchicine 0.6 mg daily. Vital signs have been stable, his been afebrile. Mild edema in bilateral lower extremities. Today's labs have been reviewed, white blood cell count is improving and is down to 12.5, hemoglobin is 13.4, his neutrophil count is 11.1, leukocyte count of 0.7, electrolytes are unremarkable, B1 is 58 creatinine is 1.4, renal profile slightly improved from yesterday, nephrology is following, his inflammatory markers slightly improved and LDH is down to 612, and CRP is 1.3. On 03/20/2021 patient seen in follow-up on medical surgical floor. He is awake and alert, in no acute distress although still requiring high flow oxygen. He is sitting up in the recliner, currently on Airvo at 55 L and FiO2 of 88% in addition to 100% nonrebreather mask. His lung sounds are improved, he is less wheezy, no rhonchi, less congested, and he feels like his breathing is improving. Occasional cough, no significant phlegm production. Patient's nonrebreather mask was removed, and patient is maintaining O2 saturations at 95% on just Airvo at 55 L and FiO2 of 85%. Afebrile. Currently patient is on Baricitinib, IV Solu-Medrol 60 mg every 6 hours, he is on IV Lasix 40 mg every 12 hours, Lovenox 40 mg once daily, he is on home dose colchicine 0.6 mg daily. Vital signs have been stable, his been afebrile. Mild edema in bilateral lower extremities. No new chest x-ray today. Patient continues to diurese, he is in -880 mL net fluid balance over the last 24 hours, lower extremity edema is improving, breathing is improving. Today's labs have been reviewed, sodium is 138, potassium is 3.8, chloride is 97, CO2 is 34, B1 is 66 creatinine 1.3. On 03/26/2021 patient seen in follow-up on medical surgical floor. He is resting comfortably in the recliner, he remains on Airvo by 1574%, he is not requiring nonrebreather mask, breathing comfortably, he responds appropriately, does not appear to be in any acute distress, no complaint of chest pain, lung sounds are positive for diffuse rhonchi, still has mild chest congestion. Currently remains on Symbicort, Ventolin, he is on IV steroids 60 mg every 6 hours of Solu-Medrol, Baricitinib remains on hold related to low ALC which is at 0.2. Today's labs have been reviewed, his white blood cell count is improving and is down to 15, hemoglobin is 14.3, sodium is 140, potassium 3.7, chloride is 96, CO2 is 40, B1 is 56 creatinine is 1.14. His Lovenox is a 40 mg daily, she remains on IV diuretics with Lasix 40 mg every 12 hours. No worsening swelling in bilateral lower extremities, overall lower extremity edema has significantly improved, no net fluid balance is available for this shift. Overall his weight is down by 1.9 kg over last 24-48 hours. on 03/27/2021 patient seen in follow-up on medical surgical floor. Remains on Airvo down to 45 L and FiO2 of 73%, his pulse ox is 92-93%, he does desaturate and has exertional dyspnea. Afebrile. no complaints of chest discomfort, overall seems to be improving. today's labs have been reviewed. White count is improved and is down to 14, hemoglobin is 14, d-dimer is 1.1, sodium is 139, potassium 3.4, BUN is 53, and creatinine is 1.05. Baricitinib remains on hold, and absolute lymphocyte count remains low at 0.2. Continues on Lovenox 40 mg daily, continues on multivitamins and IV steroids at 60 mg every 6 hours.nephrology is following and his IV Lasix has been replaced with torsemide.he is in -1050 ML note fluid balance over the last 24 hours On 03/28/2021 patient seen in follow-up on medical surgical floor, he is cu rrently on Airvo at 40 L and 74%, breathing comfortably, his pulse ox is 88-90%, breathing comfortable, denies any worsening dyspnea no cough, last night patient apparently got very short of breath, desaturated, she required a nonrebreather mask. He had since recovered, he was taken off the nonrebreather mask, breathing much more comfortably. He states he gets short of breath usually late at night, he does have obstructive sleep apnea however he does not wear a CPAP at a regular basis at home. Baricitinib remains on hold, today's blood work is still pending to check on his ALC. Patient continues on IV Solu-Medrol 60 g every 6 hours, Lovenox 40 mg daily, he is on Symbicort, albuterol, his IV Lasix has been switched over to Demadex per nephrology. He still has significant lower extremity edema. Today's labs have been reviewed, white blood cell count is 15.6, hemoglobin is 14.5, sodium is 143, potassium 3.7, chloride is 97, BUN is 51, creatinine is 1.2, proBNP level is 720. Patient is in -1050 ML in upload balance over the last 24 hours. No complaints of chest discomfort. Follow-up chest x-ray has been obtained showing chronic changes with bilateral multifocal opacities without significant change compared the most previous chest x-ray Objective - Vital Signs Vital signs: Vital Signs Temp 97.7 F 03/28/21 10:00 Pulse 77 03/28/21 10:00 Resp 18 03/28/21 10:00 BP 135/62 03/28/21 10:00 Pulse Ox 88 L 03/28/21 10:00 Intake & Output 03/27/21 03/28/21 03/28/21 18:59 06:59 18:59 Other: Voiding Method Urinal Urinal - Exam GENERAL EXAM: Alert, very pleasant, 71-year-old white male, currently on Airvo at 40 L and FiO2 of 72% comfortable in no apparent distress. HEAD: Normocephalic/atraumatic. EYES: Normal reaction of pupils, equal size. Conjunctiva pink, sclera white. NOSE: Clear with pink turbinates. THROAT: No erythema or exudates. NECK: No masses, no JVD, no thyroid enlargement, no adenopathy. CHEST: No chest wall deformity. Symmetrical expansion. LUNGS: Equal air entry with diffuse crackles, and a few rhonchi CVS: Regular rate and rhythm, normal S1 and S2, no gallops, no murmurs, no rubs ABDOMEN: Soft, nontender. No hepatosplenomegaly, normal bowel sounds, no guarding or rigidity. EXTREMITIES: No clubbing, 1+ plus lower extremity edema with chronic venous stasis, no cyanosis, 2+ pulses and upper and lower extremities. MUSCULOSKELETAL: Muscle strength and tone normal. SPINE: No scoliosis or deformity SKIN: No rashes CENTRAL NERVOUS SYSTEM: Alert and oriented -3. No focal deficits, tone is normal in all 4 extremities. PSYCHIATRIC: Alert and oriented -3. Appropriate affect. Intact judgment and insight. - Labs CBC & Chem 7: 03/28/21 05:41 03/28/21 05:41 Labs: Abnormal Lab Results - Last 24 Hours (Table) 03/27/21 03/27/21 03/28/21 Range/Units 17:02 20:05 05:41 WBC 15.6 H (3.8-10.6) k/uL MCV 101.0 H (80.0-100.0) fL Neutrophils # 14.7 H (1.3-7.7) k/uL Lymphocytes # 0.2 L (1.0-4.8) k/uL Carbon Dioxide (20.0-27.5) mmol/L BUN (9.0-27.0) mg/dL BUN/Creatinine Ratio (12.00-20.00) Ratio POC Glucose (mg/dL) 209 H 155 H (75-99) mg/dL Calcium (8.7-10.3) mg/dL 03/28/21 03/28/21 Range/Units 05:41 11:27 WBC (3.8-10.6) k/uL MCV (80.0-100.0) fL Neutrophils # (1.3-7.7) k/uL Lymphocytes # (1.0-4.8) k/uL Carbon Dioxide 29.8 H (20.0-27.5) mmol/L BUN 51.1 H (9.0-27.0) mg/dL BUN/Creatinine Ratio 42.58 H (12.00-20.00) Ratio POC Glucose (mg/dL) 151 H (75-99) mg/dL Calcium 8.6 L (8.7-10.3) mg/dL Assessment and Plan Plan: Assessment: #1. Acute on chronic hypoxic respiratory failure related to acute COVID-19 related pneumonia, patient tested positive on 03/12/2021. Patient is vaccinated against COVID-19. His symptoms have worsened over last week, patient will be started on Remdesivir today on 03/13/2021, patient completed Remdesivir on 03/17/2021. Today his oxygenation is worse, and patient was placed on Airvo and nonrebreather and on Baricitinib since 03/18/2021, which was placed on hold on 03/25/2021 related to low ALC level #2. Acute exacerbation of COPD #3. Chronic COPD, advanced, with a baseline FEV1 of 1.71 L or FEV1 of 58% usually on home oxygen at 4 L #4. Recent 2 hospitalizations for acute exacerbation of COPD in early February, during which patient tested negative for COVID-19, urinalysis was also negative, influenza A and B were negative #5. Diabetes mellitus type 2 #6. Hypertension, #7. Hyperlipidemia #8. History of coronary artery disease with previous stenting #9. History of CHF, unspecified #10. History of CVA/TIA #11. Osteoarthritis #12. Chronic knee disease, unspecified #13. Chronic venous insufficiency #14. 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 Sleep apnea does not wear CPAP #17. Marijuana use #18. Elevated d-dimer related to acute COVID-19 infection, lower extremity Dopplers showed no evidence of DVT, d-dimer is improved since admission, patient is currently on twice-daily dose of Lovenox 40 mg Plan: Patient has episodes of increased shortness of breath and low O2 saturations usually at night Patient does have obstructive sleep apnea history, He could benefit from BiPAP support with 12/6 and FiO2 to titrate to keep O2 sat at or above 88% on a nightly basis Patient can be switched back to Airvo or high flow oxygen during the day We'll continue with current dose Solu-Medrol Diuretics per nephrology recommendations Continue monitoring electrolytes and renal profile Continue current dose Lovenox We'll obtain follow-up d-dimer, inflammatory markers I performed a history & physical examination of the patient and discussed their management with my nurse practitioner, Skylar Mckoy. I reviewed the nurse practitioner's note and agree with the documented findings and plan of care. Lung sounds are positive for crackles and rhonchi throughout the lung [place]. The findings and the impression was discussed with the patient. I attest to the documentation by the nurse practitioner. Time with Patient: Less than 30
[2021-03-28 17:00] LABS: Glucose,Whole Blood 135 mg/dL (75-99)
[2021-03-28 19:28] LABS: Glucose,Whole Blood 187 mg/dL (75-99)
[2021-03-28] MEDS: INSULIN DETEMIR (LEVEMIR) 100 UNIT/ML SYR SQ SCH (19:36)
[2021-03-28] MEDS: PRAMIPEXOLE 1 MG TAB PO SCH (19:37)
[2021-03-28] MEDS: METOPROLOL TARTRATE 25 MG TAB PO SCH (19:37)
[2021-03-29] MEDS: methylPREDNISolone SOD SUCCI 125 MG/2 ML VIAL IV SCH ×4 (01:36→20:22)
[2021-03-29 07:16] LABS: Glucose,Whole Blood 127 mg/dL (75-99)
--- NOTE | 2021-03-29 08:08 | XR ---
EXAMINATION TYPE: XR chest 1V portable DATE OF EXAM: 03/29/2021 Comparison: 03/28/2021 Clinical History: 71-year-old male covid Findings: Heart remains upper limits of normal in size. Mild hyperinflation. Diffuse patchy interstitial change s and patchy bibasilar opacities persist without significant change. Some external artifact projects over the left apex and down the left hemithorax. Some additional linear artifacts project along the m edial right lung and right apex. Partially visualized right shoulder plasty. Impression: Bilateral patchy and interstitial COVID infiltrates persist without significant change. Some overlyin g linear external artifacts on both sides.
[2021-03-29] MEDS: INSULIN ASPART (NovoLOG) 100 UNIT/ML VIAL SQ SCH ×8 (08:42→20:22)
[2021-03-29] MEDS: ASPIRIN 81 MG PO SCH (08:51)
[2021-03-29] MEDS: ZINC SULFATE 220 MG CAP PO SCH (08:51)
[2021-03-29] MEDS: FLUCONAZOLE 100 MG TAB PO SCH (08:51)
[2021-03-29] MEDS: TAMSULOSIN 0.4 MG CAP.ER.24H PO SCH (08:52)
[2021-03-29] MEDS: allopurinoL 100 MG TAB PO SCH (08:52)
[2021-03-29] MEDS: ISOSORBIDE MONONITRATE ER 30 MG TAB.ER.24H PO SCH (08:52)
[2021-03-29] MEDS: FAMOTIDINE 20 MG TAB PO SCH (08:52)
[2021-03-29] MEDS: ASCORBIC ACID 500 MG TAB PO SCH ×2 (08:52→20:23)
[2021-03-29] MEDS: METOPROLOL TARTRATE 50 MG TAB PO SCH (08:52)
[2021-03-29] MEDS: CHOLECALCIFEROL 125 MCG (5000 IU) TABLET PO SCH (08:52)
[2021-03-29] MEDS: QUEtiapine 25 MG TAB PO SCH ×2 (08:52→20:23)
[2021-03-29] MEDS: PANTOPRAZOLE 40 MG TABLET PO SCH (08:52)
[2021-03-29] MEDS: ENOXAPARIN 40 MG/0.4 ML SYRINGE SQ SCH (08:53)
[2021-03-29] MEDS: COLCHICINE 0.6 MG EACH PO SCH (08:55)
[2021-03-29] MEDS: TORSEMIDE 20 MG TAB PO SCH (08:57)
[2021-03-29] MEDS: NYSTATIN 100,000 UNIT/ML SUSP 500,000 UNIT/5 ML CUP PO SCH ×4 (08:57→20:22)
[2021-03-29] MEDS: ALBUTEROL HFA INHALER INHALATION SCH ×4 (09:13→20:16)
[2021-03-29] MEDS: SYMBICORT 160-4.5 MCG INHALER INHALATION SCH ×2 (09:13→20:16)
--- NOTE | 2021-03-29 10:41 | P.PN ---
Subjective Patient is seen in follow-up for chronic kidney disease. Renal function stable. Labs from today pending. On oral diuretics. Edema improving. Remains on airvo. Denies chest pain or shortness of breath. Admits to good urine output. No active complaints. Hemodynamically stable. Vital signs are stable. General: The patient appeared well nourished and normally developed. HEENT: Head exam is unremarkable. LUNGS: Breath sounds decreased. HEART: Rate and Rhythm are regular. ABDOMEN: Soft, obese. EXTREMITITES: Lower except is wrapped. 1+ edema. Objective - Vital Signs Vital signs: Vital Signs Temp 97.5 F L 03/29/21 02:22 Pulse 65 03/29/21 05:45 Resp 16 03/29/21 05:45 BP 110/67 03/29/21 05:45 Pulse Ox 94 L 03/29/21 05:45 Intake & Output 03/28/21 03/29/21 03/29/21 18:59 06:59 18:59 Output Total 600 Balance -600 Output: Urine 600 - Labs CBC & Chem 7: 03/28/21 05:41 03/28/21 05:41 Labs: Abnormal Lab Results - Last 24 Hours (Table) 03/28/21 03/28/21 03/28/21 Range/Units 11:27 16:59 19:27 D-Dimer (<0.60) mg/L FEU POC Glucose (mg/dL) 151 H 135 H 187 H (75-99) mg/dL 03/29/21 03/29/21 Range/Units 06:58 07:14 D-Dimer 0.93 H (<0.60) mg/L FEU POC Glucose (mg/dL) 127 H (75-99) mg/dL Assessment and Plan Plan: Assessment: 1. Chronic kidney disease stage III with baseline creatinine 1.2-1.3 secondary to diabetic kidney disease and cardiorenal syndrome. Creatinine stable at 1.2 yesterday. UA benign. 2. Acute on chronic diastolic CHF. 3. Volume overload. Improving with diuresis. 4. Hypokalemia from diuresis. Replaced. Better. 5. COVID-19 pneumonia. Plan: Maintain torsemide 20 mg once daily. Avoid nephrotoxins. Continue to monitor renal function and urine output. Morning labs pending. Wean FiO2
[2021-03-29 12:04] LABS: Glucose,Whole Blood 211 mg/dL (75-99)
[2021-03-29 12:12] LABS: African American GFR (CKD) 67.6 (60.0-200.0); Anion Gap 17.4 mmol/L (10.00-18.00); BUN/Creat Ratio 47.15 Ratio (12.00-20.00); C Reactive Protein 1.1 mg/dL (0.00-0.80); Calcium 8.7 mg/dL (8.7-10.3); Non-African American GFR(CKD) 58.3 (60.0-200.0); Potassium 3.7 mmol/L (3.5-5.5)
--- NOTE | 2021-03-29 15:47 | P.PN ---
Subjective Progress Note Date: 03/29/21 Principal diagnosis: Dyspnea This 71-year-old white male patient who follows with Dr. Torres in the pulmonary clinic for his history of advanced COPD on home oxygen patient usually wears 4 L on a regular basis, he is prednisone dependent and usually takes 20 mg on a regular basis, coronary artery disease, diabetes mellitus type 2, previous history of CVA, hypertension, hyperlipidemia, previous history of pneumonia, chronic kidney disease unspecified, sleep apnea, BPH, osteoarthritis. Patient presented to the emergency department on 03/12/2021 for evaluation of worsening dyspnea. Patient had a fever at home up to 101.7F. He saw Dr. Torres on Friday03/09/2021 and his antibiotics were changed. Patient was also given a prednisone taper and was placed on Levaquin. Has chronic swelling in his lower extremities which is unchanged. Of note patient was tested for COVID-19 on 03/02/2021 and was found to be negative. During this visit to the ED he tested positive on 03/12/2021. Patient has been vaccinated against COVID-19. His chest x-ray shows increasing diffuse interstitial opacity, with the possibility of fluid overload/CHF, interstitial pneumonitis, atypical pneumonia or chronic pneumonia. His blood work on admission has been reviewed showing white blood cell count of 12.7, hemoglobin of 12.3, his INR 0.9, sodium is 136, potassium is 4.2, chloride is 97, CO2 31, BUN is 55, creatinine is 1.28, troponin is less than 0.012, proBNP is within normal limits at 206. Patient has been started on Decadron 6 blood gram daily which we will increase to twice daily, he was placed on albuterol and Symbicort, he is on subcutaneous heparin 5000 units every 12 h ours, and the patient is within the window for Remdesivir which she will be started on today. On 03/14/2021 patient seen in follow-up on medical surgical floor, he is breathing comfortably, she is resting in bed, no worsening dyspnea, he is currently on 12 L of oxygen his pulse ox is 92%, does have mildly congested cough, no chest discomfort, blood pressure is stable, his been afebrile. Lower extremity Dopplers showed no evidence of DVT. Today's labs have been reviewed, his white count is 16.9, hemoglobin is 12.8, sodium is 146, the rest of electrolytes are within normal limits, BUN is 40, creatinine is 1.2. LDH was 526, not significantly elevated, CRP was 13.6, follow-up in addition he remains on prophylactic dose Lovenox, he is on Decadron 6 mg twice daily. On 03/15/2021 patient seen in follow-up on medical surgical floor. He is awake and alert, he is currently on 10 L of oxygen, down from 12 L on yesterday's exam, he states his breathing is improving, his coughing less, his been afebrile, hemodynamically stable, no chest discomfort. His been ambulating about the room, tolerates activity well. Today's chest x-ray showing mild cardiomegaly, and stable diffuse interstitial changes and patchy peripheral infiltrates. Today's labs have been reviewed, his white blood cell count is 21.2, hemoglobin is 13.3, his d-dimer is improved and is down to 1.23, sodium is 146, the rest of the electrolytes are within normal limits, BUN is 44, creatinine is 1.3. His LDH is 625, slightly increased from most previous value of 526, CRP is improved and is down to 4.7 on today's labs, pro-calcitonin level is negative 2 at 0.16, and 0.19. Blood cultures have shown no growth. He cur rently continues on Decadron 6 mg twice daily, he is on Lovenox 40 mg once daily, he is on IV Lasix 40 mg every 12 hours, and we started him on the Remdesivir yesterday and today is day 3 of treatment. On 03/16/2021 patient seen in follow-up on medical surgical floor, he is awake and alert, in no acute distress, he states his breathing is about the same, not any worse, however his oxygen demand has increased to 15 L, his pulse ox is 88- 90%, his been afebrile, blood pressures been stable, denies any chest discomfort, no hemoptysis, lung sounds reveal scattered crackles mostly at bilateral bases, his chest x-ray from yesterday showed mild cardiomegaly, diffuse interstitial changes. Patient has been on IV Lasix 40 mg twice daily unfortunately has not fluid balance is very difficult to estimate, his lower extremity edema appears to be slightly better. He continues on Remdesivir, and today is day 4 of treatment. Today's labs have been reviewed, his white count is improving and is down to 16.5, hemoglobin is 12.4, his d-dimer was improving on yesterday's labs, and was down to 1.23, patient remains on prophylactic dose Lovenox 40 mg daily, BUN is 47, creatinine is 1.3, potassium is 3.8, sodium is 141, pro-calcitonin level was negative 2. Blood cultures were negative 2. On 03/18/2021 patient seen in follow-up on medical surgical floor. Patient was noted to be desaturating on high flow nasal cannula and nonrebreather mask due to the low 80s, and he was initially placed on Airvo at 60 L and FiO2 of 90% in addition to a nonrebreather mask and his pulse ox is only 90%. Clinically he states he feels like his breathing is getting better, he looks comfortable, does not appear to be in any acute distress, not using accessory muscles of breathing, he finished his course of Remdesivir, he currently remains on Decadron 6 mg twice daily, Lovenox 20 mg once daily, she denies any chest discomfort, denies any hemoptysis. Today's labs have been reviewed, his white blood cell count is relatively stable at 16.3, hemoglobin is 13.2, his d-dimer is 1.01, sodium is 145, potassium is 4.5, chloride is 101, BUN is 54 creatinine is 1.5., His LDH is stable at 643, and CRP is improved and is down to 1.7, his pro-calcitonin level was negative on 05/16/2020 at 0.19. Blood cultures show no growth. On 03/19/2021 patient seen in follow-up on medical surgical floor, today he is on Airvo at 55 L and FiO2 of 88% in addition to nonrebreather mask, and his pulse ox is 90-91%, and as such his oxygenation requirement has increased He denies worsening dyspnea, he states he is breathing fairly comfortably, minimal wheezing on today's exam, yesterday we switched his IV steroids to IV Solu- Medrol 60 mg every 6 hours, less wheezing, less coughing, no crackles noted. His last chest x-ray from yesterday on 03/18/2021 showed stable cardio megaly, stable diffuse interstitial changes and patchy mid to lower lung peripheral infiltrates likely related to COVID-19 pneumonia. Currently patient is on Baricitinib, IV Solu-Medrol 60 mg every 6 hours, he is on IV Lasix 40 mg every 8 hours, Lovenox 40 mg once daily, he is on home dose colchicine 0.6 mg daily. Vital signs have been stable, his been afebrile. Mild edema in bilateral lower extremities. Today's labs have been reviewed, white blood cell count is improving and is down to 12.5, hemoglobin is 13.4, his neutrophil count is 11.1, leukocyte count of 0.7, electrolytes are unremarkable, B1 is 58 creatinine is 1.4, renal profile slightly improved from yesterday, nephrology is following, his inflammatory markers slightly improved and LDH is down to 612, and CRP is 1.3. On 03/20/2021 patient seen in follow-up on medical surgical floor. He is awake and alert, in no acute distress although still requiring high flow oxygen. He is sitting up in the recliner, currently on Airvo at 55 L and FiO2 of 88% in addition to 100% nonrebreather mask. His lung sounds are improved, he is less wheezy, no rhonchi, less congested, and he feels like his breathing is improving. Occasional cough, no significant phlegm production. Patient's nonrebreather mask was removed, and patient is maintaining O2 saturations at 95% on just Airvo at 55 L and FiO2 of 85%. Afebrile. Currently patient is on Baricitinib, IV Solu-Medrol 60 mg every 6 hours, he is on IV Lasix 40 mg every 12 hours, Lovenox 40 mg once daily, he is on home dose colchicine 0.6 mg daily. Vital signs have been stable, his been afebrile. Mild edema in bilateral lower extremities. No new chest x-ray today. Patient continues to diurese, he is in -880 mL net fluid balance over the last 24 hours, lower extremity edema is improving, breathing is improving. Today's labs have been reviewed, sodium is 138, potassium is 3.8, chloride is 97, CO2 is 34, B1 is 66 creatinine 1.3. On 03/26/2021 patient seen in follow-up on medical surgical floor. He is resting comfortably in the recliner, he remains on Airvo by 1574%, he is not requiring nonrebreather mask, breathing comfortably, he responds appropriately, does not appear to be in any acute distress, no complaint of chest pain, lung sounds are positive for diffuse rhonchi, still has mild chest congestion. Currently remains on Symbicort, Ventolin, he is on IV steroids 60 mg every 6 hours of Solu-Medrol, Baricitinib remains on hold related to low ALC which is at 0.2. Today's labs have been reviewed, his white blood cell count is improving and is down to 15, hemoglobin is 14.3, sodium is 140, potassium 3.7, chloride is 96, CO2 is 40, B1 is 56 creatinine is 1.14. His Lovenox is a 40 mg daily, she remains on IV diuretics with Lasix 40 mg every 12 hours. No worsening swelling in bilateral lower extremities, overall lower extremity edema has significantly improved, no net fluid balance is available for this shift. Overall his weight is down by 1.9 kg over last 24-48 hours. on 03/27/2021 patient seen in follow-up on medical surgical floor. Remains on Airvo down to 45 L and FiO2 of 73%, his pulse ox is 92-93%, he does desaturate and has exertional dyspnea. Afebrile. no complaints of chest discomfort, overall seems to be improving. today's labs have been reviewed. White count is improved and is down to 14, hemoglobin is 14, d-dimer is 1.1, sodium is 139, potassium 3.4, BUN is 53, and creatinine is 1.05. Baricitinib remains on hold, and absolute lymphocyte count remains low at 0.2. Continues on Lovenox 40 mg daily, continues on multivitamins and IV steroids at 60 mg every 6 hours.nephrology is following and his IV Lasix has been replaced with torsemide.he is in -1050 ML note fluid balance over the last 24 hours On 03/28/2021 patient seen in follow-up on medical surgical floor, he is cu rrently on Airvo at 40 L and 74%, breathing comfortably, his pulse ox is 88-90%, breathing comfortable, denies any worsening dyspnea no cough, last night patient apparently got very short of breath, desaturated, she required a nonrebreather mask. He had since recovered, he was taken off the nonrebreather mask, breathing much more comfortably. He states he gets short of breath usually late at night, he does have obstructive sleep apnea however he does not wear a CPAP at a regular basis at home. Baricitinib remains on hold, today's blood work is still pending to check on his ALC. Patient continues on IV Solu-Medrol 60 g every 6 hours, Lovenox 40 mg daily, he is on Symbicort, albuterol, his IV Lasix has been switched over to Demadex per nephrology. He still has significant lower extremity edema. Today's labs have been reviewed, white blood cell count is 15.6, hemoglobin is 14.5, sodium is 143, potassium 3.7, chloride is 97, BUN is 51, creatinine is 1.2, proBNP level is 720. Patient is in -1050 ML in upload balance over the last 24 hours. No complaints of chest discomfort. Follow-up chest x-ray has been obtained showing chronic changes with bilateral multifocal opacities without significant change compared the most previous chest x-ray On 03/29/2021 patient seen in follow-up on medical surgical floor. He is sitting up in the recliner, breathing comfortably, remains on Airvo currently at 40 L and FiO2 of 73%, and pulse ox is 93%, breathing comfortably, we ordered the patient BiPAP last night however Respiratory therapy did not apply it for unclear reasons. No acute events overnight, patient is breathing fairly comfortably, no worsening cough, lung sounds reveal a few scattered rhonchi and rales, no wheezing, no complaint of chest discomfort. Patient continues on Symbicort, Lovenox, continues on Demadex 20 mg daily and IV steroids with Solu- Medrol 60 mg every 6 hours. Appetite is fair. His weight is down by 1.8 kg in the last 24 hours, lower extremity edema is improving. Today's chest x-ray showing bilateral patchy and interstitial "infiltrates without significant change. Today's labs have been reviewed, his d-dimer is improving and is down to 0.93, sodium is 145, potassium 3.7, chloride is 96, B1 is 58, creatinine is 1.2, inflammatory markers are improving, LDH is down to 530, and CRP is 1.1. Objective - Vital Signs Vital signs: Vital Signs Temp 97.8 F 03/29/21 14:00 Pulse 98 03/29/21 14:00 Resp 16 03/29/21 14:00 BP 127/69 03/29/21 14:00 Pulse Ox 94 L 03/29/21 14:00 Intake & Output 03/28/21 03/29/21 03/29/21 18:59 06:59 18:59 Intake Total 600 Output Total 600 Balance -600 600 Weight 93.44 kg Intake: Oral 600 Output: Urine 600 - Exam GENERAL EXAM: Alert, very pleasant, 71-year-old white male, currently on Airvo at 40 L and FiO2 of 72% comfortable in no apparent distress. HEAD: Normocephalic/atraumatic. EYES: Normal reaction of pupils, equal size. Conjunctiva pink, sclera white. NOSE: Clear with pink turbinates. THROAT: No erythema or exudates. NECK: No masses, no JVD, no thyroid enlargement, no adenopathy. CHEST: No chest wall deformity. Symmetrical expansion. LUNGS: Equal air entry with diffuse crackles, and a few rhonchi CVS: Regular rate and rhythm, normal S1 and S2, no gallops, no murmurs, no rubs ABDOMEN: Soft, nontender. No hepatosplenomegaly, normal bowel sounds, no guarding or rigidity. EXTREMITIES: No clubbing, 1+ plus lower extremity edema with chronic venous stasis, no cyanosis, 2+ pulses and upper and lower extremities. MUSCULOSKELETAL: Muscle strength and tone normal. SPINE: No scoliosis or deformity SKIN: No rashes CENTRAL NERVOUS SYSTEM: Alert and oriented -3. No focal deficits, tone is normal in all 4 extremities. PSYCHIATRIC: Alert and oriented -3. Appropriate affect. Intact judgment and insight. - Labs CBC & Chem 7: 03/28/21 05:41 03/29/21 06:57 Labs: Abnormal Lab Results - Last 24 Hours (Table) 03/28/21 03/28/21 03/29/21 Range/Units 16:59 19:27 06:57 D-Dimer (<0.60) mg/L FEU Carbon Dioxide 31.0 H (20.0-27.5) mmol/L BUN 58.0 H (9.0-27.0) mg/dL Est GFR (CKD-EPI)NonAf 58.3 L (60.0-200.0) BUN/Creatinine Ratio 47.15 H (12.00-20.00) Ratio Glucose 112 H (70-110) mg/dL POC Glucose (mg/dL) 135 H 187 H (75-99) mg/dL Lactate Dehydrogenase 530 H (120-246) U/L C-Reactive Protein 1.10 H (0.00-0.80) mg/dL 03/29/21 03/29/21 03/29/21 Range/Units 06:58 07:14 12:02 D-Dimer 0.93 H (<0.60) mg/L FEU Carbon Dioxide (20.0-27.5) mmol/L BUN (9.0-27.0) mg/dL Est GFR (CKD-EPI)NonAf (60.0-200.0) BUN/Creatinine Ratio (12.00-20.00) Ratio Glucose (70-110) mg/dL POC Glucose (mg/dL) 127 H 211 H (75-99) mg/dL Lactate Dehydrogenase (120-246) U/L C-Reactive Protein (0.00-0.80) mg/dL Assessment and Plan Plan: Assessment: #1. Acute on chronic hypoxic respiratory failure related to acute COVID-19 related pneumonia, patient tested positive on 03/12/2021. Patient is vaccinated against COVID-19. His symptoms have worsened over last week, patient will be started on Remdesivir today on 03/13/2021, patient completed Remdesivir on 03/17/2021. Today his oxygenation is worse, and patient was placed on Airvo and nonrebreather and on Baricitinib since 03/18/2021, which was placed on hold on 03/25/2021 related to low ALC level #2. Acute exacerbation of COPD #3. Chronic COPD, advanced, with a baseline FEV1 of 1.71 L or FEV1 of 58% usually on home oxygen at 4 L #4. Recent 2 hospitalizations for acute exacerbation of COPD in early February, during which patient tested negative for COVID-19, urinalysis was also negative, influenza A and B were negative #5. Diabetes mellitus type 2 #6. Hypertension, #7. Hyperlipidemia #8. History of coronary artery disease with previous stenting #9. History of CHF, unspecified #10. History of CVA/TIA #11. Osteoarthritis #12. Chronic knee disease, unspecified #13. Chronic venous insufficiency #14. 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 Sleep apnea does not wear CPAP #17. Marijuana use #18. Elevated d-dimer related to acute COVID-19 infection, lower extremity Dopplers showed no evidence of DVT, d-dimer is improved since admission, patient is currently on twice-daily dose of Lovenox 40 mg Plan: BiPAP support at bedtime as previously ordered Will attempt to switch the patient to high flow nasal cannula this afternoon Continue IV Solu-Medrol Diuretics per nephrology Patient is breathing comfortably, Vital signs have been stable Continue current dose Lovenox We'll obtain follow-up d-dimer, inflammatory markers I performed a history & physical examination of the patient and discussed their management with my nurse practitioner, Skylar Mckoy. I reviewed the nurse practitioner's note and agree with the documented findings and plan of care. Lung sounds are positive for crackles and rhonchi throughout the lung [place]. The findings and the impression was discussed with the patient. I attest to the documentation by the nurse practitioner. Time with Patient: Less than 30
[2021-03-29 16:51] LABS: Glucose,Whole Blood 222 mg/dL (75-99)
[2021-03-29 20:08] LABS: Glucose,Whole Blood 249 mg/dL (75-99)
[2021-03-29] MEDS: PRAMIPEXOLE 1 MG TAB PO SCH (20:22)
[2021-03-29] MEDS: INSULIN DETEMIR (LEVEMIR) 100 UNIT/ML SYR SQ SCH (20:22)
[2021-03-29] MEDS: METOPROLOL TARTRATE 25 MG TAB PO SCH (20:23)
--- NOTE | 2021-03-29 22:05 | P.PN ---
Subjective Progress Note Date: 03/27/21 Principal diagnosis: Acute on chronic hypoxic respiratory failure secondary to COVID-19 pneumonia Patient is a 71-year-old white male with a chronic medical problems a chronic hypoxic respiratory failure uses about 4 L of oxygen at home came in the with complaints of shortness of breath and cough restarted couple days ago was also having fever restarted couple days ago. Patient is found to have COVID-19 patient has multiple other medical problems chronically and patient does have history of COPD possible chronic diastolic dysfunction patient was on IV Lasix in the past. 03/13/2021 Patient evaluated today sitting on the edge of the bed. He is requiring oxygen at 7L HF with a saturation of 91%. Blood pressure 148/76, heart rate 74, temp 98.2. Labs today include WBC of 13.08, hgb 12.3, sodium 143, potassium 4.0, AST 55, ALT 94, LDH 526, CRP 13.60. DD 5.97, doppler negative for bilateral DVT. Pulmonary consultation today who increased decadron to twice a day and started the patient on remdesivir. Patient is also on subcu heparin, zinc, vitamins. 03/14/2021 Patient has been able to ambulate around his room while on oxygen. Vital signs included temperature of 91, heart rate 66 sinus rhythm, respirations 18, blood pressure 139/65 and he is 90% on 12 L high flow nasal cannula. Oxygen saturation has been progressively increasing. Labs today show a white count of 16.99, hemoglobin 12.8, sodium 146, glucose in the 70s, AST 68, ALT 96. Will repeat a chest x-ray in the morning as well as repeat labs and inflammatory markers. He continues on Lovenox, zinc, vitamins, he was started on IV remdesivir from pulmonary services today. Procalcitonin pending. Apparently patient has been refusing ketorolac eyedrops as he states that he is done taking outpatient; discontinued the order. 03/15/2021 Patient says he is feeling better patient the arms and requirements went up yesterday was on 10 L now came down to 8 L patient overall feels better but as per the nursing staff patient has been occasionally getting confused which is not unexpected for for him as he had sundowners in the past and patient is also on stress steroids which can do that. Patient was started on IV Lasix because of increased swelling in bilateral lower extremities patient barely takes one 20 mg of by mouth Lasix at home although it was documented as 20 mg. We'll continue with IV Lasix will monitor I's and O's will continue to wean off his oxygen. 03/16/2021 Patient feels better but his oxygen requirements remain the same patient remains on IV Lasix creatinine is around 1.3 compared to 1.2 on admission will continue to closely monitor his kidney function and the input and output. Patient remains on IV steroids blood sugars are within normal limits leukocytosis improved a bit. 03/17/2021 Patient has occasional confusional episodes during nighttime she is being well managed by Seroquel. The patient is presently on 15 L of oxygen patient swelling in bilateral lower x-ray significantly improved still has some swelling continue with IV Lasix creatinine remained stable at 1.2 serum sodium within normal limits. 03/18/2021 Patient was pretty status is worse today and patient is requiring airvo, patient has significant Swelling in bilateral lower extremities which is a worse compared to yesterday patient is on the Lasix every 12 hourly which will be changed to create hourly and we'll also get the opinion of nephrology testing that his creatinine went up to 1.5. Patient looks tired although patient says he is okay. Patient completed Remdesivir and was started on Barcitinib. 03/19/2021 Patient evaluated today sitting in the edge of the bed. He maintains on an aerosol as well as a nonrebreather. Patient has bilateral lower extremity edema which is [place] wrapped, edema is still +2 pitting above the wraps, he continues on IV lasix Q8. He appears to be about a -2.5 L fluid balance in the last 24 hours. Vital signs reviewed, he is afebrile, heart rate 72, respirations 28, blood pressure 137/75 and he is 90% on a 55 L Airvo with a 100% nonrebreather ma sk. Patient was able to carry on full conversation however once he pauses he does become hypoxic, 87-88%, recovers though. Labs reviewed today include a white count 12.52, hemoglobin 13.4, d-dimer 1.03, sodium 143, potassium 4.2, creatinine 1.4, BUN 58.8. Sugars are in the 200s up to as high as 329, AST is 42, ALT 72 today. LDH is 612, CRP 1.30, which is slightly improved from yesterday. Chest x-ray today shows stable myocardial megaly, stable diffuse interstitial changes and patchy mid and lower lung infiltrates as seen with covid Pneumonia. He continues on Lovenox, vitamins, IV solu-medrol, and baricitinib. He is being followed closely by pulmonary services. Pending nephrology consultation. 03/20/2021 Patient evaluated today sitting up in chair he is on airvo 55L and NRB with an oxygen saturation of 95%, blood pressure 130/74, afebrile, heart rate 89. Labs today sodium 138, potassium 3.8, chloride 97, CO2 34, BUN 66, creatinine 1.30, blood glucose in the 150's today. He states that he feels slightly better than yesterday, although he is requiring alot of oxygen support. He has not had a bowel movement in a few days, he is urinating without difficulty. Has a productive cough. Nephrology has ordered post void residuals. He is also being followed closely by panda. Continues on baricitinib, lovenox, zinc, vitamins, solumedrol, bronchodilators. 03/21/2021 patient is currently sitting in the chair. Awake alert and appears to be in no distress. Still requiring Airvo high flow oxygen at 55 L and 85% FiO2 and saturating at 87 to 92%. Patient is being pending IV Solu-Medrol, valacyclovir and Lovenox subcu and multivitamin supplementation. Laboratory data showed WBC 3.4 hemoglobin 13.9 and platelets 145 sodium 141 potassium 3.4 creatinine 1.4 AST 35 and ALT 68. Pulmonary is on board. 03/22/2021 patient is currently sitting wheelchair. Awake alert and oriented. Appears to be mild distress. Requiring high flow oxygen at 60 L and FiO2 85%. Otherwise patient is being current on IV Solu-Medrol and valacyclovir and Lovenox subcu. Laboratory data showed WBC 18.6 hemoglobin 13.7 and platelets 133 sodium 143 potassium 3.6 creatinine 1.4 LDH 597 and CRP less than 0.3. Patient is able to tolerate oral diet. No nausea vomiting abdominal pain or diarrhea. Denies any dysuria or hematuria. 03/23/2021 patient is currently sitting in the chair comfortably. Awake alert and oriented x3. Denies any complaints of chest pain or worsening shortness breath. Requ iring high flow oxygen at 55 L and FiO2 85%. Patient is being current on IV Solu-Medrol baricitinib is on hold due to low absolute lymphocyte count. Lymphocytes 0.1 Laboratory data showed WBC 26.0 hemoglobin 14.4 and platelets 154 sodium 139 potassium 3.2 chloride 98 BUN 65 and creatinine 1.22 patient is also Lovenox subcu and multivitamin supplementation 03/24/2021 patient is currently in the medical floor. Sitting in the chair comfortably. Mild cough. Otherwise overall clinically improving. Still requiring high flow oxygen 55 L at 80% FiO2. Able to tolerate oral diet. Patient is being continued on IV Solu-Medrol, Lovenox and multivitamin supplementation. Laboratory data showed WBC 22.1 hemoglobin 14.0 and platelets 152 sodium 138 potassium 3.3 chloride 97 bicarb is 34 BUN 65 and creatinine 1.23 03/25/2021 Patient is currently sitting in the chair comfortably. Awake alert and orie nted. No complaints of chest pain or worsening shortness breath. Still requiring high flow oxygen at 50 L 80% FiO2. Patient is being current IV Solu-Medrol and Lovenox subcu. Baricitinib is on hold due to low absolute lymphocyte l count. Patient is also on Lasix 40 mg every 12. Laboratory data showed WBC 19.8 hemoglobin 14.1 platelets 164 BUN 16 creatinine 1.13 and blood sugar was 48 this morning. 03/26/2021 Patient is currently sitting in the chair. Maintained on Airvo high flow oxygen with FiO2 77% and 50 L. Saturating at 91%. Currently being continued on IV Solu-Medrol and baricitinib remains on hold due to low absolute lymphocyte count. Patient is also being current on IV Lasix 40 mg every 12. Laboratory data showed WBC 15.0 hemoglobin 14.3 and platelets 163 BUN 56 and creatinine 1.14. Bilateral scattered coarse sounds are still present.shortness of breath with exertion. Patient has been afebrile. 03/27/2021 Patient is currently resting in the chair. Still requiring high flow oxygen at 45 L and FiO2 73% and saturating at 90 to 93%. Patient is having exertional dyspnea even with minimal walking. No complaints of chest pain. Patient has been afebrile. No nausea vomiting or abdominal pain or diarrhea. Patient is being turned IV Lasix and change to torsemide. Patient is also on IV Solu-Medrol, Lovenox subcu and multivitamin supplementation. Baricitinib is on hold due to low absolute lymphocyte count. Pulmonary and nephrology is on board. Laboratory data showed WBC improved to 14.0 hemoglobin 14.0 and platelets 188 Sodium 130 and potassium 3.4 chloride 96 bicarb is 39 BUN 53 and creatinine 1.05 CRP 2.0 and LDH 1376. ROS Constitutional: Denied any fatigue denied any fever. Cardio vascular: denied any chest pain, palpitations Gastrointestinal denied any nausea vomiting Pulmonary: Reports shortness of breath with exertion, mild at rest, reports cough Neurologic denied any new focal deficits All inpatient medications were reviewed and appropriate changes in these medications as dictated in the interval history and assessment and plan. Objective - Vital Signs Vital signs: Vital Signs Temp 98.2 F 03/27/21 18:00 Pulse 86 03/27/21 18:00 Resp 19 03/27/21 18:00 BP 147/78 03/27/21 18:00 Pulse Ox 93 L 03/27/21 18:00 Intake & Output 03/27/21 03/27/21 03/28/21 06:59 18:59 06:59 Output Total 1050 Balance -1050 Weight 95.2 kg Output: Urine 1050 Other: Voiding Method Urinal - Exam PHYSICAL EXAMINATION: GENERAL: The patient is alert and oriented x3, fatigues easy with activity even when talking HEENT: Pupils are round and equally reacting to light. EOMI. No scleral icterus. No conjunctival pallor. Normocephalic, atraumatic. No pharyngeal erythema. No thyromegaly. CARDIOVASCULAR: S1 and S2 present. No murmurs, rubs, or gallops. PULMONARY: Coarse scattered rhonchi throughout ABDOMEN: Soft, nontender, nondistended, normoactive bowel sounds. No palpable organomegaly. MUSCULOSKELETAL: No joint swelling or deformity. EXTREMITIES: No cyanosis, clubbing, +2 peripheral edema legs [place] wrapped. NEUROLOGICAL: Gross neurological examination did not reveal any focal deficits. SKIN: No rashes. - Labs CBC & Chem 7: 03/28/21 05:41 03/29/21 06:57 Labs: Abnormal Lab Results - Last 24 Hours (Table) 03/27/21 03/27/21 03/27/21 Range/Units 06:27 06:27 06:27 WBC 14.0 H (3.8-10.6) k/uL MCV 100.7 H (80.0-100.0) fL Neutrophils # 13.3 H (1.3-7.7) k/uL Lymphocytes # 0.2 L (1.0-4.8) k/uL D-Dimer 1.10 H (<0.60) mg/L FEU Potassium 3.4 L (3.5-5.1) mmol/L Chloride 96 L (98-107) mmol/L Carbon Dioxide 39 H (22-30) mmol/L BUN 53 H (9-20) mg/dL POC Glucose (mg/dL) (75-99) mg/dL ALT 119 H (4-49) U/L Lactate Dehydrogenase 1376 H (313-618) U/L C-Reactive Protein 2.0 H (<1.0) mg/dL Total Protein 5.8 L (6.3-8.2) g/dL Albumin 3.0 L (3.5-5.0) g/dL 03/27/21 03/27/21 03/27/21 Range/Units 11:50 17:02 20:05 WBC (3.8-10.6) k/uL MCV (80.0-100.0) fL Neutrophils # (1.3-7.7) k/uL Lymphocytes # (1.0-4.8) k/uL D-Dimer (<0.60) mg/L FEU Potassium (3.5-5.1) mmol/L Chloride (98-107) mmol/L Carbon Dioxide (22-30) mmol/L BUN (9-20) mg/dL POC Glucose (mg/dL) 300 H 209 H 155 H (75-99) mg/dL ALT (4-49) U/L Lactate Dehydrogenase (313-618) U/L C-Reactive Protein (<1.0) mg/dL Total Protein (6.3-8.2) g/dL Albumin (3.5-5.0) g/dL Assessment and Plan Assessment: Assessment and plan -Acute on chronic hypoxic respiratory failure secondary to COVID-19 pneumonia wears 4L of oxygen at home, on Airvo now - Covid 19 pneumonia. He on steroids and Barcitinib, Remdesivir -Leukocytosis secondary to above -Congestive heart failure chronic diastolic dysfunction with acute exacerbation at this time patient the BNP is only 206, most recent echo shows an EF of greater than 55%. on IV lasix -acute renal failure: Probably secondary to heart failure, on IV lasix -Acute COPD exacerbation -Mild transaminitis which is better at compared to his previous admission, chronic no further intervention at this time COVID-19 can cause transaminitis is Possible congestive heart failure chronic diastolic dysfunction with mild acute exacerbation -Elevated inflammatory markers of COVID-19 -Elevated DD secondary to COVID-19 infection, doppler negative for bilateral DVT -Chronic kidney disease stage III -Gastroesophageal reflux disease -Coronary artery disease -Type 2 diabetes mellitus insulin-dependent, exacerbated by steroids -Diabetic peripheral neuropathy -Obstructive sleep apnea -Chronic hypoxic respiratory failure Secondary to COPD and the sleep apnea -Hypertension -Hyperlipidemia -Benign prostatic hypertrophy -Chronic low back pain -History of DVT in the past for which patient is on not on any anti-coagulation presently DVT prophylaxis: Lovenox GI Prophylaxis: Protonix Plan Continue Solu-medrol, zinc, vitamins, lovenox,Baricitinib on hold due to low ALC Continue bronchodilators Adjust insulin Continue all other supportive care Repeat labs tomorrow Prognosis is guarded for this patient. Time with Patient: Greater than 30
--- NOTE | 2021-03-29 22:07 | P.PN ---
Subjective Progress Note Date: 03/28/21 Principal diagnosis: Acute on chronic hypoxic respiratory failure secondary to COVID-19 pneumonia Patient is a 71-year-old white male with a chronic medical problems a chronic hypoxic respiratory failure uses about 4 L of oxygen at home came in the with complaints of shortness of breath and cough restarted couple days ago was also having fever restarted couple days ago. Patient is found to have COVID-19 patient has multiple other medical problems chronically and patient does have history of COPD possible chronic diastolic dysfunction patient was on IV Lasix in the past. 03/13/2021 Patient evaluated today sitting on the edge of the bed. He is requiring oxygen at 7L HF with a saturation of 91%. Blood pressure 148/76, heart rate 74, temp 98.2. Labs today include WBC of 13.08, hgb 12.3, sodium 143, potassium 4.0, AST 55, ALT 94, LDH 526, CRP 13.60. DD 5.97, doppler negative for bilateral DVT. Pulmonary consultation today who increased decadron to twice a day and started the patient on remdesivir. Patient is also on subcu heparin, zinc, vitamins. 03/14/2021 Patient has been able to ambulate around his room while on oxygen. Vital signs included temperature of 91, heart rate 66 sinus rhythm, respirations 18, blood pressure 139/65 and he is 90% on 12 L high flow nasal cannula. Oxygen saturation has been progressively increasing. Labs today show a white count of 16.99, hemoglobin 12.8, sodium 146, glucose in the 70s, AST 68, ALT 96. Will repeat a chest x-ray in the morning as well as repeat labs and inflammatory markers. He continues on Lovenox, zinc, vitamins, he was started on IV remdesivir from pulmonary services today. Procalcitonin pending. Apparently patient has been refusing ketorolac eyedrops as he states that he is done taking outpatient; discontinued the order. 03/15/2021 Patient says he is feeling better patient the arms and requirements went up yesterday was on 10 L now came down to 8 L patient overall feels better but as per the nursing staff patient has been occasionally getting confused which is not unexpected for for him as he had sundowners in the past and patient is also on stress steroids which can do that. Patient was started on IV Lasix because of increased swelling in bilateral lower extremities patient barely takes one 20 mg of by mouth Lasix at home although it was documented as 20 mg. We'll continue with IV Lasix will monitor I's and O's will continue to wean off his oxygen. 03/16/2021 Patient feels better but his oxygen requirements remain the same patient remains on IV Lasix creatinine is around 1.3 compared to 1.2 on admission will continue to closely monitor his kidney function and the input and output. Patient remains on IV steroids blood sugars are within normal limits leukocytosis improved a bit. 03/17/2021 Patient has occasional confusional episodes during nighttime she is being well managed by Seroquel. The patient is presently on 15 L of oxygen patient swelling in bilateral lower x-ray significantly improved still has some swelling continue with IV Lasix creatinine remained stable at 1.2 serum sodium within normal limits. 03/18/2021 Patient was pretty status is worse today and patient is requiring airvo, patient has significant Swelling in bilateral lower extremities which is a worse compared to yesterday patient is on the Lasix every 12 hourly which will be changed to create hourly and we'll also get the opinion of nephrology testing that his creatinine went up to 1.5. Patient looks tired although patient says he is okay. Patient completed Remdesivir and was started on Barcitinib. 03/19/2021 Patient evaluated today sitting in the edge of the bed. He maintains on an aerosol as well as a nonrebreather. Patient has bilateral lower extremity edema which is [place] wrapped, edema is still +2 pitting above the wraps, he continues on IV lasix Q8. He appears to be about a -2.5 L fluid balance in the last 24 hours. Vital signs reviewed, he is afebrile, heart rate 72, respirations 28, blood pressure 137/75 and he is 90% on a 55 L Airvo with a 100% nonrebreather ma sk. Patient was able to carry on full conversation however once he pauses he does become hypoxic, 87-88%, recovers though. Labs reviewed today include a white count 12.52, hemoglobin 13.4, d-dimer 1.03, sodium 143, potassium 4.2, creatinine 1.4, BUN 58.8. Sugars are in the 200s up to as high as 329, AST is 42, ALT 72 today. LDH is 612, CRP 1.30, which is slightly improved from yesterday. Chest x-ray today shows stable myocardial megaly, stable diffuse interstitial changes and patchy mid and lower lung infiltrates as seen with covid Pneumonia. He continues on Lovenox, vitamins, IV solu-medrol, and baricitinib. He is being followed closely by pulmonary services. Pending nephrology consultation. 03/20/2021 Patient evaluated today sitting up in chair he is on airvo 55L and NRB with an oxygen saturation of 95%, blood pressure 130/74, afebrile, heart rate 89. Labs today sodium 138, potassium 3.8, chloride 97, CO2 34, BUN 66, creatinine 1.30, blood glucose in the 150's today. He states that he feels slightly better than yesterday, although he is requiring alot of oxygen support. He has not had a bowel movement in a few days, he is urinating without difficulty. Has a productive cough. Nephrology has ordered post void residuals. He is also being followed closely by [facility]. Continues on baricitinib, lovenox, zinc, vitamins, solumedrol, bronchodilators. 03/21/2021 patient is currently sitting in the chair. Awake alert and appears to be in no distress. Still requiring Airvo high flow oxygen at 55 L and 85% FiO2 and saturating at 87 to 92%. Patient is being pending IV Solu-Medrol, valacyclovir and Lovenox subcu and multivitamin supplementation. Laboratory data showed WBC 3.4 hemoglobin 13.9 and platelets 145 sodium 141 potassium 3.4 creatinine 1.4 AST 35 and ALT 68. Pulmonary is on board. 03/22/2021 patient is currently sitting wheelchair. Awake alert and oriented. Appears to be mild distress. Requiring high flow oxygen at 60 L and FiO2 85%. Otherwise patient is being current on IV Solu-Medrol and valacyclovir and Lovenox subcu. Laboratory data showed WBC 18.6 hemoglobin 13.7 and platelets 133 sodium 143 potassium 3.6 creatinine 1.4 LDH 597 and CRP less than 0.3. Patient is able to tolerate oral diet. No nausea vomiting abdominal pain or diarrhea. Denies any dysuria or hematuria. 03/23/2021 patient is currently sitting in the chair comfortably. Awake alert and oriented x3. Denies any complaints of chest pain or worsening shortness breath. Requ iring high flow oxygen at 55 L and FiO2 85%. Patient is being current on IV Solu-Medrol baricitinib is on hold due to low absolute lymphocyte count. Lymphocytes 0.1 Laboratory data showed WBC 26.0 hemoglobin 14.4 and platelets 154 sodium 139 potassium 3.2 chloride 98 BUN 65 and creatinine 1.22 patient is also Lovenox subcu and multivitamin supplementation 03/24/2021 patient is currently in the medical floor. Sitting in the chair comfortably. Mild cough. Otherwise overall clinically improving. Still requiring high flow oxygen 55 L at 80% FiO2. Able to tolerate oral diet. Patient is being continued on IV Solu-Medrol, Lovenox and multivitamin supplementation. Laboratory data showed WBC 22.1 hemoglobin 14.0 and platelets 152 sodium 138 potassium 3.3 chloride 97 bicarb is 34 BUN 65 and creatinine 1.23 03/25/2021 Patient is currently sitting in the chair comfortably. Awake alert and orie nted. No complaints of chest pain or worsening shortness breath. Still requiring high flow oxygen at 50 L 80% FiO2. Patient is being current IV Solu-Medrol and Lovenox subcu. Baricitinib is on hold due to low absolute lymphocyte l count. Patient is also on Lasix 40 mg every 12. Laboratory data showed WBC 19.8 hemoglobin 14.1 platelets 164 BUN 16 creatinine 1.13 and blood sugar was 48 this morning. 03/26/2021 Patient is currently sitting in the chair. Maintained on Airvo high flow oxygen with FiO2 77% and 50 L. Saturating at 91%. Currently being continued on IV Solu-Medrol and baricitinib remains on hold due to low absolute lymphocyte count. Patient is also being current on IV Lasix 40 mg every 12. Laboratory data showed WBC 15.0 hemoglobin 14.3 and platelets 163 BUN 56 and creatinine 1.14. Bilateral scattered coarse sounds are still present.shortness of breath with exertion. Patient has been afebrile. 03/27/2021 Patient is currently resting in the chair. Still requiring high flow oxygen at 45 L and FiO2 73% and saturating at 90 to 93%. Patient is having exertional dyspnea even with minimal walking. No complaints of chest pain. Patient has been afebrile. No nausea vomiting or abdominal pain or diarrhea. Patient is being turned IV Lasix and change to torsemide. Patient is also on IV Solu-Medrol, Lovenox subcu and multivitamin supplementation. Baricitinib is on hold due to low absolute lymphocyte count. Pulmonary and nephrology is on board. Laboratory data showed WBC improved to 14.0 hemoglobin 14.0 and platelets 188 Sodium 130 and potassium 3.4 chloride 96 bicarb is 39 BUN 53 and creatinine 1.05 CRP 2.0 and LDH 1376. 03/28/2021 Patient is currently in the medical surgical unit. Sitting in the chair. Awake alert and oriented x3. Still having exertional dyspnea. Requiring high flow oxygen at 40 L with FiO2 74% and saturating at 88 to 90%. Able to breathe comfortably at rest. Patient is nonrebreather in between. Patient has been continued IV Solu-Medrol, Lovenox subcu and multivitamin supplementation. Continued on Demadex as per nephrology. Bilateral lower extremity leg swelling is still present. No complaints of chest pain. No nausea vomiting or abdominal pain or diarrhea. Denied any dysuria or hematuria. Laboratory data showed WBC 15.6 hemoglobin 14.5 and platelets 177 BUN 51.1 and creatinine 1.2 magnesium 2.1. Nephrology and pulmonary is on board. ROS Constitutional: Denied any fatigue denied any fever. Cardio vascular: denied any chest pain, palpitations Gastrointestinal denied any nausea vomiting Pulmonary: Reports shortness of breath with exertion, mild at rest, reports cough Neurologic denied any new focal deficits All inpatient medications were reviewed and appropriate changes in these medications as dictated in the interval history and assessment and plan. Objective - Vital Signs Vital signs: Vital Signs Temp 97.8 F 03/28/21 22:00 Pulse 73 03/28/21 22:00 Resp 15 03/28/21 22:00 BP 132/67 03/28/21 22:00 Pulse Ox 92 L 03/28/21 22:00 Intake & Output 03/28/21 03/28/21 03/29/21 06:59 18:59 06:59 Other: Voiding Method Urinal - Exam PHYSICAL EXAMINATION: GENERAL: The patient is alert and oriented x3, fatigues easy with activity even when talking HEENT: Pupils are round and equally reacting to light. EOMI. No scleral icterus. No conjunctival pallor. Normocephalic, atraumatic. No pharyngeal erythema. No thyromegaly. CARDIOVASCULAR: S1 and S2 present. No murmurs, rubs, or gallops. PULMONARY: Coarse scattered rhonchi throughout ABDOMEN: Soft, nontender, nondistended, normoactive bowel sounds. No palpable organomegaly. MUSCULOSKELETAL: No joint swelling or deformity. EXTREMITIES: No cyanosis, clubbing, +2 peripheral edema legs [place] wrapped. NEUROLOGICAL: Gross neurological examination did not reveal any focal deficits. SKIN: No rashes. - Labs CBC & Chem 7: 03/28/21 05:41 03/29/21 06:57 Labs: Abnormal Lab Results - Last 24 Hours (Table) 03/28/21 03/28/21 03/28/21 Range/Units 05:41 05:41 11:27 WBC 15.6 H (3.8-10.6) k/uL MCV 101.0 H (80.0-100.0) fL Neutrophils # 14.7 H (1.3-7.7) k/uL Lymphocytes # 0.2 L (1.0-4.8) k/uL Carbon Dioxide 29.8 H (20.0-27.5) mmol/L BUN 51.1 H (9.0-27.0) mg/dL BUN/Creatinine Ratio 42.58 H (12.00-20.00) Ratio POC Glucose (mg/dL) 151 H (75-99) mg/dL Calcium 8.6 L (8.7-10.3) mg/dL 03/28/21 03/28/21 Range/Units 16:59 19:27 WBC (3.8-10.6) k/uL MCV (80.0-100.0) fL Neutrophils # (1.3-7.7) k/uL Lymphocytes # (1.0-4.8) k/uL Carbon Dioxide (20.0-27.5) mmol/L BUN (9.0-27.0) mg/dL BUN/Creatinine Ratio (12.00-20.00) Ratio POC Glucose (mg/dL) 135 H 187 H (75-99) mg/dL Calcium (8.7-10.3) mg/dL Assessment and Plan Assessment: Assessment and plan -Acute on chronic hypoxic respiratory failure secondary to COVID-19 pneumonia wears 4L of oxygen at home, on Airvo now - Covid 19 pneumonia. He on steroids and Barcitinib, Remdesivir -Leukocytosis secondary to above -Congestive heart failure chronic diastolic dysfunction with acute exacerbation at this time patient the BNP is only 206, most recent echo shows an EF of greater than 55%. on IV lasix -acute renal failure: Probably secondary to heart failure, on IV lasix -Acute COPD exacerbation -Mild transaminitis which is better at compared to his previous admission, chronic no further intervention at this time COVID-19 can cause transaminitis is Possible congestive heart failure chronic diastolic dysfunction with mild acute exacerbation -Elevated inflammatory markers of COVID-19 -Elevated DD secondary to COVID-19 infection, doppler negative for bilateral DVT -Chronic kidney disease stage III -Gastroesophageal reflux disease -Coronary artery disease -Type 2 diabetes mellitus insulin-dependent, exacerbated by steroids -Diabetic peripheral neuropathy -Obstructive sleep apnea -Chronic hypoxic respiratory failure Secondary to COPD and the sleep apnea -Hypertension -Hyperlipidemia -Benign prostatic hypertrophy -Chronic low back pain -History of DVT in the past for which patient is on not on any anti-coagulation presently DVT prophylaxis: Lovenox GI Prophylaxis: Protonix Plan Continue Solu-medrol, zinc, vitamins, lovenox,Baricitinib on hold due to low ALC Continue bronchodilators Adjust insulin Continue all other supportive care Repeat labs tomorrow Prognosis is guarded for this patient. Time with Patient: Greater than 30
--- NOTE | 2021-03-29 22:10 | P.PN ---
Subjective Progress Note Date: 03/29/21 Principal diagnosis: Acute on chronic hypoxic respiratory failure secondary to COVID-19 pneumonia Patient is a 71-year-old white male with a chronic medical problems a chronic hypoxic respiratory failure uses about 4 L of oxygen at home came in the with complaints of shortness of breath and cough restarted couple days ago was also having fever restarted couple days ago. Patient is found to have COVID-19 patient has multiple other medical problems chronically and patient does have history of COPD possible chronic diastolic dysfunction patient was on IV Lasix in the past. 03/13/2021 Patient evaluated today sitting on the edge of the bed. He is requiring oxygen at 7L HF with a saturation of 91%. Blood pressure 148/76, heart rate 74, temp 98.2. Labs today include WBC of 13.08, hgb 12.3, sodium 143, potassium 4.0, AST 55, ALT 94, LDH 526, CRP 13.60. DD 5.97, doppler negative for bilateral DVT. Pulmonary consultation today who increased decadron to twice a day and started the patient on remdesivir. Patient is also on subcu heparin, zinc, vitamins. 03/14/2021 Patient has been able to ambulate around his room while on oxygen. Vital signs included temperature of 91, heart rate 66 sinus rhythm, respirations 18, blood pressure 139/65 and he is 90% on 12 L high flow nasal cannula. Oxygen saturation has been progressively increasing. Labs today show a white count of 16.99, hemoglobin 12.8, sodium 146, glucose in the 70s, AST 68, ALT 96. Will repeat a chest x-ray in the morning as well as repeat labs and inflammatory markers. He continues on Lovenox, zinc, vitamins, he was started on IV remdesivir from pulmonary services today. Procalcitonin pending. Apparently patient has been refusing ketorolac eyedrops as he states that he is done taking outpatient; discontinued the order. 03/15/2021 Patient says he is feeling better patient the arms and requirements went up yesterday was on 10 L now came down to 8 L patient overall feels better but as per the nursing staff patient has been occasionally getting confused which is not unexpected for for him as he had sundowners in the past and patient is also on stress steroids which can do that. Patient was started on IV Lasix because of increased swelling in bilateral lower extremities patient barely takes one 20 mg of by mouth Lasix at home although it was documented as 20 mg. We'll continue with IV Lasix will monitor I's and O's will continue to wean off his oxygen. 03/16/2021 Patient feels better but his oxygen requirements remain the same patient remains on IV Lasix creatinine is around 1.3 compared to 1.2 on admission will continue to closely monitor his kidney function and the input and output. Patient remains on IV steroids blood sugars are within normal limits leukocytosis improved a bit. 03/17/2021 Patient has occasional confusional episodes during nighttime she is being well managed by Seroquel. The patient is presently on 15 L of oxygen patient swelling in bilateral lower x-ray significantly improved still has some swelling continue with IV Lasix creatinine remained stable at 1.2 serum sodium within normal limits. 03/18/2021 Patient was pretty status is worse today and patient is requiring airvo, patient has significant Swelling in bilateral lower extremities which is a worse compared to yesterday patient is on the Lasix every 12 hourly which will be changed to create hourly and we'll also get the opinion of nephrology testing that his creatinine went up to 1.5. Patient looks tired although patient says he is okay. Patient completed Remdesivir and was started on Barcitinib. 03/19/2021 Patient evaluated today sitting in the edge of the bed. He maintains on an aerosol as well as a nonrebreather. Patient has bilateral lower extremity edema which is [place] wrapped, edema is still +2 pitting above the wraps, he continues on IV lasix Q8. He appears to be about a -2.5 L fluid balance in the last 24 hours. Vital signs reviewed, he is afebrile, heart rate 72, respirations 28, blood pressure 137/75 and he is 90% on a 55 L Airvo with a 100% nonrebreather ma sk. Patient was able to carry on full conversation however once he pauses he does become hypoxic, 87-88%, recovers though. Labs reviewed today include a white count 12.52, hemoglobin 13.4, d-dimer 1.03, sodium 143, potassium 4.2, creatinine 1.4, BUN 58.8. Sugars are in the 200s up to as high as 329, AST is 42, ALT 72 today. LDH is 612, CRP 1.30, which is slightly improved from yesterday. Chest x-ray today shows stable myocardial megaly, stable diffuse interstitial changes and patchy mid and lower lung infiltrates as seen with covid Pneumonia. He continues on Lovenox, vitamins, IV solu-medrol, and baricitinib. He is being followed closely by pulmonary services. Pending nephrology consultation. 03/20/2021 Patient evaluated today sitting up in chair he is on airvo 55L and NRB with an oxygen saturation of 95%, blood pressure 130/74, afebrile, heart rate 89. Labs today sodium 138, potassium 3.8, chloride 97, CO2 34, BUN 66, creatinine 1.30, blood glucose in the 150's today. He states that he feels slightly better than yesterday, although he is requiring alot of oxygen support. He has not had a bowel movement in a few days, he is urinating without difficulty. Has a productive cough. Nephrology has ordered post void residuals. He is also being followed closely by panda. Continues on baricitinib, lovenox, zinc, vitamins, solumedrol, bronchodilators. 03/21/2021 patient is currently sitting in the chair. Awake alert and appears to be in no distress. Still requiring Airvo high flow oxygen at 55 L and 85% FiO2 and saturating at 87 to 92%. Patient is being pending IV Solu-Medrol, valacyclovir and Lovenox subcu and multivitamin supplementation. Laboratory data showed WBC 3.4 hemoglobin 13.9 and platelets 145 sodium 141 potassium 3.4 creatinine 1.4 AST 35 and ALT 68. Pulmonary is on board. 03/22/2021 patient is currently sitting wheelchair. Awake alert and oriented. Appears to be mild distress. Requiring high flow oxygen at 60 L and FiO2 85%. Otherwise patient is being current on IV Solu-Medrol and valacyclovir and Lovenox subcu. Laboratory data showed WBC 18.6 hemoglobin 13.7 and platelets 133 sodium 143 potassium 3.6 creatinine 1.4 LDH 597 and CRP less than 0.3. Patient is able to tolerate oral diet. No nausea vomiting abdominal pain or diarrhea. Denies any dysuria or hematuria. 03/23/2021 patient is currently sitting in the chair comfortably. Awake alert and oriented x3. Denies any complaints of chest pain or worsening shortness breath. Requ iring high flow oxygen at 55 L and FiO2 85%. Patient is being current on IV Solu-Medrol baricitinib is on hold due to low absolute lymphocyte count. Lymphocytes 0.1 Laboratory data showed WBC 26.0 hemoglobin 14.4 and platelets 154 sodium 139 potassium 3.2 chloride 98 BUN 65 and creatinine 1.22 patient is also Lovenox subcu and multivitamin supplementation 03/24/2021 patient is currently in the medical floor. Sitting in the chair comfortably. Mild cough. Otherwise overall clinically improving. Still requiring high flow oxygen 55 L at 80% FiO2. Able to tolerate oral diet. Patient is being continued on IV Solu-Medrol, Lovenox and multivitamin supplementation. Laboratory data showed WBC 22.1 hemoglobin 14.0 and platelets 152 sodium 138 potassium 3.3 chloride 97 bicarb is 34 BUN 65 and creatinine 1.23 03/25/2021 Patient is currently sitting in the chair comfortably. Awake alert and orie nted. No complaints of chest pain or worsening shortness breath. Still requiring high flow oxygen at 50 L 80% FiO2. Patient is being current IV Solu-Medrol and Lovenox subcu. Baricitinib is on hold due to low absolute lymphocyte l count. Patient is also on Lasix 40 mg every 12. Laboratory data showed WBC 19.8 hemoglobin 14.1 platelets 164 BUN 16 creatinine 1.13 and blood sugar was 48 this morning. 03/26/2021 Patient is currently sitting in the chair. Maintained on Airvo high flow oxygen with FiO2 77% and 50 L. Saturating at 91%. Currently being continued on IV Solu-Medrol and baricitinib remains on hold due to low absolute lymphocyte count. Patient is also being current on IV Lasix 40 mg every 12. Laboratory data showed WBC 15.0 hemoglobin 14.3 and platelets 163 BUN 56 and creatinine 1.14. Bilateral scattered coarse sounds are still present.shortness of breath with exertion. Patient has been afebrile. 03/27/2021 Patient is currently resting in the chair. Still requiring high flow oxygen at 45 L and FiO2 73% and saturating at 90 to 93%. Patient is having exertional dyspnea even with minimal walking. No complaints of chest pain. Patient has been afebrile. No nausea vomiting or abdominal pain or diarrhea. Patient is being turned IV Lasix and change to torsemide. Patient is also on IV Solu-Medrol, Lovenox subcu and multivitamin supplementation. Baricitinib is on hold due to low absolute lymphocyte count. Pulmonary and nephrology is on board. Laboratory data showed WBC improved to 14.0 hemoglobin 14.0 and platelets 188 Sodium 130 and potassium 3.4 chloride 96 bicarb is 39 BUN 53 and creatinine 1.05 CRP 2.0 and LDH 1376. 03/28/2021 Patient is currently in the medical surgical unit. Sitting in the chair. Awake alert and oriented x3. Still having exertional dyspnea. Requiring high flow oxygen at 40 L with FiO2 74% and saturating at 88 to 90%. Able to breathe comfortably at rest. Patient is nonrebreather in between. Patient has been continued IV Solu-Medrol, Lovenox subcu and multivitamin supplementation. Continued on Demadex as per nephrology. Bilateral lower extremity leg swelling is still present. No complaints of chest pain. No nausea vomiting or abdominal pain or diarrhea. Denied any dysuria or hematuria. Laboratory data showed WBC 15.6 hemoglobin 14.5 and platelets 177 BUN 51.1 and creatinine 1.2 magnesium 2.1. Nephrology and pulmonary is on board. 03/29/2021 Patient is currently sitting in the chair. Awake alert and oriented. Still morris ving shortness of breath with minimal exertion. Requiring high flow oxygen at 40 L with FiO2 73% and pulse ox is 93%. Denies any complaints of chest pain. No worsening shortness of breath. Mild cough without any sputum production. No fever no chills. Patient is on diuretics with torsemide. Continued on IV Solu-Medrol, Lovenox subcu and multivitamin supplementation. Baricitinib is on hold due to low absolute lymphocyte count. Bilateral leg swelling is improving. Chest x-ray done today morning showed bilateral patchy and interstitial COVID infiltrates persist without significant change. Some underlying linear external artifacts on both sides. Laboratory data showed D-dimer 0.93 sodium 145 potassium 3.7 chloride 96 BUN 58 and creatinine 1.2 CRP 1.1 and LDH 530. Blood sugar is 112. ROS Constitutional: Denied any fatigue denied any fever. Cardio vascular: denied any chest pain, palpitations Gastrointestinal denied any nausea vomiting Pulmonary: Reports shortness of breath with exertion, mild at rest, reports cough Neurologic denied any new focal deficits All inpatient medications were reviewed and appropriate changes in these medications as dictated in the interval history and assessment and plan. Objective - Vital Signs Vital signs: Vital Signs Temp 98 F 03/29/21 18:00 Pulse 94 03/29/21 18:00 Resp 16 03/29/21 18:00 BP 128/77 03/29/21 18:00 Pulse Ox 93 L 03/29/21 20:17 Intake & Output 03/29/21 03/29/21 03/30/21 06:59 18:59 06:59 Intake Total 836 Output Total 600 Balance -600 836 Weight 93.44 kg Intake: Oral 836 Output: Urine 600 - Exam PHYSICAL EXAMINATION: GENERAL: The patient is alert and oriented x3, fatigues easy with activity even when talking HEENT: Pupils are round and equally reacting to light. EOMI. No scleral icterus. No conjunctival pallor. Normocephalic, atraumatic. No pharyngeal erythema. No thyromegaly. CARDIOVASCULAR: S1 and S2 present. No murmurs, rubs, or gallops. PULMONARY: Coarse scattered rhonchi throughout ABDOMEN: Soft, nontender, nondistended, normoactive bowel sounds. No palpable organomegaly. MUSCULOSKELETAL: No joint swelling or deformity. EXTREMITIES: No cyanosis, clubbing, +2 peripheral edema legs [place] wrapped. NEUROLOGICAL: Gross neurological examination did not reveal any focal deficits. SKIN: No rashes. - Labs CBC & Chem 7: 03/28/21 05:41 03/29/21 06:57 Labs: Abnormal Lab Results - Last 24 Hours (Table) 03/29/21 03/29/21 03/29/21 Range/Units 06:57 06:58 07:14 D-Dimer 0.93 H (<0.60) mg/L FEU Carbon Dioxide 31.0 H (20.0-27.5) mmol/L BUN 58.0 H (9.0-27.0) mg/dL Est GFR (CKD-EPI)NonAf 58.3 L (60.0-200.0) BUN/Creatinine Ratio 47.15 H (12.00-20.00) Ratio Glucose 112 H (70-110) mg/dL POC Glucose (mg/dL) 127 H (75-99) mg/dL Lactate Dehydrogenase 530 H (120-246) U/L C-Reactive Protein 1.10 H (0.00-0.80) mg/dL 03/29/21 03/29/21 03/29/21 Range/Units 12:02 16:50 20:06 D-Dimer (<0.60) mg/L FEU Carbon Dioxide (20.0-27.5) mmol/L BUN (9.0-27.0) mg/dL Est GFR (CKD-EPI)NonAf (60.0-200.0) BUN/Creatinine Ratio (12.00-20.00) Ratio Glucose (70-110) mg/dL POC Glucose (mg/dL) 211 H 222 H 249 H (75-99) mg/dL Lactate Dehydrogenase (120-246) U/L C-Reactive Protein (0.00-0.80) mg/dL Assessment and Plan Assessment: Assessment and plan -Acute on chronic hypoxic respiratory failure secondary to COVID-19 pneumonia wears 4L of oxygen at home, on Airvo now - Covid 19 pneumonia. He on steroids and Barcitinib, Remdesivir -Leukocytosis secondary to above -Congestive heart failure chronic diastolic dysfunction with acute exacerbation at this time patient the BNP is only 206, most recent echo shows an EF of greater than 55%. on IV lasix -acute renal failure: Probably secondary to heart failure, on IV lasix -Acute COPD exacerbation -Mild transaminitis which is better at compared to his previous admission, chronic no further intervention at this time COVID-19 can cause transaminitis is Possible congestive heart failure chronic diastolic dysfunction with mild acute exacerbation -Elevated inflammatory markers of COVID-19 -Elevated DD secondary to COVID-19 infection, doppler negative for bilateral DVT -Chronic kidney disease stage III -Gastroesophageal reflux disease -Coronary artery disease -Type 2 diabetes mellitus insulin-dependent, exacerbated by steroids -Diabetic peripheral neuropathy -Obstructive sleep apnea -Chronic hypoxic respiratory failure Secondary to COPD and the sleep apnea -Hypertension -Hyperlipidemia -Benign prostatic hypertrophy -Chronic low back pain -History of DVT in the past for which patient is on not on any anti-coagulation presently DVT prophylaxis: Lovenox GI Prophylaxis: Protonix Plan Continue Solu-medrol, zinc, vitamins, lovenox, Baricitinib on hold due to low ALC Continue bronchodilators Continue to diuresis with torsemide. Adjust insulin Continue all other supportive care Repeat labs tomorrow Prognosis is guarded for this patient. Time with Patient: Greater than 30
[2021-03-30] MEDS: methylPREDNISolone SOD SUCCI 125 MG/2 ML VIAL IV SCH ×2 (04:06→08:20)
[2021-03-30 07:24] LABS: Glucose,Whole Blood 145 mg/dL (75-99)
[2021-03-30] MEDS: ALBUTEROL HFA INHALER INHALATION SCH ×4 (08:18→19:21)
[2021-03-30] MEDS: SYMBICORT 160-4.5 MCG INHALER INHALATION SCH ×2 (08:18→19:21)
[2021-03-30] MEDS: INSULIN ASPART (NovoLOG) 100 UNIT/ML VIAL SQ SCH ×8 (08:19→20:29)
[2021-03-30] MEDS: METOPROLOL TARTRATE 50 MG TAB PO SCH (08:20)
[2021-03-30] MEDS: FLUCONAZOLE 100 MG TAB PO SCH (08:20)
[2021-03-30] MEDS: allopurinoL 100 MG TAB PO SCH (08:20)
[2021-03-30] MEDS: TAMSULOSIN 0.4 MG CAP.ER.24H PO SCH (08:20)
[2021-03-30] MEDS: QUEtiapine 25 MG TAB PO SCH ×2 (08:20→20:30)
[2021-03-30] MEDS: ASPIRIN 81 MG PO SCH (08:21)
[2021-03-30] MEDS: PANTOPRAZOLE 40 MG TABLET PO SCH (08:21)
[2021-03-30] MEDS: FAMOTIDINE 20 MG TAB PO SCH (08:21)
[2021-03-30] MEDS: ENOXAPARIN 40 MG/0.4 ML SYRINGE SQ SCH (08:21)
[2021-03-30] MEDS: COLCHICINE 0.6 MG EACH PO SCH (08:21)
[2021-03-30] MEDS: ISOSORBIDE MONONITRATE ER 30 MG TAB.ER.24H PO SCH (08:21)
[2021-03-30] MEDS: CHOLECALCIFEROL 125 MCG (5000 IU) TABLET PO SCH (08:21)
[2021-03-30] MEDS: NYSTATIN 100,000 UNIT/ML SUSP 500,000 UNIT/5 ML CUP PO SCH ×4 (08:21→20:30)
[2021-03-30] MEDS: ZINC SULFATE 220 MG CAP PO SCH (08:21)
[2021-03-30] MEDS: TORSEMIDE 20 MG TAB PO SCH (08:21)
[2021-03-30] MEDS: ASCORBIC ACID 500 MG TAB PO SCH ×2 (08:21→20:30)
--- NOTE | 2021-03-30 10:44 | P.PN ---
Subjective Patient is seen in follow-up for chronic kidney disease. Renal function stable. Labs from today pending. On oral diuretics. Remains on airvo. Denies chest pain or shortness of breath. Admits to good urine output. No active complaints. Hemodynamically stable. Vital signs are stable. General: The patient appeared well nourished and normally developed. HEENT: Head exam is unremarkable. LUNGS: Breath sounds decreased. HEART: Rate and Rhythm are regular. ABDOMEN: Soft, obese. EXTREMITITES: 2+ edema. Objective - Vital Signs Vital signs: Vital Signs Temp 97.7 F 03/30/21 05:11 Pulse 72 03/30/21 05:11 Resp 17 03/30/21 05:11 BP 157/83 03/30/21 05:11 Pulse Ox 92 L 03/30/21 08:19 Intake & Output 03/29/21 03/30/21 03/30/21 18:59 06:59 18:59 Intake Total 836 Output Total 350 Balance 836 -350 Intake: Oral 836 Output: Urine 350 - Labs CBC & Chem 7: 03/28/21 05:41 03/29/21 06:57 Labs: Abnormal Lab Results - Last 24 Hours (Table) 03/29/21 03/29/21 03/29/21 Range/Units 06:57 12:02 16:50 Carbon Dioxide 31.0 H (20.0-27.5) mmol/L BUN 58.0 H (9.0-27.0) mg/dL Est GFR (CKD-EPI)NonAf 58.3 L (60.0-200.0) BUN/Creatinine Ratio 47.15 H (12.00-20.00) Ratio Glucose 112 H (70-110) mg/dL POC Glucose (mg/dL) 211 H 222 H (75-99) mg/dL Lactate Dehydrogenase 530 H (120-246) U/L C-Reactive Protein 1.10 H (0.00-0.80) mg/dL 03/29/21 03/30/21 Range/Units 20:06 07:23 Carbon Dioxide (20.0-27.5) mmol/L BUN (9.0-27.0) mg/dL Est GFR (CKD-EPI)NonAf (60.0-200.0) BUN/Creatinine Ratio (12.00-20.00) Ratio Glucose (70-110) mg/dL POC Glucose (mg/dL) 249 H 145 H (75-99) mg/dL Lactate Dehydrogenase (120-246) U/L C-Reactive Protein (0.00-0.80) mg/dL Assessment and Plan Plan: Assessment: 1. Chronic kidney disease stage III with baseline creatinine 1.2-1.3 secondary to diabetic kidney disease and cardiorenal syndrome. Creatinine stable at 1.2 yesterday. UA benign. 2. Acute on chronic diastolic CHF. 3. Volume overload. Edema worse today. 4. Hypokalemia from diuresis. Replaced. 5. COVID-19 pneumonia. Plan: Start Lasix drip at 10 mL an hour. Stop torsemide. 1500 mL fluid restriction. Avoid nephrotoxins. Continue to monitor renal function and urine output. Morning labs pending. Wean FiO2.
[2021-03-30 11:46] LABS: Glucose,Whole Blood 159 mg/dL (75-99)
[2021-03-30 11:46] LABS: Basophils # (A) 0.02 X 10*3/uL (0.00-0.10); Basophils % (A) 0.1 %; Eosinophils # (A) 0 X 10*3/uL (0.04-0.35); Eosinophils % (A) 0 %; HCT 44.1 % (39.6-50.0); HGB 13.9 g/dL (13.0-17.0); Lymphocytes # (A) 0.23 X 10*3/uL (0.90-5.00); Lymphocytes % (A) 1.4 %; MCHC 31.5 g/dL (32.0-37.0); MCV 101.4 fL (80.0-97.0); Mean Platelet Volume 12.8 fL (9.5-12.2); Monocytes # (A) 0.74 X 10*3/uL (0.20-1.00); Monocytes % (A) 4.5 %; Neutrophils # (A) 15.04 X 10*3/uL (1.80-7.70); Neutrophils % (A) 92.5 %; Platelet Count 169 X 10*3/uL (140-440); RBC 4.35 X 10*6/uL (4.40-5.60); RDW 14.7 % (11.5-14.5); WBC 16.27 X 10*3/uL (4.50-10.00)
[2021-03-30] MEDS: FUROSEMIDE 100 MG in SODIUM CHLORIDE 0.9% 90 ML IV SCH ×2 (12:30→20:56)
[2021-03-30 12:44] LABS: African American GFR (CKD) 58.8 (60.0-200.0); Anion Gap 17.2 mmol/L (10.00-18.00); BUN/Creat Ratio 48.84 Ratio (12.00-20.00); Blood Urea Nitrogen 67.4 mg/dL (9.0-27.0); C Reactive Protein 0.9 mg/dL (0.00-0.80); Calcium 8.6 mg/dL (8.7-10.3); Carbon Dioxide 29.1 mmol/L (20.0-27.5); Magnesium 2.2 mg/dL (1.5-2.4); Non-African American GFR(CKD) 50.7 (60.0-200.0); Potassium 3.9 mmol/L (3.5-5.5)
--- NOTE | 2021-03-30 15:09 | P.PN ---
Subjective Progress Note Date: 03/30/21 Principal diagnosis: Dyspnea This 71-year-old white male patient who follows with Dr. Torres in the pulmonary clinic for his history of advanced COPD on home oxygen patient usually wears 4 L on a regular basis, he is prednisone dependent and usually takes 20 mg on a regular basis, coronary artery disease, diabetes mellitus type 2, previous history of CVA, hypertension, hyperlipidemia, previous history of pneumonia, chronic kidney disease unspecified, sleep apnea, BPH, osteoarthritis. Patient presented to the emergency department on 03/12/2021 for evaluation of worsening dyspnea. Patient had a fever at home up to 101.7F. He saw Dr. Torres on Friday03/09/2021 and his antibiotics were changed. Patient was also given a prednisone taper and was placed on Levaquin. Has chronic swelling in his lower extremities which is unchanged. Of note patient was tested for COVID-19 on 03/02/2021 and was found to be negative. During this visit to the ED he tested positive on 03/12/2021. Patient has been vaccinated against COVID-19. His chest x-ray shows increasing diffuse interstitial opacity, with the possibility of fluid overload/CHF, interstitial pneumonitis, atypical pneumonia or chronic pneumonia. His blood work on admission has been reviewed showing white blood cell count of 12.7, hemoglobin of 12.3, his INR 0.9, sodium is 136, potassium is 4.2, chloride is 97, CO2 31, BUN is 55, creatinine is 1.28, troponin is less than 0.012, proBNP is within normal limits at 206. Patient has been started on Decadron 6 blood gram daily which we will increase to twice daily, he was placed on albuterol and Symbicort, he is on subcutaneous heparin 5000 units every 12 h ours, and the patient is within the window for Remdesivir which she will be started on today. On 03/14/2021 patient seen in follow-up on medical surgical floor, he is breathing comfortably, she is resting in bed, no worsening dyspnea, he is currently on 12 L of oxygen his pulse ox is 92%, does have mildly congested cough, no chest discomfort, blood pressure is stable, his been afebrile. Lower extremity Dopplers showed no evidence of DVT. Today's labs have been reviewed, his white count is 16.9, hemoglobin is 12.8, sodium is 146, the rest of electrolytes are within normal limits, BUN is 40, creatinine is 1.2. LDH was 526, not significantly elevated, CRP was 13.6, follow-up in addition he remains on prophylactic dose Lovenox, he is on Decadron 6 mg twice daily. On 03/15/2021 patient seen in follow-up on medical surgical floor. He is awake and alert, he is currently on 10 L of oxygen, down from 12 L on yesterday's exam, he states his breathing is improving, his coughing less, his been afebrile, hemodynamically stable, no chest discomfort. His been ambulating about the room, tolerates activity well. Today's chest x-ray showing mild cardiomegaly, and stable diffuse interstitial changes and patchy peripheral infiltrates. Today's labs have been reviewed, his white blood cell count is 21.2, hemoglobin is 13.3, his d-dimer is improved and is down to 1.23, sodium is 146, the rest of the electrolytes are within normal limits, BUN is 44, creatinine is 1.3. His LDH is 625, slightly increased from most previous value of 526, CRP is improved and is down to 4.7 on today's labs, pro-calcitonin level is negative 2 at 0.16, and 0.19. Blood cultures have shown no growth. He cur rently continues on Decadron 6 mg twice daily, he is on Lovenox 40 mg once daily, he is on IV Lasix 40 mg every 12 hours, and we started him on the Remdesivir yesterday and today is day 3 of treatment. On 03/16/2021 patient seen in follow-up on medical surgical floor, he is awake and alert, in no acute distress, he states his breathing is about the same, not any worse, however his oxygen demand has increased to 15 L, his pulse ox is 88- 90%, his been afebrile, blood pressures been stable, denies any chest discomfort, no hemoptysis, lung sounds reveal scattered crackles mostly at bilateral bases, his chest x-ray from yesterday showed mild cardiomegaly, diffuse interstitial changes. Patient has been on IV Lasix 40 mg twice daily unfortunately has not fluid balance is very difficult to estimate, his lower extremity edema appears to be slightly better. He continues on Remdesivir, and today is day 4 of treatment. Today's labs have been reviewed, his white count is improving and is down to 16.5, hemoglobin is 12.4, his d-dimer was improving on yesterday's labs, and was down to 1.23, patient remains on prophylactic dose Lovenox 40 mg daily, BUN is 47, creatinine is 1.3, potassium is 3.8, sodium is 141, pro-calcitonin level was negative 2. Blood cultures were negative 2. On 03/18/2021 patient seen in follow-up on medical surgical floor. Patient was noted to be desaturating on high flow nasal cannula and nonrebreather mask due to the low 80s, and he was initially placed on Airvo at 60 L and FiO2 of 90% in addition to a nonrebreather mask and his pulse ox is only 90%. Clinically he states he feels like his breathing is getting better, he looks comfortable, does not appear to be in any acute distress, not using accessory muscles of breathing, he finished his course of Remdesivir, he currently remains on Decadron 6 mg twice daily, Lovenox 20 mg once daily, she denies any chest discomfort, denies any hemoptysis. Today's labs have been reviewed, his white blood cell count is relatively stable at 16.3, hemoglobin is 13.2, his d-dimer is 1.01, sodium is 145, potassium is 4.5, chloride is 101, BUN is 54 creatinine is 1.5., His LDH is stable at 643, and CRP is improved and is down to 1.7, his pro-calcitonin level was negative on 05/16/2020 at 0.19. Blood cultures show no growth. On 03/19/2021 patient seen in follow-up on medical surgical floor, today he is on Airvo at 55 L and FiO2 of 88% in addition to nonrebreather mask, and his pulse ox is 90-91%, and as such his oxygenation requirement has increased He denies worsening dyspnea, he states he is breathing fairly comfortably, minimal wheezing on today's exam, yesterday we switched his IV steroids to IV Solu- Medrol 60 mg every 6 hours, less wheezing, less coughing, no crackles noted. His last chest x-ray from yesterday on 03/18/2021 showed stable cardio megaly, stable diffuse interstitial changes and patchy mid to lower lung peripheral infiltrates likely related to COVID-19 pneumonia. Currently patient is on Baricitinib, IV Solu-Medrol 60 mg every 6 hours, he is on IV Lasix 40 mg every 8 hours, Lovenox 40 mg once daily, he is on home dose colchicine 0.6 mg daily. Vital signs have been stable, his been afebrile. Mild edema in bilateral lower extremities. Today's labs have been reviewed, white blood cell count is improving and is down to 12.5, hemoglobin is 13.4, his neutrophil count is 11.1, leukocyte count of 0.7, electrolytes are unremarkable, B1 is 58 creatinine is 1.4, renal profile slightly improved from yesterday, nephrology is following, his inflammatory markers slightly improved and LDH is down to 612, and CRP is 1.3. On 03/20/2021 patient seen in follow-up on medical surgical floor. He is awake and alert, in no acute distress although still requiring high flow oxygen. He is sitting up in the recliner, currently on Airvo at 55 L and FiO2 of 88% in addition to 100% nonrebreather mask. His lung sounds are improved, he is less wheezy, no rhonchi, less congested, and he feels like his breathing is improving. Occasional cough, no significant phlegm production. Patient's nonrebreather mask was removed, and patient is maintaining O2 saturations at 95% on just Airvo at 55 L and FiO2 of 85%. Afebrile. Currently patient is on Baricitinib, IV Solu-Medrol 60 mg every 6 hours, he is on IV Lasix 40 mg every 12 hours, Lovenox 40 mg once daily, he is on home dose colchicine 0.6 mg daily. Vital signs have been stable, his been afebrile. Mild edema in bilateral lower extremities. No new chest x-ray today. Patient continues to diurese, he is in -880 mL net fluid balance over the last 24 hours, lower extremity edema is improving, breathing is improving. Today's labs have been reviewed, sodium is 138, potassium is 3.8, chloride is 97, CO2 is 34, B1 is 66 creatinine 1.3. On 03/26/2021 patient seen in follow-up on medical surgical floor. He is resting comfortably in the recliner, he remains on Airvo by 1574%, he is not requiring nonrebreather mask, breathing comfortably, he responds appropriately, does not appear to be in any acute distress, no complaint of chest pain, lung sounds are positive for diffuse rhonchi, still has mild chest congestion. Currently remains on Symbicort, Ventolin, he is on IV steroids 60 mg every 6 hours of Solu-Medrol, Baricitinib remains on hold related to low ALC which is at 0.2. Today's labs have been reviewed, his white blood cell count is improving and is down to 15, hemoglobin is 14.3, sodium is 140, potassium 3.7, chloride is 96, CO2 is 40, B1 is 56 creatinine is 1.14. His Lovenox is a 40 mg daily, she remains on IV diuretics with Lasix 40 mg every 12 hours. No worsening swelling in bilateral lower extremities, overall lower extremity edema has significantly improved, no net fluid balance is available for this shift. Overall his weight is down by 1.9 kg over last 24-48 hours. on 03/27/2021 patient seen in follow-up on medical surgical floor. Remains on Airvo down to 45 L and FiO2 of 73%, his pulse ox is 92-93%, he does desaturate and has exertional dyspnea. Afebrile. no complaints of chest discomfort, overall seems to be improving. today's labs have been reviewed. White count is improved and is down to 14, hemoglobin is 14, d-dimer is 1.1, sodium is 139, potassium 3.4, BUN is 53, and creatinine is 1.05. Baricitinib remains on hold, and absolute lymphocyte count remains low at 0.2. Continues on Lovenox 40 mg daily, continues on multivitamins and IV steroids at 60 mg every 6 hours.nephrology is following and his IV Lasix has been replaced with torsemide.he is in -1050 ML note fluid balance over the last 24 hours On 03/28/2021 patient seen in follow-up on medical surgical floor, he is cu rrently on Airvo at 40 L and 74%, breathing comfortably, his pulse ox is 88-90%, breathing comfortable, denies any worsening dyspnea no cough, last night patient apparently got very short of breath, desaturated, she required a nonrebreather mask. He had since recovered, he was taken off the nonrebreather mask, breathing much more comfortably. He states he gets short of breath usually late at night, he does have obstructive sleep apnea however he does not wear a CPAP at a regular basis at home. Baricitinib remains on hold, today's blood work is still pending to check on his ALC. Patient continues on IV Solu-Medrol 60 g every 6 hours, Lovenox 40 mg daily, he is on Symbicort, albuterol, his IV Lasix has been switched over to Demadex per nephrology. He still has significant lower extremity edema. Today's labs have been reviewed, white blood cell count is 15.6, hemoglobin is 14.5, sodium is 143, potassium 3.7, chloride is 97, BUN is 51, creatinine is 1.2, proBNP level is 720. Patient is in -1050 ML in upload balance over the last 24 hours. No complaints of chest discomfort. Follow-up chest x-ray has been obtained showing chronic changes with bilateral multifocal opacities without significant change compared the most previous chest x-ray On 03/29/2021 patient seen in follow-up on medical surgical floor. He is sitting up in the recliner, breathing comfortably, remains on Airvo currently at 40 L and FiO2 of 73%, and pulse ox is 93%, breathing comfortably, we ordered the patient BiPAP last night however Respiratory therapy did not apply it for unclear reasons. No acute events overnight, patient is breathing fairly comfortably, no worsening cough, lung sounds reveal a few scattered rhonchi and rales, no wheezing, no complaint of chest discomfort. Patient continues on Symbicort, Lovenox, continues on Demadex 20 mg daily and IV steroids with Solu- Medrol 60 mg every 6 hours. Appetite is fair. His weight is down by 1.8 kg in the last 24 hours, lower extremity edema is improving. Today's chest x-ray showing bilateral patchy and interstitial "infiltrates without significant change. Today's labs have been reviewed, his d-dimer is improving and is down to 0.93, sodium is 145, potassium 3.7, chloride is 96, B1 is 58, creatinine is 1.2, inflammatory markers are improving, LDH is down to 530, and CRP is 1.1. On 03/30/2021 patient seen in follow-up on medical surgical floor. He is currently on Airvo at 25 L and FiO2 of 60%, breathing comfortably, he is improvi ng, and he is being switched over to regular high flow nasal cannula at 15 L, BiPAP support was not applied on the patient last night, however patient could benefit from BiPAP support at bedtime knowing his history of COPD and obstructive sleep apnea and fluid overload, on today's exam his lower extremity edema has significantly increased, nephrology is following and starting him on Lasix infusion at 10 mg per hour. Lung sounds are positive for diffuse rhonchi, patient states she is not bringing up any phlegm, denies any chest pain, his been afebrile, denies any hemoptysis. He remains on IV Solu-Medrol 60 mg every 6 hours, he remains on inhaled bronchodilators Baricitinib remains on hold. Today's labs have been reviewed, his white count is 16.27, his hemoglobin is 13.9, sodium is 142, potassium is 3.9, chloride is 95, BUN is 67, creatinine is 1.4. His inflammatory markers are improving and his LDH is down to 597, and CRP is 0.90. Objective - Vital Signs Vital signs: Vital Signs Temp 98 F 03/30/21 14:00 Pulse 76 03/30/21 14:00 Resp 16 03/30/21 14:00 BP 127/70 03/30/21 14:00 Pulse Ox 96 03/30/21 14:00 Intake & Output 03/29/21 03/30/21 03/30/21 18:59 06:59 18:59 Intake Total 836 472 Output Total 350 Balance 836 -350 472 Intake: Oral 836 472 Output: Urine 350 - Exam GENERAL EXAM: Alert, very pleasant, 71-year-old white male, currently on Airvo at 25 L and FiO2 of 60% comfortable in no apparent distress. HEAD: Normocephalic/atraumatic. EYES: Normal reaction of pupils, equal size. Conjunctiva pink, sclera white. NOSE: Clear with pink turbinates. THROAT: No erythema or exudates. NECK: No masses, no JVD, no thyroid enlargement, no adenopathy. CHEST: No chest wall deformity. Symmetrical expansion. LUNGS: Equal air entry with diffuse crackles, and a few rhonchi CVS: Regular rate and rhythm, normal S1 and S2, no gallops, no murmurs, no rubs ABDOMEN: Soft, nontender. No hepatosplenomegaly, normal bowel sounds, no guarding or rigidity. EXTREMITIES: No clubbing, 2+ plus lower extremity edema with chronic venous stasis, no cyanosis, 2+ pulses and upper and lower extremities. MUSCULOSKELETAL: Muscle strength and tone normal. SPINE: No scoliosis or deformity SKIN: No rashes CENTRAL NERVOUS SYSTEM: Alert and oriented -3. No focal deficits, tone is normal in all 4 extremities. PSYCHIATRIC: Alert and oriented -3. Appropriate affect. Intact judgment and insight. - Labs CBC & Chem 7: 03/30/21 07:18 03/30/21 07:18 Labs: Abnormal Lab Results - Last 24 Hours (Table) 03/29/21 03/29/21 03/30/21 Range/Units 16:50 20:06 07:18 WBC (4.50-10.00) X 10*3/uL RBC (4.40-5.60) X 10*6/uL MCV (80.0-97.0) fL MCHC (32.0-37.0) g/dL RDW (11.5-14.5) % MPV (9.5-12.2) fL Immature Gran # (0.00-0.04) X 10*3/uL Neutrophils # (1.80-7.70) X 10*3/uL Lymphocytes # (0.90-5.00) X 10*3/uL Eosinophils # (0.04-0.35) X 10*3/uL Chloride 95 L (96-109) mmol/L Carbon Dioxide 29.1 H (20.0-27.5) mmol/L BUN 67.4 H (9.0-27.0) mg/dL Est GFR (CKD-EPI)AfAm 58.8 L (60.0-200.0) Est GFR (CKD-EPI)NonAf 50.7 L (60.0-200.0) BUN/Creatinine Ratio 48.84 H (12.00-20.00) Ratio Glucose 136 H (70-110) mg/dL POC Glucose (mg/dL) 222 H 249 H (75-99) mg/dL Calcium 8.6 L (8.7-10.3) mg/dL Lactate Dehydrogenase 597 H (120-246) U/L C-Reactive Protein 0.90 H (0.00-0.80) mg/dL 03/30/21 03/30/21 03/30/21 Range/Units 07:18 07:23 11:44 WBC 16.27 H (4.50-10.00) X 10*3/uL RBC 4.35 L (4.40-5.60) X 10*6/uL MCV 101.4 H (80.0-97.0) fL MCHC 31.5 L (32.0-37.0) g/dL RDW 14.7 H (11.5-14.5) % MPV 12.8 H (9.5-12.2) fL Immature Gran # 0.24 H (0.00-0.04) X 10*3/uL Neutrophils # 15.04 H (1.80-7.70) X 10*3/uL Lymphocytes # 0.23 L (0.90-5.00) X 10*3/uL Eosinophils # 0 L (0.04-0.35) X 10*3/uL Chloride (96-109) mmol/L Carbon Dioxide (20.0-27.5) mmol/L BUN (9.0-27.0) mg/dL Est GFR (CKD-EPI)AfAm (60.0-200.0) Est GFR (CKD-EPI)NonAf (60.0-200.0) BUN/Creatinine Ratio (12.00-20.00) Ratio Glucose (70-110) mg/dL POC Glucose (mg/dL) 145 H 159 H (75-99) mg/dL Calcium (8.7-10.3) mg/dL Lactate Dehydrogenase (120-246) U/L C-Reactive Protein (0.00-0.80) mg/dL Assessment and Plan Plan: Assessment: #1. Acute on chronic hypoxic respiratory failure related to acute COVID-19 related pneumonia, patient tested positive on 03/12/2021. Patient is vaccinated against COVID-19. His symptoms have worsened over last week, patient will be started on Remdesivir today on 03/13/2021, patient completed Remdesivir on 03/17/2021. Today his oxygenation is worse, and patient was placed on Airvo and nonrebreather and on Baricitinib since 03/18/2021, which was placed on hold on 03/25/2021 related to low ALC level #2. Acute exacerbation of COPD #3. Chronic COPD, advanced, with a baseline FEV1 of 1.71 L or FEV1 of 58% usually on home oxygen at 4 L #4. Recent 2 hospitalizations for acute exacerbation of COPD in early February, during which patient tested negative for COVID-19, urinalysis was also negative, influenza A and B were negative #5. Diabetes mellitus type 2 #6. Hypertension, #7. Hyperlipidemia #8. History of coronary artery disease with previous stenting #9. History of CHF, unspecified #10. History of CVA/TIA #11. Osteoarthritis #12. Chronic knee disease, unspecified #13. Chronic venous insufficiency #14. 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 Sleep apnea does not wear CPAP #17. Marijuana use #18. Elevated d-dimer related to acute COVID-19 infection, lower extremity Dopplers showed no evidence of DVT, d-dimer is improved since admission, patient is currently on twice-daily dose of Lovenox 40 mg Plan: BiPAP support at bedtime as previously ordered Patient has underlying history of COPD, obstructive sleep apnea, and right-sided heart failure, fluid overload, and could benefit from BiPAP support at bedtime Patient is currently on 15 L of oxygen, has been transitioned from Airvo We'll discontinue Baricitinib off the MAR Patient is being started on IV diuretics Continue with Solu-Medrol, will cut back the dose to 40 mg every 8 hours Continue current dose Lovenox will continue to follow clinical course I performed a history & physical examination of the patient and discussed their management with my nurse practitioner, Skylar Mckoy. I reviewed the nurse practitioner's note and agree with the documented findings and plan of care. Lung sounds are positive for crackles and rhonchi throughout the lung [place]. The findings and the impression was discussed with the patient. I attest to the documentation by the nurse practitioner. Time with Patient: Less than 30
[2021-03-30 16:42] LABS: Glucose,Whole Blood 148 mg/dL (75-99)
[2021-03-30] MEDS: methylPREDNISolone SOD SUCCI 40 MG/ML 1 ML VIAL IV SCH (17:12)
[2021-03-30 20:13] LABS: Glucose,Whole Blood 175 mg/dL (75-99)
[2021-03-30] MEDS: INSULIN DETEMIR (LEVEMIR) 100 UNIT/ML SYR SQ SCH (20:29)
[2021-03-30] MEDS: PRAMIPEXOLE 1 MG TAB PO SCH (20:30)
[2021-03-30] MEDS: METOPROLOL TARTRATE 25 MG TAB PO SCH (20:30)
[2021-03-31] MEDS: methylPREDNISolone SOD SUCCI 40 MG/ML 1 ML VIAL IV SCH ×4 (02:14→23:56)
[2021-03-31] MEDS: FUROSEMIDE 100 MG in SODIUM CHLORIDE 0.9% 90 ML IV SCH ×3 (05:28→23:56)
[2021-03-31 06:59] LABS: Glucose,Whole Blood 64 mg/dL (75-99)
[2021-03-31] MEDS: INSULIN ASPART (NovoLOG) 100 UNIT/ML VIAL SQ SCH ×8 (07:08→21:14)
--- NOTE | 2021-03-31 07:08 | XR ---
EXAMINATION TYPE: XR chest 1V portable DATE OF EXAM: 03/31/2021 CLINICAL HISTORY: Difficulty breathing and covid progress study. TECHNIQUE: Single AP portable upright view of the chest is obtained. COMPARISON: Chest x-ray from 2 days earlier and older studies FINDINGS: Metallic hardware from right shoulder surgery is partially imaged. Persistent bilateral in creased multifocal opacities on background chronic parenchymal changes. Stable cardiomegaly with athe rosclerotic aorta. IMPRESSION: Cardiomegaly and chronic parenchymal changes with bilateral multifocal opacities redemons trated consistent with covid-19 infection, no significant change from most recent x-rays.
[2021-03-31 07:15] LABS: Glucose,Whole Blood 69 mg/dL (75-99)
[2021-03-31 07:31] LABS: Glucose,Whole Blood 87 mg/dL (75-99)
[2021-03-31] MEDS: SYMBICORT 160-4.5 MCG INHALER INHALATION SCH ×2 (08:31→19:08)
[2021-03-31] MEDS: ALBUTEROL HFA INHALER INHALATION SCH ×4 (08:31→19:08)
--- NOTE | 2021-03-31 08:45 | P.PN ---
Subjective Patient is seen in follow-up for chronic kidney disease. Renal function fairly stable. Creatinine 1.4 yesterday. On Lasix drip. Accurate I's and O's not done. On 15 L high flow cannula. Denies chest pain or shortness of breath. Admits to good urine output. No active complaints. Hemodynamically stable. Vital signs are stable. General: The patient appeared well nourished and normally developed. HEENT: Head exam is unremarkable. LUNGS: Breath sounds decreased. HEART: Rate and Rhythm are regular. ABDOMEN: Soft, obese. EXTREMITITES: 2+ edema. Objective - Vital Signs Vital signs: Vital Signs Temp 97.3 F L 03/31/21 06:00 Pulse 78 03/31/21 08:07 Resp 22 03/31/21 08:07 BP 125/80 03/31/21 06:00 Pulse Ox 89 L 03/31/21 08:37 Intake & Output 03/30/21 03/31/21 03/31/21 18:59 06:59 18:59 Intake Total 704 169.666 Balance 704 169.666 Weight 92.2 kg Intake: Intake, IV Titration 169.666 Amount Furosemide 100 mg In 169.666 Sodium Chloride 0.9% 90 ml @ 10 MG/HR 10 mls/hr IV .Q10H [facility] Rx#: [id number] Oral 704 Other: Voiding Method Urinal Urinal - Labs CBC & Chem 7: 03/30/21 07:18 03/30/21 07:18 Labs: Abnormal Lab Results - Last 24 Hours (Table) 03/30/21 03/30/21 03/30/21 Range/Units 07:18 07:18 11:44 WBC 16.27 H (4.50-10.00) X 10*3/uL RBC 4.35 L (4.40-5.60) X 10*6/uL MCV 101.4 H (80.0-97.0) fL MCHC 31.5 L (32.0-37.0) g/dL RDW 14.7 H (11.5-14.5) % MPV 12.8 H (9.5-12.2) fL Immature Gran # 0.24 H (0.00-0.04) X 10*3/uL Neutrophils # 15.04 H (1.80-7.70) X 10*3/uL Lymphocytes # 0.23 L (0.90-5.00) X 10*3/uL Eosinophils # 0 L (0.04-0.35) X 10*3/uL D-Dimer (<0.60) mg/L FEU Chloride 95 L (96-109) mmol/L Carbon Dioxide 29.1 H (20.0-27.5) mmol/L BUN 67.4 H (9.0-27.0) mg/dL Est GFR (CKD-EPI)AfAm 58.8 L (60.0-200.0) Est GFR (CKD-EPI)NonAf 50.7 L (60.0-200.0) BUN/Creatinine Ratio 48.84 H (12.00-20.00) Ratio Glucose 136 H (70-110) mg/dL POC Glucose (mg/dL) 159 H (75-99) mg/dL Calcium 8.6 L (8.7-10.3) mg/dL Lactate Dehydrogenase 597 H (120-246) U/L C-Reactive Protein 0.90 H (0.00-0.80) mg/dL 03/30/21 03/30/21 03/31/21 Range/Units 16:41 20:11 06:36 WBC (4.50-10.00) X 10*3/uL RBC (4.40-5.60) X 10*6/uL MCV (80.0-97.0) fL MCHC (32.0-37.0) g/dL RDW (11.5-14.5) % MPV (9.5-12.2) fL Immature Gran # (0.00-0.04) X 10*3/uL Neutrophils # (1.80-7.70) X 10*3/uL Lymphocytes # (0.90-5.00) X 10*3/uL Eosinophils # (0.04-0.35) X 10*3/uL D-Dimer 0.95 H (<0.60) mg/L FEU Chloride (96-109) mmol/L Carbon Dioxide (20.0-27.5) mmol/L BUN (9.0-27.0) mg/dL Est GFR (CKD-EPI)AfAm (60.0-200.0) Est GFR (CKD-EPI)NonAf (60.0-200.0) BUN/Creatinine Ratio (12.00-20.00) Ratio Glucose (70-110) mg/dL POC Glucose (mg/dL) 148 H 175 H (75-99) mg/dL Calcium (8.7-10.3) mg/dL Lactate Dehydrogenase (120-246) U/L C-Reactive Protein (0.00-0.80) mg/dL 03/31/21 03/31/21 Range/Units 06:56 07:12 WBC (4.50-10.00) X 10*3/uL RBC (4.40-5.60) X 10*6/uL MCV (80.0-97.0) fL MCHC (32.0-37.0) g/dL RDW (11.5-14.5) % MPV (9.5-12.2) fL Immature Gran # (0.00-0.04) X 10*3/uL Neutrophils # (1.80-7.70) X 10*3/uL Lymphocytes # (0.90-5.00) X 10*3/uL Eosinophils # (0.04-0.35) X 10*3/uL D-Dimer (<0.60) mg/L FEU Chloride (96-109) mmol/L Carbon Dioxide (20.0-27.5) mmol/L BUN (9.0-27.0) mg/dL Est GFR (CKD-EPI)AfAm (60.0-200.0) Est GFR (CKD-EPI)NonAf (60.0-200.0) BUN/Creatinine Ratio (12.00-20.00) Ratio Glucose (70-110) mg/dL POC Glucose (mg/dL) 64 L 69 L (75-99) mg/dL Calcium (8.7-10.3) mg/dL Lactate Dehydrogenase (120-246) U/L C-Reactive Protein (0.00-0.80) mg/dL Assessment and Plan Plan: Assessment: 1. Chronic kidney disease stage III with baseline creatinine 1.2-1.3 secondary to diabetic kidney disease and cardiorenal syndrome. Creatinine 1.4 yesterday. UA benign. 2. Acute on chronic diastolic CHF. 3. Volume overload. 4. Hypokalemia from diuresis. Replaced. 5. COVID-19 pneumonia. Plan: Maintain Lasix drip. Accurate I's and O's. 1500 mL fluid restriction. Avoid nephrotoxins. Morning labs pending. Wean FiO2.
[2021-03-31] MEDS ORDERED: DOCUSATE 100 MG CAP PO PRN (09:48)
[2021-03-31] MEDS ORDERED: DOCUSATE 100 MG CAP PO STA (09:48)
[2021-03-31] MEDS: allopurinoL 100 MG TAB PO SCH (09:49)
[2021-03-31] MEDS: PANTOPRAZOLE 40 MG TABLET PO SCH (09:49)
[2021-03-31] MEDS: FLUCONAZOLE 100 MG TAB PO SCH (09:49)
[2021-03-31] MEDS: COLCHICINE 0.6 MG EACH PO SCH (09:49)
[2021-03-31] MEDS: NYSTATIN 100,000 UNIT/ML SUSP 500,000 UNIT/5 ML CUP PO SCH ×4 (09:49→21:15)
[2021-03-31] MEDS: ENOXAPARIN 40 MG/0.4 ML SYRINGE SQ SCH (09:49)
[2021-03-31] MEDS: ASPIRIN 81 MG PO SCH (09:50)
[2021-03-31] MEDS: TAMSULOSIN 0.4 MG CAP.ER.24H PO SCH (09:50)
[2021-03-31] MEDS: ZINC SULFATE 220 MG CAP PO SCH (09:50)
[2021-03-31] MEDS: FAMOTIDINE 20 MG TAB PO SCH (09:50)
[2021-03-31] MEDS: QUEtiapine 25 MG TAB PO SCH ×2 (09:50→21:15)
[2021-03-31] MEDS: METOPROLOL TARTRATE 50 MG TAB PO SCH (09:50)
[2021-03-31] MEDS: ASCORBIC ACID 500 MG TAB PO SCH ×2 (09:50→21:15)
[2021-03-31] MEDS: CHOLECALCIFEROL 125 MCG (5000 IU) TABLET PO SCH (09:51)
[2021-03-31] MEDS: ISOSORBIDE MONONITRATE ER 30 MG TAB.ER.24H PO SCH (09:51)
[2021-03-31 11:33] LABS: HCT 47.4 % (39.6-50.0); HGB 14.5 g/dL (13.0-17.0); MCH 31.6 pg (27.0-32.0); MCHC 30.6 g/dL (32.0-37.0); MCV 103.3 fL (80.0-97.0); Mean Platelet Volume 12.2 fL (9.5-12.2); Platelet Count 152 X 10*3/uL (140-440); RBC 4.59 X 10*6/uL (4.40-5.60); RDW 14.7 % (11.5-14.5)
[2021-03-31 11:45] LABS: Glucose,Whole Blood 210 mg/dL (75-99)
[2021-03-31 12:05] LABS: C Reactive Protein 9.4 mg/dL (0.00-0.80)
[2021-03-31 12:12] LABS: African American GFR (CKD) 63.8 (60.0-200.0); Albumin 3.4 g/dL (3.8-4.9); Albumin/Globulin Ratio 1.56 (1.60-3.17); Anion Gap 17.9 mmol/L (10.00-18.00); BUN/Creat Ratio 50.85 Ratio (12.00-20.00); Blood Urea Nitrogen 65.6 mg/dL (9.0-27.0); Calcium 8.6 mg/dL (8.7-10.3); Globulin 2.2 g/dL (1.6-3.3); Potassium 3.4 mmol/L (3.5-5.5); Total Bilirubin 0.5 mg/dL (0.30-1.20); Total Protein 5.5 g/dL (6.2-8.2)
[2021-03-31 12:15] LABS: Basophils # (A) 0.08 X 10*3/uL (0.00-0.10); Basophils % (A) 0.3 %; Eosinophils # (A) 0 X 10*3/uL (0.04-0.35); Eosinophils % (A) 0 %; Lymphocytes # (A) 0.19 X 10*3/uL (0.90-5.00); Lymphocytes % (A) 0.7 %; Monocytes # (A) 0.87 X 10*3/uL (0.20-1.00); Monocytes % (A) 3.4 %; Neutrophils % (A) 94.6 %
[2021-03-31] MEDS ORDERED: POTASSIUM CHLORIDE ER 20 MEQ TAB.ER PO STA (13:29)
--- NOTE | 2021-03-31 13:57 | P.PN ---
Subjective Progress Note Date: 03/30/21 Principal diagnosis: Acute on chronic hypoxic respiratory failure secondary to COVID-19 pneumonia Patient is a 71-year-old white male with a chronic medical problems a chronic hypoxic respiratory failure uses about 4 L of oxygen at home came in the with complaints of shortness of breath and cough restarted couple days ago was also having fever restarted couple days ago. Patient is found to have COVID-19 patient has multiple other medical problems chronically and patient does have history of COPD possible chronic diastolic dysfunction patient was on IV Lasix in the past. 03/30/2021 Patient seen and evaluated and discussed with nursing staff. No specific complaints Patient remains on Airvo at 25 L and FiO2 of 60%, breathing comfortably, he is improving, and he is being switched over to regular high flow nasal cannula at 15 L Exam reveals lower extremity edema has significantly increased, nephrology is following and starting him on Lasix infusion at 10 mg per hour. He remains on IV Solu-Medrol 60 mg every 6 hours, he remains on inhaled bronchodilators Baricitinib remains on hold. Today's labs have been reviewed, his white count is 16.27, his hemoglobin is 13.9, sodium is 142, potassium is 3.9, chloride is 95, BUN is 67, creatinine is 1.4. His inflammatory markers are improving and his LDH is down to 597, and CRP is 0.90. Pulmonary recommending to continue with BiPAP support at bedtime which will bene fit patient given history of COPD, obstructive sleep apnea Agreeable with IV Lasix infusion given marked fluid retention Objective - Vital Signs Vital signs: Vital Signs Temp 97.5 F L 03/30/21 10:00 Pulse 87 03/30/21 10:00 Resp 16 03/30/21 10:00 BP 139/75 03/30/21 10:00 Pulse Ox 92 L 03/30/21 12:19 Intake & Output 03/29/21 03/30/21 03/30/21 18:59 06:59 18:59 Intake Total 836 236 Output Total 350 Balance 836 -350 236 Intake: Oral 836 236 Output: Urine 350 - Exam GENERAL: The patient is alert and oriented x3, fatigues easy with activity even when talking HEENT: Pupils are round and equally reacting to light. EOMI. No scleral icterus. No conjunctival pallor. Normocephalic, atraumatic. No pharyngeal erythema. No thyromegaly. CARDIOVASCULAR: S1 and S2 present. No murmurs, rubs, or gallops. PULMONARY: Coarse scattered rhonchi throughout ABDOMEN: Soft, nontender, nondistended, normoactive bowel sounds. No palpable organomegaly. MUSCULOSKELETAL: No joint swelling or deformity. EXTREMITIES: No cyanosis, clubbing, +2 peripheral edema legs REBECCA wrapped. NEUROLOGICAL: Gross neurological examination did not reveal any focal deficits. - Labs CBC & Chem 7: 03/31/21 06:36 03/31/21 06:36 Labs: Abnormal Lab Results - Last 24 Hours (Table) 03/29/21 03/29/21 03/30/21 Range/Units 16:50 20:06 07:18 WBC 16.27 H (4.50-10.00) X 10*3/uL RBC 4.35 L (4.40-5.60) X 10*6/uL MCV 101.4 H (80.0-97.0) fL MCHC 31.5 L (32.0-37.0) g/dL RDW 14.7 H (11.5-14.5) % MPV 12.8 H (9.5-12.2) fL Immature Gran # 0.24 H (0.00-0.04) X 10*3/uL Neutrophils # 15.04 H (1.80-7.70) X 10*3/uL Lymphocytes # 0.23 L (0.90-5.00) X 10*3/uL Eosinophils # 0 L (0.04-0.35) X 10*3/uL POC Glucose (mg/dL) 222 H 249 H (75-99) mg/dL 03/30/21 03/30/21 Range/Units 07:23 11:44 WBC (4.50-10.00) X 10*3/uL RBC (4.40-5.60) X 10*6/uL MCV (80.0-97.0) fL MCHC (32.0-37.0) g/dL RDW (11.5-14.5) % MPV (9.5-12.2) fL Immature Gran # (0.00-0.04) X 10*3/uL Neutrophils # (1.80-7.70) X 10*3/uL Lymphocytes # (0.90-5.00) X 10*3/uL Eosinophils # (0.04-0.35) X 10*3/uL POC Glucose (mg/dL) 145 H 159 H (75-99) mg/dL Assessment and Plan Assessment: -Acute on chronic hypoxic respiratory failure secondary to COVID-19 pneumonia wears 4L of oxygen at home, on Airvo now - Covid 19 pneumonia. He on steroids and Barcitinib, Remdesivir -Leukocytosis secondary to above -Congestive heart failure chronic diastolic dysfunction with acute exacerbation at this time patient the BNP is only 206, most recent echo shows an EF of greater than 55%. on IV lasix -acute renal failure: Probably secondary to heart failure, on IV lasix -Acute COPD exacerbation -Mild transaminitis which is better at compared to his previous admission, chronic no further intervention at this time COVID-19 can cause transaminitis is Possible congestive heart failure chronic diastolic dysfunction with mild acute exacerbation -Elevated inflammatory markers of COVID-19 -Elevated DD secondary to COVID-19 infection, doppler negative for bilateral DVT -Chronic kidney disease stage III -Gastroesophageal reflux disease -Coronary artery disease -Type 2 diabetes mellitus insulin-dependent, exacerbated by steroids -Diabetic peripheral neuropathy -Obstructive sleep apnea -Chronic hypoxic respiratory failure Secondary to COPD and the sleep apnea -Hypertension -Hyperlipidemia -Benign prostatic hypertrophy -Chronic low back pain -History of DVT in the past for which patient is on not on any anti-coagulation presently DVT prophylaxis: Lovenox GI Prophylaxis: Protonix Plan Continue Solu-medrol, zinc, vitamins, lovenox, Baricitinib on hold due to low ALC Continue bronchodilators Continue to diuresis with torsemide. Adjust insulin Continue all other supportive care Repeat labs tomorrow Prognosis is guarded for this patient.
--- NOTE | 2021-03-31 15:55 | P.PN ---
Subjective Progress Note Date: 03/31/21 Principal diagnosis: CoVID pneumonia This 71-year-old white male patient who follows with Dr. Torres in the pulmonary clinic for his history of advanced COPD on home oxygen patient usually wears 4 L on a regular basis, he is prednisone dependent and usually takes 20 mg on a regular basis, coronary artery disease, diabetes mellitus type 2, previous history of CVA, hypertension, hyperlipidemia, previous history of pneumonia, chronic kidney disease unspecified, sleep apnea, BPH, osteoarthritis. Patient presented to the emergency department on 03/12/2021 for evaluation of worsening dyspnea. Patient had a fever at home up to 101.7F. He saw Dr. Torres on Friday03/09/2021 and his antibiotics were changed. Patient was also given a prednisone taper and was placed on Levaquin. Has chronic swelling in his lower extremities which is unchanged. Of note patient was tested for COVID-19 on 03/02/2021 and was found to be negative. During this visit to the ED he tested positive on 03/12/2021. Patient has been vaccinated against COVID-19. His chest x-ray shows increasing diffuse interstitial opacity, with the possibility of fluid overload/CHF, interstitial pneumonitis, atypical pneumonia or chronic pneumonia. His blood work on admission has been reviewed showing white blood cell count of 12.7, hemoglobin of 12.3, his INR 0.9, sodium is 136, potassium is 4.2, chloride is 97, CO2 31, BUN is 55, creatinine is 1.28, troponin is less than 0.012, proBNP is within normal limits at 206. Patient has been started on Decadron 6 blood gram daily which we will increase to twice daily, he was placed on albuterol and Symbicort, he is on subcutaneous heparin 5000 units every 12 hours, and the patient is within the window for Remdesivir which she will be started on today. On 03/14/2021 patient seen in follow-up on medical surgical floor, he is breathing comfortably, she is resting in bed, no worsening dyspnea, he is currently on 12 L of oxygen his pulse ox is 92%, does have mildly congested cough, no chest discomfort, blood pressure is stable, his been afebrile. Lower extremity Dopplers showed no evidence of DVT. Today's labs have been reviewed, his white count is 16.9, hemoglobin is 12.8, sodium is 146, the rest of electrolytes are within normal limits, BUN is 40, creatinine is 1.2. LDH was 526, not significantly elevated, CRP was 13.6, follow-up in addition he remains on prophylactic dose Lovenox, he is on Decadron 6 mg twice daily. On 03/15/2021 patient seen in follow-up on medical surgical floor. He is awake and alert, he is currently on 10 L of oxygen, down from 12 L on yesterday's exam, he states his breathing is improving, his coughing less, his been afebrile, hemodynamically stable, no chest discomfort. His been ambulating about the room, tolerates activity well. Today's chest x-ray showing mild cardiomegaly, and stable diffuse interstitial changes and patchy peripheral infiltrates. Today's labs have been reviewed, his white blood cell count is 21.2, hemoglobin is 13.3, his d-dimer is improved and is down to 1.23, sodium is 146, the rest of the electrolytes are within normal limits, BUN is 44, creatinine is 1.3. His LDH is 625, slightly increased from most previous value of 526, CRP is improved and is down to 4.7 on today's labs, pro-calcitonin level is negative 2 at 0.16, and 0.19. Blood cultures have shown no growth. He currently continues on Decadron 6 mg twice daily, he is on Lovenox 40 mg once daily, he is on IV Lasix 40 mg every 12 hours, and we started him on the Remdesivir yesterday and today is day 3 of treatment. On 03/16/2021 patient seen in follow-up on medical surgical floor, he is awake and alert, in no acute distress, he states his breathing is about the same, not any worse, however his oxygen demand has increased to 15 L, his pulse ox is 88- 90%, his been afebrile, blood pressures been stable, denies any chest discomfort, no hemoptysis, lung sounds reveal scattered crackles mostly at bilateral bases, his chest x-ray from yesterday showed mild cardiomegaly, diffuse interstitial changes. Patient has been on IV Lasix 40 mg twice daily unfortunately has not fluid balance is very difficult to estimate, his lower extremity edema appears to be slightly better. He continues on Remdesivir, and today is day 4 of treatment. Today's labs have been reviewed, his white count is improving and is down to 16.5, hemoglobin is 12.4, his d-dimer was improving on yesterday's labs, and was down to 1.23, patient remains on prophylactic dose Lovenox 40 mg daily, BUN is 47, creatinine is 1.3, potassium is 3.8, sodium is 141, pro-calcitonin level was negative 2. Blood cultures were negative 2. Patient seen today 03/17/2021 in follow-up on the regular medical floor. He is currently sitting up the bedside. Awake and alert in no acute distress. He denies any worsening shortness of breath, cough or can just in. He is having some confusion at nighttime and pulling at his oxygen. He is currently on 15 L high flow nasal cannula with O2 saturations in the low 90s. Not requiring a nonrebreather mask at this point. Sodium 139. Potassium 4.3. Creatinine 1.20. Glucose 200. He is continued on bronchodilators, Lovenox, Decadron, vitamin supplements. Day #5 of Remdesivir. The patient is seen today 03/21/2021 in follow-up on the regular medical floor. He sitting up in a chair at the bedside. Awake and alert in no acute distress. Breathing a bit easier today. States no worse. He is still on AirVo at 55 L and 85% FiO2 with O2 saturations 87-92%. He is continued on Baricitinib, bronchodilators, Lovenox, IV Solu-Medrol and vitamin supplement. White count 16.4. Hemoglobin 13.9. Platelet count 145,000. Sodium 141 potassium 3.4. Creatinine 1.4. Blood glucose 201. AST 35. ALT 68. The patient seen today 03/22/2021 in follow-up on the regular medical floor. He is currently sitting up in a chair at the bedside. Awake and alert in mild respiratory distress. He is currently on AirVo high flow oxygen at 60 L and 85% FiO2 and occasionally 100% nonrebreather mask. He is continued on Baricitinib, Lovenox, IV Solu-Medrol, vitamin supplements. Remains on Symbicort, albuterol. Remains on IV diuretics. White count 18.6. Hemoglobin 13.7. Platelets 133. Sodium 143. Potassium 3.6. Creatinine 1.4. Glucose 120. AST 42. ALT 74. LDH 597. C-reactive protein less than 0.3. The patient is seen today 03/23/2021 in follow-up on the regular medical floor. He is awake and alert in no acute distress. Sitting up in a chair at the bedside. Feeling a bit better today compared to yesterday. Still with a loose nonproductive cough. No fever or chills. He is still requiring AirVo high flow oxygen at 55 L and 85% FiO2. White count 26.0. Hemoglobin 14.4. Lymphocytes 0. Absolute lymphocytes are 0.1. Sodium 139. Potassium 3.2. Creatinine 1.22. Glucose 209. AST 52. ALT 73. He is continued on Lovenox, IV Solu-Medrol, vitamin supplements. Remains on Symbicort, albuterol. Remains on IV diuretics. The Baricitinib will be placed on hold for now due to the low ALC. The patient is seen today on 03/24/2021 in follow-up on the regular medical floor. Currently sitting up in a chair at the bedside. Awake and alert in no acute distress. He's been slow to progress. He is feeling a bit stronger today. Less short of breath. He is still requiring AirVo high flow oxygen at 55 L and 80% FiO2. He has not been requiring the nonrebreather mask in the past 24 hours. His appetite is good. He is continued on IV Solu-Medrol, Lovenox, vitamin supplements. Continued on Symbicort and albuterol. Baricitinib on hold due to low ALC. White count 22.1. Hemoglobin 14.0. Lymphocytes 0.1. Sodium 138. Potassium 3.3. Creatinine 1.23. AST 49. ALT 73. Glucose 94. The patient is seen today 03/25/2021 in follow-up on the regular medical floor. He is awake and alert in no acute distress. Sitting up in a chair at the bedside. He has been slow to progress. He is still on AirVo high flow oxygen and 50 L and 80% FiO2. He has developed thrush in his mouth. Diflucan will be added. His Baricitinib remains on hold due to low lymphocyte count. He remains on Lovenox, IV Solu-Medrol, vitamin supplements. He is continued on IV diuretics. Continue bronchodilators. White count 19.8. Hemoglobin 14.2. Lymphocytes 0.2. Sodium 138. Potassium 3.6. Creatinine 1.13. Glucose 181. AST 56. ALT 84. The patient is seen today 03/31/2021 in follow-up on the regular medical floor. He is currently sitting up in a chair at the bedside. Awake and alert in no acute distress. He is maintaining O2 saturations in the 90s on 15 L high flow nasal cannula. Occasional partial nonrebreather mask. He is currently on a Lasix drip at 10 mg per hour. He continues with lower extremity edema. Chest x-ray continues to show cardiomegaly with chronic parenchymal changes with bilateral multifocal opacities redemonstrated. No significant change from previous. White count 25.6. Hemoglobin 14.5. Platelets 152. D-dimer 0.95. Sodium 145. Potassium 3.4. Creatinine 1.3. AST 42. ALT 126. LDH 639. C- reactive protein 9.4. He is continued on Lovenox, IV Solu-Medrol, vitamin supplements. Remains on Symbicort and albuterol. Objective - Vital Signs Vital signs: Vital Signs Temp 97.5 F L 03/31/21 13:41 Pulse 73 03/31/21 13:41 Resp 20 03/31/21 13:41 BP 116/71 03/31/21 13:41 Pulse Ox 90 L 03/31/21 15:19 Intake & Output 03/30/21 03/31/21 03/31/21 18:59 06:59 18:59 Intake Total 704 169.666 Output Total 350 Balance 704 169.666 -350 Weight 92.2 kg Intake: Intake, IV Titration 169.666 Amount Furosemide 100 mg In 169.666 Sodium Chloride 0.9% 90 ml @ 10 MG/HR 10 mls/hr IV .Q10H [facility] Rx#: [id number] Oral 704 Output: Urine 350 Other: Voiding Method Urinal Urinal # Bowel Movements 1 - Exam GENERAL EXAM: Alert, pleasant, 71-year-old male patient, up in a chair at the bedside on 15 L high flow nasal cannula, fairly comfortable in no apparent distress. HEAD: Normocephalic/atraumatic. EYES: Normal reaction of pupils, equal size. Conjunctiva pink, sclera white. NOSE: Clear with pink turbinates. THROAT: No erythema or exudates. NECK: No masses, no JVD, no thyroid enlargement, no adenopathy. CHEST: No chest wall deformity. Symmetrical expansion. LUNGS: Equal air entry with diffuse crackles, and a few rhonchi CVS: Regular rate and rhythm, normal S1 and S2, no gallops, no murmurs, no rubs ABDOMEN: Soft, nontender. No hepatosplenomegaly, normal bowel sounds, no guarding or rigidity. EXTREMITIES: No clubbing, plus lower extremity edema with chronic venous stasis, no cyanosis, 2+ pulses and upper and lower extremities. MUSCULOSKELETAL: Muscle strength and tone normal. SPINE: No scoliosis or deformity SKIN: No rashes CENTRAL NERVOUS SYSTEM: No focal deficits, tone is normal in all 4 extremities. PSYCHIATRIC: Alert and oriented -3. Appropriate affect. Intact judgment and insight. - Labs CBC & Chem 7: 03/31/21 06:36 03/31/21 06:36 Labs: Abnormal Lab Results - Last 24 Hours (Table) 03/30/21 03/30/21 03/31/21 Range/Units 16:41 20:11 06:36 WBC (4.50-10.00) X 10*3/uL MCV (80.0-97.0) fL MCHC (32.0-37.0) g/dL RDW (11.5-14.5) % Immature Gran # (0.00-0.04) X 10*3/uL Neutrophils # (1.80-7.70) X 10*3/uL Lymphocytes # (0.90-5.00) X 10*3/uL Eosinophils # (0.04-0.35) X 10*3/uL D-Dimer (<0.60) mg/L FEU Potassium 3.4 L (3.5-5.5) mmol/L Chloride 94 L (96-109) mmol/L Carbon Dioxide 33.0 H (20.0-27.5) mmol/L BUN 65.6 H (9.0-27.0) mg/dL Est GFR (CKD-EPI)NonAf 55.0 L (60.0-200.0) BUN/Creatinine Ratio 50.85 H (12.00-20.00) Ratio Glucose 55 L (70-110) mg/dL POC Glucose (mg/dL) 148 H 175 H (75-99) mg/dL Calcium 8.6 L (8.7-10.3) mg/dL AST 42 H (14-35) U/L ALT 126 H (10-49) U/L Alkaline Phosphatase 167 H (41-126) U/L Lactate Dehydrogenase 639 H (120-246) U/L C-Reactive Protein 9.40 H (0.00-0.80) mg/dL Total Protein 5.5 L (6.2-8.2) g/dL Albumin 3.4 L (3.8-4.9) g/dL Albumin/Globulin Ratio 1.56 L (1.60-3.17) g/dL 03/31/21 03/31/21 03/31/21 Range/Units 06:36 06:36 06:56 WBC 25.60 H (4.50-10.00) X 10*3/uL MCV 103.3 H (80.0-97.0) fL MCHC 30.6 L (32.0-37.0) g/dL RDW 14.7 H (11.5-14.5) % Immature Gran # 0.26 H (0.00-0.04) X 10*3/uL Neutrophils # 24.20 H (1.80-7.70) X 10*3/uL Lymphocytes # 0.19 L (0.90-5.00) X 10*3/uL Eosinophils # 0 L (0.04-0.35) X 10*3/uL D-Dimer 0.95 H (<0.60) mg/L FEU Potassium (3.5-5.5) mmol/L Chloride (96-109) mmol/L Carbon Dioxide (20.0-27.5) mmol/L BUN (9.0-27.0) mg/dL Est GFR (CKD-EPI)NonAf (60.0-200.0) BUN/Creatinine Ratio (12.00-20.00) Ratio Glucose (70-110) mg/dL POC Glucose (mg/dL) 64 L (75-99) mg/dL Calcium (8.7-10.3) mg/dL AST (14-35) U/L ALT (10-49) U/L Alkaline Phosphatase (41-126) U/L Lactate Dehydrogenase (120-246) U/L C-Reactive Protein (0.00-0.80) mg/dL Total Protein (6.2-8.2) g/dL Albumin (3.8-4.9) g/dL Albumin/Globulin Ratio (1.60-3.17) g/dL 03/31/21 03/31/21 Range/Units 07:12 11:42 WBC (4.50-10.00) X 10*3/uL MCV (80.0-97.0) fL MCHC (32.0-37.0) g/dL RDW (11.5-14.5) % Immature Gran # (0.00-0.04) X 10*3/uL Neutrophils # (1.80-7.70) X 10*3/uL Lymphocytes # (0.90-5.00) X 10*3/uL Eosinophils # (0.04-0.35) X 10*3/uL D-Dimer (<0.60) mg/L FEU Potassium (3.5-5.5) mmol/L Chloride (96-109) mmol/L Carbon Dioxide (20.0-27.5) mmol/L BUN (9.0-27.0) mg/dL Est GFR (CKD-EPI)NonAf (60.0-200.0) BUN/Creatinine Ratio (12.00-20.00) Ratio Glucose (70-110) mg/dL POC Glucose (mg/dL) 69 L 210 H (75-99) mg/dL Calcium (8.7-10.3) mg/dL AST (14-35) U/L ALT (10-49) U/L Alkaline Phosphatase (41-126) U/L Lactate Dehydrogenase (120-246) U/L C-Reactive Protein (0.00-0.80) mg/dL Total Protein (6.2-8.2) g/dL Albumin (3.8-4.9) g/dL Albumin/Globulin Ratio (1.60-3.17) g/dL Assessment and Plan Assessment: 1 Acute on chronic hypoxic respiratory failure related to acute COVID-19 related pneumonia, patient tested positive on 03/12/2021. Patient is vaccinated against COVID-19. Completed Remdesivir. On 03/18/2021 the patient's oxygenation worsened and he was placed on AirVo high flow oxygen and initiated on Baricitinib. Currently on 15 L high flow nasal cannula On 03/23/2021 the patient's ALC was 0.1 and the Baricitinib is placed on hold for now. 2 Acute exacerbation of COPD 3 Chronic COPD, advanced, with a baseline FEV1 of 1.71 L or FEV1 of 58% usually on home oxygen at 4 L 4 Recent 2 hospitalizations for acute exacerbation of COPD in early February, during which patient tested negative for COVID-19, urinalysis was also negative, influenza A and B were negative 5 Diabetes mellitus type 2 6 Hypertension, 7 Hyperlipidemia 8 History of coronary artery disease with previous stenting 9 History of CHF, unspecified 10 History of CVA/TIA 11 Osteoarthritis 12 Chronic knee disease, unspecified 13 Chronic venous insufficiency 14 Chronic back pain 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 Lungs sounds crackles in the bilateral bases. Scattered rhonchi. Maintaining O2 saturations in the 90s on 15 L high flow nasal cannula. I discussed the assessment and plan of care with my nurse practitioner, Judi Crawford. I attest to the above note as dictated by her.
[2021-03-31 16:30] LABS: Glucose,Whole Blood 264 mg/dL (75-99)
[2021-03-31 20:40] LABS: Glucose,Whole Blood 397 mg/dL (75-99)
[2021-03-31] MEDS: INSULIN DETEMIR (LEVEMIR) 100 UNIT/ML SYR SQ SCH (21:15)
[2021-03-31] MEDS: METOPROLOL TARTRATE 25 MG TAB PO SCH (21:15)
[2021-03-31] MEDS: PRAMIPEXOLE 1 MG TAB PO SCH (22:12)
[2021-04-01 06:52] LABS: Glucose,Whole Blood 211 mg/dL (75-99)
[2021-04-01] MEDS: methylPREDNISolone SOD SUCCI 40 MG/ML 1 ML VIAL IV SCH ×3 (08:53→23:22)
[2021-04-01] MEDS: ENOXAPARIN 40 MG/0.4 ML SYRINGE SQ SCH (08:54)
[2021-04-01] MEDS: NYSTATIN 100,000 UNIT/ML SUSP 500,000 UNIT/5 ML CUP PO SCH ×4 (08:54→22:45)
[2021-04-01] MEDS: COLCHICINE 0.6 MG EACH PO SCH (08:54)
[2021-04-01] MEDS: INSULIN ASPART (NovoLOG) 100 UNIT/ML VIAL SQ SCH ×8 (08:54→22:44)
[2021-04-01] MEDS: ZINC SULFATE 220 MG CAP PO SCH (08:54)
[2021-04-01] MEDS: allopurinoL 100 MG TAB PO SCH (08:54)
[2021-04-01] MEDS: PANTOPRAZOLE 40 MG TABLET PO SCH (08:55)
[2021-04-01] MEDS: ASCORBIC ACID 500 MG TAB PO SCH (08:55)
[2021-04-01] MEDS: FLUCONAZOLE 100 MG TAB PO SCH (08:55)
[2021-04-01] MEDS: FAMOTIDINE 20 MG TAB PO SCH (08:55)
[2021-04-01] MEDS: TAMSULOSIN 0.4 MG CAP.ER.24H PO SCH (08:55)
[2021-04-01] MEDS: QUEtiapine 25 MG TAB PO SCH ×2 (08:55→22:45)
[2021-04-01] MEDS: ISOSORBIDE MONONITRATE ER 30 MG TAB.ER.24H PO SCH (08:55)
[2021-04-01] MEDS: METOPROLOL TARTRATE 50 MG TAB PO SCH (08:55)
[2021-04-01] MEDS: ASPIRIN 81 MG PO SCH (08:55)
[2021-04-01] MEDS: CHOLECALCIFEROL 125 MCG (5000 IU) TABLET PO SCH (08:56)
[2021-04-01] MEDS: SYMBICORT 160-4.5 MCG INHALER INHALATION SCH ×2 (08:57→19:44)
[2021-04-01] MEDS: ALBUTEROL HFA INHALER INHALATION SCH ×4 (08:57→19:44)
[2021-04-01] MEDS ORDERED: MORPHINE SULFATE 2 MG/ML SYRINGE IVP STA (09:14)
[2021-04-01] MEDS: FUROSEMIDE 100 MG in SODIUM CHLORIDE 0.9% 90 ML IV SCH ×2 (09:45→22:46)
--- NOTE | 2021-04-01 10:06 | P.PN ---
Subjective Patient is seen in follow-up for chronic kidney disease. Renal function fairly stable. Creatinine 1.3 yesterday. On Lasix drip. Accurate I's and O's not done. On 15 L high flow cannula. Denies chest pain or shortness of breath. Admits to good urine output. No active complaints. Hemodynamically stable. Vital signs are stable. General: The patient appeared well nourished and normally developed. HEENT: Head exam is unremarkable. LUNGS: Breath sounds decreased. HEART: Rate and Rhythm are regular. ABDOMEN: Soft, obese. EXTREMITITES: 2+ edema. Objective - Vital Signs Vital signs: Vital Signs Temp 98.3 F 04/01/21 08:39 Pulse 106 H 04/01/21 08:39 Resp 20 04/01/21 08:39 BP 123/73 04/01/21 08:39 Pulse Ox 90 L 04/01/21 08:39 Intake & Output 03/31/21 04/01/21 04/01/21 18:59 06:59 18:59 Intake Total 100 74.167 98.167 Output Total 350 1460 Balance -250 -1385.833 98.167 Intake: Intake, IV Titration 100 74.167 98.167 Amount Furosemide 100 mg In 100 74.167 98.167 Sodium Chloride 0.9% 90 ml @ 10 MG/HR 10 mls/hr IV .Q10H [facility] Rx#: [id number] Output: Urine 350 1460 Other: Voiding Method Urinal Urinal Urinal # Voids 3 # Bowel Movements 1 0 0 - Labs CBC & Chem 7: 03/31/21 06:36 03/31/21 06:36 Labs: Abnormal Lab Results - Last 24 Hours (Table) 03/31/21 03/31/21 03/31/21 Range/Units 06:36 06:36 11:42 WBC 25.60 H (4.50-10.00) X 10*3/uL MCV 103.3 H (80.0-97.0) fL MCHC 30.6 L (32.0-37.0) g/dL RDW 14.7 H (11.5-14.5) % Immature Gran # 0.26 H (0.00-0.04) X 10*3/uL Neutrophils # 24.20 H (1.80-7.70) X 10*3/uL Lymphocytes # 0.19 L (0.90-5.00) X 10*3/uL Eosinophils # 0 L (0.04-0.35) X 10*3/uL Potassium 3.4 L (3.5-5.5) mmol/L Chloride 94 L (96-109) mmol/L Carbon Dioxide 33.0 H (20.0-27.5) mmol/L BUN 65.6 H (9.0-27.0) mg/dL Est GFR (CKD-EPI)NonAf 55.0 L (60.0-200.0) BUN/Creatinine Ratio 50.85 H (12.00-20.00) Ratio Glucose 55 L (70-110) mg/dL POC Glucose (mg/dL) 210 H (75-99) mg/dL Calcium 8.6 L (8.7-10.3) mg/dL AST 42 H (14-35) U/L ALT 126 H (10-49) U/L Alkaline Phosphatase 167 H (41-126) U/L Lactate Dehydrogenase 639 H (120-246) U/L C-Reactive Protein 9.40 H (0.00-0.80) mg/dL Total Protein 5.5 L (6.2-8.2) g/dL Albumin 3.4 L (3.8-4.9) g/dL Albumin/Globulin Ratio 1.56 L (1.60-3.17) g/dL 03/31/21 03/31/21 04/01/21 Range/Units 16:26 20:38 06:51 WBC (4.50-10.00) X 10*3/uL MCV (80.0-97.0) fL MCHC (32.0-37.0) g/dL RDW (11.5-14.5) % Immature Gran # (0.00-0.04) X 10*3/uL Neutrophils # (1.80-7.70) X 10*3/uL Lymphocytes # (0.90-5.00) X 10*3/uL Eosinophils # (0.04-0.35) X 10*3/uL Potassium (3.5-5.5) mmol/L Chloride (96-109) mmol/L Carbon Dioxide (20.0-27.5) mmol/L BUN (9.0-27.0) mg/dL Est GFR (CKD-EPI)NonAf (60.0-200.0) BUN/Creatinine Ratio (12.00-20.00) Ratio Glucose (70-110) mg/dL POC Glucose (mg/dL) 264 H 397 H 211 H (75-99) mg/dL Calcium (8.7-10.3) mg/dL AST (14-35) U/L ALT (10-49) U/L Alkaline Phosphatase (41-126) U/L Lactate Dehydrogenase (120-246) U/L C-Reactive Protein (0.00-0.80) mg/dL Total Protein (6.2-8.2) g/dL Albumin (3.8-4.9) g/dL Albumin/Globulin Ratio (1.60-3.17) g/dL Assessment and Plan Plan: Assessment: 1. Chronic kidney disease stage III with baseline creatinine 1.2-1.3 secondary to diabetic kidney disease and cardiorenal syndrome. Creatinine 1.3 yesterday. UA benign. 2. Acute on chronic diastolic CHF. 3. Volume overload. 4. Hypokalemia from diuresis. Replaced. 5. COVID-19 pneumonia. Plan: Maintain Lasix drip. 1500 mL fluid restriction. Avoid nephrotoxins. Morning labs pending. Wean FiO2.
[2021-04-01 11:27] LABS: African American GFR (CKD) 68.2 (60.0-200.0); Anion Gap 18.1 mmol/L (10.00-18.00); BUN/Creat Ratio 47.46 Ratio (12.00-20.00); Blood Urea Nitrogen 57.9 mg/dL (9.0-27.0); Calcium 8.6 mg/dL (8.7-10.3); Non-African American GFR(CKD) 58.9 (60.0-200.0); Potassium 3.7 mmol/L (3.5-5.5)
[2021-04-01 11:29] LABS: Glucose,Whole Blood 127 mg/dL (75-99)
[2021-04-01] MEDS: LIDOCAINE 5% PATCH TOPICAL SCH (13:08)
--- NOTE | 2021-04-01 14:59 | P.PN ---
Subjective Progress Note Date: 04/01/21 Principal diagnosis: Dyspnea This 71-year-old white male patient who follows with Dr. Torres in the pulmonary clinic for his history of advanced COPD on home oxygen patient usually wears 4 L on a regular basis, he is prednisone dependent and usually takes 20 mg on a regular basis, coronary artery disease, diabetes mellitus type 2, previous history of CVA, hypertension, hyperlipidemia, previous history of pneumonia, chronic kidney disease unspecified, sleep apnea, BPH, osteoarthritis. Patient presented to the emergency department on 03/12/2021 for evaluation of worsening dyspnea. Patient had a fever at home up to 101.7F. He saw Dr. Torres on Friday03/09/2021 and his antibiotics were changed. Patient was also given a prednisone taper and was placed on Levaquin. Has chronic swelling in his lower extremities which is unchanged. Of note patient was tested for COVID-19 on 03/02/2021 and was found to be negative. During this visit to the ED he tested positive on 03/12/2021. Patient has been vaccinated against COVID-19. His chest x-ray shows increasing diffuse interstitial opacity, with the possibility of fluid overload/CHF, interstitial pneumonitis, atypical pneumonia or chronic pneumonia. His blood work on admission has been reviewed showing white blood cell count of 12.7, hemoglobin of 12.3, his INR 0.9, sodium is 136, potassium is 4.2, chloride is 97, CO2 31, BUN is 55, creatinine is 1.28, troponin is less than 0.012, proBNP is within normal limits at 206. Patient has been started on Decadron 6 blood gram daily which we will increase to twice daily, he was placed on albuterol and Symbicort, he is on subcutaneous heparin 5000 units every 12 h ours, and the patient is within the window for Remdesivir which she will be started on today. On 03/14/2021 patient seen in follow-up on medical surgical floor, he is breathing comfortably, she is resting in bed, no worsening dyspnea, he is currently on 12 L of oxygen his pulse ox is 92%, does have mildly congested cough, no chest discomfort, blood pressure is stable, his been afebrile. Lower extremity Dopplers showed no evidence of DVT. Today's labs have been reviewed, his white count is 16.9, hemoglobin is 12.8, sodium is 146, the rest of electrolytes are within normal limits, BUN is 40, creatinine is 1.2. LDH was 526, not significantly elevated, CRP was 13.6, follow-up in addition he remains on prophylactic dose Lovenox, he is on Decadron 6 mg twice daily. On 03/15/2021 patient seen in follow-up on medical surgical floor. He is awake and alert, he is currently on 10 L of oxygen, down from 12 L on yesterday's exam, he states his breathing is improving, his coughing less, his been afebrile, hemodynamically stable, no chest discomfort. His been ambulating about the room, tolerates activity well. Today's chest x-ray showing mild cardiomegaly, and stable diffuse interstitial changes and patchy peripheral infiltrates. Today's labs have been reviewed, his white blood cell count is 21.2, hemoglobin is 13.3, his d-dimer is improved and is down to 1.23, sodium is 146, the rest of the electrolytes are within normal limits, BUN is 44, creatinine is 1.3. His LDH is 625, slightly increased from most previous value of 526, CRP is improved and is down to 4.7 on today's labs, pro-calcitonin level is negative 2 at 0.16, and 0.19. Blood cultures have shown no growth. He cur rently continues on Decadron 6 mg twice daily, he is on Lovenox 40 mg once daily, he is on IV Lasix 40 mg every 12 hours, and we started him on the Remdesivir yesterday and today is day 3 of treatment. On 03/16/2021 patient seen in follow-up on medical surgical floor, he is awake and alert, in no acute distress, he states his breathing is about the same, not any worse, however his oxygen demand has increased to 15 L, his pulse ox is 88- 90%, his been afebrile, blood pressures been stable, denies any chest discomfort, no hemoptysis, lung sounds reveal scattered crackles mostly at bilateral bases, his chest x-ray from yesterday showed mild cardiomegaly, diffuse interstitial changes. Patient has been on IV Lasix 40 mg twice daily unfortunately has not fluid balance is very difficult to estimate, his lower extremity edema appears to be slightly better. He continues on Remdesivir, and today is day 4 of treatment. Today's labs have been reviewed, his white count is improving and is down to 16.5, hemoglobin is 12.4, his d-dimer was improving on yesterday's labs, and was down to 1.23, patient remains on prophylactic dose Lovenox 40 mg daily, BUN is 47, creatinine is 1.3, potassium is 3.8, sodium is 141, pro-calcitonin level was negative 2. Blood cultures were negative 2. On 03/18/2021 patient seen in follow-up on medical surgical floor. Patient was noted to be desaturating on high flow nasal cannula and nonrebreather mask due to the low 80s, and he was initially placed on Airvo at 60 L and FiO2 of 90% in addition to a nonrebreather mask and his pulse ox is only 90%. Clinically he states he feels like his breathing is getting better, he looks comfortable, does not appear to be in any acute distress, not using accessory muscles of breathing, he finished his course of Remdesivir, he currently remains on Decadron 6 mg twice daily, Lovenox 20 mg once daily, she denies any chest discomfort, denies any hemoptysis. Today's labs have been reviewed, his white blood cell count is relatively stable at 16.3, hemoglobin is 13.2, his d-dimer is 1.01, sodium is 145, potassium is 4.5, chloride is 101, BUN is 54 creatinine is 1.5., His LDH is stable at 643, and CRP is improved and is down to 1.7, his pro-calcitonin level was negative on 05/16/2020 at 0.19. Blood cultures show no growth. On 03/19/2021 patient seen in follow-up on medical surgical floor, today he is on Airvo at 55 L and FiO2 of 88% in addition to nonrebreather mask, and his pulse ox is 90-91%, and as such his oxygenation requirement has increased He denies worsening dyspnea, he states he is breathing fairly comfortably, minimal wheezing on today's exam, yesterday we switched his IV steroids to IV Solu- Medrol 60 mg every 6 hours, less wheezing, less coughing, no crackles noted. His last chest x-ray from yesterday on 03/18/2021 showed stable cardio megaly, stable diffuse interstitial changes and patchy mid to lower lung peripheral infiltrates likely related to COVID-19 pneumonia. Currently patient is on Baricitinib, IV Solu-Medrol 60 mg every 6 hours, he is on IV Lasix 40 mg every 8 hours, Lovenox 40 mg once daily, he is on home dose colchicine 0.6 mg daily. Vital signs have been stable, his been afebrile. Mild edema in bilateral lower extremities. Today's labs have been reviewed, white blood cell count is improving and is down to 12.5, hemoglobin is 13.4, his neutrophil count is 11.1, leukocyte count of 0.7, electrolytes are unremarkable, B1 is 58 creatinine is 1.4, renal profile slightly improved from yesterday, nephrology is following, his inflammatory markers slightly improved and LDH is down to 612, and CRP is 1.3. On 03/20/2021 patient seen in follow-up on medical surgical floor. He is awake and alert, in no acute distress although still requiring high flow oxygen. He is sitting up in the recliner, currently on Airvo at 55 L and FiO2 of 88% in addition to 100% nonrebreather mask. His lung sounds are improved, he is less wheezy, no rhonchi, less congested, and he feels like his breathing is improving. Occasional cough, no significant phlegm production. Patient's nonrebreather mask was removed, and patient is maintaining O2 saturations at 95% on just Airvo at 55 L and FiO2 of 85%. Afebrile. Currently patient is on Baricitinib, IV Solu-Medrol 60 mg every 6 hours, he is on IV Lasix 40 mg every 12 hours, Lovenox 40 mg once daily, he is on home dose colchicine 0.6 mg daily. Vital signs have been stable, his been afebrile. Mild edema in bilateral lower extremities. No new chest x-ray today. Patient continues to diurese, he is in -880 mL net fluid balance over the last 24 hours, lower extremity edema is improving, breathing is improving. Today's labs have been reviewed, sodium is 138, potassium is 3.8, chloride is 97, CO2 is 34, B1 is 66 creatinine 1.3. On 03/26/2021 patient seen in follow-up on medical surgical floor. He is resting comfortably in the recliner, he remains on Airvo by 1574%, he is not requiring nonrebreather mask, breathing comfortably, he responds appropriately, does not appear to be in any acute distress, no complaint of chest pain, lung sounds are positive for diffuse rhonchi, still has mild chest congestion. Currently remains on Symbicort, Ventolin, he is on IV steroids 60 mg every 6 hours of Solu-Medrol, Baricitinib remains on hold related to low ALC which is at 0.2. Today's labs have been reviewed, his white blood cell count is improving and is down to 15, hemoglobin is 14.3, sodium is 140, potassium 3.7, chloride is 96, CO2 is 40, B1 is 56 creatinine is 1.14. His Lovenox is a 40 mg daily, she remains on IV diuretics with Lasix 40 mg every 12 hours. No worsening swelling in bilateral lower extremities, overall lower extremity edema has significantly improved, no net fluid balance is available for this shift. Overall his weight is down by 1.9 kg over last 24-48 hours. on 03/27/2021 patient seen in follow-up on medical surgical floor. Remains on Airvo down to 45 L and FiO2 of 73%, his pulse ox is 92-93%, he does desaturate and has exertional dyspnea. Afebrile. no complaints of chest discomfort, overall seems to be improving. today's labs have been reviewed. White count is improved and is down to 14, hemoglobin is 14, d-dimer is 1.1, sodium is 139, potassium 3.4, BUN is 53, and creatinine is 1.05. Baricitinib remains on hold, and absolute lymphocyte count remains low at 0.2. Continues on Lovenox 40 mg daily, continues on multivitamins and IV steroids at 60 mg every 6 hours.nephrology is following and his IV Lasix has been replaced with torsemide.he is in -1050 ML note fluid balance over the last 24 hours On 03/28/2021 patient seen in follow-up on medical surgical floor, he is cu rrently on Airvo at 40 L and 74%, breathing comfortably, his pulse ox is 88-90%, breathing comfortable, denies any worsening dyspnea no cough, last night patient apparently got very short of breath, desaturated, she required a nonrebreather mask. He had since recovered, he was taken off the nonrebreather mask, breathing much more comfortably. He states he gets short of breath usually late at night, he does have obstructive sleep apnea however he does not wear a CPAP at a regular basis at home. Baricitinib remains on hold, today's blood work is still pending to check on his ALC. Patient continues on IV Solu-Medrol 60 g every 6 hours, Lovenox 40 mg daily, he is on Symbicort, albuterol, his IV Lasix has been switched over to Demadex per nephrology. He still has significant lower extremity edema. Today's labs have been reviewed, white blood cell count is 15.6, hemoglobin is 14.5, sodium is 143, potassium 3.7, chloride is 97, BUN is 51, creatinine is 1.2, proBNP level is 720. Patient is in -1050 ML in upload balance over the last 24 hours. No complaints of chest discomfort. Follow-up chest x-ray has been obtained showing chronic changes with bilateral multifocal opacities without significant change compared the most previous chest x-ray On 03/29/2021 patient seen in follow-up on medical surgical floor. He is sitting up in the recliner, breathing comfortably, remains on Airvo currently at 40 L and FiO2 of 73%, and pulse ox is 93%, breathing comfortably, we ordered the patient BiPAP last night however Respiratory therapy did not apply it for unclear reasons. No acute events overnight, patient is breathing fairly comfortably, no worsening cough, lung sounds reveal a few scattered rhonchi and rales, no wheezing, no complaint of chest discomfort. Patient continues on Symbicort, Lovenox, continues on Demadex 20 mg daily and IV steroids with Solu- Medrol 60 mg every 6 hours. Appetite is fair. His weight is down by 1.8 kg in the last 24 hours, lower extremity edema is improving. Today's chest x-ray showing bilateral patchy and interstitial "infiltrates without significant change. Today's labs have been reviewed, his d-dimer is improving and is down to 0.93, sodium is 145, potassium 3.7, chloride is 96, B1 is 58, creatinine is 1.2, inflammatory markers are improving, LDH is down to 530, and CRP is 1.1. On 03/30/2021 patient seen in follow-up on medical surgical floor. He is currently on Airvo at 25 L and FiO2 of 60%, breathing comfortably, he is improvi ng, and he is being switched over to regular high flow nasal cannula at 15 L, BiPAP support was not applied on the patient last night, however patient could benefit from BiPAP support at bedtime knowing his history of COPD and obstructive sleep apnea and fluid overload, on today's exam his lower extremity edema has significantly increased, nephrology is following and starting him on Lasix infusion at 10 mg per hour. Lung sounds are positive for diffuse rhonchi, patient states she is not bringing up any phlegm, denies any chest pain, his been afebrile, denies any hemoptysis. He remains on IV Solu-Medrol 60 mg every 6 hours, he remains on inhaled bronchodilators Baricitinib remains on hold. Today's labs have been reviewed, his white count is 16.27, his hemoglobin is 13.9, sodium is 142, potassium is 3.9, chloride is 95, BUN is 67, creatinine is 1.4. His inflammatory markers are improving and his LDH is down to 597, and CRP is 0.90. On 04/01/2021 patient seen in follow-up on medical surgical floor, he is currently on 15 L of oxygen, his pulse ox is 90%, he is breathing comfortably, still sounds congested, lung sounds are positive for diffuse rhonchi, he states he is not able to bring up much phlegm, his lower extremities remains swollen, they were [place] wrapped per nephrology recommendations, however he still has significant lower extremity edema, he remains on Lasix infusion at 10 mg per hour, and he is in -1.6 L net fluid balance over the last 24 hours, he continues on BiPAP support at night with pressures of 12 and 6, and FiO2 of 60%, no fever or chills, no complaints of chest discomfort. He remains on Symbicort, albuterol, he remains on IV Solu-Medrol 40 mg every 8 hours, today's labs have been reviewed, his sodium is 147, potassium is 3.7, chloride is 93, his BUN is 57.8, and creatinine is 1.2, nephrology is following, and patient is on 1500 mL water restriction. No fever or chills, his blood cultures have been negative. He is currently on Diflucan, no other antibiotics Objective - Vital Signs Vital signs: Vital Signs Temp 98.3 F 04/01/21 08:39 Pulse 106 H 04/01/21 08:39 Resp 20 04/01/21 08:39 BP 123/73 04/01/21 08:39 Pulse Ox 90 L 04/01/21 08:39 Intake & Output 03/31/21 04/01/21 04/01/21 18:59 06:59 18:59 Intake Total 100 74.167 98.167 Output Total 350 1460 Balance -250 -1385.833 98.167 Intake: Intake, IV Titration 100 74.167 98.167 Amount Furosemide 100 mg In 100 74.167 98.167 Sodium Chloride 0.9% 90 ml @ 10 MG/HR 10 mls/hr IV .Q10H [facility] Rx#: [id number] Output: Urine 350 1460 Other: Voiding Method Urinal Urinal Urinal # Voids 3 # Bowel Movements 1 0 0 - Exam GENERAL EXAM: Alert, very pleasant, 71-year-old white male, currently on 50 L high flow nasal cannula, with a pulse ox of 88-90% HEAD: Normocephalic/atraumatic. EYES: Normal reaction of pupils, equal size. Conjunctiva pink, sclera white. NOSE: Clear with pink turbinates. THROAT: No erythema or exudates. NECK: No masses, no JVD, no thyroid enlargement, no adenopathy. CHEST: No chest wall deformity. Symmetrical expansion. LUNGS: Equal air entry with diffuse crackles, and a few rhonchi CVS: Regular rate and rhythm, normal S1 and S2, no gallops, no murmurs, no rubs ABDOMEN: Soft, nontender. No hepatosplenomegaly, normal bowel sounds, no guarding or rigidity. EXTREMITIES: No clubbing, 2+ plus lower extremity edema with chronic venous stasis, no cyanosis, 2+ pulses and upper and lower extremities. MUSCULOSKELETAL: Muscle strength and tone normal. SPINE: No scoliosis or deformity SKIN: No rashes CENTRAL NERVOUS SYSTEM: Alert and oriented -3. No focal deficits, tone is normal in all 4 extremities. PSYCHIATRIC: Alert and oriented -3. Appropriate affect. Intact judgment and insight. - Labs CBC & Chem 7: 03/31/21 06:36 04/01/21 06:16 Labs: Abnormal Lab Results - Last 24 Hours (Table) 03/31/21 03/31/21 04/01/21 Range/Units 16:26 20:38 06:16 Sodium 147 H (135-145) mmol/L Chloride 93 L (96-109) mmol/L Carbon Dioxide 36.0 H (20.0-27.5) mmol/L Anion Gap 18.10 H (10.00-18.00) mmol/L BUN 57.9 H (9.0-27.0) mg/dL Est GFR (CKD-EPI)NonAf 58.9 L (60.0-200.0) BUN/Creatinine Ratio 47.46 H (12.00-20.00) Ratio Glucose 147 H (70-110) mg/dL POC Glucose (mg/dL) 264 H 397 H (75-99) mg/dL Calcium 8.6 L (8.7-10.3) mg/dL 04/01/21 04/01/21 Range/Units 06:51 11:26 Sodium (135-145) mmol/L Chloride (96-109) mmol/L Carbon Dioxide (20.0-27.5) mmol/L Anion Gap (10.00-18.00) mmol/L BUN (9.0-27.0) mg/dL Est GFR (CKD-EPI)NonAf (60.0-200.0) BUN/Creatinine Ratio (12.00-20.00) Ratio Glucose (70-110) mg/dL POC Glucose (mg/dL) 211 H 127 H (75-99) mg/dL Calcium (8.7-10.3) mg/dL Assessment and Plan Plan: Assessment: #1. Acute on chronic hypoxic respiratory failure related to acute COVID-19 related pneumonia, patient tested positive on 03/12/2021. Patient is vaccinated against COVID-19. His symptoms have worsened over last week, patient will be started on Remdesivir today on 03/13/2021, patient completed Remdesivir on 03/17/2021. Patient was weaned off the Airvo on 03/30/2021, currently on 15 L per high flow nasal cannula and BiPAP support at night with pressures of 12/6 and FiO2 of 60% #2. Acute exacerbation of COPD #3. Chronic COPD, advanced, with a baseline FEV1 of 1.71 L or FEV1 of 58% usually on home oxygen at 4 L #4. Recent 2 hospitalizations for acute exacerbation of COPD in early February, during which patient tested negative for COVID-19, urinalysis was also negative, influenza A and B were negative #5. Diabetes mellitus type 2 #6. Hypertension, #7. Hyperlipidemia #8. History of coronary artery disease with previous stenting #9. History of CHF, unspecified #10. History of CVA/TIA #11. Osteoarthritis #12. Chronic knee disease, unspecified #13. Chronic venous insufficiency #14. 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 Sleep apnea does not wear CPAP #17. Marijuana use #18. Elevated d-dimer related to acute COVID-19 infection, lower extremity Dopplers showed no evidence of DVT, d-dimer is improved since admission, patient is currently on twice-daily dose of Lovenox 40 mg Plan: Continue weaning FiO2, currently at 15 L Continue BiPAP support at bedtime His chest x-ray from yesterday still showing bilateral multifocal opacities without significant change to the prior exam He still significantly fluid overloaded, continues on Lasix infusion at 10 mg per hour Diuretics per nephrology We'll continue with current dose IV Solu-Medrol 40 mg every 8 hours, continue Lovenox Daily weight, accurate intake and output We'll follow electrolytes, renal profile Obtain follow-up inflammatory markers and d-dimer tomorrow I performed a history & physical examination of the patient and discussed their management with my nurse practitioner, Skylar Mckoy. I reviewed the nurse practitioner's note and agree with the documented findings and plan of care. Lung sounds are positive for crackles and rhonchi throughout the lung [place]. The findings and the impression was discussed with the patient. I attest to the documentation by the nurse practitioner. Time with Patient: Less than 30
[2021-04-01] MEDS: DEXTROSE 5% IN WATER 1,000 ML IV SCH (16:29)
[2021-04-01 17:09] LABS: Glucose,Whole Blood 171 mg/dL (75-99)
--- NOTE | 2021-04-01 18:44 | P.PN ---
Subjective Progress Note Date: 03/31/21 Principal diagnosis: Acute on chronic hypoxic respiratory failure secondary to COVID-19 pneumonia Patient is a 71-year-old white male with a chronic medical problems a chronic hypoxic respiratory failure uses about 4 L of oxygen at home came in the with complaints of shortness of breath and cough restarted couple days ago was also having fever restarted couple days ago. Patient is found to have COVID-19 patient has multiple other medical problems chronically and patient does have history of COPD possible chronic diastolic dysfunction patient was on IV Lasix in the past. 03/30/2021 Patient seen and evaluated and discussed with nursing staff. No specific complaints Patient remains on Airvo at 25 L and FiO2 of 60%, breathing comfortably, he is improving, and he is being switched over to regular high flow nasal cannula at 15 L Exam reveals lower extremity edema has significantly increased, nephrology is following and starting him on Lasix infusion at 10 mg per hour. He remains on IV Solu-Medrol 60 mg every 6 hours, he remains on inhaled bronchodilators Baricitinib remains on hold. Today's labs have been reviewed, his white count is 16.27, his hemoglobin is 13.9, sodium is 142, potassium is 3.9, chloride is 95, BUN is 67, creatinine is 1.4. His inflammatory markers are improving and his LDH is down to 597, and CRP is 0.90. Pulmonary recommending to continue with BiPAP support at bedtime which will bene fit patient given history of COPD, obstructive sleep apnea Agreeable with IV Lasix infusion given marked fluid retention 03/31/2021 Patient is seen and evaluated in follow-up at bedside. He is currently sitting up in a chair at the bedside. Awake and alert in no acute distress. He is maintaining O2 saturations in the 90s on 15 L high flow nasal cannula. Vital signs are stable with temperature of 97.5, pulse 73, respiration 20 and blood pressure 116/71 He is currently on a Lasix drip at 10 mg per hour. He continues with lower extremity edema. Chest x-ray continues to show cardiomegaly with chronic parenchymal changes with bilateral multifocal opacities redemonstrated. No significant change from previous. White count 25.6. Hemoglobin 14.5. Platelets 152. D-dimer 0.95. Sodium 145. Potassium 3.4. Creatinine 1.3. AST 42. ALT 126. LDH 639. C-reactive protein 9.4. He is continued on Lovenox, IV Solu-Medrol, vitamin supplements. Remains on Symbicort and albuterol. Baricitinib placed on hold due to low ALC; Remdesivir treatment is completed; continue to titrate FiO2 as able Objective - Vital Signs Vital signs: Vital Signs Temp 97.6 F 03/31/21 08:38 Pulse 98 03/31/21 08:38 Resp 20 03/31/21 08:38 BP 145/55 03/31/21 08:38 Pulse Ox 89 L 03/31/21 08:38 Intake & Output 03/30/21 03/31/21 03/31/21 18:59 06:59 18:59 Intake Total 704 169.666 Output Total 350 Balance 704 169.666 -350 Weight 92.2 kg Intake: Intake, IV Titration 169.666 Amount Furosemide 100 mg In 169.666 Sodium Chloride 0.9% 90 ml @ 10 MG/HR 10 mls/hr IV .Q10H [facility] Rx#: [id number] Oral 704 Output: Urine 350 Other: Voiding Method Urinal Urinal # Bowel Movements 1 - Exam GENERAL: The patient is alert and oriented x3, fatigues easy with activity even when talking HEENT: Pupils are round and equally reacting to light. EOMI. No scleral icterus. No conjunctival pallor. Normocephalic, atraumatic. No pharyngeal erythema. No thyromegaly. CARDIOVASCULAR: S1 and S2 present. No murmurs, rubs, or gallops. PULMONARY: Coarse scattered rhonchi throughout ABDOMEN: Soft, nontender, nondistended, normoactive bowel sounds. No palpable organomegaly. MUSCULOSKELETAL: No joint swelling or deformity. EXTREMITIES: No cyanosis, clubbing, +2 peripheral edema legs REBECCA wrapped. NEUROLOGICAL: Gross neurological examination did not reveal any focal deficits. - Labs CBC & Chem 7: 03/31/21 06:36 04/01/21 06:16 Labs: Abnormal Lab Results - Last 24 Hours (Table) 03/30/21 03/30/21 03/31/21 Range/Units 16:41 20:11 06:36 WBC (4.50-10.00) X 10*3/uL MCV (80.0-97.0) fL MCHC (32.0-37.0) g/dL RDW (11.5-14.5) % Immature Gran # (0.00-0.04) X 10*3/uL Neutrophils # (1.80-7.70) X 10*3/uL Lymphocytes # (0.90-5.00) X 10*3/uL Eosinophils # (0.04-0.35) X 10*3/uL D-Dimer (<0.60) mg/L FEU Potassium 3.4 L (3.5-5.5) mmol/L Chloride 94 L (96-109) mmol/L Carbon Dioxide 33.0 H (20.0-27.5) mmol/L BUN 65.6 H (9.0-27.0) mg/dL Est GFR (CKD-EPI)NonAf 55.0 L (60.0-200.0) BUN/Creatinine Ratio 50.85 H (12.00-20.00) Ratio Glucose 55 L (70-110) mg/dL POC Glucose (mg/dL) 148 H 175 H (75-99) mg/dL Calcium 8.6 L (8.7-10.3) mg/dL AST 42 H (14-35) U/L ALT 126 H (10-49) U/L Alkaline Phosphatase 167 H (41-126) U/L Lactate Dehydrogenase 639 H (120-246) U/L C-Reactive Protein 9.40 H (0.00-0.80) mg/dL Total Protein 5.5 L (6.2-8.2) g/dL Albumin 3.4 L (3.8-4.9) g/dL Albumin/Globulin Ratio 1.56 L (1.60-3.17) g/dL 03/31/21 03/31/21 03/31/21 Range/Units 06:36 06:36 06:56 WBC 25.60 H (4.50-10.00) X 10*3/uL MCV 103.3 H (80.0-97.0) fL MCHC 30.6 L (32.0-37.0) g/dL RDW 14.7 H (11.5-14.5) % Immature Gran # 0.26 H (0.00-0.04) X 10*3/uL Neutrophils # 24.20 H (1.80-7.70) X 10*3/uL Lymphocytes # 0.19 L (0.90-5.00) X 10*3/uL Eosinophils # 0 L (0.04-0.35) X 10*3/uL D-Dimer 0.95 H (<0.60) mg/L FEU Potassium (3.5-5.5) mmol/L Chloride (96-109) mmol/L Carbon Dioxide (20.0-27.5) mmol/L BUN (9.0-27.0) mg/dL Est GFR (CKD-EPI)NonAf (60.0-200.0) BUN/Creatinine Ratio (12.00-20.00) Ratio Glucose (70-110) mg/dL POC Glucose (mg/dL) 64 L (75-99) mg/dL Calcium (8.7-10.3) mg/dL AST (14-35) U/L ALT (10-49) U/L Alkaline Phosphatase (41-126) U/L Lactate Dehydrogenase (120-246) U/L C-Reactive Protein (0.00-0.80) mg/dL Total Protein (6.2-8.2) g/dL Albumin (3.8-4.9) g/dL Albumin/Globulin Ratio (1.60-3.17) g/dL 03/31/21 03/31/21 Range/Units 07:12 11:42 WBC (4.50-10.00) X 10*3/uL MCV (80.0-97.0) fL MCHC (32.0-37.0) g/dL RDW (11.5-14.5) % Immature Gran # (0.00-0.04) X 10*3/uL Neutrophils # (1.80-7.70) X 10*3/uL Lymphocytes # (0.90-5.00) X 10*3/uL Eosinophils # (0.04-0.35) X 10*3/uL D-Dimer (<0.60) mg/L FEU Potassium (3.5-5.5) mmol/L Chloride (96-109) mmol/L Carbon Dioxide (20.0-27.5) mmol/L BUN (9.0-27.0) mg/dL Est GFR (CKD-EPI)NonAf (60.0-200.0) BUN/Creatinine Ratio (12.00-20.00) Ratio Glucose (70-110) mg/dL POC Glucose (mg/dL) 69 L 210 H (75-99) mg/dL Calcium (8.7-10.3) mg/dL AST (14-35) U/L ALT (10-49) U/L Alkaline Phosphatase (41-126) U/L Lactate Dehydrogenase (120-246) U/L C-Reactive Protein (0.00-0.80) mg/dL Total Protein (6.2-8.2) g/dL Albumin (3.8-4.9) g/dL Albumin/Globulin Ratio (1.60-3.17) g/dL Assessment and Plan Assessment: -Acute on chronic hypoxic respiratory failure secondary to COVID-19 pneumonia wears 4L of oxygen at home, on Airvo now - Covid 19 pneumonia. He on steroids and Barcitinib, Remdesivir -Leukocytosis secondary to above -Congestive heart failure chronic diastolic dysfunction with acute exacerbation at this time patient the BNP is only 206, most recent echo shows an EF of greater than 55%. on IV lasix -acute renal failure: Probably secondary to heart failure, on IV lasix -Acute COPD exacerbation -Mild transaminitis which is better at compared to his previous admission, chronic no further intervention at this time COVID-19 can cause transaminitis is Possible congestive heart failure chronic diastolic dysfunction with mild acute exacerbation -Elevated inflammatory markers of COVID-19 -Elevated DD secondary to COVID-19 infection, doppler negative for bilateral DVT -Chronic kidney disease stage III -Gastroesophageal reflux disease -Coronary artery disease -Type 2 diabetes mellitus insulin-dependent, exacerbated by steroids -Diabetic peripheral neuropathy -Obstructive sleep apnea -Chronic hypoxic respiratory failure Secondary to COPD and the sleep apnea -Hypertension -Hyperlipidemia -Benign prostatic hypertrophy -Chronic low back pain -History of DVT in the past for which patient is on not on any anti-coagulation presently DVT prophylaxis: Lovenox GI Prophylaxis: Protonix Plan Continue Solu-medrol, zinc, vitamins, lovenox, Baricitinib on hold due to low ALC Continue bronchodilators Continue to diuresis with torsemide. Adjust insulin Continue all other supportive care Repeat labs tomorrow Prognosis is guarded for this patient.
--- NOTE | 2021-04-01 18:48 | P.PN ---
Subjective Progress Note Date: 04/01/21 Principal diagnosis: Acute on chronic hypoxic respiratory failure secondary to COVID-19 pneumonia Patient is a 71-year-old white male with a chronic medical problems a chronic hypoxic respiratory failure uses about 4 L of oxygen at home came in the with complaints of shortness of breath and cough restarted couple days ago was also having fever restarted couple days ago. Patient is found to have COVID-19 patient has multiple other medical problems chronically and patient does have history of COPD possible chronic diastolic dysfunction patient was on IV Lasix in the past. 03/30/2021 Patient seen and evaluated and discussed with nursing staff. No specific complaints Patient remains on Airvo at 25 L and FiO2 of 60%, breathing comfortably, he is improving, and he is being switched over to regular high flow nasal cannula at 15 L Exam reveals lower extremity edema has significantly increased, nephrology is following and starting him on Lasix infusion at 10 mg per hour. He remains on IV Solu-Medrol 60 mg every 6 hours, he remains on inhaled bronchodilators Baricitinib remains on hold. Today's labs have been reviewed, his white count is 16.27, his hemoglobin is 13.9, sodium is 142, potassium is 3.9, chloride is 95, BUN is 67, creatinine is 1.4. His inflammatory markers are improving and his LDH is down to 597, and CRP is 0.90. Pulmonary recommending to continue with BiPAP support at bedtime which will bene fit patient given history of COPD, obstructive sleep apnea Agreeable with IV Lasix infusion given marked fluid retention 03/31/2021 Patient is seen and evaluated in follow-up at bedside. He is currently sitting up in a chair at the bedside. Awake and alert in no acute distress. He is maintaining O2 saturations in the 90s on 15 L high flow nasal cannula. Vital signs are stable with temperature of 97.5, pulse 73, respiration 20 and blood pressure 116/71 He is currently on a Lasix drip at 10 mg per hour. He continues with lower extremity edema. Chest x-ray continues to show cardiomegaly with chronic parenchymal changes with bilateral multifocal opacities redemonstrated. No significant change from previous. White count 25.6. Hemoglobin 14.5. Platelets 152. D-dimer 0.95. Sodium 145. Potassium 3.4. Creatinine 1.3. AST 42. ALT 126. LDH 639. C-reactive protein 9.4. He is continued on Lovenox, IV Solu-Medrol, vitamin supplements. Remains on Symbicort and albuterol. Baricitinib placed on hold due to low ALC; Remdesivir treatment is completed; continue to titrate FiO2 as able 04/01/2021 Patient is seen and evaluated in follow-up on medical surgical floor, he is currently on 15 L of oxygen, his pulse ox is 90% Vital signs are reviewed, temperature 98.3, pulse 106, respiration 20 and blood pressure 123/73, he is breathing comfortabl Patient remains on Lasix infusion at 10 mg per hour, and he is in -1.6 L net fluid balance over the last 24 hours, he continues on BiPAP support at night with pressures of 12 and 6, and FiO2 of 60%, no fever or chills, no complaints of chest discomfort. Continue with Symbicort, albuterol, he remains on IV Solu-Medrol 40 mg every 8 hours, today's labs have been reviewed, his sodium is 147, potassium is 3.7, chloride is 93, his BUN is 57.8, and creatinine is 1.2, nephrology is following, and patient is on 1500 mL water restriction. No fever or chills, his blood cultures have been negative. He is currently on Diflucan, no other antibiotics Patient remains significantly fluid overloaded with chest x-ray still revealing bilateral multifocal opacities; nephrology recommending to continue Lasix infusion at 10 mg per hour Objective - Vital Signs Vital signs: Vital Signs Temp 98.3 F 04/01/21 08:39 Pulse 106 H 04/01/21 08:39 Resp 20 04/01/21 08:39 BP 123/73 04/01/21 08:39 Pulse Ox 90 L 04/01/21 08:39 Intake & Output 03/31/21 04/01/21 04/01/21 18:59 06:59 18:59 Intake Total 100 74.167 98.167 Output Total 350 1460 Balance -250 -1385.833 98.167 Intake: Intake, IV Titration 100 74.167 98.167 Amount Furosemide 100 mg In 100 74.167 98.167 Sodium Chloride 0.9% 90 ml @ 10 MG/HR 10 mls/hr IV .Q10H [facility] Rx#: [id number] Output: Urine 350 1460 Other: Voiding Method Urinal Urinal Urinal # Voids 3 # Bowel Movements 1 0 0 - Exam GENERAL: The patient is alert and oriented x3, fatigues easy with activity even when talking HEENT: Pupils are round and equally reacting to light. EOMI. No scleral icterus. No conjunctival pallor. Normocephalic, atraumatic. No pharyngeal erythema. No thyromegaly. CARDIOVASCULAR: S1 and S2 present. No murmurs, rubs, or gallops. PULMONARY: Coarse scattered rhonchi throughout ABDOMEN: Soft, nontender, nondistended, normoactive bowel sounds. No palpable organomegaly. MUSCULOSKELETAL: No joint swelling or deformity. EXTREMITIES: No cyanosis, clubbing, +2 peripheral edema legs REBECCA wrapped. NEUROLOGICAL: Gross neurological examination did not reveal any focal deficits. - Labs CBC & Chem 7: 03/31/21 06:36 04/01/21 06:16 Labs: Abnormal Lab Results - Last 24 Hours (Table) 03/31/21 03/31/21 04/01/21 Range/Units 16:26 20:38 06:16 Sodium 147 H (135-145) mmol/L Chloride 93 L (96-109) mmol/L Carbon Dioxide 36.0 H (20.0-27.5) mmol/L Anion Gap 18.10 H (10.00-18.00) mmol/L BUN 57.9 H (9.0-27.0) mg/dL Est GFR (CKD-EPI)NonAf 58.9 L (60.0-200.0) BUN/Creatinine Ratio 47.46 H (12.00-20.00) Ratio Glucose 147 H (70-110) mg/dL POC Glucose (mg/dL) 264 H 397 H (75-99) mg/dL Calcium 8.6 L (8.7-10.3) mg/dL 04/01/21 04/01/21 Range/Units 06:51 11:26 Sodium (135-145) mmol/L Chloride (96-109) mmol/L Carbon Dioxide (20.0-27.5) mmol/L Anion Gap (10.00-18.00) mmol/L BUN (9.0-27.0) mg/dL Est GFR (CKD-EPI)NonAf (60.0-200.0) BUN/Creatinine Ratio (12.00-20.00) Ratio Glucose (70-110) mg/dL POC Glucose (mg/dL) 211 H 127 H (75-99) mg/dL Calcium (8.7-10.3) mg/dL Assessment and Plan Assessment: -Acute on chronic hypoxic respiratory failure secondary to COVID-19 pneumonia wears 4L of oxygen at home, on Airvo now - Covid 19 pneumonia. He on steroids and Barcitinib, Remdesivir -Leukocytosis secondary to above -Congestive heart failure chronic diastolic dysfunction with acute exacerbation at this time patient the BNP is only 206, most recent echo shows an EF of greater than 55%. on IV lasix -acute renal failure: Probably secondary to heart failure, on IV lasix -Acute COPD exacerbation -Mild transaminitis which is better at compared to his previous admission, chronic no further intervention at this time COVID-19 can cause transaminitis is Possible congestive heart failure chronic diastolic dysfunction with mild acute exacerbation -Elevated inflammatory markers of COVID-19 -Elevated DD secondary to COVID-19 infection, doppler negative for bilateral DVT -Chronic kidney disease stage III -Gastroesophageal reflux disease -Coronary artery disease -Type 2 diabetes mellitus insulin-dependent, exacerbated by steroids -Diabetic peripheral neuropathy -Obstructive sleep apnea -Chronic hypoxic respiratory failure Secondary to COPD and the sleep apnea -Hypertension -Hyperlipidemia -Benign prostatic hypertrophy -Chronic low back pain -History of DVT in the past for which patient is on not on any anti-coagulation presently DVT prophylaxis: Lovenox GI Prophylaxis: Protonix Plan Continue Solu-medrol, zinc, vitamins, lovenox, Baricitinib on hold due to low ALC Continue bronchodilators Continue to diuresis with torsemide. Adjust insulin Continue all other supportive care Repeat labs tomorrow Prognosis is guarded for this patient.
[2021-04-01 20:26] LABS: Glucose,Whole Blood 297 mg/dL (75-99)
[2021-04-01] MEDS ORDERED: traMADol 50 MG TAB PO STA (22:41)
[2021-04-01] MEDS: INSULIN DETEMIR (LEVEMIR) 100 UNIT/ML SYR SQ SCH (22:44)
[2021-04-01] MEDS: PRAMIPEXOLE 1 MG TAB PO SCH (22:45)
[2021-04-01] MEDS: METOPROLOL TARTRATE 25 MG TAB PO SCH (22:45)
[2021-04-02 01:36] LABS: ABG Base Excess 16.2 mmol/L; ABG Oxygen Saturation 90.2 % (94-97); ABG PCO2 52 mmHg (35-45); ABG PH 7.49 (7.35-7.45); ABG TCO2 41 mmol/L (19-24); Allen Test Performed? Yes
[2021-04-02 01:43] LABS: ABG PO2 58 mmHg (83-108)
[2021-04-02 01:44] LABS: ABG HCO3 40 mmol/L (21-25)
[2021-04-02] MEDS: FUROSEMIDE 100 MG in SODIUM CHLORIDE 0.9% 90 ML IV SCH ×2 (04:43→12:41)
[2021-04-02 07:04] LABS: Glucose,Whole Blood 171 mg/dL (75-99)
[2021-04-02] MEDS: TAMSULOSIN 0.4 MG CAP.ER.24H PO SCH (09:10)
[2021-04-02] MEDS: ZINC SULFATE 220 MG CAP PO SCH (09:10)
[2021-04-02] MEDS: allopurinoL 100 MG TAB PO SCH (09:10)
[2021-04-02] MEDS: QUEtiapine 25 MG TAB PO SCH ×2 (09:10→21:11)
[2021-04-02] MEDS: ASPIRIN 81 MG PO SCH (09:10)
[2021-04-02] MEDS: FLUCONAZOLE 100 MG TAB PO SCH (09:10)
[2021-04-02] MEDS: FAMOTIDINE 20 MG TAB PO SCH (09:10)
[2021-04-02] MEDS: INSULIN ASPART (NovoLOG) 100 UNIT/ML VIAL SQ SCH ×8 (09:11→20:45)
[2021-04-02] MEDS: ASCORBIC ACID 500 MG TAB PO SCH ×2 (09:11→21:11)
[2021-04-02] MEDS: CHOLECALCIFEROL 125 MCG (5000 IU) TABLET PO SCH (09:11)
[2021-04-02] MEDS: ISOSORBIDE MONONITRATE ER 30 MG TAB.ER.24H PO SCH (09:11)
[2021-04-02] MEDS: PANTOPRAZOLE 40 MG TABLET PO SCH (09:11)
[2021-04-02] MEDS: METOPROLOL TARTRATE 50 MG TAB PO SCH (09:11)
[2021-04-02] MEDS: ENOXAPARIN 40 MG/0.4 ML SYRINGE SQ SCH (09:12)
[2021-04-02] MEDS: methylPREDNISolone SOD SUCCI 40 MG/ML 1 ML VIAL IV SCH ×3 (09:12→23:05)
[2021-04-02] MEDS: SYMBICORT 160-4.5 MCG INHALER INHALATION SCH ×2 (09:24→21:33)
[2021-04-02] MEDS: ALBUTEROL HFA INHALER INHALATION SCH ×4 (09:24→21:19)
[2021-04-02] MEDS: NYSTATIN 100,000 UNIT/ML SUSP 500,000 UNIT/5 ML CUP PO SCH ×4 (10:33→21:11)
[2021-04-02] MEDS: COLCHICINE 0.6 MG EACH PO SCH (11:12)
[2021-04-02] MEDS: LIDOCAINE 5% PATCH TOPICAL SCH (11:12)
[2021-04-02 11:30] LABS: C Reactive Protein 23.4 mg/dL (0.00-0.80)
[2021-04-02 11:32] LABS: African American GFR (CKD) 63.8 (60.0-200.0); Albumin 2.7 g/dL (3.8-4.9); Albumin/Globulin Ratio 1.39 (1.60-3.17); Anion Gap 15.1 mmol/L (10.00-18.00); BUN/Creat Ratio 51.32 Ratio (12.00-20.00); Blood Urea Nitrogen 66.2 mg/dL (9.0-27.0); Calcium 8.4 mg/dL (8.7-10.3); Carbon Dioxide 34.2 mmol/L (20.0-27.5); Globulin 1.9 g/dL (1.6-3.3); Potassium 2.7 mmol/L (3.5-5.5); Total Bilirubin 0.4 mg/dL (0.30-1.20); Total Protein 4.6 g/dL (6.2-8.2)
[2021-04-02 11:37] LABS: Basophils # (A) 0.06 X 10*3/uL (0.00-0.10); Basophils % (A) 0.4 %; Eosinophils # (A) 0 X 10*3/uL (0.04-0.35); Eosinophils % (A) 0 %; HCT 40.7 % (39.6-50.0); HGB 12.9 g/dL (13.0-17.0); Lymphocytes # (A) 0.18 X 10*3/uL (0.90-5.00); Lymphocytes % (A) 1.2 %; MCH 32.4 pg (27.0-32.0); MCHC 31.7 g/dL (32.0-37.0); MCV 102.3 fL (80.0-97.0); Monocytes # (A) 0.36 X 10*3/uL (0.20-1.00); Monocytes % (A) 2.3 %; Neutrophils # (A) 14.86 X 10*3/uL (1.80-7.70); Neutrophils % (A) 95.2 %; Platelet Count 69 X 10*3/uL (140-440); RBC 3.98 X 10*6/uL (4.40-5.60); RDW 14.7 % (11.5-14.5)
[2021-04-02 11:47] LABS: Glucose,Whole Blood 209 mg/dL (75-99)
--- NOTE | 2021-04-02 11:48 | XR ---
EXAMINATION TYPE: XR chest 1V portable DATE OF EXAM: 04/02/2021 COMPARISON: 03/31/2021 HISTORY: Follow-up pneumonia TECHNIQUE: Single frontal view of the chest is obtained. FINDINGS: Persistent bilateral patchy interstitial infiltrates seen diffusely. No significant interv al change. Postsurgical change right shoulder, diffuse osteopenia and arthropathy left shoulder. Pleu ral thickening versus tiny effusion. No pneumothorax. Atherosclerotic change aorta. Heart size stable . Underlying COPD suspected. IMPRESSION: Stable diffuse patchy bilateral infiltrates.
[2021-04-02] MEDS ORDERED: POTASSIUM CHLORIDE ER 20 MEQ TAB.ER PO STA (12:36)
[2021-04-02] MEDS: DEXTROSE 5% IN WATER 1,000 ML IV SCH (12:54)
[2021-04-02 14:34] VITALS: BMI 31.8
[2021-04-02] MEDS: SODIUM CHLORIDE 0.9% 1,000 ML IV SCH (15:31)
[2021-04-02] MEDS: POTASSIUM CHLORIDE 10 MEQ in WATER FOR INJECTION 1 100ML.BAG IVPB SCH ×5 (15:39→23:27)
[2021-04-02 16:53] LABS: Glucose,Whole Blood 121 mg/dL (75-99)
--- NOTE | 2021-04-02 17:31 | P.PN ---
Subjective Progress Note Date: 04/02/21 Principal diagnosis: Dyspnea This 71-year-old white male patient who follows with Dr. Torres in the pulmonary clinic for his history of advanced COPD on home oxygen patient usually wears 4 L on a regular basis, he is prednisone dependent and usually takes 20 mg on a regular basis, coronary artery disease, diabetes mellitus type 2, previous history of CVA, hypertension, hyperlipidemia, previous history of pneumonia, chronic kidney disease unspecified, sleep apnea, BPH, osteoarthritis. Patient presented to the emergency department on 03/12/2021 for evaluation of worsening dyspnea. Patient had a fever at home up to 101.7F. He saw Dr. Torres on Friday03/09/2021 and his antibiotics were changed. Patient was also given a prednisone taper and was placed on Levaquin. Has chronic swelling in his lower extremities which is unchanged. Of note patient was tested for COVID-19 on 03/02/2021 and was found to be negative. During this visit to the ED he tested positive on 03/12/2021. Patient has been vaccinated against COVID-19. His chest x-ray shows increasing diffuse interstitial opacity, with the possibility of fluid overload/CHF, interstitial pneumonitis, atypical pneumonia or chronic pneumonia. His blood work on admission has been reviewed showing white blood cell count of 12.7, hemoglobin of 12.3, his INR 0.9, sodium is 136, potassium is 4.2, chloride is 97, CO2 31, BUN is 55, creatinine is 1.28, troponin is less than 0.012, proBNP is within normal limits at 206. Patient has been started on Decadron 6 blood gram daily which we will increase to twice daily, he was placed on albuterol and Symbicort, he is on subcutaneous heparin 5000 units every 12 h ours, and the patient is within the window for Remdesivir which she will be started on today. On 03/14/2021 patient seen in follow-up on medical surgical floor, he is breathing comfortably, she is resting in bed, no worsening dyspnea, he is currently on 12 L of oxygen his pulse ox is 92%, does have mildly congested cough, no chest discomfort, blood pressure is stable, his been afebrile. Lower extremity Dopplers showed no evidence of DVT. Today's labs have been reviewed, his white count is 16.9, hemoglobin is 12.8, sodium is 146, the rest of electrolytes are within normal limits, BUN is 40, creatinine is 1.2. LDH was 526, not significantly elevated, CRP was 13.6, follow-up in addition he remains on prophylactic dose Lovenox, he is on Decadron 6 mg twice daily. On 03/15/2021 patient seen in follow-up on medical surgical floor. He is awake and alert, he is currently on 10 L of oxygen, down from 12 L on yesterday's exam, he states his breathing is improving, his coughing less, his been afebrile, hemodynamically stable, no chest discomfort. His been ambulating about the room, tolerates activity well. Today's chest x-ray showing mild cardiomegaly, and stable diffuse interstitial changes and patchy peripheral infiltrates. Today's labs have been reviewed, his white blood cell count is 21.2, hemoglobin is 13.3, his d-dimer is improved and is down to 1.23, sodium is 146, the rest of the electrolytes are within normal limits, BUN is 44, creatinine is 1.3. His LDH is 625, slightly increased from most previous value of 526, CRP is improved and is down to 4.7 on today's labs, pro-calcitonin level is negative 2 at 0.16, and 0.19. Blood cultures have shown no growth. He cur rently continues on Decadron 6 mg twice daily, he is on Lovenox 40 mg once daily, he is on IV Lasix 40 mg every 12 hours, and we started him on the Remdesivir yesterday and today is day 3 of treatment. On 03/16/2021 patient seen in follow-up on medical surgical floor, he is awake and alert, in no acute distress, he states his breathing is about the same, not any worse, however his oxygen demand has increased to 15 L, his pulse ox is 88- 90%, his been afebrile, blood pressures been stable, denies any chest discomfort, no hemoptysis, lung sounds reveal scattered crackles mostly at bilateral bases, his chest x-ray from yesterday showed mild cardiomegaly, diffuse interstitial changes. Patient has been on IV Lasix 40 mg twice daily unfortunately has not fluid balance is very difficult to estimate, his lower extremity edema appears to be slightly better. He continues on Remdesivir, and today is day 4 of treatment. Today's labs have been reviewed, his white count is improving and is down to 16.5, hemoglobin is 12.4, his d-dimer was improving on yesterday's labs, and was down to 1.23, patient remains on prophylactic dose Lovenox 40 mg daily, BUN is 47, creatinine is 1.3, potassium is 3.8, sodium is 141, pro-calcitonin level was negative 2. Blood cultures were negative 2. On 03/18/2021 patient seen in follow-up on medical surgical floor. Patient was noted to be desaturating on high flow nasal cannula and nonrebreather mask due to the low 80s, and he was initially placed on Airvo at 60 L and FiO2 of 90% in addition to a nonrebreather mask and his pulse ox is only 90%. Clinically he states he feels like his breathing is getting better, he looks comfortable, does not appear to be in any acute distress, not using accessory muscles of breathing, he finished his course of Remdesivir, he currently remains on Decadron 6 mg twice daily, Lovenox 20 mg once daily, she denies any chest discomfort, denies any hemoptysis. Today's labs have been reviewed, his white blood cell count is relatively stable at 16.3, hemoglobin is 13.2, his d-dimer is 1.01, sodium is 145, potassium is 4.5, chloride is 101, BUN is 54 creatinine is 1.5., His LDH is stable at 643, and CRP is improved and is down to 1.7, his pro-calcitonin level was negative on 05/16/2020 at 0.19. Blood cultures show no growth. On 03/19/2021 patient seen in follow-up on medical surgical floor, today he is on Airvo at 55 L and FiO2 of 88% in addition to nonrebreather mask, and his pulse ox is 90-91%, and as such his oxygenation requirement has increased He denies worsening dyspnea, he states he is breathing fairly comfortably, minimal wheezing on today's exam, yesterday we switched his IV steroids to IV Solu- Medrol 60 mg every 6 hours, less wheezing, less coughing, no crackles noted. His last chest x-ray from yesterday on 03/18/2021 showed stable cardio megaly, stable diffuse interstitial changes and patchy mid to lower lung peripheral infiltrates likely related to COVID-19 pneumonia. Currently patient is on Baricitinib, IV Solu-Medrol 60 mg every 6 hours, he is on IV Lasix 40 mg every 8 hours, Lovenox 40 mg once daily, he is on home dose colchicine 0.6 mg daily. Vital signs have been stable, his been afebrile. Mild edema in bilateral lower extremities. Today's labs have been reviewed, white blood cell count is improving and is down to 12.5, hemoglobin is 13.4, his neutrophil count is 11.1, leukocyte count of 0.7, electrolytes are unremarkable, B1 is 58 creatinine is 1.4, renal profile slightly improved from yesterday, nephrology is following, his inflammatory markers slightly improved and LDH is down to 612, and CRP is 1.3. On 03/20/2021 patient seen in follow-up on medical surgical floor. He is awake and alert, in no acute distress although still requiring high flow oxygen. He is sitting up in the recliner, currently on Airvo at 55 L and FiO2 of 88% in addition to 100% nonrebreather mask. His lung sounds are improved, he is less wheezy, no rhonchi, less congested, and he feels like his breathing is improving. Occasional cough, no significant phlegm production. Patient's nonrebreather mask was removed, and patient is maintaining O2 saturations at 95% on just Airvo at 55 L and FiO2 of 85%. Afebrile. Currently patient is on Baricitinib, IV Solu-Medrol 60 mg every 6 hours, he is on IV Lasix 40 mg every 12 hours, Lovenox 40 mg once daily, he is on home dose colchicine 0.6 mg daily. Vital signs have been stable, his been afebrile. Mild edema in bilateral lower extremities. No new chest x-ray today. Patient continues to diurese, he is in -880 mL net fluid balance over the last 24 hours, lower extremity edema is improving, breathing is improving. Today's labs have been reviewed, sodium is 138, potassium is 3.8, chloride is 97, CO2 is 34, B1 is 66 creatinine 1.3. On 03/26/2021 patient seen in follow-up on medical surgical floor. He is resting comfortably in the recliner, he remains on Airvo by 1574%, he is not requiring nonrebreather mask, breathing comfortably, he responds appropriately, does not appear to be in any acute distress, no complaint of chest pain, lung sounds are positive for diffuse rhonchi, still has mild chest congestion. Currently remains on Symbicort, Ventolin, he is on IV steroids 60 mg every 6 hours of Solu-Medrol, Baricitinib remains on hold related to low ALC which is at 0.2. Today's labs have been reviewed, his white blood cell count is improving and is down to 15, hemoglobin is 14.3, sodium is 140, potassium 3.7, chloride is 96, CO2 is 40, B1 is 56 creatinine is 1.14. His Lovenox is a 40 mg daily, she remains on IV diuretics with Lasix 40 mg every 12 hours. No worsening swelling in bilateral lower extremities, overall lower extremity edema has significantly improved, no net fluid balance is available for this shift. Overall his weight is down by 1.9 kg over last 24-48 hours. on 03/27/2021 patient seen in follow-up on medical surgical floor. Remains on Airvo down to 45 L and FiO2 of 73%, his pulse ox is 92-93%, he does desaturate and has exertional dyspnea. Afebrile. no complaints of chest discomfort, overall seems to be improving. today's labs have been reviewed. White count is improved and is down to 14, hemoglobin is 14, d-dimer is 1.1, sodium is 139, potassium 3.4, BUN is 53, and creatinine is 1.05. Baricitinib remains on hold, and absolute lymphocyte count remains low at 0.2. Continues on Lovenox 40 mg daily, continues on multivitamins and IV steroids at 60 mg every 6 hours.nephrology is following and his IV Lasix has been replaced with torsemide.he is in -1050 ML note fluid balance over the last 24 hours On 03/28/2021 patient seen in follow-up on medical surgical floor, he is cu rrently on Airvo at 40 L and 74%, breathing comfortably, his pulse ox is 88-90%, breathing comfortable, denies any worsening dyspnea no cough, last night patient apparently got very short of breath, desaturated, she required a nonrebreather mask. He had since recovered, he was taken off the nonrebreather mask, breathing much more comfortably. He states he gets short of breath usually late at night, he does have obstructive sleep apnea however he does not wear a CPAP at a regular basis at home. Baricitinib remains on hold, today's blood work is still pending to check on his ALC. Patient continues on IV Solu-Medrol 60 g every 6 hours, Lovenox 40 mg daily, he is on Symbicort, albuterol, his IV Lasix has been switched over to Demadex per nephrology. He still has significant lower extremity edema. Today's labs have been reviewed, white blood cell count is 15.6, hemoglobin is 14.5, sodium is 143, potassium 3.7, chloride is 97, BUN is 51, creatinine is 1.2, proBNP level is 720. Patient is in -1050 ML in upload balance over the last 24 hours. No complaints of chest discomfort. Follow-up chest x-ray has been obtained showing chronic changes with bilateral multifocal opacities without significant change compared the most previous chest x-ray On 03/29/2021 patient seen in follow-up on medical surgical floor. He is sitting up in the recliner, breathing comfortably, remains on Airvo currently at 40 L and FiO2 of 73%, and pulse ox is 93%, breathing comfortably, we ordered the patient BiPAP last night however Respiratory therapy did not apply it for unclear reasons. No acute events overnight, patient is breathing fairly comfortably, no worsening cough, lung sounds reveal a few scattered rhonchi and rales, no wheezing, no complaint of chest discomfort. Patient continues on Symbicort, Lovenox, continues on Demadex 20 mg daily and IV steroids with Solu- Medrol 60 mg every 6 hours. Appetite is fair. His weight is down by 1.8 kg in the last 24 hours, lower extremity edema is improving. Today's chest x-ray showing bilateral patchy and interstitial "infiltrates without significant change. Today's labs have been reviewed, his d-dimer is improving and is down to 0.93, sodium is 145, potassium 3.7, chloride is 96, B1 is 58, creatinine is 1.2, inflammatory markers are improving, LDH is down to 530, and CRP is 1.1. On 03/30/2021 patient seen in follow-up on medical surgical floor. He is currently on Airvo at 25 L and FiO2 of 60%, breathing comfortably, he is improvi ng, and he is being switched over to regular high flow nasal cannula at 15 L, BiPAP support was not applied on the patient last night, however patient could benefit from BiPAP support at bedtime knowing his history of COPD and obstructive sleep apnea and fluid overload, on today's exam his lower extremity edema has significantly increased, nephrology is following and starting him on Lasix infusion at 10 mg per hour. Lung sounds are positive for diffuse rhonchi, patient states she is not bringing up any phlegm, denies any chest pain, his been afebrile, denies any hemoptysis. He remains on IV Solu-Medrol 60 mg every 6 hours, he remains on inhaled bronchodilators Baricitinib remains on hold. Today's labs have been reviewed, his white count is 16.27, his hemoglobin is 13.9, sodium is 142, potassium is 3.9, chloride is 95, BUN is 67, creatinine is 1.4. His inflammatory markers are improving and his LDH is down to 597, and CRP is 0.90. On 04/01/2021 patient seen in follow-up on medical surgical floor, he is currently on 15 L of oxygen, his pulse ox is 90%, he is breathing comfortably, still sounds congested, lung sounds are positive for diffuse rhonchi, he states he is not able to bring up much phlegm, his lower extremities remains swollen, they were [place] wrapped per nephrology recommendations, however he still has significant lower extremity edema, he remains on Lasix infusion at 10 mg per hour, and he is in -1.6 L net fluid balance over the last 24 hours, he continues on BiPAP support at night with pressures of 12 and 6, and FiO2 of 60%, no fever or chills, no complaints of chest discomfort. He remains on Symbicort, albuterol, he remains on IV Solu-Medrol 40 mg every 8 hours, today's labs have been reviewed, his sodium is 147, potassium is 3.7, chloride is 93, his BUN is 57.8, and creatinine is 1.2, nephrology is following, and patient is on 1500 mL water restriction. No fever or chills, his blood cultures have been negative. He is currently on Diflucan, no other antibiotics On 04/02/2021 patient seen in follow-up on medical surgical floor. He is currently on BiPAP support, and the staff thought the patient was supposed to be on BiPAP [id number], however it was only ordered for bedtime. No worsening dyspnea, patient is able to tolerate nasal cannula, and he was actually tolerating high flow nasal cannula trials at 15 L, Airvo was discontinued, he is awake and alert, denies any worsening dyspnea, no chest pain, lung sounds reveal diminished breath sounds with some diffuse crackles, no fever, blood pressures been stable, he remains on Lasix infusion at 10 mg per hour, nephrology is following and managing the Lasix infusion and Lasix was dropped down to 5 mg daily. Today's labs have been reviewed. White blood cell count is improving and is down to 15.6, hemoglobin is 12.9, d-dimer is 1, sodium is 143, potassium is 2.7, this was replaced per protocol, BUN is 66, creatinine is 1.3, his LFTs are improving, AST is 31, ALT is 91, alk phos is 154, LDH is down to 507, CRP is actually increased and is up to 23.4. His blood cultures have shown no growth. Patient currently remains on inhaled bronchodilators, and remains on IV Solu-Medrol 40 mg every 8 hours. Chest x-ray today shows stable diffuse patchy bilateral infiltrates. Objective - Vital Signs Vital signs: Vital Signs Temp 98.0 F 04/02/21 14:00 Pulse 83 04/02/21 14:00 Resp 22 04/02/21 14:00 BP 115/44 04/02/21 14:00 Pulse Ox 95 04/02/21 15:47 Intake & Output 04/01/21 04/02/21 04/02/21 18:59 06:59 18:59 Intake Total 98.167 409.5 79.667 Output Total 1650 600 Balance 98.167 -1240.5 -520.333 Weight 92.2 kg Intake: Intake, IV Titration 98.167 159.5 79.667 Amount Furosemide 100 mg In 98.167 159.5 79.667 Sodium Chloride 0.9% 90 ml @ 10 MG/HR 10 mls/hr IV .Q10H [facility] Rx#: [id number] Oral 250 Output: Urine 1650 600 Other: Voiding Method Urinal Urinal Urinal # Voids 1 # Bowel Movements 0 0 - Exam GENERAL EXAM: Alert, very pleasant, 71-year-old white male, currently on BiPAP support with pressures of 16/8 and FiO2 of 60% HEAD: Normocephalic/atraumatic. EYES: Normal reaction of pupils, equal size. Conjunctiva pink, sclera white. NOSE: Clear with pink turbinates. THROAT: No erythema or exudates. NECK: No masses, no JVD, no thyroid enlargement, no adenopathy. CHEST: No chest wall deformity. Symmetrical expansion. LUNGS: Equal air entry with diffuse crackles, and a few rhonchi CVS: Regular rate and rhythm, normal S1 and S2, no gallops, no murmurs, no rubs ABDOMEN: Soft, nontender. No hepatosplenomegaly, normal bowel sounds, no guarding or rigidity. EXTREMITIES: No clubbing, 2+ plus lower extremity edema with chronic venous stasis, no cyanosis, 2+ pulses and upper and lower extremities. MUSCULOSKELETAL: Muscle strength and tone normal. SPINE: No scoliosis or deformity SKIN: No rashes CENTRAL NERVOUS SYSTEM: Alert and oriented -3. No focal deficits, tone is normal in all 4 extremities. PSYCHIATRIC: Alert and oriented -3. Appropriate affect. Intact judgment and insight. - Labs CBC & Chem 7: 04/02/21 06:18 04/02/21 06:18 Labs: Abnormal Lab Results - Last 24 Hours (Table) 04/01/21 04/02/21 04/02/21 Range/Units 20:23 01:18 06:18 WBC 15.60 H (4.50-10.00) X 10*3/uL RBC 3.98 L (4.40-5.60) X 10*6/uL Hgb 12.9 L (13.0-17.0) g/dL MCV 102.3 H (80.0-97.0) fL MCH 32.4 H (27.0-32.0) pg MCHC 31.7 L (32.0-37.0) g/dL RDW 14.7 H (11.5-14.5) % Plt Count 69 L (140-440) X 10*3/uL Plt Count Comment DECREASED A MPV 13.0 H (9.5-12.2) fL Immature Gran # 0.14 H (0.00-0.04) X 10*3/uL Neutrophils # 14.86 H (1.80-7.70) X 10*3/uL Lymphocytes # 0.18 L (0.90-5.00) X 10*3/uL Eosinophils # 0 L (0.04-0.35) X 10*3/uL Immature Plt Fraction 10.4 H (1.1-6.1) % D-Dimer (<0.60) mg/L FEU ABG pH 7.49 H (7.35-7.45) ABG pCO2 52 H (35-45) mmHg ABG pO2 58 L* (83-108) mmHg ABG HCO3 40 H* (21-25) mmol/L ABG Total CO2 41 H (19-24) mmol/L ABG O2 Saturation 90.2 L (94-97) % Potassium (3.5-5.5) mmol/L Chloride (96-109) mmol/L Carbon Dioxide (20.0-27.5) mmol/L BUN (9.0-27.0) mg/dL Est GFR (CKD-EPI)NonAf (60.0-200.0) BUN/Creatinine Ratio (12.00-20.00) Ratio Glucose (70-110) mg/dL POC Glucose (mg/dL) 297 H (75-99) mg/dL Calcium (8.7-10.3) mg/dL ALT (10-49) U/L Alkaline Phosphatase (41-126) U/L Lactate Dehydrogenase (120-246) U/L C-Reactive Protein (0.00-0.80) mg/dL Total Protein (6.2-8.2) g/dL Albumin (3.8-4.9) g/dL Albumin/Globulin Ratio (1.60-3.17) g/dL 04/02/21 04/02/21 04/02/21 Range/Units 06:18 06:18 07:02 WBC (4.50-10.00) X 10*3/uL RBC (4.40-5.60) X 10*6/uL Hgb (13.0-17.0) g/dL MCV (80.0-97.0) fL MCH (27.0-32.0) pg MCHC (32.0-37.0) g/dL RDW (11.5-14.5) % Plt Count (140-440) X 10*3/uL Plt Count Comment MPV (9.5-12.2) fL Immature Gran # (0.00-0.04) X 10*3/uL Neutrophils # (1.80-7.70) X 10*3/uL Lymphocytes # (0.90-5.00) X 10*3/uL Eosinophils # (0.04-0.35) X 10*3/uL Immature Plt Fraction (1.1-6.1) % D-Dimer 1.00 H (<0.60) mg/L FEU ABG pH (7.35-7.45) ABG pCO2 (35-45) mmHg ABG pO2 (83-108) mmHg ABG HCO3 (21-25) mmol/L ABG Total CO2 (19-24) mmol/L ABG O2 Saturation (94-97) % Potassium 2.7 L* (3.5-5.5) mmol/L Chloride 94 L (96-109) mmol/L Carbon Dioxide 34.2 H (20.0-27.5) mmol/L BUN 66.2 H (9.0-27.0) mg/dL Est GFR (CKD-EPI)NonAf 55.0 L (60.0-200.0) BUN/Creatinine Ratio 51.32 H (12.00-20.00) Ratio Glucose 185 H (70-110) mg/dL POC Glucose (mg/dL) 171 H (75-99) mg/dL Calcium 8.4 L (8.7-10.3) mg/dL ALT 91 H (10-49) U/L Alkaline Phosphatase 154 H (41-126) U/L Lactate Dehydrogenase 507 H (120-246) U/L C-Reactive Protein 23.40 H (0.00-0.80) mg/dL Total Protein 4.6 L (6.2-8.2) g/dL Albumin 2.7 L (3.8-4.9) g/dL Albumin/Globulin Ratio 1.39 L (1.60-3.17) g/dL 04/02/21 04/02/21 Range/Units 11:46 16:53 WBC (4.50-10.00) X 10*3/uL RBC (4.40-5.60) X 10*6/uL Hgb (13.0-17.0) g/dL MCV (80.0-97.0) fL MCH (27.0-32.0) pg MCHC (32.0-37.0) g/dL RDW (11.5-14.5) % Plt Count (140-440) X 10*3/uL Plt Count Comment MPV (9.5-12.2) fL Immature Gran # (0.00-0.04) X 10*3/uL Neutrophils # (1.80-7.70) X 10*3/uL Lymphocytes # (0.90-5.00) X 10*3/uL Eosinophils # (0.04-0.35) X 10*3/uL Immature Plt Fraction (1.1-6.1) % D-Dimer (<0.60) mg/L FEU ABG pH (7.35-7.45) ABG pCO2 (35-45) mmHg ABG pO2 (83-108) mmHg ABG HCO3 (21-25) mmol/L ABG Total CO2 (19-24) mmol/L ABG O2 Saturation (94-97) % Potassium (3.5-5.5) mmol/L Chloride (96-109) mmol/L Carbon Dioxide (20.0-27.5) mmol/L BUN (9.0-27.0) mg/dL Est GFR (CKD-EPI)NonAf (60.0-200.0) BUN/Creatinine Ratio (12.00-20.00) Ratio Glucose (70-110) mg/dL POC Glucose (mg/dL) 209 H 121 H (75-99) mg/dL Calcium (8.7-10.3) mg/dL ALT (10-49) U/L Alkaline Phosphatase (41-126) U/L Lactate Dehydrogenase (120-246) U/L C-Reactive Protein (0.00-0.80) mg/dL Total Protein (6.2-8.2) g/dL Albumin (3.8-4.9) g/dL Albumin/Globulin Ratio (1.60-3.17) g/dL Assessment and Plan Plan: Assessment: #1. Acute on chronic hypoxic respiratory failure related to acute COVID-19 related pneumonia, patient tested positive on 03/12/2021. Patient is vaccinated against COVID-19. His symptoms have worsened over last week, patient will be started on Remdesivir today on 03/13/2021, patient completed Remdesivir on 03/17/2021. Patient was weaned off the Airvo on 03/30/2021, currently on 15 L per high flow nasal cannula and BiPAP support at night with pressures of 16/8 and FiO2 of 60% #2. Acute exacerbation of COPD #3. Chronic COPD, advanced, with a baseline FEV1 of 1.71 L or FEV1 of 58% usually on home oxygen at 4 L #4. Recent 2 hospitalizations for acute exacerbation of COPD in early February, during which patient tested negative for COVID-19, urinalysis was also negative, influenza A and B were negative #5. Diabetes mellitus type 2 #6. Hypertension, #7. Hyperlipidemia #8. History of coronary artery disease with previous stenting #9. History of CHF, unspecified #10. History of CVA/TIA #11. Osteoarthritis #12. Chronic knee disease, unspecified #13. Chronic venous insufficiency #14. 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 Sleep apnea does not wear CPAP #17. Marijuana use #18. Elevated d-dimer related to acute COVID-19 infection, lower extremity Dopplers showed no evidence of DVT, d-dimer is improved since admission, patient is currently on twice-daily dose of Lovenox 40 mg Plan: Continue BiPAP support at bedtime, currently with pressures of 16 and 8 and FiO2 of 60% Chest x-ray today showing stable bilateral multifocal opacities Patient remains on IV Solu-Medrol, Lovenox prophylactic dose He continues on IV Lasix drip, and the dose has been dropped down to 5 mg daily by nephrology He is in negative fluid net fluid balance Continue monitoring electrolytes and his renal profile daily labs, daily BMP, daily weight Replace potassium per protocol Last night blood gas has been obtained, consistent with acute metabolic alkalosis with respiratory acidosis and acute on chronic hypokalemia has been corrected per protocol Nephrology is following Continue to follow his clinical course I performed a history & physical examination of the patient and discussed their management with my nurse practitioner, Skylar Mckoy. I reviewed the nurse pr actitioner's note and agree with the documented findings and plan of care. Lung sounds are positive for crackles and rhonchi throughout the lung [place]. The findings and the impression was discussed with the patient. I attest to the documentation by the nurse practitioner. Time with Patient: Less than 30
--- NOTE | 2021-04-02 17:55 | PN ---
PROGRESS NOTE Patient is seen for followup for acute kidney injury. Renal function has improved, with creatinine at about 1.2 to 1.3 mg/dL. Patient's serum potassium is significantly low at 2.7 today. Patient is maintained on Lasix drip which is at 10 mg/hour. Twenty- four-hour output at 1.6 L. On examination today, blood pressure is 115/44, heart rate 70 per minute. Patient is afebrile. Examination of lower extremities shows edema 2 to 3+ bilaterally. Chronic skin changes noted. 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 Labs show hemoglobin 12.9 g/dL, sodium 143, potassium 2.7, chloride 94, BUN 66, creatinine 1.3. ASSESSMENT: 1. Chronic kidney disease, stage 3. Baseline creatinine 1.2 to 1.3 secondary to diabetic kidney disease and cardiorenal syndrome. UA is benign. 2. Acute on chronic diastolic congestive heart failure. 3. Volume overload. 4. COVID-19 pneumonia. 5. Hypokalemia associated with diuresis, status post replacement. PLAN: Continue with Lasix drip; decrease to 5 mg/hour. Continue accurate I's and O's. Repeat labs in a.m. Check magnesium. MMODL / IJN: [id number] /
[2021-04-02] MEDS ORDERED: Magnesium Replacement Protocol 1 EACH MISC MISCELLANE PRN (19:07)
[2021-04-02] MEDS ORDERED: Potassium Replacement Protocol 1 EACH MISC MISCELLANE PRN (19:07)
--- NOTE | 2021-04-02 20:25 | PN ---
PROGRESS NOTE DATE OF SERVICE: 04/02/2021 This 71-year-old gentleman was admitted with acute on chronic hypoxic respiratory failure secondary to Covid-19 pneumonia. He is being closely monitored at this time. The patient is still short of breath. The patient is on ( ). The patient is on supplemental oxygen. Multiple consultants are following the patient closely. The most recent chest x-ray done today which was reviewed personally by me showed evidence of some CHF as well as the Covid-19 pneumonia. PAST MEDICAL HISTORY: Reviewed. REVIEW OF SYSTEMS: Cardiovascular system: No angina. Respiratory system: As mentioned earlier. GI: As mentioned earlier. : No dysuria. Nervous system: No numbness or weakness. CURRENT MEDICATIONS: Reviewed and include Ventolin, vitamin C, aspirin, Lasix. Doses and other medications are reviewed. PHYSICAL EXAMINATION: Patient alert and oriented x3. Pulse 80, blood pressure 120/75, respiration 21, temperature 98.2, pulse ox 98% on BiPAP. HEENT: Conjunctivae normal. Oral mucosa moist. NECK: No jugular venous distention. No lymph node enlargement. CARDIOVASCULAR: S1, S2, muffled. No S3, no S4, RESPIRATORY: Diminished breath sounds at the bases. A few scattered rhonchi. ABDOMEN: Soft, nontender. LEGS: No edema, no swelling. NERVOUS SYSTEM: No focal deficits. LABS: WBC 18.6, hemoglobin ( ). Other labs are noted. Sodium 142, potassium 2.7. ASSESSMENT: 1. Acute Covid-19 infection with acute bilateral interstitial pneumonia and acute hypoxic hypercarbic respiratory failure on BiPAP. 2. Acute on chronic hypoxic respiratory failure. 3. Leukocytosis. 4. Congestive heart failure with acute on chronic diastolic dysfunction, on Lasix drip. 5. Acute renal failure. 6. Chronic obstructive pulmonary disease acute exacerbation. 7. Mild transaminitis. 8. Elevated inflammatory markers of Covid-19. 9. Chronic kidney disease stage 3 baseline. 10.History of GERD. 11.History of coronary artery disease. 12.Diabetic peripheral neuropathy. 13.Obstructive sleep apnea. 14.Chronic hypoxic respiratory failure on home O2. 15.Hypertension. 16.Hyperlipidemia. 17.BPH. 18.Chronic low back pain. 19.History of deep vein thrombosis. 20.Severe hypokalemia. RECOMMENDATION: In this 71-year-old gentleman who presented with multiple complex medical issues, we will continue the current medications, continue symptomatic treatment. Continue with the bronchodilators. Continue the Lasix. Monitor closely. Repeat labs. Otherwise, steroids. Guarded prognosis because of multiple complex medical issues. See orders for details. Further recommendations to follow. MMODL / IJN: [id number] /
[2021-04-02 20:40] LABS: Glucose,Whole Blood 89 mg/dL (75-99)
[2021-04-02] MEDS: METOPROLOL TARTRATE 25 MG TAB PO SCH (21:11)
[2021-04-02] MEDS: PRAMIPEXOLE 1 MG TAB PO SCH (21:11)
[2021-04-02] MEDS: INSULIN DETEMIR (LEVEMIR) 100 UNIT/ML SYR SQ SCH (21:40)
[2021-04-02] MEDS: CYCLOBENZAPRINE 10 MG TAB PO PRN (23:05)
[2021-04-02] MEDS: QUEtiapine 25 MG TAB PO PRN (23:05)
[2021-04-03] MEDS: POTASSIUM CHLORIDE 10 MEQ in WATER FOR INJECTION 1 100ML.BAG IVPB SCH ×3 (00:46→03:07)
[2021-04-03 02:46] LABS: Glucose,Whole Blood 87 mg/dL (75-99)
[2021-04-03] MEDS: FUROSEMIDE 100 MG in SODIUM CHLORIDE 0.9% 90 ML IV SCH (03:25)
[2021-04-03 06:50] LABS: Glucose,Whole Blood 69 mg/dL (75-99)
[2021-04-03] MEDS: INSULIN ASPART (NovoLOG) 100 UNIT/ML VIAL SQ SCH ×8 (07:10→21:01)
[2021-04-03 07:12] LABS: Glucose,Whole Blood 62 mg/dL (75-99)
[2021-04-03 07:41] LABS: Glucose,Whole Blood 106 mg/dL (75-99)
[2021-04-03] MEDS: ALBUTEROL HFA INHALER INHALATION SCH ×4 (07:42→20:08)
[2021-04-03] MEDS: SYMBICORT 160-4.5 MCG INHALER INHALATION SCH ×2 (07:42→20:08)
[2021-04-03] MEDS ORDERED: LORazepam 2 MG/ML INJ IV STA (08:02)
[2021-04-03] MEDS: COLCHICINE 0.6 MG EACH PO SCH (08:10)
[2021-04-03] MEDS: METOPROLOL TARTRATE 50 MG TAB PO SCH (08:10)
[2021-04-03] MEDS: QUEtiapine 25 MG TAB PO SCH ×2 (08:10→21:00)
[2021-04-03] MEDS: ASPIRIN 81 MG PO SCH (08:10)
[2021-04-03] MEDS: allopurinoL 100 MG TAB PO SCH (08:10)
[2021-04-03] MEDS: TAMSULOSIN 0.4 MG CAP.ER.24H PO SCH (08:10)
[2021-04-03] MEDS: ISOSORBIDE MONONITRATE ER 30 MG TAB.ER.24H PO SCH (08:10)
[2021-04-03] MEDS: CHOLECALCIFEROL 125 MCG (5000 IU) TABLET PO SCH (08:11)
[2021-04-03] MEDS: FAMOTIDINE 20 MG TAB PO SCH (08:11)
[2021-04-03] MEDS: FLUCONAZOLE 100 MG TAB PO SCH (08:11)
[2021-04-03] MEDS: PANTOPRAZOLE 40 MG TABLET PO SCH (08:11)
[2021-04-03] MEDS: ASCORBIC ACID 500 MG TAB PO SCH ×2 (08:11→21:00)
[2021-04-03] MEDS: NYSTATIN 100,000 UNIT/ML SUSP 500,000 UNIT/5 ML CUP PO SCH ×3 (08:12→17:09)
[2021-04-03] MEDS: ZINC SULFATE 220 MG CAP PO SCH (08:12)
--- NOTE | 2021-04-03 08:36 | XR ---
EXAMINATION TYPE: XR chest 1V portable DATE OF EXAM: 04/03/2021 Comparison: 04/02/2021 Clinical History: 71-year-old male covid Findings: Heart is mildly enlarged. Worsening interstitial bilateral patchy opacities now confluent in the righ t perihilar region and left mid and lower lung. No appreciable pneumothorax. Impression: Worsening bilateral COVID pneumonia.
[2021-04-03] MEDS: ENOXAPARIN 40 MG/0.4 ML SYRINGE SQ SCH (08:42)
[2021-04-03] MEDS: LIDOCAINE 5% PATCH TOPICAL SCH (08:43)
[2021-04-03] MEDS: methylPREDNISolone SOD SUCCI 40 MG/ML 1 ML VIAL IV SCH ×2 (08:43→17:09)
[2021-04-03 09:00] LABS: Basophils % (A) 0 %; Eosinophils % (A) 0 %; HCT 39.3 % (39.0-53.0); HGB 12.7 gm/dL (13.0-17.5); Lymphocytes # (A) 0.3 k/uL (1.0-4.8); Lymphocytes % (A) 3 %; MCH 33.1 pg (25.0-35.0); MCHC 32.4 g/dL (31.0-37.0); MCV 102.3 fL (80.0-100.0); Macrocytosis Slight; Mean Platelet Volume 9.5; Monocytes # (A) 0.2 k/uL (0-1.0); Monocytes % (A) 2 %; Neutrophils # (A) 8.3 k/uL (1.3-7.7); Neutrophils % (A) 93 %; RBC 3.84 m/uL (4.30-5.90); RDW 14.5 % (11.5-15.5); WBC 8.9 k/uL (3.8-10.6)
[2021-04-03 09:14] LABS: ALT 74 U/L (4-49); AST 49 U/L (17-59); African American GFR (CKD) >90 (>60 ml/min/1.73 sqM); Albumin 2.3 g/dL (3.5-5.0); Albumin/Globulin Ratio 0.9; Alkaline Phosphatase 132 U/L (38-126); Anion Gap 4 mmol/L; Blood Urea Nitrogen 69 mg/dL (9-20); Calcium 7.9 mg/dL (8.4-10.2); Carbon Dioxide 39 mmol/L (22-30); Chloride 95 mmol/L (98-107); Globulin 2.5 g/dL; Glucose 128 mg/dL (74-99); Magnesium 1.8 mg/dL (1.6-2.3); Non-African American GFR(CKD) 79 (>60 ml/min/1.73 sqM); Potassium 3.3 mmol/L (3.5-5.1); Sodium 138 mmol/L (137-145); Total Protein 4.8 g/dL (6.3-8.2)
[2021-04-03 10:01] LABS: Band Neutrophils % 15 %; Eosinophils # (M) 0.09 k/uL (0-0.7); Metamyelocytes # (M) 0.09 k/uL (0); Metamyelocytes % 1 %; Monocytes # (M) 0.18 k/uL (0-1.0); Neutrophils % (M) 82 %; Nucleated Red Blood Cells 0 /100 WBC (0-0); Total Cells Counted 200
[2021-04-03 10:02] LABS: Anisocytosis (M) Present; Poikilocytosis (M) Present
[2021-04-03 10:03] LABS: Platelet Count 49 k/uL (150-450)
[2021-04-03 10:48] LABS: Glucose,Whole Blood 118 mg/dL (75-99)
[2021-04-03] MEDS: SODIUM CHLORIDE 0.9% 1,000 ML IV SCH (11:30)
[2021-04-03] MEDS: MORPHINE SULFATE 2 MG/ML SYRINGE IVP PRN ×4 (11:36→21:23)
[2021-04-03 11:57] LABS: ABG Base Excess 18.9 mmol/L; ABG Oxygen Saturation 93.9 % (94-97); ABG PCO2 51 mmHg (35-45); ABG PH 7.53 (7.35-7.45); ABG PO2 69 mmHg (83-108); ABG TCO2 43 mmol/L (19-24); Allen Test Performed? Yes
[2021-04-03 11:59] LABS: ABG HCO3 42 mmol/L (21-25)
[2021-04-03] MEDS ORDERED: Potassium Replacement Protocol 1 EACH MISC MISCELLANE PRN (12:31)
--- NOTE | 2021-04-03 12:41 | P.PN ---
Subjective Patient is seen in follow-up for chronic kidney disease. Renal function improved. Became more short of breath and anxious this morning. Currently on BiPAP. Transferred to the intensive care unit. Vital signs are stable. General: On BiPAP. HEENT: Head exam is unremarkable. LUNGS: Breath sounds decreased. HEART: Rate and Rhythm are regular. ABDOMEN: Soft, obese. EXTREMITITES: 1+ edema. Objective - Vital Signs Vital signs: Vital Signs Temp 97.3 F L 04/03/21 01:27 Pulse 81 04/03/21 06:00 Resp 38 H 04/03/21 06:00 BP 157/75 04/03/21 06:00 Pulse Ox 92 L 04/03/21 06:00 Intake & Output 04/02/21 04/03/21 04/03/21 18:59 06:59 18:59 Intake Total 79.667 873.667 Output Total 1120 1100 Balance -1040.333 -226.333 Weight 92.2 kg 95 kg Intake: Intake, IV Titration 79.667 473.667 Amount Furosemide 100 mg In 79.667 73.667 Sodium Chloride 0.9% 90 ml @ 5 MG/HR 5 mls/hr IV .Q20H [facility] Rx#:[id number] Potassium Chloride 10 meq 400 In Water For Injection 1 100ml.bag @ 100 mls/hr IVPB Q1HR JOSE Rx#: [id number] Oral 400 Output: Urine 1120 1100 Other: Voiding Method Urinal Urinal # Bowel Movements 1 - Labs CBC & Chem 7: 04/03/21 08:35 04/03/21 08:35 Labs: Abnormal Lab Results - Last 24 Hours (Table) 04/02/21 04/02/21 04/03/21 Range/Units 16:53 21:36 06:49 RBC (4.30-5.90) m/uL Hgb (13.0-17.5) gm/dL MCV (80.0-100.0) fL Plt Count (150-450) k/uL Neutrophils # (1.3-7.7) k/uL Neutrophils # (Manual) (1.3-7.7) k/uL Lymphocytes # (1.0-4.8) k/uL Metamyelocytes # (Man) (0) k/uL ABG pH (7.35-7.45) ABG pCO2 (35-45) mmHg ABG pO2 (83-108) mmHg ABG HCO3 (21-25) mmol/L ABG Total CO2 (19-24) mmol/L ABG O2 Saturation (94-97) % Potassium 3.3 L (3.5-5.1) mmol/L Chloride (98-107) mmol/L Carbon Dioxide (22-30) mmol/L BUN (9-20) mg/dL Glucose (74-99) mg/dL POC Glucose (mg/dL) 121 H 69 L (75-99) mg/dL Calcium (8.4-10.2) mg/dL ALT (4-49) U/L Alkaline Phosphatase (38-126) U/L Total Protein (6.3-8.2) g/dL Albumin (3.5-5.0) g/dL 04/03/21 04/03/21 04/03/21 Range/Units 07:10 07:39 08:35 RBC 3.84 L (4.30-5.90) m/uL Hgb 12.7 L (13.0-17.5) gm/dL MCV 102.3 H (80.0-100.0) fL Plt Count 49 L D (150-450) k/uL Neutrophils # 8.3 H (1.3-7.7) k/uL Neutrophils # (Manual) 8.60 H (1.3-7.7) k/uL Lymphocytes # 0.3 L (1.0-4.8) k/uL Metamyelocytes # (Man) 0.09 H (0) k/uL ABG pH (7.35-7.45) ABG pCO2 (35-45) mmHg ABG pO2 (83-108) mmHg ABG HCO3 (21-25) mmol/L ABG Total CO2 (19-24) mmol/L ABG O2 Saturation (94-97) % Potassium (3.5-5.1) mmol/L Chloride (98-107) mmol/L Carbon Dioxide (22-30) mmol/L BUN (9-20) mg/dL Glucose (74-99) mg/dL POC Glucose (mg/dL) 62 L 106 H (75-99) mg/dL Calcium (8.4-10.2) mg/dL ALT (4-49) U/L Alkaline Phosphatase (38-126) U/L Total Protein (6.3-8.2) g/dL Albumin (3.5-5.0) g/dL 04/03/21 04/03/21 04/03/21 Range/Units 08:35 10:47 11:55 RBC (4.30-5.90) m/uL Hgb (13.0-17.5) gm/dL MCV (80.0-100.0) fL Plt Count (150-450) k/uL Neutrophils # (1.3-7.7) k/uL Neutrophils # (Manual) (1.3-7.7) k/uL Lymphocytes # (1.0-4.8) k/uL Metamyelocytes # (Man) (0) k/uL ABG pH 7.53 H (7.35-7.45) ABG pCO2 51 H (35-45) mmHg ABG pO2 69 L (83-108) mmHg ABG HCO3 42 H* (21-25) mmol/L ABG Total CO2 43 H (19-24) mmol/L ABG O2 Saturation 93.9 L (94-97) % Potassium 3.3 L (3.5-5.1) mmol/L Chloride 95 L (98-107) mmol/L Carbon Dioxide 39 H (22-30) mmol/L BUN 69 H (9-20) mg/dL Glucose 128 H (74-99) mg/dL POC Glucose (mg/dL) 118 H (75-99) mg/dL Calcium 7.9 L (8.4-10.2) mg/dL ALT 74 H (4-49) U/L Alkaline Phosphatase 132 H (38-126) U/L Total Protein 4.8 L (6.3-8.2) g/dL Albumin 2.3 L (3.5-5.0) g/dL Assessment and Plan Plan: Assessment: 1. Chronic kidney disease stage III with baseline creatinine 1.2-1.3 secondary to diabetic kidney disease and cardiorenal syndrome. Renal function improved. Creatinine 0.96 today. UA benign. 2. Acute on chronic diastolic CHF. 3. Volume overload. Improving with diuresis. 4. Hypokalemia from diuresis. 5. COVID-19 pneumonia. 6. Acute hypoxic respiratory failure. On BiPAP. 7. Metabolic alkalosis from diuresis. Plan: Lasix drip stopped per training development specialist. Replace potassium. I will give him a dose of IV Diamox now. Wean FiO2. Continue to monitor renal function and urine output.
[2021-04-03] MEDS: POTASSIUM CHLORIDE ER 20 MEQ TAB.ER PO SCH ×2 (12:55→13:14)
[2021-04-03] MEDS: DEXMEDETOMIDINE/0.9% NACL(PMX) 400 MCG in EMPTY BAG 1 BAG IV SCH ×2 (12:55→19:04)
--- NOTE | 2021-04-03 14:55 | P.PN ---
Subjective Progress Note Date: 04/03/21 This is a 71-year-old male who was recently admitted with acute on chronic hypoxic respiratory failure secondary to COVID-19 pneumonia and is being closely monitored. Patient continues with extreme shortness of breath and continues on BiPAP 100% FiO2 and currently being brought to the ICU for close m onitoring for worsening shortness of breath. Patient's chest x-ray today shows worsening Covid pneumonia. Pulmonary and nephrology following closely. Patient continues on vitamin and zinc supplements along with IV steroids and subcutaneous Lovenox. Patient was given a dose of Diamox today and IV Lasix has been discontinued. Nephrology is following closely. Recommend repeat labs in the morning along with follow-up chest x-ray. Review of systems: Unable to obtain as patient is lethargic and on BIpap Labs: WBC is 8.9, hemoglobin is 12.7, platelets are 49, sodium is 138, potassium is 3. 3, BUN is 69, creatinine is 0.96, calcium is 7.9, magnesium 1.8, ABG shows pH of 7.53, pCO2 is 51, pO2 is 69, bicarb is 42, total CO2 is 43, oxygen saturation is 93.9 on 100% FiO2 Active Medications Albuterol Sulfate (Albuterol Hfa Inhaler) 2 puff INHALATION RT-QID [facility] Last Admin: 04/03/21 12:01 Dose: 2 puff Documented by: Albuterol Sulfate (Albuterol Hfa Inhaler) 2 puff INHALATION RT-QID PRN PRN Reason: Shortness Of Breath Or Wheezing Allopurinol (Allopurinol 100 Mg Tab) 200 mg PO DAILY@0700 [facility] Last Admin: 04/03/21 08:10 Dose: Not Given Documented by: Ascorbic Acid (Ascorbic Acid 500 Mg Tab) 500 mg PO BID [facility] Last Admin: 04/03/21 08:11 Dose: Not Given Documented by: Aspirin (Aspirin 81 Mg) 81 mg PO DAILY@0700 [facility] Last Admin: 04/03/21 08:10 Dose: Not Given Documented by: Budesonide/Formoterol Fumarate (Symbicort 160-4.5 Mcg Inhaler) 2 puff INHALATION RT-BID [facility] Last Admin: 04/03/21 07:42 Dose: 2 puff Documented by: Cholecalciferol (Cholecalciferol 125 Mcg (5000 Iu) Tablet) 125 mcg PO DAILY [facility] Last Admin: 04/03/21 08:11 Dose: Not Given Documented by: Colchicine (Colchicine 0.6 Mg Each) 0.6 mg PO DAILY@0700 [facility] Last Admin: 04/03/21 08:10 Dose: Not Given Documented by: Cyclobenzaprine HCl (Cyclobenzaprine 10 Mg Tab) 10 mg PO TID@0700,1200,1930 PRN PRN Reason: Muscle Spasm Last Admin: 04/02/21 23:05 Dose: 10 mg Documented by: Docusate Sodium (Docusate 100 Mg Cap) 100 mg PO BID PRN PRN Reason: Constipation Last Admin: 04/03/21 00:51 Dose: 100 mg Documented by: Enoxaparin Sodium (Enoxaparin 40 Mg/0.4 Ml Syringe) 40 mg SQ DAILY [facility] Last Admin: 04/03/21 08:42 Dose: 40 mg Documented by: Famotidine (Famotidine 20 Mg Tab) 20 mg PO DAILY [facility] Last Admin: 04/03/21 08:11 Dose: Not Given Documented by: Fluconazole (Fluconazole 100 Mg Tab) 100 mg PO DAILY [facility] Last Admin: 04/03/21 08:11 Dose: Not Given Documented by: Sodium Chloride (Saline 0.9%) 1,000 mls @ 10 mls/hr IV .Q24H [facility] Last Admin: 04/03/21 11:30 Dose: 10 mls/hr Documented by: Dexmedetomidine HCl 400 mcg/ (IV Solution) 100 mls @ 4.75 mls/hr IV .Q21H4M [facility]; Protocol Last Admin: 04/03/21 12:55 Dose: 0.2 mcg/kg/hr, 4.75 mls/hr Documented by: Insulin Aspart (Insulin Aspart (Novolog) 100 Unit/Ml Vial) 0 unit SQ [facility]; Protocol Last Admin: 04/03/21 11:27 Dose: Not Given Documented by: Insulin Aspart (Insulin Aspart (Novolog) 100 Unit/Ml Vial) 8 unit SQ [facility] Last Admin: 04/03/21 12:48 Dose: Not Given Documented by: Insulin Detemir (Insulin Detemir (Levemir) 100 Unit/Ml Syr) 45 unit SQ HS [facility] Last Admin: 04/02/21 21:40 Dose: Not Given Documented by: Isosorbide Mononitrate (Isosorbide Mononitrate Er 30 Mg Tab.Er.24h) 30 mg PO DAILY@0700 [facility] Last Admin: 04/03/21 08:10 Dose: Not Given Documented by: Lidocaine (Lidocaine 5% Patch) 1 patch TOPICAL DAILY [facility]; Protocol Last Admin: 04/03/21 08:43 Dose: 1 patch Documented by: Methylprednisolone Sodium Succinate (Methylprednisolone Sod Succi 40 Mg/Ml 1 Ml Vial) 40 mg IV Q8HR [facility] Last Admin: 04/03/21 08:43 Dose: 40 mg Documented by: Metoprolol Tartrate (Metoprolol Tartrate 25 Mg Tab) 25 mg PO HS@193 [facility] Last Admin: 04/02/21 21:11 Dose: 25 mg Documented by: Metoprolol Tartrate (Metoprolol Tartrate 50 Mg Tab) 50 mg PO DAILY@07 [facility] Last Admin: 04/03/21 08:10 Dose: Not Given Documented by: Miscellaneous Information (Magnesium Replacement Protocol 1 Each Misc) 1 each MISCELLANE DAILY PRN; Protocol PRN Reason: Per Protocol Miscellaneous Information (Potassium Replacement Protocol 1 Each Misc) 1 each MISCELLANE DAILY PRN; Protocol PRN Reason: Per Protocol Morphine Sulfate (Morphine Sulfate 2 Mg/Ml Syringe) 2 mg IVP Q4HR PRN PRN Reason: Pain/Discomfort Last Admin: 04/03/21 11:36 Dose: 2 mg Documented by: Nystatin (Nystatin 100,000 Unit/Ml Susp 500,000 Unit/5 Ml Cup) 500,000 unit PO QID [facility] Last Admin: 04/03/21 13:07 Dose: 500,000 unit Documented by: Pantoprazole Sodium (Pantoprazole 40 Mg Tablet) 40 mg PO AC-BRKFST [facility] Last Admin: 04/03/21 08:11 Dose: Not Given Documented by: Pramipexole Dihydrochloride (Pramipexole 1 Mg Tab) 1 mg PO HS@1930 [facility] Last Admin: 04/02/21 21:11 Dose: 1 mg Documented by: Quetiapine Fumarate (Quetiapine 25 Mg Tab) 25 mg PO BID@0700,1929 [facility] Last Admin: 04/03/21 08:10 Dose: Not Given Documented by: Quetiapine Fumarate (Quetiapine 25 Mg Tab) 12.5 mg PO HS PRN PRN Reason: Agitation Last Admin: 04/02/21 23:05 Dose: 12.5 mg Documented by: Tamsulosin HCl (Tamsulosin 0.4 Mg Cap.Er.24h) 0.4 mg PO DAILY@0700 [facility] Last Admin: 04/03/21 08:10 Dose: Not Given Documented by: Zinc Sulfate (Zinc Sulfate 220 Mg Cap) 220 mg PO DAILY [facility] Last Admin: 04/03/21 08:12 Dose: Not Given Documented by: Physical Exam: Gen: This is a 71-year-old male who is awake, alert and oriented 3, well- developed, well-nourished. Temp is 97.3F, pulse is 81, respirations are 38, blood pressure is 157/75, oxygen saturation is 92% on BIPAP and FiO2 of 100% HEENT: Head is atraumatic, normocephalic. Pupils equal, round. Sclerae is anicteric. NECK: Supple. No JVD. No lymphadenopathy. No thyromegaly. LUNGS: Breath sounds diminished with scattered rhonchi and crackles noted. No intercostal retractions. HEART: S1, S2 are muffled ABDOMEN: Soft. Bowel sounds are present. No masses. No tenderness. EXTREMITIES: No pedal edema. No calf tenderness. NEUROLOGICAL: Patient is awake, alert and oriented 3, diffusely weak . Assessment: Acute COVID-19 infection with acute COVID-19 bilateral interstitial pneumonia with acute hypoxic hypercarbic respiratory failure on 100% BiPAP Acute on chronic hypoxic respiratory failure Leukocytosis Congestive heart failure with acute on chronic diastolic dysfunction, on Lasix drip Acute renal failure Chronic obstructive pulmonary disease, acute exacerbation Mild transaminitis Also elevated inflammatory markers of COVID-19 Chronic kidney disease stage III baseline History of GERD History of coronary artery disease Diabetic peripheral neuropathy next line obstructive sleep apnea Chronic hypoxic respiratory failure on home O2 Bard hypertension Hyperlipidemia Benign prostatic hypertrophy Chronic low back pain History of deep vein thrombosis Severe hypokalemia Full code Plan: Recommend to continue with current medications and follow along closely with multiple medical consultations. Nephrology following closely along with pulmonary and patient continues on 100% BiPAP with severe shortness of breath. Chest x-ray today shows worsening bilateral Covid pneumonia with worsening interstitial bilateral patchy opacification is now confluent in the right periHilar region and left mid and lower lung. Patient continues with extreme dyspnea and being transferred to the ICU for close monitoring with Dr. Langford following closely. Recommend repeat labs in the a.m on a chest x-ray. Due to multiple complex medical issues prognosis is extremely guarded. Objective - Vital Signs Vital signs: Vital Signs Temp 97.3 F L 04/03/21 01:27 Pulse 81 04/03/21 06:00 Resp 38 H 04/03/21 06:00 BP 157/75 04/03/21 06:00 Pulse Ox 92 L 04/03/21 06:00 Intake & Output 04/02/21 04/03/21 04/03/21 18:59 06:59 18:59 Intake Total 79.667 873.667 Output Total 1120 1100 Balance -1040.333 -226.333 Weight 92.2 kg 95 kg Intake: Intake, IV Titration 79.667 473.667 Amount Furosemide 100 mg In 79.667 73.667 Sodium Chloride 0.9% 90 ml @ 5 MG/HR 5 mls/hr IV .Q20H [facility] Rx#:[id number] Potassium Chloride 10 meq 400 In Water For Injection 1 100ml.bag @ 100 mls/hr IVPB Q1HR [facility] Rx#: [id number] Oral 400 Output: Urine 1120 1100 Other: Voiding Method Urinal Urinal # Bowel Movements 1 - Labs CBC & Chem 7: 04/03/21 08:35 04/03/21 08:35 Labs: Abnormal Lab Results - Last 24 Hours (Table) 04/02/21 04/02/21 04/03/21 Range/Units 16:53 21:36 06:49 RBC (4.30-5.90) m/uL Hgb (13.0-17.5) gm/dL MCV (80.0-100.0) fL Plt Count (150-450) k/uL Neutrophils # (1.3-7.7) k/uL Neutrophils # (Manual) (1.3-7.7) k/uL Lymphocytes # (1.0-4.8) k/uL Metamyelocytes # (Man) (0) k/uL ABG pH (7.35-7.45) ABG pCO2 (35-45) mmHg ABG pO2 (83-108) mmHg ABG HCO3 (21-25) mmol/L ABG Total CO2 (19-24) mmol/L ABG O2 Saturation (94-97) % Potassium 3.3 L (3.5-5.1) mmol/L Chloride (98-107) mmol/L Carbon Dioxide (22-30) mmol/L BUN (9-20) mg/dL Glucose (74-99) mg/dL POC Glucose (mg/dL) 121 H 69 L (75-99) mg/dL Calcium (8.4-10.2) mg/dL ALT (4-49) U/L Alkaline Phosphatase (38-126) U/L Total Protein (6.3-8.2) g/dL Albumin (3.5-5.0) g/dL 04/03/21 04/03/21 04/03/21 Range/Units 07:10 07:39 08:35 RBC 3.84 L (4.30-5.90) m/uL Hgb 12.7 L (13.0-17.5) gm/dL MCV 102.3 H (80.0-100.0) fL Plt Count 49 L D (150-450) k/uL Neutrophils # 8.3 H (1.3-7.7) k/uL Neutrophils # (Manual) 8.60 H (1.3-7.7) k/uL Lymphocytes # 0.3 L (1.0-4.8) k/uL Metamyelocytes # (Man) 0.09 H (0) k/uL ABG pH (7.35-7.45) ABG pCO2 (35-45) mmHg ABG pO2 (83-108) mmHg ABG HCO3 (21-25) mmol/L ABG Total CO2 (19-24) mmol/L ABG O2 Saturation (94-97) % Potassium (3.5-5.1) mmol/L Chloride (98-107) mmol/L Carbon Dioxide (22-30) mmol/L BUN (9-20) mg/dL Glucose (74-99) mg/dL POC Glucose (mg/dL) 62 L 106 H (75-99) mg/dL Calcium (8.4-10.2) mg/dL ALT (4-49) U/L Alkaline Phosphatase (38-126) U/L Total Protein (6.3-8.2) g/dL Albumin (3.5-5.0) g/dL 04/03/21 04/03/21 04/03/21 Range/Units 08:35 10:47 11:55 RBC (4.30-5.90) m/uL Hgb (13.0-17.5) gm/dL MCV (80.0-100.0) fL Plt Count (150-450) k/uL Neutrophils # (1.3-7.7) k/uL Neutrophils # (Manual) (1.3-7.7) k/uL Lymphocytes # (1.0-4.8) k/uL Metamyelocytes # (Man) (0) k/uL ABG pH 7.53 H (7.35-7.45) ABG pCO2 51 H (35-45) mmHg ABG pO2 69 L (83-108) mmHg ABG HCO3 42 H* (21-25) mmol/L ABG Total CO2 43 H (19-24) mmol/L ABG O2 Saturation 93.9 L (94-97) % Potassium 3.3 L (3.5-5.1) mmol/L Chloride 95 L (98-107) mmol/L Carbon Dioxide 39 H (22-30) mmol/L BUN 69 H (9-20) mg/dL Glucose 128 H (74-99) mg/dL POC Glucose (mg/dL) 118 H (75-99) mg/dL Calcium 7.9 L (8.4-10.2) mg/dL ALT 74 H (4-49) U/L Alkaline Phosphatase 132 H (38-126) U/L Total Protein 4.8 L (6.3-8.2) g/dL Albumin 2.3 L (3.5-5.0) g/dL
--- NOTE | 2021-04-03 16:20 | P.PN ---
Subjective Progress Note Date: 04/03/21 Principal diagnosis: Dyspnea This 71-year-old white male patient who follows with Dr. Torres in the pulmonary clinic for his history of advanced COPD on home oxygen patient usually wears 4 L on a regular basis, he is prednisone dependent and usually takes 20 mg on a regular basis, coronary artery disease, diabetes mellitus type 2, previous history of CVA, hypertension, hyperlipidemia, previous history of pneumonia, chronic kidney disease unspecified, sleep apnea, BPH, osteoarthritis. Patient presented to the emergency department on 03/12/2021 for evaluation of worsening dyspnea. Patient had a fever at home up to 101.7F. He saw Dr. Torres on Friday03/09/2021 and his antibiotics were changed. Patient was also given a prednisone taper and was placed on Levaquin. Has chronic swelling in his lower extremities which is unchanged. Of note patient was tested for COVID-19 on 03/02/2021 and was found to be negative. During this visit to the ED he tested positive on 03/12/2021. Patient has been vaccinated against COVID-19. His chest x-ray shows increasing diffuse interstitial opacity, with the possibility of fluid overload/CHF, interstitial pneumonitis, atypical pneumonia or chronic pneumonia. His blood work on admission has been reviewed showing white blood cell count of 12.7, hemoglobin of 12.3, his INR 0.9, sodium is 136, potassium is 4.2, chloride is 97, CO2 31, BUN is 55, creatinine is 1.28, troponin is less than 0.012, proBNP is within normal limits at 206. Patient has been started on Decadron 6 blood gram daily which we will increase to twice daily, he was placed on albuterol and Symbicort, he is on subcutaneous heparin 5000 units every 12 h ours, and the patient is within the window for Remdesivir which she will be started on today. On 03/14/2021 patient seen in follow-up on medical surgical floor, he is breathing comfortably, she is resting in bed, no worsening dyspnea, he is currently on 12 L of oxygen his pulse ox is 92%, does have mildly congested cough, no chest discomfort, blood pressure is stable, his been afebrile. Lower extremity Dopplers showed no evidence of DVT. Today's labs have been reviewed, his white count is 16.9, hemoglobin is 12.8, sodium is 146, the rest of electrolytes are within normal limits, BUN is 40, creatinine is 1.2. LDH was 526, not significantly elevated, CRP was 13.6, follow-up in addition he remains on prophylactic dose Lovenox, he is on Decadron 6 mg twice daily. On 03/15/2021 patient seen in follow-up on medical surgical floor. He is awake and alert, he is currently on 10 L of oxygen, down from 12 L on yesterday's exam, he states his breathing is improving, his coughing less, his been afebrile, hemodynamically stable, no chest discomfort. His been ambulating about the room, tolerates activity well. Today's chest x-ray showing mild cardiomegaly, and stable diffuse interstitial changes and patchy peripheral infiltrates. Today's labs have been reviewed, his white blood cell count is 21.2, hemoglobin is 13.3, his d-dimer is improved and is down to 1.23, sodium is 146, the rest of the electrolytes are within normal limits, BUN is 44, creatinine is 1.3. His LDH is 625, slightly increased from most previous value of 526, CRP is improved and is down to 4.7 on today's labs, pro-calcitonin level is negative 2 at 0.16, and 0.19. Blood cultures have shown no growth. He cur rently continues on Decadron 6 mg twice daily, he is on Lovenox 40 mg once daily, he is on IV Lasix 40 mg every 12 hours, and we started him on the Remdesivir yesterday and today is day 3 of treatment. On 03/16/2021 patient seen in follow-up on medical surgical floor, he is awake and alert, in no acute distress, he states his breathing is about the same, not any worse, however his oxygen demand has increased to 15 L, his pulse ox is 88- 90%, his been afebrile, blood pressures been stable, denies any chest discomfort, no hemoptysis, lung sounds reveal scattered crackles mostly at bilateral bases, his chest x-ray from yesterday showed mild cardiomegaly, diffuse interstitial changes. Patient has been on IV Lasix 40 mg twice daily unfortunately has not fluid balance is very difficult to estimate, his lower extremity edema appears to be slightly better. He continues on Remdesivir, and today is day 4 of treatment. Today's labs have been reviewed, his white count is improving and is down to 16.5, hemoglobin is 12.4, his d-dimer was improving on yesterday's labs, and was down to 1.23, patient remains on prophylactic dose Lovenox 40 mg daily, BUN is 47, creatinine is 1.3, potassium is 3.8, sodium is 141, pro-calcitonin level was negative 2. Blood cultures were negative 2. On 03/18/2021 patient seen in follow-up on medical surgical floor. Patient was noted to be desaturating on high flow nasal cannula and nonrebreather mask due to the low 80s, and he was initially placed on Airvo at 60 L and FiO2 of 90% in addition to a nonrebreather mask and his pulse ox is only 90%. Clinically he states he feels like his breathing is getting better, he looks comfortable, does not appear to be in any acute distress, not using accessory muscles of breathing, he finished his course of Remdesivir, he currently remains on Decadron 6 mg twice daily, Lovenox 20 mg once daily, she denies any chest discomfort, denies any hemoptysis. Today's labs have been reviewed, his white blood cell count is relatively stable at 16.3, hemoglobin is 13.2, his d-dimer is 1.01, sodium is 145, potassium is 4.5, chloride is 101, BUN is 54 creatinine is 1.5., His LDH is stable at 643, and CRP is improved and is down to 1.7, his pro-calcitonin level was negative on 05/16/2020 at 0.19. Blood cultures show no growth. On 03/19/2021 patient seen in follow-up on medical surgical floor, today he is on Airvo at 55 L and FiO2 of 88% in addition to nonrebreather mask, and his pulse ox is 90-91%, and as such his oxygenation requirement has increased He denies worsening dyspnea, he states he is breathing fairly comfortably, minimal wheezing on today's exam, yesterday we switched his IV steroids to IV Solu- Medrol 60 mg every 6 hours, less wheezing, less coughing, no crackles noted. His last chest x-ray from yesterday on 03/18/2021 showed stable cardio megaly, stable diffuse interstitial changes and patchy mid to lower lung peripheral infiltrates likely related to COVID-19 pneumonia. Currently patient is on Baricitinib, IV Solu-Medrol 60 mg every 6 hours, he is on IV Lasix 40 mg every 8 hours, Lovenox 40 mg once daily, he is on home dose colchicine 0.6 mg daily. Vital signs have been stable, his been afebrile. Mild edema in bilateral lower extremities. Today's labs have been reviewed, white blood cell count is improving and is down to 12.5, hemoglobin is 13.4, his neutrophil count is 11.1, leukocyte count of 0.7, electrolytes are unremarkable, B1 is 58 creatinine is 1.4, renal profile slightly improved from yesterday, nephrology is following, his inflammatory markers slightly improved and LDH is down to 612, and CRP is 1.3. On 03/20/2021 patient seen in follow-up on medical surgical floor. He is awake and alert, in no acute distress although still requiring high flow oxygen. He is sitting up in the recliner, currently on Airvo at 55 L and FiO2 of 88% in addition to 100% nonrebreather mask. His lung sounds are improved, he is less wheezy, no rhonchi, less congested, and he feels like his breathing is improving. Occasional cough, no significant phlegm production. Patient's nonrebreather mask was removed, and patient is maintaining O2 saturations at 95% on just Airvo at 55 L and FiO2 of 85%. Afebrile. Currently patient is on Baricitinib, IV Solu-Medrol 60 mg every 6 hours, he is on IV Lasix 40 mg every 12 hours, Lovenox 40 mg once daily, he is on home dose colchicine 0.6 mg daily. Vital signs have been stable, his been afebrile. Mild edema in bilateral lower extremities. No new chest x-ray today. Patient continues to diurese, he is in -880 mL net fluid balance over the last 24 hours, lower extremity edema is improving, breathing is improving. Today's labs have been reviewed, sodium is 138, potassium is 3.8, chloride is 97, CO2 is 34, B1 is 66 creatinine 1.3. On 03/26/2021 patient seen in follow-up on medical surgical floor. He is resting comfortably in the recliner, he remains on Airvo by 1574%, he is not requiring nonrebreather mask, breathing comfortably, he responds appropriately, does not appear to be in any acute distress, no complaint of chest pain, lung sounds are positive for diffuse rhonchi, still has mild chest congestion. Currently remains on Symbicort, Ventolin, he is on IV steroids 60 mg every 6 hours of Solu-Medrol, Baricitinib remains on hold related to low ALC which is at 0.2. Today's labs have been reviewed, his white blood cell count is improving and is down to 15, hemoglobin is 14.3, sodium is 140, potassium 3.7, chloride is 96, CO2 is 40, B1 is 56 creatinine is 1.14. His Lovenox is a 40 mg daily, she remains on IV diuretics with Lasix 40 mg every 12 hours. No worsening swelling in bilateral lower extremities, overall lower extremity edema has significantly improved, no net fluid balance is available for this shift. Overall his weight is down by 1.9 kg over last 24-48 hours. on 03/27/2021 patient seen in follow-up on medical surgical floor. Remains on Airvo down to 45 L and FiO2 of 73%, his pulse ox is 92-93%, he does desaturate and has exertional dyspnea. Afebrile. no complaints of chest discomfort, overall seems to be improving. today's labs have been reviewed. White count is improved and is down to 14, hemoglobin is 14, d-dimer is 1.1, sodium is 139, potassium 3.4, BUN is 53, and creatinine is 1.05. Baricitinib remains on hold, and absolute lymphocyte count remains low at 0.2. Continues on Lovenox 40 mg daily, continues on multivitamins and IV steroids at 60 mg every 6 hours.nephrology is following and his IV Lasix has been replaced with torsemide.he is in -1050 ML note fluid balance over the last 24 hours On 03/28/2021 patient seen in follow-up on medical surgical floor, he is cu rrently on Airvo at 40 L and 74%, breathing comfortably, his pulse ox is 88-90%, breathing comfortable, denies any worsening dyspnea no cough, last night patient apparently got very short of breath, desaturated, she required a nonrebreather mask. He had since recovered, he was taken off the nonrebreather mask, breathing much more comfortably. He states he gets short of breath usually late at night, he does have obstructive sleep apnea however he does not wear a CPAP at a regular basis at home. Baricitinib remains on hold, today's blood work is still pending to check on his ALC. Patient continues on IV Solu-Medrol 60 g every 6 hours, Lovenox 40 mg daily, he is on Symbicort, albuterol, his IV Lasix has been switched over to Demadex per nephrology. He still has significant lower extremity edema. Today's labs have been reviewed, white blood cell count is 15.6, hemoglobin is 14.5, sodium is 143, potassium 3.7, chloride is 97, BUN is 51, creatinine is 1.2, proBNP level is 720. Patient is in -1050 ML in upload balance over the last 24 hours. No complaints of chest discomfort. Follow-up chest x-ray has been obtained showing chronic changes with bilateral multifocal opacities without significant change compared the most previous chest x-ray On 03/29/2021 patient seen in follow-up on medical surgical floor. He is sitting up in the recliner, breathing comfortably, remains on Airvo currently at 40 L and FiO2 of 73%, and pulse ox is 93%, breathing comfortably, we ordered the patient BiPAP last night however Respiratory therapy did not apply it for unclear reasons. No acute events overnight, patient is breathing fairly comfortably, no worsening cough, lung sounds reveal a few scattered rhonchi and rales, no wheezing, no complaint of chest discomfort. Patient continues on Symbicort, Lovenox, continues on Demadex 20 mg daily and IV steroids with Solu- Medrol 60 mg every 6 hours. Appetite is fair. His weight is down by 1.8 kg in the last 24 hours, lower extremity edema is improving. Today's chest x-ray showing bilateral patchy and interstitial "infiltrates without significant change. Today's labs have been reviewed, his d-dimer is improving and is down to 0.93, sodium is 145, potassium 3.7, chloride is 96, B1 is 58, creatinine is 1.2, inflammatory markers are improving, LDH is down to 530, and CRP is 1.1. On 03/30/2021 patient seen in follow-up on medical surgical floor. He is currently on Airvo at 25 L and FiO2 of 60%, breathing comfortably, he is improvi ng, and he is being switched over to regular high flow nasal cannula at 15 L, BiPAP support was not applied on the patient last night, however patient could benefit from BiPAP support at bedtime knowing his history of COPD and obstructive sleep apnea and fluid overload, on today's exam his lower extremity edema has significantly increased, nephrology is following and starting him on Lasix infusion at 10 mg per hour. Lung sounds are positive for diffuse rhonchi, patient states she is not bringing up any phlegm, denies any chest pain, his been afebrile, denies any hemoptysis. He remains on IV Solu-Medrol 60 mg every 6 hours, he remains on inhaled bronchodilators Baricitinib remains on hold. Today's labs have been reviewed, his white count is 16.27, his hemoglobin is 13.9, sodium is 142, potassium is 3.9, chloride is 95, BUN is 67, creatinine is 1.4. His inflammatory markers are improving and his LDH is down to 597, and CRP is 0.90. On 04/01/2021 patient seen in follow-up on medical surgical floor, he is currently on 15 L of oxygen, his pulse ox is 90%, he is breathing comfortably, still sounds congested, lung sounds are positive for diffuse rhonchi, he states he is not able to bring up much phlegm, his lower extremities remains swollen, they were [place] wrapped per nephrology recommendations, however he still has significant lower extremity edema, he remains on Lasix infusion at 10 mg per hour, and he is in -1.6 L net fluid balance over the last 24 hours, he continues on BiPAP support at night with pressures of 12 and 6, and FiO2 of 60%, no fever or chills, no complaints of chest discomfort. He remains on Symbicort, albuterol, he remains on IV Solu-Medrol 40 mg every 8 hours, today's labs have been reviewed, his sodium is 147, potassium is 3.7, chloride is 93, his BUN is 57.8, and creatinine is 1.2, nephrology is following, and patient is on 1500 mL water restriction. No fever or chills, his blood cultures have been negative. He is currently on Diflucan, no other antibiotics On 04/02/2021 patient seen in follow-up on medical surgical floor. He is currently on BiPAP support, and the staff thought the patient was supposed to be on BiPAP [id number], however it was only ordered for bedtime. No worsening dyspnea, patient is able to tolerate nasal cannula, and he was actually tolerating high flow nasal cannula trials at 15 L, Airvo was discontinued, he is awake and alert, denies any worsening dyspnea, no chest pain, lung sounds reveal diminished breath sounds with some diffuse crackles, no fever, blood pressures been stable, he remains on Lasix infusion at 10 mg per hour, nephrology is following and managing the Lasix infusion and Lasix was dropped down to 5 mg daily. Today's labs have been reviewed. White blood cell count is improving and is down to 15.6, hemoglobin is 12.9, d-dimer is 1, sodium is 143, potassium is 2.7, this was replaced per protocol, BUN is 66, creatinine is 1.3, his LFTs are improving, AST is 31, ALT is 91, alk phos is 154, LDH is down to 507, CRP is actually increased and is up to 23.4. His blood cultures have shown no growth. Patient currently remains on inhaled bronchodilators, and remains on IV Solu-Medrol 40 mg every 8 hours. Chest x-ray today shows stable diffuse patchy bilateral infiltrates. On 04/03/2021 patient became more short of breath, he is in quite a bit of discomfort from back pain, patient was noted to be desaturating on high flow device, and he was placed on BiPAP with pressures of 15/6 and FiO2 has been increased to 70%. He continued to moan, he has a congested cough, no phlegm production, he remains on Lasix at 5 mg per hour, however clinically he is appearing very dry, lower extremity edema has resolved, and patient has developed significant wrinkling of his skin in bilateral lower feet. Mucous membranes are dry, patient remains on IV Solu-Medrol at 40 mg every 8 hours, he remains on Symbicort, Ventolin, he is on Lovenox 40 mg daily. His chest x-ray this morning was reviewed showing worsening bilateral COVID-19 pneumonia with worsening interstitial bilateral patchy opacities now confluent in the right perihilar region and left mid and lower lung. No evidence of pneumothorax. Subsequently in view of increased work of breathing and hypoxia he was transferred to the intensive care unit for closer monitoring, blood gas has been obtained showing pO2 of 69, pCO2 of 51, and pH of 7.53 and this was done on the above-mentioned BiPAP settings with FiO2 of 100%. Subsequently his Lasix drip has been discontinued, patient did receive a dose of Diamox, and he received IV morphine for acute back pain, and started on Precedex infusion for restlessness and agitation. Currently doing a little better, calmer, more compliant with the BiPAP support. The rest of his blood work is reviewed, his white blood cell count is 8.9, hemoglobin is 12.7, his last d-dimer from yesterday was 1.0, sodium was 138, potassium 3.3, chloride is 95, CO2 39, BUN 16, creatinine 0.96. His net fluid balance over the last 24 hours is -1.2 L. Objective - Vital Signs Vital signs: Vital Signs Temp 100.5 F H 04/03/21 12:00 Pulse 103 H 04/03/21 14:50 Resp 25 H 04/03/21 14:50 BP 129/73 04/03/21 14:50 Pulse Ox 90 L 04/03/21 14:50 Intake & Output 04/02/21 04/03/21 04/03/21 18:59 06:59 18:59 Intake Total 79.667 873.667 120 Output Total 1120 1100 445 Balance -1040.333 -226.333 -325 Weight 92.2 kg 95 kg Intake: Intake, IV Titration 79.667 473.667 Amount Furosemide 100 mg In 79.667 73.667 Sodium Chloride 0.9% 90 ml @ 5 MG/HR 5 mls/hr IV .Q20H JOSE Rx#:[id number] Potassium Chloride 10 meq 400 In Water For Injection 1 100ml.bag @ 100 mls/hr IVPB Q1HR JOSE Rx#: [id number] Oral 400 120 Output: Urine 1120 1100 445 Other: Voiding Method Urinal Urinal # Bowel Movements 1 - Exam GENERAL EXAM: Alert, but in moderate to severe amount of distress from his back pain, and difficulty breathing, 71-year-old white male, currently on BiPAP support with pressures of 16/8 and FiO2 of 100%, she has been transferred to the intensive care unit for closer monitoring, he was medicated for pain, started on Precedex, he continues on his previous therapies including IV steroids, diuretics have been discontinued, multivitamins, and anticoagulation HEAD: Normocephalic/atraumatic. EYES: Normal reaction of pupils, equal size. Conjunctiva pink, sclera white. NOSE: Clear with pink turbinates. THROAT: No erythema or exudates. NECK: No masses, no JVD, no thyroid enlargement, no adenopathy. CHEST: No chest wall deformity. Symmetrical expansion. LUNGS: Equal air entry with diffuse crackles, and a few rhonchi CVS: Regular rate and rhythm, normal S1 and S2, no gallops, no murmurs, no rubs ABDOMEN: Soft, nontender. No hepatosplenomegaly, normal bowel sounds, no guarding or rigidity. EXTREMITIES: No clubbing, 2+ plus lower extremity edema with chronic venous stasis significant improvement, and now there is wrinkling of skin on bilateral feet no cyanosis, 2+ pulses and upper and lower extremities. MUSCULOSKELETAL: Muscle strength and tone normal. SPINE: No scoliosis or deformity SKIN: No rashes CENTRAL NERVOUS SYSTEM: Alert and oriented -3. No focal deficits, tone is normal in all 4 extremities. PSYCHIATRIC: Alert and oriented -3. Appropriate affect. Intact judgment and insight. - Labs CBC & Chem 7: 04/03/21 08:35 04/03/21 08:35 Labs: Abnormal Lab Results - Last 24 Hours (Table) 04/02/21 04/02/21 04/03/21 Range/Units 16:53 21:36 06:49 RBC (4.30-5.90) m/uL Hgb (13.0-17.5) gm/dL MCV (80.0-100.0) fL Plt Count (150-450) k/uL Neutrophils # (1.3-7.7) k/uL Neutrophils # (Manual) (1.3-7.7) k/uL Lymphocytes # (1.0-4.8) k/uL Metamyelocytes # (Man) (0) k/uL ABG pH (7.35-7.45) ABG pCO2 (35-45) mmHg ABG pO2 (83-108) mmHg ABG HCO3 (21-25) mmol/L ABG Total CO2 (19-24) mmol/L ABG O2 Saturation (94-97) % Potassium 3.3 L (3.5-5.1) mmol/L Chloride (98-107) mmol/L Carbon Dioxide (22-30) mmol/L BUN (9-20) mg/dL Glucose (74-99) mg/dL POC Glucose (mg/dL) 121 H 69 L (75-99) mg/dL Calcium (8.4-10.2) mg/dL ALT (4-49) U/L Alkaline Phosphatase (38-126) U/L Total Protein (6.3-8.2) g/dL Albumin (3.5-5.0) g/dL 04/03/21 04/03/21 04/03/21 Range/Units 07:10 07:39 08:35 RBC 3.84 L (4.30-5.90) m/uL Hgb 12.7 L (13.0-17.5) gm/dL MCV 102.3 H (80.0-100.0) fL Plt Count 49 L D (150-450) k/uL Neutrophils # 8.3 H (1.3-7.7) k/uL Neutrophils # (Manual) 8.60 H (1.3-7.7) k/uL Lymphocytes # 0.3 L (1.0-4.8) k/uL Metamyelocytes # (Man) 0.09 H (0) k/uL ABG pH (7.35-7.45) ABG pCO2 (35-45) mmHg ABG pO2 (83-108) mmHg ABG HCO3 (21-25) mmol/L ABG Total CO2 (19-24) mmol/L ABG O2 Saturation (94-97) % Potassium (3.5-5.1) mmol/L Chloride (98-107) mmol/L Carbon Dioxide (22-30) mmol/L BUN (9-20) mg/dL Glucose (74-99) mg/dL POC Glucose (mg/dL) 62 L 106 H (75-99) mg/dL Calcium (8.4-10.2) mg/dL ALT (4-49) U/L Alkaline Phosphatase (38-126) U/L Total Protein (6.3-8.2) g/dL Albumin (3.5-5.0) g/dL 04/03/21 04/03/21 04/03/21 Range/Units 08:35 10:47 11:55 RBC (4.30-5.90) m/uL Hgb (13.0-17.5) gm/dL MCV (80.0-100.0) fL Plt Count (150-450) k/uL Neutrophils # (1.3-7.7) k/uL Neutrophils # (Manual) (1.3-7.7) k/uL Lymphocytes # (1.0-4.8) k/uL Metamyelocytes # (Man) (0) k/uL ABG pH 7.53 H (7.35-7.45) ABG pCO2 51 H (35-45) mmHg ABG pO2 69 L (83-108) mmHg ABG HCO3 42 H* (21-25) mmol/L ABG Total CO2 43 H (19-24) mmol/L ABG O2 Saturation 93.9 L (94-97) % Potassium 3.3 L (3.5-5.1) mmol/L Chloride 95 L (98-107) mmol/L Carbon Dioxide 39 H (22-30) mmol/L BUN 69 H (9-20) mg/dL Glucose 128 H (74-99) mg/dL POC Glucose (mg/dL) 118 H (75-99) mg/dL Calcium 7.9 L (8.4-10.2) mg/dL ALT 74 H (4-49) U/L Alkaline Phosphatase 132 H (38-126) U/L Total Protein 4.8 L (6.3-8.2) g/dL Albumin 2.3 L (3.5-5.0) g/dL Assessment and Plan Plan: Assessment: #1. Acute on chronic hypoxic respiratory failure related to acute COVID-19 related pneumonia, patient tested positive on 03/12/2021. Patient is vaccinated against COVID-19. His symptoms have worsened over last week, patient will be started on Remdesivir today on 03/13/2021, patient completed Remdesivir on 03/17/2021. Patient was weaned off the Airvo on 03/30/2021, currently on 15 L per high flow nasal cannula and BiPAP support at night with pressures of 16/8 and FiO2 of 60%. On 04/03/2021 patient's dyspnea and hypoxia became worse, and he was transferred to the intensive care unit. #2. Acute exacerbation of COPD #3. Chronic COPD, advanced, with a baseline FEV1 of 1.71 L or FEV1 of 58% usually on home oxygen at 4 L #4. Recent 2 hospitalizations for acute exacerbation of COPD in early February, during which patient tested negative for COVID-19, urinalysis was also negative, influenza A and B were negative #5. Diabetes mellitus type 2 #6. Hypertension, #7. Hyperlipidemia #8. History of coronary artery disease with previous stenting #9. History of CHF, unspecified #10. History of CVA/TIA #11. Osteoarthritis #12. Chronic knee disease, unspecified #13. Chronic venous insufficiency #14. 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 Sleep apnea does not wear CPAP #17. Marijuana use #18. Elevated d-dimer related to acute COVID-19 infection, lower extremity Dopplers showed no evidence of DVT, d-dimer is improved since admission, patient is currently prophylactic dose Lovenox 40 mg once daily #19. Acute fluid overload, improved, patient has received IV diuretics, and the last 48 hours he was on Lasix drip, had significant improvement in his net fluid balance, and overall fluid volume status and now appears to be clinically dehydrated. Lasix was discontinued, patient required Diamox for evidence of volume contraction alkalosis Plan: Patient has been transferred to the intensive care unit Blood gases were obtained and reviewed Lasix has been discontinued, patient received a dose of Diamox Continue BiPAP support at bedtime, currently with pressures of 16 and 8 and FiO2 of 100% Chest x-ray today showing worsening bilateral multifocal opacities Continue with IV steroids, prophylactic Lovenox We will obtain pancultures including blood culture, urinalysis with reflex to culture and possibly sputum culture if the patient is able to produce a Send a follow-up pro-calcitonin level Follow-up blood work for tomorrow including CBC, CMP, inflammatory markers, d- dimer Follow-up chest x-ray for tomorrow Obtain midline catheters for IV infusions Overall prognosis is guarded Continue to follow his clinical course I performed a history & physical examination of the patient and discussed their management with my nurse practitioner, Skylar Mckoy. I reviewed the nurse practitioner's note and agree with the documented findings and plan of care. Lung sounds are positive for crackles and rhonchi throughout the lung [place]. The findings and the impression was discussed with the patient. I attest to the documentation by the nurse practitioner. Time with Patient: Less than 30
[2021-04-03 17:02] VITALS: TEMP 100.3
[2021-04-03 17:41] LABS: Glucose,Whole Blood 182 mg/dL (75-99)
[2021-04-03] MEDS ORDERED: CISATRACURIUM 2 MG/ML 5 ML VIAL IV ONE (17:51)
[2021-04-03] MEDS ORDERED: propofoL 100 ML IV ONE (17:51)
[2021-04-03] MEDS ORDERED: SUCCINYLCHOLINE CHLORIDE VIAL 200 MG/10 ML VIAL IV ONE (17:53)
[2021-04-03] MEDS ORDERED: MORPHINE SULFATE (100 MG/2 ML) 100 MG in SODIUM CHLORIDE 0.9% 100 ML IV SCH (18:00)
[2021-04-03] MEDS ORDERED: SCOPOLAMINE 1.5MG/72HR PATCH TRANSDERM SCH (18:00)
--- NOTE | 2021-04-03 18:27 | P.PN ---
Progress Note - Text Progress Note Date: 04/03/21 This is an addendum to the patient. Earlier by the nurse practitioners regarding the care of this patient. The patient got transferred to the intensive care unit because of hypoxic respiratory failure and further decompensation respiratory status. The patient was placed on a BiPAP for respiratory support at a pressure of 16/8 cm of water with an FiO2 of 100%. He was quite restless and agitated and the patient was started on Precedex to control agitation maintain synchrony with the BiPAP machine. Subsequently, his condition further decompensated. He became more lethargic and he started having episodes of oxygen desaturations. Based on overall clinical picture, my initial plan was to proceed with intubation mechanical ventilation. I contacted the and I had a lengthy discussion with her regarding his condition. I updated her on the condition. Based on our discussion with the , I was informed that the patient and his are not interested in further support including respirators on mechanical ventilation. She has already visited the earlier during the day and the has made it clear to her that he needed no further support and he just wanted to go home meaning he wanted to be left comfortable. Based on our discussion, I thought he claims made by the patient and his were quite reasonable. I agreed on providing end-of-life care to this patient. I asked the patient's to come in to the hospital again and once the family arrives, we are going to proceed with end-of-life care in this patient. He carries a very poor prognosis. The patient had progressive worsening and hypoxemic respiratory failure, failed various measures of res piratory support and treatment offered for COVID 19 related pneumonia.
[2021-04-03] MEDS: METOPROLOL TARTRATE 25 MG TAB PO SCH (20:59)
[2021-04-03] MEDS: PRAMIPEXOLE 1 MG TAB PO SCH (21:00)
[2021-04-03] MEDS: INSULIN DETEMIR (LEVEMIR) 100 UNIT/ML SYR SQ SCH (21:02)
[2021-04-04 00:19] VITALS: BP 113/64; PULSE 123; RESP 15
[2021-04-04] MEDS: NYSTATIN 100,000 UNIT/ML SUSP 500,000 UNIT/5 ML CUP PO SCH (00:22)
--- NOTE | 2021-04-04 10:00 | P.DS ---
Providers Date of admission: 03/12/21 17:13 Expected date of discharge: 04/04/21 Attending physician: Dax Pizarro Consults: 03/12/21 17:13 Consult Physician Routine Consulting Provider: Shanna Langford Consult Reason/Comments: dyspnea, covid,copd Do you want consulting provider notified?: Yes 03/18/21 10:54 Consult Physician Routine Consulting Provider: Ruth De Los Santos Consult Reason/Comments: EMEKA Do you want consulting provider notified?: Yes Primary care physician: [facility] Course: Preliminary cause of Acute COVID-19 bilateral interstitial pneumonia with acute hypoxic hypercarbic respiratory failure Final diagnosis Acute COVID-19 infection with acute COVID-19 bilateral interstitial pneumonia with acute hypoxic hypercarbic respiratory failure on 100% BiPAP Acute on chronic hypoxic respiratory failure Leukocytosis Congestive heart failure with acute on chronic diastolic dysfunction, on Lasix Acute renal failure Chronic obstructive pulmonary disease, acute exacerbation Mild transaminitis Also elevated inflammatory markers of COVID-19 Chronic kidney disease stage III baseline History of GERD History of coronary artery disease Diabetic peripheral neuropathy next line obstructive sleep apnea Chronic hypoxic respiratory failure on home O2 [place] hypertension Hyperlipidemia Benign prostatic hypertrophy Chronic low back pain History of deep vein thrombosis Severe hypokalemia No code Discharge disposition Patient has on 04/04/2021 and according to nursing documentation time of was 005. Family was present. Hospital course This is a 71-year-old male who was admitted with acute on chronic hypoxic respiratory failure secondary to COVID-19 pneumonia being closely monitored. Patient's respiratory status continued to be critical and was on 100% BiPAP and continued to have shortness of breath. Pulmonary automobile service writer following closely and patient was brought to the ICU for close monitoring and respiratory status continued to decline and family was notified and requesting comfort measures as spouse stated patient would not want to be intubated. Dr. Langford discussed at length with the family and comfort measures placed and family at bedside. Patient on 04/04/2021 at 0059. Please refer to previous dictations and automobile service writer documentation for further HPI. Patient Condition at Discharge: Poor Plan - Discharge Summary Discharge Rx Participant: No New Discharge Prescriptions: No Action Omeprazole 20 mg PO DAILY@0700 Tamsulosin [Flomax] 0.4 mg PO DAILY@0700 Aspirin EC [Ecotrin Low Dose] 81 mg PO DAILY@0700 Colchicine 0.6 mg PO DAILY@07 Magnesium 250 mg PO DAILY@07 Isosorbide Mononitrate [Isosorbide Mononitrate ER] 30 mg PO DAILY@07 Nitroglycerin Sl Tabs [Nitrostat] 0.4 mg SL Q5M PRN PRN Reason: Chest Pain QUEtiapine [SEROquel] 25 mg PO BID@699,1929 Metoprolol Tartrate [Lopressor] 25 mg PO HS@1929 Ketorolac 0.5% Ophth Soln [Acular 0.5%] 1 drop LEFT EYE QID Cyclobenzaprine [Flexeril] 10 mg PO TID@07,1199,1929 Febuxostat [Uloric] 40 mg PO DAILY@07 hydrALAZINE HCL 50 mg PO TID #0 Budesonide-Formot 160-4.5 Mcg [Symbicort 160-4.5 Mcg Inhaler] 2 puff INHALATION RT-BID 30 Days #1 gm Levofloxacin [Levaquin] 500 mg PO DAILY Ergocalciferol [Vitamin D2 (1250 Mcg = 85353 Iu)] 1,250 mcg PO Q14D Pramipexole [Mirapex] 1 mg PO HS@193 Metoprolol Tartrate [Lopressor] 50 mg PO DAILY@07 calcitrioL [Rocaltrol] 0.5 mcg PO TU Albuterol Inhaler [Ventolin Hfa Inhaler] 2 puff INHALATION RT-QID PRN PRN Reason: Shortness Of Breath Furosemide [Lasix] 20 mg PO BID@699,1929 #0 Ipratropium-Albuterol Nebulize [Duoneb 0.5 mg-3 mg/3 ml Soln] 3 ml INHALATION RT-Q4H PRN ml PRN Reason: shortness of breath INSULIN ASPART (NovoLOG) [NovoLOG (formulary)] 10 unit SQ ACHS 30 Days #5 ml predniSONE [Deltasone] 20 mg PO DAILY@0700 #0 Insulin Glargine,Hum.rec.anlog [Lantus Solostar Pen] 55 unit SQ HS@1930 PRN #0 PRN Reason: IF BLOOD SUGAR IS OVER 120 predniSONE See Taper PO DAILY Discharge Medication List Omeprazole 20 mg PO DAILY@0700 11/23/19 [History] Tamsulosin [Flomax] 0.4 mg PO DAILY@69911/23/19 [History] Aspirin EC [Ecotrin Low Dose] 81 mg PO DAILY@69912/09/19 [History] Colchicine 0.6 mg PO DAILY@69903/23/20 [History] Magnesium 250 mg PO DAILY@69903/23/20 [History] Isosorbide Mononitrate [Isosorbide Mononitrate ER] 30 mg PO DAILY@69906/15/20 [History] Nitroglycerin Sl Tabs [Nitrostat] 0.4 mg SL Q5M PRN 06/15/20 [History] Ergocalciferol [Vitamin D2 (1250 Mcg = 84111 Iu)] 1,250 mcg PO Q14D 08/21/20 [History] Albuterol Inhaler [Ventolin Hfa Inhaler] 2 puff INHALATION RT-QID PRN 02/22/21 [History] Cyclobenzaprine [Flexeril] 10 mg PO TID@07,1199,192902/22/21 [History] Febuxostat [Uloric] 40 mg PO DAILY@69902/22/21 [History] Ketorolac 0.5% Ophth Soln [Acular 0.5%] 1 drop LEFT EYE QID 02/22/21 [History] Metoprolol Tartrate [Lopressor] 25 mg PO HS@192902/22/21 [History] Metoprolol Tartrate [Lopressor] 50 mg PO DAILY@69902/22/21 [History] Pramipexole [Mirapex] 1 mg PO HS@192902/22/21 [History] QUEtiapine [SEROquel] 25 mg PO BID@699,192902/22/21 [History] calcitrioL [Rocaltrol] 0.5 mcg PO TU 02/22/21 [History] Furosemide [Lasix] 20 mg PO BID@699,1929 #0 02/24/21 [Rx] hydrALAZINE HCL 50 mg PO TID #0 02/24/21 [Rx] Budesonide-Formot 160-4.5 Mcg [Symbicort 160-4.5 Mcg Inhaler] 2 puff INHALATION RT-BID 30 Days #1 gm 03/05/21 [Rx] INSULIN ASPART (NovoLOG) [NovoLOG (formulary)] 10 unit SQ ACHS 30 Days #5 ml 03/05/21 [Rx] Insulin Glargine,Hum.rec.anlog [Lantus Solostar Pen] 55 unit SQ HS@1930 PRN #0 03/05/21 [Rx] Ipratropium-Albuterol Nebulize [Duoneb 0.5 mg-3 mg/3 ml Soln] 3 ml INHALATION RT-Q4H PRN ml 03/05/21 [Rx] predniSONE [Deltasone] 20 mg PO DAILY@0700 #0 03/05/21 [Rx] Levofloxacin [Levaquin] 500 mg PO DAILY 03/12/21 [History] predniSONE See Taper PO DAILY 03/12/21 [History] Follow up Appointment(s)/Referral(s): Rk Keene III, MD [Primary Care Provider] - 1-2 days [facility], [NON-STAFF] - As Needed [facility], [NON-STAFF] - As Needed Discharge Disposition: - Preliminary Cause of Preliminary Cause of : Acute COVID-19 bilateral interstitial pneumonia with acute hypoxic hypercar
== END 2021-04-04 05:32 | disposition expired | DRG 871 ==
LOC: EC 14:26 → 4SSUR 17:13 → 2SICU 04-03 10:41
PROVIDERS: ADMIT Internal Medicine; ATTEND Internal Medicine
PROC: XW033E5 Introduction of Remdesivir Anti-infective into Peripheral Vein, Percutaneous Approach, New Technology Group 5 (ICD-10-PCS; principal; 2021-03-18)
PROC: XW0DXM6 Introduction of Baricitinib into Mouth and Pharynx, External Approach, New Technology Group 6 (ICD-10-PCS; 2021-03-18)
PROC: 5A0955A Assistance with Respiratory Ventilation, Greater than 96 Consecutive Hours, High Flow/Velocity Cannula (ICD-10-PCS; 2021-03-21)
PROC: 5A09457 Assistance with Respiratory Ventilation, 24-96 Consecutive Hours, Continuous Positive Airway Pressure (ICD-10-PCS; 2021-04-02)
DX: A41.9 Sepsis, unspecified organism (principal); U07.1 COVID-19; J12.82 Pneumonia due to coronavirus disease 2019; J96.21 Acute and chronic respiratory failure with hypoxia; I50.33 Acute on chronic diastolic (congestive) heart failure; N17.0 Acute kidney failure with tubular necrosis; J96.22 Acute and chronic respiratory failure with hypercapnia; I13.0 Hypertensive heart and chronic kidney disease with heart failure and stage 1 through stage 4 chronic kidney disease, or unspecified chronic kidney disease; J44.1 Chronic obstructive pulmonary disease with (acute) exacerbation; J44.0 Chronic obstructive pulmonary disease with (acute) lower respiratory infection; E87.3 Alkalosis; B37.0 Candidal stomatitis; Z51.5 Encounter for palliative care; Z66 Do not resuscitate; E11.22 Type 2 diabetes mellitus with diabetic chronic kidney disease; N18.30 Chronic kidney disease, stage 3 unspecified; Z96.1 Presence of intraocular lens; Z96.652 Presence of left artificial knee joint; Z96.611 Presence of right artificial shoulder joint; K21.9 Gastro-esophageal reflux disease without esophagitis; M19.90 Unspecified osteoarthritis, unspecified site; N40.0 Benign prostatic hyperplasia without lower urinary tract symptoms; E87.6 Hypokalemia; J30.9 Allergic rhinitis, unspecified; I25.10 Atherosclerotic heart disease of native coronary artery without angina pectoris; E78.5 Hyperlipidemia, unspecified; E11.42 Type 2 diabetes mellitus with diabetic polyneuropathy; E83.51 Hypocalcemia; T50.2X5A Adverse effect of carbonic-anhydrase inhibitors, benzothiadiazides and other diuretics, initial encounter; Y92.230 Patient room in hospital as the place of occurrence of the external cause; R79.1 Abnormal coagulation profile; G89.29 Other chronic pain; G47.33 Obstructive sleep apnea (adult) (pediatric); F12.90 Cannabis use, unspecified, uncomplicated; I87.2 Venous insufficiency (chronic) (peripheral); M54.50 Low back pain, unspecified; T38.0X5A Adverse effect of glucocorticoids and synthetic analogues, initial encounter; Z79.4 Long term (current) use of insulin; Z79.51 Long term (current) use of inhaled steroids; Z79.52 Long term (current) use of systemic steroids; Z79.82 Long term (current) use of aspirin; Z79.899 Other long term (current) drug therapy; Z86.718 Personal history of other venous thrombosis and embolism; Z86.73 Personal history of transient ischemic attack (TIA), and cerebral infarction without residual deficits; Z87.891 Personal history of nicotine dependence; Z95.5 Presence of coronary angioplasty implant and graft; Z98.890 Other specified postprocedural states; Z86.010 Personal history of colon polyps; Z98.42 Cataract extraction status, left eye; Z98.41 Cataract extraction status, right eye; Z99.81 Dependence on supplemental oxygen; Z88.6 Allergy status to analgesic agent; Z82.3 Family history of stroke; Z82.49 Family history of ischemic heart disease and other diseases of the circulatory system
CPT/HCPCS: 36410; 36415; 36600; 71045; 71046; 76770; 76937; 80048; 80053; 81003; 82805; 83605; 83615; 83735; 83880; 84132; 84145; 84484; 85025; 85027; 85379; 85610; 85730; 86140; 87040; 87502; 87635; 93005; 93970; 94640; 94660; 94760; 99285